=== PATIENT | male | born 1945 | race Hispanic/Latino ===

== ENCOUNTER 2018-01-04 13:33 | Emergency (ER) | payer OTHER ==
--- OUTSIDE RECORDS SUMMARY | 2018-01-04 13:36 | XMS REPORT ---
:1945 Author Organization [facility] Address [address] [place] [address] Care Team Providers Name Role Phone HECTOR MORE Unavailable Unavailable Problems This patient has no known problems. Allergies, Adverse Reactions, Alerts This patient has no known allergies or adverse reactions. Medications This patient has no known medications. Results Test Description Test Time Test Comments Text Results Atomic Results Result Comments BUNNY PETERSON, 2017-09-[address] FINAL REPORT PATIENT A-V GRAFT 14:11:00 tunneled dialysis ID: [id number] catheterReason for History: End-stage exam:->Clotted renal disease, fistula thrombosed left approximately AV fistula. PROCEDURE: Following informed written consent, the patient's left upper cavity and fistula site were prepped and draped in the usual sterile manner. 2% lidocaine was given locally for anesthesia. No conscious sedation was administered. Access was gained to the right upper extremity fistula using ultrasound guidance and a single site. AV fistulogram and central venography were performed through the micropuncture sheath. A Berenstein catheter and Glidewire were then used to traverse the cephalic vein and select the superior vena cava. The Glidewire exchanged the catheter for an Amplatz wire. A 7 Egyptian sheath was placed at the access site. Mechanical thrombectomy of the fistula was achieved using a Trerotola device and an eight 8 mm x 3 cm balloon. Repeat venography was performed. Eight and 10 mm balloon dilatation of residual stenoses described below was performed at at least four distinct locations along the margins of the patient's indwelling stents. Repeat venography was performed following balloon dilatation. The catheters and sheath were then removed and hemostasis achieved using a 2-0 chromic pursestring suture. Overall, the patient tolerated the procedure well without immediate complications and was discharged from the department in stable condition. FINDINGS: Ultrasound images of the left upper extremity fistula prior to percutaneous access demonstrates mostly occluded fistula with only a small residual patent component near the arterial anastomosis. A significant amount filling defect is seen within the fistula consistent with clot. Initial central venogram demonstrates patent central left subclavian, and brachiocephalic veins without central venous stenosis. Superior vena cava is also patent. Following mechanical thrombectomy of the fistula, fistula is recanalized with brisk flow. Moderate to high-grade focal marginal stenoses are seen on each side of the patient's existing Central left cephalic vein stent. Additionally, there are marginal stenoses on each side of the indwelling stents in the patient's primary draining cephalic vein more distally near the arterial anastomosis. Following balloon dilatation of these lesions, there is significant angiographic improvement in appearance and flow across the lesions without significant residual stenosis identified. IMPRESSION: 1. Successful uncomplicated mechanical thrombolysis of the patient's left upper extremity AV fistula. Marginal stenoses were seen on each side of the patient's indwelling cephalic vein stents, one proximal the other distal as described above. These lesions were treated using eight and 10 mm balloons without significant residual or complications. Total fluoroscopy time: 13.9 minutes. Estimated total patient dose reported as (Ka,r): 45 mGy Signed: Mariah [place] Verified Date/Time: 09/18/2017 14:11:58 Reading Location: [place] [address] Angio Body Reading Room -GLUCOSE METER 2017-09-17 13:43:00 Test Item Value Reference Range Comments POC-GLUCOSE METER (BEAKER) (test 76 mg/dL 70-[address] [facility] [address] [facility] zgym=4134) [facility] [address] HEMOGLOBIN [id number] 08:02:00 Test Item Value Reference Range Comments HEMOGLOBIN A1C (BEAKER) (test fsyx=581) 7.0 % 4.3-6.1 BASIC METABOLIC [id number] 07:34:00 Test Item Value Reference Range Comments SODIUM (BEAKER) (test 140 meq/L 136-145 nptc=779) POTASSIUM (BEAKER) (test 5.0 meq/L 3.5-5.1 zzqe=625) CHLORIDE (BEAKER) (test 101 meq/L 98-107 fbxb=410) CO2 (BEAKER) (test 22 meq/L 22-29 hqlp=016) BLOOD UREA NITROGEN 87 mg/dL 7-21 (BEAKER) (test mslz=904) CREATININE (BEAKER) (test 10.99 mg/dL 0.57-1.25 ahbi=261) GLUCOSE RANDOM (BEAKER) 87 mg/dL 70-105 (test lzlq=404) CALCIUM (BEAKER) (test 7.8 mg/dL 8.4-10.2 dtxo=120) EGFR (BEAKER) (test 5 mL/min/1.73 sq m ESTIMATED GFR IS NOT ttet=7314) ACCURATE CREATININE CLEARANCE IN PREDICTING GLOMERULAR FILTRATION RATE. ESTIMATED GFR IS NOT APPLICABLE FOR DIALYSIS PATIENTS. [id number] 07:28:00 Test Item Value Reference Range Comments PHOSPHORUS (BEAKER) (test vrgu=873) 6.0 mg/dL 2.3-4.7 [id number] 07:28:00 Test Item Value Reference Range Comments MAGNESIUM (BEAKER) (test ilap=841) 2.3 mg/dL 1.6-2.6 CALCIUM, [id number] 07:18:00 Test Item Value Reference Range Comments CALCIUM IONIZED (BEAKER) (test ysqk=045) 1.00 mmol/L 1.12-1.27 PH, BLOOD (BEAKER) (test fduk=0805) 7.27 HEPATITIS B SURFACE [id number] 07:11:00 Test Item Value Reference Range Comments HEPATITIS B SURFACE ANTIGEN (2) (BEAKER) (test Nonreactive Nonreactive otxr=2367) Pls add to specimen drawn earlier.POCT-GLUCOSE [id number] 07:06:00 Test Item Value Reference Range Comments POC-GLUCOSE METER (BEAKER) 118 mg/dL 70-[address] [facility] [address] [facility] (test gdiu=7417) [facility] [address] PROTHROMBIN [id number] 06:14:00 Test Item Value Reference Range Comments PROTIME (BEAKER) (test hmuw=792) 14.2 seconds 11.7-14.7 INR (BEAKER) (test coaz=060) 1.1 <=5.9 RECOMMENDED COUMADIN/WARFARIN INR THERAPY RANGESSTANDARD DOSE: 2.0 - 3.0 Includes: PROPHYLAXIS forvenous thrombosis, systemic embolization; TREATMENT for venous thrombosis and/or pulmonary embolus.HIGH RISK: Target INR is 2.5-3.5 for patients with mechanical heart valves.CBC W/PLT COUNT & AUTO [id number] 06:04:00 Test Item Value Reference Range Comments WHITE BLOOD CELL COUNT (BEAKER) (test thig=872) 5.7 K/ L 3.5-10.5 RED BLOOD CELL COUNT (BEAKER) (test rses=507) 3.78 M/ L 4.63-6.08 HEMOGLOBIN (BEAKER) (test ewvw=534) 13.0 GM/DL 13.7-17.5 HEMATOCRIT (BEAKER) (test mcth=469) 39.4 % 40.1-51.0 MEAN CORPUSCULAR VOLUME (BEAKER) (test ppym=921) 104.2 fL 79.0-92.2 MEAN CORPUSCULAR HEMOGLOBIN (BEAKER) (test 34.4 pg 25.7-32.2 gvlw=055) MEAN CORPUSCULAR HEMOGLOBIN CONC (BEAKER) (test 33.0 GM/DL 32.3-36.5 ysld=026) RED CELL DISTRIBUTION WIDTH (BEAKER) (test 14.1 % 11.6-14.4 zaly=409) PLATELET COUNT (BEAKER) (test alkv=995) 82 K/CU MM 150-450 MEAN PLATELET VOLUME (BEAKER) (test styj=582) 13.3 fL 9.4-12.4 NUCLEATED RED BLOOD CELLS (BEAKER) (test 0 /100 WBC 0-0 ispx=358) NEUTROPHILS RELATIVE PERCENT (BEAKER) (test 62 % dkid=158) LYMPHOCYTES RELATIVE PERCENT (BEAKER) (test 23 % xxte=424) MONOCYTES RELATIVE PERCENT (BEAKER) (test 11 % nogc=084) EOSINOPHILS RELATIVE PERCENT (BEAKER) (test 4 % jair=293) BASOPHILS RELATIVE PERCENT (BEAKER) (test 1 % mcei=608) NEUTROPHILS ABSOLUTE COUNT (BEAKER) (test 3.53 K/ L 1.78-5.38 fldh=502) LYMPHOCYTES ABSOLUTE COUNT (BEAKER) (test 1.30 K/ L 1.32-3.57 tehw=894) MONOCYTES ABSOLUTE COUNT (BEAKER) (test myro=227) 0.62 K/ L 0.30-0.82 EOSINOPHILS ABSOLUTE COUNT (BEAKER) (test 0.22 K/ L 0.04-0.54 getx=334) BASOPHILS ABSOLUTE COUNT (BEAKER) (test ckkn=502) 0.03 K/ L 0.01-0.08 IMMATURE GRANULOCYTES-RELATIVE PERCENT (BEAKER) 1 % 0-1 (test rboi=5283) POCT-GLUCOSE [id number] 22:23:00 Test Item Value Reference Range Comments POC-GLUCOSE METER (BEAKER) 185 mg/dL 70-110 TESTED AT [address] (test rmaj=0171) [place] [address] POCT-GLUCOSE [id number] 21:27:00 Test Item Value Reference Range Comments POC-GLUCOSE METER (BEAKER) 198 mg/dL 70-110 TESTED AT [address] (test xwgq=0081) [place] [address] POCT-GLUCOSE [id number] 17:43:00 Test Item Value Reference Range Comments POC-GLUCOSE METER (BEAKER) 164 mg/dL 70-110 TESTED AT [address] (test gcur=5794) [place] [address] HEPATITIS B SURFACE [id number] 15:14:00 Test Item Value Reference Range Comments HEPATITIS B SURFACE ANTIGEN (2) (BEAKER) (test Nonreactive Nonreactive gpjk=0692) Pls add to specimen drawn earlier.BASIC METABOLIC [id number] 13:34:00 Test Item Value Reference Range Comments SODIUM (BEAKER) (test 140 meq/L 136-145 xqag=379) POTASSIUM (BEAKER) (test 5.4 meq/L 3.5-5.1 ylwz=498) CHLORIDE (BEAKER) (test 101 meq/L 98-107 xrnu=953) CO2 (BEAKER) (test 19 meq/L 22-29 ymau=956) BLOOD UREA NITROGEN 123 mg/dL 7-21 (BEAKER) (test yich=191) CREATININE (BEAKER) (test 12.96 mg/dL 0.57-1.25 gmsb=512) GLUCOSE RANDOM (BEAKER) 79 mg/dL 70-105 (test kptg=345) CALCIUM (BEAKER) (test 7.9 mg/dL 8.4-10.2 hubz=009) EGFR (BEAKER) (test 4 mL/min/1.73 sq m ESTIMATED GFR IS NOT jmzo=1612) ACCURATE CREATININE CLEARANCE IN PREDICTING GLOMERULAR FILTRATION RATE. ESTIMATED GFR IS NOT APPLICABLE FOR DIALYSIS PATIENTS. [id number] 13:24:00 Test Item Value Reference Range Comments MAGNESIUM (BEAKER) (test dmcz=496) 2.3 mg/dL 1.6-2.6 [id number] 13:24:00 Test Item Value Reference Range Comments PHOSPHORUS (BEAKER) (test bkxh=914) 6.2 mg/dL 2.3-4.7 POCT-GLUCOSE [id number] 12:20:00 Test Item Value Reference Range Comments POC-GLUCOSE METER (BEAKER) 84 mg/dL 70-[address] [facility] [address] [facility] (test bwja=6883) [facility] [address] ANG, NON-TUNNELED CATH >5 Y.O. [id number] 11:23:00Reason for exam:-> please declot the AV fistula, if unable to do that he needs catheter exchangeFINAL REPORT Nontunneled dialysis catheter insertion, 09/16/2017. History: Left upper extremity AV fistula thrombosed. Modality: Fluoroscopy and sonography. Sedation: None. Supervisor Electronics Testing: Edgar Chandler MD. Contract Loader: None. Approach: Right internal jugular vein Estimated blood loss: < 5 cc. Specimen: None. Fluoroscopy Time : 0.4 min.Reference Air Kerma (Ka, r): 4.9 mGy. Technique: Informed written consent was obtained. Discussion of risks, benefits, and alternatives were made with the patient. The patient expressed understanding and agreed to proceed. A universal timeout was performed prior to starting the procedure. All elements maximal sterile barrier technique was utilized for this procedure, including utilization of sterile scrub solution for skin prep, a large sterile sheet to cover the areas of the patient that were notprepped, and hand hygiene, mask, head covering, and sterile gown for performing radiologist and scrub technologist. The skin was anesthetized with 2% lidocaine. Ultrasound evaluation showed a patent and compressible internal jugular vein, which was punctured under direct real-time ultrasound guidance with a micropuncture needle. An ultrasound image was saved to PACS. A microwire and sheath were placed. A 0.035 inch wire was placed through the sheath into the right atrium. The tract was serially dilated. The 15 cm Schon temporary dialysis catheter was placed over the wire into the vein. The ports were flushed and aspirated easily following placement. The catheter was sutured to the skin to secure its placement. Vital signs were monitored throughout the procedure by a nurse, and remained stable. The patient tolerated the procedure well and left the department in the same condition. Results: Spot radiograph of the chest demonstrates the new dialysis catheter to lie in the expected position with its tip overlying the superior right atrium. Impression: Successful, uncomplicated placement of a right internal jugular nontunneled dialysis catheter using sonographic and fluoroscopic guidance. Signed: Edgar Chandler MDReport Verified Date/Time: 2017 11:23:57 Reading Location: [place] [address] AngioBody Reading Room POCT- GLUCOSE [id number] 07:38:00 Test Item Value Reference Range Comments POC-GLUCOSE METER (BEAKER) 89 mg/dL 70-110 TESTED AT [address] (test rzbd=5495) [place] [address] PROTHROMBIN [id number] 05:19:00 Test Item Value Reference Range Comments PROTIME (BEAKER) (test cjaq=557) 14.8 seconds 11.7-14.7 INR (BEAKER) (test vnuh=339) 1.2 <=5.9 RECOMMENDED COUMADIN/WARFARIN INR THERAPY RANGESSTANDARD DOSE: 2.0 - 3.0 Includes: PROPHYLAXIS forvenous thrombosis, systemic embolization; TREATMENT for venous thrombosis and/or pulmonary embolus.HIGH RISK: Target INR is 2.5-3.5 for patients with mechanical heart valves.POCT-GLUCOSE [id number] 23:26:00 Test Item Value Reference Range Comments POC-GLUCOSE METER (BEAKER) 261 mg/dL 70-[address] [facility] [place] [facility] (test xvrq=8562) [place] [address]
--- OUTSIDE RECORDS SUMMARY | 2018-01-04 13:36 | XMS REPORT | Clinical Summary ---
:[address] [facility] Address [address] [place] [address] Phone Care Team Providers Name Role Phone Unavailable Primary Care Provider Unavailable Allergies No Known Allergies Current Medications Prescription Sig. Disp. Refills Start Date End Date Status carbidopa-levodopa Take 1 tablet by Active (SINEMET) 25-100 mg per mouth 2 (two) times tabletIndications: daily. Parkinsonism clopidogrel (PLAVIX) 75 Take 75 mg by mouth Active mg tablet daily. aspirin 81 MG EC tablet Take 81 mg by mouth Active daily. citalopram (CELEXA) 10 MG Take 10 mg by mouth Active tablet daily. esomeprazole (NEXIUM) 40 Take 40 mg by mouth Active mg packet every morning before breakfast. gabapentin (NEURONTIN) Take 100 mg by Active 100 MG capsule mouth 2 (two) times daily. pravastatin (PRAVACHOL) Take 40 mg by mouth Active 40 MG tablet daily. pregabalin (LYRICA) 50 MG Take 50 mg by mouth Active capsule daily. calcium acetate (PHOSLO) Take 667 mg by Active 667 mg capsule mouth daily. Active Problems Problem Noted Date Dialysis AV fistula malfunction ([facility]) 09/15/2017 ESRD (end stage renal disease) ([facility]) Encounters Date Type Specialty Care Team Description 09/15/2017 - Hospital Encounter General Internal Bakari, Malfunction of 09/17/2017 Medicine ella Gutierrez MD dialysis fistula, [place], initial encounter Kimberly Samuel, ([facility]);Essential hypertension;ESRD Iliana Cowart, (end stage renal MD disease) on dialysis ([facility]);Cdy-ohbdsuw-dca endent diabetes mellitus with neurological complications ([facility]);Other hyperlipidemia;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 Family History Medical History Relation Name Comments Diabetes Daughter Diabetes Daughter Diabetes Mother Hypertension Son Diabetes Son Relation Name Status Comments Daughter Daughter Mother Son Son Social History Tobacco Use Types Packs/Day Years Used Date Current Every Day Smoker Cigarettes 50 Smokeless Tobacco: Never Used Alcohol Use Drinks/Week oz/Week Comments No 20 years since last drink Sex Assigned at Date Recorded Not on file Last Filed Vital Signs Vital Sign Reading Time Taken Blood Pressure 120/64 09/17/2017 8:39 PM ACID PATROLLER Pulse 92 09/17/2017 8:39 PM ACID PATROLLER Temperature 36.6 C (97.8 F) 09/17/2017 8:39 PM ACID PATROLLER Respiratory Rate 19 09/17/2017 8:39 PM ACID PATROLLER Oxygen Saturation 94% 09/17/2017 8:39 PM ACID PATROLLER Inhaled Oxygen Concentration - - Weight 80.9 kg (178 lb 4 oz) 09/17/2017 6:00 AM ACID PATROLLER Height 170.2 cm (5' 7") 09/17/2017 6:00 AM ACID PATROLLER Body Mass Index 27.92 09/17/2017 6:00 AM ACID PATROLLER Plan of Treatment Not on file Results EKG-SCANNED (09/19/2017 9:40 AM)RHYTHM STRIP - SCAN (09/19/2017 9:40 AM) Hemodialysis (09/17/2017 7:54 PM) Narrative Elan Valdez RN 09/17/20177:54 PM Lab Results Component Value Date WBC 5.7 09/17/2017 HGB 13.0 (L) 09/17/2017 HCT 39.4 (L) 09/17/2017 MCV 104.2 (H) 09/17/2017 PLT 82 (L) 09/17/2017 Lab Results Component Value Date GLUCOSE 87 09/17/2017 CALCIUM 7.8 (L) 09/17/2017 NA 140 09/17/2017 K 5.0 09/17/2017 CO2 22 09/17/2017 CL 101 09/17/2017 BUN 87 (H) 09/17/2017 CREATININE 10.99 (H) 09/17/2017 Lab Results Component Value Date HEPBSAG Nonreactive 09/17/2017 Vitals: 09/17/17 1905 BP: 105/67 Pulse: 86 Resp: 16 Temp: 97.8 F (36.6 C) SpO2: HD x 3.5hrs. UF net 2L. Treatment tolerated well. Acute Dialysis cath removed, pressure applied, dressing applied. Report given Charles Franco POC-Glucose meter (09/17/2017 1:41 PM)Only the most recent of8 resultswithin the time period is included. Component Value Ref Range POC-Glucose Meter 76Comment: TESTED AT [facility] [address] [place] [address] 70 - 110 mg/dL [address] Specimen Performing Laboratory Blood [facility] [address] [address] IR Thromobolysis/Declot AV Fistula/Graft (09/17/2017 12:07 PM) Specimen Performing Laboratory GE RIS Narrative FINAL REPORT History: End-stage renal disease, thrombosed left approximately AV fistula. PROCEDURE: Following [...] catheter for an Amplatz wire. A 7 [place] Sudanese sheath was placed at the access site. [...] reported as (Ka,r): 45 mGy Signed: Mariah Choi MD Report Verified Date/Time:09/18/2017 14:11:58 Reading Location: [place] [id number] Angio Body Reading Room Procedure Note Interface, External Ris In - 09/18/2017 2:14 PM ACID PATROLLER FINAL REPORT History: End-stage renal disease, thrombosed left approximately AV fistula. PROCEDURE: Following [...] catheter for an Amplatz wire. A 7 [place] Sudanese sheath was placed at the access site. [...] reported as (Ka,r): 45 mGy Signed: Mariah Choi MD Report Verified Date/Time: 09/18/2017 14:11:58 Reading Location: [place] [address] Angio Body Reading Room Calcium, Ionized (09/17/2017 5:40 AM) Component Value Ref Range Calcium, Ion 1.00 (L) 1.12 - 1.27 mmol/L pH, Blood 7.27 Specimen Performing Laboratory Blood - Arm, Right [address] [address] CBC with platelet count + automated diff (09/17/2017 5:40 AM) Component Value Ref Range WBC 5.7 3.5 - 10.5 K/L RBC 3.78 (L) 4.63 - 6.08 M/L Hemoglobin 13.0 (L) 13.7 - 17.5 GM/DL Hematocrit 39.4 (L) 40.1 - 51.0 % MCV 104.2 (H) 79.0 - 92.2 fL MCH 34.4 (H) 25.7 - 32.2 pg MCHC 33.0 32.3 - 36.5 GM/DL RDW 14.1 11.6 - 14.4 % Platelets 82 (L) 150 - 450 K/CU MM MPV 13.3 (H) 9.4 - 12.4 fL nRBC 0 0 - 0 /100 WBC % Neutros 62 % % Lymphs 23 % % Monos 11 % % Eos 4 % % Baso 1 % # Neutros 3.53 1.78 - 5.38 K/L # Lymphs 1.30 (L) 1.32 - 3.57 K/L # Monos 0.62 0.30 - 0.82 K/L # Eos 0.22 0.04 - 0.54 K/L # Baso 0.03 0.01 - 0.08 K/L Immature Granulocytes-Relative 1 0 - 1 % Specimen Performing Laboratory Blood - Arm, [address] [address] Hepatitis B surface antigen (09/17/2017 5:40 AM)Only the most recent of2 resultswithin the time period is included. Component Value Ref Range hepatitis B Surface Ag Nonreactive Nonreactive Specimen Performing Laboratory Blood - Arm, [place] [address] Narrative Pls add to specimen drawn earlier. Prothrombin time/INR (09/17/2017 5:40 AM)Only the most recent of2 resultswithin the time period is included. Component Value Ref Range Protime 14.2 11.7 - 14.7 seconds INR 1.1 <=5.9 Specimen Performing Laboratory Blood - Arm, [address] [address] Narrative RECOMMENDED COUMADIN/WARFARIN INR THERAPY RANGES STANDARD DOSE: 2.0 - 3.0 Includes: PROPHYLAXIS for venous thrombosis, systemic embolization; TREATMENT for venous thrombosis and/or pulmonary embolus. HIGH RISK: Target INR is 2.5-3.5 for patients with mechanical heart valves. CBC with platelet count + automated diff (09/17/2017 5:40 AM) Specimen Performing Laboratory Blood Narrative The following orders were created for panel order CBC with platelet count + automated diff. Procedure Abnormality Status --------- ------ CBC with platelet count ...[[id number]]AbnormalFinal result Please view results for these tests on the individual orders. Phosphorus (09/17/2017 5:40 AM)Only the most recent of2 resultswithin the time period is included. Component Value Ref Range Phosphorus 6.0 (H) 2.3 - 4.7 mg/dL Specimen Performing Laboratory Blood - Arm, [address] [address] Magnesium (09/17/2017 5:40 AM)Only the most recent of2 resultswithin the time period is included. Component Value Ref Range Magnesium 2.3 1.6 - 2.6 mg/dL Specimen Performing Laboratory Blood - Arm, [address] [address] Hemoglobin A1c (09/17/2017 5:40 AM) Component Value Ref Range Hemoglobin A1C 7.0 (H) 4.3 - 6.1 % Specimen Performing Laboratory Blood - Arm, [address] [address] Basic metabolic panel (09/17/2017 5:40 AM)Only the most recent of2 resultswithin the time period is included. Component Value Ref Range Sodium 140 136 - 145 meq/L Potassium 5.0 3.5 - 5.1 meq/L Chloride 101 98 - 107 meq/L CO2 22 22 - 29 meq/L BUN 87 (H) 7 - 21 mg/dL Creatinine 10.99 (H) 0.57 - 1.25 mg/dL Glucose 87 70 - 105 mg/dL Calcium 7.8 (L) 8.4 - 10.2 mg/dL EGFR 5Comment: ESTIMATED GFR IS NOT ACCURATE CREATININE mL/min/1.73 sq m CLEARANCE IN PREDICTING GLOMERULAR FILTRATION RATE. ESTIMATED GFR IS NOT APPLICABLE FOR DIALYSIS PATIENTS. Specimen Performing Laboratory Blood - Arm, [address] [address] IR Non-tunneled Catheter - Central Line/Kieran Temporary (09/16/2017 11:19 AM) Specimen Performing Laboratory GE RIS Narrative FINAL REPORT Nontunneled dialysis catheter insertion, 09/16/2017. History: Left upper extremity AV fistula thrombosed. Modality: Fluoroscopy and sonography. Sedation: None. Licensed Optical Dispenser:Edgar Chandler MD. Molded Candles Wicker:None. Approach: Right internal jugular vein Estimated blood loss:< 5 cc. Specimen: None. Fluoroscopy Time: 0.4 min. Reference Air Kerma (Ka, r): 4.9 mGy. Technique: Informed written consent was obtained. Discussion of risks, benefits, and alternatives were made with the patient. The patient expressed understanding and agreed to proceed.A universal timeout was performed prior to starting the procedure.All elements maximal sterile barrier technique was utilized for this procedure, including utilization of sterile scrub solution for skin prep, a large sterile sheet to cover the areas of the patient that were not prepped, and hand hygiene, mask, head covering, and sterile gown for performing radiologist and scrub technologist. The skin was anesthetized with 2% lidocaine. Ultrasound evaluation showed a patent and compressible internal jugular vein, which was punctured under direct real-time ultrasound guidance with a micropuncture needle.An ultrasound image was saved to PACS. A microwire and sheath were placed. A 0.035 inch wire was placed through the sheath into the right atrium. The tract was serially dilated. The 15 cm Schon temporary dialysis catheter was placed over the wire into the vein.The ports were flushed and aspirated easily following placement.The catheter was sutured to the skin to secure its placement.Vital signs were monitored throughout the procedure by a nurse, and remained stable.The patient tolerated the procedure well and left the department in the same condition. Results:Spot radiograph of the chest demonstrates the new dialysis catheter to lie in the expected position with its tip overlying the superior right atrium. Impression: Successful, uncomplicated placement of a right internal jugular nontunneled dialysis catheter using sonographic and fluoroscopic guidance. Signed: Edgar Chandler MD Report Verified Date/Time:09/16/2017 11:23:57 Reading Location: [place] [address] Angio Body Reading Room Procedure Note Interface, External Ris In - 09/16/2017 11:26 AM ACID PATROLLER FINAL REPORT Nontunneled dialysis catheter insertion, 09/16/2017. History: Left upper extremity AV fistula thrombosed. Modality: Fluoroscopy and sonography. Sedation: None. Licensed Optical Dispenser: Edgar Chandler MD. Molded Candles Wicker: None. Approach: Right internal jugular vein Estimated blood loss: < 5 cc. Specimen: None. Fluoroscopy Time: 0.4 min. Reference Air Kerma (Ka, r): 4.9 mGy. Technique: [...] the areas of the patient that were not prepped, and hand hygiene, mask, head covering, and [...] sonographic and fluoroscopic guidance. Signed: Edgar Chandler MD Report Verified Date/Time: 09/16/2017 11:23:57 Reading Location: [place] [address] Angio Body Reading Room after 01/03/2017
--- NOTE | 2018-01-04 15:28 | RAD REPORT ---
EXAM DESCRIPTION: RAD - Chest Single View - 01/04/2018 2:48 pm CLINICAL HISTORY: Chest pain, bleeding from right-sided port site COMPARISON: September 14 TECHNIQUE: AP portable chest image was obtained 1430 hours . FINDINGS: Lung volumes are low accentuating heart, vasculature and lung markings. This could mask th e earliest stages of an interstitial edema or infiltrate process. No peripheral consolidation or mass . No diffuse pulmonary edema at this time. Trachea is midline. Heart size is normal. Vasculature is a ccentuated by portable technique and shallow inspiration. No measurable pleural effusion and no pneum othorax. No gross bony abnormality seen. No acute aortic findings suspected. IMPRESSION: Limited shallow inspiration not significantly different from prior imaging.
--- NOTE | 2018-01-04 15:53 | EDPHYS ---
Physician Documentation [facility] Name: Nadir Mendez Age: 72 yrs Sex: Male : 1945 Arrival Date: 01/04/2018 Time: 13:37 Bed 16 Private MD: Ganesh Bauman ED Physician Mansoor Villavicencio HPI: 01/04 14:25 This 72 yrs old Male presents to ER via Ambulatory with complaints of Dialysis cp site problem. 14:25 Patient presents to ED for recheck of: right upper chest. cp 14:25 Patient reports having port removed from right upper chest 2 days ago. Requesting check cp of wound. Historical: - Allergies: 13:43 No Known Drug Allergies; hj - Home Meds: 13:43 aspirin 81 mg Oral TbEC [Active]; calcium acetate 667 mg Oral cap [Active]; Calcium hj Carbonate Oral 2 tabs three times a day [Active]; carbidopa-levodopa 25-100 mg Oral tab [Active]; carvedilol 25 mg Oral tab 1 tab 2 times per day [Active]; Celexa 10 mg Oral tab 1 tab once daily [Active]; gabapentin 100 mg Oral cap 3 times per day [Active]; Hemocyte 324 mg (106 mg iron) Oral tab daily [Active]; Hemocyte-Plus 106 mg iron- 1 mg Oral cap 1 cap once daily [Active]; Nexium 20 mg Oral cpDR 1 cap once daily [Active]; Plavix 75 mg Oral tab 1 tab once daily [Active]; pravastatin 40 mg Oral tab 1 tab once daily [Active]; Tums 200 mg calcium (500 mg) Oral chew [Active]; - PMHx: 13:43 Diabetes - NIDDM; Dialysis; Hyperlipidemia; Hypertension; Renal Disease; Tues, Thurs, hj Sat; Ulcers; - PSHx: 13:43 port placement; fistula; hj - Immunization history:: Adult Immunizations unknown. - Social history:: Smoking status: Patient/guardian denies using tobacco. ROS: 14:30 Constitutional: Negative for body aches, chills, fever, poor PO intake. cp 14:30 Neck: Negative for pain with movement, pain at rest, stiffness. cp 14:30 Cardiovascular: Negative for chest pain, palpitations. 14:30 Respiratory: Negative for cough, shortness of breath, wheezing. 14:30 Abdomen/GI: Negative for abdominal pain, nausea, vomiting, and diarrhea. 14:30 Skin: Negative for erythema. 14:30 All other systems are negative. Exam: 14:35 Constitutional: The patient appears in no acute distress, alert, awake, non-toxic, well cp developed, well nourished. 14:35 Head/Face: Normocephalic, atraumatic. cp 14:35 Eyes: Periorbital structures: appear normal, Conjunctiva: normal, no exudate, no injection, Lids and lashes: appear normal, bilaterally. 14:35 ENT: External ear(s): are unremarkable, Nose: is normal, Mouth: is normal. 14:35 Chest/axilla: Inspection: noted suture in place right upper chest wall, minimal bleeding noted, minimal swelling, non-tender. 14:35 Cardiovascular: Rate: normal. 14:35 Respiratory: the patient does not display signs of respiratory distress, Respirations: normal, no use of accessory muscles, no retractions, no splinting, no tachypnea, labored breathing, is not present, Breath sounds: are clear throughout, no decreased breath sounds, no stridor, no wheezing. 14:35 Abdomen/GI: Exam negative for discomfort, distension, guarding, Inspection: abdomen appears normal. 14:35 Skin: cellulitis, is not appreciated, no rash present. Vital Signs: 13:43 Pulse 78; Resp 18; Temp 98.6; Pulse Ox 100% on R/A; Weight 72.57 kg; Height 5 ft. 6 in. (167.64 cm); 14:48 BP 109 / 70; Pulse 77; Resp 17 S; Pulse Ox 99% on R/A; sg 13:43 Body Mass Index 25.82 (72.57 kg, 167.64 cm) MDM: 14:14 Patient medically screened. cp 15:52 Data reviewed: vital signs, nurses notes, radiologic studies, plain films. cp 15:52 Differential diagnosis: cellulitis, retained foreign body, abscess. Test cp interpretation: by ED physician or midlevel provider: plain radiologic studies. Counseling: I had a detailed discussion with the patient and/or guardian regarding: the historical points, exam findings, and any diagnostic results supporting the discharge/admit diagnosis, radiology results, the need for outpatient follow up, a family practitioner, to return to the emergency department if symptoms worsen or persist or if there are any questions or concerns that arise at home. ED course: VSS. Dressing changed. Will discharge to home for continued monitoring. 01/04 14:21 Order name: XRAY Chest (1 view); Complete Time: 15:52 cp Administered Medications: No medications were administered Disposition: 17:00 Chart complete. cp Disposition: 01/04/18 15:53 Discharged to Home. Impression: Encounter for attention to dressings, sutures and drains. - Condition is Stable. - Discharge Instructions: Wound Check. - Medication Reconciliation Form, Thank You Letter, Antibiotic Education, Prescription Opioid Use form. - Follow up: Private Physician; When: 2 - 3 days; Reason: Recheck today's complaints. - Problem is new. - Symptoms have improved. Addendum: 01/12/2018 19:57 Co-signature as Attending Physician, Mansoor Villavicencio MD I agree with the assessment and k dr plan of care. Signatures: Dispatcher [employer] EDMS Priyank Owens RN RN sg Rittger, Kevin, MD MD [facility] Alphonse Carney RN RN Mahendra Henry PA PA cp Corrections: (The following items were deleted from the chart) 01/04 16:00 15:53 01/04/2018 15:53 Discharged to Home. Impression: Encounter for attention to sg dressings, sutures and drains. Condition is Stable. Forms are Medication Reconciliation Form, Thank You Letter, Antibiotic Education, Prescription Opioid Use. Follow up: Private Physician; When: 2 - 3 days; Reason: Recheck today's complaints. Problem is new. Symptoms have improved. cp
--- NOTE | 2018-01-04 15:53 | ER ---
Nurse's Notes [facility] Name: Nadir Mendez Age: 72 yrs Sex: Male : 1945 Arrival Date: 01/04/2018 Time: 13:37 Bed 16 Private MD: Ganesh Bauman Diagnosis: Encounter for attention to dressings, sutures and drains Presentation: 01/04 13:38 Presenting complaint: Patient states: Sunday, they went to [facility], for the hj removal of port and yesterday it was bleeding (R upper chest port; i want to have it checked;. Transition of care: patient was not received from another setting of care. Onset of symptoms was January 04, 2018. Initial Sepsis Screen: Does the patient meet any 2 criteria? No. Patient's initial sepsis screen is negative. Does the patient have a suspected source of infection? No. Patient's initial sepsis screen is negative. Care prior to arrival: None. 13:38 Method Of Arrival: Ambulatory 13:38 Acuity: ASTER 4 hj Triage Assessment: 13:43 General: Appears in no apparent distress. uncomfortable, Behavior is calm, cooperative, hj appropriate for age. Pain:. Historical: - Allergies: 13:43 No Known Drug Allergies; hj - Home Meds: 13:43 aspirin 81 mg Oral TbEC [Active]; calcium acetate 667 mg Oral cap [Active]; Calcium hj Carbonate Oral 2 tabs three times a day [Active]; carbidopa-levodopa 25-100 mg Oral tab [Active]; carvedilol 25 mg Oral tab 1 tab 2 times per day [Active]; Celexa 10 mg Oral tab 1 tab once daily [Active]; gabapentin 100 mg Oral cap 3 times per day [Active]; Hemocyte 324 mg (106 mg iron) Oral tab daily [Active]; Hemocyte-Plus 106 mg iron- 1 mg Oral cap 1 cap once daily [Active]; Nexium 20 mg Oral cpDR 1 cap once daily [Active]; Plavix 75 mg Oral tab 1 tab once daily [Active]; pravastatin 40 mg Oral tab 1 tab once daily [Active]; Tums 200 mg calcium (500 mg) Oral chew [Active]; - PMHx: 13:43 Diabetes - NIDDM; Dialysis; Hyperlipidemia; Hypertension; Renal Disease; Tues, [place], hj Sat; Ulcers; - PSHx: 13:43 port placement; fistula; hj - Immunization history:: Adult Immunizations unknown. - Social history:: Smoking status: Patient/guardian denies using tobacco. Screenin:55 Abuse screen: Denies threats or abuse. Denies injuries from another. Nutritional sg screening: No deficits noted. Tuberculosis screening: No symptoms or risk factors identified. Never had TB. Fall Risk None identified. No fall in past 12 months (0 pts). Assessment: 14:45 General: Appears in no apparent distress. comfortable, unkempt, well developed, well sg nourished, Behavior is calm, cooperative, appropriate for age. Pain: Denies pain. Neuro: No deficits noted. Cardiovascular: Heart tones S1 S2 present Capillary refill is brisk in bilateral fingers Patient's skin is warm and dry. Respiratory: Airway is patent Respiratory effort is even, unlabored, Respiratory pattern is regular, symmetrical. GI: No signs and/or symptoms were reported involving the gastrointestinal system. : No signs and/or symptoms were reported regarding the genitourinary system. EENT: No signs and/or symptoms were reported regarding the EENT system. Derm: Skin is intact, Skin is dry, Skin is normal, Skin temperature is warm. Musculoskeletal: No signs and/or symptoms reported regarding the musculoskeletal system. Vital Signs: 13:43 Pulse 78; Resp 18; Temp 98.6; Pulse Ox 100% on R/A; Weight 72.57 kg; Height 5 ft. 6 in. (167.64 cm); 14:48 BP 109 / 70; Pulse 77; Resp 17 S; Pulse Ox 99% on R/A; sg 13:43 Body Mass Index 25.82 (72.57 kg, 167.64 cm) ED Course: 13:37 Patient arrived in ED. mr 13:38 Ganesh Bauman MD is Private Physician. mr 13:41 Triage completed. hj 13:43 Arm band placed on right wrist. hj 14:14 Mahendra Henry PA is PHCP. cp 14:14 Mansoor Villavicencio MD is Attending Physician. cp 14:46 X-ray completed. Portable x-ray completed in exam room. Patient tolerated procedure jb2 well. 14:47 Priyank Owens, RN is Primary Nurse. sg 14:48 XRAY Chest (1 view) In Process Unspecified. EDMS 15:15 Patient has correct armband on for positive identification. Bed in low position. Call sg light in reach. Pulse ox on. NIBP on. Warm blanket given. Head of bed elevated. 15:50 No provider procedures requiring assistance completed. Patient did not have IV access sg during this emergency room visit. 15:51 Wound care: to laceration repair, stitches located on right clavicle. sg Administered Medications: No medications were administered Outcome: 15:53 Discharge ordered by MD. cp 15:55 Discharged to home via wheelchair, with family. sg 15:55 Condition: good 15:55 Discharge instructions given to patient, caretaker grounds, Instructed on discharge instructions, follow up and referral plans. safety practices, wound care, Demonstrated understanding of instructions, follow-up care, wound care. 16:00 Patient left the ED. sg Signatures: Dispatcher [employer] EDMS Priyank Owens RN RN sg RiveraDonya mr GuzmanHans jb2 Alphonse Carney RN RN hj Page, Corey, PA PA cp Corrections: (The following items were deleted from the chart) 14:11 13:38 Acuity: ASTER 3 yuli roldan
[2018-01-04 16:03] VITALS: TEMP 98.6
[2018-01-04 16:04] VITALS: BP 109/70; O2SAT 99
== END 2018-01-04 16:00 | disposition home or self-care (01) ==
LOC: ER 13:33
DX: Z48.00 Encounter for change or removal of nonsurgical wound dressing (principal); E11.9 Type 2 diabetes mellitus without complications; E78.5 Hyperlipidemia, unspecified; I10 Essential (primary) hypertension; N28.9 Disorder of kidney and ureter, unspecified; Z99.2 Dependence on renal dialysis
CPT/HCPCS: 71045; 99284

== ENCOUNTER 2018-03-30 11:43 | Inpatient (IN) | payer OTHER ==
--- OUTSIDE RECORDS SUMMARY | 2018-03-30 11:46 | XMS REPORT | Clinical Summary ---
:1945 Author Organization [facility] Address [address] [place] [address] Phone Care Team Providers Name Role Phone [...] Problem Noted Date Dialysis AV fistula malfunction ([facility]) 09/15/2017 ESRD (end stage renal disease) ([facility]) Encounters Date Type Specialty Care Team Description 09/15/2017 - Hospital Encounter General Internal Bakari, Malfunction of 09/17/2017 Medicine ella Gutierrez MD dialysis fistula, [place], initial encounter Kimberly Samuel, ([facility]);Essential hypertension;ESRD Iliana Cowart, (end stage renal MD disease) on dialysis ([facility]);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 ([facility]);Other hyperlipidemia;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 Family History Medical History Relation Name Comments [...] Taken Blood Pressure 120/64 09/17/2017 8:39 PM [employer] Pulse 92 09/17/2017 8:39 PM [employer] Temperature 36.6 C (97.8 F) 09/17/2017 8:39 PM [employer]IC Respiratory Rate 19 09/17/2017 8:39 PM [employer]MENT [employer]IC Oxygen Saturation 94% 09/17/2017 8:39 PM [employer]IC Inhaled Oxygen Concentration - - Weight 80.9 kg (178 lb 4 oz) 09/17/2017 6:00 AM [employer]IC Height 170.2 cm (5' 7") 09/17/2017 6:00 AM [employer] E[employer]MENT MECH[employer]IC Body Mass Index 27.92 09/17/2017 6:00 AM [employer]ING EQU[employer]MENT MECH[employer]IC Plan of Treatment Not on file Results [...] Ref Range POC-Glucose Meter 76Comment: TESTED AT [facility] [address] [place] [address] 70 - 110 mg/dL [id number] Specimen Performing Laboratory Blood [facility] [address] [address] IR Thromobolysis/Declot AV Fistula/Graft (09/17/2017 12:07 PM) [...] catheter for an Amplatz wire. A 7 [place] sheath was placed at the access site. [...] MD Report Verified Date/Time:09/18/2017 14:11:58 Reading Location: [place] [id number] Angio Body Reading Room Procedure Note Interface, External Ris In - 09/18/2017 2:14 PM [employer]IC FINAL REPORT History: End-stage renal disease, thrombosed [...] catheter for an Amplatz wire. A 7 [place] sheath was placed at the access site. [...] Report Verified Date/Time: 09/18/2017 14:11:58 Reading Location: [place] [address] Angio Body Reading Room Calcium, Ionized (09/17/2017 5:40 AM) Component Value Ref Range Calcium, Ion 1.00 (L) 1.12 - 1.27 mmol/L pH, Blood 7.27 Specimen Performing Laboratory Blood - Arm, Right [address] [address] CBC with platelet count + automated diff [...] % Specimen Performing Laboratory Blood - Arm, [address] [address] Hepatitis B surface antigen (09/17/2017 5:40 AM)Only the most recent of2 resultswithin the time period is included. Component Value Ref Range hepatitis B Surface Ag Nonreactive Nonreactive Specimen Performing Laboratory Blood - Arm, [place] [address] Narrative Pls add to specimen drawn earlier. Prothrombin time/INR (09/17/2017 5:40 AM)Only the most recent of2 resultswithin the time period is included. Component Value Ref Range Protime 14.2 11.7 - 14.7 seconds INR 1.1 <=5.9 Specimen Performing Laboratory Blood - Arm, [place] [address] Narrative RECOMMENDED COUMADIN/WARFARIN INR THERAPY RANGES STANDARD [...] Status --------- ------ CBC with platelet count ...[[id number]]AbnormalFinal result Please view results for these tests on the individual orders. Phosphorus (09/17/2017 5:40 AM)Only the most recent of2 resultswithin the time period is included. Component Value Ref Range Phosphorus 6.0 (H) 2.3 - 4.7 mg/dL Specimen Performing Laboratory Blood - Arm, [address] [address] Magnesium (09/17/2017 5:40 AM)Only the most recent of2 resultswithin the time period is included. Component Value Ref Range Magnesium 2.3 1.6 - 2.6 mg/dL Specimen Performing Laboratory Blood - Arm, [address] [address] Hemoglobin A1c (09/17/2017 5:40 AM) Component Value Ref Range Hemoglobin A1C 7.0 (H) 4.3 - 6.1 % Specimen Performing Laboratory Blood - Arm, [address] [address] Basic metabolic panel (09/17/2017 5:40 AM)Only the [...] PATIENTS. Specimen Performing Laboratory Blood - Arm, [address] [address] IR Non-tunneled Catheter - Central Line/Kieran Temporary (09/16/2017 11:19 AM) Specimen Performing Laboratory GE RIS Narrative FINAL REPORT Nontunneled dialysis catheter insertion, 09/16/2017. History: Left upper extremity AV fistula thrombosed. Modality: Fluoroscopy and sonography. Sedation: None. Mini Shifter:Edgar Chandler MD. Greige Mender:None. Approach: Right internal jugular vein Estimated blood [...] MD Report Verified Date/Time:09/16/2017 11:23:57 Reading Location: [place] [address] Angio Body Reading Room Procedure Note Interface, External Ris In - 09/16/2017 11:26 AM [employer]ING [employer]CH[employer]IC FINAL REPORT Nontunneled dialysis catheter insertion, 09/16/2017. History: Left upper extremity AV fistula thrombosed. Modality: Fluoroscopy and sonography. Sedation: None. Mini Shifter: Edgar Chandler MD. Greige Mender: None. Approach: Right internal jugular vein Estimated [...] Report Verified Date/Time: 09/16/2017 11:23:57 Reading Location: [place] [address] Angio Body Reading Room after 03/29/2017
--- OUTSIDE RECORDS SUMMARY | 2018-03-30 11:46 | XMS REPORT ---
:1945 [facility] [address] [place] [address] Care Team Providers Name Role Phone ANN MORE Unavailable Unavailable Problems This patient has no known problems. Allergies, Adverse Reactions, Alerts This patient has no known allergies or adverse reactions. Medications This patient has no known medications. Results Test Description Test Time Test Comments Text Results Atomic Results Result Comments BUNNY PETERSON, 2017-09-[address] FINAL REPORT PATIENT A-V GRAFT 14:11:00 tunneled dialysis ID: [id number] catheterReason for History: End-stage exam:->Clotted fistula renal disease, thrombosed left approximately AV fistula. [...] catheter for an Amplatz wire. A 7 Serbian sheath was placed at the access site. [...] as (Ka,r): 45 mGy Signed: Mariah Choi Verified Date/Time: 09/18/2017 14:11:58 Reading Location: [place] [address] Angio Body Reading Room -GLUCOSE METER 2017-09-17 13:43:00 Test Item Value Reference Range Comments POC-GLUCOSE METER (BEAKER) (test 76 mg/dL 70-110 TESTED AT [facility] [address] [facility] kaus=[id number]) [facility] [address] HEMOGLOBIN [id number] 08:02:00 Test Item Value Reference Range Comments HEMOGLOBIN A1C (BEAKER) (test yqoo=659) 7.0 % 4.3-6.1 BASIC METABOLIC [id number] 07:34:00 Test Item Value Reference Range Comments SODIUM (BEAKER) (test 140 meq/L 136-145 xwbo=158) POTASSIUM (BEAKER) (test 5.0 meq/L 3.5-5.1 fvkq=485) CHLORIDE (BEAKER) (test 101 meq/L 98-107 gazg=242) CO2 (BEAKER) (test 22 meq/L 22-29 hmcv=042) BLOOD UREA NITROGEN 87 mg/dL 7-21 (BEAKER) (test dtng=039) CREATININE (BEAKER) (test 10.99 mg/dL 0.57-1.25 rsso=727) GLUCOSE RANDOM (BEAKER) 87 mg/dL 70-105 (test ucom=817) CALCIUM (BEAKER) (test 7.8 mg/dL 8.4-10.2 cdnp=212) EGFR (BEAKER) (test 5 mL/min/1.73 sq m ESTIMATED GFR IS NOT hcmf=2854) ACCURATE CREATININE CLEARANCE IN PREDICTING GLOMERULAR FILTRATION RATE. ESTIMATED GFR IS NOT APPLICABLE FOR DIALYSIS PATIENTS. [id number] 07:28:00 Test Item Value Reference Range Comments PHOSPHORUS (BEAKER) (test bryt=235) 6.0 mg/dL 2.3-4.7 [id number] 07:28:00 Test Item Value Reference Range Comments MAGNESIUM (BEAKER) (test xxhn=871) 2.3 mg/dL 1.6-2.6 CALCIUM, [id number] 07:18:00 Test Item Value Reference Range Comments CALCIUM IONIZED (BEAKER) (test ngyy=738) 1.00 mmol/L 1.12-1.27 PH, BLOOD (BEAKER) (test hwbo=9399) 7.27 HEPATITIS B SURFACE [id number] 07:11:00 Test Item Value Reference Range Comments HEPATITIS B SURFACE ANTIGEN (2) (BEAKER) (test Nonreactive Nonreactive zmda=6855) Pls add to specimen drawn earlier.POCT-GLUCOSE [id number] 07:06:00 Test Item Value Reference Range Comments POC-GLUCOSE METER (BEAKER) 118 mg/dL 70-110 TESTED AT [facility] [address] [facility] (test puhv=6860) [facility] [address] PROTHROMBIN [id number] 06:14:00 Test Item Value Reference Range Comments PROTIME (BEAKER) (test uaqk=822) 14.2 seconds 11.7-14.7 INR (BEAKER) (test bein=765) 1.1 <=5.9 RECOMMENDED COUMADIN/WARFARIN INR THERAPY RANGESSTANDARD DOSE: 2.0 - 3.0 Includes: PROPHYLAXIS forvenous thrombosis, systemic embolization; TREATMENT for venous thrombosis and/or pulmonary embolus.HIGH RISK: Target INR is 2.5-3.5 for patients with mechanical heart valves.CBC W/PLT COUNT & AUTO [id number] 06:04:00 Test Item Value Reference Range Comments WHITE BLOOD CELL COUNT (BEAKER) (test clmm=174) 5.7 K/ L 3.5-10.5 RED BLOOD CELL COUNT (BEAKER) (test isgf=551) 3.78 M/ L 4.63-6.08 HEMOGLOBIN (BEAKER) (test zhhq=832) 13.0 GM/DL 13.7-17.5 HEMATOCRIT (BEAKER) (test wyuk=734) 39.4 % 40.1-51.0 MEAN CORPUSCULAR VOLUME (BEAKER) (test knun=497) 104.2 fL 79.0-92.2 MEAN CORPUSCULAR HEMOGLOBIN (BEAKER) (test 34.4 pg 25.7-32.2 qbqz=618) MEAN CORPUSCULAR HEMOGLOBIN CONC (BEAKER) (test 33.0 GM/DL 32.3-36.5 nkto=250) RED CELL DISTRIBUTION WIDTH (BEAKER) (test 14.1 % 11.6-14.4 rmau=735) PLATELET COUNT (BEAKER) (test eypx=656) 82 K/CU MM 150-450 MEAN PLATELET VOLUME (BEAKER) (test puzz=725) 13.3 fL 9.4-12.4 NUCLEATED RED BLOOD CELLS (BEAKER) (test 0 /100 WBC 0-0 fazr=760) NEUTROPHILS RELATIVE PERCENT (BEAKER) (test 62 % wzfz=949) LYMPHOCYTES RELATIVE PERCENT (BEAKER) (test 23 % jjcc=796) MONOCYTES RELATIVE PERCENT (BEAKER) (test 11 % ukvh=392) EOSINOPHILS RELATIVE PERCENT (BEAKER) (test 4 % udsj=652) BASOPHILS RELATIVE PERCENT (BEAKER) (test 1 % deey=799) NEUTROPHILS ABSOLUTE COUNT (BEAKER) (test 3.53 K/ L 1.78-5.38 hqou=822) LYMPHOCYTES ABSOLUTE COUNT (BEAKER) (test 1.30 K/ L 1.32-3.57 bpuo=297) MONOCYTES ABSOLUTE COUNT (BEAKER) (test ecmi=299) 0.62 K/ L 0.30-0.82 EOSINOPHILS ABSOLUTE COUNT (BEAKER) (test 0.22 K/ L 0.04-0.54 smpz=096) BASOPHILS ABSOLUTE COUNT (BEAKER) (test mtkc=567) 0.03 K/ L 0.01-0.08 IMMATURE GRANULOCYTES-RELATIVE PERCENT (BEAKER) 1 % 0-1 (test jizk=6700) POCT-GLUCOSE [id number] 22:23:00 Test Item Value Reference Range Comments POC-GLUCOSE METER (BEAKER) 185 mg/dL 70-110 TESTED AT [place] [id number] [facility] (test efbo=4514) [place] [id number] POCT-GLUCOSE [id number] 21:27:00 Test Item Value Reference Range Comments POC-GLUCOSE METER (BEAKER) 198 mg/dL 70-110 TESTED AT [address] (test zrpk=3464) [place] [id number] POCT-GLUCOSE [id number] 17:43:00 Test Item Value Reference Range Comments POC-GLUCOSE METER (BEAKER) 164 mg/dL 70-110 TESTED AT [address] (test yonw=5188) [place] [id number] HEPATITIS B SURFACE [id number] 15:14:00 Test Item Value Reference Range Comments HEPATITIS B SURFACE ANTIGEN (2) (BEAKER) (test Nonreactive Nonreactive hjgx=1510) Pls add to specimen drawn earlier.BASIC METABOLIC [id number] 13:34:00 Test Item Value Reference Range Comments SODIUM (BEAKER) (test 140 meq/L 136-145 ibev=513) POTASSIUM (BEAKER) (test 5.4 meq/L 3.5-5.1 svot=984) CHLORIDE (BEAKER) (test 101 meq/L 98-107 tncd=582) CO2 (BEAKER) (test 19 meq/L 22-29 bmdt=219) BLOOD UREA NITROGEN 123 mg/dL 7-21 (BEAKER) (test mewv=237) CREATININE (BEAKER) (test 12.96 mg/dL 0.57-1.25 tgbh=002) GLUCOSE RANDOM (BEAKER) 79 mg/dL 70-105 (test rtbt=753) CALCIUM (BEAKER) (test 7.9 mg/dL 8.4-10.2 yqcp=236) EGFR (BEAKER) (test 4 mL/min/1.73 sq m ESTIMATED GFR IS NOT fpyl=8297) ACCURATE CREATININE CLEARANCE IN PREDICTING GLOMERULAR FILTRATION RATE. ESTIMATED GFR IS NOT APPLICABLE FOR DIALYSIS PATIENTS. [id number] 13:24:00 Test Item Value Reference Range Comments MAGNESIUM (BEAKER) (test vron=103) 2.3 mg/dL 1.6-2.6 [id number] 13:24:00 Test Item Value Reference Range Comments PHOSPHORUS (BEAKER) (test oihp=817) 6.2 mg/dL 2.3-4.7 POCT-GLUCOSE [id number] 12:20:00 Test Item Value Reference Range Comments POC-GLUCOSE METER (BEAKER) 84 mg/dL 70-110 TESTED AT [facility] [address] [facility] (test sdhp=0907) [facility] [address] ANG, NON-TUNNELED CATH >5 Y.O. [id number] 11:23:00Reason for exam:-> please declot the AV fistula, if unable to do that he needs catheter exchangeFINAL REPORT Nontunneled dialysis catheter insertion, 09/16/2017. History: Left upper extremity AV fistula thrombosed. Modality: Fluoroscopy and sonography. Sedation: None. Regional Sales Coordinator: Edgar Chandler MD. Pigment Grinder: None. Approach: Right internal jugular vein Estimated [...] MDReport Verified Date/Time: 2017 11:23:57 Reading Location: [place] [address] AngioBody Reading Room POCT- GLUCOSE [id number] 07:38:00 Test Item Value Reference Range Comments POC-GLUCOSE METER (BEAKER) 89 mg/dL 70-110 TESTED AT [address] (test gory=8484) [place] [id number] PROTHROMBIN [id number] 05:19:00 Test Item Value Reference Range Comments PROTIME (BEAKER) (test uotz=409) 14.8 seconds 11.7-14.7 INR (BEAKER) (test vddo=475) 1.2 <=5.9 RECOMMENDED COUMADIN/WARFARIN INR THERAPY RANGESSTANDARD DOSE: 2.0 - 3.0 Includes: PROPHYLAXIS forvenous thrombosis, systemic embolization; TREATMENT for venous thrombosis and/or pulmonary embolus.HIGH RISK: Target INR is 2.5-3.5 for patients with mechanical heart valves.POCT-GLUCOSE [id number] 23:26:00 Test Item Value Reference Range Comments POC-GLUCOSE METER (BEAKER) 261 mg/dL 70-110 TESTED AT [facility] (test mrks=7865) [place] [id number]
[2018-03-30 12:26] LABS: Arterial Blood Carboxyhemoglob 0.5 % (0-1.5); Blood Gas Oxyhemoglobin 95.7 % (94-97); Blood O2 Saturation 98.1 % (92-98.5)
--- NOTE | 2018-03-30 12:39 | RAD REPORT ---
EXAM DESCRIPTION: CT - Head Brain Wo Cont - 03/30/2018 12:09 pm CLINICAL HISTORY: Unresponsive/confusion COMPARISON: September 2017 TECHNIQUE: Computed axial tomography of the head was obtained. IV contrast was not requested. All CT scans are performed using dose optimization technique as appropriate and may include automated exposure control or mA/KV adjustment according to patient size. FINDINGS: An intracranial bleed is not seen . The ventricles are normal in caliber. No extra-axial fluid collection is noted. A 10 millimeter low-density area within the left basal gang johnny is unchanged compatible with an old lacunar infarction The right maxillary sinus is mostly opacified. Mild mucoperiosteal thickening of the left maxillary s inus is seen. Partial opacification of mastoids is seen. 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 If patient's symptoms persist MRI of the brain would be r ecommended.
[2018-03-30] MEDS ORDERED: NA CHLORIDE 0.9% 250 ML ONE (12:46)
--- NOTE | 2018-03-30 12:49 | RAD REPORT ---
EXAM DESCRIPTION: Anay Single View03/30/2018 12:19 pm CLINICAL HISTORY: sob COMPARISON: December 2017 FINDINGS: The lungs appear clear of acute infiltrate. The heart is normal size IMPRESSION: No acute abnormalities displayed
[2018-03-30 12:53] LABS: Protime INR 1.05
[2018-03-30 12:58] LABS: Absolute Lymphocytes (CBC) 0.5 K/uL (0.7-4.9); Absolute Monocytes 1.1 K/uL (0.1-1.3); Absolute Neutrophil 12.4 K/uL (1.8-8.0); Basophils % 0.3 % (0-1.3); Eosinophils % 0.4 % (0-4.4); Hematocrit 43.7 % (39.6-49.0); Lymphocytes % 3.7 % (15.3-44.8); MCV 102.4 fL (80-100); MPV 11.3 fL (7.6-11.3); Monocytes % 7.8 % (3.3-12.3); RBC Red Blood Cell Count 4.27 M/uL (4.33-5.43)
[2018-03-30 13:07] LABS: Albumin 3.2 g/dL (3.4-5.0); Bilirubin Direct 0.2 mg/dL (0-0.2); Bilirubin Total 0.6 mg/dL (0.2-1.0); Magnesium 2.1 mg/dL (1.8-2.4); Potassium 4.4 mmol/L (3.5-5.1); Protein, Total 7.9 g/dL (6.4-8.2)
[2018-03-30 13:33] LABS: Urine White Blood Cell Casts OK
[2018-03-30 13:34] LABS: Blood Morphology Comment NOT SEEN (NOT SEEN); Platelet Estimate DECR
[2018-03-30] MEDS ORDERED: VANCOMYCIN 1 GM/250 ML BAG ONE (13:44)
[2018-03-30] MEDS ORDERED: CEFAZOLIN/SWI 1gm 1 GM/10 ML SYR ONE (13:44)
--- NOTE | 2018-03-30 13:44 | EDPHYS ---
Physician Documentation [facility] Name: Nadir Mendez Age: 72 yrs Sex: Male : 1945 Arrival Date: 03/30/2018 Time: 11:[address] Private MD: ED Physician Deep Herzog HPI: 03/30 12:58 This 72 yrs old Male presents to ER via EMS with complaints of Unresponsive, jr8 Decreased LOC. 12:58 Onset: The symptoms/episode began/occurred acutely, today. Severity of symptoms: At jr8 their worst the symptoms were moderate in the emergency department the symptoms are unchanged. Patient's baseline: Neuro: alert and fully oriented, Motor: no deficits. The patient has not experienced similar symptoms in the past. The patient has not recently seen a physician. EMS stated that patient was at dialysis. Was normal before dialysis. Stated that post dialysis after being weighed became unresponsive. EMS stated that patient was hypotensive upon there arrival . Historical: - Allergies: 12:03 No Known Drug Allergies; tw2 - Home Meds: 12:03 aspirin 81 mg Oral TbEC [Active]; calcium acetate 667 mg Oral cap [Active]; Calcium tw2 Carbonate Oral 2 tabs three times a day [Active]; carbidopa-levodopa 25-100 mg Oral tab [Active]; carvedilol 25 mg Oral tab 1 tab 2 times per day [Active]; Celexa 10 mg Oral tab 1 tab once daily [Active]; gabapentin 100 mg Oral cap 3 times per day [Active]; Hemocyte 324 mg (106 mg iron) Oral tab daily [Active]; Hemocyte-Plus 106 mg iron- 1 mg Oral cap 1 cap once daily [Active]; Nexium 20 mg Oral cpDR 1 cap once daily [Active]; Plavix 75 mg Oral tab 1 tab once daily [Active]; pravastatin 40 mg Oral tab 1 tab once daily [Active]; Tums 200 mg calcium (500 mg) Oral chew [Active]; - PMHx: 12:03 Diabetes - NIDDM; Dialysis; Hyperlipidemia; Hypertension; Renal Disease; Tues, Th, tw2 Sat; Ulcers; - PSHx: 12:03 port placement; fistula, left upper arm; fistula; tw2 - Immunization history:: Adult Immunizations unknown. - Social history:: Smoking status: unknown. - Ebola Screening: : No symptoms or risks identified at this time. ROS: 12:58 Eyes: Negative for injury, pain, redness, and discharge, ENT: Negative for injury, jr8 pain, and discharge, Neck: Negative for injury, pain, and swelling, Cardiovascular: Negative for chest pain, palpitations, and edema, Respiratory: Negative for shortness of breath, cough, wheezing, and pleuritic chest pain, Abdomen/GI: Negative for abdominal pain, nausea, vomiting, diarrhea, and constipation, Back: Negative for injury and pain, MS/Extremity: Negative for injury and deformity, Skin: Negative for injury, rash, and discoloration. 12:58 Neuro: Positive for altered mental status, headache. Exam: 12:58 Radiologist reports: old infarct. No new or acute findings jr8 12:58 Eyes: Pupils equal round and reactive to light, extra-ocular motions intact. Lids and lashes normal. Conjunctiva and sclera are non-icteric and not injected. Cornea within normal limits. Periorbital areas with no swelling, redness, or edema. ENT: Nares patent. No nasal discharge, no septal abnormalities noted. Tympanic membranes are normal and external auditory canals are clear. Oropharynx with no redness, swelling, or masses, exudates, or evidence of obstruction, uvula midline. Mucous membranes moist. Neck: Trachea midline, no thyromegaly or masses palpated, and no cervical lymphadenopathy. Supple, full range of motion without nuchal rigidity, or vertebral point tenderness. No Meningismus. Cardiovascular: Regular rate and rhythm with a normal S1 and S2. No gallops, murmurs, or rubs. Normal PMI, no JVD. No pulse deficits. Abdomen/GI: Soft, non-tender, with normal bowel sounds. No distension or tympany. No guarding or rebound. No evidence of tenderness throughout. Back: No spinal tenderness. No costovertebral tenderness. Full range of motion. Skin: Warm, dry with normal turgor. Normal color with no rashes, no lesions, and no evidence of cellulitis. MS/ Extremity: Pulses equal, no cyanosis. Neurovascular intact. Full, normal range of motion. 12:58 Neuro: Orientation: to person, Mentation: slow to respond, somnolent, responsive to pain, Motor: moves all fours, Sensation: no obvious gross deficits, seizure activity, is not displayed by the patient, Abnormal movements: there are no abnormal movements. Vital Signs: 11:50 BP 89 / 62; Pulse 118; Resp 10; Pulse Ox 87% on R/A; tw2 11:50 Pulse Ox 86% on 4 lpm NC; tw2 12:00 BP 105 / 60; Pulse 114; Resp 12; Pulse Ox 97% on Non-rebreather mask; tw2 12:41 BP 87 / 52; Pulse 111; Resp 18; Pulse Ox 98% on Non-rebreather mask; tw2 12:44 Weight 81.65 kg (R); ae1 12:44 Temp 98.7(R); ae1 12:58 BP 113 / 61; Pulse 92; Resp 14; Pulse Ox 100% on Non-rebreather mask; ae1 13:09 BP 90 / 60; Pulse 102; Resp 15; Pulse Ox 100% on Non-rebreather mask; tw2 13:15 BP 106 / 58; Pulse 91; Resp 15; Pulse Ox 100% on Non-rebreather mask; tw2 14:00 BP 116 / 93; Pulse 94; Resp 15; Pulse Ox 96% on 3 lpm NC; tw2 14:43 BP 100 / 63; Pulse 101; Resp 16; Pulse Ox 96% on 3 lpm NC; tw2 15:30 BP 112 / 68; Pulse 89; Resp 14; Pulse Ox 97% on 3 lpm NC; tw2 16:29 BP 120 / 70; Pulse 88; Resp 15; Pulse Ox 100% on 3 lpm NC; tw2 11:50 providers J Carlos and Dr. Herzog at bedside at this time, pt placed on o2 via nc at 4L, tw2 will continue to monitor 11:50 provider notified, pt placed on NRB mask at this time, 97%, will continue to monitor tw2 12:41 provider notified. tw2 13:09 provider notified tw2 Jelani Coma Score: 12:58 Eye Response: to pain(2). Verbal Response: oriented(5). Motor Response: localizes jr8 pain(5). Total: 12. MDM: 11:49 Patient medically screened. jr8 13:42 Data reviewed: vital signs, nurses notes, lab test result(s), EKG, radiologic studies, jr8 CT scan, plain films, and as a result, I will admit patient. Data interpreted: Pulse oximetry: on room air is 100 %. Interpretation: normal. Counseling: I had a detailed discussion with the patient and/or guardian regarding: the historical points, exam findings, and any diagnostic results supporting the discharge/admit diagnosis, lab results, radiology results, the need for further work-up and treatment in the hospital. 03/30 11:50 Order name: ABG; Complete Time: 12:39 [facility] 03/30 11:50 Order name: Basic Metabolic Panel; Complete Time: 13:34 03/30 11:50 Order name: Blood Culture Adult (2) 03/30 11:50 Order name: CBC with Diff; Complete Time: 13:35 [facility] 03/30 11:50 Order name: CPK; Complete Time: 13:34 03/30 11:50 Order name: Lactate; Complete Time: 13:34 03/30 11:50 Order name: LFT's; Complete Time: 13:34 [facility] 03/30 11:50 Order name: Lipase; Complete Time: 13:34 03/30 11:50 Order name: Procalcitonin; Complete Time: 13:34 03/30 11:50 Order name: Protime (+inr); Complete Time: 13:06 03/30 11:50 Order name: Troponin (emerg Dept Use Only); Complete Time: 13:06 03/30 11:50 Order name: Magnesium; Complete Time: 13:34 03/30 12:59 Order name: CBC Smear Scan; Complete Time: 13:35 [facility] 03/30 13:35 Order name: Urine Microscopic Only [facility] 03/30 11:50 Order name: Chest Single View XRAY; Complete Time: 12:55 03/30 11:50 Order name: Accucheck; Complete Time: 12:45 03/30 11:50 Order name: Cardiac monitoring; Complete Time: 12:39 03/30 11:50 Order name: EKG - Nurse/Tech; Complete Time: 12:39 03/30 11:50 Order name: IV Saline Lock - Large Bore; Complete Time: 12:39 03/30 11:50 Order name: Labs collected and sent; Complete Time: 12:39 03/30 11:50 Order name: O2 Per Protocol; Complete Time: 12:39 [facility] 03/30 11:50 Order name: O2 Sat Monitoring; Complete Time: 12:39 03/30 11:51 Order name: CT Head Brain wo Cont; Complete Time: 12:55 03/30 13:35 Order name: Straight Cath - Urine; Complete Time: 13:59 03/30 16:17 Order name: Lactate Sepsis 2 HR Follow-up; Complete Time: 16:17 EDMS Administered Medications: 12:42 Drug: NS 0.9% 250 ml Route: IV; Rate: bolus; Site: right antecubital; tw2 13:02 Follow up: IV Status: Completed infusion ae1 13:08 Follow up: Response: No adverse reaction; IV Status: Completed infusion; IV Intake: tw2 250ml 13:35 Drug: Cefepime 1 grams {Note: ivp available only from pharmacy, provider notified..} tw2 Route: IVPB; Rate: 1 bolus; Infused Over: 5 mins; Site: right antecubital; 13:45 Follow up: Response: No adverse reaction; IV Status: Completed infusion tw2 13:59 Drug: vancoMYCIN 1 grams Route: IVPB; Infused Over: 2 hrs; Site: right antecubital; tw2 16:37 Follow up: Response: No adverse reaction; IV Status: Completed infusion tw2 Point of Care Testing: Blood Glucose: 14:36 Blood Glucose: 180 mg/dL; tw2 Ranges: Critical Glucose Levels:Adult <50 mg/dl or >400 mg/dl <40 mg/dl or >180 mg/dl Disposition: 17:52 Co-signature as Attending Physician, Deep Herzog MD. rn Disposition: 03/30/18 13:43 Hospitalization ordered by Olga Gillespei for Inpatient Admission. Preliminary diagnosis are Bacteremia, Sepsis, Altered mental status, unspecified, Hypotension. - Bed requested for Telemetry/MedSurg (Inpatient). - Status is Inpatient Admission. tw2 - Condition is Fair. - Problem is new. - Symptoms have improved. UTI on Admission? No Signatures: Dispatcher [employer] EDMS Ivelisse Jamison Roman, MD MD rn Roszak, Josh, PA PA jr8 Latrice Patino RN RN tw2 Mark Dixon RN RN ae1 Corrections: (The following items were deleted from the chart) 14:15 13:43 Hospitalization Ordered by Saurav Aguila MD for Inpatient Admission. jr8 Preliminary diagnosis is Bacteremia; Sepsis; Altered mental status, unspecified; Hypotension. Bed requested for Telemetry/MedSurg (Inpatient). Status is Inpatient Admission. Condition is Fair. Problem is new. Symptoms have improved. UTI on Admission? No. jr8 16:16 14:15 03/30/2018 13:43 Hospitalization Ordered by Olga Gillespie MD for Inpatient bd Admission. Preliminary diagnosis is Bacteremia; Sepsis; Altered mental status, unspecified; Hypotension. Bed requested for Telemetry/MedSurg (Inpatient). Status is Inpatient Admission. Condition is Fair. Problem is new. Symptoms have improved. UTI on Admission? No. jr8 16:54 16:16 03/30/2018 13:43 Hospitalization Ordered by Olga Gillespie MD for Inpatient tw2 Admission. Preliminary diagnosis is Bacteremia; Sepsis; Altered mental status, unspecified; Hypotension. Bed requested for Telemetry/MedSurg (Inpatient). Status is Inpatient Admission. Condition is Fair. Problem is new. Symptoms have improved. UTI on Admission? No. bd
--- NOTE | 2018-03-30 13:44 | ER ---
Nurse's Notes [facility] Name: Nadir Mendez Age: 72 yrs Sex: Male : 1945 Arrival Date: 03/30/2018 Time: 11:[address] Private MD: Diagnosis: Bacteremia;Sepsis;Altered mental status, unspecified;Hypotension Presentation: 03/30 11:46 Presenting complaint: EMS states: pt was at dialysis he was normal, laughing and joking tw2 in w/c for ambulation, they pulled 2.8L OFF and after that he became unresponsive, we got 153 BLG, 98.7 axillary, systolic was in the 80's got a bolus of fluid in him and he came up to 111 systolic. Transition of care: [facility] dialysis center. Onset of symptoms was March 30, 2018. Risk Assessment: Do you want to hurt yourself or someone else? Patient reports no desire to harm self or others. Initial Sepsis Screen: Does the patient meet any 2 criteria? Systolic BP < 90 mmHg. Altered Mental Status. HR > 90 bpm. Yes Does the patient have a suspected source of infection? Yes: No. Patient's initial sepsis screen is negative. Care prior to arrival: Medication(s) given: Normal saline infusion, 200 bolus. 11:46 Method Of Arrival: EMS: [facility] tw2 11:46 Acuity: [facility]ER 2 tw2 Historical: - Allergies: 12:03 No Known Drug Allergies; tw2 - Home Meds: 12:03 aspirin 81 mg Oral TbEC [Active]; calcium acetate 667 mg Oral cap [Active]; Calcium tw2 Carbonate Oral 2 tabs three times a day [Active]; carbidopa-levodopa 25-100 mg Oral tab [Active]; carvedilol 25 mg Oral tab 1 tab 2 times per day [Active]; Celexa 10 mg Oral tab 1 tab once daily [Active]; gabapentin 100 mg Oral cap 3 times per day [Active]; Hemocyte 324 mg (106 mg iron) Oral tab daily [Active]; Hemocyte-Plus 106 mg iron- 1 mg Oral cap 1 cap once daily [Active]; Nexium 20 mg Oral cpDR 1 cap once daily [Active]; Plavix 75 mg Oral tab 1 tab once daily [Active]; pravastatin 40 mg Oral tab 1 tab once daily [Active]; Tums 200 mg calcium (500 mg) Oral chew [Active]; - PMHx: 12:03 Diabetes - NIDDM; Dialysis; Hyperlipidemia; Hypertension; Renal Disease; Tues, Thurs, tw2 Sat; Ulcers; - PSHx: 12:03 port placement; fistula, left upper arm; fistula; tw2 - Immunization history:: Adult Immunizations unknown. - Social history:: Smoking status: unknown. - Ebola Screening: : No symptoms or risks identified at this time. Screenin:56 Abuse screen: Denies threats or abuse. Nutritional screening: No deficits noted. tw2 Tuberculosis screening: No symptoms or risk factors identified. Fall Risk None identified. Assessment: 11:55 General: Appears in no apparent distress. Behavior is listless, will respond to pain tw2 and verbal stimuli. Pain: Complains of pain in head. Neuro: Level of Consciousness is obtunded, Oriented to person. Cardiovascular: Heart tones S1 S2 Patient's skin is warm and dry. Cardiovascular: Dialysis shunt: in the left arm, with palpable thrill, with auscultated bruit. Respiratory: Airway is patent Respiratory effort is shallow, Respiratory pattern is hypoventilation Breath sounds are clear. GI: Abdomen is round non-distended, Bowel sounds present X 4 quads. : No signs and/or symptoms were reported regarding the genitourinary system. EENT: No signs and/or symptoms were reported regarding the EENT system. Derm: Skin is clammy, Skin temperature is warm. Musculoskeletal: Range of motion:. 13:22 Reassessment: Patient appears in no apparent distress at this time. No changes from tw2 previously documented assessment. Patient and/or family updated on plan of care and expected duration. Pain level reassessed. 14:00 Reassessment: Patient appears in no apparent distress at this time. No changes from tw2 previously documented assessment. Patient and/or family updated on plan of care and expected duration. Pain level reassessed. 14:30 Cardiovascular: Rhythm is sinus tachycardia with multifocal PVCs provider notified. tw2 14:42 Reassessment: Patient appears in no apparent distress at this time. No changes from tw2 previously documented assessment. Patient and/or family updated on plan of care and expected duration. Pain level reassessed. pt has family at bedside at this time, updated poc, provider notified. 14:47 Reassessment: hospitalist Dr. Gillespie at bedside at this time. tw2 15:30 Reassessment: Patient appears in no apparent distress at this time. No changes from tw2 previously documented assessment. Patient and/or family updated on plan of care and expected duration. Pain level reassessed. 16:30 Reassessment: Patient appears in no apparent distress at this time. No changes from tw2 previously documented assessment. Patient and/or family updated on plan of care and expected duration. Pain level reassessed. Vital Signs: 11:50 BP 89 / 62; Pulse 118; Resp 10; Pulse Ox 87% on R/A; tw2 11:50 Pulse Ox 86% on 4 lpm NC; tw2 12:00 BP 105 / 60; Pulse 114; Resp 12; Pulse Ox 97% on Non-rebreather mask; tw2 12:41 BP 87 / 52; Pulse 111; Resp 18; Pulse Ox 98% on Non-rebreather mask; tw2 12:44 Weight 81.65 kg (R); ae1 12:44 Temp 98.7(R); ae1 12:58 BP 113 / 61; Pulse 92; Resp 14; Pulse Ox 100% on Non-rebreather mask; ae1 13:09 BP 90 / 60; Pulse 102; Resp 15; Pulse Ox 100% on Non-rebreather mask; tw2 13:15 BP 106 / 58; Pulse 91; Resp 15; Pulse Ox 100% on Non-rebreather mask; tw2 14:00 BP 116 / 93; Pulse 94; Resp 15; Pulse Ox 96% on 3 lpm NC; tw2 14:43 BP 100 / 63; Pulse 101; Resp 16; Pulse Ox 96% on 3 lpm NC; tw2 15:30 BP 112 / 68; Pulse 89; Resp 14; Pulse Ox 97% on 3 lpm NC; tw2 16:29 BP 120 / 70; Pulse 88; Resp 15; Pulse Ox 100% on 3 lpm NC; tw2 11:50 providers J Carlos and Dr. Herzog at bedside at this time, pt placed on o2 via nc at 4L, tw2 will continue to monitor 11:50 provider notified, pt placed on NRB mask at this time, 97%, will continue to monitor tw2 12:41 provider notified. tw2 13:09 provider notified tw2 [place] Coma Score: 12:58 Eye Response: to pain(2). Verbal Response: oriented(5). Motor Response: localizes jr8 pain(5). Total: 12. ED Course: 11:46 Patient arrived in ED. tw2 11:46 Bed in low position. Call light in reach. Side rails up X2. appellate law clerk on. Pulse tw2 ox on. NIBP on. 11:49 J Carlos Brown PA is PHCP. jr8 11:49 Deep Herzog MD is Attending Physician. jr8 11:49 Triage completed. tw2 11:49 Arm band placed on. tw2 11:56 Latrice Patino, TAMERA is Primary Nurse. tw2 12:09 CT Head Brain wo Cont In Process Unspecified. EDMS 12:09 CT completed. Patient tolerated procedure well. Patient moved to radiology MargaritaTAMERA newberry traveled with pt to CT, pt on NRB mask at this time. 12:15 First set of blood cultures drawn by me. jb1 12:18 X-ray completed. Portable x-ray completed in exam room. Patient tolerated procedure tm4 well. 12:19 Chest Single View XRAY In Process Unspecified. EDMS 12:30 Second set of blood cultures drawn by me. jb1 12:39 Initial lab(s) drawn, by me, sent to lab. EKG done, by ED staff, reviewed by J Carlos MARTEL. 13:43 Kelvin Aguila MD is Hospitalizing Provider. jr8 13:43 Hospitalizing Provider role handed off by Kelvin Aguila MD jr8 13:43 Saurav Aguila MD is Hospitalizing Provider. jr8 13:45 Straight cath inserted, using sterile technique, 18 Fr. no urine obtained, provider tw2 notified, pt states "i no longer make urine". 14:15 Olga Gillespie MD is Hospitalizing Provider. jr8 16:08 CT completed. Patient moved to CT via stretcher. Patient moved back from CT. vr 16:31 Awaiting: attempted to give report, nurse unavailable, will call me back. tw2 16:39 No provider procedures requiring assistance completed. Patient admitted, IV remains in tw2 place. Administered Medications: 12:42 Drug: NS 0.9% 250 ml Route: IV; Rate: bolus; Site: right antecubital; tw2 13:02 Follow up: IV Status: Completed infusion ae1 13:08 Follow up: Response: No adverse reaction; IV Status: Completed infusion; IV Intake: tw2 250ml 13:35 Drug: Cefepime 1 grams {Note: ivp available only from pharmacy, provider notified..} tw2 Route: IVPB; Rate: 1 bolus; Infused Over: 5 mins; Site: right antecubital; 13:45 Follow up: Response: No adverse reaction; IV Status: Completed infusion tw2 13:59 Drug: vancoMYCIN 1 grams Route: IVPB; Infused Over: 2 hrs; Site: right antecubital; tw2 16:37 Follow up: Response: No adverse reaction; IV Status: Completed infusion tw2 Point of Care Testing: Blood Glucose: 14:36 Blood Glucose: 180 mg/dL; tw2 Ranges: Intake: 13:08 IV: 250ml; Total: 250ml. tw2 Outcome: 13:43 Decision to Hospitalize by Provider. jr8 16:41 Admitted to Med/surg accompanied by tech, via stretcher, room 410, with chart. tw2 16:41 Condition: stable 16:41 Instructed on 16:54 Patient left the ED. tw2 Signatures: Dispatcher [employer] EDMaximo Reza jb1 Alpa Briggs tm4 Maria Fernanda Swenson Victoria vr Roszak, Josh, PA PA jr8 Latrice Patino, TAMERA RN tw2 Mark Dixon, TAMERA RN ae1 Corrections: (The following items were deleted from the chart) 12:13 12:09 Patient moved to radiology tw2
--- NOTE | 2018-03-30 16:56 | P.HP ---
Certification for Inpatient Patient admitted to: Inpatient With expected LOS: >2 Midnights Patient will require the following post-hospital care: None Practitioner: I am a practitioner with admitting privileges, knowledge of patient current condition, hospital course, and medical plan of care. Services: Services provided to patient in accordance with Admission requirements found in Title 42 Section 412.3 of the Code of Federal Regulations Patient History Date of Service: 03/30/18 Primary Care Provider: OOT Reason for admission: Sepsis History of Present Illness: This is a 72-year-old male with significant past medical history of high blood pressure, diabetes, hyperlipidemia, end-stage renal disease on hemodialysis Sunday who presented to the ED via EMS. EMS states that patient was at dialysis and was doing well overall prior to dialysis however after dialysis patient became unresponsive with decreased level of consciousness. The dialysis center patient had 2.8 L of fluid removed after which the dialysis her nurse started noticing that patient was getting more lethargic and decreased level of conscious initially and the EMS patient's blood pressure was hypotensive his blood sugar was 153 and his temperature was 98.7. EMS brought the patient over to the ER for further assessment. In the ER patient was found to be altered, hypertensive, lethargic, respiratory distress, and thus was referred over to admission for further care. Patient of note has a recent surgery in his legs where the family stated that his veins were occluded which they operated on 3 days ago at [facility]. Patient after the surgery was doing well no complications was noted family denied having any fever chills nausea vomiting or any other associated symptoms. Patient was in fairly healthy state before dialysis and was ambulating and tolerating his diet just fine at home. Allergies No Known Drug Allergies Allergy (Verified 08/10/15 08:32) Unknown Home Medications: Aspirin Enteric Coated [ASPIRIN 81 MG EC*] 81 mg PO DAILY 12/31/12 Calcium Acetate [Phoslo*] 2 cap PO TID 12/31/12 Clopidogrel Bisulfate [Plavix*] 75 mg PO DAILY 12/31/12 Gabapentin [Neurontin*] 100 mg PO TID 12/31/12 Pravastatin [Pravachol*] 40 mg PO DAILY 12/31/12 Citalopram [Celexa*] 10 mg PO DAILY 04/15/16 Pregabalin [Lyrica*] 75 mg PO DAILY 04/15/16 Multivitamin with Iron [Daily Multivitamin with Iron] 1 each PO DAILY #30 tablet 04/16/16 Carbidopa/Levodopa [Carbidopa-Levo 25-100 mg Odt] 1 tab PO BID 09/12/16 Carvedilol [Coreg] 25 mg PO BID 01/21/18 - Past Medical/Surgical History Diabetic: Yes -: Hypertension -: Neuropathy -: Hyperlipidemia -: ESRD -: DM -: DDD/DJD of the spine -: Anemia of chronic disease -: Hepatitis C -: History of pancreatitis -: Dialysis stent -: LLE Stent -: Right foot sx r/t fx Psychosocial/ Personal History: has recently. - Social History Alcohol use: No CD- Drugs: No Caffeine use: Yes Review of Systems General: As per HPI Physical Examination - Physical Exam General: Alert, Oriented x3, Mild distress HEENT: Atraumatic, PERRLA Neck: Supple, 2+ carotid pulse no bruit, JVD distended Respiratory: Normal air movement, Crackles/rales, Expiratory wheezes, Inspiratory wheezes Cardiovascular: Regular rate/rhythm, Normal S1 S2 Gastrointestinal: Normal bowel sounds, Soft and benign, Non-distended, No tenderness Musculoskeletal: No tenderness Integumentary: No rashes Neurological: Normal speech, Normal tone, Abnormal strength Lymphatics: No axilla or inguinal lymphadenopathy Urinary: Dialysis catheter, Other - Studies Laboratory Data (last 24 hrs) 03/30/18 12:30: PT 12.4, INR 1.05 03/30/18 12:30: WBC 14.1 H, Hgb 14.5, Hct 43.7, Plt Count 99 L 03/30/18 12:30: Sodium 136, Potassium 4.4, BUN 18, Creatinine 4.50 H, Glucose 158 H, Magnesium 2.1, Total Bilirubin 0.6, AST 47 H, ALT 25, Alkaline Phosphatase 122 H, Lipase 143 Assessment and Plan - Problems (Diagnosis) (1) Sepsis Onset Date: 09/13/16 Current Visit: No Status: Acute Plan: Patient with elevated lactic acid pro-calcitonin and hypotension. With unknown source of infection at this time. -Most likely symptoms associated with sepsis postprocedure vs dehydration secondary to hypovolemia secondary to dialysis. -patient recently with post surgical procedure for PVD 3 days ago. -will place patient on IV antibiotics at this time. -Will get blood culture, urine culture chest x-ray at this time -will repeat lab work in the morning. -currently patient not requiring any pressor support with pressors. If needed will give bolus of 500 mL fluid. -patient complaining of chronic back pain which has worsened today. CT abdomen and pelvis negative at this time for any acute abnormality. Qualifiers: Sepsis type: sepsis due to unspecified organism Qualified Code(s): A41.9 - Sepsis, unspecified organism (2) End stage renal failure on dialysis Onset Date: 09/13/16 Current Visit: No Status: Chronic Plan: Patient has hemodialysis Sunday. -hypovolemic post dialysis. 2.8 L removed today. -nephrology consulted. Awaiting recommendations at this time. -will monitor patient closely for further hypovolemia. Will discuss further care with nephrology. (3) Coronary arteriosclerosis Current Visit: No Status: Chronic Plan: Currently stable. Troponin x1 negative in the ER. EKG with no acute changes. -will restart medications from home. Will continue to monitor closely. (4) Diabetes mellitus Onset Date: 09/13/16 Current Visit: No Status: Chronic Plan: Will place patient on insulin sliding scale at this time. (5) Hypertensive disorder, systemic arterial Current Visit: No Status: Chronic Plan: Currently hypotensive most likely secondary to hypovolemia secondary to dialysis versus sepsis - will blood pressure medication at this time. (6) Hyperlipidemia Current Visit: No Status: Chronic Plan: Will restart home medication at this time Qualifiers: Hyperlipidemia type: mixed hyperlipidemia Qualified Code(s): E78.2 - Mixed hyperlipidemia (7) Hepatitis C carrier Current Visit: No Status: Chronic Plan: Stable at this time Discharge Plan: Home Plan to discharge in: 72 Hours - Advance Directives Does patient have a Living Will: No Does patient have a Durable POA for Healthcare: No - Code Status/Comfort Care Code Status Assessed: Yes Critical Care: Yes
--- NOTE | 2018-03-30 17:01 | RAD REPORT ---
EXAM DESCRIPTION: CT - Abdomen Pelvis Wo Contrast - 03/30/2018 4:09 pm CLINICAL HISTORY: Abdominal pain COMPARISON: September 2017 TECHNIQUE: Computed axial tomography of the abdomen and pelvis was obtained. IV and oral contrast we re not requested. All CT scans are performed using dose optimization technique as appropriate and may include automated exposure control or mA/KV adjustment according to patient size. FINDINGS: The evaluation of solid organs, vessels and bowel is limited secondary to the lack of con trast administration. The liver, spleen, pancreas, and adrenals appear grossly normal. Renal arterial mask a shins are pres ent. Small bilateral nonobstructing renal calculi are noted. There is no evidence of diverticulitis. A moderate amount of stool is present throughout the colon IMPRESSION: Small, bilateral nonobstructing renal calculi Moderate amount of stool throughout the colon
[2018-03-30] MEDS ORDERED: ONDANSETRON 4 MG/2 ML VIAL IV PRN (17:07)
[2018-03-30] MEDS ORDERED: ACETAMINOPHEN 500 MG TAB PO PRN (17:07)
[2018-03-30] MEDS ORDERED: VANCOMYCIN 1.25 GM in NA CHLORIDE 0.9% 250 ML IVPB SCH (18:00)
[2018-03-30] MEDS ORDERED: PIPER/TAZO/NS 3.375gm 3.375 GM/100 ML BAG IVPB SCH (18:00)
[2018-03-30 18:19] VITALS: BMI 29.0
[2018-03-30] MEDS ORDERED: PNEUMOCOCCAL VACCINE 0.5 ML IMVAC ONE (19:00)
[2018-03-30] MEDS: INSULIN -REGULAR HUMAN 50 UNIT/0.5 ML ML SQ SCH (21:34)
[2018-03-31] MEDS: PIPER/TAZO/NS 2.25gm 2.25 GM/50 ML BAG IV SCH ×2 (01:00→08:32)
--- NOTE | 2018-03-31 02:43 | CON ---
Date of Consultation: 03/30/2018 NEPHROLOGY CONSULTATION Reason For Consultation: Elevated BUN and creatinine, hypertension, end-stage renal disease. History Of Present Illness: This is a pleasant 72-year-old gentleman well known to me from the dialy [facility] with significant past history of end-stage renal disease, on hemodialysis, TTS at [facility] modialysis Unit through left arm AV fistula; diabetes complicated with neuropathy and nephropathy; hy pertension; peripheral vascular disease; GERD; hep C; osteoarthritis. The patient was in his regular state of health. Today, had dialysis. After dialysis, found to be confused. For that reason, sent to the hospital. Primary workup in the ER found to have local cytosis without any fever but still c onfused. The patient is complaining some low back pain radiating to the leg. For that reason, we ad mitted the patient and started the patient on antibiotic. We started working him up for diskitis or osteo in the vertebrae. Past Medical History: Includes: 1.Hypertension. 2.Hyperlipidemia. 3.Diabetes, complicated with neuropathy and nephropathy. 4.Osteoarthritis. 5.Hepatitis C. 6.End-stage renal disease, on hemodialysis, TTS. Past Surgical History: Include: 1.Lower extremity bypass. 2.PermCath. 3.AV fistula creation. Allergies: NO KNOWN DRUG ALLERGIES. Social History: Denies smoking, denies drinking, denies drug abuse. Family History: Positive for diabetes and hypertension. Review of Systems: Head and Neck: No red eye. No ear pain. GI: No nausea. No vomiting. : No polyuria. No dysuria. No hematuria. OFFICE SUPPORT ASSOCIATE: Not applicable. Respiratory: No shortness of breath. Cardiovascular: No chest pain. Musculoskeletal: Has low back pain. Endocrine: No polydipsia. Skin: No rash. Neuro: Has confusion. Medications: Home medications include: 1.Pravastatin. 2.Esomeprazole. 3.Plavix. 4.Iron. 5.Ferrous sulfate. 6.Citalopram. 7.Gabapentin. 8.Carvedilol 25 b.i.d. 9.Calcium carbonate. 10.PhosLo. 11.Aspirin. Current medications in the hospital include insulin, Zosyn, and vancomycin. Physical Examination: Vital Signs: Blood pressure of 130/61, pulse of 74, afebrile. Chest: Clear to auscultation. Heart: S1, S2. Systolic murmur. Abdomen: Soft, nontender. Extremity: No edema. Neuro: Confused. Musculoskeletal: No focal tenderness in the lower extremity or lower spine. Laboratory Data: WBC 14.1, H and H 14.5/43.7, platelets of 99. Sodium 136, potassium 4.4, bicarb 28 , BUN 18, creatinine 4.5. Glucose 261. Procalcitonin 3.5. CT abdomen and pelvis: Renal calculi, modest stool amount. Assessment And Plan: 1.End-stage renal disease. Normal volume. We will continue the patient on his dialysis TTS. The p atient dialyzed today. 2.Hypertension, controlled optimal. Given the possibility of sepsis, we will hold on the blood pres sure medication. 3.Possible diskitis. Continue current antibiotic. We will follow up culture. 4.Diabetes, as by primary. MEREDITH/ANDRE Voice ID: [id number] Report ID: [id number]
[2018-03-31] MEDS: INSULIN -REGULAR HUMAN 50 UNIT/0.5 ML ML SQ SCH ×2 (07:30→11:30)
[2018-03-31] MEDS ORDERED: VANCOMYCIN/NS 1 gm 1 GM/250 ML BAG IVPB SCH (08:15)
[2018-03-31 08:24] VITALS: TEMP 97.8
[2018-03-31] MEDS ORDERED: FERROUS FUMARATE PO SCH (09:00)
[2018-03-31] MEDS ORDERED: ESOMEPRAZOLE MAGNESIUM PO SCH (09:00)
[2018-03-31] MEDS ORDERED: ASPIRIN EC 81 MG TAB PO SCH (09:00)
[2018-03-31] MEDS ORDERED: CLOPIDOGREL 75 MG TABLET PO SCH (09:00)
[2018-03-31] MEDS ORDERED: CITALOPRAM 10 MG TABLET PO SCH (09:00)
[2018-03-31] MEDS ORDERED: CARVEDILOL 25 MG TAB PO SCH (09:00)
[2018-03-31] MEDS ORDERED: FE SULF/FA/VIT B COMP & C TAB PO SCH (09:00)
[2018-03-31] MEDS ORDERED: HOME MED 1 EA UNK (Pravastatin [Pravachol*] 40 MG) PO SCH (09:00)
[2018-03-31 09:27] LABS: Absolute Lymphocytes (CBC) 1.5 K/uL (0.7-4.9); Absolute Monocytes 0.9 K/uL (0.1-1.3); Absolute Neutrophil 9.2 K/uL (1.8-8.0); Basophils % 0.4 % (0-1.3); Eosinophils % 2.6 % (0-4.4); Lymphocytes % 12.4 % (15.3-44.8); MCH 34.8 pg (27.0-35.0); MCV 102.2 fL (80-100); MPV 11.3 fL (7.6-11.3); Monocytes % 7.6 % (3.3-12.3); RBC Red Blood Cell Count 3.81 M/uL (4.33-5.43)
[2018-03-31] MEDS: GABAPENTIN 100 MG CAP PO SCH ×2 (09:29→14:28)
[2018-03-31] MEDS: CALCIUM CARBONATE CHEW 500MG TAB PO SCH ×2 (09:29→14:28)
[2018-03-31 09:30] VITALS: BP 156/76
[2018-03-31 09:47] LABS: Albumin 2.8 g/dL (3.4-5.0); Bilirubin Total 0.5 mg/dL (0.2-1.0); Potassium 4.2 mmol/L (3.5-5.1); Protein, Total 7.2 g/dL (6.4-8.2)
[2018-03-31] MEDS ORDERED: CARBIDOPA/LEVODOPA 25/100 TAB PO SCH (10:00)
[2018-03-31] MEDS ORDERED: CA ACETATE 667 MG CAP PO SCH (12:00)
--- NOTE | 2018-03-31 12:30 | P.SSS ---
Patient History Date of Service: 03/31/18 Primary Care Provider: YELITZA Reason for admission: Sepsis History of Present Illness: This is a 72-year-old male with significant past medical history of high blood pressure, diabetes, hyperlipidemia, end-stage renal disease on hemodialysis Sunday who presented to the ED via EMS. EMS states that patient was at dialysis and was doing well overall prior to dialysis however after dialysis patient became unresponsive with decreased level of consciousness. The dialysis center patient had 2.8 L of fluid removed after which the dialysis her nurse started noticing that patient was getting more lethargic and decreased level of conscious initially and the EMS patient's blood pressure was hypotensive his blood sugar was 153 and his temperature was 98.7. EMS brought the patient over to the ER for further assessment. In the ER patient was found to be altered, hypertensive, lethargic, respiratory distress, and thus was referred over to admission for further care. Patient of note has a recent surgery in his legs where the family stated that his veins were occluded which they operated on 3 days ago at [facility]. Patient after the surgery was doing well no complications was noted family denied having any fever chills nausea vomiting or any other associated symptoms. Patient was in fairly healthy state before dialysis and was ambulating and tolerating his diet just fine at home. Allergies No Known Drug Allergies Allergy (Verified 08/10/15 08:32) Unknown Home Medications: Aspirin Enteric Coated [ASPIRIN 81 MG EC*] 81 mg PO DAILY 12/31/12 Calcium Acetate [Phoslo*] 2 cap PO TID 12/31/12 Clopidogrel Bisulfate [Plavix*] 75 mg PO DAILY 12/31/12 Gabapentin [Neurontin*] 100 mg PO TID 12/31/12 Pravastatin [Pravachol*] 40 mg PO DAILY 12/31/12 Citalopram [Celexa*] 10 mg PO DAILY 04/15/16 Carbidopa/Levodopa [Carbidopa-Levo 25-100 mg Odt] 1 tab PO BID 09/12/16 Carvedilol [Coreg*] 25 mg PO BID 01/21/18 Calcium Carbonate [Antacid] 2 tab PO TID 03/30/18 Esomeprazole Magnesium [Nexium] 1 cap PO DAILY 03/30/18 Ferrous Fumarate [Hemocyte] 1 tab PO DAILY 07/21/18 Iron/FA/Vit B-Com W/C [Hemocyte Plus*] 1 cap PO DAILY 03/30/18 - Past Medical/Surgical History Has patient received pneumonia vaccine in the past: No Diabetic: Yes -: Hypertension -: Neuropathy -: Hyperlipidemia -: ESRD -: DM -: DDD/DJD of the spine -: Anemia of chronic disease -: Hepatitis C -: History of pancreatitis -: Dialysis stent -: LLE Stent -: Right foot sx r/t fx -: vein procedure on r femoral Psychosocial/ Personal History: has recently. - Social History Smoking Status: Former smoker Alcohol use: No CD- Drugs: No Caffeine use: Yes Review of Systems General: As per HPI Physical Examination - Vital Signs Temperature: 97.8 F Blood Pressure: 156/76 Pulse: 72 Respirations: 18 Pulse Ox (%): 100 - Physical Exam General: Alert, In no apparent distress HEENT: Atraumatic, PERRLA, Mucous membr. moist/pink, EOMI, Sclerae nonicteric Neck: Supple, 2+ carotid pulse no bruit, No LAD, Without JVD or thyroid abnormality Respiratory: Clear to auscultation bilaterally, Normal air movement Cardiovascular: Regular rate/rhythm, Normal S1 S2 Gastrointestinal: Normal bowel sounds, No tenderness Musculoskeletal: No tenderness Integumentary: No rashes Neurological: Normal gait, Normal speech, Normal strength at 5/5 x4 extr, Normal tone, Normal affect Lymphatics: No axilla or inguinal lymphadenopathy - Studies Laboratory Data (last 24 hrs) 03/30/18 12:30: PT 12.4, INR 1.05 03/30/18 12:30: WBC 14.1 H, Hgb 14.5, Hct 43.7, Plt Count 99 L 03/30/18 12:30: Sodium 136, Potassium 4.4, BUN 18, Creatinine 4.50 H, Glucose 158 H, Magnesium 2.1, Total Bilirubin 0.6, AST 47 H, ALT 25, Alkaline Phosphatase 122 H, Lipase 143 Microbiology Data (last 24 hrs): 03/30/18 12:30 Blood - Blood Anaerobic Blood Culture - Final 03/30/18 12:15 Blood - Blood Anaerobic Blood Culture - Final - Diagnosis (Problem(s)) (1) Sepsis Onset Date: 09/13/16 Current Visit: No Status: Ruled-out Qualifiers: Sepsis type: sepsis due to unspecified organism Qualified Code(s): A41.9 - Sepsis, unspecified organism (2) End stage renal failure on dialysis Onset Date: 09/13/16 Current Visit: No Status: Chronic (3) Coronary arteriosclerosis Current Visit: No Status: Chronic (4) Diabetes mellitus Onset Date: 09/13/16 Current Visit: No Status: Chronic (5) Hypertensive disorder, systemic arterial Current Visit: No Status: Chronic (6) Hyperlipidemia Current Visit: No Status: Chronic Qualifiers: Hyperlipidemia type: mixed hyperlipidemia Qualified Code(s): E78.2 - Mixed hyperlipidemia (7) Hepatitis C carrier Current Visit: No Status: Chronic Treatment Summary: Overall during the hospital stay patient is stable Patient was initially brought over to the hospital with concerns of sepsis. Urine culture and blood cultures were negative thus far. Patient had marked resolution in his lab work as well. Most likely patient's elevated white count along with lactic acid and pro calcitonin were most likely secondary to end- stage renal disease and getting dialysis recently. Patient initially when presented to the hospital was very lethargic. The patient had 2.8 L of fluid removed in the dialysis and probably got dehydrated since he had been over diuresed. Once patient was stabilized here in the hospital with IV fluids and antibiotics patient improved markedly here in the hospital. Nephrology was consulted who agreed with the diagnosis of dehydration and hypovolemia secondary to dialysis causing patient's acute symptoms and thus patient was discharged home under stable condition. Patient was asked to follow up with the primary care provider in about 1-2 days along with nephrology in about 1-2 days as well. Patient has been complaining of having some crying back pain that was CT abdomen and pelvis was done here in the hospital which was negative for any acute abnormality including diskitis. Patient was also complaining of having some lower leg pain from for about couple of days. Patient was asked to follow up with his general surgery who did angioplasty on the right leg for PVD. Patient demonstrated understanding and thus was discharged home under stable condition. - Disposition Disposition: ROUTINE DISCHARGE Condition: GOOD Patient Discharge Instructions: Please f.u with PCP and Dr Rai in 1 week post discharge. Diet: Regular Activity: Ad reji
[2018-03-31 12:42] VITALS: O2SAT 100
[2018-03-31] MEDS ORDERED: PNEUMOCOCCAL VACCINE 0.5 ML IMVAC ONE (16:00)
--- NOTE | 2018-03-31 16:26 | PN ---
Date of Progress Note: 03/31/2018 Subjective: The patient doing better. More awake. No altered mental status. No fever. Physical Examination: General: When I saw the patient, the patient lying in bed, comfortable. Vital Signs: Blood pressure of 156/76, pulse of 72, afebrile. Chest: Clear to auscultation. Heart: S1, S2. Regular. Abdomen: Soft, nontender. Extremities: No edema. Laboratory Data: WBC 11.9, H and H 13.3/39, platelet 94. Current Medications: The patient is on include; 1.Aspirin. 2.Zosyn. 3.Vancomycin. 4.Plavix. 5.Calcium carbonate. 6.Atorvastatin. 7.Carvedilol 25 b.i.d. 8.Carbidopa. 9.Celexa. 10.Gabapentin 100 b.i.d. 11.PhosLo 2 tablets with each meal. 12.Pantoprazole. Assessment And Plan: 1.End-stage renal disease. Normal volume. Stable. No hyperkalemia. We will continue dialysis TTS . 2.Hypertension, controlled, optimal. Continue current medication. 3.Altered mental status. Encephalopathy. Diskitis was ruled out. Workup all negative. Leukocytos is resolved. The patient cleared from the renal standpoint for discharge planning, to follow up in the dialysis. HARISH Voice ID: [id number] Report ID: [id number]
[2018-03-31] MEDS ORDERED: ATORVASTATIN 10 MG TAB PO SCH (21:00)
[2018-04-01] MEDS ORDERED: PANTOPRAZOLE 40MG TABLET PO SCH (06:30)
--- NOTE | 2018-04-01 07:47 | EKG ---
Test Date: 2018-03-30 Test Time: 11:47:43 Continuity Clerk: MATTIE MEASUREMENT RESULTS: Intervals: Rate: 115 FL: 122 QRSD: 86 QT: 342 QTc: 473 [place]: P: FL: 122 QRS: 139 T: 28 INTERPRETIVE STATEMENTS: Sinus tachycardia Possible Inferior infarct, age undetermined Right superior axis Abnormal ECG Compared to ECG 09/14/2017 17:47:21 Left posterior fascicular block now present Myocardial infarct finding now present Sinus rhythm no longer present Ventricular premature complex(es) no longer present Electronically Signed On 04-01-18 07:46:45 CDT by Surya Palomino
[2018-04-01] MEDS ORDERED: VANCOMYCIN/NS 1 gm 1 GM/250 ML BAG IVPB SCH (12:00)
== END 2018-03-31 15:43 | disposition home or self-care (01) | DRG 640 ==
LOC: ER 11:43 → ERHOLD 13:43 → 4TH 16:31
PROVIDERS: ADMIT Family Medicine; ATTEND Family Medicine
DX: E86.0 Dehydration (principal); N18.6 End stage renal disease; G93.40 Encephalopathy, unspecified; I12.0 Hypertensive chronic kidney disease with stage 5 chronic kidney disease or end stage renal disease; E11.40 Type 2 diabetes mellitus with diabetic neuropathy, unspecified; B18.2 Chronic viral hepatitis C; I25.10 Atherosclerotic heart disease of native coronary artery without angina pectoris; M54.9 Dorsalgia, unspecified; G89.29 Other chronic pain; E78.2 Mixed hyperlipidemia; E11.21 Type 2 diabetes mellitus with diabetic nephropathy; E11.51 Type 2 diabetes mellitus with diabetic peripheral angiopathy without gangrene; M19.90 Unspecified osteoarthritis, unspecified site; D63.8 Anemia in other chronic diseases classified elsewhere; E11.22 Type 2 diabetes mellitus with diabetic chronic kidney disease; Z99.2 Dependence on renal dialysis; Z79.02 Long term (current) use of antithrombotics/antiplatelets; Z79.82 Long term (current) use of aspirin; Z87.891 Personal history of nicotine dependence; Z95.820 Peripheral vascular angioplasty status with implants and grafts
CPT/HCPCS: 36415; 51702; 70450; 71045; 74176; 80048; 80053; 80076; 82550; 82805; 82962; 83605; 83690; 83735; 84145; 84484; 85025; 85610; 87040; 90670; 93005; 94760; 96365; 96366; 96367; 96375; 97163; 99285; G0009; J0690; J3370

== ENCOUNTER 2018-05-25 06:43 | Inpatient (IN) | payer OTHER ==
--- OUTSIDE RECORDS SUMMARY | 2018-05-25 06:46 | XMS REPORT ---
:1945 [facility] Address [address] [place] [address] Dr. Aviles [address] [place] [id number] Care Team Providers Name Role Phone ANN [...] PATIENT A-V GRAFT 14:11:00 tunneled dialysis ID: [id number] catheterReason for History: End-stage exam:->Clotted fistula renal [...] catheter for an Amplatz wire. A 7 Wolof sheath was placed at the access site. [...] as (Ka,r): 45 mGy Signed: Mariah Choi MDReport Verified Date/Time: 09/18/2017 14:11:58 Reading Location: [place] [address] Angio Body Reading Room -GLUCOSE METER 2017-09-17 13:43:00 Test Item Value Reference Range Comments POC-GLUCOSE METER (BEAKER) (test 76 mg/dL 70-110 TESTED AT [facility] [address] [facility] nqge=8278) [facility] [address] HEMOGLOBIN [id number] 08:02:00 Test Item Value Reference Range Comments HEMOGLOBIN A1C (BEAKER) (test utxb=302) 7.0 % 4.3-6.1 BASIC METABOLIC [id number] 07:34:00 Test Item Value Reference Range Comments SODIUM (BEAKER) (test 140 meq/L 136-145 tzlj=501) POTASSIUM (BEAKER) (test 5.0 meq/L 3.5-5.1 ohqh=212) CHLORIDE (BEAKER) (test 101 meq/L 98-107 oyfk=648) CO2 (BEAKER) (test 22 meq/L 22-29 spkq=993) BLOOD UREA NITROGEN 87 mg/dL 7-21 (BEAKER) (test iqin=962) CREATININE (BEAKER) (test 10.99 mg/dL 0.57-1.25 orxe=360) GLUCOSE RANDOM (BEAKER) 87 mg/dL 70-105 (test evlq=450) CALCIUM (BEAKER) (test 7.8 mg/dL 8.4-10.2 rbdx=445) EGFR (BEAKER) (test 5 mL/min/1.73 sq m ESTIMATED GFR IS NOT keqa=7138) ACCURATE CREATININE CLEARANCE IN PREDICTING GLOMERULAR FILTRATION RATE. ESTIMATED GFR IS NOT APPLICABLE FOR DIALYSIS PATIENTS. [id number] 07:28:00 Test Item Value Reference Range Comments PHOSPHORUS (BEAKER) (test mkzp=836) 6.0 mg/dL 2.3-4.7 [id number] 07:28:00 Test Item Value Reference Range Comments MAGNESIUM (BEAKER) (test gtxs=507) 2.3 mg/dL 1.6-2.6 CALCIUM, [id number] 07:18:00 Test Item Value Reference Range Comments CALCIUM IONIZED (BEAKER) (test bbft=829) 1.00 mmol/L 1.12-1.27 PH, BLOOD (BEAKER) (test nhzv=7458) 7.27 HEPATITIS B SURFACE [id number] 07:11:00 Test Item Value Reference Range Comments HEPATITIS B SURFACE ANTIGEN (2) (BEAKER) (test Nonreactive Nonreactive azvb=0415) Pls add to specimen drawn earlier.POCT-GLUCOSE [id number] 07:06:00 Test Item Value Reference Range Comments POC-GLUCOSE METER (BEAKER) 118 mg/dL 70-110 TESTED AT [facility] [address] [facility] (test xprl=9193) [facility] [address] PROTHROMBIN [id number] 06:14:00 Test Item Value Reference Range Comments PROTIME (BEAKER) (test vdox=431) 14.2 seconds 11.7-14.7 INR (BEAKER) (test jdhk=240) 1.1 <=5.9 RECOMMENDED COUMADIN/WARFARIN INR THERAPY RANGESSTANDARD DOSE: 2.0 - 3.0 Includes: PROPHYLAXIS forvenous thrombosis, systemic embolization; TREATMENT for venous thrombosis and/or pulmonary embolus.HIGH RISK: Target INR is 2.5-3.5 for patients with mechanical heart valves.CBC W/PLT COUNT & AUTO [id number] 06:04:00 Test Item Value Reference Range Comments WHITE BLOOD CELL COUNT (BEAKER) (test cnug=752) 5.7 K/ L 3.5-10.5 RED BLOOD CELL COUNT (BEAKER) (test zckx=172) 3.78 M/ L 4.63-6.08 HEMOGLOBIN (BEAKER) (test zlvk=187) 13.0 GM/DL 13.7-17.5 HEMATOCRIT (BEAKER) (test xjsc=204) 39.4 % 40.1-51.0 MEAN CORPUSCULAR VOLUME (BEAKER) (test zsck=898) 104.2 fL 79.0-92.2 MEAN CORPUSCULAR HEMOGLOBIN (BEAKER) (test 34.4 pg 25.7-32.2 psag=720) MEAN CORPUSCULAR HEMOGLOBIN CONC (BEAKER) (test 33.0 GM/DL 32.3-36.5 ozfb=952) RED CELL DISTRIBUTION WIDTH (BEAKER) (test 14.1 % 11.6-14.4 otqx=119) PLATELET COUNT (BEAKER) (test sjqn=759) 82 K/CU MM 150-450 MEAN PLATELET VOLUME (BEAKER) (test rwsp=937) 13.3 fL 9.4-12.4 NUCLEATED RED BLOOD CELLS (BEAKER) (test 0 /100 WBC 0-0 hkoy=388) NEUTROPHILS RELATIVE PERCENT (BEAKER) (test 62 % opaa=053) LYMPHOCYTES RELATIVE PERCENT (BEAKER) (test 23 % lsal=962) MONOCYTES RELATIVE PERCENT (BEAKER) (test 11 % vzrq=554) EOSINOPHILS RELATIVE PERCENT (BEAKER) (test 4 % vqlt=925) BASOPHILS RELATIVE PERCENT (BEAKER) (test 1 % gfkh=419) NEUTROPHILS ABSOLUTE COUNT (BEAKER) (test 3.53 K/ L 1.78-5.38 qsua=851) LYMPHOCYTES ABSOLUTE COUNT (BEAKER) (test 1.30 K/ L 1.32-3.57 wirp=995) MONOCYTES ABSOLUTE COUNT (BEAKER) (test xmrv=982) 0.62 K/ L 0.30-0.82 EOSINOPHILS ABSOLUTE COUNT (BEAKER) (test 0.22 K/ L 0.04-0.54 ineb=323) BASOPHILS ABSOLUTE COUNT (BEAKER) (test mfvy=113) 0.03 K/ L 0.01-0.08 IMMATURE GRANULOCYTES-RELATIVE PERCENT (BEAKER) 1 % 0-1 (test djwx=5328) POCT-GLUCOSE [id number] 22:23:00 Test Item Value Reference Range Comments POC-GLUCOSE METER (BEAKER) 185 mg/dL 70-110 TESTED AT [facility] [address] [facility] (test afqm=0946) [place] [id number] POCT-GLUCOSE [id number] 21:27:00 Test Item Value Reference Range Comments POC-GLUCOSE METER (BEAKER) 198 mg/dL 70-110 TESTED AT [address] (test agam=1919) [place] [id number] POCT-GLUCOSE [id number] 17:43:00 Test Item Value Reference Range Comments POC-GLUCOSE METER (BEAKER) 164 mg/dL 70-110 TESTED AT [address] (test jjwi=7801) [place] [address] HEPATITIS B SURFACE [id number] 15:14:00 Test Item Value Reference Range Comments HEPATITIS B SURFACE ANTIGEN (2) (BEAKER) (test Nonreactive Nonreactive ffop=4067) Pls add to specimen drawn earlier.BASIC METABOLIC [id number] 13:34:00 Test Item Value Reference Range Comments SODIUM (BEAKER) (test 140 meq/L 136-145 phdo=191) POTASSIUM (BEAKER) (test 5.4 meq/L 3.5-5.1 euss=189) CHLORIDE (BEAKER) (test 101 meq/L 98-107 uglj=895) CO2 (BEAKER) (test 19 meq/L 22-29 nhdw=319) BLOOD UREA NITROGEN 123 mg/dL 7-21 (BEAKER) (test bozp=650) CREATININE (BEAKER) (test 12.96 mg/dL 0.57-1.25 lvcz=162) GLUCOSE RANDOM (BEAKER) 79 mg/dL 70-105 (test mydz=424) CALCIUM (BEAKER) (test 7.9 mg/dL 8.4-10.2 zvgh=201) EGFR (BEAKER) (test 4 mL/min/1.73 sq m ESTIMATED GFR IS NOT fidk=1041) ACCURATE CREATININE CLEARANCE IN PREDICTING GLOMERULAR FILTRATION RATE. ESTIMATED GFR IS NOT APPLICABLE FOR DIALYSIS PATIENTS. [id number] 13:24:00 Test Item Value Reference Range Comments MAGNESIUM (BEAKER) (test odac=077) 2.3 mg/dL 1.6-2.6 [id number] 13:24:00 Test Item Value Reference Range Comments PHOSPHORUS (BEAKER) (test geck=462) 6.2 mg/dL 2.3-4.7 POCT-GLUCOSE [id number] 12:20:00 Test Item Value Reference Range Comments POC-GLUCOSE METER (BEAKER) 84 mg/dL 70-110 TESTED AT [facility] [address] [facility] (test qmhf=4044) [facility] [address] ANG, NON-TUNNELED CATH >5 Y.O. [id number] 11:23:00Reason for exam:-> please declot the AV fistula, if unable to do that he needs catheter exchangeFINAL REPORT Nontunneled dialysis catheter insertion, 09/16/2017. History: Left upper extremity AV fistula thrombosed. Modality: Fluoroscopy and sonography. Sedation: None. Digital Program Manager: Edgar Chandler MD. Gse Mechanic: None. Approach: Right internal jugular vein Estimated [...] using sonographic and fluoroscopic guidance. Signed: Edgar Chandlereport Verified Date/Time: 2017 11:23:57 Reading Location: [place] [id number] AngioBody Reading Room POCT- GLUCOSE [id number] 07:38:00 Test Item Value Reference Range Comments POC-GLUCOSE METER (BEAKER) 89 mg/dL 70-110 TESTED AT [address] (test fpib=5574) [place] [address] PROTHROMBIN [id number] 05:19:00 Test Item Value Reference Range Comments PROTIME (BEAKER) (test izzv=960) 14.8 seconds 11.7-14.7 INR (BEAKER) (test snsp=101) 1.2 <=5.9 RECOMMENDED COUMADIN/WARFARIN INR THERAPY RANGESSTANDARD DOSE: 2.0 - 3.0 Includes: PROPHYLAXIS forvenous thrombosis, systemic embolization; TREATMENT for venous thrombosis and/or pulmonary embolus.HIGH RISK: Target INR is 2.5-3.5 for patients with mechanical heart valves.POCT-GLUCOSE [id number] 23:26:00 Test Item Value Reference Range Comments POC-GLUCOSE METER (BEAKER) 261 mg/dL 70-110 TESTED AT [address] (test wtgh=4716) [place] [id number]
--- OUTSIDE RECORDS SUMMARY | 2018-05-25 06:46 | XMS REPORT | Clinical Summary ---
:1945 Author Organization [facility] Address [address] [place] [address] Phone Care Team Providers Name Role Phone [...] renal MD disease) on dialysis ([facility]);Xbc-pvgtxpr-iih endent diabetes mellitus with neurological complications ([facility]);Other hyperlipidemia;[place] son's disease ([facility]) after 05/24/2017 Family History Medical History Relation Name Comments [...] Taken Blood Pressure 120/64 09/17/2017 8:39 PM WIRELESS INTERNET INSTALLER Pulse 92 09/17/2017 8:39 PM WIRELESS INTERNET INSTALLER Temperature 36.6 C (97.8 F) 09/17/2017 8:39 PM WIRELESS INTERNET INSTALLER Respiratory Rate 19 09/17/2017 8:39 PM WIRELESS INTERNET INSTALLER Oxygen Saturation 94% 09/17/2017 8:39 PM WIRELESS INTERNET INSTALLER Inhaled Oxygen Concentration - - Weight 80.9 kg (178 lb 4 oz) 09/17/2017 6:00 AM WIRELESS INTERNET INSTALLER Height 170.2 cm (5' 7") 09/17/2017 6:00 AM WIRELESS INTERNET INSTALLER Body Mass Index 27.92 09/17/2017 6:00 AM WIRELESS INTERNET INSTALLER Plan of Treatment Not on file Results [...] POC-Glucose Meter 76Comment: TESTED AT [facility] [address] [place] [address] 70 - 110 mg/dL [address] Specimen Performing Laboratory Blood [facility] [address] [address] IR Thromobolysis/Declot AV Fistula/Graft (09/17/2017 12:07 PM) [...] catheter for an Amplatz wire. A 7 Icelandic sheath was placed at the access site. [...] MD Report Verified Date/Time:09/18/2017 14:11:58 Reading Location: [place] [id number] Angio Body Reading Room Procedure Note Interface, External Ris In - 09/18/2017 2:14 PM WIRELESS INTERNET INSTALLER FINAL REPORT History: End-stage renal disease, thrombosed [...] catheter for an Amplatz wire. A 7 Icelandic sheath was placed at the access site. [...] Report Verified Date/Time: 09/18/2017 14:11:58 Reading Location: [place] [address] Angio Body Reading Room Calcium, Ionized (09/17/2017 5:40 AM) Component Value Ref Range Calcium, Ion 1.00 (L) 1.12 - 1.27 mmol/L pH, Blood 7.27 Specimen Performing Laboratory Blood - Arm, Right [address] [address] CBC with platelet count + automated diff [...] % Specimen Performing Laboratory Blood - Arm, [address] [address] Hepatitis B surface antigen (09/17/2017 5:40 AM)Only the most recent of2 resultswithin the time period is included. Component Value Ref Range hepatitis B Surface Ag Nonreactive Nonreactive Specimen Performing Laboratory Blood - Arm, [place] [address] Narrative Pls add to specimen drawn earlier. Prothrombin time/INR (09/17/2017 5:40 AM)Only the most recent of2 resultswithin the time period is included. Component Value Ref Range Protime 14.2 11.7 - 14.7 seconds INR 1.1 <=5.9 Specimen Performing Laboratory Blood - Arm, [place] [address] Narrative RECOMMENDED COUMADIN/WARFARIN INR THERAPY RANGES STANDARD [...] Status --------- ------ CBC with platelet count ...[[id number]]AbnormalFinal result Please view results for these tests on the individual orders. Phosphorus (09/17/2017 5:40 AM)Only the most recent of2 resultswithin the time period is included. Component Value Ref Range Phosphorus 6.0 (H) 2.3 - 4.7 mg/dL Specimen Performing Laboratory Blood - Arm, [address] [address] Magnesium (09/17/2017 5:40 AM)Only the most recent of2 resultswithin the time period is included. Component Value Ref Range Magnesium 2.3 1.6 - 2.6 mg/dL Specimen Performing Laboratory Blood - Arm, [address] [address] Hemoglobin A1c (09/17/2017 5:40 AM) Component Value Ref Range Hemoglobin A1C 7.0 (H) 4.3 - 6.1 % Specimen Performing Laboratory Blood - Arm, [address] [address] Basic metabolic panel (09/17/2017 5:40 AM)Only the [...] PATIENTS. Specimen Performing Laboratory Blood - Arm, [address] [address] IR Non-tunneled Catheter - Central Line/Kieran Temporary (09/16/2017 11:19 AM) Specimen Performing Laboratory GE RIS Narrative FINAL REPORT Nontunneled dialysis catheter insertion, 09/16/2017. History: Left upper extremity AV fistula thrombosed. Modality: Fluoroscopy and sonography. Sedation: None. Malware Analyst:Edgar Chandler MD. Retort Firer:None. Approach: Right internal jugular vein Estimated blood [...] MD Report Verified Date/Time:09/16/2017 11:23:57 Reading Location: [place] [address] Angio Body Reading Room Procedure Note Interface, External Ris In - 09/16/2017 11:26 AM WIRELESS INTERNET INSTALLER FINAL REPORT Nontunneled dialysis catheter insertion, 09/16/2017. History: Left upper extremity AV fistula thrombosed. Modality: Fluoroscopy and sonography. Sedation: None. Malware Analyst: Edgar Chandler MD. Retort Firer: None. Approach: Right internal jugular vein Estimated [...] Report Verified Date/Time: 09/16/2017 11:23:57 Reading Location: [place] [address] Angio Body Reading Room after 05/24/2017
--- OUTSIDE RECORDS SUMMARY | 2018-05-25 06:46 | XMS REPORT ---
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
[2018-05-25 07:29] LABS: Absolute Lymphocytes (CBC) 1.9 K/uL (0.7-4.9); Absolute Monocytes 0.9 K/uL (0.1-1.3); Absolute Neutrophil 4.3 K/uL (1.8-8.0); Basophils % 0.5 % (0-1.3); Eosinophils % 4.6 % (0-4.4); Hematocrit 42.9 % (39.6-49.0); Lymphocytes % 24.9 % (15.3-44.8); MCH 35.2 pg (27.0-35.0); MPV 10.7 fL (7.6-11.3); Monocytes % 12.6 % (3.3-12.3); RBC Red Blood Cell Count 4.13 M/uL (4.33-5.43)
[2018-05-25 07:31] LABS: Protime INR 1.06
--- NOTE | 2018-05-25 07:43 | RAD REPORT ---
EXAM DESCRIPTION: CT - Head Brain Wo Cont - 05/25/2018 7:31 am CLINICAL HISTORY: Alteration of awareness/confusion COMPARISON: March 2018 TECHNIQUE: Computed axial tomography of the head was obtained. IV contrast was not requested. All CT scans are performed using dose optimization technique as appropriate and may include automated exposure control or mA/KV adjustment according to patient size. FINDINGS: An intracranial bleed is not seen . The ventricles are normal in caliber. No extra-axial fluid collection is noted. Low-density area within the left basal ganglia is unchanged having the appearance of an old lacunar infarction. Mild low-density areas within periventricular an d deep white matter have the appearance ischemic changes secondary to small vessel disease Fluid within the sinuses/ mastoids is not seen. IMPRESSION: No acute intracranial abnormality is seen. If patient's symptoms persist MRI of the bra in would be recommended.
[2018-05-25 07:52] LABS: Albumin 2.9 g/dL (3.4-5.0); Bilirubin Direct 0.2 mg/dL (0-0.2); Bilirubin Total 0.6 mg/dL (0.2-1.0); Potassium 3.8 mmol/L (3.5-5.1); Protein, Total 7.9 g/dL (6.4-8.2); Troponin (Emerg Dept Use Only) 0.03 ng/mL (0.0-0.045)
[2018-05-25] MEDS ORDERED: NA CHLORIDE 0.9% 250 ML ONE (08:13)
--- NOTE | 2018-05-25 09:02 | ER ---
Nurse's Notes [facility] Name: Nadir Mendez Age: 73 yrs Sex: Male : 1945 Arrival Date: 05/25/2018 Time: 06:45 Bed 4 Private MD: Ganesh Bauman Diagnosis: Weakness;hypotension;Bigeminy;pulmonary edema Presentation: 05/25 07:05 Presenting complaint: Child states: I woke him up this morning and he was extremely la1 weak. I checked the BP and it was in the 70s. Transition of care: patient was not received from another setting of care. Onset of symptoms was May 25, 2018. Risk Assessment: Do you want to hurt yourself or someone else? Patient reports no desire to harm self or others. Initial Sepsis Screen: Does the patient meet any 2 criteria? Systolic BP < 90 mmHg. Does the patient have a suspected source of infection? No. Patient's initial sepsis screen is negative. Care prior to arrival: None. 07:05 Method Of Arrival: Wheelchair la1 07:05 Acuity: ASTER 1 la1 Historical: - Allergies: 07:05 No Known Allergies; la1 - Home Meds: 07:15 aspirin 81 mg Oral TbEC [Active]; calcium acetate 667 mg Oral cap [Active]; Calcium la1 Carbonate Oral 2 tabs three times a day [Active]; carbidopa-levodopa 25-100 mg Oral tab [Active]; carvedilol 25 mg Oral tab 1 tab 2 times per day [Active]; Celexa 10 mg Oral tab 1 tab once daily [Active]; gabapentin 100 mg Oral cap 3 times per day [Active]; Hemocyte 324 mg (106 mg iron) Oral tab daily [Active]; Hemocyte-Plus 106 mg iron- 1 mg Oral cap 1 cap once daily [Active]; Nexium 20 mg Oral cpDR 1 cap once daily [Active]; Plavix 75 mg Oral tab 1 tab once daily [Active]; pravastatin 40 mg Oral tab 1 tab once daily [Active]; Tums 200 mg calcium (500 mg) Oral chew [Active]; - PMHx: 07:05 Diabetes - NIDDM; Dialysis; Hyperlipidemia; Hypertension; Renal Disease; Tues, Thurs, la1 Sat; Ulcers; - Immunization history:: Adult Immunizations up to date. - Social history:: Smoking status: unknown. - Ebola Screening: : No symptoms or risks identified at this time. - Family history:: not pertinent. - Hospitalizations: : No recent hospitalization is reported. Screenin:06 Abuse screen: Denies threats or abuse. Nutritional screening: No deficits noted. la1 Tuberculosis screening: No symptoms or risk factors identified. Fall Risk No fall in past 12 months (0 pts). No secondary diagnosis (0 pts). IV access (20 points). Ambulatory Aid- None/Bed Rest/Nurse Assist (0 pts). Gait- Weak (10 pts.). Mental Status- Oriented to own ability (0 pts). Total Granados Fall Scale indicates High Risk Score (45 or more points). As available patient and family educated on Fall Prevention Program and Strategies. Assessment: 07:11 General: Appears ill, Behavior is cooperative. Pain: Denies pain. Neuro: Level of la1 Consciousness is awake, alert, obeys commands, Oriented to person, place, time, situation, Facial symmetry appears normal, Pupils are PERRLA. Cardiovascular: Denies chest pain, shortness of breath, Heart tones S1 S2 present Capillary refill < 3 seconds Patient's skin is warm and dry. Chest pain is denied Dialysis shunt: in the left bicep, with palpable thrill, with no auscultated thrill, with no erythema, with no edema, no bleeding noted. Respiratory: Airway is patent Trachea midline Respiratory effort is even, unlabored, Respiratory pattern is regular, symmetrical, Breath sounds are clear bilaterally. GI: Abdomen is round non-distended, Bowel sounds present X 4 quads. Abd is soft and non tender X 4 quads. : No signs and/or symptoms were reported regarding the genitourinary system. Musculoskeletal: pt has bandage to right femoral area, states he had stent placed in that leg on sunday. 07:45 Reassessment: Pt in ventricular bigeminy ERP notified. la1 07:54 Reassessment: lab alert, pt creatine is 8.6. Dr. Vines notified. aa5 08:24 Reassessment: Patient appears in no apparent distress at this time. No changes from la1 previously documented assessment. Patient and/or family updated on plan of care and expected duration. Pain level reassessed. 09:55 Reassessment: Patient appears in no apparent distress at this time. No changes from la1 previously documented assessment. Patient and/or family updated on plan of care and expected duration. Pain level reassessed. Vital Signs: 07:03 BP 86 / 41; Pulse 36; Resp 18; Temp 98.0(O); Pulse Ox 95% on R/A; Weight 85.73 kg; la1 07:11 Pulse 70; la1 07:45 BP 87 / 46; Pulse 71; Resp 16; Pulse Ox 98% on R/A; la1 08:04 BP 96 / 44; Pulse 60; Resp 16; la1 08:24 BP 96 / 54; Pulse 61; Resp 16; Pulse Ox 96% on R/A; la1 08:48 BP 108 / 61; Pulse 56; Resp 16; Pulse Ox 95% on R/A; la1 09:26 BP 110 / 59; Pulse 58; Resp 16; Pulse Ox 96% on R/A; la1 09:55 BP 131 / 62; Pulse 61; Resp 16; Pulse Ox 98% on R/A; la1 ED Course: 06:45 Patient arrived in ED. am2 06:46 Ganesh Bauman MD is Private Physician. am2 07:03 Chandler Chavez, RN is Primary Nurse. la1 07:03 Steven Vines MD is Attending Physician. wa 07:03 Arm band placed on right wrist. EKG completed in triage. Results shown to MD. la1 07:05 Initial lab(s) drawn, by wi, sent to lab. 07:06 Triage completed. la1 07:06 Call light in reach. Side rails up X 1. secured entrance monitor on. Pulse ox on. NIBP on. la1 07:13 Inserted saline lock: 18 gauge in right antecubital area, using aseptic technique. la1 Blood collected. 07:13 Inserted saline lock: 22 gauge in right hand, using aseptic technique. Blood collected. la1 07:26 X-ray completed. Portable x-ray completed in exam room. Patient tolerated procedure bb2 well. 07:27 Chest Single View XRAY In Process Unspecified. EDMS 07:29 CT completed. Patient moved to CT via stretcher. Patient moved back from CT. cw1 07:30 CT Head Brain wo Cont In Process Unspecified. EDMS 09:00 Ganesh Bauman MD is Hospitalizing Provider. wa 10:24 No provider procedures requiring assistance completed. Patient admitted, IV remains in la1 place. Administered Medications: 08:09 Drug: NS 0.9% 250 ml Route: IV; Rate: bolus; Site: right antecubital; dc1 09:27 Follow up: IV Status: Completed infusion la1 Point of Care Testing: Blood Glucose: 07:01 Blood Glucose: 164 mg/dL; oe Ranges: Outcome: 09:01 Decision to Hospitalize by Provider. wa 10:24 Admitted to ICU accompanied by nurse, via stretcher, room 6, with chart. la1 10:24 Condition: stable 10:24 Instructed on the need for admit. 10:25 Patient left the ED. dc1 Signatures: Dispatcher [employer] Carmita Mackey, RN RN Shaista Hoyt RN RN Tamera Orellana 1 Chandler Chavez RN RN la1 Puneet Sneed Amanda am2 Steven Vines MD MD wa Bock, Brittany bb2
--- NOTE | 2018-05-25 09:02 | EDPHYS ---
Physician Documentation [facility] Name: Nadir Mendez Age: 73 yrs Sex: Male : 1945 Arrival Date: 05/25/2018 Time: 06:45 Bed 4 Private MD: Ganesh Bauman ED Physician Steven Vines HPI: 05/25 07:14 This 73 yrs old Male presents to ER via Wheelchair with complaints of Weakness.wa 07:14 The patient presents to the emergency department with weakness of the entire body, wa generalized weakness. Onset: The symptoms/episode began/occurred this morning. Context: occurred at home, occurred while the patient was at rest, ESRD on dialysis. per son, pt c/o generalized weakness. pt denies chest pain or SOB. states feels generally weak. Associated signs and symptoms: Pertinent positives: altered mental status, dizziness, weakness, Pertinent negatives: fever, headache, nausea. Severity of symptoms: At their worst the symptoms were moderate in the emergency department the symptoms are unchanged. Patient's baseline: Neuro: alert and fully oriented, Motor: no deficits, Ambulation: walks without assistance, Speech: normal, The patient has a previous history of. Current symptoms: appears weak. The patient has experienced similar episodes in the past, a few times. The patient has not recently seen a physician. Historical: - Allergies: 07:05 No Known Allergies; la1 - Home Meds: 07:15 aspirin 81 mg Oral TbEC [Active]; calcium acetate 667 mg Oral cap [Active]; Calcium la1 Carbonate Oral 2 tabs three times a day [Active]; carbidopa-levodopa 25-100 mg Oral tab [Active]; carvedilol 25 mg Oral tab 1 tab 2 times per day [Active]; Celexa 10 mg Oral tab 1 tab once daily [Active]; gabapentin 100 mg Oral cap 3 times per day [Active]; Hemocyte 324 mg (106 mg iron) Oral tab daily [Active]; Hemocyte-Plus 106 mg iron- 1 mg Oral cap 1 cap once daily [Active]; Nexium 20 mg Oral cpDR 1 cap once daily [Active]; Plavix 75 mg Oral tab 1 tab once daily [Active]; pravastatin 40 mg Oral tab 1 tab once daily [Active]; Tums 200 mg calcium (500 mg) Oral chew [Active]; - PMHx: 07:05 Diabetes - NIDDM; Dialysis; Hyperlipidemia; Hypertension; Renal Disease; Tues, Thurs, la1 Sat; Ulcers; - Immunization history:: Adult Immunizations up to date. - Social history:: Smoking status: unknown. - Ebola Screening: : No symptoms or risks identified at this time. - Family history:: not pertinent. - Hospitalizations: : No recent hospitalization is reported. ROS: 07:18 Constitutional: Negative for fever, chills, and weight loss, Eyes: Negative for injury, wa pain, redness, and discharge, ENT: Negative for injury, pain, and discharge, Neck: Negative for injury, pain, and swelling, Cardiovascular: Negative for chest pain, palpitations, and edema, Respiratory: Negative for shortness of breath, cough, wheezing, and pleuritic chest pain, Abdomen/GI: Negative for abdominal pain, nausea, vomiting, diarrhea, and constipation, Back: Negative for injury and pain, : Negative for injury, bleeding, discharge, and swelling, MS/Extremity: Negative for injury and deformity, Skin: Negative for injury, rash, and discoloration, Psych: Negative for depression, anxiety, suicide ideation, homicidal ideation, and hallucinations. 07:18 Neuro: Positive for altered mental status, dizziness, weakness. 07:18 All other systems are negative. Exam: 07:19 Head/Face: Normocephalic, atraumatic. wa 07:19 Eyes: Pupils equal round and reactive to light, extra-ocular motions intact. Lids and lashes normal. Conjunctiva and sclera are non-icteric and not injected. Cornea within normal limits. Periorbital areas with no swelling, redness, or edema. ENT: Nares patent. No nasal discharge, no septal abnormalities noted. Tympanic membranes are normal and external auditory canals are clear. Oropharynx with no redness, swelling, or masses, exudates, or evidence of obstruction, uvula midline. Mucous membranes moist. Neck: Trachea midline, no thyromegaly or masses palpated, and no cervical lymphadenopathy. Supple, full range of motion without nuchal rigidity, or vertebral point tenderness. No Meningismus. Chest/axilla: Normal chest wall appearance and motion. Nontender with no deformity. No lesions are appreciated. Abdomen/GI: Soft, non-tender, with normal bowel sounds. No distension or tympany. No guarding or rebound. No evidence of tenderness throughout. Back: No spinal tenderness. No costovertebral tenderness. Full range of motion. Skin: Warm, dry with normal turgor. Normal color with no rashes, no lesions, and no evidence of cellulitis. MS/ Extremity: Pulses equal, no cyanosis. Neurovascular intact. Full, normal range of motion. Psych: Awake, alert, with orientation to person, place and time. Behavior, mood, and affect are within normal limits. 07:19 Constitutional: The patient appears lethargic, listless, appears weak 07:19 Cardiovascular: Rate: normal, Rhythm: irregular, Pulses: no pulse deficits are appreciated, Heart sounds: normal, Edema: 1+ edema to level of left ankle and right ankle, JVD: is not appreciated, Dialysis shunt: in the left arm, with palpable thrill, with auscultated bruit, with no erythema, with no edema, no bleeding noted 07:19 Respiratory: the patient does not display signs of respiratory distress, Respirations: normal, Breath sounds: course bilaterally, Respiratory rate: normal 09:04 Neuro: Orientation: is normal, mild somnolence noted, Cranial nerves: grossly normal, wa Motor: moves all extremities and face symmetrically. noted generally weak however, Gait: not tested. Vital Signs: 07:03 BP 86 / 41; Pulse 36; Resp 18; Temp 98.0(O); Pulse Ox 95% on R/A; Weight 85.73 kg; la1 07:11 Pulse 70; la1 07:45 BP 87 / 46; Pulse 71; Resp 16; Pulse Ox 98% on R/A; la1 08:04 BP 96 / 44; Pulse 60; Resp 16; la1 08:24 BP 96 / 54; Pulse 61; Resp 16; Pulse Ox 96% on R/A; la1 08:48 BP 108 / 61; Pulse 56; Resp 16; Pulse Ox 95% on R/A; la1 09:26 BP 110 / 59; Pulse 58; Resp 16; Pulse Ox 96% on R/A; la1 09:55 BP 131 / 62; Pulse 61; Resp 16; Pulse Ox 98% on R/A; la1 MDM: 07:03 Patient medically screened. wa 07:22 Special discussion: ESRD. weak. AMS. r/o CVA, sepsis, hyperkalemia, ACS, hypoglycemia. ks STAT accucheck noted 164. will monitor, eval and treat as necessary. 08:48 Data reviewed: vital signs, nurses notes, lab test result(s), EKG, radiologic studies. ks Test interpretation: by ED physician or midlevel provider: EKG: HR 60. noted bigeminy. LAD. worse from old EKG's. Labs noted for pro-chi 1.19. hyperglycemia at 165. Low GFR consistent with dx of ESRD. CT brain: no acute process. CXR: Pulm edema. Cardiomegaly.. 08:54 Physician consultation: consulted Dr. Norman for admission. Spoke with Dr. Herb phelan (renal) for emergent dialysis. suspect hypotension secondary to pt's dysrhythmia. Spoke with Dr. Godinez (cardiology). needs eval for potential pacemaker. no source of electrolyte or infection found to explain generalized weakness and hypotension otherwise. Admission orders: after a detailed discussion of the patient's condition and case, the admit orders are written by wi. 05/25 07:08 Order name: Urine Microscopic Only 05/25 07:08 Order name: Basic Metabolic Panel; Complete Time: 07:58 05/25 07:08 Order name: Blood Culture Adult (2) 05/25 07:08 Order name: CBC with Diff; Complete Time: 07:37 05/25 07:08 Order name: CPK; Complete Time: 07:59 05/25 07:08 Order name: Lactate; Complete Time: 07:59 05/25 07:08 Order name: LFT's; Complete Time: 07:59 05/25 07:08 Order name: Lipase; Complete Time: 07:59 05/25 07:08 Order name: Procalcitonin; Complete Time: 08:44 05/25 07:08 Order name: Protime (+inr); Complete Time: 07:37 05/25 07:08 Order name: Troponin (emerg Dept Use Only); Complete Time: 07:59 05/25 08:05 Order name: PROBNP 05/25 08:53 Order name: TSH; Complete Time: 09:59 05/25 08:53 Order name: Magnesium; Complete Time: 09:59 05/25 07:08 Order name: Chest Single View XRAY; Complete Time: 09:59 ks 05/25 07:08 Order name: Accucheck; Complete Time: 07:15 ks 05/25 07:08 Order name: Cardiac monitoring; Complete Time: 07:15 ks 05/25 07:08 Order name: EKG - Nurse/Tech; Complete Time: 07:16 ks 05/25 07:08 Order name: IV Saline Lock - Large Bore; Complete Time: 07:16 ks 05/25 07:08 Order name: Labs collected and sent; Complete Time: 07:16 ks 05/25 07:08 Order name: O2 Per Protocol; Complete Time: 07:16 ks 05/25 07:08 Order name: CT Head Brain wo Cont; Complete Time: 07:58 ks 05/25 07:39 Order name: EKG Electrocardiogram EDMS 05/25 09:16 Order name: CONS Physician Consult EDMS 05/25 09:16 Order name: Consistent Carb (ADA) 1800 Chi EDMS 05/25 09:16 Order name: Basic Metabolic Panel EDMS 05/25 09:16 Order name: Basic Metabolic Panel EDMS 05/25 09:16 Order name: CBC with Automated Diff EDMS 05/25 09:16 Order name: CBC with Automated Diff EDMS 05/25 07:08 Order name: O2 Sat Monitoring; Complete Time: 07:16 ks Administered Medications: 08:09 Drug: NS 0.9% 250 ml Route: IV; Rate: bolus; Site: right antecubital; la1 09:27 Follow up: IV Status: Completed infusion la1 Point of Care Testing: Blood Glucose: 07:01 Blood Glucose: 164 mg/dL; oe Ranges: Critical Glucose Levels:Adult <50 mg/dl or >400 mg/dl <40 mg/dl or >180 mg/dl Disposition: 05/25/18 09:01 Hospitalization ordered by Ganesh Bauman for Inpatient Admission. Preliminary diagnosis are Weakness, hypotension, Bigeminy, pulmonary edema. - Bed requested for Intensive Care Unit. - Status is Inpatient Admission. la1 - Condition is Critical. - Problem is new. - Symptoms have improved. UTI on Admission? No Critical care time excluding procedures: 08:59 Critical care time: Bedside Care: 25 minutes, Consultation: 10 minutes, Family wa Intervention: 10 minutes. Total time: 45 minutes Signatures: Dispatcher RudySarahi Oneil RN RN Chandler Chavez RN RN la1 Steven Vines MD MD wa Corrections: (The following items were deleted from the chart) 07:16 07:08 Urine Dipstick-Ancillary ordered. ks la 09:56 09:01 Hospitalization Ordered by Ganesh Bauman MD for Inpatient Admission. Preliminary dw diagnosis is Weakness; hypotension; Bigeminy; pulmonary edema. Bed requested for Intensive Care Unit. Status is Inpatient Admission. Condition is Critical. Problem is new. Symptoms have improved. UTI on Admission? No. ks 10:25 09:56 05/25/2018 09:01 Hospitalization Ordered by Ganesh Bauman MD for Inpatient la1 Admission. Preliminary diagnosis is Weakness; hypotension; Bigeminy; pulmonary edema. Bed requested for Intensive Care Unit. Status is Inpatient Admission. Condition is Critical. Problem is new. Symptoms have improved. UTI on Admission? No.
[2018-05-25] MEDS ORDERED: ACETAMINOPHEN 500 MG TAB PO PRN (09:13)
[2018-05-25 09:19] LABS: Magnesium 2.5 mg/dL (1.8-2.4); Thyroid Stimulating Hormone 1.08 uIU/mL (0.360-3.740)
--- NOTE | 2018-05-25 09:56 | RAD REPORT ---
EXAM DESCRIPTION: Anay Single View05/25/2018 7:27 am CLINICAL HISTORY: Shortness of breath COMPARISON: March 2018 FINDINGS: The patient is in a poor degree of inspiration. The lungs appear clear of acute infiltrat e. The heart is normal size IMPRESSION: No acute abnormalities displayed
--- NOTE | 2018-05-25 11:21 | P.HP ---
Certification for Inpatient Patient admitted to: Inpatient With expected LOS: >2 Midnights Patient will require the following post-hospital care: Home Health Services Practitioner: I am a practitioner with admitting privileges, knowledge of patient current condition, hospital course, and medical plan of care. Services: Services provided to patient in accordance with Admission requirements found in Title 42 Section 412.3 of the Code of Federal Regulations Patient History Date of Service: 05/25/18 Primary Care Provider: eMrna Reason for admission: ESRD with weakness History of Present Illness: Patient is an office patient of [facility]. He has a history of ESRD and PVD. He went to Dr. Tavares and seems to have had a ballon angioplasty on Sun. He had his normal dialysis on . Some report of poor flow in his graft. Is going back to Dr. Clemens next week to address this. His son was taking him today for his regular dialysis day. However the patient was feeling weak. He did not complain of any pain, fever. No chest pain, dizziness or palpations. No sob. Just weakness. So the son brought him to the ER. he did have some bigeminy. HIs postassium was in the normal range. Allergies No Known Drug Allergies Allergy (Verified 08/10/15 08:32) Unknown Home Medications: Aspirin Enteric Coated [ASPIRIN 81 MG EC*] 81 mg PO DAILY 12/31/12 Calcium Acetate [Phoslo*] 2 cap PO TID 12/31/12 Clopidogrel Bisulfate [Plavix*] 75 mg PO DAILY 12/31/12 Gabapentin [Neurontin*] 100 mg PO TID 12/31/12 Pravastatin [Pravachol*] 40 mg PO DAILY 12/31/12 Citalopram [Celexa*] 10 mg PO DAILY 04/15/16 Carbidopa/Levodopa [Carbidopa-Levo 25-100 mg Odt] 1 tab PO BID 09/12/16 Carvedilol [Coreg*] 25 mg PO BID 01/21/18 Calcium Carbonate [Antacid] 2 tab PO TID 03/30/18 Esomeprazole Magnesium [Nexium] 1 cap PO DAILY 03/30/18 Ferrous Fumarate [Hemocyte] 1 tab PO DAILY 03/30/18 Iron/FA/Vit B-Com W/C [Hemocyte Plus*] 1 cap PO DAILY 03/30/18 - Past Medical/Surgical History Diabetic: Yes -: Hypertension -: Neuropathy -: Hyperlipidemia -: ESRD -: DM -: DDD/DJD of the spine -: Anemia of chronic disease -: Hepatitis C -: History of pancreatitis -: Dialysis stent -: LLE Stent -: Right foot sx r/t fx -: vein procedure on r femoral Psychosocial/ Personal History: has recently. - Social History Alcohol use: No CD- Drugs: No Caffeine use: Yes Review of Systems 10-point ROS is otherwise unremarkable General: Weakness, Malaise Physical Examination - Vital Signs Temperature: 98.0 F Blood Pressure: 131/62 Pulse: 61 Respirations: 16 - Physical Exam General: Alert, In no apparent distress HEENT: Atraumatic, PERRLA, Mucous membr. moist/pink, EOMI, Sclerae nonicteric Neck: Supple, 2+ carotid pulse no bruit, No LAD, Without JVD or thyroid abnormality Respiratory: Clear to auscultation bilaterally, Normal air movement Cardiovascular: Regular rate/rhythm, Normal S1 S2 Gastrointestinal: Normal bowel sounds, No tenderness Musculoskeletal: No tenderness Integumentary: No rashes, Venous stasis ulcer (right 1st MTP joint) Neurological: Normal gait, Normal speech, Normal strength at 5/5 x4 extr, Normal tone, Normal affect Lymphatics: No axilla or inguinal lymphadenopathy - Studies Laboratory Data (last 24 hrs) 05/25/18 07:15: Magnesium 2.5 H 05/25/18 07:15: PT 12.5, INR 1.06 05/25/18 07:15: WBC 7.4, Hgb 14.5, Hct 42.9, Plt Count 116 L 05/25/18 07:15: Sodium 135 L, Potassium 3.8, BUN 55 H, Creatinine 8.20 H*, Glucose 165 H, Total Bilirubin 0.6, AST 35, ALT 12, Alkaline Phosphatase 112, Lipase 189 Assessment and Plan - Problems (Diagnosis) (1) Peripheral vascular disease due to secondary diabetes Current Visit: Yes Status: Acute Plan: follows with us in the wound care center. He has just had a revascularization this week. Possible exposure to dye. Possible fatigue from the trip to [facility] (2) Venous ulcer of right lower extremity without varicose veins Current Visit: Yes Status: Acute Plan: will culture the wound. Dry dressings for now (3) Diabetes mellitus Onset Date: 09/13/16 Current Visit: No Status: Chronic Plan: Continue home medication. Will put him on low dose sliding scale (4) End stage renal failure on dialysis Onset Date: 09/13/16 Current Visit: No Status: Chronic Plan: Dr. Hawkins is his dialysis doctor. Has been consulted. Will get him dialysis today. Possible discharge tomorrow. Hopefully dialysis will improve his bigeminy Discharge Plan: Home Plan to discharge in: 24 Hours - Advance Directives Does patient have a Living Will: No Does patient have a Durable POA for Healthcare: No - Code Status/Comfort Care Code Status Assessed: Yes Code Status: Full Code Physician Review: Patient Assessed, Agree with Above Assessment and Plan Critical Care: Yes Time Spent Managing Pts Care (In Minutes): 40
[2018-05-25 11:28] VITALS: BMI 25.9
[2018-05-25] MEDS ORDERED: D50W 25 GM/50 ML SYRINGE IV PRN (11:28)
[2018-05-25] MEDS ORDERED: GLUCAGON 1 MG/VIAL IM PRN (11:28)
[2018-05-25] MEDS: INSULIN -REGULAR HUMAN 50 UNIT/0.5 ML ML SQ SCH ×3 (11:30→20:27)
--- NOTE | 2018-05-25 12:09 | EKG ---
Test Date: 2018-05-25 Test Time: 07:03:45 Paper Spooler: BP MEASUREMENT RESULTS: Intervals: Rate: 70 IA: 202 QRSD: 100 QT: 434 QTc: 468 [place]: P: 69 IA: 202 QRS: -7 T: 66 INTERPRETIVE STATEMENTS: Sinus rhythm with frequent premature ventricular complexes in a pattern of bigeminy Inferior infarct, age undetermined Abnormal ECG Compared to ECG 03/30/2018 11:47:43 Ventricular premature complex(es) now present Sinus tachycardia no longer present Right superior axis no longer present Myocardial infarct finding still present Electronically Signed On 05-25-18 12:07:13 CDT by Sid Yarbrough
[2018-05-25] MEDS: CA ACETATE 667 MG CAP PO SCH ×2 (14:00→20:27)
[2018-05-25] MEDS: GABAPENTIN 100 MG CAP PO SCH ×2 (14:00→20:28)
[2018-05-25] MEDS: CALCIUM CARBONATE CHEW 500MG TAB PO SCH ×2 (14:15→20:28)
[2018-05-25] MEDS: ENOXAPARIN 30 MG/0.3 ML SQ SCH (16:24)
[2018-05-25] MEDS ORDERED: NA CHLORIDE 0.9% 1,000 ML IV PRN (17:26)
[2018-05-25] MEDS ORDERED: MANNITOL 25% 12.5 GM/50 ML VIAL IV PRN (17:26)
[2018-05-25] MEDS ORDERED: ALBUMIN HUMAN 25% 50 ML IV SCH (18:00)
[2018-05-25] MEDS ORDERED: IBUPROFEN 400 MG TAB PO ONE (20:17)
[2018-05-25] MEDS: ATORVASTATIN 10 MG TAB PO SCH (20:28)
[2018-05-25] MEDS: CARVEDILOL 12.5 MG TAB PO SCH (20:28)
[2018-05-25] MEDS ORDERED: CARVEDILOL 25 MG TAB PO SCH (21:00)
[2018-05-26] MEDS ORDERED: NOREPINEPHRINE 4 MG in D5W 250 ML IV PRN (03:21)
[2018-05-26] MEDS ORDERED: NA CHLORIDE 0.9% 250 ML IV ONE (03:21)
[2018-05-26] MEDS ORDERED: D5W 250 ML IV ONE (03:55)
[2018-05-26] MEDS ORDERED: NOREPINEPHRINE 4 MG/4 ML VIAL ONE (03:55)
[2018-05-26 05:52] LABS: Absolute Lymphocytes (CBC) 1.6 K/uL (0.7-4.9); Absolute Monocytes 0.9 K/uL (0.1-1.3); Absolute Neutrophil 2.8 K/uL (1.8-8.0); Basophils % 0.9 % (0-1.3); Eosinophils % 5.6 % (0-4.4); Hematocrit 45.7 % (39.6-49.0); Lymphocytes % 28.2 % (15.3-44.8); MCH 35.2 pg (27.0-35.0); MCV 103.2 fL (80-100); MPV 11.3 fL (7.6-11.3); Monocytes % 16.3 % (3.3-12.3); RBC Red Blood Cell Count 4.42 M/uL (4.33-5.43)
[2018-05-26] MEDS: PANTOPRAZOLE 40MG TABLET PO SCH (06:05)
[2018-05-26 06:09] LABS: Blood Morphology Comment NOT SEEN (NOT SEEN); Platelet Estimate ADEQ; Urine White Blood Cell Casts OK
[2018-05-26 07:09] LABS: Potassium 4.3 mmol/L (3.5-5.1)
[2018-05-26] MEDS: INSULIN -REGULAR HUMAN 50 UNIT/0.5 ML ML SQ SCH ×4 (07:30→22:16)
[2018-05-26] MEDS ORDERED: TRAMADOL HCL 50 MG TAB PO ONE (07:40)
[2018-05-26] MEDS: CLOPIDOGREL 75 MG TABLET PO SCH (08:18)
[2018-05-26] MEDS: FE SULF/FA/VIT B COMP & C TAB PO SCH (08:19)
[2018-05-26] MEDS: CITALOPRAM 10 MG TABLET PO SCH (08:19)
[2018-05-26] MEDS: GABAPENTIN 100 MG CAP PO SCH ×3 (08:19→22:15)
[2018-05-26] MEDS: CA ACETATE 667 MG CAP PO SCH ×3 (08:19→22:14)
[2018-05-26] MEDS: CALCIUM CARBONATE CHEW 500MG TAB PO SCH ×3 (08:19→22:16)
[2018-05-26] MEDS: ASPIRIN EC 81 MG TAB PO SCH (08:19)
[2018-05-26] MEDS: CARVEDILOL 12.5 MG TAB PO SCH ×2 (09:00→22:15)
--- NOTE | 2018-05-26 11:20 | P.PN ---
Subjective Date of Service: 05/26/18 Primary Care Provider: Merna Chief Complaint: ESRD with weakness Subjective: New changes (Patient had hypotension after dialysis. Was on levophed for 2 hours. 2-3mcgs was all that was required) Review of Systems 10-point ROS is otherwise unremarkable Physical Examination - Vital Signs Temperature: 97.5 F Blood Pressure: 116/72 Pulse: 63 Respirations: 16 Pulse Ox (%): 93 - Physical Exam General: Alert, In no apparent distress HEENT: Atraumatic, PERRLA, EOMI Neck: Supple, JVD not distended Respiratory: Clear to auscultation bilaterally, Normal air movement Cardiovascular: Regular rate/rhythm, Normal S1 S2 Gastrointestinal: Normal bowel sounds, No tenderness Musculoskeletal: No tenderness Integumentary: No rashes Neurological: Normal speech, Normal tone, Normal affect Lymphatics: No axilla or inguinal lymphadenopathy Assessment & Plan - Problems (Diagnosis) (1) Peripheral vascular disease due to secondary diabetes Current Visit: Yes Status: Acute Plan: follows with us in the wound care center. He has just had a revascularization this week. Possible exposure to dye. Possible fatigue from the trip to [facility] (2) Venous ulcer of right lower extremity without varicose veins Current Visit: Yes Status: Acute Plan: will culture the wound. Dry dressings for now (3) Diabetes mellitus Onset Date: 09/13/16 Current Visit: No Status: Chronic Plan: Continue home medication. Will put him on low dose sliding scale (4) End stage renal failure on dialysis Onset Date: 09/13/16 Current Visit: No Status: Chronic Plan: Dr. Hawkins is his dialysis doctor. Has been consulted. Will get him dialysis today. Possible discharge tomorrow. Hopefully dialysis will improve his bigeminy Discharge Plan: Home Plan to discharge in: 24 Hours - Code Status/Comfort Care Code Status Assessed: No Code Status: Full Code Physician Review: Patient Assessed, Agree with Above Assessment and Plan Critical Care: Yes Time Spent Managing Pts Care (In Minutes): 20
--- NOTE | 2018-05-26 16:46 | CON ---
Date of Consultation: 05/25/2018 Reason For Consultation: Elevated BUN and creatinine, fluid management, end- stage renal disease. History Of Present Illness: This is a 73-year-old gentleman, well known to me from the dialysis with significant past medical history of end-stage renal disease, on hemodialysis, TTS at [facility]; diabetes complicated with neuropathy and nephropathy; peripheral vascular disease; hep C ; osteoarthritis; GERD. The patient came to the hospital, as found by his son lethargic, weak, and checked his blood pressure. His blood pressure was low, for that reason brought to the ER. In the ER, his blood pressure 70-80 systolic. The patient was having 250 of normal saline. His blood pressure went up to the 150. The patient denied any cough, any diarrhea. No nausea or vomiting. No chest pain. Primary workup, no sign of cardiac insult. Past Medical History: 1. Hypertension. 2. Hyperlipidemia. 3. Diabetes complicated with neuropathy and nephropathy. 4. Osteoarthritis. 5. Hip C. 6. End-stage renal disease, on hemodialysis, TTS. Past Surgical History: 1. Lower extremity bypass. 2. PermCath. 3. AV fistula. Allergies: NO KNOWN DRUG ALLERGIES. Social History: Denies smoking. Denies drinking. Denies drug abuse. Lives with family. Family History: Positive for diabetes and hypertension. Review of Systems: Head and Neck: No red eye. No ear pain. GI: No nausea, no vomiting. : No polyuria. No dysuria. No hematuria. ETHYLENE OXIDE PANELBOARD OPERATOR: Not applicable. Respiratory: No shortness of breath. Cardiovascular: No chest pain. Endocrine: has low blood pressure. no polydepsia Endocrine: No polydipsia. Skin: No rash. Physical Examination: Vital Signs: When I saw the patient, blood pressure 148/88, pulse of 88. Chest: Clear to auscultation. Heart: S1, S2. Systolic murmur. Abdomen: Soft, nontender. No organomegaly. Extremities: No edema. Laboratory Data: WBC 7.4, H and H 14.5/42.9, platelets 160. Sodium 135, potassium 3.8, bicarb 26, BUN 55, creatinine 8.2, calcium of 9. Medications: Home medications include: 1. Omeprazole. 2. Citalopram. 3. Carbidopa. 4. Lyrica. 5. Plavix. 6. Carvedilol. 7. PhosLo. 8. Aspirin. Current medications in the hospital include atorvastatin, PhosLo, citalopram, Plavix, gabapentin, insulin, multivitamin. Assessment And Plan: 1. End-stage renal disease looks to me in normal volume, mild alkalosis. I can do dialysis. We are not going to remove much of fluid. We will dialyze the patient on low potassium bath and we will follow up. 2. Hypertension, currently low blood pressure. We will hold all blood pressure medication. 3. we will do serial cardiac enzyme and EKG. Will follow up with the primary. 4. Diabetes, as by primary. 5. Hypokalemia. The patient is going to be dialyzed . 6. Alkalosis, secondary to dehydration. We are not going to challenge the patient. HARISH Voice ID: [id number] Report ID: [id number] BRANDON
[2018-05-26] MEDS: ENOXAPARIN 30 MG/0.3 ML SQ SCH (17:41)
--- NOTE | 2018-05-26 18:36 | PN ---
Date of Progress Note: 05/26/2018 The patient was admitted with shock low blood pressure. The patient status post dialysis yesterday. Physical Examination: Vital Signs: Blood pressure 118/72, pulse of 63. Chest: Clear to auscultation. Heart: S1, S2. Regular. Systolic murmur. Abdomen: Soft, nontender. Extremities: No edema. Laboratory Data: WBC 5.7, H and H of 15.6/45.7, platelets 106. Sodium 136, potassium 4.3, bicarb 24 , BUN 35, creatinine 6.2, calcium 8.9. Culture still pending. Medications: Current medications the patient on include, 1.Aspirin. 2.Atorvastatin. 3.Carvedilol. 4.Gabapentin. 5.Citalopram. 6.Insulin. 7.Multivitamin. 8.Pantoprazole. Assessment And Plan: 1.End-stage renal disease. Normal volume currently status post dialysis. We will continue dialysis Sunday, Sunday, Sunday. 2.Hypertension with hypotension on admission. We will hold all blood pressure medication. 3.Possible of sepsis, septic shock. Continue antibiotic. The patient weaned from the pressor. We will follow up the patient. 4.Cardiac arrhythmia, PVC. Serial cardiac enzyme was negative. We will follow up with Cardiology and hospitalist. 5.Diabetes, as by primary. MEREDITH/ANDRE Voice ID: [id number] Report ID: [id number]
[2018-05-26] MEDS: ATORVASTATIN 10 MG TAB PO SCH (22:13)
[2018-05-27] MEDS: PANTOPRAZOLE 40MG TABLET PO SCH (05:56)
--- NOTE | 2018-05-27 06:57 | EKG ---
Test Date: 2018-05-25 Test Time: 08:02:30 Back Joiner: MATTIE MEASUREMENT RESULTS: Intervals: Rate: 60 DE: 212 QRSD: 110 QT: 452 QTc: 452 Newell: P: 39 DE: 212 QRS: -60 T: 69 INTERPRETIVE STATEMENTS: Sinus rhythm with 1st degree AV block with frequent premature ventricular complexes and premature atrial complexes Left axis deviation Inferior infarct, age undetermined Abnormal ECG Compared to ECG 05/25/2018 07:03:45 Atrial premature complex(es) now present First degree AV block now present Left-axis deviation now present Myocardial infarct finding still present Electronically Signed On 05-27-18 06:51:56 CDT by Sid Yarbrough
[2018-05-27 07:07] LABS: Albumin 2.7 g/dL (3.4-5.0); Bilirubin Total 0.4 mg/dL (0.2-1.0); Potassium 4.3 mmol/L (3.5-5.1); Protein, Total 6.9 g/dL (6.4-8.2)
[2018-05-27 07:17] LABS: Absolute Lymphocytes (CBC) 1.7 K/uL (0.7-4.9); Absolute Monocytes 0.8 K/uL (0.1-1.3); Absolute Neutrophil 2.9 K/uL (1.8-8.0); Basophils % 0.8 % (0-1.3); Eosinophils % 6.1 % (0-4.4); Hematocrit 43.5 % (39.6-49.0); Lymphocytes % 29.5 % (15.3-44.8); MCH 35.6 pg (27.0-35.0); MPV 10.7 fL (7.6-11.3); Monocytes % 13.7 % (3.3-12.3); RBC Red Blood Cell Count 4.18 M/uL (4.33-5.43)
[2018-05-27] MEDS: INSULIN -REGULAR HUMAN 50 UNIT/0.5 ML ML SQ SCH ×3 (07:30→16:30)
--- NOTE | 2018-05-27 08:25 | CON ---
History And Physical: The patient is a 73-year-old Latin-Omani male. He gets his care by Dr. Mahoney rs from a cardiovascular standpoint. Apparently, he has had bilateral SFA stent, one of t hem . He also has had a stent in his AV fistula on the left side. He gets his dialysis on Sunday, , and Sunday, and apparently after dialysis today, he became hypotensive. He was brought to the emergency room, was found to have sinus bradycardia and . The patient no c hest pain, nausea, vomiting, diaphoresis, PND, orthopnea, pedal edema, palpitations, or syncope. ___ altered mental status. Allergies: NONE. Review of Systems: Negative. Social History: Negative. Family History: Negative. Past Medical History: Include parkinsonism; hypertension; end-stage renal disease, on hemodialysis; diabetes; dyslipidemia; peripheral vascular disease. Medications: Include Neurontin, Pravachol, Nexium, Plavix, Celexa, Coreg, Sinemet, and aspirin, as w ell as . Physical Examination: General: He was alert and oriented x3. No complaints. Vital Signs: Stable. He is in a sinus rhythm at 80s with occasional PVCs. HEENT: Negative. Neck: Supple with no bruit. Chest: Clear to auscultation and percussion. Cardiac: Revealed a regular rhythm and rate without any gallops or rubs. He had a 2/6 systolic ejec tion murmur at the right third intercostal space that did not radiate. Abdomen: Benign. EXTREMITIES: Revealed no clubbing, cyanosis, or edema. Diagnostic Data: Chest x-ray was negative. CT of the head was negative. EKG showed sinus rhythm wi th occasional PVCs. Impression And Plan: 1.Symptoms of hypotension, probably secondary to dialysis. I doubt that the bradycardia and the PVC s are causing his hypotension, and I do not think he is a candidate for a pacemaker at this point. I f Mr. Mendez stays here till Sunday for any reason, I think an echocardiogram would be reasonable. I would like him to get follow up with Dr. Tavares in for that purpose. Consider ing his slight bradycardia and hypotension, I would decrease his Coreg to 12.5 b.i.d. when he goes ho me. 2.His other problems including dyslipidemia, neuropathy, parkinsonism, and end-stage renal disease, as well as peripheral vascular disease seem to be stable at this point. From my standpoint, he can g o home whenever it is okay with Dr. Bauman. CONSTANTIN/ANDRE Voice ID: [id number] Report ID: [id number]
[2018-05-27] MEDS: CA ACETATE 667 MG CAP PO SCH ×2 (08:59→13:26)
[2018-05-27] MEDS: CALCIUM CARBONATE CHEW 500MG TAB PO SCH ×2 (09:00→13:26)
[2018-05-27] MEDS: CARVEDILOL 12.5 MG TAB PO SCH (09:00)
[2018-05-27] MEDS: FE SULF/FA/VIT B COMP & C TAB PO SCH (09:00)
[2018-05-27] MEDS: GABAPENTIN 100 MG CAP PO SCH ×2 (09:00→13:26)
[2018-05-27] MEDS: CLOPIDOGREL 75 MG TABLET PO SCH (09:00)
[2018-05-27] MEDS: ASPIRIN EC 81 MG TAB PO SCH (09:00)
[2018-05-27] MEDS: CITALOPRAM 10 MG TABLET PO SCH (09:00)
--- NOTE | 2018-05-27 10:34 | P.DS ---
Admission Date: 05/25/18 Discharge Date: 05/27/18 Primary Care Provider: Merna Disposition: ROUTINE DISCHARGE Discharge Condition: GOOD Reason for Admission: ESRD with weakness - Problems (1) End stage renal failure on dialysis Onset Date: 09/13/16 Current Visit: No Status: Chronic (2) Peripheral vascular disease due to secondary diabetes Current Visit: Yes Status: Acute (3) Venous ulcer of right lower extremity without varicose veins Current Visit: Yes Status: Acute (4) Diabetes mellitus Onset Date: 09/13/16 Current Visit: No Status: Chronic Brief History of Present Illness: Patient is an office patient of [employer]. He has a history of ESRD and PVD. He went to Dr. Tavares and seems to have had a ballon angioplasty on Sun. He had his normal dialysis on . Some report of poor flow in his graft. Is going back to Dr. Clemens next week to address this. His son was taking him today for his regular dialysis day. However the patient was feeling weak. He did not complain of any pain, fever. No chest pain, dizziness or palpations. No sob. Just weakness. So the son brought him to the ER. he did have some bigeminy. HIs postassium was in the normal range. Hospital Course: Patient was admitted to the unit for dialysis. He has negative blood cultures. He was tired after dialysis. Had a low bp and was on levophed for 1 hour. He has been off the levophed for over 24 hours. Will disharge him home. follow up in the wound care center with me. As well as Dr Hawkins with for dialysis Vital Signs/Physical Exam: Temp Pulse Resp BP Pulse Ox 97.9 F 66 21 H 141/53 H 97 05/27/18 04:00 05/27/18 10:00 05/27/18 10:00 05/27/18 10:00 05/27/18 10:00 General: Alert, In no apparent distress HEENT: Atraumatic, PERRLA, EOMI Neck: Supple, JVD not distended Respiratory: Clear to auscultation bilaterally, Normal air movement Cardiovascular: Regular rate/rhythm, Normal S1 S2 Gastrointestinal: Normal bowel sounds, No tenderness Musculoskeletal: No tenderness Integumentary: No rashes Neurological: Normal speech, Normal tone, Normal affect Lymphatics: No axilla or inguinal lymphadenopathy Laboratory Data at Discharge: WBC 5.8 K/uL (4.3-10.9) 05/27/18 05:45 Hgb 14.9 g/dL (13.6-17.9) 05/27/18 05:45 Hct 43.5 % (39.6-49.0) 05/27/18 05:45 Plt Count 114 K/uL (152-406) L 05/27/18 05:45 PT 12.5 SECONDS (9.5-12.5) 05/25/18 07:15 INR 1.06 05/25/18 07:15 Sodium 133 mmol/L (136-145) L 05/27/18 05:45 Potassium 4.3 mmol/L (3.5-5.1) 05/27/18 05:45 BUN 53 mg/dL (7-18) H 05/27/18 05:45 Creatinine 7.60 mg/dL (0.55-1.3) H* D 05/27/18 05:45 Glucose 145 mg/dL (74-106) H 05/27/18 05:45 Magnesium 2.5 mg/dL (1.8-2.4) H 05/25/18 07:15 Total Bilirubin 0.4 mg/dL (0.2-1.0) 05/27/18 05:45 AST 27 U/L (15-37) 05/27/18 05:45 ALT 13 U/L (12-78) 05/27/18 05:45 Alkaline Phosphatase 126 U/L (45-117) H 05/27/18 05:45 Troponin I Cancelled 05/25/18 21:00 Lipase 189 U/L (73-393) 05/25/18 07:15 Home Medications: Aspirin Enteric Coated [ASPIRIN 81 MG EC*] 81 mg PO DAILY 12/31/12 Calcium Acetate [Phoslo*] 2 cap PO TID 12/31/12 Clopidogrel Bisulfate [Plavix*] 75 mg PO DAILY 12/31/12 Gabapentin [Neurontin*] 100 mg PO TID 12/31/12 Pravastatin [Pravachol*] 40 mg PO DAILY 12/31/12 Citalopram [Celexa*] 10 mg PO DAILY 04/15/16 Carbidopa/Levodopa [Carbidopa-Levo 25-100 mg Odt] 1 tab PO BID 09/12/16 Carvedilol [Coreg*] 25 mg PO BID 01/21/18 Calcium Carbonate [Antacid] 2 tab PO TID 03/30/18 Esomeprazole Magnesium [Nexium] 40 mg PO DAILY 03/30/18 Ferrous Fumarate [Hemocyte] 1 tab PO DAILY 03/30/18 Iron/FA/Vit B-Com W/C [Hemocyte Plus*] 1 cap PO DAILY 03/30/18 Pregabalin [Lyrica] 75 mg PO DAILY 05/25/18 Diet: ADA Activity: Ad reji Physician Review: Patient Assessed, Agree with Above Assessment and Plan Time spent managing pt's care (in minutes): 30
[2018-05-27] MEDS: ENOXAPARIN 30 MG/0.3 ML SQ SCH (17:00)
[2018-05-27 18:53] VITALS: TEMP 96.2
[2018-05-27 19:22] VITALS: BP 143/76
[2018-05-27 20:35] VITALS: O2SAT 97
--- NOTE | 2018-05-28 02:44 | PN ---
Date of Progress Note: 05/27/2018 Chief Complaint: End-stage renal disease, on dialysis. History Of Present Illness: The patient remains in ICU. He presented to the hospital with generaliz ed weakness, hypotension, and shock. Blood pressure has improved. Dialysis is scheduled for today f or metabolic clearance. Review of Systems: Respiratory: The patient denies PND or orthopnea. Cardiovascular: Denies chest pain or palpitations. Physical Examination: Vital Signs: Blood pressure 105/70, heart rate 63. Chest: Clear to auscultation bilaterally. Heart: S1, S2. Systolic murmur 2/6 over the left lower sternal border. Abdomen: Soft and benign. Extremities: No edema. Impression And Plan: 1.End-stage renal disease. The patient will continue dialysis. Ultrafiltration will be minimal, an d plan is to monitor blood pressure and continue normal saline as needed to prevent intradialytic hyp otension. 2.Possible sepsis, septic shock. The patient will continue antibiotics. The patient was found to h ave bacteremia wound infection. Continue antibiotics accordingly. 3.Diabetes mellitus. Continue insulin per sliding scale. EB/MODL Voice ID: [id number] Report ID: [id number]
[2018-05-28 19:41] LABS: HBsAG Nonreactive (Nonreactive)
== END 2018-05-27 19:45 | disposition home or self-care (01) | DRG 682 ==
LOC: ER 06:43 → ERHOLD 09:12 → 3RD-ICU 10:04
PROVIDERS: ADMIT Internal Medicine; ATTEND Internal Medicine
PROC: 5A1D70Z Performance of Urinary Filtration, Intermittent, Less than 6 Hours Per Day (ICD-10-PCS; principal; 2018-05-25)
PROC: 5A1D70Z Performance of Urinary Filtration, Intermittent, Less than 6 Hours Per Day (ICD-10-PCS; 2018-05-27)
DX: I12.0 Hypertensive chronic kidney disease with stage 5 chronic kidney disease or end stage renal disease (principal); N18.6 End stage renal disease; E87.3 Alkalosis; E11.22 Type 2 diabetes mellitus with diabetic chronic kidney disease; Z99.2 Dependence on renal dialysis; I87.8 Other specified disorders of veins; B19.20 Unspecified viral hepatitis C without hepatic coma; E78.5 Hyperlipidemia, unspecified; E11.40 Type 2 diabetes mellitus with diabetic neuropathy, unspecified; E87.6 Hypokalemia; E86.0 Dehydration; I95.3 Hypotension of hemodialysis; E11.51 Type 2 diabetes mellitus with diabetic peripheral angiopathy without gangrene
CPT/HCPCS: 36415; 70450; 71045; 80048; 80053; 80076; 82550; 82962; 83036; 83605; 83690; 83735; 83880; 84145; 84443; 84484; 85025; 85610; 86317; 86704; 86706; 87040; 87070; 87077; 87186; 87205; 87340; 90935; 93005; 96360; 99291; 99292; J1650; J7060

== ENCOUNTER 2018-06-19 11:35 | Inpatient (IN) | payer OTHER ==
--- OUTSIDE RECORDS SUMMARY | 2018-06-19 11:53 | XMS REPORT | Clinical Summary ---
:1945 Author Organization [facility] Address [address] [place] [address] Phone Care Team Providers Name Role Phone [...] Problem Noted Date Dialysis AV fistula malfunction ([facility]) 09/15/2017 ESRD (end stage renal disease) ([facility]) Encounters Date Type Specialty Care Team Description 09/15/2017 - Hospital Encounter General Internal Bakari, Malfunction of 09/17/2017 Medicine ella Gutierrez MD dialysis fistula, Gurmeet, initial encounter Kimberly Samuel, ([facility]);Essential hypertension;ESRD Iliana Cowart, (end stage renal MD disease) on dialysis ([facility]);[id number]-fze endent diabetes mellitus with neurological complications ([facility]);Other hyperlipidemia;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[facility]) after 06/18/2017 Family History Medical History Relation Name Comments [...] Taken Blood Pressure 120/64 09/17/2017 8:39 PM [employer] DEPUTY DIRECTOR Pulse 92 09/17/2017 8:39 PM [employer] DEPUTY DIRECTOR Temperature 36.6 C (97.8 F) 09/17/2017 8:39 PM [employer] DEPUTY DIRECTOR Respiratory Rate 19 09/17/2017 8:39 PM [employer] DEPUTY DIRECTOR Oxygen Saturation 94% 09/17/2017 8:39 PM [employer] DEPUTY DIRECTOR Inhaled Oxygen Concentration - - Weight 80.9 kg (178 lb 4 oz) 09/17/2017 6:00 AM STATE [employer]ATIONS DEPUTY DIRECTOR Height 170.2 cm (5' 7") 09/17/2017 6:00 AM [employer]ATIONS DEPUTY DIRECTOR Body Mass Index 27.92 09/17/2017 6:00 AM STATE [employer]ATIONS DEPUTY DIRECTOR Plan of Treatment Not on file Results [...] Ref Range POC-Glucose Meter 76Comment: TESTED AT [facility] [address] [place] [address] 70 - 110 mg/dL 26077 Specimen Performing Laboratory Blood [facility] [address] [address] IR Thromobolysis/Declot AV Fistula/Graft (09/17/2017 12:07 PM) [...] catheter for an Amplatz wire. A 7 Wallisian sheath was placed at the access site. [...] MD Report Verified Date/Time:09/18/2017 14:11:58 Reading Location: [place] [id number] Angio Body Reading Room Procedure Note Interface, External Ris In - 09/18/2017 2:14 PM [employer]ATIONS DEPUTY DIRECTOR FINAL REPORT History: End-stage renal disease, thrombosed [...] catheter for an Amplatz wire. A 7 Wallisian sheath was placed at the access site. [...] Report Verified Date/Time: 09/18/2017 14:11:58 Reading Location: [place] [address] Angio Body Reading Room Calcium, Ionized (09/17/2017 5:40 AM) Component Value Ref Range Calcium, Ion 1.00 (L) 1.12 - 1.27 mmol/L pH, Blood 7.27 Specimen Performing Laboratory Blood - Arm, Right [address] [address] CBC with platelet count + automated diff [...] % Specimen Performing Laboratory Blood - Arm, [address] [address] Hepatitis B surface antigen (09/17/2017 5:40 AM)Only the most recent of2 resultswithin the time period is included. Component Value Ref Range hepatitis B Surface Ag Nonreactive Nonreactive Specimen Performing Laboratory Blood - Arm, [place] [address] Narrative Pls add to specimen drawn earlier. Prothrombin time/INR (09/17/2017 5:40 AM)Only the most recent of2 resultswithin the time period is included. Component Value Ref Range Protime 14.2 11.7 - 14.7 seconds INR 1.1 <=5.9 Specimen Performing Laboratory Blood - Arm, [place] [address] Narrative RECOMMENDED COUMADIN/WARFARIN INR THERAPY RANGES STANDARD [...] Status --------- ------ CBC with platelet count ...[[id number]]AbnormalFinal result Please view results for these tests on the individual orders. Phosphorus (09/17/2017 5:40 AM)Only the most recent of2 resultswithin the time period is included. Component Value Ref Range Phosphorus 6.0 (H) 2.3 - 4.7 mg/dL Specimen Performing Laboratory Blood - Arm, [address] [address] Magnesium (09/17/2017 5:40 AM)Only the most recent of2 resultswithin the time period is included. Component Value Ref Range Magnesium 2.3 1.6 - 2.6 mg/dL Specimen Performing Laboratory Blood - Arm, [address] [address] Hemoglobin A1c (09/17/2017 5:40 AM) Component Value Ref Range Hemoglobin A1C 7.0 (H) 4.3 - 6.1 % Specimen Performing Laboratory Blood - Arm, [address] [address] Basic metabolic panel (09/17/2017 5:40 AM)Only the [...] PATIENTS. Specimen Performing Laboratory Blood - Arm, [address] [address] IR Non-tunneled Catheter - Central Line/Kieran Temporary (09/16/2017 11:19 AM) Specimen Performing Laboratory GE RIS Narrative FINAL REPORT Nontunneled dialysis catheter insertion, 09/16/2017. History: Left upper extremity AV fistula thrombosed. Modality: Fluoroscopy and sonography. Sedation: None. Education Professional:Edgar Chandler MD. Enginehouse Brakeman:None. Approach: Right internal jugular vein Estimated blood [...] MD Report Verified Date/Time:09/16/2017 11:23:57 Reading Location: [place] [address] Angio Body Reading Room Procedure Note Interface, External Ris In - 09/16/2017 11:26 AM [employer] DEPUTY DIRECTOR FINAL REPORT Nontunneled dialysis catheter insertion, 09/16/2017. History: Left upper extremity AV fistula thrombosed. Modality: Fluoroscopy and sonography. Sedation: None. Education Professional: Edgar Chandler MD. Enginehouse Brakeman: None. Approach: Right internal jugular vein Estimated [...] Report Verified Date/Time: 09/16/2017 11:23:57 Reading Location: [place] [address] Angio Body Reading Room after 06/18/2017
--- OUTSIDE RECORDS SUMMARY | 2018-06-19 11:54 | XMS REPORT ---
:1945 [facility] Address [address] [place] [address] Dr. Aviles [address] [place] [id number] Care Team Providers Name Role Phone ANN [...] PATIENT A-V GRAFT 14:11:00 tunneled dialysis ID: [id number] catheterReason for History: End-stage exam:->Clotted fistula renal [...] catheter for an Amplatz wire. A 7 Telugu sheath was placed at the access site. [...] MDReport Verified Date/Time: 09/18/2017 14:11:58 Reading Location: [place] [address] Angio Body Reading Room -GLUCOSE METER 2017-09-17 13:43:00 Test Item Value Reference Range Comments POC-GLUCOSE METER (BEAKER) (test 76 mg/dL 70-110 TESTED AT [facility] [address] [facility] wvid=[id number]) [facility] [address] HEMOGLOBIN [id number] 08:02:00 Test Item Value Reference Range Comments HEMOGLOBIN A1C (BEAKER) (test zvle=509) 7.0 % 4.3-6.1 BASIC METABOLIC [id number] 07:34:00 Test Item Value Reference Range Comments SODIUM (BEAKER) (test 140 meq/L 136-145 toek=049) POTASSIUM (BEAKER) (test 5.0 meq/L 3.5-5.1 zkow=674) CHLORIDE (BEAKER) (test 101 meq/L 98-107 nvzl=333) CO2 (BEAKER) (test 22 meq/L 22-29 fejn=242) BLOOD UREA NITROGEN 87 mg/dL 7-21 (BEAKER) (test mhwc=845) CREATININE (BEAKER) (test 10.99 mg/dL 0.57-1.25 wneg=859) GLUCOSE RANDOM (BEAKER) 87 mg/dL 70-105 (test ziof=904) CALCIUM (BEAKER) (test 7.8 mg/dL 8.4-10.2 pzgj=441) EGFR (BEAKER) (test 5 mL/min/1.73 sq m ESTIMATED GFR IS NOT mksv=5047) ACCURATE CREATININE CLEARANCE IN PREDICTING GLOMERULAR FILTRATION RATE. ESTIMATED GFR IS NOT APPLICABLE FOR DIALYSIS PATIENTS. [id number] 07:28:00 Test Item Value Reference Range Comments PHOSPHORUS (BEAKER) (test lwln=543) 6.0 mg/dL 2.3-4.7 [id number] 07:28:00 Test Item Value Reference Range Comments MAGNESIUM (BEAKER) (test ucfu=274) 2.3 mg/dL 1.6-2.6 CALCIUM, [id number] 07:18:00 Test Item Value Reference Range Comments CALCIUM IONIZED (BEAKER) (test hdmf=256) 1.00 mmol/L 1.12-1.27 PH, BLOOD (BEAKER) (test khtf=1444) 7.27 HEPATITIS B SURFACE [id number] 07:11:00 Test Item Value Reference Range Comments HEPATITIS B SURFACE ANTIGEN (2) (BEAKER) (test Nonreactive Nonreactive iefz=4738) Pls add to specimen drawn earlier.POCT-GLUCOSE [id number] 07:06:00 Test Item Value Reference Range Comments POC-GLUCOSE METER (BEAKER) 118 mg/dL 70-110 TESTED AT [facility] [address] [facility] (test vkpc=1126) [facility] [address] PROTHROMBIN [id number] 06:14:00 Test Item Value Reference Range Comments PROTIME (BEAKER) (test llte=138) 14.2 seconds 11.7-14.7 INR (BEAKER) (test cqqa=177) 1.1 <=5.9 RECOMMENDED COUMADIN/WARFARIN INR THERAPY RANGESSTANDARD DOSE: 2.0 - 3.0 Includes: PROPHYLAXIS forvenous thrombosis, systemic embolization; TREATMENT for venous thrombosis and/or pulmonary embolus.HIGH RISK: Target INR is 2.5-3.5 for patients with mechanical heart valves.CBC W/PLT COUNT & AUTO [id number] 06:04:00 Test Item Value Reference Range Comments WHITE BLOOD CELL COUNT (BEAKER) (test rbfy=749) 5.7 K/ L 3.5-10.5 RED BLOOD CELL COUNT (BEAKER) (test wmgc=736) 3.78 M/ L 4.63-6.08 HEMOGLOBIN (BEAKER) (test odnf=217) 13.0 GM/DL 13.7-17.5 HEMATOCRIT (BEAKER) (test pkwy=124) 39.4 % 40.1-51.0 MEAN CORPUSCULAR VOLUME (BEAKER) (test gslj=671) 104.2 fL 79.0-92.2 MEAN CORPUSCULAR HEMOGLOBIN (BEAKER) (test 34.4 pg 25.7-32.2 szsa=948) MEAN CORPUSCULAR HEMOGLOBIN CONC (BEAKER) (test 33.0 GM/DL 32.3-36.5 unyq=722) RED CELL DISTRIBUTION WIDTH (BEAKER) (test 14.1 % 11.6-14.4 czql=575) PLATELET COUNT (BEAKER) (test ydhn=443) 82 K/CU MM 150-450 MEAN PLATELET VOLUME (BEAKER) (test vbnw=481) 13.3 fL 9.4-12.4 NUCLEATED RED BLOOD CELLS (BEAKER) (test 0 /100 WBC 0-0 oxfy=211) NEUTROPHILS RELATIVE PERCENT (BEAKER) (test 62 % sfuy=859) LYMPHOCYTES RELATIVE PERCENT (BEAKER) (test 23 % qmyz=902) MONOCYTES RELATIVE PERCENT (BEAKER) (test 11 % eapn=383) EOSINOPHILS RELATIVE PERCENT (BEAKER) (test 4 % aayg=741) BASOPHILS RELATIVE PERCENT (BEAKER) (test 1 % soxo=049) NEUTROPHILS ABSOLUTE COUNT (BEAKER) (test 3.53 K/ L 1.78-5.38 pfua=918) LYMPHOCYTES ABSOLUTE COUNT (BEAKER) (test 1.30 K/ L 1.32-3.57 isbc=107) MONOCYTES ABSOLUTE COUNT (BEAKER) (test xpgz=614) 0.62 K/ L 0.30-0.82 EOSINOPHILS ABSOLUTE COUNT (BEAKER) (test 0.22 K/ L 0.04-0.54 ihtr=849) BASOPHILS ABSOLUTE COUNT (BEAKER) (test suxr=640) 0.03 K/ L 0.01-0.08 IMMATURE GRANULOCYTES-RELATIVE PERCENT (BEAKER) 1 % 0-1 (test nzfl=2057) POCT-GLUCOSE [id number] 22:23:00 Test Item Value Reference Range Comments POC-GLUCOSE METER (BEAKER) 185 mg/dL 70-110 TESTED AT [facility] [address] [facility] (test lmcz=6060) [place] [id number] POCT-GLUCOSE [id number] 21:27:00 Test Item Value Reference Range Comments POC-GLUCOSE METER (BEAKER) 198 mg/dL 70-110 TESTED AT [address] (test vgbc=6995) [place] [id number] POCT-GLUCOSE [id number] 17:43:00 Test Item Value Reference Range Comments POC-GLUCOSE METER (BEAKER) 164 mg/dL 70-110 TESTED AT [address] (test xbuo=6217) [place] [address] HEPATITIS B SURFACE [id number] 15:14:00 Test Item Value Reference Range Comments HEPATITIS B SURFACE ANTIGEN (2) (BEAKER) (test Nonreactive Nonreactive vhxz=7618) Pls add to specimen drawn earlier.BASIC METABOLIC [id number] 13:34:00 Test Item Value Reference Range Comments SODIUM (BEAKER) (test 140 meq/L 136-145 rdax=954) POTASSIUM (BEAKER) (test 5.4 meq/L 3.5-5.1 orie=752) CHLORIDE (BEAKER) (test 101 meq/L 98-107 uiig=145) CO2 (BEAKER) (test 19 meq/L 22-29 qfvt=596) BLOOD UREA NITROGEN 123 mg/dL 7-21 (BEAKER) (test pqsv=062) CREATININE (BEAKER) (test 12.96 mg/dL 0.57-1.25 fblm=009) GLUCOSE RANDOM (BEAKER) 79 mg/dL 70-105 (test qjsm=472) CALCIUM (BEAKER) (test 7.9 mg/dL 8.4-10.2 fcee=325) EGFR (BEAKER) (test 4 mL/min/1.73 sq m ESTIMATED GFR IS NOT ylit=6970) ACCURATE CREATININE CLEARANCE IN PREDICTING GLOMERULAR FILTRATION RATE. ESTIMATED GFR IS NOT APPLICABLE FOR DIALYSIS PATIENTS. [id number] 13:24:00 Test Item Value Reference Range Comments MAGNESIUM (BEAKER) (test uaut=690) 2.3 mg/dL 1.6-2.6 [id number] 13:24:00 Test Item Value Reference Range Comments PHOSPHORUS (BEAKER) (test qtev=894) 6.2 mg/dL 2.3-4.7 POCT-GLUCOSE [id number] 12:20:00 Test Item Value Reference Range Comments POC-GLUCOSE METER (BEAKER) 84 mg/dL 70-110 TESTED AT [facility] [address] [facility] (test ales=9536) [facility] [address] ANG, NON-TUNNELED CATH >5 Y.O. [id number] 11:23:00Reason for exam:-> please declot the AV fistula, if unable to do that he needs catheter exchangeFINAL REPORT Nontunneled dialysis catheter insertion, 09/16/2017. History: Left upper extremity AV fistula thrombosed. Modality: Fluoroscopy and sonography. Sedation: None. Section Leader: Edgar Chandler MD. Sound Mixer: None. Approach: Right internal jugular vein Estimated [...] Chandlereport Verified Date/Time: 2017 11:23:57 Reading Location: [place] [id number] AngioBody Reading Room POCT- GLUCOSE [id number] 07:38:00 Test Item Value Reference Range Comments POC-GLUCOSE METER (BEAKER) 89 mg/dL 70-110 TESTED AT [address] (test itlj=5480) [place] [address] PROTHROMBIN [id number] 05:19:00 Test Item Value Reference Range Comments PROTIME (BEAKER) (test mywu=260) 14.8 seconds 11.7-14.7 INR (BEAKER) (test fdyq=816) 1.2 <=5.9 RECOMMENDED COUMADIN/WARFARIN INR THERAPY RANGESSTANDARD DOSE: 2.0 - 3.0 Includes: PROPHYLAXIS forvenous thrombosis, systemic embolization; TREATMENT for venous thrombosis and/or pulmonary embolus.HIGH RISK: Target INR is 2.5-3.5 for patients with mechanical heart valves.POCT-GLUCOSE [id number] 23:26:00 Test Item Value Reference Range Comments POC-GLUCOSE METER (BEAKER) 261 mg/dL 70-110 TESTED AT [address] (test dcly=2968) [place] [id number]
[2018-06-19 14:12] LABS: Absolute Lymphocytes (CBC) 1.5 K/uL (0.7-4.9); Absolute Monocytes 0.7 K/uL (0.1-1.3); Absolute Neutrophil 5.2 K/uL (1.8-8.0); Basophils % 0.5 % (0-1.3); Eosinophils % 3.7 % (0-4.4); Hematocrit 46.9 % (39.6-49.0); Lymphocytes % 19.7 % (15.3-44.8); MCV 103.6 fL (80-100); MPV 11.5 fL (7.6-11.3); Monocytes % 9.4 % (3.3-12.3); RBC Red Blood Cell Count 4.53 M/uL (4.33-5.43)
[2018-06-19 14:13] LABS: Protime INR 1.04
[2018-06-19] MEDS ORDERED: VANCOMYCIN/NS 1 gm 1 GM/250 ML BAG IV ONE (14:15)
[2018-06-19] MEDS ORDERED: Meropenem 500 MG in NA CHLORIDE 0.9% 100 ML IV ONE (14:15)
[2018-06-19 14:24] LABS: Potassium 4.2 mmol/L (3.5-5.1)
[2018-06-19 14:35] LABS: Blood Morphology Comment NOT SEEN (NOT SEEN); Platelet Estimate DECR; Urine White Blood Cell Casts OK
[2018-06-19] MEDS ORDERED: VANCOMYCIN 500 MG in NA CHLORIDE 0.9% 100 ML IVPB SCH (15:15)
--- NOTE | 2018-06-19 16:23 | P.HP ---
Certification for Inpatient Patient admitted to: Inpatient With expected LOS: >2 Midnights Practitioner: I am a practitioner with admitting privileges, knowledge of patient current condition, hospital course, and medical plan of care. Services: Services provided to patient in accordance with Admission requirements found in Title 42 Section 412.3 of the Code of Federal Regulations Patient History Date of Service: 06/19/18 Primary Care Provider: Merna Reason for admission: Diabetic foot ulcer History of Present Illness: Patient came to the wound care clinic today for diabetic ulcers on both feet. His right greater toe wound has worsened with increased sluffing of the skin and increased darkening. He states that this is painful. Considering he was doing this despite outpatient treatment decided to admit for iv antibiotics and podiatry consult. He has no complaints of fevers or chills at this time. Allergies No Known Drug Allergies Allergy (Verified 08/10/15 08:32) Unknown Home Medications: Aspirin Enteric Coated [ASPIRIN 81 MG EC*] 81 mg PO DAILY 12/31/12 Calcium Acetate [Phoslo*] 2 cap PO TID 12/31/12 Clopidogrel Bisulfate [Plavix*] 75 mg PO DAILY 12/31/12 Gabapentin [Neurontin*] 100 mg PO TID 12/31/12 Pravastatin [Pravachol*] 40 mg PO DAILY 12/31/12 Citalopram [Celexa*] 10 mg PO DAILY 04/15/16 Carbidopa/Levodopa [Carbidopa-Levo 25-100 mg Odt] 1 tab PO BID 09/12/16 Carvedilol [Coreg*] 25 mg PO BID 01/21/18 Calcium Carbonate [Antacid] 2 tab PO TID 03/30/18 Esomeprazole Magnesium [Nexium] 40 mg PO DAILY 03/30/18 Ferrous Fumarate [Hemocyte] 1 tab PO DAILY 03/30/18 Iron/FA/Vit B-Com W/C [Hemocyte Plus*] 1 cap PO DAILY 03/30/18 Pregabalin [Lyrica] 75 mg PO DAILY 05/25/18 Ciprofloxacin HCl [Cipro 500 MG Tablet] 500 mg PO BID 7 Days #14 tab 05/27/18 - Past Medical/Surgical History Has patient received pneumonia vaccine in the past: Yes Diabetic: Yes -: Hypertension -: Neuropathy -: Hyperlipidemia -: ESRD -: DM -: DDD/DJD of the spine -: Anemia of chronic disease -: Hepatitis C -: History of pancreatitis -: Dialysis stent -: LLE Stent -: Right foot sx r/t fx -: vein procedure on r femoral Psychosocial/ Personal History: has recently. - Social History Smoking Status: Never smoker Alcohol use: No CD- Drugs: No Caffeine use: Yes Place of Residence: Home Review of Systems 10-point ROS is otherwise unremarkable Integumentary: Other (diabetic ulcer on his right great toe and left 2nd toe, both dorsal.) Physical Examination - Vital Signs Temperature: 97.5 F Blood Pressure: 156/70 Pulse: 73 Respirations: 18 Pulse Ox (%): 96 - Physical Exam General: Alert, In no apparent distress HEENT: Atraumatic, PERRLA, Mucous membr. moist/pink, EOMI, Sclerae nonicteric Neck: Supple, 2+ carotid pulse no bruit, No LAD, Without JVD or thyroid abnormality Respiratory: Clear to auscultation bilaterally, Normal air movement Cardiovascular: Regular rate/rhythm, Normal S1 S2 Gastrointestinal: Normal bowel sounds, No tenderness Musculoskeletal: No tenderness Integumentary: No rashes, Diabetic ulcer (on right great toe and 2nd left toe) Neurological: Normal gait, Normal speech, Normal strength at 5/5 x4 extr, Normal tone, Normal affect Lymphatics: No axilla or inguinal lymphadenopathy - Studies Laboratory Data (last 24 hrs) 06/19/18 13:45: Sodium 133 L, Potassium 4.2, BUN 42 H, Creatinine 6.80 H*, Glucose 173 H 06/19/18 13:45: PT 12.3, INR 1.04 06/19/18 13:45: WBC 7.8, Hgb 15.9, Hct 46.9, Plt Count 118 L Assessment and Plan - Problems (Diagnosis) (1) Diabetic ulcer of toe Current Visit: No Status: Acute Plan: will admit to the floor. consult to Dr. Driver. Will start the patient on iv antibiotics. Blood cultures pending. Will considering imaging and vascularization. Qualifiers: Diabetes mellitus type: type 2 Laterality: right Non-pressure ulcer stage : limited to breakdown of skin Qualified Code(s): E11.621 - Type 2 diabetes mellitus with foot ulcer; L97.511 - Non-pressure chronic ulcer of other part of right foot limited to breakdown of skin (2) Peripheral vascular disease due to secondary diabetes Onset Date: 05/27/18 Current Visit: No Status: Acute Plan: He has not been a candidate in the past. Has had a work up with Dr. Yarbrough I believe we may consult him (3) End stage renal failure on dialysis Onset Date: 09/13/16 Current Visit: No Status: Chronic Plan: consult to Dr. Hawkins to continue dialysis (4) Hyperlipidemia Current Visit: No Status: Chronic Plan: stable on pravachol. Qualifiers: Hyperlipidemia type: pure hypercholesterolemia Qualified Code(s): E78.00 - Pure hypercholesterolemia, unspecified; E78.0 - Pure hypercholesterolemia (5) Hypertensive disorder, systemic arterial Current Visit: No Status: Chronic Plan: will restart home medications and adjust as necessary. Discharge Plan: Home Plan to discharge in: Greater than 2 days - Advance Directives Does patient have a Living Will: No Does patient have a Durable POA for Healthcare: No - Code Status/Comfort Care Code Status Assessed: No Code Status: Full Code Physician Review: Patient Assessed, Agree with Above Assessment and Plan Critical Care: No Time Spent Managing Pts Care (In Minutes): 60
[2018-06-19] MEDS ORDERED: GLUCAGON 1 MG/VIAL IM PRN (20:07)
[2018-06-19] MEDS ORDERED: D50W 25 GM/50 ML SYRINGE IV PRN (20:07)
--- NOTE | 2018-06-19 20:07 | RAD REPORT ---
EXAM DESCRIPTION: RAD - Foot Right 3 View - 06/19/2018 7:46 pm CLINICAL HISTORY: Osteomyelitis COMPARISON: Foot Right 3 View dated 05/29/2018; Chest Single View dated 05/25/2018 FINDINGS: Soft tissue swelling is seen along the great toe. No underlying evidence of osteomyelitis seen. Vascular calcification is noted. Medial malleolar screws are present. If osteomyelitis remains a clinical concern, MR imaging would be suggested.
[2018-06-19] MEDS ORDERED: LEVODOPA PO SCH (21:00)
[2018-06-19] MEDS ORDERED: CARBIDOPA PO SCH (21:00)
[2018-06-19] MEDS ORDERED: CALCIUM CARBONATE CHEW 500MG TAB PO SCH (21:00)
[2018-06-19] MEDS: GABAPENTIN 100 MG CAP PO SCH (23:10)
[2018-06-19] MEDS: ATORVASTATIN 10 MG TAB PO SCH (23:10)
[2018-06-19] MEDS: CA ACETATE 667 MG CAP PO SCH (23:10)
[2018-06-19] MEDS: CARVEDILOL 25 MG TAB PO SCH (23:10)
[2018-06-19] MEDS: CALCIUM CARBONATE CHEW 500MG TAB PO SCH (23:10)
[2018-06-19] MEDS: INSULIN -REGULAR HUMAN 50 UNIT/0.5 ML ML SQ SCH (23:11)
--- NOTE | 2018-06-20 03:52 | CON ---
Date of Consultation: 06/19/2018 Additional Consulting Physician: Ganesh Bauman MD Reason For Consultation: Elevated BUN and creatinine, fluid management. History Of Present Illness: This is a 73-year-old gentleman with significant past medical historyof hypertension, hyperlipidemia, diabetes complicated with neuropathy and nephropathy, osteoarthritis, h ep C, end-stage renal disease on hemodialysis TTS. The patient went to the Wound Care for his toe in [facility], found to have gangrenous toe. For that reason, patient was admitted to the hospital. The p atient denied any nausea, any vomiting, any shortness of breath. The patient is scheduled for dialys is. Past Medical History: Include: 1.Hypertension. 2.Hyperlipidemia. 3.Diabetes. 4.Hep C. 5.End-stage renal disease. Past Surgical History: Include: 1.Lower extremity bypass. 2.PermCath. 3.AV fistula. Allergies: NO KNOWN DRUG ALLERGIES. Social History: Denies smoking, denies drinking, denies drugs abuse. Family History: Positive for diabetes and hypertension. Review of Systems: Head and Neck: No red eye. No ear pain. GI: No nausea, no vomiting. : No polyuria, no dysuria, no hematuria. STIFF STRAW HAT WASHER: Not applicable. RESPIRATORY: No shortness of breath. CARDIOVASCULAR: No chest pain. ENDOCRINE: No polydipsia. SKIN: No rash. NEURO: Has neuropathy. MUSCULOSKELETAL: Has toe pain. Medications: Home medications include: 1.Omeprazole. 2.Citalopram. 3.Plavix. 4.Lyrica. 5.PhosLo. 6.Aspirin. Current medications in the hospital include: 1.Aspirin. 2.Atorvastatin. 3.PhosLo. 4.Plavix. 5.Meropenem. 6.Vancomycin. 7.Lyrica. 8.Multivitamin. Physical Examination: Vital Signs: When I saw the patient, blood pressure of 149/65, pulse of 80. Chest: Clear to auscultation. Heart: S1, S2. Systolic murmur. Abdomen: Soft, nontender. Extremity: Plus edema. Gangrenous toe. Dressing on the right foot. Neurologic: Alert, no focal, has neuropathy. Laboratory Data: WBC 7.8, H and H 15.9/46.9, platelet 118. Sodium 133, potassium 4.2, bicarb 25, BU N 43, creatinine 6.8, calcium 8.9. Assessment And Plan: 1.End-stage renal disease. Normal volume. I am going to go ahead and arrange for dialysis tomorrow and we will follow up the patient. 2.Hypertension, controlled. We will utilize the blood pressure for more ultrafiltration. 3.Anemia of chronic kidney disease, the patient no need for BEAU. 4.Hypertension, controlled, optimal. Continue current medication. 5.Gangrenous toe. Continue current antibiotic. We will follow up with the primary. 6.Diabetes, as by primary. MEREDITH/ANDRE Voice ID: [id number] Report ID: [id number]
[2018-06-20 06:29] VITALS: BMI 27.6
[2018-06-20] MEDS: INSULIN -REGULAR HUMAN 50 UNIT/0.5 ML ML SQ SCH ×4 (07:30→21:00)
--- NOTE | 2018-06-20 07:53 | P.CNS ---
Date of Consult: 06/20/18 Reason for Consult: Right great to infection Primary Care Provider: Merna Chief Complaint: Diabetic foot ulcer Allergies No Known Drug Allergies Allergy (Verified 08/10/15 08:32) Unknown Home Medications: Clopidogrel Bisulfate [Plavix*] 75 mg PO DAILY 12/31/12 Gabapentin [Neurontin*] 100 mg PO TID 12/31/12 Pravastatin [Pravachol*] 40 mg PO DAILY 12/31/12 Citalopram [Celexa*] 10 mg PO DAILY 04/15/16 Carbidopa/Levodopa [Carbidopa-Levo 25-100 mg Odt] 1 tab PO BID 09/12/16 Ferrous Fumarate [Hemocyte] 1 tab PO DAILY 03/30/18 Iron/FA/Vit B-Com W/C [Hemocyte Plus*] 1 cap PO DAILY 03/30/18 Pregabalin [Lyrica] 75 mg PO DAILY 05/25/18 Ciprofloxacin HCl [Cipro 500 MG Tablet] 500 mg PO BID 7 Days #14 tab 05/27/18 Carvedilol [Coreg] 25 mg PO BID 06/19/18 Cilostazol 100 mg PO BID 06/19/18 Midodrine HCl [Proamatine] 5 mg PO PRN PRN 06/19/18 - Past Medical/Surgical History Diabetic: Yes -: Hypertension -: Neuropathy -: Hyperlipidemia -: ESRD -: DM -: DDD/DJD of the spine -: Anemia of chronic disease -: Hepatitis C -: History of pancreatitis -: Dialysis stent -: LLE Stent -: Right foot sx r/t fx -: vein procedure on r femoral Psychosocial/ Personal History: has recently. - Social History Smoking Status: Unknown if ever smoked Alcohol use: No CD- Drugs: No Caffeine use: Yes Place of Residence: Home Review of Systems 10-point ROS is otherwise unremarkable Physical Examination Temp Pulse Resp BP Pulse Ox 97.2 F 71 16 118/58 L 94 06/20/18 04:00 06/20/18 04:00 06/20/18 04:00 06/20/18 04:00 06/20/18 04:00 General: Alert, In no apparent distress, Oriented x3 Cardiovascular: No edema, Abnormal pulses (nonpalpable pedal pulses bilateral) Capillary refill: >2 Seconds Musculoskeletal: No clubbing, No swelling, No contractures, No erythema, No tenderness, No warmth Integumentary: Diabetic ulcer (ulceration to dorsum right hallux presents with dry gangrene/black eschar. No erythema, no edema, no purulence, no probing to bone) Neurological: Sensation intact Laboratory Data (last 24 hrs) 06/19/18 13:45: Sodium 133 L, Potassium 4.2, BUN 42 H, Creatinine 6.80 H*, Glucose 173 H 06/19/18 13:45: PT 12.3, INR 1.04 06/19/18 13:45: WBC 7.8, Hgb 15.9, Hct 46.9, Plt Count 118 L Imagings Data: xray right foot reveals no signs of osteomyelitis. Will order MRI to verify - Problems (1) Type 2 diabetes mellitus with diabetic peripheral angiopathy with gangrene Current Visit: Yes Status: Acute (2) Diabetic ulcer of toe Current Visit: No Status: Acute Qualifiers: Diabetes mellitus type: type 2 Laterality: right Non-pressure ulcer stage : limited to breakdown of skin Qualified Code(s): E11.621 - Type 2 diabetes mellitus with foot ulcer; L97.511 - Non-pressure chronic ulcer of other part of right foot limited to breakdown of skin Conclusions/Impression: Right hallux demonstrates signs of poor vascularity. Will order bilateral lower extremity arterial doppler to evaluate and mri to rule out osteomyelitis. Continue current iv antibiotics Physician Review: Patient Assessed, Agree with Above Assessment and Plan Time Spent Managing Pts care (In Minutes): 30
[2018-06-20] MEDS ORDERED: HOME MED 1 EA UNK (Pravastatin [Pravachol*] 40 MG) PO SCH (09:00)
[2018-06-20] MEDS ORDERED: FERROUS FUMARATE PO SCH (09:00)
[2018-06-20] MEDS: CA ACETATE 667 MG CAP PO SCH ×3 (10:50→22:27)
[2018-06-20] MEDS: PREGABALIN 75 MG CAP PO SCH (10:51)
[2018-06-20] MEDS: ASPIRIN EC 81 MG TAB PO SCH (10:51)
[2018-06-20] MEDS: FE SULF/FA/VIT B COMP & C TAB PO SCH (10:51)
[2018-06-20] MEDS: CALCIUM CARBONATE CHEW 500MG TAB PO SCH ×3 (10:52→22:28)
[2018-06-20] MEDS: CARVEDILOL 25 MG TAB PO SCH ×2 (10:52→22:28)
[2018-06-20] MEDS: CLOPIDOGREL 75 MG TABLET PO SCH (10:52)
[2018-06-20] MEDS: GABAPENTIN 100 MG CAP PO SCH ×3 (10:52→22:28)
[2018-06-20] MEDS: CITALOPRAM 10 MG TABLET PO SCH (10:53)
--- NOTE | 2018-06-20 11:48 | P.PN ---
Subjective Date of Service: 06/20/18 Primary Care Provider: Merna Chief Complaint: Diabetic foot ulcer Subjective: No new changes Review of Systems 10-point ROS is otherwise unremarkable Physical Examination - Vital Signs Temperature: 97.8 F Blood Pressure: 131/61 Pulse: 63 Respirations: 18 Pulse Ox (%): 95 - Physical Exam General: Alert, In no apparent distress HEENT: Atraumatic, PERRLA, EOMI Neck: Supple, JVD not distended Respiratory: Clear to auscultation bilaterally, Normal air movement Cardiovascular: Regular rate/rhythm, Normal S1 S2 Gastrointestinal: Normal bowel sounds, No tenderness Musculoskeletal: No tenderness Integumentary: No rashes Neurological: Normal speech, Normal tone, Normal affect Lymphatics: No axilla or inguinal lymphadenopathy - Studies Laboratory Data (last 24 hrs) 06/19/18 13:45: Sodium 133 L, Potassium 4.2, BUN 42 H, Creatinine 6.80 H*, Glucose 173 H 06/19/18 13:45: PT 12.3, INR 1.04 06/19/18 13:45: WBC 7.8, Hgb 15.9, Hct 46.9, Plt Count 118 L Assessment & Plan - Problems (Diagnosis) (1) Diabetic ulcer of toe Onset Date: 06/20/18 Current Visit: No Status: Acute Plan: Seen by Dr. Driver, plans to continue iv antibiotics and get an MRI Qualifiers: Diabetes mellitus type: type 2 Laterality: right Non-pressure ulcer stage : limited to breakdown of skin Qualified Code(s): E11.621 - Type 2 diabetes mellitus with foot ulcer; L97.511 - Non-pressure chronic ulcer of other part of right foot limited to breakdown of skin (2) Peripheral vascular disease due to secondary diabetes Onset Date: 05/27/18 Current Visit: No Status: Acute Plan: He has not been a candidate in the past. Has had a work up with Dr. Yarbrough I believe we may consult him (3) End stage renal failure on dialysis Onset Date: 09/13/16 Current Visit: No Status: Chronic Plan: consult to Dr. Hawkins to continue dialysis (4) Hyperlipidemia Onset Date: 06/20/18 Current Visit: No Status: Chronic Plan: stable on pravachol. Qualifiers: Hyperlipidemia type: pure hypercholesterolemia Qualified Code(s): E78.00 - Pure hypercholesterolemia, unspecified; E78.0 - Pure hypercholesterolemia (5) Hypertensive disorder, systemic arterial Onset Date: 06/20/18 Current Visit: No Status: Chronic Plan: will restart home medications and adjust as necessary. Discharge Plan: Home Plan to discharge in: Greater than 2 days - Code Status/Comfort Care Code Status Assessed: No Code Status: Full Code Physician Review: Patient Assessed, Agree with Above Assessment and Plan Critical Care: No Time Spent Managing Pts Care (In Minutes): 25
[2018-06-20] MEDS: Meropenem 500 MG in NA CHLORIDE 0.9% 100 ML IV SCH (12:43)
[2018-06-20] MEDS ORDERED: ALBUMIN HUMAN 25% 50 ML IV SCH (19:00)
[2018-06-20] MEDS ORDERED: CARVEDILOL 25 MG TAB PO SCH (21:00)
--- NOTE | 2018-06-20 21:32 | RAD REPORT ---
EXAM DESCRIPTION: MRI - Foot Right Wo Cont - 06/20/2018 9:22 pm CLINICAL HISTORY: Soft tissue wound first toe, suspected osteomyelitis COMPARISON: Right foot June 19 TECHNIQUE: Multiplanar imaging of the foot performed using T1 weighted, T2 fat saturation, T1 fat sa turation and T2 stir sequencing. FINDINGS: The exam suffers from significant motion degradation with multiple sequences repeated. Hyperintense T1 signal is present in the proximal and distal phalanges of the first toe. Similar hype rintense T1 signal present in the first metatarsal. First MTP joint degenerative changes are present. Minimal T2 signal abnormality is present in the distal aspect proximal first phalanx much of which i s motion artifact. No T2 signal abnormality in the distal phalanx or first metatarsal. No cortical di sruption seen. Currently there is no convincing evidence for osteomyelitis of the first toe or first metatarsal. The second- fifth toes and metatarsals without osteomyelitis or acute finding. No significant finding in the midfoot. Mild soft tissue edema changes are present. No abscess or drainable fluid collection identifiable. IMPRESSION: No osteomyelitis is confirmed at this time. No abscess or drainable fluid collection.
--- NOTE | 2018-06-20 21:54 | P.PN ---
Subjective Date of Service: 06/20/18 Primary Care Provider: Merna Chief Complaint: Diabetic foot ulcer Pt was admitted for Diabetic foot ulcer treatment No nausea, vomiting, diarrhea, constipation or chest pain Physical Examination - Vital Signs Temperature: 97.1 F Blood Pressure: 134/65 Pulse: 70 Respirations: 16 Pulse Ox (%): 96 - Physical Exam General: Oriented x3 Neck: JVD not distended Respiratory: Clear to auscultation bilaterally Gastrointestinal: Normal bowel sounds Musculoskeletal: Other (Rt 1st toe bandaged, 2nd lt toe ulcer ) - Studies Microbiology Data (last 24 hrs): 06/19/18 16:20 Other - Right Toe Gram Stain - Final Assessment And Plan - Current Problems (Diagnosis) (1) ESRD (end stage renal disease) Current Visit: Yes Status: Chronic (2) Diabetic ulcer of toe Onset Date: 06/20/18 Current Visit: No Status: Chronic Qualifiers: Diabetes mellitus type: type 2 Laterality: right Non-pressure ulcer stage : limited to breakdown of skin Qualified Code(s): E11.621 - Type 2 diabetes mellitus with foot ulcer; L97.511 - Non-pressure chronic ulcer of other part of right foot limited to breakdown of skin (3) Type 2 diabetes mellitus with diabetic peripheral angiopathy with gangrene Onset Date: 06/20/18 Current Visit: No Status: Chronic (4) Hypertensive disorder, systemic arterial Onset Date: 06/20/18 Current Visit: No Status: Chronic (5) Chronic anemia Current Visit: No Status: Chronic - Plan A 73-year-old gentleman with PMHx of hypertension, hyperlipidemia, diabetes complicated with neuropathy and nephropathy, osteoarthritis, hep C, end-stage renal disease on hemodialysis TTS. Pt was seeking wound care for toes ulceration, found to have gangernous changes and sent to ER no nausea, vomiting, diarrhea, constipation, cheat pain or palpitation Assessment And Plan: 1.End-stage renal disease. HD TTSat Renal Diet Monitor VANCO LEVEL Give Vanco on HD days only after HD 2.Hypertension, controlled. 3.Anemia of chronic kidney disease, the patient no need for BEAU. 4.Gangrenous toe. Continue current antibiotic. We will follow up with the primary. Monitor Vanco level 5.Diabetes, as by primary. MBD Start Phoslo with meals Physician Review: Patient Assessed, Agree with Above Assessment and Plan
[2018-06-20] MEDS: ATORVASTATIN 10 MG TAB PO SCH (22:27)
[2018-06-20] MEDS: CILOSTAZOL 100 MG TAB PO SCH (22:28)
[2018-06-21] MEDS ORDERED: VANCOMYCIN 500 MG/VIAL ONE (05:32)
[2018-06-21 06:09] LABS: Absolute Monocytes 0.6 K/uL (0.1-1.3); Absolute Neutrophil 2.7 K/uL (1.8-8.0); Basophils % 0.5 % (0-1.3); Eosinophils % 5.2 % (0-4.4); MCH 35.2 pg (27.0-35.0); MCV 102.8 fL (80-100); Monocytes % 13.6 % (3.3-12.3); RBC Red Blood Cell Count 3.98 M/uL (4.33-5.43)
[2018-06-21 06:31] LABS: Albumin 2.6 g/dL (3.4-5.0); Bilirubin Total 0.5 mg/dL (0.2-1.0); Potassium 3.7 mmol/L (3.5-5.1); Protein, Total 6.6 g/dL (6.4-8.2)
[2018-06-21] MEDS ORDERED: NA CHLORIDE 0.9% 100 ML ONE (06:42)
--- NOTE | 2018-06-21 07:11 | RAD REPORT ---
EXAM DESCRIPTION: US - Lower Extremity Arterial Bilat - 06/20/2018 9:50 pm CLINICAL HISTORY: Leg pain, peripheral vascular disease COMPARISON: None. TECHNIQUE: Waveforms were obtained along the length of each lower extremity. Grayscale and Doppler i nterrogation of the arterial tree performed. Visual inspection of the lower extremity arterial tree p erformed. FINDINGS: Significant calcified plaquing seen along the length of each lower extremity. No vessel oc clusion and no focal flow restricting lesion identifiable. A primarily biphasic waveform pattern seen in the right lower extremity. A minimally triphasic wavefo rm was seen in the right common femoral artery. Left leg shows a biphasic waveform pattern with monop hasic waveforms near the ankle. Common femoral artery velocity values were 105 cm/second on the right and 182 cm/second on the left. Right superficial femoral artery velocity values were 133-139 cm/second with the left measuring 55 cm /second. Popliteal artery velocity values were 96 cm/second on the right and 55 cm/second on the left . Dorsalis pedis velocities were 72 cm/second on the right and 59 cm/second on the left. Posterior ti bial velocity values could not be obtained for either leg. IMPRESSION: Significant bilateral, left greater than right significant lower extremity peripheral ar terial disease. Extensive calcified plaquing seen. Bilateral posterior tibial artery waveforms could not be obtained. No proximal arterial occlusion or focal flow restricting lesion identifiable.
[2018-06-21] MEDS: INSULIN -REGULAR HUMAN 50 UNIT/0.5 ML ML SQ SCH ×2 (07:30→11:30)
[2018-06-21] MEDS: CALCIUM CARBONATE CHEW 500MG TAB PO SCH ×2 (10:01→14:00)
[2018-06-21] MEDS: FE SULF/FA/VIT B COMP & C TAB PO SCH (10:01)
[2018-06-21] MEDS: CILOSTAZOL 100 MG TAB PO SCH (10:01)
[2018-06-21] MEDS: GABAPENTIN 100 MG CAP PO SCH (10:01)
[2018-06-21] MEDS: CA ACETATE 667 MG CAP PO SCH ×2 (10:01→14:00)
[2018-06-21] MEDS: CARVEDILOL 25 MG TAB PO SCH (10:02)
[2018-06-21] MEDS: PREGABALIN 75 MG CAP PO SCH (10:02)
[2018-06-21] MEDS: CITALOPRAM 10 MG TABLET PO SCH (10:02)
[2018-06-21] MEDS: CLOPIDOGREL 75 MG TABLET PO SCH (10:02)
[2018-06-21] MEDS: ASPIRIN EC 81 MG TAB PO SCH (10:02)
[2018-06-21 11:43] VITALS: O2SAT 98
--- NOTE | 2018-06-21 12:25 | P.PN ---
Subjective Date of Service: 06/21/18 Primary Care Provider: Merna Chief Complaint: Diabetic foot ulcer Pt was admitted for Diabetic foot ulcer treatment No nausea, vomiting, diarrhea, constipation or chest pain Physical Examination - Vital Signs Temperature: 97.0 F Blood Pressure: 128/65 Pulse: 68 Respirations: 16 Pulse Ox (%): 98 - Physical Exam General: Alert HEENT: Atraumatic Neck: Supple Cardiovascular: No edema, Regular rate/rhythm, Normal S1 S2 Gastrointestinal: Normal bowel sounds - Studies Laboratory Data (last 24 hrs) 06/21/18 05:37: Sodium 135 L, Potassium 3.7, BUN 33 H, Creatinine 5.90 H*, Glucose 190 H, Total Bilirubin 0.5, AST 30, ALT 20, Alkaline Phosphatase 94 06/21/18 05:37: WBC 4.6 D, Hgb 14.0, Hct 41.0, Plt Count 119 L Microbiology Data (last 24 hrs): 06/19/18 16:20 Other - Right Toe Gram Stain - Final Assessment And Plan - Current Problems (Diagnosis) (1) ESRD (end stage renal disease) Current Visit: Yes Status: Chronic (2) Diabetic ulcer of toe Onset Date: 06/20/18 Current Visit: No Status: Chronic Qualifiers: Diabetes mellitus type: type 2 Laterality: right Non-pressure ulcer stage : limited to breakdown of skin Qualified Code(s): E11.621 - Type 2 diabetes mellitus with foot ulcer; L97.511 - Non-pressure chronic ulcer of other part of right foot limited to breakdown of skin (3) Type 2 diabetes mellitus with diabetic peripheral angiopathy with gangrene Onset Date: 06/20/18 Current Visit: No Status: Chronic (4) Hypertensive disorder, systemic arterial Onset Date: 06/20/18 Current Visit: No Status: Chronic (5) Chronic anemia Current Visit: No Status: Chronic - Plan A 73-year-old gentleman with PMHx of hypertension, hyperlipidemia, diabetes complicated with neuropathy and nephropathy, osteoarthritis, hep C, end-stage renal disease on hemodialysis TTS. Pt was seeking wound care for toes ulceration, found to have gangernous changes and sent to ER no nausea, vomiting, diarrhea, constipation, cheat pain or palpitation Today No new complaints electrolytes ok HD as per schedule Assessment And Plan: 1.End-stage renal disease. HD TTSat Renal Diet Monitor VANCO LEVEL Give Vanco on HD days only after HD 2.Hypertension, controlled. 3.Anemia of chronic kidney disease, the patient no need for BEAU. 4.Gangrenous toe. Continue current antibiotic. We will follow up with the primary. Monitor Vanco level 5.Diabetes, as by primary. MBD on Phoslo with meals Physician Review: Patient Assessed, Agree with Above Assessment and Plan
--- NOTE | 2018-06-21 12:55 | P.DS ---
Admission Date: 06/19/18 Discharge Date: 06/21/18 Primary Care Provider: Merna Disposition: ROUTINE DISCHARGE Discharge Condition: GOOD Reason for Admission: Diabetic foot ulcer - Problems (1) Diabetic ulcer of toe Onset Date: 06/20/18 Current Visit: No Status: Chronic Qualifiers: Diabetes mellitus type: type 2 Laterality: right Non-pressure ulcer stage : limited to breakdown of skin Qualified Code(s): E11.621 - Type 2 diabetes mellitus with foot ulcer; L97.511 - Non-pressure chronic ulcer of other part of right foot limited to breakdown of skin (2) Peripheral vascular disease due to secondary diabetes Onset Date: 05/27/18 Current Visit: No Status: Acute (3) End stage renal failure on dialysis Onset Date: 09/13/16 Current Visit: No Status: Chronic (4) Hyperlipidemia Onset Date: 06/20/18 Current Visit: No Status: Chronic Qualifiers: Hyperlipidemia type: pure hypercholesterolemia Qualified Code(s): E78.00 - Pure hypercholesterolemia, unspecified; E78.0 - Pure hypercholesterolemia (5) Hypertensive disorder, systemic arterial Onset Date: 06/20/18 Current Visit: No Status: Chronic Brief History of Present Illness: Patient came to the wound care clinic today for diabetic ulcers on both feet. His right greater toe wound has worsened with increased sluffing of the skin and increased darkening. He states that this is painful. Considering he was doing this despite outpatient treatment decided to admit for iv antibiotics and podiatry consult. He has no complaints of fevers or chills at this time. Hospital Course: Patient was admitted. Seen by Dr. Driver. He had a negative MRI and ultrasound showed extensive arterial disease. Will discharge him home. Arrange for a referal to a vascular surgeon on follow up in the wound care center. Vital Signs/Physical Exam: Temp Pulse Resp BP Pulse Ox 97.0 F 68 16 128/65 98 06/21/18 12:25 06/21/18 12:25 06/21/18 12:25 06/21/18 12:25 06/21/18 12:25 General: Alert, In no apparent distress HEENT: Atraumatic, PERRLA, EOMI Neck: Supple, JVD not distended Respiratory: Clear to auscultation bilaterally, Normal air movement Cardiovascular: Regular rate/rhythm, Normal S1 S2 Gastrointestinal: Normal bowel sounds, No tenderness Musculoskeletal: No tenderness Integumentary: No rashes Neurological: Normal speech, Normal tone, Normal affect Lymphatics: No axilla or inguinal lymphadenopathy Laboratory Data at Discharge: WBC 4.6 K/uL (4.3-10.9) D 06/21/18 05:37 Hgb 14.0 g/dL (13.6-17.9) 06/21/18 05:37 Hct 41.0 % (39.6-49.0) 06/21/18 05:37 Plt Count 119 K/uL (152-406) L 06/21/18 05:37 PT 12.3 SECONDS (9.5-12.5) 06/19/18 13:45 INR 1.04 06/19/18 13:45 Sodium 135 mmol/L (136-145) L 06/21/18 05:37 Potassium 3.7 mmol/L (3.5-5.1) 06/21/18 05:37 BUN 33 mg/dL (7-18) H 06/21/18 05:37 Creatinine 5.90 mg/dL (0.55-1.3) H* 06/21/18 05:37 Glucose 190 mg/dL (74-106) H 06/21/18 05:37 Total Bilirubin 0.5 mg/dL (0.2-1.0) 06/21/18 05:37 AST 30 U/L (15-37) 06/21/18 05:37 ALT 20 U/L (12-78) 06/21/18 05:37 Alkaline Phosphatase 94 U/L (45-117) 06/21/18 05:37 Home Medications: Clopidogrel Bisulfate [Plavix*] 75 mg PO DAILY 12/31/12 Gabapentin [Neurontin*] 100 mg PO TID 12/31/12 Pravastatin [Pravachol*] 40 mg PO DAILY 12/31/12 Citalopram [Celexa*] 10 mg PO DAILY 04/15/16 Carbidopa/Levodopa [Carbidopa-Levo 25-100 mg Odt] 1 tab PO BID 09/12/16 Ferrous Fumarate [Hemocyte] 1 tab PO DAILY 03/30/18 Iron/FA/Vit B-Com W/C [Hemocyte Plus*] 1 cap PO DAILY 03/30/18 Pregabalin [Lyrica] 75 mg PO DAILY 05/25/18 Ciprofloxacin HCl [Cipro 500 MG Tablet] 500 mg PO BID 7 Days #14 tab 05/27/18 Carvedilol [Coreg] 25 mg PO BID 06/19/18 Cilostazol 100 mg PO BID 06/19/18 Midodrine HCl [Proamatine] 5 mg PO PRN PRN 06/19/18 Diet: ADA Activity: Ad reji Followup: Ganesh Bauman MD [ACTIVE - CAN ADMIT] - Time spent managing pt's care (in minutes): 30
[2018-06-21] MEDS: Meropenem 500 MG in NA CHLORIDE 0.9% 100 ML IV SCH (14:00)
[2018-06-21 16:51] VITALS: BP 127/59; TEMP 97.5
== END 2018-06-21 16:27 | disposition home or self-care (01) | DRG 638 ==
LOC: 2ND 11:51
PROVIDERS: ADMIT Internal Medicine; ATTEND Internal Medicine
PROC: 5A1D70Z Performance of Urinary Filtration, Intermittent, Less than 6 Hours Per Day (ICD-10-PCS; principal; 2018-06-20)
DX: E11.621 Type 2 diabetes mellitus with foot ulcer (principal); I12.0 Hypertensive chronic kidney disease with stage 5 chronic kidney disease or end stage renal disease; L97.518 Non-pressure chronic ulcer of other part of right foot with other specified severity; E11.52 Type 2 diabetes mellitus with diabetic peripheral angiopathy with gangrene; I96 Gangrene, not elsewhere classified; L97.511 Non-pressure chronic ulcer of other part of right foot limited to breakdown of skin; E11.22 Type 2 diabetes mellitus with diabetic chronic kidney disease; N18.6 End stage renal disease; E78.00 Pure hypercholesterolemia, unspecified; E11.42 Type 2 diabetes mellitus with diabetic polyneuropathy; D63.1 Anemia in chronic kidney disease; B19.20 Unspecified viral hepatitis C without hepatic coma; Z99.2 Dependence on renal dialysis
CPT/HCPCS: 11042; 36415; 80048; 80053; 80202; 82962; 85025; 85610; 87040; 87070; 87075; 87077; 87186; 87205; 90935; 93925; 99213; J3370; P9047

== ENCOUNTER 2018-07-26 06:14 | Day surgery (SDC) | payer OTHER, SELFPAY ==
--- NOTE | 2018-07-24 11:36 | RAD REPORT ---
EXAM DESCRIPTION: RAD - Chest Pa And Lat (2 Views) - 07/24/2018 11:11 am CLINICAL HISTORY: preop Chest pain. COMPARISON: Chest Single View dated 05/25/2018; Chest Single View dated 03/30/2018; Chest Single View dated 01/04/2018; Chest Single View dated 09/14/2017 FINDINGS: The lungs are clear. The heart is normal in size. No displaced fractures. Vascular stentin g is in place on the left. IMPRESSION: No acute process identified.
[2018-07-24 13:56] LABS: Absolute Lymphocytes (CBC) 1.4 K/uL (0.7-4.9); Absolute Monocytes 0.9 K/uL (0.1-1.3); Absolute Neutrophil 6.4 K/uL (1.8-8.0); Basophils % 0.4 % (0-1.3); Eosinophils % 3.6 % (0-4.4); Hematocrit 41.5 % (39.6-49.0); Lymphocytes % 15.4 % (15.3-44.8); MCH 35.1 pg (27.0-35.0); MCV 102.5 fL (80-100); MPV 9.6 fL (7.6-11.3); Monocytes % 9.5 % (3.3-12.3); RBC Red Blood Cell Count 4.05 M/uL (4.33-5.43)
[2018-07-24 14:07] LABS: Potassium 3.5 mmol/L (3.5-5.1)
--- OUTSIDE RECORDS SUMMARY | 2018-07-26 06:17 | XMS REPORT ---
:1945 Author Organization [facility] Address [address] [place] [address] Dr. Aviles [address] [place] [id number] Care Team Providers Name Role Phone ANN [...] PATIENT A-V GRAFT 14:11:00 tunneled dialysis ID: [id number] catheterReason for History: End-stage exam:->Clotted fistula renal [...] catheter for an Amplatz wire. A 7 Iranian sheath was placed at the access site. [...] MDReport Verified Date/Time: 09/18/2017 14:11:58 Reading Location: [place] [address] Angio Body Reading Room -GLUCOSE METER 2017-09-17 13:43:00 Test Item Value Reference Range Comments POC-GLUCOSE METER (BEAKER) (test 76 mg/dL 70-[address] [facility] [address] [facility] kape=[id number]) [facility] [address] HEMOGLOBIN [id number] 08:02:00 Test Item Value Reference Range Comments HEMOGLOBIN A1C (BEAKER) (test ursi=679) 7.0 % 4.3-6.1 BASIC METABOLIC [id number] 07:34:00 Test Item Value Reference Range Comments SODIUM (BEAKER) (test 140 meq/L 136-145 zydm=385) POTASSIUM (BEAKER) (test 5.0 meq/L 3.5-5.1 ymmx=035) CHLORIDE (BEAKER) (test 101 meq/L 98-107 wmuf=730) CO2 (BEAKER) (test 22 meq/L 22-29 xnmd=169) BLOOD UREA NITROGEN 87 mg/dL 7-21 (BEAKER) (test juux=281) CREATININE (BEAKER) (test 10.99 mg/dL 0.57-1.25 gtdk=295) GLUCOSE RANDOM (BEAKER) 87 mg/dL 70-105 (test orvh=687) CALCIUM (BEAKER) (test 7.8 mg/dL 8.4-10.2 ldew=964) EGFR (BEAKER) (test 5 mL/min/1.73 sq m ESTIMATED GFR IS NOT ylat=6554) ACCURATE CREATININE CLEARANCE IN PREDICTING GLOMERULAR FILTRATION RATE. ESTIMATED GFR IS NOT APPLICABLE FOR DIALYSIS PATIENTS. [id number] 07:28:00 Test Item Value Reference Range Comments PHOSPHORUS (BEAKER) (test rdia=932) 6.0 mg/dL 2.3-4.7 [id number] 07:28:00 Test Item Value Reference Range Comments MAGNESIUM (BEAKER) (test nakj=446) 2.3 mg/dL 1.6-2.6 CALCIUM, [id number] 07:18:00 Test Item Value Reference Range Comments CALCIUM IONIZED (BEAKER) (test yvqt=373) 1.00 mmol/L 1.12-1.27 PH, BLOOD (BEAKER) (test pkxr=9930) 7.27 HEPATITIS B SURFACE [id number] 07:11:00 Test Item Value Reference Range Comments HEPATITIS B SURFACE ANTIGEN (2) (BEAKER) (test Nonreactive Nonreactive iqcn=2059) Pls add to specimen drawn earlier.POCT-GLUCOSE [id number] 07:06:00 Test Item Value Reference Range Comments POC-GLUCOSE METER (BEAKER) 118 mg/dL 70-[address] [facility] [address] [facility] (test qedr=1463) [facility] [address] PROTHROMBIN [id number] 06:14:00 Test Item Value Reference Range Comments PROTIME (BEAKER) (test fygc=095) 14.2 seconds 11.7-14.7 INR (BEAKER) (test cusa=180) 1.1 <=5.9 RECOMMENDED COUMADIN/WARFARIN INR THERAPY RANGESSTANDARD DOSE: 2.0 - 3.0 Includes: PROPHYLAXIS forvenous thrombosis, systemic embolization; TREATMENT for venous thrombosis and/or pulmonary embolus.HIGH RISK: Target INR is 2.5-3.5 for patients with mechanical heart valves.CBC W/PLT COUNT & AUTO [id number] 06:04:00 Test Item Value Reference Range Comments WHITE BLOOD CELL COUNT (BEAKER) (test mbee=613) 5.7 K/ L 3.5-10.5 RED BLOOD CELL COUNT (BEAKER) (test thuq=431) 3.78 M/ L 4.63-6.08 HEMOGLOBIN (BEAKER) (test bqyn=247) 13.0 GM/DL 13.7-17.5 HEMATOCRIT (BEAKER) (test tfub=323) 39.4 % 40.1-51.0 MEAN CORPUSCULAR VOLUME (BEAKER) (test djbz=233) 104.2 fL 79.0-92.2 MEAN CORPUSCULAR HEMOGLOBIN (BEAKER) (test 34.4 pg 25.7-32.2 etyp=778) MEAN CORPUSCULAR HEMOGLOBIN CONC (BEAKER) (test 33.0 GM/DL 32.3-36.5 uhmy=468) RED CELL DISTRIBUTION WIDTH (BEAKER) (test 14.1 % 11.6-14.4 rdhd=480) PLATELET COUNT (BEAKER) (test ypvq=903) 82 K/CU MM 150-450 MEAN PLATELET VOLUME (BEAKER) (test ayib=939) 13.3 fL 9.4-12.4 NUCLEATED RED BLOOD CELLS (BEAKER) (test 0 /100 WBC 0-0 zcgr=120) NEUTROPHILS RELATIVE PERCENT (BEAKER) (test 62 % lxqs=795) LYMPHOCYTES RELATIVE PERCENT (BEAKER) (test 23 % kkwb=698) MONOCYTES RELATIVE PERCENT (BEAKER) (test 11 % ohpo=090) EOSINOPHILS RELATIVE PERCENT (BEAKER) (test 4 % odus=501) BASOPHILS RELATIVE PERCENT (BEAKER) (test 1 % sjuu=671) NEUTROPHILS ABSOLUTE COUNT (BEAKER) (test 3.53 K/ L 1.78-5.38 sjln=699) LYMPHOCYTES ABSOLUTE COUNT (BEAKER) (test 1.30 K/ L 1.32-3.57 nqoq=907) MONOCYTES ABSOLUTE COUNT (BEAKER) (test pxft=713) 0.62 K/ L 0.30-0.82 EOSINOPHILS ABSOLUTE COUNT (BEAKER) (test 0.22 K/ L 0.04-0.54 iujm=247) BASOPHILS ABSOLUTE COUNT (BEAKER) (test qofx=264) 0.03 K/ L 0.01-0.08 IMMATURE GRANULOCYTES-RELATIVE PERCENT (BEAKER) 1 % 0-1 (test pkvn=1237) POCT-GLUCOSE [id number] 22:23:00 Test Item Value Reference Range Comments POC-GLUCOSE METER (BEAKER) 185 mg/dL 70-[address] [facility] [address] [facility] (test ljce=5620) [place] [id number] POCT-GLUCOSE [id number] 21:27:00 Test Item Value Reference Range Comments POC-GLUCOSE METER (BEAKER) 198 mg/dL 70-110 TESTED AT [address] (test xilx=3559) [place] [id number] POCT-GLUCOSE [id number] 17:43:00 Test Item Value Reference Range Comments POC-GLUCOSE METER (BEAKER) 164 mg/dL 70-110 TESTED AT [address] (test ozif=1613) [place] [address] HEPATITIS B SURFACE [id number] 15:14:00 Test Item Value Reference Range Comments HEPATITIS B SURFACE ANTIGEN (2) (BEAKER) (test Nonreactive Nonreactive vsdc=1742) Pls add to specimen drawn earlier.BASIC METABOLIC [id number] 13:34:00 Test Item Value Reference Range Comments SODIUM (BEAKER) (test 140 meq/L 136-145 tkcg=454) POTASSIUM (BEAKER) (test 5.4 meq/L 3.5-5.1 cpko=971) CHLORIDE (BEAKER) (test 101 meq/L 98-107 vttv=755) CO2 (BEAKER) (test 19 meq/L 22-29 arka=384) BLOOD UREA NITROGEN 123 mg/dL 7-21 (BEAKER) (test hygc=966) CREATININE (BEAKER) (test 12.96 mg/dL 0.57-1.25 ufna=437) GLUCOSE RANDOM (BEAKER) 79 mg/dL 70-105 (test vrrt=735) CALCIUM (BEAKER) (test 7.9 mg/dL 8.4-10.2 ugix=233) EGFR (BEAKER) (test 4 mL/min/1.73 sq m ESTIMATED GFR IS NOT gawv=4760) ACCURATE CREATININE CLEARANCE IN PREDICTING GLOMERULAR FILTRATION RATE. ESTIMATED GFR IS NOT APPLICABLE FOR DIALYSIS PATIENTS. [id number] 13:24:00 Test Item Value Reference Range Comments MAGNESIUM (BEAKER) (test nnhc=512) 2.3 mg/dL 1.6-2.6 [id number] 13:24:00 Test Item Value Reference Range Comments PHOSPHORUS (BEAKER) (test qast=574) 6.2 mg/dL 2.3-4.7 POCT-GLUCOSE [id number] 12:20:00 Test Item Value Reference Range Comments POC-GLUCOSE METER (BEAKER) 84 mg/dL 70-[address] [facility] [address] [facility] (test doyi=4954) [facility] [address] ANG, NON-TUNNELED CATH >5 Y.O. [id number] 11:23:00Reason for exam:-> please declot the AV fistula, if unable to do that he needs catheter exchangeFINAL REPORT Nontunneled dialysis catheter insertion, 09/16/2017. History: Left upper extremity AV fistula thrombosed. Modality: Fluoroscopy and sonography. Sedation: None. Air Moving Technician: Edgar Chandler MD. Drapery Rod Assembler: None. Approach: Right internal jugular vein Estimated [...] Chandlereport Verified Date/Time: 2017 11:23:57 Reading Location: [place] [id number] AngioBody Reading Room POCT- GLUCOSE [id number] 07:38:00 Test Item Value Reference Range Comments POC-GLUCOSE METER (BEAKER) 89 mg/dL 70-110 TESTED AT [address] (test qcwx=2664) [place] [address] PROTHROMBIN [id number] 05:19:00 Test Item Value Reference Range Comments PROTIME (BEAKER) (test njmh=485) 14.8 seconds 11.7-14.7 INR (BEAKER) (test ycbi=456) 1.2 <=5.9 RECOMMENDED COUMADIN/WARFARIN INR THERAPY RANGESSTANDARD DOSE: 2.0 - 3.0 Includes: PROPHYLAXIS forvenous thrombosis, systemic embolization; TREATMENT for venous thrombosis and/or pulmonary embolus.HIGH RISK: Target INR is 2.5-3.5 for patients with mechanical heart valves.POCT-GLUCOSE [id number] 23:26:00 Test Item Value Reference Range Comments POC-GLUCOSE METER (BEAKER) 261 mg/dL 70-110 TESTED AT [address] (test qarp=6423) [place] [id number]
--- OUTSIDE RECORDS SUMMARY | 2018-07-26 06:17 | XMS REPORT | Clinical Summary ---
:1945 Author Organization [facility] Address [address] [place] [address] Care Team Providers Name Role Phone Sharpisamar Primary Care Provider Allergies No Known Allergies Medications Medication Sig Dispensed Refills Start Date End Date Status carbidopa-levodopa Take 1 tablet by 0 Active (SINEMET) 25-100 mg per mouth 2 (two) tabletIndications: times daily. Parkinsonism clopidogrel (PLAVIX) 75 Take 75 mg by 0 Active mg tablet mouth daily. aspirin 81 MG EC tablet Take 81 mg by 0 Active mouth daily. citalopram (CELEXA) 10 Take 10 mg by 0 Active MG tablet mouth daily. esomeprazole (NEXIUM) Take 40 mg by 0 Active 40 mg packet mouth every morning before breakfast. gabapentin (NEURONTIN) Take 100 mg by 0 Active 100 MG capsule mouth 2 (two) times daily. pravastatin (PRAVACHOL) Take 40 mg by 0 Active 40 MG tablet mouth daily. pregabalin (LYRICA) 50 Take 50 mg by 0 Active MG capsule mouth daily. calcium acetate Take 667 mg by 0 Active (PHOSLO) 667 mg capsule mouth daily. Active Problems Problem Noted Date Dialysis AV fistula malfunction 09/15/2017 ESRD (end stage renal disease) Encounters Date Type Specialty Care Team Description 09/15/2017 - Hospital Encounter General Internal Bakari, Malfunction of arteriovenous dialysis fistula, initial encounter ([facility]); 09/17/2017 Medicine Euloigo Harris, Essential hypertension; ESRD (end stage renal disease) on dialysis ([facility]); Gurmeet, [id number] diabetes mellitus with neurological complications ([facility]); Kimberly Samuel, Other hyperlipidemia; Parkinson's disease ([facility]) Iliana Cowart MD after 07/25/2017 Family History Medical History Relation Name Comments [...] Assigned at Date Recorded Not on file Job Start Date Occupation Industry Not on file Not on file Not on file Travel History Travel Start Travel End No recent travel history available. Last Filed Vital Signs Vital Sign Reading Time Taken Blood Pressure 120/64 09/17/2017 8:39 PM [employer]NET SALESP[employer] Pulse 92 09/17/2017 8:39 PM [employer] SAL[employer] Temperature 36.6 C (97.8 F) 09/17/2017 8:39 PM [employer] SAL[employer]ERSON Respiratory Rate 19 09/17/2017 8:39 PM [employer]NET SALESPERSON Oxygen Saturation 94% 09/17/2017 8:39 PM INTERNET SALESPERSON Inhaled Oxygen Concentration - - Weight 80.9 kg (178 lb 4 oz) 09/17/2017 6:00 AM INTERNET SALESPERSON Height 170.2 cm (5' 7") 09/17/2017 6:00 AM INTERNET SALESPERSON Body Mass Index 27.92 09/17/2017 6:00 AM INTERNET SALESPERSON Plan of Treatment Not on file Procedures Procedure Name Priority Date/Time Associated Comments Diagnosis REPORT OF PROCEDURE - 09/19/2017 9:40 ENDOSCOPY SCAN AM INTERNET SALESPERSON RHYTHM STRIP - SCAN 09/19/2017 9:40 AM INTERNET SALESPERSON HEMODIALYSIS Routine 09/17/2017 7:54 Results for this INPATIENT PM [employer] SAL[employer]ERSON procedure are in the results section. POCT-GLUCOSE METER Routine 09/17/2017 1:41 Results for this PM [employer] SALESPERSON procedure are in the results section. IR Routine 09/17/2017 12:07 Results for this THROMOBOLYSIS/DECLOT PM [employer] SALESPERSON procedure are in AV FISTULA/GRAFT the results section. POCT-GLUCOSE METER Routine 09/17/2017 6:46 Results for this AM [employer] SALESPERSON procedure are in the results section. CBC W/PLT COUNT & Routine 09/17/2017 5:40 Results for this AUTO DIFFERENTIAL AM [employer] SALESPERSON procedure are in the results section. HEMOGLOBIN A1C Routine 09/17/2017 5:40 Results for this AM [employer]NET SALESPERSON procedure are in the results section. CBC W/PLT COUNT & Routine 09/17/2017 5:40 Results for this AUTO DIFFERENTIAL AM [employer] SALESPERSON procedure are in the results section. CALCIUM, IONIZED Routine 09/17/2017 5:40 Results for this AM INTERNET SALESPERSON procedure are in the results section. MAGNESIUM Routine 09/17/2017 5:40 Results for this AM INTERNET SALESPERSON procedure are in the results section. PHOSPHORUS Routine 09/17/2017 5:40 Results for this AM INTERNET SALESPERSON procedure are in the results section. BASIC METABOLIC PANEL Routine 09/17/2017 5:40 Results for this (7) AM [employer]NET SALESPERSON procedure are in the results section. PROTHROMBIN TIME/INR Routine 09/17/2017 5:40 Results for this AM INTERNET SALESPERSON procedure are in the results section. HEPATITIS B SURFACE Routine 09/17/2017 5:40 Results for this ANTIGEN AM INTERNET SALESPERSON procedure are in the results section. POCT-GLUCOSE METER Routine 09/16/2017 10:15 Results for this PM [employer]NET SALESPERSON procedure are in the results section. POCT-GLUCOSE METER Routine 09/16/2017 9:13 Results for this PM INTERNET SALESPERSON procedure are in the results section. POCT-GLUCOSE METER Routine 09/16/2017 5:26 Results for this PM INTERNET SALESPERSON procedure are in the results section. HEPATITIS B SURFACE Routine 09/16/2017 2:27 Results for this ANTIGEN PM INTERNET SALESPERSON procedure are in the results section. POCT-GLUCOSE METER Routine 09/16/2017 12:13 Results for this PM INTERNET SALESPERSON procedure are in the results section. IR NON-TUNNELED Routine 09/16/2017 11:19 Results for this DIALYSIS CATHETER AM INTERNET SALESPERSON procedure are in (CENTRAL the results LINE/VI) section. MAGNESIUM Routine 09/16/2017 8:26 Results for this AM INTERNET SALESPERSON procedure are in the results section. PHOSPHORUS Routine 09/16/2017 8:26 Results for this AM INTERNET SALESPERSON procedure are in the results section. BASIC METABOLIC PANEL Routine 09/16/2017 8:26 Results for this (7) AM INTERNET SALESPERSON procedure are in the results section. POCT-GLUCOSE METER Routine 09/16/2017 7:06 Results for this AM INTERNET SALESPERSON procedure are in the results section. PROTHROMBIN TIME/INR Routine 09/16/2017 4:51 Results for this AM INTERNET SALESPERSON procedure are in the results section. POCT-GLUCOSE METER Routine 09/15/2017 10:26 Results for this PM [employer]NET SALESPERSON procedure are in the results section. after 07/25/2017 Results EKG-SCANNED (09/19/2017 9:40 AM INTERNET SALESPERSON) Narrative Performed At RHYTHM STRIP - SCAN (09/19/2017 9:40 AM INTERNET SALESPERSON) Narrative Performed At HEMODIALYSIS INPATIENT (09/17/2017 7:54 PM INTERNET SALESPERSON) Narrative Performed At Elan Valdez RN 09/17/20177:54 PM Lab Results [...] given Charles Franco POC-Glucose meter (09/17/2017 1:41 PM INTERNET SALESPERSON)Only the most recent of8 resultswithin the time period is included. POC-Glucose Meter 76Comment: TESTED AT 70 - 110 mg/dL [place] [id number] [facility] [id number] Specimen Blood Performing Organization Address City/State/Zipcode Phone Number [address] [address] CENTER IR Thromobolysis/Declot AV Fistula/Graft (09/17/2017 12:07 PM INTERNET SALESPERSON) Narrative Performed At FINAL REPORT [facility] History: End-stage renal disease, thrombosed left approximately [...] catheter for an Amplatz wire. A 7 Nepali sheath was placed at the access site. [...] MD Report Verified Date/Time:09/18/2017 14:11:58 Reading Location: [place] [address] Angio Body Reading Room Procedure Note Interface, External Ris In - 09/18/2017 2:14 PM INTERNET SALESPERSON FINAL REPORT History: End-stage renal disease, thrombosed [...] catheter for an Amplatz wire. A 7 Nepali sheath was placed at the access site. [...] Report Verified Date/Time: 09/18/2017 14:11:58 Reading Location: [place] [address] Angio Body Reading Room Performing Organization Address City/[facility] Phone Number GE RIS Calcium, Ionized (09/17/2017 5:40 AM INTERNET SALESPERSON) Calcium, Ion 1.00 (L) 1.12 - 1.27 mmol/L [facility] pH, Blood 7.27 [facility] Specimen Blood - Arm, Right Performing Organization Address [place]/[facility]/Zipcode Phone Number [address] [address] CENTER CBC with platelet count + automated diff (09/17/2017 5:40 AM INTERNET SALESPERSON) WBC 5.7 3.5 - 10.5 K/L [facility] RBC 3.78 (L) 4.63 - 6.08 M/L [facility] Hemoglobin 13.0 (L) 13.7 - 17.5 GM/DL [facility] Hematocrit 39.4 (L) 40.1 - 51.0 % [facility] MCV 104.2 (H) 79.0 - 92.2 fL [facility] MCH 34.4 (H) 25.7 - 32.2 pg [facility] MCHC 33.0 32.3 - 36.5 GM/DL [facility] RDW 14.1 11.6 - 14.4 % [facility] Platelets 82 (L) 150 - 450 K/CU MM [facility] MPV 13.3 (H) 9.4 - 12.4 fL [facility] nRBC 0 0 - 0 /100 WBC [facility] % Neutros 62 % [facility] % Lymphs 23 % [facility] % Monos 11 % [facility] % Eos 4 % [facility] % Baso 1 % [facility] # Neutros 3.53 1.78 - 5.38 K/L [facility] # Lymphs 1.30 (L) 1.32 - 3.57 K/L [facility] # Monos 0.62 0.30 - 0.82 K/L [facility] # Eos 0.22 0.04 - 0.54 K/L [facility] # Baso 0.03 0.01 - 0.08 K/L [facility] Immature 1 0 - 1 % [facility] Specimen Blood - Arm, Right Performing Organization Address City/[facility]/Zipcode Phone Number [address] [address] CENTER Hepatitis B surface antigen (09/17/2017 5:40 AM INTERNET SALESPERSON)Only the most recent of2 resultswithin the time period is included. hepatitis B Surface Ag NON-REACTIVE Nonreactive [facility] Specimen Blood - Arm, Right Narrative Performed At [facility] add to specimen drawn earlier. [facility] Performing Organization Address City/State/Zipcode Phone Number [address] [address] [place] Prothrombin time/INR (09/17/2017 5:40 AM INTERNET SALESPERSON)Only the most recent of2 resultswithin the time period is included. Protime 14.2 11.7 - 14.7 seconds [facility] INR 1.1 <=5.9 [facility] Specimen Blood - Arm, Right Narrative Performed At [facility] RECOMMENDED COUMADIN/WARFARIN INR THERAPY RANGES STANDARD DOSE: 2.0 - 3.0 Includes: PROPHYLAXIS for venous thrombosis, systemic embolization; TREATMENT for venous thrombosis and/or pulmonary embolus. HIGH RISK: Target INR is 2.5-3.5 for patients with mechanical heart valves. Performing Organization Address City/[facility] Cent[facility]ode Phone Number [address] [address] CENTER Phosphorus (09/17/2017 5:40 AM INTERNET SALESPERSON)Only the most recent of2 resultswithin the time period is included. Phosphorus 6.0 (H) 2.3 - 4.7 mg/dL [facility] Specimen Blood - Arm, Right Performing Organization Address [place]/[facility] Phone Number [address] [address] [phone] CENTER Magnesium (09/17/2017 5:40 AM INTERNET SALESPERSON)Only the most recent of2 resultswithin the time period is included. Magnesium 2.3 1.6 - 2.6 mg/dL [facility] Specimen Blood - Arm, Right Performing Organization Address [place]/[facility] Phone Number [address] [address] CENTER Hemoglobin A1c (09/17/2017 5:40 AM INTERNET SALESPERSON) Hemoglobin A1C 7.0 (H) 4.3 - 6.1 % [facility] Specimen Blood - Arm, Right Performing Organization Address [place]/[facility] Cent[facility] Phone Number [address] [address] CENTER Basic metabolic panel (09/17/2017 5:40 AM INTERNET SALESPERSON)Only the most recent of2 resultswithin the time period is included. Sodium 140 136 - 145 meq/L [facility] Potassium 5.0 3.5 - 5.1 meq/L [facility] Chloride 101 98 - 107 meq/L [facility] CO2 22 22 - 29 meq/L [facility] BUN 87 (H) 7 - 21 mg/dL [facility] Creatinine 10.99 (H) 0.57 - 1.25 mg/dL [facility] Glucose 87 70 - 105 mg/dL [facility] Calcium 7.8 (L) 8.4 - 10.2 mg/dL [facility] EGFR 5Comment: ESTIMATED GFR IS mL/min/1.73 sq m [facility] NOT ACCURATE CREATININE [facility] CENTER CLEARANCE IN PREDICTING GLOMERULAR FILTRATION RATE. ESTIMATED GFR IS NOT APPLICABLE FOR DIALYSIS PATIENTS. Specimen Blood - Arm, Right Performing Organization Address City/State/Zipcode Phone Number [facility] [address] [place] [address] CENTER IR Non-tunneled Catheter - Central Line/Vi Temporary (09/16/2017 11:19 AM INTERNET SALESPERSON) Narrative Performed At FINAL REPORT [facility] Nontunneled dialysis catheter insertion, 09/16/2017. History: Left upper extremity AV fistula thrombosed. Modality: Fluoroscopy and sonography. Sedation: None. Cheese Pancake Roller:Edgar Chandler MD. Wildlife Ecologist:None. Approach: Right internal jugular vein Estimated blood [...] MD Report Verified Date/Time:09/16/2017 11:23:57 Reading Location: [place] [address] Angio Body Reading Room Procedure Note Interface, External Ris In - 09/16/2017 11:26 AM INTERNET SALESPERSON FINAL REPORT Nontunneled dialysis catheter insertion, 09/16/2017. History: Left upper extremity AV fistula thrombosed. Modality: Fluoroscopy and sonography. Sedation: None. Cheese Pancake Roller: Edgar Chandler MD. Wildlife Ecologist: None. Approach: Right internal jugular vein Estimated [...] using sonographic and fluoroscopic guidance. Signed: Edgar Chadnler MD Report Verified Date/Time: 09/16/2017 11:23:57 Reading Location: [place] [address] Angio Body Reading Room Performing Organization Address City/State/Zipconj Phone Number GE RIS after 07/25/2017 Insurance Payer Benefit Plan / Group Subscriber ID Type Phone Address CARE IMPROVEMENT MEDICARE CARE IMPROVEMENT PLUS xxxxxxxxx [facility] CARE MEDICAID [place]ICA[place] xxxxxxxxx Medicaid ([place]) [place] [address] Advance Directives For more information, please contact:[address] [phone] Code Status Date Activated Date Inactivated Comments Full Code 09/15/2017 11:54 PM 09/18/2017 7:40 AM This code status was determined by: Patient
[2018-07-26] MEDS ORDERED: CEFAZOLIN/SWI 1gm 1 GM/10 ML SYR ONE (06:26)
[2018-07-26] MEDS ORDERED: NA CHLORIDE 0.9% 500 ML ONE (06:26)
[2018-07-26] MEDS ORDERED: LIDOCAINE 1% MPF 5 ML VIAL ONE (06:47)
[2018-07-26] MEDS ORDERED: MIDAZOLAM HCL 2 MG/2 ML INJ ONE (07:27)
[2018-07-26] MEDS ORDERED: PROPOFOL 200 MG/20 ML VIAL IV ONE (07:27)
[2018-07-26] MEDS ORDERED: FENTANYL CITR 100 MCG/2 ML ONE (07:27)
[2018-07-26] MEDS ORDERED: LIDOCAINE 2% MPF 5 ML VIAL ONE (07:28)
[2018-07-26] MEDS ORDERED: ONDANSETRON 4 MG/2 ML VIAL ONE (07:28)
[2018-07-26] MEDS ORDERED: Ringers Lactate 1,000 ML IV ONE (07:46)
[2018-07-26] MEDS ORDERED: EPHEDRINE SULF 50 MG/10 ML SYR ONE (08:01)
[2018-07-26 15:23] VITALS: O2SAT 97
[2018-07-26 15:25] VITALS: BP 138/74; TEMP 97.2
--- NOTE | 2018-07-26 20:20 | OP ---
Date of Procedure: 07/26/2018 Surgeon: Ricci Katz MD Preoperative Diagnoses: Gangrene, peripheral vascular disease, right lower extremity, first toe. Postoperative Diagnoses: Gangrene, peripheral vascular disease, right lower extremity, first toe. Procedure: Right first toe transmetatarsal amputation. Estimated Blood Loss: Minimal. Specimen: Right first toe. Findings: As above. Anesthesia: General. Complications: None. Disposition: The patient tolerated the procedure in stable condition and taken to Recovery in good g eneral condition. Procedure In Detail: The patient was brought to the OR and placed in the supine position. General a nesthesia was begun. The patient was prepped and draped in the usual sterile fashion. Marcaine 0.5% was infiltrated locally. Then, sharp dissection proceeded in a wedge from all the way down to the m id metatarsal bone on the first toe and in between the first and second web space and then subcutaneo us tissue divided. All ligaments were then divided about jail down the metatarsal bone. The bone was divided and the entire toe was removed and sent to Pathology. Wound irrigated. Bleeding contro lled with cautery. The rough edges were smoothed with rongeurs and rasps and then a [place] drain 0. 25 inch was placed, secured with 3-0 nylon and 2-0 chromic was used to close the wound in the subcuta neous space and 2-0 chromic was used to do that and 2-0 nylon was used to close the skin. Sterile dr essing applied. The patient awakened and taken to Recovery in good general condition. Discharge Note: The patient will go to day surgery and home when stable. Disposition: Home. Condition: Stable. Discharge Instructions: Resume home medications and diet. Activity as tolerated. No heavy lifting. Remove outer dressing in 2 days. Shower. Keep wound clean and dry. Follow up Wound Healing Zandra larkin and my clinic in 2 weeks. Tylenol No. 3 one tablet p.o. q.4 p.r.n. pain, Keflex 500 mg p.o. q.12. /MODL Voice ID: [id number] Report ID: [id number]
== END 2018-07-26 12:10 | disposition home or self-care (01) ==
LOC: OR 06:14
PROVIDERS: ATTEND Surgery
PROC: 0Y6M0Z9 Detachment at Right Foot, Partial 1st Ray, Open Approach (ICD-10-PCS; principal; 2018-07-26 07:30)
DX: I96 Gangrene, not elsewhere classified (principal); E11.621 Type 2 diabetes mellitus with foot ulcer; L97.519 Non-pressure chronic ulcer of other part of right foot with unspecified severity; I10 Essential (primary) hypertension; I25.10 Atherosclerotic heart disease of native coronary artery without angina pectoris; E78.5 Hyperlipidemia, unspecified; K21.9 Gastro-esophageal reflux disease without esophagitis; D64.9 Anemia, unspecified; B18.2 Chronic viral hepatitis C; Z99.2 Dependence on renal dialysis
CPT/HCPCS: 28805; 36415; 71046; 80048; 82962 ×2; 85025; 88305; 97163; J0690; J2405; J2704; J3010; 88304; J2250

== ENCOUNTER 2018-08-03 07:05 | Observation (INO) | payer OTHER, SELFPAY ==
--- OUTSIDE RECORDS SUMMARY | 2018-08-03 07:07 | XMS REPORT ---
:1945 [facility] Address [address] [place] [address] Care Team Providers Name Role Phone ANN [...] PATIENT A-V GRAFT 14:11:00 tunneled dialysis ID: [id number] catheterReason for History: End-stage exam:->Clotted fistula renal [...] catheter for an Amplatz wire. A 7 Trinidadian sheath was placed at the access site. [...] Choi Verified Date/Time: 09/18/2017 14:11:58 Reading Location: [place] [address] Angio Body Reading Room -GLUCOSE METER 2017-09-17 13:43:00 Test Item Value Reference Range Comments POC-GLUCOSE METER (BEAKER) (test 76 mg/dL 70-110 TESTED AT [facility] [address] [facility] [address] bsdw=5674) [facility] [address] HEMOGLOBIN [id number] 08:02:00 Test Item Value Reference Range Comments HEMOGLOBIN A1C (BEAKER) (test jnlf=531) 7.0 % 4.3-6.1 BASIC METABOLIC [id number] 07:34:00 Test Item Value Reference Range Comments SODIUM (BEAKER) (test 140 meq/L 136-145 iynn=670) POTASSIUM (BEAKER) (test 5.0 meq/L 3.5-5.1 qgit=671) CHLORIDE (BEAKER) (test 101 meq/L 98-107 quot=154) CO2 (BEAKER) (test 22 meq/L 22-29 rdpc=607) BLOOD UREA NITROGEN 87 mg/dL 7-21 (BEAKER) (test pyij=313) CREATININE (BEAKER) (test 10.99 mg/dL 0.57-1.25 ocoq=876) GLUCOSE RANDOM (BEAKER) 87 mg/dL 70-105 (test fvxx=719) CALCIUM (BEAKER) (test 7.8 mg/dL 8.4-10.2 dcxc=503) EGFR (BEAKER) (test 5 mL/min/1.73 sq m ESTIMATED GFR IS NOT fghq=1910) ACCURATE CREATININE CLEARANCE IN PREDICTING GLOMERULAR FILTRATION RATE. ESTIMATED GFR IS NOT APPLICABLE FOR DIALYSIS PATIENTS. [id number] 07:28:00 Test Item Value Reference Range Comments PHOSPHORUS (BEAKER) (test xovc=999) 6.0 mg/dL 2.3-4.7 [id number] 07:28:00 Test Item Value Reference Range Comments MAGNESIUM (BEAKER) (test ohwc=375) 2.3 mg/dL 1.6-2.6 CALCIUM, [id number] 07:18:00 Test Item Value Reference Range Comments CALCIUM IONIZED (BEAKER) (test trty=145) 1.00 mmol/L 1.12-1.27 PH, BLOOD (BEAKER) (test gjxs=7448) 7.27 HEPATITIS B SURFACE [id number] 07:11:00 Test Item Value Reference Range Comments HEPATITIS B SURFACE ANTIGEN (2) (BEAKER) (test Nonreactive Nonreactive syak=7515) Pls add to specimen drawn earlier.POCT-GLUCOSE [id number] 07:06:00 Test Item Value Reference Range Comments POC-GLUCOSE METER (BEAKER) 118 mg/dL 70-110 TESTED AT [facility] [address] [facility] (test rgkx=3503) [facility] [address] PROTHROMBIN [id number] 06:14:00 Test Item Value Reference Range Comments PROTIME (BEAKER) (test rztx=309) 14.2 seconds 11.7-14.7 INR (BEAKER) (test pvmb=520) 1.1 <=5.9 RECOMMENDED COUMADIN/WARFARIN INR THERAPY RANGESSTANDARD DOSE: 2.0 - 3.0 Includes: PROPHYLAXIS forvenous thrombosis, systemic embolization; TREATMENT for venous thrombosis and/or pulmonary embolus.HIGH RISK: Target INR is 2.5-3.5 for patients with mechanical heart valves.CBC W/PLT COUNT & AUTO [id number] 06:04:00 Test Item Value Reference Range Comments WHITE BLOOD CELL COUNT (BEAKER) (test towq=199) 5.7 K/ L 3.5-10.5 RED BLOOD CELL COUNT (BEAKER) (test pfmk=735) 3.78 M/ L 4.63-6.08 HEMOGLOBIN (BEAKER) (test ydjf=037) 13.0 GM/DL 13.7-17.5 HEMATOCRIT (BEAKER) (test gfen=542) 39.4 % 40.1-51.0 MEAN CORPUSCULAR VOLUME (BEAKER) (test mccz=538) 104.2 fL 79.0-92.2 MEAN CORPUSCULAR HEMOGLOBIN (BEAKER) (test 34.4 pg 25.7-32.2 ycch=493) MEAN CORPUSCULAR HEMOGLOBIN CONC (BEAKER) (test 33.0 GM/DL 32.3-36.5 jiad=479) RED CELL DISTRIBUTION WIDTH (BEAKER) (test 14.1 % 11.6-14.4 hbfg=088) PLATELET COUNT (BEAKER) (test uewf=841) 82 K/CU MM 150-450 MEAN PLATELET VOLUME (BEAKER) (test jatg=900) 13.3 fL 9.4-12.4 NUCLEATED RED BLOOD CELLS (BEAKER) (test 0 /100 WBC 0-0 tduq=891) NEUTROPHILS RELATIVE PERCENT (BEAKER) (test 62 % pxev=524) LYMPHOCYTES RELATIVE PERCENT (BEAKER) (test 23 % ganx=080) MONOCYTES RELATIVE PERCENT (BEAKER) (test 11 % puzx=230) EOSINOPHILS RELATIVE PERCENT (BEAKER) (test 4 % uuyk=009) BASOPHILS RELATIVE PERCENT (BEAKER) (test 1 % lgbk=819) NEUTROPHILS ABSOLUTE COUNT (BEAKER) (test 3.53 K/ L 1.78-5.38 cnan=242) LYMPHOCYTES ABSOLUTE COUNT (BEAKER) (test 1.30 K/ L 1.32-3.57 tuil=647) MONOCYTES ABSOLUTE COUNT (BEAKER) (test uuqg=680) 0.62 K/ L 0.30-0.82 EOSINOPHILS ABSOLUTE COUNT (BEAKER) (test 0.22 K/ L 0.04-0.54 wkry=867) BASOPHILS ABSOLUTE COUNT (BEAKER) (test goxg=705) 0.03 K/ L 0.01-0.08 IMMATURE GRANULOCYTES-RELATIVE PERCENT (BEAKER) 1 % 0-1 (test wknc=7575) POCT-GLUCOSE [id number] 22:23:00 Test Item Value Reference Range Comments POC-GLUCOSE METER (BEAKER) 185 mg/dL 70-110 TESTED AT [place] [id number] [facility] (test roik=4519) [place] [id number] POCT-GLUCOSE [id number] 21:27:00 Test Item Value Reference Range Comments POC-GLUCOSE METER (BEAKER) 198 mg/dL 70-110 TESTED AT [address] (test qnhs=0814) [place] [id number] POCT-GLUCOSE [id number] 17:43:00 Test Item Value Reference Range Comments POC-GLUCOSE METER (BEAKER) 164 mg/dL 70-110 TESTED AT [address] (test axbh=9084) [place] [id number] HEPATITIS B SURFACE [id number] 15:14:00 Test Item Value Reference Range Comments HEPATITIS B SURFACE ANTIGEN (2) (BEAKER) (test Nonreactive Nonreactive pfhg=6405) Pls add to specimen drawn earlier.BASIC METABOLIC [id number] 13:34:00 Test Item Value Reference Range Comments SODIUM (BEAKER) (test 140 meq/L 136-145 fdrn=750) POTASSIUM (BEAKER) (test 5.4 meq/L 3.5-5.1 blab=803) CHLORIDE (BEAKER) (test 101 meq/L 98-107 isnb=248) CO2 (BEAKER) (test 19 meq/L 22-29 zjls=483) BLOOD UREA NITROGEN 123 mg/dL 7-21 (BEAKER) (test tkbg=273) CREATININE (BEAKER) (test 12.96 mg/dL 0.57-1.25 wefi=889) GLUCOSE RANDOM (BEAKER) 79 mg/dL 70-105 (test ouit=809) CALCIUM (BEAKER) (test 7.9 mg/dL 8.4-10.2 fjxx=402) EGFR (BEAKER) (test 4 mL/min/1.73 sq m ESTIMATED GFR IS NOT svku=7569) ACCURATE CREATININE CLEARANCE IN PREDICTING GLOMERULAR FILTRATION RATE. ESTIMATED GFR IS NOT APPLICABLE FOR DIALYSIS PATIENTS. [id number] 13:24:00 Test Item Value Reference Range Comments MAGNESIUM (BEAKER) (test altd=696) 2.3 mg/dL 1.6-2.6 [id number] 13:24:00 Test Item Value Reference Range Comments PHOSPHORUS (BEAKER) (test upml=148) 6.2 mg/dL 2.3-4.7 POCT-GLUCOSE [id number] 12:20:00 Test Item Value Reference Range Comments POC-GLUCOSE METER (BEAKER) 84 mg/dL 70-110 TESTED AT [facility] [address] (test egdd=2389) [facility] [address] ANG, NON-TUNNELED CATH >5 Y.O. [id number] 11:23:00Reason for exam:-> please declot the AV fistula, if unable to do that he needs catheter exchangeFINAL REPORT Nontunneled dialysis catheter insertion, 09/16/2017. History: Left upper extremity AV fistula thrombosed. Modality: Fluoroscopy and sonography. Sedation: None. Pipeline Construction Inspector: Edgar Chandler MD. Crawler Tractor Operator: None. Approach: Right internal jugular vein Estimated [...] MDReport Verified Date/Time: 2017 11:23:57 Reading Location: [place] [address] AngioBody Reading Room POCT- GLUCOSE [id number] 07:38:00 Test Item Value Reference Range Comments POC-GLUCOSE METER (BEAKER) 89 mg/dL 70-110 TESTED AT [address] (test lzxc=4294) [place] [id number] PROTHROMBIN [id number] 05:19:00 Test Item Value Reference Range Comments PROTIME (BEAKER) (test txot=329) 14.8 seconds 11.7-14.7 INR (BEAKER) (test gvxk=973) 1.2 <=5.9 RECOMMENDED COUMADIN/WARFARIN INR THERAPY RANGESSTANDARD DOSE: 2.0 - 3.0 Includes: PROPHYLAXIS forvenous thrombosis, systemic embolization; TREATMENT for venous thrombosis and/or pulmonary embolus.HIGH RISK: Target INR is 2.5-3.5 for patients with mechanical heart valves.POCT-GLUCOSE [id number] 23:26:00 Test Item Value Reference Range Comments POC-GLUCOSE METER (BEAKER) 261 mg/dL 70-110 TESTED AT [facility] [address] [facility] (test jdrw=4354) [place] [id number]
--- OUTSIDE RECORDS SUMMARY | 2018-08-03 07:07 | XMS REPORT | Clinical Summary ---
:1945 Author Organization [facility] Address [address] [place] [address] Care Team Providers Name Role Phone Sharpisamar [...] Malfunction of arteriovenous dialysis fistula, initial encounter ([facility]); 09/17/2017 Medicine Eulogio Harris, Essential hypertension; ESRD (end stage renal disease) on dialysis ([facility]); Gurmeet, Ckw-pvwkfua-mxtaotfvo diabetes mellitus with neurological complications ([facility]); Kimberly Samuel, Other hyperlipidemia; Parkinson's disease ([facility]) Iliana Cowart MD after 08/02/2017 Family History Medical History Relation Name Comments [...] Taken Blood Pressure 120/64 09/17/2017 8:39 PM SMOKEHOUSE OPERATOR Pulse 92 09/17/2017 8:39 PM SMOKEHOUSE OPERATOR Temperature 36.6 C (97.8 F) 09/17/2017 8:39 PM SMOKEHOUSE OPERATOR Respiratory Rate 19 09/17/2017 8:39 PM SMOKEHOUSE OPERATOR Oxygen Saturation 94% 09/17/2017 8:39 PM SMOKEHOUSE OPERATOR Inhaled Oxygen Concentration - - Weight 80.9 kg (178 lb 4 oz) 09/17/2017 6:00 AM SMOKEHOUSE OPERATOR Height 170.2 cm (5' 7") 09/17/2017 6:00 AM SMOKEHOUSE OPERATOR Body Mass Index 27.92 09/17/2017 6:00 AM SMOKEHOUSE OPERATOR Plan of Treatment Not on file Procedures Procedure Name Priority Date/Time Associated Comments Diagnosis REPORT OF PROCEDURE - 09/19/2017 9:40 ENDOSCOPY SCAN AM SMOKEHOUSE OPERATOR RHYTHM STRIP - SCAN 09/19/2017 9:40 AM SMOKEHOUSE OPERATOR HEMODIALYSIS Routine 09/17/2017 7:54 Results for this INPATIENT PM SMOKEHOUSE OPERATOR procedure are in the results section. POCT-GLUCOSE METER Routine 09/17/2017 1:41 Results for this PM SMOKEHOUSE OPERATOR procedure are in the results section. IR Routine 09/17/2017 12:07 Results for this THROMOBOLYSIS/DECLOT PM SMOKEHOUSE OPERATOR procedure are in AV FISTULA/GRAFT the results section. POCT-GLUCOSE METER Routine 09/17/2017 6:46 Results for this AM SMOKEHOUSE OPERATOR procedure are in the results section. CBC W/PLT COUNT & Routine 09/17/2017 5:40 Results for this AUTO DIFFERENTIAL AM SMOKEHOUSE OPERATOR procedure are in the results section. HEMOGLOBIN A1C Routine 09/17/2017 5:40 Results for this AM SMOKEHOUSE OPERATOR procedure are in the results section. CBC W/PLT COUNT & Routine 09/17/2017 5:40 Results for this AUTO DIFFERENTIAL AM SMOKEHOUSE OPERATOR procedure are in the results section. CALCIUM, IONIZED Routine 09/17/2017 5:40 Results for this AM SMOKEHOUSE OPERATOR procedure are in the results section. MAGNESIUM Routine 09/17/2017 5:40 Results for this AM SMOKEHOUSE OPERATOR procedure are in the results section. PHOSPHORUS Routine 09/17/2017 5:40 Results for this AM SMOKEHOUSE OPERATOR procedure are in the results section. BASIC METABOLIC PANEL Routine 09/17/2017 5:40 Results for this (7) AM SMOKEHOUSE OPERATOR procedure are in the results section. PROTHROMBIN TIME/INR Routine 09/17/2017 5:40 Results for this AM SMOKEHOUSE OPERATOR procedure are in the results section. HEPATITIS B SURFACE Routine 09/17/2017 5:40 Results for this ANTIGEN AM SMOKEHOUSE OPERATOR procedure are in the results section. POCT-GLUCOSE METER Routine 09/16/2017 10:15 Results for this PM SMOKEHOUSE OPERATOR procedure are in the results section. POCT-GLUCOSE METER Routine 09/16/2017 9:13 Results for this PM SMOKEHOUSE OPERATOR procedure are in the results section. POCT-GLUCOSE METER Routine 09/16/2017 5:26 Results for this PM SMOKEHOUSE OPERATOR procedure are in the results section. HEPATITIS B SURFACE Routine 09/16/2017 2:27 Results for this ANTIGEN PM SMOKEHOUSE OPERATOR procedure are in the results section. POCT-GLUCOSE METER Routine 09/16/2017 12:13 Results for this PM SMOKEHOUSE OPERATOR procedure are in the results section. IR NON-TUNNELED Routine 09/16/2017 11:19 Results for this DIALYSIS CATHETER AM SMOKEHOUSE OPERATOR procedure are in (CENTRAL the results LINE/VI) section. MAGNESIUM Routine 09/16/2017 8:26 Results for this AM SMOKEHOUSE OPERATOR procedure are in the results section. PHOSPHORUS Routine 09/16/2017 8:26 Results for this AM SMOKEHOUSE OPERATOR procedure are in the results section. BASIC METABOLIC PANEL Routine 09/16/2017 8:26 Results for this (7) AM SMOKEHOUSE OPERATOR procedure are in the results section. POCT-GLUCOSE METER Routine 09/16/2017 7:06 Results for this AM SMOKEHOUSE OPERATOR procedure are in the results section. PROTHROMBIN TIME/INR Routine 09/16/2017 4:51 Results for this AM SMOKEHOUSE OPERATOR procedure are in the results section. POCT-GLUCOSE METER Routine 09/15/2017 10:26 Results for this PM SMOKEHOUSE OPERATOR procedure are in the results section. after 08/02/2017 Results EKG-SCANNED (09/19/2017 9:40 AM SMOKEHOUSE OPERATOR) Narrative Performed At RHYTHM STRIP - SCAN (09/19/2017 9:40 AM SMOKEHOUSE OPERATOR) Narrative Performed At HEMODIALYSIS INPATIENT (09/17/2017 7:54 PM SMOKEHOUSE OPERATOR) Narrative Performed At Elan Valdez RN 09/17/20177:54 [...] Charles Franco POC-Glucose meter (09/17/2017 1:41 PM SMOKEHOUSE OPERATOR)Only the most recent of8 resultswithin the time period is included. POC-Glucose Meter 76Comment: TESTED AT 70 - 110 mg/dL [place] [id number] [facility] [id number] Specimen Blood Performing Organization Address City/State/Zipcode Phone Number [address] [address] CENTER IR Thromobolysis/Declot AV Fistula/Graft (09/17/2017 12:07 PM SMOKEHOUSE OPERATOR) Narrative Performed At FINAL REPORT [facility] History: End-stage renal disease, thrombosed left approximately [...] catheter for an Amplatz wire. A 7 Tajik sheath was placed at the access site. [...] MD Report Verified Date/Time:09/18/2017 14:11:58 Reading Location: [place] [address] Angio Body Reading Room Procedure Note Interface, External Ris In - 09/18/2017 2:14 PM SMOKEHOUSE OPERATOR FINAL REPORT History: End-stage renal disease, thrombosed [...] catheter for an Amplatz wire. A 7 Tajik sheath was placed at the access site. [...] Report Verified Date/Time: 09/18/2017 14:11:58 Reading Location: [place] [address] Angio Body Reading Room Performing Organization Address City/[facility] Phone Number GE RIS Calcium, Ionized (09/17/2017 5:40 AM SMOKEHOUSE OPERATOR) Calcium, Ion 1.00 (L) 1.12 - 1.27 mmol/L [facility] [place] pH, Blood 7.[address] [facility] [place] Specimen Blood - Arm, Right Performing Organization Address [facility]/Zipcode Phone Number [address] [address] CENTER CBC with platelet count + automated diff (09/17/2017 5:40 AM SMOKEHOUSE OPERATOR) WBC 5.7 3.5 - 10.5 K/L [facility] [place] RBC 3.78 (L) 4.63 - 6.08 M/L [facility] [place] Hemoglobin 13.0 (L) 13.7 - 17.5 GM/DL [facility] [place] Hematocrit 39.4 (L) 40.1 - 51.0 % [facility] [place] MCV 104.2 (H) 79.0 - 92.[address] [facility] [place] MCH 34.4 (H) 25.7 - 32.[address] [facility] [place] MCHC 33.0 32.3 - 36.5 GM/DL [facility] [place] RDW 14.1 11.6 - 14.4 % [facility] [place] Platelets 82 (L) 150 - 450 K/CU MM [facility] [place] MPV 13.3 (H) 9.4 - 12.[address] [facility] [place] nRBC 0 0 - 0 /[address] [facility] [place] % Neutros 62 % [facility] [place] % Lymphs 23 % [facility] [place] % Monos 11 % [facility] [place] % Eos 4 % [facility] [place] % Baso 1 % [facility] [place] # Neutros 3.53 1.78 - 5.38 K/L [facility] [place] # Lymphs 1.30 (L) 1.32 - 3.57 K/L [facility] [place] # Monos 0.62 0.30 - 0.82 K/L [facility] [place] # Eos 0.22 0.04 - 0.54 K/L [facility] [place] # Baso 0.03 0.01 - 0.08 K/L [facility] [place] Immature 1 0 - 1 % [facility] Specimen Blood - Arm, Right Performing Organization Address City/[facility]/Zipcode Phone Number [address] [address] CENTER Hepatitis B surface antigen (09/17/2017 5:40 AM SMOKEHOUSE OPERATOR)Only the most recent of2 resultswithin the time period is included. hepatitis B Surface Ag NON-REACTIVE Nonreactive [facility] [place] [place] Specimen Blood - Arm, Right Narrative Performed At [facility] add to specimen drawn earlier. [facility] [place] Performing Organization Address City/State/Zipcode Phone Number [address] [address] [place] Prothrombin time/INR (09/17/2017 5:40 AM SMOKEHOUSE OPERATOR)Only the most recent of2 resultswithin the time period is included. Protime 14.2 11.7 - 14.[address] [facility] [place] INR 1.1 <=5.[address] [facility] Specimen Blood - Arm, Right Narrative Performed At [facility] [place] RECOMMENDED COUMADIN/WARFARIN INR THERAPY RANGES STANDARD DOSE: 2.0 - 3.0 Includes: PROPHYLAXIS for venous thrombosis, systemic embolization; TREATMENT for venous thrombosis and/or pulmonary embolus. HIGH RISK: Target INR is 2.5-3.5 for patients with mechanical heart valves. Performing Organization Address City/[facility] Centercode Phone Number [address] [address] [phone] CENTER Phosphorus (09/17/2017 5:40 AM SMOKEHOUSE OPERATOR)Only the most recent of2 resultswithin the time period is included. Phosphorus 6.0 (H) 2.3 - 4.7 mg/dL [facility] [place] [place] Specimen Blood - Arm, Right Performing Organization Address [facility] Phone Number [address] [address] [phone] CENTER Magnesium (09/17/2017 5:40 AM SMOKEHOUSE OPERATOR)Only the most recent of2 resultswithin the time period is included. Magnesium 2.3 1.6 - 2.6 mg/dL [facility] [place] [place] Specimen Blood - Arm, Right Performing Organization Address [facility] Phone Number [address] [address] [phone] CENTER Hemoglobin A1c (09/17/2017 5:40 AM SMOKEHOUSE OPERATOR) Hemoglobin A1C 7.0 (H) 4.3 - 6.1 % [facility] [place] [place] Specimen Blood - Arm, Right Performing Organization Address [facility] Centercode Phone Number [address] [address] CENTER Basic metabolic panel (09/17/2017 5:40 AM SMOKEHOUSE OPERATOR)Only the most recent of2 resultswithin the time period is included. Sodium 140 136 - 145 meq/L [facility] [place] [place] Potassium 5.0 3.5 - 5.1 meq/L [facility] [place] [place] Chloride 101 98 - 107 meq/L [facility] [place] [place] CO2 22 22 - 29 meq/L [facility] [place] [place] BUN 87 (H) 7 - 21 mg/dL [facility] [place] Creatinine 10.99 (H) 0.57 - 1.25 mg/dL [facility] [place] Glucose 87 70 - 105 mg/dL [facility] [place] [place] Calcium 7.8 (L) 8.4 - 10.2 mg/dL [facility] [place] [place] EGFR 5Comment: ESTIMATED GFR IS mL/min/1.73 sq m [facility] NOT ACCURATE CREATININE [facility] C[facility] CLEARANCE IN PREDICTING GLOMERULAR FILTRATION RATE. ESTIMATED GFR IS NOT APPLICABLE FOR DIALYSIS PATIENTS. Specimen Blood - Arm, Right Performing Organization Address City/State/Zipcode Phone Number [facility] [address] [place] [address] [phone] CENTER IR Non-tunneled Catheter - Central Line/Vi Temporary (09/16/2017 11:19 AM SMOKEHOUSE OPERATOR) Narrative Performed At FINAL REPORT [employer] Nontunneled dialysis catheter insertion, 09/16/2017. History: Left upper extremity AV fistula thrombosed. Modality: Fluoroscopy and sonography. Sedation: None. Interface Designer:Edgar Chandler MD. Fitness Assistant:None. Approach: Right internal jugular vein Estimated blood [...] MD Report Verified Date/Time:09/16/2017 11:23:57 Reading Location: [place] [address] Angio Body Reading Room Procedure Note Interface, External Ris In - 09/16/2017 11:26 AM SMOKEHOUSE OPERATOR FINAL REPORT Nontunneled dialysis catheter insertion, 09/16/2017. History: Left upper extremity AV fistula thrombosed. Modality: Fluoroscopy and sonography. Sedation: None. Interface Designer: Edgar Chandler MD. Fitness Assistant: None. Approach: Right internal jugular vein Estimated [...] Report Verified Date/Time: 09/16/2017 11:23:57 Reading Location: [place] [address] Angio Body Reading Room Performing Organization Address City/State/[place] Phone Number GE RIS after 08/02/2017 Insurance Payer Benefit Plan / Group Subscriber ID Type Phone Address CARE IMPROVEMENT MEDICARE CARE IMPROVEMENT PLUS xxxxxxxxx [facility] CARE MEDICAID [place]ICA[place] xxxxxxxxx Medicaid ([place]) [place] [address] Advance Directives For more information, please contact:[address] [phone] Code Status Date Activated Date Inactivated Comments Full Code 09/15/2017 11:54 PM 09/18/2017 7:40 AM This code status was determined by: Patient
[2018-08-03 08:01] LABS: Absolute Lymphocytes (CBC) 1.2 K/uL (0.7-4.9); Absolute Monocytes 1.1 K/uL (0.1-1.3); Absolute Neutrophil 8.4 K/uL (1.8-8.0); Basophils % 0.3 % (0-1.3); Hematocrit 36.6 % (39.6-49.0); Lymphocytes % 10.7 % (15.3-44.8); MCH 33.9 pg (27.0-35.0); MCV 99.9 fL (80-100); MPV 8.7 fL (7.6-11.3); Monocytes % 10.1 % (3.3-12.3); RBC Red Blood Cell Count 3.66 M/uL (4.33-5.43)
[2018-08-03 08:14] LABS: Protime INR 1.24
[2018-08-03 08:51] LABS: Albumin 2.4 g/dL (3.4-5.0); Bilirubin Direct 0.4 mg/dL (0-0.2); Bilirubin Total 0.8 mg/dL (0.2-1.0); Magnesium 2.5 mg/dL (1.8-2.4); Potassium 3.6 mmol/L (3.5-5.1); Protein, Total 7.6 g/dL (6.4-8.2); Troponin (Emerg Dept Use Only) 0.1 ng/mL (0.0-0.045)
--- NOTE | 2018-08-03 08:54 | RAD REPORT ---
EXAM DESCRIPTION: RAD - Chest Single View - 08/03/2018 8:10 am CLINICAL HISTORY: Weakness, shortness of breath COMPARISON: June 23 TECHNIQUE: AP portable chest image was obtained 0754 hours . FINDINGS: Lung volumes are low which accentuates lung markings. A minimal interstitial edema or infi ltrate could be masked. Vasculature is mildly prominent. Heart size is normal and stable. No measurab le pleural effusion and no pneumothorax. No acute bony abnormality seen. No acute aortic findings gloria pected. IMPRESSION: Mild interstitial prominence and mild vascular engorgement without cardiomegaly. Minimal failure or volume overload suspected. No focal lung parenchymal process.
--- NOTE | 2018-08-03 08:57 | RAD REPORT ---
EXAM DESCRIPTION: RAD - Foot Right 3 View - 08/03/2018 8:10 am CLINICAL HISTORY: Recent amputation, weakness, pain COMPARISON: Pre-surgical July 03 imaging FINDINGS: The patient's right first toe has been resected and there is resection of the first metata rsal to the proximal shaft. At the resection site there is no unexpected bone resorption or bone dest ruction. Dense arterial tree calcifications are present. Drain is in place. No abnormal air collectio n in the soft tissues. The second- fifth toes and metatarsals show no suspicious findings. Soft tissues are edematous, not u nexpected given the recent surgery. IMPRESSION: Soft tissue swelling is present not outside of normal range. No air or suspicious soft t issue finding. Resection of the first toe and distal first metatarsal without suspicious bone finding at the resecti on site.
--- NOTE | 2018-08-03 10:32 | ER ---
Nurse's Notes [facility] Name: Nadir Mendez Age: 73 yrs Sex: Male : 1945 Arrival Date: 08/03/2018 Time: 07:08 Bed 5 Private MD: Diagnosis: Weakness;Congestive heart failure. S/p right great toe amputation, HTN, ESRD, DM Presentation: 08/03 07:13 Presenting complaint: Child states: He had his right great toe amputated 2 weeks ago la1 and since then he has just been very weak and tired. Pt/family denies fevers. States "he is just going downhill". Transition of care: patient was not received from another setting of care. Onset of symptoms was August 03, 2018. Risk Assessment: Do you want to hurt yourself or someone else? Patient reports no desire to harm self or others. Initial Sepsis Screen: Does the patient meet any 2 criteria? No. Patient's initial sepsis screen is negative. Does the patient have a suspected source of infection? No. Patient's initial sepsis screen is negative. Care prior to arrival: None. 07:13 Method Of Arrival: Wheelchair la1 07:13 Acuity: ASTER 3 la1 Historical: - Allergies: 07:14 No Known Allergies; la1 - Home Meds: 07:36 aspirin 81 mg Oral TbEC [Active]; calcium acetate 667 mg Oral cap [Active]; tw2 carbidopa-levodopa 25-100 mg Oral tab [Active]; gabapentin 100 mg Oral cap 3 times per day [Active]; 15:07 cephalexin 500 mg Oral cap 1 cap every 12 hours [Active]; acetaminophen-codeine 300-30 tw2 mg Oral tab 1 tab every 4-6 hours for Pain [Active]; Virt-Caps 1 mg oral cap 1 cap once daily [Active]; Vitamin D Oral 50,000 unit [Active]; midodrine 5 mg oral tab 2 tabs 3 times per day [Active]; citalopram 10 mg tab 1 tab once daily [Active]; - PMHx: 07:14 Diabetes - NIDDM; Dialysis; Hyperlipidemia; Hypertension; Renal Disease; Tues, Thurs, la1 Sat; Ulcers; - Immunization history:: Adult Immunizations up to date. - Social history:: Smoking status: Patient/guardian denies using tobacco. - Ebola Screening: : No symptoms or risks identified at this time. Screenin:34 Abuse screen: Denies threats or abuse. Nutritional screening: No deficits noted. tw2 Tuberculosis screening: No symptoms or risk factors identified. Fall Risk Secondary diagnosis (15 points) impaired mobility, Gait- Weak (10 pts.). Assessment: 07:30 General: Appears in no apparent distress. Behavior is quiet. Pain: Denies pain. Neuro: tw2 Level of Consciousness is awake, alert, obeys commands, Oriented to person, place, time, situation. Cardiovascular: Heart tones S1 S2 Capillary refill < 3 seconds Patient's skin is warm and dry. Dialysis shunt: in the left arm, with palpable thrill, with auscultated bruit, with no erythema, with no edema, no bleeding noted. Respiratory: Airway is patent Respiratory effort is even, unlabored, Respiratory pattern is regular, symmetrical, Breath sounds are clear bilaterally. GI: No signs and/or symptoms were reported involving the gastrointestinal system. Abdomen is round non-distended, Bowel sounds present X 4 quads. : No signs and/or symptoms were reported regarding the genitourinary system. EENT: No signs and/or symptoms were reported regarding the EENT system. Derm: No signs and/or symptoms reported regarding the dermatologic system. Skin is intact, is healthy with good turgor. Musculoskeletal: Amputation of right first toe and Right first toenail. 08:21 Reassessment: Patient appears in no apparent distress at this time. No changes from tw2 previously documented assessment. Patient and/or family updated on plan of care and expected duration. Pain level reassessed. Patient is alert, oriented x 3, equal unlabored respirations, skin warm/dry/pink. 09:00 Reassessment: CREATININE 8.2 per SixtoRN, provider notified. tw2 09:15 Reassessment: Patient appears in no apparent distress at this time. No changes from tw2 previously documented assessment. Patient and/or family updated on plan of care and expected duration. Pain level reassessed. Patient is alert, oriented x 3, equal unlabored respirations, skin warm/dry/pink. 09:55 Reassessment: Patient appears in no apparent distress at this time. No changes from tw2 previously documented assessment. Patient and/or family updated on plan of care and expected duration. Pain level reassessed. Patient is alert, oriented x 3, equal unlabored respirations, skin warm/dry/pink. 11:22 Reassessment: Patient appears in no apparent distress at this time. No changes from tw2 previously documented assessment. Patient and/or family updated on plan of care and expected duration. Pain level reassessed. Patient is alert, oriented x 3, equal unlabored respirations, skin warm/dry/pink. 12:40 Reassessment: Patient appears in no apparent distress at this time. No changes from tw2 previously documented assessment. Patient and/or family updated on plan of care and expected duration. Pain level reassessed. Patient is alert, oriented x 3, equal unlabored respirations, skin warm/dry/pink. 14:03 Reassessment: Patient appears in no apparent distress at this time. No changes from tw2 previously documented assessment. Patient and/or family updated on plan of care and expected duration. Pain level reassessed. Patient is alert, oriented x 3, equal unlabored respirations, skin warm/dry/pink. SEE [facility] CHART AT THIS TIME, PT IS ER = HOLD. Vital Signs: 07:14 BP 149 / 63; Pulse 88; Resp 16; Temp 97.8; Pulse Ox 94% on R/A; la1 07:58 Pain 0/10; tw2 08:21 BP 168 / 61; Pulse 86; Resp 16; Pulse Ox 96% on R/A; tw2 09:15 BP 125 / 63; Pulse 75; Resp 17; Pulse Ox 95% on R/A; tw2 09:54 BP 135 / 60; Pulse 78; Resp 15; Pulse Ox 95% on R/A; tw2 11:22 BP 135 / 81; Pulse 88; Resp 14; Pulse Ox 95% on R/A; mh5 12:44 BP 112 / 74; Pulse 87; Resp 16; Pulse Ox 95% ; sv 13:51 BP 144 / 64; Pulse 87; Resp 18; Pulse Ox 96% on R/A; mh5 14:04 BP 144 / 64; Pulse 85; Resp 17; Pulse Ox 96% on R/A; tw2 ED Course: 07:08 Patient arrived in ED. ag3 07:10 Mansoor Villavicencio MD is Attending Physician. kdr 07:14 Triage completed. la1 07:14 Arm band placed on left wrist. la1 07:16 Patino, Latrice, RN is Primary Nurse. tw2 07:34 Side rails up X2. Adult w/ patient. teletypesetter monitor on. Pulse ox on. NIBP on. Warm tw2 blanket given. Pillow given. 07:46 Initial lab(s) drawn, by me, sent to lab. First set of blood cultures drawn. mh5 07:51 Inserted saline lock: 22 gauge in right antecubital area, using aseptic technique. mh5 Blood collected. 07:52 Blood Culture Adult (2) Sent. mh5 07:52 Basic Metabolic Panel Sent. mh5 07:52 CBC with Diff Sent. mh5 07:53 LFT's Sent. mh5 07:53 Magnesium Sent. mh5 07:53 NT PRO-BNP Sent. mh5 07:53 PT-INR Sent. mh5 07:53 Troponin (emerg Dept Use Only) Sent. mh5 08:05 X-ray completed. Portable x-ray completed in exam room. sg4 08:06 XRAY Chest (1 view) In Process Unspecified. EDMS 08:06 Foot Right 3 View XRAY In Process Unspecified. EDMS 10:30 Elizabeth Guo MD is Hospitalizing Provider. kdr 14:04 No provider procedures requiring assistance completed. Patient admitted, IV remains in tw2 place. 15:19 Report given to TAMERA Daniel. tw2 Administered Medications: No medications were administered Point of Care Testing: Blood Glucose: 07:58 Blood Glucose: 165 mg/dL; tw2 Ranges: Outcome: 10:31 Decision to Hospitalize by Provider. kdr 14:04 Admitted to ER Hold. Please see [facility] for further documentation. tw2 14:04 Condition: stable 14:04 Instructed on the need for admit. 15:27 Patient left the ED. tw2 Signatures: Dispatcher [employer] EDJennifer Molina RN RN sv Rittger, Kevin, MD MD kdr Attema, Lee, RN RN la1 Latrice Patino RN RN 2 Donya Queen 5 Natalie Ny3 Bernice Kate sg4 Corrections: (The following items were deleted from the chart) 15:07 07:36 Home Meds: Calcium Carbonate Oral 2 tabs three times a day; tw2 tw2 15:07 07:36 Home Meds: carvedilol 25 mg Oral tab 1 tab 2 times per day; 07:36 Home Meds: Celexa 10 mg Oral tab 1 tab once daily; 07:36 Home Meds: Hemocyte 324 mg (106 mg iron) Oral tab daily; 07:36 Home Meds: Hemocyte-Plus 106 mg iron- 1 mg Oral cap 1 cap once daily; 07:36 Home Meds: Nexium 20 mg Oral cpDR 1 cap once daily; 07:36 Home Meds: Plavix 75 mg Oral tab 1 tab once daily; 07:36 Home Meds: pravastatin 40 mg Oral tab 1 tab once daily; 07:36 Home Meds: Tums 200 mg calcium (500 mg) Oral chew;
--- NOTE | 2018-08-03 10:32 | EDPHYS ---
Physician Documentation [facility] Name: Nadir Mendez Age: 73 yrs Sex: Male : 1945 Arrival Date: 08/03/2018 Time: 07:08 Bed 5 Private MD: ED Physician Mansoor Villavicencio HPI: 08/03 07:29 This 73 yrs old Male presents to ER via Wheelchair with complaints of Weakness.kdr 07:29 Family notes that the patient has been increasingly weak for the last two weeks since kdr he had his right great toe amputated. He has not had any further follow-up since the amputation and his last dialysis was Sunday. He was scheduled to go today but was too weak. Other than decreased appetite, there are no other focal or global concerns. Onset: The symptoms/episode began/occurred gradually, 2 week(s) ago. Severity of symptoms: At their worst the symptoms were mild in the emergency department the symptoms are unchanged. The patient has not experienced similar symptoms in the past. The patient has not recently seen a physician. Historical: - Allergies: 07:14 No Known Allergies; la1 - Home Meds: 07:36 aspirin 81 mg Oral TbEC [Active]; calcium acetate 667 mg Oral cap [Active]; tw2 carbidopa-levodopa 25-100 mg Oral tab [Active]; gabapentin 100 mg Oral cap 3 times per day [Active]; 15:07 cephalexin 500 mg Oral cap 1 cap every 12 hours [Active]; acetaminophen-codeine 300-30 tw2 mg Oral tab 1 tab every 4-6 hours for Pain [Active]; Virt-Caps 1 mg oral cap 1 cap once daily [Active]; Vitamin D Oral 50,000 unit [Active]; midodrine 5 mg oral tab 2 tabs 3 times per day [Active]; citalopram 10 mg tab 1 tab once daily [Active]; - PMHx: 07:14 Diabetes - NIDDM; Dialysis; Hyperlipidemia; Hypertension; Renal Disease; Tues, Thurs, la1 Sat; Ulcers; - Immunization history:: Adult Immunizations up to date. - Social history:: Smoking status: Patient/guardian denies using tobacco. - Ebola Screening: : No symptoms or risks identified at this time. ROS: 07:29 Constitutional: Negative for fever, chills, and weight loss, Eyes: Negative for injury, kdr pain, redness, and discharge, ENT: Negative for injury, pain, and discharge, Neck: Negative for injury, pain, and swelling, Cardiovascular: Negative for chest pain, palpitations, and edema, Respiratory: Negative for shortness of breath, cough, wheezing, and pleuritic chest pain, Abdomen/GI: Negative for abdominal pain, nausea, vomiting, diarrhea, and constipation, Back: Negative for injury and pain, : Negative for injury, bleeding, discharge, and swelling, MS/Extremity: Negative for injury and deformity, Skin: Negative for injury, rash, and discoloration, Neuro: Negative for headache, weakness, numbness, tingling, and seizure activity. Psych: Negative for depression, anxiety, suicide ideation, homicidal ideation, and hallucinations, Allergy/Immunology: Negative for hives, rash, and allergies, Endocrine: Negative for neck swelling, polydipsia, polyuria, polyphagia, and marked weight changes, Hematologic/Lymphatic: Negative for swollen nodes, abnormal bleeding, and unusual bruising. Exam: 07:29 Constitutional: This is a well developed, well nourished patient who is awake, alert, kdr and in no acute distress. Head/Face: Normocephalic, atraumatic. Eyes: Pupils equal round and reactive to light, extra-ocular motions intact. Lids and lashes normal. Conjunctiva and sclera are non-icteric and not injected. Cornea within normal limits. Periorbital areas with no swelling, redness, or edema. Neck: Trachea midline, no thyromegaly or masses palpated, and no cervical lymphadenopathy. Supple, full range of motion without nuchal rigidity, or vertebral point tenderness. No Meningismus. Chest/axilla: Normal chest wall appearance and motion. Nontender with no deformity. No lesions are appreciated. Cardiovascular: Regular rate and rhythm with a normal S1 and S2. No gallops, murmurs, or rubs. Normal PMI, no JVD. No pulse deficits. Respiratory: Lungs have equal breath sounds bilaterally, clear to auscultation and percussion. No rales, rhonchi or wheezes noted. No increased work of breathing, no retractions or nasal flaring. Abdomen/GI: Soft, non-tender, with normal bowel sounds. No distension or tympany. No guarding or rebound. No evidence of tenderness throughout. Back: No spinal tenderness. No costovertebral tenderness. Full range of motion. Skin: Warm, dry with normal turgor. Normal color with no rashes, no lesions, and no evidence of cellulitis. MS/ Extremity: Pulses equal, no cyanosis. Neurovascular intact. Full, normal range of motion. Neuro: Awake and alert, GCS 15, oriented to person, place, time, and situation. Cranial nerves II-XII grossly intact. Motor strength 5/5 in all extremities. Sensory grossly intact. Cerebellar exam normal. Normal gait. Psych: Awake, alert, with orientation to person, place and time. Behavior, mood, and affect are within normal limits. 07:29 Musculoskeletal/extremity: Extremities: Shunt in left upper arm/AC appears patent.. 07:29 Musculoskeletal/extremity: Right foot amputation site with small amount of bloody kdr drainage. Son changes daily and states that the last change was yesterday and he felt that there was more drainage today. Vital Signs: 07:14 BP 149 / 63; Pulse 88; Resp 16; Temp 97.8; Pulse Ox 94% on R/A; la1 07:58 Pain 0/10; tw2 08:21 BP 168 / 61; Pulse 86; Resp 16; Pulse Ox 96% on R/A; tw2 09:15 BP 125 / 63; Pulse 75; Resp 17; Pulse Ox 95% on R/A; tw2 09:54 BP 135 / 60; Pulse 78; Resp 15; Pulse Ox 95% on R/A; tw2 11:22 BP 135 / 81; Pulse 88; Resp 14; Pulse Ox 95% on R/A; mh5 12:44 BP 112 / 74; Pulse 87; Resp 16; Pulse Ox 95% ; sv 13:51 BP 144 / 64; Pulse 87; Resp 18; Pulse Ox 96% on R/A; mh5 14:04 BP 144 / 64; Pulse 85; Resp 17; Pulse Ox 96% on R/A; tw2 MDM: 10:31 Patient medically screened. kdr 10:35 Data reviewed: vital signs, nurses notes, lab test result(s), radiologic studies. kdr Counseling: I had a detailed discussion with the patient and/or guardian regarding: the historical points, exam findings, and any diagnostic results supporting the discharge/admit diagnosis, lab results, radiology results, the need for further work-up and treatment in the hospital. ED course: The patient was stable in the ED, admitted in fair condition. 08/03 07:29 Order name: Basic Metabolic Panel; Complete Time: 10: kdr 08/03 07:29 Order name: CBC with Diff; Complete Time: 08:15 kdr 08/03 07:29 Order name: LFT's; Complete Time: 10: kdr 08/03 07:29 Order name: Magnesium; Complete Time: 10: kdr 08/03 07:29 Order name: NT PRO-BNP; Complete Time: 10: kdr 08/03 07:29 Order name: PT-INR; Complete Time: 08:31 kdr 08/03 07:29 Order name: Troponin (emerg Dept Use Only); Complete Time: 10: kdr 08/03 07:29 Order name: XRAY Chest (1 view); Complete Time: 10: kdr 08/03 07:29 Order name: EKG; Complete Time: 07:30 kdr 08/03 07:29 Order name: Cardiac monitoring; Complete Time: 07:30 kdr 08/03 07:29 Order name: EKG - Nurse/Tech; Complete Time: 07:36 kdr 08/03 07:29 Order name: Blood Culture Adult (2) kdr 08/03 07:29 Order name: Foot Right 3 View XRAY; Complete Time: 10: kdr 08/03 08:53 Order name: Glucose, Ancillary Testing; Complete Time: 10:21 EDMS 08/03 07:29 Order name: IV Saline Lock; Complete Time: 07:53 kdr 08/03 07:29 Order name: Labs collected and sent; Complete Time: 07:53 kdr 08/03 07:29 Order name: O2 Per Protocol; Complete Time: 07:30 kdr 08/03 07:29 Order name: O2 Sat Monitoring; Complete Time: 07:30 kdr Administered Medications: No medications were administered Point of Care Testing: Blood Glucose: 07:58 Blood Glucose: 165 mg/dL; tw2 Ranges: Critical Glucose Levels:Adult <50 mg/dl or >400 mg/dl <40 mg/dl or >180 mg/dl Disposition: 08/03/18 10:31 Hospitalization ordered by Elizabeth Guo for Observation. Preliminary diagnosis are Weakness, Congestive heart failure. S/p right great toe amputation, HTN, ESRD, DM. - Bed requested for Telemetry/MedSurg (observation). - Status is Observation. tw - Condition is Fair. - Problem is new. - Symptoms have improved. UTI on Admission? No Signatures: Dispatcher [employer] EDSarahi Jackson RN RN Mansoor Serrano MD MD kdr Attema, Lee RN RN la1 Latrice Patino RN RN tw2 Chiquita Flores Corrections: (The following items were deleted from the chart) 13:28 10:31 Hospitalization Ordered by Elizabeth Guo MD for Observation. Preliminary diagnosis eb is Weakness; Congestive heart failure. S/p right great toe amputation, HTN, ESRD, DM. Bed requested for Telemetry/MedSurg (observation). Status is Observation. Condition is Fair. Problem is new. Symptoms have improved. UTI on Admission? No. kdr 14:55 13:28 08/03/2018 10:31 Hospitalization Ordered by Elizabeth Guo MD for Observation. dw Preliminary diagnosis is Weakness; Congestive heart failure. S/p right great toe amputation, HTN, ESRD, DM. Bed requested for [facility] ER HOLD. Status is Observation. Condition is Fair. Problem is new. Symptoms have improved. UTI on Admission? No. eb 14:56 14:55 08/03/2018 10:31 Hospitalization Ordered by Elizabeth Guo MD for Observation. dw Preliminary diagnosis is Weakness; Congestive heart failure. S/p right great toe amputation, HTN, ESRD, DM. Bed requested for Telemetry/MedSurg (observation). Status is Observation. Condition is Fair. Problem is new. Symptoms have improved. UTI on Admission? No. dw 15: 07:36 Home Meds: Calcium Carbonate Oral 2 tabs three times a day; 15: 07:36 Home Meds: carvedilol 25 mg Oral tab 1 tab 2 times per day; : 07:36 Home Meds: Celexa 10 mg Oral tab 1 tab once daily; 15: 07:36 Home Meds: Hemocyte 324 mg (106 mg iron) Oral tab daily; 15: 07:36 Home Meds: Hemocyte-Plus 106 mg iron- 1 mg Oral cap 1 cap once daily; 07:36 Home Meds: Nexium 20 mg Oral cpDR 1 cap once daily; tw2 : 07:36 Home Meds: Plavix 75 mg Oral tab 1 tab once daily; tw2 07:36 Home Meds: pravastatin 40 mg Oral tab 1 tab once daily; tw2 : 07:36 Home Meds: Tums 200 mg calcium (500 mg) Oral chew; 15: 14:56 08/03/2018 10:31 Hospitalization Ordered by Elizabeth Guo MD for Observation. tw2 Preliminary diagnosis is Weakness; Congestive heart failure. S/p right great toe amputation, HTN, ESRD, DM. Bed requested for Telemetry/MedSurg (observation). Status is Observation. Condition is Fair. Problem is new. Symptoms have improved. UTI on Admission? No. dw
[2018-08-03] MEDS ORDERED: ACETAMINOPHEN 500 MG TAB PO PRN (13:20)
[2018-08-03] MEDS ORDERED: GLUCAGON 1 MG/VIAL IM PRN (13:27)
[2018-08-03] MEDS ORDERED: D50W 25 GM/50 ML SYRINGE IV PRN (13:27)
[2018-08-03] MEDS: INSULIN -REGULAR HUMAN 50 UNIT/0.5 ML ML SQ SCH ×2 (16:30→21:00)
--- NOTE | 2018-08-03 21:34 | P.CNS ---
Date of Consult: 08/03/18 Reason for Consult: ESRD to resume HD and volume management Chief Complaint: [place] History of Present Illness: A 73-year-old gentleman with significant past medical history of hypertension, hyperlipidemia, diabetes with neuropathy and nephropathy, osteoarthritis, hep C , end-stage renal disease on hemodialysis Via AVF . Pt presented for generalized progressive weakness Pt was admitted in June for toe gangrene and had toe resection this month as per family pt was feeling weak before the surgery and his ysmptoms became worse after the surgery due to limited ambulation no chest pain, palpitation, nausea, vomiting or diarrhea Allergies No Known Drug Allergies Allergy (Verified 07/24/18 10:49) Unknown Home Medications: Gabapentin [Neurontin*] 100 mg PO TID 12/31/12 Pravastatin [Pravachol*] 40 mg PO DAILY 12/31/12 Citalopram [Celexa*] 10 mg PO DAILY 04/15/16 Carbidopa/Levodopa [Carbidopa-Levo 25-100 mg Odt] 1 tab PO BID 09/12/16 Iron/FA/Vit B-Com W/C [Hemocyte Plus*] 1 cap PO DAILY 03/30/18 Pregabalin [Lyrica] 75 mg PO DAILY 05/25/18 Aspirin [Low Dose Aspirin EC] 81 mg PO 08/03/18 B Complex W-C No.20/Folic Acid [Virt-Caps Softgel] 1 cap PO DAILY 08/03/18 Cephalexin [Keflex] 500 mg PO Q12HR 08/03/18 Codeine/APAP [Tylenol W/Codeine #3 tab] 1 tab PO Q4HP PRN 08/03/18 Ergocalciferol (Vitamin D2) [Vitamin D2] 50,000 unit PO SEECOM 08/03/18 Midodrine HCl [Proamatine] 5 mg PO SEECOM 08/03/18 - Past Medical/Surgical History Diabetic: Yes -: Hypertension -: Neuropathy -: Hyperlipidemia -: ESRD -: DM -: DDD/DJD of the spine -: Anemia of chronic disease -: Hepatitis C -: History of pancreatitis -: Dialysis stent -: LLE Stent -: Right foot sx r/t fx -: vein procedure on r femoral Psychosocial/ Personal History: has recently. - Social History Smoking Status: Unknown if ever smoked Alcohol use: No CD- Drugs: No Caffeine use: No Physical Examination Temp Pulse Resp BP Pulse Ox 98.0 F 78 16 143/71 H 95 08/03/18 16:00 08/03/18 16:00 08/03/18 16:00 08/03/18 16:00 08/03/18 16:00 General: Oriented x3 HEENT: Atraumatic Neck: Supple, Without JVD or thyroid abnormality Respiratory: Clear to auscultation bilaterally Cardiovascular: Regular rate/rhythm, Normal S1 S2, No rubs, No murmurs, Edema Laboratory Data (last 24 hrs) 08/03/18 07:46: PT 14.7 H, INR 1.24 08/03/18 07:46: WBC 11.0 H D, Hgb 12.4 L, Hct 36.6 L, Plt Count 205 D 08/03/18 07:46: Sodium 135 L, Potassium 3.6, BUN 49 H, Creatinine 8.20 H* D, Glucose 155 H, Magnesium 2.5 H, Total Bilirubin 0.8, AST 28, ALT 8 L, Alkaline Phosphatase 95 - Problems (1) Electrolyte imbalance Current Visit: No Status: Acute (2) Neuropathy Current Visit: No Status: Chronic (3) Peripheral vascular disease due to secondary diabetes Onset Date: 05/27/18 Current Visit: No Status: Chronic (4) Coronary arteriosclerosis Current Visit: No Status: Chronic (5) Diabetes mellitus Onset Date: 09/13/16 Current Visit: No Status: Chronic (6) ESRD (end stage renal disease) Current Visit: No Status: Chronic Conclusions/Impression: A 73-year-old gentleman with significant past medical history of hypertension, hyperlipidemia, diabetes with neuropathy and nephropathy, osteoarthritis, hep C , end-stage renal disease on hemodialysis Via AVF . Pt presented for generalized progressive weakness Pt was admitted in June for toe gangrene and had toe resection this month as per family pt was feeling weak before the surgery and his ysmptoms became worse after the surgery due to limited ambulation no chest pain, palpitation, nausea, vomiting or diarrhea ESRD on HD via AVF will dialyse tomorrow renal diet renal dose meds weakness K and calcium ok Pt/OT Anemia Hb >10 no need for BEAU at this time MBD will check PTH and PHos PVD
--- NOTE | 2018-08-03 22:39 | P.HP ---
Certification for Inpatient Patient admitted to: Observation With expected LOS: <2 Midnights Practitioner: I am a practitioner with admitting privileges, knowledge of patient current condition, hospital course, and medical plan of care. Services: Services provided to patient in accordance with Admission requirements found in Title 42 Section 412.3 of the Code of Federal Regulations Patient History Date of Service: 08/04/18 Reason for admission: [place] History of Present Illness: This is a 73-year-old male with history of ESRD on dialysis, Parkinson's disease , depression, diabetes, recent amputation admitted for weakness. Per patient and family, he has been feeling more more weak, decreased appetite, not really wanting to eat for the past week or so. He also had to skip dialysis previous Sunday due to his weakness and he was told by his dialysis center to come to the ER. At the time of my exam, patient was hemodynamically stable, alert oriented x3 eating his meal without any distress. Allergies No Known Drug Allergies Allergy (Verified 07/24/18 10:49) Unknown Home Medications: RX: Gabapentin [Neurontin*] 100 mg PO TID 12/31/12 RX: Pravastatin [Pravachol*] 40 mg PO DAILY 12/31/12 RX: Citalopram [Celexa*] 10 mg PO DAILY 04/15/16 RX: Carbidopa/Levodopa [Carbidopa-Levo 25-100 mg Odt] 1 tab PO BID 09/12/16 RX: Iron/FA/Vit B-Com W/C [Hemocyte Plus*] 1 cap PO DAILY 03/30/18 Pregabalin [Lyrica] 75 mg PO DAILY 05/25/18 Aspirin [Low Dose Aspirin EC] 81 mg PO DAILY 08/03/18 B Complex W-C No.20/Folic Acid [Virt-Caps Softgel] 1 cap PO DAILY 08/03/18 Cephalexin [Keflex] 500 mg PO Q12HR 08/03/18 Codeine/APAP [Tylenol W/Codeine #3 tab] 1 tab PO Q4HP PRN 08/03/18 Ergocalciferol (Vitamin D2) [Vitamin D2] 50,000 unit PO SEECOM 08/03/18 Midodrine HCl [Proamatine] 5 mg PO SEECOM 08/03/18 - Past Medical/Surgical History Has patient received pneumonia vaccine in the past: Yes Diabetic: Yes -: Hypertension -: Neuropathy -: Hyperlipidemia -: ESRD -: DM -: DDD/DJD of the spine -: Anemia of chronic disease -: Hepatitis C -: History of pancreatitis -: Dialysis stent -: LLE Stent -: Right foot sx r/t fx -: vein procedure on r femoral Psychosocial/ Personal History: has recently. - Social History Smoking Status: Unknown if ever smoked Alcohol use: No CD- Drugs: No Caffeine use: No Review of Systems General: Weakness, As per HPI Eyes: Unremarkable ENT: Unremarkable Respiratory: Unremarkable Cardiovascular: Unremarkable Gastrointestinal: Unremarkable Musculoskeletal: Unremarkable Integumentary: Unremarkable Neurological: Unremarkable Lymphatics: Unremarkable Physical Examination - Vital Signs Temperature: 98.3 F Blood Pressure: 189/86 Pulse: 85 Respirations: 16 Pulse Ox (%): 93 - Physical Exam General: Alert, In no apparent distress, Oriented x3 HEENT: Atraumatic, PERRLA, Mucous membr. moist/pink, EOMI, Sclerae nonicteric Neck: Supple, 2+ carotid pulse no bruit, No LAD, Without JVD or thyroid abnormality Respiratory: Clear to auscultation bilaterally, Normal air movement Cardiovascular: Regular rate/rhythm, Normal S1 S2 Gastrointestinal: Normal bowel sounds, No tenderness Musculoskeletal: No tenderness Integumentary: No rashes Neurological: Normal gait, Normal speech, Normal strength at 5/5 x4 extr, Normal tone, Abnormal affect Lymphatics: No axilla or inguinal lymphadenopathy - Studies Laboratory Data (last 24 hrs) 08/03/18 07:46: PT 14.7 H, INR 1.24 08/03/18 07:46: WBC 11.0 H D, Hgb 12.4 L, Hct 36.6 L, Plt Count 205 D 08/03/18 07:46: Sodium 135 L, Potassium 3.6, BUN 49 H, Creatinine 8.20 H* D, Glucose 155 H, Magnesium 2.5 H, Total Bilirubin 0.8, AST 28, ALT 8 L, Alkaline Phosphatase 95 Assessment and Plan - Plan This is a 73 yr old M with: Generalized weakness Per patient and family, he walks at home with a walker. Patient already had home health with physical therapy set up that was supposed to start tomorrow. Protein shakes as tolerated PT/OT consult ESRD, dialysis M,W,F though due to the holiday this last week to schedule was T, Th,S Missed last dialysis due to feeling weak, denies any cp, sob at this time Nephrology consulted. Planning to dialyze tomorrow PVD Status post right 1st toe transmetatarsal amputation 2 weeks ago Stable, no evidence of infection at amputation site. Chest x-ray negative for any acute abnormalities at this time. Continue bandage changes DM, T2 Strict blood sugar control. Accu-Cheks a.c. HS, sliding scale insulin. Will adjust as needed Essential HTN Stable, restart home medications. Depression Abnormal affect Per son, patient seems to have been more depressed since his amputation 2 weeks ago. This could also be contributing to generalized weakness. Will restart home medication and continue to monitor. No suicidal homicidal ideations at this time History of Parkinson's disease Seems to be stable, restart home medications Neuropathy Restart home medications Anemia of chronic disease. H&H stable. Will continue to monitor Hyperlipidemia Continue statin DVT prophylaxis: Lovenox GI prophylaxis: not needed Diet: Renal Dispo: Pending dialysis, symptomatic improvement. - Advance Directives Does patient have a Living Will: No Does patient have a Durable POA for Healthcare: No Physician Review: Patient Assessed, Agree with Above Assessment and Plan Time Spent Managing Pts Care (In Minutes): 55
[2018-08-04] MEDS ORDERED: NA CHLORIDE 0.9% 1,000 ML IV PRN (01:45)
[2018-08-04] MEDS ORDERED: ALBUMIN HUMAN 25% 50 ML IV SCH (02:00)
[2018-08-04 05:30] LABS: Absolute Lymphocytes (CBC) 1.1 K/uL (0.7-4.9); Absolute Neutrophil 6.3 K/uL (1.8-8.0); Basophils % 0.4 % (0-1.3); Eosinophils % 4.2 % (0-4.4); Lymphocytes % 12.5 % (15.3-44.8); MCH 34.4 pg (27.0-35.0); MCV 100.9 fL (80-100); MPV 9.5 fL (7.6-11.3); Monocytes % 11.1 % (3.3-12.3); RBC Red Blood Cell Count 3.56 M/uL (4.33-5.43)
[2018-08-04 05:44] LABS: AST/SGOT 25 U/L (15-37); Albumin 2.1 g/dL (3.4-5.0); Alkaline Phosphatase 84 U/L (45-117); BUN Blood Urea Nitrogen 60 mg/dL (7-18); Bicarbonate 23 mmol/L (21-32); Bilirubin Total 0.7 mg/dL (0.2-1.0); Glucose Level 113 mg/dL (74-106); Potassium 3.9 mmol/L (3.5-5.1); Sodium Level 137 mmol/L (136-145)
[2018-08-04 05:49] LABS: ALT/SGPT < 6 U/L (12-78)
[2018-08-04] MEDS: INSULIN -REGULAR HUMAN 50 UNIT/0.5 ML ML SQ SCH ×4 (07:30→21:00)
--- NOTE | 2018-08-04 09:46 | EKG ---
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
--- NOTE | 2018-08-04 11:41 | P.PN ---
Subjective Date of Service: 08/04/18 Chief Complaint: [place] Subjective: No new changes HD today then TTsat original OP schedule MWF still felling weak PT/OT Wound care Physical Examination - Vital Signs Temperature: 97.7 F Blood Pressure: 143/69 Pulse: 80 Respirations: 16 Pulse Ox (%): 92 - Physical Exam General: Alert HEENT: Atraumatic Neck: Supple, Without JVD or thyroid abnormality Respiratory: Clear to auscultation bilaterally Cardiovascular: Regular rate/rhythm, Normal S1 S2, No rubs, No murmurs, Edema Gastrointestinal: Normal bowel sounds Assessment And Plan - Current Problems (Diagnosis) (1) Electrolyte imbalance Current Visit: No Status: Acute (2) Neuropathy Current Visit: No Status: Chronic (3) Peripheral vascular disease due to secondary diabetes Onset Date: 05/27/18 Current Visit: No Status: Chronic (4) Coronary arteriosclerosis Current Visit: No Status: Chronic (5) Diabetes mellitus Onset Date: 09/13/16 Current Visit: No Status: Chronic (6) ESRD (end stage renal disease) Current Visit: No Status: Chronic - Plan A 73-year-old gentleman with significant past medical history of hypertension, hyperlipidemia, diabetes with neuropathy and nephropathy, osteoarthritis, hep C , end-stage renal disease on hemodialysis Via AVF . Pt presented for generalized progressive weakness Pt was admitted in June for toe gangrene and had toe resection this month as per family pt was feeling weak before the surgery and his ysmptoms became worse after the surgery due to limited ambulation no chest pain, palpitation, nausea, vomiting or diarrhea ESRD on HD via AVF HD today then TTsat original schedule MWF renal diet renal dose meds weakness K and calcium ok Pt/OT Anemia Hb >10 no need for BEAU at this time MBD will check PTH and PHos PVD need wound care
[2018-08-04] MEDS ORDERED: MIDODRINE HCL 5 MG TABLET PO SCH (16:00)
--- NOTE | 2018-08-04 17:01 | P.PN ---
Subjective Date of Service: 08/04/18 Chief Complaint: [place] Subjective: No new changes, No C/O voiced Patient seen and examined at bedside. No family at bedside. Case discussed with nursing staff. Review of Systems As noted Physical Examination - Vital Signs Temperature: 98.3 F Blood Pressure: 189/86 Pulse: 85 Respirations: 16 Pulse Ox (%): 93 - Physical Exam General: Alert, In no apparent distress, Oriented x3 HEENT: Atraumatic, PERRLA, EOMI Neck: Supple, JVD not distended Respiratory: Clear to auscultation bilaterally, Normal air movement Cardiovascular: Regular rate/rhythm, Normal S1 S2 Gastrointestinal: Normal bowel sounds, No tenderness Musculoskeletal: No tenderness Integumentary: No rashes Neurological: Normal speech, Normal tone, Normal affect Assessment And Plan - Plan This is a 73 yr old M with: Generalized weakness Per patient and family, he walks at home with a walker. Patient already had home health with physical therapy set up that was supposed to start tomorrow. Protein shakes as tolerated PT/OT consult ESRD, dialysis M,W,F though due to the holiday this last week to schedule was T, Th,S Missed last dialysis due to feeling weak, denies any cp, sob at this time Nephrology consulted. Planning to dialyze tomorrow PVD Status post right 1st toe transmetatarsal amputation 2 weeks ago Stable, no evidence of infection at amputation site. Chest x-ray negative for any acute abnormalities at this time. Continue bandage changes DM, T2 Strict blood sugar control. Accu-Cheks a.c. HS, sliding scale insulin. Will adjust as needed Essential HTN Stable, restart home medications. Depression Abnormal affect Per son, patient seems to have been more depressed since his amputation 2 weeks ago. This could also be contributing to generalized weakness. Will restart home medication and continue to monitor. No suicidal homicidal ideations at this time History of Parkinson's disease Seems to be stable, restart home medications Neuropathy Restart home medications Anemia of chronic disease. H&H stable. Will continue to monitor Hyperlipidemia Continue statin DVT prophylaxis: Lovenox GI prophylaxis: not needed Diet: Renal Dispo: Pending dialysis, symptomatic improvement. Physician Review: Patient Assessed, Agree with Above Assessment and Plan Time Spent Managing PTS Care (In Minutes): 45
[2018-08-04] MEDS: GABAPENTIN 100 MG CAP PO SCH (21:42)
[2018-08-04] MEDS: ATORVASTATIN 10 MG TAB PO SCH (21:43)
[2018-08-04] MEDS: CARBIDOPA/LEVODOPA 25/100 TAB PO SCH (21:43)
[2018-08-05 05:54] LABS: Absolute Lymphocytes (CBC) 0.8 K/uL (0.7-4.9); Absolute Monocytes 0.7 K/uL (0.1-1.3); Absolute Neutrophil 9.4 K/uL (1.8-8.0); Basophils % 0.2 % (0-1.3); Eosinophils % 0.1 % (0-4.4); Hematocrit 36.6 % (39.6-49.0); Lymphocytes % 7.1 % (15.3-44.8); MCH 34.4 pg (27.0-35.0); MCV 99.7 fL (80-100); MPV 9.5 fL (7.6-11.3); Monocytes % 6.4 % (3.3-12.3); RBC Red Blood Cell Count 3.67 M/uL (4.33-5.43)
[2018-08-05 06:24] LABS: ALT/SGPT < 6 U/L (12-78); AST/SGOT 28 U/L (15-37); Albumin 2.2 g/dL (3.4-5.0); Alkaline Phosphatase 88 U/L (45-117); BUN Blood Urea Nitrogen 37 mg/dL (7-18); Bicarbonate 24 mmol/L (21-32); Bilirubin Total 0.8 mg/dL (0.2-1.0); Glucose Level 162 mg/dL (74-106); Phosphorus 6.4 mg/dL (2.5-4.9); Potassium 3.9 mmol/L (3.5-5.1); Protein, Total 7.3 g/dL (6.4-8.2); Sodium Level 135 mmol/L (136-145)
[2018-08-05 06:53] VITALS: BMI 29.3
[2018-08-05] MEDS: INSULIN -REGULAR HUMAN 50 UNIT/0.5 ML ML SQ SCH ×4 (07:30→21:00)
[2018-08-05 08:26] LABS: Urine White Blood Cell Casts OK
[2018-08-05 08:27] LABS: Blood Morphology Comment NOT SEEN (NOT SEEN); Platelet Estimate ADEQ
[2018-08-05] MEDS: PREGABALIN 75 MG CAP PO SCH (10:09)
[2018-08-05] MEDS: CARBIDOPA/LEVODOPA 25/100 TAB PO SCH ×2 (10:09→21:01)
[2018-08-05] MEDS: CITALOPRAM 10 MG TABLET PO SCH (10:09)
[2018-08-05] MEDS: GABAPENTIN 100 MG CAP PO SCH ×3 (10:09→21:01)
[2018-08-05] MEDS: ASPIRIN EC 81 MG TAB PO SCH (10:09)
--- NOTE | 2018-08-05 17:59 | P.PN ---
Subjective Date of Service: 08/05/18 Chief Complaint: [place] Subjective: No new changes, No C/O voiced Patient seen and examined at bedside. No family at bedside. Case discussed with nursing staff. Review of Systems As noted Physical Examination - Vital Signs Temperature: 97.7 F Blood Pressure: 143/68 Pulse: 78 Respirations: 20 Pulse Ox (%): 93 - Physical Exam General: Alert, In no apparent distress, Oriented x3 HEENT: Atraumatic, PERRLA, EOMI Neck: Supple, JVD not distended Respiratory: Clear to auscultation bilaterally, Normal air movement Cardiovascular: Regular rate/rhythm, Normal S1 S2 Gastrointestinal: Normal bowel sounds, No tenderness Musculoskeletal: No tenderness Integumentary: No rashes Neurological: Normal speech, Normal tone, Normal affect Lymphatics: No axilla or inguinal lymphadenopathy Assessment And Plan - Plan This is a 73 yr old M with: Generalized weakness Per patient and family, he walks at home with a walker. Patient had home health with physical therapy set up that was supposed to start tomorrow. Protein shakes as tolerated PT/OT consult - possible placement at a long term facility for rehab? ESRD, dialysis M,W,F though due to the holiday this last week to schedule was T, Th,S Missed last dialysis due to feeling weak, denies any cp, sob at this time Nephrology consulted. Recommendations appreciated PVD Status post right 1st toe transmetatarsal amputation 2 weeks ago Stable, no evidence of infection at amputation site. Chest x-ray negative for any acute abnormalities at this time. DM, T2 Strict blood sugar control. Accu-Cheks a.c. HS, sliding scale insulin. Will adjust as needed Essential HTN Stable, continue home medications. Depression Abnormal affect Per son, patient seems to have been more depressed since his amputation 2 weeks ago. This could also be contributing to generalized weakness. Will restart home medication and continue to monitor. No suicidal homicidal ideations at this time History of Parkinson's disease Seems to be stable, restart home medications Neuropathy Restart home medications Anemia of chronic disease. H&H stable. Will continue to monitor Hyperlipidemia Continue statin DVT prophylaxis: Lovenox GI prophylaxis: not needed Diet: Renal Dispo: Pending dialysis, symptomatic improvement. May need placement for rehab in a long term facility versus home health with physical therapy. Physician Review: Patient Assessed, Agree with Above Assessment and Plan
[2018-08-05] MEDS ORDERED: HYDRALAZINE HCL 20 MG/ML VIAL IV PRN (21:00)
[2018-08-05] MEDS: ATORVASTATIN 10 MG TAB PO SCH (21:01)
[2018-08-06 06:07] LABS: AST/SGOT 46 U/L (15-37); Albumin 2.1 g/dL (3.4-5.0); Alkaline Phosphatase 79 U/L (45-117); BUN Blood Urea Nitrogen 57 mg/dL (7-18); Bicarbonate 24 mmol/L (21-32); Bilirubin Total 0.7 mg/dL (0.2-1.0); Glucose Level 113 mg/dL (74-106); Magnesium 2.6 mg/dL (1.8-2.4); Phosphorus 6.6 mg/dL (2.5-4.9); Potassium 3.9 mmol/L (3.5-5.1); Protein, Total 7.1 g/dL (6.4-8.2); Sodium Level 133 mmol/L (136-145)
[2018-08-06 06:09] LABS: ALT/SGPT < 6 U/L (12-78)
[2018-08-06 06:10] LABS: Arterial Blood Carboxyhemoglob 1.7 % (0-1.5); Blood O2 Saturation 89.2 % (92-98.5)
[2018-08-06 06:12] LABS: Absolute Lymphocytes (CBC) 1.1 K/uL (0.7-4.9); Absolute Monocytes 1.2 K/uL (0.1-1.3); Absolute Neutrophil 7.2 K/uL (1.8-8.0); Basophils % 0.2 % (0-1.3); Eosinophils % 4.5 % (0-4.4); Lymphocytes % 10.7 % (15.3-44.8); MCH 34.6 pg (27.0-35.0); MCV 100.1 fL (80-100); Monocytes % 12.3 % (3.3-12.3)
[2018-08-06] MEDS: INSULIN -REGULAR HUMAN 50 UNIT/0.5 ML ML SQ SCH ×4 (07:30→21:00)
[2018-08-06] MEDS: CITALOPRAM 10 MG TABLET PO SCH (10:04)
[2018-08-06] MEDS: CARBIDOPA/LEVODOPA 25/100 TAB PO SCH ×2 (10:04→21:24)
[2018-08-06] MEDS: ASPIRIN EC 81 MG TAB PO SCH (10:04)
[2018-08-06] MEDS: GABAPENTIN 100 MG CAP PO SCH ×2 (10:04→14:00)
[2018-08-06] MEDS: PREGABALIN 75 MG CAP PO SCH (10:04)
--- NOTE | 2018-08-06 13:15 | P.PN ---
Subjective Date of Service: 08/06/18 Primary Care Provider: Merna Chief Complaint: Weakness Subjective: No new changes (Patient states he has pain in his foot.) Review of Systems 10-point ROS is otherwise unremarkable General: Weakness Musculoskeletal: Foot Pain Physical Examination - Vital Signs Temperature: 97.2 F Blood Pressure: 142/67 Pulse: 76 Respirations: 17 Pulse Ox (%): 96 - Physical Exam General: Alert, In no apparent distress HEENT: Atraumatic, PERRLA, EOMI Neck: Supple, JVD not distended Respiratory: Clear to auscultation bilaterally, Normal air movement Cardiovascular: Regular rate/rhythm, Normal S1 S2 Gastrointestinal: Normal bowel sounds, No tenderness Musculoskeletal: No tenderness Integumentary: No rashes Neurological: Normal speech, Normal tone, Normal affect Lymphatics: No axilla or inguinal lymphadenopathy Assessment & Plan - Problems (Diagnosis) (1) End stage renal failure on dialysis Onset Date: 09/13/16 Current Visit: No Status: Chronic Plan: Patient is getting dialysis with Dr Tonny vu. (2) Peripheral vascular disease due to secondary diabetes Onset Date: 05/27/18 Current Visit: No Status: Chronic Plan: s/p amputation of the metatarsal joint. He has been declining in function since then (3) Type 2 diabetes mellitus with diabetic peripheral angiopathy with gangrene Onset Date: 06/20/18 Current Visit: No Status: Chronic Plan: Will continue to monitor the patients sugars. Adjust his medications as necessary Qualifiers: Diabetes mellitus longterm insulin use: with terminal clerk use Qualified Code( s): E11.52 - Type 2 diabetes mellitus with diabetic peripheral angiopathy with gangrene; Z79.4 - custodial (current) use of insulin (4) Generalized weakness Onset Date: 08/05/18 Current Visit: No Status: Chronic Plan: Have spoken to the patient's son. He has been getting more lethargic, depressed. Spending more time sleeping. He and the daughter are planning on talking to him. Going to SNF and PT a antidepressant may be warrented in this patient Discharge Plan: Home Plan to discharge in: 24 Hours - Code Status/Comfort Care Code Status Assessed: No Code Status: Full Code Physician Review: Patient Assessed, Agree with Above Assessment and Plan Critical Care: No Time Spent Managing Pts Care (In Minutes): 35
[2018-08-06] MEDS: ATORVASTATIN 10 MG TAB PO SCH (21:23)
--- NOTE | 2018-08-07 01:20 | PN ---
Date of Progress Note: 08/06/2018 Subjective: The patient was admitted with foot infection. The patient denied any nausea, any vomiti ng. Physical Examination: Vital Signs: Blood pressure 140/67. Chest: Clear to auscultation. Heart: S1, S2. Regular. Abdomen: Soft, nontender. Extremities: No edema, dressing on the right foot. Laboratory Data: H and H of 12.8/37. Sodium 133, potassium 3.9, bicarb 24, BUN 57, creatinine 7.6, calcium 8.4, phosphorous 6.6, magnesium 2.6. Current Medications: The patient on its include: 1.Aspirin. 2.Midodrine. 3.Hydralazine p.r.n. 4.Carbidopa. 5.Citalopram. 6.Gabapentin. 7.Lyrica. 8.Sertraline. Assessment And Plan: 1.End-stage renal disease. The patient will be scheduled for dialysis today. 2.Hypertension, currently hypotension, continue midodrine. 3.Anemia of chronic kidney disease. No need for BEAU. 4.Foot infection. We will follow up with the primary. Continue current antibiotic. Follow up with Surgery. HARISH Voice ID: [id number] Report ID: [id number]
[2018-08-07 03:34] LABS: HBsAG Nonreactive (Nonreactive)
[2018-08-07 05:22] VITALS: O2SAT 95
[2018-08-07 06:08] LABS: Absolute Lymphocytes (CBC) 0.9 K/uL (0.7-4.9); Absolute Monocytes 1.2 K/uL (0.1-1.3); Absolute Neutrophil 6.5 K/uL (1.8-8.0); Basophils % 0.3 % (0-1.3); Eosinophils % 4.8 % (0-4.4); Hematocrit 36.9 % (39.6-49.0); Lymphocytes % 10.2 % (15.3-44.8); MCH 34.6 pg (27.0-35.0); MCV 100.8 fL (80-100); MPV 9.5 fL (7.6-11.3); Monocytes % 12.9 % (3.3-12.3); RBC Red Blood Cell Count 3.66 M/uL (4.33-5.43)
[2018-08-07 06:23] LABS: Albumin 2.1 g/dL (3.4-5.0); Bilirubin Total 0.6 mg/dL (0.2-1.0); Potassium 3.6 mmol/L (3.5-5.1); Protein, Total 7.1 g/dL (6.4-8.2)
[2018-08-07] MEDS: INSULIN -REGULAR HUMAN 50 UNIT/0.5 ML ML SQ SCH ×2 (07:30→11:51)
[2018-08-07] MEDS ORDERED: SERTRALINE HCL 50 MG TAB PO SCH (09:00)
[2018-08-07] MEDS: PREGABALIN 75 MG CAP PO SCH (09:45)
[2018-08-07] MEDS: CARBIDOPA/LEVODOPA 25/100 TAB PO SCH (09:46)
[2018-08-07] MEDS: ASPIRIN EC 81 MG TAB PO SCH (09:46)
[2018-08-07] MEDS: CITALOPRAM 10 MG TABLET PO SCH (09:46)
--- NOTE | 2018-08-07 10:12 | P.DS ---
Admission Date: 08/03/18 Discharge Date: 08/07/18 Primary Care Provider: Merna Disposition: ROUTINE DISCHARGE Discharge Condition: FAIR Reason for Admission: Weakness - Problems (1) End stage renal failure on dialysis Onset Date: 09/13/16 Current Visit: No Status: Chronic (2) Peripheral vascular disease due to secondary diabetes Onset Date: 05/27/18 Current Visit: No Status: Chronic (3) Type 2 diabetes mellitus with diabetic peripheral angiopathy with gangrene Onset Date: 06/20/18 Current Visit: No Status: Chronic Qualifiers: Diabetes mellitus fpc insulin use: with fpc use Qualified Code( s): E11.52 - Type 2 diabetes mellitus with diabetic peripheral angiopathy with gangrene; Z79.4 - USP (current) use of insulin (4) Generalized weakness Onset Date: 08/05/18 Current Visit: No Status: Chronic Brief History of Present Illness: Patient has been feeling low since his amputation. Did not go to his dialysis and was admitted over the holidays for dialysis Hospital Course: Patient recieved dialysis with Dr. Hawkins. Disposition became an issue. His daughter and son have been taking care of him. However state that the patient has been more depressed. Only wants to sleep and not go to dialysis. Has been talking about moving on. This has been since the amputation. Which can cause depression. We did try to get him to a snf. The patient seems to require more care than the family can provide. We were not able due to insurance. The family agreed to take him home. Will start him on an antidepressant. Will have him follow up in the wound care center Vital Signs/Physical Exam: Temp Pulse Resp BP Pulse Ox 97.0 F 75 17 150/68 H 95 08/07/18 04:00 08/07/18 04:00 08/07/18 04:00 08/07/18 04:00 08/07/18 04:00 General: Alert, In no apparent distress HEENT: Atraumatic, PERRLA, EOMI Neck: Supple, JVD not distended Respiratory: Clear to auscultation bilaterally, Normal air movement Cardiovascular: Regular rate/rhythm, Normal S1 S2 Gastrointestinal: Normal bowel sounds, No tenderness Musculoskeletal: No tenderness Integumentary: No rashes Neurological: Normal speech, Normal tone, Normal affect Lymphatics: No axilla or inguinal lymphadenopathy Laboratory Data at Discharge: WBC 9.1 K/uL (4.3-10.9) 08/07/18 05:29 Hgb 12.7 g/dL (13.6-17.9) L 08/07/18 05:29 Hct 36.9 % (39.6-49.0) L 08/07/18 05:29 Plt Count 177 K/uL (152-406) 08/07/18 05:29 PT 14.7 SECONDS (9.5-12.5) H 08/03/18 07:46 INR 1.24 08/03/18 07:46 Sodium 131 mmol/L (136-145) L 08/07/18 05:29 Potassium 3.6 mmol/L (3.5-5.1) 08/07/18 05:29 BUN 77 mg/dL (7-18) H D 08/07/18 05:29 Creatinine 9.10 mg/dL (0.55-1.3) H* D 08/07/18 05:29 Glucose 180 mg/dL (74-106) H 08/07/18 05:29 Phosphorus 6.6 mg/dL (2.5-4.9) H 08/06/18 05:00 Magnesium 2.6 mg/dL (1.8-2.4) H 08/06/18 05:00 Total Bilirubin 0.6 mg/dL (0.2-1.0) 08/07/18 05:29 AST 40 U/L (15-37) H 08/07/18 05:29 ALT 8 U/L (12-78) L 08/07/18 05:29 Alkaline Phosphatase 112 U/L (45-117) 08/07/18 05:29 Home Medications: Gabapentin [Neurontin*] 100 mg PO TID 12/31/12 Pravastatin [Pravachol*] 40 mg PO DAILY 12/31/12 Citalopram [Celexa*] 10 mg PO DAILY 04/15/16 Carbidopa/Levodopa [Carbidopa-Levo 25-100 mg Odt] 1 tab PO BID 09/12/16 Iron/FA/Vit B-Com W/C [Hemocyte Plus*] 1 cap PO DAILY 03/30/18 Pregabalin [Lyrica] 75 mg PO DAILY 05/25/18 Aspirin [Low Dose Aspirin EC] 81 mg PO DAILY 08/03/18 B Complex W-C No.20/Folic Acid [Virt-Caps Softgel] 1 cap PO DAILY 08/03/18 Cephalexin [Keflex] 500 mg PO Q12HR 08/03/18 Codeine/APAP [Tylenol W/Codeine #3 tab] 1 tab PO Q4HP PRN 08/03/18 Ergocalciferol (Vitamin D2) [Vitamin D2] 50,000 unit PO SEECOM 08/03/18 Midodrine HCl [Proamatine] 5 mg PO SEECOM 08/03/18 Sertraline HCl 50 mg PO DAILY 90 Days #90 tablet 08/07/18 New Medications: Sertraline HCl 50 mg PO DAILY 90 Days #90 tablet Diet: Renal Activity: Ad reji Physician Review: Patient Assessed, Agree with Above Assessment and Plan Time spent managing pt's care (in minutes): 40
[2018-08-07 15:12] VITALS: BP 131/63; TEMP 97.2
--- NOTE | 2018-08-07 19:11 | PN ---
Date of Progress Note: 08/07/2018 Subjective: The patient is doing well. Recommended wound care for outpatient treatment. Physical Examination: Vital Signs: Blood pressure of 146/65, pulse of 75. Chest: Clear to auscultation. Heart: S1, S2 regular. Abdomen: Soft, nontender. Extremities: Dressing on the right foot. Laboratory Data: H and H 12.7/36.9. Sodium 131, potassium 3.6, bicarb 26, BUN 77, creatinine 9.1, c alcium 8.4. Medications: Current medications the patient is on include: 1.Heparin. 2.Midodrine. 3.Aspirin. 4.Atorvastatin. 5.Plavix. 6.Sinemet. 7.Sertraline. 8.Lyrica. Assessment And Plan: 1.End-stage renal disease. We will continue the patient on dialysis. I already spoke with Dialysis . The patient will be able to be dialyzed as outpatient, so okay from our standpoint to be discharge d. Has chair time at 3 o'clock. 2.Hypertension, controlled, optimal. Continue current medication. 3.Secondary hyperparathyroidism. Continue current treatment. 4.Anemia. Continue BEAU. 5.Foot infection. Will follow up with Wound Care. HARISH Voice ID: [id number] Report ID: [id number]
== END 2018-08-07 12:56 | disposition home health service (06) ==
LOC: ER 07:05 → ERHOLD 10:34 → 2ND 15:17
PROVIDERS: ADMIT Family Medicine; ATTEND Family Medicine
DX: R53.1 Weakness (principal); I12.0 Hypertensive chronic kidney disease with stage 5 chronic kidney disease or end stage renal disease; E11.22 Type 2 diabetes mellitus with diabetic chronic kidney disease; N18.6 End stage renal disease; Z89.411 Acquired absence of right great toe; F32.9 Major depressive disorder, single episode, unspecified; G20 Parkinson's disease; E78.5 Hyperlipidemia, unspecified; E11.51 Type 2 diabetes mellitus with diabetic peripheral angiopathy without gangrene; D63.1 Anemia in chronic kidney disease
CPT/HCPCS: 36415 ×4; 71045; 73630; 80048; 80053 ×4; 80076; 82805; 82962 ×18; 83735 ×2; 83880; 83970; 84100 ×2; 84484; 85025 ×5; 85610; 86317; 86704; 86706; 87040 ×2; 87340; 90935 ×2; 93005; 94760 ×8; 97003; 97110; 97116; 97163; 97530 ×2; 99285; G0378 ×2; J1644

== ENCOUNTER 2018-08-17 11:34 | Emergency (ER) | payer OTHER ==
--- OUTSIDE RECORDS SUMMARY | 2018-08-17 11:37 | XMS REPORT | Clinical Summary ---
:1945 Author Organization [facility] Address [address] [place] [address] Care Team Providers Name Role Phone Sharpisamar [...] Malfunction of arteriovenous dialysis fistula, initial encounter ([facility]); 09/17/2017 Medicine Eulogio Harris, Essential hypertension; ESRD (end stage renal disease) on dialysis ([facility]); Gurmeet, Aps-brsnbrr-ikjyheiqt diabetes mellitus with neurological complications ([facility]); Kimberly Samuel, Other hyperlipidemia; Parkinson's disease ([facility]) Iliana Cowart MD after 08/16/2017 Family History Medical History Relation Name Comments [...] Taken Blood Pressure 120/64 09/17/2017 8:39 PM [facility] Pulse 92 09/17/2017 8:39 PM [employer] [facility] Temperature 36.6 C (97.8 F) 09/17/2017 8:39 PM [facility] [facility] Respiratory Rate 19 09/17/2017 8:39 PM [facility] [facility] Oxygen Saturation 94% 09/17/2017 8:39 PM [facility] [facility] Inhaled Oxygen Concentration - - Weight 80.9 kg (178 lb 4 oz) 09/17/2017 6:00 AM [facility] Height 170.2 cm (5' 7") 09/17/2017 6:00 AM [facility] [facility] Body Mass Index 27.92 09/17/2017 6:00 AM [facility] Plan of Treatment Not on file Procedures Procedure Name Priority Date/Time Associated Comments Diagnosis REPORT OF PROCEDURE - 09/19/2017 9:40 ENDOSCOPY SCAN AM [facility] RHYTHM STRIP - SCAN 09/19/2017 9:40 AM [facility] HEMODIALYSIS Routine 09/17/2017 7:54 Results for this INPATIENT PM [employer] procedure are in the results section. POCT-GLUCOSE METER Routine 09/17/2017 1:41 Results for this PM [employer] procedure are in the results section. IR Routine 09/17/2017 12:07 Results for this THROMOBOLYSIS/DECLOT PM [employer] [facility] procedure are in AV FISTULA/GRAFT the results section. POCT-GLUCOSE METER Routine 09/17/2017 6:46 Results for this AM [employer] procedure are in the results section. CBC W/PLT COUNT & Routine 09/17/2017 5:40 Results for this AUTO DIFFERENTIAL AM [facility] procedure are in the results section. HEMOGLOBIN A1C Routine 09/17/2017 5:40 Results for this AM [place] procedure are in the results section. CBC W/PLT COUNT & Routine 09/17/2017 5:40 Results for this AUTO DIFFERENTIAL AM [facility] [facility] procedure are in the results section. CALCIUM, IONIZED Routine 09/17/2017 5:40 Results for this AM [place] procedure are in the results section. MAGNESIUM Routine 09/17/2017 5:40 Results for this AM [place] procedure are in the results section. PHOSPHORUS Routine 09/17/2017 5:40 Results for this AM [employer] procedure are in the results section. BASIC METABOLIC PANEL Routine 09/17/2017 5:40 Results for this (7) AM [facility] [facility] procedure are in the results section. PROTHROMBIN TIME/INR Routine 09/17/2017 5:40 Results for this AM [facility] procedure are in the results section. HEPATITIS B SURFACE Routine 09/17/2017 5:40 Results for this ANTIGEN AM [facility] [facility] procedure are in the results section. POCT-GLUCOSE METER Routine 09/16/2017 10:15 Results for this PM [employer] procedure are in the results section. POCT-GLUCOSE METER Routine 09/16/2017 9:13 Results for this PM [employer] procedure are in the results section. POCT-GLUCOSE METER Routine 09/16/2017 5:26 Results for this PM [employer] procedure are in the results section. HEPATITIS B SURFACE Routine 09/16/2017 2:27 Results for this ANTIGEN PM [employer] procedure are in the results section. POCT-GLUCOSE METER Routine 09/16/2017 12:13 Results for this PM [employer] procedure are in the results section. IR NON-TUNNELED Routine 09/16/2017 11:19 Results for this DIALYSIS CATHETER AM [employer] procedure are in (CENTRAL the results LINE/VI) section. MAGNESIUM Routine 09/16/2017 8:26 Results for this AM [place] procedure are in the results section. PHOSPHORUS Routine 09/16/2017 8:26 Results for this AM [place] procedure are in the results section. BASIC METABOLIC PANEL Routine 09/16/2017 8:26 Results for this (7) [facility] [facility] procedure are in the results section. POCT-GLUCOSE METER Routine 09/16/2017 7:06 Results for this AM [place] procedure are in the results section. PROTHROMBIN TIME/INR Routine 09/16/2017 4:51 Results for this AM [place] procedure are in the results section. POCT-GLUCOSE METER Routine 09/15/2017 10:26 Results for this PM [employer] procedure are in the results section. after 08/16/2017 Results EKG-SCANNED (09/19/2017 9:40 AM [facility] [facility]) Narrative Performed At RHYTHM STRIP - SCAN (09/19/2017 9:40 AM [facility] [facility]) Narrative Performed At HEMODIALYSIS INPATIENT (09/17/2017 7:54 PM [employer] [facility]) Narrative Performed At Elan Valdez RN 09/17/20177:54 [...] Charles Franco POC-Glucose meter (09/17/2017 1:41 PM [employer])Only the most recent of8 resultswithin the time period is included. POC-Glucose Meter 76Comment: TESTED AT 70 - 110 mg/dL [place] [id number] [facility] [id number] Specimen Blood Performing Organization Address City/State/Zipcode Phone Number [address] [address] CENTER IR Thromobolysis/Declot AV Fistula/Graft (09/17/2017 12:07 PM [place]) Narrative Performed At FINAL REPORT [facility] History: End-stage renal disease, thrombosed left approximately [...] catheter for an Amplatz wire. A 7 Estonian sheath was placed at the access site. [...] MD Report Verified Date/Time:09/18/2017 14:11:58 Reading Location: [place] [address] Angio Body Reading Room Procedure Note Interface, External Ris In - 09/18/2017 2:14 PM [place] [place] FINAL REPORT History: End-stage renal disease, thrombosed [...] catheter for an Amplatz wire. A 7 Estonian sheath was placed at the access site. [...] Report Verified Date/Time: 09/18/2017 14:11:58 Reading Location: [place] [address] Angio Body Reading Room Performing Organization Address City/[facility] Phone Number GE RIS Calcium, Ionized (09/17/2017 5:40 AM [place]) Calcium, Ion 1.00 (L) 1.12 - 1.27 mmol/L [facility] pH, Blood 7.27 [facility] Specimen Blood - Arm, Right Performing Organization Address [facility]/Zipcode Phone Number [address] [address] [phone] CENTER CBC with platelet count + automated diff (09/17/2017 5:40 AM [place]) WBC 5.7 3.5 - 10.5 K/L [facility] RBC 3.78 (L) 4.63 - 6.08 M/L [facility] Hemoglobin 13.0 (L) 13.7 - 17.5 GM/DL [facility] Hematocrit 39.4 (L) 40.1 - 51.0 % [facility] MCV 104.2 (H) 79.0 - 92.2 fL [facility] MCH 34.4 (H) 25.7 - 32.2 pg [facility] MCHC 33.0 32.3 - 36.5 GM/DL [facility] RDW 14.1 11.6 - 14.4 % [facility] Platelets 82 (L) 150 - 450 K/CU MM [facility] MPV 13.3 (H) 9.4 - 12.4 fL [facility] nRBC 0 0 - 0 /100 WBC [facility] % Neutros 62 % [facility] % Lymphs 23 % [facility] % Monos 11 % [facility] % Eos 4 % [facility] % Baso 1 % [facility] # Neutros 3.53 1.78 - 5.38 K/L [facility] # Lymphs 1.30 (L) 1.32 - 3.57 K/L [facility] # Monos 0.62 0.30 - 0.82 K/L [facility] # Eos 0.22 0.04 - 0.54 K/L [facility] # Baso 0.03 0.01 - 0.08 K/L [facility] Immature 1 0 - 1 % [facility] Specimen Blood - Arm, Right Performing Organization Address City/[facility]/Zipcode Phone Number [address] [address] [phone] CENTER Hepatitis B surface antigen (09/17/2017 5:40 AM [place] [facility])Only the most recent of2 resultswithin the time period is included. hepatitis B Surface Ag NON-REACTIVE Nonreactive [facility] Specimen Blood - Arm, Right Narrative Performed At [facility] add to specimen drawn earlier. [facility] Performing Organization Address City/State/Zipcode Phone Number [address] [address] [phone] [place] Prothrombin time/INR (09/17/2017 5:40 AM [place] [facility])Only the most recent of2 resultswithin the time period is included. Protime 14.2 11.7 - 14.7 seconds [facility] INR 1.1 <=5.9 [facility] Specimen Blood - Arm, Right Narrative Performed At [facility] RECOMMENDED COUMADIN/WARFARIN INR THERAPY RANGES STANDARD DOSE: 2.0 - 3.0 Includes: PROPHYLAXIS for venous thrombosis, systemic embolization; TREATMENT for venous thrombosis and/or pulmonary embolus. HIGH RISK: Target INR is 2.5-3.5 for patients with mechanical heart valves. Performing Organization Address City/[facility] Centercode Phone Number [address] [address] CENTER Phosphorus (09/17/2017 5:40 AM [place] [facility])Only the most recent of2 resultswithin the time period is included. Phosphorus 6.0 (H) 2.3 - 4.7 mg/dL [facility] Specimen Blood - Arm, Right Performing Organization Address [facility] Phone Number [address] [address] CENTER Magnesium (09/17/2017 5:40 AM [place])Only the most recent of2 resultswithin the time period is included. Magnesium 2.3 1.6 - 2.6 mg/dL [facility] Specimen Blood - Arm, Right Performing Organization Address [facility] Phone Number [address] [address] CENTER Hemoglobin A1c (09/17/2017 5:40 AM [place]) Hemoglobin A1C 7.0 (H) 4.3 - 6.1 % [facility] Specimen Blood - Arm, Right Performing Organization Address [facility] Cent[facility]ode Phone Number [address] [address] CENTER Basic metabolic panel (09/17/2017 5:40 AM [place])Only the most recent of2 resultswithin the time period is included. Sodium 140 136 - 145 meq/L [facility] Potassium 5.0 3.5 - 5.1 meq/L [facility] Chloride 101 98 - 107 meq/L [facility] CO2 22 22 - 29 meq/L [facility] BUN 87 (H) 7 - 21 mg/dL [facility] Creatinine 10.99 (H) 0.57 - 1.25 mg/dL [facility] Glucose 87 70 - 105 mg/dL [facility] Calcium 7.8 (L) 8.4 - 10.2 mg/dL [facility] EGFR 5Comment: ESTIMATED GFR IS mL/min/1.73 sq m [facility] NOT ACCURATE CREATININE [facility] CENTER CLEARANCE IN PREDICTING GLOMERULAR FILTRATION RATE. ESTIMATED GFR IS NOT APPLICABLE FOR DIALYSIS PATIENTS. Specimen Blood - Arm, Right Performing Organization Address City/State/Zipcode Phone Number [facility] [address] [place] [address] CENTER IR Non-tunneled Catheter - Central Line/Vi Temporary (09/16/2017 11:19 AM [place]) Narrative Performed At FINAL REPORT [email or web address] Nontunneled dialysis catheter insertion, 09/16/2017. History: Left upper extremity AV fistula thrombosed. Modality: Fluoroscopy and sonography. Sedation: None. Freight Rate Analyst:Edgar Chandler MD. Public Information Officer:None. Approach: Right internal jugular vein Estimated blood [...] MD Report Verified Date/Time:09/16/2017 11:23:57 Reading Location: [place] [address] Angio Body Reading Room Procedure Note Interface, External Ris In - 09/16/2017 11:26 AM [place] FINAL REPORT Nontunneled dialysis catheter insertion, 09/16/2017. History: Left upper extremity AV fistula thrombosed. Modality: Fluoroscopy and sonography. Sedation: None. Freight Rate Analyst: Edgar Chandler MD. Public Information Officer: None. Approach: Right internal jugular vein Estimated [...] Report Verified Date/Time: 09/16/2017 11:23:57 Reading Location: [place] [address] Angio Body Reading Room Performing Organization Address City/State/Zipcoal Phone Number GE RIS after 08/16/2017 Insurance Payer Benefit Plan / Group Subscriber ID Type Phone Address CARE IMPROVEMENT MEDICARE CARE IMPROVEMENT PLUS xxxxxxxxx [facility] CARE MEDICAID [place] xxxxxxxxx Medicaid ([place]) [place] [address] Advance Directives For more information, please contact:[address] [phone] Code Status Date Activated Date Inactivated Comments Full Code 09/15/2017 11:54 PM 09/18/2017 7:40 AM This code status was determined by: Patient
--- OUTSIDE RECORDS SUMMARY | 2018-08-17 11:37 | XMS REPORT ---
:1945 [facility] Address [address] [place] [address] Care Team Providers Name Role Phone ANN [...] PATIENT A-V GRAFT 14:11:00 tunneled dialysis ID: [id number] catheterReason for History: End-stage exam:->Clotted fistula renal [...] catheter for an Amplatz wire. A 7 Portuguese sheath was placed at the access site. [...] Choi Verified Date/Time: 09/18/2017 14:11:58 Reading Location: [place] [address] Angio Body Reading Room -GLUCOSE METER 2017-09-17 13:43:00 Test Item Value Reference Range Comments POC-GLUCOSE METER (BEAKER) (test 76 mg/dL 70-110 TESTED AT [facility] [address] [facility] cpnf=5228) [facility] [address] HEMOGLOBIN [id number] 08:02:00 Test Item Value Reference Range Comments HEMOGLOBIN A1C (BEAKER) (test dvgw=166) 7.0 % 4.3-6.1 BASIC METABOLIC [id number] 07:34:00 Test Item Value Reference Range Comments SODIUM (BEAKER) (test 140 meq/L 136-145 ndio=503) POTASSIUM (BEAKER) (test 5.0 meq/L 3.5-5.1 soml=935) CHLORIDE (BEAKER) (test 101 meq/L 98-107 jxfu=676) CO2 (BEAKER) (test 22 meq/L 22-29 zqoq=450) BLOOD UREA NITROGEN 87 mg/dL 7-21 (BEAKER) (test bhrr=210) CREATININE (BEAKER) (test 10.99 mg/dL 0.57-1.25 zuwv=743) GLUCOSE RANDOM (BEAKER) 87 mg/dL 70-105 (test aqbq=086) CALCIUM (BEAKER) (test 7.8 mg/dL 8.4-10.2 llrh=460) EGFR (BEAKER) (test 5 mL/min/1.73 sq m ESTIMATED GFR IS NOT llsm=7632) ACCURATE CREATININE CLEARANCE IN PREDICTING GLOMERULAR FILTRATION RATE. ESTIMATED GFR IS NOT APPLICABLE FOR DIALYSIS PATIENTS. [id number] 07:28:00 Test Item Value Reference Range Comments PHOSPHORUS (BEAKER) (test lkqj=729) 6.0 mg/dL 2.3-4.7 [id number] 07:28:00 Test Item Value Reference Range Comments MAGNESIUM (BEAKER) (test vqoe=281) 2.3 mg/dL 1.6-2.6 CALCIUM, [id number] 07:18:00 Test Item Value Reference Range Comments CALCIUM IONIZED (BEAKER) (test zkxi=130) 1.00 mmol/L 1.12-1.27 PH, BLOOD (BEAKER) (test hrrx=9976) 7.27 HEPATITIS B SURFACE [id number] 07:11:00 Test Item Value Reference Range Comments HEPATITIS B SURFACE ANTIGEN (2) (BEAKER) (test Nonreactive Nonreactive xkzu=4139) Pls add to specimen drawn earlier.POCT-GLUCOSE [id number] 07:06:00 Test Item Value Reference Range Comments POC-GLUCOSE METER (BEAKER) 118 mg/dL 70-110 TESTED AT [facility] [address] [facility] (test cgsm=2963) [facility] [address] PROTHROMBIN [id number] 06:14:00 Test Item Value Reference Range Comments PROTIME (BEAKER) (test jrki=971) 14.2 seconds 11.7-14.7 INR (BEAKER) (test rbov=884) 1.1 <=5.9 RECOMMENDED COUMADIN/WARFARIN INR THERAPY RANGESSTANDARD DOSE: 2.0 - 3.0 Includes: PROPHYLAXIS forvenous thrombosis, systemic embolization; TREATMENT for venous thrombosis and/or pulmonary embolus.HIGH RISK: Target INR is 2.5-3.5 for patients with mechanical heart valves.CBC W/PLT COUNT & AUTO [id number] 06:04:00 Test Item Value Reference Range Comments WHITE BLOOD CELL COUNT (BEAKER) (test dquz=983) 5.7 K/ L 3.5-10.5 RED BLOOD CELL COUNT (BEAKER) (test qvbn=595) 3.78 M/ L 4.63-6.08 HEMOGLOBIN (BEAKER) (test ypvf=560) 13.0 GM/DL 13.7-17.5 HEMATOCRIT (BEAKER) (test dzmu=550) 39.4 % 40.1-51.0 MEAN CORPUSCULAR VOLUME (BEAKER) (test hkjv=839) 104.2 fL 79.0-92.2 MEAN CORPUSCULAR HEMOGLOBIN (BEAKER) (test 34.4 pg 25.7-32.2 kfyn=198) MEAN CORPUSCULAR HEMOGLOBIN CONC (BEAKER) (test 33.0 GM/DL 32.3-36.5 hdyh=148) RED CELL DISTRIBUTION WIDTH (BEAKER) (test 14.1 % 11.6-14.4 ufsh=616) PLATELET COUNT (BEAKER) (test hwvt=094) 82 K/CU MM 150-450 MEAN PLATELET VOLUME (BEAKER) (test swps=941) 13.3 fL 9.4-12.4 NUCLEATED RED BLOOD CELLS (BEAKER) (test 0 /100 WBC 0-0 ndea=931) NEUTROPHILS RELATIVE PERCENT (BEAKER) (test 62 % jyxd=698) LYMPHOCYTES RELATIVE PERCENT (BEAKER) (test 23 % yqni=442) MONOCYTES RELATIVE PERCENT (BEAKER) (test 11 % dqyf=476) EOSINOPHILS RELATIVE PERCENT (BEAKER) (test 4 % tnyh=867) BASOPHILS RELATIVE PERCENT (BEAKER) (test 1 % myth=765) NEUTROPHILS ABSOLUTE COUNT (BEAKER) (test 3.53 K/ L 1.78-5.38 mtxu=346) LYMPHOCYTES ABSOLUTE COUNT (BEAKER) (test 1.30 K/ L 1.32-3.57 ycwb=636) MONOCYTES ABSOLUTE COUNT (BEAKER) (test jukt=412) 0.62 K/ L 0.30-0.82 EOSINOPHILS ABSOLUTE COUNT (BEAKER) (test 0.22 K/ L 0.04-0.54 azte=487) BASOPHILS ABSOLUTE COUNT (BEAKER) (test frqj=457) 0.03 K/ L 0.01-0.08 IMMATURE GRANULOCYTES-RELATIVE PERCENT (BEAKER) 1 % 0-1 (test fiuv=3174) POCT-GLUCOSE [id number] 22:23:00 Test Item Value Reference Range Comments POC-GLUCOSE METER (BEAKER) 185 mg/dL 70-110 TESTED AT [place] [id number] [facility] (test aifh=5103) [place] [id number] POCT-GLUCOSE [id number] 21:27:00 Test Item Value Reference Range Comments POC-GLUCOSE METER (BEAKER) 198 mg/dL 70-110 TESTED AT [address] (test wrbg=5818) [place] [id number] POCT-GLUCOSE [id number] 17:43:00 Test Item Value Reference Range Comments POC-GLUCOSE METER (BEAKER) 164 mg/dL 70-110 TESTED AT [address] (test tltg=2186) [place] [id number] HEPATITIS B SURFACE [id number] 15:14:00 Test Item Value Reference Range Comments HEPATITIS B SURFACE ANTIGEN (2) (BEAKER) (test Nonreactive Nonreactive obqz=8318) Pls add to specimen drawn earlier.BASIC METABOLIC [id number] 13:34:00 Test Item Value Reference Range Comments SODIUM (BEAKER) (test 140 meq/L 136-145 ipsh=930) POTASSIUM (BEAKER) (test 5.4 meq/L 3.5-5.1 tsml=585) CHLORIDE (BEAKER) (test 101 meq/L 98-107 rcnt=909) CO2 (BEAKER) (test 19 meq/L 22-29 apwh=815) BLOOD UREA NITROGEN 123 mg/dL 7-21 (BEAKER) (test gyal=793) CREATININE (BEAKER) (test 12.96 mg/dL 0.57-1.25 loij=892) GLUCOSE RANDOM (BEAKER) 79 mg/dL 70-105 (test ieft=195) CALCIUM (BEAKER) (test 7.9 mg/dL 8.4-10.2 rgul=375) EGFR (BEAKER) (test 4 mL/min/1.73 sq m ESTIMATED GFR IS NOT kvmc=7090) ACCURATE CREATININE CLEARANCE IN PREDICTING GLOMERULAR FILTRATION RATE. ESTIMATED GFR IS NOT APPLICABLE FOR DIALYSIS PATIENTS. [id number] 13:24:00 Test Item Value Reference Range Comments MAGNESIUM (BEAKER) (test pmyr=602) 2.3 mg/dL 1.6-2.6 [id number] 13:24:00 Test Item Value Reference Range Comments PHOSPHORUS (BEAKER) (test npsd=654) 6.2 mg/dL 2.3-4.7 POCT-GLUCOSE [id number] 12:20:00 Test Item Value Reference Range Comments POC-GLUCOSE METER (BEAKER) 84 mg/dL 70-110 TESTED AT [facility] [address] [facility] (test ecko=2597) [facility] [address] ANG, NON-TUNNELED CATH >5 Y.O. [id number] 11:23:00Reason for exam:-> please declot the AV fistula, if unable to do that he needs catheter exchangeFINAL REPORT Nontunneled dialysis catheter insertion, 09/16/2017. History: Left upper extremity AV fistula thrombosed. Modality: Fluoroscopy and sonography. Sedation: None. Cable Spooler: Edgar Chandler MD. Egg Tester: None. Approach: Right internal jugular vein Estimated [...] MDReport Verified Date/Time: 2017 11:23:57 Reading Location: [place] [address] AngioBody Reading Room POCT- GLUCOSE [id number] 07:38:00 Test Item Value Reference Range Comments POC-GLUCOSE METER (BEAKER) 89 mg/dL 70-110 TESTED AT [address] (test xgdk=6230) [place] [id number] PROTHROMBIN [id number] 05:19:00 Test Item Value Reference Range Comments PROTIME (BEAKER) (test iiku=588) 14.8 seconds 11.7-14.7 INR (BEAKER) (test rvvk=188) 1.2 <=5.9 RECOMMENDED COUMADIN/WARFARIN INR THERAPY RANGESSTANDARD DOSE: 2.0 - 3.0 Includes: PROPHYLAXIS forvenous thrombosis, systemic embolization; TREATMENT for venous thrombosis and/or pulmonary embolus.HIGH RISK: Target INR is 2.5-3.5 for patients with mechanical heart valves.POCT-GLUCOSE [id number] 23:26:00 Test Item Value Reference Range Comments POC-GLUCOSE METER (BEAKER) 261 mg/dL 70-110 TESTED AT [facility] [employer] [facility] (test xsdp=6161) [place] [id number]
--- NOTE | 2018-08-17 12:42 | RAD REPORT ---
EXAM DESCRIPTION: RAD - Abdomen 1 View (KUB) - 08/17/2018 12:15 pm CLINICAL HISTORY: Abdomen pain. FINDINGS: The bowel gas pattern is unremarkable. A large amount of stool is present throughout the colon. Vascular calcifications are seen
--- NOTE | 2018-08-17 14:23 | ER ---
Nurse's Notes [facility] Name: Nadir Mendez Age: 73 yrs Sex: Male : 1945 Arrival Date: 08/17/2018 Time: 11:37 Bed 16 Private MD: Ganesh Bauman Diagnosis: Constipation Presentation: 08/17 11:49 Presenting complaint: Child states: constipation for weeks and had HD today, they sv stated that his fecal matter was hard and he had streaked blood in the bowel. c/o abd pain. Transition of care: patient was not received from another setting of care. Onset of symptoms was July 2018. Care prior to arrival: None. 11:49 Method Of Arrival: Wheelchair sv 11:49 Acuity: ASTER 3 sv 12:00 Risk Assessment: Do you want to hurt yourself or someone else? Patient reports no bp desire to harm self or others. Initial Sepsis Screen: Does the patient meet any 2 criteria? No. Patient's initial sepsis screen is negative. Does the patient have a suspected source of infection? No. Patient's initial sepsis screen is negative. Triage Assessment: 11:49 General: Appears uncomfortable, Behavior is calm, cooperative. Pain: Complains of pain sv in abdomen. Neuro: Level of Consciousness is awake, alert, obeys commands, Oriented to person, place, time, situation, Moves all extremities. Respiratory: Respiratory effort is even, unlabored, Respiratory pattern is regular, symmetrical. GI: Reports constipation. Historical: - Allergies: 11:51 No Known Allergies; sv - PMHx: 11:51 Diabetes - NIDDM; Dialysis; Hyperlipidemia; Hypertension; Renal Disease; Tues, Thurs, sv Sat; Ulcers; - Immunization history:: Adult Immunizations up to date. - Social history:: Smoking status: Patient/guardian denies using tobacco. - Ebola Screening: : No symptoms or risks identified at this time. Screenin:01 Abuse screen: Denies threats or abuse. Denies injuries from another. Nutritional bp screening: No deficits noted. Tuberculosis screening: No symptoms or risk factors identified. Fall Risk No fall in past 12 months (0 pts). No secondary diagnosis (0 pts). No IV (0 pts). Ambulatory Aid- None/Bed Rest/Nurse Assist (0 pts). Gait- Normal/Bed Rest/Wheelchair (0 pts) Mental Status- Oriented to own ability (0 pts). Total Granados Fall Scale indicates No Risk (0-24 pts). Assessment: 12:00 General: Appears in no apparent distress. comfortable, Behavior is calm, cooperative, bp appropriate for age. Pain: Complains of pain in buttocks. Neuro: Level of Consciousness is awake, alert, obeys commands, Oriented to person, place, time, situation, Appropriate for age. Respiratory: Airway is patent Respiratory effort is even, unlabored, Respiratory pattern is regular, symmetrical. GI: Bowel sounds diminished in abdomen diffusely Abd is soft X 4 quads. : No signs and/or symptoms were reported regarding the genitourinary system. EENT: No deficits noted. Musculoskeletal: Circulation, motion, and sensation intact. Range of motion: intact in all extremities. 13:30 Reassessment: ALL CURRENT ORDERS COMPLETE, DIGITAL RECTAL EXAM BY PROVIDER PENDING. bp 14:54 Reassessment: PT D/C HOME VIA W/C WITH FAMILY, DX WITH CONSTIPATION. bp Vital Signs: 11:50 BP 127 / 69; Pulse 89; Resp 16; Temp 98.5; Pulse Ox 98% ; Height 5 ft. 6 in. (167.64 sv cm); 13:30 BP 131 / 71; Pulse 79; Resp 16; Pulse Ox 98% ; bp 14:52 BP 129 / 65; Pulse 85; Resp 14; Pulse Ox 97% ; bp ED Course: 11:37 Patient arrived in ED. dl4 11:37 Ganesh Bauman MD is Private Physician. dl4 11:50 Triage completed. sv 11:51 Arm band placed on. sv 11:52 Aba Romeo, TAMERA is Primary Nurse. bp 11:58 Tony Lawrence NP is PHCP. pm1 11:58 Mahendra Hoover MD is Attending Physician. pm1 12:01 Warm blanket given. Pillow given. sv 12:03 Patient has correct armband on for positive identification. Bed in low position. Call bp light in reach. Side rails up X2. Adult w/ patient. 12:14 X-ray completed. Portable x-ray completed in exam room. Patient tolerated procedure la2 well. 12:16 Abdomen 1 View (KUB) XRAY In Process Unspecified. EDMS 14:21 Ganesh Bauman MD is Referral Physician. pm1 14:53 No provider procedures requiring assistance completed. Patient did not have IV access bp during this emergency room visit. Administered Medications: No medications were administered Outcome: 14:22 Discharge ordered by . pm1 14:54 Discharged to home via wheelchair, with family. bp 14:54 Condition: stable 14:54 Discharge instructions given to patient, family, Instructed on discharge instructions, follow up and referral plans. Demonstrated understanding of instructions, follow-up care. 14:55 Patient left the ED. bp Signatures: Dispatcher [employer] EDJennifer Molina, RN RN Tony Rivera, SHELBY REPRODUCTION ARTIST pm1 Drea Phipps la2 Aba Romeo, TAMERA RN Fernando Rivera dl4
--- NOTE | 2018-08-17 14:23 | EDPHYS ---
Physician Documentation [facility] Name: Nadir Mendez Age: 73 yrs Sex: Male : 1945 Arrival Date: 08/17/2018 Time: 11:37 Bed 16 Private MD: Ganesh Bauman ED Physician Mahendra Hoover HPI: 08/17 13:00 This 73 yrs old Male presents to ER via Wheelchair with complaints of pm1 Constipation. 13:00 The patient presents with Constipation. Onset: The symptoms/episode began/occurred pm1 ongoing for multiple months. 13:00 Associated signs and symptoms: Pertinent positives: constipation, Pertinent negatives: pm1 nausea, vomiting, and diarrhea, chest pain, fever, shortness of breath. Modifying factors: The symptoms are alleviated by Fleet's enema. The patient has experienced similar episodes in the past, chronically. Patient with dialysis treatment today, completed treatment. Patient with chronic constipation and has taken Miralax once this week and had a fleet's enema by home health nurse a few days ago. Patient is able to have bowel movements daily but they are hard small jocelyn. . 13:00 Family brought patient to the ER due to blood present in his underwear. Patient denies pm1 any abdominal pain. Reports pain in the anal area. 13:00 Patient no longer urinates. pm1 Historical: - Allergies: 11:51 No Known Allergies; sv - PMHx: 11:51 Diabetes - NIDDM; Dialysis; Hyperlipidemia; Hypertension; Renal Disease; Tues, Thurs, sv Sat; Ulcers; - Immunization history:: Adult Immunizations up to date. - Social history:: Smoking status: Patient/guardian denies using tobacco. - Ebola Screening: : No symptoms or risks identified at this time. ROS: 13:00 Constitutional: Negative for fever, chills, and weight loss, Eyes: Negative for injury, pm1 pain, redness, and discharge, ENT: Negative for injury, pain, and discharge, Neck: Negative for injury, pain, and swelling, Cardiovascular: Negative for chest pain, palpitations, and edema, Respiratory: Negative for shortness of breath, cough, wheezing, and pleuritic chest pain. 13:00 Back: Negative for injury and pain, : Negative for injury, bleeding, discharge, and swelling, MS/Extremity: Negative for injury and deformity, Skin: Negative for injury, rash, and discoloration, Neuro: Negative for headache, weakness, numbness, tingling, and seizure. 13:00 Abdomen/GI: Positive for constipation, Negative for abdominal pain, nausea, vomiting, and diarrhea. Exam: 13:00 Constitutional: This is a well developed, well nourished patient who is awake, alert, pm1 and in no acute distress. Head/Face: Normocephalic, atraumatic. Eyes: Pupils equal round and reactive to light, extra-ocular motions intact. Lids and lashes normal. Conjunctiva and sclera are non-icteric and not injected. Cornea within normal limits. Periorbital areas with no swelling, redness, or edema. ENT: Nares patent. No nasal discharge, no septal abnormalities noted. Tympanic membranes are normal and external auditory canals are clear. Oropharynx with no redness, swelling, or masses, exudates, or evidence of obstruction, uvula midline. Mucous membranes moist. Neck: Trachea midline, no thyromegaly or masses palpated, and no cervical lymphadenopathy. Supple, full range of motion without nuchal rigidity, or vertebral point tenderness. No Meningismus. Chest/axilla: Normal chest wall appearance and motion. Nontender with no deformity. No lesions are appreciated. Cardiovascular: Regular rate and rhythm with a normal S1 and S2. No gallops, murmurs, or rubs. Normal PMI, no JVD. No pulse deficits. Respiratory: Lungs have equal breath sounds bilaterally, clear to auscultation and percussion. No rales, rhonchi or wheezes noted. No increased work of breathing, no retractions or nasal flaring. Abdomen/GI: Soft, non-tender, with normal bowel sounds. No distension or tympany. No guarding or rebound. No evidence of tenderness throughout. Back: No spinal tenderness. No costovertebral tenderness. Full range of motion. Skin: Warm, dry with normal turgor. Normal color with no rashes, no lesions, and no evidence of cellulitis. MS/ Extremity: Pulses equal, no cyanosis. Neurovascular intact. Full, normal range of motion. 13:00 Neuro: Orientation: is normal, Motor: is normal, moves all fours. 14:00 Abdomen/GI: Rectal exam: rectal tone normal, Stool: guaiac negative, mass, is not pm1 appreciated, tenderness, stool present at anus. No blood present on stool. Negative stool guaiac. Trace amount of blood present on underwear from 1 cm diameter stage 2 decubitus on left buttocks. Vital Signs: 11:50 BP 127 / 69; Pulse 89; Resp 16; Temp 98.5; Pulse Ox 98% ; Height 5 ft. 6 in. (167.64 sv cm); 13:30 BP 131 / 71; Pulse 79; Resp 16; Pulse Ox 98% ; bp 14:52 BP 129 / 65; Pulse 85; Resp 14; Pulse Ox 97% ; bp MDM: 11:58 Patient medically screened. pm1 13:00 Data reviewed: vital signs. Data interpreted: Pulse oximetry: on room air is 98 %. pm1 Interpretation: normal. 14:00 ED course: Patient has used Miralax this week with positive bowel movement. Home health pm1 has used fleets enema at home for the patient this week. 14:00 ED course: Recommended continuation of Miralax and fleets enema as needed. pm1 14:20 Counseling: I had a detailed discussion with the patient and/or guardian regarding: the pm1 historical points, exam findings, and any diagnostic results supporting the discharge/admit diagnosis, radiology results, the need for outpatient follow up, to return to the emergency department if symptoms worsen or persist or if there are any questions or concerns that arise at home. 08/17 12:04 Order name: Abdomen 1 View (KUB) XRAY; Complete Time: 12:49 pm1 Administered Medications: No medications were administered Disposition: 08/17/18 14:22 Discharged to Home. Impression: Constipation. - Condition is Stable. - Discharge Instructions: Constipation, Adult, Preventing Pressure Injuries, Pressure Injury. - Medication Reconciliation Form, Thank You Letter form. - Follow up: Emergency Department; When: As needed; Reason: Worsening of condition. Follow up: Ganesh Bauman MD; When: 2 - 3 days; Reason: Recheck today's complaints, Continuance of care, Re-evaluation by your physician. - Problem is new. - Symptoms have improved. Addendum: 08/19/2018 06:22 Co-signature as Attending Physician, Mahendra Hoover MD I agree with the assessment and c guardado plan of care. Signatures: Dispatcher [employer] EDJennifer Molina RN RN sv Mahendra Hoover MD MD cha Marinas, Patrick, TAXATION INSPECTOR TAXATION INSPECTOR pm1 Aba Romeo RN RN bp Corrections: (The following items were deleted from the chart) 08/17 14:23 14:22 08/17/2018 14:22 Discharged to Home. Impression: Constipation; Pressure ulcer of pm1 left buttock, stage 2. Condition is Stable. Forms are Medication Reconciliation Form, Thank You Letter, Antibiotic Education, Prescription Opioid Use. Follow up: Emergency Department; When: As needed; Reason: Worsening of condition. Follow up: Ganesh Bauman; When: 2 - 3 days; Reason: Recheck today's complaints, Continuance of care, Re-evaluation by your physician. Problem is new. Symptoms have improved. pm1 14:25 14:23 08/17/2018 14:22 Discharged to Home. Impression: Constipation. Condition is pm1 Stable. Forms are Medication Reconciliation Form, Thank You Letter, Antibiotic Education, Prescription Opioid Use. Follow up: Emergency Department; When: As needed; Reason: Worsening of condition. Follow up: Ganesh Bauman; When: 2 - 3 days; Reason: Recheck today's complaints, Continuance of care, Re-evaluation by your physician. Problem is new. Symptoms have improved. pm1 14:55 14:25 08/17/2018 14:22 Discharged to Home. Impression: Constipation. Condition is bp Stable. Discharge Instructions: Constipation, Adult, Preventing Pressure Injuries, Pressure Injury. Forms are Medication Reconciliation Form, Thank You Letter. Follow up: Emergency Department; When: As needed; Reason: Worsening of condition. Follow up: Ganesh Bauman; When: 2 - 3 days; Reason: Recheck today's complaints, Continuance of care, Re-evaluation by your physician. Problem is new. Symptoms have improved. pm1
[2018-08-17 15:03] VITALS: TEMP 98.5
[2018-08-17 15:06] VITALS: BP 129/65; O2SAT 97
== END 2018-08-17 14:55 | disposition home or self-care (01) ==
LOC: ER 11:34
DX: K59.00 Constipation, unspecified (principal); E11.22 Type 2 diabetes mellitus with diabetic chronic kidney disease; I12.9 Hypertensive chronic kidney disease with stage 1 through stage 4 chronic kidney disease, or unspecified chronic kidney disease; N18.9 Chronic kidney disease, unspecified; Z99.2 Dependence on renal dialysis
CPT/HCPCS: 74018; 99283

== ENCOUNTER 2018-08-20 06:54 | Inpatient (IN) | payer OTHER ==
--- OUTSIDE RECORDS SUMMARY | 2018-08-20 06:56 | XMS REPORT | Clinical Summary ---
:1945 Author Organization [facility] Address [address] [place] [address] Care Team Providers Name Role Phone Sharpisamar [...] Malfunction of arteriovenous dialysis fistula, initial encounter ([facility]); 09/17/2017 Medicine Eulogio Harris, Essential hypertension; ESRD (end stage renal disease) on dialysis ([facility]); Gurmeet, Rac-rhfondp-ufgugquwz diabetes mellitus with neurological complications ([facility]); Kimberly Samuel, Other hyperlipidemia; Parkinson's disease ([facility]) Iliana Cowart MD after 08/19/2017 Family History Medical History Relation Name Comments [...] Taken Blood Pressure 120/64 09/17/2017 8:39 PM VISUAL PRESENTATION MANAGER Pulse 92 09/17/2017 8:39 PM VISUAL PRESENTATION MANAGER Temperature 36.6 C (97.8 F) 09/17/2017 8:39 PM VISUAL PRESENTATION MANAGER Respiratory Rate 19 09/17/2017 8:39 PM VISUAL PRESENTATION MANAGER Oxygen Saturation 94% 09/17/2017 8:39 PM VISUAL PRESENTATION MANAGER Inhaled Oxygen Concentration - - Weight 80.9 kg (178 lb 4 oz) 09/17/2017 6:00 AM VISUAL PRESENTATION MANAGER Height 170.2 cm (5' 7") 09/17/2017 6:00 AM VISUAL PRESENTATION MANAGER Body Mass Index 27.92 09/17/2017 6:00 AM VISUAL PRESENTATION MANAGER Plan of Treatment Not on file Procedures Procedure Name Priority Date/Time Associated Comments Diagnosis REPORT OF PROCEDURE - 09/19/2017 9:40 ENDOSCOPY SCAN AM VISUAL PRESENTATION MANAGER RHYTHM STRIP - SCAN 09/19/2017 9:40 AM VISUAL PRESENTATION MANAGER HEMODIALYSIS Routine 09/17/2017 7:54 Results for this INPATIENT PM VISUAL PRESENTATION MANAGER procedure are in the results section. POCT-GLUCOSE METER Routine 09/17/2017 1:41 Results for this PM VISUAL PRESENTATION MANAGER procedure are in the results section. IR Routine 09/17/2017 12:07 Results for this THROMOBOLYSIS/DECLOT PM VISUAL PRESENTATION MANAGER procedure are in AV FISTULA/GRAFT the results section. POCT-GLUCOSE METER Routine 09/17/2017 6:46 Results for this AM VISUAL PRESENTATION MANAGER procedure are in the results section. CBC W/PLT COUNT & Routine 09/17/2017 5:40 Results for this AUTO DIFFERENTIAL AM VISUAL PRESENTATION MANAGER procedure are in the results section. HEMOGLOBIN A1C Routine 09/17/2017 5:40 Results for this AM VISUAL PRESENTATION MANAGER procedure are in the results section. CBC W/PLT COUNT & Routine 09/17/2017 5:40 Results for this AUTO DIFFERENTIAL AM VISUAL PRESENTATION MANAGER procedure are in the results section. CALCIUM, IONIZED Routine 09/17/2017 5:40 Results for this AM VISUAL PRESENTATION MANAGER procedure are in the results section. MAGNESIUM Routine 09/17/2017 5:40 Results for this AM VISUAL PRESENTATION MANAGER procedure are in the results section. PHOSPHORUS Routine 09/17/2017 5:40 Results for this AM VISUAL PRESENTATION MANAGER procedure are in the results section. BASIC METABOLIC PANEL Routine 09/17/2017 5:40 Results for this (7) AM VISUAL PRESENTATION MANAGER procedure are in the results section. PROTHROMBIN TIME/INR Routine 09/17/2017 5:40 Results for this AM VISUAL PRESENTATION MANAGER procedure are in the results section. HEPATITIS B SURFACE Routine 09/17/2017 5:40 Results for this ANTIGEN AM VISUAL PRESENTATION MANAGER procedure are in the results section. POCT-GLUCOSE METER Routine 09/16/2017 10:15 Results for this PM VISUAL PRESENTATION MANAGER procedure are in the results section. POCT-GLUCOSE METER Routine 09/16/2017 9:13 Results for this PM VISUAL PRESENTATION MANAGER procedure are in the results section. POCT-GLUCOSE METER Routine 09/16/2017 5:26 Results for this PM VISUAL PRESENTATION MANAGER procedure are in the results section. HEPATITIS B SURFACE Routine 09/16/2017 2:27 Results for this ANTIGEN PM VISUAL PRESENTATION MANAGER procedure are in the results section. POCT-GLUCOSE METER Routine 09/16/2017 12:13 Results for this PM VISUAL PRESENTATION MANAGER procedure are in the results section. IR NON-TUNNELED Routine 09/16/2017 11:19 Results for this DIALYSIS CATHETER AM VISUAL PRESENTATION MANAGER procedure are in (CENTRAL the results LINE/VI) section. MAGNESIUM Routine 09/16/2017 8:26 Results for this AM VISUAL PRESENTATION MANAGER procedure are in the results section. PHOSPHORUS Routine 09/16/2017 8:26 Results for this AM VISUAL PRESENTATION MANAGER procedure are in the results section. BASIC METABOLIC PANEL Routine 09/16/2017 8:26 Results for this (7) AM VISUAL PRESENTATION MANAGER procedure are in the results section. POCT-GLUCOSE METER Routine 09/16/2017 7:06 Results for this AM VISUAL PRESENTATION MANAGER procedure are in the results section. PROTHROMBIN TIME/INR Routine 09/16/2017 4:51 Results for this AM VISUAL PRESENTATION MANAGER procedure are in the results section. POCT-GLUCOSE METER Routine 09/15/2017 10:26 Results for this PM VISUAL PRESENTATION MANAGER procedure are in the results section. after 08/19/2017 Results EKG-SCANNED (09/19/2017 9:40 AM VISUAL PRESENTATION MANAGER) Narrative Performed At RHYTHM STRIP - SCAN (09/19/2017 9:40 AM VISUAL PRESENTATION MANAGER) Narrative Performed At HEMODIALYSIS INPATIENT (09/17/2017 7:54 PM VISUAL PRESENTATION MANAGER) Narrative Performed At Elan Valdez RN 09/17/20177:54 [...] Charles Franco POC-Glucose meter (09/17/2017 1:41 PM VISUAL PRESENTATION MANAGER)Only the most recent of8 resultswithin the time period is included. POC-Glucose Meter 76Comment: TESTED AT 70 - 110 mg/dL [place] [id number] [facility] [address] Specimen Blood Performing Organization Address City/State/Zipcode Phone Number [address] [address] CENTER IR Thromobolysis/Declot AV Fistula/Graft (09/17/2017 12:07 PM VISUAL PRESENTATION MANAGER) Narrative Performed At FINAL REPORT [facility] History: End-stage renal disease, thrombosed left approximately [...] catheter for an Amplatz wire. A 7 Luxembourgish sheath was placed at the access site. [...] MD Report Verified Date/Time:09/18/2017 14:11:58 Reading Location: [place] [address] Angio Body Reading Room Procedure Note Interface, External Ris In - 09/18/2017 2:14 PM VISUAL PRESENTATION MANAGER FINAL REPORT History: End-stage renal disease, thrombosed [...] catheter for an Amplatz wire. A 7 Luxembourgish sheath was placed at the access site. [...] Report Verified Date/Time: 09/18/2017 14:11:58 Reading Location: [place] [address] Angio Body Reading Room Performing Organization Address City/[facility] Phone Number GE RIS Calcium, Ionized (09/17/2017 5:40 AM VISUAL PRESENTATION MANAGER) Calcium, Ion 1.00 (L) 1.12 - 1.27 mmol/L [facility] pH, Blood 7.27 [facility] Specimen Blood - Arm, Right Performing Organization Address [facility]/Zipcode Phone Number [address] [address] CENTER CBC with platelet count + automated diff (09/17/2017 5:40 AM VISUAL PRESENTATION MANAGER) WBC 5.7 3.5 - 10.5 K/L [facility] RBC 3.78 (L) 4.63 - 6.08 M/L [facility] Hemoglobin 13.0 (L) 13.7 - 17.5 GM/DL [facility] Hematocrit 39.4 (L) 40.1 - 51.0 % [facility] MCV 104.2 (H) 79.0 - 92.2 fL [facility] MCH 34.4 (H) 25.7 - 32.2 pg [facility] MCHC 33.0 32.3 - 36.5 GM/DL [facility] RDW 14.1 11.6 - 14.4 % [facility] Platelets 82 (L) 150 - 450 K/CU MM [facility] MPV 13.3 (H) 9.4 - 12.4 fL [facility] nRBC 0 0 - 0 /100 WBC [facility] % Neutros 62 % [facility] % Lymphs 23 % [facility] % Monos 11 % [facility] % Eos 4 % [facility] % Baso 1 % [facility] # Neutros 3.53 1.78 - 5.38 K/L [facility] # Lymphs 1.30 (L) 1.32 - 3.57 K/L [facility] # Monos 0.62 0.30 - 0.82 K/L [facility] # Eos 0.22 0.04 - 0.54 K/L [facility] # Baso 0.03 0.01 - 0.08 K/L [facility] Immature 1 0 - 1 % [facility] Specimen Blood - Arm, Right Performing Organization Address City/[facility]/Zipcode Phone Number [address] [address] [phone] CENTER Hepatitis B surface antigen (09/17/2017 5:40 AM VISUAL PRESENTATION MANAGER)Only the most recent of2 resultswithin the time period is included. hepatitis B Surface Ag NON-REACTIVE Nonreactive [facility] Specimen Blood - Arm, Right Narrative Performed At [facility] add to specimen drawn earlier. [facility] Performing Organization Address City/State/Zipcode Phone Number [address] [address] [phone] [place] Prothrombin time/INR (09/17/2017 5:40 AM VISUAL PRESENTATION MANAGER)Only the most recent of2 resultswithin the time period is included. Protime 14.2 11.7 - 14.7 seconds [facility] INR 1.1 <=5.9 [facility] Specimen Blood - Arm, Right Narrative Performed At [facility] RECOMMENDED COUMADIN/WARFARIN INR THERAPY RANGES STANDARD DOSE: 2.0 - 3.0 Includes: PROPHYLAXIS for venous thrombosis, systemic embolization; TREATMENT for venous thrombosis and/or pulmonary embolus. HIGH RISK: Target INR is 2.5-3.5 for patients with mechanical heart valves. Performing Organization Address City/[facility] Centercode Phone Number [address] [address] [phone] CENTER Phosphorus (09/17/2017 5:40 AM VISUAL PRESENTATION MANAGER)Only the most recent of2 resultswithin the time period is included. Phosphorus 6.0 (H) 2.3 - 4.7 mg/dL [facility] Specimen Blood - Arm, Right Performing Organization Address [facility] Phone Number [address] [address] CENTER Magnesium (09/17/2017 5:40 AM VISUAL PRESENTATION MANAGER)Only the most recent of2 resultswithin the time period is included. Magnesium 2.3 1.6 - 2.6 mg/dL [facility] Specimen Blood - Arm, Right Performing Organization Address [facility] Phone Number [address] [address] CENTER Hemoglobin A1c (09/17/2017 5:40 AM VISUAL PRESENTATION MANAGER) Hemoglobin A1C 7.0 (H) 4.3 - 6.1 % [facility] Specimen Blood - Arm, Right Performing Organization Address [facility] Centercode Phone Number [address] [address] [phone] CENTER Basic metabolic panel (09/17/2017 5:40 AM VISUAL PRESENTATION MANAGER)Only the most recent of2 resultswithin the time period is included. Sodium 140 136 - 145 meq/L [facility] Potassium 5.0 3.5 - 5.1 meq/L [facility] Chloride 101 98 - 107 meq/L [facility] CO2 22 22 - 29 meq/L [facility] BUN 87 (H) 7 - 21 mg/dL [facility] Creatinine 10.99 (H) 0.57 - 1.25 mg/dL [facility] Glucose 87 70 - 105 mg/dL [facility] Calcium 7.8 (L) 8.4 - 10.2 mg/dL [facility] EGFR 5Comment: ESTIMATED GFR IS mL/min/1.73 sq m [facility] NOT ACCURATE CREATININE [facility] CENTER CLEARANCE IN PREDICTING GLOMERULAR FILTRATION RATE. ESTIMATED GFR IS NOT APPLICABLE FOR DIALYSIS PATIENTS. Specimen Blood - Arm, Right Performing Organization Address City/State/Zipcode Phone Number [facility] [address] [place] [address] CENTER IR Non-tunneled Catheter - Central Line/Vi Temporary (09/16/2017 11:19 AM VISUAL PRESENTATION MANAGER) Narrative Performed At FINAL REPORT [employer] Nontunneled dialysis catheter insertion, 09/16/2017. History: Left upper extremity AV fistula thrombosed. Modality: Fluoroscopy and sonography. Sedation: None. Nutritional Yeast Supervisor:Edgar Chandler MD. Shake Loader:None. Approach: Right internal jugular vein Estimated blood [...] MD Report Verified Date/Time:09/16/2017 11:23:57 Reading Location: [place] [address] Angio Body Reading Room Procedure Note Interface, External Ris In - 09/16/2017 11:26 AM VISUAL PRESENTATION MANAGER FINAL REPORT Nontunneled dialysis catheter insertion, 09/16/2017. History: Left upper extremity AV fistula thrombosed. Modality: Fluoroscopy and sonography. Sedation: None. Nutritional Yeast Supervisor: Edgar Chandler MD. Shake Loader: None. Approach: Right internal jugular vein [...] Report Verified Date/Time: 09/16/2017 11:23:57 Reading Location: [place] [address] Angio Body Reading Room Performing Organization Address City/State/Zipcoga Phone Number GE RIS after 08/19/2017 Insurance Payer Benefit Plan / Group Subscriber ID Type Phone Address CARE IMPROVEMENT MEDICARE CARE IMPROVEMENT PLUS xxxxxxxxx [facility] CARE MEDICAID [place]ICA[place] xxxxxxxxx Medicaid ([place]) [place] [address] Advance Directives For more information, please contact:[address] [phone] Code Status Date Activated Date Inactivated Comments Full Code 09/15/2017 11:54 PM 09/18/2017 7:40 AM This code status was determined by: Patient
--- OUTSIDE RECORDS SUMMARY | 2018-08-20 06:57 | XMS REPORT ---
:1945 Author Organization [facility] Address [address] [place] [address] Care Team Providers Name Role Phone ANN [...] PATIENT A-V GRAFT 14:11:00 tunneled dialysis ID: [id number] catheterReason for History: End-stage exam:->Clotted fistula renal [...] catheter for an Amplatz wire. A 7 Namibian sheath was placed at the access site. [...] Choi Verified Date/Time: 09/18/2017 14:11:58 Reading Location: [place] [address] Angio Body Reading Room -GLUCOSE METER 2017-09-17 13:43:00 Test Item Value Reference Range Comments POC-GLUCOSE METER (BEAKER) (test 76 mg/dL 70-[address] [facility] [address] [facility] ytqo=3273) [facility] [address] HEMOGLOBIN [id number] 08:02:00 Test Item Value Reference Range Comments HEMOGLOBIN A1C (BEAKER) (test mekf=685) 7.0 % 4.3-6.1 BASIC METABOLIC [id number] 07:34:00 Test Item Value Reference Range Comments SODIUM (BEAKER) (test 140 meq/L 136-145 ywep=747) POTASSIUM (BEAKER) (test 5.0 meq/L 3.5-5.1 ziqn=980) CHLORIDE (BEAKER) (test 101 meq/L 98-107 dlhq=770) CO2 (BEAKER) (test 22 meq/L 22-29 vabd=746) BLOOD UREA NITROGEN 87 mg/dL 7-21 (BEAKER) (test isph=554) CREATININE (BEAKER) (test 10.99 mg/dL 0.57-1.25 bshg=673) GLUCOSE RANDOM (BEAKER) 87 mg/dL 70-105 (test dosq=404) CALCIUM (BEAKER) (test 7.8 mg/dL 8.4-10.2 zpya=655) EGFR (BEAKER) (test 5 mL/min/1.73 sq m ESTIMATED GFR IS NOT qeon=5104) ACCURATE CREATININE CLEARANCE IN PREDICTING GLOMERULAR FILTRATION RATE. ESTIMATED GFR IS NOT APPLICABLE FOR DIALYSIS PATIENTS. [id number] 07:28:00 Test Item Value Reference Range Comments PHOSPHORUS (BEAKER) (test lmvo=816) 6.0 mg/dL 2.3-4.7 [id number] 07:28:00 Test Item Value Reference Range Comments MAGNESIUM (BEAKER) (test ttnn=135) 2.3 mg/dL 1.6-2.6 CALCIUM, [id number] 07:18:00 Test Item Value Reference Range Comments CALCIUM IONIZED (BEAKER) (test txxh=981) 1.00 mmol/L 1.12-1.27 PH, BLOOD (BEAKER) (test nmcr=9054) 7.27 HEPATITIS B SURFACE [id number] 07:11:00 Test Item Value Reference Range Comments HEPATITIS B SURFACE ANTIGEN (2) (BEAKER) (test Nonreactive Nonreactive aeix=2120) Pls add to specimen drawn earlier.POCT-GLUCOSE [id number] 07:06:00 Test Item Value Reference Range Comments POC-GLUCOSE METER (BEAKER) 118 mg/dL 70-[address] [facility] [address] [facility] (test oazr=5715) [facility] [address] PROTHROMBIN [id number] 06:14:00 Test Item Value Reference Range Comments PROTIME (BEAKER) (test jkot=208) 14.2 seconds 11.7-14.7 INR (BEAKER) (test lwcy=996) 1.1 <=5.9 RECOMMENDED COUMADIN/WARFARIN INR THERAPY RANGESSTANDARD DOSE: 2.0 - 3.0 Includes: PROPHYLAXIS forvenous thrombosis, systemic embolization; TREATMENT for venous thrombosis and/or pulmonary embolus.HIGH RISK: Target INR is 2.5-3.5 for patients with mechanical heart valves.CBC W/PLT COUNT & AUTO [id number] 06:04:00 Test Item Value Reference Range Comments WHITE BLOOD CELL COUNT (BEAKER) (test oecw=983) 5.7 K/ L 3.5-10.5 RED BLOOD CELL COUNT (BEAKER) (test vgxt=202) 3.78 M/ L 4.63-6.08 HEMOGLOBIN (BEAKER) (test tvxg=874) 13.0 GM/DL 13.7-17.5 HEMATOCRIT (BEAKER) (test evrv=354) 39.4 % 40.1-51.0 MEAN CORPUSCULAR VOLUME (BEAKER) (test nmeb=382) 104.2 fL 79.0-92.2 MEAN CORPUSCULAR HEMOGLOBIN (BEAKER) (test 34.4 pg 25.7-32.2 ckqr=100) MEAN CORPUSCULAR HEMOGLOBIN CONC (BEAKER) (test 33.0 GM/DL 32.3-36.5 yfab=940) RED CELL DISTRIBUTION WIDTH (BEAKER) (test 14.1 % 11.6-14.4 klhp=342) PLATELET COUNT (BEAKER) (test auzr=510) 82 K/CU MM 150-450 MEAN PLATELET VOLUME (BEAKER) (test kwih=645) 13.3 fL 9.4-12.4 NUCLEATED RED BLOOD CELLS (BEAKER) (test 0 /100 WBC 0-0 sqws=003) NEUTROPHILS RELATIVE PERCENT (BEAKER) (test 62 % vecf=496) LYMPHOCYTES RELATIVE PERCENT (BEAKER) (test 23 % kejp=364) MONOCYTES RELATIVE PERCENT (BEAKER) (test 11 % vnqw=075) EOSINOPHILS RELATIVE PERCENT (BEAKER) (test 4 % cwct=520) BASOPHILS RELATIVE PERCENT (BEAKER) (test 1 % phju=884) NEUTROPHILS ABSOLUTE COUNT (BEAKER) (test 3.53 K/ L 1.78-5.38 xeri=394) LYMPHOCYTES ABSOLUTE COUNT (BEAKER) (test 1.30 K/ L 1.32-3.57 uhpz=197) MONOCYTES ABSOLUTE COUNT (BEAKER) (test mjpy=432) 0.62 K/ L 0.30-0.82 EOSINOPHILS ABSOLUTE COUNT (BEAKER) (test 0.22 K/ L 0.04-0.54 uxlp=059) BASOPHILS ABSOLUTE COUNT (BEAKER) (test iejj=949) 0.03 K/ L 0.01-0.08 IMMATURE GRANULOCYTES-RELATIVE PERCENT (BEAKER) 1 % 0-1 (test idlx=8150) POCT-GLUCOSE [id number] 22:23:00 Test Item Value Reference Range Comments POC-GLUCOSE METER (BEAKER) 185 mg/dL 70-110 TESTED AT [place] [id number] [facility] (test ztvc=5472) [place] [id number] POCT-GLUCOSE [id number] 21:27:00 Test Item Value Reference Range Comments POC-GLUCOSE METER (BEAKER) 198 mg/dL 70-110 TESTED AT [address] (test djao=8135) [place] [id number] POCT-GLUCOSE [id number] 17:43:00 Test Item Value Reference Range Comments POC-GLUCOSE METER (BEAKER) 164 mg/dL 70-110 TESTED AT [address] (test anht=7444) [place] [id number] HEPATITIS B SURFACE [id number] 15:14:00 Test Item Value Reference Range Comments HEPATITIS B SURFACE ANTIGEN (2) (BEAKER) (test Nonreactive Nonreactive hcxk=5267) Pls add to specimen drawn earlier.BASIC METABOLIC [id number] 13:34:00 Test Item Value Reference Range Comments SODIUM (BEAKER) (test 140 meq/L 136-145 rnuv=808) POTASSIUM (BEAKER) (test 5.4 meq/L 3.5-5.1 nmlc=230) CHLORIDE (BEAKER) (test 101 meq/L 98-107 ekfo=046) CO2 (BEAKER) (test 19 meq/L 22-29 ovtx=518) BLOOD UREA NITROGEN 123 mg/dL 7-21 (BEAKER) (test mlih=587) CREATININE (BEAKER) (test 12.96 mg/dL 0.57-1.25 uwht=892) GLUCOSE RANDOM (BEAKER) 79 mg/dL 70-105 (test vrof=166) CALCIUM (BEAKER) (test 7.9 mg/dL 8.4-10.2 skrq=261) EGFR (BEAKER) (test 4 mL/min/1.73 sq m ESTIMATED GFR IS NOT scac=3979) ACCURATE CREATININE CLEARANCE IN PREDICTING GLOMERULAR FILTRATION RATE. ESTIMATED GFR IS NOT APPLICABLE FOR DIALYSIS PATIENTS. [id number] 13:24:00 Test Item Value Reference Range Comments MAGNESIUM (BEAKER) (test phoy=622) 2.3 mg/dL 1.6-2.6 [id number] 13:24:00 Test Item Value Reference Range Comments PHOSPHORUS (BEAKER) (test jhur=748) 6.2 mg/dL 2.3-4.7 POCT-GLUCOSE [id number] 12:20:00 Test Item Value Reference Range Comments POC-GLUCOSE METER (BEAKER) 84 mg/dL 70-[address] [facility] [address] [facility] (test lsnh=4581) [facility] [address] ANG, NON-TUNNELED CATH >5 Y.O. [id number] 11:23:00Reason for exam:-> please declot the AV fistula, if unable to do that he needs catheter exchangeFINAL REPORT Nontunneled dialysis catheter insertion, 09/16/2017. History: Left upper extremity AV fistula thrombosed. Modality: Fluoroscopy and sonography. Sedation: None. Suction Dredge Dumping Supervisor: Edgar Chandler MD. Patient Registration Rep: None. Approach: Right internal jugular vein Estimated [...] MDReport Verified Date/Time: 2017 11:23:57 Reading Location: [place] [address] AngioBody Reading Room POCT- GLUCOSE [id number] 07:38:00 Test Item Value Reference Range Comments POC-GLUCOSE METER (BEAKER) 89 mg/dL 70-110 TESTED AT [address] (test ller=0048) [place] [id number] PROTHROMBIN [id number] 05:19:00 Test Item Value Reference Range Comments PROTIME (BEAKER) (test nhpq=754) 14.8 seconds 11.7-14.7 INR (BEAKER) (test kpse=151) 1.2 <=5.9 RECOMMENDED COUMADIN/WARFARIN INR THERAPY RANGESSTANDARD DOSE: 2.0 - 3.0 Includes: PROPHYLAXIS forvenous thrombosis, systemic embolization; TREATMENT for venous thrombosis and/or pulmonary embolus.HIGH RISK: Target INR is 2.5-3.5 for patients with mechanical heart valves.POCT-GLUCOSE [id number] 23:26:00 Test Item Value Reference Range Comments POC-GLUCOSE METER (BEAKER) 261 mg/dL 70-[address] [facility] (test howd=9091) [place] [id number]
[2018-08-20 07:58] LABS: Absolute Lymphocytes (CBC) 0.6 K/uL (0.7-4.9); Absolute Monocytes 0.8 K/uL (0.1-1.3); Absolute Neutrophil 9.5 K/uL (1.8-8.0); Basophils % 2.3 % (0-1.3); Eosinophils % 3.1 % (0-4.4); Hematocrit 33.3 % (39.6-49.0); Lymphocytes % 5.3 % (15.3-44.8); MCV 101.2 fL (80-100); MPV 9.9 fL (7.6-11.3); Monocytes % 6.7 % (3.3-12.3)
[2018-08-20 08:25] LABS: Blood Morphology Comment NOT SEEN (NOT SEEN); Platelet Estimate ADEQ
[2018-08-20 08:50] LABS: Urine Amorphous Sediment 3+ /HPF (NONE SEEN); Urine Bacteria <20 /HPF (NONE SEEN); Urine Culture Reflex Order REFLEXED; Urine RBC 20-50 /HPF (NONE SEEN)
[2018-08-20 08:51] LABS: Urine Sperm PRESENT (NONE SEEN)
[2018-08-20 08:55] LABS: Potassium 4.3 mmol/L (3.5-5.1)
--- NOTE | 2018-08-20 09:41 | RAD REPORT ---
EXAM DESCRIPTION: Anay Single View08/20/2018 8:32 am CLINICAL HISTORY: Cough COMPARISON: July 2018 FINDINGS: The lungs appear clear of acute infiltrate. The heart is borderline IMPRESSION: No acute abnormalities displayed
[2018-08-20 09:49] LABS: Urine Blood 2+ (NEG); Urine Glucose NEGATIVE (NEG); Urine Protein 3+ (NEG); Urine pH 6.5 (5.0-7.0)
--- NOTE | 2018-08-20 10:10 | EDPHYS ---
Physician Documentation [facility] Name: Nadir Mendez Age: 73 yrs Sex: Male : 1945 Arrival Date: 08/20/2018 Time: 06:55 Bed 17 Private MD: ED Physician Deep Herzog HPI: 08/20 07:28 This 73 yrs old Male presents to ER via Wheelchair with complaints of Weakness.rn 07:28 The patient presents to the emergency department with weakness of the entire body, rn generalized weakness. Onset: The symptoms/episode began/occurred at an unknown time. Associated signs and symptoms: Pertinent positives: altered mental status, Pertinent negatives: chills, fever, seizure, syncope. Severity of symptoms: At their worst the symptoms were moderate in the emergency department the symptoms are unchanged. The patient has experienced similar episodes in the past. Family reports has been having progressively worse generalized weakness, unsure when it got bad, but this AM couldn't support his weight, was acting sleepy and tired, no fever/vomiting/diarrhea. Was supposed to go to dialysis today. No chest pain. + cough. No abd pain.. Historical: - Allergies: 07:19 No Known Drug Allergies; ph - Home Meds: 07:19 acetaminophen-codeine 300-30 mg Oral tab 1 tab every 4-6 hours for Pain [Active]; ph aspirin 81 mg Oral TbEC [Active]; calcium acetate 667 mg Oral cap [Active]; carbidopa-levodopa 25-100 mg Oral tab [Active]; cephalexin 500 mg Oral cap 1 cap every 12 hours [Active]; citalopram 10 mg tab 1 tab once daily [Active]; gabapentin 100 mg Oral cap 3 times per day [Active]; midodrine 5 mg Oral tab 2 tabs 3 times per day [Active]; Virt-Caps 1 mg Oral cap 1 cap once daily [Active]; Vitamin D Oral 58288 unit [Active]; - PMHx: 07:19 Diabetes - NIDDM; Dialysis; Hyperlipidemia; Hypertension; Renal Disease; Tues, Thurs, ph Sat; Ulcers; - PSHx: 07:19 Amputation R great toe; ph - Immunization history:: Adult Immunizations unknown. - Social history:: Smoking status: Patient/guardian denies using tobacco. - Ebola Screening: : No symptoms or risks identified at this time. - Family history:: not pertinent. - Hospitalizations: : No recent hospitalization is reported. ROS: 07:28 Constitutional: Negative for fever, chills, and weight loss, Eyes: Negative for injury, rn pain, redness, and discharge, Neck: Negative for injury, pain, and swelling, Cardiovascular: Negative for chest pain, palpitations, and edema, Respiratory: Negative for shortness of breath, wheezing, and pleuritic chest pain, Abdomen/GI: Negative for abdominal pain, nausea, vomiting, diarrhea, and constipation, MS/Extremity: Negative for injury and deformity, + nonhealing wound to right medial foot Skin: Negative for injury Neuro: Negative for headache, numbness, tingling, and seizure. Exam: 07:28 Constitutional: Patient is awake but somnolent, answers questions Head/Face: rn Normocephalic, atraumatic. ENT: dry MM, no stridor Cardiovascular: Regular rate, No gallops, murmurs, or rubs. Respiratory: + mild crackles at bases bilaterally, no wheezing, no retractions Abdomen/GI: soft, non-tender Skin: Warm, dry, + medial right foot wound with black border and foul smell, no crepitus MS/ Extremity: Diminished but palpable distal pulses Neuro: Awake, oriented to person/place/time, strength 4/5 bilateral upper ext, 3/5 bilateral lower ext, unable to get out of wheelchair, took 3 people to get him into bed. Vital Signs: 07:15 BP 142 / 64; Pulse 81; Resp 18; Temp 99.5; Pulse Ox 94% on R/A; ph 08:20 BP 150 / 63; Pulse 77; Resp 15; Pulse Ox 96% on R/A; hb 09:13 BP 124 / 53; Pulse 75; Resp 19; Pulse Ox 94% on R/A; ca1 10:15 BP 128 / 52; Pulse 72; Resp 17; Pulse Ox 95% on R/A; ca1 11:30 BP 127 / 55; Pulse 64; Resp 15; Pulse Ox 97% on R/A; hb MDM: 07:14 Patient medically screened. rn 10:06 Data reviewed: vital signs, nurses notes, lab test result(s), radiologic studies, plain rn films, and as a result, I will admit patient. Counseling: I had a detailed discussion with the patient and/or guardian regarding: the historical points, exam findings, and any diagnostic results supporting the discharge/admit diagnosis, lab results, radiology results, the need for further work-up and treatment in the hospital. Response to treatment: the patient's symptoms have mildly improved after treatment, and as a result, I will admit patient. Admission orders: after a detailed discussion of the patient's condition and case, the admit orders are written by me. ED course: Pt with worsening weakness, poor healing of right medial foot wound, admitted to Dr. Bauman, requests wound care consult. . 08/20 07:16 Order name: CBC with Diff; Complete Time: 08:32 rn 08/20 07:16 Order name: Basic Metabolic Panel; Complete Time: 09:05 rn 08/20 07:16 Order name: Urine Culture rn 08/20 07:16 Order name: Urine Microscopic Only; Complete Time: 08:55 rn 08/20 07:16 Order name: N-Terminal Pro-brain Natriuretic Peptide; Complete Time: 09:05 rn 08/20 07:16 Order name: Wound Culture rn 08/20 07:16 Order name: IV Start; Complete Time: 07:49 rn 08/20 07:16 Order name: Urine Dipstick-Ancillary (obtain specimen); Complete Time: 08:00 rn 08/20 07:16 Order name: XRAY Chest (1 view); Complete Time: 09:54 rn 08/20 07:16 Order name: EKG; Complete Time: 07:17 rn 08/20 07:16 Order name: Blood Culture Adult (2) rn 08/20 07:16 Order name: XRAY Foot RIGHT 3 View; Complete Time: 10:24 rn 08/20 08:03 Order name: Manual Differential; Complete Time: 08:32 EDMS 08/20 08:12 Order name: Urine Dipstick--Ancillary (enter results); Complete Time: 09:54 lt1 08/20 07:16 Order name: EKG - Nurse/Tech; Complete Time: 08:01 rn 08/20 08:02 Order name: Labs - recollect needed; Complete Time: 08:13 lt1 Administered Medications: No medications were administered Disposition: 08/20/18 10:10 Hospitalization ordered by Ganesh Bauman for Inpatient Admission. Preliminary diagnosis are Weakness, End stage renal disease, Peripheral vascular disease, unspecified, Diabetic foot ulcer, non-healing wound. - Bed requested for Telemetry/MedSurg (Inpatient). - Status is Inpatient Admission. hb - Condition is Stable. - Problem is an ongoing problem. - Symptoms are unchanged. UTI on Admission? No Signatures: Dispatcher [employer] EDSarahi Jackson RN RN dw Deep Herzog MD MD rn Hall, Patricia, RN RN Kimberly Monteiro RN RN Ramos, Radha lt1 Corrections: (The following items were deleted from the chart) 10:10 Hospitalization Ordered by Ganesh Bauman MD for Inpatient Admission. Preliminary dw diagnosis is Weakness; End stage renal disease; Peripheral vascular disease, unspecified; Diabetic foot ulcer, non-healing wound. Bed requested for Telemetry/MedSurg (Inpatient). Status is Inpatient Admission. Condition is Stable. Problem is an ongoing problem. Symptoms are unchanged. UTI on Admission? No. rn 12:14 11:08/20/2018 10:10 Hospitalization Ordered by Ganesh Bauman MD for Inpatient hb Admission. Preliminary diagnosis is Weakness; End stage renal disease; Peripheral vascular disease, unspecified; Diabetic foot ulcer, non-healing wound. Bed requested for Telemetry/MedSurg (Inpatient). Status is Inpatient Admission. Condition is Stable. Problem is an ongoing problem. Symptoms are unchanged. UTI on Admission? No. dw
--- NOTE | 2018-08-20 10:10 | ER ---
Nurse's Notes [facility] Name: Nadir Mendez Age: 73 yrs Sex: Male : 1945 Arrival Date: 08/20/2018 Time: 06:55 Bed 17 Private MD: Diagnosis: Weakness;End stage renal disease;Peripheral vascular disease, unspecified;Diabetic foot ulcer, non-healing wound Presentation: 08/20 07:11 Presenting complaint: Child states: " He has been really weak and I think he's been ph depressed since they amputated his toe." Reports that pt had R great toe amputated approx 1 month ago, also reports that pt has decreased appetite cough, and trouble standing and walking. Was due for dialysis and wound healing today. Transition of care: patient was not received from another setting of care. 07:11 Method Of Arrival: Wheelchair ph 07:15 Onset of symptoms was August 20, 2018. Risk Assessment: Do you want to hurt yourself ph or someone else? Patient reports no desire to harm self or others. Initial Sepsis Screen: Does the patient meet any 2 criteria? No. Patient's initial sepsis screen is negative. Care prior to arrival: None. 07:15 Acuity: ASTER 3 ph 08:00 Initial Sepsis Screen: Does the patient meet any 2 criteria? No. Patient's initial hb sepsis screen is negative. Does the patient have a suspected source of infection? Yes: Skin breakdown/wound. Historical: - Allergies: 07:19 No Known Drug Allergies; ph - Home Meds: 07:19 acetaminophen-codeine 300-30 mg Oral tab 1 tab every 4-6 hours for Pain [Active]; ph aspirin 81 mg Oral TbEC [Active]; calcium acetate 667 mg Oral cap [Active]; carbidopa-levodopa 25-100 mg Oral tab [Active]; cephalexin 500 mg Oral cap 1 cap every 12 hours [Active]; citalopram 10 mg tab 1 tab once daily [Active]; gabapentin 100 mg Oral cap 3 times per day [Active]; midodrine 5 mg Oral tab 2 tabs 3 times per day [Active]; Virt-Caps 1 mg Oral cap 1 cap once daily [Active]; Vitamin D Oral 32262 unit [Active]; - PMHx: 07:19 Diabetes - NIDDM; Dialysis; Hyperlipidemia; Hypertension; Renal Disease; Tues, Thurs, ph Sat; Ulcers; - PSHx: 07:19 Amputation R great toe; ph - Immunization history:: Adult Immunizations unknown. - Social history:: Smoking status: Patient/guardian denies using tobacco. - Ebola Screening: : No symptoms or risks identified at this time. - Family history:: not pertinent. - Hospitalizations: : No recent hospitalization is reported. Screenin:30 Abuse screen: Denies threats or abuse. Denies injuries from another. Nutritional hb screening: No deficits noted. Tuberculosis screening: No symptoms or risk factors identified. Fall Risk Total Granados Fall Scale indicates High Risk Score (45 or more points). Fall prevention measures have been instituted. Side Rails Up X 2 Frequent Obs/Assessments Occuring Family Present and informed to notify staff if the need to leave the bedside As available patient and family educated on Fall Prevention Program and Strategies. Assessment: 07:30 Reassessment:. General: Appears in no apparent distress. Behavior is calm, cooperative. hb Pain: Denies pain. Neuro: Level of Consciousness is obeys commands, lethargic. Cardiovascular: Heart tones S1 S2 present Capillary refill < 3 seconds Patient's skin is warm and dry. Respiratory: Airway is patent Respiratory effort is even, unlabored, Respiratory pattern is regular, symmetrical, Breath sounds are clear bilaterally. GI: No signs and/or symptoms were reported involving the gastrointestinal system. : No signs and/or symptoms were reported regarding the genitourinary system. EENT: No signs and/or symptoms were reported regarding the EENT system. Derm: Skin is pale, Wound noted right medial foot. Musculoskeletal: Parent/caregiver report the patient having weakness in generalized. 08:18 Reassessment: Patient appears in no apparent distress at this time. No changes from hb previously documented assessment. Patient and/or family updated on plan of care and expected duration. Pain level reassessed. Family remains at bedside. 09:22 Reassessment: Patient appears in no apparent distress at this time. No changes from ca1 previously documented assessment. Patient and/or family updated on plan of care and expected duration. Pain level reassessed. Patient is sleeping. Family at bedside. 10:15 Reassessment: Patient appears in no apparent distress at this time. No changes from ca1 previously documented assessment. Patient and/or family updated on plan of care and expected duration. Pain level reassessed. 11:30 Reassessment: Patient appears in no apparent distress at this time. No changes from hb previously documented assessment. Patient and/or family updated on plan of care and expected duration. Pain level reassessed. Vital Signs: 07:15 BP 142 / 64; Pulse 81; Resp 18; Temp 99.5; Pulse Ox 94% on R/A; ph 08:20 BP 150 / 63; Pulse 77; Resp 15; Pulse Ox 96% on R/A; hb 09:13 BP 124 / 53; Pulse 75; Resp 19; Pulse Ox 94% on R/A; ca1 10:15 BP 128 / 52; Pulse 72; Resp 17; Pulse Ox 95% on R/A; ca1 11:30 BP 127 / 55; Pulse 64; Resp 15; Pulse Ox 97% on R/A; hb ED Course: 06:55 Patient arrived in ED. ag3 07:14 Deep Herzog MD is Attending Physician. rn 07:15 Triage completed. ph 07:19 Arm band placed on. ph 07:30 Patient has correct armband on for positive identification. Placed in gown. Bed in low hb position. Call light in reach. Side rails up X 1. 07:40 Missed attempt(s): 20 gauge in right antecubital area. ca1 07:42 Wound culture swab sent to lab. ca1 07:44 Initial lab(s) drawn, by me, sent to lab. First set of blood cultures drawn by me. dh3 Inserted saline lock: 20 gauge in right antecubital area, using aseptic technique. Blood collected. 07:45 Straight cath inserted, using sterile technique, 16 Fr. Specimen obtained. Returned ca1 urine. Patient tolerated well. 07:48 Kimberly Monteiro, RN is Primary Nurse. hb 08:00 Second set of blood cultures drawn by me. dh3 08:13 X-ray completed. Portable x-ray completed in exam room. Patient tolerated procedure ag1 well. 08:13 Lab(s) recollected, by me, sent to lab. dh3 08:33 XRAY Chest (1 view) In Process Unspecified. EDMS 08:33 XRAY Foot RIGHT 3 View In Process Unspecified. EDMS 09:03 Notified ED physician of a critical lab result(s). creat 6.9. hb 10:09 Ganesh Bauman MD is Hospitalizing Provider. rn 10:31 Awaiting bed assignment. ca1 12:13 No provider procedures requiring assistance completed. Patient admitted, IV remains in hb place. Administered Medications: No medications were administered Outcome: 10:10 Decision to Hospitalize by Provider. rn 12:00 Admitted to Tele accompanied by tech, family with patient, via stretcher, room 418, Report called to Cony PHILIP 12:00 Condition: stable 12:00 Instructed on the need for admit, Demonstrated understanding of instructions. 12:14 Patient left the ED. hb Signatures: Dispatcher [employer] EDMS Deep Herzog MD MD rn Hall, Patricia, RN RN Jessie Sarmiento ag1 Kimberly Monteiro RN RN Yola Killian 3 Natalie Ny 3 Vannessa Gonzalez RN RN ca1 Corrections: (The following items were deleted from the chart) 18:11 10:00 Initial Sepsis Screen: Does the patient have a suspected source of infection? No. Patient's initial sepsis screen is negative.
--- NOTE | 2018-08-20 10:23 | RAD REPORT ---
EXAM DESCRIPTION: RAD - Foot Right 3 View - 08/20/2018 8:32 am CLINICAL HISTORY: Right foot wound, recent amputation COMPARISON: August 03 FINDINGS: Right first toe and first metatarsal have been resected back to the proximal shaft. There is some osteopenic change along the osteotomy site. This is not uncommon after amputation. Osteomyeli tis bone destruction is not excluded if there is evidence for a nonhealing wound. There is early lucency developing along the medial margin of the second proximal phalanx base. The third-fifth toes and the second- fifth metatarsals are otherwise unremarkable. Midfoot degenerati ve change present without destruction. Dense arterial tree calcifications are present. No air or foreign body in the soft tissues. IMPRESSION: Osteopenic or early bone loss changes are present at the first metatarsal osteotomy site . Changes are not clearly destructive. Both distal disuse osteopenia and osteomyelitis are possible. Early bone loss changes are suspected at the medial margin of the second proximal phalanx base. Again , early osteomyelitis cannot be excluded. No air or foreign body in the soft tissues.
[2018-08-20] MEDS ORDERED: ONDANSETRON 4 MG/2 ML VIAL IV PRN (12:34)
[2018-08-20] MEDS ORDERED: ACETAMINOPHEN 500 MG TAB PO PRN (12:34)
[2018-08-20] MEDS ORDERED: HYDROCODONE/APAP 5/325 MG TAB PO PRN (12:34)
[2018-08-20] MEDS ORDERED: GLUCAGON 1 MG/VIAL IM PRN (14:17)
[2018-08-20] MEDS ORDERED: D50W 25 GM/50 ML SYRINGE IV PRN (14:17)
[2018-08-20] MEDS: INSULIN -REGULAR HUMAN 50 UNIT/0.5 ML ML SQ SCH ×2 (16:56→20:57)
[2018-08-20] MEDS ORDERED: CODEINE 30MG/APAP 300MG TAB PO PRN (17:30)
[2018-08-20 17:31] VITALS: BMI 26.3
--- NOTE | 2018-08-20 17:39 | P.HP ---
Certification for Inpatient Patient admitted to: Observation With expected LOS: <2 Midnights Patient will require the following post-hospital care: None Practitioner: I am a practitioner with admitting privileges, knowledge of patient current condition, hospital course, and medical plan of care. 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 He had an unsuccessful revascularization procedure with Dr. Clemens in [place] Sunday. He has not been getting out of bed. States his foot pain is 7/10. Reports no fever or chills, no nausea. Good appetite. Is currently having his dinner. The patient has no other compliants. He is on dialysis with Dr. Hawkins's group. Allergies No Known Drug Allergies Allergy (Verified 07/24/18 10:49) Unknown Home Medications: Gabapentin [Neurontin*] 100 mg PO BID 12/31/12 Pravastatin [Pravachol*] 40 mg PO BEDTIME 12/31/12 Citalopram [Celexa*] 10 mg PO BEDTIME 04/15/16 Carbidopa/Levodopa [Carbidopa-Levo 25-100 mg Odt] 1 tab PO BID 09/12/16 Iron/FA/Vit B-Com W/C [Hemocyte Plus*] 1 cap PO DAILY 03/30/18 Pregabalin [Lyrica] 75 mg PO DAILY 05/25/18 B Complex W-C No.20/Folic Acid [Virt-Caps Softgel] 1 cap PO DAILY 08/03/18 Cephalexin [Keflex] 500 mg PO Q12HR 08/03/18 Codeine/APAP [Tylenol W/Codeine #3 tab] 1 tab PO Q4HP PRN 08/03/18 Ergocalciferol (Vitamin D2) [Vitamin D2] 50,000 unit PO SEECOM 08/03/18 Midodrine HCl [Proamatine] 5 mg PO SEECOM 08/03/18 Sertraline HCl 50 mg PO DAILY 90 Days #90 tablet 08/07/18 Cilostazol 100 mg PO DAILY 08/20/18 Clopidogrel Bisulfate [Plavix] 75 mg PO BEDTIME 08/20/18 Insulin Glargine,Hum.rec.anlog [Lantus] 65 units SQ BEDTIME 08/20/18 - Past Medical/Surgical History Has patient received pneumonia vaccine in the past: Yes Diabetic: Yes -: Hypertension -: Neuropathy -: Hyperlipidemia -: ESRD -: DM -: DDD/DJD of the spine -: Anemia of chronic disease -: Hepatitis C -: History of pancreatitis -: Dialysis stent -: LLE Stent -: Right foot sx r/t fx -: vein procedure on r femoral Psychosocial/ Personal History: has recently. - Social History Smoking Status: Former smoker Alcohol use: No CD- Drugs: No Caffeine use: Yes Place of Residence: Home Review of Systems 10-point ROS is otherwise unremarkable Musculoskeletal: Foot Pain (right side) Physical Examination - Vital Signs Temperature: 97.0 F Blood Pressure: 149/67 Pulse: 66 Respirations: 20 Pulse Ox (%): 94 - Physical Exam General: Alert, In no apparent distress HEENT: Atraumatic, PERRLA, Mucous membr. moist/pink, EOMI, Sclerae nonicteric Neck: Supple, 2+ carotid pulse no bruit, No LAD, Without JVD or thyroid abnormality Respiratory: Clear to auscultation bilaterally, Normal air movement Cardiovascular: Regular rate/rhythm, Normal S1 S2 Gastrointestinal: Normal bowel sounds, No tenderness Musculoskeletal: No tenderness Integumentary: No rashes, Diabetic ulcer (right foot. S/p amputation of the first toe.) Neurological: Normal gait, Normal speech, Normal strength at 5/5 x4 extr, Normal tone, Normal affect Lymphatics: No axilla or inguinal lymphadenopathy - Studies Laboratory Data (last 24 hrs) 08/20/18 08:09: Sodium 137, Potassium 4.3, BUN 56 H D, Creatinine 6.90 H* D, Glucose 164 H 08/20/18 07:44: WBC 11.5 H D, Hgb 11.2 L, Hct 33.3 L, Plt Count 243 D Assessment and Plan - Problems (Diagnosis) (1) At risk for fall associated with hospitalization Current Visit: Yes Status: Acute Plan: Most likely from surgery and pain. Will start him on slight fluids. PT Start antinflammatory on the patient (2) ESRD (end stage renal disease) Onset Date: 08/05/18 Current Visit: No Status: Chronic Plan: Dr. Hawkins to manage his dialysis. tomorrow is his regular day (3) Peripheral vascular disease due to secondary diabetes Onset Date: 05/27/18 Current Visit: No Status: Chronic Plan: Will try to get the records from Dr. [facility] (4) Type 2 diabetes mellitus with diabetic peripheral angiopathy with gangrene Onset Date: 06/20/18 Current Visit: No Status: Chronic Plan: Will continue his home medications and check routine cbg Qualifiers: Diabetes mellitus fci insulin use: with vermin exterminator use (5) Coronary arteriosclerosis Current Visit: No Status: Chronic Plan: stable no chest pain. Discharge Plan: Home Plan to discharge in: 24 Hours - Advance Directives Does patient have a Living Will: No Does patient have a Durable POA for Healthcare: Yes - Code Status/Comfort Care Code Status Assessed: No Code Status: Full Code Physician Review: Patient Assessed, Agree with Above Assessment and Plan Critical Care: No Time Spent Managing Pts Care (In Minutes): 45
--- NOTE | 2018-08-20 17:48 | EKG ---
Test Date: 2018-08-20 Test Time: 07:29:46 Software Team Leader: IAM MEASUREMENT RESULTS: Intervals: Rate: 77 [place]: 186 QRSD: 94 QT: 404 QTc: 457 [place]: P: 39 [place]: 186 QRS: 46 T: 65 INTERPRETIVE STATEMENTS: Sinus rhythm with frequent premature ventricular complexes Otherwise normal ECG Compared to ECG 08/03/2018 07:34:37 Indeterminate axis no longer present Electronically Signed On 08-20-18 17:47:25 RN REHABILITATION by Surya Palomino
[2018-08-20] MEDS ORDERED: NA CHLORIDE 0.9% 250 ML IV SCH (18:00)
[2018-08-20] MEDS ORDERED: DRISDOL (VITAMIN D=ERGOCALCIFEROL) 50000 UNIT CAP PO SCH (18:00)
[2018-08-20] MEDS ORDERED: NA CHLORIDE 0.9% 1,000 ML IV SCH (18:00)
[2018-08-20] MEDS ORDERED: MIDODRINE HCL 5 MG TABLET PO SCH (18:00)
[2018-08-20] MEDS: ENOXAPARIN 30 MG/0.3 ML SQ SCH (18:20)
[2018-08-20] MEDS: COLLAGENASE 30 GM OINTMENT TOP SCH (18:21)
[2018-08-20] MEDS ORDERED: NA CHLORIDE 0.9% 250 ML IV ONE (19:00)
[2018-08-20] MEDS: ATORVASTATIN 10 MG TAB PO SCH (20:15)
[2018-08-20] MEDS: GABAPENTIN 100 MG CAP PO SCH (20:15)
[2018-08-20] MEDS: CLOPIDOGREL 75 MG TABLET PO SCH (20:15)
[2018-08-20] MEDS: CITALOPRAM 10 MG TABLET PO SCH (20:15)
[2018-08-20] MEDS: INSULIN GLARGINE 100 UNITS/ML SQ SCH (20:15)
[2018-08-20] MEDS: ACETAMINOPHEN 325 MG TABLET PO SCH (20:18)
[2018-08-20] MEDS ORDERED: LEVODOPA PO SCH (21:00)
[2018-08-20] MEDS ORDERED: HOME MED 1 EA UNK (Pravastatin [Pravachol*] 40 MG) PO SCH (21:00)
[2018-08-20] MEDS ORDERED: CARBIDOPA PO SCH (21:00)
--- NOTE | 2018-08-21 03:37 | CON ---
Date of Consultation: 08/20/2018 NEPHROLOGY CONSULTATION Additional Consulting Physician: Ganesh Bauman M.D. Reason For Consultation: Elevated BUN and creatinine, hypertension. History Of Present Illness: This is a 73-year-old gentleman, well known to me from the dialysis with significant past medical history of diabetes complicated with neuropathy, peripheral vascular diseas e, status post toe amputation, hyperlipidemia, hypertension, hep C, end-stage renal disease, on hemod ialysis, TTS, at [facility] through left arm AV fistula. The patient came to the hospital complaining of wound infection after amputation. The patient missed his dialysis today. F or that reason, we have been consulted. Past Medical History: Includes, 1.Hypertension. 2.Hyperlipidemia. 3.Diabetes. 4.Hep C. 5.End-stage renal disease. Past Surgical History: Includes lower extremity bypass, toe amputation, AV fistula, and PermCath. Allergies: NO KNOWN DRUG ALLERGIES. Social History: Denies smoking, denies drinking, and denies drug abuse. Family History: Positive for diabetes and hypertension. Review of Systems: Head and Neck: No red eye. No ear pain. GI: No nausea, no vomiting. : No polyuria. No dysuria. No hematuria. Anuric. STRIKE PLANNING APPLICATIONS: Not applicable. Respiratory: No shortness of breath. Cardiovascular: No chest pain. Neuro: Has neuropathy. Musculoskeletal: Has toe pain, foot pain. Endocrine: No polydipsia. Skin: No rash. Physical Examination: Vital Signs: Blood pressure 149/67, pulse of 88. Chest: Clear to auscultation. Heart: S1, S2. Systolic murmur. Abdomen: Soft, nontender. Extremities: Toe amputation. Decreased pulse. Neuro: Alert and oriented x3. Assessment And Plan: 1.End-stage renal disease. We will maintain the patient on dialysis. The patient is going to be sc heduled for dialysis tomorrow. I do not see any hyperkalemia or over volume. For the time being, we will manage the patient on his dialysis tomorrow. Then, we will switch him back to his schedule. 2.Secondary hyperparathyroidism, stable. We will resume the patient on his binder. 3.Anemia of chronic kidney disease. Continue Epogen. 4.Hypertension, currently blood pressure controlled off blood pressure medication. We will use p.r. n. midodrine. 5.Foot infection. Continue antibiotic. We will follow up with Podiatry. 6.Diabetes as by primary. Home Medications: Include insulin, Plavix, , cephalexin, B complex, carbidopa, ergocalcife rol, gabapentin, pravastatin, midodrine, and Lyrica. Current Medication In The Hospital: Include Tylenol, Plavix, Lovenox, gabapentin, hydrocodone, insul in, multivitamin, and Lyrica. Laboratory Data: WBC 11.5, H and H 11.2/33.3, and platelets 243. Sodium 137, potassium 4.3, bicarb 25, BUN 56, creatinine 6.9, and calcium 8.5. BNP 28,000. MEREDITH/ANDRE Voice ID: [id number] Report ID: [id number]
[2018-08-21 06:17] LABS: Absolute Lymphocytes (CBC) 0.8 K/uL (0.7-4.9); Absolute Monocytes 1.1 K/uL (0.1-1.3); Basophils % 0.3 % (0-1.3); Eosinophils % 2.3 % (0-4.4); Hematocrit 30.2 % (39.6-49.0); Lymphocytes % 8.3 % (15.3-44.8); MCH 34.5 pg (27.0-35.0); MCV 103.1 fL (80-100); MPV 9.2 fL (7.6-11.3); Monocytes % 10.5 % (3.3-12.3); RBC Red Blood Cell Count 2.93 M/uL (4.33-5.43)
[2018-08-21 06:34] LABS: AST/SGOT 20 U/L (15-37); Albumin 1.9 g/dL (3.4-5.0); Alkaline Phosphatase 79 U/L (45-117); BUN Blood Urea Nitrogen 64 mg/dL (7-18); Bicarbonate 21 mmol/L (21-32); Bilirubin Total 0.4 mg/dL (0.2-1.0); Potassium 4.1 mmol/L (3.5-5.1); Protein, Total 6.2 g/dL (6.4-8.2); Sodium Level 136 mmol/L (136-145)
[2018-08-21 06:35] LABS: ALT/SGPT < 6 U/L (12-78)
[2018-08-21 06:37] LABS: Glucose Level 45 mg/dL (74-106)
[2018-08-21] MEDS: INSULIN -REGULAR HUMAN 50 UNIT/0.5 ML ML SQ SCH ×4 (07:30→21:00)
[2018-08-21] MEDS ORDERED: PANTOPRAZOLE 40MG TABLET PO SCH (07:30)
[2018-08-21] MEDS ORDERED: MULTIVITAMINS,THERAPEUT 1 TAB PO SCH (09:00)
[2018-08-21] MEDS: ACETAMINOPHEN 325 MG TABLET PO SCH ×3 (09:00→21:08)
[2018-08-21] MEDS: COLLAGENASE 30 GM OINTMENT TOP SCH (09:00)
[2018-08-21] MEDS ORDERED: PREGABALIN 75 MG CAP PO SCH (09:00)
[2018-08-21] MEDS ORDERED: CILOSTAZOL 100 MG TAB PO SCH (09:00)
[2018-08-21] MEDS ORDERED: FE SULF/FA/VIT B COMP & C TAB PO SCH (09:00)
[2018-08-21] MEDS ORDERED: SERTRALINE HCL 50 MG TAB PO SCH (09:00)
[2018-08-21] MEDS: GABAPENTIN 100 MG CAP PO SCH ×2 (10:09→21:09)
[2018-08-21] MEDS: CARBIDOPA/LEVODOPA 25/100 TAB PO SCH ×2 (10:09→21:08)
--- NOTE | 2018-08-21 10:29 | P.DS ---
Admission Date: 08/20/18 Discharge Date: 08/21/18 Primary Care Provider: Merna Disposition: ROUTINE DISCHARGE Discharge Condition: FAIR Reason for Admission: risk of falls, post operative - Problems (1) At risk for fall associated with hospitalization Onset Date: 08/21/18 Current Visit: Yes Status: Acute (2) ESRD (end stage renal disease) Onset Date: 08/05/18 Current Visit: No Status: Chronic (3) Peripheral vascular disease due to secondary diabetes Onset Date: 05/27/18 Current Visit: No Status: Chronic (4) Type 2 diabetes mellitus with diabetic peripheral angiopathy with gangrene Onset Date: 06/20/18 Current Visit: No Status: Chronic Qualifiers: Diabetes mellitus collar padder blindstitch insulin use: with collar padder blindstitch use (5) Coronary arteriosclerosis Onset Date: 08/21/18 Current Visit: No Status: Chronic Brief History of Present Illness: Patient is an office patient of [employer]. He had an unsuccessful revascularization procedure with Dr. Clemens in [place] Sunday. He has not been getting out of bed. States his foot pain is 7/10. Reports no fever or chills, no nausea. Good appetite. Is currently having his dinner. The patient has no other compliants. He is on dialysis with Dr. Hawkins's group. Hospital Course: Patient was admitted. Had dialysis with Dr. Hawkins. Was eating well. Will have him work with PT. Order home PT. If he ambulates well we can discharge him home Vital Signs/Physical Exam: Temp Pulse Resp BP Pulse Ox 96.8 F 70 20 129/65 97 08/21/18 08:00 08/21/18 08:00 08/21/18 08:00 08/21/18 08:00 08/21/18 08:00 General: Alert, In no apparent distress HEENT: Atraumatic, PERRLA, EOMI Neck: Supple, JVD not distended Respiratory: Clear to auscultation bilaterally, Normal air movement Cardiovascular: Regular rate/rhythm, Normal S1 S2 Gastrointestinal: Normal bowel sounds, No tenderness Musculoskeletal: No tenderness, Other (right 1st toe amputation) Integumentary: No rashes Neurological: Normal speech, Normal tone, Normal affect Lymphatics: No axilla or inguinal lymphadenopathy Laboratory Data at Discharge: WBC 10.2 K/uL (4.3-10.9) 08/21/18 05:49 Hgb 10.1 g/dL (13.6-17.9) L 08/21/18 05:49 Hct 30.2 % (39.6-49.0) L 08/21/18 05:49 Plt Count 169 K/uL (152-406) D 08/21/18 05:49 Sodium 136 mmol/L (136-145) 08/21/18 05:49 Potassium 4.1 mmol/L (3.5-5.1) 08/21/18 05:49 BUN 64 mg/dL (7-18) H 08/21/18 05:49 Creatinine 7.90 mg/dL (0.55-1.3) H* D 08/21/18 05:49 Glucose 45 mg/dL (74-106) L* 08/21/18 05:49 Total Bilirubin 0.4 mg/dL (0.2-1.0) 08/21/18 05:49 AST 20 U/L (15-37) 08/21/18 05:49 ALT < 6 U/L (12-78) L 08/21/18 05:49 Alkaline Phosphatase 79 U/L (45-117) 08/21/18 05:49 Home Medications: Gabapentin [Neurontin*] 100 mg PO BID 12/31/12 Pravastatin [Pravachol*] 40 mg PO BEDTIME 12/31/12 Citalopram [Celexa*] 10 mg PO BEDTIME 04/15/16 Carbidopa/Levodopa [Carbidopa-Levo 25-100 mg Odt] 1 tab PO BID 09/12/16 Iron/FA/Vit B-Com W/C [Hemocyte Plus*] 1 cap PO DAILY 03/30/18 Pregabalin [Lyrica] 75 mg PO DAILY 05/25/18 B Complex W-C No.20/Folic Acid [Virt-Caps Softgel] 1 cap PO DAILY 08/03/18 Cephalexin [Keflex] 500 mg PO Q12HR 08/03/18 Codeine/APAP [Tylenol W/Codeine #3 tab] 1 tab PO Q4HP PRN 08/03/18 Ergocalciferol (Vitamin D2) [Vitamin D2] 50,000 unit PO SEECOM 08/03/18 Midodrine HCl [Proamatine] 5 mg PO SEECOM 08/03/18 Sertraline HCl 50 mg PO DAILY 90 Days #90 tablet 08/07/18 Cilostazol 100 mg PO DAILY 08/20/18 Clopidogrel Bisulfate [Plavix] 75 mg PO BEDTIME 08/20/18 Insulin Glargine,Hum.rec.anlog [Lantus] 65 units SQ BEDTIME 08/20/18
[2018-08-21] MEDS ORDERED: VANCOMYCIN 500 MG in NA CHLORIDE 0.9% 100 ML IVPB SCH (11:15)
--- NOTE | 2018-08-21 12:10 | CON ---
Date of Consultation: 08/20/2018 Reason: Wound, right foot. History Of Present Illness: The patient is a 73-year-old gentleman with multiple medical problems, w ho had gangrene of his right great toe and had severe peripheral vascular disease. He had an amputat ion done of the gangrenous toe, and he had an intervention by a vascular surgeon in [place] hoping th at the limb salvage could be done; however, the revascularization with the vascular surgeon was not s uccessful, and his wound after the amputation had gotten worse. He feels lethargic and weak. Compla ins a little bit of pain. No fever. No chills. No purulent discharge. He was admitted with [facility], and he is being medically managed, at this point, with the medical service as well as the renal s ervice. He is awake and alert, in no acute distress. No sore throat, runny nose, cough, headaches, or dizziness. No chest pain. Review of Systems: Otherwise unremarkable. Past Medical History: Hypertension, neuropathy, hyperlipidemia, end-stage renal disease, diabetes, s evere peripheral vascular disease. Past Surgical History: Revascularization attempt in the right lower extremity, left lower extremity stent, right foot first toe transmetatarsal amputation, and dialysis access procedures. Allergies: NONE. Social History: The patient used to smoke, does not smoke any more. Physical Examination: Vital Signs: Stable. Afebrile. General: He is awake, alert, a little confused. Head and Neck: No masses. Chest: Clear. Heart: S1, S2. Abdomen: Soft. Extremities: Markedly diminished dorsalis pedis and posterior tibial pulses. On the right foot on t he side of the previous transmetatarsal amputation, there is foul-smelling black eschar, somewhat wet , consistent with wet gangrene. No purulent discharge. No significant warmth around the wound, but appears obviously to be secondarily infected. Laboratory Data: Reviewed. His white count is 10.2, today was slightly elevated yesterday. He has a left shift. Chemistry reviewed. His BUN and creatinine are obviously elevated. Because of his di alysis, his albumin is 1.9. X-ray reviewed, reveals that he does not have obvious gas in the foot or osteo. He has some post-reactive surgical changes. Assessment: A 73-year-old gentleman with multiple medical problems, end-stage renal disease, severe peripheral vascular disease, and gangrene of right foot. Recommendation: As limb salvage interventions have not worked in this patient, I believe the best op tion is right below-knee amputation. He should be on antibiotics. We should hold his Plavix, and on ce we get family to agree we will proceed with the procedure and that is in the process at this time. The case was discussed in detail with Dr. Bauman. GÉNESIS/ANDRE Voice ID: [id number] Report ID: [id number]
--- NOTE | 2018-08-21 13:50 | P.PN ---
Date of Service: 08/21/[address] Katz. wound shows gangrene and the patient may need a bka. have called Dr. Dmitri Landon. Who tried opeaning the D. Pedis on Sunday. There is a venous arterialization done by a Dr. Crabtree in [facility]. This may be the difference between a BKA and a transmetatarsal amputation. Either way there is likely to be an amputation in the near future. Awaiting a call back from Dr. Landon who is trying to contact Dr. Crabtree. Will make him inpatient. See if we are going to keep him and do a bka. Or transfer him and try the arterialization
--- NOTE | 2018-08-21 15:49 | PN ---
Date of Progress Note: 08/21/2018 Subjective: The patient doing better. No nausea. No vomiting. Physical Examination: Vital Signs: Blood pressure 129/65, pulse of 70. Chest: Clear to auscultation. Heart: S1 and S2. Regular. Abdomen: Soft, nontender. Extremities: Dressing on the right foot. Laboratory Data: WBC 10.2, H and H 10.1/30.2, platelets of 169. Sodium 136, potassium 4.1, bicarb 2 1, BUN 64, creatinine is 1.9, calcium 8.2. Current Medications: The patient on its include: Pletal, Plavix, Lovenox, atorvastatin, carbidopa, citalopram, gabapentin, Lyrica, Zoloft, insulin, codeine, multivitamin. Assessment And Plan: 1.End-stage renal disease, normal volume. We will arrange for dialysis today and we will monitor th e patient. 2.Secondary hyperparathyroidism, stable. 3.Anemia of chronic kidney disease, currently H and H stable. Continue BEAU. 4.Hypertension, controlled, optimal. Continue current medication. 5.Foot infection, peripheral vascular disease. We will follow up with Surgery. The patient cleared from the renal standpoint for discharge planning. HARISH Voice ID: [id number] Report ID: [id number]
[2018-08-21] MEDS: ENOXAPARIN 30 MG/0.3 ML SQ SCH (17:47)
[2018-08-21] MEDS: INSULIN GLARGINE 100 UNITS/ML SQ SCH (21:00)
[2018-08-21] MEDS ORDERED: VANCOMYCIN 1GM/D5W 200 ML IV SCH (21:00)
[2018-08-21] MEDS: ATORVASTATIN 10 MG TAB PO SCH (21:08)
[2018-08-21] MEDS: CITALOPRAM 10 MG TABLET PO SCH (21:08)
[2018-08-21 21:25] VITALS: BP 133/44; TEMP 97.3
[2018-08-21] MEDS: CLOPIDOGREL 75 MG TABLET PO SCH (21:57)
[2018-08-21 22:12] VITALS: O2SAT 95
== END 2018-08-21 23:45 | disposition short-term general hospital (02) | DRG 299 ==
LOC: ER 06:54 → INTOOBSV 10:17 → ERHOLD 10:17 → OBSVTOIN 10:17 → 4TH 11:56 → OBSVTOIN 08-21 14:37
PROVIDERS: ADMIT Internal Medicine; ATTEND Internal Medicine
PROC: 5A1D70Z Performance of Urinary Filtration, Intermittent, Less than 6 Hours Per Day (ICD-10-PCS; principal; 2018-08-21)
DX: E11.52 Type 2 diabetes mellitus with diabetic peripheral angiopathy with gangrene (principal); N18.6 End stage renal disease; I12.0 Hypertensive chronic kidney disease with stage 5 chronic kidney disease or end stage renal disease; I96 Gangrene, not elsewhere classified; N25.81 Secondary hyperparathyroidism of renal origin; E11.22 Type 2 diabetes mellitus with diabetic chronic kidney disease; Z99.2 Dependence on renal dialysis; Z79.4 Long term (current) use of insulin; E78.5 Hyperlipidemia, unspecified; Z87.891 Personal history of nicotine dependence; E11.42 Type 2 diabetes mellitus with diabetic polyneuropathy; I25.10 Atherosclerotic heart disease of native coronary artery without angina pectoris; B19.20 Unspecified viral hepatitis C without hepatic coma; D63.1 Anemia in chronic kidney disease; Z89.411 Acquired absence of right great toe
CPT/HCPCS: 36415; 51702; 71045; 74018; 80048; 80053; 81003; 81015; 82962; 83880; 85025; 87040; 87070; 87077; 87086; 87088; 87186; 87205; 90935; 93005; 99283; 99285; G0378; J1644; J1650; J3590

== ENCOUNTER 2018-10-14 09:32 | Inpatient (IN) | payer OTHER ==
--- OUTSIDE RECORDS SUMMARY | 2018-10-14 09:52 | XMS REPORT | Clinical Summary ---
:1945 Author Organization [facility] Address [address] [place] [address] Care Team Providers Name Role Phone Robert Primary Care Provider Quinton Mccullough Unavailable Allergies No Known Allergies Medications Medication Sig Dispensed Refills Start End Date Status Date carbidopa-levodop Take 1 tablet by 0 Active a (SINEMET) mouth 2 (two) times 25-100 mg per daily. tabletIndications : parkinsonism clopidogrel Take 75 mg by mouth 0 Active (PLAVIX) 75 mg daily. tablet aspirin 81 MG EC Take 81 mg by mouth 0 Active tablet daily. citalopram Take 10 mg by mouth 0 Active (CELEXA) 10 MG daily. tablet esomeprazole Take 40 mg by mouth 0 Active (NEXIUM) 40 mg every morning packet before breakfast. gabapentin Take 100 mg by 0 Active (NEURONTIN) 100 mouth 2 (two) times MG capsule daily. pravastatin Take 40 mg by mouth 0 Active (PRAVACHOL) 40 MG daily. tablet pregabalin Take 75 mg by mouth 0 Active (LYRICA) 50 MG daily . capsule calcium acetate Take 667 mg by 0 Active (PHOSLO) 667 mg mouth daily. capsule midodrine Take 5 mg by mouth 0 Active (PROAMATINE) 5 MG 3 (three) times tablet daily. cilostazol Take 100 mg by 0 Active (PLETAL) 100 MG mouth 2 (two) times tablet daily. acetaminophen-cod Take 1 tablet by 0 Active eine (TYLENOL #3) mouth every 4 8 300-30 mg per (four) hours as tablet needed for pain. VIRT-CAPS 1 mg Take 1 capsule by 1 Active Cap mouth daily. 8 VITAMIN D2 50,000 TAKE 1 CAPSULE ONCE 5 Active unit capsule A WEEK FOR 12 8 WEEKS, THEN 1 CAPSULE ONCE A MONTH DIRECTED HEMOCYTE-PLUS 106 TOME REYNA C?PSULA 1 Active mg iron- 1 mg Cap TODOS LOS D? 8 sertraline Take 50 mg by mouth 1 Active (ZOLOFT) 50 MG daily. 8 tablet ascorbic acid, Take 1 tablet (500 0 09/18/19 Active vitamin C, mg total) by mouth 9 20 (VITAMIN C) 500 2 (two) times MG tablet daily. epoetin jhon Inject 1 mL (10,000 1 mL 0 Active (EPOGEN,PROCRIT) Units total) 9 10,000 unit/mL subcutaneously 3 injection (three) times a week at bedtime. folic Take 1 tablet by 0 Active acid-multivitamin mouth daily. 9 s (NEPHRO-EDWIN) 0.8 mg Tab tablet heparin injection Inject 1 mL (5,000 1 mL 0 Active 5,000 units/mL Units total) 9 for DVT subcutaneously prophylaxis/dialy every 8 (eight) sis lock/IV bolus hours. insulin glargine Inject 10 Units 10 mL 0 Active (LANTUS) 100 subcutaneously 9 unit/mL injection nightly Use as directed . amLODIPine Take 1 tablet (10 0 09/19/19 Active (NORVASC) 10 MG mg total) by mouth 9 20 tablet daily. insulin lispro Inject 0-12 Units 10 mL 0 09/18/19 Active (HUMALOG) 100 subcutaneously as 9 20 unit/mL injection needed (High blood sugar). insulin lispro Inject 0-4 Units 10 mL 0 09/18/19 Active (HUMALOG) 100 subcutaneously 9 20 unit/mL injection every night as needed (High blood sugar). metoprolol Take 1 tablet (25 0 09/18/19 Active (LOPRESSOR) 25 MG mg total) by mouth 9 20 tablet 2 (two) times daily. zinc sulfate Take 1 capsule (220 0 09/19/19 Active (ZINCATE) 220 mg total) by mouth 9 20 (50) mg capsule daily. insulin glargine Inject 65 Units 0 09/18/19 Discontinued (LANTUS) 100 subcutaneously 19 unit/mL injection nightly Use as directed . traMADol (ULTRAM) Take 50 mg by mouth 0 09/18/19 Discontinued 50 mg tablet EVERY 4-6 HOURS 8 19 NEEDED FOR PAIN. benzonatate Take 1 capsule (100 20 capsule 0 09/25/19 (TESSALON) 100 MG mg total) by mouth 9 19 capsule 3 (three) times daily as needed for Cough for up to 7 days. docusate sodium Take 1 capsule (100 10 capsule 0 09/23/19 (COLACE) 100 MG mg total) by mouth 9 19 capsule 2 (two) times daily for 10 doses. meropenem Inject 0.5 g (500 1 each 0 09/23/19 (MERREM) mg total) 9 19 injection 500 mg intravenously daily for 5 days. polyethylene Take 17 g by mouth 14 each 0 09/21/19 glycol (GLYCOLAX) daily as needed 9 19 17 gram packet (Constipation) for up to 3 days. Active Problems Problem Noted Date Benign essential HTN 08/30/2018 Elevated troponin 08/30/2018 Peripheral vascular disease 08/22/2018 Gangrene of right foot 08/22/2018 Type 2 diabetes mellitus with diabetic peripheral angiopathy and gangrene, with long-term current use of insulin Dialysis AV fistula malfunction 09/15/2017 ESRD (end stage renal disease) Encounters Date Type Specialty Care Team Description 09/13/2018 Surgery Aba Millan DEBRIDEMENT/I&D,WOUND DELTA King EXTREMITY LOWER 09/13/2018 Anesthesia Event Aarti Cook MD 09/07/2018 Surgery Aba Millan AMPUTATION,FOOT DELTA King 09/07/2018 Anesthesia Event Hamzah Burgos MD 09/04/2018 Surgery Geovanni Crabtree PERIPHERAL ANGIOS / MD Davi AORTOGRAM 08/30/2018 Surgery Geovanni Crabtree REVASCULARIZATION,DIS MD Davi CHNAG AND INTERVAL LIGATION (DRIL) 08/30/2018 Anesthesia Event Alex Schultz AA 08/22/2018 - Hospital Encounter General Internal [place], Gangrene of right foot (HCC) (Primary Dx); 09/18/2018 Duong Caldera MD Peripheral vascular disease ([facility]); Katie Guerra Type 2 diabetes mellitus with diabetic peripheral angiopathy and gangrene, with long-term current use of insulin (HCC); Ivanna Clay, ESRD (end stage renal disease) ([facility]); Malfunction of arteriovenous dialysis fistula, initial encounter ([facility]); Iliana Cowart MD Benign essential HTN; Ale Kessler Elevated troponin MD Denise Bynum, MD Bill Lynch, MD David 08/22/2018 Travel after 10/13/2017 Family History Medical History Relation Name Comments [...] Vital Sign Reading Time Taken Blood Pressure 128/58 09/18/2018 1:34 PM SEC[employer] TIME WORKER Pulse 69 09/18/2018 1:34 PM SEC[employer] WORKER Temperature 36.6 C (97.9 F) 09/18/2018 1:34 PM SEC[employer] TIME WORKER Respiratory Rate 18 09/18/2018 1:34 PM SEC[employer] TIME WORKER Oxygen Saturation 97% 09/18/2018 1:34 PM SEC[employer] TIME WORKER Inhaled Oxygen Concentration 21% 09/15/2018 2:35 PM SEC[employer] TIME WORKER Weight 79.6 kg (175 lb 7.8 oz) 09/18/2018 3:00 AM SEC[employer] TIME WORKER Height 170.2 cm (5' 7") 08/22/2018 2:00 AM SEC[employer] TIME WORKER Body Mass Index 27.49 09/18/2018 3:00 AM SEC[employer] TIME WORKER Plan of Treatment Not on file Implants Implanted Type Area Solution Specialist Device Shelf Model / Identifier Expiration Serial / Date Lot Flseal Vhsd Full Strlprep 10ml [id number] - [id number] Cement/Andrea Right: HANDLEY: BIOSCI 11/20/2019 [id number] / Implanted: Qty: 1 on 08/30/2018 by Geovanni Crabtree MD ler/Adhesi Leg / ve [id number] Mesh Mtrx Wnd Bilyr 10x12.5sq [id number] - [id number] Tissue Right: [employer] 03/09/2020 [id number] / Implanted: Qty: 1 on 09/13/2018 by Aba Millan DPM Graft/Subs Foot / titute [id number] Procedures Procedure Name Priority Date/Time Associated Comments Diagnosis CARDIAC CATH REPORT - 10/08/2018 12:41 SCAN PM [employer] TIME WORKER RHYTHM STRIP - SCAN 10/08/2018 12:41 PM SEC[employer] TIME WORKER POCT-GLUCOSE METER Routine 09/18/2018 1:32 Results for this PM [employer] WORK[employer] procedure are in the results section. HEMODIALYSIS Routine 09/18/2018 1:06 Results for this INPATIENT PM [employer] WORK[employer] procedure are in the results section. POCT-GLUCOSE METER Routine 09/18/2018 7:36 Results for this AM [employer] WORKER procedure are in the results section. CBC W/PLT COUNT & Routine 09/18/2018 3:33 Results for this AUTO DIFFERENTIAL AM [employer] WORKER procedure are in the results section. CBC W/PLT COUNT & Routine 09/18/2018 3:33 Results for this AUTO DIFFERENTIAL AM [employer] TIME WORKER procedure are in the results section. BASIC METABOLIC PANEL Routine 09/18/2018 3:33 Results for this (7) AM [employer] WORK[employer] procedure are in the results section. PHOSPHORUS Routine 09/18/2018 3:33 Results for this AM [employer] WORK[employer] procedure are in the results section. MAGNESIUM Routine 09/18/2018 3:33 Results for this AM [employer] WORKER procedure are in the results section. POCT-GLUCOSE METER Routine 09/17/2018 9:32 Results for this PM [employer] WORK[employer] procedure are in the results section. POCT-GLUCOSE METER Routine 09/17/2018 5:42 Results for this PM [employer] WORK[employer] procedure are in the results section. POCT-GLUCOSE METER Routine 09/17/2018 12:37 Results for this PM [employer] WORK[employer] procedure are in the results section. POCT-GLUCOSE METER Routine 09/17/2018 8:45 Results for this AM [employer] WORKER procedure are in the results section. CBC W/PLT COUNT & Routine 09/17/2018 4:00 Results for this AUTO DIFFERENTIAL AM [employer] WORKER procedure are in the results section. PHOSPHORUS Routine 09/17/2018 4:00 Results for this AM [employer] WORK[employer] procedure are in the results section. MAGNESIUM Routine 09/17/2018 4:00 Results for this AM [employer] WORKER procedure are in the results section. CBC W/PLT COUNT & Routine 09/17/2018 4:00 Results for this AUTO DIFFERENTIAL AM [employer] WORKER procedure are in the results section. POCT-GLUCOSE METER Routine 09/16/2018 9:24 Results for this PM [employer] WORKER procedure are in the results section. POCT-GLUCOSE METER Routine 09/16/2018 5:38 Results for this PM [employer] WORKER procedure are in the results section. HEMODIALYSIS Routine 09/16/2018 1:49 Results for this INPATIENT PM [employer] WORK[employer] procedure are in the results section. POCT-GLUCOSE METER Routine 09/16/2018 1:27 Results for this PM [employer] WORKER procedure are in the results section. BASIC METABOLIC PANEL Add-On 09/16/2018 9:59 Results for this (7) AM [employer] WORK[employer] procedure are in the results section. POCT-GLUCOSE METER Routine 09/16/2018 7:42 Results for this AM [employer] WORKER procedure are in the results section. CBC W/PLT COUNT & Routine 09/16/2018 5:26 Results for this AUTO DIFFERENTIAL AM [employer] WORKER procedure are in the results section. PHOSPHORUS Routine 09/16/2018 5:26 Results for this AM SEC[employer] WORKER procedure are in the results section. MAGNESIUM Routine 09/16/2018 5:26 Results for this AM SEC[employer] TIME WORKER procedure are in the results section. CBC W/PLT COUNT & Routine 09/16/2018 5:26 Results for this AUTO DIFFERENTIAL AM [employer] WORKER procedure are in the results section. POCT-GLUCOSE METER Routine 09/15/2018 9:15 Results for this PM [employer] WORKER procedure are in the results section. POCT-GLUCOSE METER Routine 09/15/2018 5:23 Results for this PM [employer] WORKER procedure are in the results section. POCT-GLUCOSE METER Routine 09/15/2018 11:14 Results for this AM [employer] WORKER procedure are in the results section. XR FOOT RIGHT 3 VIEW Routine 09/15/2018 8:01 Results for this AM [employer] WORKER procedure are in the results section. POCT-GLUCOSE METER Routine 09/15/2018 7:43 Results for this AM [employer] WORKER procedure are in the results section. CBC W/PLT COUNT & Routine 09/15/2018 4:35 Results for this AUTO DIFFERENTIAL AM [employer] WORKER procedure are in the results section. PHOSPHORUS Routine 09/15/2018 4:35 Results for this AM [employer] WORKER procedure are in the results section. MAGNESIUM Routine 09/15/2018 4:35 Results for this AM [employer] WORKER procedure are in the results section. CBC W/PLT COUNT & Routine 09/15/2018 4:35 Results for this AUTO DIFFERENTIAL AM [employer] WORKER procedure are in the results section. POCT-GLUCOSE METER Routine 09/14/2018 9:25 Results for this PM [employer] WORKER procedure are in the results section. TRANSFUSION SERVICE 09/14/2018 5:50 REPORT - SCAN PM SEC[employer] WORKER POCT-GLUCOSE METER Routine 09/14/2018 5:14 Results for this PM [employer] WORKER procedure are in the results section. POCT-GLUCOSE METER Routine 09/14/2018 1:12 Results for this PM [employer] WORKER procedure are in the results section. POCT-GLUCOSE METER Routine 09/14/2018 7:34 Results for this AM [employer] WORKER procedure are in the results section. CBC W/PLT COUNT & Routine 09/14/2018 3:21 Results for this AUTO DIFFERENTIAL AM [employer] WORKER procedure are in the results section. BASIC METABOLIC PANEL Routine 09/14/2018 3:21 Results for this (7) AM [employer] WORKER procedure are in the results section. PHOSPHORUS Routine 09/14/2018 3:21 Results for this AM [employer] WORKER procedure are in the results section. MAGNESIUM Routine 09/14/2018 3:21 Results for this AM [employer] WORKER procedure are in the results section. CBC W/PLT COUNT & Routine 09/14/2018 3:21 Results for this AUTO DIFFERENTIAL AM [employer] WORKER procedure are in the results section. POCT-GLUCOSE METER Routine 09/13/2018 10:27 Results for this PM [employer] WORK[employer] procedure are in the results section. POCT-GLUCOSE METER Routine 09/13/2018 7:18 Results for this PM [employer] WORK[employer] procedure are in the results section. POCT-GLUCOSE METER Routine 09/13/2018 5:30 Results for this PM [employer] WORKER procedure are in the results section. HEMODIALYSIS Routine 09/13/2018 2:17 INPATIENT PM [employer] WORKER POCT-GLUCOSE METER Routine 09/13/2018 9:43 Results for this AM [employer] WORKER procedure are in the results section. POCT-GLUCOSE METER Routine 09/13/2018 9:01 Results for this AM [employer] WORK[employer] procedure are in the results section. TYPE AND SCREEN, STAT 09/13/2018 8:36 Results for this AUTOMATED AM [employer] WORK[employer] procedure are in the results section. TISSUE EXAM AP Routine 09/13/2018 8:20 Results for this AM [employer] WORK[employer] procedure are in the results section. IMPLANT,GRAFTJACKET 09/13/2018 7:35 Non-healing AM [employer] WORKER surgical wound, initial encounter Special Needs (GRAFT JACKET, PULSE LAVAGE, WOUND VAC) AMPUTATION,FOOT 09/13/2018 7:35 AM SEC[employer] WORKER Non-healing surgical wound, initial encounter Special Needs (GRAFT JACKET, PULSE LAVAGE, WOUND VAC) DEBRIDEMENT/I&D,WOUND EXTREMITY 09/13/2018 7:35 AM SEC[employer] TIME WORKER Non-healing surgical LOWER wound, initial encounter Special Needs (GRAFT JACKET, PULSE LAVAGE, WOUND VAC) CBC W/PLT COUNT & Routine 09/13/2018 4:45 AM Results for this AUTO DIFFERENTIAL [employer] WORK[employer] procedure are in the results section. PHOSPHORUS Routine 09/13/2018 4:45 AM Results for this SEC[employer] WORKER procedure are in the results section. MAGNESIUM Routine 09/13/2018 4:45 AM Results for this [employer] WORKER procedure are in the results section. CBC W/PLT COUNT & Routine 09/13/2018 4:45 AM Results for this AUTO DIFFERENTIAL [employer] WORK[employer] procedure are in the results section. BASIC METABOLIC PANEL Routine 09/13/2018 4:45 AM Results for this (7) [employer] WORK[employer] procedure are in the results section. POCT-GLUCOSE METER Routine 09/12/2018 8:47 PM Results for this SEC[employer] WORKER procedure are in the results section. POCT-GLUCOSE METER Routine 09/12/2018 6:14 PM Results for this SEC[employer] WORKER procedure are in the results section. POCT-GLUCOSE METER Routine 09/12/2018 1:13 PM Results for this SEC[employer] WORKER procedure are in the results section. POCT-GLUCOSE METER Routine 09/12/2018 9:39 AM Results for this SEC[employer] WORKER procedure are in the results section. CBC W/PLT COUNT & Routine 09/12/2018 4:34 AM Results for this AUTO DIFFERENTIAL SEC[employer] WORK[employer] procedure are in the results section. PHOSPHORUS Routine 09/12/2018 4:34 AM Results for this SEC[employer] WORKER procedure are in the results section. MAGNESIUM Routine 09/12/2018 4:34 AM Results for this SEC[employer] WORKER procedure are in the results section. CBC W/PLT COUNT & Routine 09/12/2018 4:34 AM Results for this AUTO DIFFERENTIAL SEC[employer] WORK[employer] procedure are in the results section. POCT-GLUCOSE METER Routine 09/11/2018 9:15 PM Results for this SEC[employer] WORKER procedure are in the results section. POCT-GLUCOSE METER Routine 09/11/2018 5:49 PM Results for this SEC[employer] WORKER procedure are in the results section. POCT-GLUCOSE METER Routine 09/11/2018 1:03 PM Results for this SEC[employer] WORKER procedure are in the results section. POCT-GLUCOSE METER Routine 09/11/2018 10:27 AM Results for this SEC[employer] WORKER procedure are in the results section. VITAMIN B12 AND Routine 09/11/2018 10:19 AM Results for this FOLATE SEC[employer] WORKER procedure are in the results section. HEMODIALYSIS Routine 09/11/2018 9:53 AM Results for this INPATIENT SEC[employer] WORK[employer] procedure are in the results section. POCT-GLUCOSE METER Routine 09/11/2018 7:39 AM Results for this SEC[employer] WORKER procedure are in the results section. CBC W/PLT COUNT & Routine 09/11/2018 4:51 AM Results for this AUTO DIFFERENTIAL [employer] WORK[employer] procedure are in the results section. PHOSPHORUS Routine 09/11/2018 4:51 AM Results for this SEC[employer] WORKER procedure are in the results section. MAGNESIUM Routine 09/11/2018 4:51 AM Results for this SEC[employer] WORKER procedure are in the results section. CBC W/PLT COUNT & Routine 09/11/2018 4:51 AM Results for this AUTO DIFFERENTIAL [employer] WORK[employer] procedure are in the results section. POCT-GLUCOSE METER Routine 09/10/2018 11:08 PM Results for this SEC[employer] WORK[employer] procedure are in the results section. POCT-GLUCOSE METER Routine 09/10/2018 5:31 PM Results for this [employer] WORK[employer] procedure are in the results section. POCT-GLUCOSE METER Routine 09/10/2018 1:40 PM Results for this SEC[employer] WORK[employer] procedure are in the results section. POCT-GLUCOSE METER Routine 09/10/2018 9:47 AM Results for this [employer] WORK[employer] procedure are in the results section. CBC W/PLT COUNT & Routine 09/10/2018 4:50 AM Results for this AUTO DIFFERENTIAL [employer] WORK[employer] procedure are in the results section. PHOSPHORUS Routine 09/10/2018 4:50 AM Results for this SEC[employer] WORKER procedure are in the results section. MAGNESIUM Routine 09/10/2018 4:50 AM Results for this [employer] WORK[employer] procedure are in the results section. CBC W/PLT COUNT & Routine 09/10/2018 4:50 AM Results for this AUTO DIFFERENTIAL [employer] WORK[employer] procedure are in the results section. POCT-GLUCOSE METER Routine 09/09/2018 9:06 PM Results for this [employer] WORK[employer] procedure are in the results section. POCT-GLUCOSE METER Routine 09/09/2018 4:46 PM Results for this [employer] WORK[employer] procedure are in the results section. HEMODIALYSIS Routine 09/09/2018 4:12 PM Results for this INPATIENT [employer] WORK[employer] procedure are in the results section. POCT-GLUCOSE METER Routine 09/09/2018 1:04 PM Results for this [employer] WORKER procedure are in the results section. POCT-GLUCOSE METER Routine 09/09/2018 9:24 AM Results for this [employer] WORKER procedure are in the results section. CBC W/PLT COUNT & Routine 09/09/2018 3:56 AM Results for this AUTO DIFFERENTIAL [employer] WORK[employer] procedure are in the results section. PHOSPHORUS Routine 09/09/2018 3:56 AM Results for this [employer] WORK[employer] procedure are in the results section. MAGNESIUM Routine 09/09/2018 3:56 AM Results for this [employer] WORK[employer] procedure are in the results section. CBC W/PLT COUNT & Routine 09/09/2018 3:56 AM Results for this AUTO DIFFERENTIAL [employer] WORK[employer] procedure are in the results section. BASIC METABOLIC PANEL Routine 09/09/2018 3:56 AM Results for this (7) [employer] WORK[employer] procedure are in the results section. POCT-GLUCOSE METER Routine 09/08/2018 9:44 PM Results for this [employer] WORK[employer] procedure are in the results section. TRANSFUSION SERVICE 09/08/2018 6:00 PM REPORT - SCAN [employer] WORK[employer] POCT-GLUCOSE METER Routine 09/08/2018 5:06 PM Results for this [employer] WORK[employer] procedure are in the results section. POCT-GLUCOSE METER Routine 09/08/2018 1:52 PM Results for this [employer] WORKER procedure are in the results section. POCT-GLUCOSE METER Routine 09/08/2018 10:20 AM Results for this SEC[employer] WORKER procedure are in the results section. POCT-GLUCOSE METER Routine 09/08/2018 7:58 AM Results for this [employer] WORKER procedure are in the results section. CBC W/PLT COUNT & Routine 09/08/2018 3:32 AM Results for this AUTO DIFFERENTIAL [employer] WORK[employer] procedure are in the results section. PHOSPHORUS Routine 09/08/2018 3:32 AM Results for this [employer] WORKER procedure are in the results section. MAGNESIUM Routine 09/08/2018 3:32 AM Results for this [employer] WORK[employer] procedure are in the results section. CBC W/PLT COUNT & Routine 09/08/2018 3:32 AM Results for this AUTO DIFFERENTIAL [employer] WORK[employer] procedure are in the results section. PREPARE LEUKO-REDUCED Routine 09/07/2018 11:54 PM Results for this RBC [employer] WORK[employer] procedure are in the results section. PREPARE LEUKO-REDUCED Routine 09/07/2018 11:54 PM Results for this RBC [employer] WORK[employer] procedure are in the results section. POCT-GLUCOSE METER Routine 09/07/2018 9:32 PM Results for this [employer] WORKER procedure are in the results section. TRANSFUSION SERVICE 09/07/2018 6:01 PM REPORT - SCAN [employer] WORKER POCT-GLUCOSE METER Routine 09/07/2018 4:46 PM Results for this [employer] WORKER procedure are in the results section. POCT-GLUCOSE METER Routine 09/07/2018 12:43 PM Results for this [employer] WORKER procedure are in the results section. POCT-GLUCOSE METER Routine 09/07/2018 11:42 AM Results for this [employer] WORKER procedure are in the results section. POCT-GLUCOSE METER Routine 09/07/2018 9:55 AM Results for this [employer] WORK[employer] procedure are in the results section. FUNGUS CULTURE + Routine 09/07/2018 9:04 AM Results for this SMEAR [employer] WORK[employer] procedure are in the results section. AFB CULTURE + SMEAR Routine 09/07/2018 9:03 AM SEC[employer] TIME WORKER ANAEROBIC CULTURE Routine 09/07/2018 9:03 AM Results for this [employer] WORK[employer] procedure are in the results section. SURGICALLY OBTAINED Routine 09/07/2018 9:03 AM Results for this CULTURE + GRAM STAIN [employer] WORK[employer] procedure are in the results section. FUNGUS CULTURE + Routine 09/07/2018 8:40 AM Results for this SMEAR [employer] WORK[employer] procedure are in the results section. AFB CULTURE + SMEAR Routine 09/07/2018 8:39 AM SEC[employer] TIME WORKER ANAEROBIC CULTURE Routine 09/07/2018 8:39 AM Results for this [employer] WORKER procedure are in the results section. SURGICALLY OBTAINED Routine 09/07/2018 8:39 AM Results for this CULTURE + GRAM STAIN [employer] WORK[employer] procedure are in the results section. FUNGUS CULTURE + Routine 09/07/2018 8:39 AM Results for this SMEAR [employer] WORKER procedure are in the results section. AFB CULTURE + SMEAR Routine 09/07/2018 8:37 AM SEC[employer] TIME WORKER ANAEROBIC CULTURE Routine 09/07/2018 8:37 AM Results for this [employer] WORKER procedure are in the results section. SURGICALLY OBTAINED Routine 09/07/2018 8:37 AM Results for this CULTURE + GRAM STAIN [employer] WORK[employer] procedure are in the results section. TISSUE EXAM AP Routine 09/07/2018 8:37 AM Results for this [employer] WORK[employer] procedure are in the results section. AMPUTATION,FOOT 09/07/2018 8:00 AM Open wound of [employer] WORK[employer] right lower extremity, initial encounter Case Notes 2 HOURS Special Needs (GUILLITIN) POCT-GLUCOSE METER Routine 09/07/2018 4:55 AM Results for this [employer] WORK[employer] procedure are in the results section. CBC W/PLT COUNT & AUTO Routine 09/07/2018 4:37 AM Results for this DIFFERENTIAL [employer] WORK[employer] procedure are in the results section. POTASSIUM Routine 09/07/2018 4:37 AM Results for this [employer] WORKER procedure are in the results section. PHOSPHORUS Routine 09/07/2018 4:37 AM Results for this [employer] WORKER procedure are in the results section. MAGNESIUM Routine 09/07/2018 4:37 AM Results for this [employer] WORKER procedure are in the results section. CBC W/PLT COUNT & AUTO Routine 09/07/2018 4:37 AM Results for this DIFFERENTIAL [employer] WORK[employer] procedure are in the results section. POCT-GLUCOSE METER Routine 09/06/2018 8:29 PM Results for this [employer] WORKER procedure are in the results section. TRANSFUSION SERVICE 09/06/2018 6:01 PM REPORT - SCAN SEC[employer] TIME WORKER TRANSFUSE Routine 09/06/2018 5:16 PM LEUKO-REDUCED RED SEC[employer] TIME WORKER BLOOD CELLS POCT-GLUCOSE METER Routine 09/06/2018 3:36 PM Results for this [employer] WORKER procedure are in the results section. HEMODIALYSIS INPATIENT Routine 09/06/2018 2:29 PM SEC[employer] WORKER TRANSFUSE Routine 09/06/2018 12:13 PM LEUKO-REDUCED RED SEC[employer] TIME WORKER BLOOD CELLS POTASSIUM Routine 09/06/2018 9:28 AM Results for this SEC[employer] WORKER procedure are in the results section. CBC W/PLT COUNT & AUTO Routine 09/06/2018 4:45 AM Results for this DIFFERENTIAL [employer] WORKER procedure are in the results section. PHOSPHORUS Routine 09/06/2018 4:45 AM Results for this SECOND TIME WORKER procedure are in the results section. MAGNESIUM Routine 09/06/2018 4:45 AM Results for this SECOND TIME WORKER procedure are in the results section. CBC W/PLT COUNT & AUTO Routine 09/06/2018 4:45 AM Results for this DIFFERENTIAL SECOND TIME WORKER procedure are in the results section. POCT-GLUCOSE METER Routine 09/05/2018 5:41 PM Results for this SECOND TIME WORKER procedure are in the results section. POCT-GLUCOSE METER Routine 09/05/2018 12:53 PM Results for this SECOND TIME WORKER procedure are in the results section. TYPE AND SCREEN, Routine 09/05/2018 10:17 AM Results for this AUTOMATED SECOND TIME WORKER procedure are in the results section. BLOOD CULTURE Routine 09/05/2018 10:13 AM Results for this SECOND TIME WORKER procedure are in the results section. POCT-GLUCOSE METER Routine 09/05/2018 8:17 AM Results for this SECOND TIME WORKER procedure are in the results section. BLOOD CULTURE Routine 09/05/2018 6:47 AM Results for this SECOND TIME WORKER procedure are in the results section. CBC W/PLT COUNT & AUTO Routine 09/05/2018 4:49 AM Results for this DIFFERENTIAL SECOND TIME WORKER procedure are in the results section. PHOSPHORUS Routine 09/05/2018 4:49 AM Results for this SECOND TIME WORKER procedure are in the results section. MAGNESIUM Routine 09/05/2018 4:49 AM Results for this SECOND TIME WORKER procedure are in the results section. CBC W/PLT COUNT & AUTO Routine 09/05/2018 4:49 AM Results for this DIFFERENTIAL SECOND TIME WORKER procedure are in the results section. POCT-GLUCOSE METER Routine 09/04/2018 11:28 PM Results for this SECOND TIME WORKER procedure are in the results section. HEMODIALYSIS INPATIENT Routine 09/04/2018 10:10 PM Results for this SECOND TIME WORKER procedure are in the results section. PERIPHERAL ANGIOS / 09/04/2018 3:33 PM PAD (peripheral AORTOGRAM SECOND TIME WORKER artery disease) ([facility]) XR FOOT RIGHT 3 VIEW STAT 09/04/2018 1:28 PM Results for this SECOND TIME WORKER procedure are in the results section. POCT-GLUCOSE METER Routine 09/04/2018 12:03 PM Results for this SECOND TIME WORKER procedure are in the results section. POCT-GLUCOSE METER Routine 09/04/2018 7:59 AM Results for this SECOND TIME WORKER procedure are in the results section. CBC W/PLT COUNT & AUTO Routine 09/04/2018 3:50 AM Results for this DIFFERENTIAL SECOND TIME WORKER procedure are in the results section. BASIC METABOLIC PANEL Routine 09/04/2018 3:50 AM Results for this (7) SECOND TIME WORKER procedure are in the results section. PHOSPHORUS Routine 09/04/2018 3:50 AM Results for this SECOND TIME WORKER procedure are in the results section. MAGNESIUM Routine 09/04/2018 3:50 AM Results for this SECOND TIME WORKER procedure are in the results section. CBC W/PLT COUNT & AUTO Routine 09/04/2018 3:50 AM Results for this DIFFERENTIAL SECOND TIME WORKER procedure are in the results section. ARTERIAL DOPPLER ARM, Routine 09/03/2018 9:40 PM Results for this LEFT SECOND TIME WORKER procedure are in the results section. VENOUS DOPPLER ARM, Routine 09/03/2018 9:26 PM Results for this LEFT SECOND TIME WORKER procedure are in the results section. POCT-GLUCOSE METER Routine 09/03/2018 8:30 PM Results for this SECOND TIME WORKER procedure are in the results section. POCT-GLUCOSE METER Routine 09/03/2018 6:03 PM Results for this SECOND TIME WORKER procedure are in the results section. POCT-GLUCOSE METER Routine 09/03/2018 12:48 PM Results for this SECOND TIME WORKER procedure are in the results section. RESPIRATORY PANEL [facility] Routine 09/03/2018 12:32 PM Results for this SECOND TIME WORKER procedure are in the results section. POCT-GLUCOSE METER Routine 09/03/2018 7:52 AM Results for this SECOND TIME WORKER procedure are in the results section. CBC W/PLT COUNT & AUTO Routine 09/03/2018 3:57 AM Results for this DIFFERENTIAL SECOND TIME WORKER procedure are in the results section. BASIC METABOLIC PANEL Routine 09/03/2018 3:57 AM Results for this (7) SECOND TIME WORKER procedure are in the results section. PHOSPHORUS Routine 09/03/2018 3:57 AM Results for this SECOND TIME WORKER procedure are in the results section. MAGNESIUM Routine 09/03/2018 3:57 AM Results for this SECOND TIME WORKER procedure are in the results section. CBC W/PLT COUNT & AUTO Routine 09/03/2018 3:57 AM Results for this DIFFERENTIAL SECOND TIME WORKER procedure are in the results section. POCT-GLUCOSE METER Routine 09/02/2018 8:46 PM Results for this SECOND TIME WORKER procedure are in the results section. POCT-GLUCOSE METER Routine 09/02/2018 5:25 PM Results for this SECOND TIME WORKER procedure are in the results section. HEMODIALYSIS INPATIENT Routine 09/02/2018 3:33 PM Results for this SECOND TIME WORKER procedure are in the results section. POCT-GLUCOSE METER Routine 09/02/2018 1:25 PM Results for this SECOND TIME WORKER procedure are in the results section. POCT-GLUCOSE METER Routine 09/02/2018 7:59 AM Results for this SECOND TIME WORKER procedure are in the results section. CBC W/PLT COUNT & AUTO Routine 09/02/2018 3:21 AM Results for this DIFFERENTIAL SECOND TIME WORKER procedure are in the results section. PHOSPHORUS Routine 09/02/2018 3:21 AM Results for this SECOND TIME WORKER procedure are in the results section. MAGNESIUM Routine 09/02/2018 3:21 AM Results for this SECOND TIME WORKER procedure are in the results section. CBC W/PLT COUNT & AUTO Routine 09/02/2018 3:21 AM Results for this DIFFERENTIAL SECOND TIME WORKER procedure are in the results section. BASIC METABOLIC PANEL Routine 09/02/2018 3:21 AM Results for this (7) SECOND TIME WORKER procedure are in the results section. FERRITIN Routine 09/02/2018 3:21 AM Results for this SECOND TIME WORKER procedure are in the results section. IRON, TIBC, % SAT. Routine 09/02/2018 3:21 AM Results for this (WITHOUT FERRITIN) SECOND TIME WORKER procedure are in the results section. POCT-GLUCOSE METER Routine 09/01/2018 9:02 PM Results for this SECOND TIME WORKER procedure are in the results section. POCT-GLUCOSE METER Routine 09/01/2018 5:31 PM Results for this SECOND TIME WORKER procedure are in the results section. POCT-GLUCOSE METER Routine 09/01/2018 1:04 PM Results for this SECOND TIME WORKER procedure are in the results section. POCT-GLUCOSE METER Routine 09/01/2018 9:46 AM Results for this SECOND TIME WORKER procedure are in the results section. POCT-GLUCOSE METER Routine 09/01/2018 6:30 AM Results for this SECOND TIME WORKER procedure are in the results section. CBC W/PLT COUNT & AUTO Routine 09/01/2018 5:02 AM Results for this DIFFERENTIAL SECOND TIME WORKER procedure are in the results section. PHOSPHORUS Routine 09/01/2018 5:02 AM Results for this SECOND TIME WORKER procedure are in the results section. MAGNESIUM Routine 09/01/2018 5:02 AM Results for this SECOND TIME WORKER procedure are in the results section. CBC W/PLT COUNT & AUTO Routine 09/01/2018 5:02 AM Results for this DIFFERENTIAL SECOND TIME WORKER procedure are in the results section. BASIC METABOLIC PANEL Routine 09/01/2018 5:02 AM Results for this (7) SECOND TIME WORKER procedure are in the results section. TRANSFUSION SERVICE 08/31/2018 6:01 PM REPORT - SCAN SECOND TIME WORKER POCT-GLUCOSE METER Routine 08/31/2018 5:03 PM Results for this SECOND TIME WORKER procedure are in the results section. POCT-GLUCOSE METER Routine 08/31/2018 12:38 PM Results for this SECOND TIME WORKER procedure are in the results section. POCT-GLUCOSE METER Routine 08/31/2018 7:49 AM Results for this SECOND TIME WORKER procedure are in the results section. CBC W/PLT COUNT & AUTO Routine 08/31/2018 4:05 AM Results for this DIFFERENTIAL SECOND TIME WORKER procedure are in the results section. PHOSPHORUS Routine 08/31/2018 4:05 AM Results for this SECOND TIME WORKER procedure are in the results section. MAGNESIUM Routine 08/31/2018 4:05 AM Results for this SECOND TIME WORKER procedure are in the results section. CBC W/PLT COUNT & AUTO Routine 08/31/2018 4:05 AM Results for this DIFFERENTIAL SECOND TIME WORKER procedure are in the results section. BASIC METABOLIC PANEL Routine 08/31/2018 4:05 AM Results for this (7) SECOND TIME WORKER procedure are in the results section. TROPONIN I Routine 08/31/2018 4:05 AM Results for this SECOND TIME WORKER procedure are in the results section. TROPONIN I Routine 08/30/2018 11:11 PM Results for this SECOND TIME WORKER procedure are in the results section. POCT-GLUCOSE METER Routine 08/30/2018 9:09 PM Results for this SECOND TIME WORKER procedure are in the results section. HEMODIALYSIS INPATIENT Routine 08/30/2018 9:06 PM SECOND TIME WORKER TROPONIN I Routine 08/30/2018 6:27 PM Results for this SECOND TIME WORKER procedure are in the results section. POCT-GLUCOSE METER Routine 08/30/2018 6:26 PM Results for this SECOND TIME WORKER procedure are in the results section. ECG 12-LEAD Routine 08/30/2018 5:10 PM Results for this SECOND TIME WORKER procedure are in the results section. PHOSPHORUS STAT 08/30/2018 4:33 PM Results for this SECOND TIME WORKER procedure are in the results section. TROPONIN I STAT 08/30/2018 4:33 PM Results for this SECOND TIME WORKER procedure are in the results section. MAGNESIUM STAT 08/30/2018 4:33 PM Results for this SECOND TIME WORKER procedure are in the results section. BASIC METABOLIC PANEL STAT 08/30/2018 4:33 PM Results for this (7) SECOND TIME WORKER procedure are in the results section. CBC W/PLT COUNT & AUTO Routine 08/30/2018 12:27 PM Results for this DIFFERENTIAL SECOND TIME WORKER procedure are in the results section. BASIC METABOLIC PANEL Routine 08/30/2018 12:27 PM Results for this (7) SECOND TIME WORKER procedure are in the results section. CBC W/PLT COUNT & AUTO Routine 08/30/2018 12:27 PM Results for this DIFFERENTIAL SECOND TIME WORKER procedure are in the results section. POCT-ACT Routine 08/30/2018 11:27 AM Results for this SECOND TIME WORKER procedure are in the results section. HGB/HCT (H&H) - STAT Routine 08/30/2018 11:26 AM Results for this LAB SECOND TIME WORKER procedure are in the results section. GLUCOSE-STAT LAB Routine 08/30/2018 11:26 AM Results for this SECOND TIME WORKER procedure are in the results section. POTASSIUM-STAT LAB Routine 08/30/2018 11:26 AM Results for this SECOND TIME WORKER procedure are in the results section. SODIUM NA-STAT LAB Routine 08/30/2018 11:26 AM Results for this SECOND TIME WORKER procedure are in the results section. BLOOD GAS, ARTERIAL Routine 08/30/2018 11:26 AM Results for this SECOND TIME WORKER procedure are in the results section. RRL CRITICAL LABS Routine 08/30/2018 11:26 AM Results for this (ABG,NA,K,H&H,GLUCOSE) SECOND TIME WORKER procedure are in the results section. POCT-ACT Routine 08/30/2018 10:41 AM Results for this SECOND TIME WORKER procedure are in the results section. POCT-ACT Routine 08/30/2018 10:16 AM Results for this SECOND TIME WORKER procedure are in the results section. REVASCULARIZATION,DIST 08/30/2018 7:30 AM PAD (peripheral AL AND INTERVAL SECOND TIME WORKER artery disease) LIGATION (DRIL) (HCC) Case Notes RIGHT LEG DISTAL VEIN ARTERIALIZATION4 HRS PER CRESENCIO POCT-GLUCOSE METER Routine 08/30/2018 5:59 AM SECOND TIME WORKER CBC W/PLT COUNT & AUTO Routine 08/30/2018 2:50 AM SECOND TIME WORKER Results for this DIFFERENTIAL procedure are in the results section. CBC W/PLT COUNT & AUTO STAT 08/30/2018 2:50 AM SECOND TIME WORKER Results for this DIFFERENTIAL procedure are in the results section. TYPE AND SCREEN, AUTOMATED Routine 08/30/2018 2:50 AM SECOND TIME WORKER PHOSPHORUS Routine 08/30/2018 2:50 AM SECOND TIME WORKER MAGNESIUM Routine 08/30/2018 2:50 AM SECOND TIME WORKER CBC W/PLT COUNT & AUTO Routine 08/30/2018 2:50 AM SECOND TIME WORKER Results for this DIFFERENTIAL procedure are in the results section. CALCIUM, IONIZED Routine 08/30/2018 2:50 AM SECOND TIME WORKER BASIC METABOLIC PANEL (7) Routine 08/30/2018 2:50 AM SECOND TIME WORKER PROTHROMBIN TIME/INR Routine 08/30/2018 2:50 AM SECOND TIME WORKER BASIC METABOLIC PANEL (7) STAT 08/30/2018 2:50 AM SECOND TIME WORKER CBC W/PLT COUNT & AUTO STAT 08/30/2018 2:50 AM SECOND TIME WORKER Results for this DIFFERENTIAL procedure are in the results section. POCT-GLUCOSE METER Routine 08/30/2018 12:02 AM SECOND TIME WORKER POCT-GLUCOSE METER Routine 08/29/2018 5:21 PM SECOND TIME WORKER POCT-GLUCOSE METER Routine 08/29/2018 1:18 PM SECOND TIME WORKER POCT-GLUCOSE METER Routine 08/29/2018 9:30 AM SECOND TIME WORKER BASIC METABOLIC PANEL (7) Routine 08/29/2018 4:23 AM SECOND TIME WORKER POCT-GLUCOSE METER Routine 08/28/2018 9:27 PM SECOND TIME WORKER POCT-GLUCOSE METER Routine 08/28/2018 5:55 PM SECOND TIME WORKER POCT-GLUCOSE METER Routine 08/28/2018 12:49 PM SECOND TIME WORKER HEMODIALYSIS INPATIENT Routine 08/28/2018 12:40 PM SECOND TIME WORKER POCT-GLUCOSE METER Routine 08/28/2018 9:47 AM SECOND TIME WORKER MAGNESIUM Routine 08/28/2018 3:57 AM SECOND TIME WORKER BASIC METABOLIC PANEL (7) Routine 08/28/2018 3:57 AM SECOND TIME WORKER POCT-GLUCOSE METER Routine 08/27/2018 9:13 PM SECOND TIME WORKER POCT-GLUCOSE METER Routine 08/27/2018 5:53 PM SECOND TIME WORKER POCT-GLUCOSE METER Routine 08/27/2018 11:52 AM SECOND TIME WORKER POCT-GLUCOSE METER Routine 08/27/2018 7:36 AM SECOND TIME WORKER CBC W/PLT COUNT & AUTO Routine 08/27/2018 4:30 AM SECOND TIME WORKER Results for this DIFFERENTIAL procedure are in the results section. PHOSPHORUS Routine 08/27/2018 4:30 AM SECOND TIME WORKER MAGNESIUM Routine 08/27/2018 4:30 AM SECOND TIME WORKER CBC W/PLT COUNT & AUTO Routine 08/27/2018 4:30 AM SECOND TIME WORKER Results for this DIFFERENTIAL procedure are in the results section. BASIC METABOLIC PANEL (7) Routine 08/27/2018 4:30 AM SECOND TIME WORKER POCT-GLUCOSE METER Routine 08/26/2018 9:12 PM SECOND TIME WORKER POCT-GLUCOSE METER Routine 08/26/2018 5:09 PM SECOND TIME WORKER POCT-GLUCOSE METER Routine 08/26/2018 12:37 PM SECOND TIME WORKER HEMODIALYSIS INPATIENT Routine 08/26/2018 12:31 PM SECOND TIME WORKER CBC W/PLT COUNT & AUTO Routine 08/26/2018 6:07 AM SECOND TIME WORKER Results for this DIFFERENTIAL procedure are in the results section. COMPREHENSIVE METABOLIC Routine 08/26/2018 6:07 AM SECOND TIME WORKER Results for this PANEL procedure are in the results section. CALCIUM, IONIZED Routine 08/26/2018 6:07 AM SECOND TIME WORKER PHOSPHORUS Routine 08/26/2018 6:07 AM SECOND TIME WORKER MAGNESIUM Routine 08/26/2018 6:07 AM SECOND TIME WORKER CBC W/PLT COUNT & AUTO Routine 08/26/2018 6:07 AM SECOND TIME WORKER Results for this DIFFERENTIAL procedure are in the results section. POCT-GLUCOSE METER Routine 08/25/2018 8:52 PM SECOND TIME WORKER POCT-GLUCOSE METER Routine 08/25/2018 5:08 PM SECOND TIME WORKER POCT-GLUCOSE METER Routine 08/25/2018 12:55 PM SECOND TIME WORKER POCT-GLUCOSE METER Routine 08/25/2018 9:33 AM SECOND TIME WORKER CBC W/PLT COUNT & AUTO Routine 08/25/2018 4:37 AM SECOND TIME WORKER Results for this DIFFERENTIAL procedure are in the results section. PHOSPHORUS Routine 08/25/2018 4:37 AM SECOND TIME WORKER MAGNESIUM Routine 08/25/2018 4:37 AM SECOND TIME WORKER CBC W/PLT COUNT & AUTO Routine 08/25/2018 4:37 AM SECOND TIME WORKER Results for this DIFFERENTIAL procedure are in the results section. BASIC METABOLIC PANEL (7) Routine 08/25/2018 4:37 AM SECOND TIME WORKER POCT-GLUCOSE METER Routine 08/25/2018 4:30 AM SECOND TIME WORKER POCT-GLUCOSE METER Routine 08/24/2018 9:19 PM SECOND TIME WORKER POCT-GLUCOSE METER Routine 08/24/2018 5:23 PM SECOND TIME WORKER VEIN MAPPING LEG RIGHT Routine 08/24/2018 4:08 PM SECOND TIME WORKER ARTERIAL DOPPLER LEG, RIGHT Routine 08/24/2018 4:08 PM SECOND TIME WORKER POCT-GLUCOSE METER Routine 08/24/2018 2:04 PM SECOND TIME WORKER POCT-GLUCOSE METER Routine 08/24/2018 11:54 AM SECOND TIME WORKER POCT-GLUCOSE METER Routine 08/24/2018 9:07 AM SECOND TIME WORKER POCT-GLUCOSE METER Routine 08/24/2018 8:18 AM SECOND TIME WORKER POCT-GLUCOSE METER Routine 08/24/2018 7:32 AM SECOND TIME WORKER CBC W/PLT COUNT & AUTO Routine 08/24/2018 3:55 AM SECOND TIME WORKER Results for this DIFFERENTIAL procedure are in the results section. RETICULOCYTE COUNT Routine 08/24/2018 3:55 AM SECOND TIME WORKER FERRITIN Routine 08/24/2018 3:55 AM SECOND TIME WORKER IRON, TIBC, % SAT. (WITHOUT Routine 08/24/2018 3:55 AM SECOND TIME WORKER Results for this FERRITIN) procedure are in the results section. PHOSPHORUS Routine 08/24/2018 3:55 AM SECOND TIME WORKER CBC W/PLT COUNT & AUTO Routine 08/24/2018 3:55 AM SECOND TIME WORKER Results for this DIFFERENTIAL procedure are in the results section. MAGNESIUM Routine 08/24/2018 3:55 AM SECOND TIME WORKER BASIC METABOLIC PANEL (7) Routine 08/24/2018 3:55 AM SECOND TIME WORKER POCT-GLUCOSE METER Routine 08/23/2018 9:01 PM SECOND TIME WORKER POCT-GLUCOSE METER Routine 08/23/2018 5:31 PM SECOND TIME WORKER POCT-GLUCOSE METER Routine 08/23/2018 12:07 PM SECOND TIME WORKER HEMODIALYSIS INPATIENT Routine 08/23/2018 11:33 AM SECOND TIME WORKER POCT-GLUCOSE METER Routine 08/23/2018 11:29 AM SECOND TIME WORKER POCT-GLUCOSE METER Routine 08/23/2018 7:39 AM SECOND TIME WORKER CBC W/PLT COUNT & AUTO Routine 08/23/2018 4:48 AM SECOND TIME WORKER Results for this DIFFERENTIAL procedure are in the results section. COMPREHENSIVE METABOLIC Routine 08/23/2018 4:48 AM SECOND TIME WORKER Results for this PANEL procedure are in the results section. PHOSPHORUS Routine 08/23/2018 4:48 AM SECOND TIME WORKER CBC W/PLT COUNT & AUTO Routine 08/23/2018 4:48 AM SECOND TIME WORKER Results for this DIFFERENTIAL procedure are in the results section. MAGNESIUM Routine 08/23/2018 4:48 AM SECOND TIME WORKER POCT-GLUCOSE METER Routine 08/22/2018 8:56 PM SECOND TIME WORKER XR CHEST 1 VIEW Routine 08/22/2018 6:40 PM SECOND TIME WORKER Results for this PORTABLE/BEDSIDE procedure are in the results section. PHOSPHORUS Routine 08/22/2018 6:20 PM SECOND TIME WORKER POCT-GLUCOSE METER Routine 08/22/2018 5:50 PM SECOND TIME WORKER HEPATITIS B SURFACE ANTIGEN Routine 08/22/2018 12:50 PM SECOND TIME WORKER POCT-GLUCOSE METER Routine 08/22/2018 10:32 AM SECOND TIME WORKER POCT-GLUCOSE METER Routine 08/22/2018 7:04 AM SECOND TIME WORKER POCT-GLUCOSE METER Routine 08/22/2018 6:35 AM SECOND TIME WORKER CBC W/PLT COUNT & AUTO Routine 08/22/2018 3:38 AM SECOND TIME WORKER Results for this DIFFERENTIAL procedure are in the results section. PT/APTT Routine 08/22/2018 3:38 AM SECOND TIME WORKER CBC W/PLT COUNT & AUTO Routine 08/22/2018 3:38 AM SECOND TIME WORKER Results for this DIFFERENTIAL procedure are in the results section. MAGNESIUM Routine 08/22/2018 3:38 AM SECOND TIME WORKER BASIC METABOLIC PANEL (7) Routine 08/22/2018 3:38 AM SECOND TIME WORKER after 10/13/2017 Results CARDIAC CATH REPORT - SCAN (10/08/2018 12:41 PM SECOND TIME WORKER) Narrative Performed At [facility]HYTHM [facility]IP - SCAN (10/08/2018 12:41 PM SECOND TIME WORKER) Narrative Performed At POC-Glucose meter (09/18/2018 1:32 PM SECOND TIME WORKER)Only the most recent of115 resultswithin the time period is included. POC-Glucose Meter 148 (H)Comment: TESTED AT 70 - 110 mg/dL [facility] [address] [facility] [address] Specimen Blood Performing Organization Address City/State/Zipcode Phone Number [address] [address] CENTER HEMODIALYSIS INPATIENT (09/18/2018 1:06 PM SECOND TIME WORKER) Narrative Performed At Elan Valdez RN 09/18/20181:07 PM Lab Results Component Value Date WBC 7.8 09/18/2018 HGB 8.9 (L) 09/18/2018 HCT 27.9 (L) 09/18/2018 MCV 102.6 (H) 09/18/2018 PLT 244 09/18/2018 Lab Results Component Value Date GLUCOSE 94 09/18/2018 CALCIUM 8.7 09/18/2018 NA 136 09/18/2018 K 4.3 09/18/2018 CO2 27 09/18/2018 CL 97 (L) 09/18/2018 BUN 43 (H) 09/18/2018 CREATININE 5.04 (H) 09/18/2018 Lab Results Component Value Date HEPBSAG Nonreactive 08/22/2018 Vitals: 09/18/18 1244 BP: 134/63 Pulse: 66 Resp: 16 Temp: 98.4 F (36.9 C) SpO2: HD x 3hrs. UF net 2.5L. Treatment tolerated well. Pt awake and alert, not in distress. CBC with platelet count + automated diff (09/18/2018 3:33 AM SECOND TIME WORKER)Only the most recent of28 resultswithin the time period is included. WBC 7.8 3.5 - 10.5 K/L [facility] RBC 2.72 (L) 4.63 - 6.08 M/L [facility] Hemoglobin 8.9 (L) 13.7 - 17.5 GM/DL [facility] Hematocrit 27.9 (L) 40.1 - 51.0 % [facility] MCV 102.6 (H) 79.0 - 92.2 fL [facility] MCH 32.7 (H) 25.7 - 32.2 pg [facility] MCHC 31.9 (L) 32.3 - 36.5 GM/DL [facility] RDW 17.2 (H) 11.6 - 14.4 % [facility] Platelets 244 150 - 450 K/CU MM [facility] MPV 11.2 9.4 - 12.4 fL [facility] nRBC 0 0 - 0 /100 WBC [facility] % Neutros 62 % [facility] % Lymphs 19 % [facility] % Monos 10 % [facility] % Eos 7 % [facility] % Baso 1 % [facility] # Neutros 4.83 1.78 - 5.38 K/L [facility] # Lymphs 1.49 1.32 - 3.57 K/L [facility] # Monos 0.80 0.30 - 0.82 K/L [facility] # Eos 0.51 0.04 - 0.54 K/L [facility] # Baso 0.05 0.01 - 0.08 K/L [facility] Immature 1 0 - 1 % [facility] Granulocytes-[facility] Specimen Blood - Arm, Right Performing Organization Address City/State/Zipcode Phone Number [place] [phone] [place], [place] [phone] CENTER Phosphorus (09/18/2018 3:33 AM SECOND TIME WORKER)Only the most recent of27 resultswithin the time period is included. Phosphorus 3.2 2.3 - 4.7 mg/dL [facility] Specimen Blood - Arm, Right Performing Organization Address City/[facility] Phone Number [address] [phone] CENTER Magnesium (09/18/2018 3:33 AM SECOND TIME WORKER)Only the most recent of28 resultswithin the time period is included. Magnesium 2.1 1.6 - 2.6 mg/dL [facility] Specimen Blood - Arm, Right Performing Organization Address [facility] Phone Number [address] [phone] CENTER Basic Metabolic Panel (09/18/2018 3:33 AM SECOND TIME WORKER)Only the most recent of20 resultswithin the time period is included. Sodium 136 136 - 145 meq/L [facility] Potassium 4.3 3.5 - 5.1 meq/L [facility] Chloride 97 (L) 98 - 107 meq/L [facility] CO2 27 22 - 29 meq/L [facility] BUN 43 (H) 7 - 21 mg/dL [facility] Creatinine 5.04 (H) 0.57 - 1.25 mg/dL [facility] Glucose 94 70 - 105 mg/dL [facility] Calcium 8.7 8.4 - 10.2 mg/dL [facility] EGFR 11Comment: ESTIMATED GFR IS mL/min/1.73 sq m [facility] NOT ACCURATE CREATININE [facility] CLEARANCE IN PREDICTING GLOMERULAR FILTRATION RATE. ESTIMATED GFR IS NOT APPLICABLE FOR DIALYSIS PATIENTS. Specimen Blood - Arm, Right Performing Organization Address City/State/Zipcode Phone Number [facility] [phone] [place] [address] [phone] CENTER HEMODIALYSIS INPATIENT (09/16/2018 1:49 PM SECOND TIME WORKER) Narrative Performed At Skinny Montero RN 09/16/20181:50 PM Hemodialysis completed over 3.5 hours with UF-2.5L. Pt tolerated treatment well. AAOX4, vital signs stable, no distress. Report given. BP 157/71 (BP Location: Right arm, Patient Position: Lying)| Pulse 83| Temp 98.8 F (37.1 C) (Oral)| Resp 16| Ht 1.702 m (5' 7")| Wt 78.1 kg (172 lb 1.6 oz)| SpO2 97%| BMI 26.95 kg/m No Known Allergies No results found for: HEPBSAB Lab Results Component Value Date GLUCOSE 93 09/16/2018 K 4.8 09/16/2018 CALCIUM 8.5 09/16/2018 NA 138 09/16/2018 CO2 28 09/16/2018 CL 99 09/16/2018 BUN 46 (H) 09/16/2018 CREATININE 5.96 (H) 09/16/2018 Lab Results Component Value Date WBC 9.1 09/16/2018 HCT 28.2 (L) 09/16/2018 MCV 104.4 (H) 09/16/2018 PLT 238 09/16/2018 SKINNY MONTERO RN XR foot 3 views right (09/15/2018 8:01 AM SECOND TIME WORKER)Only the most recent of2 resultswithin the time period is included. Narrative Performed At FINAL REPORT [facility] RIGHT FOOT 3 VIEWS HISTORY: Status post amputation COMPARISON: Right foot radiograph of 09/04/2018 FINDINGS: AP, oblique, and lateral views of the rightfoot were obtained. Interval transmetatarsal amputation of the forefoot at the level of the proximal metatarsals. No radiographic evidence of osteomyelitis in the metatarsal remnants. No radiographic evidence of osteomyelitis in the remainder of the foot. There are internal fixation screws in the medial malleolus. Arterial calcifications are present. Signed: Ciara Huffman MD Report Verified Date/Time:09/15/2018 08:28:29 Reading Location: [facility] Transitional Reading Room Procedure Note Interface, External Ris In - 09/15/2018 8:30 AM SECOND TIME WORKER FINAL REPORT RIGHT FOOT 3 VIEWS HISTORY: Status post amputation COMPARISON: Right foot radiograph of 09/04/2018 FINDINGS: AP, oblique, and lateral views of the right foot were obtained. Interval transmetatarsal amputation of the forefoot at the level of the proximal metatarsals. No radiographic evidence of osteomyelitis in the metatarsal remnants. No radiographic evidence of osteomyelitis in the remainder of the foot. There are internal fixation screws in the medial malleolus. Arterial calcifications are present. Signed: Ciara Huffman MD Report Verified Date/Time: 09/15/2018 08:28:29 Reading Location: [facility] Transitional Reading Room Performing Organization Address City/[facility] Cent[facility]ode Phone Number RIS TRANSFUSION SERVICE REPORT - SCAN (09/14/2018 5:50 PM SECOND TIME WORKER)Only the most recent of5 resultswithin the time period is included. Narrative Performed At Type and screen, automated (09/13/2018 8:36 AM SECOND TIME WORKER)Only the most recent of3 resultswithin the time period is included. ABO/RH AUTOMATED (BEAKER) O POSITIVE [facility] Ab Scrn NEGATIVE [facility] Specimen Blood Performing Organization Address City/[facility] Centercomi Phone Number [facility] [address] [place] [address] [phone] Tissue Exam (09/13/2018 8:20 AM SECOND TIME WORKER)Only the most recent of2 resultswithin the time period is included. Case Report Surgical Pathology Report Case: [id number] [facility] Authorizing Provider:Aba Millan DPMCollected: 09/13/2018 0820 [facility] Ordering Location: [facility] PERIOPERATIVE Received: 09/13/2018 0926 SERVICES Pathologist: Carrol Trammell MD Specimen:Metatarsal, Right DIAGNOSIS BONE, RIGHT FOOT , METATARSAL, DEBRIDEMENT: [facility] - GANGRENOUS NECROSIS [facility] - OSTEOMYELITIS - NEGATIVE FOR MALIGNANCY Signing Pathologist Direct Phone Line: [phone] CPT Code(s) [address] [facility] [address] [facility] CLINICAL HISTORY Nonhealing surgical wound [facility] SPECIMEN SOURCE Right metatarsal. [facility] GROSS DESCRIPTION Specimen is received in [facility] formalin-filled container [facility] labeled with the patient's information and labeled "right metatarsal" and consists of multiple fragments of ch hemorrhagic bone and soft tissue measuring 2.5 x 2 x 1 cm in aggregate. Specimen is sectioned and submitted entirely A1-A4 for decalcification. CG/bc MICROSCOPIC DESCRIPTION Performed. [facility] Specimen Tissue - Metatarsal, Right Performing Organization Address City/[facility] Centercode Phone Number [facility] [address] [place] [address] [phone] [place] Vitamin B12 and Folate (09/11/2018 10:19 AM SECOND TIME WORKER) Vitamin B12 1,098 (H) 213 - 816 pg/mL [facility] Folate 12.9 >=7.0 ng/mL [facility] Specimen Blood Performing Organization Address City/[facility]/Zipcode Phone Number [facility] [address] [place] [address] [phone] [facility] HEMODIALYSIS INPATIENT (09/11/2018 9:53 AM SECOND TIME WORKER) Narrative Performed At Lana Bales RN 09/11/2018 12:08 PM Lab Results Component Value Date WBC 10.3 09/11/2018 HGB 9.1 (L) 09/11/2018 HCT 28.7 (L) 09/11/2018 MCV 103.2 (H) 09/11/2018 PLT 206 09/11/2018 Lab Results Component Value Date GLUCOSE 78 09/09/2018 CALCIUM 8.2 (L) 09/09/2018 NA 136 09/09/2018 K 4.5 09/09/2018 CO2 26 09/09/2018 CL 97 (L) 09/09/2018 BUN 44 (H) 09/09/2018 CREATININE 5.76 (H) 09/09/2018 Results for NADIR MENDEZ ( ) as of 09/11/2018 09:54 Ref. Range 08/22/2018 12:50 Hepatitis B Surface Ag Latest Ref Range: NonreactiveNonreactive HD completed x 3.5 hours.Net UF -2.5L.VSS.Lana Bales RN HEMODIALYSIS INPATIENT (09/09/2018 4:12 PM SECOND TIME WORKER) Narrative Performed At Lana Bales RN 09/09/20186:56 PM Lab Results Component Value Date WBC 8.8 09/09/2018 HGB 8.9 (L) 09/09/2018 HCT 27.9 (L) 09/09/2018 MCV 103.0 (H) 09/09/2018 PLT 177 09/09/2018 Lab Results Component Value Date GLUCOSE 78 09/09/2018 CALCIUM 8.2 (L) 09/09/2018 NA 136 09/09/2018 K 4.5 09/09/2018 CO2 26 09/09/2018 CL 97 (L) 09/09/2018 BUN 44 (H) 09/09/2018 CREATININE 5.76 (H) 09/09/2018 Results for NADIR MENDEZ ( ) as of 09/09/2018 15:59 Ref. Range 08/22/2018 12:50 Hepatitis B Surface Ag Latest Ref Range: NonreactiveNonreactive HD X 3 hours completed.Net UF -3L.VSS.Lana Bales RN Prepare Leuko-Red RBC (09/07/2018 11:54 PM SECOND TIME WORKER)Only the most recent of2 resultswithin the time period is included. CROSSMATCH COMPATIBLE SAFETRACE TX Unit ABO O Pos [place] [place] UNIT NUMBER [id number] [place] Status READY [place] Blood Bank Product RED BLOOD CELLS [place] PRODUCT CODE [id number] [place] CROSSMATCH COMPATIBLE SAFETRACE TX Unit ABO O Pos SAFETRACE TX UNIT NUMBER [id number] [place] Status TRANSFUSED [place] Blood Bank Product RED BLOOD CELLS [place] PRODUCT CODE [id number] [place] Specimen Other Performing Organization Address City[place] Phone Number [place] Fungus culture + smear (09/07/2018 9:04 AM SECOND TIME WORKER)Only the most recent of3 resultswithin the time period is included. Result No fungus isolated in 28 days [facility] Fungus Smear No fungi seen [facility] Specimen Tissue - Foot, Right Performing Organization Address [facility] Phone Number [address] [address] [phone] CENTER Anaerobic culture (09/07/2018 9:03 AM SECOND TIME WORKER)Only the most recent of3 resultswithin the time period is included. Result <1+ Same organism has been isolated from culture(s) of the same body site and collection date. Repeat identification performed only after consultation with the clinical microbiology laboratory. (A) [facility] Comment: MEDICAL CENTER Refer to previous culture of Bacteroides species, not fragilis Specimen Tissue - Foot, Right Performing Organization Address [facility] Phone Number [address] [address] CENTER Surgically obtained culture + gram stain (09/07/2018 9:03 AM SECOND TIME WORKER)Only the most recent of3 resultswithin the time period is included. Result No growth [facility] Gram Stain Result <1+ WBCs [facility] Gram Stain Result No organisms seen [facility] Specimen Tissue - Foot, Right Performing Organization Address [facility] Phone Number [address] [address] CENTER Potassium (09/07/2018 4:37 AM SECOND TIME WORKER)Only the most recent of2 resultswithin the time period is included. Potassium 4.1 3.5 - 5.1 meq/L [facility] Specimen Blood - Arm, Right Performing Organization Address [facility] Phone Number [address] [address] [place] Transfuse Leuko-Red RBC (09/06/2018 5:16 PM SECOND TIME WORKER)Only the most recent of3 resultswithin the time period is included.Blood culture (09/05/2018 10:13 AM SECOND TIME WORKER )Only the most recent of2 resultswithin the time period is included. Result No growth in 5 days [facility] Specimen Blood - Arm, Right Performing Organization Address City/State/Zipcode Phone Number [facility] [address] [place] [address] CENTER HEMODIALYSIS INPATIENT (09/04/2018 10:10 PM SECOND TIME WORKER) Narrative Performed At Josselin Sapp RN 09/04/2018 11:02 PM Patient is awake, alert and oriented X 3. Here to be dialyzed for 3 hours with UF goal of 2 L. The following most updated labs are as follows: Lab Results Component Value Date HEPBSAG Nonreactive 08/22/2018 Lab Results Component Value Date GLUCOSE 115 (H) 09/04/2018 CALCIUM 8.6 09/04/2018 NA 139 09/04/2018 K 4.3 09/04/2018 CO2 30 (H) 09/04/2018 CL 100 09/04/2018 BUN 29 (H) 09/04/2018 CREATININE 4.41 (H) 09/04/2018 Lab Results Component Value Date WBC 8.1 09/04/2018 HGB 7.9 (L) 09/04/2018 HCT 25.5 (L) 09/04/2018 MCV 106.3 (H) 09/04/2018 PLT 226 09/04/2018 Sandbag removed from the right groin. No hematoma noted. Patient dialyzed for 3 hours with Net UF=2 L using the Left arm fistula access.Report given to Primary RN. Arterial doppler arm, left (09/03/2018 9:40 PM SECOND TIME WORKER) [facility] ECHO HEARTLAB [facility] Impressions Performed At [facility] ECHO HEARTLAB [facility] Left Impression 1. The subclavian, axillary and brachial arteries are patent with Doppler waveforms consistent with an AV fistula. 2. The AV fistula is patent with velocities of: Brachial artery pre anastomosis- 232/123 cm/sec, brachial artery post anastomosis- 51.4 cm/sec, anastomosis- 267/94.9 cm/sec and outflow vein- 141/72 cm/sec. 3. The AV fistula volume flow is 1249 cc/min. 4. The radial and ulnar arteries are patent with biphasic Doppler waveforms and diffuse calcification throughout. Conclusions Summary Duplex imaging was performed on the left upper extremity. The arteries were adequately visualized. The subclavian, axillary and brachial arteries were patent with Doppler waveforms consistent with an AV fistula. The AV fistula was patent with no obstruction visualized. The radial and ulnar arteries were patent with biphasic Doppler waveforms and diffuse calcification throughout. Signature Velocities are measured in cm/s ; Diameters are measured in cm Left Upper Extremities Duplex Measurements + +----+-----+----+--------+ !Location !PSV !Ratio!Diam!Waveform! + +----+-----+----+--------+ !Mid Subclavian !148 ! !!! + +----+-----+----+--------+ !Dist Axillary !127 !0.86 !!! + +----+-----+----+--------+ !Prox Brachial !246 !1.94 !!! + +----+-----+----+--------+ !Dist Brachial !51.4!0.21 !!! + +----+-----+----+--------+ !Dist Radial !37.6!0.73 !!! + +----+-----+----+--------+ !Dist Ulnar !62.3!1.21 !!! + +----+-----+----+--------+ Narrative Performed At LAB - Upper Extremities Arterial Duplex [facility]CHO HEARTLAB [facility] Demographics Patient Name NADIR MENDEZ Date of Study09/03/2018 ANAYA [id number] Age[age] Visit Number [id number] Male Accession Number [id number] of Birth1945 ReferringShefali Freeman [id number] Physician SonographerSilvia Ricketts RVT PhysicianMD Procedure Type of Study: Extremities Arteries: Upper Extremities Arterial Duplex, ARTERIAL DOPPLER ARM, LEFT. Indications for Study:Swelling and decreased radial pulse . Patient Status:Routine. Study Location:Portable. Technical Quality:Adequate visualization. Risk Factors History of Disease + +----+ + !Diagnosis !Date!Comments ! + +----+ + !History/Risk Factors: !!Parkinson's, PVD, DM, ESRD, HLD, HTN! + +----+ + Procedure Note Interface, External Ris In - 09/04/2018 8:06 AM SECOND TIME WORKER PV LAB - Upper Extremities Arterial Duplex Demographics Patient Name NADIR MENDEZ Date of Study 09/03/2018 ANAYA Age 73 Visit Number [id number] Gender Male Accession Number [id number] Date of 1945 Referring David Khan MD Room Number 1831 Physician Bath Attendant Kimberly Martinez Interpreting Silvia Salamanca T Physician MD Procedure Type of Study: Extremities Arteries: Upper Extremities Arterial Duplex, ARTERIAL DOPPLER ARM, LEFT. Indications for Study:Swelling and decreased radial pulse . Patient Status:Routine. Study Location:Portable. Technical Quality:Adequate visualization. Risk Factors History of Disease + +----+ + !Diagnosis !Date!Comments ! + +----+ + !History/Risk Factors: ! !Parkinson's, PVD, DM, ESRD, HLD, HTN ! + +----+ + Impressions Left Impression 1. The subclavian, axillary and brachial arteries are patent with Doppler waveforms consistent with an AV fistula. 2. The AV fistula is patent with velocities of: Brachial artery pre anastomosis- 232/123 cm/sec, brachial artery post anastomosis- 51.4 cm/sec, anastomosis- 267/94.9 cm/sec and outflow vein- 141/72 cm/sec. 3. The AV fistula volume flow is 1249 cc/min. 4. The radial and ulnar arteries are patent with biphasic Doppler waveforms and diffuse calcification throughout. Conclusions Summary Duplex imaging was performed on the left upper extremity. The arteries were adequately visualized. The subclavian, axillary and brachial arteries were patent with Doppler waveforms consistent with an AV fistula. The AV fistula was patent with no obstruction visualized. The radial and ulnar arteries were patent with biphasic Doppler waveforms and diffuse calcification throughout. Signature Velocities are measured in cm/s ; Diameters are measured in cm Left Upper Extremities Duplex Measurements + +----+-----+----+--------+ !Location !PSV !Ratio!Diam!Waveform! + +----+-----+----+--------+ !Mid Subclavian !148 ! ! ! ! + +----+-----+----+--------+ !Dist Axillary !127 !0.86 ! ! ! + +----+-----+----+--------+ !Prox Brachial !246 !1.94 ! ! ! + +----+-----+----+--------+ !Dist Brachial !51.4!0.21 ! ! ! + +----+-----+----+--------+ !Dist Radial !37.6!0.73 ! ! ! + +----+-----+----+--------+ !Dist Ulnar !62.3!1.21 ! ! ! + +----+-----+----+--------+ Performing Organization Address City/State/[facility] Cent[facility]ode Phone Number [facility] Space [facility] [facility] Venous doppler arm, left (09/03/2018 9:26 PM SECOND TIME WORKER) Ejection Fraction [facility] Space [employer] Image Stream [facility] Impressions Performed At [facility] [employer] [facility] Left Impression 1. There is no deep venous obstruction in the jugular, subclavian, axillary, brachial, radial or ulnar veins. 2. There is no superficial venous obstruction in the cephalic or basilic veins. Conclusions Summary Venous duplex imaging and compression of the left upper extremity was performed. The veins were adequately visualized. The left venous system was patent and compressible with no evidence of thrombus. Signature Velocities are measured in cm/s ; Diameters are measured in cm Narrative Performed At LAB - Upper Extremities Veins [facility]ART[facility] Demographics Patient Name NADIR MENDEZ Date of Study09/03/2018 ANAYA [id number] Age[age] Visit Number [id number] Male Accession Number [id number] of Birth1945 [facility] [id number] Physician SonographerKimberly MartinezInterpreting Silvia Salamanca [facility] PhysicianMD Procedure Type of Study: Veins: Upper Extremities Veins, VENOUS DOPPLER ARM, LEFT. Indications for Study:Left arm edema and Concern for DVT . Patient Status:Routine. Study Location:Portable. Technical Quality:Adequate visualization. Risk Factors History of Disease + +----+ + !Diagnosis !Date!Comments ! + +----+ + !History/Risk Factors: !!Parkinson's, PVD, DM, ESRD, HLD, HTN! + +----+ + Procedure Note Interface, External Ris In - 09/04/2018 8:06 AM SECOND TIME WORKER PV LAB - Upper Extremities Veins Demographics Patient Name NADIR MENDEZ Date of Study 09/03/2018 ANAYA Age 73 Visit Number [id number] Gender Male Accession Number [id number] Date of 1945 Referring David Khan MD Room Number 1831 Physician Bath Attendant Kimberly Martinez Interpreting Silvia Salamanca T Physician Procedure Type of Study: Veins: Upper Extremities Veins, VENOUS DOPPLER ARM, LEFT. Indications for Study:Left arm edema and Concern for DVT . Patient Status:Routine. Study Location:Portable. Technical Quality:Adequate visualization. Risk Factors History of Disease + +----+ + !Diagnosis !Date!Comments ! + +----+ + !History/Risk Factors: ! !Parkinson's, PVD, DM, ESRD, HLD, HTN ! + +----+ + Impressions Left Impression 1. There is no deep venous obstruction in the jugular, subclavian, axillary, brachial, radial or ulnar veins. 2. There is no superficial venous obstruction in the cephalic or basilic veins. Conclusions Summary Venous duplex imaging and compression of the left upper extremity was performed. The veins were adequately visualized. The left venous system was patent and compressible with no evidence of thrombus. Signature Velocities are measured in cm/s ; Diameters are measured in cm Performing Organization Address City/State/Zipcode Phone Number [facility] RESPIRATORY PANEL [facility] (09/03/2018 12:32 PM SECOND TIME WORKER) Human Metapneumovirus Not detected Not detected, [facility] Rhinovirus Not detected Not detected, [facility] Influenza A Not detected Not detected, [facility] INFLUENZA A (NO SUBTYPE) Not detected, [facility] Influenza A subtype H1 Not detected, [facility] Influenza A Subtype H3 Not detected, [facility] Influenza A Subtype H1-2009 Not detected, [facility] Influenza B Not detected Not detected, [facility] Respiratory Syncytial Virus Not detected Not detected, [facility] Parainfluenza Virus 1 Not detected Not detected, [facility] Parainfluenza Virus 2 Not detected Not detected, [facility] Parainfluenza virus 3 Not detected Not detected, [facility] Parainfluenza Virus 4 Not detected Not detected, [facility] Adenovirus Not detected Not detected, [facility] Coronavirus 229E Not detected Not detected, [facility] Coronavirus HKU1 Not detected Not detected, [facility] Coronavirus NL63 Not detected Not detected, [facility] Coronavirus OC43 Not detected Not detected, [facility] Bordetella Pertussis Not detected Not detected, [facility] Chlamydophila Pneumoniae Not detected Not detected, [facility] Mycoplasma Pneumoniae Not detected Not detected, [facility] Specimen Nasopharyngeal - Nasopharyngeal Swab Narrative Performed At Other viruses and bacteria not targeted by [facility] this PCR panel cannot be excluded; therefore clinical correlation and follow up of serology, culture results, and other molecular studies is required. The results are not intended to be used as the sole means for clinical diagnosis or patient management decisions. This sample was tested at the [facility] using the [employer] Film[employer] Respiratory Panel. It is FDA cleared and has been verified and approved by the [facility] for clinical use on nasal swab specimens. It is not FDA-cleared for use on bronchial wash/lavage samples. However, for this sample type, validation was performed and test characteristics were determined and approved, by [facility] for clinical use under the Clinical Laboratory Improvement Amendments (CLIA) of 1988 requirements. Therefore, FDA clearance is not required.This laboratory is CLIA-certified and [employer] (CAP)-accredited to perform high complexity testing. Performing Organization Address City/State/Zipcode Phone Number [facility] [address] [phone] CENTER HEMODIALYSIS INPATIENT (09/02/2018 3:33 PM SECOND TIME WORKER) Narrative Performed At Holley Ram RN 09/02/20183:34 PM Dialyzed for 4 hrs. UF net 2L. Vss. Alert, oriented X3. Report given to Tod PHILIP. Iron, TIBC, % sat. (without ferritin) (09/02/2018 3:21 AM SECOND TIME WORKER)Only the most recent of2 resultswithin the time period is included. Iron 55.0 40.0 - 160.0 ug/dL [facility] TIBC 148 (L) 250 - 450 ug/dL [facility] Iron % Saturation 37 20 - 55 % [facility] Specimen Blood - Arm, Right Performing Organization Address City/[facility]/Zipcode Phone Number [address] [phone] [place] Ferritin (09/02/2018 3:21 AM SECOND TIME WORKER)Only the most recent of2 resultswithin the time period is included. Ferritin 414 (H) 5 - 275 ng/mL [facility] Specimen Blood - Arm, Right Performing Organization Address City/[facility]/Zipcode Phone Number [address] [phone] [place] Troponin I (08/31/2018 4:05 AM SECOND TIME WORKER)Only the most recent of4 resultswithin the time period is included. Troponin I 0.07 (H) 0.00 - 0.03 ng/mL [facility] Specimen Blood - Line, Arterial Narrative Performed At Troponin I (TnI) levels must be interpreted [facility] in the context of the presenting symptoms and the clinical findings. Elevated TnI levels indicate myocardial damage, but are not specific for ischemic heart disease. Elevated TnI levels are seen in patients with other cardiac conditions (including myocarditis and congestive heart failure), and slight TnI elevations occur in patients with other conditions, including sepsis, renal failure, acidosis, acute neurological disease, and persistent tachyarrhythmia. Performing Organization Address [facility] Phone Number [address] [address] [place] ECG 12 lead (08/30/2018 5:10 PM SECOND TIME WORKER) Narrative Performed At Ventricular Rate 90 BPM GE MUSE Atrial Rate 90 BPM P-R Interval 152 ms QRS Duration 96 ms Q-T Interval 398 ms QTC Calculation(Bazett) 486 ms P Strat[place] 16 degrees R Strat[place] 104 degrees T [place] 26 degrees Sinus rhythm with occasional and consecutive Premature ventricular complexes Rightward axis Abnormal ECG No previous ECGs available Confirmed by MD FLAHERTY JORGE ([id number]) on 09/04/2018 12:55:42 PM Procedure Note Interface, External Ris In - 09/04/2018 12:55 PM SECOND TIME WORKER Ventricular Rate 90 BPM Atrial Rate 90 BPM P-R Interval 152 ms QRS Duration 96 ms Q-T Interval 398 ms QTC Calculation(Bazett) 486 ms P [place] 16 degrees R [place] 104 degrees T [place] 26 degrees Sinus rhythm with occasional and consecutive Premature ventricular complexes Rightward axis Abnormal ECG No previous ECGs available Confirmed by MD FLAHERTY JORGE ([id number]) on 09/04/2018 12:55:42 PM Performing Organization Address [facility] Phone Number GE MUSE POC ACTIVATED CLOTTING TIME (08/30/2018 11:27 AM SECOND TIME WORKER)Only the most recent of3 resultswithin the time period is included. Activated Clotting Time 142Comment: TESTED AT sec [address] [address] Specimen Blood Performing Organization Address [facility] Number [address] [address] [phone] CENTER Potassium-Stat Lab (08/30/2018 11:26 AM SECOND TIME WORKER) Potassium 4.0 3.6 - 5.5 meq/L [facility] HOSPITAL Specimen Blood, Arterial Performing Organization [facility] [place] Phone [place] [address] [address] [place] Sodium Na-Stat Lab (08/30/2018 11:26 AM SECOND TIME WORKER) Sodium 130 (L) 135 - 148 meq/L [facility] Specimen Blood, Arterial Performing Organization Address [facility] Phone Number [address] [address] [place] Glucose-Stat Lab (08/30/2018 11:26 AM SECOND TIME WORKER) Glucose 112 (H) 70 - 110 mg/dL [facility] Specimen Blood, Arterial Performing Organization Address [facility] [place] Phone Number [address] [address] [place] HGB/HCT (H&H)-Stat Lab (08/30/2018 11:26 AM SECOND TIME WORKER) Hemoglobin 9.9 (L) 13.0 - 16.8 g/dL [facility] Hematocrit 29.0 (L) 40.0 - 50.0 % [facility] Specimen Blood, Arterial Performing Organization Address [facility] [place] Phone Number [address] [address] [phone] [place] Blood gas, arterial (08/30/2018 11:26 AM SECOND TIME WORKER) pH, Arterial 7.43 7.35 - 7.45 [facility] pCO2, Arterial 41 35 - 45 mmHg [facility] pO2, Arterial 297 (H) 80 - 90 mmHg [facility] O2 Sat, Arterial 99.7 (H) 96.0 - 97.0 % [facility] HCO3, Arterial 27 21 - 29 mmol/L [facility] Base Excess, Arterial 2.0 -2.0 - 3.0 mmol/L [facility] Patient Temperature 35.1 C [facility] FIO2 100.0 % [facility] Specimen Blood, Arterial Performing Organization Address City/[facility] Phone Number [facility] [address] [place] [address] CENTER Calcium, Ionized (08/30/2018 2:50 AM SECOND TIME WORKER)Only the most recent of2 resultswithin the time period is included. Calcium, Ion 1.07 (L) 1.12 - 1.27 mmol/L [facility] pH, Blood 7.43 [facility] Specimen Blood - Arm, Right Performing Organization Address City/State/Zipcode Phone Number [facility] [address] [place] [address] CENTER Prothrombin time/INR (08/30/2018 2:50 AM SECOND TIME WORKER) Protime 14.9 (H) 11.7 - 14.7 seconds [facility] INR 1.2 <=5.9 [facility] Specimen Blood - Arm, Right Narrative Performed At RECOMMENDED COUMADIN/WARFARIN INR THERAPY [facility] RANGES STANDARD DOSE: 2.0 - 3.0 Includes: PROPHYLAXIS for venous thrombosis, systemic embolization; TREATMENT for venous thrombosis and/or pulmonary embolus. HIGH RISK: Target INR is 2.5-3.5 for patients with mechanical heart valves. Performing Organization Address City/[facility]/Zipcode Phone Number [place] [phone] [place], [place] [phone] [place] HEMODIALYSIS INPATIENT (08/28/2018 12:40 PM SECOND TIME WORKER) Narrative Performed At Minda Fairbanks RN 08/28/2018 12:41 PM 4 hours of HD completed, Net UF of 2 L, Pt tolerated tx well. Fistula needles removed, held manual pressure until bleeding controlled. Reports given to primary RN. Lab Results Component Value Date GLUCOSE 113 (H) 08/28/2018 CALCIUM 8.8 08/28/2018 NA 136 08/28/2018 K 4.3 08/28/2018 CO2 28 08/28/2018 CL 100 08/28/2018 BUN 37 (H) 08/28/2018 CREATININE 5.04 (H) 08/28/2018 Lab Results Component Value Date WBC 7.0 08/27/2018 HGB 9.0 (L) 08/27/2018 HCT 27.9 (L) 08/27/2018 MCV 101.8 (H) 08/27/2018 PLT 165 08/27/2018 Lab Results Component Value Date HEPBSAG Nonreactive 08/22/2018 No results found for: HEPBSAB No Known Allergies No chief complaint on file. Active Ambulatory Problems Diagnosis Date Noted Dialysis AV fistula malfunction (HCC) 09/15/2017 ESRD (end stage renal disease) (HCC) Resolved Ambulatory Problems Diagnosis Date Noted No Resolved Ambulatory Problems Past Medical History: Diagnosis Date Diabetes mellitus (HCC) ESRD (end stage renal disease) (HCC) HLD (hyperlipidemia) Hypertension Parkinson's disease (HCC) PVD (peripheral vascular disease) (HCC) Past Surgical History: Procedure Laterality Date VASCULAR SURGERY son states a stent was placed in leg to "unblock" it Minda Fairbanks RN HEMODIALYSIS INPATIENT (08/26/2018 12:31 PM SECOND TIME WORKER) Narrative Performed At Skinny Montero RN 08/26/2018 12:32 PM Hd completed for 4 hours with UF- 1l. Pt did not tolerate UF- decrease to !l per Dr. Fry.No distress.AAOx4, report given. BP 156/71| Pulse 106| Temp 98 F (36.7 C) (Oral)| Resp 12 | Ht 1.702 m (5' 7")| Wt 80 kg (176 lb 4.8 oz)| SpO2 97%| BMI 27.61 kg/m No Known Allergies No results found for: HEPBSAB Lab Results Component Value Date GLUCOSE 104 08/26/2018 K 4.9 08/26/2018 CALCIUM 8.9 08/26/2018 NA 129 (L) 08/26/2018 CO2 26 08/26/2018 CL 93 (L) 08/26/2018 BUN 50 (H) 08/26/2018 CREATININE 6.18 (H) 08/26/2018 Lab Results Component Value Date WBC 7.9 08/26/2018 HCT 31.0 (L) 08/26/2018 MCV 99.0 (H) 08/26/2018 PLT 181 08/26/2018 SKINNY MONTERO RN Comprehensive metabolic panel (08/26/2018 6:07 AM SECOND TIME WORKER)Only the most recent of2 resultswithin the time period is included. Protein, Total 6.5 6.0 - 8.3 gm/dL [facility] Albumin 2.4 (L) 3.5 - 5.0 g/dL [facility] Alkaline Phosphatase 78 40 - 150 U/L [facility] Total Bilirubin 0.4 0.2 - 1.2 mg/dL [facility] Sodium 129 (L) 136 - 145 meq/L [facility] Potassium 4.9 3.5 - 5.1 meq/L [facility] Chloride 93 (L) 98 - 107 meq/L [facility] CO2 26 22 - 29 meq/L [facility] BUN 50 (H) 7 - 21 mg/dL [facility] Creatinine 6.18 (H) 0.57 - 1.25 mg/dL [facility] Glucose 104 70 - 105 mg/dL [facility] Calcium 8.9 8.4 - 10.2 mg/dL [facility] AST 22 5 - 34 U/L [facility] ALT <6 (L) 6 - 55 U/L [facility] EGFR 9Comment: ESTIMATED GFR mL/min/1.[address] [facility] IS NOT ACCURATE [facility] CREATININE CLEARANCE IN PREDICTING GLOMERULAR FILTRATION RATE. ESTIMATED GFR IS NOT APPLICABLE FOR DIALYSIS PATIENTS. Specimen Blood - Arm, Right Performing Organization Address City/State/Zipcode Phone Number [facility] [address] [place] [address] CENTER Vein Mapping Leg RIght (08/24/2018 4:08 PM SECOND TIME WORKER) Ejection Fraction [facility] ECHO HEARTLAB [facility]ON CPACS Impressions Performed At Right Impression [facility] ECHO HEARTLAB [facility] CPACS 1. There is no deep venous venous obstruction in the common femoral, profunda femoral, femoral, popliteal, posterior tibial or peroneal veins. 2. There is no superficial venous obstruction in the great saphenous vein. Left Impression NOT ORDERED Conclusions Summary Venous duplex imaging and compression of the right lower extremity was performed. The veins were adequately visualized. The venous systems were patent and compressible with no evidence of thrombus. Superficial venous measurements are documented below. Signature Velocities are measured in cm/s ; Diameters are measured in cm LE Vein Mapping Superficial - Great Saphenous Vein Right Left + + + + + + + + !Location ! !Diameter !Depth ! !Diameter !Depth ! + + + + + + + + !Sapheno Femoral Junction ! !0.5 ! ! + + + + + !GSV High Thigh ! !0.58 ! ! + + + + + !GSV Mid Thigh ! !0.37 ! ! + + + + + !GSV Low Thigh ! !0.38 ! ! + + + + + !GSV Knee ! !0.37 ! ! + + + + + !GSV High Calf ! !0.26 ! ! + + + + + !GSV Mid Calf ! !0.32 ! ! + + + + + !GSV Low Calf ! !0.36 ! ! + + + + + !GSV Ankle ! !0.35 ! ! + + + + + Superficial - Lesser Saphenous Vein Right Left + + + + + + + + !Location ! !Diameter !Depth ! !Diameter !Depth ! + + + + + + + + !SSV High Calf ! !0.27 ! ! + + + + + !SSV Mid Calf ! !0.28 ! ! + + + + + !SSV Low Calf ! !0.19 ! ! + + + + + Narrative Performed At PV LAB - Lower Extremities Vein Mapping [facility] ECHO HEARTLAB [facility] Demographics Patient NameSNADIR QUIÑONES Date of Study 08/24/2018 ANAYA 73 Visit [id number] Male of 1945 Referring [facility] Room Number 1819 Physician Bath Attendant Jannet Soares RVT Physician Procedure Type of Study: Veins: Lower Extremity Vein Mapping, VEIN MAPPING, LOWER EXTREMITY, RIGHT. Indications for Study:Pre-op for vein harvesting. Patient Status:Routine. Study Location:Vascular Lab. Technical Quality:Adequate visualization. Risk Factors History of Disease + +----+ + !Diagnosis !Date!Comments ! + +----+ + !History/Risk Factors: !!Parkinson's, PAD, DM, ESRD, HLD, HTN! + +----+ + Procedure Note Interface, External Ris In - 08/25/2018 5:10 PM SECOND TIME WORKER [facility] - Lower Extremities Vein Mapping Demographics Patient Name NADIR MENDEZ Date of Study 08/24/2018 ANAYA Age 73 Visit Number [id number] Gender Male Accession Number [id number] Date of 1945 Referring [facility] Room Number 1819 Physician Bath Attendant Jannet Chang Interpreting Sherry Soares Neo Physician Procedure Type of Study: Veins: Lower Extremity Vein Mapping, VEIN MAPPING, LOWER EXTREMITY, RIGHT. Indications for Study:Pre-op for vein harvesting. Patient Status:Routine. Study Location:Vascular Lab. Technical Quality:Adequate visualization. Risk Factors History of Disease + +----+ + !Diagnosis !Date!Comments ! + +----+ + !History/Risk Factors: ! !Parkinson's, PAD, DM, ESRD, HLD, HTN ! + +----+ + Impressions Right Impression 1. There is no deep venous venous obstruction in the common femoral, profunda femoral, femoral, popliteal, posterior tibial or peroneal veins. 2. There is no superficial venous obstruction in the great saphenous vein. Left Impression NOT ORDERED Conclusions Summary Venous duplex imaging and compression of the right lower extremity was performed. The veins were adequately visualized. The venous systems were patent and compressible with no evidence of thrombus. Superficial venous measurements are documented below. Signature Velocities are measured in cm/s ; Diameters are measured in cm LE Vein Mapping Superficial - Great Saphenous Vein Right Left + + + + + + -----+ + !Location ! !Diameter !Depth ! !Diameter !Depth ! + + + + + + -----+ + !Sapheno Femoral Junction ! !0.5 ! ! + + + + + !GSV High Thigh ! !0.58 ! ! + + + + + !GSV Mid Thigh ! !0.37 ! ! + + + + + !GSV Low Thigh ! !0.38 ! ! + + + + + !GSV Knee ! !0.37 ! ! + + + + + !GSV High Calf ! !0.26 ! ! + + + + + !GSV Mid Calf ! !0.32 ! ! + + + + + !GSV Low Calf ! !0.36 ! ! + + + + + !GSV Ankle ! !0.35 ! ! + + + + + Superficial - Lesser Saphenous Vein Right Left + + + + + + -----+ + !Location ! !Diameter !Depth ! !Diameter !Depth ! + + + + + + -----+ + !SSV High Calf ! !0.27 ! ! + + + + + !SSV Mid Calf ! !0.28 ! ! + + + + + !SSV Low Calf ! !0.19 ! ! + + + + + Performing Organization Address City/State[facility] Phone Number [facility] HCI Arterial doppler leg, right (08/24/2018 4:08 PM SECOND TIME WORKER) Ejection Fraction [facility] [employer] [facility] Impressions Performed At Right Impression [facility] [employer] [facility] 1. The common femoral and profunda femoral arteries are patent with calcification, diffuse plaque and biphasic Doppler waveforms. 2. The femoral artery is patent throughout with an increased velocity at proximal of 213 cm/sec, a patent stent at the mid to distal segments, an increased velocity post stent distally of 151 cm/sec and biphasic Doppler waveforms throughout. 3. The popliteal artery is patent with calcification, diffuse plaque and biphasic Doppler waveforms. 4. The posterior tibial artery is patent at proximal and occluded at the mid and distal, with collaterals visualized. 5. The peroneal artery is paten throughout. 6. The anterior tibial artery is patent throughout with a >50% stenosis at mid with a velocity of 267 cm/sec. 2. The PT pressure is >255 mmHg with an VINNIE of non compressible and the DP pressure is 175 mmHg with an VINNIE of 1.07, within normal range but possibly falsely elevate due to calcification and abnormal waveform. 3. TBI could not obtained due to amputation of first digit. 4. The second and third digits had decreased flow by PPG waveforms. 5. The fourth and fifth digits could not be visualized due to dressing. Left Impression FOR COMPARISON ONLY: 1. The PT pressure is >255 mmHg with an VINNIE of non compressible and the DP pressure is >255 mmHg with an VINNEI of non compressible. 2. The great toe pressure is 80 mmHg with an abnormal TBI of 0.49. 3. The digits have adequate flow by PPG waveforms. Conclusions Summary Arterial pressures and Doppler analysis were performed on the right lower extremity. The right common femoral, profunda femoral, femoral, popliteal and peroneal arteries were patent with diffuse plaque and calcification throughout. The right mid to distal femoral artery stent was patent. The right mid to distal posterior tibial artery was occluded, with collaterals visualized. There was >50% stenosis of the mid anterior tibial artery. The right VINNIE's were in the non compressible(PT) and normal(DP) ranges, however the DP was most likely falsely normal due to calcification and abnormal waveforms. The left VINNIE's were non compressible. The right TBI was not obtained due to absence of digit. The left TBI was abnormal. The right second and third digits had decreased flow by PPG waveforms. The left digits had adequate flow by PPG waveforms. Signature Velocities are measured in cm/s ; Diameters are measured in cm LE Duplex Measurements Right Left + + + + + + + + + + !Location ! !PSV!EDV !Waveform ! !PSV !EDV !Waveform! + + + + + + + + + + !Mid Common Femoral ! !130! ! ! + + + + + + !Prox PFA ! !181! ! ! + + + + + + !Prox SFA ! !213! ! ! + + + + + + !Mid SFA ! !85.6 !! ! + + + + + + !Dist SFA ! !151! ! ! + + + + + + !Prox Popliteal ! !114! ! ! + + + + + + !Dist Popliteal ! !95.3 !! ! + + + + + + !Prox SEATING UPHOLSTERER ! !53.4 !! ! + + + + + + !Mid SEATING UPHOLSTERER ! !0! ! ! + + + + + + !Dist SEATING UPHOLSTERER ! !0! ! ! + + + + + + !Prox ALICIA ! !161! ! ! + + + + + + !Mid ALICIA ! !267! ! ! + + + + + + !Dist ALICIA ! !89.6 !! ! + + + + + + !Prox Peroneal ! !70.9 !! ! + + + + + + !Mid Peroneal ! !119! ! ! + + + + + + !Dist Peroneal ! !91.9 !! ! + + + + + + Narrative Performed At PV LAB - Lower Extremity Arterial Duplex [facility] ECHO HEARTLAB [facility] Demographics Patient NameSNADIR QUIÑONES Date of Study 08/24/2018 ANAYA 73 Visit [id number] Male of 1945 Referring [facility] Room Number 1819 Physician Bath Attendant Jannet MercedespreKhushi Soares [facility] Physician Procedure Type of Study: Extremities Arteries: Lower Extremities Arterial Duplex, ARTERIAL DOPPLER LEG, RIGHT. Indications for Study:Dry gangrene. Patient Status:Routine. Study Location:Vascular Lab. Technical Quality:Adequate visualization. Risk Factors History of Disease + +----+ + !Diagnosis !Date!Comments ! + +----+ + !History/Risk Factors: !!Parkinson's, PAD, DM, ESRD, HLD, HTN! + +----+ + Procedure Note Interface, External Ris In - 08/25/2018 5:12 PM SECOND TIME WORKER PV LAB - Lower Extremity Arterial Duplex Demographics Patient Name NADIR MENDEZ Date of Study 08/24/2018 ANAYA Age 73 Visit Number [id number] Gender Male Accession Number [id number] Date of 1945 Referring [facility] Room Number 1819 Physician Bath Attendant Jannet Chang Interpreting Sherry Soares [facility] Physician Procedure Type of Study: Extremities Arteries: Lower Extremities Arterial Duplex, ARTERIAL DOPPLER LEG, RIGHT. Indications for Study:Dry gangrene. Patient Status:Routine. Study Location:Vascular Lab. Technical Quality:Adequate visualization. Risk Factors History of Disease + +----+ + !Diagnosis !Date!Comments ! + +----+ + !History/Risk Factors: ! !Parkinson's, PAD, DM, ESRD, HLD, HTN ! + +----+ + Impressions Right Impression 1. The common femoral and profunda femoral arteries are patent with calcification, diffuse plaque and biphasic Doppler waveforms. 2. The femoral artery is patent throughout with an increased velocity at proximal of 213 cm/sec, a patent stent at the mid to distal segments, an increased velocity post stent distally of 151 cm/sec and biphasic Doppler waveforms throughout. 3. The popliteal artery is patent with calcification, diffuse plaque and biphasic Doppler waveforms. 4. The posterior tibial artery is patent at proximal and occluded at the mid and distal, with collaterals visualized. 5. The peroneal artery is paten throughout. 6. The anterior tibial artery is patent throughout with a >50% stenosis at mid with a velocity of 267 cm/sec. 2. The PT pressure is >255 mmHg with an VINNIE of non compressible and the DP pressure is 175 mmHg with an VINNIE of 1.07, within normal range but possibly falsely elevate due to calcification and abnormal waveform. 3. TBI could not obtained due to amputation of first digit. 4. The second and third digits had decreased flow by PPG waveforms. 5. The fourth and fifth digits could not be visualized due to dressing. Left Impression FOR COMPARISON ONLY: 1. The PT pressure is >255 mmHg with an VINNIE of non compressible and the DP pressure is >255 mmHg with an VINNIE of non compressible. 2. The great toe pressure is 80 mmHg with an abnormal TBI of 0.49. 3. The digits have adequate flow by PPG waveforms. Conclusions Summary Arterial pressures and Doppler analysis were performed on the right lower extremity. The right common femoral, profunda femoral, femoral, popliteal and peroneal arteries were patent with diffuse plaque and calcification throughout. The right mid to distal femoral artery stent was patent. The right mid to distal posterior tibial artery was occluded, with collaterals visualized. There was >50% stenosis of the mid anterior tibial artery. The right VINNIE's were in the non compressible(PT) and normal(DP) ranges, however the DP was most likely falsely normal due to calcification and abnormal waveforms. The left VINNIE's were non compressible. The right TBI was not obtained due to absence of digit. The left TBI was abnormal. The right second and third digits had decreased flow by PPG waveforms. The left digits had adequate flow by PPG waveforms. Signature Velocities are measured in cm/s ; Diameters are measured in cm LE Duplex Measurements Right Left + + + -------+ + + + +-------- + + !Location ! !PSV !EDV !Waveform ! !PSV !EDV !Waveform ! + + + -------+ + + + +-------- + + !Mid Common Femoral ! !130 ! ! ! + + + -------+ + + !Prox PFA ! !181 ! ! ! + + + -------+ + + !Prox SFA ! !213 ! ! ! + + + -------+ + + !Mid SFA ! !85.6 ! ! ! + + + -------+ + + !Dist SFA ! !151 ! ! ! + + + -------+ + + !Prox Popliteal ! !114 ! ! ! + + + -------+ + + !Dist Popliteal ! !95.3 ! ! ! + + + -------+ + + !Prox SEATING UPHOLSTERER ! !53.4 ! ! ! + + + -------+ + + !Mid SEATING UPHOLSTERER ! !0 ! ! ! + + + -------+ + + !Dist SEATING UPHOLSTERER ! !0 ! ! ! + + + -------+ + + !Prox ALICIA ! !161 ! ! ! + + + -------+ + + !Mid ALICIA ! !267 ! ! ! + + + -------+ + + !Dist ALICIA ! !89.6 ! ! ! + + + -------+ + + !Prox Peroneal ! !70.9 ! ! ! + + + -------+ + + !Mid Peroneal ! !119 ! ! ! + + + -------+ + + !Dist Peroneal ! !91.9 ! ! ! + + + -------+ + + Performing Organization Address City/[facility]/Zipcode Phone Number [facility] E[facility] HEART[facility]ACS Reticulocyte count (08/24/2018 3:55 AM SECOND TIME WORKER) % Retic 2.0 (H) 0.5 - 1.8 % [facility] Specimen Blood - Arm, Right Performing Organization Address [facility]/Zipcode Phone Number [facility] [address] [place] [address] CENTER HEMODIALYSIS INPATIENT (08/23/2018 11:33 AM SECOND TIME WORKER) Narrative Performed At Holley Ram RN 08/23/2018 11:37 AM Dialyzed for 4hrs. UF net 2L. Vss. Alert, oriented x3. Report given to Maya PHILIP XR chest 1 view portable / bedside (08/22/2018 6:40 PM SECOND TIME WORKER) Narrative Performed At FINAL REPORT [facility] INDICATION: Cough COMPARISON: None. TECHNIQUE: Chest radiograph, single view, portable technique. FINDINGS / IMPRESSION: There is no discrete consolidation that would indicate pneumonia. Heart shadow is prominent which may be related to portable technique. No pulmonary edema or pleural effusion demonstrated. No pneumothorax. Left subclavian and axillary stent is noted. Osseous structures unremarkable. Signed: Rian Shelley MD Report Verified Date/Time:08/22/2018 19:51:52 Reading Location: [facility] [id number] Consult Reading Room Procedure Note Interface, External Ris In - 08/22/2018 7:54 PM SECOND TIME WORKER FINAL REPORT INDICATION: Cough COMPARISON: None. TECHNIQUE: Chest radiograph, single view, portable technique. FINDINGS / IMPRESSION: There is no discrete consolidation that would indicate pneumonia. Heart shadow is prominent which may be related to portable technique. No pulmonary edema or pleural effusion demonstrated. No pneumothorax. Left subclavian and axillary stent is noted. Osseous structures unremarkable. Signed: Rian Shelley MD Report Verified Date/Time: 08/22/2018 19:51:52 Reading Location: [facility] C013 Consult Reading Room Performing Organization Address City/State/Zipcode Phone Number RIS Hepatitis B surface antigen (08/22/2018 12:50 PM SECOND TIME WORKER) hepatitis B Surface Ag NON-REACTIVE Nonreactive [facility] Specimen Blood - Arm, Right Performing Organization Address City/State/Zipcode Phone Number [address] [address] CENTER PT/aPTT (08/22/2018 3:38 AM SECOND TIME WORKER) Protime 16.0 (H) 11.7 - 14.7 seconds [facility] INR 1.3 <=5.9 [facility] PTT 51.1 (H) 22.5 - 36.0 seconds [facility] Specimen Blood Narrative Performed At RECOMMENDED COUMADIN/WARFARIN INR THERAPY [facility] RANGES STANDARD DOSE: 2.0 - 3.0 Includes: PROPHYLAXIS for venous thrombosis, systemic embolization; TREATMENT for venous thrombosis and/or pulmonary embolus. HIGH RISK: Target INR is 2.5-3.5 for patients with mechanical heart valves. Performing Organization Address City/State/Zipcode Phone Number GIS[facility] [address] [place] [address] CENTER after 10/13/2017 Insurance Payer Benefit Plan / Group Subscriber ID Type Phone Address CARE IMPROVEMENT MEDICARE CARE IMPROVEMENT PLUS xxxxxxxxx [facility] CARE MEDICAID MEDICAID [place] xxxxxxxxx Medicaid ([place]) [place] [address] Advance Directives Patient has advance care planning documents, and code status on file. For more information, please contact:GISSELLE Carlson [address] [phone] Code Status Date Activated Date Inactivated Comments Full Code 08/30/2018 5:03 PM This code status was determined by: Patient Full Code 08/22/2018 1:56 AM 08/30/2018 5:03 PM This code status was determined by: Patient Full Code 09/15/2017 11:54 PM 09/18/2017 7:40 AM This code status was determined by: Patient
--- OUTSIDE RECORDS SUMMARY | 2018-10-14 09:55 | XMS REPORT ---
:1945 [facility] Address [address] [place] [address] Dr. Aviles [address] [place] [id number] Care Team Providers Name Role Phone RICHELLE LOPEZ Unavailable Unavailable DERIK ANN YOUNG Unavailable Unavailable Problems This patient has no known problems. Allergies, Adverse Reactions, Alerts This patient has no known allergies or adverse reactions. Medications This patient has no known medications. Results Test Description Test Time Test Comments Text Results Atomic Results Result Comments FUNGUS CULTURE + SMEAR 2018-10-08 16:39:00 Test Item Value Reference Range Comments CULTURE (BEAKER) (test nyol=6274) No fungus isolated in 28 days FUNGUS SMEAR (BEAKER) (test tmlp=5987) No fungi seen FUNGUS CULTURE + [id number] 16:39:00 Test Item Value Reference Range Comments CULTURE (BEAKER) (test No fungus isolated in 28 days pznv=9537) FUNGUS SMEAR (BEAKER) (test No fungi seen bfeh=6272) FUNGUS CULTURE + [id number] 16:39:00 Test Item Value Reference Range Comments CULTURE (BEAKER) (test No fungus isolated in 28 days dqov=9318) FUNGUS SMEAR (BEAKER) (test No fungi seen pztc=9049) TISSUE [id number] 20:00:00Surgical Pathology Report Case: [id number] Authorizing Provider: Aba Millan DPM Collected: 09/13/2018819 Ordering Location: [facility] PERI[facility] Received: 09/13/2018 09 SERVICES Pathologist: Carrol Trammell MD Specimen: Metatarsal, Right BONE, RIGHT FOOT , METATARSAL, DEBRIDEMENT:- GANGRENOUS NECROSIS- OSTEOMYELITIS- NEGATIVE FOR MALIGNANCY Signing Pathologist Direct Phone Line: [phone] signed by Carrol Trammell MD on 2018 at 8:00 [id number] surgical woundRight metatarsal. Specimen is received in formalin-filled container labeled with the patient's information and labeled "right metatarsal" and consists of multiple fragments of ch hemorrhagic bone and soft tissue measuring 2.5 x 2 x 1 cm in aggregate. Specimen is sectioned and submitted entirely A1-A4 for decalcification. CG/bc Performed.POCT-GLUCOSE [id number] 13:34:00 Test Item Value Reference Range Comments POC-GLUCOSE METER (BEAKER) 148 mg/dL 70-110 TESTED AT [address] (test mllj=5587) [place] [address] POCT-GLUCOSE [id number] 08:11:00 Test Item Value Reference Range Comments POC-GLUCOSE METER (BEAKER) 139 mg/dL 70-110 TESTED AT [address] (test yvcl=9544) [place] [address] BASIC METABOLIC [id number] 04:47:00 Test Item Value Reference Range Comments SODIUM (BEAKER) (test 136 meq/L 136-145 uxio=252) POTASSIUM (BEAKER) (test 4.3 meq/L 3.5-5.1 cnkh=906) CHLORIDE (BEAKER) (test 97 meq/L 98-107 hwzt=109) CO2 (BEAKER) (test 27 meq/L 22-29 kiyg=361) BLOOD UREA NITROGEN 43 mg/dL 7-21 (BEAKER) (test wzkv=807) CREATININE (BEAKER) (test 5.04 mg/dL 0.57-1.25 dhiv=129) GLUCOSE RANDOM (BEAKER) 94 mg/dL 70-105 (test zipw=641) CALCIUM (BEAKER) (test 8.7 mg/dL 8.4-10.2 jchl=700) EGFR (BEAKER) (test 11 mL/min/1.73 sq m ESTIMATED GFR IS NOT xkxb=9631) ACCURATE CREATININE CLEARANCE IN PREDICTING GLOMERULAR FILTRATION RATE. ESTIMATED GFR IS NOT APPLICABLE FOR DIALYSIS PATIENTS. [id number] 04:46:00 Test Item Value Reference Range Comments PHOSPHORUS (BEAKER) (test mujf=164) 3.2 mg/dL 2.3-4.7 [id number] 04:46:00 Test Item Value Reference Range Comments MAGNESIUM (BEAKER) (test zzep=422) 2.1 mg/dL 1.6-2.6 CBC W/PLT COUNT & AUTO [id number] 04:39:00 Test Item Value Reference Range Comments WHITE BLOOD CELL COUNT (BEAKER) (test wdin=657) 7.8 K/ L 3.5-10.5 RED BLOOD CELL COUNT (BEAKER) (test abee=855) 2.72 M/ L 4.63-6.08 HEMOGLOBIN (BEAKER) (test fjbc=502) 8.9 GM/DL 13.7-17.5 HEMATOCRIT (BEAKER) (test jkwu=425) 27.9 % 40.1-51.0 MEAN CORPUSCULAR VOLUME (BEAKER) (test jwfk=843) 102.6 fL 79.0-92.2 MEAN CORPUSCULAR HEMOGLOBIN (BEAKER) (test 32.7 pg 25.7-32.2 uzde=321) MEAN CORPUSCULAR HEMOGLOBIN CONC (BEAKER) (test 31.9 GM/DL 32.3-36.5 xnjj=881) RED CELL DISTRIBUTION WIDTH (BEAKER) (test 17.2 % 11.6-14.4 usoo=880) PLATELET COUNT (BEAKER) (test udqh=666) 244 K/CU MM 150-450 MEAN PLATELET VOLUME (BEAKER) (test rokk=900) 11.2 fL 9.4-12.4 NUCLEATED RED BLOOD CELLS (BEAKER) (test 0 /100 WBC 0-0 ynqe=087) NEUTROPHILS RELATIVE PERCENT (BEAKER) (test 62 % gqqs=749) LYMPHOCYTES RELATIVE PERCENT (BEAKER) (test 19 % iazn=035) MONOCYTES RELATIVE PERCENT (BEAKER) (test 10 % snuw=610) EOSINOPHILS RELATIVE PERCENT (BEAKER) (test 7 % ejdg=285) BASOPHILS RELATIVE PERCENT (BEAKER) (test 1 % ddya=132) NEUTROPHILS ABSOLUTE COUNT (BEAKER) (test 4.83 K/ L 1.78-5.38 ekhq=418) LYMPHOCYTES ABSOLUTE COUNT (BEAKER) (test 1.49 K/ L 1.32-3.57 eqat=345) MONOCYTES ABSOLUTE COUNT (BEAKER) (test 0.80 K/ L 0.30-0.82 khtm=799) EOSINOPHILS ABSOLUTE COUNT (BEAKER) (test 0.51 K/ L 0.04-0.54 mzwh=662) BASOPHILS ABSOLUTE COUNT (BEAKER) (test 0.05 K/ L 0.01-0.08 wvdo=852) IMMATURE GRANULOCYTES-RELATIVE PERCENT (BEAKER) 1 % 0-1 (test azlf=9195) POCT-GLUCOSE [id number] 21:35:00 Test Item Value Reference Range Comments POC-GLUCOSE METER (BEAKER) 181 mg/dL 70-110 TESTED AT [address] (test osaf=2294) [facility] [address] POCT-GLUCOSE [id number] 17:58:00 Test Item Value Reference Range Comments POC-GLUCOSE METER (BEAKER) 166 mg/dL 70-110 TESTED AT [address] (test bctc=7777) [facility] [address] POCT-GLUCOSE [id number] 12:45:00 Test Item Value Reference Range Comments POC-GLUCOSE METER (BEAKER) 146 mg/dL 70-110 TESTED AT [address] (test qfwt=4578) [facility] [address] POCT-GLUCOSE [id number] 08:59:00 Test Item Value Reference Range Comments POC-GLUCOSE METER (BEAKER) 158 mg/dL 70-110 TESTED AT [address] (test qajg=6814) [facility] [address] [id number] 05:22:00 Test Item Value Reference Range Comments PHOSPHORUS (BEAKER) (test vokv=534) 2.5 mg/dL 2.3-4.7 [id number] 05:22:00 Test Item Value Reference Range Comments MAGNESIUM (BEAKER) (test gady=286) 2.0 mg/dL 1.6-2.6 CBC W/PLT COUNT & AUTO [id number] 05:03:00 Test Item Value Reference Range Comments WHITE BLOOD CELL COUNT (BEAKER) (test qfli=333) 8.2 K/ L 3.5-10.5 RED BLOOD CELL COUNT (BEAKER) (test phpy=083) 2.70 M/ L 4.63-6.08 HEMOGLOBIN (BEAKER) (test teym=542) 8.8 GM/DL 13.7-17.5 HEMATOCRIT (BEAKER) (test htxz=625) 28.2 % 40.1-51.0 MEAN CORPUSCULAR VOLUME (BEAKER) (test thwf=155) 104.4 fL 79.0-92.2 MEAN CORPUSCULAR HEMOGLOBIN (BEAKER) (test 32.6 pg 25.7-32.2 larf=578) MEAN CORPUSCULAR HEMOGLOBIN CONC (BEAKER) (test 31.2 GM/DL 32.3-36.5 cwrg=103) RED CELL DISTRIBUTION WIDTH (BEAKER) (test 17.4 % 11.6-14.4 xsxe=842) PLATELET COUNT (BEAKER) (test ljrg=612) 255 K/CU MM 150-450 MEAN PLATELET VOLUME (BEAKER) (test lcvh=390) 11.1 fL 9.4-12.4 NUCLEATED RED BLOOD CELLS (BEAKER) (test 0 /100 WBC 0-0 pehh=857) NEUTROPHILS RELATIVE PERCENT (BEAKER) (test 68 % iydu=387) LYMPHOCYTES RELATIVE PERCENT (BEAKER) (test 15 % byra=141) MONOCYTES RELATIVE PERCENT (BEAKER) (test 10 % pfao=785) EOSINOPHILS RELATIVE PERCENT (BEAKER) (test 6 % dpyz=022) BASOPHILS RELATIVE PERCENT (BEAKER) (test 1 % varh=789) NEUTROPHILS ABSOLUTE COUNT (BEAKER) (test 5.50 K/ L 1.78-5.38 lpen=398) LYMPHOCYTES ABSOLUTE COUNT (BEAKER) (test 1.25 K/ L 1.32-3.57 beki=285) MONOCYTES ABSOLUTE COUNT (BEAKER) (test 0.85 K/ L 0.30-0.82 zham=175) EOSINOPHILS ABSOLUTE COUNT (BEAKER) (test 0.46 K/ L 0.04-0.54 wsve=309) BASOPHILS ABSOLUTE COUNT (BEAKER) (test 0.04 K/ L 0.01-0.08 ndsc=235) IMMATURE GRANULOCYTES-RELATIVE PERCENT (BEAKER) 1 % 0-1 (test opes=4923) POCT-GLUCOSE [id number] 21:29:00 Test Item Value Reference Range Comments POC-GLUCOSE METER (BEAKER) 175 mg/dL 70-110 TESTED AT [address] (test awpb=7455) [place] [id number] POCT-GLUCOSE [id number] 17:57:00 Test Item Value Reference Range Comments POC-GLUCOSE METER (BEAKER) 171 mg/dL 70-110 TESTED AT [address] (test tjsc=0763) [facility] [address] POCT-GLUCOSE [id number] 13:43:00 Test Item Value Reference Range Comments POC-GLUCOSE METER (JACLYN) 189 mg/dL 70-110 TESTED AT [facility] [address] (test ffzy=5082) [facility] [address] TISSUE [id number] 13:19:00Surgical Pathology Report Case: [id number] Authorizing Provider: Aba Millan DPM Collected: 09/07/201837 Ordering Location: [address] Received: 09/09/2018 0839 Service Pathologist: Rober Hicks MD Specimen: Foot, Right, right foot amputation FOOT, RIGHT, DISTAL AMPUTATION: GANGRENOUS NECROSIS OF SKIN AND SOFT TISSUE.UNDERLYING ACUTE AND CHRONIC OSTEOMYELITISCALCIFIC ATHEROSCLEROSIS.RESECTION MARGINS VIABLE.SPECIAL STAINS FOR FUNGAL ORGANISMS (GMS, PAS) ARE NEGATIVE. Signing Pathologist Direct Phone Line: [phone] signed by Rober Hicks MD on at 1:19 [id number] x2Open wound of right lower extremity Right foot amputationReceived in formalin labeled with the patient's name, medical record number and "right foot" is an 8.5 cm in length x 8.0 cm in diameter x up to 3.0 cm in height ch-white distal foot amputation with attached four toes which display yellow thickened toenail. The great toe is not present.The resection margin displays up to 3.3 cm exposed soft tissue and bone. The skin and soft tissue at the resection margin are predominantly viable. The bone at the resection margin appears to be viable. The medial aspect of the specimen displays a 6.0 x 4.0 x 0.1 cm dark brown to black ulcer which extends to involve the skin and soft tissue resection margin. Sectioning of the ulcer reveals black necrotic cut surface with soft underlying bone. Additionally received in the same container, is a 6.0x 2.0 x 1.0 cm detached piece of skin and soft tissue. The skin is ch-white and unremarkable. Also received in the same container, is a 4.5 x 1.0 x 1.0 cm dark brown to black piece of soft tissue. Sectioning reveals dark brown necrotic cut surface. Contract Administration Manager sections are submitted as follows: A1- skin and soft tissue at resection margin ; A2- bone at resection margin following decalcification; A3- skin at resection margin to include ulcer; A4- ulcer with underlying bone following decalcification; A5- section to include underlying vessels; A7- medical device sales representative of the detached pieces of tissue. SA/bc Performed.The interpretation of this case included the use of immunohistochemistry or special stains. BLOCK A3- GMS, PASImmunohistochemistry technical testing was performed at [facility] where it was developed and its performance characteristics weredetermined. It has not been cleared or approved by the U.S. Food and Drug Administration. The FDA has determined that such clearance or approval is not necessary. The test is used for clinical purposes. It should not be regarded as investigational or for research. This laboratory is certified under the Clinical Laboratory Improvement Amendments of 1988 (CLIA- 88) as qualified to perform high complexity clinical laboratory testing.BASIC METABOLIC [id number] 10:39:00 Test Item Value Reference Range Comments SODIUM (BEAKER) (test 138 meq/L 136-145 cshf=256) POTASSIUM (BEAKER) (test 4.8 meq/L 3.5-5.1 hvus=407) CHLORIDE (BEAKER) (test 99 meq/L 98-107 uttl=040) CO2 (BEAKER) (test 28 meq/L 22-29 jwtk=606) BLOOD UREA NITROGEN 46 mg/dL 7-21 (BEAKER) (test zacm=446) CREATININE (BEAKER) (test 5.96 mg/dL 0.57-1.25 yqgi=890) GLUCOSE RANDOM (BEAKER) 93 mg/dL 70-105 (test rwtb=703) CALCIUM (BEAKER) (test 8.5 mg/dL 8.4-10.2 ywyv=688) EGFR (BEAKER) (test 9 mL/min/1.73 sq m ESTIMATED GFR IS NOT iatb=2184) ACCURATE CREATININE CLEARANCE IN PREDICTING GLOMERULAR FILTRATION RATE. ESTIMATED GFR IS NOT APPLICABLE FOR DIALYSIS PATIENTS. POCT-GLUCOSE [id number] 07:45:00 Test Item Value Reference Range Comments POC-GLUCOSE METER (BEAKER) 127 mg/dL 70-110 TESTED AT [facility] [address] [facility] (test ouee=9562) [facility] [address] [id number] 06:16:00 Test Item Value Reference Range Comments PHOSPHORUS (BEAKER) (test jjhv=769) 4.1 mg/dL 2.3-4.7 [id number] 06:16:00 Test Item Value Reference Range Comments MAGNESIUM (BEAKER) (test ppje=655) 2.0 mg/dL 1.6-2.6 CBC W/PLT COUNT & AUTO [id number] 05:30:00 Test Item Value Reference Range Comments WHITE BLOOD CELL COUNT (BEAKER) (test nvqf=536) 9.1 K/ L 3.5-10.5 RED BLOOD CELL COUNT (BEAKER) (test wriv=168) 2.70 M/ L 4.63-6.08 HEMOGLOBIN (BEAKER) (test wjzm=284) 8.8 GM/DL 13.7-17.5 HEMATOCRIT (BEAKER) (test rfdw=350) 28.2 % 40.1-51.0 MEAN CORPUSCULAR VOLUME (BEAKER) (test zcpx=878) 104.4 fL 79.0-92.2 MEAN CORPUSCULAR HEMOGLOBIN (BEAKER) (test 32.6 pg 25.7-32.2 vdqb=680) MEAN CORPUSCULAR HEMOGLOBIN CONC (BEAKER) (test 31.2 GM/DL 32.3-36.5 qvjy=786) RED CELL DISTRIBUTION WIDTH (BEAKER) (test 17.2 % 11.6-14.4 krqj=981) PLATELET COUNT (BEAKER) (test chdo=436) 238 K/CU MM 150-450 MEAN PLATELET VOLUME (BEAKER) (test ldsr=558) 10.6 fL 9.4-12.4 NUCLEATED RED BLOOD CELLS (BEAKER) (test 0 /100 WBC 0-0 qsdm=462) NEUTROPHILS RELATIVE PERCENT (BEAKER) (test 69 % cnmv=927) LYMPHOCYTES RELATIVE PERCENT (BEAKER) (test 15 % mvjw=936) MONOCYTES RELATIVE PERCENT (BEAKER) (test 9 % ytwp=934) EOSINOPHILS RELATIVE PERCENT (BEAKER) (test 7 % dhrl=373) BASOPHILS RELATIVE PERCENT (BEAKER) (test 0 % zuvf=762) NEUTROPHILS ABSOLUTE COUNT (BEAKER) (test 6.25 K/ L 1.78-5.38 tkbt=196) LYMPHOCYTES ABSOLUTE COUNT (BEAKER) (test 1.36 K/ L 1.32-3.57 fhtu=303) MONOCYTES ABSOLUTE COUNT (BEAKER) (test 0.78 K/ L 0.30-0.82 hksk=244) EOSINOPHILS ABSOLUTE COUNT (BEAKER) (test 0.61 K/ L 0.04-0.54 cxtu=159) BASOPHILS ABSOLUTE COUNT (BEAKER) (test 0.04 K/ L 0.01-0.08 bebw=840) IMMATURE GRANULOCYTES-RELATIVE PERCENT (BEAKER) 1 % 0-1 (test uzqs=5694) POCT-GLUCOSE [id number] 21:26:00 Test Item Value Reference Range Comments POC-GLUCOSE METER (BEAKER) 117 mg/dL 70-110 TESTED AT [address] (test scyb=8440) [place] [id number] POCT-GLUCOSE [id number] 17:29:00 Test Item Value Reference Range Comments POC-GLUCOSE METER (BEAKER) 212 mg/dL 70-110 TESTED AT [address] (test lulz=8222) [place] [id number] POCT-GLUCOSE [id number] 11:33:00 Test Item Value Reference Range Comments POC-GLUCOSE METER (BEAKER) 185 mg/dL 70-110 TESTED AT [address] (test mxcb=9834) [facility] [address] RAD, FOOT, MIN 3 VIEWS, [id number] 08:28:00Reason for exam:->s/p amputationFINAL REPORT RIGHT FOOT 3 VIEWS HISTORY: Status post amputation COMPARISON: Right foot radiograph of 09/04/2018 FINDINGS : AP, oblique, and lateral views of the right foot were obtained. Interval transmetatarsal amputation of the forefoot at the level of the proximal metatarsals. No radiographic evidence of osteomyelitis in the metatarsal remnants. No radiographic evidence of osteomyelitis in the remainder of the foot. There are internal fixation screws in the medial malleolus. Arterial calcifications are present. Signed: Ciara Huffman Verified Date/Time: 09/15/201808:28:29 Reading Location: [facility] C013T Transitional Reading Room POCT- GLUCOSE [id number] 08:02:00 Test Item Value Reference Range Comments POC-GLUCOSE METER (BEAKER) 171 mg/dL 70-110 TESTED AT [facility] [address] (test oyby=6649) [place] [address] [id number] 06:39:00 Test Item Value Reference Range Comments PHOSPHORUS (BEAKER) (test ncal=739) 3.4 mg/dL 2.3-4.7 [id number] 06:39:00 Test Item Value Reference Range Comments MAGNESIUM (BEAKER) (test jnss=285) 2.1 mg/dL 1.6-2.6 CBC W/PLT COUNT & AUTO [id number] 05:38:00 Test Item Value Reference Range Comments WHITE BLOOD CELL COUNT (BEAKER) (test lzof=634) 8.4 K/ L 3.5-10.5 RED BLOOD CELL COUNT (BEAKER) (test mtbo=896) 2.64 M/ L 4.63-6.08 HEMOGLOBIN (BEAKER) (test ffde=094) 8.7 GM/DL 13.7-17.5 HEMATOCRIT (BEAKER) (test rwek=659) 27.7 % 40.1-51.0 MEAN CORPUSCULAR VOLUME (BEAKER) (test amxr=285) 104.9 fL 79.0-92.2 MEAN CORPUSCULAR HEMOGLOBIN (BEAKER) (test 33.0 pg 25.7-32.2 nwia=520) MEAN CORPUSCULAR HEMOGLOBIN CONC (BEAKER) (test 31.4 GM/DL 32.3-36.5 qnym=401) RED CELL DISTRIBUTION WIDTH (BEAKER) (test 17.3 % 11.6-14.4 xucy=715) PLATELET COUNT (BEAKER) (test xpol=488) 238 K/CU MM 150-450 MEAN PLATELET VOLUME (BEAKER) (test cifh=934) 11.4 fL 9.4-12.4 NUCLEATED RED BLOOD CELLS (BEAKER) (test 0 /100 WBC 0-0 xcma=881) NEUTROPHILS RELATIVE PERCENT (BEAKER) (test 65 % lclz=153) LYMPHOCYTES RELATIVE PERCENT (BEAKER) (test 16 % kmgn=038) MONOCYTES RELATIVE PERCENT (BEAKER) (test 12 % pziz=045) EOSINOPHILS RELATIVE PERCENT (BEAKER) (test 6 % lxph=529) BASOPHILS RELATIVE PERCENT (BEAKER) (test 1 % jsmw=628) NEUTROPHILS ABSOLUTE COUNT (BEAKER) (test 5.50 K/ L 1.78-5.38 ydhi=220) LYMPHOCYTES ABSOLUTE COUNT (BEAKER) (test 1.33 K/ L 1.32-3.57 qqox=553) MONOCYTES ABSOLUTE COUNT (BEAKER) (test 1.01 K/ L 0.30-0.82 pfmt=667) EOSINOPHILS ABSOLUTE COUNT (BEAKER) (test 0.47 K/ L 0.04-0.54 wuto=743) BASOPHILS ABSOLUTE COUNT (BEAKER) (test 0.05 K/ L 0.01-0.08 xzjn=622) IMMATURE GRANULOCYTES-RELATIVE PERCENT (BEAKER) 1 % 0-1 (test uhhn=3411) POCT-GLUCOSE [id number] 21:37:00 Test Item Value Reference Range Comments POC-GLUCOSE METER (BEAKER) 203 mg/dL 70-110 TESTED AT [address] (test tfuh=0574) [facility] [address] POCT-GLUCOSE [id number] 17:17:00 Test Item Value Reference Range Comments POC-GLUCOSE METER (BEAKER) 135 mg/dL 70-110 TESTED AT [address] (test cche=2039) [facility] [address] POCT-GLUCOSE [id number] 13:16:00 Test Item Value Reference Range Comments POC-GLUCOSE METER (BEAKER) 177 mg/dL 70-110 TESTED AT [address] (test ezzq=4400) [facility] [address] POCT-GLUCOSE [id number] 07:55:00 Test Item Value Reference Range Comments POC-GLUCOSE METER (BEAKER) 136 mg/dL 70-110 TESTED AT [address] (test qqqy=8443) [facility] [address] BASIC METABOLIC [id number] 05:47:00 Test Item Value Reference Range Comments SODIUM (BEAKER) (test 139 meq/L 136-145 wcks=334) POTASSIUM (BEAKER) (test 4.3 meq/L 3.5-5.1 uyen=557) CHLORIDE (BEAKER) (test 102 meq/L 98-107 chrn=196) CO2 (BEAKER) (test 30 meq/L 22-29 aein=168) BLOOD UREA NITROGEN 21 mg/dL 7-21 (BEAKER) (test gojp=624) CREATININE (BEAKER) (test 3.49 mg/dL 0.57-1.25 kpkj=235) GLUCOSE RANDOM (BEAKER) 119 mg/dL 70-105 (test brme=103) CALCIUM (BEAKER) (test 8.7 mg/dL 8.4-10.2 cigr=397) EGFR (BEAKER) (test 17 mL/min/1.73 sq m ESTIMATED GFR IS NOT buas=5604) ACCURATE CREATININE CLEARANCE IN PREDICTING GLOMERULAR FILTRATION RATE. ESTIMATED GFR IS NOT APPLICABLE FOR DIALYSIS PATIENTS. [id number] 04:09:00 Test Item Value Reference Range Comments PHOSPHORUS (BEAKER) (test fmue=488) 2.8 mg/dL 2.3-4.7 [id number] 04:09:00 Test Item Value Reference Range Comments MAGNESIUM (BEAKER) (test uoom=236) 1.9 mg/dL 1.6-2.6 CBC W/PLT COUNT & AUTO [id number] 03:46:00 Test Item Value Reference Range Comments WHITE BLOOD CELL COUNT (BEAKER) (test yvyg=732) 7.6 K/ L 3.5-10.5 RED BLOOD CELL COUNT (BEAKER) (test mjvu=616) 2.78 M/ L 4.63-6.08 HEMOGLOBIN (BEAKER) (test pfas=287) 9.0 GM/DL 13.7-17.5 HEMATOCRIT (BEAKER) (test maby=778) 29.2 % 40.1-51.0 MEAN CORPUSCULAR VOLUME (BEAKER) (test kpah=832) 105.0 fL 79.0-92.2 MEAN CORPUSCULAR HEMOGLOBIN (BEAKER) (test 32.4 pg 25.7-32.2 psxa=107) MEAN CORPUSCULAR HEMOGLOBIN CONC (BEAKER) (test 30.8 GM/DL 32.3-36.5 csqq=705) RED CELL DISTRIBUTION WIDTH (BEAKER) (test 17.1 % 11.6-14.4 zkkr=173) PLATELET COUNT (BEAKER) (test ttfo=330) 209 K/CU MM 150-450 MEAN PLATELET VOLUME (BEAKER) (test mlsy=509) 11.1 fL 9.4-12.4 NUCLEATED RED BLOOD CELLS (BEAKER) (test 0 /100 WBC 0-0 tqwn=811) NEUTROPHILS RELATIVE PERCENT (BEAKER) (test 66 % wkam=826) LYMPHOCYTES RELATIVE PERCENT (BEAKER) (test 15 % pwsb=321) MONOCYTES RELATIVE PERCENT (BEAKER) (test 13 % myxu=812) EOSINOPHILS RELATIVE PERCENT (BEAKER) (test 5 % dlnq=970) BASOPHILS RELATIVE PERCENT (BEAKER) (test 1 % lzly=540) NEUTROPHILS ABSOLUTE COUNT (BEAKER) (test 4.95 K/ L 1.78-5.38 wyok=960) LYMPHOCYTES ABSOLUTE COUNT (BEAKER) (test 1.13 K/ L 1.32-3.57 dvxg=514) MONOCYTES ABSOLUTE COUNT (BEAKER) (test 0.99 K/ L 0.30-0.82 whec=991) EOSINOPHILS ABSOLUTE COUNT (BEAKER) (test 0.38 K/ L 0.04-0.54 zmna=170) BASOPHILS ABSOLUTE COUNT (BEAKER) (test 0.07 K/ L 0.01-0.08 cbwa=714) IMMATURE GRANULOCYTES-RELATIVE PERCENT (BEAKER) 1 % 0-1 (test vmrg=2245) POCT-GLUCOSE [id number] 22:47:00 Test Item Value Reference Range Comments POC-GLUCOSE METER (BEAKER) 165 mg/dL 70-110 TESTED AT [address] (test bekw=5791) [place] [address] POCT-GLUCOSE [id number] 19:32:00 Test Item Value Reference Range Comments POC-GLUCOSE METER (BEAKER) 159 mg/dL 70-110 TESTED AT [address] (test ogxt=3379) [place] [address] POCT-GLUCOSE [id number] 17:32:00 Test Item Value Reference Range Comments POC-GLUCOSE METER (BEAKER) 119 mg/dL 70-110 TESTED AT [address] (test otnw=9225) [place] [address] ANAEROBIC [id number] 16:45:00 Test Item Value Reference Range Comments CULTURE (BEAKER) (test <1+ Same organism has been isolated zewf=3079) from culture(s) of the same body site and collection date. Repeat identification performed only after consultation with the clinical microbiology laboratory.Refer to previous culture ofBacteroides species, not fragilis ANAEROBIC [id number] 16:42:00 Test Item Value Reference Range Comments CULTURE (BEAKER) (test 4+ Bacteroides species, not pfcp=5852) fragilis ANAEROBIC [id number] 16:37:00 Test Item Value Reference Range Comments CULTURE (BEAKER) (test 1+ Same organism has been isolated wmei=8807) from culture(s) of the same body site and collection date. Repeat identification performed only after consultation with the clinical microbiology laboratory.Refer to previous culture ofBacteroides species, not fragilis POCT-GLUCOSE [id number] 09:46:00 Test Item Value Reference Range Comments POC-GLUCOSE METER (BEAKER) 114 mg/dL 70-110 TESTED AT [facility] [address] [facility] (test madp=5189) [place] [id number] POCT-GLUCOSE [id number] 09:03:00 Test Item Value Reference Range Comments POC-GLUCOSE METER (BEAKER) 117 mg/dL 70-110 TESTED AT [address] (test vlpb=5558) [place] [id number] BASIC METABOLIC [id number] 06:08:00 Test Item Value Reference Range Comments SODIUM (BEAKER) (test 137 meq/L 136-145 vqqj=799) POTASSIUM (BEAKER) (test 4.3 meq/L 3.5-5.1 oydd=902) CHLORIDE (BEAKER) (test 99 meq/L 98-107 rgky=853) CO2 (BEAKER) (test 28 meq/L 22-29 fvav=160) BLOOD UREA NITROGEN 36 mg/dL 7-21 (BEAKER) (test pmrb=737) CREATININE (BEAKER) (test 5.01 mg/dL 0.57-1.25 tmlu=137) GLUCOSE RANDOM (BEAKER) 78 mg/dL 70-105 (test qqjd=946) CALCIUM (BEAKER) (test 8.9 mg/dL 8.4-10.2 oady=396) EGFR (BEAKER) (test 11 mL/min/1.73 sq m ESTIMATED GFR IS NOT madj=0337) ACCURATE CREATININE CLEARANCE IN PREDICTING GLOMERULAR FILTRATION RATE. ESTIMATED GFR IS NOT APPLICABLE FOR DIALYSIS PATIENTS. [id number] 06:04:00 Test Item Value Reference Range Comments PHOSPHORUS (BEAKER) (test hkbi=127) 3.9 mg/dL 2.3-4.7 [id number] 06:04:00 Test Item Value Reference Range Comments MAGNESIUM (BEAKER) (test lzod=839) 2.0 mg/dL 1.6-2.6 CBC W/PLT COUNT & AUTO [id number] 05:20:00 Test Item Value Reference Range Comments WHITE BLOOD CELL COUNT (BEAKER) (test tcpq=793) 8.3 K/ L 3.5-10.5 RED BLOOD CELL COUNT (BEAKER) (test cbvq=874) 3.03 M/ L 4.63-6.08 HEMOGLOBIN (BEAKER) (test fmsg=363) 9.7 GM/DL 13.7-17.5 HEMATOCRIT (BEAKER) (test xtfg=018) 30.9 % 40.1-51.0 MEAN CORPUSCULAR VOLUME (BEAKER) (test betg=081) 102.0 fL 79.0-92.2 MEAN CORPUSCULAR HEMOGLOBIN (BEAKER) (test 32.0 pg 25.7-32.2 aldx=620) MEAN CORPUSCULAR HEMOGLOBIN CONC (BEAKER) (test 31.4 GM/DL 32.3-36.5 jjhi=510) RED CELL DISTRIBUTION WIDTH (BEAKER) (test 16.7 % 11.6-14.4 efxv=768) PLATELET COUNT (BEAKER) (test pbrt=490) 238 K/CU MM 150-450 MEAN PLATELET VOLUME (BEAKER) (test vavn=942) 11.3 fL 9.4-12.4 NUCLEATED RED BLOOD CELLS (BEAKER) (test 0 /100 WBC 0-0 xiga=978) NEUTROPHILS RELATIVE PERCENT (BEAKER) (test 66 % wtva=260) LYMPHOCYTES RELATIVE PERCENT (BEAKER) (test 15 % jzhq=554) MONOCYTES RELATIVE PERCENT (BEAKER) (test 11 % cjiq=665) EOSINOPHILS RELATIVE PERCENT (BEAKER) (test 7 % gvwt=600) BASOPHILS RELATIVE PERCENT (BEAKER) (test 1 % fniw=665) NEUTROPHILS ABSOLUTE COUNT (BEAKER) (test 5.46 K/ L 1.78-5.38 umvc=294) LYMPHOCYTES ABSOLUTE COUNT (BEAKER) (test 1.21 K/ L 1.32-3.57 htms=348) MONOCYTES ABSOLUTE COUNT (BEAKER) (test 0.90 K/ L 0.30-0.82 nmre=382) EOSINOPHILS ABSOLUTE COUNT (BEAKER) (test 0.59 K/ L 0.04-0.54 oerh=079) BASOPHILS ABSOLUTE COUNT (BEAKER) (test 0.08 K/ L 0.01-0.08 iaaj=390) IMMATURE GRANULOCYTES-RELATIVE PERCENT (BEAKER) 0 % 0-1 (test zgxw=8638) POCT-GLUCOSE [id number] 21:31:00 Test Item Value Reference Range Comments POC-GLUCOSE METER (BEAKER) 102 mg/dL 70-110 TESTED AT [address] (test vgqt=1039) [facility] [address] POCT-GLUCOSE [id number] 18:22:00 Test Item Value Reference Range Comments POC-GLUCOSE METER (BEAKER) 119 mg/dL 70-110 TESTED AT [address] (test yhxm=1085) [place] [id number] POCT-GLUCOSE [id number] 13:19:00 Test Item Value Reference Range Comments POC-GLUCOSE METER (BEAKER) 169 mg/dL 70-110 TESTED AT [address] (test tprm=4702) [place] [id number] POCT-GLUCOSE [id number] 13:19:00 Test Item Value Reference Range Comments POC-GLUCOSE METER (BEAKER) 149 mg/dL 70-110 TESTED AT [address] (test bbtf=8553) [place] [id number] 05:26:00 Test Item Value Reference Range Comments PHOSPHORUS (BEAKER) (test nxia=317) 2.8 mg/dL 2.3-4.7 [id number] 05:26:00 Test Item Value Reference Range Comments MAGNESIUM (BEAKER) (test tttf=442) 2.0 mg/dL 1.6-2.6 CBC W/PLT COUNT & AUTO [id number] 05:06:00 Test Item Value Reference Range Comments WHITE BLOOD CELL COUNT (BEAKER) (test gvbe=181) 8.8 K/ L 3.5-10.5 RED BLOOD CELL COUNT (BEAKER) (test rwjp=393) 2.80 M/ L 4.63-6.08 HEMOGLOBIN (BEAKER) (test iabf=694) 9.2 GM/DL 13.7-17.5 HEMATOCRIT (BEAKER) (test gejs=649) 28.9 % 40.1-51.0 MEAN CORPUSCULAR VOLUME (BEAKER) (test sllc=503) 103.2 fL 79.0-92.2 MEAN CORPUSCULAR HEMOGLOBIN (BEAKER) (test 32.9 pg 25.7-32.2 yvqv=716) MEAN CORPUSCULAR HEMOGLOBIN CONC (BEAKER) (test 31.8 GM/DL 32.3-36.5 goaq=633) RED CELL DISTRIBUTION WIDTH (BEAKER) (test 16.9 % 11.6-14.4 oexn=913) PLATELET COUNT (BEAKER) (test wptb=880) 202 K/CU MM 150-450 MEAN PLATELET VOLUME (BEAKER) (test gynp=828) 11.4 fL 9.4-12.4 NUCLEATED RED BLOOD CELLS (BEAKER) (test 0 /100 WBC 0-0 thre=618) NEUTROPHILS RELATIVE PERCENT (BEAKER) (test 67 % bpkl=840) LYMPHOCYTES RELATIVE PERCENT (BEAKER) (test 14 % qtco=378) MONOCYTES RELATIVE PERCENT (BEAKER) (test 13 % dvcd=536) EOSINOPHILS RELATIVE PERCENT (BEAKER) (test 4 % mlzb=968) BASOPHILS RELATIVE PERCENT (BEAKER) (test 1 % zvmm=930) NEUTROPHILS ABSOLUTE COUNT (BEAKER) (test 5.89 K/ L 1.78-5.38 xcoh=768) LYMPHOCYTES ABSOLUTE COUNT (BEAKER) (test 1.25 K/ L 1.32-3.57 hkae=295) MONOCYTES ABSOLUTE COUNT (BEAKER) (test 1.13 K/ L 0.30-0.82 ifgk=886) EOSINOPHILS ABSOLUTE COUNT (BEAKER) (test 0.39 K/ L 0.04-0.54 afvk=840) BASOPHILS ABSOLUTE COUNT (BEAKER) (test 0.09 K/ L 0.01-0.08 jgsf=557) IMMATURE GRANULOCYTES-RELATIVE PERCENT (BEAKER) 1 % 0-1 (test pthc=0210) POCT-GLUCOSE [id number] 21:42:00 Test Item Value Reference Range Comments POC-GLUCOSE METER (BEAKER) 189 mg/dL 70-110 TESTED AT [facility] [address] (test slac=6785) [facility] [address] POCT-GLUCOSE [id number] 17:52:00 Test Item Value Reference Range Comments POC-GLUCOSE METER (BEAKER) 140 mg/dL 70-110 TESTED AT [address] (test ydwe=6732) [facility] [address] POCT-GLUCOSE [id number] 14:50:00 Test Item Value Reference Range Comments POC-GLUCOSE METER (BEAKER) 108 mg/dL 70-110 TESTED AT [address] (test pblc=1078) [place] [id number] POCT-GLUCOSE [id number] 13:07:00 Test Item Value Reference Range Comments POC-GLUCOSE METER (BEAKER) 139 mg/dL 70-110 TESTED AT [address] (test hmcf=7375) [place] [id number] VITAMIN B12 AND [id number] 12:59:00 Test Item Value Reference Range Comments VITAMIN B12 (BEAKER) (test jisp=513) 1098 pg/mL 213-816 FOLATE (BEAKER) (test lryq=264) 12.9 ng/mL >=7.0 SURGICALLY OBTAINED CULTURE + GRAM [id number] 09:25:00 Test Item Value Reference Range Comments CULTURE (BEAKER) (test KLEBSIELLA OXYTOCA 4+ Klebsiella opdq=3794) oxytocaESBL Positive Amikacin (test code=1) Ampicillin + Sulbactam (test code=6) Aztreonam (test code=32) Cefepime (test code=51) Cefoxitin (test code=68) Ceftazidime (test code=27) Ceftriaxone (test code=52) Ertapenem (test code=38) Gentamicin (test code=18) Levofloxacin (test code=22) Meropenem (test code=34) Nitrofurantoin (test code=23) Piperacillin + Tazobactam (test code=29) Tetracycline (test code=2) Tobramycin (test code=25) Trimethoprim + Sulfamethoxazole (test code=47) CULTURE (BEAKER) (test <1+ Same organism has kyhc=9773) been isolated from cultures(s) of the same body site and collection date. Repeat identification and susceptibility testing performed only after consultation with the clinical microbiology laboratory.Refer to previous culture ofAchromobacter species GRAM STAIN RESULT (BEAKER) <1+ WBCs (test tcwa=1058) GRAM STAIN RESULT (BEAKER) No organisms seen (test vbnv=159775) SURGICALLY OBTAINED CULTURE + GRAM [id number] 09:24:00 Test Item Value Reference Range Comments CULTURE (BEAKER) (test <1+ Achromobacter species swlc=4932) GRAM STAIN RESULT <1+ WBCs (BEAKER) (test ehfh=6559) GRAM STAIN RESULT No organisms seen (BEAKER) (test vots=652253) POCT-GLUCOSE [id number] 08:02:00 Test Item Value Reference Range Comments POC-GLUCOSE METER (BEAKER) 97 mg/dL 70-110 TESTED AT [facility] [address] [facility] (test djao=0553) [facility] [address] [id number] 07:07:00 Test Item Value Reference Range Comments PHOSPHORUS (BEAKER) (test geor=358) 3.1 mg/dL 2.3-4.7 [id number] 07:07:00 Test Item Value Reference Range Comments MAGNESIUM (BEAKER) (test drdm=862) 1.8 mg/dL 1.6-2.6 CBC W/PLT COUNT & AUTO [id number] 05:56:00 Test Item Value Reference Range Comments WHITE BLOOD CELL COUNT (BEAKER) (test rfln=597) 10.3 K/ L 3.5-10.5 RED BLOOD CELL COUNT (BEAKER) (test ontn=991) 2.78 M/ L 4.63-6.08 HEMOGLOBIN (BEAKER) (test fejj=912) 9.1 GM/DL 13.7-17.5 HEMATOCRIT (BEAKER) (test cnqo=603) 28.7 % 40.1-51.0 MEAN CORPUSCULAR VOLUME (BEAKER) (test uizw=691) 103.2 fL 79.0-92.2 MEAN CORPUSCULAR HEMOGLOBIN (BEAKER) (test 32.7 pg 25.7-32.2 meek=308) MEAN CORPUSCULAR HEMOGLOBIN CONC (BEAKER) (test 31.7 GM/DL 32.3-36.5 kprq=575) RED CELL DISTRIBUTION WIDTH (BEAKER) (test 17.1 % 11.6-14.4 mvau=437) PLATELET COUNT (BEAKER) (test owtu=288) 206 K/CU MM 150-450 MEAN PLATELET VOLUME (BEAKER) (test acye=947) 11.9 fL 9.4-12.4 NUCLEATED RED BLOOD CELLS (BEAKER) (test 0 /100 WBC 0-0 wkgh=279) NEUTROPHILS RELATIVE PERCENT (BEAKER) (test 68 % wyys=933) LYMPHOCYTES RELATIVE PERCENT (BEAKER) (test 14 % nwwb=308) MONOCYTES RELATIVE PERCENT (BEAKER) (test 12 % eckp=515) EOSINOPHILS RELATIVE PERCENT (BEAKER) (test 5 % daie=606) BASOPHILS RELATIVE PERCENT (BEAKER) (test 1 % hzut=193) NEUTROPHILS ABSOLUTE COUNT (BEAKER) (test 7.00 K/ L 1.78-5.38 wmhq=293) LYMPHOCYTES ABSOLUTE COUNT (BEAKER) (test 1.40 K/ L 1.32-3.57 tuuj=237) MONOCYTES ABSOLUTE COUNT (BEAKER) (test 1.19 K/ L 0.30-0.82 ugjk=356) EOSINOPHILS ABSOLUTE COUNT (BEAKER) (test 0.54 K/ L 0.04-0.54 lrjh=473) BASOPHILS ABSOLUTE COUNT (BEAKER) (test 0.08 K/ L 0.01-0.08 uvhk=317) IMMATURE GRANULOCYTES-RELATIVE PERCENT (BEAKER) 0 % 0-1 (test ipum=8850) POCT-GLUCOSE [id number] 23:12:00 Test Item Value Reference Range Comments POC-GLUCOSE METER (BEAKER) 133 mg/dL 70-110 TESTED AT [address] (test nsqz=1573) [place] [address] BLOOD [id number] 19:00:00 Test Item Value Reference Range Comments CULTURE (BEAKER) (test zpmk=1128) No growth in 5 days POCT-GLUCOSE [id number] 17:33:00 Test Item Value Reference Range Comments POC-GLUCOSE METER (BEAKER) 186 mg/dL 70-110 TESTED AT [address] (test clkw=1140) [place] [address] POCT-GLUCOSE [id number] 13:57:00 Test Item Value Reference Range Comments POC-GLUCOSE METER (BEAKER) 195 mg/dL 70-110 TESTED AT [address] (test cjiv=1694) [place] [address] BLOOD [id number] 11:00:00 Test Item Value Reference Range Comments CULTURE (BEAKER) (test jgbh=9864) No growth in 5 days SURGICALLY OBTAINED CULTURE + GRAM [id number] 10:37:00 Test Item Value Reference Range Comments CULTURE (BEAKER) (test qabh=6981) No growth GRAM STAIN RESULT (BEAKER) (test <1+ WBCs pfdp=5828) GRAM STAIN RESULT (BEAKER) (test No organisms seen dhnc=22074) POCT-GLUCOSE [id number] 09:49:00 Test Item Value Reference Range Comments POC-GLUCOSE METER (BEAKER) 107 mg/dL 70-110 TESTED AT [facility] [address] [facility] (test smlw=6953) [facility] [address] [id number] 06:19:00 Test Item Value Reference Range Comments PHOSPHORUS (BEAKER) (test dzqr=067) 2.7 mg/dL 2.3-4.7 [id number] 06:19:00 Test Item Value Reference Range Comments MAGNESIUM (BEAKER) (test bbbe=429) 1.7 mg/dL 1.6-2.6 CBC W/PLT COUNT & AUTO [id number] 05:24:00 Test Item Value Reference Range Comments WHITE BLOOD CELL COUNT (BEAKER) (test ekez=675) 9.3 K/ L 3.5-10.5 RED BLOOD CELL COUNT (BEAKER) (test fapr=554) 2.73 M/ L 4.63-6.08 HEMOGLOBIN (BEAKER) (test kpbi=333) 8.9 GM/DL 13.7-17.5 HEMATOCRIT (BEAKER) (test oyov=887) 28.0 % 40.1-51.0 MEAN CORPUSCULAR VOLUME (BEAKER) (test fkls=473) 102.6 fL 79.0-92.2 MEAN CORPUSCULAR HEMOGLOBIN (BEAKER) (test 32.6 pg 25.7-32.2 xuzo=642) MEAN CORPUSCULAR HEMOGLOBIN CONC (BEAKER) (test 31.8 GM/DL 32.3-36.5 xquz=490) RED CELL DISTRIBUTION WIDTH (BEAKER) (test 17.4 % 11.6-14.4 vhql=869) PLATELET COUNT (BEAKER) (test hreo=867) 198 K/CU MM 150-450 MEAN PLATELET VOLUME (BEAKER) (test gdbh=849) 11.7 fL 9.4-12.4 NUCLEATED RED BLOOD CELLS (BEAKER) (test 0 /100 WBC 0-0 mqwu=134) NEUTROPHILS RELATIVE PERCENT (BEAKER) (test 72 % iews=237) LYMPHOCYTES RELATIVE PERCENT (BEAKER) (test 11 % jgnf=873) MONOCYTES RELATIVE PERCENT (BEAKER) (test 12 % ohii=884) EOSINOPHILS RELATIVE PERCENT (BEAKER) (test 3 % yqyx=935) BASOPHILS RELATIVE PERCENT (BEAKER) (test 1 % znjc=694) NEUTROPHILS ABSOLUTE COUNT (BEAKER) (test 6.71 K/ L 1.78-5.38 zmac=968) LYMPHOCYTES ABSOLUTE COUNT (BEAKER) (test 1.00 K/ L 1.32-3.57 gbnm=539) MONOCYTES ABSOLUTE COUNT (BEAKER) (test 1.15 K/ L 0.30-0.82 zfir=152) EOSINOPHILS ABSOLUTE COUNT (BEAKER) (test 0.32 K/ L 0.04-0.54 azbd=482) BASOPHILS ABSOLUTE COUNT (BEAKER) (test 0.06 K/ L 0.01-0.08 fdwu=975) IMMATURE GRANULOCYTES-RELATIVE PERCENT (BEAKER) 0 % 0-1 (test uwat=7382) POCT-GLUCOSE [id number] 22:37:00 Test Item Value Reference Range Comments POC-GLUCOSE METER (BEAKER) 110 mg/dL 70-110 TESTED AT [address] (test sgkb=9805) [place] [address] POCT-GLUCOSE [id number] 21:15:00 Test Item Value Reference Range Comments POC-GLUCOSE METER (BEAKER) 142 mg/dL 70-110 TESTED AT [address] (test bqsj=5870) [place] [address] POCT-GLUCOSE [id number] 13:13:00 Test Item Value Reference Range Comments POC-GLUCOSE METER (BEAKER) 136 mg/dL 70-110 TESTED AT [address] (test hmja=1571) [place] [address] POCT-GLUCOSE [id number] 09:36:00 Test Item Value Reference Range Comments POC-GLUCOSE METER (BEAKER) 111 mg/dL 70-110 TESTED AT [address] (test cvto=0301) [place] [address] BASIC METABOLIC [id number] 06:08:00 Test Item Value Reference Range Comments SODIUM (BEAKER) (test 136 meq/L 136-145 njud=467) POTASSIUM (BEAKER) (test 4.5 meq/L 3.5-5.1 fmor=697) CHLORIDE (BEAKER) (test 97 meq/L 98-107 ztha=939) CO2 (BEAKER) (test 26 meq/L 22-29 ziqw=588) BLOOD UREA NITROGEN 44 mg/dL 7-21 (BEAKER) (test anjn=946) CREATININE (BEAKER) (test 5.76 mg/dL 0.57-1.25 ksxi=882) GLUCOSE RANDOM (BEAKER) 78 mg/dL 70-105 (test zptp=270) CALCIUM (BEAKER) (test 8.2 mg/dL 8.4-10.2 gkdo=745) EGFR (BEAKER) (test 10 mL/min/1.73 sq m ESTIMATED GFR IS NOT lnty=4142) ACCURATE CREATININE CLEARANCE IN PREDICTING GLOMERULAR FILTRATION RATE. ESTIMATED GFR IS NOT APPLICABLE FOR DIALYSIS PATIENTS. [id number] 06:02:00 Test Item Value Reference Range Comments PHOSPHORUS (BEAKER) (test lcmq=120) 3.3 mg/dL 2.3-4.7 [id number] 06:02:00 Test Item Value Reference Range Comments MAGNESIUM (BEAKER) (test wtoe=363) 1.9 mg/dL 1.6-2.6 CBC W/PLT COUNT & AUTO [id number] 05:39:00 Test Item Value Reference Range Comments WHITE BLOOD CELL COUNT (BEAKER) (test dtvh=697) 8.8 K/ L 3.5-10.5 RED BLOOD CELL COUNT (BEAKER) (test fnul=424) 2.71 M/ L 4.63-6.08 HEMOGLOBIN (BEAKER) (test isme=562) 8.9 GM/DL 13.7-17.5 HEMATOCRIT (BEAKER) (test wdgl=570) 27.9 % 40.1-51.0 MEAN CORPUSCULAR VOLUME (BEAKER) (test cucp=999) 103.0 fL 79.0-92.2 MEAN CORPUSCULAR HEMOGLOBIN (BEAKER) (test 32.8 pg 25.7-32.2 zcua=872) MEAN CORPUSCULAR HEMOGLOBIN CONC (BEAKER) (test 31.9 GM/DL 32.3-36.5 rmqg=018) RED CELL DISTRIBUTION WIDTH (BEAKER) (test 17.3 % 11.6-14.4 kbol=962) PLATELET COUNT (BEAKER) (test ngdo=516) 177 K/CU MM 150-450 MEAN PLATELET VOLUME (BEAKER) (test sakj=359) 11.6 fL 9.4-12.4 NUCLEATED RED BLOOD CELLS (BEAKER) (test 0 /100 WBC 0-0 onrk=715) NEUTROPHILS RELATIVE PERCENT (BEAKER) (test 68 % lnqb=863) LYMPHOCYTES RELATIVE PERCENT (BEAKER) (test 15 % nxbr=599) MONOCYTES RELATIVE PERCENT (BEAKER) (test 11 % ugqm=779) EOSINOPHILS RELATIVE PERCENT (BEAKER) (test 5 % pmcy=337) BASOPHILS RELATIVE PERCENT (BEAKER) (test 0 % ankc=815) NEUTROPHILS ABSOLUTE COUNT (BEAKER) (test 5.98 K/ L 1.78-5.38 uoxj=792) LYMPHOCYTES ABSOLUTE COUNT (BEAKER) (test 1.35 K/ L 1.32-3.57 vobt=312) MONOCYTES ABSOLUTE COUNT (BEAKER) (test 0.97 K/ L 0.30-0.82 izew=026) EOSINOPHILS ABSOLUTE COUNT (BEAKER) (test 0.45 K/ L 0.04-0.54 vsvx=858) BASOPHILS ABSOLUTE COUNT (BEAKER) (test 0.03 K/ L 0.01-0.08 hlxr=596) IMMATURE GRANULOCYTES-RELATIVE PERCENT (BEAKER) 0 % 0-1 (test ypwj=1266) POCT-GLUCOSE [id number] 00:11:00 Test Item Value Reference Range Comments POC-GLUCOSE METER (BEAKER) 146 mg/dL 70-110 TESTED AT [address] (test ofid=6001) [place] [id number] POCT-GLUCOSE [id number] 17:14:00 Test Item Value Reference Range Comments POC-GLUCOSE METER (BEAKER) 160 mg/dL 70-110 TESTED AT [address] (test upbf=1567) [place] [id number] POCT-GLUCOSE [id number] 13:54:00 Test Item Value Reference Range Comments POC-GLUCOSE METER (BEAKER) 242 mg/dL 70-110 TESTED AT [address] (test qgev=1490) [place] [id number] POCT-GLUCOSE [id number] 13:10:00 Test Item Value Reference Range Comments POC-GLUCOSE METER (BEAKER) 163 mg/dL 70-110 TESTED AT [address] (test qtdz=9325) [facility] [address] POCT-GLUCOSE [id number] 08:35:00 Test Item Value Reference Range Comments POC-GLUCOSE METER (BEAKER) 176 mg/dL 70-110 TESTED AT [address] (test enhj=4885) [facility] [address] [id number] 04:40:00 Test Item Value Reference Range Comments PHOSPHORUS (BEAKER) (test bynd=910) 2.7 mg/dL 2.3-4.7 [id number] 04:40:00 Test Item Value Reference Range Comments MAGNESIUM (BEAKER) (test nrsv=298) 1.8 mg/dL 1.6-2.6 CBC W/PLT COUNT & AUTO [id number] 04:00:00 Test Item Value Reference Range Comments WHITE BLOOD CELL COUNT (BEAKER) (test tfgr=490) 8.5 K/ L 3.5-10.5 RED BLOOD CELL COUNT (BEAKER) (test rjvy=427) 2.77 M/ L 4.63-6.08 HEMOGLOBIN (BEAKER) (test tikm=632) 9.0 GM/DL 13.7-17.5 HEMATOCRIT (BEAKER) (test jyfi=542) 28.5 % 40.1-51.0 MEAN CORPUSCULAR VOLUME (BEAKER) (test xsnr=965) 102.9 fL 79.0-92.2 MEAN CORPUSCULAR HEMOGLOBIN (BEAKER) (test 32.5 pg 25.7-32.2 skrg=743) MEAN CORPUSCULAR HEMOGLOBIN CONC (BEAKER) (test 31.6 GM/DL 32.3-36.5 nafb=733) RED CELL DISTRIBUTION WIDTH (BEAKER) (test 17.7 % 11.6-14.4 tevi=032) PLATELET COUNT (BEAKER) (test wtlb=570) 189 K/CU MM 150-450 MEAN PLATELET VOLUME (BEAKER) (test wtno=518) 11.5 fL 9.4-12.4 NUCLEATED RED BLOOD CELLS (BEAKER) (test 0 /100 WBC 0-0 gdxc=480) NEUTROPHILS RELATIVE PERCENT (BEAKER) (test 72 % lhcp=130) LYMPHOCYTES RELATIVE PERCENT (BEAKER) (test 10 % tynf=131) MONOCYTES RELATIVE PERCENT (BEAKER) (test 12 % aljx=279) EOSINOPHILS RELATIVE PERCENT (BEAKER) (test 5 % crmk=848) BASOPHILS RELATIVE PERCENT (BEAKER) (test 1 % swss=370) NEUTROPHILS ABSOLUTE COUNT (BEAKER) (test 6.13 K/ L 1.78-5.38 jopk=587) LYMPHOCYTES ABSOLUTE COUNT (BEAKER) (test 0.88 K/ L 1.32-3.57 hedm=807) MONOCYTES ABSOLUTE COUNT (BEAKER) (test 0.98 K/ L 0.30-0.82 izud=545) EOSINOPHILS ABSOLUTE COUNT (BEAKER) (test 0.39 K/ L 0.04-0.54 utru=323) BASOPHILS ABSOLUTE COUNT (BEAKER) (test 0.04 K/ L 0.01-0.08 orve=604) IMMATURE GRANULOCYTES-RELATIVE PERCENT (BEAKER) 1 % 0-1 (test yifx=5498) POCT-GLUCOSE [id number] 00:16:00 Test Item Value Reference Range Comments POC-GLUCOSE METER (BEAKER) 223 mg/dL 70-110 TESTED AT [address] (test ivqx=8308) [facility] [address] POCT-GLUCOSE [id number] 16:51:00 Test Item Value Reference Range Comments POC-GLUCOSE METER (BEAKER) 133 mg/dL 70-110 TESTED AT [address] (test jtww=1315) [facility] [address] POCT-GLUCOSE [id number] 12:50:00 Test Item Value Reference Range Comments POC-GLUCOSE METER (BEAKER) 178 mg/dL 70-110 TESTED AT [address] (test gsok=1655) [facility] [address] POCT-GLUCOSE [id number] 11:53:00 Test Item Value Reference Range Comments POC-GLUCOSE METER (BEAKER) 177 mg/dL 70-110 TESTED AT [address] (test gfrx=0314) [facility] [address] POCT-GLUCOSE [id number] 09:58:00 Test Item Value Reference Range Comments POC-GLUCOSE METER (BEAKER) 173 mg/dL 70-110 TESTED AT [address] (test jnbt=7904) [facility] [address] CBC W/PLT COUNT & AUTO [id number] 06:10:00 Test Item Value Reference Range Comments WHITE BLOOD CELL COUNT (BEAKER) (test eikc=183) 7.8 K/ L 3.5-10.5 RED BLOOD CELL COUNT (BEAKER) (test jzlv=765) 3.08 M/ L 4.63-6.08 HEMOGLOBIN (BEAKER) (test ehas=713) 10.0 GM/DL 13.7-17.5 HEMATOCRIT (BEAKER) (test quns=153) 31.2 % 40.1-51.0 MEAN CORPUSCULAR VOLUME (BEAKER) (test qmsm=184) 101.3 fL 79.0-92.2 MEAN CORPUSCULAR HEMOGLOBIN (BEAKER) (test 32.5 pg 25.7-32.2 eazl=899) MEAN CORPUSCULAR HEMOGLOBIN CONC (BEAKER) (test 32.1 GM/DL 32.3-36.5 uxch=091) RED CELL DISTRIBUTION WIDTH (BEAKER) (test 18.7 % 11.6-14.4 rmsq=505) PLATELET COUNT (BEAKER) (test gvgp=749) 177 K/CU MM 150-450 MEAN PLATELET VOLUME (BEAKER) (test jzbe=073) 11.4 fL 9.4-12.4 NUCLEATED RED BLOOD CELLS (BEAKER) (test 0 /100 WBC 0-0 ryip=769) NEUTROPHILS RELATIVE PERCENT (BEAKER) (test 63 % qzay=800) LYMPHOCYTES RELATIVE PERCENT (BEAKER) (test 15 % vkdc=136) MONOCYTES RELATIVE PERCENT (BEAKER) (test 12 % rilb=578) EOSINOPHILS RELATIVE PERCENT (BEAKER) (test 8 % ious=093) BASOPHILS RELATIVE PERCENT (BEAKER) (test 1 % oiqn=932) NEUTROPHILS ABSOLUTE COUNT (BEAKER) (test 4.90 K/ L 1.78-5.38 zvhb=704) LYMPHOCYTES ABSOLUTE COUNT (BEAKER) (test 1.16 K/ L 1.32-3.57 rqcx=606) MONOCYTES ABSOLUTE COUNT (BEAKER) (test 0.92 K/ L 0.30-0.82 rfik=454) EOSINOPHILS ABSOLUTE COUNT (BEAKER) (test 0.65 K/ L 0.04-0.54 vxvq=589) BASOPHILS ABSOLUTE COUNT (BEAKER) (test 0.09 K/ L 0.01-0.08 rqpo=236) IMMATURE GRANULOCYTES-RELATIVE PERCENT (BEAKER) 1 % 0-1 (test cipj=2900) [id number] 06:08:00 Test Item Value Reference Range Comments POTASSIUM (BEAKER) (test hhhm=077) 4.1 meq/L 3.5-5.1 [id number] 06:08:00 Test Item Value Reference Range Comments MAGNESIUM (BEAKER) (test bysw=460) 1.7 mg/dL 1.6-2.6 [id number] 06:08:00 Test Item Value Reference Range Comments PHOSPHORUS (BEAKER) (test xtvz=400) 2.4 mg/dL 2.3-4.7 POCT-GLUCOSE [id number] 05:20:00 Test Item Value Reference Range Comments POC-GLUCOSE METER (BEAKER) 170 mg/dL 70-110 TESTED AT [address] (test nyfm=3804) [facility] [id number] POCT-GLUCOSE [id number] 20:31:00 Test Item Value Reference Range Comments POC-GLUCOSE METER (BEAKER) 157 mg/dL 70-110 TESTED AT [address] (test peth=1218) [place] [id number] POCT-GLUCOSE [id number] 15:40:00 Test Item Value Reference Range Comments POC-GLUCOSE METER (BEAKER) 148 mg/dL 70-110 TESTED AT [address] (test bdak=1681) [place] [id number] 10:23:00 Test Item Value Reference Range Comments POTASSIUM (BEAKER) (test xmua=981) 4.0 meq/L 3.5-5.1 CBC W/PLT COUNT & AUTO [id number] 05:56:00 Test Item Value Reference Range Comments WHITE BLOOD CELL COUNT (BEAKER) (test fyfs=923) 6.9 K/ L 3.5-10.5 RED BLOOD CELL COUNT (BEAKER) (test dyiy=029) 2.06 M/ L 4.63-6.08 HEMOGLOBIN (BEAKER) (test bago=677) 6.9 GM/DL 13.7-17.5 HEMATOCRIT (BEAKER) (test mxpc=200) 22.2 % 40.1-51.0 MEAN CORPUSCULAR VOLUME (BEAKER) (test gwjh=303) 107.8 fL 79.0-92.2 MEAN CORPUSCULAR HEMOGLOBIN (BEAKER) (test 33.5 pg 25.7-32.2 nmks=060) MEAN CORPUSCULAR HEMOGLOBIN CONC (BEAKER) (test 31.1 GM/DL 32.3-36.5 umvi=485) RED CELL DISTRIBUTION WIDTH (BEAKER) (test 16.2 % 11.6-14.4 gnxi=998) PLATELET COUNT (BEAKER) (test wezz=815) 200 K/CU MM 150-450 MEAN PLATELET VOLUME (BEAKER) (test hoqt=065) 11.0 fL 9.4-12.4 NUCLEATED RED BLOOD CELLS (BEAKER) (test 0 /100 WBC 0-0 nshz=878) NEUTROPHILS RELATIVE PERCENT (BEAKER) (test 59 % khst=303) LYMPHOCYTES RELATIVE PERCENT (BEAKER) (test 21 % hiuh=203) MONOCYTES RELATIVE PERCENT (BEAKER) (test 13 % pbvj=496) EOSINOPHILS RELATIVE PERCENT (BEAKER) (test 6 % cpgn=714) BASOPHILS RELATIVE PERCENT (BEAKER) (test 1 % lzfl=727) NEUTROPHILS ABSOLUTE COUNT (BEAKER) (test 4.08 K/ L 1.78-5.38 kixw=030) LYMPHOCYTES ABSOLUTE COUNT (BEAKER) (test 1.45 K/ L 1.32-3.57 fdle=176) MONOCYTES ABSOLUTE COUNT (BEAKER) (test 0.90 K/ L 0.30-0.82 zvwd=835) EOSINOPHILS ABSOLUTE COUNT (BEAKER) (test 0.38 K/ L 0.04-0.54 xvgj=025) BASOPHILS ABSOLUTE COUNT (BEAKER) (test 0.05 K/ L 0.01-0.08 zzna=949) IMMATURE GRANULOCYTES-RELATIVE PERCENT (BEAKER) 1 % 0-1 (test yewp=0930) [id number] 05:37:00 Test Item Value Reference Range Comments PHOSPHORUS (BEAKER) (test qjkd=509) 3.1 mg/dL 2.3-4.7 [id number] 05:37:00 Test Item Value Reference Range Comments MAGNESIUM (BEAKER) (test uwju=330) 2.1 mg/dL 1.6-2.6 POCT-GLUCOSE [id number] 17:48:00 Test Item Value Reference Range Comments POC-GLUCOSE METER (BEAKER) 154 mg/dL 70-110 TESTED AT [address] (test omvu=1942) [facility] [id number] POCT-GLUCOSE [id number] 12:56:00 Test Item Value Reference Range Comments POC-GLUCOSE METER (BEAKER) 196 mg/dL 70-110 TESTED AT [address] (test espd=5265) [place] [id number] POCT-GLUCOSE [id number] 08:41:00 Test Item Value Reference Range Comments POC-GLUCOSE METER (BEAKER) 158 mg/dL 70-110 TESTED AT [address] (test ffpb=6335) [place] [id number] CBC W/PLT COUNT & AUTO [id number] 06:30:00 Test Item Value Reference Range Comments WHITE BLOOD CELL COUNT (BEAKER) (test pzzv=267) 9.0 K/ L 3.5-10.5 RED BLOOD CELL COUNT (BEAKER) (test opsj=956) 2.49 M/ L 4.63-6.08 HEMOGLOBIN (BEAKER) (test qgbk=862) 8.2 GM/DL 13.7-17.5 HEMATOCRIT (BEAKER) (test hglo=316) 27.2 % 40.1-51.0 MEAN CORPUSCULAR VOLUME (BEAKER) (test cgoo=376) 109.2 fL 79.0-92.2 MEAN CORPUSCULAR HEMOGLOBIN (BEAKER) (test 32.9 pg 25.7-32.2 ebyb=286) MEAN CORPUSCULAR HEMOGLOBIN CONC (BEAKER) (test 30.1 GM/DL 32.3-36.5 xifu=605) RED CELL DISTRIBUTION WIDTH (BEAKER) (test 15.9 % 11.6-14.4 pakh=285) PLATELET COUNT (BEAKER) (test yrhz=403) 214 K/CU MM 150-450 MEAN PLATELET VOLUME (BEAKER) (test hqop=613) 11.3 fL 9.4-12.4 NUCLEATED RED BLOOD CELLS (BEAKER) (test 0 /100 WBC 0-0 kmge=998) NEUTROPHILS RELATIVE PERCENT (BEAKER) (test 84 % ttmx=337) LYMPHOCYTES RELATIVE PERCENT (BEAKER) (test 7 % ahof=164) MONOCYTES RELATIVE PERCENT (BEAKER) (test 7 % qjjh=190) EOSINOPHILS RELATIVE PERCENT (BEAKER) (test 0 % lgzq=110) BASOPHILS RELATIVE PERCENT (BEAKER) (test 1 % amoi=584) NEUTROPHILS ABSOLUTE COUNT (BEAKER) (test 7.60 K/ L 1.78-5.38 rzpc=912) LYMPHOCYTES ABSOLUTE COUNT (BEAKER) (test 0.61 K/ L 1.32-3.57 gjql=937) MONOCYTES ABSOLUTE COUNT (BEAKER) (test 0.65 K/ L 0.30-0.82 vfmb=569) EOSINOPHILS ABSOLUTE COUNT (BEAKER) (test 0.03 K/ L 0.04-0.54 lfnd=237) BASOPHILS ABSOLUTE COUNT (BEAKER) (test 0.09 K/ L 0.01-0.08 kmiz=936) IMMATURE GRANULOCYTES-RELATIVE PERCENT (BEAKER) 1 % 0-1 (test wlku=5956) [id number] 06:22:00 Test Item Value Reference Range Comments PHOSPHORUS (BEAKER) (test shrj=264) 3.0 mg/dL 2.3-4.7 [id number] 06:22:00 Test Item Value Reference Range Comments MAGNESIUM (BEAKER) (test wjtx=785) 1.9 mg/dL 1.6-2.6 POCT-GLUCOSE [id number] 00:08:00 Test Item Value Reference Range Comments POC-GLUCOSE METER (BEAKER) 131 mg/dL 70-110 TESTED AT [address] (test kbbr=3611) [facility] [address] POCT-GLUCOSE [id number] 18:50:00 Test Item Value Reference Range Comments POC-GLUCOSE METER (BEAKER) 136 mg/dL 70-110 TESTED AT [place] [id number] [facility] (test ltsd=7705) [facility] [address] RAD, FOOT, MIN 3 VIEWS, [id number] 13:56:00Reason for exam:->non healing woundFINAL REPORT RAD, FOOT, MIN 3 VIEWS, RIGHT CLINICAL INDICATION: non healing wound COMPARISON: None FINDINGS: Frontal, oblique and lateral views of the right foot. IMPRESSION:Prior resection of the first ray distal to the metatarsal base. Erosive changes are difficult to ascertain, however some subcutaneous edema and gas are present raising concern for osteomyelitis. Dense vascular calcifications. Degenerative changes are noted in the remaining joint spaces. Removed cancellous screw fixation noted in the distal tibia. Signed: JR Le Robert MDReport Verified Date/Time: 09/04/2018 13:56:28 Reading Location: [address] Consult Reading Room POCT- GLUCOSE [id number] 12:12:00 Test Item Value Reference Range Comments POC-GLUCOSE METER (BEAKER) 125 mg/dL 70-110 TESTED AT [address] (test qgdj=0450) [facility] [address] POCT-GLUCOSE [id number] 08:06:00 Test Item Value Reference Range Comments POC-GLUCOSE METER (BEAKER) 122 mg/dL 70-110 TESTED AT [address] (test fbwo=5272) [facility] [address] CBC W/PLT COUNT & AUTO [id number] 04:43:00 Test Item Value Reference Range Comments WHITE BLOOD CELL COUNT (BEAKER) (test rccz=117) 8.1 K/ L 3.5-10.5 RED BLOOD CELL COUNT (BEAKER) (test kubz=328) 2.40 M/ L 4.63-6.08 HEMOGLOBIN (BEAKER) (test evmj=587) 7.9 GM/DL 13.7-17.5 HEMATOCRIT (BEAKER) (test mzdi=121) 25.5 % 40.1-51.0 MEAN CORPUSCULAR VOLUME (BEAKER) (test seci=031) 106.3 fL 79.0-92.2 MEAN CORPUSCULAR HEMOGLOBIN (BEAKER) (test 32.9 pg 25.7-32.2 dwlh=814) MEAN CORPUSCULAR HEMOGLOBIN CONC (BEAKER) (test 31.0 GM/DL 32.3-36.5 aauw=252) RED CELL DISTRIBUTION WIDTH (BEAKER) (test 15.1 % 11.6-14.4 czms=870) PLATELET COUNT (BEAKER) (test mpnn=744) 226 K/CU MM 150-450 MEAN PLATELET VOLUME (BEAKER) (test gqjo=408) 11.1 fL 9.4-12.4 NUCLEATED RED BLOOD CELLS (BEAKER) (test 0 /100 WBC 0-0 ohxc=467) NEUTROPHILS RELATIVE PERCENT (BEAKER) (test 63 % iall=194) LYMPHOCYTES RELATIVE PERCENT (BEAKER) (test 16 % kabs=987) MONOCYTES RELATIVE PERCENT (BEAKER) (test 11 % lbec=861) EOSINOPHILS RELATIVE PERCENT (BEAKER) (test 9 % gwhj=772) BASOPHILS RELATIVE PERCENT (BEAKER) (test 1 % umyx=910) NEUTROPHILS ABSOLUTE COUNT (BEAKER) (test 5.07 K/ L 1.78-5.38 zemy=839) LYMPHOCYTES ABSOLUTE COUNT (BEAKER) (test 1.31 K/ L 1.32-3.57 urgl=587) MONOCYTES ABSOLUTE COUNT (BEAKER) (test 0.92 K/ L 0.30-0.82 hjhx=479) EOSINOPHILS ABSOLUTE COUNT (BEAKER) (test 0.70 K/ L 0.04-0.54 bmcr=916) BASOPHILS ABSOLUTE COUNT (BEAKER) (test 0.07 K/ L 0.01-0.08 urhh=306) IMMATURE GRANULOCYTES-RELATIVE PERCENT (BEAKER) 0 % 0-1 (test euyv=3321) [id number] 04:39:00 Test Item Value Reference Range Comments PHOSPHORUS (BEAKER) (test lrud=521) 2.9 mg/dL 2.3-4.7 [id number] 04:39:00 Test Item Value Reference Range Comments MAGNESIUM (BEAKER) (test ilgw=651) 1.9 mg/dL 1.6-2.6 BASIC METABOLIC [id number] 04:39:00 Test Item Value Reference Range Comments SODIUM (BEAKER) (test 139 meq/L 136-145 ujpi=722) POTASSIUM (BEAKER) (test 4.3 meq/L 3.5-5.1 svgz=908) CHLORIDE (BEAKER) (test 100 meq/L 98-107 dvjf=557) CO2 (BEAKER) (test 30 meq/L 22-29 lray=643) BLOOD UREA NITROGEN 29 mg/dL 7-21 (BEAKER) (test ulhg=826) CREATININE (BEAKER) (test 4.41 mg/dL 0.57-1.25 uqok=355) GLUCOSE RANDOM (BEAKER) 115 mg/dL 70-105 (test tzkn=719) CALCIUM (BEAKER) (test 8.6 mg/dL 8.4-10.2 aguu=604) EGFR (BEAKER) (test 13 mL/min/1.73 sq m ESTIMATED GFR IS NOT cvtt=8647) ACCURATE CREATININE CLEARANCE IN PREDICTING GLOMERULAR FILTRATION RATE. ESTIMATED GFR IS NOT APPLICABLE FOR DIALYSIS PATIENTS. POCT-GLUCOSE [id number] 20:32:00 Test Item Value Reference Range Comments POC-GLUCOSE METER (BEAKER) 177 mg/dL 70-110 TESTED AT [address] (test vcxb=3127) [place] [id number] POCT-GLUCOSE [id number] 18:07:00 Test Item Value Reference Range Comments POC-GLUCOSE METER (BEAKER) 141 mg/dL 70-110 TESTED AT [address] (test ywqe=6886) [place] [id number] RESPIRATORY PANEL [id number] 15:28:00 Test Item Value Reference Range Comments HUMAN METAPNEUMOVIRUS (BEAKER) (test Not detected Not detected, Equivocal hpbg=5904) RHINOVIRUS (BEAKER) (test byea=8916) Not detected Not detected, Equivocal INFLUENZA A (BEAKER) (test agfg=3200) Not detected Not detected, Equivocal INFLUENZA A (NO SUBTYPE) (test Not detected, Equivocal zcfp=9373) INFLUENZA A SUBTYPE H1 (BEAKER) (test Not detected, Equivocal vfql=9041) INFLUENZA A SUBTYPE H3 (BEAKER) (test Not detected, Equivocal klgq=8798) INFLUENZA A SUBTYPE H1-2009 (BEAKER) Not detected, Equivocal (test ieaq=6199) INFLUENZA B (BEAKER) (test fxye=5329) Not detected Not detected, Equivocal RESPIRATORY SYNCYTIAL VIRUS (BEAKER) Not detected Not detected, Equivocal (test kflg=6233) PARAINFLUENZA VIRUS 1 (BEAKER) (test Not detected Not detected, Equivocal zdas=8611) PARAINFLUENZA VIRUS 2 (BEAKER) (test Not detected Not detected, Equivocal xkro=7647) PARAINFLUENZA VIRUS 3 (BEAKER) (test Not detected Not detected, Equivocal prdm=0265) PARAINFLUENZA VIRUS 4 (BEAKER) (test Not detected Not detected, Equivocal izrp=6372) ADENOVIRUS (BEAKER) (test ezwq=1542) Not detected Not detected, Equivocal CORONAVIRUS 229E (BEAKER) (test Not detected Not detected, Equivocal cdlk=7036) CORONAVIRUS HKU1 (BEAKER) (test Not detected Not detected, Equivocal cjaw=7692) CORONAVIRUS NL63 (BEAKER) (test Not detected Not detected, Equivocal tgbk=8901) CORONAVIRUS OC43 (BEAKER) (test Not detected Not detected, Equivocal clxg=1186) BORDETELLA PERTUSSIS (BEAKER) (test Not detected Not detected, Equivocal igwj=1149) CHLAMYDOPHILA PNEUMONIAE (BEAKER) (test Not detected Not detected, Equivocal bakl=3390) MYCOPLASMA PNEUMONIAE (BEAKER) (test Not detected Not detected, Equivocal oudr=7336) Other viruses and bacteria not targeted by this PCR panel cannot be excluded; therefore clinical correlation and follow up of serology, culture results, and other molecular studies is required. The results are not intended to be used as the sole means for clinical diagnosis or patient management decisions. This sample was tested at the [facility] using the Private Practice Respiratory Panel. It is FDA cleared and has been verified and approved by the [facility] for clinical use on nasal swab specimens. It is not FDA-cleared for use on bronchial wash/lavage samples. However, for this sample type, validation was performed and test characteristics were determined and approved, by [facility] for clinical use under the Clinical Laboratory Improvement Amendments (CLIA) of 1988 requirements. Therefore, FDA clearance isnot required. This laboratory is CLIA-certified and [employer] ([employer])-accredited to perform high complexity testing.POCT-GLUCOSE [id number] 12:53:00 Test Item Value Reference Range Comments POC-GLUCOSE METER (BEAKER) 147 mg/dL 70-110 TESTED AT [address] (test nucu=0683) [place] [address] POCT-GLUCOSE [id number] 07:57:00 Test Item Value Reference Range Comments POC-GLUCOSE METER (BEAKER) 81 mg/dL 70-110 TESTED AT [address] (test hmpc=9472) [place] [address] BASIC METABOLIC [id number] 04:37:00 Test Item Value Reference Range Comments SODIUM (BEAKER) (test 140 meq/L 136-145 aizb=562) POTASSIUM (BEAKER) (test 3.6 meq/L 3.5-5.1 gkke=744) CHLORIDE (BEAKER) (test 102 meq/L 98-107 yhnp=924) CO2 (BEAKER) (test 32 meq/L 22-29 xmly=082) BLOOD UREA NITROGEN 19 mg/dL 7-21 (BEAKER) (test mwwx=934) CREATININE (BEAKER) (test 3.20 mg/dL 0.57-1.25 bqgq=401) GLUCOSE RANDOM (BEAKER) 77 mg/dL 70-105 (test lisz=130) CALCIUM (BEAKER) (test 8.3 mg/dL 8.4-10.2 gfsw=046) EGFR (BEAKER) (test 19 mL/min/1.73 sq m ESTIMATED GFR IS NOT xzub=9445) ACCURATE CREATININE CLEARANCE IN PREDICTING GLOMERULAR FILTRATION RATE. ESTIMATED GFR IS NOT APPLICABLE FOR DIALYSIS PATIENTS. [id number] 04:34:00 Test Item Value Reference Range Comments PHOSPHORUS (BEAKER) (test ntku=095) 1.6 mg/dL 2.3-4.7 [id number] 04:34:00 Test Item Value Reference Range Comments MAGNESIUM (BEAKER) (test hxdd=555) 1.8 mg/dL 1.6-2.6 CBC W/PLT COUNT & AUTO [id number] 04:31:00 Test Item Value Reference Range Comments WHITE BLOOD CELL COUNT (BEAKER) (test cwts=800) 8.4 K/ L 3.5-10.5 RED BLOOD CELL COUNT (BEAKER) (test bted=874) 2.20 M/ L 4.63-6.08 HEMOGLOBIN (BEAKER) (test uygd=711) 7.3 GM/DL 13.7-17.5 HEMATOCRIT (BEAKER) (test aclo=890) 23.1 % 40.1-51.0 MEAN CORPUSCULAR VOLUME (BEAKER) (test mohr=710) 105.0 fL 79.0-92.2 MEAN CORPUSCULAR HEMOGLOBIN (BEAKER) (test 33.2 pg 25.7-32.2 ssdm=744) MEAN CORPUSCULAR HEMOGLOBIN CONC (BEAKER) (test 31.6 GM/DL 32.3-36.5 vgfp=393) RED CELL DISTRIBUTION WIDTH (BEAKER) (test 14.8 % 11.6-14.4 gtua=772) PLATELET COUNT (BEAKER) (test gurk=673) 184 K/CU MM 150-450 MEAN PLATELET VOLUME (BEAKER) (test ligb=037) 10.5 fL 9.4-12.4 NUCLEATED RED BLOOD CELLS (BEAKER) (test 0 /100 WBC 0-0 bxga=096) NEUTROPHILS RELATIVE PERCENT (BEAKER) (test 62 % mkjx=180) LYMPHOCYTES RELATIVE PERCENT (BEAKER) (test 20 % hppm=737) MONOCYTES RELATIVE PERCENT (BEAKER) (test 12 % uvhm=742) EOSINOPHILS RELATIVE PERCENT (BEAKER) (test 6 % obxz=892) BASOPHILS RELATIVE PERCENT (BEAKER) (test 1 % ydwc=080) NEUTROPHILS ABSOLUTE COUNT (BEAKER) (test 5.18 K/ L 1.78-5.38 qiot=810) LYMPHOCYTES ABSOLUTE COUNT (BEAKER) (test 1.66 K/ L 1.32-3.57 qlts=076) MONOCYTES ABSOLUTE COUNT (BEAKER) (test 0.96 K/ L 0.30-0.82 irvm=310) EOSINOPHILS ABSOLUTE COUNT (BEAKER) (test 0.51 K/ L 0.04-0.54 kunw=537) BASOPHILS ABSOLUTE COUNT (BEAKER) (test 0.04 K/ L 0.01-0.08 wrfh=426) IMMATURE GRANULOCYTES-RELATIVE PERCENT (BEAKER) 0 % 0-1 (test gnbb=1856) POCT-GLUCOSE [id number] 22:13:00 Test Item Value Reference Range Comments POC-GLUCOSE METER (BEAKER) 197 mg/dL 70-110 TESTED AT [address] (test zlge=7615) [place] [id number] POCT-GLUCOSE [id number] 17:38:00 Test Item Value Reference Range Comments POC-GLUCOSE METER (BEAKER) 229 mg/dL 70-110 TESTED AT [address] (test kkqu=5865) [place] [id number] POCT-GLUCOSE [id number] 08:11:00 Test Item Value Reference Range Comments POC-GLUCOSE METER (BEAKER) 148 mg/dL 70-110 TESTED AT [address] (test yjsb=6612) [place] [id number] 07:28:00 Test Item Value Reference Range Comments FERRITIN (BEAKER) (test jvfo=559) 414 ng/mL 5-275 IRON, TIBC, % SAT. (WITHOUT FERRITIN)[id number] 07:03:00 Test Item Value Reference Range Comments IRON (BEAKER) (test vxyy=103) 55.0 ug/dL 40.0-160.0 TOTAL IRON BINDING CAPACITY (BEAKER) (test 148 ug/dL 250-450 kvbc=389) IRON % SATURATION (2) (BEAKER) (test sawi=8159) 37 % 20-55 BASIC METABOLIC [id number] 04:17:00 Test Item Value Reference Range Comments SODIUM (BEAKER) (test 135 meq/L 136-145 vaxf=551) POTASSIUM (BEAKER) (test 4.4 meq/L 3.5-5.1 vblj=982) CHLORIDE (BEAKER) (test 101 meq/L 98-107 vjhk=273) CO2 (BEAKER) (test 26 meq/L 22-29 eijm=819) BLOOD UREA NITROGEN 29 mg/dL 7-21 (BEAKER) (test serl=102) CREATININE (BEAKER) (test 5.20 mg/dL 0.57-1.25 lqro=256) GLUCOSE RANDOM (BEAKER) 119 mg/dL 70-105 (test zngg=092) CALCIUM (BEAKER) (test 8.4 mg/dL 8.4-10.2 ledp=981) EGFR (BEAKER) (test 11 mL/min/1.73 sq m ESTIMATED GFR IS NOT uxdt=2070) ACCURATE CREATININE CLEARANCE IN PREDICTING GLOMERULAR FILTRATION RATE. ESTIMATED GFR IS NOT APPLICABLE FOR DIALYSIS PATIENTS. CBC W/PLT COUNT & AUTO [id number] 04:13:00 Test Item Value Reference Range Comments WHITE BLOOD CELL COUNT (BEAKER) (test ngeb=361) 8.1 K/ L 3.5-10.5 RED BLOOD CELL COUNT (BEAKER) (test tyml=383) 2.19 M/ L 4.63-6.08 HEMOGLOBIN (BEAKER) (test rixr=835) 7.3 GM/DL 13.7-17.5 HEMATOCRIT (BEAKER) (test amak=561) 23.1 % 40.1-51.0 MEAN CORPUSCULAR VOLUME (BEAKER) (test oqye=929) 105.5 fL 79.0-92.2 MEAN CORPUSCULAR HEMOGLOBIN (BEAKER) (test 33.3 pg 25.7-32.2 ekhr=883) MEAN CORPUSCULAR HEMOGLOBIN CONC (BEAKER) (test 31.6 GM/DL 32.3-36.5 elbh=199) RED CELL DISTRIBUTION WIDTH (BEAKER) (test 14.7 % 11.6-14.4 usyc=368) PLATELET COUNT (BEAKER) (test awot=036) 168 K/CU MM 150-450 MEAN PLATELET VOLUME (BEAKER) (test ljzs=728) 11.4 fL 9.4-12.4 NUCLEATED RED BLOOD CELLS (BEAKER) (test 0 /100 WBC 0-0 zona=505) NEUTROPHILS RELATIVE PERCENT (BEAKER) (test 63 % skpi=611) LYMPHOCYTES RELATIVE PERCENT (BEAKER) (test 17 % xtbf=134) MONOCYTES RELATIVE PERCENT (BEAKER) (test 9 % oddj=992) EOSINOPHILS RELATIVE PERCENT (BEAKER) (test 10 % lchu=023) BASOPHILS RELATIVE PERCENT (BEAKER) (test 0 % uutb=313) NEUTROPHILS ABSOLUTE COUNT (BEAKER) (test 5.13 K/ L 1.78-5.38 whqw=378) LYMPHOCYTES ABSOLUTE COUNT (BEAKER) (test 1.40 K/ L 1.32-3.57 hqja=812) MONOCYTES ABSOLUTE COUNT (BEAKER) (test 0.72 K/ L 0.30-0.82 zqzb=926) EOSINOPHILS ABSOLUTE COUNT (BEAKER) (test 0.81 K/ L 0.04-0.54 oqkf=222) BASOPHILS ABSOLUTE COUNT (BEAKER) (test 0.03 K/ L 0.01-0.08 mpqk=290) IMMATURE GRANULOCYTES-RELATIVE PERCENT (BEAKER) 0 % 0-1 (test bndl=6924) [id number] 04:11:00 Test Item Value Reference Range Comments PHOSPHORUS (BEAKER) (test fgiv=404) 3.5 mg/dL 2.3-4.7 [id number] 04:11:00 Test Item Value Reference Range Comments MAGNESIUM (BEAKER) (test axqs=347) 2.2 mg/dL 1.6-2.6 POCT-GLUCOSE [id number] 21:35:00 Test Item Value Reference Range Comments POC-GLUCOSE METER (BEAKER) 165 mg/dL 70-110 TESTED AT [address] (test hohf=1599) [facility] [address] POCT-GLUCOSE [id number] 17:33:00 Test Item Value Reference Range Comments POC-GLUCOSE METER (BEAKER) 200 mg/dL 70-110 TESTED AT [address] (test tcfs=6180) [place] [id number] POCT-GLUCOSE [id number] 13:15:00 Test Item Value Reference Range Comments POC-GLUCOSE METER (BEAKER) 188 mg/dL 70-110 TESTED AT [address] (test pjiv=6393) [place] [id number] POCT-GLUCOSE [id number] 09:59:00 Test Item Value Reference Range Comments POC-GLUCOSE METER (BEAKER) 214 mg/dL 70-110 TESTED AT [address] (test wipx=5608) [place] [id number] CBC W/PLT COUNT & AUTO [id number] 07:15:00 Test Item Value Reference Range Comments WHITE BLOOD CELL COUNT (BEAKER) (test rbyt=537) 7.6 K/ L 3.5-10.5 RED BLOOD CELL COUNT (BEAKER) (test wkyl=392) 2.26 M/ L 4.63-6.08 HEMOGLOBIN (BEAKER) (test shlc=468) 7.6 GM/DL 13.7-17.5 HEMATOCRIT (BEAKER) (test ytam=806) 24.1 % 40.1-51.0 MEAN CORPUSCULAR VOLUME (BEAKER) (test qdqm=023) 106.6 fL 79.0-92.2 MEAN CORPUSCULAR HEMOGLOBIN (BEAKER) (test 33.6 pg 25.7-32.2 pcby=635) MEAN CORPUSCULAR HEMOGLOBIN CONC (BEAKER) (test 31.5 GM/DL 32.3-36.5 qkin=122) RED CELL DISTRIBUTION WIDTH (BEAKER) (test 14.6 % 11.6-14.4 zwai=169) PLATELET COUNT (BEAKER) (test keaq=036) 155 K/CU MM 150-450 MEAN PLATELET VOLUME (BEAKER) (test xeyy=303) 11.7 fL 9.4-12.4 NUCLEATED RED BLOOD CELLS (BEAKER) (test 0 /100 WBC 0-0 mpaa=925) NEUTROPHILS RELATIVE PERCENT (BEAKER) (test 64 % dhtv=580) LYMPHOCYTES RELATIVE PERCENT (BEAKER) (test 14 % mnsz=562) MONOCYTES RELATIVE PERCENT (BEAKER) (test 11 % skyp=937) EOSINOPHILS RELATIVE PERCENT (BEAKER) (test 10 % iblx=433) BASOPHILS RELATIVE PERCENT (BEAKER) (test 1 % ldbq=970) NEUTROPHILS ABSOLUTE COUNT (BEAKER) (test 4.88 K/ L 1.78-5.38 ygoi=520) LYMPHOCYTES ABSOLUTE COUNT (BEAKER) (test 1.04 K/ L 1.32-3.57 nshx=480) MONOCYTES ABSOLUTE COUNT (BEAKER) (test 0.82 K/ L 0.30-0.82 xshs=570) EOSINOPHILS ABSOLUTE COUNT (BEAKER) (test 0.77 K/ L 0.04-0.54 xjtm=746) BASOPHILS ABSOLUTE COUNT (BEAKER) (test 0.04 K/ L 0.01-0.08 bgcm=090) IMMATURE GRANULOCYTES-RELATIVE PERCENT (BEAKER) 0 % 0-1 (test dpzg=1180) BASIC METABOLIC [id number] 06:48:00 Test Item Value Reference Range Comments SODIUM (BEAKER) (test 133 meq/L 136-145 srvo=202) POTASSIUM (BEAKER) (test 3.4 meq/L 3.5-5.1 kvxm=363) CHLORIDE (BEAKER) (test 99 meq/L 98-107 gdzp=500) CO2 (BEAKER) (test 27 meq/L 22-29 kmzz=788) BLOOD UREA NITROGEN 20 mg/dL 7-21 (BEAKER) (test mkcq=085) CREATININE (BEAKER) (test 4.24 mg/dL 0.57-1.25 uywv=808) GLUCOSE RANDOM (BEAKER) 165 mg/dL 70-105 (test tjqr=220) CALCIUM (BEAKER) (test 8.4 mg/dL 8.4-10.2 yyvm=968) EGFR (BEAKER) (test 14 mL/min/1.73 sq m ESTIMATED GFR IS NOT leve=2203) ACCURATE CREATININE CLEARANCE IN PREDICTING GLOMERULAR FILTRATION RATE. ESTIMATED GFR IS NOT APPLICABLE FOR DIALYSIS PATIENTS. [id number] 06:43:00 Test Item Value Reference Range Comments PHOSPHORUS (BEAKER) (test xnyu=712) 1.7 mg/dL 2.3-4.7 [id number] 06:43:00 Test Item Value Reference Range Comments MAGNESIUM (BEAKER) (test zxfp=710) 1.9 mg/dL 1.6-2.6 POCT-GLUCOSE [id number] 06:32:00 Test Item Value Reference Range Comments POC-GLUCOSE METER (BEAKER) 201 mg/dL 70-110 TESTED AT [address] (test xpec=1067) [facility] [address] POCT-GLUCOSE [id number] 17:39:00 Test Item Value Reference Range Comments POC-GLUCOSE METER (BEAKER) 206 mg/dL 70-110 TESTED AT [address] (test zfpt=7546) [facility] [address] POCT-GLUCOSE [id number] 12:46:00 Test Item Value Reference Range Comments POC-GLUCOSE METER (BEAKER) 191 mg/dL 70-110 TESTED AT [address] (test hsbc=9571) [facility] [address] POCT-GLUCOSE [id number] 09:46:00 Test Item Value Reference Range Comments POC-GLUCOSE METER (BEAKER) 105 mg/dL 70-110 TESTED AT [address] (test fdxm=5027) [facility] [address] POCT-GLUCOSE [id number] 08:34:00 Test Item Value Reference Range Comments POC-GLUCOSE METER (BEAKER) 145 mg/dL 70-110 TESTED AT [address] (test ofek=6906) [facility] [address] TROPONIN [id number] 04:58:00 Test Item Value Reference Range Comments TROPONIN I (BEAKER) (test xdkl=274) 0.07 ng/mL 0.00-0.03 Troponin I (TnI) levels must be interpreted in the context of the presenting symptoms and the clinical findings. Elevated TnI levels indicate myocardial damage, but are not specific for ischemic heart disease. Elevated TnI levels are seen in patients with other cardiac conditions (including myocarditis and congestive heart failure), and slight TnI elevations occur in patients with other conditions, including sepsis, renal failure, acidosis, acute neurological disease, and persistent tachyarrhythmia.BASIC METABOLIC [id number] 04:54:00 Test Item Value Reference Range Comments SODIUM (BEAKER) (test 135 meq/L 136-145 cadb=912) POTASSIUM (BEAKER) (test 3.9 meq/L 3.5-5.1 thtm=708) CHLORIDE (BEAKER) (test 100 meq/L 98-107 rzms=103) CO2 (BEAKER) (test 27 meq/L 22-29 qjre=473) BLOOD UREA NITROGEN 12 mg/dL 7-21 (BEAKER) (test cgug=177) CREATININE (BEAKER) (test 2.68 mg/dL 0.57-1.25 uhnf=924) GLUCOSE RANDOM (BEAKER) 132 mg/dL 70-105 (test tady=273) CALCIUM (BEAKER) (test 8.6 mg/dL 8.4-10.2 nuxx=966) EGFR (BEAKER) (test 23 mL/min/1.73 sq m ESTIMATED GFR IS NOT nsct=4465) ACCURATE CREATININE CLEARANCE IN PREDICTING GLOMERULAR FILTRATION RATE. ESTIMATED GFR IS NOT APPLICABLE FOR DIALYSIS PATIENTS. [id number] 04:50:00 Test Item Value Reference Range Comments PHOSPHORUS (BEAKER) (test tzzd=992) 2.0 mg/dL 2.3-4.7 [id number] 04:50:00 Test Item Value Reference Range Comments MAGNESIUM (BEAKER) (test xirt=206) 1.8 mg/dL 1.6-2.6 CBC W/PLT COUNT & AUTO [id number] 04:27:00 Test Item Value Reference Range Comments WHITE BLOOD CELL COUNT (BEAKER) (test infq=592) 7.8 K/ L 3.5-10.5 RED BLOOD CELL COUNT (BEAKER) (test avmp=245) 2.63 M/ L 4.63-6.08 HEMOGLOBIN (BEAKER) (test iswm=025) 8.6 GM/DL 13.7-17.5 HEMATOCRIT (BEAKER) (test kyga=090) 27.3 % 40.1-51.0 MEAN CORPUSCULAR VOLUME (BEAKER) (test pqrq=935) 103.8 fL 79.0-92.2 MEAN CORPUSCULAR HEMOGLOBIN (BEAKER) (test 32.7 pg 25.7-32.2 jdmu=316) MEAN CORPUSCULAR HEMOGLOBIN CONC (BEAKER) (test 31.5 GM/DL 32.3-36.5 dqkc=703) RED CELL DISTRIBUTION WIDTH (BEAKER) (test 14.3 % 11.6-14.4 kasg=085) PLATELET COUNT (BEAKER) (test emqp=537) 156 K/CU MM 150-450 MEAN PLATELET VOLUME (BEAKER) (test pbqd=463) 11.0 fL 9.4-12.4 NUCLEATED RED BLOOD CELLS (BEAKER) (test 0 /100 WBC 0-0 lheh=858) NEUTROPHILS RELATIVE PERCENT (BEAKER) (test 77 % ktym=078) LYMPHOCYTES RELATIVE PERCENT (BEAKER) (test 8 % bmim=132) MONOCYTES RELATIVE PERCENT (BEAKER) (test 9 % xdsq=995) EOSINOPHILS RELATIVE PERCENT (BEAKER) (test 5 % gvsi=612) BASOPHILS RELATIVE PERCENT (BEAKER) (test 1 % dsez=655) NEUTROPHILS ABSOLUTE COUNT (BEAKER) (test 5.98 K/ L 1.78-5.38 qkaw=321) LYMPHOCYTES ABSOLUTE COUNT (BEAKER) (test 0.62 K/ L 1.32-3.57 gxui=448) MONOCYTES ABSOLUTE COUNT (BEAKER) (test 0.72 K/ L 0.30-0.82 yhhp=825) EOSINOPHILS ABSOLUTE COUNT (BEAKER) (test 0.35 K/ L 0.04-0.54 cdxb=873) BASOPHILS ABSOLUTE COUNT (BEAKER) (test 0.05 K/ L 0.01-0.08 qdsc=752) IMMATURE GRANULOCYTES-RELATIVE PERCENT (BEAKER) 1 % 0-1 (test feqb=5092) TROPONIN [id number] 23:54:00 Test Item Value Reference Range Comments TROPONIN I (BEAKER) (test ysjb=275) 0.06 ng/mL 0.00-0.03 Troponin I (TnI) levels must be interpreted in the context of the presenting symptoms and the clinical findings. Elevated TnI levels indicate myocardial damage, but are not specific for ischemic heart disease. Elevated TnI levels are seen in patients with other cardiac conditions (including myocarditis and congestive heart failure), and slight TnI elevations occur in patients with other conditions, including sepsis, renal failure, acidosis, acute neurological disease, and persistent tachyarrhythmia.POCT-GLUCOSE [id number] 21:10:00 Test Item Value Reference Range Comments POC-GLUCOSE METER (BEAKER) 118 mg/dL 70-110 TESTED AT [address] (test jimt=1012) [facility] [id number] TROPONIN [id number] 19:00:00 Test Item Value Reference Range Comments TROPONIN I (BEAKER) (test ebzc=536) 0.05 ng/mL 0.00-0.03 Troponin I (TnI) levels must be interpreted in the context of the presenting symptoms and the clinical findings. Elevated TnI levels indicate myocardial damage, but are not specific for ischemic heart disease. Elevated TnI levels are seen in patients with other cardiac conditions (including myocarditis and congestive heart failure), and slight TnI elevations occur in patients with other conditions, including sepsis, renal failure, acidosis, acute neurological disease, and persistent tachyarrhythmia.POCT-GLUCOSE [id number] 18:30:00 Test Item Value Reference Range Comments POC-GLUCOSE METER (BEAKER) 134 mg/dL 70-110 TESTED AT [facility] [address] [facility] (test iraa=6732) [facility] [id number] TROPONIN [id number] 17:24:00 Test Item Value Reference Range Comments TROPONIN I (BEAKER) (test pkga=564) 0.06 ng/mL 0.00-0.03 Troponin I (TnI) levels must be interpreted in the context of the presenting symptoms and the clinical findings. Elevated TnI levels indicate myocardial damage, but are not specific for ischemic heart disease. Elevated TnI levels are seen in patients with other cardiac conditions (including myocarditis and congestive heart failure), and slight TnI elevations occur in patients with other conditions, including sepsis, renal failure, acidosis, acute neurological disease, and persistent tachyarrhythmia.BASIC METABOLIC [id number] 17:17:00 Test Item Value Reference Range Comments SODIUM (BEAKER) (test 132 meq/L 136-145 cmwz=455) POTASSIUM (BEAKER) (test 4.3 meq/L 3.5-5.1 aqkw=449) CHLORIDE (BEAKER) (test 98 meq/L 98-107 rnfk=903) CO2 (BEAKER) (test 24 meq/L 22-29 alyq=929) BLOOD UREA NITROGEN 31 mg/dL 7-21 (BEAKER) (test uiol=567) CREATININE (BEAKER) (test 5.30 mg/dL 0.57-1.25 yjhf=342) GLUCOSE RANDOM (BEAKER) 142 mg/dL 70-105 (test wnau=175) CALCIUM (BEAKER) (test 9.1 mg/dL 8.4-10.2 dsum=071) EGFR (BEAKER) (test 11 mL/min/1.73 sq m ESTIMATED GFR IS NOT wejw=2027) ACCURATE CREATININE CLEARANCE IN PREDICTING GLOMERULAR FILTRATION RATE. ESTIMATED GFR IS NOT APPLICABLE FOR DIALYSIS PATIENTS. [id number] 17:16:00 Test Item Value Reference Range Comments PHOSPHORUS (BEAKER) (test ipyr=470) 2.5 mg/dL 2.3-4.7 [id number] 17:16:00 Test Item Value Reference Range Comments MAGNESIUM (BEAKER) (test gilg=364) 1.8 mg/dL 1.6-2.6 BASIC METABOLIC [id number] 13:14:00 Test Item Value Reference Range Comments SODIUM (BEAKER) (test 132 meq/L 136-145 xagb=965) POTASSIUM (BEAKER) (test 4.2 meq/L 3.5-5.1 gtnn=483) CHLORIDE (BEAKER) (test 99 meq/L 98-107 rmxs=014) CO2 (BEAKER) (test 26 meq/L 22-29 dqoq=693) BLOOD UREA NITROGEN 29 mg/dL 7-21 (BEAKER) (test pluo=251) CREATININE (BEAKER) (test 4.83 mg/dL 0.57-1.25 rasu=169) GLUCOSE RANDOM (BEAKER) 124 mg/dL 70-105 (test wdae=679) CALCIUM (BEAKER) (test 8.7 mg/dL 8.4-10.2 rvvg=302) EGFR (BEAKER) (test 12 mL/min/1.73 sq m ESTIMATED GFR IS NOT wghu=7346) ACCURATE CREATININE CLEARANCE IN PREDICTING GLOMERULAR FILTRATION RATE. ESTIMATED GFR IS NOT APPLICABLE FOR DIALYSIS PATIENTS. CBC W/PLT COUNT & AUTO [id number] 12:49:00 Test Item Value Reference Range Comments WHITE BLOOD CELL COUNT (BEAKER) (test cczn=195) 10.7 K/ L 3.5-10.5 RED BLOOD CELL COUNT (BEAKER) (test ycqu=968) 2.74 M/ L 4.63-6.08 HEMOGLOBIN (BEAKER) (test lllh=776) 9.3 GM/DL 13.7-17.5 HEMATOCRIT (BEAKER) (test hdak=949) 28.4 % 40.1-51.0 MEAN CORPUSCULAR VOLUME (BEAKER) (test bwqt=035) 103.6 fL 79.0-92.2 MEAN CORPUSCULAR HEMOGLOBIN (BEAKER) (test 33.9 pg 25.7-32.2 fjpv=329) MEAN CORPUSCULAR HEMOGLOBIN CONC (BEAKER) (test 32.7 GM/DL 32.3-36.5 ckuu=573) RED CELL DISTRIBUTION WIDTH (BEAKER) (test 14.0 % 11.6-14.4 mjsv=891) PLATELET COUNT (BEAKER) (test rntn=890) 163 K/CU MM 150-450 MEAN PLATELET VOLUME (BEAKER) (test vefq=417) 10.9 fL 9.4-12.4 NUCLEATED RED BLOOD CELLS (BEAKER) (test 0 /100 WBC 0-0 dvyw=807) NEUTROPHILS RELATIVE PERCENT (BEAKER) (test 81 % efph=167) LYMPHOCYTES RELATIVE PERCENT (BEAKER) (test 9 % hsdv=365) MONOCYTES RELATIVE PERCENT (BEAKER) (test 1 % tdrn=759) EOSINOPHILS RELATIVE PERCENT (BEAKER) (test 5 % hhrt=603) BASOPHILS RELATIVE PERCENT (BEAKER) (test 0 % qysg=062) NEUTROPHILS ABSOLUTE COUNT (BEAKER) (test 8.71 K/ L 1.78-5.38 oukb=521) LYMPHOCYTES ABSOLUTE COUNT (BEAKER) (test 0.94 K/ L 1.32-3.57 muqh=958) MONOCYTES ABSOLUTE COUNT (BEAKER) (test 0.13 K/ L 0.30-0.82 mzhk=675) EOSINOPHILS ABSOLUTE COUNT (BEAKER) (test 0.53 K/ L 0.04-0.54 laqp=628) BASOPHILS ABSOLUTE COUNT (BEAKER) (test 0.04 K/ L 0.01-0.08 nsfp=979) IMMATURE GRANULOCYTES-RELATIVE PERCENT (BEAKER) 4 % 0-1 (test acuh=9221) BLOOD GAS, [id number] 11:37:00 Test Item Value Reference Range Comments PH ARTERIAL (BEAKER) (test mnhv=012) 7.43 7.35-7.45 PCO2 ARTERIAL (BEAKER) (test vlvq=147) 41 mmHg 35-45 PO2 ARTERIAL (BEAKER) (test qslr=273) 297 mmHg 80-90 O2 SATURATION ARTERIAL (BEAKER) (test wyfo=323) 99.7 % 96.0-97.0 HCO3 ARTERIAL (BEAKER) (test uhta=488) 27 mmol/L 21-29 BASE EXCESS ARTERIAL (BEAKER) (test roah=802) 2.0 mmol/L -2.0-3.0 PATIENT TEMPERATURE (BEAKER) (test oooi=5490) 35.1 C FIO2 (BEAKER) (test dutx=1122) 100.0 % GLUCOSE-STAT [id number] 11:37:00 Test Item Value Reference Range Comments GLUCOSE RANDOM (BEAKER) (test isre=145) 112 mg/dL 70-110 SODIUM NA-STAT [id number] 11:37:00 Test Item Value Reference Range Comments SODIUM (BEAKER) (test agls=725) 130 meq/L 135-148 HGB/HCT (H&H) - STAT [id number] 11:37:00 Test Item Value Reference Range Comments HEMOGLOBIN (BEAKER) (test jgtu=807) 9.9 g/dL 13.0-16.8 HEMATOCRIT (BEAKER) (test ikhg=942) 29.0 % 40.0-50.0 [id number] 11:35:00 Test Item Value Reference Range Comments ACTIVATED CLOTTING TIME 142 sec TESTED AT [address] (BEAKER) (test othv=101) [place] [address] POTASSIUM-STAT [id number] 11:35:00 Test Item Value Reference Range Comments POTASSIUM (BEAKER) (test zytu=059) 4.0 meq/L 3.6-5.5 [id number] 11:35:00 Test Item Value Reference Range Comments ACTIVATED CLOTTING TIME 224 sec TESTED AT [place] [address] [facility] (BEAKER) (test ytea=341) [place] [address] [id number] 11:35:00 Test Item Value Reference Range Comments ACTIVATED CLOTTING TIME 241 sec TESTED AT [place] [address] [facility] (BEAK[facility]) (test wsxi=365) [place] [id number] POCT-GLUCOSE [id number] 06:01:00 Test Item Value Reference Range Comments POC-GLUCOSE METER ([facility] 119 mg/dL 70-110 TESTED AT [address] (test uvlf=0092) [facility] [address] BASIC METABOLIC [id number] 03:31:00 Test Item Value Reference Range Comments SODIUM (BEAKER) (test 133 meq/L 136-145 ddjj=109) POTASSIUM (BEAKER) (test 4.2 meq/L 3.5-5.1 uvpo=960) CHLORIDE (BEAKER) (test 96 meq/L 98-107 ncco=680) CO2 (BEAKER) (test 29 meq/L 22-29 near=167) BLOOD UREA NITROGEN 28 mg/dL 7-21 (BEAKER) (test tedc=575) CREATININE (BEAKER) (test 4.83 mg/dL 0.57-1.25 bong=204) GLUCOSE RANDOM (BEAKER) 128 mg/dL 70-105 (test dbsc=808) CALCIUM (BEAKER) (test 8.8 mg/dL 8.4-10.2 fkxe=696) EGFR (BEAKER) (test 12 mL/min/1.73 sq m ESTIMATED GFR IS NOT uobt=2307) ACCURATE CREATININE CLEARANCE IN PREDICTING GLOMERULAR FILTRATION RATE. ESTIMATED GFR IS NOT APPLICABLE FOR DIALYSIS PATIENTS. BASIC METABOLIC [id number] 03:31:00 Test Item Value Reference Range Comments SODIUM (BEAKER) (test 133 meq/L 136-145 toqj=681) POTASSIUM (BEAKER) (test 4.2 meq/L 3.5-5.1 ekqc=567) CHLORIDE (BEAKER) (test 96 meq/L 98-107 rhxa=584) CO2 (BEAKER) (test 29 meq/L 22-29 jcup=500) BLOOD UREA NITROGEN 28 mg/dL 7-21 (BEAKER) (test nrxo=606) CREATININE (BEAKER) (test 4.84 mg/dL 0.57-1.25 nlzc=434) GLUCOSE RANDOM (BEAKER) 128 mg/dL 70-105 (test pwgv=600) CALCIUM (BEAKER) (test 8.9 mg/dL 8.4-10.2 snlq=673) EGFR (BEAKER) (test 12 mL/min/1.73 sq m ESTIMATED GFR IS NOT xmsk=8321) ACCURATE CREATININE CLEARANCE IN PREDICTING GLOMERULAR FILTRATION RATE. ESTIMATED GFR IS NOT APPLICABLE FOR DIALYSIS PATIENTS. [id number] 03:25:00 Test Item Value Reference Range Comments PHOSPHORUS (BEAKER) (test hgry=981) 2.4 mg/dL 2.3-4.7 [id number] 03:25:00 Test Item Value Reference Range Comments MAGNESIUM (BEAKER) (test finw=393) 1.9 mg/dL 1.6-2.6 CALCIUM, [id number] 03:22:00 Test Item Value Reference Range Comments CALCIUM IONIZED (BEAKER) (test jjod=961) 1.07 mmol/L 1.12-1.27 PH, BLOOD (BEAKER) (test melh=6654) 7.43 PROTHROMBIN [id number] 03:22:00 Test Item Value Reference Range Comments PROTIME (BEAKER) (test rbro=577) 14.9 seconds 11.7-14.7 INR (BEAKER) (test gsrt=275) 1.2 <=5.9 RECOMMENDED COUMADIN/WARFARIN INR THERAPY RANGESSTANDARD DOSE: 2.0 - 3.0 Includes: PROPHYLAXIS forvenous thrombosis, systemic embolization; TREATMENT for venous thrombosis and/or pulmonary embolus.HIGH RISK: Target INR is 2.5-3.5 for patients with mechanical heart valves.CBC W/PLT COUNT & AUTO [id number] 03:07:00 Test Item Value Reference Range Comments WHITE BLOOD CELL COUNT (BEAKER) (test idsi=701) 8.2 K/ L 3.5-10.5 RED BLOOD CELL COUNT (BEAKER) (test ehoh=937) 2.65 M/ L 4.63-6.08 HEMOGLOBIN (BEAKER) (test kgtk=666) 8.8 GM/DL 13.7-17.5 HEMATOCRIT (BEAKER) (test ivfg=755) 27.2 % 40.1-51.0 MEAN CORPUSCULAR VOLUME (BEAKER) (test iljm=085) 102.6 fL 79.0-92.2 MEAN CORPUSCULAR HEMOGLOBIN (BEAKER) (test 33.2 pg 25.7-32.2 ftwl=150) MEAN CORPUSCULAR HEMOGLOBIN CONC (BEAKER) (test 32.4 GM/DL 32.3-36.5 jxnv=738) RED CELL DISTRIBUTION WIDTH (BEAKER) (test 13.6 % 11.6-14.4 pccx=803) PLATELET COUNT (BEAKER) (test sssz=551) 173 K/CU MM 150-450 MEAN PLATELET VOLUME (BEAKER) (test znmy=389) 11.1 fL 9.4-12.4 NUCLEATED RED BLOOD CELLS (BEAKER) (test 0 /100 WBC 0-0 gwls=478) NEUTROPHILS RELATIVE PERCENT (BEAKER) (test 68 % yhar=589) LYMPHOCYTES RELATIVE PERCENT (BEAKER) (test 15 % krkt=606) MONOCYTES RELATIVE PERCENT (BEAKER) (test 9 % kmyj=760) EOSINOPHILS RELATIVE PERCENT (BEAKER) (test 7 % myvq=706) BASOPHILS RELATIVE PERCENT (BEAKER) (test 1 % bikx=273) NEUTROPHILS ABSOLUTE COUNT (BEAKER) (test 5.57 K/ L 1.78-5.38 ezdh=400) LYMPHOCYTES ABSOLUTE COUNT (BEAKER) (test 1.24 K/ L 1.32-3.57 brjq=536) MONOCYTES ABSOLUTE COUNT (BEAKER) (test 0.70 K/ L 0.30-0.82 wbqy=078) EOSINOPHILS ABSOLUTE COUNT (BEAKER) (test 0.61 K/ L 0.04-0.54 qijg=741) BASOPHILS ABSOLUTE COUNT (BEAKER) (test 0.05 K/ L 0.01-0.08 orwg=269) IMMATURE GRANULOCYTES-RELATIVE PERCENT (BEAKER) 1 % 0-1 (test spuz=9148) CBC W/PLT COUNT & AUTO [id number] 03:05:00 Test Item Value Reference Range Comments WHITE BLOOD CELL COUNT (BEAKER) (test ktyq=798) 8.3 K/ L 3.5-10.5 RED BLOOD CELL COUNT (BEAKER) (test byvu=691) 2.71 M/ L 4.63-6.08 HEMOGLOBIN (BEAKER) (test ogro=495) 8.9 GM/DL 13.7-17.5 HEMATOCRIT (BEAKER) (test laqh=014) 27.9 % 40.1-51.0 MEAN CORPUSCULAR VOLUME (BEAKER) (test pgcy=103) 103.0 fL 79.0-92.2 MEAN CORPUSCULAR HEMOGLOBIN (BEAKER) (test 32.8 pg 25.7-32.2 nezp=133) MEAN CORPUSCULAR HEMOGLOBIN CONC (BEAKER) (test 31.9 GM/DL 32.3-36.5 uyhj=043) RED CELL DISTRIBUTION WIDTH (BEAKER) (test 13.9 % 11.6-14.4 spia=904) PLATELET COUNT (BEAKER) (test kieh=084) 170 K/CU MM 150-450 MEAN PLATELET VOLUME (BEAKER) (test rudo=253) 11.1 fL 9.4-12.4 NUCLEATED RED BLOOD CELLS (BEAKER) (test 0 /100 WBC 0-0 watd=320) NEUTROPHILS RELATIVE PERCENT (BEAKER) (test 67 % tdmq=769) LYMPHOCYTES RELATIVE PERCENT (BEAKER) (test 15 % mzig=308) MONOCYTES RELATIVE PERCENT (BEAKER) (test 9 % jxuz=116) EOSINOPHILS RELATIVE PERCENT (BEAKER) (test 8 % iwmy=326) BASOPHILS RELATIVE PERCENT (BEAKER) (test 1 % cfca=701) NEUTROPHILS ABSOLUTE COUNT (BEAKER) (test 5.61 K/ L 1.78-5.38 cfjd=172) LYMPHOCYTES ABSOLUTE COUNT (BEAKER) (test 1.22 K/ L 1.32-3.57 niyt=808) MONOCYTES ABSOLUTE COUNT (BEAKER) (test 0.75 K/ L 0.30-0.82 oamg=803) EOSINOPHILS ABSOLUTE COUNT (BEAKER) (test 0.64 K/ L 0.04-0.54 vcym=649) BASOPHILS ABSOLUTE COUNT (BEAKER) (test 0.06 K/ L 0.01-0.08 auld=016) IMMATURE GRANULOCYTES-RELATIVE PERCENT (BEAKER) 1 % 0-1 (test vrvf=0088) POCT-GLUCOSE [id number] 02:55:00 Test Item Value Reference Range Comments POC-GLUCOSE METER (BEAKER) 187 mg/dL 70-110 TESTED AT [address] (test yrbd=5575) [place] [id number] POCT-GLUCOSE [id number] 17:24:00 Test Item Value Reference Range Comments POC-GLUCOSE METER (BEAKER) 153 mg/dL 70-110 TESTED AT [address] (test kepl=0223) [place] [id number] POCT-GLUCOSE [id number] 13:20:00 Test Item Value Reference Range Comments POC-GLUCOSE METER (BEAKER) 213 mg/dL 70-110 TESTED AT [address] (test hvbi=1380) [place] [id number] POCT-GLUCOSE [id number] 11:32:00 Test Item Value Reference Range Comments POC-GLUCOSE METER (BEAKER) 141 mg/dL 70-110 TESTED AT [address] (test lufw=2793) [place] [address] BASIC METABOLIC [id number] 08:25:00 Test Item Value Reference Range Comments SODIUM (BEAKER) (test 137 meq/L 136-145 qqxr=225) POTASSIUM (BEAKER) (test 3.9 meq/L 3.5-5.1 gdld=524) CHLORIDE (BEAKER) (test 99 meq/L 98-107 zeik=251) CO2 (BEAKER) (test 30 meq/L 22-29 ifvz=061) BLOOD UREA NITROGEN 19 mg/dL 7-21 (BEAKER) (test kmxy=693) CREATININE (BEAKER) (test 3.56 mg/dL 0.57-1.25 fzfr=982) GLUCOSE RANDOM (BEAKER) 119 mg/dL 70-105 (test pycv=321) CALCIUM (BEAKER) (test 8.7 mg/dL 8.4-10.2 gdzm=281) EGFR (BEAKER) (test 17 mL/min/1.73 sq m ESTIMATED GFR IS NOT zuzh=3625) ACCURATE CREATININE CLEARANCE IN PREDICTING GLOMERULAR FILTRATION RATE. ESTIMATED GFR IS NOT APPLICABLE FOR DIALYSIS PATIENTS. POCT-GLUCOSE [id number] 21:40:00 Test Item Value Reference Range Comments POC-GLUCOSE METER (BEAKER) 190 mg/dL 70-110 TESTED AT [address] (test pyyq=1085) [place] [address] POCT-GLUCOSE [id number] 18:26:00 Test Item Value Reference Range Comments POC-GLUCOSE METER (BEAKER) 178 mg/dL 70-110 TESTED AT [address] (test jlxu=0100) [place] [address] POCT-GLUCOSE [id number] 12:54:00 Test Item Value Reference Range Comments POC-GLUCOSE METER (BEAKER) 159 mg/dL 70-110 TESTED AT [address] (test lqhc=7627) [place] [address] BASIC METABOLIC [id number] 05:56:00 Test Item Value Reference Range Comments SODIUM (BEAKER) (test 136 meq/L 136-145 fbbd=038) POTASSIUM (BEAKER) (test 4.3 meq/L 3.5-5.1 mmdy=813) CHLORIDE (BEAKER) (test 100 meq/L 98-107 opko=285) CO2 (BEAKER) (test 28 meq/L 22-29 syuf=246) BLOOD UREA NITROGEN 37 mg/dL 7-21 (BEAKER) (test dczr=408) CREATININE (BEAKER) (test 5.04 mg/dL 0.57-1.25 blij=289) GLUCOSE RANDOM (BEAKER) 113 mg/dL 70-105 (test cvcp=652) CALCIUM (BEAKER) (test 8.8 mg/dL 8.4-10.2 zaur=502) EGFR (BEAKER) (test 11 mL/min/1.73 sq m ESTIMATED GFR IS NOT dsez=0258) ACCURATE CREATININE CLEARANCE IN PREDICTING GLOMERULAR FILTRATION RATE. ESTIMATED GFR IS NOT APPLICABLE FOR DIALYSIS PATIENTS. [id number] 05:37:00 Test Item Value Reference Range Comments MAGNESIUM (BEAKER) (test lbbz=174) 2.1 mg/dL 1.6-2.6 POCT-GLUCOSE [id number] 21:49:00 Test Item Value Reference Range Comments POC-GLUCOSE METER (BEAKER) 194 mg/dL 70-110 TESTED AT [address] (test vvyw=8320) [facility] [address] POCT-GLUCOSE [id number] 18:02:00 Test Item Value Reference Range Comments POC-GLUCOSE METER (BEAKER) 195 mg/dL 70-110 TESTED AT [address] (test jisa=3475) [facility] [address] POCT-GLUCOSE [id number] 12:09:00 Test Item Value Reference Range Comments POC-GLUCOSE METER (BEAKER) 217 mg/dL 70-110 TESTED AT [address] (test ehfl=2464) [facility] [address] POCT-GLUCOSE [id number] 10:36:00 Test Item Value Reference Range Comments POC-GLUCOSE METER (BEAKER) 121 mg/dL 70-110 TESTED AT [address] (test hfju=0615) [facility] [address] POCT-GLUCOSE [id number] 10:36:00 Test Item Value Reference Range Comments POC-GLUCOSE METER (BEAKER) 100 mg/dL 70-110 TESTED AT [address] (test qrvh=9146) [facility] [address] POCT-GLUCOSE [id number] 08:27:00 Test Item Value Reference Range Comments POC-GLUCOSE METER (BEAKER) 112 mg/dL 70-110 TESTED AT [facility] [address] [facility] (test dpkk=4239) [facility] [address] BASIC METABOLIC [id number] 06:18:00 Test Item Value Reference Range Comments SODIUM (BEAKER) (test 139 meq/L 136-145 vdvv=510) POTASSIUM (BEAKER) (test 4.1 meq/L 3.5-5.1 ocut=980) CHLORIDE (BEAKER) (test 104 meq/L 98-107 mooi=107) CO2 (BEAKER) (test 29 meq/L 22-29 ftov=823) BLOOD UREA NITROGEN 26 mg/dL 7-21 (BEAKER) (test tjxn=714) CREATININE (BEAKER) (test 3.93 mg/dL 0.57-1.25 qtrt=570) GLUCOSE RANDOM (BEAKER) 104 mg/dL 70-105 (test uthi=728) CALCIUM (BEAKER) (test 8.5 mg/dL 8.4-10.2 fpqp=030) EGFR (BEAKER) (test 15 mL/min/1.73 sq m ESTIMATED GFR IS NOT kkoe=6441) ACCURATE CREATININE CLEARANCE IN PREDICTING GLOMERULAR FILTRATION RATE. ESTIMATED GFR IS NOT APPLICABLE FOR DIALYSIS PATIENTS. [id number] 06:17:00 Test Item Value Reference Range Comments PHOSPHORUS (BEAKER) (test hwfx=361) 2.5 mg/dL 2.3-4.7 [id number] 06:17:00 Test Item Value Reference Range Comments MAGNESIUM (BEAKER) (test zqbb=339) 2.0 mg/dL 1.6-2.6 CBC W/PLT COUNT & AUTO [id number] 05:48:00 Test Item Value Reference Range Comments WHITE BLOOD CELL COUNT (BEAKER) (test nyka=619) 7.0 K/ L 3.5-10.5 RED BLOOD CELL COUNT (BEAKER) (test rdpy=100) 2.74 M/ L 4.63-6.08 HEMOGLOBIN (BEAKER) (test ewuv=531) 9.0 GM/DL 13.7-17.5 HEMATOCRIT (BEAKER) (test ooby=519) 27.9 % 40.1-51.0 MEAN CORPUSCULAR VOLUME (BEAKER) (test cedd=334) 101.8 fL 79.0-92.2 MEAN CORPUSCULAR HEMOGLOBIN (BEAKER) (test 32.8 pg 25.7-32.2 cmnd=508) MEAN CORPUSCULAR HEMOGLOBIN CONC (BEAKER) (test 32.3 GM/DL 32.3-36.5 mtds=972) RED CELL DISTRIBUTION WIDTH (BEAKER) (test 13.4 % 11.6-14.4 alls=947) PLATELET COUNT (BEAKER) (test efst=968) 165 K/CU MM 150-450 MEAN PLATELET VOLUME (BEAKER) (test bwei=881) 11.5 fL 9.4-12.4 NUCLEATED RED BLOOD CELLS (BEAKER) (test 0 /100 WBC 0-0 giea=982) NEUTROPHILS RELATIVE PERCENT (BEAKER) (test 62 % pgwm=040) LYMPHOCYTES RELATIVE PERCENT (BEAKER) (test 21 % zwkz=121) MONOCYTES RELATIVE PERCENT (BEAKER) (test 11 % audp=459) EOSINOPHILS RELATIVE PERCENT (BEAKER) (test 5 % tppi=085) BASOPHILS RELATIVE PERCENT (BEAKER) (test 1 % emdh=412) NEUTROPHILS ABSOLUTE COUNT (BEAKER) (test 4.35 K/ L 1.78-5.38 segi=620) LYMPHOCYTES ABSOLUTE COUNT (BEAKER) (test 1.44 K/ L 1.32-3.57 gdcm=445) MONOCYTES ABSOLUTE COUNT (BEAKER) (test 0.78 K/ L 0.30-0.82 uvjv=478) EOSINOPHILS ABSOLUTE COUNT (BEAKER) (test 0.35 K/ L 0.04-0.54 apsn=628) BASOPHILS ABSOLUTE COUNT (BEAKER) (test 0.07 K/ L 0.01-0.08 eywb=098) IMMATURE GRANULOCYTES-RELATIVE PERCENT (BEAKER) 1 % 0-1 (test dwnk=9650) POCT-GLUCOSE [id number] 21:14:00 Test Item Value Reference Range Comments POC-GLUCOSE METER (BEAKER) 188 mg/dL 70-110 TESTED AT [facility] [address] [facility] (test rvpn=2702) [facility] [address] POCT-GLUCOSE [id number] 17:16:00 Test Item Value Reference Range Comments POC-GLUCOSE METER (BEAKER) 199 mg/dL 70-110 TESTED AT [facility] [address] [facility] (test ktgg=3011) [facility] [address] POCT-GLUCOSE [id number] 12:41:00 Test Item Value Reference Range Comments POC-GLUCOSE METER (BEAKER) 136 mg/dL 70-110 TESTED AT [facility] [address] [facility] (test rubf=9211) [facility] [address] CALCIUM, [id number] 08:02:00 Test Item Value Reference Range Comments CALCIUM IONIZED (BEAKER) (test kwad=628) 1.08 mmol/L 1.12-1.27 PH, BLOOD (BEAKER) (test unhg=6636) 7.42 COMPREHENSIVE METABOLIC [id number] 07:00:00 Test Item Value Reference Range Comments TOTAL PROTEIN (BEAKER) 6.5 gm/dL 6.0-8.3 (test bpyd=854) ALBUMIN (BEAKER) (test 2.4 g/dL 3.5-5.0 zqzn=7285) ALKALINE PHOSPHATASE 78 U/L 40-150 (BEAKER) (test hbgo=822) BILIRUBIN TOTAL (BEAKER) 0.4 mg/dL 0.2-1.2 (test uswc=656) SODIUM (BEAKER) (test 129 meq/L 136-145 sufo=994) POTASSIUM (BEAKER) (test 4.9 meq/L 3.5-5.1 izyp=710) CHLORIDE (BEAKER) (test 93 meq/L 98-107 lzdh=716) CO2 (BEAKER) (test 26 meq/L 22-29 acmm=729) BLOOD UREA NITROGEN 50 mg/dL 7-21 (BEAKER) (test ussg=542) CREATININE (BEAKER) (test 6.18 mg/dL 0.57-1.25 ydwz=444) GLUCOSE RANDOM (BEAKER) 104 mg/dL 70-105 (test fvbx=042) CALCIUM (BEAKER) (test 8.9 mg/dL 8.4-10.2 pgct=581) AST (SGOT) (BEAKER) (test 22 U/L 5-34 nsti=805) ALT (SGPT) (BEAKER) (test < U/L 6-55 voxx=158) EGFR (BEAKER) (test 9 mL/min/1.73 sq m ESTIMATED GFR IS NOT tvla=9980) ACCURATE CREATININE CLEARANCE IN PREDICTING GLOMERULAR FILTRATION RATE. ESTIMATED GFR IS NOT APPLICABLE FOR DIALYSIS PATIENTS. [id number] 06:55:00 Test Item Value Reference Range Comments PHOSPHORUS (BEAKER) (test spyc=425) 4.1 mg/dL 2.3-4.7 [id number] 06:55:00 Test Item Value Reference Range Comments MAGNESIUM (BEAKER) (test qizg=021) 2.2 mg/dL 1.6-2.6 CBC W/PLT COUNT & AUTO [id number] 06:21:00 Test Item Value Reference Range Comments WHITE BLOOD CELL COUNT (BEAKER) (test txhg=265) 7.9 K/ L 3.5-10.5 RED BLOOD CELL COUNT (BEAKER) (test oehg=548) 3.13 M/ L 4.63-6.08 HEMOGLOBIN (BEAKER) (test gqir=994) 10.3 GM/DL 13.7-17.5 HEMATOCRIT (BEAKER) (test xuit=651) 31.0 % 40.1-51.0 MEAN CORPUSCULAR VOLUME (BEAKER) (test dfgw=692) 99.0 fL 79.0-92.2 MEAN CORPUSCULAR HEMOGLOBIN (BEAKER) (test 32.9 pg 25.7-32.2 wuqg=702) MEAN CORPUSCULAR HEMOGLOBIN CONC (BEAKER) (test 33.2 GM/DL 32.3-36.5 eabq=417) RED CELL DISTRIBUTION WIDTH (BEAKER) (test 13.2 % 11.6-14.4 qgut=898) PLATELET COUNT (BEAKER) (test rjmp=854) 181 K/CU MM 150-450 MEAN PLATELET VOLUME (BEAKER) (test zeij=200) 11.1 fL 9.4-12.4 NUCLEATED RED BLOOD CELLS (BEAKER) (test 0 /100 WBC 0-0 iuzc=674) NEUTROPHILS RELATIVE PERCENT (BEAKER) (test 69 % njck=028) LYMPHOCYTES RELATIVE PERCENT (BEAKER) (test 15 % kzsf=671) MONOCYTES RELATIVE PERCENT (BEAKER) (test 10 % mvhi=331) EOSINOPHILS RELATIVE PERCENT (BEAKER) (test 5 % ymga=556) BASOPHILS RELATIVE PERCENT (BEAKER) (test 1 % ndkn=043) NEUTROPHILS ABSOLUTE COUNT (BEAKER) (test 5.39 K/ L 1.78-5.38 horn=163) LYMPHOCYTES ABSOLUTE COUNT (BEAKER) (test 1.20 K/ L 1.32-3.57 yxoq=672) MONOCYTES ABSOLUTE COUNT (BEAKER) (test 0.75 K/ L 0.30-0.82 yawa=772) EOSINOPHILS ABSOLUTE COUNT (BEAKER) (test 0.42 K/ L 0.04-0.54 nmpl=345) BASOPHILS ABSOLUTE COUNT (BEAKER) (test 0.06 K/ L 0.01-0.08 exgj=372) IMMATURE GRANULOCYTES-RELATIVE PERCENT (BEAKER) 1 % 0-1 (test oktx=5272) POCT-GLUCOSE [id number] 21:04:00 Test Item Value Reference Range Comments POC-GLUCOSE METER (BEAKER) 163 mg/dL 70-110 TESTED AT [address] (test jhbn=9758) [place] [id number] POCT-GLUCOSE [id number] 17:12:00 Test Item Value Reference Range Comments POC-GLUCOSE METER (BEAKER) 121 mg/dL 70-110 TESTED AT [address] (test hycy=5857) [facility] [id number] POCT-GLUCOSE [id number] 12:56:00 Test Item Value Reference Range Comments POC-GLUCOSE METER (BEAKER) 144 mg/dL 70-110 TESTED AT [address] (test ssit=1470) [place] [id number] POCT-GLUCOSE [id number] 09:36:00 Test Item Value Reference Range Comments POC-GLUCOSE METER (BEAKER) 159 mg/dL 70-110 TESTED AT [address] (test urjq=7472) [facility] [id number] BASIC METABOLIC [id number] 08:48:00 Test Item Value Reference Range Comments SODIUM (BEAKER) (test 130 meq/L 136-145 tuzx=065) POTASSIUM (BEAKER) (test 4.5 meq/L 3.5-5.1 voie=451) CHLORIDE (BEAKER) (test 93 meq/L 98-107 cmug=360) CO2 (BEAKER) (test 25 meq/L 22-29 qksl=222) BLOOD UREA NITROGEN 40 mg/dL 7-21 (BEAKER) (test epqr=539) CREATININE (BEAKER) (test 5.37 mg/dL 0.57-1.25 lfns=014) GLUCOSE RANDOM (BEAKER) 114 mg/dL 70-105 (test qpqa=172) CALCIUM (BEAKER) (test 8.8 mg/dL 8.4-10.2 nhgw=825) EGFR (BEAKER) (test 10 mL/min/1.73 sq m ESTIMATED GFR IS NOT xcfz=2973) ACCURATE CREATININE CLEARANCE IN PREDICTING GLOMERULAR FILTRATION RATE. ESTIMATED GFR IS NOT APPLICABLE FOR DIALYSIS PATIENTS. [id number] 08:45:00 Test Item Value Reference Range Comments PHOSPHORUS (BEAKER) (test yhku=278) 3.8 mg/dL 2.3-4.7 [id number] 08:45:00 Test Item Value Reference Range Comments MAGNESIUM (BEAKER) (test hczx=515) 1.9 mg/dL 1.6-2.6 CBC W/PLT COUNT & AUTO [id number] 05:35:00 Test Item Value Reference Range Comments WHITE BLOOD CELL COUNT (BEAKER) (test isyh=269) 7.5 K/ L 3.5-10.5 RED BLOOD CELL COUNT (BEAKER) (test pwlp=840) 3.03 M/ L 4.63-6.08 HEMOGLOBIN (BEAKER) (test gdly=708) 10.1 GM/DL 13.7-17.5 HEMATOCRIT (BEAKER) (test ibqf=678) 30.2 % 40.1-51.0 MEAN CORPUSCULAR VOLUME (BEAKER) (test zjma=204) 99.7 fL 79.0-92.2 MEAN CORPUSCULAR HEMOGLOBIN (BEAKER) (test 33.3 pg 25.7-32.2 gumu=854) MEAN CORPUSCULAR HEMOGLOBIN CONC (BEAKER) (test 33.4 GM/DL 32.3-36.5 qlju=908) RED CELL DISTRIBUTION WIDTH (BEAKER) (test 13.1 % 11.6-14.4 ifmb=496) PLATELET COUNT (BEAKER) (test tlhj=537) 180 K/CU MM 150-450 MEAN PLATELET VOLUME (BEAKER) (test xaku=758) 11.4 fL 9.4-12.4 NUCLEATED RED BLOOD CELLS (BEAKER) (test 0 /100 WBC 0-0 vfqv=956) NEUTROPHILS RELATIVE PERCENT (BEAKER) (test 68 % lzxt=834) LYMPHOCYTES RELATIVE PERCENT (BEAKER) (test 16 % decx=062) MONOCYTES RELATIVE PERCENT (BEAKER) (test 11 % yime=067) EOSINOPHILS RELATIVE PERCENT (BEAKER) (test 5 % chiu=508) BASOPHILS RELATIVE PERCENT (BEAKER) (test 1 % hmvn=043) NEUTROPHILS ABSOLUTE COUNT (BEAKER) (test 5.06 K/ L 1.78-5.38 wwbi=467) LYMPHOCYTES ABSOLUTE COUNT (BEAKER) (test 1.16 K/ L 1.32-3.57 vdzx=386) MONOCYTES ABSOLUTE COUNT (BEAKER) (test 0.82 K/ L 0.30-0.82 dthr=109) EOSINOPHILS ABSOLUTE COUNT (BEAKER) (test 0.37 K/ L 0.04-0.54 miib=224) BASOPHILS ABSOLUTE COUNT (BEAKER) (test 0.05 K/ L 0.01-0.08 akhx=099) IMMATURE GRANULOCYTES-RELATIVE PERCENT (BEAKER) 1 % 0-1 (test kbpa=2669) POCT-GLUCOSE [id number] 05:35:00 Test Item Value Reference Range Comments POC-GLUCOSE METER (BEAKER) 140 mg/dL 70-110 TESTED AT [address] (test fqpb=0028) [place] [id number] POCT-GLUCOSE [id number] 21:25:00 Test Item Value Reference Range Comments POC-GLUCOSE METER (BEAKER) 154 mg/dL 70-110 TESTED AT [address] (test ndsk=8967) [facility] [address] POCT-GLUCOSE [id number] 17:24:00 Test Item Value Reference Range Comments POC-GLUCOSE METER (BEAKER) 167 mg/dL 70-110 TESTED AT [address] (test bzmz=2212) [place] [id number] POCT-GLUCOSE [id number] 14:06:00 Test Item Value Reference Range Comments POC-GLUCOSE METER (BEAKER) 179 mg/dL 70-110 TESTED AT [address] (test puwi=9565) [place] [id number] POCT-GLUCOSE [id number] 11:57:00 Test Item Value Reference Range Comments POC-GLUCOSE METER (BEAKER) 186 mg/dL 70-110 TESTED AT [facility] [address] (test ovic=0194) [facility] [address] [id number] 09:09:00 Test Item Value Reference Range Comments FERRITIN (BEAKER) (test xcrg=305) 683 ng/mL 5-275 POCT-GLUCOSE [id number] 09:08:00 Test Item Value Reference Range Comments POC-GLUCOSE METER (BEAKER) 129 mg/dL 70-110 TESTED AT [address] (test ieol=8717) [facility] [address] POCT-GLUCOSE [id number] 08:19:00 Test Item Value Reference Range Comments POC-GLUCOSE METER (BEAKER) 70 mg/dL 70-110 TESTED AT [address] (test kfay=2435) [facility] [address] POCT-GLUCOSE [id number] 07:50:00 Test Item Value Reference Range Comments POC-GLUCOSE METER (BEAKER) 61 mg/dL 70-110 Notified TAMERA CISNEROS/TESTED AT [facility] (test etin=9059) [address] [place], [place] [id number] IRON, TIBC, % SAT. (WITHOUT FERRITIN)[id number] 07:14:00 Test Item Value Reference Range Comments IRON (BEAKER) (test cify=496) 51.0 ug/dL 40.0-160.0 TOTAL IRON BINDING CAPACITY (BEAKER) (test 149 ug/dL 250-450 jzrv=016) IRON % SATURATION (2) (BEAKER) (test mcwl=7103) 34 % 20-55 BASIC METABOLIC [id number] 06:20:00 Test Item Value Reference Range Comments SODIUM (BEAKER) (test 134 meq/L 136-145 goza=586) POTASSIUM (BEAKER) (test 4.1 meq/L 3.5-5.1 jcjs=057) CHLORIDE (BEAKER) (test 97 meq/L 98-107 dqgg=820) CO2 (BEAKER) (test 27 meq/L 22-29 lmkn=702) BLOOD UREA NITROGEN 26 mg/dL 7-21 (BEAKER) (test azko=913) CREATININE (BEAKER) (test 3.93 mg/dL 0.57-1.25 tprc=821) GLUCOSE RANDOM (BEAKER) 66 mg/dL 70-105 (test gxwe=568) CALCIUM (BEAKER) (test 8.7 mg/dL 8.4-10.2 vqqb=608) EGFR (BEAKER) (test 15 mL/min/1.73 sq m ESTIMATED GFR IS NOT hnzw=7361) ACCURATE CREATININE CLEARANCE IN PREDICTING GLOMERULAR FILTRATION RATE. ESTIMATED GFR IS NOT APPLICABLE FOR DIALYSIS PATIENTS. [id number] 06:15:00 Test Item Value Reference Range Comments PHOSPHORUS (BEAKER) (test rmra=242) 3.3 mg/dL 2.3-4.7 [id number] 06:15:00 Test Item Value Reference Range Comments MAGNESIUM (BEAKER) (test oxtl=558) 1.9 mg/dL 1.6-2.6 RETICULOCYTE [id number] 05:23:00 Test Item Value Reference Range Comments RETICULOCYTE COUNT PCT (BEAKER) (test linj=842) 2.0 % 0.5-1.8 CBC W/PLT COUNT & AUTO [id number] 05:23:00 Test Item Value Reference Range Comments WHITE BLOOD CELL COUNT (BEAKER) (test raxu=121) 7.9 K/ L 3.5-10.5 RED BLOOD CELL COUNT (BEAKER) (test kkps=336) 3.01 M/ L 4.63-6.08 HEMOGLOBIN (BEAKER) (test ijcz=338) 10.2 GM/DL 13.7-17.5 HEMATOCRIT (BEAKER) (test ouzk=985) 30.3 % 40.1-51.0 MEAN CORPUSCULAR VOLUME (BEAKER) (test pduf=650) 100.7 fL 79.0-92.2 MEAN CORPUSCULAR HEMOGLOBIN (BEAKER) (test 33.9 pg 25.7-32.2 xptk=635) MEAN CORPUSCULAR HEMOGLOBIN CONC (BEAKER) (test 33.7 GM/DL 32.3-36.5 kmib=274) RED CELL DISTRIBUTION WIDTH (BEAKER) (test 13.4 % 11.6-14.4 lhhj=730) PLATELET COUNT (BEAKER) (test rped=243) 184 K/CU MM 150-450 MEAN PLATELET VOLUME (BEAKER) (test pkwu=418) 11.2 fL 9.4-12.4 NUCLEATED RED BLOOD CELLS (BEAKER) (test 0 /100 WBC 0-0 gdnd=454) NEUTROPHILS RELATIVE PERCENT (BEAKER) (test 67 % xlmd=154) LYMPHOCYTES RELATIVE PERCENT (BEAKER) (test 16 % bnbw=300) MONOCYTES RELATIVE PERCENT (BEAKER) (test 12 % owjl=177) EOSINOPHILS RELATIVE PERCENT (BEAKER) (test 4 % rfax=710) BASOPHILS RELATIVE PERCENT (BEAKER) (test 1 % lukk=884) NEUTROPHILS ABSOLUTE COUNT (BEAKER) (test 5.28 K/ L 1.78-5.38 uukp=569) LYMPHOCYTES ABSOLUTE COUNT (BEAKER) (test 1.27 K/ L 1.32-3.57 wnoi=835) MONOCYTES ABSOLUTE COUNT (BEAKER) (test 0.98 K/ L 0.30-0.82 etft=960) EOSINOPHILS ABSOLUTE COUNT (BEAKER) (test 0.29 K/ L 0.04-0.54 rxxk=923) BASOPHILS ABSOLUTE COUNT (BEAKER) (test 0.05 K/ L 0.01-0.08 nrwy=838) IMMATURE GRANULOCYTES-RELATIVE PERCENT (BEAKER) 0 % 0-1 (test tjvv=5617) POCT-GLUCOSE [id number] 21:10:00 Test Item Value Reference Range Comments POC-GLUCOSE METER (BEAKER) 142 mg/dL 70-110 TESTED AT [address] (test yjsf=1984) [place] [address] POCT-GLUCOSE [id number] 17:40:00 Test Item Value Reference Range Comments POC-GLUCOSE METER (BEAKER) 162 mg/dL 70-110 TESTED AT [address] (test jmem=9073) [place] [id number] POCT-GLUCOSE [id number] 12:21:00 Test Item Value Reference Range Comments POC-GLUCOSE METER (BEAKER) 137 mg/dL 70-110 TESTED AT [address] (test cyfx=9421) [place] [id number] COMPREHENSIVE METABOLIC [id number] 06:38:00 Test Item Value Reference Range Comments TOTAL PROTEIN (BEAKER) 6.2 gm/dL 6.0-8.3 (test jcev=956) ALBUMIN (BEAKER) (test 2.3 g/dL 3.5-5.0 vqtv=2847) ALKALINE PHOSPHATASE 70 U/L 40-150 (BEAKER) (test mivt=832) BILIRUBIN TOTAL (BEAKER) 0.4 mg/dL 0.2-1.2 (test sdrn=679) SODIUM (BEAKER) (test 133 meq/L 136-145 jgip=967) POTASSIUM (BEAKER) (test 4.6 meq/L 3.5-5.1 bfqn=374) CHLORIDE (BEAKER) (test 98 meq/L 98-107 fcnv=563) CO2 (BEAKER) (test 25 meq/L 22-29 vehk=239) BLOOD UREA NITROGEN 46 mg/dL 7-21 (BEAKER) (test nonz=916) CREATININE (BEAKER) (test 6.64 mg/dL 0.57-1.25 ualg=937) GLUCOSE RANDOM (BEAKER) 51 mg/dL 70-105 (test pjfg=993) CALCIUM (BEAKER) (test 8.6 mg/dL 8.4-10.2 osfk=448) AST (SGOT) (BEAKER) (test 21 U/L 5-34 zqxx=840) ALT (SGPT) (BEAKER) (test < U/L 6-55 jfhp=811) EGFR (BEAKER) (test 8 mL/min/1.73 sq m ESTIMATED GFR IS NOT ibxk=5955) ACCURATE CREATININE CLEARANCE IN PREDICTING GLOMERULAR FILTRATION RATE. ESTIMATED GFR IS NOT APPLICABLE FOR DIALYSIS PATIENTS. [id number] 06:34:00 Test Item Value Reference Range Comments PHOSPHORUS (BEAKER) (test fpgq=172) 4.8 mg/dL 2.3-4.7 [id number] 06:34:00 Test Item Value Reference Range Comments MAGNESIUM (BEAKER) (test xtha=735) 2.1 mg/dL 1.6-2.6 CBC W/PLT COUNT & AUTO [id number] 05:21:00 Test Item Value Reference Range Comments WHITE BLOOD CELL COUNT (BEAKER) (test rucl=257) 8.2 K/ L 3.5-10.5 RED BLOOD CELL COUNT (BEAKER) (test rdho=018) 3.03 M/ L 4.63-6.08 HEMOGLOBIN (BEAKER) (test bcbm=893) 9.9 GM/DL 13.7-17.5 HEMATOCRIT (BEAKER) (test exsx=324) 30.1 % 40.1-51.0 MEAN CORPUSCULAR VOLUME (BEAKER) (test ywgw=111) 99.3 fL 79.0-92.2 MEAN CORPUSCULAR HEMOGLOBIN (BEAKER) (test 32.7 pg 25.7-32.2 hybc=818) MEAN CORPUSCULAR HEMOGLOBIN CONC (BEAKER) (test 32.9 GM/DL 32.3-36.5 lufi=873) RED CELL DISTRIBUTION WIDTH (BEAKER) (test 13.5 % 11.6-14.4 teuj=036) PLATELET COUNT (BEAKER) (test rrtd=568) 192 K/CU MM 150-450 MEAN PLATELET VOLUME (BEAKER) (test umhb=681) 11.1 fL 9.4-12.4 NUCLEATED RED BLOOD CELLS (BEAKER) (test 0 /100 WBC 0-0 zjfd=518) NEUTROPHILS RELATIVE PERCENT (BEAKER) (test 69 % zsda=515) LYMPHOCYTES RELATIVE PERCENT (BEAKER) (test 15 % qife=447) MONOCYTES RELATIVE PERCENT (BEAKER) (test 9 % tozd=878) EOSINOPHILS RELATIVE PERCENT (BEAKER) (test 5 % rezi=420) BASOPHILS RELATIVE PERCENT (BEAKER) (test 1 % bido=271) NEUTROPHILS ABSOLUTE COUNT (BEAKER) (test 5.65 K/ L 1.78-5.38 njxa=238) LYMPHOCYTES ABSOLUTE COUNT (BEAKER) (test 1.24 K/ L 1.32-3.57 sdhp=295) MONOCYTES ABSOLUTE COUNT (BEAKER) (test 0.74 K/ L 0.30-0.82 ejmm=367) EOSINOPHILS ABSOLUTE COUNT (BEAKER) (test 0.44 K/ L 0.04-0.54 xlum=789) BASOPHILS ABSOLUTE COUNT (BEAKER) (test 0.05 K/ L 0.01-0.08 wkah=317) IMMATURE GRANULOCYTES-RELATIVE PERCENT (BEAKER) 0 % 0-1 (test ljzb=6220) POCT-GLUCOSE [id number] 21:00:00 Test Item Value Reference Range Comments POC-GLUCOSE METER (BEAKER) 103 mg/dL 70-110 TESTED AT [facility] [address] [facility] (test hlcv=7277) [facility] [address] RAD, CHEST, 1 VIEW, NON [id number] 19:51:00Reason for exam:->CoughShould this be performed at the bedside?->YesFINAL REPORT INDICATION: Cough COMPARISON:None. TECHNIQUE: Chest radiograph, single view, portable technique. FINDINGS / IMPRESSION: There is no discrete consolidation that wouldindicate pneumonia. Heart shadow is prominent which may be related to portable technique. No pulmonary edema or pleural effusion demonstrated. No pneumothorax. Left subclavian and axillary stent is noted. Osseous structures unremarkable. Signed: Rian Shelley MDReport Verified Date/Time: 08/22/2018 19:51:52 Reading Location: [address] Consult Reading Room [id number] 19:16:00 Test Item Value Reference Range Comments PHOSPHORUS (BEAKER) (test bzrq=246) 4.4 mg/dL 2.3-4.7 Send if you can add on from earlier AM labsPOCT-GLUCOSE [id number] 17:53:00 Test Item Value Reference Range Comments POC-GLUCOSE METER (BEAKER) 134 mg/dL 70-110 TESTED AT [address] (test gnzy=3218) [place] [address] HEPATITIS B SURFACE [id number] 13:45:00 Test Item Value Reference Range Comments HEPATITIS B SURFACE ANTIGEN (2) (BEAKER) (test Nonreactive Nonreactive ypvj=1440) POCT-GLUCOSE [id number] 10:34:00 Test Item Value Reference Range Comments POC-GLUCOSE METER (BEAKER) 74 mg/dL 70-110 TESTED AT [address] (test ixvn=5252) [place] [id number] POCT-GLUCOSE [id number] 07:42:00 Test Item Value Reference Range Comments POC-GLUCOSE METER (BEAKER) 118 mg/dL 70-110 TESTED AT [address] (test eaqj=3531) [place] [id number] POCT-GLUCOSE [id number] 06:39:00 Test Item Value Reference Range Comments POC-GLUCOSE METER (BEAKER) 57 mg/dL 70-110 Notified TAMERA CISNEROS/TESTED AT [facility] (test iedq=5342) [address] [place] [address] BASIC METABOLIC [id number] 04:55:00 Test Item Value Reference Range Comments SODIUM (BEAKER) (test 136 meq/L 136-145 uuff=666) POTASSIUM (BEAKER) (test 4.1 meq/L 3.5-5.1 fuhc=759) CHLORIDE (BEAKER) (test 98 meq/L 98-107 hmkh=144) CO2 (BEAKER) (test 29 meq/L 22-29 xlph=790) BLOOD UREA NITROGEN 33 mg/dL 7-21 (BEAKER) (test foou=178) CREATININE (BEAKER) (test 5.15 mg/dL 0.57-1.25 lyeo=924) GLUCOSE RANDOM (BEAKER) 48 mg/dL 70-105 (test foha=570) CALCIUM (BEAKER) (test 8.8 mg/dL 8.4-10.2 gfwf=453) EGFR (BEAKER) (test 11 mL/min/1.73 sq m ESTIMATED GFR IS NOT ylyr=0034) ACCURATE CREATININE CLEARANCE IN PREDICTING GLOMERULAR FILTRATION RATE. ESTIMATED GFR IS NOT APPLICABLE FOR DIALYSIS PATIENTS. [id number] 04:52:00 Test Item Value Reference Range Comments MAGNESIUM (BEAKER) (test jllp=662) 2.1 mg/dL 1.6-2.6 [id number] 04:47:00 Test Item Value Reference Range Comments PROTIME (BEAKER) (test yyln=355) 16.0 seconds 11.7-14.7 INR (BEAKER) (test otyc=757) 1.3 <=5.9 PARTIAL THROMBOPLASTIN TIME (BEAKER) (test 51.1 seconds 22.5-36.0 eqdc=875) RECOMMENDED COUMADIN/WARFARIN INR THERAPY RANGESSTANDARD DOSE: 2.0 - 3.0 Includes: PROPHYLAXIS forvenous thrombosis, systemic embolization; TREATMENT for venous thrombosis and/or pulmonary embolus.HIGH RISK: Target INR is 2.5-3.5 for patients with mechanical heart valves.CBC W/PLT COUNT & AUTO [id number] 04:36:00 Test Item Value Reference Range Comments WHITE BLOOD CELL COUNT (BEAKER) (test ppfl=449) 9.1 K/ L 3.5-10.5 RED BLOOD CELL COUNT (BEAKER) (test eaft=871) 3.12 M/ L 4.63-6.08 HEMOGLOBIN (BEAKER) (test vorl=655) 10.2 GM/DL 13.7-17.5 HEMATOCRIT (BEAKER) (test nkew=472) 31.9 % 40.1-51.0 MEAN CORPUSCULAR VOLUME (BEAKER) (test jxvw=683) 102.2 fL 79.0-92.2 MEAN CORPUSCULAR HEMOGLOBIN (BEAKER) (test 32.7 pg 25.7-32.2 mrlg=045) MEAN CORPUSCULAR HEMOGLOBIN CONC (BEAKER) (test 32.0 GM/DL 32.3-36.5 mebf=863) RED CELL DISTRIBUTION WIDTH (BEAKER) (test 14.0 % 11.6-14.4 biku=587) PLATELET COUNT (BEAKER) (test bckr=138) 194 K/CU MM 150-450 MEAN PLATELET VOLUME (BEAKER) (test xpca=867) 11.2 fL 9.4-12.4 NUCLEATED RED BLOOD CELLS (BEAKER) (test 0 /100 WBC 0-0 adpl=976) NEUTROPHILS RELATIVE PERCENT (BEAKER) (test 73 % woxl=654) LYMPHOCYTES RELATIVE PERCENT (BEAKER) (test 11 % vhsm=687) MONOCYTES RELATIVE PERCENT (BEAKER) (test 10 % dlyc=751) EOSINOPHILS RELATIVE PERCENT (BEAKER) (test 5 % wwjx=786) BASOPHILS RELATIVE PERCENT (BEAKER) (test 0 % mjbi=373) NEUTROPHILS ABSOLUTE COUNT (BEAKER) (test 6.63 K/ L 1.78-5.38 lmnq=961) LYMPHOCYTES ABSOLUTE COUNT (BEAKER) (test 1.04 K/ L 1.32-3.57 dqzi=445) MONOCYTES ABSOLUTE COUNT (BEAKER) (test 0.92 K/ L 0.30-0.82 mcym=963) EOSINOPHILS ABSOLUTE COUNT (BEAKER) (test 0.44 K/ L 0.04-0.54 lmno=122) BASOPHILS ABSOLUTE COUNT (BEAKER) (test 0.04 K/ L 0.01-0.08 aqyk=204) IMMATURE GRANULOCYTES-RELATIVE PERCENT (BEAKER) 0 % 0-1 (test eakn=4287) ANG, THROMBECTOMY, A-V [id number] 14:11:00If unable then place tunneled dialysis catheterReason for exam:->Clotted fistulaFINAL REPORT History: End-stage renal disease, thrombosed left [...] catheter for an Amplatz wire. A 7 Bulgarian sheath was placed at the access site. [...] achieved using a 2-0 chromic pursestring suture. Overall , the patient tolerated the procedure well without immediate complications and was discharged from the department in stable condition. FINDINGS: Ultrasound images of the left upper extremity fistula prior to percutaneous access demonstrates mostly occluded fistula with only a small residual patent component near the arterial anastomosis. A significant amount filling defect is seen within the fistula consistent with clot. Initial central venogram demonstratespatent central left subclavian, and brachiocephalic veins without [...] draining cephalic vein more distally near the arterialanastomosis. Following balloon dilatation of these lesions, there is significant angiographic improvement in appearance and flow across the lesions without significant residual stenosis identified. IMPRESSION: 1. Successful uncomplicated mechanical thrombolysis of the patient's left upper extremity AVfistula. Marginal stenoses were seen on each side of the patient's indwelling cephalic vein stents, one proximal the other distal as described above. These lesions were treated using eight and 10 mm balloons without significant residual or complications. Total fluoroscopy time: 13.9 minutes. Estimated total patient dose reported as (Ka,r): 45 mGy Signed: Mariah Calzada MDReport Verified Date/Time: 09/18/2017 14:11:58 Reading Location: [place] [id number] [facility] Body Reading Room Electronically signed by: MARIAH CALZADA M.D. on 2017 02:11 PMPOCT-GLUCOSE [id number] 13:43:00 Test Item Value Reference Range Comments POC-GLUCOSE METER (BEAKER) 76 mg/dL 70-110 TESTED AT [facility] [address] [facility] (test iqxc=3279) [facility] [address] HEMOGLOBIN [id number] 08:02:00 Test Item Value Reference Range Comments HEMOGLOBIN A1C (BEAKER) (test ymnl=511) 7.0 % 4.3-6.1 BASIC METABOLIC [id number] 07:34:00 Test Item Value Reference Range Comments SODIUM (BEAKER) (test 140 meq/L 136-145 vtkw=447) POTASSIUM (BEAKER) (test 5.0 meq/L 3.5-5.1 qinn=135) CHLORIDE (BEAKER) (test 101 meq/L 98-107 ibkj=265) CO2 (BEAKER) (test 22 meq/L 22-29 semu=027) BLOOD UREA NITROGEN 87 mg/dL 7-21 (BEAKER) (test wlys=730) CREATININE (BEAKER) (test 10.99 mg/dL 0.57-1.25 xcea=712) GLUCOSE RANDOM (BEAKER) 87 mg/dL 70-105 (test rtfr=646) CALCIUM (BEAKER) (test 7.8 mg/dL 8.4-10.2 xoam=307) EGFR (BEAKER) (test 5 mL/min/1.73 sq m ESTIMATED GFR IS NOT mbsn=8873) ACCURATE CREATININE CLEARANCE IN PREDICTING GLOMERULAR FILTRATION RATE. ESTIMATED GFR IS NOT APPLICABLE FOR DIALYSIS PATIENTS. [id number] 07:28:00 Test Item Value Reference Range Comments PHOSPHORUS (BEAKER) (test diej=926) 6.0 mg/dL 2.3-4.7 [id number] 07:28:00 Test Item Value Reference Range Comments MAGNESIUM (BEAKER) (test opsl=508) 2.3 mg/dL 1.6-2.6 CALCIUM, [id number] 07:18:00 Test Item Value Reference Range Comments CALCIUM IONIZED (BEAKER) (test wxcy=289) 1.00 mmol/L 1.12-1.27 PH, BLOOD (BEAKER) (test sgei=6058) 7.27 HEPATITIS B SURFACE [id number] 07:11:00 Test Item Value Reference Range Comments HEPATITIS B SURFACE ANTIGEN (2) (BEAKER) (test Nonreactive Nonreactive cdry=0497) Pls add to specimen drawn earlier.POCT-GLUCOSE [id number] 07:06:00 Test Item Value Reference Range Comments POC-GLUCOSE METER (BEAKER) 118 mg/dL 70-110 TESTED AT [facility] [address] [facility] (test lvoa=3121) [facility] [address] PROTHROMBIN [id number] 06:14:00 Test Item Value Reference Range Comments PROTIME (BEAKER) (test iogt=644) 14.2 seconds 11.7-14.7 INR (BEAKER) (test wamh=317) 1.1 <=5.9 RECOMMENDED COUMADIN/WARFARIN INR THERAPY RANGESSTANDARD DOSE: 2.0 - 3.0 Includes: PROPHYLAXIS forvenous thrombosis, systemic embolization; TREATMENT for venous thrombosis and/or pulmonary embolus.HIGH RISK: Target INR is 2.5-3.5 for patients with mechanical heart valves.CBC W/PLT COUNT & AUTO [id number] 06:04:00 Test Item Value Reference Range Comments WHITE BLOOD CELL COUNT (BEAKER) (test himx=005) 5.7 K/ L 3.5-10.5 RED BLOOD CELL COUNT (BEAKER) (test wkmd=484) 3.78 M/ L 4.63-6.08 HEMOGLOBIN (BEAKER) (test rqiv=464) 13.0 GM/DL 13.7-17.5 HEMATOCRIT (BEAKER) (test onzq=192) 39.4 % 40.1-51.0 MEAN CORPUSCULAR VOLUME (BEAKER) (test epry=357) 104.2 fL 79.0-92.2 MEAN CORPUSCULAR HEMOGLOBIN (BEAKER) (test 34.4 pg 25.7-32.2 tkde=286) MEAN CORPUSCULAR HEMOGLOBIN CONC (BEAKER) (test 33.0 GM/DL 32.3-36.5 cmoi=220) RED CELL DISTRIBUTION WIDTH (BEAKER) (test 14.1 % 11.6-14.4 pwdw=708) PLATELET COUNT (BEAKER) (test gmqo=033) 82 K/CU MM 150-450 MEAN PLATELET VOLUME (BEAKER) (test mznr=309) 13.3 fL 9.4-12.4 NUCLEATED RED BLOOD CELLS (BEAKER) (test 0 /100 WBC 0-0 cigd=231) NEUTROPHILS RELATIVE PERCENT (BEAKER) (test 62 % jycr=821) LYMPHOCYTES RELATIVE PERCENT (BEAKER) (test 23 % nwmk=780) MONOCYTES RELATIVE PERCENT (BEAKER) (test 11 % qziq=364) EOSINOPHILS RELATIVE PERCENT (BEAKER) (test 4 % mwgr=752) BASOPHILS RELATIVE PERCENT (BEAKER) (test 1 % vedz=790) NEUTROPHILS ABSOLUTE COUNT (BEAKER) (test 3.53 K/ L 1.78-5.38 jqod=383) LYMPHOCYTES ABSOLUTE COUNT (BEAKER) (test 1.30 K/ L 1.32-3.57 iaaw=233) MONOCYTES ABSOLUTE COUNT (BEAKER) (test zrbr=265) 0.62 K/ L 0.30-0.82 EOSINOPHILS ABSOLUTE COUNT (BEAKER) (test 0.22 K/ L 0.04-0.54 gbxx=561) BASOPHILS ABSOLUTE COUNT (BEAKER) (test txnx=308) 0.03 K/ L 0.01-0.08 IMMATURE GRANULOCYTES-RELATIVE PERCENT (BEAKER) 1 % 0-1 (test yhjj=2479) POCT-GLUCOSE [id number] 22:23:00 Test Item Value Reference Range Comments POC-GLUCOSE METER (BEAKER) 185 mg/dL 70-110 TESTED AT [address] (test hova=7959) [place] [id number] POCT-GLUCOSE [id number] 21:27:00 Test Item Value Reference Range Comments POC-GLUCOSE METER (BEAKER) 198 mg/dL 70-110 TESTED AT [address] (test kpdf=6067) [facility] [address] POCT-GLUCOSE [id number] 17:43:00 Test Item Value Reference Range Comments POC-GLUCOSE METER (BEAKER) 164 mg/dL 70-110 TESTED AT [address] (test mthp=9565) [place] [id number] HEPATITIS B SURFACE [id number] 15:14:00 Test Item Value Reference Range Comments HEPATITIS B SURFACE ANTIGEN (2) (BEAKER) (test Nonreactive Nonreactive ewnp=2363) Pls add to specimen drawn earlier.BASIC METABOLIC [id number] 13:34:00 Test Item Value Reference Range Comments SODIUM (BEAKER) (test 140 meq/L 136-145 bqzq=335) POTASSIUM (BEAKER) (test 5.4 meq/L 3.5-5.1 bedg=593) CHLORIDE (BEAKER) (test 101 meq/L 98-107 wwmg=642) CO2 (BEAKER) (test 19 meq/L 22-29 klbr=372) BLOOD UREA NITROGEN 123 mg/dL 7-21 (BEAKER) (test rknb=102) CREATININE (BEAKER) (test 12.96 mg/dL 0.57-1.25 mnkr=086) GLUCOSE RANDOM (BEAKER) 79 mg/dL 70-105 (test xzeu=165) CALCIUM (BEAKER) (test 7.9 mg/dL 8.4-10.2 lttx=342) EGFR (BEAKER) (test 4 mL/min/1.73 sq m ESTIMATED GFR IS NOT pery=8418) ACCURATE CREATININE CLEARANCE IN PREDICTING GLOMERULAR FILTRATION RATE. ESTIMATED GFR IS NOT APPLICABLE FOR DIALYSIS PATIENTS. [id number] 13:24:00 Test Item Value Reference Range Comments MAGNESIUM (BEAKER) (test fcfb=312) 2.3 mg/dL 1.6-2.6 [id number] 13:24:00 Test Item Value Reference Range Comments PHOSPHORUS (BEAKER) (test knhc=311) 6.2 mg/dL 2.3-4.7 POCT-GLUCOSE [id number] 12:20:00 Test Item Value Reference Range Comments POC-GLUCOSE METER (BEAKER) 84 mg/dL 70-110 TESTED AT [facility] [address] [facility] (test cyma=2042) [facility] [address] ANG, NON-TUNNELED CATH >5 Y.O. [id number] 11:23:00Reason for exam:-> please declot the AV fistula, if unable to do that he needs catheter exchangeFINAL REPORT Nontunneled dialysis catheter insertion, 09/16/2017. History: Left upper extremity AV fistula thrombosed. Modality: Fluoroscopy and sonography. Sedation: None. Supervisor Marble: Edgar Chandler MD. Tuna Purse Seiner: None. Approach: Right internal jugular vein Estimated [...] MDReport Verified Date/Time: 2017 11:23:57 Reading Location: [place] [address] [employer] Reading Room POCT- GLUCOSE [id number] 07:38:00 Test Item Value Reference Range Comments POC-GLUCOSE METER (BEAKER) 89 mg/dL 70-110 TESTED AT [facility] [address] [facility] (test skaz=2962) [facility] [address] PROTHROMBIN [id number] 05:19:00 Test Item Value Reference Range Comments PROTIME (BEAKER) (test jcvg=271) 14.8 seconds 11.7-14.7 INR (BEAKER) (test cutv=788) 1.2 <=5.9 RECOMMENDED COUMADIN/WARFARIN INR THERAPY RANGESSTANDARD DOSE: 2.0 - 3.0 Includes: PROPHYLAXIS forvenous thrombosis, systemic embolization; TREATMENT for venous thrombosis and/or pulmonary embolus.HIGH RISK: Target INR is 2.5-3.5 for patients with mechanical heart valves.POCT-GLUCOSE [id number] 23:26:00 Test Item Value Reference Range Comments POC-GLUCOSE METER (BEAKER) 261 mg/dL 70-110 TESTED AT [facility] [address] (test nbop=0336) [facility] [address]
--- OUTSIDE RECORDS SUMMARY | 2018-10-14 09:56 | XMS REPORT ---
[...] Z71.6 Active Problem Parkinsons G20 Active Medications Medication Code System Code Instructions Start Date End Date Status Dosage Pravachol [facility] [id number] 40 MG Orally Once Active 1 tablet a day Results No Known Results Summary Purpose eClinicalWorks Submission
[2018-10-14 09:58] LABS: Absolute Lymphocytes (CBC) 1.9 K/uL (0.7-4.9); Absolute Monocytes 0.9 K/uL (0.1-1.3); Absolute Neutrophil 6.7 K/uL (1.8-8.0); Basophils % 0.6 % (0-1.3); Eosinophils % 4.5 % (0-4.4); Hematocrit 33.3 % (39.6-49.0); Lymphocytes % 19.2 % (15.3-44.8); MPV 9.9 fL (7.6-11.3); Monocytes % 9.2 % (3.3-12.3); RBC Red Blood Cell Count 3.31 M/uL (4.33-5.43)
[2018-10-14 10:01] LABS: Protime INR 1.09
--- NOTE | 2018-10-14 10:29 | EDPHYS ---
Physician Documentation [facility] Name: Nadir Mendez Age: 73 yrs Sex: Male : 1945 Arrival Date: 10/14/2018 Time: 09:36 Bed 4 Private MD: ED Physician Deep Herzog HPI: 10/14 11:43 This 73 yrs old Male presents to ER via EMS with complaints of Altered Mental rn Status. 11:43 The patient presents with confusion, decreased responsiveness. Onset: The rn symptoms/episode began/occurred this morning. Possible causes: unknown. Current symptoms: In the emergency department the patient's symptoms have improved. It is unknown whether or not the patient has had similar symptoms in the past. REports recently admitted to [facility], had mid-foot amputation, reports discharged on Sunday, was doing fine, family found him cyanotic and trouble breathing this morning, called 911, O2 was 60%, improved with positioning and oxygen. . Historical: - Allergies: 10:09 No Known Allergies; iw - Home Meds: 10:15 amlodipine 2.5 mg tab 1 tab once daily [Active]; ascorbic acid (vitamin C) 500 mg tab iw twice a day [Active]; aspirin 81 mg Oral TbEC 1 tab once daily [Active]; carbidopa-levodopa 25-100 mg Oral tab twice a day [Active]; cilostazol 100 mg oral tab 1 tab 2 times per day [Active]; citalopram 10 mg tab 1 tab once daily [Active]; clopidogrel 75 mg oral tab 1 tab once daily [Active]; gabapentin 100 mg oral cap twice a day [Active]; insulin detemir subcutaneous 10 units subcutaneous nightly [Active]; metoprolol tartrate 25 mg Oral tab 1 tab 2 times per day [Active]; Nepro Carb Steady 0.08-1.80 gram-kcal/mL oral liqd twice a day [Active]; pantoprazole 40 mg oral TbEC 1 tab once daily [Active]; pravastatin 40 mg oral tab 1 tab once daily [Active]; pregabalin Oral daily [Active]; sertraline 50 mg oral tab 1 tab once daily [Active]; sevelamer carbonate 800 mg oral tab 1 tab 3 times per day [Active]; zinc sulfate 220 mg Oral tab daily [Active]; - PMHx: 10:08 Diabetes - NIDDM; Ulcers; Renal Disease; Tues, Thurs, Sat; Hyperlipidemia; iw Hypertension; Dialysis; - PSHx: 10:08 partial amputation right foot; iw - Immunization history:: Adult Immunizations unknown. - Social history:: Smoking status: unknown. - Ebola Screening: : Patient negative for fever greater than or equal to 101.5 degrees Fahrenheit, and additional compatible Ebola Virus Disease symptoms Patient denies exposure to infectious person Patient denies travel to an Ebola-affected area in the 21 days before illness onset No symptoms or risks identified at this time. - Family history:: not pertinent. - Hospitalizations: : Patient was recently seen at. 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 Eyes: Pupils equal round and reactive to light, extra-ocular motions intact. Lids and lashes normal. Conjunctiva and sclera are non-icteric and not injected. Cornea within normal limits. Periorbital areas with no swelling, redness, or edema. ENT: dry MM, no stridor, no oral lesions Neck: Trachea midline, no thyromegaly or masses palpated, and no cervical lymphadenopathy. Supple, full range of motion without nuchal rigidity, or vertebral point tenderness. No Meningismus. Cardiovascular: tachycardic, regular, no murmur Respiratory: + tachypnea with bilateral crackles, + moderate respiratory distress, speaking 2-3 word sentences Abdomen/GI: soft, non-tender MS/ Extremity: No cyanosis. + fresh right mid foot amputation with wound vac Neuro: Somnolent, responds to verbal stimuli, moves all 4 extremities. Vital Signs: 09:45 BP 171 / 91; Pulse 144; Resp 30; Temp 97.6(A); Pulse Ox 77% on R/A; iw 10:03 BP 152 / 71; Pulse 115; Resp 26; Pulse Ox 100% on BiPAP; iw 10:15 BP 160 / 82; Pulse 102; Resp 26 S; Pulse Ox 100% on BiPAP; iw 11:11 BP 133 / 70; Pulse 95; Resp 26 S; Pulse Ox 100% on BiPAP; iw 14:41 BP 167 / 90; Pulse 103; Resp 22 S; Pulse Ox 100% on BiPAP; iw MDM: 09:38 Patient medically screened. rn 11:47 Differential Diagnosis: hypoglycemia, pneumonia, sepsis, volume depletion. Data rn reviewed: vital signs, nurses notes, lab test result(s), EKG, radiologic studies, plain films, and as a result, I will admit patient. Counseling: I had a detailed discussion with the patient and/or guardian regarding: the historical points, exam findings, and any diagnostic results supporting the discharge/admit diagnosis, lab results, radiology results, the need for further work-up and treatment in the hospital. Response to treatment: the patient's symptoms have markedly improved after treatment, and as a result, I will admit patient. Admission orders: after a detailed discussion of the patient's condition and case, the admit orders are written by me. 10/14 09:40 Order name: Basic Metabolic Panel rn 10/14 09:40 Order name: Blood Culture Adult (2) rn 10/14 09:40 Order name: CBC with Diff; Complete Time: 10:23 rn 10/14 09:40 Order name: Lactate; Complete Time: 10:23 rn 10/14 09:40 Order name: Procalcitonin; Complete Time: 10:45 rn 10/14 09:40 Order name: Protime (+inr); Complete Time: 10:23 rn 10/14 09:40 Order name: Ptt, Activated; Complete Time: 10:23 rn 10/14 09:40 Order name: Troponin (emerg Dept Use Only) rn 10/14 09:40 Order name: Flu; Complete Time: 10:23 rn 10/14 09:40 Order name: PROBNP rn 10/14 10:23 Order name: Strep; Complete Time: 11:12 rn 10/14 11:16 Order name: Throat Culture EDLA 10/14 13:02 Order name: Lactate Sepsis 2 HR Follow-up EDLA 10/14 14:51 Order name: Glucose, Ancillary Testing EDLA 10/14 09:40 Order name: Chest Single View XRAY; Complete Time: 11:09 rn 10/14 09:40 Order name: Accucheck; Complete Time: 10:10 rn 10/14 09:40 Order name: Cardiac monitoring; Complete Time: 10:10 rn 10/14 09:40 Order name: EKG - Nurse/Tech; Complete Time: 10:10 rn 10/14 09:40 Order name: IV Saline Lock - Large Bore; Complete Time: 10:10 rn 10/14 09:40 Order name: Labs collected and sent; Complete Time: 10:10 rn 10/14 09:40 Order name: O2 Per Protocol; Complete Time: 10:10 rn 10/14 09:40 Order name: O2 Sat Monitoring; Complete Time: 10:10 rn 10/14 09:44 Order name: BIPAP rn 10/14 12:10 Order name: CONS Physician Consult EDMS Administered Medications: 10:50 Drug: Xopenex 1.25 mg Route: Inhalation; iw 11:20 Drug: Rocephin - (cefTRIAXone) 1 grams Route: IVPB; Infused Over: 30 mins; Site: right iw antecubital; 11:57 Drug: AZITHromycin 500 mg Route: IVPB; Infused Over: 1 hrs; Site: right antecubital; iw Point of Care Testing: Blood Glucose: 09:50 Blood Glucose: 176 mg/dL; iw Ranges: Critical Glucose Levels:Adult <50 mg/dl or >400 mg/dl <40 mg/dl or >180 mg/dl Disposition: 10/14/18 10:28 Hospitalization ordered by Ganesh Bauman for Inpatient Admission. Preliminary diagnosis are Dyspnea, unspecified, Hypoxemia. - Bed requested for Intensive Care Unit. - Status is Inpatient Admission. iw - Condition is Fair. - Problem is new. - Symptoms have improved. UTI on Admission? No Signatures: Dispatcher [employer] EDMS Ivelisse Jamison Irene, RN RN iw Deep Herzog MD MD rn training: (The following items were deleted from the chart) 11:10 10:28 Hospitalization Ordered by Aníbal Hsu DO for Inpatient Admission. Preliminary rn diagnosis is Dyspnea, unspecified; Hypoxemia. Bed requested for Intensive Care Unit. Status is Inpatient Admission. Condition is Fair. Problem is new. Symptoms have improved. UTI on Admission? No. rn 15:10 11:10 10/14/2018 10:28 Hospitalization Ordered by Ganesh Bauman MD for Inpatient bd Admission. Preliminary diagnosis is Dyspnea, unspecified; Hypoxemia. Bed requested for Intensive Care Unit. Status is Inpatient Admission. Condition is Fair. Problem is new. Symptoms have improved. UTI on Admission? No. rn 16:50 15:10 10/14/2018 10:28 Hospitalization Ordered by Ganesh Bauman MD for Inpatient iw Admission. Preliminary diagnosis is Dyspnea, unspecified; Hypoxemia. Bed requested for Intensive Care Unit. Status is Inpatient Admission. Condition is Fair. Problem is new. Symptoms have improved. UTI on Admission? No. bd
--- NOTE | 2018-10-14 10:29 | ER ---
Nurse's Notes [facility] Name: Nadir Mendez Age: 73 yrs Sex: Male : 1945 Arrival Date: 10/14/2018 Time: 09:36 Bed 4 Private MD: Diagnosis: Dyspnea, unspecified;Hypoxemia Presentation: 10/14 09:45 Presenting complaint: EMS states: family reports pt became suddenly SOB this morning, iw recent right foot amputation, pt was discharged from [facility] on 10-12-18, EMS reports pt was cyanotic, labored respirations on scene, was 61% on RA, came up to 100% on NRB, pt arrives to ER, drowsy, awakens to verbal stimuli, tachypneic at 30 breaths per minute, extreme SOB. Transition of care: patient was not received from another setting of care. Onset of symptoms was October 14, 2018. Risk Assessment: Do you want to hurt yourself or someone else? Patient reports no desire to harm self or others. Initial Sepsis Screen: Does the patient meet any 2 criteria? RR > 20 per min. HR > 90 bpm. Yes Does the patient have a suspected source of infection? No. Patient's initial sepsis screen is negative. Care prior to arrival: Oxygen administered. via a non-rebreather mask. 09:45 Method Of Arrival: EMS: [facility] iw 09:45 Acuity: ASTER 2 iw Triage Assessment: 10:00 General: Appears uncomfortable, Behavior is drowsy. iw Historical: - Allergies: 10:09 No Known Allergies; iw - Home Meds: 10:15 amlodipine 2.5 mg tab 1 tab once daily [Active]; ascorbic acid (vitamin C) 500 mg tab iw twice a day [Active]; aspirin 81 mg Oral TbEC 1 tab once daily [Active]; carbidopa-levodopa 25-100 mg Oral tab twice a day [Active]; cilostazol 100 mg oral tab 1 tab 2 times per day [Active]; citalopram 10 mg tab 1 tab once daily [Active]; clopidogrel 75 mg oral tab 1 tab once daily [Active]; gabapentin 100 mg oral cap twice a day [Active]; insulin detemir subcutaneous 10 units subcutaneous nightly [Active]; metoprolol tartrate 25 mg Oral tab 1 tab 2 times per day [Active]; Nepro Carb Steady 0.08-1.80 gram-kcal/mL oral liqd twice a day [Active]; pantoprazole 40 mg oral TbEC 1 tab once daily [Active]; pravastatin 40 mg oral tab 1 tab once daily [Active]; pregabalin Oral daily [Active]; sertraline 50 mg oral tab 1 tab once daily [Active]; sevelamer carbonate 800 mg oral tab 1 tab 3 times per day [Active]; zinc sulfate 220 mg Oral tab daily [Active]; - PMHx: 10:08 Diabetes - NIDDM; Ulcers; Renal Disease; Tues, Thurs, Sat; Hyperlipidemia; iw Hypertension; Dialysis; - PSHx: 10:08 partial amputation right foot; iw - Immunization history:: Adult Immunizations unknown. - Social history:: Smoking status: unknown. - Ebola Screening: : Patient negative for fever greater than or equal to 101.5 degrees Fahrenheit, and additional compatible Ebola Virus Disease symptoms Patient denies exposure to infectious person Patient denies travel to an Ebola-affected area in the 21 days before illness onset No symptoms or risks identified at this time. - Family history:: not pertinent. - Hospitalizations: : Patient was recently seen at. Screenin:09 Abuse screen: Denies threats or abuse. Denies injuries from another. Nutritional iw screening: No deficits noted. Tuberculosis screening: No symptoms or risk factors identified. Fall Risk IV access (20 points). Assessment: 09:46 General: Appears uncomfortable, ill, Behavior is drowsy. Pain: Unable to use pain iw scale. Patient appears confused. Neuro: Level of Consciousness is listless, Oriented to person. Respiratory: Respiratory effort is labored, gasping, Respiratory pattern is tachypnea. Derm: Skin temperature is cool. 09:54 Reassessment: Amara, Rt at bedside to set up BIPAP, pt 88% on NRB, tachypneic, iw diaphoretic. 10:04 Reassessment: SPO2 up to 100% on BiPAP, pt still remains drowsy but responds to verbal iw stimuli appropriately, family at bedside. 10:59 Reassessment: pt sleeping, remains on BIPAP, awakens to verbal stimuli, pt states he iw feels better, breathing appears more relaxed, pt following commands, family at bedside, 100% SpO2. 11:12 Reassessment: pt repositioned in bed, pt requesting something to drink ,states he feels iw something in his throat, pt removed from BiPAP, pt able to drink 2 oz of water, tolerated well, placed back on BIPAP, states his breathing has improved, family at bedside. 12:40 Reassessment: pt remains on BiPAP, AfM0=220%, pt still drowsy, opens eyes to verbal iw stimuli, pt taken off BiPAP mask to spit, coughed up bloody secretion, thick, clear sputum, O2 dropped to 90%, placed back on BiPAP, up to 100%. Vital Signs: 09:45 BP 171 / 91; Pulse 144; Resp 30; Temp 97.6(A); Pulse Ox 77% on R/A; iw 10:03 BP 152 / 71; Pulse 115; Resp 26; Pulse Ox 100% on BiPAP; iw 10:15 BP 160 / 82; Pulse 102; Resp 26 S; Pulse Ox 100% on BiPAP; iw 11:11 BP 133 / 70; Pulse 95; Resp 26 S; Pulse Ox 100% on BiPAP; iw 14:41 BP 167 / 90; Pulse 103; Resp 22 S; Pulse Ox 100% on BiPAP; iw ED Course: 09:36 Patient arrived in ED. hb 09:38 Deep Herzog MD is Attending Physician. rn 09:39 Loli Khan RN is Primary Nurse. iw 09:50 Inserted saline lock: 20 gauge in right antecubital area, using aseptic technique. iw Blood collected. 09:55 Initial lab(s) drawn, by me, sent to lab. First set of blood cultures drawn by ED staff.iw 10:00 Arm band placed on right wrist. iw 10:03 Triage completed. iw 10:28 X-ray completed. Portable x-ray completed in exam room. Patient tolerated procedure sw well. 10:28 Aníbal Hsu DO is Hospitalizing Provider. rn 10:29 Chest Single View XRAY In Process Unspecified. EDMS 11:10 Ganesh aBuman MD is Hospitalizing Provider. rn 16:40 Patient has correct armband on for positive identification. iw 16:45 No provider procedures requiring assistance completed. Patient admitted, IV remains in iw place. Administered Medications: 10:50 Drug: Xopenex 1.25 mg Route: Inhalation; iw 11:20 Drug: Rocephin - (cefTRIAXone) 1 grams Route: IVPB; Infused Over: 30 mins; Site: right iw antecubital; 11:57 Drug: AZITHromycin 500 mg Route: IVPB; Infused Over: 1 hrs; Site: right antecubital; Point of Care Testing: Blood Glucose: 09:50 Blood Glucose: 176 mg/dL; Ranges: Outcome: 10:28 Decision to Hospitalize by Provider. rn 16:45 Admitted to ICU accompanied by nurse, accompanied by tech, Report called to cory Carrillo RN 16:45 Condition: improved 16:45 Instructed on the need for admit. 16:50 Patient left the ED. Signatures: Dispatcher [employer] Loli Gutierrez RN RN iw Deep Herzog MD MD rn Warren, Shannon sw Baxter, Heather, RN RN hb
--- NOTE | 2018-10-14 10:36 | RAD REPORT ---
EXAM DESCRIPTION: Anay Single View10/14/2018 10:28 am CLINICAL HISTORY: Shortness of breath COMPARISON: August 2018 FINDINGS: Extensive bilateral pulmonary alveolar opacities are present. The heart is normal size IMPRESSION: Extensive bilateral pulmonary opacities may represent pulmonary edema or pneumonia
[2018-10-14] MEDS ORDERED: LEVALBUTEROL 1.25 MG/3 ML NEB ONE (10:51)
[2018-10-14 11:26] LABS: Potassium 4.4 mmol/L (3.5-5.1); Troponin (Emerg Dept Use Only) 0.04 ng/mL (0.0-0.045)
[2018-10-14] MEDS ORDERED: AZITHROMYCIN 500 MG/250 ML BAG ONE (11:44)
[2018-10-14] MEDS ORDERED: CEFTRIAXONE/SWI 1gm 1 GM/10 ML SYR ONE (11:44)
--- NOTE | 2018-10-14 12:58 | EKG ---
Test Date: 2018-10-14 Test Time: 09:50:20 Casting Sorter: MERLE MEASUREMENT RESULTS: Intervals: Rate: 138 DE: 128 QRSD: 98 QT: 322 QTc: 487 [place]: P: -14 DE: 128 QRS: 110 T: 35 INTERPRETIVE STATEMENTS: Sinus tachycardia with occasional premature ventricular complexes Right axis deviation Low voltage QRS Abnormal ECG Compared to ECG 08/20/2018 07:29:46 Right-axis deviation now present Low QRS voltage now present Sinus rhythm no longer present Electronically Signed On 10-14-18 12:57:48 [employer]PERVISOR [employer] by Surya Palomino
[2018-10-14] MEDS ORDERED: ONDANSETRON 4 MG/2 ML VIAL IV PRN (16:40)
[2018-10-14] MEDS ORDERED: ALBUTEROL 2.5 MG/3 ML NEB SOL NEB PRN (16:40)
[2018-10-14] MEDS ORDERED: ACETAMINOPHEN 500 MG TAB PO PRN (16:40)
[2018-10-14] MEDS ORDERED: IPRATROPIUM BROM 0.5MG/2.5ML NEB PRN (16:40)
[2018-10-14 17:18] VITALS: BMI 31.3
--- NOTE | 2018-10-14 17:31 | P.HP ---
Certification for Inpatient Patient admitted to: Inpatient With expected LOS: >2 Midnights Patient will require the following post-hospital care: None Practitioner: I am a practitioner with admitting privileges, knowledge of patient current condition, hospital course, and medical plan of care. 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 Had a history of PVD and ESRD. The patient was sent to [place] last month. Had been planning for revascularization. Unfortunately that plan failed ant the patient ended up having a right midfoot amputation. He was in a rehab center for the rest of the month. Was disharged less than a week ago. The patient was complainting of fever and chills yesterday. Per the daughter he was very lethargic. Brought to er where he was found to be hypoxic. He was started on a bipap. Unfortuanately he is not able to give a history. Most of this was from the patients daughters. Allergies No Known Drug Allergies Allergy (Verified 07/24/18 10:49) Unknown Home Medications: Gabapentin [Neurontin*] 100 mg PO BID 12/31/12 Pravastatin [Pravachol*] 40 mg PO BEDTIME 12/31/12 Citalopram [Celexa*] 10 mg PO BEDTIME 04/15/16 Carbidopa/Levodopa [Carbidopa-Levo 25-100 mg Odt] 1 tab PO BID 09/12/16 Iron/FA/Vit B-Com W/C [Hemocyte Plus*] 1 cap PO DAILY 03/30/18 Pregabalin [Lyrica] 75 mg PO DAILY 05/25/18 B Complex W-C No.20/Folic Acid [Virt-Caps Softgel] 1 cap PO DAILY 08/03/18 Cephalexin [Keflex] 500 mg PO Q12HR 08/03/18 Codeine/APAP [Tylenol W/Codeine #3 tab] 1 tab PO Q4HP PRN 08/03/18 Ergocalciferol (Vitamin D2) [Vitamin D2] 50,000 unit PO SEECOM 08/03/18 Midodrine HCl [Proamatine] 5 mg PO SEECOM 08/03/18 Sertraline HCl 50 mg PO DAILY 90 Days #90 tablet 08/07/18 Cilostazol 100 mg PO DAILY 08/20/18 Clopidogrel Bisulfate [Plavix] 75 mg PO BEDTIME 08/20/18 Insulin Glargine,Hum.rec.anlog [Lantus] 65 units SQ BEDTIME 08/20/18 - Past Medical/Surgical History Diabetic: Yes -: Hypertension -: Neuropathy -: Hyperlipidemia -: ESRD -: DM -: DDD/DJD of the spine -: Anemia of chronic disease -: Hepatitis C -: History of pancreatitis -: Dialysis stent -: LLE Stent -: Right foot sx r/t fx -: vein procedure on r femoral Psychosocial/ Personal History: has recently. - Social History Alcohol use: No CD- Drugs: No Caffeine use: Yes Review of Systems is unable to be obtained Physical Examination - Physical Exam General: Unresponsive HEENT: Atraumatic, PERRLA, Mucous membr. moist/pink, EOMI, Sclerae nonicteric Neck: Supple, 2+ carotid pulse no bruit, No LAD, Without JVD or thyroid abnormality Respiratory: Clear to auscultation bilaterally, Normal air movement Cardiovascular: Regular rate/rhythm, Normal S1 S2 Gastrointestinal: Normal bowel sounds, No tenderness Musculoskeletal: No tenderness Integumentary: No rashes Neurological: Normal gait, Normal speech, Normal strength at 5/5 x4 extr, Normal tone, Normal affect Lymphatics: No axilla or inguinal lymphadenopathy - Studies Laboratory Data (last 24 hrs) 10/14/18 09:44: PT 12.9 H, INR 1.09, APTT 32.5 10/14/18 09:44: WBC 10.1, Hgb 11.1 L, Hct 33.3 L, Plt Count 237 10/14/18 09:40: Sodium 138, Potassium 4.4, BUN 50 H, Creatinine 4.94 H, Glucose 154 H Microbiology Data (last 24 hrs): 10/14/18 10:45 Throat Group A Streptococcus Rapid Screen - Final 10/14/18 09:44 Nasopharnyx Influenza Type A Antigen Screen - Final 10/14/18 09:44 Nasopharnyx Influenza Type B Antigen Screen - Final Assessment and Plan - Problems (Diagnosis) (1) Hospital-acquired pneumonia Current Visit: Yes Status: Acute Plan: will start the patient on cefepime. Continue bipap. Will see if we can wean him off. Will check lower extremity duplex in the am. To see if possible pe (2) ESRD (end stage renal disease) Onset Date: 08/05/18 Current Visit: No Status: Chronic Plan: consult to Dr. Hawkins for dialysis care (3) Peripheral vascular disease due to secondary diabetes Onset Date: 05/27/18 Current Visit: No Status: Chronic Plan: SP right forefoot amputation. Continue wound vac. Will consult wound care in the morning (4) Diabetes mellitus Onset Date: 09/13/16 Current Visit: No Status: Chronic Plan: Hold meds till the morning will keep a low dose ISS Discharge Plan: Home Plan to discharge in: Greater than 2 days - Advance Directives Does patient have a Living Will: No Does patient have a Durable POA for Healthcare: Yes - Code Status/Comfort Care Code Status Assessed: No Physician Review: Patient Assessed, Agree with Above Assessment and Plan Critical Care: Yes Time Spent Managing Pts Care (In Minutes): 45
[2018-10-14] MEDS ORDERED: CEFEPIME/SWI 1gm 1 GM/10 ML SYR IVP SCH (18:00)
[2018-10-14] MEDS: ENOXAPARIN 30 MG/0.3 ML SQ SCH (18:05)
[2018-10-15] MEDS: CEFEPIME/SWI 1gm 1 GM/10 ML SYR IVP SCH ×3 (01:00→22:25)
--- NOTE | 2018-10-15 03:38 | CON ---
Date of Consultation: 10/14/2018 Chief Complaint: End-stage renal disease, on dialysis. History Of Present Illness: The patient presented to the hospital because of generalized weakness and shortness of breath. He was found to have altered mental status, decreased responsiveness, confusion, and symptoms began this morning. He was brought to emergency room and his condition somewhat improved, although he required BiPAP for hypoxemia. He was found to have severe hypoxemia of O2 saturation was 60% and improved with BiPAP and oxygen treatment. He has multiple medical problems including end-stage renal disease, on dialysis. He has been dialyzed 3 times per week on Sunday, , and Sunday. He had last dialysis done on Sunday. He has peripheral vascular disease, coronary artery disease. Recently, he was admitted to hospital in [place] and had midfoot amputation done. He was discharged to home on Sunday. Today, family found him confused with decreased responsiveness, lethargic, cyanotic, with labored breathing and difficulty breathing, 911 was called, and he was found to have hypoxemia. Oxygenation was provided, and SpO2 improved, although the patient required BiPAP in the emergency room. The patient has history of hypertension, hyperlipidemia, end-stage renal disease , coronary artery disease, peripheral vascular disease, and diabetes. Review of Systems: Unobtainable. The patient has a BiPAP mask, cannot provide review of systems. General: He is somewhat arousable, and he denies pain, fever, chills. Abdomen: Denies abdominal pain, nausea, vomiting. : Denies dysuria or hematuria. Musculoskeletal: Denies muscle aches. no joint tenderness. all other systems reviewed and all are negative Past Medical History: Hypertension, peripheral neuropathy, hyperlipidemia, end- stage renal disease, diabetes mellitus, degenerative disk disease, anemia of chronic kidney disease, hepatitis C, history of pancreatitis, peripheral vascular disease, osteomyelitis, right foot surgery, status post dialysis access procedure. Social History: Denies tobacco, alcohol, or illicit drugs. Family History: Hypertension. Physical Examination: General: The patient is awake, alert, follows commands. Eyes: Anicteric sclerae and no hemorrhagic changes. Ears, Nose, Mouth, and Throat: Oral mucosa moist, no pallor. Neck: Supple. No bruits. Lungs: Crackles bilaterally, no wheezing, no rhonchi. Heart: S1, S2. No pericardial friction rub. Abdomen: Soft, benign, no rebound, no guarding. Extremities: Edema present in both legs. Neurological: Moving extremities. Cranial nerves intact. Psychiatric: Alert and oriented x3. Normal affect. Laboratory Data: INR 1.09, APTT 32.5, PT 12.9. WBC 10.1, hemoglobin 11.1, hematocrit 33.3, platelet count is 237,000. Sodium 138, potassium 4.4, BUN 50, creatinine 4.94, glucose 154. Troponin 0.68 and 0.89. Procalcitonin 0.36. Chest x-ray showed extensive bilateral pulmonary opacities representing pulmonary edema or pneumonia. Impression And Plan: 1. Respiratory failure, has severe hypoxemia, continue BiPAP. The patient was found to have pulmonary edema. The patient is to have workup to rule out acute coronary syndrome. The patient will have dialysis, and emergent procedure will be done to control volemia. Obtain negative fluid balance to control congestive heart failure with decompensated heart failure. The patient has diastolic dysfunction. Cardiology consultation is obtained for further workup and possible procedures with cardiac catheterization. 2. Hypertension, continue blood pressure medication. 3. Peripheral vascular disease, per primary team. 4. Anemia in chronic kidney disease. Continue BEAU monitor. Hemoglobin 11. 5. Renal osteodystrophy, continue renal diet. The patient will need a speech therapy evaluation to rule out dysphagia. 6. Possible pneumonia, continue antibiotics. The patient will require broad-spectrum antibiotic. Adjust antibiotic dose according to renal function. JOSE Voice ID: [id number] Report ID: [id number]
[2018-10-15 05:52] LABS: Absolute Lymphocytes (CBC) 0.5 K/uL (0.7-4.9); Absolute Monocytes 0.4 K/uL (0.1-1.3); Absolute Neutrophil 6.2 K/uL (1.8-8.0); Basophils % 0.3 % (0-1.3); Eosinophils % 1.1 % (0-4.4); Hematocrit 47.8 % (39.6-49.0); Lymphocytes % 7.4 % (15.3-44.8); MPV 10.1 fL (7.6-11.3); Monocytes % 4.9 % (3.3-12.3); RBC Red Blood Cell Count 4.77 M/uL (4.33-5.43)
[2018-10-15 05:54] LABS: Potassium 3.9 mmol/L (3.5-5.1)
[2018-10-15] MEDS ORDERED: CEFEPIME 1 GM/VIAL IV SCH (09:00)
[2018-10-15] MEDS: ASPIRIN EC 81 MG TAB PO SCH (09:12)
[2018-10-15] MEDS: SERTRALINE HCL 50 MG TAB PO SCH (09:12)
[2018-10-15] MEDS: ASCORBIC ACID 500 MG TABLET PO SCH ×2 (09:12→21:00)
[2018-10-15] MEDS: GABAPENTIN 100 MG CAP PO SCH ×2 (09:12→22:25)
[2018-10-15] MEDS: PREGABALIN 75 MG CAP PO SCH (09:12)
[2018-10-15] MEDS: CILOSTAZOL 100 MG TAB PO SCH ×2 (09:29→22:26)
[2018-10-15] MEDS: AMLODIPINE 2.5 MG TAB PO SCH (09:29)
[2018-10-15] MEDS: ZINC SULFATE 220 MG CAP PO SCH (09:29)
[2018-10-15] MEDS: MULTIVITAMINS,THERAPEUT 1 TAB PO SCH (09:30)
--- NOTE | 2018-10-15 09:33 | P.PN ---
Subjective Date of Service: 10/15/18 Primary Care Provider: Merna Chief Complaint: hospital aquired pneumonia Subjective: Improving (Had dialysis last night. Reported 2 lts of fluids removed. Much more alert this morning) Review of Systems 10-point ROS is otherwise unremarkable (having breakfast) Physical Examination - Vital Signs Temperature: 98.4 F Blood Pressure: 161/92 Pulse: 92 Respirations: 14 Pulse Ox (%): 99 - Physical Exam General: Alert, In no apparent distress HEENT: Atraumatic, PERRLA, EOMI Neck: Supple, JVD not distended Respiratory: Clear to auscultation bilaterally, Normal air movement Cardiovascular: Regular rate/rhythm, Normal S1 S2 Gastrointestinal: Normal bowel sounds, No tenderness Musculoskeletal: No tenderness Integumentary: No rashes Neurological: Normal speech, Normal tone, Normal affect Lymphatics: No axilla or inguinal lymphadenopathy - Studies Laboratory Data (last 24 hrs) 10/14/18 09:44: PT 12.9 H, INR 1.09, APTT 32.5 10/14/18 09:44: WBC 10.1, Hgb 11.1 L, Hct 33.3 L, Plt Count 237 10/14/18 09:40: Sodium 138, Potassium 4.4, BUN 50 H, Creatinine 4.94 H, Glucose 154 H Microbiology Data (last 24 hrs): 10/14/18 10:45 Throat Group A Streptococcus Rapid Screen - Final 10/14/18 09:44 Nasopharnyx Influenza Type A Antigen Screen - Final 10/14/18 09:44 Nasopharnyx Influenza Type B Antigen Screen - Final Assessment & Plan - Problems (Diagnosis) (1) Hospital-acquired pneumonia Current Visit: Yes Status: Acute Plan: will start the patient on cefepime. Continue bipap. Will see if we can wean him off. Will check lower extremity duplex in the am. To see if possible pe (2) ESRD (end stage renal disease) Onset Date: 08/05/18 Current Visit: No Status: Chronic Plan: consult to Dr. Hawkins for dialysis care. He is much more alert after dialysis. Off the bipap (3) Peripheral vascular disease due to secondary diabetes Onset Date: 05/27/18 Current Visit: No Status: Chronic Plan: SP right forefoot amputation. Continue wound vac. Will consult wound care in the morning (4) Diabetes mellitus Onset Date: 09/13/16 Current Visit: No Status: Chronic Plan: Hold meds till the morning will keep a low dose ISS Discharge Plan: Home Plan to discharge in: 24 Hours - Code Status/Comfort Care Code Status Assessed: No Code Status: Full Code Physician Review: Patient Assessed, Agree with Above Assessment and Plan Critical Care: No Time Spent Managing Pts Care (In Minutes): 25
--- NOTE | 2018-10-15 10:57 | RAD REPORT ---
EXAM DESCRIPTION: RAD - Chest Single View - 10/15/2018 10:42 am CLINICAL HISTORY: COPD Chest pain. COMPARISON: Chest Single View dated 10/14/2018; Chest Single View dated 08/20/2018; Abdomen 1 View ([facility]) dated 08/17/2018; Chest Single View dated 08/03/2018 FINDINGS: Portable technique limits examination quality. Since 10/14/2018, there has been mild improvement in bilateral pulmonary opacities seen. Pleural effu tana on the right also appears mildly improved. The heart is upper limit normal size. Extensive left- sided vascular stenting. IMPRESSION: Mild improvement in lung aeration since comparative study.
[2018-10-15] MEDS: SEVELAMER CARBONATE 800 MG TABLET PO SCH ×2 (12:51→16:03)
--- NOTE | 2018-10-15 13:44 | PN ---
Date of Progress Note: 10/15/2018 NEPHROLOGY FOLLOWUP Subjective: The patient was admitted with overload. The patient had dialysis yesterday, we managed to remove 2.5 L. The patient still has some shortness of breath. Physical Examination: Vital Signs: When I saw the patient, blood pressure 146/70, pulse of 88. Chest: Crackles bilateral. Heart: S1 and S2, regular. Abdomen: Soft, nontender. Extremities: No edema. Neurological: Alert and oriented x3. No focal. Current Medications: The patient on include cefepime, aspirin, Plavix, Lovenox, amlodipine, gabapent in, Zoloft, Renvela, zinc sulfate, breathing treatment, pantoprazole, and vitamin C. Laboratory Data: H and H of 15.7 and 47.8. Sodium 139, potassium 3.9, bicarb 27, BUN 36, creatinine 3.9, and calcium 8.4. Assessment And Plan: 1.End-stage renal disease, over-volume with respiratory symptoms, status post dialysis yesterday. I am going to do another session of dialysis sequential today to establish better volume control and w e will follow up the patient. 2.Hypertension, controlled, optimal. We will utilize the blood pressure for more ultrafiltration. 3.Anemia of chronic kidney disease, no need for BEAU. 4.Congestive heart failure. We will dialyze the patient again today. HARISH Voice ID: [id number] Report ID: [id number]
--- NOTE | 2018-10-15 15:01 | RAD REPORT ---
EXAM DESCRIPTION: USExtrem Venous W Compress Bil10/15/2018 2:39 pm CLINICAL HISTORY: Bilateral leg swelling COMPARISON: January 2018 FINDINGS: The common femoral, superficial femoral, popliteal and posterior tibial veins bilaterally are compressible and demonstrate augmentation. Doppler demonstrates good flow. IMPRESSION: No evidence of deep venous thrombosis involving either lower extremity.
[2018-10-15] MEDS: ENOXAPARIN 30 MG/0.3 ML SQ SCH (16:03)
[2018-10-15] MEDS: CLOPIDOGREL 75 MG TABLET PO SCH (22:25)
[2018-10-15] MEDS: CITALOPRAM 10 MG TABLET PO SCH (22:25)
[2018-10-15] MEDS: INSULIN GLARGINE 100 UNITS/ML SQ SCH (22:25)
--- NOTE | 2018-10-16 09:10 | P.DS ---
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 Had a history of PVD and ESRD. The patient was sent to [place] last month. Had been planning for revascularization. Unfortunately that plan failed ant the patient ended up having a right midfoot amputation. He was in a rehab center for the rest of the month. Was disharged less than a week ago. The patient was complainting of fever and chills yesterday. Per the daughter he was very lethargic. Brought to er where he was found to be hypoxic. He was started on a bipap. Unfortuanately he is not able to give a history. Most of this was from the patients daughters. Hospital Course: Patient was admitted to the ICU. He improved after dialysis and 2 lts were removed. He is currently doing much better. Blood cultures are negative. Will discharge the patient on oral antibiotics. Will have wound care see him and evaluate. he can follow up with his dialysis and in the wound care center with me. Thank you for allowing me to be a part of his care. Vital Signs/Physical Exam: Temp Pulse Resp BP Pulse Ox 98.4 F 80 19 119/54 L 93 10/15/18 20:00 10/15/18 20:00 10/15/18 20:00 10/15/18 20:00 10/15/18 15:00 General: Alert, In no apparent distress HEENT: Atraumatic, PERRLA, EOMI Neck: Supple, JVD not distended Respiratory: Clear to auscultation bilaterally, Normal air movement Cardiovascular: Regular rate/rhythm, Normal S1 S2 Gastrointestinal: Normal bowel sounds, No tenderness Musculoskeletal: No tenderness Integumentary: No rashes Neurological: Normal speech, Normal tone, Normal affect Lymphatics: No axilla or inguinal lymphadenopathy Laboratory Data at Discharge: WBC 7.1 K/uL (4.3-10.9) D 10/15/18 05:23 Hgb 15.7 g/dL (13.6-17.9) D 10/15/18 05:23 Hct 47.8 % (39.6-49.0) D 10/15/18 05:23 Plt Count 105 K/uL (152-406) L D 10/15/18 05:23 PT 12.9 SECONDS (9.5-12.5) H 10/14/18 09:44 INR 1.09 10/14/18 09:44 APTT 32.5 SECONDS (24.3-36.9) 10/14/18 09:44 Sodium 139 mmol/L (136-145) 10/15/18 05:23 Potassium 3.9 mmol/L (3.5-5.1) 10/15/18 05:23 BUN 36 mg/dL (7-18) H 10/15/18 05:23 Creatinine 3.98 mg/dL (0.55-1.3) H 10/15/18 05:23 Glucose 130 mg/dL (74-106) H 10/15/18 05:23 Troponin I 0.89 ng/mL (0.0-0.045) H* 10/14/18 20:40 Home Medications: Gabapentin [Neurontin*] 100 mg PO BID 12/31/12 Pravastatin [Pravachol*] 40 mg PO BEDTIME 12/31/12 Citalopram [Celexa*] 10 mg PO BEDTIME 04/15/16 Carbidopa/Levodopa [Carbidopa-Levo 25-100 mg Odt] 1 tab PO BID 09/12/16 Pregabalin [Lyrica] 75 mg PO DAILY 05/25/18 Sertraline HCl 50 mg PO DAILY 90 Days #90 tablet 08/07/18 Cilostazol 100 mg PO BID 08/20/18 Clopidogrel Bisulfate [Plavix] 75 mg PO BEDTIME 08/20/18 Amlodipine [Norvasc] 2.5 mg PO DAILY 10/14/18 Ascorbic Acid [Vitamin C] 500 mg PO BID 10/14/18 Aspirin [Adult Low Dose Aspirin EC] 81 mg PO DAILY 10/14/18 Folic Acid/Vit Bcomp,C [Renal Vitamin Tablet] 0.8 mg PO DAILY 10/14/18 Heparin [Heparin 5,000 units/mL] 5,000 unit SQ Q8H 10/14/18 Insulin Detemir [Levemir] 10 units SQ BEDTIME 10/14/18 Metoprolol Tartrate [Lopressor] 25 mg PO BID 10/14/18 Nepro Shake [Nepro*] 237 ml PO BID 10/14/18 Pantoprazole [Protonix Tab] 40 mg PO BREAKFAST 10/14/18 Sevelamer Carbonate 800 mg PO TID 10/14/18 Zinc Sulfate [Zinc Sulfate*] 220 mg PO DAILY 10/14/18 levoFLOXacin [Levaquin] 500 mg PO DAILY 7 Days #7 tab 10/16/18 New Medications: levoFLOXacin [Levaquin] 500 mg PO DAILY 7 Days #7 tab Diet: Renal Activity: Ad reji Followup: Annelise Estevez MD [ACTIVE - CAN ADMIT] - 1-2 Days Ganesh Bauman MD [Primary Care Provider] - 1-2 Weeks (can follow up in the wound care center) Physician Review: Patient Assessed, Agree with Above Assessment and Plan Time spent managing pt's care (in minutes): 30
[2018-10-16] MEDS: SEVELAMER CARBONATE 800 MG TABLET PO SCH ×3 (09:59→17:13)
[2018-10-16] MEDS: AMLODIPINE 2.5 MG TAB PO SCH (09:59)
[2018-10-16] MEDS: ASPIRIN EC 81 MG TAB PO SCH (09:59)
[2018-10-16] MEDS: PREGABALIN 75 MG CAP PO SCH (09:59)
[2018-10-16] MEDS: CILOSTAZOL 100 MG TAB PO SCH ×2 (10:00→23:26)
[2018-10-16] MEDS: ASCORBIC ACID 500 MG TABLET PO SCH ×2 (10:00→23:26)
[2018-10-16] MEDS: PANTOPRAZOLE 40MG TABLET PO SCH (10:00)
[2018-10-16] MEDS: ZINC SULFATE 220 MG CAP PO SCH (10:00)
[2018-10-16] MEDS: MULTIVITAMINS,THERAPEUT 1 TAB PO SCH (10:00)
[2018-10-16] MEDS: GABAPENTIN 100 MG CAP PO SCH ×2 (10:00→23:26)
[2018-10-16] MEDS: SERTRALINE HCL 50 MG TAB PO SCH (10:00)
[2018-10-16] MEDS: ENOXAPARIN 30 MG/0.3 ML SQ SCH (17:12)
--- NOTE | 2018-10-16 17:41 | PN ---
Date of Progress Note: 10/16/2018 NEPHROLOGY FOLLOWUP Subjective: The patient was admitted with over volume, status post dialysis yesterday and day before . The patient feeling better. Physical Examination: Vital Signs: Blood pressure 168/79, pulse of 84. Chest: Faint crackles bilateral base. Heart: S1, S2 systolic murmur. Abdomen: Soft, nontender. Extremities: No edema. Laboratory Data: H and H 15.7/47.8. Sodium 139, potassium 3.9, bicarb 27, BUN 36, creatinine 3.9, c alcium 8.5. Medications: Current medications the patient on include Plavix, cilostazol, Lovenox, cefepime, aspir in, Norvasc 2.5, Tylenol, gabapentin, Zoloft, Lyrica, Renvela, ipratropium, pantoprazole. Assessment And Plan: 1.End-stage renal disease, over volume. We will arrange for another dialysis today and we will cont inue to monitor the patient. The patient will be cleared from the renal standpoint for discharge nicole nning after dialysis. 2.Congestive heart failure with exacerbation. We will follow up with the primary. The patient curr ently feeling better. 3.Hypertension, controlled optimal. Continue current medication. 4.Anemia of chronic kidney disease. No need for BEAU. 5.Secondary hyperparathyroidism. Continue binder. HARISH Voice ID: [id number] Report ID: [id number]
[2018-10-16] MEDS: INSULIN GLARGINE 100 UNITS/ML SQ SCH (23:25)
[2018-10-16] MEDS: CLOPIDOGREL 75 MG TABLET PO SCH (23:26)
[2018-10-16] MEDS: CITALOPRAM 10 MG TABLET PO SCH (23:27)
[2018-10-16] MEDS: CEFEPIME/SWI 1gm 1 GM/10 ML SYR IVP SCH (23:30)
[2018-10-17] MEDS: PANTOPRAZOLE 40MG TABLET PO SCH (08:07)
[2018-10-17] MEDS: ZINC SULFATE 220 MG CAP PO SCH (08:07)
[2018-10-17] MEDS: AMLODIPINE 2.5 MG TAB PO SCH (08:08)
[2018-10-17] MEDS: MULTIVITAMINS,THERAPEUT 1 TAB PO SCH (08:08)
[2018-10-17] MEDS: PREGABALIN 75 MG CAP PO SCH (08:08)
[2018-10-17] MEDS: CILOSTAZOL 100 MG TAB PO SCH ×2 (08:08→21:05)
[2018-10-17] MEDS: ASCORBIC ACID 500 MG TABLET PO SCH ×2 (08:08→21:05)
[2018-10-17] MEDS: ASPIRIN EC 81 MG TAB PO SCH (08:08)
[2018-10-17] MEDS: SERTRALINE HCL 50 MG TAB PO SCH (08:08)
[2018-10-17] MEDS: SEVELAMER CARBONATE 800 MG TABLET PO SCH ×3 (08:08→18:10)
[2018-10-17] MEDS: GABAPENTIN 100 MG CAP PO SCH ×2 (08:08→21:04)
--- NOTE | 2018-10-17 09:03 | P.PN ---
Subjective Date of Service: 10/17/18 Primary Care Provider: Merna Chief Complaint: hospital aquired pneumonia Subjective: No new changes Review of Systems 10-point ROS is otherwise unremarkable Physical Examination - Vital Signs Temperature: 98.3 F Blood Pressure: 138/65 Pulse: 88 Respirations: 16 Pulse Ox (%): 92 - Physical Exam General: Alert, In no apparent distress HEENT: Atraumatic, PERRLA, EOMI Neck: Supple, JVD not distended Respiratory: Clear to auscultation bilaterally, Normal air movement Cardiovascular: Regular rate/rhythm, Normal S1 S2 Gastrointestinal: Normal bowel sounds, No tenderness Musculoskeletal: No tenderness Integumentary: No rashes Neurological: Normal speech, Normal tone, Normal affect Lymphatics: No axilla or inguinal lymphadenopathy - Studies Microbiology Data (last 24 hrs): 10/14/18 10:45 Throat Culture & Sensitivity - Final Assessment & Plan - Problems (Diagnosis) (1) Hospital-acquired pneumonia Onset Date: 10/15/18 Current Visit: Yes Status: Acute Plan: will start the patient on cefepime. Continue bipap. Will see if we can wean him off. Will check lower extremity duplex in the am. To see if possible pe (2) ESRD (end stage renal disease) Onset Date: 08/05/18 Current Visit: No Status: Chronic Plan: consult to Dr. Hawkins for dialysis care. He is much more alert after dialysis. Off the bipap (3) Peripheral vascular disease due to secondary diabetes Onset Date: 05/27/18 Current Visit: No Status: Chronic Plan: SP right forefoot amputation. Continue wound vac. Will consult wound care in the morning (4) Diabetes mellitus Onset Date: 09/13/16 Current Visit: No Status: Chronic Plan: Hold meds till the morning will keep a low dose ISS (5) Discharge planning issues Current Visit: Yes Status: Acute Plan: Patient was kept for dalysis. His family requested halfway placement. No mention of this before hand. Patient this morning states whatever his son wants. Will consult tradeshow worker and PT. Discharge Plan: Jail Plan to discharge in: 48 Hours - Code Status/Comfort Care Code Status Assessed: No Code Status: Full Code Physician Review: Patient Assessed, Agree with Above Assessment and Plan Critical Care: No Time Spent Managing Pts Care (In Minutes): 25
--- NOTE | 2018-10-17 11:26 | P.PN ---
Subjective Date of Service: 10/17/18 Primary Care Provider: Merna Chief Complaint: hospital aquired pneumonia Subjective: No new changes Pt admitted for SOB and fluid overload improved on HD discharge plain as per primary team Dialysis today , to resume pt regular schedule Physical Examination - Vital Signs Temperature: 98.3 F Blood Pressure: 138/65 Pulse: 88 Respirations: 16 Pulse Ox (%): 92 - Physical Exam General: Alert, In no apparent distress Neck: Supple, Without JVD or thyroid abnormality Respiratory: Clear to auscultation bilaterally Cardiovascular: No edema, Regular rate/rhythm, Normal S1 S2 Gastrointestinal: Normal bowel sounds, Soft and benign Integumentary: No rashes - Studies Microbiology Data (last 24 hrs): 10/14/18 10:45 Throat Culture & Sensitivity - Final Assessment And Plan - Current Problems (Diagnosis) (1) Coronary arteriosclerosis Onset Date: 08/21/18 Current Visit: No Status: Chronic (2) Diabetes mellitus Onset Date: 09/13/16 Current Visit: No Status: Chronic (3) End stage renal failure on dialysis Onset Date: 09/13/16 Current Visit: No Status: Chronic - Plan Assessment And Plan: End-stage renal disease,on HD TTsat from via Lt AVF HD today renal diet renal dose meds Hypertension, controlled optimal. Continue current medication. Anemia of chronic kidney disease. Hb >11.0 , BEAU on Hold Metabolic bone disease Cont renvela Dm as per primary Physician Review: Patient Assessed, Agree with Above Assessment and Plan
[2018-10-17] MEDS: ENOXAPARIN 30 MG/0.3 ML SQ SCH (18:09)
[2018-10-17] MEDS: INSULIN GLARGINE 100 UNITS/ML SQ SCH (21:03)
[2018-10-17] MEDS: CITALOPRAM 10 MG TABLET PO SCH (21:04)
[2018-10-17] MEDS: CEFEPIME/SWI 1gm 1 GM/10 ML SYR IVP SCH (21:04)
[2018-10-17] MEDS: CLOPIDOGREL 75 MG TABLET PO SCH (21:05)
[2018-10-18] MEDS: ZINC SULFATE 220 MG CAP PO SCH (08:45)
[2018-10-18] MEDS: PREGABALIN 75 MG CAP PO SCH (08:46)
[2018-10-18] MEDS: MULTIVITAMINS,THERAPEUT 1 TAB PO SCH (08:46)
[2018-10-18] MEDS: ASCORBIC ACID 500 MG TABLET PO SCH ×2 (08:46→21:08)
[2018-10-18] MEDS: AMLODIPINE 2.5 MG TAB PO SCH (08:46)
[2018-10-18] MEDS: GABAPENTIN 100 MG CAP PO SCH ×2 (08:46→21:08)
[2018-10-18] MEDS: SEVELAMER CARBONATE 800 MG TABLET PO SCH ×3 (08:46→17:19)
[2018-10-18] MEDS: CILOSTAZOL 100 MG TAB PO SCH ×2 (08:47→21:07)
[2018-10-18] MEDS: SERTRALINE HCL 50 MG TAB PO SCH (08:47)
[2018-10-18] MEDS: ASPIRIN EC 81 MG TAB PO SCH (08:47)
[2018-10-18] MEDS: PANTOPRAZOLE 40MG TABLET PO SCH (08:47)
--- NOTE | 2018-10-18 09:30 | P.PN ---
Subjective Date of Service: 10/18/18 Primary Care Provider: Merna Chief Complaint: hospital aquired pneumonia Review of Systems 10-point ROS is otherwise unremarkable Physical Examination - Vital Signs Temperature: 99.4 F Blood Pressure: 161/80 Pulse: 84 Respirations: 16 Pulse Ox (%): 93 - Physical Exam General: Alert, In no apparent distress HEENT: Atraumatic, PERRLA, EOMI Neck: Supple, JVD not distended Respiratory: Clear to auscultation bilaterally, Normal air movement Cardiovascular: Regular rate/rhythm, Normal S1 S2 Gastrointestinal: Normal bowel sounds, No tenderness Musculoskeletal: No tenderness Integumentary: No rashes Neurological: Normal speech, Normal tone, Normal affect Lymphatics: No axilla or inguinal lymphadenopathy Assessment & Plan - Problems (Diagnosis) (1) Discharge planning issues Current Visit: Yes Status: Acute Plan: Patient was kept for dalysis. His family requested usp placement. There was a call to the office that the family was taking the patient home. This was yesterday afternoon. Then adult protective services showed up at the hospital social workers office. They could not disclose who, but a report had been filed that the patient was living in an unsafe environment. Will have to keep him in house till an inspection is made. (2) Hospital-acquired pneumonia Onset Date: 10/15/18 Current Visit: Yes Status: Acute Plan: will start the patient on cefepime. Continue bipap. Will see if we can wean him off. Will check lower extremity duplex in the am. To see if possible pe (3) ESRD (end stage renal disease) Onset Date: 08/05/18 Current Visit: No Status: Chronic Plan: consult to Dr. Hawkins for dialysis care. He is much more alert after dialysis. Off the bipap, he initially presented with hypoxia and respiratory failure secondary to volume overload (4) Peripheral vascular disease due to secondary diabetes Onset Date: 05/27/18 Current Visit: No Status: Chronic Plan: SP right forefoot amputation. Continue wound vac. Will consult wound care in the morning (5) Diabetes mellitus Onset Date: 09/13/16 Current Visit: No Status: Chronic Plan: Hold meds till the morning will keep a low dose ISS Discharge Plan: Other (will need to decide pending the investigation) - Code Status/Comfort Care Code Status Assessed: No Physician Review: Patient Assessed, Agree with Above Assessment and Plan Critical Care: No Time Spent Managing Pts Care (In Minutes): 20
[2018-10-18] MEDS: ENOXAPARIN 30 MG/0.3 ML SQ SCH (17:19)
[2018-10-18] MEDS: CEFEPIME/SWI 1gm 1 GM/10 ML SYR IVP SCH (21:07)
[2018-10-18] MEDS: INSULIN GLARGINE 100 UNITS/ML SQ SCH (21:07)
[2018-10-18] MEDS: CLOPIDOGREL 75 MG TABLET PO SCH (21:08)
[2018-10-18] MEDS: CITALOPRAM 10 MG TABLET PO SCH (21:08)
--- NOTE | 2018-10-18 23:50 | P.PN ---
Subjective Date of Service: 10/18/18 Primary Care Provider: Merna Chief Complaint: hospital aquired pneumonia Subjective: No new changes Pt admitted for SOB and fluid overload improved on HD pending discharge for now , adult protective service involved will cont HD TTSAt will increase amlodipine Physical Examination - Vital Signs Temperature: 98.7 F Blood Pressure: 169/80 Pulse: 99 Respirations: 20 Pulse Ox (%): 96 - Physical Exam General: Alert, In no apparent distress HEENT: Atraumatic Neck: Supple, Without JVD or thyroid abnormality Respiratory: Clear to auscultation bilaterally, Normal air movement Cardiovascular: No edema, Regular rate/rhythm Gastrointestinal: Normal bowel sounds Assessment And Plan - Current Problems (Diagnosis) (1) Coronary arteriosclerosis Onset Date: 08/21/18 Current Visit: No Status: Chronic (2) Diabetes mellitus Onset Date: 09/13/16 Current Visit: No Status: Chronic (3) End stage renal failure on dialysis Onset Date: 09/13/16 Current Visit: No Status: Chronic - Plan Assessment And Plan: End-stage renal disease,on HD TTsat from [place] via Lt AVF HD TTsat renal diet renal dose meds Hypertension, will increase amlodipine Anemia of chronic kidney disease. Hb >11.0 , BEAU on Hold Metabolic bone disease Cont renvela Dm as per primary Physician Review: Patient Assessed, Agree with Above Assessment and Plan
[2018-10-19] MEDS: CILOSTAZOL 100 MG TAB PO SCH ×2 (09:55→20:22)
[2018-10-19] MEDS: PANTOPRAZOLE 40MG TABLET PO SCH (09:56)
[2018-10-19] MEDS: GABAPENTIN 100 MG CAP PO SCH ×2 (09:56→20:23)
[2018-10-19] MEDS: AMLODIPINE 5 MG TAB PO SCH (09:56)
[2018-10-19] MEDS: MULTIVITAMINS,THERAPEUT 1 TAB PO SCH (09:56)
[2018-10-19] MEDS: ASCORBIC ACID 500 MG TABLET PO SCH ×2 (09:56→20:22)
[2018-10-19] MEDS: ASPIRIN EC 81 MG TAB PO SCH (09:56)
[2018-10-19] MEDS: SERTRALINE HCL 50 MG TAB PO SCH (09:56)
[2018-10-19] MEDS: PREGABALIN 75 MG CAP PO SCH (09:56)
[2018-10-19] MEDS: ZINC SULFATE 220 MG CAP PO SCH (09:56)
[2018-10-19] MEDS: SEVELAMER CARBONATE 800 MG TABLET PO SCH ×3 (09:56→17:00)
--- NOTE | 2018-10-19 10:15 | P.PN ---
Subjective Date of Service: 10/19/18 Primary Care Provider: Merna Chief Complaint: hospital aquired pneumonia Subjective: No new changes Review of Systems 10-point ROS is otherwise unremarkable Musculoskeletal: Neck Pain Physical Examination - Vital Signs Temperature: 98.2 F Blood Pressure: 154/70 Pulse: 68 Respirations: 18 Pulse Ox (%): 94 - Physical Exam General: Alert, In no apparent distress HEENT: Atraumatic, PERRLA, EOMI Neck: Supple, JVD not distended Respiratory: Clear to auscultation bilaterally, Normal air movement Cardiovascular: Regular rate/rhythm, Normal S1 S2 Gastrointestinal: Normal bowel sounds, No tenderness Musculoskeletal: No tenderness Integumentary: No rashes Neurological: Normal speech, Normal tone, Normal affect Lymphatics: No axilla or inguinal lymphadenopathy - Studies Microbiology Data (last 24 hrs): 10/14/18 09:44 Blood - Blood Aerobic Blood Culture - Final No growth in 5 days. 10/14/18 09:44 Blood - Blood Anaerobic Blood Culture - Final No growth in 5 days. Assessment & Plan - Problems (Diagnosis) (1) Discharge planning issues Current Visit: Yes Status: Acute Plan: Patient was kept for dalysis. His family requested skilled nursing placement. There was a call to the office that the family was taking the patient home. This was yesterday afternoon. Then adult protective services showed up at the hospital social workers office. They could not disclose who, but a report had been filed that the patient was living in an unsafe environment. Will have to keep him in house till an inspection is made. (2) Hospital-acquired pneumonia Onset Date: 10/15/18 Current Visit: Yes Status: Acute Plan: will start the patient on cefepime. Continue bipap. Will see if we can wean him off. Will check lower extremity duplex in the am. To see if possible pe (3) ESRD (end stage renal disease) Onset Date: 08/05/18 Current Visit: No Status: Chronic Plan: consult to Dr. Hawkins for dialysis care. He is much more alert after dialysis. Off the bipap, he initially presented with hypoxia and respiratory failure secondary to volume overload (4) Peripheral vascular disease due to secondary diabetes Onset Date: 05/27/18 Current Visit: No Status: Chronic Plan: SP right forefoot amputation. Continue wound vac. Will consult wound care in the morning (5) Diabetes mellitus Onset Date: 09/13/16 Current Visit: No Status: Chronic Plan: Hold meds till the morning will keep a low dose ISS Discharge Plan: Other (pending aps investigation will decide) Plan to discharge in: Greater than 2 days - Code Status/Comfort Care Code Status Assessed: No Physician Review: Patient Assessed, Agree with Above Assessment and Plan Critical Care: No Time Spent Managing Pts Care (In Minutes): 15
[2018-10-19] MEDS: ACETAMINOPHEN 325 MG TABLET PO SCH ×2 (12:03→20:22)
[2018-10-19] MEDS ORDERED: ACETAMINOPHEN 500 MG TAB PO SCH (14:00)
[2018-10-19] MEDS ORDERED: ALBUMIN HUMAN 25% 50 ML IV SCH (16:00)
[2018-10-19] MEDS ORDERED: MIDODRINE HCL 5 MG TABLET PO PRN (16:09)
--- NOTE | 2018-10-19 16:51 | PN ---
Date of Progress Note: 10/19/2018 Chief Complaint: End-stage renal disease. History Of Present Illness: The patient is improving with dialysis and ultrafiltration. The patient is to have dialysis today. Hypertension, blood pressure is 11. The patient is to take amlodipine and dose was increased recently. Review of Systems: Denies fever, chills. Physical Examination: Lungs: Few crackles at the bases. Heart: S1, S2. Abdomen: Soft, benign. Extremities: Slight edema. Impression: 1. End-stage renal disease, over-volume with respiratory symptoms, status post dialysis with ultrafiltration to control volemia. 2. Coronary artery disease. The patient is currently asymptomatic. Continue beta-joellen. 3. Diabetes mellitus. Continue insulin. 4. Anemia of chronic kidney disease. Monitor hemoglobin level and start BEAU, currently BEAU is on hold. Plan is to resume BEAU when hemoglobin is below 10. 5. Renal osteodystrophy. Continue Renvela. Monitor phosphorus level. LEESA/ANDRE Voice ID: [id number] Report ID: [id number] MTDD
[2018-10-19] MEDS: ENOXAPARIN 30 MG/0.3 ML SQ SCH (17:00)
[2018-10-19] MEDS: INSULIN GLARGINE 100 UNITS/ML SQ SCH (20:23)
[2018-10-19] MEDS: CEFEPIME/SWI 1gm 1 GM/10 ML SYR IVP SCH (20:23)
[2018-10-19] MEDS: CITALOPRAM 10 MG TABLET PO SCH (20:23)
[2018-10-19] MEDS: CLOPIDOGREL 75 MG TABLET PO SCH (20:24)
[2018-10-19 20:45] LABS: HBsAG Nonreactive (Nonreactive)
[2018-10-20] MEDS: AMLODIPINE 5 MG TAB PO SCH (09:34)
[2018-10-20] MEDS: GABAPENTIN 100 MG CAP PO SCH ×2 (09:34→20:59)
[2018-10-20] MEDS: ZINC SULFATE 220 MG CAP PO SCH (09:34)
[2018-10-20] MEDS: MULTIVITAMINS,THERAPEUT 1 TAB PO SCH (09:34)
[2018-10-20] MEDS: PREGABALIN 75 MG CAP PO SCH (09:35)
[2018-10-20] MEDS: ACETAMINOPHEN 325 MG TABLET PO SCH ×3 (09:35→20:59)
[2018-10-20] MEDS: ASPIRIN EC 81 MG TAB PO SCH (09:36)
[2018-10-20] MEDS: SERTRALINE HCL 50 MG TAB PO SCH (09:36)
[2018-10-20] MEDS: ASCORBIC ACID 500 MG TABLET PO SCH ×2 (09:37→20:59)
[2018-10-20] MEDS: CILOSTAZOL 100 MG TAB PO SCH ×2 (09:37→21:02)
[2018-10-20] MEDS: PANTOPRAZOLE 40MG TABLET PO SCH (09:38)
[2018-10-20] MEDS: SEVELAMER CARBONATE 800 MG TABLET PO SCH ×3 (09:39→16:43)
--- NOTE | 2018-10-20 14:48 | P.PN ---
Subjective Date of Service: 10/20/18 Primary Care Provider: Merna Chief Complaint: hospital aquired pneumonia Subjective: No new changes Review of Systems 10-point ROS is otherwise unremarkable General: Weakness (Patient has difficutly getting out of bed) Physical Examination - Vital Signs Temperature: 98.2 F Blood Pressure: 157/74 Pulse: 81 Respirations: 16 Pulse Ox (%): 95 - Physical Exam General: Alert, In no apparent distress HEENT: Atraumatic, PERRLA, EOMI Neck: Supple, JVD not distended Respiratory: Clear to auscultation bilaterally, Normal air movement Cardiovascular: Regular rate/rhythm, Normal S1 S2 Gastrointestinal: Normal bowel sounds, No tenderness Musculoskeletal: No tenderness Integumentary: No rashes Neurological: Normal speech, Normal tone, Normal affect Lymphatics: No axilla or inguinal lymphadenopathy - Studies Microbiology Data (last 24 hrs): 10/14/18 10:00 Blood - Blood Aerobic Blood Culture - Final No growth in 5 days. 10/14/18 10:00 Blood - Blood Anaerobic Blood Culture - Final No growth in 5 days. 10/14/18 09:44 Blood - Blood Aerobic Blood Culture - Final No growth in 5 days. 10/14/18 09:44 Blood - Blood Anaerobic Blood Culture - Final No growth in 5 days. Assessment & Plan - Problems (Diagnosis) (1) Discharge planning issues Current Visit: Yes Status: Acute Plan: Have seen the family today. They do not know who called aps. The main concern is transportation. The patient is very weak. Has difficulty getting him to dialysis. They were hoping for a transportation service. Will discuss with social director on Sunday. Will need to await the results of aps investigation. (2) Hospital-acquired pneumonia Onset Date: 10/15/18 Current Visit: Yes Status: Acute Plan: will start the patient on cefepime. Continue bipap. Will see if we can wean him off. Will check lower extremity duplex in the am. To see if possible pe (3) ESRD (end stage renal disease) Onset Date: 08/05/18 Current Visit: No Status: Chronic Plan: consult to Dr. Hawkins for dialysis care. He is much more alert after dialysis. Off the bipap, he initially presented with hypoxia and respiratory failure secondary to volume overload (4) Peripheral vascular disease due to secondary diabetes Onset Date: 05/27/18 Current Visit: No Status: Chronic Plan: SP right forefoot amputation. Continue wound vac. Will consult wound care in the morning (5) Diabetes mellitus Onset Date: 09/13/16 Current Visit: No Status: Chronic Plan: Hold meds till the morning will keep a low dose ISS Discharge Plan: Other Plan to discharge in: 48 Hours - Code Status/Comfort Care Code Status Assessed: No Physician Review: Patient Assessed, Agree with Above Assessment and Plan Critical Care: No Time Spent Managing Pts Care (In Minutes): 25
[2018-10-20] MEDS: ENOXAPARIN 30 MG/0.3 ML SQ SCH (16:44)
[2018-10-20] MEDS: CITALOPRAM 10 MG TABLET PO SCH (20:58)
[2018-10-20] MEDS: CLOPIDOGREL 75 MG TABLET PO SCH (20:58)
[2018-10-20] MEDS: INSULIN GLARGINE 100 UNITS/ML SQ SCH (21:02)
--- NOTE | 2018-10-21 01:41 | PN ---
Date of Progress Note: 10/20/2018 Chief Complaint: End-stage renal disease. History Of Present Illness: The patient received dialysis yesterday. Ultrafiltration was minimal be cause of intradialytic hypotension. The patient will receive IV albumin and midodrine for blood pres sure support. Review of Systems: The patient denies fever or chills. Denies nausea or vomiting. Physical Examination: Lungs: Few crackles at bases. Heart: S1, S2. No pericardial friction or rub. Abdomen: Soft, benign. Extremities: Slight edema. Impression And Plan: 1.End-stage renal disease, mild fluid overload, congestive heart failure. The patient will have lyssa lysis with ultrafiltration tomorrow to control volemia. Provide metabolic clearance. 2.Coronary artery disease. The patient is asymptomatic. Continue beta-joellen. 3.Diabetes mellitus, on insulin. Monitor blood glucose and adjust insulin according to sliding scal e. 4.Anemia of chronic kidney disease. The patient will continue BEAU. Currently, BEAU on hold. Plan i s to resume BEAU when hemoglobin is below 10. 5.Renal osteodystrophy. Continue Renvela. Monitor phosphorus level. EB/MODBishop Voice ID: [id number] Report ID: [id number]
[2018-10-21 04:27] LABS: Absolute Lymphocytes (CBC) 1.3 K/uL (0.7-4.9); Absolute Monocytes 0.5 K/uL (0.1-1.3); Absolute Neutrophil 2.6 K/uL (1.8-8.0); Basophils % 0.9 % (0-1.3); Hematocrit 32.9 % (39.6-49.0); Lymphocytes % 26.2 % (15.3-44.8); MPV 10.1 fL (7.6-11.3); Monocytes % 10.8 % (3.3-12.3); RBC Red Blood Cell Count 3.37 M/uL (4.33-5.43)
[2018-10-21 05:22] LABS: Potassium 3.9 mmol/L (3.5-5.1)
[2018-10-21] MEDS: SEVELAMER CARBONATE 800 MG TABLET PO SCH ×4 (08:00→17:15)
[2018-10-21] MEDS: PANTOPRAZOLE 40MG TABLET PO SCH ×2 (08:00→11:35)
[2018-10-21] MEDS: SERTRALINE HCL 50 MG TAB PO SCH ×2 (09:00→11:41)
[2018-10-21] MEDS: ASCORBIC ACID 500 MG TABLET PO SCH ×3 (09:00→20:56)
[2018-10-21] MEDS: levoFLOXacin 500 MG TAB PO SCH ×2 (09:00→11:37)
[2018-10-21] MEDS: ZINC SULFATE 220 MG CAP PO SCH ×2 (09:00→11:36)
[2018-10-21] MEDS: MULTIVITAMINS,THERAPEUT 1 TAB PO SCH ×2 (09:00→11:37)
[2018-10-21] MEDS: ASPIRIN EC 81 MG TAB PO SCH ×2 (09:00→11:34)
[2018-10-21] MEDS: PREGABALIN 75 MG CAP PO SCH ×2 (09:00→11:36)
[2018-10-21] MEDS: AMLODIPINE 5 MG TAB PO SCH ×2 (09:00→11:33)
[2018-10-21] MEDS: ACETAMINOPHEN 325 MG TABLET PO SCH ×5 (09:00→20:55)
[2018-10-21] MEDS: GABAPENTIN 100 MG CAP PO SCH ×3 (09:00→20:54)
[2018-10-21] MEDS: CILOSTAZOL 100 MG TAB PO SCH ×3 (09:00→21:00)
--- NOTE | 2018-10-21 13:59 | P.PN ---
Subjective Date of Service: 10/21/18 Primary Care Provider: Merna Chief Complaint: hospital aquired pneumonia Subjective: No new changes pt in dialysis Review of Systems 10-point ROS is otherwise unremarkable Physical Examination - Vital Signs Temperature: 98.4 F Blood Pressure: 159/79 Pulse: 90 Respirations: 20 Pulse Ox (%): 98 - Physical Exam General: Alert, In no apparent distress HEENT: Atraumatic, PERRLA, EOMI Neck: Supple, JVD not distended Respiratory: Clear to auscultation bilaterally, Normal air movement Cardiovascular: Regular rate/rhythm, Normal S1 S2 Gastrointestinal: Normal bowel sounds, No tenderness Musculoskeletal: No tenderness Integumentary: No rashes Neurological: Normal speech, Normal tone, Normal affect Lymphatics: No axilla or inguinal lymphadenopathy Assessment & Plan - Problems (Diagnosis) (1) Discharge planning issues Current Visit: Yes Status: Acute Plan: Discussed with social services assistant. See if the family can be reached. Will he go to [place] or home with transportation to the dialysis unit. (2) Hospital-acquired pneumonia Onset Date: 10/15/18 Current Visit: Yes Status: Acute Plan: will start the patient on cefepime. Continue bipap. Will see if we can wean him off. Will check lower extremity duplex in the am. To see if possible pe (3) ESRD (end stage renal disease) Onset Date: 08/05/18 Current Visit: No Status: Chronic Plan: consult to Dr. Hawkins for dialysis care. He is much more alert after dialysis. Off the bipap, he initially presented with hypoxia and respiratory failure secondary to volume overload (4) Peripheral vascular disease due to secondary diabetes Onset Date: 05/27/18 Current Visit: No Status: Chronic Plan: SP right forefoot amputation. Continue wound vac. Will consult wound care in the morning (5) Diabetes mellitus Onset Date: 09/13/16 Current Visit: No Status: Chronic Plan: Hold meds till the morning will keep a low dose ISS Discharge Plan: Other Plan to discharge in: 24 Hours - Code Status/Comfort Care Code Status Assessed: No Physician Review: Patient Assessed, Agree with Above Assessment and Plan Critical Care: No Time Spent Managing Pts Care (In Minutes): 25
[2018-10-21] MEDS: ENOXAPARIN 30 MG/0.3 ML SQ SCH (17:15)
[2018-10-21] MEDS: INSULIN GLARGINE 100 UNITS/ML SQ SCH (20:54)
[2018-10-21] MEDS: CLOPIDOGREL 75 MG TABLET PO SCH (20:55)
[2018-10-21] MEDS: CITALOPRAM 10 MG TABLET PO SCH (20:55)
--- NOTE | 2018-10-22 03:53 | PN ---
Date of Progress Note: 10/21/2018 Chief Complaint: End-stage renal disease, fluid overload. The patient is undergoing dialysis today with ultrafiltration. The patient has history of intradialytic hypotension and received IV albumin f or blood pressure support. Midodrine was used to prevent intradialytic hypotension. Review of Systems: The patient denies fever, chills. Physical Examination: Lungs: Few crackles at bases. Heart: S1, S2. No pericardial friction rub. Abdomen: Soft, benign, nontender. Extremities: Slight edema. Impression And Plan: 1.End-stage renal disease, mild fluid overload, congestive heart failure. The patient will have lyssa lysis with ultrafiltration. Continue to monitor blood pressure during dialysis. 2.Coronary artery disease. The patient is asymptomatic. Continue beta-joellen. 3.Diabetes mellitus on insulin. Adjust insulin according to sliding scale. 4.Anemia secondary to chronic kidney disease. Continue BEAU. 5.Renal osteodystrophy. Continue Renvela. Monitor phosphorus level. LEESA/ANDRE Voice ID: [id number] Report ID: [id number]
[2018-10-22] MEDS: PANTOPRAZOLE 40MG TABLET PO SCH (08:59)
[2018-10-22] MEDS: ZINC SULFATE 220 MG CAP PO SCH (08:59)
[2018-10-22] MEDS: ACETAMINOPHEN 325 MG TABLET PO SCH ×3 (08:59→21:41)
[2018-10-22] MEDS: GABAPENTIN 100 MG CAP PO SCH ×2 (08:59→21:43)
[2018-10-22] MEDS: SERTRALINE HCL 50 MG TAB PO SCH (08:59)
[2018-10-22] MEDS: SEVELAMER CARBONATE 800 MG TABLET PO SCH ×3 (08:59→16:15)
[2018-10-22] MEDS: ASCORBIC ACID 500 MG TABLET PO SCH ×2 (08:59→21:42)
[2018-10-22] MEDS: AMLODIPINE 5 MG TAB PO SCH (09:00)
[2018-10-22] MEDS: MULTIVITAMINS,THERAPEUT 1 TAB PO SCH (09:00)
[2018-10-22] MEDS: PREGABALIN 75 MG CAP PO SCH (09:00)
[2018-10-22] MEDS: CILOSTAZOL 100 MG TAB PO SCH ×2 (09:00→21:41)
[2018-10-22] MEDS: ASPIRIN EC 81 MG TAB PO SCH (09:01)
--- NOTE | 2018-10-22 09:14 | P.DS ---
Admission Date: 10/14/18 Discharge Date: 10/22/18 Primary Care Provider: Merna Disposition: TRANSFER TO ASSISTED Discharge Condition: GOOD Reason for Admission: hospital aquired pneumonia - Problems (1) Discharge planning issues Current Visit: Yes Status: Acute (2) Hospital-acquired pneumonia Onset Date: 10/15/18 Current Visit: Yes Status: Acute (3) ESRD (end stage renal disease) Onset Date: 08/05/18 Current Visit: No Status: Chronic (4) Peripheral vascular disease due to secondary diabetes Onset Date: 05/27/18 Current Visit: No Status: Chronic (5) Diabetes mellitus Onset Date: 09/13/16 Current Visit: No Status: Chronic Brief History of Present Illness: [facility] patient of mine. Had a history of PVD and ESRD. The patient was sent to [facility] last month. Had been planning for revascularization. Unfortunately that plan failed ant the patient ended up having a right midfoot amputation. He was in a rehab center for the rest of the month. Was disharged less than a week ago. The patient was complainting of fever and chills yesterday. Per the daughter he was very lethargic. Brought to er where he was found to be hypoxic. He was started on a bipap. Unfortuanately he is not able to give a history. Most of this was from the patients daughters. Hospital Course: Patient was admitted to the ICU. He improved after dialysis and 2 lts were removed. He is currently doing much better. Blood cultures are negative. The patient discharge was held due to aps investigation. The family was having difficulty taking care of the patient and getting him to the dialysis center. The patient does have several medical problems. The patient needs dialysis, a wound vac. He is total assist during transfering. He also needs transportation for treatment of his pvd. Will have wound care see him and evaluate. he can follow up with his dialysis and in the wound care center with me. Thank you for allowing me to be a part of his care. Vital Signs/Physical Exam: Temp Pulse Resp BP Pulse Ox 98.3 F 89 15 158/78 H 97 10/22/18 04:00 10/22/18 09:00 10/22/18 04:00 10/22/18 09:00 10/22/18 04:00 General: Alert, In no apparent distress HEENT: Atraumatic, PERRLA, EOMI Neck: Supple, JVD not distended Respiratory: Clear to auscultation bilaterally, Normal air movement Cardiovascular: Regular rate/rhythm, Normal S1 S2 Gastrointestinal: Normal bowel sounds, No tenderness Musculoskeletal: No tenderness Integumentary: No rashes Neurological: Normal speech, Normal tone, Normal affect Lymphatics: No axilla or inguinal lymphadenopathy Laboratory Data at Discharge: WBC 5.1 K/uL (4.3-10.9) D 10/21/18 03:53 Hgb 10.9 g/dL (13.6-17.9) L D 10/21/18 03:53 Hct 32.9 % (39.6-49.0) L D 10/21/18 03:53 Plt Count 209 K/uL (152-406) D 10/21/18 03:53 PT 12.9 SECONDS (9.5-12.5) H 10/14/18 09:44 INR 1.09 10/14/18 09:44 APTT 32.5 SECONDS (24.3-36.9) 10/14/18 09:44 Sodium 135 mmol/L (136-145) L 10/21/18 03:53 Potassium 3.9 mmol/L (3.5-5.1) 10/21/18 03:53 BUN 40 mg/dL (7-18) H 10/21/18 03:53 Creatinine 4.24 mg/dL (0.55-1.3) H 10/21/18 03:53 Glucose 126 mg/dL (74-106) H 10/21/18 03:53 Troponin I 0.89 ng/mL (0.0-0.045) H* 10/14/18 20:40 Home Medications: Gabapentin [Neurontin*] 100 mg PO BID 12/31/12 Pravastatin [Pravachol*] 40 mg PO BEDTIME 12/31/12 Citalopram [Celexa*] 10 mg PO BEDTIME 04/15/16 Carbidopa/Levodopa [Carbidopa-Levo 25-100 mg Odt] 1 tab PO BID 09/12/16 Pregabalin [Lyrica] 75 mg PO DAILY 05/25/18 Sertraline HCl 50 mg PO DAILY 90 Days #90 tablet 08/07/18 Cilostazol 100 mg PO BID 08/20/18 Clopidogrel Bisulfate [Plavix] 75 mg PO BEDTIME 08/20/18 Amlodipine [Norvasc] 2.5 mg PO DAILY 10/14/18 Ascorbic Acid [Vitamin C] 500 mg PO BID 10/14/18 Aspirin [Adult Low Dose Aspirin EC] 81 mg PO DAILY 10/14/18 Folic Acid/Vit Bcomp,C [Renal Vitamin Tablet] 0.8 mg PO DAILY 10/14/18 Heparin [Heparin 5,000 units/mL] 5,000 unit SQ Q8H 10/14/18 Insulin Detemir [Levemir] 10 units SQ BEDTIME 10/14/18 Metoprolol Tartrate [Lopressor] 25 mg PO BID 10/14/18 Nepro Shake [Nepro*] 237 ml PO BID 10/14/18 Pantoprazole [Protonix Tab] 40 mg PO BREAKFAST 10/14/18 Sevelamer Carbonate 800 mg PO TID 10/14/18 Zinc Sulfate [Zinc Sulfate*] 220 mg PO DAILY 10/14/18 Diet: Renal Activity: Ad reji Followup: Annelise Estevez MD [ACTIVE - CAN ADMIT] - 1-2 Days Ganesh Bauman MD [Primary Care Provider] - 1-2 Weeks (can follow up in the wound care center) Time spent managing pt's care (in minutes): 30
[2018-10-22] MEDS: ENOXAPARIN 30 MG/0.3 ML SQ SCH (16:15)
--- NOTE | 2018-10-22 20:54 | PN ---
Date of Progress Note: 10/22/2018 Subjective: The patient was admitted with over volume, recovered, resolved. The patient developed s uspect of pneumonia. The patient is deconditioning, waiting for placement. Physical Examination: Vital Signs: Blood pressure 129/72, pulse of 95. The patient had dialysis yesterday, tolerated the dialysis very well. Chest: Faint crackles on the left base. Heart: S1, S2 regular. Abdomen: Soft, nontender. Extremity: No edema. Laboratory Data: H and H 10.9/32.9. Sodium 135, potassium 3.9, bicarb 29, BUN 40, creatinine 4.2, c alcium 8.8. Current Medications: 1.Levaquin 500 every 48 hours. 2.Aspirin. 3.Plavix. 4.Pletal. 5.Lovenox. 6.Amlodipine. 7.Gabapentin. 8.Celexa. 9.Lyrica 75 daily. 10.Zoloft. 11.Renvela 800 with each meal. 12.Zinc sulfate. 13.Breathing treatment. Assessment And Plan: 1.End-stage renal disease, currently normal volume. I am going to continue the patient on dialysis Sunday, Sunday, Sunday. We will arrange for dialysis tomorrow. 2.Hypertension, controlled, optimal. Continue current medication. 3.Hyperkalemia, resolved. 4.Congestive heart failure exacerbation, recovered, resolved. 5.Deconditioning. Continue PT/OT. 6.Atypical pneumonia. Continue Levaquin. 7.Anemia of chronic kidney disease, stable. 8.Secondary hyperparathyroidism. Calcium and phosphorus on the goal. I am going to continue Renvel a for the time being. HARISH Voice ID: [id number] Report ID: [id number]
[2018-10-22] MEDS: INSULIN GLARGINE 100 UNITS/ML SQ SCH (21:00)
[2018-10-22] MEDS: CITALOPRAM 10 MG TABLET PO SCH (21:42)
[2018-10-22] MEDS: CLOPIDOGREL 75 MG TABLET PO SCH (21:43)
[2018-10-23] MEDS: ASCORBIC ACID 500 MG TABLET PO SCH (08:43)
[2018-10-23] MEDS: ASPIRIN EC 81 MG TAB PO SCH (08:43)
[2018-10-23] MEDS: AMLODIPINE 5 MG TAB PO SCH (08:43)
[2018-10-23] MEDS: ZINC SULFATE 220 MG CAP PO SCH (08:43)
[2018-10-23] MEDS: SEVELAMER CARBONATE 800 MG TABLET PO SCH ×3 (08:43→16:32)
[2018-10-23] MEDS: MULTIVITAMINS,THERAPEUT 1 TAB PO SCH (08:43)
[2018-10-23] MEDS: PREGABALIN 75 MG CAP PO SCH (08:43)
[2018-10-23] MEDS: ACETAMINOPHEN 325 MG TABLET PO SCH ×2 (08:44→13:57)
[2018-10-23] MEDS: PANTOPRAZOLE 40MG TABLET PO SCH (08:44)
[2018-10-23] MEDS: GABAPENTIN 100 MG CAP PO SCH (08:44)
[2018-10-23] MEDS: SERTRALINE HCL 50 MG TAB PO SCH (08:44)
[2018-10-23] MEDS: levoFLOXacin 500 MG TAB PO SCH (08:44)
[2018-10-23] MEDS: CILOSTAZOL 100 MG TAB PO SCH ×2 (08:48→11:13)
--- NOTE | 2018-10-23 09:32 | P.PN ---
Subjective Date of Service: 10/23/18 Primary Care Provider: Merna Chief Complaint: hospital aquired pneumonia Subjective: No new changes Review of Systems 10-point ROS is otherwise unremarkable Physical Examination - Vital Signs Temperature: 97.8 F Blood Pressure: 159/74 Pulse: 82 Respirations: 18 Pulse Ox (%): 98 - Physical Exam General: Alert, In no apparent distress HEENT: Atraumatic, PERRLA, EOMI Neck: Supple, JVD not distended Respiratory: Clear to auscultation bilaterally, Normal air movement Cardiovascular: Regular rate/rhythm, Normal S1 S2 Gastrointestinal: Normal bowel sounds, No tenderness Musculoskeletal: No tenderness Integumentary: No rashes Neurological: Normal speech, Normal tone, Normal affect Lymphatics: No axilla or inguinal lymphadenopathy Assessment & Plan - Problems (Diagnosis) (1) Discharge planning issues Current Visit: Yes Status: Acute Plan: Discussed with manager social responsibility. family is working on medicare paper work. [place] is submitting the records. Awaiting the proper documentation. (2) Hospital-acquired pneumonia Onset Date: 10/15/18 Current Visit: Yes Status: Acute Plan: will start the patient on cefepime. Continue bipap. Will see if we can wean him off. Will check lower extremity duplex in the am. To see if possible pe (3) ESRD (end stage renal disease) Onset Date: 08/05/18 Current Visit: No Status: Chronic Plan: consult to Dr. Hawkins for dialysis care. He is much more alert after dialysis. Off the bipap, he initially presented with hypoxia and respiratory failure secondary to volume overload (4) Peripheral vascular disease due to secondary diabetes Onset Date: 05/27/18 Current Visit: No Status: Chronic Plan: SP right forefoot amputation. Continue wound vac. Will consult wound care in the morning (5) Diabetes mellitus Onset Date: 09/13/16 Current Visit: No Status: Chronic Plan: Hold meds till the morning will keep a low dose ISS Physician Review: Patient Assessed, Agree with Above Assessment and Plan
[2018-10-23] MEDS: ENOXAPARIN 30 MG/0.3 ML SQ SCH (16:32)
--- NOTE | 2018-10-23 16:34 | PN ---
Date of Progress Note: 10/23/2018 NEPHROLOGY FOLLOWUP Subjective: The patient is doing well. No complaint. No nausea, no vomiting. Physical Examination: Vital Signs: When I saw the patient blood pressure 159/74, pulse of 82, afebrile. Chest: Clear to auscultation. Heart: S1 and S2, systolic murmur. Abdomen: Soft, nontender. Extremities: No edema. Dressing on the right foot with status post TMA. Laboratory Data: WBC 5.1, H and H of 10.9 and 32.9, platelets 209. Sodium 135, potassium 3.9, bicar b 29, BUN 40, creatinine 4.2, and calcium 8.8. Current Medications: The patient on it includes, 1.Aspirin. 2.Levaquin 500 q.48. 3.Pletal. 4.Plavix. 5.Lovenox. 6.Amlodipine 5 mg daily. 7.Citalopram. 8.Gabapentin. 9.Renvela 1 tablet with each meal. 10.Insulin. 11.Pantoprazole. Assessment And Plan: 1.End-stage renal disease. Normal volume. We will continue the patient on dialysis Sunday, , and Sunday. 2.Secondary hyperparathyroidism. Continue Renvela. 3.Anemia of chronic kidney disease. Continue Epogen. 4.Foot infection. Continue current antibiotic. We will follow up with ID. 5.Diabetes, stable. Follow up with the primary. 6.Peripheral vascular disease, stable. MEREDITH/ANDRE Voice ID: [id number] Report ID: [id number]
[2018-10-23 20:07] LABS: Hep C Virus RNA (PCR)log 5.18 log IU/mL
[2018-10-23] MEDS: INSULIN GLARGINE 100 UNITS/ML SQ SCH (21:00)
[2018-10-23] MEDS ORDERED: NA CHLORIDE 0.9% 1,000 ML IV PRN (21:41)
[2018-10-23] MEDS ORDERED: ALBUMIN HUMAN 25% 50 ML IV SCH (22:00)
[2018-10-24] MEDS: CITALOPRAM 10 MG TABLET PO SCH ×2 (01:25→21:16)
[2018-10-24] MEDS: ASCORBIC ACID 500 MG TABLET PO SCH ×3 (01:25→21:15)
[2018-10-24] MEDS: CLOPIDOGREL 75 MG TABLET PO SCH ×2 (01:25→21:15)
[2018-10-24] MEDS: CILOSTAZOL 100 MG TAB PO SCH ×3 (01:25→21:15)
[2018-10-24] MEDS: GABAPENTIN 100 MG CAP PO SCH ×3 (01:26→21:15)
[2018-10-24] MEDS: ACETAMINOPHEN 325 MG TABLET PO SCH ×4 (01:26→21:15)
[2018-10-24] MEDS: PREGABALIN 75 MG CAP PO SCH (11:36)
[2018-10-24] MEDS: SERTRALINE HCL 50 MG TAB PO SCH (11:36)
[2018-10-24] MEDS: ZINC SULFATE 220 MG CAP PO SCH (11:36)
[2018-10-24] MEDS: AMLODIPINE 5 MG TAB PO SCH (11:36)
[2018-10-24] MEDS: ASPIRIN EC 81 MG TAB PO SCH (11:37)
[2018-10-24] MEDS: PANTOPRAZOLE 40MG TABLET PO SCH (11:37)
[2018-10-24] MEDS: MULTIVITAMINS,THERAPEUT 1 TAB PO SCH (11:37)
[2018-10-24] MEDS: SEVELAMER CARBONATE 800 MG TABLET PO SCH ×3 (11:37→17:25)
--- NOTE | 2018-10-24 12:12 | P.PN ---
Subjective Date of Service: 10/24/18 Primary Care Provider: Merna Chief Complaint: hospital aquired pneumonia Subjective: No new changes Review of Systems 10-point ROS is otherwise unremarkable Physical Examination - Vital Signs Temperature: 98.8 F Blood Pressure: 147/71 Pulse: 84 Respirations: 20 Pulse Ox (%): 96 - Physical Exam General: Alert, In no apparent distress HEENT: Atraumatic, PERRLA, EOMI Neck: Supple, JVD not distended Respiratory: Clear to auscultation bilaterally, Normal air movement Cardiovascular: Regular rate/rhythm, Normal S1 S2 Gastrointestinal: Normal bowel sounds, No tenderness Musculoskeletal: No tenderness Integumentary: No rashes Neurological: Normal speech, Normal tone, Normal affect Lymphatics: No axilla or inguinal lymphadenopathy Assessment & Plan - Problems (Diagnosis) (1) Discharge planning issues Current Visit: Yes Status: Acute Plan: Discussed with transition social worker. family is working on medicare paper work. [facility] is submitting the records. Awaiting them to approve (2) Hospital-acquired pneumonia Onset Date: 10/15/18 Current Visit: Yes Status: Acute Plan: will start the patient on cefepime. Continue bipap. Will see if we can wean him off. Will check lower extremity duplex in the am. To see if possible pe (3) ESRD (end stage renal disease) Onset Date: 08/05/18 Current Visit: No Status: Chronic Plan: consult to Dr. Hawkins for dialysis care. He is much more alert after dialysis. Off the bipap, he initially presented with hypoxia and respiratory failure secondary to volume overload (4) Peripheral vascular disease due to secondary diabetes Onset Date: 05/27/18 Current Visit: No Status: Chronic Plan: SP right forefoot amputation. Continue wound vac. Will consult wound care in the morning (5) Diabetes mellitus Onset Date: 09/13/16 Current Visit: No Status: Chronic Plan: Hold meds till the morning will keep a low dose ISS Discharge Plan: Senior Living Plan to discharge in: 24 Hours - Code Status/Comfort Care Code Status Assessed: No Physician Review: Patient Assessed, Agree with Above Assessment and Plan Critical Care: No Time Spent Managing Pts Care (In Minutes): 20
--- NOTE | 2018-10-24 17:05 | PN ---
Date of Progress Note: 10/24/2018 NEPHROLOGY FOLLOWUP Subjective: The patient is doing well. No shortness of breath. The patient is still waiting for pl acement. Physical Examination: Vital Signs: When I saw the patient, blood pressure of 147/71, pulse of 84. Chest: Clear to auscultation. Heart: S1 and S2. Systolic murmur. Abdomen: Soft, nontender. Extremities: Dressing on the right foot TMA. Laboratory Data: H and H of 10.9 and 32.9. Sodium 135, potassium 3.9, bicarb 28, BUN 40, creatinine 4.2, and calcium 8.8. Current Medications: The patient on it includes Levaquin 500 every 48 hours, Pletal, Plavix, Lovenox , amlodipine, citalopram, gabapentin, Zoloft, Lyrica, Renvela, zinc sulfate, breathing treatment and pantoprazole. Assessment And Plan: 1.End-stage renal disease. Normal volume. We will continue dialysis Sunday, Sunday, and Sunday. 2.Secondary hyperparathyroidism, stable. Continue Renvela. 3.Anemia of chronic kidney disease. No need for BEAU. 4.Foot infection, status post debridement. We will follow up with primary. HARISH Voice ID: [id number] Report ID: [id number]
[2018-10-24] MEDS: ENOXAPARIN 30 MG/0.3 ML SQ SCH (17:25)
[2018-10-24] MEDS: INSULIN GLARGINE 100 UNITS/ML SQ SCH (21:16)
[2018-10-25] MEDS ORDERED: IPRATROPIUM BROM 0.5MG/2.5ML NEB PRN (07:37)
[2018-10-25] MEDS ORDERED: ALBUTEROL 2.5 MG/3 ML NEB SOL NEB PRN (07:38)
[2018-10-25] MEDS: ACETAMINOPHEN 325 MG TABLET PO SCH ×3 (09:00→20:41)
[2018-10-25] MEDS: ASPIRIN EC 81 MG TAB PO SCH (09:00)
--- NOTE | 2018-10-25 10:04 | P.PN ---
Subjective Date of Service: 10/25/18 Primary Care Provider: Merna Chief Complaint: hospital aquired pneumonia Subjective: No new changes Pt admitted for SOB and fluid overload improved on HD will cont HD TTSAt BP controlled pending placement Physical Examination - Vital Signs Temperature: 97.1 F Blood Pressure: 163/83 Pulse: 81 Respirations: 20 Pulse Ox (%): 98 - Physical Exam General: Alert, In no apparent distress HEENT: Atraumatic Neck: Supple, Without JVD or thyroid abnormality Respiratory: Clear to auscultation bilaterally Cardiovascular: No edema, Regular rate/rhythm, Normal S1 S2, No rubs, No murmurs Gastrointestinal: Normal bowel sounds, Soft and benign Assessment And Plan - Current Problems (Diagnosis) (1) Coronary arteriosclerosis Onset Date: 08/21/18 Current Visit: No Status: Chronic (2) Diabetes mellitus Onset Date: 09/13/16 Current Visit: No Status: Chronic (3) End stage renal failure on dialysis Onset Date: 09/13/16 Current Visit: No Status: Chronic - Plan Assessment And Plan: End-stage renal disease,on HD TTsat from via Lt AVF HD TTsat renal diet renal dose meds Hypertension, controlled Anemia of chronic kidney disease. Hb >11.0 , BEAU on Hold Metabolic bone disease Cont renvela Dm as per primary Physician Review: Patient Assessed, Agree with Above Assessment and Plan
[2018-10-25] MEDS: SEVELAMER CARBONATE 800 MG TABLET PO SCH ×3 (10:19→18:07)
--- NOTE | 2018-10-25 10:39 | P.PN ---
Subjective Date of Service: 10/25/18 Primary Care Provider: Merna Chief Complaint: hospital aquired pneumonia pt in dialysis Review of Systems 10-point ROS is otherwise unremarkable Physical Examination - Vital Signs Temperature: 97.1 F Blood Pressure: 163/83 Pulse: 81 Respirations: 20 Pulse Ox (%): 98 - Physical Exam General: Alert, In no apparent distress HEENT: Atraumatic, PERRLA, EOMI Neck: Supple, JVD not distended Respiratory: Clear to auscultation bilaterally, Normal air movement Cardiovascular: Regular rate/rhythm, Normal S1 S2 Gastrointestinal: Normal bowel sounds, No tenderness Musculoskeletal: No tenderness Integumentary: No rashes Neurological: Normal speech, Normal tone, Normal affect Lymphatics: No axilla or inguinal lymphadenopathy Assessment & Plan - Problems (Diagnosis) (1) Discharge planning issues Current Visit: Yes Status: Acute Plan: Discussed with social sciences lecturer. family is working on medicare paper work. Ольга is submitting the records. Awaiting them to approve (2) Hospital-acquired pneumonia Onset Date: 10/15/18 Current Visit: Yes Status: Acute Plan: will start the patient on cefepime. Continue bipap. Will see if we can wean him off. Will check lower extremity duplex in the am. To see if possible pe (3) ESRD (end stage renal disease) Onset Date: 08/05/18 Current Visit: No Status: Chronic Plan: consult to Dr. Hawkins for dialysis care. He is much more alert after dialysis. Off the bipap, he initially presented with hypoxia and respiratory failure secondary to volume overload (4) Peripheral vascular disease due to secondary diabetes Onset Date: 05/27/18 Current Visit: No Status: Chronic Plan: SP right forefoot amputation. Continue wound vac. Will consult wound care in the morning (5) Diabetes mellitus Onset Date: 09/13/16 Current Visit: No Status: Chronic Plan: Hold meds till the morning will keep a low dose ISS Discharge Plan: [facility] Plan to discharge in: 24 Hours - Code Status/Comfort Care Code Status Assessed: No Physician Review: Patient Assessed, Agree with Above Assessment and Plan Critical Care: No Time Spent Managing Pts Care (In Minutes): 15
[2018-10-25] MEDS: PANTOPRAZOLE 40MG TABLET PO SCH (13:13)
[2018-10-25] MEDS: GABAPENTIN 100 MG CAP PO SCH ×2 (13:14→20:42)
[2018-10-25] MEDS: PREGABALIN 75 MG CAP PO SCH (13:14)
[2018-10-25] MEDS: AMLODIPINE 5 MG TAB PO SCH (13:15)
[2018-10-25] MEDS: ASCORBIC ACID 500 MG TABLET PO SCH ×2 (13:15→20:43)
[2018-10-25] MEDS: MULTIVITAMINS,THERAPEUT 1 TAB PO SCH (13:15)
[2018-10-25] MEDS: CILOSTAZOL 100 MG TAB PO SCH ×2 (13:16→20:42)
[2018-10-25] MEDS: levoFLOXacin 500 MG TAB PO SCH (13:16)
[2018-10-25] MEDS: SERTRALINE HCL 50 MG TAB PO SCH (13:17)
[2018-10-25] MEDS: ZINC SULFATE 220 MG CAP PO SCH (13:17)
[2018-10-25] MEDS: ENOXAPARIN 30 MG/0.3 ML SQ SCH (18:09)
[2018-10-25] MEDS: INSULIN GLARGINE 100 UNITS/ML SQ SCH (20:41)
[2018-10-25] MEDS: CITALOPRAM 10 MG TABLET PO SCH (20:42)
[2018-10-25] MEDS: CLOPIDOGREL 75 MG TABLET PO SCH (20:42)
[2018-10-26] MEDS: AMLODIPINE 5 MG TAB PO SCH (08:58)
[2018-10-26] MEDS: PREGABALIN 75 MG CAP PO SCH (08:58)
[2018-10-26] MEDS: SEVELAMER CARBONATE 800 MG TABLET PO SCH ×3 (08:59→16:16)
[2018-10-26] MEDS: PANTOPRAZOLE 40MG TABLET PO SCH (08:59)
[2018-10-26] MEDS: ASCORBIC ACID 500 MG TABLET PO SCH ×2 (08:59→20:52)
[2018-10-26] MEDS: CILOSTAZOL 100 MG TAB PO SCH ×2 (09:02→20:51)
[2018-10-26] MEDS: ZINC SULFATE 220 MG CAP PO SCH (09:02)
[2018-10-26] MEDS: ASPIRIN EC 81 MG TAB PO SCH (09:02)
[2018-10-26] MEDS: GABAPENTIN 100 MG CAP PO SCH ×2 (09:02→20:51)
[2018-10-26] MEDS: MULTIVITAMINS,THERAPEUT 1 TAB PO SCH (09:02)
[2018-10-26] MEDS: SERTRALINE HCL 50 MG TAB PO SCH (09:03)
[2018-10-26] MEDS: ACETAMINOPHEN 325 MG TABLET PO SCH ×3 (09:04→20:51)
--- NOTE | 2018-10-26 11:28 | P.PN ---
Subjective Date of Service: 10/26/18 Primary Care Provider: Merna Chief Complaint: hospital aquired pneumonia Review of Systems 10-point ROS is otherwise unremarkable Physical Examination - Vital Signs Temperature: 97.8 F Blood Pressure: 184/76 Pulse: 96 Respirations: 18 Pulse Ox (%): 96 - Physical Exam General: Alert, In no apparent distress HEENT: Atraumatic, PERRLA, EOMI Neck: Supple, JVD not distended Respiratory: Clear to auscultation bilaterally, Normal air movement Cardiovascular: Regular rate/rhythm, Normal S1 S2 Gastrointestinal: Normal bowel sounds, No tenderness Musculoskeletal: No tenderness Integumentary: No rashes Neurological: Normal speech, Normal tone, Normal affect Lymphatics: No axilla or inguinal lymphadenopathy Assessment & Plan - Problems (Diagnosis) (1) Discharge planning issues Current Visit: Yes Status: Acute Plan: Discussed with workers compensation claims adjuster. family is working on medicare paper work. Ольга is submitting the records. Awaiting them to approve (2) Hospital-acquired pneumonia Onset Date: 10/15/18 Current Visit: Yes Status: Acute Plan: will start the patient on cefepime. Continue bipap. Will see if we can wean him off. Will check lower extremity duplex in the am. To see if possible pe (3) ESRD (end stage renal disease) Onset Date: 08/05/18 Current Visit: No Status: Chronic Plan: consult to Dr. Hawkins for dialysis care. He is much more alert after dialysis. Off the bipap, he initially presented with hypoxia and respiratory failure secondary to volume overload (4) Peripheral vascular disease due to secondary diabetes Onset Date: 05/27/18 Current Visit: No Status: Chronic Plan: SP right forefoot amputation. Continue wound vac. Will consult wound care in the morning (5) Diabetes mellitus Onset Date: 09/13/16 Current Visit: No Status: Chronic Plan: Hold meds till the morning will keep a low dose ISS - Code Status/Comfort Care Code Status Assessed: No Physician Review: Patient Assessed, Agree with Above Assessment and Plan Critical Care: No Time Spent Managing Pts Care (In Minutes): 15
--- NOTE | 2018-10-26 15:46 | P.PN ---
Subjective Date of Service: 10/26/18 Primary Care Provider: Merna Chief Complaint: hospital aquired pneumonia Subjective: No new changes Pt admitted for SOB and fluid overload improved on HD will cont HD MWF, tolerated HD yesterday BP is elevated today , will monitor for now and adjust meds as needed pending placement Physical Examination - Vital Signs Temperature: 97.6 F Blood Pressure: 169/83 Pulse: 78 Respirations: 18 Pulse Ox (%): 99 - Physical Exam General: Alert, In no apparent distress HEENT: Atraumatic Neck: Supple, Without JVD or thyroid abnormality Respiratory: Clear to auscultation bilaterally, Normal air movement Cardiovascular: No edema, Regular rate/rhythm, Normal S1 S2 Gastrointestinal: Normal bowel sounds, Soft and benign Assessment And Plan - Current Problems (Diagnosis) (1) Coronary arteriosclerosis Onset Date: 08/21/18 Current Visit: No Status: Chronic (2) Diabetes mellitus Onset Date: 09/13/16 Current Visit: No Status: Chronic (3) End stage renal failure on dialysis Onset Date: 09/13/16 Current Visit: No Status: Chronic - Plan Assessment And Plan: End-stage renal disease,on HD TTsat from via Lt AVF will do MEF while hospitalized renal diet renal dose meds Hypertension, controlled Anemia of chronic kidney disease. No need for BEAU at this time Metabolic bone disease Cont renvela Dm as per primary Physician Review: Patient Assessed, Agree with Above Assessment and Plan
[2018-10-26] MEDS: ENOXAPARIN 30 MG/0.3 ML SQ SCH (16:16)
[2018-10-26] MEDS: CITALOPRAM 10 MG TABLET PO SCH (20:50)
[2018-10-26] MEDS: INSULIN GLARGINE 100 UNITS/ML SQ SCH (20:50)
[2018-10-26] MEDS: CLOPIDOGREL 75 MG TABLET PO SCH (20:51)
[2018-10-27] MEDS: SEVELAMER CARBONATE 800 MG TABLET PO SCH ×3 (08:22→16:10)
[2018-10-27] MEDS: ASPIRIN EC 81 MG TAB PO SCH (08:22)
[2018-10-27] MEDS: MULTIVITAMINS,THERAPEUT 1 TAB PO SCH (08:22)
[2018-10-27] MEDS: ASCORBIC ACID 500 MG TABLET PO SCH ×2 (08:22→20:56)
[2018-10-27] MEDS: CILOSTAZOL 100 MG TAB PO SCH ×2 (08:22→20:56)
[2018-10-27] MEDS: ZINC SULFATE 220 MG CAP PO SCH (08:23)
[2018-10-27] MEDS: AMLODIPINE 5 MG TAB PO SCH (08:23)
[2018-10-27] MEDS: SERTRALINE HCL 50 MG TAB PO SCH (08:23)
[2018-10-27] MEDS: PREGABALIN 75 MG CAP PO SCH (08:23)
[2018-10-27] MEDS: ACETAMINOPHEN 325 MG TABLET PO SCH ×3 (08:23→20:56)
[2018-10-27] MEDS: GABAPENTIN 100 MG CAP PO SCH ×2 (08:23→20:57)
[2018-10-27] MEDS: PANTOPRAZOLE 40MG TABLET PO SCH (08:24)
--- NOTE | 2018-10-27 12:37 | P.PN ---
Subjective Date of Service: 10/27/18 Primary Care Provider: Merna Chief Complaint: hospital aquired pneumonia having lunch Review of Systems 10-point ROS is otherwise unremarkable Physical Examination - Vital Signs Temperature: 97.6 F Blood Pressure: 180/86 Pulse: 85 Respirations: 18 Pulse Ox (%): 97 - Physical Exam General: Alert, In no apparent distress HEENT: Atraumatic, PERRLA, EOMI Neck: Supple, JVD not distended Respiratory: Clear to auscultation bilaterally, Normal air movement Cardiovascular: Regular rate/rhythm, Normal S1 S2 Gastrointestinal: Normal bowel sounds, No tenderness Musculoskeletal: No tenderness Integumentary: No rashes Neurological: Normal speech, Normal tone, Normal affect Lymphatics: No axilla or inguinal lymphadenopathy Assessment & Plan - Problems (Diagnosis) (1) Discharge planning issues Current Visit: Yes Status: Acute Plan: Discussed with adoption social worker. family is working on medicare paper work. Ольга is submitting the records. Awaiting them to approve (2) Hospital-acquired pneumonia Onset Date: 10/15/18 Current Visit: Yes Status: Acute Plan: will start the patient on cefepime. Continue bipap. Will see if we can wean him off. Will check lower extremity duplex in the am. To see if possible pe (3) ESRD (end stage renal disease) Onset Date: 08/05/18 Current Visit: No Status: Chronic Plan: consult to Dr. Hawkins for dialysis care. He is much more alert after dialysis. Off the bipap, he initially presented with hypoxia and respiratory failure secondary to volume overload (4) Peripheral vascular disease due to secondary diabetes Onset Date: 05/27/18 Current Visit: No Status: Chronic Plan: SP right forefoot amputation. Continue wound vac. Will consult wound care in the morning (5) Diabetes mellitus Onset Date: 09/13/16 Current Visit: No Status: Chronic Plan: Hold meds till the morning will keep a low dose ISS Discharge Plan: Home Plan to discharge in: 24 Hours - Code Status/Comfort Care Code Status Assessed: No Physician Review: Patient Assessed, Agree with Above Assessment and Plan Critical Care: No Time Spent Managing Pts Care (In Minutes): 20
[2018-10-27] MEDS: AMLODIPINE 10 MG TAB PO SCH (14:34)
--- NOTE | 2018-10-27 14:55 | P.PN ---
Subjective Date of Service: 10/27/18 Primary Care Provider: Merna Chief Complaint: hospital aquired pneumonia Subjective: No new changes Pt admitted for SOB and fluid overload improved on HD will cont HD MWF, tolerated HD yesterday BP is elevated today , will increase Norvasc will try HD tomorrow with more fluid removal pending placement Physical Examination - Vital Signs Temperature: 97.6 F Blood Pressure: 180/86 Pulse: 85 Respirations: 18 Pulse Ox (%): 97 - Physical Exam General: Alert, In no apparent distress HEENT: Atraumatic Neck: Supple, Without JVD or thyroid abnormality Respiratory: Clear to auscultation bilaterally, Normal air movement Cardiovascular: No edema, Regular rate/rhythm, Normal S1 S2, No gallops, No rubs , No murmurs Gastrointestinal: Normal bowel sounds Assessment And Plan - Current Problems (Diagnosis) (1) Coronary arteriosclerosis Onset Date: 08/21/18 Current Visit: No Status: Chronic (2) Diabetes mellitus Onset Date: 09/13/16 Current Visit: No Status: Chronic (3) End stage renal failure on dialysis Onset Date: 09/13/16 Current Visit: No Status: Chronic - Plan Assessment And Plan: End-stage renal disease,on HD TTsat from via Lt AVF will do MEF while hospitalized renal diet renal dose meds Hypertension, controlled Anemia of chronic kidney disease. No need for BEAU at this time Metabolic bone disease Cont renvela Dm as per primary Physician Review: Patient Assessed, Agree with Above Assessment and Plan
[2018-10-27] MEDS: ENOXAPARIN 30 MG/0.3 ML SQ SCH (16:10)
[2018-10-27] MEDS: INSULIN GLARGINE 100 UNITS/ML SQ SCH (20:55)
[2018-10-27] MEDS: CITALOPRAM 10 MG TABLET PO SCH (20:56)
[2018-10-27] MEDS: CLOPIDOGREL 75 MG TABLET PO SCH (20:57)
[2018-10-28] MEDS: AMLODIPINE 10 MG TAB PO SCH (08:59)
[2018-10-28] MEDS: MULTIVITAMINS,THERAPEUT 1 TAB PO SCH (08:59)
[2018-10-28] MEDS: SEVELAMER CARBONATE 800 MG TABLET PO SCH ×4 (08:59→18:52)
[2018-10-28] MEDS: PANTOPRAZOLE 40MG TABLET PO SCH (08:59)
[2018-10-28] MEDS: ASCORBIC ACID 500 MG TABLET PO SCH ×2 (09:00→20:51)
[2018-10-28] MEDS: ZINC SULFATE 220 MG CAP PO SCH (09:00)
[2018-10-28] MEDS: GABAPENTIN 100 MG CAP PO SCH ×2 (09:00→20:50)
[2018-10-28] MEDS: ACETAMINOPHEN 325 MG TABLET PO SCH ×3 (09:00→20:49)
[2018-10-28] MEDS: PREGABALIN 75 MG CAP PO SCH (09:00)
[2018-10-28] MEDS: ASPIRIN EC 81 MG TAB PO SCH (09:01)
[2018-10-28] MEDS: SERTRALINE HCL 50 MG TAB PO SCH (09:01)
[2018-10-28] MEDS: CILOSTAZOL 100 MG TAB PO SCH ×2 (09:01→20:51)
--- NOTE | 2018-10-28 12:28 | P.PN ---
Subjective Date of Service: 10/28/18 Primary Care Provider: Merna Chief Complaint: hospital aquired pneumonia Subjective: No new changes Review of Systems 10-point ROS is otherwise unremarkable Physical Examination - Vital Signs Temperature: 97.3 F Blood Pressure: 169/81 Pulse: 83 Respirations: 18 Pulse Ox (%): 97 - Physical Exam General: Alert HEENT: Atraumatic, PERRLA, EOMI Neck: Supple, JVD not distended Respiratory: Clear to auscultation bilaterally, Normal air movement Cardiovascular: Regular rate/rhythm, Normal S1 S2 Gastrointestinal: Normal bowel sounds, No tenderness Musculoskeletal: No tenderness Integumentary: No rashes Neurological: Normal speech, Normal tone, Normal affect Lymphatics: No axilla or inguinal lymphadenopathy Assessment & Plan - Problems (Diagnosis) (1) Discharge planning issues Current Visit: Yes Status: Acute Plan: Discussed with social welfare clerk. family is working on medicare paper work. Ольга is submitting the records. Awaiting them to approve (2) Hospital-acquired pneumonia Onset Date: 10/15/18 Current Visit: Yes Status: Acute Plan: will start the patient on cefepime. Continue bipap. Will see if we can wean him off. Will check lower extremity duplex in the am. To see if possible pe (3) ESRD (end stage renal disease) Onset Date: 08/05/18 Current Visit: No Status: Chronic Plan: consult to Dr. Hawkins for dialysis care. He is much more alert after dialysis. Off the bipap, he initially presented with hypoxia and respiratory failure secondary to volume overload (4) Peripheral vascular disease due to secondary diabetes Onset Date: 05/27/18 Current Visit: No Status: Chronic Plan: SP right forefoot amputation. Continue wound vac. Will consult wound care in the morning (5) Diabetes mellitus Onset Date: 09/13/16 Current Visit: No Status: Chronic Plan: Hold meds till the morning will keep a low dose ISS Discharge Plan: [facility] Plan to discharge in: 24 Hours - Code Status/Comfort Care Code Status Assessed: No Physician Review: Patient Assessed, Agree with Above Assessment and Plan Critical Care: No Time Spent Managing Pts Care (In Minutes): 15
[2018-10-28] MEDS: ENOXAPARIN 30 MG/0.3 ML SQ SCH ×2 (17:00→18:50)
[2018-10-28] MEDS: CITALOPRAM 10 MG TABLET PO SCH (20:50)
[2018-10-28] MEDS: CLOPIDOGREL 75 MG TABLET PO SCH (20:50)
[2018-10-28] MEDS: INSULIN GLARGINE 100 UNITS/ML SQ SCH (20:51)
--- NOTE | 2018-10-29 04:07 | PN ---
Date of Progress Note: 10/28/2018 Chief Complaint: End-stage renal disease, fluid overload, deconditioning, shortness of breath. History Of Present Illness: The patient is scheduled to have dialysis with ultrafiltration. Hyperte nsion, blood pressure uncontrolled, elevated. The patient is taking blood pressure medication. Norv asc was increased. Review of Systems: Denies PND or orthopnea. Physical Examination: Lungs: Diminished breath sounds at bases. Crackles present. Heart: S1-S2. Abdomen: Soft, benign. Extremities: Edema in both legs. Impression And Plan: 1.Coronary artery disease. Cardiology consultation was previously obtained. 2.Diabetes mellitus. Continue insulin. 3.End-stage renal disease. Dialysis will be done today with ultrafiltration. Continue renal diet a nd p.o. fluid restriction. 4.Hypertension. Medication adjusted. 5.Metabolic bone disease and renal osteodystrophy. Continue Renvela and low-phosphorus diet. 6.Anemia and chronic kidney disease. Monitor hemoglobin level, adjust BEAU. EB/MODL Voice ID: [id number] Report ID: [id number]
[2018-10-29] MEDS: ACETAMINOPHEN 325 MG TABLET PO SCH ×2 (08:09→13:56)
[2018-10-29] MEDS: SERTRALINE HCL 50 MG TAB PO SCH (08:10)
[2018-10-29] MEDS: PREGABALIN 75 MG CAP PO SCH (08:10)
[2018-10-29] MEDS: ZINC SULFATE 220 MG CAP PO SCH (08:10)
[2018-10-29] MEDS: MULTIVITAMINS,THERAPEUT 1 TAB PO SCH (08:10)
[2018-10-29] MEDS: SEVELAMER CARBONATE 800 MG TABLET PO SCH ×2 (08:10→11:50)
[2018-10-29] MEDS: AMLODIPINE 10 MG TAB PO SCH (08:11)
[2018-10-29] MEDS: PANTOPRAZOLE 40MG TABLET PO SCH (08:11)
[2018-10-29] MEDS: ASPIRIN EC 81 MG TAB PO SCH (08:11)
[2018-10-29] MEDS: GABAPENTIN 100 MG CAP PO SCH (08:11)
[2018-10-29] MEDS: ASCORBIC ACID 500 MG TABLET PO SCH (08:12)
[2018-10-29] MEDS ORDERED: ACETAMINOPHEN 500 MG TAB PO PRN (09:20)
--- NOTE | 2018-10-29 09:22 | P.PN ---
Subjective Date of Service: 10/29/18 Primary Care Provider: Merna Chief Complaint: hospital aquired pneumonia having breakfast Review of Systems 10-point ROS is otherwise unremarkable General: Other (headache) Physical Examination - Vital Signs Temperature: 97.1 F Blood Pressure: 147/71 Pulse: 82 Respirations: 16 Pulse Ox (%): 94 - Physical Exam General: Alert, In no apparent distress HEENT: Atraumatic, PERRLA, EOMI Neck: Supple, JVD not distended Respiratory: Clear to auscultation bilaterally, Normal air movement Cardiovascular: Regular rate/rhythm, Normal S1 S2 Gastrointestinal: Normal bowel sounds, No tenderness Musculoskeletal: No tenderness Integumentary: No rashes Neurological: Normal speech, Normal tone, Normal affect Lymphatics: No axilla or inguinal lymphadenopathy Assessment & Plan - Problems (Diagnosis) (1) Discharge planning issues Current Visit: Yes Status: Acute Plan: Discussed with social services. family is working on medicare paper work. Ольга is submitting the records. Awaiting them to approve (2) Hospital-acquired pneumonia Onset Date: 10/15/18 Current Visit: Yes Status: Acute Plan: will start the patient on cefepime. Continue bipap. Will see if we can wean him off. Will check lower extremity duplex in the am. To see if possible pe (3) ESRD (end stage renal disease) Onset Date: 08/05/18 Current Visit: No Status: Chronic Plan: consult to Dr. Hawkins for dialysis care. He is much more alert after dialysis. Off the bipap, he initially presented with hypoxia and respiratory failure secondary to volume overload (4) Peripheral vascular disease due to secondary diabetes Onset Date: 05/27/18 Current Visit: No Status: Chronic Plan: SP right forefoot amputation. Continue wound vac. Will consult wound care in the morning (5) Diabetes mellitus Onset Date: 09/13/16 Current Visit: No Status: Chronic Plan: Hold meds till the morning will keep a low dose ISS Discharge Plan: Home Plan to discharge in: 24 Hours - Code Status/Comfort Care Code Status Assessed: No Physician Review: Patient Assessed, Agree with Above Assessment and Plan Critical Care: No Time Spent Managing Pts Care (In Minutes): 15
[2018-10-29] MEDS: CILOSTAZOL 100 MG TAB PO SCH (09:26)
--- NOTE | 2018-10-29 11:02 | P.DS ---
Admission Date: 10/14/18 Discharge Date: 10/29/18 Primary Care Provider: Merna Disposition: TRANSFER TO [facility] Discharge Condition: GOOD Reason for Admission: hospital aquired pneumonia - Problems (1) Discharge planning issues Current Visit: Yes Status: Acute (2) Hospital-acquired pneumonia Onset Date: 10/15/18 Current Visit: Yes Status: Acute (3) ESRD (end stage renal disease) Onset Date: 08/05/18 Current Visit: No Status: Chronic (4) Peripheral vascular disease due to secondary diabetes Onset Date: 05/27/18 Current Visit: No Status: Chronic (5) Diabetes mellitus Onset Date: 09/13/16 Current Visit: No Status: Chronic Brief History of Present Illness: 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 Had a history of PVD and ESRD. The patient was sent to [facility] last month. Had been planning for revascularization. Unfortunately that plan failed ant the patient ended up having a right midfoot amputation. He was in a rehab center for the rest of the month. Was disharged less than a week ago. The patient was complainting of fever and chills yesterday. Per the daughter he was very lethargic. Brought to er where he was found to be hypoxic. He was started on a bipap. Unfortuanately he is not able to give a history. Most of this was from the patients daughters. Hospital Course: Patient was admitted to the ICU. He improved after dialysis and 2 lts were removed. He is currently doing much better. Blood cultures are negative. The patient discharge was held due to aps investigation. The family was having difficulty taking care of the patient and getting him to the dialysis center. The patient does have several medical problems. The patient needs dialysis, a wound vac. He is total assist during transfering. He also needs transportation for treatment of his pvd. Will have wound care see him and evaluate. he can follow up with his dialysis and in the wound care center with me. Thank you for allowing me to be a part of his care. Took several days for the paperwork to get him into [facility]. We have this arranged will discharge him today. Vital Signs/Physical Exam: Temp Pulse Resp BP Pulse Ox 97.1 F 82 16 147/71 H 94 10/29/18 09:22 10/29/18 09:22 10/29/18 09:22 10/29/18 09:22 10/29/18 09:22 General: Alert, In no apparent distress HEENT: Atraumatic, PERRLA, EOMI Neck: Supple, JVD not distended Respiratory: Clear to auscultation bilaterally, Normal air movement Cardiovascular: Regular rate/rhythm, Normal S1 S2 Gastrointestinal: Normal bowel sounds, No tenderness Musculoskeletal: No tenderness Integumentary: No rashes Neurological: Normal speech, Normal tone, Normal affect Lymphatics: No axilla or inguinal lymphadenopathy Laboratory Data at Discharge: WBC 5.1 K/uL (4.3-10.9) D 10/21/18 03:53 Hgb 10.9 g/dL (13.6-17.9) L D 10/21/18 03:53 Hct 32.9 % (39.6-49.0) L D 10/21/18 03:53 Plt Count 209 K/uL (152-406) D 10/21/18 03:53 PT 12.9 SECONDS (9.5-12.5) H 10/14/18 09:44 INR 1.09 10/14/18 09:44 APTT 32.5 SECONDS (24.3-36.9) 10/14/18 09:44 Sodium 135 mmol/L (136-145) L 10/21/18 03:53 Potassium 3.9 mmol/L (3.5-5.1) 10/21/18 03:53 BUN 40 mg/dL (7-18) H 10/21/18 03:53 Creatinine 4.24 mg/dL (0.55-1.3) H 10/21/18 03:53 Glucose 126 mg/dL (74-106) H 10/21/18 03:53 Troponin I 0.89 ng/mL (0.0-0.045) H* 10/14/18 20:40 Home Medications: Gabapentin [Neurontin*] 100 mg PO BID 12/31/12 Pravastatin [Pravachol*] 40 mg PO BEDTIME 12/31/12 Citalopram [Celexa*] 10 mg PO BEDTIME 04/15/16 Carbidopa/Levodopa [Carbidopa-Levo 25-100 mg Odt] 1 tab PO BID 09/12/16 Pregabalin [Lyrica] 75 mg PO DAILY 05/25/18 Sertraline HCl 50 mg PO DAILY 90 Days #90 tablet 08/07/18 Cilostazol 100 mg PO BID 08/20/18 Clopidogrel Bisulfate [Plavix] 75 mg PO BEDTIME 08/20/18 Amlodipine [Norvasc] 2.5 mg PO DAILY 10/14/18 Ascorbic Acid [Vitamin C] 500 mg PO BID 10/14/18 Aspirin [Adult Low Dose Aspirin EC] 81 mg PO DAILY 10/14/18 Folic Acid/Vit Bcomp,C [Renal Vitamin Tablet] 0.8 mg PO DAILY 10/14/18 Heparin [Heparin 5,000 units/mL] 5,000 unit SQ Q8H 10/14/18 Insulin Detemir [Levemir] 10 units SQ BEDTIME 10/14/18 Metoprolol Tartrate [Lopressor] 25 mg PO BID 10/14/18 Nepro Shake [Nepro*] 237 ml PO BID 10/14/18 Pantoprazole [Protonix Tab] 40 mg PO BREAKFAST 10/14/18 Sevelamer Carbonate 800 mg PO TID 10/14/18 Zinc Sulfate [Zinc Sulfate*] 220 mg PO DAILY 10/14/18 Diet: Renal Activity: Ad reji Followup: Annelise Estevez MD [ACTIVE - CAN ADMIT] - 1-2 Days Ganesh Bauman MD [Primary Care Provider] - 1-2 Weeks (can follow up in the wound care center) Time spent managing pt's care (in minutes): 30
[2018-10-29 12:12] VITALS: BP 137/65; TEMP 97.3; O2SAT 96
--- NOTE | 2018-10-29 23:04 | PN ---
Date of Progress Note: 10/29/2018 Chief Complaint: End-stage renal disease, fluid overload, deconditioning. The patient underwent dialysis with ultrafiltration, volemia is improving. Review of Systems: Denies fever, chills. Physical Examination: Lungs: Clear to auscultation bilaterally. Heart: S1, S2. Abdomen: Soft, benign, nontender. Extremities: Minimal edema in both legs. Impression And Plan: 1.Coronary artery disease. The patient is asymptomatic. Cardiology consultation was obtained. 2.Diabetes mellitus. Continue insulin. 3.End-stage renal disease. Dialysis with ultrafiltration was done. Continue p.o. fluid restriction . Monitor electrolytes. 4.Hypertension. Blood pressure is improving. Medications were adjusted. 5.Metabolic bone disease and renal osteodystrophy. Continue Renvela and low phosphorus diet. 6.Anemia of chronic kidney disease. The patient will continue BEAU. LEESA/MODL Voice ID: [id number] Report ID: [id number]
== END 2018-10-29 14:15 | DRG 193 ==
LOC: SUPCPDRO 09:32 → ER 09:32 → ERHOLD 12:03 → 3RD-ICU 16:41 → 4TH 10-15 16:10
PROVIDERS: ADMIT Internal Medicine; ATTEND Internal Medicine
PROC: 5A1D70Z Performance of Urinary Filtration, Intermittent, Less than 6 Hours Per Day (ICD-10-PCS; principal; 2018-10-14)
PROC: 5A1D70Z Performance of Urinary Filtration, Intermittent, Less than 6 Hours Per Day (ICD-10-PCS; 2018-10-15)
PROC: 2W1SX6Z Compression of Right Foot using Pressure Dressing (ICD-10-PCS; 2018-10-15)
PROC: 5A1D70Z Performance of Urinary Filtration, Intermittent, Less than 6 Hours Per Day (ICD-10-PCS; 2018-10-16)
PROC: 5A1D70Z Performance of Urinary Filtration, Intermittent, Less than 6 Hours Per Day (ICD-10-PCS; 2018-10-17)
PROC: 5A1D70Z Performance of Urinary Filtration, Intermittent, Less than 6 Hours Per Day (ICD-10-PCS; 2018-10-19)
PROC: 5A1D70Z Performance of Urinary Filtration, Intermittent, Less than 6 Hours Per Day (ICD-10-PCS; 2018-10-21)
PROC: 5A1D70Z Performance of Urinary Filtration, Intermittent, Less than 6 Hours Per Day (ICD-10-PCS; 2018-10-23)
PROC: 5A1D70Z Performance of Urinary Filtration, Intermittent, Less than 6 Hours Per Day (ICD-10-PCS; 2018-10-25)
PROC: 5A1D70Z Performance of Urinary Filtration, Intermittent, Less than 6 Hours Per Day (ICD-10-PCS; 2018-10-28)
DX: J18.9 Pneumonia, unspecified organism (principal); N18.6 End stage renal disease; J96.01 Acute respiratory failure with hypoxia; I12.0 Hypertensive chronic kidney disease with stage 5 chronic kidney disease or end stage renal disease; N25.81 Secondary hyperparathyroidism of renal origin; Z89.431 Acquired absence of right foot; E11.22 Type 2 diabetes mellitus with diabetic chronic kidney disease; Z99.2 Dependence on renal dialysis; Z79.4 Long term (current) use of insulin; E78.5 Hyperlipidemia, unspecified; E11.42 Type 2 diabetes mellitus with diabetic polyneuropathy; B18.2 Chronic viral hepatitis C; Z95.820 Peripheral vascular angioplasty status with implants and grafts; Y95 Nosocomial condition; E11.51 Type 2 diabetes mellitus with diabetic peripheral angiopathy without gangrene; N25.0 Renal osteodystrophy; D63.1 Anemia in chronic kidney disease; I25.10 Atherosclerotic heart disease of native coronary artery without angina pectoris; E87.70 Fluid overload, unspecified; E87.5 Hyperkalemia
CPT/HCPCS: 36415; 71045; 80048; 82962; 83605; 83880; 84145; 84484; 85025; 85610; 85730; 86704; 86706; 86803; 87040; 87070; 87081; 87340; 87522; 87804; 90935; 93005; 93970; 94660; 94760; 96374; 96375; 97163; 97164; 99285; J0456; J0692; J0696; J1644; J1650; P9047

== ENCOUNTER 2019-01-07 19:03 | Emergency (ER) | payer OTHER ==
--- OUTSIDE RECORDS SUMMARY | 2019-01-07 19:08 | XMS REPORT | Clinical Summary ---
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, with long-term current use of insulin (HCC); Ivanna Clay, ESRD (end stage renal disease) ([facility]); Malfunction of arteriovenous dialysis fistula, initial encounter ([facility]); Iliana Cowart MD Benign essential HTN; Ale Kessler Elevated troponin MD Denise Bynum, MD Bill Lynch, MD David 08/22/2018 Travel after 01/06/2018 Family History Medical History Relation Name Comments [...] Taken Blood Pressure 128/58 09/18/2018 1:34 PM [employer] Pulse 69 09/18/2018 1:34 PM [employer] Temperature 36.6 C (97.9 F) 09/18/2018 1:34 PM [employer] Respiratory Rate 18 09/18/2018 1:34 PM [employer] Oxygen Saturation 97% 09/18/2018 1:34 PM [employer] Inhaled Oxygen Concentration 21% 09/15/2018 2:35 PM [employer] Weight 79.6 kg (175 lb 7.8 oz) 09/18/2018 3:00 AM [employer] Height 170.2 cm (5' 7") 08/22/2018 2:00 AM [employer] Body Mass Index 27.49 09/18/2018 3:00 AM [employer] Plan of Treatment Not on file Implants Implanted Type Area Trial Court Judge Device Shelf Model / Identifier Expiration Serial / Date Lot Flseal Vhsd Full Strlprep 10ml [id number] - [id number] Cement/Andrea Right: HANDLEY: BIOSCI 11/20/2019 [id number] / Implanted: Qty: 1 on 08/30/2018 by Geovanni Crabtree MD ler/Adhesi Leg / ve [id number] Mesh Mtrx Wnd Bilyr 10x12.5sq [id number] - [id number] Tissue Right: [employer] 03/09/2020 [id number] / Implanted: Qty: 1 on 09/13/2018 by Aba Millan DPM Graft/Subs Foot / titute [id number] Procedures Procedure Name Priority Date/Time Associated Comments Diagnosis RHYTHM STRIP - SCAN 12/12/2018 1:22 PM CDT CARDIAC CATH REPORT - 10/08/2018 12:41 SCAN PM [employer] RHYTHM STRIP - SCAN 10/08/2018 12:41 PM [employer] POCT-GLUCOSE METER Routine 09/18/2018 1:32 Results for this PM [employer] procedure are in the results section. HEMODIALYSIS Routine 09/18/2018 1:06 Results for this INPATIENT PM [employer] procedure are in the results section. POCT-GLUCOSE METER Routine 09/18/2018 7:36 Results for this AM [employer] procedure are in the results section. CBC W/PLT COUNT & Routine 09/18/2018 3:33 Results for this AUTO DIFFERENTIAL AM [employer] procedure are in the results section. CBC W/PLT COUNT & Routine 09/18/2018 3:33 Results for this AUTO DIFFERENTIAL AM [employer] procedure are in the results section. BASIC METABOLIC PANEL Routine 09/18/2018 3:33 Results for this (7) AM [employer] procedure are in the results section. PHOSPHORUS Routine 09/18/2018 3:33 Results for this AM [employer] procedure are in the results section. MAGNESIUM Routine 09/18/2018 3:33 Results for this AM [employer] procedure are in the results section. POCT-GLUCOSE METER Routine 09/17/2018 9:32 Results for this PM [employer] procedure are in the results section. POCT-GLUCOSE METER Routine 09/17/2018 5:42 Results for this PM [employer] procedure are in the results section. POCT-GLUCOSE METER Routine 09/17/2018 12:37 Results for this PM [employer] procedure are in the results section. POCT-GLUCOSE METER Routine 09/17/2018 8:45 Results for this AM [employer] procedure are in the results section. CBC W/PLT COUNT & Routine 09/17/2018 4:00 Results for this AUTO DIFFERENTIAL AM [employer] procedure are in the results section. PHOSPHORUS Routine 09/17/2018 4:00 Results for this AM [employer] procedure are in the results section. MAGNESIUM Routine 09/17/2018 4:00 Results for this AM [employer] procedure are in the results section. CBC W/PLT COUNT & Routine 09/17/2018 4:00 Results for this AUTO DIFFERENTIAL AM [employer] procedure are in the results section. POCT-GLUCOSE METER Routine 09/16/2018 9:24 Results for this PM [employer] procedure are in the results section. POCT-GLUCOSE METER Routine 09/16/2018 5:38 Results for this PM [employer] procedure are in the results section. HEMODIALYSIS Routine 09/16/2018 1:49 Results for this INPATIENT PM [employer] procedure are in the results section. POCT-GLUCOSE METER Routine 09/16/2018 1:27 Results for this PM [employer] procedure are in the results section. BASIC METABOLIC PANEL Add-On 09/16/2018 9:59 Results for this (7) AM [employer] procedure are in the results section. POCT-GLUCOSE METER Routine 09/16/2018 7:42 Results for this AM [employer] procedure are in the results section. CBC W/PLT COUNT & Routine 09/16/2018 5:26 Results for this AUTO DIFFERENTIAL AM [employer] procedure are in the results section. PHOSPHORUS Routine 09/16/2018 5:26 Results for this AM [employer] procedure are in the results section. MAGNESIUM Routine 09/16/2018 5:26 Results for this AM [employer] procedure are in the results section. CBC W/PLT COUNT & Routine 09/16/2018 5:26 Results for this AUTO DIFFERENTIAL AM [employer] procedure are in the results section. POCT-GLUCOSE METER Routine 09/15/2018 9:15 Results for this PM [employer] procedure are in the results section. POCT-GLUCOSE METER Routine 09/15/2018 5:23 Results for this PM [employer] procedure are in the results section. POCT-GLUCOSE METER Routine 09/15/2018 11:14 Results for this AM [employer] procedure are in the results section. XR FOOT RIGHT 3 VIEW Routine 09/15/2018 8:01 Results for this AM [employer] procedure are in the results section. POCT-GLUCOSE METER Routine 09/15/2018 7:43 Results for this AM [employer] procedure are in the results section. CBC W/PLT COUNT & Routine 09/15/2018 4:35 Results for this AUTO DIFFERENTIAL AM [employer] procedure are in the results section. PHOSPHORUS Routine 09/15/2018 4:35 Results for this AM [employer] procedure are in the results section. MAGNESIUM Routine 09/15/2018 4:35 Results for this AM [employer] procedure are in the results section. CBC W/PLT COUNT & Routine 09/15/2018 4:35 Results for this AUTO DIFFERENTIAL AM [employer] procedure are in the results section. POCT-GLUCOSE METER Routine 09/14/2018 9:25 Results for this PM [employer] procedure are in the results section. TRANSFUSION SERVICE 09/14/2018 5:50 REPORT - SCAN PM [employer] POCT-GLUCOSE METER Routine 09/14/2018 5:14 Results for this PM [employer] procedure are in the results section. POCT-GLUCOSE METER Routine 09/14/2018 1:12 Results for this PM [employer] procedure are in the results section. POCT-GLUCOSE METER Routine 09/14/2018 7:34 Results for this AM [employer] procedure are in the results section. CBC W/PLT COUNT & Routine 09/14/2018 3:21 Results for this AUTO DIFFERENTIAL AM [employer] procedure are in the results section. BASIC METABOLIC PANEL Routine 09/14/2018 3:21 Results for this (7) AM [employer] procedure are in the results section. PHOSPHORUS Routine 09/14/2018 3:21 Results for this AM [employer] procedure are in the results section. MAGNESIUM Routine 09/14/2018 3:21 Results for this AM [employer] procedure are in the results section. CBC W/PLT COUNT & Routine 09/14/2018 3:21 Results for this AUTO DIFFERENTIAL AM [employer] procedure are in the results section. POCT-GLUCOSE METER Routine 09/13/2018 10:27 Results for this PM [employer] procedure are in the results section. POCT-GLUCOSE METER Routine 09/13/2018 7:18 Results for this PM [employer] procedure are in the results section. POCT-GLUCOSE METER Routine 09/13/2018 5:30 Results for this PM [employer] procedure are in the results section. HEMODIALYSIS Routine 09/13/2018 2:17 INPATIENT PM [employer] POCT-GLUCOSE METER Routine 09/13/2018 9:43 Results for this AM [employer] procedure are in the results section. POCT-GLUCOSE METER Routine 09/13/2018 9:01 Results for this AM [employer] procedure are in the results section. TYPE AND SCREEN, STAT 09/13/2018 8:36 Results for this AUTOMATED AM [employer] procedure are in the results section. TISSUE EXAM AP Routine 09/13/2018 8:20 Results for this AM [employer] procedure are in the results section. IMPLANT,GRAFTJACKET 09/13/2018 7:35 Non-healing AM [employer] surgical wound, initial encounter Special Needs (GRAFT JACKET, PULSE LAVAGE, WOUND VAC) AMPUTATION,FOOT 09/13/2018 7:35 AM [employer] Non-healing surgical wound, initial encounter Special Needs (GRAFT JACKET, PULSE LAVAGE, WOUND VAC) DEBRIDEMENT/I&D,WOUND EXTREMITY 09/13/2018 7:35 AM [employer] Non-healing surgical LOWER wound, initial encounter Special Needs (GRAFT JACKET, PULSE LAVAGE, WOUND VAC) CBC W/PLT COUNT & Routine 09/13/2018 4:45 AM Results for this AUTO DIFFERENTIAL [employer] procedure are in the results section. PHOSPHORUS Routine 09/13/2018 4:45 AM Results for this [employer] procedure are in the results section. MAGNESIUM Routine 09/13/2018 4:45 AM Results for this [employer] procedure are in the results section. CBC W/PLT COUNT & Routine 09/13/2018 4:45 AM Results for this AUTO DIFFERENTIAL [employer] procedure are in the results section. BASIC METABOLIC PANEL Routine 09/13/2018 4:45 AM Results for this (7) [employer] procedure are in the results section. POCT-GLUCOSE METER Routine 09/12/2018 8:47 PM Results for this [employer] procedure are in the results section. POCT-GLUCOSE METER Routine 09/12/2018 6:14 PM Results for this [employer] procedure are in the results section. POCT-GLUCOSE METER Routine 09/12/2018 1:13 PM Results for this [employer] procedure are in the results section. POCT-GLUCOSE METER Routine 09/12/2018 9:39 AM Results for this [employer] procedure are in the results section. CBC W/PLT COUNT & Routine 09/12/2018 4:34 AM Results for this AUTO DIFFERENTIAL [employer] procedure are in the results section. PHOSPHORUS Routine 09/12/2018 4:34 AM Results for this [employer] procedure are in the results section. MAGNESIUM Routine 09/12/2018 4:34 AM Results for this [employer] procedure are in the results section. CBC W/PLT COUNT & Routine 09/12/2018 4:34 AM Results for this AUTO DIFFERENTIAL [employer] procedure are in the results section. POCT-GLUCOSE METER Routine 09/11/2018 9:15 PM Results for this [employer] procedure are in the results section. POCT-GLUCOSE METER Routine 09/11/2018 5:49 PM Results for this [employer] procedure are in the results section. POCT-GLUCOSE METER Routine 09/11/2018 1:03 PM Results for this [employer] procedure are in the results section. POCT-GLUCOSE METER Routine 09/11/2018 10:27 AM Results for this [employer] procedure are in the results section. VITAMIN B12 AND Routine 09/11/2018 10:19 AM Results for this FOLATE [employer] procedure are in the results section. HEMODIALYSIS Routine 09/11/2018 9:53 AM Results for this INPATIENT [employer] procedure are in the results section. POCT-GLUCOSE METER Routine 09/11/2018 7:39 AM Results for this [employer] procedure are in the results section. CBC W/PLT COUNT & Routine 09/11/2018 4:51 AM Results for this AUTO DIFFERENTIAL [employer] procedure are in the results section. PHOSPHORUS Routine 09/11/2018 4:51 AM Results for this [employer] procedure are in the results section. MAGNESIUM Routine 09/11/2018 4:51 AM Results for this [employer] procedure are in the results section. CBC W/PLT COUNT & Routine 09/11/2018 4:51 AM Results for this AUTO DIFFERENTIAL [employer] procedure are in the results section. POCT-GLUCOSE METER Routine 09/10/2018 11:08 PM Results for this [employer] procedure are in the results section. POCT-GLUCOSE METER Routine 09/10/2018 5:31 PM Results for this [employer] procedure are in the results section. POCT-GLUCOSE METER Routine 09/10/2018 1:40 PM Results for this [employer] procedure are in the results section. POCT-GLUCOSE METER Routine 09/10/2018 9:47 AM Results for this [employer] procedure are in the results section. CBC W/PLT COUNT & Routine 09/10/2018 4:50 AM Results for this AUTO DIFFERENTIAL [employer] procedure are in the results section. PHOSPHORUS Routine 09/10/2018 4:50 AM Results for this [employer] procedure are in the results section. MAGNESIUM Routine 09/10/2018 4:50 AM Results for this [employer] procedure are in the results section. CBC W/PLT COUNT & Routine 09/10/2018 4:50 AM Results for this AUTO DIFFERENTIAL [employer] procedure are in the results section. POCT-GLUCOSE METER Routine 09/09/2018 9:06 PM Results for this [employer] procedure are in the results section. POCT-GLUCOSE METER Routine 09/09/2018 4:46 PM Results for this [employer] procedure are in the results section. HEMODIALYSIS Routine 09/09/2018 4:12 PM Results for this INPATIENT [employer] procedure are in the results section. POCT-GLUCOSE METER Routine 09/09/2018 1:04 PM Results for this [employer] procedure are in the results section. POCT-GLUCOSE METER Routine 09/09/2018 9:24 AM Results for this [employer] procedure are in the results section. CBC W/PLT COUNT & Routine 09/09/2018 3:56 AM Results for this AUTO DIFFERENTIAL [employer] procedure are in the results section. PHOSPHORUS Routine 09/09/2018 3:56 AM Results for this [employer] procedure are in the results section. MAGNESIUM Routine 09/09/2018 3:56 AM Results for this [employer] procedure are in the results section. CBC W/PLT COUNT & Routine 09/09/2018 3:56 AM Results for this AUTO DIFFERENTIAL [employer] procedure are in the results section. BASIC METABOLIC PANEL Routine 09/09/2018 3:56 AM Results for this (7) [employer] procedure are in the results section. POCT-GLUCOSE METER Routine 09/08/2018 9:44 PM Results for this [employer] procedure are in the results section. TRANSFUSION SERVICE 09/08/2018 6:00 PM REPORT - SCAN [employer] POCT-GLUCOSE METER Routine 09/08/2018 5:06 PM Results for this [employer] procedure are in the results section. POCT-GLUCOSE METER Routine 09/08/2018 1:52 PM Results for this [employer] procedure are in the results section. POCT-GLUCOSE METER Routine 09/08/2018 10:20 AM Results for this [employer] procedure are in the results section. POCT-GLUCOSE METER Routine 09/08/2018 7:58 AM Results for this [employer] procedure are in the results section. CBC W/PLT COUNT & Routine 09/08/2018 3:32 AM Results for this AUTO DIFFERENTIAL [employer] procedure are in the results section. PHOSPHORUS Routine 09/08/2018 3:32 AM Results for this [employer] procedure are in the results section. MAGNESIUM Routine 09/08/2018 3:32 AM Results for this [employer] procedure are in the results section. CBC W/PLT COUNT & Routine 09/08/2018 3:32 AM Results for this AUTO DIFFERENTIAL [employer] procedure are in the results section. PREPARE LEUKO-REDUCED Routine 09/07/2018 11:54 PM Results for this RBC [employer] procedure are in the results section. PREPARE LEUKO-REDUCED Routine 09/07/2018 11:54 PM Results for this RBC [employer] procedure are in the results section. POCT-GLUCOSE METER Routine 09/07/2018 9:32 PM Results for this [employer] procedure are in the results section. TRANSFUSION SERVICE 09/07/2018 6:01 PM REPORT - SCAN [employer] POCT-GLUCOSE METER Routine 09/07/2018 4:46 PM Results for this [employer] procedure are in the results section. POCT-GLUCOSE METER Routine 09/07/2018 12:43 PM Results for this [employer] procedure are in the results section. POCT-GLUCOSE METER Routine 09/07/2018 11:42 AM Results for this [employer] procedure are in the results section. XR FOOT RIGHT 3 VIEW Routine 09/07/2018 10:19 AM Results for this [employer] procedure are in the results section. POCT-GLUCOSE METER Routine 09/07/2018 9:55 AM Results for this [employer] procedure are in the results section. FUNGUS CULTURE + Routine 09/07/2018 9:04 AM Results for this SMEAR [employer] procedure are in the results section. AFB CULTURE + SMEAR Routine 09/07/2018 9:03 AM Results for this [employer] procedure are in the results section. ANAEROBIC CULTURE Routine 09/07/2018 9:03 AM Results for this [employer] procedure are in the results section. SURGICALLY OBTAINED Routine 09/07/2018 9:03 AM Results for this CULTURE + GRAM STAIN [employer] procedure are in the results section. FUNGUS CULTURE + Routine 09/07/2018 8:40 AM Results for this SMEAR [employer] procedure are in the results section. AFB CULTURE + SMEAR Routine 09/07/2018 8:39 AM Results for this [employer] procedure are in the results section. ANAEROBIC CULTURE Routine 09/07/2018 8:39 AM Results for this [employer] procedure are in the results section. SURGICALLY OBTAINED Routine 09/07/2018 8:39 AM Results for this CULTURE + GRAM STAIN [employer] procedure are in the results section. FUNGUS CULTURE + Routine 09/07/2018 8:39 AM Results for this SMEAR [employer] procedure are in the results section. AFB CULTURE + SMEAR Routine 09/07/2018 8:37 AM Results for this [employer] procedure are in the results section. ANAEROBIC CULTURE Routine 09/07/2018 8:37 AM Results for this [employer] procedure are in the results section. SURGICALLY OBTAINED Routine 09/07/2018 8:37 AM Results for this CULTURE + GRAM STAIN [employer] procedure are in the results section. TISSUE EXAM AP Routine 09/07/2018 8:37 AM Results for this [employer] procedure are in the results section. AMPUTATION,FOOT 09/07/2018 8:00 AM Open wound of [employer] right lower extremity, initial encounter Case Notes 2 HOURS Special Needs (GUILLITIN) POCT-GLUCOSE METER Routine 09/07/2018 4:55 AM Results for this [employer] procedure are in the results section. CBC W/PLT COUNT & AUTO Routine 09/07/2018 4:37 AM Results for this DIFFERENTIAL [employer] procedure are in the results section. POTASSIUM Routine 09/07/2018 4:37 AM Results for this [employer] procedure are in the results section. PHOSPHORUS Routine 09/07/2018 4:37 AM Results for this [employer] procedure are in the results section. MAGNESIUM Routine 09/07/2018 4:37 AM Results for this [employer] procedure are in the results section. CBC W/PLT COUNT & AUTO Routine 09/07/2018 4:37 AM Results for this DIFFERENTIAL [employer] procedure are in the results section. POCT-GLUCOSE METER Routine 09/06/2018 8:29 PM Results for this [employer] procedure are in the results section. TRANSFUSION SERVICE 09/06/2018 6:01 PM REPORT - SCAN [employer] TRANSFUSE Routine 09/06/2018 5:16 PM LEUKO-REDUCED RED [employer] BLOOD CELLS POCT-GLUCOSE METER Routine 09/06/2018 3:36 PM Results for this [employer] procedure are in the results section. HEMODIALYSIS INPATIENT Routine 09/06/2018 2:29 PM [employer] TRANSFUSE Routine 09/06/2018 12:13 PM LEUKO-REDUCED RED [employer] BLOOD CELLS POTASSIUM Routine 09/06/2018 9:28 AM Results for this [employer] procedure are in the results section. CBC W/PLT COUNT & AUTO Routine 09/06/2018 4:45 AM Results for this DIFFERENTIAL [employer] procedure are in the results section. PHOSPHORUS Routine 09/06/2018 4:45 AM Results for this [employer] procedure are in the results section. MAGNESIUM Routine 09/06/2018 4:45 AM Results for this [employer] procedure are in the results section. CBC W/PLT COUNT & AUTO Routine 09/06/2018 4:45 AM Results for this DIFFERENTIAL [employer] procedure are in the results section. POCT-GLUCOSE METER Routine 09/05/2018 5:41 PM Results for this [employer] procedure are in the results section. POCT-GLUCOSE METER Routine 09/05/2018 12:53 PM Results for this [employer] procedure are in the results section. TYPE AND SCREEN, Routine 09/05/2018 10:17 AM Results for this AUTOMATED [employer] procedure are in the results section. BLOOD CULTURE Routine 09/05/2018 10:13 AM Results for this [employer] procedure are in the results section. POCT-GLUCOSE METER Routine 09/05/2018 8:17 AM Results for this [employer] procedure are in the results section. BLOOD CULTURE Routine 09/05/2018 6:47 AM Results for this [employer] procedure are in the results section. CBC W/PLT COUNT & AUTO Routine 09/05/2018 4:49 AM Results for this DIFFERENTIAL [employer] procedure are in the results section. PHOSPHORUS Routine 09/05/2018 4:49 AM Results for this [employer] procedure are in the results section. MAGNESIUM Routine 09/05/2018 4:49 AM Results for this [employer] procedure are in the results section. CBC W/PLT COUNT & AUTO Routine 09/05/2018 4:49 AM Results for this DIFFERENTIAL [employer] procedure are in the results section. POCT-GLUCOSE METER Routine 09/04/2018 11:28 PM Results for this [employer] procedure are in the results section. HEMODIALYSIS INPATIENT Routine 09/04/2018 10:10 PM Results for this [employer] procedure are in the results section. PERIPHERAL ANGIOS / 09/04/2018 3:33 PM PAD (peripheral AORTOGRAM [employer] artery disease) (HCC) XR FOOT RIGHT 3 VIEW STAT 09/04/2018 1:28 PM Results for this [employer] procedure are in the results section. POCT-GLUCOSE METER Routine 09/04/2018 12:03 PM Results for this [employer] procedure are in the results section. POCT-GLUCOSE METER Routine 09/04/2018 7:59 AM Results for this [employer] procedure are in the results section. CBC W/PLT COUNT & AUTO Routine 09/04/2018 3:50 AM Results for this DIFFERENTIAL [employer] procedure are in the results section. BASIC METABOLIC PANEL Routine 09/04/2018 3:50 AM Results for this (7) [employer] procedure are in the results section. PHOSPHORUS Routine 09/04/2018 3:50 AM Results for this [employer] procedure are in the results section. MAGNESIUM Routine 09/04/2018 3:50 AM Results for this [employer] procedure are in the results section. CBC W/PLT COUNT & AUTO Routine 09/04/2018 3:50 AM Results for this DIFFERENTIAL [employer] procedure are in the results section. ARTERIAL DOPPLER ARM, Routine 09/03/2018 9:40 PM Results for this LEFT [employer] procedure are in the results section. VENOUS DOPPLER ARM, Routine 09/03/2018 9:26 PM Results for this LEFT [employer] procedure are in the results section. POCT-GLUCOSE METER Routine 09/03/2018 8:30 PM Results for this [employer] procedure are in the results section. POCT-GLUCOSE METER Routine 09/03/2018 6:03 PM Results for this [employer] procedure are in the results section. POCT-GLUCOSE METER Routine 09/03/2018 12:48 PM Results for this [employer] procedure are in the results section. RESPIRATORY PANEL [facility] Routine 09/03/2018 12:32 PM Results for this [employer] procedure are in the results section. POCT-GLUCOSE METER Routine 09/03/2018 7:52 AM Results for this [employer] procedure are in the results section. CBC W/PLT COUNT & AUTO Routine 09/03/2018 3:57 AM Results for this DIFFERENTIAL [employer] procedure are in the results section. BASIC METABOLIC PANEL Routine 09/03/2018 3:57 AM Results for this (7) [employer] procedure are in the results section. PHOSPHORUS Routine 09/03/2018 3:57 AM Results for this [employer] procedure are in the results section. MAGNESIUM Routine 09/03/2018 3:57 AM Results for this [employer] procedure are in the results section. CBC W/PLT COUNT & AUTO Routine 09/03/2018 3:57 AM Results for this DIFFERENTIAL [employer] procedure are in the results section. POCT-GLUCOSE METER Routine 09/02/2018 8:46 PM Results for this [employer] procedure are in the results section. POCT-GLUCOSE METER Routine 09/02/2018 5:25 PM Results for this [employer] procedure are in the results section. HEMODIALYSIS INPATIENT Routine 09/02/2018 3:33 PM Results for this [employer] procedure are in the results section. POCT-GLUCOSE METER Routine 09/02/2018 1:25 PM Results for this [employer] procedure are in the results section. POCT-GLUCOSE METER Routine 09/02/2018 7:59 AM Results for this [employer] procedure are in the results section. CBC W/PLT COUNT & AUTO Routine 09/02/2018 3:21 AM Results for this DIFFERENTIAL [employer] procedure are in the results section. PHOSPHORUS Routine 09/02/2018 3:21 AM Results for this [employer] procedure are in the results section. MAGNESIUM Routine 09/02/2018 3:21 AM Results for this [employer] procedure are in the results section. CBC W/PLT COUNT & AUTO Routine 09/02/2018 3:21 AM Results for this DIFFERENTIAL [employer] procedure are in the results section. BASIC METABOLIC PANEL Routine 09/02/2018 3:21 AM Results for this (7) [employer] procedure are in the results section. FERRITIN Routine 09/02/2018 3:21 AM Results for this [employer] procedure are in the results section. IRON, TIBC, % SAT. Routine 09/02/2018 3:21 AM Results for this (WITHOUT FERRITIN) [employer] procedure are in the results section. POCT-GLUCOSE METER Routine 09/01/2018 9:02 PM Results for this [employer] procedure are in the results section. POCT-GLUCOSE METER Routine 09/01/2018 5:31 PM Results for this [employer] procedure are in the results section. POCT-GLUCOSE METER Routine 09/01/2018 1:04 PM Results for this [employer] procedure are in the results section. POCT-GLUCOSE METER Routine 09/01/2018 9:46 AM Results for this [employer] procedure are in the results section. POCT-GLUCOSE METER Routine 09/01/2018 6:30 AM Results for this [employer] procedure are in the results section. CBC W/PLT COUNT & AUTO Routine 09/01/2018 5:02 AM Results for this DIFFERENTIAL [employer] procedure are in the results section. PHOSPHORUS Routine 09/01/2018 5:02 AM Results for this [employer] procedure are in the results section. MAGNESIUM Routine 09/01/2018 5:02 AM Results for this [employer] procedure are in the results section. CBC W/PLT COUNT & AUTO Routine 09/01/2018 5:02 AM Results for this DIFFERENTIAL [employer] procedure are in the results section. BASIC METABOLIC PANEL Routine 09/01/2018 5:02 AM Results for this (7) [employer] procedure are in the results section. TRANSFUSION SERVICE 08/31/2018 6:01 PM REPORT - SCAN [employer] POCT-GLUCOSE METER Routine 08/31/2018 5:03 PM Results for this [employer] procedure are in the results section. POCT-GLUCOSE METER Routine 08/31/2018 12:38 PM Results for this [employer] procedure are in the results section. POCT-GLUCOSE METER Routine 08/31/2018 7:49 AM Results for this [employer] procedure are in the results section. CBC W/PLT COUNT & AUTO Routine 08/31/2018 4:05 AM Results for this DIFFERENTIAL [employer] procedure are in the results section. PHOSPHORUS Routine 08/31/2018 4:05 AM Results for this [employer] procedure are in the results section. MAGNESIUM Routine 08/31/2018 4:05 AM Results for this [employer] procedure are in the results section. CBC W/PLT COUNT & AUTO Routine 08/31/2018 4:05 AM Results for this DIFFERENTIAL [employer] procedure are in the results section. BASIC METABOLIC PANEL Routine 08/31/2018 4:05 AM Results for this (7) [employer] procedure are in the results section. TROPONIN I Routine 08/31/2018 4:05 AM Results for this [employer] procedure are in the results section. TROPONIN I Routine 08/30/2018 11:11 PM Results for this [employer] procedure are in the results section. POCT-GLUCOSE METER Routine 08/30/2018 9:09 PM Results for this [employer] procedure are in the results section. HEMODIALYSIS INPATIENT Routine 08/30/2018 9:06 PM [employer] TROPONIN I Routine 08/30/2018 6:27 PM Results for this [employer] procedure are in the results section. POCT-GLUCOSE METER Routine 08/30/2018 6:26 PM Results for this [employer] procedure are in the results section. ECG 12-LEAD Routine 08/30/2018 5:10 PM Results for this [employer] procedure are in the results section. PHOSPHORUS STAT 08/30/2018 4:33 PM Results for this [employer] procedure are in the results section. TROPONIN I STAT 08/30/2018 4:33 PM Results for this [employer] procedure are in the results section. MAGNESIUM STAT 08/30/2018 4:33 PM Results for this [employer] procedure are in the results section. BASIC METABOLIC PANEL STAT 08/30/2018 4:33 PM Results for this (7) [employer] procedure are in the results section. CBC W/PLT COUNT & AUTO Routine 08/30/2018 12:27 PM Results for this DIFFERENTIAL [employer] procedure are in the results section. BASIC METABOLIC PANEL Routine 08/30/2018 12:27 PM Results for this (7) [employer] procedure are in the results section. CBC W/PLT COUNT & AUTO Routine 08/30/2018 12:27 PM Results for this DIFFERENTIAL [employer] procedure are in the results section. POCT-ACT Routine 08/30/2018 11:27 AM Results for this [employer] procedure are in the results section. HGB/HCT (H&H) - STAT Routine 08/30/2018 11:26 AM Results for this LAB [employer] procedure are in the results section. GLUCOSE-STAT LAB Routine 08/30/2018 11:26 AM Results for this [employer] procedure are in the results section. POTASSIUM-STAT LAB Routine 08/30/2018 11:26 AM Results for this [employer] procedure are in the results section. SODIUM NA-STAT LAB Routine 08/30/2018 11:26 AM Results for this [employer] procedure are in the results section. BLOOD GAS, ARTERIAL Routine 08/30/2018 11:26 AM Results for this [employer] procedure are in the results section. RRL CRITICAL LABS Routine 08/30/2018 11:26 AM Results for this (ABG,NA,K,H&H,GLUCOSE) [employer] procedure are in the results section. POCT-ACT Routine 08/30/2018 10:41 AM Results for this [employer] procedure are in the results section. POCT-ACT Routine 08/30/2018 10:16 AM Results for this [employer] procedure are in the results section. REVASCULARIZATION,DIST 08/30/2018 7:30 AM PAD (peripheral AL AND INTERVAL [employer] artery disease) LIGATION (DRIL) (HCC) Case Notes RIGHT LEG DISTAL VEIN ARTERIALIZATION4 HRS PER CRESENCIO POCT-GLUCOSE METER Routine 08/30/2018 5:59 AM [employer] CBC W/PLT COUNT & AUTO Routine 08/30/2018 2:50 AM [employer] Results for this DIFFERENTIAL procedure are in the results section. CBC W/PLT COUNT & AUTO STAT 08/30/2018 2:50 AM [employer] Results for this DIFFERENTIAL procedure are in the results section. TYPE AND SCREEN, AUTOMATED Routine 08/30/2018 2:50 AM [employer] PHOSPHORUS Routine 08/30/2018 2:50 AM [employer] MAGNESIUM Routine 08/30/2018 2:50 AM [employer] CBC W/PLT COUNT & AUTO Routine 08/30/2018 2:50 AM [employer] Results for this DIFFERENTIAL procedure are in the results section. CALCIUM, IONIZED Routine 08/30/2018 2:50 AM [employer] BASIC METABOLIC PANEL (7) Routine 08/30/2018 2:50 AM [employer] PROTHROMBIN TIME/INR Routine 08/30/2018 2:50 AM [employer] BASIC METABOLIC PANEL (7) STAT 08/30/2018 2:50 AM [employer] CBC W/PLT COUNT & AUTO STAT 08/30/2018 2:50 AM [employer] Results for this DIFFERENTIAL procedure are in the results section. POCT-GLUCOSE METER Routine 08/30/2018 12:02 AM [employer] POCT-GLUCOSE METER Routine 08/29/2018 5:21 PM [employer] POCT-GLUCOSE METER Routine 08/29/2018 1:18 PM [employer] POCT-GLUCOSE METER Routine 08/29/2018 9:30 AM [employer] BASIC METABOLIC PANEL (7) Routine 08/29/2018 4:23 AM [employer] POCT-GLUCOSE METER Routine 08/28/2018 9:27 PM [employer] POCT-GLUCOSE METER Routine 08/28/2018 5:55 PM [employer] POCT-GLUCOSE METER Routine 08/28/2018 12:49 PM [employer] HEMODIALYSIS INPATIENT Routine 08/28/2018 12:40 PM [employer] POCT-GLUCOSE METER Routine 08/28/2018 9:47 AM [employer] MAGNESIUM Routine 08/28/2018 3:57 AM [employer] BASIC METABOLIC PANEL (7) Routine 08/28/2018 3:57 AM [employer] POCT-GLUCOSE METER Routine 08/27/2018 9:13 PM [employer] POCT-GLUCOSE METER Routine 08/27/2018 5:53 PM [employer] POCT-GLUCOSE METER Routine 08/27/2018 11:52 AM [employer] POCT-GLUCOSE METER Routine 08/27/2018 7:36 AM [employer] CBC W/PLT COUNT & AUTO Routine 08/27/2018 4:30 AM [employer] Results for this DIFFERENTIAL procedure are in the results section. PHOSPHORUS Routine 08/27/2018 4:30 AM [employer] MAGNESIUM Routine 08/27/2018 4:30 AM [employer] CBC W/PLT COUNT & AUTO Routine 08/27/2018 4:30 AM [employer] Results for this DIFFERENTIAL procedure are in the results section. BASIC METABOLIC PANEL (7) Routine 08/27/2018 4:30 AM [employer] POCT-GLUCOSE METER Routine 08/26/2018 9:12 PM [employer] POCT-GLUCOSE METER Routine 08/26/2018 5:09 PM [employer] POCT-GLUCOSE METER Routine 08/26/2018 12:37 PM [employer] HEMODIALYSIS INPATIENT Routine 08/26/2018 12:31 PM [employer] CBC W/PLT COUNT & AUTO Routine 08/26/2018 6:07 AM [employer] Results for this DIFFERENTIAL procedure are in the results section. COMPREHENSIVE METABOLIC Routine 08/26/2018 6:07 AM [employer] Results for this PANEL procedure are in the results section. CALCIUM, IONIZED Routine 08/26/2018 6:07 AM [employer] PHOSPHORUS Routine 08/26/2018 6:07 AM [employer] MAGNESIUM Routine 08/26/2018 6:07 AM [employer] CBC W/PLT COUNT & AUTO Routine 08/26/2018 6:07 AM [employer] Results for this DIFFERENTIAL procedure are in the results section. POCT-GLUCOSE METER Routine 08/25/2018 8:52 PM [employer] POCT-GLUCOSE METER Routine 08/25/2018 5:08 PM [employer] POCT-GLUCOSE METER Routine 08/25/2018 12:55 PM [employer] POCT-GLUCOSE METER Routine 08/25/2018 9:33 AM [employer] CBC W/PLT COUNT & AUTO Routine 08/25/2018 4:37 AM [employer] Results for this DIFFERENTIAL procedure are in the results section. PHOSPHORUS Routine 08/25/2018 4:37 AM [employer] MAGNESIUM Routine 08/25/2018 4:37 AM [employer] CBC W/PLT COUNT & AUTO Routine 08/25/2018 4:37 AM [employer] Results for this DIFFERENTIAL procedure are in the results section. BASIC METABOLIC PANEL (7) Routine 08/25/2018 4:37 AM [employer] POCT-GLUCOSE METER Routine 08/25/2018 4:30 AM [employer] POCT-GLUCOSE METER Routine 08/24/2018 9:19 PM [employer] POCT-GLUCOSE METER Routine 08/24/2018 5:23 PM [employer] VEIN MAPPING LEG RIGHT Routine 08/24/2018 4:08 PM [employer] ARTERIAL DOPPLER LEG, RIGHT Routine 08/24/2018 4:08 PM [employer] POCT-GLUCOSE METER Routine 08/24/2018 2:04 PM [employer] POCT-GLUCOSE METER Routine 08/24/2018 11:54 AM [employer] POCT-GLUCOSE METER Routine 08/24/2018 9:07 AM [employer] POCT-GLUCOSE METER Routine 08/24/2018 8:18 AM [employer] POCT-GLUCOSE METER Routine 08/24/2018 7:32 AM [employer] CBC W/PLT COUNT & AUTO Routine 08/24/2018 3:55 AM [employer] Results for this DIFFERENTIAL procedure are in the results section. RETICULOCYTE COUNT Routine 08/24/2018 3:55 AM [employer] FERRITIN Routine 08/24/2018 3:55 AM [employer] IRON, TIBC, % SAT. (WITHOUT Routine 08/24/2018 3:55 AM [employer] Results for this FERRITIN) procedure are in the results section. PHOSPHORUS Routine 08/24/2018 3:55 AM [employer] CBC W/PLT COUNT & AUTO Routine 08/24/2018 3:55 AM [employer] Results for this DIFFERENTIAL procedure are in the results section. MAGNESIUM Routine 08/24/2018 3:55 AM [employer] BASIC METABOLIC PANEL (7) Routine 08/24/2018 3:55 AM [employer] POCT-GLUCOSE METER Routine 08/23/2018 9:01 PM [employer] POCT-GLUCOSE METER Routine 08/23/2018 5:31 PM [employer] POCT-GLUCOSE METER Routine 08/23/2018 12:07 PM [employer] HEMODIALYSIS INPATIENT Routine 08/23/2018 11:33 AM [employer] POCT-GLUCOSE METER Routine 08/23/2018 11:29 AM [employer] POCT-GLUCOSE METER Routine 08/23/2018 7:39 AM [employer] CBC W/PLT COUNT & AUTO Routine 08/23/2018 4:48 AM [employer] Results for this DIFFERENTIAL procedure are in the results section. COMPREHENSIVE METABOLIC Routine 08/23/2018 4:48 AM [employer] Results for this PANEL procedure are in the results section. PHOSPHORUS Routine 08/23/2018 4:48 AM [employer] CBC W/PLT COUNT & AUTO Routine 08/23/2018 4:48 AM [employer] Results for this DIFFERENTIAL procedure are in the results section. MAGNESIUM Routine 08/23/2018 4:48 AM [employer] POCT-GLUCOSE METER Routine 08/22/2018 8:56 PM [employer] XR CHEST 1 VIEW Routine 08/22/2018 6:40 PM [employer] Results for this PORTABLE/BEDSIDE procedure are in the results section. PHOSPHORUS Routine 08/22/2018 6:20 PM [employer] POCT-GLUCOSE METER Routine 08/22/2018 5:50 PM [employer] HEPATITIS B SURFACE ANTIGEN Routine 08/22/2018 12:50 PM [employer] POCT-GLUCOSE METER Routine 08/22/2018 10:32 AM [employer] POCT-GLUCOSE METER Routine 08/22/2018 7:04 AM [employer] POCT-GLUCOSE METER Routine 08/22/2018 6:35 AM [employer] CBC W/PLT COUNT & AUTO Routine 08/22/2018 3:38 AM [employer] Results for this DIFFERENTIAL procedure are in the results section. PT/APTT Routine 08/22/2018 3:38 AM [employer] CBC W/PLT COUNT & AUTO Routine 08/22/2018 3:38 AM [employer] Results for this DIFFERENTIAL procedure are in the results section. MAGNESIUM Routine 08/22/2018 3:38 AM [employer] BASIC METABOLIC PANEL (7) Routine 08/22/2018 3:38 AM [employer] after 01/06/2018 Results RHYTHM STRIP - SCAN (12/12/2018 1:22 PM CDT)Only the most recent of2 resultswithin the time period is included. Narrative Performed At CARDIAC CATH REPORT - SCAN (10/08/2018 12:41 PM [employer]) Narrative Performed At POC-Glucose meter (09/18/2018 1:32 PM [employer])Only the most recent of115 resultswithin the time period is included. POC-Glucose Meter 148 (H)Comment: TESTED AT 70 - 110 mg/dL [place] [id number] [facility] [id number] Specimen Blood Performing Organization Address City/State/Zipcode Phone Number [address] [phone] CENTER HEMODIALYSIS INPATIENT (09/18/2018 1:06 PM [employer]) Narrative Performed At Elan Valdez RN 09/18/20181:07 [...] count + automated diff (09/18/2018 3:33 AM [employer])Only the most recent of28 resultswithin the time period is included. WBC 7.8 3.5 - 10.5 K/L [facility] RBC 2.72 (L) 4.63 - 6.08 M/L [facility] Hemoglobin 8.9 (L) 13.7 - 17.5 GM/DL [facility] Hematocrit 27.9 (L) 40.1 - 51.0 % [facility] MCV 102.6 (H) 79.0 - 92.2 fL [facility] MCH 32.7 (H) 25.7 - 32.2 pg [facility] MCHC 31.9 (L) 32.3 - 36.5 GM/DL [facility] RDW 17.2 (H) 11.6 - 14.4 % [facility] Platelets 244 150 - 450 K/CU MM [facility] MPV 11.2 9.4 - 12.4 fL [facility] nRBC 0 0 - 0 /100 WBC [facility] % Neutros 62 % [facility] % Lymphs 19 % [facility] % Monos 10 % [facility] % Eos 7 % [facility] % Baso 1 % [facility] # Neutros 4.83 1.78 - 5.38 K/L [facility] # Lymphs 1.49 1.32 - 3.57 K/L [facility] # Monos 0.80 0.30 - 0.82 K/L [facility] # Eos 0.51 0.04 - 0.54 K/L [facility] # Baso 0.05 0.01 - 0.08 K/L [facility] Immature 1 0 - 1 % [facility] Specimen Blood Performing Organization Address City/State/Zipcode Phone Number [address] [address] [phone] CENTER Phosphorus (09/18/2018 3:33 AM [employer])Only the most recent of27 resultswithin the time period is included. Phosphorus 3.2 2.3 - 4.7 mg/dL [facility] Specimen Blood Performing Organization Address City/[facility]/Zipcode Phone Number [address] [address] CENTER Magnesium (09/18/2018 3:33 AM [employer])Only the most recent of28 resultswithin the time period is included. Magnesium 2.1 1.6 - 2.6 mg/dL [facility] Specimen Blood Performing Organization Address City/[facility]/Zipcode Phone Number [address] [address] [place] Basic Metabolic Panel (09/18/2018 3:33 AM [employer])Only the most recent of20 resultswithin the time period is included. Sodium 136 136 - 145 meq/L [facility] Potassium 4.3 3.5 - 5.1 meq/L [facility] Chloride 97 (L) 98 - 107 meq/L [facility] CO2 27 22 - 29 meq/L [facility] BUN 43 (H) 7 - 21 mg/dL [facility] Creatinine 5.04 (H) 0.57 - 1.25 mg/dL [facility] Glucose 94 70 - 105 mg/dL [facility] Calcium 8.7 8.4 - 10.2 mg/dL [facility] EGFR 11Comment: ESTIMATED GFR IS mL/min/1.73 sq m [facility] NOT ACCURATE CREATININE [facility] CLEARANCE IN PREDICTING GLOMERULAR FILTRATION RATE. ESTIMATED GFR IS NOT APPLICABLE FOR DIALYSIS PATIENTS. Specimen Blood Performing Organization Address City/State/Zipcode Phone Number [facility] [address] [place] [address] CENTER HEMODIALYSIS INPATIENT (09/16/2018 1:49 PM [employer]) Narrative Performed At Skinny Montero RN 09/16/20181:50 [...] foot 3 views right (09/15/2018 8:01 AM [employer])Only the most recent of3 resultswithin the time period is included. Specimen Narrative Performed At FINAL REPORT [facility] RIGHT FOOT 3 VIEWS HISTORY: Status post [...] MD Report Verified Date/Time:09/15/2018 08:28:29 Reading Location: [address] Transitional Reading Room Procedure Note Interface, External Ris In - 09/15/2018 8:30 AM [employer] FINAL REPORT RIGHT FOOT 3 VIEWS HISTORY: [...] Report Verified Date/Time: 09/15/2018 08:28:29 Reading Location: [address] Transitional Reading Room Performing Organization Address City/State/Zipcode Phone Number [facility] TRANSFUSION SERVICE REPORT - SCAN (09/14/2018 5:50 PM [employer])Only the most recent of5 resultswithin the time period is included. Narrative Performed At Type and screen, automated (09/13/2018 8:36 AM [employer])Only the most recent of3 resultswithin the time period is included. ABO/RH AUTOMATED (BEAKER) O POSITIVE [facility] Ab Scrn NEGATIVE [facility] Specimen Blood Performing Organization Address City/State/Zipcode Phone Number [facility] [address] [place] [address] Tissue Exam (09/13/2018 8:20 AM [employer])Only the most recent of2 resultswithin the time period is included. Case Report Surgical Pathology Report Case: [id number] [facility] Authorizing Provider:Aba Millan DPMCollected: 09/13/2018 0820 [facility] Ordering Location: [facility] PERIOPERATIVE Received: 09/13/2018 0926 SERVICES Pathologist: Carrol Trammell MD Specimen:Metatarsal, Right DIAGNOSIS BONE, RIGHT FOOT , METATARSAL, DEBRIDEMENT: [facility] - GANGRENOUS NECROSIS [facility] - OSTEOMYELITIS - NEGATIVE FOR MALIGNANCY Signing Pathologist Direct Phone Line: [phone] CPT Code(s) 01870 [facility] [id number] [facility] CLINICAL HISTORY Nonhealing surgical wound [facility] SPECIMEN SOURCE Right metatarsal. [facility] GROSS DESCRIPTION Specimen is received in [facility] formalin-filled container [facility] labeled with the patient's information and labeled "right metatarsal" and consists of multiple fragments of ch hemorrhagic bone and soft tissue measuring 2.5 x 2 x 1 cm in aggregate. Specimen is sectioned and submitted entirely A1-A4 for decalcification. CG/bc MICROSCOPIC DESCRIPTION Performed. [facility] Specimen Tissue - Metatarsal, Right Performing Organization Address City/[facility]/Zipcode Phone Number [facility] [address] [place] [address] [place] Vitamin B12 and Folate (09/11/2018 10:19 AM [employer]) Vitamin B12 1,098 (H) 213 - 816 pg/mL [facility] Folate 12.9 >=7.0 ng/mL [facility] Specimen Blood Performing Organization Address City/State/Zipcode Phone Number [facility] [address] [place] [address] [place] HEMODIALYSIS INPATIENT (09/11/2018 9:53 AM VENEER JOINTER RETURNER) Narrative Performed At Lana Bales RN 09/11/2018 [...] Bales RN HEMODIALYSIS INPATIENT (09/09/2018 4:12 PM VENEER JOINTER RETURNER) Narrative Performed At Lana Bales RN 09/09/20186:56 [...] RN Prepare Leuko-Red RBC (09/07/2018 11:54 PM VENEER JOINTER RETURNER)Only the most recent of2 resultswithin the time period is included. CROSSMATCH COMPATIBLE SAFETRACE TX Unit ABO O Pos SAFETRACE TX UNIT NUMBER [id number] SAFETRACE TX Status READY SAFETRACE TX Blood Bank Product RED BLOOD CELLS SAFETRACE TX PRODUCT CODE [id number] SAFETRACE TX CROSSMATCH COMPATIBLE SAFETRACE TX Unit ABO O Pos SAFETRACE TX UNIT NUMBER [id number] SAFETRACE TX Status TRANSFUSED SAFETRACE TX Blood Bank Product RED BLOOD CELLS SAFETRACE TX PRODUCT CODE [id number] SAFETRACE TX Specimen Other Performing Organization Address City/[facility] Phone Number SAFETRACE [place] Fungus culture + smear (09/07/2018 9:04 AM VENEER JOINTER RETURNER)Only the most recent of3 resultswithin the time period is included. Result No fungus isolated in 28 days [facility] Fungus Smear No fungi seen [facility] Specimen Tissue Performing Organization Address [facility] Phone Number [address] [address] CENTER AFB culture + smear (09/07/2018 9:03 AM VENEER JOINTER RETURNER)Only the most recent of3 resultswithin the time period is included. Result No acid-fast bacilli isolated in [facility] 42 days CENTER [employer] Smear No acid fast bacilli seen [facility] Specimen Tissue Performing Organization Address [facility] Phone Number [address] [address] [phone] [place] Anaerobic culture (09/07/2018 9:03 AM VENEER JOINTER RETURNER)Only the most recent of3 resultswithin the time period is included. Result <1+ Same organism has been isolated from culture(s) of the same body site and collection date. Repeat identification performed only after consultation with the clinical microbiology laboratory. (A) [facility] Comment: MEDICAL CENTER Refer to previous culture of Bacteroides species, not fragilis Specimen Tissue Performing Organization Address [facility] Phone Number [address] [address] CENTER Surgically obtained culture + gram stain (09/07/2018 9:03 AM VENEER JOINTER RETURNER)Only the most recent of3 resultswithin the time period is included. Result No growth [facility] Gram Stain Result <1+ WBCs [facility] Gram Stain Result No organisms seen [facility] Specimen Tissue Performing Organization Address City/[facility]/Zipcode Phone Number [address] [address] [phone] [place] Potassium (09/07/2018 4:37 AM VENEER JOINTER RETURNER)Only the most recent of2 resultswithin the time period is included. Potassium 4.1 3.5 - 5.1 meq/L [facility] Specimen Blood Performing Organization Address City/[facility]/Zipcode Phone Number [address] [address] [phone] [place] Transfuse Leuko-Red RBC (09/06/2018 5:16 PM VENEER JOINTER RETURNER)Only the most recent of3 resultswithin the time period is included.Blood culture (09/05/2018 10:13 AM VENEER JOINTER RETURNER )Only the most recent of2 resultswithin the time period is included. Result No growth in 5 days [facility] Specimen Blood Performing Organization Address City/[facility]/Zipcode Phone Number [address] [address] [phone] [place] HEMODIALYSIS INPATIENT (09/04/2018 10:10 PM VENEER JOINTER RETURNER) Narrative Performed At Josselin Sapp RN 09/04/2018 [...] Arterial doppler arm, left (09/03/2018 9:40 PM VENEER JOINTER RETURNER) Ejection [facility] Specimen Impressions Performed At [facility] Left Impression 1. The subclavian, axillary and [...] At LAB - Upper Extremities Arterial Duplex [facility] Demographics Patient Name NADIR MENDEZ Date of Study09/03/2018 ANAYA [id number] [id number] Visit Number [id number] Male Accession Number [id number] of Birth1945 [facility] Arnold Khan [id number] Physician SonographerHeamarivel MartinezInterpreting Silvia Salamanca RVT PhysicianMD Procedure Type of Study: Extremities [...] External Ris In - 09/04/2018 8:06 AM VENEER JOINTER RETURNER PV LAB - Upper Extremities Arterial Duplex Demographics Patient Name NADIR MENDEZ Date of Study 09/03/2018 ANAYA Age 73 Visit Number [id number] Gender Male Accession Number [id number] Date of 1945 Referring David Khan MD Room Number 1831 Physician Oyster Buyer Kimberly Martinez Interpreting Silvia Salamanca T Physician Procedure Type of Study: Extremities Arteries: Upper [...] ! ! + +----+-----+----+--------+ Performing Organization Address City/State/[facility] Phone Number [facility] Venous doppler arm, left (09/03/2018 9:26 PM VENEER JOINTER RETURNER) Ejection Fraction [facility] Specimen Impressions Performed At [facility] Left Impression 1. There is no deep [...] are measured in cm Narrative Performed At PV LAB - Upper Extremities Veins [facility] Dem[facility] Patient Name NADIR MENDEZ Date of Study09/03/2018 ANAYA [id number] [id number] Visit Number [id number] Male Accession Number [id number] of Birth1945 Arnold Chapa [id number] Physician VuographerKimberly MartinezInterpreting Silvia Salamanca RVT PhysicianMD Procedure Type of Study: Veins: Upper [...] External Ris In - 09/04/2018 8:06 AM VENEER JOINTER RETURNER PV LAB - Upper Extremities Veins Demographics Patient Name NADIR MENDEZ Date of Study 09/03/2018 ANAYA Age 73 Visit Number [id number] Gender Male Accession Number [id number] Date of 1945 Referring David Khan MD Room Number 1831 Physician Oyster Buyer Kimberly Martinez Interpreting Silvia Salamanca T Physician [...] City/State/Zipcode Phone Number [facility] RESPIRATORY PANEL [facility] (09/03/2018 12:32 PM VENEER JOINTER RETURNER) Human Metapneumovirus Not detected Not detected, [facility] Rhinovirus Not detected Not detected, [facility] Influenza A Not detected Not detected, [facility] INFLUENZA A (NO SUBTYPE) Not detected, [facility] Influenza A subtype H1 Not detected, [facility] Influenza A Subtype H3 Not detected, [facility] Influenza A Subtype H1-2009 Not detected, [facility] Influenza B Not detected Not detected, [facility] Respiratory Syncytial Virus Not detected Not detected, [facility] Parainfluenza Virus 1 Not detected Not detected, [facility] Parainfluenza Virus 2 Not detected Not detected, [facility] Parainfluenza virus 3 Not detected Not detected, [facility] Parainfluenza Virus 4 Not detected Not detected, [facility] Adenovirus Not detected Not detected, [facility] Coronavirus 229E Not detected Not detected, [facility] Coronavirus HKU1 Not detected Not detected, [facility] Coronavirus NL63 Not detected Not detected, [facility] Coronavirus OC43 Not detected Not detected, [facility] Bordetella Pertussis Not detected Not detected, [facility] Chlamydophila Pneumoniae Not detected Not detected, [facility] Mycoplasma Pneumoniae Not detected Not detected, [facility] Specimen Nasopharyngeal Narrative Performed At Other viruses and bacteria not targeted by [facility] this PCR panel cannot be excluded; therefore clinical correlation and follow up of serology, culture results, and other molecular studies is required. The results are not intended to be used as the sole means for clinical diagnosis or patient management decisions. This sample was tested at the [facility] Molecular Diagnostics Laboratory using the [employer] Respiratory Panel. It is FDA cleared and has been verified and approved by the [facility] Molecular [facility]ostics Laboratory for clinical use on nasal swab specimens. It is not FDA-cleared for use on bronchial wash/lavage samples. However, for this sample type, validation was performed and test characteristics were determined and approved, by [facility] Molecular Diagnostics laboratory for clinical use under the Clinical Laboratory Improvement Amendments (CLIA) of 1988 requirements. Therefore, FDA clearance is not required.This laboratory is CLIA-certified and [employer] (CAP)-accredited to perform high complexity testing. Performing Organization Address [facility] Phone Number [address] [address] CENTER HEMODIALYSIS INPATIENT (09/02/2018 3:33 PM VENEER JOINTER RETURNER) Narrative Performed At Holley Ram RN 09/02/20183:34 PM Dialyzed for 4 hrs. UF net 2L. Vss. Alert, oriented X3. Report given to Tod PHILIP. Iron, TIBC, % sat. (without ferritin) (09/02/2018 3:21 AM VENEER JOINTER RETURNER)Only the most recent of2 resultswithin the time period is included. Iron 55.0 40.0 - 160.0 ug/dL [facility] TIBC 148 (L) 250 - 450 ug/dL [facility] Iron % Saturation 37 20 - 55 % [facility] Specimen Blood Performing Organization Address [facility] Phone Number [address] [address] CENTER Ferritin (09/02/2018 3:21 AM VENEER JOINTER RETURNER)Only the most recent of2 resultswithin the time period is included. Ferritin 414 (H) 5 - 275 ng/mL [facility] Specimen Blood Performing Organization Address [facility] Phone Number [address] [address] [phone] CENTER Troponin I (08/31/2018 4:05 AM VENEER JOINTER RETURNER)Only the most recent of4 resultswithin the time period is included. Troponin I 0.07 (H) 0.00 - 0.03 ng/mL [facility] Specimen Blood Narrative Performed At Troponin I (TnI) levels must be interpreted [facility] in the context of the presenting symptoms [...] disease, and persistent tachyarrhythmia. Performing Organization Address City/[facility] Phone Number [address] [address] [place] ECG 12 lead (08/30/2018 5:10 PM VENEER JOINTER RETURNER) Specimen Narrative Performed At Ventricular Rate 90 BPM GE MUSE Atrial Rate 90 BPM P-R Interval 152 ms QRS Duration 96 ms Q-T Interval 398 ms QTC Calculation(Bazett) 486 ms P [place] 16 degrees R [place] 104 degrees T [place] 26 degrees Sinus rhythm with occasional and consecutive Premature ventricular complexes Rightward axis Abnormal ECG No previous ECGs available Confirmed by MD FLAHERTY JORGE ([id number]) on 09/04/2018 12:55:42 PM Procedure Note Interface, External Ris In - 09/04/2018 12:55 PM VENEER JOINTER RETURNER Ventricular Rate 90 BPM Atrial Rate 90 BPM P-R Interval 152 ms QRS Duration 96 ms Q-T Interval 398 ms QTC Calculation(Bazett) 486 ms P [place] 16 degrees R [place] 104 degrees T [place] 26 degrees Sinus rhythm with occasional and consecutive Premature ventricular complexes Rightward axis Abnormal ECG No previous ECGs available Confirmed by MD FLAHERTY JORGE ([id number]) on 09/04/2018 12:55:42 PM Performing Organization Address City/[facility] Phone Number [employer] MUSE POC ACTIVATED CLOTTING TIME (08/30/2018 11:27 AM VENEER JOINTER RETURNER)Only the most recent of3 resultswithin the time period is included. Activated Clotting Time 142Comment: TESTED AT sec [facility]SC [address] [place] [id number] Specimen Blood Performing Organization Address [facility] Phone Number [address] [address] [phone] [place] Potassium-Stat Lab (08/30/2018 11:26 AM VENEER JOINTER RETURNER) Potassium 4.0 3.6 - 5.5 meq/L [facility] Specimen Blood, Arterial Performing Organization Address City/[facility] Phone Number [address] [address] [phone] [place] Sodium Na-Stat Lab (08/30/2018 11:26 AM VENEER JOINTER RETURNER) Sodium 130 (L) 135 - 148 meq/L [facility] Specimen Blood, Arterial Performing Organization Address [facility] Phone Number [address] [address] [place] Glucose-Stat Lab (08/30/2018 11:26 AM VENEER JOINTER RETURNER) Glucose 112 (H) 70 - 110 mg/dL [facility] Specimen Blood, Arterial Performing Organization Address [facility] Phone Number [address] [address] [place] HGB/HCT (H&H)-Stat Lab (08/30/2018 11:26 AM VENEER JOINTER RETURNER) Hemoglobin 9.9 (L) 13.0 - 16.8 g/dL [facility] Hematocrit 29.0 (L) 40.0 - 50.0 % [facility] Specimen Blood, Arterial Performing Organization Address [facility] Phone Number [address] [address] [phone] [place] Blood gas, arterial (08/30/2018 11:26 AM VENEER JOINTER RETURNER) pH, Arterial 7.43 7.35 - 7.45 [facility] pCO2, Arterial 41 35 - 45 mmHg [facility] pO2, Arterial 297 (H) 80 - 90 mmHg [facility] O2 Sat, Arterial 99.7 (H) 96.0 - 97.0 % [facility] HCO3, Arterial 27 21 - 29 mmol/L [facility] Base Excess, Arterial 2.0 -2.0 - 3.0 mmol/L [facility] Patient Temperature 35.1 C [facility] FIO2 100.0 % [facility] Specimen Blood, Arterial Performing Organization Address City/[facility] Phone Number [address] [address] [place] Calcium, Ionized (08/30/2018 2:50 AM VENEER JOINTER RETURNER)Only the most recent of2 resultswithin the time period is included. Calcium, Ion 1.07 (L) 1.12 - 1.27 mmol/L [facility] pH, Blood 7.43 [facility] Specimen Blood Performing Organization Address [facility] Phone Number [address] [address] [place] Prothrombin time/INR (08/30/2018 2:50 AM VENEER JOINTER RETURNER) Protime 14.9 (H) 11.7 - 14.7 seconds [facility] INR 1.2 <=5.9 [facility] Specimen Blood Narrative Performed At RECOMMENDED COUMADIN/WARFARIN INR THERAPY [facility] RANGES STANDARD DOSE: 2.0 - 3.0 Includes: PROPHYLAXIS for venous thrombosis, systemic embolization; TREATMENT for venous thrombosis and/or pulmonary embolus. HIGH RISK: Target INR is 2.5-3.5 for patients with mechanical heart valves. Performing Organization Address City/[facility] Phone Number [address] [address] [place] HEMODIALYSIS INPATIENT (08/28/2018 12:40 PM VENEER JOINTER RETURNER) Narrative Performed At Minda Fairbanks RN 08/28/2018 [...] Fairbanks RN HEMODIALYSIS INPATIENT (08/26/2018 12:31 PM VENEER JOINTER RETURNER) Narrative Performed At Skinny Montero RN 08/26/2018 [...] RN Comprehensive metabolic panel (08/26/2018 6:07 AM VENEER JOINTER RETURNER)Only the most recent of2 resultswithin the time period is included. Protein, Total 6.5 6.0 - 8.3 gm/dL [facility] Albumin 2.4 (L) 3.5 - 5.0 g/dL [facility] Alkaline Phosphatase 78 40 - 150 U/L [facility] Total Bilirubin 0.4 0.2 - 1.2 mg/dL [facility] Sodium 129 (L) 136 - 145 meq/L [facility] Potassium 4.9 3.5 - 5.1 meq/L [facility] Chloride 93 (L) 98 - 107 meq/L [facility] CO2 26 22 - 29 meq/L [facility] BUN 50 (H) 7 - 21 mg/dL [facility] Creatinine 6.18 (H) 0.57 - 1.25 mg/dL [facility] Glucose 104 70 - 105 mg/dL [facility] Calcium 8.9 8.4 - 10.2 mg/dL [facility] AST 22 5 - 34 U/L [facility] ALT <6 (L) 6 - 55 U/L [facility] EGFR 9Comment: ESTIMATED GFR mL/min/1.73 sq m [facility] IS NOT ACCURATE [facility] CREATININE CLEARANCE IN PREDICTING GLOMERULAR FILTRATION RATE. ESTIMATED GFR IS NOT APPLICABLE FOR DIALYSIS PATIENTS. Specimen Blood Performing Organization Address City/State/Zipcode Phone Number [facility] [address] [place] [address] CENTER Vein Mapping Leg RIght (08/24/2018 4:08 PM VENEER JOINTER RETURNER) Ejection Fraction [facility] Specimen Impressions Performed At Right Impression [facility] 1. There is no deep venous venous [...] PV LAB - Lower Extremities Vein Mapping [facility] Demographics Patient NameSNADIR QUIÑONES Date of Study 08/24/2018 ANAYA 73 Visit [id number] Male of 1945 Referring [facility] Room Number 1819 Physician Oyster Buyer Jannet Soares RVT Physician Procedure Type of [...] External Ris In - 08/25/2018 5:10 PM VENEER JOINTER RETURNER PV LAB - Lower Extremities Vein Mapping Demographics Patient Name NADIR MENDEZ Date of Study 08/24/2018 ANAYA Age 73 Visit Number [id number] Gender Male Accession Number [id number] Date of 1945 Referring [facility] Room Number 1889 Physician Oyster Buyer Jannet Chang Interpreting Sherry Soares RVT Physician Procedure Type of Study: [...] + + + + Performing Organization Address City/State/Zipcode Phone Number [facility] Arterial doppler leg, right (08/24/2018 4:08 PM VENEER JOINTER RETURNER) Ejection [facility] Specimen Impressions Performed At Right Impression [facility] 1. The common femoral and profunda [...] + + + + + + !Prox BLUEPRINT PROCESSOR ! !53.4 !! ! + + + + + + !Mid BLUEPRINT PROCESSOR ! !0! ! ! + + + + + + !Dist BLUEPRINT PROCESSOR ! !0! ! ! + + + [...] PV LAB - Lower Extremity Arterial Duplex [facility] Demographics Patient NameSNADIR QUIÑONES Date of Study 08/24/2018 ANAYA 73 Visit [id number] Male of 1945 Referring [facility] Room Number 1819 Physician Oyster Buyer Jannet Soares RVT Physician Procedure Type of Study: Extremities Arteries: Lower Extremities Arterial Duplex, ARTERIAL DOPPLER LEG, RIGHT. Indications for Study:Dry gangrene. Patient Status:Routine. Study Location:Vascular Lab. Technical Quality:Adequate visualization. Risk Factors History of Disease + +----+ + !Diagnosis !Date!Comments ! + +----+ + !History/Risk Factors: !!Parkinson's, PAD, DM, ESRD, HLD, HTN! + +----+ + Procedure Note Interface, External Ris In - 08/25/2018 5:12 PM VENEER JOINTER RETURNER PV LAB - Lower Extremity Arterial Duplex Demographics Patient Name NADIR MENDEZ Date of Study 08/24/2018 ANAYA Age 73 Visit Number [id number] Gender Male Accession Number [id number] Date of 1945 Referring [facility] Room Number 1819 Physician Oyster Buyer Jannet Chang Interpreting Sherry Soares Neo Physician Procedure Type of Study: Extremities Arteries: [...] + + + -------+ + + !Prox BLUEPRINT PROCESSOR ! !53.4 ! ! ! + + + -------+ + + !Mid BLUEPRINT PROCESSOR ! !0 ! ! ! + + + -------+ + + !Dist BLUEPRINT PROCESSOR ! !0 ! ! ! + + [...] + -------+ + + Performing Organization Address City/[facility]/Zipcode Phone Number [facility] Reticulocyte count (08/24/2018 3:55 AM VENEER JOINTER RETURNER) % Retic 2.0 (H) 0.5 - 1.8 % [facility] Specimen Blood Performing Organization Address [facility]/Zipcode Phone Number [address] [phone] CENTER HEMODIALYSIS INPATIENT (08/23/2018 11:33 AM VENEER JOINTER RETURNER) Narrative Performed At Holley Ram RN 08/23/2018 11:37 AM Dialyzed for 4hrs. UF net 2L. Vss. Alert, oriented x3. Report given to Maya PHILIP XR chest 1 view portable / bedside (08/22/2018 6:40 PM VENEER JOINTER RETURNER) Specimen Narrative Performed At FINAL REPORT RIS INDICATION: Cough COMPARISON: None. TECHNIQUE: Chest radiograph, single view, portable technique. FINDINGS / IMPRESSION: There is no discrete consolidation that would indicate pneumonia. Heart shadow is prominent which may be related to portable technique. No pulmonary edema or pleural effusion demonstrated. No pneumothorax. Left subclavian and axillary stent is noted. Osseous structures unremarkable. Signed: Rian Shelley MD Report Verified Date/Time:08/22/2018 19:51:52 Reading Location: [address] Consult Reading Room Procedure Note Interface, External Ris In - 08/22/2018 7:54 PM VENEER JOINTER RETURNER FINAL REPORT INDICATION: Cough COMPARISON: None. TECHNIQUE: [...] Report Verified Date/Time: 08/22/2018 19:51:52 Reading Location: [facility] C013 Consult Reading Room Performing Organization Address City/State/Zipcode Phone Number RIS Hepatitis B surface antigen (08/22/2018 12:50 PM VENEER JOINTER RETURNER) hepatitis B Surface Ag NON-REACTIVE Nonreactive [facility] Specimen Blood Performing Organization Address City/State/Zipcode Phone Number [address] [address] [phone] CENTER PT/aPTT (08/22/2018 3:38 AM VENEER JOINTER RETURNER) Protime 16.0 (H) 11.7 - 14.7 seconds [facility] INR 1.3 <=5.9 [facility] PTT 51.1 (H) 22.5 - 36.0 seconds [facility] Specimen Blood Narrative Performed At RECOMMENDED COUMADIN/WARFARIN INR THERAPY [facility] RANGES STANDARD DOSE: 2.0 - 3.0 Includes: PROPHYLAXIS for venous thrombosis, systemic embolization; TREATMENT for venous thrombosis and/or pulmonary embolus. HIGH RISK: Target INR is 2.5-3.5 for patients with mechanical heart valves. Performing Organization Address City/State/Zipcode Phone Number [facility] [address] [place] [id number] [place] after 01/06/2018 Insurance Payer Benefit Plan / Group Subscriber ID Type Phone Address CARE IMPROVEMENT MEDICARE CARE IMPROVEMENT PLUS xxxxxxxxx [facility] MEDICAID MEDICAID [place] xxxxxxxxx Medicaid ([place]) [place] [address] Advance Directives Patient has advance care planning documents, and code status on file. For more information, please contact:[address] [phone] Code Status Date Activated Date Inactivated Comments Full Code 08/30/2018 5:03 PM This code status was determined by: Patient Full Code 08/22/2018 1:56 AM 08/30/2018 5:03 PM This code status was determined by: Patient Full Code 09/15/2017 11:54 PM 09/18/2017 7:40 AM This code status was determined by: Patient
--- OUTSIDE RECORDS SUMMARY | 2019-01-07 19:13 | XMS REPORT ---
:1945 [facility] Address [address] [place] [address] Dr. Aviles [address] [place] [id number] Care Team Providers Name Role Phone RICHELLE LOPEZ Unavailable Unavailable ANN MORE Unavailable Unavailable Problems This patient has no known problems. Allergies, Adverse Reactions, Alerts This patient has no known allergies or adverse reactions. Medications This patient has no known medications. Results Test Description Test Time Test Comments Text Results Atomic Results Result Comments RAD, FOOT, MIN 2018-11-04 Reason for FINAL REPORT PATIENT ID: 3 VIEWS, RIGHT 12:54:00 exam:->s/p TMA [id number] Right foot, three images HISTORY: Intubation COMPARISON: 09/06/2018 IMPRESSION:Transmetatarsal amputation of all digits. No appreciable fracture. No dislocation. Bandage material present. Vascular consultation. Signed: Josey Law MDReport Verified Date/Time: 11/04/2018 12:54:24 Reading Location: [address] Transitional Reading Room CULTURE + SMEAR 2018-10-23 10:29:00 Test Item Value Reference Range Comments CULTURE (BEAKER) (test mrbl=4878) No acid-fast bacilli isolated in 42 days AFB SMEAR (BEAKER) (test psxb=826) No acid fast bacilli seen AFB CULTURE + [id number] 10:29:00 Test Item Value Reference Range Comments CULTURE (BEAKER) (test No acid-fast bacilli isolated fxqw=8675) in 42 days AFB SMEAR (BEAKER) (test No acid fast bacilli seen tari=653) AFB CULTURE + [id number] 10:29:00 Test Item Value Reference Range Comments CULTURE (BEAKER) (test No acid-fast bacilli isolated vwac=4349) in 42 days AFB SMEAR (BEAKER) (test No acid fast bacilli seen owuf=532) FUNGUS CULTURE + [id number] 16:39:00 Test Item Value Reference Range Comments CULTURE (BEAKER) (test No fungus isolated in 28 days wwzf=2356) FUNGUS SMEAR (BEAKER) (test No fungi seen whzy=1044) FUNGUS CULTURE + [id number] 16:39:00 Test Item Value Reference Range Comments CULTURE (BEAKER) (test No fungus isolated in 28 days tebb=6505) FUNGUS SMEAR (BEAKER) (test No fungi seen zxsd=9208) FUNGUS CULTURE + [id number] 16:39:00 Test Item Value Reference Range Comments CULTURE (BEAKER) (test No fungus isolated in 28 days vwsn=6071) FUNGUS SMEAR (BEAKER) (test No fungi seen ibjv=6811) TISSUE [id number] 20:00:00Surgical Pathology Report Case: [id number] Authorizing Provider: Aba Millan DPM Collected: 09/13/2018 0820 Ordering Location: [facility] Received: 09/13/2018 0926 SERVICES Pathologist: Carrol Trammell MD Specimen: Metatarsal, Right BONE, RIGHT FOOT , METATARSAL, DEBRIDEMENT:- GANGRENOUS NECROSIS- OSTEOMYELITIS- NEGATIVE FOR MALIGNANCY Signing Pathologist Direct Phone Line: [phone] signed by Carrol Trammell MD on 2018 at 8:00 [id number] surgical woundRight metatarsal. Specimen is received in formalin-filled container labeled with the patient's information and labeled "right metatarsal" and consists of multiple fragments of ch hemorrhagic bone and soft tissue measuring 2.5 x 2 x 1 cm in aggregate. Specimen is sectioned and submitted entirely A1-A4 for decalcification. CG/bc Performed.POCT-GLUCOSE [id number] 13:34:00 Test Item Value Reference Range Comments POC-GLUCOSE METER (BEAKER) 148 mg/dL 70-110 TESTED AT [address] (test zsie=1021) [facility] [address] POCT-GLUCOSE [id number] 08:11:00 Test Item Value Reference Range Comments POC-GLUCOSE METER (BEAKER) 139 mg/dL 70-110 TESTED AT [address] (test yctn=1047) [facility] [address] BASIC METABOLIC [id number] 04:47:00 Test Item Value Reference Range Comments SODIUM (BEAKER) (test 136 meq/L 136-145 sdtl=051) POTASSIUM (BEAKER) (test 4.3 meq/L 3.5-5.1 lfbs=418) CHLORIDE (BEAKER) (test 97 meq/L 98-107 tduw=347) CO2 (BEAKER) (test 27 meq/L 22-29 cbbb=438) BLOOD UREA NITROGEN 43 mg/dL 7-21 (BEAKER) (test ltrg=671) CREATININE (BEAKER) (test 5.04 mg/dL 0.57-1.25 tdtr=026) GLUCOSE RANDOM (BEAKER) 94 mg/dL 70-105 (test luja=256) CALCIUM (BEAKER) (test 8.7 mg/dL 8.4-10.2 yqfo=266) EGFR (BEAKER) (test 11 mL/min/1.73 sq m ESTIMATED GFR IS NOT fbuo=7692) ACCURATE CREATININE CLEARANCE IN PREDICTING GLOMERULAR FILTRATION RATE. ESTIMATED GFR IS NOT APPLICABLE FOR DIALYSIS PATIENTS. [id number] 04:46:00 Test Item Value Reference Range Comments PHOSPHORUS (BEAKER) (test jyyj=848) 3.2 mg/dL 2.3-4.7 [id number] 04:46:00 Test Item Value Reference Range Comments MAGNESIUM (BEAKER) (test rprp=730) 2.1 mg/dL 1.6-2.6 CBC W/PLT COUNT & AUTO [id number] 04:39:00 Test Item Value Reference Range Comments WHITE BLOOD CELL COUNT (BEAKER) (test buec=007) 7.8 K/ L 3.5-10.5 RED BLOOD CELL COUNT (BEAKER) (test xjkl=294) 2.72 M/ L 4.63-6.08 HEMOGLOBIN (BEAKER) (test jlnf=663) 8.9 GM/DL 13.7-17.5 HEMATOCRIT (BEAKER) (test wvmw=387) 27.9 % 40.1-51.0 MEAN CORPUSCULAR VOLUME (BEAKER) (test qpuj=711) 102.6 fL 79.0-92.2 MEAN CORPUSCULAR HEMOGLOBIN (BEAKER) (test 32.7 pg 25.7-32.2 lcwx=079) MEAN CORPUSCULAR HEMOGLOBIN CONC (BEAKER) (test 31.9 GM/DL 32.3-36.5 tape=471) RED CELL DISTRIBUTION WIDTH (BEAKER) (test 17.2 % 11.6-14.4 jwmu=559) PLATELET COUNT (BEAKER) (test jvvk=782) 244 K/CU MM 150-450 MEAN PLATELET VOLUME (BEAKER) (test czuv=805) 11.2 fL 9.4-12.4 NUCLEATED RED BLOOD CELLS (BEAKER) (test 0 /100 WBC 0-0 edbc=266) NEUTROPHILS RELATIVE PERCENT (BEAKER) (test 62 % kqzu=599) LYMPHOCYTES RELATIVE PERCENT (BEAKER) (test 19 % sicl=120) MONOCYTES RELATIVE PERCENT (BEAKER) (test 10 % ejdj=778) EOSINOPHILS RELATIVE PERCENT (BEAKER) (test 7 % ogfh=656) BASOPHILS RELATIVE PERCENT (BEAKER) (test 1 % flau=476) NEUTROPHILS ABSOLUTE COUNT (BEAKER) (test 4.83 K/ L 1.78-5.38 hgay=935) LYMPHOCYTES ABSOLUTE COUNT (BEAKER) (test 1.49 K/ L 1.32-3.57 hwhr=490) MONOCYTES ABSOLUTE COUNT (BEAKER) (test 0.80 K/ L 0.30-0.82 uyfd=993) EOSINOPHILS ABSOLUTE COUNT (BEAKER) (test 0.51 K/ L 0.04-0.54 ecmw=600) BASOPHILS ABSOLUTE COUNT (BEAKER) (test 0.05 K/ L 0.01-0.08 tdss=071) IMMATURE GRANULOCYTES-RELATIVE PERCENT (BEAKER) 1 % 0-1 (test uwnf=5392) POCT-GLUCOSE [id number] 21:35:00 Test Item Value Reference Range Comments POC-GLUCOSE METER (BEAKER) 181 mg/dL 70-110 TESTED AT [address] (test zhbr=2333) [facility] [address] POCT-GLUCOSE [id number] 17:58:00 Test Item Value Reference Range Comments POC-GLUCOSE METER (BEAKER) 166 mg/dL 70-110 TESTED AT [address] (test ilew=1692) [facility] [address] POCT-GLUCOSE [id number] 12:45:00 Test Item Value Reference Range Comments POC-GLUCOSE METER (BEAKER) 146 mg/dL 70-[address] [facility] [address] [facility] (test lnil=9004) [facility] [address] POCT-GLUCOSE [id number] 08:59:00 Test Item Value Reference Range Comments POC-GLUCOSE METER (BEAKER) 158 mg/dL 70-[address] [facility] [address] [facility] (test whiw=8735) [facility] [address] [id number] 05:22:00 Test Item Value Reference Range Comments PHOSPHORUS (BEAKER) (test snkw=383) 2.5 mg/dL 2.3-4.7 [id number] 05:22:00 Test Item Value Reference Range Comments MAGNESIUM (BEAKER) (test yapz=078) 2.0 mg/dL 1.6-2.6 CBC W/PLT COUNT & AUTO [id number] 05:03:00 Test Item Value Reference Range Comments WHITE BLOOD CELL COUNT (BEAKER) (test vhzg=625) 8.2 K/ L 3.5-10.5 RED BLOOD CELL COUNT (BEAKER) (test hhqq=362) 2.70 M/ L 4.63-6.08 HEMOGLOBIN (BEAKER) (test qxiv=387) 8.8 GM/DL 13.7-17.5 HEMATOCRIT (BEAKER) (test bonr=400) 28.2 % 40.1-51.0 MEAN CORPUSCULAR VOLUME (BEAKER) (test hlcf=352) 104.4 fL 79.0-92.2 MEAN CORPUSCULAR HEMOGLOBIN (BEAKER) (test 32.6 pg 25.7-32.2 gitz=576) MEAN CORPUSCULAR HEMOGLOBIN CONC (BEAKER) (test 31.2 GM/DL 32.3-36.5 hnlq=682) RED CELL DISTRIBUTION WIDTH (BEAKER) (test 17.4 % 11.6-14.4 ijov=691) PLATELET COUNT (BEAKER) (test fjhs=025) 255 K/CU MM 150-450 MEAN PLATELET VOLUME (BEAKER) (test ipqg=752) 11.1 fL 9.4-12.4 NUCLEATED RED BLOOD CELLS (BEAKER) (test 0 /100 WBC 0-0 loui=025) NEUTROPHILS RELATIVE PERCENT (BEAKER) (test 68 % lxsf=449) LYMPHOCYTES RELATIVE PERCENT (BEAKER) (test 15 % gtcb=996) MONOCYTES RELATIVE PERCENT (BEAKER) (test 10 % ktnm=087) EOSINOPHILS RELATIVE PERCENT (BEAKER) (test 6 % xgnn=848) BASOPHILS RELATIVE PERCENT (BEAKER) (test 1 % eqbk=380) NEUTROPHILS ABSOLUTE COUNT (BEAKER) (test 5.50 K/ L 1.78-5.38 vzlm=646) LYMPHOCYTES ABSOLUTE COUNT (BEAKER) (test 1.25 K/ L 1.32-3.57 cyxd=254) MONOCYTES ABSOLUTE COUNT (BEAKER) (test 0.85 K/ L 0.30-0.82 wpan=317) EOSINOPHILS ABSOLUTE COUNT (BEAKER) (test 0.46 K/ L 0.04-0.54 emvm=790) BASOPHILS ABSOLUTE COUNT (BEAKER) (test 0.04 K/ L 0.01-0.08 cljb=735) IMMATURE GRANULOCYTES-RELATIVE PERCENT (BEAKER) 1 % 0-1 (test sdew=9245) POCT-GLUCOSE [id number] 21:29:00 Test Item Value Reference Range Comments POC-GLUCOSE METER (BEAKER) 175 mg/dL 70-110 TESTED AT [address] (test jdpf=1427) [place] [address] POCT-GLUCOSE [id number] 17:57:00 Test Item Value Reference Range Comments POC-GLUCOSE METER (BEAKER) 171 mg/dL 70-110 TESTED AT [address] (test rqsd=3847) [place] [address] POCT-GLUCOSE [id number] 13:43:00 Test Item Value Reference Range Comments POC-GLUCOSE METER (BEAKER) 189 mg/dL 70-110 TESTED AT [address] (test zyrz=5419) [place] [address] TISSUE [id number] 13:19:00Surgical Pathology Report Case: [id number] Authorizing Provider: Aba Millan DPM Collected: 09/07/201837 Ordering Location: [address] Received: 09/09/2018 0839 Service Pathologist: Rober Hicks MD Specimen: Foot, Right, right foot amputation FOOT, RIGHT, DISTAL AMPUTATION: GANGRENOUS NECROSIS OF SKIN AND SOFT TISSUE.UNDERLYING ACUTE AND CHRONIC OSTEOMYELITISCALCIFIC ATHEROSCLEROSIS.RESECTION MARGINS VIABLE.SPECIAL STAINS FOR FUNGAL ORGANISMS (GMS, PAS) ARE NEGATIVE. Signing Pathologist Direct Phone Line: [phone] signed by Rober Hicks MD on at 1:19 [id number] x2Open wound of right lower extremity Right [...] Sectioning reveals dark brown necrotic cut surface. 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 SA/bc Performed.The interpretation of this case included the use of immunohistochemistry or special stains. BLOCK A3- GMS, PASImmunohistochemistry technical testing [place] [facility] [place] where it was developed and [...] perform high complexity clinical laboratory testing.BASIC METABOLIC [id number] 10:39:00 Test Item Value Reference Range Comments SODIUM (BEAKER) (test 138 meq/L 136-145 xevl=513) POTASSIUM (BEAKER) (test 4.8 meq/L 3.5-5.1 uaph=360) CHLORIDE (BEAKER) (test 99 meq/L 98-107 mcfc=417) CO2 (BEAKER) (test 28 meq/L 22-29 isux=377) BLOOD UREA NITROGEN 46 mg/dL 7-21 (BEAKER) (test yvrq=521) CREATININE (BEAKER) (test 5.96 mg/dL 0.57-1.25 giyg=134) GLUCOSE RANDOM (BEAKER) 93 mg/dL 70-105 (test znil=755) CALCIUM (BEAKER) (test 8.5 mg/dL 8.4-10.2 pwle=596) EGFR (BEAKER) (test 9 mL/min/1.73 sq m ESTIMATED GFR IS NOT zgrs=2687) ACCURATE CREATININE CLEARANCE IN PREDICTING GLOMERULAR FILTRATION RATE. ESTIMATED GFR IS NOT APPLICABLE FOR DIALYSIS PATIENTS. POCT-GLUCOSE [id number] 07:45:00 Test Item Value Reference Range Comments POC-GLUCOSE METER (BEAKER) 127 mg/dL 70-[address] [facility] [address] [facility] (test hdbj=1526) [facility] [address] [id number] 06:16:00 Test Item Value Reference Range Comments PHOSPHORUS (BEAKER) (test vndg=135) 4.1 mg/dL 2.3-4.7 [id number] 06:16:00 Test Item Value Reference Range Comments MAGNESIUM (BEAKER) (test lmhx=734) 2.0 mg/dL 1.6-2.6 CBC W/PLT COUNT & AUTO [id number] 05:30:00 Test Item Value Reference Range Comments WHITE BLOOD CELL COUNT (BEAKER) (test lcrl=345) 9.1 K/ L 3.5-10.5 RED BLOOD CELL COUNT (BEAKER) (test fbxk=344) 2.70 M/ L 4.63-6.08 HEMOGLOBIN (BEAKER) (test eldq=438) 8.8 GM/DL 13.7-17.5 HEMATOCRIT (BEAKER) (test uyiv=869) 28.2 % 40.1-51.0 MEAN CORPUSCULAR VOLUME (BEAKER) (test jqxw=979) 104.4 fL 79.0-92.2 MEAN CORPUSCULAR HEMOGLOBIN (BEAKER) (test 32.6 pg 25.7-32.2 blwi=521) MEAN CORPUSCULAR HEMOGLOBIN CONC (BEAKER) (test 31.2 GM/DL 32.3-36.5 nuef=768) RED CELL DISTRIBUTION WIDTH (BEAKER) (test 17.2 % 11.6-14.4 jcid=833) PLATELET COUNT (BEAKER) (test sfvh=324) 238 K/CU MM 150-450 MEAN PLATELET VOLUME (BEAKER) (test bkim=680) 10.6 fL 9.4-12.4 NUCLEATED RED BLOOD CELLS (BEAKER) (test 0 /100 WBC 0-0 urnx=072) NEUTROPHILS RELATIVE PERCENT (BEAKER) (test 69 % sbuo=610) LYMPHOCYTES RELATIVE PERCENT (BEAKER) (test 15 % rlbj=245) MONOCYTES RELATIVE PERCENT (BEAKER) (test 9 % fird=128) EOSINOPHILS RELATIVE PERCENT (BEAKER) (test 7 % lwcu=511) BASOPHILS RELATIVE PERCENT (BEAKER) (test 0 % srxk=374) NEUTROPHILS ABSOLUTE COUNT (BEAKER) (test 6.25 K/ L 1.78-5.38 onyz=891) LYMPHOCYTES ABSOLUTE COUNT (BEAKER) (test 1.36 K/ L 1.32-3.57 tuqy=833) MONOCYTES ABSOLUTE COUNT (BEAKER) (test 0.78 K/ L 0.30-0.82 mept=217) EOSINOPHILS ABSOLUTE COUNT (BEAKER) (test 0.61 K/ L 0.04-0.54 igfr=971) BASOPHILS ABSOLUTE COUNT (BEAKER) (test 0.04 K/ L 0.01-0.08 hcqi=398) IMMATURE GRANULOCYTES-RELATIVE PERCENT (BEAKER) 1 % 0-1 (test ratu=6054) POCT-GLUCOSE [id number] 21:26:00 Test Item Value Reference Range Comments POC-GLUCOSE METER (BEAKER) 117 mg/dL 70-[address] [facility] [address] [facility] (test tcjx=1856) [facility] [address] POCT-GLUCOSE [id number] 17:29:00 Test Item Value Reference Range Comments POC-GLUCOSE METER (BEAKER) 212 mg/dL 70-110 TESTED AT [address] (test caen=2915) [facility] [address] POCT-GLUCOSE [id number] 11:33:00 Test Item Value Reference Range Comments POC-GLUCOSE METER (BEAKER) 185 mg/dL 70-110 TESTED AT [address] (test dfut=4511) [facility] [address] RAD, FOOT, MIN 3 VIEWS, [id number] 08:28:00Reason for exam:->s/p amputationFINAL REPORT RIGHT FOOT [...] Arterial calcifications are present. Signed: Ciara Huffman MDReport Verified Date/Time: 09/15/201808:28:29 Reading Location: [address] Reading Room POCT- GLUCOSE [id number] 08:02:00 Test Item Value Reference Range Comments POC-GLUCOSE METER (BEAKER) 171 mg/dL 70-110 TESTED AT [place] [address] [facility] (test ongi=7004) [place] [address] [id number] 06:39:00 Test Item Value Reference Range Comments PHOSPHORUS (BEAKER) (test uhyx=160) 3.4 mg/dL 2.3-4.7 [id number] 06:39:00 Test Item Value Reference Range Comments MAGNESIUM (BEAKER) (test dima=158) 2.1 mg/dL 1.6-2.6 CBC W/PLT COUNT & AUTO [id number] 05:38:00 Test Item Value Reference Range Comments WHITE BLOOD CELL COUNT (BEAKER) (test ggut=872) 8.4 K/ L 3.5-10.5 RED BLOOD CELL COUNT (BEAKER) (test hzmn=681) 2.64 M/ L 4.63-6.08 HEMOGLOBIN (BEAKER) (test yztm=054) 8.7 GM/DL 13.7-17.5 HEMATOCRIT (BEAKER) (test riao=816) 27.7 % 40.1-51.0 MEAN CORPUSCULAR VOLUME (BEAKER) (test uvyx=050) 104.9 fL 79.0-92.2 MEAN CORPUSCULAR HEMOGLOBIN (BEAKER) (test 33.0 pg 25.7-32.2 jcie=507) MEAN CORPUSCULAR HEMOGLOBIN CONC (BEAKER) (test 31.4 GM/DL 32.3-36.5 zpov=360) RED CELL DISTRIBUTION WIDTH (BEAKER) (test 17.3 % 11.6-14.4 mygd=391) PLATELET COUNT (BEAKER) (test tdlb=212) 238 K/CU MM 150-450 MEAN PLATELET VOLUME (BEAKER) (test rmuj=913) 11.4 fL 9.4-12.4 NUCLEATED RED BLOOD CELLS (BEAKER) (test 0 /100 WBC 0-0 ojkm=775) NEUTROPHILS RELATIVE PERCENT (BEAKER) (test 65 % dvlp=405) LYMPHOCYTES RELATIVE PERCENT (BEAKER) (test 16 % knuc=275) MONOCYTES RELATIVE PERCENT (BEAKER) (test 12 % tasg=401) EOSINOPHILS RELATIVE PERCENT (BEAKER) (test 6 % txve=209) BASOPHILS RELATIVE PERCENT (BEAKER) (test 1 % gvhj=582) NEUTROPHILS ABSOLUTE COUNT (BEAKER) (test 5.50 K/ L 1.78-5.38 ivnd=027) LYMPHOCYTES ABSOLUTE COUNT (BEAKER) (test 1.33 K/ L 1.32-3.57 ehfy=294) MONOCYTES ABSOLUTE COUNT (BEAKER) (test 1.01 K/ L 0.30-0.82 snwt=867) EOSINOPHILS ABSOLUTE COUNT (BEAKER) (test 0.47 K/ L 0.04-0.54 ebpa=433) BASOPHILS ABSOLUTE COUNT (BEAKER) (test 0.05 K/ L 0.01-0.08 qhnw=898) IMMATURE GRANULOCYTES-RELATIVE PERCENT (BEAKER) 1 % 0-1 (test evfx=1661) POCT-GLUCOSE [id number] 21:37:00 Test Item Value Reference Range Comments POC-GLUCOSE METER (BEAKER) 203 mg/dL 70-110 TESTED AT [address] (test rnlr=7266) [facility] [address] POCT-GLUCOSE [id number] 17:17:00 Test Item Value Reference Range Comments POC-GLUCOSE METER (BEAKER) 135 mg/dL 70-110 TESTED AT [address] (test ufnn=6502) [facility] [address] POCT-GLUCOSE [id number] 13:16:00 Test Item Value Reference Range Comments POC-GLUCOSE METER (BEAKER) 177 mg/dL 70-110 TESTED AT [address] (test rzta=4380) [facility] [address] POCT-GLUCOSE [id number] 07:55:00 Test Item Value Reference Range Comments POC-GLUCOSE METER (BEAKER) 136 mg/dL 70-110 TESTED AT [address] (test luis=8457) [facility] [address] BASIC METABOLIC [id number] 05:47:00 Test Item Value Reference Range Comments SODIUM (BEAKER) (test 139 meq/L 136-145 ykxz=915) POTASSIUM (BEAKER) (test 4.3 meq/L 3.5-5.1 vmpo=677) CHLORIDE (BEAKER) (test 102 meq/L 98-107 vehd=227) CO2 (BEAKER) (test 30 meq/L 22-29 lqre=274) BLOOD UREA NITROGEN 21 mg/dL 7-21 (BEAKER) (test yjvl=066) CREATININE (BEAKER) (test 3.49 mg/dL 0.57-1.25 oxzf=495) GLUCOSE RANDOM (BEAKER) 119 mg/dL 70-105 (test tvjp=276) CALCIUM (BEAKER) (test 8.7 mg/dL 8.4-10.2 kldk=093) EGFR (BEAKER) (test 17 mL/min/1.73 sq m ESTIMATED GFR IS NOT qahx=4991) ACCURATE CREATININE CLEARANCE IN PREDICTING GLOMERULAR FILTRATION RATE. ESTIMATED GFR IS NOT APPLICABLE FOR DIALYSIS PATIENTS. [id number] 04:09:00 Test Item Value Reference Range Comments PHOSPHORUS (BEAKER) (test arzm=900) 2.8 mg/dL 2.3-4.7 [id number] 04:09:00 Test Item Value Reference Range Comments MAGNESIUM (BEAKER) (test kuen=496) 1.9 mg/dL 1.6-2.6 CBC W/PLT COUNT & AUTO [id number] 03:46:00 Test Item Value Reference Range Comments WHITE BLOOD CELL COUNT (BEAKER) (test gjql=694) 7.6 K/ L 3.5-10.5 RED BLOOD CELL COUNT (BEAKER) (test qjbs=613) 2.78 M/ L 4.63-6.08 HEMOGLOBIN (BEAKER) (test ovyc=754) 9.0 GM/DL 13.7-17.5 HEMATOCRIT (BEAKER) (test sdea=471) 29.2 % 40.1-51.0 MEAN CORPUSCULAR VOLUME (BEAKER) (test kwpy=078) 105.0 fL 79.0-92.2 MEAN CORPUSCULAR HEMOGLOBIN (BEAKER) (test 32.4 pg 25.7-32.2 ghkw=668) MEAN CORPUSCULAR HEMOGLOBIN CONC (BEAKER) (test 30.8 GM/DL 32.3-36.5 wtwu=763) RED CELL DISTRIBUTION WIDTH (BEAKER) (test 17.1 % 11.6-14.4 qcqi=379) PLATELET COUNT (BEAKER) (test utwq=488) 209 K/CU MM 150-450 MEAN PLATELET VOLUME (BEAKER) (test fkqx=193) 11.1 fL 9.4-12.4 NUCLEATED RED BLOOD CELLS (BEAKER) (test 0 /100 WBC 0-0 wocw=529) NEUTROPHILS RELATIVE PERCENT (BEAKER) (test 66 % mduj=684) LYMPHOCYTES RELATIVE PERCENT (BEAKER) (test 15 % xehg=097) MONOCYTES RELATIVE PERCENT (BEAKER) (test 13 % ramx=608) EOSINOPHILS RELATIVE PERCENT (BEAKER) (test 5 % yqpr=084) BASOPHILS RELATIVE PERCENT (BEAKER) (test 1 % uxow=612) NEUTROPHILS ABSOLUTE COUNT (BEAKER) (test 4.95 K/ L 1.78-5.38 eyrk=257) LYMPHOCYTES ABSOLUTE COUNT (BEAKER) (test 1.13 K/ L 1.32-3.57 wsba=517) MONOCYTES ABSOLUTE COUNT (BEAKER) (test 0.99 K/ L 0.30-0.82 knyj=747) EOSINOPHILS ABSOLUTE COUNT (BEAKER) (test 0.38 K/ L 0.04-0.54 gsap=648) BASOPHILS ABSOLUTE COUNT (BEAKER) (test 0.07 K/ L 0.01-0.08 tays=225) IMMATURE GRANULOCYTES-RELATIVE PERCENT (BEAKER) 1 % 0-1 (test ebnn=0446) POCT-GLUCOSE [id number] 22:47:00 Test Item Value Reference Range Comments POC-GLUCOSE METER (BEAKER) 165 mg/dL 70-110 TESTED AT [address] (test mvpe=0110) [place] [address] POCT-GLUCOSE [id number] 19:32:00 Test Item Value Reference Range Comments POC-GLUCOSE METER (BEAKER) 159 mg/dL 70-110 TESTED AT [address] (test lyqx=0761) [place] [address] POCT-GLUCOSE [id number] 17:32:00 Test Item Value Reference Range Comments POC-GLUCOSE METER (BEAKER) 119 mg/dL 70-110 TESTED AT [address] (test wapn=3517) [place] [address] ANAEROBIC [id number] 16:45:00 Test Item Value Reference Range Comments CULTURE (BEAKER) (test <1+ Same organism has been isolated tkrk=4875) from culture(s) of the same body site and collection date. Repeat identification performed only after consultation with the clinical microbiology laboratory.Refer to previous culture ofBacteroides species, not fragilis ANAEROBIC [id number] 16:42:00 Test Item Value Reference Range Comments CULTURE (BEAKER) (test 4+ Bacteroides species, not iuod=3227) fragilis ANAEROBIC [id number] 16:37:00 Test Item Value Reference Range Comments CULTURE (BEAKER) (test 1+ Same organism has been isolated qwfx=0585) from culture(s) of the same body site and collection date. Repeat identification performed only after consultation with the clinical microbiology laboratory.Refer to previous culture ofBacteroides species, not fragilis POCT-GLUCOSE [id number] 09:46:00 Test Item Value Reference Range Comments POC-GLUCOSE METER (BEAKER) 114 mg/dL 70-110 TESTED AT [place] [id number] [facility] (test gcix=7318) [place] [address] POCT-GLUCOSE [id number] 09:03:00 Test Item Value Reference Range Comments POC-GLUCOSE METER (BEAKER) 117 mg/dL 70-[address] [facility] [address] [facility] (test bjyc=9379) [facility] [address] BASIC METABOLIC [id number] 06:08:00 Test Item Value Reference Range Comments SODIUM (BEAKER) (test 137 meq/L 136-145 rxwo=853) POTASSIUM (BEAKER) (test 4.3 meq/L 3.5-5.1 tpmw=222) CHLORIDE (BEAKER) (test 99 meq/L 98-107 lqbf=806) CO2 (BEAKER) (test 28 meq/L 22-29 xiwc=258) BLOOD UREA NITROGEN 36 mg/dL 7-21 (BEAKER) (test vcnq=373) CREATININE (BEAKER) (test 5.01 mg/dL 0.57-1.25 tzbg=671) GLUCOSE RANDOM (BEAKER) 78 mg/dL 70-105 (test ujnx=243) CALCIUM (BEAKER) (test 8.9 mg/dL 8.4-10.2 qgxl=038) EGFR (BEAKER) (test 11 mL/min/1.73 sq m ESTIMATED GFR IS NOT bwoi=6711) ACCURATE CREATININE CLEARANCE IN PREDICTING GLOMERULAR FILTRATION RATE. ESTIMATED GFR IS NOT APPLICABLE FOR DIALYSIS PATIENTS. [id number] 06:04:00 Test Item Value Reference Range Comments PHOSPHORUS (BEAKER) (test ylqy=539) 3.9 mg/dL 2.3-4.7 [id number] 06:04:00 Test Item Value Reference Range Comments MAGNESIUM (BEAKER) (test nazc=188) 2.0 mg/dL 1.6-2.6 CBC W/PLT COUNT & AUTO [id number] 05:20:00 Test Item Value Reference Range Comments WHITE BLOOD CELL COUNT (BEAKER) (test vqax=695) 8.3 K/ L 3.5-10.5 RED BLOOD CELL COUNT (BEAKER) (test xmta=364) 3.03 M/ L 4.63-6.08 HEMOGLOBIN (BEAKER) (test qhjk=052) 9.7 GM/DL 13.7-17.5 HEMATOCRIT (BEAKER) (test hiam=334) 30.9 % 40.1-51.0 MEAN CORPUSCULAR VOLUME (BEAKER) (test cnru=141) 102.0 fL 79.0-92.2 MEAN CORPUSCULAR HEMOGLOBIN (BEAKER) (test 32.0 pg 25.7-32.2 rexi=165) MEAN CORPUSCULAR HEMOGLOBIN CONC (BEAKER) (test 31.4 GM/DL 32.3-36.5 soad=618) RED CELL DISTRIBUTION WIDTH (BEAKER) (test 16.7 % 11.6-14.4 qcdh=763) PLATELET COUNT (BEAKER) (test brze=977) 238 K/CU MM 150-450 MEAN PLATELET VOLUME (BEAKER) (test usjg=282) 11.3 fL 9.4-12.4 NUCLEATED RED BLOOD CELLS (BEAKER) (test 0 /100 WBC 0-0 mhes=691) NEUTROPHILS RELATIVE PERCENT (BEAKER) (test 66 % scao=323) LYMPHOCYTES RELATIVE PERCENT (BEAKER) (test 15 % mknn=060) MONOCYTES RELATIVE PERCENT (BEAKER) (test 11 % zcrz=821) EOSINOPHILS RELATIVE PERCENT (BEAKER) (test 7 % gwxw=814) BASOPHILS RELATIVE PERCENT (BEAKER) (test 1 % vmln=279) NEUTROPHILS ABSOLUTE COUNT (BEAKER) (test 5.46 K/ L 1.78-5.38 ugcf=283) LYMPHOCYTES ABSOLUTE COUNT (BEAKER) (test 1.21 K/ L 1.32-3.57 gqms=392) MONOCYTES ABSOLUTE COUNT (BEAKER) (test 0.90 K/ L 0.30-0.82 hblk=068) EOSINOPHILS ABSOLUTE COUNT (BEAKER) (test 0.59 K/ L 0.04-0.54 xiwx=063) BASOPHILS ABSOLUTE COUNT (BEAKER) (test 0.08 K/ L 0.01-0.08 vkwa=398) IMMATURE GRANULOCYTES-RELATIVE PERCENT (BEAKER) 0 % 0-1 (test fqhg=2753) POCT-GLUCOSE [id number] 21:31:00 Test Item Value Reference Range Comments POC-GLUCOSE METER (BEAKER) 102 mg/dL 70-110 TESTED AT [address] (test utkn=1494) [place] [id number] POCT-GLUCOSE [id number] 18:22:00 Test Item Value Reference Range Comments POC-GLUCOSE METER (BEAKER) 119 mg/dL 70-110 TESTED AT [address] (test jnfb=1755) [place] [id number] POCT-GLUCOSE [id number] 13:19:00 Test Item Value Reference Range Comments POC-GLUCOSE METER (BEAKER) 169 mg/dL 70-110 TESTED AT [place] [id number] [facility] (test xznn=3967) [facility] [address] POCT-GLUCOSE [id number] 13:19:00 Test Item Value Reference Range Comments POC-GLUCOSE METER (BEAKER) 149 mg/dL 70-110 TESTED AT [address] (test ilvg=5832) [facility] [address] [id number] 05:26:00 Test Item Value Reference Range Comments PHOSPHORUS (BEAKER) (test hezm=208) 2.8 mg/dL 2.3-4.7 [id number] 05:26:00 Test Item Value Reference Range Comments MAGNESIUM (BEAKER) (test njsd=039) 2.0 mg/dL 1.6-2.6 CBC W/PLT COUNT & AUTO [id number] 05:06:00 Test Item Value Reference Range Comments WHITE BLOOD CELL COUNT (BEAKER) (test pael=113) 8.8 K/ L 3.5-10.5 RED BLOOD CELL COUNT (BEAKER) (test nzhz=745) 2.80 M/ L 4.63-6.08 HEMOGLOBIN (BEAKER) (test fiem=650) 9.2 GM/DL 13.7-17.5 HEMATOCRIT (BEAKER) (test lfgv=370) 28.9 % 40.1-51.0 MEAN CORPUSCULAR VOLUME (BEAKER) (test ekdl=104) 103.2 fL 79.0-92.2 MEAN CORPUSCULAR HEMOGLOBIN (BEAKER) (test 32.9 pg 25.7-32.2 myly=786) MEAN CORPUSCULAR HEMOGLOBIN CONC (BEAKER) (test 31.8 GM/DL 32.3-36.5 zmgv=462) RED CELL DISTRIBUTION WIDTH (BEAKER) (test 16.9 % 11.6-14.4 mckz=965) PLATELET COUNT (BEAKER) (test wofj=389) 202 K/CU MM 150-450 MEAN PLATELET VOLUME (BEAKER) (test yebx=550) 11.4 fL 9.4-12.4 NUCLEATED RED BLOOD CELLS (BEAKER) (test 0 /100 WBC 0-0 soxl=164) NEUTROPHILS RELATIVE PERCENT (BEAKER) (test 67 % srah=581) LYMPHOCYTES RELATIVE PERCENT (BEAKER) (test 14 % uwyy=106) MONOCYTES RELATIVE PERCENT (BEAKER) (test 13 % jdjt=420) EOSINOPHILS RELATIVE PERCENT (BEAKER) (test 4 % kunh=411) BASOPHILS RELATIVE PERCENT (BEAKER) (test 1 % vmoc=643) NEUTROPHILS ABSOLUTE COUNT (BEAKER) (test 5.89 K/ L 1.78-5.38 bxqv=685) LYMPHOCYTES ABSOLUTE COUNT (BEAKER) (test 1.25 K/ L 1.32-3.57 uuax=261) MONOCYTES ABSOLUTE COUNT (BEAKER) (test 1.13 K/ L 0.30-0.82 wpxy=642) EOSINOPHILS ABSOLUTE COUNT (BEAKER) (test 0.39 K/ L 0.04-0.54 mgao=817) BASOPHILS ABSOLUTE COUNT (BEAKER) (test 0.09 K/ L 0.01-0.08 nuef=880) IMMATURE GRANULOCYTES-RELATIVE PERCENT (BEAKER) 1 % 0-1 (test jrdx=7585) POCT-GLUCOSE [id number] 21:42:00 Test Item Value Reference Range Comments POC-GLUCOSE METER (BEAKER) 189 mg/dL 70-110 TESTED AT [address] (test xoji=4844) [place] [address] POCT-GLUCOSE [id number] 17:52:00 Test Item Value Reference Range Comments POC-GLUCOSE METER (BEAKER) 140 mg/dL 70-110 TESTED AT [address] (test rbud=6140) [place] [address] POCT-GLUCOSE [id number] 14:50:00 Test Item Value Reference Range Comments POC-GLUCOSE METER (BEAKER) 108 mg/dL 70-110 TESTED AT [address] (test lxtf=3271) [place] [address] POCT-GLUCOSE [id number] 13:07:00 Test Item Value Reference Range Comments POC-GLUCOSE METER (BEAKER) 139 mg/dL 70-110 TESTED AT [address] (test lvga=6080) [place] [id number] VITAMIN B12 AND [id number] 12:59:00 Test Item Value Reference Range Comments VITAMIN B12 (BEAKER) (test qkea=166) 1098 pg/mL 213-816 FOLATE (BEAKER) (test yqdm=832) 12.9 ng/mL >=7.0 SURGICALLY OBTAINED CULTURE + GRAM [id number] 09:25:00 Test Item Value Reference Range Comments CULTURE (BEAKER) (test KLEBSIELLA OXYTOCA 4+ Klebsiella idns=4886) oxytocaESBL Positive Amikacin (test code=1) Ampicillin + Sulbactam (test code=6) Aztreonam (test code=32) Cefepime (test code=51) Cefoxitin (test code=68) Ceftazidime (test code=27) Ceftriaxone (test code=52) Ertapenem (test code=38) Gentamicin (test code=18) Levofloxacin (test code=22) Meropenem (test code=34) Nitrofurantoin (test code=23) Piperacillin + Tazobactam (test code=29) Tetracycline (test code=2) Tobramycin (test code=25) Trimethoprim + Sulfamethoxazole (test code=47) CULTURE (BEAKER) (test <1+ Same organism has kdjl=9332) been isolated from cultures(s) of the same body site and collection date. Repeat identification and susceptibility testing performed only after consultation with the clinical microbiology laboratory.Refer to previous culture ofAchromobacter species GRAM STAIN RESULT (BEAKER) <1+ WBCs (test guvc=8945) GRAM STAIN RESULT (BEAKER) No organisms seen (test iuex=058863) SURGICALLY OBTAINED CULTURE + GRAM [id number] 09:24:00 Test Item Value Reference Range Comments CULTURE (BEAKER) (test <1+ Achromobacter species jjuj=4819) GRAM STAIN RESULT <1+ WBCs (BEAKER) (test eqoj=2321) GRAM STAIN RESULT No organisms seen (BEAKER) (test qbpp=870427) POCT-GLUCOSE [id number] 08:02:00 Test Item Value Reference Range Comments POC-GLUCOSE METER (BEAKER) 97 mg/dL 70-[address] [facility] [address] (test rmhu=6283) [facility] [address] [id number] 07:07:00 Test Item Value Reference Range Comments PHOSPHORUS (BEAKER) (test bkyv=841) 3.1 mg/dL 2.3-4.7 [id number] 07:07:00 Test Item Value Reference Range Comments MAGNESIUM (BEAKER) (test wqxl=332) 1.8 mg/dL 1.6-2.6 CBC W/PLT COUNT & AUTO [id number] 05:56:00 Test Item Value Reference Range Comments WHITE BLOOD CELL COUNT (BEAKER) (test ekjh=326) 10.3 K/ L 3.5-10.5 RED BLOOD CELL COUNT (BEAKER) (test bkzi=714) 2.78 M/ L 4.63-6.08 HEMOGLOBIN (BEAKER) (test lidb=092) 9.1 GM/DL 13.7-17.5 HEMATOCRIT (BEAKER) (test ohvu=010) 28.7 % 40.1-51.0 MEAN CORPUSCULAR VOLUME (BEAKER) (test sljx=160) 103.2 fL 79.0-92.2 MEAN CORPUSCULAR HEMOGLOBIN (BEAKER) (test 32.7 pg 25.7-32.2 rmab=843) MEAN CORPUSCULAR HEMOGLOBIN CONC (BEAKER) (test 31.7 GM/DL 32.3-36.5 ezxz=310) RED CELL DISTRIBUTION WIDTH (BEAKER) (test 17.1 % 11.6-14.4 tjcd=279) PLATELET COUNT (BEAKER) (test vhmz=517) 206 K/CU MM 150-450 MEAN PLATELET VOLUME (BEAKER) (test zrrb=488) 11.9 fL 9.4-12.4 NUCLEATED RED BLOOD CELLS (BEAKER) (test 0 /100 WBC 0-0 lajm=962) NEUTROPHILS RELATIVE PERCENT (BEAKER) (test 68 % vduy=975) LYMPHOCYTES RELATIVE PERCENT (BEAKER) (test 14 % ozyy=603) MONOCYTES RELATIVE PERCENT (BEAKER) (test 12 % qnhq=163) EOSINOPHILS RELATIVE PERCENT (BEAKER) (test 5 % swrw=895) BASOPHILS RELATIVE PERCENT (BEAKER) (test 1 % usdr=428) NEUTROPHILS ABSOLUTE COUNT (BEAKER) (test 7.00 K/ L 1.78-5.38 dmhk=483) LYMPHOCYTES ABSOLUTE COUNT (BEAKER) (test 1.40 K/ L 1.32-3.57 vcgy=469) MONOCYTES ABSOLUTE COUNT (BEAKER) (test 1.19 K/ L 0.30-0.82 mggx=649) EOSINOPHILS ABSOLUTE COUNT (BEAKER) (test 0.54 K/ L 0.04-0.54 mcxd=971) BASOPHILS ABSOLUTE COUNT (BEAKER) (test 0.08 K/ L 0.01-0.08 shdo=907) IMMATURE GRANULOCYTES-RELATIVE PERCENT (BEAKER) 0 % 0-1 (test bhbg=7614) POCT-GLUCOSE [id number] 23:12:00 Test Item Value Reference Range Comments POC-GLUCOSE METER (BEAKER) 133 mg/dL 70-110 TESTED AT [address] (test favs=4375) [place] [address] BLOOD [id number] 19:00:00 Test Item Value Reference Range Comments CULTURE (BEAKER) (test swko=4487) No growth in 5 days POCT-GLUCOSE [id number] 17:33:00 Test Item Value Reference Range Comments POC-GLUCOSE METER (BEAKER) 186 mg/dL 70-110 TESTED AT [address] (test ggrn=1725) [place] [address] POCT-GLUCOSE [id number] 13:57:00 Test Item Value Reference Range Comments POC-GLUCOSE METER (BEAKER) 195 mg/dL 70-110 TESTED AT [address] (test qfjy=4644) [place] [address] BLOOD [id number] 11:00:00 Test Item Value Reference Range Comments CULTURE (BEAKER) (test odkf=7765) No growth in 5 days SURGICALLY OBTAINED CULTURE + GRAM [id number] 10:37:00 Test Item Value Reference Range Comments CULTURE (BEAKER) (test qbrn=6520) No growth GRAM STAIN RESULT (BEAKER) (test <1+ WBCs odkr=6749) GRAM STAIN RESULT (BEAKER) (test No organisms seen hbef=77065) POCT-GLUCOSE [id number] 09:49:00 Test Item Value Reference Range Comments POC-GLUCOSE METER (BEAKER) 107 mg/dL 70-110 TESTED AT [address] (test iuzu=1458) [place] [address] [id number] 06:19:00 Test Item Value Reference Range Comments PHOSPHORUS (BEAKER) (test jhzk=220) 2.7 mg/dL 2.3-4.7 [id number] 06:19:00 Test Item Value Reference Range Comments MAGNESIUM (BEAKER) (test tpfx=550) 1.7 mg/dL 1.6-2.6 CBC W/PLT COUNT & AUTO [id number] 05:24:00 Test Item Value Reference Range Comments WHITE BLOOD CELL COUNT (BEAKER) (test mgjk=296) 9.3 K/ L 3.5-10.5 RED BLOOD CELL COUNT (BEAKER) (test xtjy=186) 2.73 M/ L 4.63-6.08 HEMOGLOBIN (BEAKER) (test xpgl=271) 8.9 GM/DL 13.7-17.5 HEMATOCRIT (BEAKER) (test ayqv=737) 28.0 % 40.1-51.0 MEAN CORPUSCULAR VOLUME (BEAKER) (test hpda=088) 102.6 fL 79.0-92.2 MEAN CORPUSCULAR HEMOGLOBIN (BEAKER) (test 32.6 pg 25.7-32.2 dldt=865) MEAN CORPUSCULAR HEMOGLOBIN CONC (BEAKER) (test 31.8 GM/DL 32.3-36.5 djxz=654) RED CELL DISTRIBUTION WIDTH (BEAKER) (test 17.4 % 11.6-14.4 teuv=657) PLATELET COUNT (BEAKER) (test zxnf=157) 198 K/CU MM 150-450 MEAN PLATELET VOLUME (BEAKER) (test beub=915) 11.7 fL 9.4-12.4 NUCLEATED RED BLOOD CELLS (BEAKER) (test 0 /100 WBC 0-0 wplm=009) NEUTROPHILS RELATIVE PERCENT (BEAKER) (test 72 % wuxv=170) LYMPHOCYTES RELATIVE PERCENT (BEAKER) (test 11 % ucns=291) MONOCYTES RELATIVE PERCENT (BEAKER) (test 12 % ofyv=494) EOSINOPHILS RELATIVE PERCENT (BEAKER) (test 3 % kvza=176) BASOPHILS RELATIVE PERCENT (BEAKER) (test 1 % dobu=893) NEUTROPHILS ABSOLUTE COUNT (BEAKER) (test 6.71 K/ L 1.78-5.38 ecfx=058) LYMPHOCYTES ABSOLUTE COUNT (BEAKER) (test 1.00 K/ L 1.32-3.57 fdhd=394) MONOCYTES ABSOLUTE COUNT (BEAKER) (test 1.15 K/ L 0.30-0.82 urqj=952) EOSINOPHILS ABSOLUTE COUNT (BEAKER) (test 0.32 K/ L 0.04-0.54 kqow=628) BASOPHILS ABSOLUTE COUNT (BEAKER) (test 0.06 K/ L 0.01-0.08 vkxb=530) IMMATURE GRANULOCYTES-RELATIVE PERCENT (BEAKER) 0 % 0-1 (test rzbi=0616) POCT-GLUCOSE [id number] 22:37:00 Test Item Value Reference Range Comments POC-GLUCOSE METER (BEAKER) 110 mg/dL 70-110 TESTED AT [address] (test rmbu=1076) [place] [id number] POCT-GLUCOSE [id number] 21:15:00 Test Item Value Reference Range Comments POC-GLUCOSE METER (BEAKER) 142 mg/dL 70-110 TESTED AT [address] (test bzxj=9406) [place] [address] POCT-GLUCOSE [id number] 13:13:00 Test Item Value Reference Range Comments POC-GLUCOSE METER (BEAKER) 136 mg/dL 70-110 TESTED AT [address] (test vqbt=0541) [place] [address] POCT-GLUCOSE [id number] 09:36:00 Test Item Value Reference Range Comments POC-GLUCOSE METER (BEAKER) 111 mg/dL 70-110 TESTED AT [address] (test krcn=1165) [place] [id number] BASIC METABOLIC [id number] 06:08:00 Test Item Value Reference Range Comments SODIUM (BEAKER) (test 136 meq/L 136-145 krcu=624) POTASSIUM (BEAKER) (test 4.5 meq/L 3.5-5.1 yeyh=288) CHLORIDE (BEAKER) (test 97 meq/L 98-107 vsrr=233) CO2 (BEAKER) (test 26 meq/L 22-29 rfhb=953) BLOOD UREA NITROGEN 44 mg/dL 7-21 (BEAKER) (test zdbx=306) CREATININE (BEAKER) (test 5.76 mg/dL 0.57-1.25 rnik=283) GLUCOSE RANDOM (BEAKER) 78 mg/dL 70-105 (test wmsl=264) CALCIUM (BEAKER) (test 8.2 mg/dL 8.4-10.2 jgsa=580) EGFR (BEAKER) (test 10 mL/min/1.73 sq m ESTIMATED GFR IS NOT qgie=9442) ACCURATE CREATININE CLEARANCE IN PREDICTING GLOMERULAR FILTRATION RATE. ESTIMATED GFR IS NOT APPLICABLE FOR DIALYSIS PATIENTS. [id number] 06:02:00 Test Item Value Reference Range Comments PHOSPHORUS (BEAKER) (test gjse=258) 3.3 mg/dL 2.3-4.7 [id number] 06:02:00 Test Item Value Reference Range Comments MAGNESIUM (BEAKER) (test yfqt=533) 1.9 mg/dL 1.6-2.6 CBC W/PLT COUNT & AUTO [id number] 05:39:00 Test Item Value Reference Range Comments WHITE BLOOD CELL COUNT (BEAKER) (test apep=105) 8.8 K/ L 3.5-10.5 RED BLOOD CELL COUNT (BEAKER) (test clzp=338) 2.71 M/ L 4.63-6.08 HEMOGLOBIN (BEAKER) (test kmfp=341) 8.9 GM/DL 13.7-17.5 HEMATOCRIT (BEAKER) (test flcf=234) 27.9 % 40.1-51.0 MEAN CORPUSCULAR VOLUME (BEAKER) (test axmv=641) 103.0 fL 79.0-92.2 MEAN CORPUSCULAR HEMOGLOBIN (BEAKER) (test 32.8 pg 25.7-32.2 mvzx=004) MEAN CORPUSCULAR HEMOGLOBIN CONC (BEAKER) (test 31.9 GM/DL 32.3-36.5 htiz=678) RED CELL DISTRIBUTION WIDTH (BEAKER) (test 17.3 % 11.6-14.4 tvow=154) PLATELET COUNT (BEAKER) (test eacb=441) 177 K/CU MM 150-450 MEAN PLATELET VOLUME (BEAKER) (test pddr=071) 11.6 fL 9.4-12.4 NUCLEATED RED BLOOD CELLS (BEAKER) (test 0 /100 WBC 0-0 cxom=421) NEUTROPHILS RELATIVE PERCENT (BEAKER) (test 68 % madc=282) LYMPHOCYTES RELATIVE PERCENT (BEAKER) (test 15 % gqui=292) MONOCYTES RELATIVE PERCENT (BEAKER) (test 11 % esiy=202) EOSINOPHILS RELATIVE PERCENT (BEAKER) (test 5 % wybh=810) BASOPHILS RELATIVE PERCENT (BEAKER) (test 0 % miyn=630) NEUTROPHILS ABSOLUTE COUNT (BEAKER) (test 5.98 K/ L 1.78-5.38 rozi=994) LYMPHOCYTES ABSOLUTE COUNT (BEAKER) (test 1.35 K/ L 1.32-3.57 yyyb=631) MONOCYTES ABSOLUTE COUNT (BEAKER) (test 0.97 K/ L 0.30-0.82 kjqt=517) EOSINOPHILS ABSOLUTE COUNT (BEAKER) (test 0.45 K/ L 0.04-0.54 mhyg=418) BASOPHILS ABSOLUTE COUNT (BEAKER) (test 0.03 K/ L 0.01-0.08 drzl=771) IMMATURE GRANULOCYTES-RELATIVE PERCENT (BEAKER) 0 % 0-1 (test lwvy=9796) POCT-GLUCOSE [id number] 00:11:00 Test Item Value Reference Range Comments POC-GLUCOSE METER (BEAKER) 146 mg/dL 70-110 TESTED AT [address] (test llyi=3105) [place] [address] POCT-GLUCOSE [id number] 17:14:00 Test Item Value Reference Range Comments POC-GLUCOSE METER (BEAKER) 160 mg/dL 70-110 TESTED AT [address] (test ydfr=2628) [place] [address] POCT-GLUCOSE [id number] 13:54:00 Test Item Value Reference Range Comments POC-GLUCOSE METER (BEAKER) 242 mg/dL 70-110 TESTED AT [address] (test dvca=3412) [place] [address] POCT-GLUCOSE [id number] 13:10:00 Test Item Value Reference Range Comments POC-GLUCOSE METER (BEAKER) 163 mg/dL 70-110 TESTED AT [address] (test pogl=4393) [place] [address] POCT-GLUCOSE [id number] 08:35:00 Test Item Value Reference Range Comments POC-GLUCOSE METER (BEAKER) 176 mg/dL 70-110 TESTED AT [address] (test osgc=1005) [place] [address] [id number] 04:40:00 Test Item Value Reference Range Comments PHOSPHORUS (BEAKER) (test dljf=729) 2.7 mg/dL 2.3-4.7 [id number] 04:40:00 Test Item Value Reference Range Comments MAGNESIUM (BEAKER) (test xayt=477) 1.8 mg/dL 1.6-2.6 CBC W/PLT COUNT & AUTO [id number] 04:00:00 Test Item Value Reference Range Comments WHITE BLOOD CELL COUNT (BEAKER) (test qzli=495) 8.5 K/ L 3.5-10.5 RED BLOOD CELL COUNT (BEAKER) (test zpem=257) 2.77 M/ L 4.63-6.08 HEMOGLOBIN (BEAKER) (test rstl=679) 9.0 GM/DL 13.7-17.5 HEMATOCRIT (BEAKER) (test prnq=158) 28.5 % 40.1-51.0 MEAN CORPUSCULAR VOLUME (BEAKER) (test aupb=256) 102.9 fL 79.0-92.2 MEAN CORPUSCULAR HEMOGLOBIN (BEAKER) (test 32.5 pg 25.7-32.2 oziw=175) MEAN CORPUSCULAR HEMOGLOBIN CONC (BEAKER) (test 31.6 GM/DL 32.3-36.5 ffkl=412) RED CELL DISTRIBUTION WIDTH (BEAKER) (test 17.7 % 11.6-14.4 hlab=206) PLATELET COUNT (BEAKER) (test dxwn=910) 189 K/CU MM 150-450 MEAN PLATELET VOLUME (BEAKER) (test ivrg=558) 11.5 fL 9.4-12.4 NUCLEATED RED BLOOD CELLS (BEAKER) (test 0 /100 WBC 0-0 maht=479) NEUTROPHILS RELATIVE PERCENT (BEAKER) (test 72 % mpct=797) LYMPHOCYTES RELATIVE PERCENT (BEAKER) (test 10 % dnih=524) MONOCYTES RELATIVE PERCENT (BEAKER) (test 12 % joqg=734) EOSINOPHILS RELATIVE PERCENT (BEAKER) (test 5 % omoz=399) BASOPHILS RELATIVE PERCENT (BEAKER) (test 1 % ssbt=741) NEUTROPHILS ABSOLUTE COUNT (BEAKER) (test 6.13 K/ L 1.78-5.38 qwtv=235) LYMPHOCYTES ABSOLUTE COUNT (BEAKER) (test 0.88 K/ L 1.32-3.57 hets=883) MONOCYTES ABSOLUTE COUNT (BEAKER) (test 0.98 K/ L 0.30-0.82 bjum=806) EOSINOPHILS ABSOLUTE COUNT (BEAKER) (test 0.39 K/ L 0.04-0.54 kate=105) BASOPHILS ABSOLUTE COUNT (BEAKER) (test 0.04 K/ L 0.01-0.08 buqu=802) IMMATURE GRANULOCYTES-RELATIVE PERCENT (BEAKER) 1 % 0-1 (test dqoe=7605) POCT-GLUCOSE [id number] 00:16:00 Test Item Value Reference Range Comments POC-GLUCOSE METER (BEAKER) 223 mg/dL 70-110 TESTED AT [address] (test evth=1640) [place] [id number] POCT-GLUCOSE [id number] 16:51:00 Test Item Value Reference Range Comments POC-GLUCOSE METER (BEAKER) 133 mg/dL 70-110 TESTED AT [address] (test nlnd=8040) [place] [address] POCT-GLUCOSE [id number] 12:50:00 Test Item Value Reference Range Comments POC-GLUCOSE METER (BEAKER) 178 mg/dL 70-110 TESTED AT [address] (test tjli=7140) [place] [address] POCT-GLUCOSE [id number] 11:53:00 Test Item Value Reference Range Comments POC-GLUCOSE METER (BEAKER) 177 mg/dL 70-110 TESTED AT [address] (test nskq=6247) [place] [address] POCT-GLUCOSE [id number] 09:58:00 Test Item Value Reference Range Comments POC-GLUCOSE METER (BEAKER) 173 mg/dL 70-110 TESTED AT [address] (test flzk=0883) [place] [address] CBC W/PLT COUNT & AUTO [id number] 06:10:00 Test Item Value Reference Range Comments WHITE BLOOD CELL COUNT (BEAKER) (test petu=585) 7.8 K/ L 3.5-10.5 RED BLOOD CELL COUNT (BEAKER) (test wtkk=335) 3.08 M/ L 4.63-6.08 HEMOGLOBIN (BEAKER) (test foqe=631) 10.0 GM/DL 13.7-17.5 HEMATOCRIT (BEAKER) (test yvqc=823) 31.2 % 40.1-51.0 MEAN CORPUSCULAR VOLUME (BEAKER) (test ggrq=537) 101.3 fL 79.0-92.2 MEAN CORPUSCULAR HEMOGLOBIN (BEAKER) (test 32.5 pg 25.7-32.2 yupy=225) MEAN CORPUSCULAR HEMOGLOBIN CONC (BEAKER) (test 32.1 GM/DL 32.3-36.5 flir=097) RED CELL DISTRIBUTION WIDTH (BEAKER) (test 18.7 % 11.6-14.4 bbpu=895) PLATELET COUNT (BEAKER) (test zpeu=584) 177 K/CU MM 150-450 MEAN PLATELET VOLUME (BEAKER) (test ntur=079) 11.4 fL 9.4-12.4 NUCLEATED RED BLOOD CELLS (BEAKER) (test 0 /100 WBC 0-0 xzib=309) NEUTROPHILS RELATIVE PERCENT (BEAKER) (test 63 % wjgr=706) LYMPHOCYTES RELATIVE PERCENT (BEAKER) (test 15 % nccc=940) MONOCYTES RELATIVE PERCENT (BEAKER) (test 12 % odyb=480) EOSINOPHILS RELATIVE PERCENT (BEAKER) (test 8 % ilcv=354) BASOPHILS RELATIVE PERCENT (BEAKER) (test 1 % xoes=412) NEUTROPHILS ABSOLUTE COUNT (BEAKER) (test 4.90 K/ L 1.78-5.38 smun=270) LYMPHOCYTES ABSOLUTE COUNT (BEAKER) (test 1.16 K/ L 1.32-3.57 axvj=796) MONOCYTES ABSOLUTE COUNT (BEAKER) (test 0.92 K/ L 0.30-0.82 vfkh=296) EOSINOPHILS ABSOLUTE COUNT (BEAKER) (test 0.65 K/ L 0.04-0.54 kpuy=586) BASOPHILS ABSOLUTE COUNT (BEAKER) (test 0.09 K/ L 0.01-0.08 lnme=520) IMMATURE GRANULOCYTES-RELATIVE PERCENT (BEAKER) 1 % 0-1 (test gvig=2507) [id number] 06:08:00 Test Item Value Reference Range Comments POTASSIUM (BEAKER) (test puoq=089) 4.1 meq/L 3.5-5.1 [id number] 06:08:00 Test Item Value Reference Range Comments MAGNESIUM (BEAKER) (test dlxx=552) 1.7 mg/dL 1.6-2.6 [id number] 06:08:00 Test Item Value Reference Range Comments PHOSPHORUS (BEAKER) (test peuj=975) 2.4 mg/dL 2.3-4.7 POCT-GLUCOSE [id number] 05:20:00 Test Item Value Reference Range Comments POC-GLUCOSE METER (BEAKER) 170 mg/dL 70-110 TESTED AT [address] (test cwhh=1124) [facility] [address] POCT-GLUCOSE [id number] 20:31:00 Test Item Value Reference Range Comments POC-GLUCOSE METER (BEAKER) 157 mg/dL 70-110 TESTED AT [address] (test rksg=0091) [facility] [id number] POCT-GLUCOSE [id number] 15:40:00 Test Item Value Reference Range Comments POC-GLUCOSE METER (BEAKER) 148 mg/dL 70-110 TESTED AT [address] (test wioj=1257) [facility] [address] [id number] 10:23:00 Test Item Value Reference Range Comments POTASSIUM (BEAKER) (test pfsm=621) 4.0 meq/L 3.5-5.1 CBC W/PLT COUNT & AUTO [id number] 05:56:00 Test Item Value Reference Range Comments WHITE BLOOD CELL COUNT (BEAKER) (test ogvt=614) 6.9 K/ L 3.5-10.5 RED BLOOD CELL COUNT (BEAKER) (test yayi=025) 2.06 M/ L 4.63-6.08 HEMOGLOBIN (BEAKER) (test rbvy=529) 6.9 GM/DL 13.7-17.5 HEMATOCRIT (BEAKER) (test itbj=651) 22.2 % 40.1-51.0 MEAN CORPUSCULAR VOLUME (BEAKER) (test lsvj=491) 107.8 fL 79.0-92.2 MEAN CORPUSCULAR HEMOGLOBIN (BEAKER) (test 33.5 pg 25.7-32.2 cjed=430) MEAN CORPUSCULAR HEMOGLOBIN CONC (BEAKER) (test 31.1 GM/DL 32.3-36.5 tbjd=657) RED CELL DISTRIBUTION WIDTH (BEAKER) (test 16.2 % 11.6-14.4 sgwo=170) PLATELET COUNT (BEAKER) (test kkwf=352) 200 K/CU MM 150-450 MEAN PLATELET VOLUME (BEAKER) (test deuo=070) 11.0 fL 9.4-12.4 NUCLEATED RED BLOOD CELLS (BEAKER) (test 0 /100 WBC 0-0 mvly=295) NEUTROPHILS RELATIVE PERCENT (BEAKER) (test 59 % phmu=445) LYMPHOCYTES RELATIVE PERCENT (BEAKER) (test 21 % kjxh=676) MONOCYTES RELATIVE PERCENT (BEAKER) (test 13 % drkk=633) EOSINOPHILS RELATIVE PERCENT (BEAKER) (test 6 % wjyr=594) BASOPHILS RELATIVE PERCENT (BEAKER) (test 1 % oatf=451) NEUTROPHILS ABSOLUTE COUNT (BEAKER) (test 4.08 K/ L 1.78-5.38 gocw=791) LYMPHOCYTES ABSOLUTE COUNT (BEAKER) (test 1.45 K/ L 1.32-3.57 lubi=815) MONOCYTES ABSOLUTE COUNT (BEAKER) (test 0.90 K/ L 0.30-0.82 dpbb=376) EOSINOPHILS ABSOLUTE COUNT (BEAKER) (test 0.38 K/ L 0.04-0.54 lsjj=341) BASOPHILS ABSOLUTE COUNT (BEAKER) (test 0.05 K/ L 0.01-0.08 ntfg=636) IMMATURE GRANULOCYTES-RELATIVE PERCENT (BEAKER) 1 % 0-1 (test jmgx=5423) [id number] 05:37:00 Test Item Value Reference Range Comments PHOSPHORUS (BEAKER) (test pbld=655) 3.1 mg/dL 2.3-4.7 [id number] 05:37:00 Test Item Value Reference Range Comments MAGNESIUM (BEAKER) (test ayxr=583) 2.1 mg/dL 1.6-2.6 POCT-GLUCOSE [id number] 17:48:00 Test Item Value Reference Range Comments POC-GLUCOSE METER (BEAKER) 154 mg/dL 70-110 TESTED AT [address] (test btdp=9282) [place] [id number] POCT-GLUCOSE [id number] 12:56:00 Test Item Value Reference Range Comments POC-GLUCOSE METER (BEAKER) 196 mg/dL 70-110 TESTED AT [address] (test hhbs=9199) [place] [id number] POCT-GLUCOSE [id number] 08:41:00 Test Item Value Reference Range Comments POC-GLUCOSE METER (BEAKER) 158 mg/dL 70-110 TESTED AT [address] (test dbhq=0047) [place] [address] CBC W/PLT COUNT & AUTO [id number] 06:30:00 Test Item Value Reference Range Comments WHITE BLOOD CELL COUNT (BEAKER) (test khtj=668) 9.0 K/ L 3.5-10.5 RED BLOOD CELL COUNT (BEAKER) (test voug=064) 2.49 M/ L 4.63-6.08 HEMOGLOBIN (BEAKER) (test dixr=138) 8.2 GM/DL 13.7-17.5 HEMATOCRIT (BEAKER) (test nvca=760) 27.2 % 40.1-51.0 MEAN CORPUSCULAR VOLUME (BEAKER) (test latq=769) 109.2 fL 79.0-92.2 MEAN CORPUSCULAR HEMOGLOBIN (BEAKER) (test 32.9 pg 25.7-32.2 fvrt=214) MEAN CORPUSCULAR HEMOGLOBIN CONC (BEAKER) (test 30.1 GM/DL 32.3-36.5 zchr=574) RED CELL DISTRIBUTION WIDTH (BEAKER) (test 15.9 % 11.6-14.4 nyyi=746) PLATELET COUNT (BEAKER) (test ctwx=570) 214 K/CU MM 150-450 MEAN PLATELET VOLUME (BEAKER) (test twxs=568) 11.3 fL 9.4-12.4 NUCLEATED RED BLOOD CELLS (BEAKER) (test 0 /100 WBC 0-0 oonm=052) NEUTROPHILS RELATIVE PERCENT (BEAKER) (test 84 % sdmu=988) LYMPHOCYTES RELATIVE PERCENT (BEAKER) (test 7 % nnbd=349) MONOCYTES RELATIVE PERCENT (BEAKER) (test 7 % bxmc=215) EOSINOPHILS RELATIVE PERCENT (BEAKER) (test 0 % vpuz=068) BASOPHILS RELATIVE PERCENT (BEAKER) (test 1 % vstv=834) NEUTROPHILS ABSOLUTE COUNT (BEAKER) (test 7.60 K/ L 1.78-5.38 hhag=226) LYMPHOCYTES ABSOLUTE COUNT (BEAKER) (test 0.61 K/ L 1.32-3.57 ltcb=955) MONOCYTES ABSOLUTE COUNT (BEAKER) (test 0.65 K/ L 0.30-0.82 qbec=665) EOSINOPHILS ABSOLUTE COUNT (BEAKER) (test 0.03 K/ L 0.04-0.54 nmur=209) BASOPHILS ABSOLUTE COUNT (BEAKER) (test 0.09 K/ L 0.01-0.08 npib=681) IMMATURE GRANULOCYTES-RELATIVE PERCENT (BEAKER) 1 % 0-1 (test bnyl=1864) [id number] 06:22:00 Test Item Value Reference Range Comments PHOSPHORUS (BEAKER) (test foww=369) 3.0 mg/dL 2.3-4.7 [id number] 06:22:00 Test Item Value Reference Range Comments MAGNESIUM (BEAKER) (test jkvm=254) 1.9 mg/dL 1.6-2.6 POCT-GLUCOSE [id number] 00:08:00 Test Item Value Reference Range Comments POC-GLUCOSE METER (BEAKER) 131 mg/dL 70-110 TESTED AT [address] (test llvf=6572) [facility] [address] POCT-GLUCOSE [id number] 18:50:00 Test Item Value Reference Range Comments POC-GLUCOSE METER (BEAKER) 136 mg/dL 70-110 TESTED AT [address] (test vbiw=6826) [facility] [address] RAD, FOOT, MIN 3 VIEWS, [id number] 13:56:00Reason for exam:->non healing woundFINAL REPORT RAD, [...] MDReport Verified Date/Time: 09/04/2018 13:56:28 Reading Location: [facility] [id number] Consult Reading Room POCT- GLUCOSE [id number] 12:12:00 Test Item Value Reference Range Comments POC-GLUCOSE METER (BEAKER) 125 mg/dL 70-110 TESTED AT [address] (test odca=6972) [facility] [address] POCT-GLUCOSE [id number] 08:06:00 Test Item Value Reference Range Comments POC-GLUCOSE METER (BEAKER) 122 mg/dL 70-[address] [facility] [address] (test keyo=0629) [facility] [address] CBC W/PLT COUNT & AUTO [id number] 04:43:00 Test Item Value Reference Range Comments WHITE BLOOD CELL COUNT (BEAKER) (test xfrc=322) 8.1 K/ L 3.5-10.5 RED BLOOD CELL COUNT (BEAKER) (test rjlr=453) 2.40 M/ L 4.63-6.08 HEMOGLOBIN (BEAKER) (test qqis=825) 7.9 GM/DL 13.7-17.5 HEMATOCRIT (BEAKER) (test quzd=221) 25.5 % 40.1-51.0 MEAN CORPUSCULAR VOLUME (BEAKER) (test csrz=036) 106.3 fL 79.0-92.2 MEAN CORPUSCULAR HEMOGLOBIN (BEAKER) (test 32.9 pg 25.7-32.2 lpzv=219) MEAN CORPUSCULAR HEMOGLOBIN CONC (BEAKER) (test 31.0 GM/DL 32.3-36.5 cmzx=661) RED CELL DISTRIBUTION WIDTH (BEAKER) (test 15.1 % 11.6-14.4 idvv=393) PLATELET COUNT (BEAKER) (test jczz=632) 226 K/CU MM 150-450 MEAN PLATELET VOLUME (BEAKER) (test knwo=497) 11.1 fL 9.4-12.4 NUCLEATED RED BLOOD CELLS (BEAKER) (test 0 /100 WBC 0-0 ourl=292) NEUTROPHILS RELATIVE PERCENT (BEAKER) (test 63 % gzkv=582) LYMPHOCYTES RELATIVE PERCENT (BEAKER) (test 16 % xvcb=597) MONOCYTES RELATIVE PERCENT (BEAKER) (test 11 % vhwd=537) EOSINOPHILS RELATIVE PERCENT (BEAKER) (test 9 % ctmv=717) BASOPHILS RELATIVE PERCENT (BEAKER) (test 1 % qyft=536) NEUTROPHILS ABSOLUTE COUNT (BEAKER) (test 5.07 K/ L 1.78-5.38 ghxz=908) LYMPHOCYTES ABSOLUTE COUNT (BEAKER) (test 1.31 K/ L 1.32-3.57 bbcw=473) MONOCYTES ABSOLUTE COUNT (BEAKER) (test 0.92 K/ L 0.30-0.82 wgjb=415) EOSINOPHILS ABSOLUTE COUNT (BEAKER) (test 0.70 K/ L 0.04-0.54 whka=628) BASOPHILS ABSOLUTE COUNT (BEAKER) (test 0.07 K/ L 0.01-0.08 milp=169) IMMATURE GRANULOCYTES-RELATIVE PERCENT (BEAKER) 0 % 0-1 (test qiwe=2750) [id number] 04:39:00 Test Item Value Reference Range Comments PHOSPHORUS (BEAKER) (test oglg=114) 2.9 mg/dL 2.3-4.7 [id number] 04:39:00 Test Item Value Reference Range Comments MAGNESIUM (BEAKER) (test ntas=347) 1.9 mg/dL 1.6-2.6 BASIC METABOLIC [id number] 04:39:00 Test Item Value Reference Range Comments SODIUM (BEAKER) (test 139 meq/L 136-145 wsbe=262) POTASSIUM (BEAKER) (test 4.3 meq/L 3.5-5.1 icat=545) CHLORIDE (BEAKER) (test 100 meq/L 98-107 ralg=917) CO2 (BEAKER) (test 30 meq/L 22-29 mppx=063) BLOOD UREA NITROGEN 29 mg/dL 7-21 (BEAKER) (test mnrv=006) CREATININE (BEAKER) (test 4.41 mg/dL 0.57-1.25 ldeh=501) GLUCOSE RANDOM (BEAKER) 115 mg/dL 70-105 (test swak=860) CALCIUM (BEAKER) (test 8.6 mg/dL 8.4-10.2 lrff=949) EGFR (BEAKER) (test 13 mL/min/1.73 sq m ESTIMATED GFR IS NOT vmun=7100) ACCURATE CREATININE CLEARANCE IN PREDICTING GLOMERULAR FILTRATION RATE. ESTIMATED GFR IS NOT APPLICABLE FOR DIALYSIS PATIENTS. POCT-GLUCOSE [id number] 20:32:00 Test Item Value Reference Range Comments POC-GLUCOSE METER (BEAKER) 177 mg/dL 70-110 TESTED AT [address] (test odkh=0124) [facility] [address] POCT-GLUCOSE [id number] 18:07:00 Test Item Value Reference Range Comments POC-GLUCOSE METER (BEAKER) 141 mg/dL 70-110 [facility] yprs=1051) [facility] [address] RESPIRATORY PANEL [id number] 15:28:00 Test Item Value Reference Range Comments HUMAN METAPNEUMOVIRUS (BEAKER) (test Not detected Not detected, Equivocal kvim=0749) RHINOVIRUS (BEAKER) (test cnpd=6515) Not detected Not detected, Equivocal INFLUENZA A (BEAKER) (test wcee=9344) Not detected Not detected, Equivocal INFLUENZA A (NO SUBTYPE) (test Not detected, Equivocal ughf=6637) INFLUENZA A SUBTYPE H1 (BEAKER) (test Not detected, Equivocal cqjj=3380) INFLUENZA A SUBTYPE H3 (BEAKER) (test Not detected, Equivocal ziuj=7892) INFLUENZA A SUBTYPE H1-2009 (BEAKER) Not detected, Equivocal (test krtw=6066) INFLUENZA B (BEAKER) (test gjuh=7606) Not detected Not detected, Equivocal RESPIRATORY SYNCYTIAL VIRUS (BEAKER) Not detected Not detected, Equivocal (test vlyc=8303) PARAINFLUENZA VIRUS 1 (BEAKER) (test Not detected Not detected, Equivocal mpbo=6591) PARAINFLUENZA VIRUS 2 (BEAKER) (test Not detected Not detected, Equivocal lbzc=5859) PARAINFLUENZA VIRUS 3 (BEAKER) (test Not detected Not detected, Equivocal lumb=1368) PARAINFLUENZA VIRUS 4 (BEAKER) (test Not detected Not detected, Equivocal qhyj=2801) ADENOVIRUS (BEAKER) (test egkw=3022) Not detected Not detected, Equivocal CORONAVIRUS 229E (BEAKER) (test Not detected Not detected, Equivocal yfbh=0431) CORONAVIRUS HKU1 (BEAKER) (test Not detected Not detected, Equivocal nopt=8290) CORONAVIRUS NL63 (BEAKER) (test Not detected Not detected, Equivocal jfdt=5617) CORONAVIRUS OC43 (BEAKER) (test Not detected Not detected, Equivocal kxvz=4891) BORDETELLA PERTUSSIS (BEAKER) (test Not detected Not detected, Equivocal ewzn=5490) CHLAMYDOPHILA PNEUMONIAE (BEAKER) (test Not detected Not detected, Equivocal glhl=2899) MYCOPLASMA PNEUMONIAE (BEAKER) (test Not detected Not detected, Equivocal veow=7538) Other viruses and bacteria not targeted by this PCR panel cannot be excluded; therefore clinical correlation and follow up of serology, culture results, and other molecular studies is required. The results are not intended to be used as the sole means for clinical diagnosis or patient management decisions. This sample was tested at the [facility] Molecular Diagnostics Laboratory using the [email or web address] Respiratory Panel. It is FDA cleared and has been verified and approved by the [facility] Molecular Diagnostics Laboratory for clinical use on nasal swab specimens. It is not FDA-cleared for use on bronchial wash/lavage samples. However, for this sample type, validation was performed and test characteristics were determined and approved, by [facility] Molecular Diagnostics laboratory for clinical use under the Clinical Laboratory Improvement Amendments (CLIA) of 1988 requirements. Therefore, FDA clearance isnot required. This laboratory is CLIA-certified and [employer] ([employer])-accredited to perform high complexity testing.POCT-GLUCOSE [id number] 12:53:00 Test Item Value Reference Range Comments POC-GLUCOSE METER (BEAKER) 147 mg/dL 70-110 TESTED AT [address] (test rakk=3058) [place] [id number] POCT-GLUCOSE [id number] 07:57:00 Test Item Value Reference Range Comments POC-GLUCOSE METER (BEAKER) 81 mg/dL 70-110 TESTED AT [address] (test imwh=8337) [place] [id number] BASIC METABOLIC [id number] 04:37:00 Test Item Value Reference Range Comments SODIUM (BEAKER) (test 140 meq/L 136-145 ptyr=364) POTASSIUM (BEAKER) (test 3.6 meq/L 3.5-5.1 dhxo=547) CHLORIDE (BEAKER) (test 102 meq/L 98-107 hknw=512) CO2 (BEAKER) (test 32 meq/L 22-29 edcz=301) BLOOD UREA NITROGEN 19 mg/dL 7-21 (BEAKER) (test lskg=537) CREATININE (BEAKER) (test 3.20 mg/dL 0.57-1.25 wjwy=041) GLUCOSE RANDOM (BEAKER) 77 mg/dL 70-105 (test jwjl=689) CALCIUM (BEAKER) (test 8.3 mg/dL 8.4-10.2 bxjn=452) EGFR (BEAKER) (test 19 mL/min/1.73 sq m ESTIMATED GFR IS NOT tnih=7636) ACCURATE CREATININE CLEARANCE IN PREDICTING GLOMERULAR FILTRATION RATE. ESTIMATED GFR IS NOT APPLICABLE FOR DIALYSIS PATIENTS. [id number] 04:34:00 Test Item Value Reference Range Comments PHOSPHORUS (BEAKER) (test kqww=216) 1.6 mg/dL 2.3-4.7 [id number] 04:34:00 Test Item Value Reference Range Comments MAGNESIUM (BEAKER) (test rycg=816) 1.8 mg/dL 1.6-2.6 CBC W/PLT COUNT & AUTO [id number] 04:31:00 Test Item Value Reference Range Comments WHITE BLOOD CELL COUNT (BEAKER) (test iubm=282) 8.4 K/ L 3.5-10.5 RED BLOOD CELL COUNT (BEAKER) (test oleh=857) 2.20 M/ L 4.63-6.08 HEMOGLOBIN (BEAKER) (test acmi=516) 7.3 GM/DL 13.7-17.5 HEMATOCRIT (BEAKER) (test xmgi=762) 23.1 % 40.1-51.0 MEAN CORPUSCULAR VOLUME (BEAKER) (test wpwq=324) 105.0 fL 79.0-92.2 MEAN CORPUSCULAR HEMOGLOBIN (BEAKER) (test 33.2 pg 25.7-32.2 xpzk=279) MEAN CORPUSCULAR HEMOGLOBIN CONC (BEAKER) (test 31.6 GM/DL 32.3-36.5 yopn=473) RED CELL DISTRIBUTION WIDTH (BEAKER) (test 14.8 % 11.6-14.4 twah=321) PLATELET COUNT (BEAKER) (test nhoq=939) 184 K/CU MM 150-450 MEAN PLATELET VOLUME (BEAKER) (test qpsm=652) 10.5 fL 9.4-12.4 NUCLEATED RED BLOOD CELLS (BEAKER) (test 0 /100 WBC 0-0 xqto=086) NEUTROPHILS RELATIVE PERCENT (BEAKER) (test 62 % vbws=822) LYMPHOCYTES RELATIVE PERCENT (BEAKER) (test 20 % untj=582) MONOCYTES RELATIVE PERCENT (BEAKER) (test 12 % dyqd=625) EOSINOPHILS RELATIVE PERCENT (BEAKER) (test 6 % uyyd=486) BASOPHILS RELATIVE PERCENT (BEAKER) (test 1 % uuqq=748) NEUTROPHILS ABSOLUTE COUNT (BEAKER) (test 5.18 K/ L 1.78-5.38 ospr=278) LYMPHOCYTES ABSOLUTE COUNT (BEAKER) (test 1.66 K/ L 1.32-3.57 juho=117) MONOCYTES ABSOLUTE COUNT (BEAKER) (test 0.96 K/ L 0.30-0.82 drcg=948) EOSINOPHILS ABSOLUTE COUNT (BEAKER) (test 0.51 K/ L 0.04-0.54 zhjc=990) BASOPHILS ABSOLUTE COUNT (BEAKER) (test 0.04 K/ L 0.01-0.08 gfxp=015) IMMATURE GRANULOCYTES-RELATIVE PERCENT (BEAKER) 0 % 0-1 (test bpgx=9581) POCT-GLUCOSE [id number] 22:13:00 Test Item Value Reference Range Comments POC-GLUCOSE METER (BEAKER) 197 mg/dL 70-110 TESTED AT [address] (test ufuy=4901) [place] [address] POCT-GLUCOSE [id number] 17:38:00 Test Item Value Reference Range Comments POC-GLUCOSE METER (BEAKER) 229 mg/dL 70-110 TESTED AT [address] (test cbnb=9605) [place] [address] POCT-GLUCOSE [id number] 08:11:00 Test Item Value Reference Range Comments POC-GLUCOSE METER (BEAKER) 148 mg/dL 70-110 TESTED AT [address] (test tawc=6899) [place] [id number] [id number] 07:28:00 Test Item Value Reference Range Comments FERRITIN (BEAKER) (test yshc=331) 414 ng/mL 5-275 IRON, TIBC, % SAT. (WITHOUT FERRITIN)2018-09-02 07:03:00 Test Item Value Reference Range Comments IRON (BEAKER) (test znvj=537) 55.0 ug/dL 40.0-160.0 TOTAL IRON BINDING CAPACITY (BEAKER) (test 148 ug/dL 250-450 khlu=722) IRON % SATURATION (2) (BEAKER) (test dqrp=6755) 37 % 20-55 BASIC METABOLIC [id number] 04:17:00 Test Item Value Reference Range Comments SODIUM (BEAKER) (test 135 meq/L 136-145 cyvb=852) POTASSIUM (BEAKER) (test 4.4 meq/L 3.5-5.1 sior=050) CHLORIDE (BEAKER) (test 101 meq/L 98-107 amje=669) CO2 (BEAKER) (test 26 meq/L 22-29 gsoy=624) BLOOD UREA NITROGEN 29 mg/dL 7-21 (BEAKER) (test xdnn=559) CREATININE (BEAKER) (test 5.20 mg/dL 0.57-1.25 kejw=524) GLUCOSE RANDOM (BEAKER) 119 mg/dL 70-105 (test ufzw=973) CALCIUM (BEAKER) (test 8.4 mg/dL 8.4-10.2 zprm=915) EGFR (BEAKER) (test 11 mL/min/1.73 sq m ESTIMATED GFR IS NOT nbsk=3870) ACCURATE CREATININE CLEARANCE IN PREDICTING GLOMERULAR FILTRATION RATE. ESTIMATED GFR IS NOT APPLICABLE FOR DIALYSIS PATIENTS. CBC W/PLT COUNT & AUTO [id number] 04:13:00 Test Item Value Reference Range Comments WHITE BLOOD CELL COUNT (BEAKER) (test ohej=762) 8.1 K/ L 3.5-10.5 RED BLOOD CELL COUNT (BEAKER) (test ibsz=554) 2.19 M/ L 4.63-6.08 HEMOGLOBIN (BEAKER) (test qsza=775) 7.3 GM/DL 13.7-17.5 HEMATOCRIT (BEAKER) (test ujad=877) 23.1 % 40.1-51.0 MEAN CORPUSCULAR VOLUME (BEAKER) (test vfhe=976) 105.5 fL 79.0-92.2 MEAN CORPUSCULAR HEMOGLOBIN (BEAKER) (test 33.3 pg 25.7-32.2 lzvj=677) MEAN CORPUSCULAR HEMOGLOBIN CONC (BEAKER) (test 31.6 GM/DL 32.3-36.5 khtt=705) RED CELL DISTRIBUTION WIDTH (BEAKER) (test 14.7 % 11.6-14.4 darj=683) PLATELET COUNT (BEAKER) (test tvvw=148) 168 K/CU MM 150-450 MEAN PLATELET VOLUME (BEAKER) (test hkin=411) 11.4 fL 9.4-12.4 NUCLEATED RED BLOOD CELLS (BEAKER) (test 0 /100 WBC 0-0 exgj=861) NEUTROPHILS RELATIVE PERCENT (BEAKER) (test 63 % hglc=651) LYMPHOCYTES RELATIVE PERCENT (BEAKER) (test 17 % iqcu=340) MONOCYTES RELATIVE PERCENT (BEAKER) (test 9 % qsgj=594) EOSINOPHILS RELATIVE PERCENT (BEAKER) (test 10 % dnba=258) BASOPHILS RELATIVE PERCENT (BEAKER) (test 0 % cfvb=509) NEUTROPHILS ABSOLUTE COUNT (BEAKER) (test 5.13 K/ L 1.78-5.38 bssw=106) LYMPHOCYTES ABSOLUTE COUNT (BEAKER) (test 1.40 K/ L 1.32-3.57 qwzb=412) MONOCYTES ABSOLUTE COUNT (BEAKER) (test 0.72 K/ L 0.30-0.82 uoqk=227) EOSINOPHILS ABSOLUTE COUNT (BEAKER) (test 0.81 K/ L 0.04-0.54 rllp=980) BASOPHILS ABSOLUTE COUNT (BEAKER) (test 0.03 K/ L 0.01-0.08 igch=574) IMMATURE GRANULOCYTES-RELATIVE PERCENT (BEAKER) 0 % 0-1 (test cdws=9635) [id number] 04:11:00 Test Item Value Reference Range Comments PHOSPHORUS (BEAKER) (test lzew=867) 3.5 mg/dL 2.3-4.7 [id number] 04:11:00 Test Item Value Reference Range Comments MAGNESIUM (BEAKER) (test bskx=301) 2.2 mg/dL 1.6-2.6 POCT-GLUCOSE [id number] 21:35:00 Test Item Value Reference Range Comments POC-GLUCOSE METER (BEAKER) 165 mg/dL 70-110 TESTED AT [address] (test udps=1002) [facility] [address] POCT-GLUCOSE [id number] 17:33:00 Test Item Value Reference Range Comments POC-GLUCOSE METER (BEAKER) 200 mg/dL 70-110 TESTED AT [address] (test hylw=7183) [facility] [address] POCT-GLUCOSE [id number] 13:15:00 Test Item Value Reference Range Comments POC-GLUCOSE METER (BEAKER) 188 mg/dL 70-110 TESTED AT [address] (test bqiy=8325) [facility] [address] POCT-GLUCOSE [id number] 09:59:00 Test Item Value Reference Range Comments POC-GLUCOSE METER (BEAKER) 214 mg/dL 70-110 TESTED AT [address] (test nlct=5674) [place] [address] CBC W/PLT COUNT & AUTO [id number] 07:15:00 Test Item Value Reference Range Comments WHITE BLOOD CELL COUNT (BEAKER) (test skrr=855) 7.6 K/ L 3.5-10.5 RED BLOOD CELL COUNT (BEAKER) (test audy=804) 2.26 M/ L 4.63-6.08 HEMOGLOBIN (BEAKER) (test xexv=187) 7.6 GM/DL 13.7-17.5 HEMATOCRIT (BEAKER) (test hzlb=602) 24.1 % 40.1-51.0 MEAN CORPUSCULAR VOLUME (BEAKER) (test rubd=509) 106.6 fL 79.0-92.2 MEAN CORPUSCULAR HEMOGLOBIN (BEAKER) (test 33.6 pg 25.7-32.2 btla=398) MEAN CORPUSCULAR HEMOGLOBIN CONC (BEAKER) (test 31.5 GM/DL 32.3-36.5 kjws=161) RED CELL DISTRIBUTION WIDTH (BEAKER) (test 14.6 % 11.6-14.4 srdm=187) PLATELET COUNT (BEAKER) (test szcy=601) 155 K/CU MM 150-450 MEAN PLATELET VOLUME (BEAKER) (test vbfm=449) 11.7 fL 9.4-12.4 NUCLEATED RED BLOOD CELLS (BEAKER) (test 0 /100 WBC 0-0 gdjq=152) NEUTROPHILS RELATIVE PERCENT (BEAKER) (test 64 % yqnm=970) LYMPHOCYTES RELATIVE PERCENT (BEAKER) (test 14 % ryjg=082) MONOCYTES RELATIVE PERCENT (BEAKER) (test 11 % qfrh=158) EOSINOPHILS RELATIVE PERCENT (BEAKER) (test 10 % pwmz=628) BASOPHILS RELATIVE PERCENT (BEAKER) (test 1 % tnjr=941) NEUTROPHILS ABSOLUTE COUNT (BEAKER) (test 4.88 K/ L 1.78-5.38 ksue=396) LYMPHOCYTES ABSOLUTE COUNT (BEAKER) (test 1.04 K/ L 1.32-3.57 lmcx=170) MONOCYTES ABSOLUTE COUNT (BEAKER) (test 0.82 K/ L 0.30-0.82 msqe=382) EOSINOPHILS ABSOLUTE COUNT (BEAKER) (test 0.77 K/ L 0.04-0.54 eitl=109) BASOPHILS ABSOLUTE COUNT (BEAKER) (test 0.04 K/ L 0.01-0.08 uvoc=695) IMMATURE GRANULOCYTES-RELATIVE PERCENT (BEAKER) 0 % 0-1 (test bxsf=5370) BASIC METABOLIC [id number] 06:48:00 Test Item Value Reference Range Comments SODIUM (BEAKER) (test 133 meq/L 136-145 hhog=898) POTASSIUM (BEAKER) (test 3.4 meq/L 3.5-5.1 dvdv=067) CHLORIDE (BEAKER) (test 99 meq/L 98-107 tqqb=675) CO2 (BEAKER) (test 27 meq/L 22-29 qqes=250) BLOOD UREA NITROGEN 20 mg/dL 7-21 (BEAKER) (test ieos=181) CREATININE (BEAKER) (test 4.24 mg/dL 0.57-1.25 vltf=083) GLUCOSE RANDOM (BEAKER) 165 mg/dL 70-105 (test ruun=104) CALCIUM (BEAKER) (test 8.4 mg/dL 8.4-10.2 cnpf=422) EGFR (BEAKER) (test 14 mL/min/1.73 sq m ESTIMATED GFR IS NOT ygxh=9137) ACCURATE CREATININE CLEARANCE IN PREDICTING GLOMERULAR FILTRATION RATE. ESTIMATED GFR IS NOT APPLICABLE FOR DIALYSIS PATIENTS. [id number] 06:43:00 Test Item Value Reference Range Comments PHOSPHORUS (BEAKER) (test fprb=497) 1.7 mg/dL 2.3-4.7 [id number] 06:43:00 Test Item Value Reference Range Comments MAGNESIUM (BEAKER) (test gobo=874) 1.9 mg/dL 1.6-2.6 POCT-GLUCOSE [id number] 06:32:00 Test Item Value Reference Range Comments POC-GLUCOSE METER (BEAKER) 201 mg/dL 70-110 TESTED AT [address] (test rwjp=9976) [facility] [address] POCT-GLUCOSE [id number] 17:39:00 Test Item Value Reference Range Comments POC-GLUCOSE METER (BEAKER) 206 mg/dL 70-110 TESTED AT [address] (test hlaz=7241) [facility] [address] POCT-GLUCOSE [id number] 12:46:00 Test Item Value Reference Range Comments POC-GLUCOSE METER (BEAKER) 191 mg/dL 70-[address] [facility] [address] [facility] (test eurb=6037) [facility] [address] POCT-GLUCOSE [id number] 09:46:00 Test Item Value Reference Range Comments POC-GLUCOSE METER (BEAKER) 105 mg/dL 70-[address] [facility] [address] [facility] (test ukok=9111) [facility] [address] POCT-GLUCOSE [id number] 08:34:00 Test Item Value Reference Range Comments POC-GLUCOSE METER (BEAKER) 145 mg/dL 70-[address] [facility] [address] [facility] (test qays=2464) [facility] [address] TROPONIN [id number] 04:58:00 Test Item Value Reference Range Comments TROPONIN I (BEAKER) (test tuxe=181) 0.07 ng/mL 0.00-0.03 Troponin I (TnI) levels [...] acute neurological disease, and persistent tachyarrhythmia.BASIC METABOLIC [id number] 04:54:00 Test Item Value Reference Range Comments SODIUM (BEAKER) (test 135 meq/L 136-145 qjpn=787) POTASSIUM (BEAKER) (test 3.9 meq/L 3.5-5.1 gidg=102) CHLORIDE (BEAKER) (test 100 meq/L 98-107 grah=372) CO2 (BEAKER) (test 27 meq/L 22-29 gefa=284) BLOOD UREA NITROGEN 12 mg/dL 7-21 (BEAKER) (test mjpp=308) CREATININE (BEAKER) (test 2.68 mg/dL 0.57-1.25 ymtj=693) GLUCOSE RANDOM (BEAKER) 132 mg/dL 70-105 (test uswd=654) CALCIUM (BEAKER) (test 8.6 mg/dL 8.4-10.2 bqko=338) EGFR (BEAKER) (test 23 mL/min/1.73 sq m ESTIMATED GFR IS NOT graz=4055) ACCURATE CREATININE CLEARANCE IN PREDICTING GLOMERULAR FILTRATION RATE. ESTIMATED GFR IS NOT APPLICABLE FOR DIALYSIS PATIENTS. [id number] 04:50:00 Test Item Value Reference Range Comments PHOSPHORUS (BEAKER) (test sdxz=849) 2.0 mg/dL 2.3-4.7 [id number] 04:50:00 Test Item Value Reference Range Comments MAGNESIUM (BEAKER) (test higs=175) 1.8 mg/dL 1.6-2.6 CBC W/PLT COUNT & AUTO [id number] 04:27:00 Test Item Value Reference Range Comments WHITE BLOOD CELL COUNT (BEAKER) (test dwtp=501) 7.8 K/ L 3.5-10.5 RED BLOOD CELL COUNT (BEAKER) (test menf=440) 2.63 M/ L 4.63-6.08 HEMOGLOBIN (BEAKER) (test jyki=244) 8.6 GM/DL 13.7-17.5 HEMATOCRIT (BEAKER) (test fsnu=267) 27.3 % 40.1-51.0 MEAN CORPUSCULAR VOLUME (BEAKER) (test nvhn=372) 103.8 fL 79.0-92.2 MEAN CORPUSCULAR HEMOGLOBIN (BEAKER) (test 32.7 pg 25.7-32.2 tpyq=093) MEAN CORPUSCULAR HEMOGLOBIN CONC (BEAKER) (test 31.5 GM/DL 32.3-36.5 atdc=112) RED CELL DISTRIBUTION WIDTH (BEAKER) (test 14.3 % 11.6-14.4 aopi=078) PLATELET COUNT (BEAKER) (test zlhh=366) 156 K/CU MM 150-450 MEAN PLATELET VOLUME (BEAKER) (test psej=413) 11.0 fL 9.4-12.4 NUCLEATED RED BLOOD CELLS (BEAKER) (test 0 /100 WBC 0-0 tgnw=256) NEUTROPHILS RELATIVE PERCENT (BEAKER) (test 77 % ilvy=488) LYMPHOCYTES RELATIVE PERCENT (BEAKER) (test 8 % kytc=126) MONOCYTES RELATIVE PERCENT (BEAKER) (test 9 % gtky=800) EOSINOPHILS RELATIVE PERCENT (BEAKER) (test 5 % kdau=215) BASOPHILS RELATIVE PERCENT (BEAKER) (test 1 % yauo=245) NEUTROPHILS ABSOLUTE COUNT (BEAKER) (test 5.98 K/ L 1.78-5.38 dgqk=893) LYMPHOCYTES ABSOLUTE COUNT (BEAKER) (test 0.62 K/ L 1.32-3.57 czcw=230) MONOCYTES ABSOLUTE COUNT (BEAKER) (test 0.72 K/ L 0.30-0.82 zzam=180) EOSINOPHILS ABSOLUTE COUNT (BEAKER) (test 0.35 K/ L 0.04-0.54 uplu=633) BASOPHILS ABSOLUTE COUNT (BEAKER) (test 0.05 K/ L 0.01-0.08 iizq=911) IMMATURE GRANULOCYTES-RELATIVE PERCENT (BEAKER) 1 % 0-1 (test dwyn=8335) TROPONIN [id number] 23:54:00 Test Item Value Reference Range Comments TROPONIN I (BEAKER) (test rapd=839) 0.06 ng/mL 0.00-0.03 Troponin I (TnI) levels [...] acidosis, acute neurological disease, and persistent tachyarrhythmia.POCT-GLUCOSE [id number] 21:10:00 Test Item Value Reference Range Comments POC-GLUCOSE METER (BEAKER) 118 mg/dL 70-[address] [facility] [address] [facility] (test iuev=6192) [facility] [id number] TROPONIN [id number] 19:00:00 Test Item Value Reference Range Comments TROPONIN I (BEAKER) (test wrus=038) 0.05 ng/mL 0.00-0.03 Troponin I (TnI) levels [...] acidosis, acute neurological disease, and persistent tachyarrhythmia.POCT-GLUCOSE [id number] 18:30:00 Test Item Value Reference Range Comments POC-GLUCOSE METER (BEAKER) 134 mg/dL 70-[address] [facility] [address] (test bkmw=9882) [facility] [id number] TROPONIN [id number] 17:24:00 Test Item Value Reference Range Comments TROPONIN I (BEAKER) (test yuzk=119) 0.06 ng/mL 0.00-0.03 Troponin I (TnI) levels [...] acute neurological disease, and persistent tachyarrhythmia.BASIC METABOLIC [id number] 17:17:00 Test Item Value Reference Range Comments SODIUM (BEAKER) (test 132 meq/L 136-145 xujd=893) POTASSIUM (BEAKER) (test 4.3 meq/L 3.5-5.1 kpee=201) CHLORIDE (BEAKER) (test 98 meq/L 98-107 weup=033) CO2 (BEAKER) (test 24 meq/L 22-29 ugnc=663) BLOOD UREA NITROGEN 31 mg/dL 7-21 (BEAKER) (test swkc=721) CREATININE (BEAKER) (test 5.30 mg/dL 0.57-1.25 xogc=214) GLUCOSE RANDOM (BEAKER) 142 mg/dL 70-105 (test gzeh=472) CALCIUM (BEAKER) (test 9.1 mg/dL 8.4-10.2 gdky=870) EGFR (BEAKER) (test 11 mL/min/1.73 sq m ESTIMATED GFR IS NOT wuao=9300) ACCURATE CREATININE CLEARANCE IN PREDICTING GLOMERULAR FILTRATION RATE. ESTIMATED GFR IS NOT APPLICABLE FOR DIALYSIS PATIENTS. [id number] 17:16:00 Test Item Value Reference Range Comments PHOSPHORUS (BEAKER) (test mhic=314) 2.5 mg/dL 2.3-4.7 [id number] 17:16:00 Test Item Value Reference Range Comments MAGNESIUM (BEAKER) (test tzfe=084) 1.8 mg/dL 1.6-2.6 BASIC METABOLIC [id number] 13:14:00 Test Item Value Reference Range Comments SODIUM (BEAKER) (test 132 meq/L 136-145 japz=498) POTASSIUM (BEAKER) (test 4.2 meq/L 3.5-5.1 qhrm=865) CHLORIDE (BEAKER) (test 99 meq/L 98-107 ktlg=728) CO2 (BEAKER) (test 26 meq/L 22-29 xnfc=845) BLOOD UREA NITROGEN 29 mg/dL 7-21 (BEAKER) (test rrxx=080) CREATININE (BEAKER) (test 4.83 mg/dL 0.57-1.25 rccv=089) GLUCOSE RANDOM (BEAKER) 124 mg/dL 70-105 (test xcas=044) CALCIUM (BEAKER) (test 8.7 mg/dL 8.4-10.2 nkxt=846) EGFR (BEAKER) (test 12 mL/min/1.73 sq m ESTIMATED GFR IS NOT jbnh=3798) ACCURATE CREATININE CLEARANCE IN PREDICTING GLOMERULAR FILTRATION RATE. ESTIMATED GFR IS NOT APPLICABLE FOR DIALYSIS PATIENTS. CBC W/PLT COUNT & AUTO [id number] 12:49:00 Test Item Value Reference Range Comments WHITE BLOOD CELL COUNT (BEAKER) (test ptwf=401) 10.7 K/ L 3.5-10.5 RED BLOOD CELL COUNT (BEAKER) (test mwug=411) 2.74 M/ L 4.63-6.08 HEMOGLOBIN (BEAKER) (test zmwk=351) 9.3 GM/DL 13.7-17.5 HEMATOCRIT (BEAKER) (test qfvy=516) 28.4 % 40.1-51.0 MEAN CORPUSCULAR VOLUME (BEAKER) (test wjag=221) 103.6 fL 79.0-92.2 MEAN CORPUSCULAR HEMOGLOBIN (BEAKER) (test 33.9 pg 25.7-32.2 ckec=807) MEAN CORPUSCULAR HEMOGLOBIN CONC (BEAKER) (test 32.7 GM/DL 32.3-36.5 bxcb=778) RED CELL DISTRIBUTION WIDTH (BEAKER) (test 14.0 % 11.6-14.4 sakv=377) PLATELET COUNT (BEAKER) (test xtrm=821) 163 K/CU MM 150-450 MEAN PLATELET VOLUME (BEAKER) (test pbxc=044) 10.9 fL 9.4-12.4 NUCLEATED RED BLOOD CELLS (BEAKER) (test 0 /100 WBC 0-0 azfi=860) NEUTROPHILS RELATIVE PERCENT (BEAKER) (test 81 % zzwk=063) LYMPHOCYTES RELATIVE PERCENT (BEAKER) (test 9 % fjyb=005) MONOCYTES RELATIVE PERCENT (BEAKER) (test 1 % jryn=484) EOSINOPHILS RELATIVE PERCENT (BEAKER) (test 5 % vrkv=966) BASOPHILS RELATIVE PERCENT (BEAKER) (test 0 % nhux=450) NEUTROPHILS ABSOLUTE COUNT (BEAKER) (test 8.71 K/ L 1.78-5.38 qjbn=821) LYMPHOCYTES ABSOLUTE COUNT (BEAKER) (test 0.94 K/ L 1.32-3.57 glqh=240) MONOCYTES ABSOLUTE COUNT (BEAKER) (test 0.13 K/ L 0.30-0.82 plkm=185) EOSINOPHILS ABSOLUTE COUNT (BEAKER) (test 0.53 K/ L 0.04-0.54 fnbr=529) BASOPHILS ABSOLUTE COUNT (BEAKER) (test 0.04 K/ L 0.01-0.08 oqit=409) IMMATURE GRANULOCYTES-RELATIVE PERCENT (BEAKER) 4 % 0-1 (test smqr=6205) BLOOD GAS, [id number] 11:37:00 Test Item Value Reference Range Comments PH ARTERIAL (BEAKER) (test kahk=709) 7.43 7.35-7.45 PCO2 ARTERIAL (BEAKER) (test soxh=920) 41 mmHg 35-45 PO2 ARTERIAL (BEAKER) (test sept=296) 297 mmHg 80-90 O2 SATURATION ARTERIAL (BEAKER) (test xwll=173) 99.7 % 96.0-97.0 HCO3 ARTERIAL (BEAKER) (test lejg=915) 27 mmol/L 21-29 BASE EXCESS ARTERIAL (BEAKER) (test fjsr=390) 2.0 mmol/L -2.0-3.0 PATIENT TEMPERATURE (BEAKER) (test lofk=5101) 35.1 C FIO2 (BEAKER) (test psug=1412) 100.0 % GLUCOSE-STAT [id number] 11:37:00 Test Item Value Reference Range Comments GLUCOSE RANDOM (BEAKER) (test rmvx=254) 112 mg/dL 70-110 SODIUM NA-STAT [id number] 11:37:00 Test Item Value Reference Range Comments SODIUM (BEAKER) (test zlwg=219) 130 meq/L 135-148 HGB/HCT (H&H) - STAT [id number] 11:37:00 Test Item Value Reference Range Comments HEMOGLOBIN (BEAKER) (test cdcb=105) 9.9 g/dL 13.0-16.8 HEMATOCRIT (BEAKER) (test itsj=073) 29.0 % 40.0-50.0 [id number] 11:35:00 Test Item Value Reference Range Comments ACTIVATED CLOTTING TIME [address] [facility] [address] (BEAKER) (test gmvg=025) [place] [id number] POTASSIUM-STAT [id number] 11:35:00 Test Item Value Reference Range Comments POTASSIUM (BEAKER) (test apfi=399) 4.0 meq/L 3.6-5.5 [id number] 11:35:00 Test Item Value Reference Range Comments ACTIVATED CLOTTING TIME 224 sec TESTED AT [place] [address] [address] (BEAKER) (test uutx=804) [place] [id number] 11:35:00 Test Item Value Reference Range Comments ACTIVATED CLOTTING TIME 241 sec TESTED AT [place] [address] [address] (BEAKER) (test vypa=735) [place] [id number] POCT-GLUCOSE [id number] 06:01:00 Test Item Value Reference Range Comments POC-GLUCOSE METER (BEAKER) 119 mg/dL 70-110 TESTED AT [address] (test hxri=3835) [place] [id number] BASIC METABOLIC [id number] 03:31:00 Test Item Value Reference Range Comments SODIUM (BEAKER) (test 133 meq/L 136-145 nmmw=269) POTASSIUM (BEAKER) (test 4.2 meq/L 3.5-5.1 qaay=790) CHLORIDE (BEAKER) (test 96 meq/L 98-107 rguq=626) CO2 (BEAKER) (test 29 meq/L 22-29 upzo=604) BLOOD UREA NITROGEN 28 mg/dL 7-21 (BEAKER) (test hmup=679) CREATININE (BEAKER) (test 4.83 mg/dL 0.57-1.25 pker=168) GLUCOSE RANDOM (BEAKER) 128 mg/dL 70-105 (test zwav=340) CALCIUM (BEAKER) (test 8.8 mg/dL 8.4-10.2 htrm=702) EGFR (BEAKER) (test 12 mL/min/1.73 sq m ESTIMATED GFR IS NOT zqjw=8495) ACCURATE CREATININE CLEARANCE IN PREDICTING GLOMERULAR FILTRATION RATE. ESTIMATED GFR IS NOT APPLICABLE FOR DIALYSIS PATIENTS. BASIC METABOLIC [id number] 03:31:00 Test Item Value Reference Range Comments SODIUM (BEAKER) (test 133 meq/L 136-145 nvoy=200) POTASSIUM (BEAKER) (test 4.2 meq/L 3.5-5.1 zamq=806) CHLORIDE (BEAKER) (test 96 meq/L 98-107 iznf=070) CO2 (BEAKER) (test 29 meq/L 22-29 buot=681) BLOOD UREA NITROGEN 28 mg/dL 7-21 (BEAKER) (test pwkg=780) CREATININE (BEAKER) (test 4.84 mg/dL 0.57-1.25 okth=924) GLUCOSE RANDOM (BEAKER) 128 mg/dL 70-105 (test lwxd=114) CALCIUM (BEAKER) (test 8.9 mg/dL 8.4-10.2 sgtj=407) EGFR (BEAKER) (test 12 mL/min/1.73 sq m ESTIMATED GFR IS NOT uess=5873) ACCURATE CREATININE CLEARANCE IN PREDICTING GLOMERULAR FILTRATION RATE. ESTIMATED GFR IS NOT APPLICABLE FOR DIALYSIS PATIENTS. [id number] 03:25:00 Test Item Value Reference Range Comments PHOSPHORUS (BEAKER) (test zcfs=888) 2.4 mg/dL 2.3-4.7 [id number] 03:25:00 Test Item Value Reference Range Comments MAGNESIUM (BEAKER) (test pape=696) 1.9 mg/dL 1.6-2.6 CALCIUM, [id number] 03:22:00 Test Item Value Reference Range Comments CALCIUM IONIZED (BEAKER) (test pnug=057) 1.07 mmol/L 1.12-1.27 PH, BLOOD (BEAKER) (test xwnn=6192) 7.43 PROTHROMBIN [id number] 03:22:00 Test Item Value Reference Range Comments PROTIME (BEAKER) (test pjed=707) 14.9 seconds 11.7-14.7 INR (BEAKER) (test gypz=406) 1.2 <=5.9 RECOMMENDED COUMADIN/WARFARIN INR THERAPY RANGESSTANDARD DOSE: 2.0 - 3.0 Includes: PROPHYLAXIS forvenous thrombosis, systemic embolization; TREATMENT for venous thrombosis and/or pulmonary embolus.HIGH RISK: Target INR is 2.5-3.5 for patients with mechanical heart valves.CBC W/PLT COUNT & AUTO [id number] 03:07:00 Test Item Value Reference Range Comments WHITE BLOOD CELL COUNT (BEAKER) (test rdlx=767) 8.2 K/ L 3.5-10.5 RED BLOOD CELL COUNT (BEAKER) (test bbsd=722) 2.65 M/ L 4.63-6.08 HEMOGLOBIN (BEAKER) (test oiio=048) 8.8 GM/DL 13.7-17.5 HEMATOCRIT (BEAKER) (test ufxq=863) 27.2 % 40.1-51.0 MEAN CORPUSCULAR VOLUME (BEAKER) (test mexo=294) 102.6 fL 79.0-92.2 MEAN CORPUSCULAR HEMOGLOBIN (BEAKER) (test 33.2 pg 25.7-32.2 egyd=165) MEAN CORPUSCULAR HEMOGLOBIN CONC (BEAKER) (test 32.4 GM/DL 32.3-36.5 gfde=824) RED CELL DISTRIBUTION WIDTH (BEAKER) (test 13.6 % 11.6-14.4 lnob=128) PLATELET COUNT (BEAKER) (test ijjg=766) 173 K/CU MM 150-450 MEAN PLATELET VOLUME (BEAKER) (test zvtu=410) 11.1 fL 9.4-12.4 NUCLEATED RED BLOOD CELLS (BEAKER) (test 0 /100 WBC 0-0 nuct=939) NEUTROPHILS RELATIVE PERCENT (BEAKER) (test 68 % didr=796) LYMPHOCYTES RELATIVE PERCENT (BEAKER) (test 15 % gauw=877) MONOCYTES RELATIVE PERCENT (BEAKER) (test 9 % pcdj=190) EOSINOPHILS RELATIVE PERCENT (BEAKER) (test 7 % axfj=038) BASOPHILS RELATIVE PERCENT (BEAKER) (test 1 % ntni=261) NEUTROPHILS ABSOLUTE COUNT (BEAKER) (test 5.57 K/ L 1.78-5.38 hjas=750) LYMPHOCYTES ABSOLUTE COUNT (BEAKER) (test 1.24 K/ L 1.32-3.57 yvvb=865) MONOCYTES ABSOLUTE COUNT (BEAKER) (test 0.70 K/ L 0.30-0.82 emku=793) EOSINOPHILS ABSOLUTE COUNT (BEAKER) (test 0.61 K/ L 0.04-0.54 mscf=398) BASOPHILS ABSOLUTE COUNT (BEAKER) (test 0.05 K/ L 0.01-0.08 wezp=266) IMMATURE GRANULOCYTES-RELATIVE PERCENT (BEAKER) 1 % 0-1 (test nqqd=0674) CBC W/PLT COUNT & AUTO [id number] 03:05:00 Test Item Value Reference Range Comments WHITE BLOOD CELL COUNT (BEAKER) (test nbal=873) 8.3 K/ L 3.5-10.5 RED BLOOD CELL COUNT (BEAKER) (test zdjq=611) 2.71 M/ L 4.63-6.08 HEMOGLOBIN (BEAKER) (test lfsv=919) 8.9 GM/DL 13.7-17.5 HEMATOCRIT (BEAKER) (test khxz=114) 27.9 % 40.1-51.0 MEAN CORPUSCULAR VOLUME (BEAKER) (test pejt=001) 103.0 fL 79.0-92.2 MEAN CORPUSCULAR HEMOGLOBIN (BEAKER) (test 32.8 pg 25.7-32.2 ukfb=503) MEAN CORPUSCULAR HEMOGLOBIN CONC (BEAKER) (test 31.9 GM/DL 32.3-36.5 xvsc=235) RED CELL DISTRIBUTION WIDTH (BEAKER) (test 13.9 % 11.6-14.4 finp=450) PLATELET COUNT (BEAKER) (test qpba=737) 170 K/CU MM 150-450 MEAN PLATELET VOLUME (BEAKER) (test kthq=847) 11.1 fL 9.4-12.4 NUCLEATED RED BLOOD CELLS (BEAKER) (test 0 /100 WBC 0-0 lsnp=559) NEUTROPHILS RELATIVE PERCENT (BEAKER) (test 67 % mqqz=716) LYMPHOCYTES RELATIVE PERCENT (BEAKER) (test 15 % wzlv=209) MONOCYTES RELATIVE PERCENT (BEAKER) (test 9 % kpei=039) EOSINOPHILS RELATIVE PERCENT (BEAKER) (test 8 % qxmn=160) BASOPHILS RELATIVE PERCENT (BEAKER) (test 1 % kuzq=402) NEUTROPHILS ABSOLUTE COUNT (BEAKER) (test 5.61 K/ L 1.78-5.38 nulw=755) LYMPHOCYTES ABSOLUTE COUNT (BEAKER) (test 1.22 K/ L 1.32-3.57 wooc=787) MONOCYTES ABSOLUTE COUNT (BEAKER) (test 0.75 K/ L 0.30-0.82 pvin=918) EOSINOPHILS ABSOLUTE COUNT (BEAKER) (test 0.64 K/ L 0.04-0.54 sjhl=996) BASOPHILS ABSOLUTE COUNT (BEAKER) (test 0.06 K/ L 0.01-0.08 oroc=109) IMMATURE GRANULOCYTES-RELATIVE PERCENT (BEAKER) 1 % 0-1 (test rarx=0514) POCT-GLUCOSE [id number] 02:55:00 Test Item Value Reference Range Comments POC-GLUCOSE METER (BEAKER) 187 mg/dL 70-110 TESTED AT [address] (test gyid=6050) [place] [address] POCT-GLUCOSE [id number] 17:24:00 Test Item Value Reference Range Comments POC-GLUCOSE METER (BEAKER) 153 mg/dL 70-110 TESTED AT [address] (test edkl=3700) [place] [address] POCT-GLUCOSE [id number] 13:20:00 Test Item Value Reference Range Comments POC-GLUCOSE METER (BEAKER) 213 mg/dL 70-110 TESTED AT [address] (test sutz=6601) [place] [address] POCT-GLUCOSE [id number] 11:32:00 Test Item Value Reference Range Comments POC-GLUCOSE METER (BEAKER) 141 mg/dL 70-110 TESTED AT [address] (test evwb=6726) [place] [address] BASIC METABOLIC [id number] 08:25:00 Test Item Value Reference Range Comments SODIUM (BEAKER) (test 137 meq/L 136-145 oosw=553) POTASSIUM (BEAKER) (test 3.9 meq/L 3.5-5.1 zgaf=473) CHLORIDE (BEAKER) (test 99 meq/L 98-107 ywmt=021) CO2 (BEAKER) (test 30 meq/L 22-29 bnjd=896) BLOOD UREA NITROGEN 19 mg/dL 7-21 (BEAKER) (test ivdz=412) CREATININE (BEAKER) (test 3.56 mg/dL 0.57-1.25 krds=138) GLUCOSE RANDOM (BEAKER) 119 mg/dL 70-105 (test rrhi=066) CALCIUM (BEAKER) (test 8.7 mg/dL 8.4-10.2 ucbg=460) EGFR (BEAKER) (test 17 mL/min/1.73 sq m ESTIMATED GFR IS NOT shjc=5062) ACCURATE CREATININE CLEARANCE IN PREDICTING GLOMERULAR FILTRATION RATE. ESTIMATED GFR IS NOT APPLICABLE FOR DIALYSIS PATIENTS. POCT-GLUCOSE [id number] 21:40:00 Test Item Value Reference Range Comments POC-GLUCOSE METER (BEAKER) 190 mg/dL 70-110 TESTED AT [address] (test ybjj=7699) [place] [id number] POCT-GLUCOSE [id number] 18:26:00 Test Item Value Reference Range Comments POC-GLUCOSE METER (BEAKER) 178 mg/dL 70-110 TESTED AT [address] (test ksje=7191) [place] [address] POCT-GLUCOSE [id number] 12:54:00 Test Item Value Reference Range Comments POC-GLUCOSE METER (BEAKER) 159 mg/dL 70-110 TESTED AT [address] (test nlgu=8116) [place] [id number] BASIC METABOLIC [id number] 05:56:00 Test Item Value Reference Range Comments SODIUM (BEAKER) (test 136 meq/L 136-145 wvuq=374) POTASSIUM (BEAKER) (test 4.3 meq/L 3.5-5.1 biyy=041) CHLORIDE (BEAKER) (test 100 meq/L 98-107 tgmf=308) CO2 (BEAKER) (test 28 meq/L 22-29 lpzp=697) BLOOD UREA NITROGEN 37 mg/dL 7-21 (BEAKER) (test tpyo=439) CREATININE (BEAKER) (test 5.04 mg/dL 0.57-1.25 nenp=684) GLUCOSE RANDOM (BEAKER) 113 mg/dL 70-105 (test vfku=491) CALCIUM (BEAKER) (test 8.8 mg/dL 8.4-10.2 ruze=394) EGFR (BEAKER) (test 11 mL/min/1.73 sq m ESTIMATED GFR IS NOT krml=5654) ACCURATE CREATININE CLEARANCE IN PREDICTING GLOMERULAR FILTRATION RATE. ESTIMATED GFR IS NOT APPLICABLE FOR DIALYSIS PATIENTS. [id number] 05:37:00 Test Item Value Reference Range Comments MAGNESIUM (BEAKER) (test edwu=733) 2.1 mg/dL 1.6-2.6 POCT-GLUCOSE [id number] 21:49:00 Test Item Value Reference Range Comments POC-GLUCOSE METER (BEAKER) 194 mg/dL 70-110 TESTED AT [address] (test nvpk=8713) [place] [id number] POCT-GLUCOSE [id number] 18:02:00 Test Item Value Reference Range Comments POC-GLUCOSE METER (BEAKER) 195 mg/dL 70-110 TESTED AT [address] (test yjtj=1549) [place] [id number] POCT-GLUCOSE [id number] 12:09:00 Test Item Value Reference Range Comments POC-GLUCOSE METER (BEAKER) 217 mg/dL 70-110 TESTED AT [address] (test utmy=3472) [place] [address] POCT-GLUCOSE [id number] 10:36:00 Test Item Value Reference Range Comments POC-GLUCOSE METER (BEAKER) 121 mg/dL 70-110 TESTED AT [address] (test qqtv=1685) [place] [address] POCT-GLUCOSE [id number] 10:36:00 Test Item Value Reference Range Comments POC-GLUCOSE METER (BEAKER) 100 mg/dL 70-110 TESTED AT [address] (test pzjc=9586) [place] [address] POCT-GLUCOSE [id number] 08:27:00 Test Item Value Reference Range Comments POC-GLUCOSE METER (BEAKER) 112 mg/dL 70-110 TESTED AT [address] (test dzom=1358) [place] [id number] BASIC METABOLIC [id number] 06:18:00 Test Item Value Reference Range Comments SODIUM (BEAKER) (test 139 meq/L 136-145 rpbc=083) POTASSIUM (BEAKER) (test 4.1 meq/L 3.5-5.1 yynn=114) CHLORIDE (BEAKER) (test 104 meq/L 98-107 haml=123) CO2 (BEAKER) (test 29 meq/L 22-29 mcmf=672) BLOOD UREA NITROGEN 26 mg/dL 7-21 (BEAKER) (test dzrl=101) CREATININE (BEAKER) (test 3.93 mg/dL 0.57-1.25 kqhd=167) GLUCOSE RANDOM (BEAKER) 104 mg/dL 70-105 (test wwkx=242) CALCIUM (BEAKER) (test 8.5 mg/dL 8.4-10.2 elol=023) EGFR (BEAKER) (test 15 mL/min/1.73 sq m ESTIMATED GFR IS NOT ozel=7874) ACCURATE CREATININE CLEARANCE IN PREDICTING GLOMERULAR FILTRATION RATE. ESTIMATED GFR IS NOT APPLICABLE FOR DIALYSIS PATIENTS. [id number] 06:17:00 Test Item Value Reference Range Comments PHOSPHORUS (BEAKER) (test gpsj=026) 2.5 mg/dL 2.3-4.7 [id number] 06:17:00 Test Item Value Reference Range Comments MAGNESIUM (BEAKER) (test xblv=258) 2.0 mg/dL 1.6-2.6 CBC W/PLT COUNT & AUTO [id number] 05:48:00 Test Item Value Reference Range Comments WHITE BLOOD CELL COUNT (BEAKER) (test fids=899) 7.0 K/ L 3.5-10.5 RED BLOOD CELL COUNT (BEAKER) (test erpx=106) 2.74 M/ L 4.63-6.08 HEMOGLOBIN (BEAKER) (test eptq=128) 9.0 GM/DL 13.7-17.5 HEMATOCRIT (BEAKER) (test jvmb=789) 27.9 % 40.1-51.0 MEAN CORPUSCULAR VOLUME (BEAKER) (test ytof=912) 101.8 fL 79.0-92.2 MEAN CORPUSCULAR HEMOGLOBIN (BEAKER) (test 32.8 pg 25.7-32.2 acus=349) MEAN CORPUSCULAR HEMOGLOBIN CONC (BEAKER) (test 32.3 GM/DL 32.3-36.5 ukaq=654) RED CELL DISTRIBUTION WIDTH (BEAKER) (test 13.4 % 11.6-14.4 hdmy=540) PLATELET COUNT (BEAKER) (test xpuj=422) 165 K/CU MM 150-450 MEAN PLATELET VOLUME (BEAKER) (test wwkp=871) 11.5 fL 9.4-12.4 NUCLEATED RED BLOOD CELLS (BEAKER) (test 0 /100 WBC 0-0 ayhs=602) NEUTROPHILS RELATIVE PERCENT (BEAKER) (test 62 % qtgd=749) LYMPHOCYTES RELATIVE PERCENT (BEAKER) (test 21 % ezio=607) MONOCYTES RELATIVE PERCENT (BEAKER) (test 11 % vcbq=006) EOSINOPHILS RELATIVE PERCENT (BEAKER) (test 5 % ngli=332) BASOPHILS RELATIVE PERCENT (BEAKER) (test 1 % iaxv=356) NEUTROPHILS ABSOLUTE COUNT (BEAKER) (test 4.35 K/ L 1.78-5.38 ojwb=835) LYMPHOCYTES ABSOLUTE COUNT (BEAKER) (test 1.44 K/ L 1.32-3.57 tohb=180) MONOCYTES ABSOLUTE COUNT (BEAKER) (test 0.78 K/ L 0.30-0.82 qvjv=927) EOSINOPHILS ABSOLUTE COUNT (BEAKER) (test 0.35 K/ L 0.04-0.54 moft=702) BASOPHILS ABSOLUTE COUNT (BEAKER) (test 0.07 K/ L 0.01-0.08 igmy=289) IMMATURE GRANULOCYTES-RELATIVE PERCENT (BEAKER) 1 % 0-1 (test thbi=0704) POCT-GLUCOSE [id number] 21:14:00 Test Item Value Reference Range Comments POC-GLUCOSE METER (BEAKER) 188 mg/dL 70-110 TESTED AT [address] (test xdds=2214) [place] [id number] POCT-GLUCOSE [id number] 17:16:00 Test Item Value Reference Range Comments POC-GLUCOSE METER (BEAKER) 199 mg/dL 70-110 TESTED AT [address] (test ayvf=1648) [place] [address] POCT-GLUCOSE [id number] 12:41:00 Test Item Value Reference Range Comments POC-GLUCOSE METER (BEAKER) 136 mg/dL 70-110 TESTED AT [address] (test aoel=1687) [place] [id number] CALCIUM, [id number] 08:02:00 Test Item Value Reference Range Comments CALCIUM IONIZED (BEAKER) (test jgio=318) 1.08 mmol/L 1.12-1.27 PH, BLOOD (BEAKER) (test pxie=3119) 7.42 COMPREHENSIVE METABOLIC [id number] 07:00:00 Test Item Value Reference Range Comments TOTAL PROTEIN (BEAKER) 6.5 gm/dL 6.0-8.3 (test wdtr=847) ALBUMIN (BEAKER) (test 2.4 g/dL 3.5-5.0 qoiv=9531) ALKALINE PHOSPHATASE 78 U/L 40-150 (BEAKER) (test tzgz=701) BILIRUBIN TOTAL (BEAKER) 0.4 mg/dL 0.2-1.2 (test yaqs=213) SODIUM (BEAKER) (test 129 meq/L 136-145 vxrc=252) POTASSIUM (BEAKER) (test 4.9 meq/L 3.5-5.1 fndn=206) CHLORIDE (BEAKER) (test 93 meq/L 98-107 wgln=141) CO2 (BEAKER) (test 26 meq/L 22-29 pcyl=664) BLOOD UREA NITROGEN 50 mg/dL 7-21 (BEAKER) (test qlxs=340) CREATININE (BEAKER) (test 6.18 mg/dL 0.57-1.25 ssoe=711) GLUCOSE RANDOM (BEAKER) 104 mg/dL 70-105 (test hjms=384) CALCIUM (BEAKER) (test 8.9 mg/dL 8.4-10.2 tqxq=701) AST (SGOT) (BEAKER) (test 22 U/L 5-34 watf=978) ALT (SGPT) (BEAKER) (test < U/L 6-55 larh=377) EGFR (BEAKER) (test 9 mL/min/1.73 sq m ESTIMATED GFR IS NOT ulhk=9071) ACCURATE CREATININE CLEARANCE IN PREDICTING GLOMERULAR FILTRATION RATE. ESTIMATED GFR IS NOT APPLICABLE FOR DIALYSIS PATIENTS. [id number] 06:55:00 Test Item Value Reference Range Comments PHOSPHORUS (BEAKER) (test mqzp=357) 4.1 mg/dL 2.3-4.7 [id number] 06:55:00 Test Item Value Reference Range Comments MAGNESIUM (BEAKER) (test vtos=693) 2.2 mg/dL 1.6-2.6 CBC W/PLT COUNT & AUTO [id number] 06:21:00 Test Item Value Reference Range Comments WHITE BLOOD CELL COUNT (BEAKER) (test ckto=188) 7.9 K/ L 3.5-10.5 RED BLOOD CELL COUNT (BEAKER) (test mteo=856) 3.13 M/ L 4.63-6.08 HEMOGLOBIN (BEAKER) (test ksnp=807) 10.3 GM/DL 13.7-17.5 HEMATOCRIT (BEAKER) (test igxy=154) 31.0 % 40.1-51.0 MEAN CORPUSCULAR VOLUME (BEAKER) (test djlz=533) 99.0 fL 79.0-92.2 MEAN CORPUSCULAR HEMOGLOBIN (BEAKER) (test 32.9 pg 25.7-32.2 ttfq=042) MEAN CORPUSCULAR HEMOGLOBIN CONC (BEAKER) (test 33.2 GM/DL 32.3-36.5 wewe=086) RED CELL DISTRIBUTION WIDTH (BEAKER) (test 13.2 % 11.6-14.4 vbfa=410) PLATELET COUNT (BEAKER) (test xkhl=998) 181 K/CU MM 150-450 MEAN PLATELET VOLUME (BEAKER) (test saui=071) 11.1 fL 9.4-12.4 NUCLEATED RED BLOOD CELLS (BEAKER) (test 0 /100 WBC 0-0 xnxk=945) NEUTROPHILS RELATIVE PERCENT (BEAKER) (test 69 % jvrb=148) LYMPHOCYTES RELATIVE PERCENT (BEAKER) (test 15 % qsjb=507) MONOCYTES RELATIVE PERCENT (BEAKER) (test 10 % fxlr=429) EOSINOPHILS RELATIVE PERCENT (BEAKER) (test 5 % ercu=085) BASOPHILS RELATIVE PERCENT (BEAKER) (test 1 % cfck=070) NEUTROPHILS ABSOLUTE COUNT (BEAKER) (test 5.39 K/ L 1.78-5.38 oqhu=710) LYMPHOCYTES ABSOLUTE COUNT (BEAKER) (test 1.20 K/ L 1.32-3.57 pkbf=671) MONOCYTES ABSOLUTE COUNT (BEAKER) (test 0.75 K/ L 0.30-0.82 ciyy=939) EOSINOPHILS ABSOLUTE COUNT (BEAKER) (test 0.42 K/ L 0.04-0.54 ygzw=731) BASOPHILS ABSOLUTE COUNT (BEAKER) (test 0.06 K/ L 0.01-0.08 lokr=626) IMMATURE GRANULOCYTES-RELATIVE PERCENT (BEAKER) 1 % 0-1 (test xezx=9404) POCT-GLUCOSE [id number] 21:04:00 Test Item Value Reference Range Comments POC-GLUCOSE METER (BEAKER) 163 mg/dL 70-110 TESTED AT [address] (test ssdv=7356) [facility] [address] POCT-GLUCOSE [id number] 17:12:00 Test Item Value Reference Range Comments POC-GLUCOSE METER (BEAKER) 121 mg/dL 70-110 TESTED AT [address] (test lbue=0961) [facility] [address] POCT-GLUCOSE [id number] 12:56:00 Test Item Value Reference Range Comments POC-GLUCOSE METER (BEAKER) 144 mg/dL 70-110 TESTED AT [address] (test onmv=7605) [facility] [address] POCT-GLUCOSE [id number] 09:36:00 Test Item Value Reference Range Comments POC-GLUCOSE METER (BEAKER) 159 mg/dL 70-110 TESTED AT [address] (test gchh=7846) [facility] [address] BASIC METABOLIC [id number] 08:48:00 Test Item Value Reference Range Comments SODIUM (BEAKER) (test 130 meq/L 136-145 iswt=316) POTASSIUM (BEAKER) (test 4.5 meq/L 3.5-5.1 wmab=211) CHLORIDE (BEAKER) (test 93 meq/L 98-107 ywtr=718) CO2 (BEAKER) (test 25 meq/L 22-29 wqph=923) BLOOD UREA NITROGEN 40 mg/dL 7-21 (BEAKER) (test terh=699) CREATININE (BEAKER) (test 5.37 mg/dL 0.57-1.25 pmgf=786) GLUCOSE RANDOM (BEAKER) 114 mg/dL 70-105 (test lwhg=216) CALCIUM (BEAKER) (test 8.8 mg/dL 8.4-10.2 okki=244) EGFR (BEAKER) (test 10 mL/min/1.73 sq m ESTIMATED GFR IS NOT vytx=7190) ACCURATE CREATININE CLEARANCE IN PREDICTING GLOMERULAR FILTRATION RATE. ESTIMATED GFR IS NOT APPLICABLE FOR DIALYSIS PATIENTS. [id number] 08:45:00 Test Item Value Reference Range Comments PHOSPHORUS (BEAKER) (test pvxi=244) 3.8 mg/dL 2.3-4.7 [id number] 08:45:00 Test Item Value Reference Range Comments MAGNESIUM (BEAKER) (test saak=399) 1.9 mg/dL 1.6-2.6 CBC W/PLT COUNT & AUTO [id number] 05:35:00 Test Item Value Reference Range Comments WHITE BLOOD CELL COUNT (BEAKER) (test sdad=650) 7.5 K/ L 3.5-10.5 RED BLOOD CELL COUNT (BEAKER) (test khda=247) 3.03 M/ L 4.63-6.08 HEMOGLOBIN (BEAKER) (test wnwx=577) 10.1 GM/DL 13.7-17.5 HEMATOCRIT (BEAKER) (test hqcy=711) 30.2 % 40.1-51.0 MEAN CORPUSCULAR VOLUME (BEAKER) (test inqq=641) 99.7 fL 79.0-92.2 MEAN CORPUSCULAR HEMOGLOBIN (BEAKER) (test 33.3 pg 25.7-32.2 jrwe=146) MEAN CORPUSCULAR HEMOGLOBIN CONC (BEAKER) (test 33.4 GM/DL 32.3-36.5 yefs=611) RED CELL DISTRIBUTION WIDTH (BEAKER) (test 13.1 % 11.6-14.4 xbez=774) PLATELET COUNT (BEAKER) (test vbmu=617) 180 K/CU MM 150-450 MEAN PLATELET VOLUME (BEAKER) (test nwep=954) 11.4 fL 9.4-12.4 NUCLEATED RED BLOOD CELLS (BEAKER) (test 0 /100 WBC 0-0 cqkv=218) NEUTROPHILS RELATIVE PERCENT (BEAKER) (test 68 % ilrm=998) LYMPHOCYTES RELATIVE PERCENT (BEAKER) (test 16 % mxnd=425) MONOCYTES RELATIVE PERCENT (BEAKER) (test 11 % lcne=736) EOSINOPHILS RELATIVE PERCENT (BEAKER) (test 5 % rhwj=051) BASOPHILS RELATIVE PERCENT (BEAKER) (test 1 % oscv=652) NEUTROPHILS ABSOLUTE COUNT (BEAKER) (test 5.06 K/ L 1.78-5.38 hxdl=119) LYMPHOCYTES ABSOLUTE COUNT (BEAKER) (test 1.16 K/ L 1.32-3.57 wsdf=600) MONOCYTES ABSOLUTE COUNT (BEAKER) (test 0.82 K/ L 0.30-0.82 icoa=382) EOSINOPHILS ABSOLUTE COUNT (BEAKER) (test 0.37 K/ L 0.04-0.54 akdq=133) BASOPHILS ABSOLUTE COUNT (BEAKER) (test 0.05 K/ L 0.01-0.08 xwpi=118) IMMATURE GRANULOCYTES-RELATIVE PERCENT (BEAKER) 1 % 0-1 (test wvqy=6471) POCT-GLUCOSE [id number] 05:35:00 Test Item Value Reference Range Comments POC-GLUCOSE METER (BEAKER) 140 mg/dL 70-110 TESTED AT [address] (test hzpb=7986) [facility] [address] POCT-GLUCOSE [id number] 21:25:00 Test Item Value Reference Range Comments POC-GLUCOSE METER (BEAKER) 154 mg/dL 70-110 TESTED AT [address] (test atrx=6711) [facility] [address] POCT-GLUCOSE [id number] 17:24:00 Test Item Value Reference Range Comments POC-GLUCOSE METER (BEAKER) 167 mg/dL 70-110 TESTED AT [address] (test yvux=7801) [place] [id number] POCT-GLUCOSE [id number] 14:06:00 Test Item Value Reference Range Comments POC-GLUCOSE METER (BEAKER) 179 mg/dL 70-110 TESTED AT [address] (test dslj=3416) [place] [id number] POCT-GLUCOSE [id number] 11:57:00 Test Item Value Reference Range Comments POC-GLUCOSE METER (BEAKER) 186 mg/dL 70-110 TESTED AT [address] (test nnrp=5481) [place] [id number] 09:09:00 Test Item Value Reference Range Comments FERRITIN (BEAKER) (test xorl=476) 683 ng/mL 5-275 POCT-GLUCOSE [id number] 09:08:00 Test Item Value Reference Range Comments POC-GLUCOSE METER (BEAKER) 129 mg/dL 70-110 TESTED AT [address] (test ymjl=8431) [facility] [address] POCT-GLUCOSE [id number] 08:19:00 Test Item Value Reference Range Comments POC-GLUCOSE METER (BEAKER) 70 mg/dL 70-110 TESTED AT [address] (test asfi=1499) [facility] [address] POCT-GLUCOSE [id number] 07:50:00 Test Item Value Reference Range Comments POC-GLUCOSE METER (BEAKER) 61 mg/dL 70-110 Notified TAMERA CISNEROS/TESTED AT [facility] (test mlwq=0237) [address] [facility] [address] IRON, TIBC, % SAT. (WITHOUT FERRITIN)[id number] 07:14:00 Test Item Value Reference Range Comments IRON (BEAKER) (test nhyz=300) 51.0 ug/dL 40.0-160.0 TOTAL IRON BINDING CAPACITY (BEAKER) (test 149 ug/dL 250-450 krpz=317) IRON % SATURATION (2) (BEAKER) (test oyvg=5837) 34 % 20-55 BASIC METABOLIC [id number] 06:20:00 Test Item Value Reference Range Comments SODIUM (BEAKER) (test 134 meq/L 136-145 pssi=375) POTASSIUM (BEAKER) (test 4.1 meq/L 3.5-5.1 nmkn=026) CHLORIDE (BEAKER) (test 97 meq/L 98-107 jquf=433) CO2 (BEAKER) (test 27 meq/L 22-29 uwvj=335) BLOOD UREA NITROGEN 26 mg/dL 7-21 (BEAKER) (test ijdd=074) CREATININE (BEAKER) (test 3.93 mg/dL 0.57-1.25 xfdk=619) GLUCOSE RANDOM (BEAKER) 66 mg/dL 70-105 (test zxlz=618) CALCIUM (BEAKER) (test 8.7 mg/dL 8.4-10.2 uxaq=707) EGFR (BEAKER) (test 15 mL/min/1.73 sq m ESTIMATED GFR IS NOT hxjh=5816) ACCURATE CREATININE CLEARANCE IN PREDICTING GLOMERULAR FILTRATION RATE. ESTIMATED GFR IS NOT APPLICABLE FOR DIALYSIS PATIENTS. [id number] 06:15:00 Test Item Value Reference Range Comments PHOSPHORUS (BEAKER) (test zhoe=787) 3.3 mg/dL 2.3-4.7 [id number] 06:15:00 Test Item Value Reference Range Comments MAGNESIUM (BEAKER) (test qcxi=993) 1.9 mg/dL 1.6-2.6 RETICULOCYTE [id number] 05:23:00 Test Item Value Reference Range Comments RETICULOCYTE COUNT PCT (BEAKER) (test mhdy=235) 2.0 % 0.5-1.8 CBC W/PLT COUNT & AUTO [id number] 05:23:00 Test Item Value Reference Range Comments WHITE BLOOD CELL COUNT (BEAKER) (test qcud=319) 7.9 K/ L 3.5-10.5 RED BLOOD CELL COUNT (BEAKER) (test rhpp=786) 3.01 M/ L 4.63-6.08 HEMOGLOBIN (BEAKER) (test xgjk=105) 10.2 GM/DL 13.7-17.5 HEMATOCRIT (BEAKER) (test vplj=315) 30.3 % 40.1-51.0 MEAN CORPUSCULAR VOLUME (BEAKER) (test nczw=425) 100.7 fL 79.0-92.2 MEAN CORPUSCULAR HEMOGLOBIN (BEAKER) (test 33.9 pg 25.7-32.2 eyyd=739) MEAN CORPUSCULAR HEMOGLOBIN CONC (BEAKER) (test 33.7 GM/DL 32.3-36.5 woek=034) RED CELL DISTRIBUTION WIDTH (BEAKER) (test 13.4 % 11.6-14.4 ilzh=727) PLATELET COUNT (BEAKER) (test woqi=975) 184 K/CU MM 150-450 MEAN PLATELET VOLUME (BEAKER) (test ndrq=269) 11.2 fL 9.4-12.4 NUCLEATED RED BLOOD CELLS (BEAKER) (test 0 /100 WBC 0-0 uyjh=684) NEUTROPHILS RELATIVE PERCENT (BEAKER) (test 67 % ilma=740) LYMPHOCYTES RELATIVE PERCENT (BEAKER) (test 16 % cybq=427) MONOCYTES RELATIVE PERCENT (BEAKER) (test 12 % pggp=950) EOSINOPHILS RELATIVE PERCENT (BEAKER) (test 4 % yomh=397) BASOPHILS RELATIVE PERCENT (BEAKER) (test 1 % oxmo=042) NEUTROPHILS ABSOLUTE COUNT (BEAKER) (test 5.28 K/ L 1.78-5.38 pwtq=623) LYMPHOCYTES ABSOLUTE COUNT (BEAKER) (test 1.27 K/ L 1.32-3.57 ggxt=841) MONOCYTES ABSOLUTE COUNT (BEAKER) (test 0.98 K/ L 0.30-0.82 bihq=752) EOSINOPHILS ABSOLUTE COUNT (BEAKER) (test 0.29 K/ L 0.04-0.54 lobg=940) BASOPHILS ABSOLUTE COUNT (BEAKER) (test 0.05 K/ L 0.01-0.08 jdkg=267) IMMATURE GRANULOCYTES-RELATIVE PERCENT (BEAKER) 0 % 0-1 (test xwsl=1156) POCT-GLUCOSE [id number] 21:10:00 Test Item Value Reference Range Comments POC-GLUCOSE METER (BEAKER) 142 mg/dL 70-110 TESTED AT [address] (test emtg=0681) [facility] [address] POCT-GLUCOSE [id number] 17:40:00 Test Item Value Reference Range Comments POC-GLUCOSE METER (BEAKER) 162 mg/dL 70-110 TESTED AT [address] (test bpti=8166) [facility] [address] POCT-GLUCOSE [id number] 12:21:00 Test Item Value Reference Range Comments POC-GLUCOSE METER (BEAKER) 137 mg/dL 70-110 TESTED AT [address] (test zqbe=8350) [facility] [address] COMPREHENSIVE METABOLIC [id number] 06:38:00 Test Item Value Reference Range Comments TOTAL PROTEIN (BEAKER) 6.2 gm/dL 6.0-8.3 (test rfyp=545) ALBUMIN (BEAKER) (test 2.3 g/dL 3.5-5.0 rkgl=2780) ALKALINE PHOSPHATASE 70 U/L 40-150 (BEAKER) (test enpn=219) BILIRUBIN TOTAL (BEAKER) 0.4 mg/dL 0.2-1.2 (test tpkl=259) SODIUM (BEAKER) (test 133 meq/L 136-145 qlob=984) POTASSIUM (BEAKER) (test 4.6 meq/L 3.5-5.1 gqiv=545) CHLORIDE (BEAKER) (test 98 meq/L 98-107 xuco=356) CO2 (BEAKER) (test 25 meq/L 22-29 zjru=687) BLOOD UREA NITROGEN 46 mg/dL 7-21 (BEAKER) (test iigf=459) CREATININE (BEAKER) (test 6.64 mg/dL 0.57-1.25 rigi=381) GLUCOSE RANDOM (BEAKER) 51 mg/dL 70-105 (test vgii=850) CALCIUM (BEAKER) (test 8.6 mg/dL 8.4-10.2 xjrf=528) AST (SGOT) (BEAKER) (test 21 U/L 5-34 inir=112) ALT (SGPT) (BEAKER) (test < U/L 6-55 hzhj=351) EGFR (BEAKER) (test 8 mL/min/1.73 sq m ESTIMATED GFR IS NOT cebv=0846) ACCURATE CREATININE CLEARANCE IN PREDICTING GLOMERULAR FILTRATION RATE. ESTIMATED GFR IS NOT APPLICABLE FOR DIALYSIS PATIENTS. [id number] 06:34:00 Test Item Value Reference Range Comments PHOSPHORUS (BEAKER) (test soij=244) 4.8 mg/dL 2.3-4.7 [id number] 06:34:00 Test Item Value Reference Range Comments MAGNESIUM (BEAKER) (test depd=425) 2.1 mg/dL 1.6-2.6 CBC W/PLT COUNT & AUTO [id number] 05:21:00 Test Item Value Reference Range Comments WHITE BLOOD CELL COUNT (BEAKER) (test uzmq=483) 8.2 K/ L 3.5-10.5 RED BLOOD CELL COUNT (BEAKER) (test slph=513) 3.03 M/ L 4.63-6.08 HEMOGLOBIN (BEAKER) (test btba=667) 9.9 GM/DL 13.7-17.5 HEMATOCRIT (BEAKER) (test tjgs=504) 30.1 % 40.1-51.0 MEAN CORPUSCULAR VOLUME (BEAKER) (test sksn=666) 99.3 fL 79.0-92.2 MEAN CORPUSCULAR HEMOGLOBIN (BEAKER) (test 32.7 pg 25.7-32.2 glkb=907) MEAN CORPUSCULAR HEMOGLOBIN CONC (BEAKER) (test 32.9 GM/DL 32.3-36.5 bnhu=777) RED CELL DISTRIBUTION WIDTH (BEAKER) (test 13.5 % 11.6-14.4 ccea=653) PLATELET COUNT (BEAKER) (test payd=112) 192 K/CU MM 150-450 MEAN PLATELET VOLUME (BEAKER) (test ofky=759) 11.1 fL 9.4-12.4 NUCLEATED RED BLOOD CELLS (BEAKER) (test 0 /100 WBC 0-0 hfxu=238) NEUTROPHILS RELATIVE PERCENT (BEAKER) (test 69 % gujl=284) LYMPHOCYTES RELATIVE PERCENT (BEAKER) (test 15 % zzbw=970) MONOCYTES RELATIVE PERCENT (BEAKER) (test 9 % eeqp=899) EOSINOPHILS RELATIVE PERCENT (BEAKER) (test 5 % ujwx=330) BASOPHILS RELATIVE PERCENT (BEAKER) (test 1 % ymfm=178) NEUTROPHILS ABSOLUTE COUNT (BEAKER) (test 5.65 K/ L 1.78-5.38 slwc=514) LYMPHOCYTES ABSOLUTE COUNT (BEAKER) (test 1.24 K/ L 1.32-3.57 ziwo=200) MONOCYTES ABSOLUTE COUNT (BEAKER) (test 0.74 K/ L 0.30-0.82 cwef=348) EOSINOPHILS ABSOLUTE COUNT (BEAKER) (test 0.44 K/ L 0.04-0.54 ieag=568) BASOPHILS ABSOLUTE COUNT (BEAKER) (test 0.05 K/ L 0.01-0.08 cbqk=168) IMMATURE GRANULOCYTES-RELATIVE PERCENT (BEAKER) 0 % 0-1 (test hffx=8210) POCT-GLUCOSE [id number] 21:00:00 Test Item Value Reference Range Comments POC-GLUCOSE METER (BEAKER) 103 mg/dL 70-[address] [facility] [address] [facility] (test svvv=3854) [facility] [address] RAD, CHEST, 1 VIEW, NON [id number] 19:51:00Reason for exam:->CoughShould this be performed at [...] MDReport Verified Date/Time: 08/22/2018 19:51:52 Reading Location: [facility] [id number] Consult Reading Room [id number] 19:16:00 Test Item Value Reference Range Comments PHOSPHORUS (BEAKER) (test tqpv=181) 4.4 mg/dL 2.3-4.7 Send if you can add on from earlier AM labsPOCT-GLUCOSE [id number] 17:53:00 Test Item Value Reference Range Comments POC-GLUCOSE METER (BEAKER) 134 mg/dL 70-110 TESTED AT [address] (test bklu=8780) [place] [address] HEPATITIS B SURFACE [id number] 13:45:00 Test Item Value Reference Range Comments HEPATITIS B SURFACE ANTIGEN (2) (BEAKER) (test Nonreactive Nonreactive krhn=9675) POCT-GLUCOSE [id number] 10:34:00 Test Item Value Reference Range Comments POC-GLUCOSE METER (BEAKER) 74 mg/dL 70-110 TESTED AT [address] (test kjjn=5337) [place] [address] POCT-GLUCOSE [id number] 07:42:00 Test Item Value Reference Range Comments POC-GLUCOSE METER (BEAKER) 118 mg/dL 70-110 TESTED AT [address] (test oadc=1677) [place] [address] POCT-GLUCOSE [id number] 06:39:00 Test Item Value Reference Range Comments POC-GLUCOSE METER (BEAKER) 57 mg/dL 70-110 Notified TAMERA CISNEROS/TESTED AT [facility] (test xdeb=2487) [address] [place] [address] BASIC METABOLIC [id number] 04:55:00 Test Item Value Reference Range Comments SODIUM (BEAKER) (test 136 meq/L 136-145 hxfu=630) POTASSIUM (BEAKER) (test 4.1 meq/L 3.5-5.1 wibu=619) CHLORIDE (BEAKER) (test 98 meq/L 98-107 lmnr=066) CO2 (BEAKER) (test 29 meq/L 22-29 ieoj=743) BLOOD UREA NITROGEN 33 mg/dL 7-21 (BEAKER) (test hhpa=668) CREATININE (BEAKER) (test 5.15 mg/dL 0.57-1.25 tuud=094) GLUCOSE RANDOM (BEAKER) 48 mg/dL 70-105 (test ixoj=241) CALCIUM (BEAKER) (test 8.8 mg/dL 8.4-10.2 sfve=492) EGFR (BEAKER) (test 11 mL/min/1.73 sq m ESTIMATED GFR IS NOT afls=1629) ACCURATE CREATININE CLEARANCE IN PREDICTING GLOMERULAR FILTRATION RATE. ESTIMATED GFR IS NOT APPLICABLE FOR DIALYSIS PATIENTS. [id number] 04:52:00 Test Item Value Reference Range Comments MAGNESIUM (BEAKER) (test tjtf=316) 2.1 mg/dL 1.6-2.6 [id number] 04:47:00 Test Item Value Reference Range Comments PROTIME (BEAKER) (test ynyc=042) 16.0 seconds 11.7-14.7 INR (BEAKER) (test oaol=734) 1.3 <=5.9 PARTIAL THROMBOPLASTIN TIME (BEAKER) (test 51.1 seconds 22.5-36.0 dfyq=644) RECOMMENDED COUMADIN/WARFARIN INR THERAPY RANGESSTANDARD DOSE: 2.0 - 3.0 Includes: PROPHYLAXIS forvenous thrombosis, systemic embolization; TREATMENT for venous thrombosis and/or pulmonary embolus.HIGH RISK: Target INR is 2.5-3.5 for patients with mechanical heart valves.CBC W/PLT COUNT & AUTO [id number] 04:36:00 Test Item Value Reference Range Comments WHITE BLOOD CELL COUNT (BEAKER) (test nmiw=299) 9.1 K/ L 3.5-10.5 RED BLOOD CELL COUNT (BEAKER) (test utwe=293) 3.12 M/ L 4.63-6.08 HEMOGLOBIN (BEAKER) (test naul=425) 10.2 GM/DL 13.7-17.5 HEMATOCRIT (BEAKER) (test bpox=951) 31.9 % 40.1-51.0 MEAN CORPUSCULAR VOLUME (BEAKER) (test zuqn=039) 102.2 fL 79.0-92.2 MEAN CORPUSCULAR HEMOGLOBIN (BEAKER) (test 32.7 pg 25.7-32.2 izej=350) MEAN CORPUSCULAR HEMOGLOBIN CONC (BEAKER) (test 32.0 GM/DL 32.3-36.5 zfaz=574) RED CELL DISTRIBUTION WIDTH (BEAKER) (test 14.0 % 11.6-14.4 edqz=859) PLATELET COUNT (BEAKER) (test greu=836) 194 K/CU MM 150-450 MEAN PLATELET VOLUME (BEAKER) (test vhpj=087) 11.2 fL 9.4-12.4 NUCLEATED RED BLOOD CELLS (BEAKER) (test 0 /100 WBC 0-0 xlfy=855) NEUTROPHILS RELATIVE PERCENT (BEAKER) (test 73 % asjp=589) LYMPHOCYTES RELATIVE PERCENT (BEAKER) (test 11 % byuj=151) MONOCYTES RELATIVE PERCENT (BEAKER) (test 10 % bxje=145) EOSINOPHILS RELATIVE PERCENT (BEAKER) (test 5 % jfyv=678) BASOPHILS RELATIVE PERCENT (BEAKER) (test 0 % ebbp=909) NEUTROPHILS ABSOLUTE COUNT (BEAKER) (test 6.63 K/ L 1.78-5.38 sdic=572) LYMPHOCYTES ABSOLUTE COUNT (BEAKER) (test 1.04 K/ L 1.32-3.57 ewnu=021) MONOCYTES ABSOLUTE COUNT (BEAKER) (test 0.92 K/ L 0.30-0.82 vkyi=479) EOSINOPHILS ABSOLUTE COUNT (BEAKER) (test 0.44 K/ L 0.04-0.54 tldf=999) BASOPHILS ABSOLUTE COUNT (BEAKER) (test 0.04 K/ L 0.01-0.08 ssse=523) IMMATURE GRANULOCYTES-RELATIVE PERCENT (BEAKER) 0 % 0-1 (test iqxt=5992) ANG, THROMBECTOMY, A-V [id number] 14:11:00If unable then place tunneled dialysis catheterReason [...] catheter for an Amplatz wire. A 7 [place]uv[place] sheath was placed at the access site. [...] as (Ka,r): 45 mGy Signed: Mariah Calzada [facility] Verified Date/Time: 09/18/2017 14:11:58 Reading Location: [place] [address] Angio Body Reading Room Electronically signed by: MARIAH CALZADA M.D. on 2017 02:11 PMPOCT-GLUCOSE [id number] 13:43:00 Test Item Value Reference Range Comments POC-GLUCOSE METER (CosNet) 76 mg/dL 70-[address] [facility] [address] [facility] (test tsii=1722) [facility] [address] HEMOGLOBIN [id number] 08:02:00 Test Item Value Reference Range Comments HEMOGLOBIN A1C (A and A Travel ServiceAKER) (test uyuu=716) 7.0 % 4.3-6.1 BASIC METABOLIC [id number] 07:34:00 Test Item Value Reference Range Comments SODIUM (BEAKER) (test 140 meq/L 136-145 gceo=631) POTASSIUM (BEAKER) (test 5.0 meq/L 3.5-5.1 puwz=054) CHLORIDE (BEAKER) (test 101 meq/L 98-107 ptzv=987) CO2 (BEAKER) (test 22 meq/L 22-29 hkgo=853) BLOOD UREA NITROGEN 87 mg/dL 7-21 (BEAKER) (test oqnj=669) CREATININE (BEAKER) (test 10.99 mg/dL 0.57-1.25 fjia=329) GLUCOSE RANDOM (BEAKER) 87 mg/dL 70-105 (test nuwb=666) CALCIUM (BEAKER) (test 7.8 mg/dL 8.4-10.2 yilb=875) EGFR (BEAKER) (test 5 mL/min/1.73 sq m ESTIMATED GFR IS NOT haxt=9903) ACCURATE CREATININE CLEARANCE IN PREDICTING GLOMERULAR FILTRATION RATE. ESTIMATED GFR IS NOT APPLICABLE FOR DIALYSIS PATIENTS. [id number] 07:28:00 Test Item Value Reference Range Comments PHOSPHORUS (BEAKER) (test xyrn=464) 6.0 mg/dL 2.3-4.7 [id number] 07:28:00 Test Item Value Reference Range Comments MAGNESIUM (BEAKER) (test xlkv=439) 2.3 mg/dL 1.6-2.6 CALCIUM, [id number] 07:18:00 Test Item Value Reference Range Comments CALCIUM IONIZED (BEAKER) (test zziy=952) 1.00 mmol/L 1.12-1.27 PH, BLOOD (BEAKER) (test jtlx=2899) 7.27 HEPATITIS B SURFACE [id number] 07:11:00 Test Item Value Reference Range Comments HEPATITIS B SURFACE ANTIGEN (2) (BEAKER) (test Nonreactive Nonreactive vrkh=4972) Pls add to specimen drawn earlier.POCT-GLUCOSE [id number] 07:06:00 Test Item Value Reference Range Comments POC-GLUCOSE METER (BEAKER) 118 mg/dL 70-[address] [facility] [address] [facility] (test dwdf=4916) [facility] [address] PROTHROMBIN [id number] 06:14:00 Test Item Value Reference Range Comments PROTIME (BEAKER) (test jcpy=467) 14.2 seconds 11.7-14.7 INR (BEAKER) (test fvyj=117) 1.1 <=5.9 RECOMMENDED COUMADIN/WARFARIN INR THERAPY RANGESSTANDARD DOSE: 2.0 - 3.0 Includes: PROPHYLAXIS forvenous thrombosis, systemic embolization; TREATMENT for venous thrombosis and/or pulmonary embolus.HIGH RISK: Target INR is 2.5-3.5 for patients with mechanical heart valves.CBC W/PLT COUNT & AUTO [id number] 06:04:00 Test Item Value Reference Range Comments WHITE BLOOD CELL COUNT (BEAKER) (test vqdd=380) 5.7 K/ L 3.5-10.5 RED BLOOD CELL COUNT (BEAKER) (test pted=494) 3.78 M/ L 4.63-6.08 HEMOGLOBIN (BEAKER) (test qzkq=210) 13.0 GM/DL 13.7-17.5 HEMATOCRIT (BEAKER) (test likv=773) 39.4 % 40.1-51.0 MEAN CORPUSCULAR VOLUME (BEAKER) (test cxfq=965) 104.2 fL 79.0-92.2 MEAN CORPUSCULAR HEMOGLOBIN (BEAKER) (test 34.4 pg 25.7-32.2 eelj=204) MEAN CORPUSCULAR HEMOGLOBIN CONC (BEAKER) (test 33.0 GM/DL 32.3-36.5 eyfc=024) RED CELL DISTRIBUTION WIDTH (BEAKER) (test 14.1 % 11.6-14.4 zcgu=814) PLATELET COUNT (BEAKER) (test ftlq=187) 82 K/CU MM 150-450 MEAN PLATELET VOLUME (BEAKER) (test uzgo=428) 13.3 fL 9.4-12.4 NUCLEATED RED BLOOD CELLS (BEAKER) (test 0 /100 WBC 0-0 gjur=494) NEUTROPHILS RELATIVE PERCENT (BEAKER) (test 62 % ajxm=435) LYMPHOCYTES RELATIVE PERCENT (BEAKER) (test 23 % herc=340) MONOCYTES RELATIVE PERCENT (BEAKER) (test 11 % zjnu=297) EOSINOPHILS RELATIVE PERCENT (BEAKER) (test 4 % ejmy=128) BASOPHILS RELATIVE PERCENT (BEAKER) (test 1 % ebug=608) NEUTROPHILS ABSOLUTE COUNT (BEAKER) (test 3.53 K/ L 1.78-5.38 bcor=093) LYMPHOCYTES ABSOLUTE COUNT (BEAKER) (test 1.30 K/ L 1.32-3.57 ilbk=833) MONOCYTES ABSOLUTE COUNT (BEAKER) (test pnhe=905) 0.62 K/ L 0.30-0.82 EOSINOPHILS ABSOLUTE COUNT (BEAKER) (test 0.22 K/ L 0.04-0.54 pavc=052) BASOPHILS ABSOLUTE COUNT (BEAKER) (test hgan=933) 0.03 K/ L 0.01-0.08 IMMATURE GRANULOCYTES-RELATIVE PERCENT (BEAKER) 1 % 0-1 (test brik=4031) POCT-GLUCOSE [id number] 22:23:00 Test Item Value Reference Range Comments POC-GLUCOSE METER (BEAKER) 185 mg/dL 70-110 TESTED AT [address] (test absc=6566) [place] [address] POCT-GLUCOSE [id number] 21:27:00 Test Item Value Reference Range Comments POC-GLUCOSE METER (BEAKER) 198 mg/dL 70-110 TESTED AT [address] (test vwbg=1910) [place] [address] POCT-GLUCOSE [id number] 17:43:00 Test Item Value Reference Range Comments POC-GLUCOSE METER (BEAKER) 164 mg/dL 70-110 TESTED AT [address] (test ohdw=4694) [place] [address] HEPATITIS B SURFACE [id number] 15:14:00 Test Item Value Reference Range Comments HEPATITIS B SURFACE ANTIGEN (2) (BEAKER) (test Nonreactive Nonreactive axxx=0787) Pls add to specimen drawn earlier.BASIC METABOLIC [id number] 13:34:00 Test Item Value Reference Range Comments SODIUM (BEAKER) (test 140 meq/L 136-145 wubb=454) POTASSIUM (BEAKER) (test 5.4 meq/L 3.5-5.1 bwzy=461) CHLORIDE (BEAKER) (test 101 meq/L 98-107 hykp=772) CO2 (BEAKER) (test 19 meq/L 22-29 esnu=966) BLOOD UREA NITROGEN 123 mg/dL 7-21 (BEAKER) (test qqiy=824) CREATININE (BEAKER) (test 12.96 mg/dL 0.57-1.25 stwy=092) GLUCOSE RANDOM (BEAKER) 79 mg/dL 70-105 (test otzx=098) CALCIUM (BEAKER) (test 7.9 mg/dL 8.4-10.2 hyav=107) EGFR (BEAKER) (test 4 mL/min/1.73 sq m ESTIMATED GFR IS NOT ufgs=0619) ACCURATE CREATININE CLEARANCE IN PREDICTING GLOMERULAR FILTRATION RATE. ESTIMATED GFR IS NOT APPLICABLE FOR DIALYSIS PATIENTS. [id number] 13:24:00 Test Item Value Reference Range Comments MAGNESIUM (BEAKER) (test bzkw=631) 2.3 mg/dL 1.6-2.6 [id number] 13:24:00 Test Item Value Reference Range Comments PHOSPHORUS (BEAKER) (test twrx=563) 6.2 mg/dL 2.3-4.7 POCT-GLUCOSE [id number] 12:20:00 Test Item Value Reference Range Comments POC-GLUCOSE METER (BEAKER) 84 mg/dL 70-[address] [facility] [address] [place] [address] (test fofv=9474) [facility] [address] ANG, NON-TUNNELED CATH >5 Y.O. [id number] 11:23:00Reason for exam:-> please declot the AV fistula, if unable to do that he needs catheter exchangeFINAL REPORT Nontunneled dialysis catheter insertion, 09/16/2017. History: Left upper extremity AV fistula thrombosed. Modality: Fluoroscopy and sonography. Sedation: None. Adjustment Examiner: Edgar Chandler MD. Children'S Author: None. Approach: Right internal jugular vein Estimated [...] sonographic and fluoroscopic guidance. Signed: Edgar Chandler MDRcarlosort Verified Date/Time: 2017 11:23:57 Reading Location: [place] [address] AngioBody Reading Room POCT- GLUCOSE [id number] 07:38:00 Test Item Value Reference Range Comments POC-GLUCOSE METER (BEAKER) 89 mg/dL 70-110 TESTED AT [address] (test yure=9983) [place] [address] PROTHROMBIN [id number] 05:19:00 Test Item Value Reference Range Comments PROTIME (BEAKER) (test mbae=501) 14.8 seconds 11.7-14.7 INR (BEAKER) (test maoz=794) 1.2 <=5.9 RECOMMENDED COUMADIN/WARFARIN INR THERAPY RANGESSTANDARD DOSE: 2.0 - 3.0 Includes: PROPHYLAXIS forvenous thrombosis, systemic embolization; TREATMENT for venous thrombosis and/or pulmonary embolus.HIGH RISK: Target INR is 2.5-3.5 for patients with mechanical heart valves.POCT-GLUCOSE [id number] 23:26:00 Test Item Value Reference Range Comments POC-GLUCOSE METER (BEAKER) 261 mg/dL 70-110 TESTED AT [address] (test tnrc=5056) [place] [address]
--- OUTSIDE RECORDS SUMMARY | 2019-01-07 19:14 | XMS REPORT ---
[...] Start Date End Date Status Dosage Pravachol [facility] [id number] 40 MG Orally Once Active 1 tablet a day Results No Known Results Summary Purpose eClinicalWorks Submission
--- NOTE | 2019-01-07 19:49 | RAD REPORT ---
EXAM DESCRIPTION: CT - CTHCSPWOC - 01/07/2019 7:39 pm CLINICAL HISTORY: Fall, head and neck injury, patient found on ground COMPARISON: CT September 2016 TECHNIQUE: Axial 5 mm thick images of the head were obtained. Axial 2 mm thick images of the cervic al spine were obtained with sagittal and coronal reconstruction images generated and reviewed. All CT scans are performed using dose optimization technique as appropriate and may include automated exposure control or mA/KV adjustment according to patient size. FINDINGS: No intracranial hemorrhage, mass, edema or acute intracranial finding. No suspicion for acute infarct ion. Prominent atrophy and chronic ischemic changes are present similar to comparison. Ventricles are in proportion to volume loss. No acute mastoid air cell finding. There is near complete opacificatio n of the right maxillary sinus. This has been present on prior imaging. No globe or orbital content a bnormality. Cervical bodies are normal in height. No fracture or acute cervical vertebral finding. Slight subluxa tion of C3 on C4 and C5 on C6 similar to comparison. No alignment changes since prior imaging. Signif icant disc space narrowing at C6-7. Less significant C4-5 and C5-6 disc space narrowing. Facet joint degenerative changes are present. No critical foraminal stenosis. Central canal detail is inherently limited. No paraspinal mass or hematoma. IMPRESSION: Prominent atrophy and chronic ischemic change similar to comparison. No acute intracrani al finding. Cervical spine degenerative change similar to comparison. No fracture or acute finding. Chronic right maxillary sinusitis.
--- NOTE | 2019-01-07 20:26 | RAD REPORT ---
EXAM DESCRIPTION: RAD - Pelvis - 01/07/2019 7:59 pm CLINICAL HISTORY: Fall, pelvic pain COMPARISON: None. TECHNIQUE: AP imaging of the pelvis was obtained. FINDINGS: No fracture of the pelvis or proximal femurs. There is no dislocation. Bilateral hip joint degenerative changes are present. No AVN or focal femoral head abnormality. Dense arterial tree calc ifications are present. Right common femoral artery stent is in place. No suspicious soft tissue find ing. IMPRESSION: No fracture or acute finding.
--- NOTE | 2019-01-07 20:29 | RAD REPORT ---
EXAM DESCRIPTION: RAD - Elbow Left 3 View - 01/07/2019 7:59 pm CLINICAL HISTORY: Fall, left elbow pain COMPARISON: None. FINDINGS: No fracture is identified and no elevated posterior fat pad. There is no dislocation or pe riosteal reaction noted. Spurring is seen at the triceps tendon attachment site. Surgical clips are seen in the antecubital fossa. Patient has dense calcifications of the arterial tree as well as arter ial tree stenting in the upper arm. There is disruption or fraying of the stenting in the midportion of the humerus. No prior imaging available for comparison. IMPRESSION: No acute bone or joint finding. Extensive arterial disease with stenting and dense arterial tree calcifications.
[2019-01-07 21:46] LABS: Absolute Lymphocytes (CBC) 1.1 K/uL (0.7-4.9); Absolute Monocytes 0.7 K/uL (0.1-1.3); Absolute Neutrophil 5.3 K/uL (1.8-8.0); Basophils % 0.5 % (0-1.3); Eosinophils % 5.2 % (0-4.4); Hematocrit 38.5 % (39.6-49.0); Lymphocytes % 14.5 % (15.3-44.8); MPV 9.4 fL (7.6-11.3); Monocytes % 9.3 % (3.3-12.3); RBC Red Blood Cell Count 4.14 M/uL (4.33-5.43)
[2019-01-07 21:50] LABS: Potassium 4.3 mmol/L (3.5-5.1)
[2019-01-07 21:51] LABS: Albumin 2.7 g/dL (3.4-5.0); Bilirubin Total 0.4 mg/dL (0.2-1.0); Protein, Total 7.5 g/dL (6.4-8.2)
--- NOTE | 2019-01-07 22:06 | ER ---
Nurse's Notes [facility] Name: Nadir Mendez Age: 73 yrs Sex: Male : 1945 Arrival Date: 01/07/2019 Time: 19:19 Bed 19 Private MD: Diagnosis: Superficial injury of other parts of head;Fall from bed;Contusion of left forearm Presentation: 01/07 19:19 Presenting complaint: EMS states: [facility], patient found on floor, lp1 suspected to have rolled out of bed; Complaint of pain to left arm, where dialysis access is; small abrasion to bridge of nose and forehead. Care prior to arrival: IV initiated. 20 GA, in the right antecubital area. Mechanism of Injury: Fall out of bed. Trauma event details: Injury occurred in the [facility], Injury occurred: [facility] Injury occurred: January 07, 2019 Injury occurred at: 18:30. 19:19 Acuity: ASTER 2 lp1 19:19 Method Of Arrival: EMS: [facility] lp1 19:23 Transition of care: patient was received from another setting of care (long-term care [facility] facility), [facility]. Onset of symptoms was January 07, 2019 at 18:30. Risk Assessment: Do you want to hurt yourself or someone else? Patient reports no desire to harm self or others. Initial Sepsis Screen: Does the patient meet any 2 criteria? No. Patient's initial sepsis screen is negative. Does the patient have a suspected source of infection? No. Patient's initial sepsis screen is negative. Trauma Activation: Alert Physician: ED Physician; Name: Dr. Malik; Notified At: 19:12; Arrived At: 19:12 Physician: General Surgeon; Name: N/A; Notified At: 19:12; Arrived At: Physician: Radiology; Name: Katie Cook Dillon; Notified At: 19:12; Arrived At: 19:14 Physician: Respiratory; Name: N/A; Notified At: 19:12; Arrived At: Physician: Lab; Name: N/A; Notified At: 19:12; Arrived At: Historical: - Allergies: 19:35 No Known Allergies; lp1 - Home Meds: 19:35 amlodipine 2.5 mg tab 1 tab once daily [Active]; aspirin 81 mg Oral TbEC [Active]; lp1 aspirin 81 mg Oral TbEC 1 tab once daily [Active]; carbidopa-levodopa 25-100 mg Oral tab twice a day [Active]; cilostazol 100 mg Oral tab 1 tab 2 times per day [Active]; clopidogrel 75 mg Oral tab 1 tab nightly [Active]; gabapentin 100 mg Oral cap twice a day [Active]; ipratropium-albuterol 0.5 mg-3 mg(2.5 mg base)/3 mL Inhl nebu 3 mL 4 times per day [Active]; Lantus 100 unit/mL Sub-Q soln 20 unit daily [Active]; Lyrica 75 mg Oral 2 times per day [Active]; metoprolol tartrate 25 mg Oral tab 1 tab 2 times per day [Active]; pravastatin 40 mg Oral tab 1 tab nightly [Active]; pantoprazole 40 mg Oral TbEC 1 tab once daily [Active]; renal-jenna 0.8mg 1 tab with meals [Active]; sertraline 75 mg Oral tab 1 tab once daily [Active]; sevelamer carbonate 800 mg Oral tab 1 tab 3 times per day [Active]; zinc sulfate 220 mg Oral tab daily [Active]; - PMHx: 19:35 Dialysis; Hepatitis; Anemia; Diabetes - NIDDM; Hyperlipidemia; Depression; parkinson's; lp1 Hypertension; PVD; GERD; Pancreatitis; Renal Disease; Tues, Thurs, Sat; Ulcers; Alzheimers; neuropathy; - PSHx: 19:35 Unable to obtain; lp1 - Immunization history:: Adult Immunizations up to date. - Social history:: Smoking status: unknown. - Immunization history: Last tetanus immunization: unknown. - Ebola Screening: : No symptoms or risks identified at this time. Screenin:30 Abuse screen: Denies threats or abuse. Denies injuries from another. Tuberculosis lp1 screening: No symptoms or risk factors identified. 19:30 Nutritional screening: No deficits noted. Fall Risk Total Granados Fall Scale indicates lp1 High Risk Score (45 or more points). Fall prevention measures have been instituted. Side Rails Up X 2 Family Present and informed to notify staff if the need to leave the bedside As available patient and family educated on Fall Prevention Program and Strategies. Primary Survey: 19:30 NO uncontrolled hemorrhage observed. A: The patient is alert. Airway: patent, No lp1 supplemental oxygen in use on arrival. Breathing/Chest: Respiratory pattern: regular, Respiratory effort: spontaneous, unlabored, Breath sounds: clear, bilaterally. Chest inspection: symmetrical rise and fall of the chest. Circulation: Skin temperature: warm, dry. Disability Alert. Exposure/Environment: All clothing and personal items were removed. Forensic evidence collection is not deemed to be indicated at this time. Items placed in patient belonging bag. Obvious injury(ies) are noted at this time: Abrasion noted to forehead, bridge of nose. 20:30 Reassessment Airway Airway Patent Breathing/Chest Respiratory pattern Regular lp1 Respiratory effort Spontaneous Unlabored Circulation Color [place] Temperature Warm Dry Disability Alert. Secondary Survey: 19:30 HEENT: Head Other Abrasion to forehead, bridge of nose. Gastrointestinal: No deficits lp1 noted. : No deficits noted. Musculoskeletal: Range of motion: intact in all extremities. Assessment: 20:00 General: Appears in no apparent distress. Behavior is calm, cooperative. Pain: lp1 Complains of pain in left arm. Neuro: Level of Consciousness is awake, obeys commands, Oriented to person, place, Pupils are PERRLA. EENT: No deficits noted. Cardiovascular: Patient's skin is warm and dry. Dialysis shunt: in the left bicep. Respiratory: Respiratory effort is even, unlabored, Respiratory pattern is regular, Breath sounds are clear bilaterally. GI: Abdomen is non-distended. : No deficits noted. Derm: Wound noted Other: abrasion to forehead, bridge of nose Decubitus located on sacrum approximately 2.6 cm to 7.5 cm is unstageable. breakdown noted, pink in color. Musculoskeletal: Circulation, motion, and sensation intact. 20:00 Reassessment: Patient's brief changed; BM noted. lp1 22:00 Reassessment: Called [facility], Report given to Kayla about patient for lp1 discharge; States she will call and arrange for transport back to facility. 22:15 Reassessment: family at bedside with patient at this time; Dr. Malik discuss results lp1 with patient and family. 23:30 Reassessment: [facility] at bedside for transfer back to [place] [address] home. Vital Signs: 19:24 BP 163 / 81; Pulse 72; Resp 18; Temp 98.3(O); Pulse Ox 100% on R/A; Weight 83.91 kg; lp1 20:00 BP 174 / 81; Pulse 74; Resp 18; Pulse Ox 97% on R/A; lp1 21:00 BP 156 / 74; Pulse 75; Resp 18; Pulse Ox 97% on R/A; lp1 22:00 BP 168 / 72; Pulse 74; Resp 18; Pulse Ox 99% on R/A; lp1 23:00 BP 159 / 68; Pulse 75; Resp 18; Pulse Ox 97% on R/A; lp1 [place] Coma Score: 19:25 Eye Response: spontaneous(4). Verbal Response: confused(4). Motor Response: obeys lp1 commands(6). Total: 14. Trauma Score (Adult): 19:25 Eye Response: spontaneous(1); Verbal Response: confused(1); Motor Response: obeys lp1 commands(2); Systolic BP: > 89 mm Hg(4); Respiratory Rate: 10 to 29 per min(4); Jelani Score: 14; Trauma Score: 12 20:30 Eye Response: spontaneous(1); Verbal Response: confused(1); Motor Response: obeys lp1 commands(2); Systolic BP: > 89 mm Hg(4); Respiratory Rate: 10 to 29 per min(4); [place] Score: 14; Trauma Score: 12 ED Course: 19:19 Patient arrived in ED. lp1 19:22 Hay Wagoner MD is Attending Physician. gs 19:22 Attending Physician role handed off by Hay Wagoner MD tw4 19:22 Chris Malik MD is Attending Physician. tw4 19:23 Triage completed. lp1 19:24 Arm band placed on right wrist. lp1 19:30 Patient has correct armband on for positive identification. Placed in gown. Bed in low lp1 position. Call light in reach. Side rails up X2. Pulse ox on. NIBP on. 19:30 Patient maintains SpO2 saturation greater than 95% on room air. lp1 19:30 Thermoregulation: warm blanket given to patient. lp1 19:30 Maintain EMS IV. Dressing intact. Site clean \T\ dry. Gauge \T\ site: 20g to R AC. lp 1 19:35 CT completed. Patient tolerated procedure well. Patient moved to CT. Patient moved back va from CT. 19:39 CT Head C Spine In Process Unspecified. EDMS 19:56 X-ray completed. Patient tolerated procedure well. Patient moved back from radiology. mh1 19:57 Elbow Left 3 View XRAY In Process Unspecified. EDMS 19:58 Pelvis XRAY In Process Unspecified. EDMS 20:40 Noa Byrd, RN is Primary Nurse. lp1 22:35 No provider procedures requiring assistance completed. lp1 23:55 IV discontinued, No redness/swelling at site. Pressure dressing applied. lp1 23:56 IV discontinued. lp1 Administered Medications: No medications were administered Output: 20:00 Stool: 1 (Formed Stool) ; Total: 0ml. lp1 Outcome: 21:30 Patient's length of stay in the Emergency Department was greater than 2 hours. Waiting lp1 on results Patient's length of stay extended due to 22:05 Discharge ordered by . tw4 22:30 Discharge instructions given to family, Instructed on discharge instructions. lp1 22:35 Condition: stable lp1 23:55 [facility] to [facility] Report called to Kayla. lp1 23:55 Patient left the ED. lp1 Signatures: Dispatcher [employer] EDMS [facility] Noa Byrd, TAMERA RN lp1 Chris Kulkarni Gregory, MD MD Chris Malik MD MD tw4 Corrections: (The following items were deleted from the chart) 23:55 22:35 Patient did not have IV access during this emergency room visit. lp1 lp1
--- NOTE | 2019-01-07 22:07 | EDPHYS ---
Physician Documentation [facility] Name: Nadir Mendez Age: 73 yrs Sex: Male : 1945 Arrival Date: 01/07/2019 Time: 19:19 Bed 19 Private MD: ED Physician Chris Malik HPI: 01/08 06:03 This 73 yrs old Male presents to ER via EMS with complaints of Fall Injury. tw4 06:08 Details of fall: The patient fell from a supine position, out of bed. Onset: The tw4 symptoms/episode began/occurred today. Associated injuries: The patient sustained injury to the head. Severity of symptoms: At their worst the symptoms were moderate, in the emergency department the symptoms are unchanged. The patient has not experienced similar symptoms in the past. Historical: - Allergies: 01/07 19:35 No Known Allergies; lp1 - Home Meds: 19:35 amlodipine 2.5 mg tab 1 tab once daily [Active]; aspirin 81 mg Oral TbEC [Active]; lp1 aspirin 81 mg Oral TbEC 1 tab once daily [Active]; carbidopa-levodopa 25-100 mg Oral tab twice a day [Active]; cilostazol 100 mg Oral tab 1 tab 2 times per day [Active]; clopidogrel 75 mg Oral tab 1 tab nightly [Active]; gabapentin 100 mg Oral cap twice a day [Active]; ipratropium-albuterol 0.5 mg-3 mg(2.5 mg base)/3 mL Inhl nebu 3 mL 4 times per day [Active]; Lantus 100 unit/mL Sub-Q soln 20 unit daily [Active]; Lyrica 75 mg Oral 2 times per day [Active]; metoprolol tartrate 25 mg Oral tab 1 tab 2 times per day [Active]; pravastatin 40 mg Oral tab 1 tab nightly [Active]; pantoprazole 40 mg Oral TbEC 1 tab once daily [Active]; renal-jenna 0.8mg 1 tab with meals [Active]; sertraline 75 mg Oral tab 1 tab once daily [Active]; sevelamer carbonate 800 mg Oral tab 1 tab 3 times per day [Active]; zinc sulfate 220 mg Oral tab daily [Active]; - PMHx: 19:35 Dialysis; Hepatitis; Anemia; Diabetes - NIDDM; Hyperlipidemia; Depression; parkinson's; lp1 Hypertension; PVD; GERD; Pancreatitis; Renal Disease; Tues, Thurs, Sat; Ulcers; Alzheimers; neuropathy; - PSHx: 19:35 Unable to obtain; lp1 - Immunization history:: Adult Immunizations up to date. - Social history:: Smoking status: unknown. - Immunization history: Last tetanus immunization: unknown. - Ebola Screening: : No symptoms or risks identified at this time. ROS: 01/08 06:08 Constitutional: Negative for fever, chills, and weight loss, Eyes: Negative for injury, tw4 pain, redness, and discharge, Cardiovascular: Negative for chest pain, palpitations, and edema, Respiratory: Negative for shortness of breath, cough, wheezing, and pleuritic chest pain, Abdomen/GI: Negative for abdominal pain, nausea, vomiting, diarrhea, and constipation, MS/Extremity: Negative for injury and deformity, Skin: Negative for injury, rash, and discoloration. Exam: 06:08 Constitutional: This is a well developed, well nourished patient who is awake, alert, tw4 and in no acute distress. Cardiovascular: Regular rate and rhythm with a normal S1 and S2. No gallops, murmurs, or rubs. Normal PMI, no JVD. No pulse deficits. Respiratory: Lungs have equal breath sounds bilaterally, clear to auscultation and percussion. No rales, rhonchi or wheezes noted. No increased work of breathing, no retractions or nasal flaring. Abdomen/GI: Soft, non-tender, with normal bowel sounds. No distension or tympany. No guarding or rebound. No evidence of tenderness throughout. MS/ Extremity: Pulses equal, no cyanosis. Neurovascular intact. Full, normal range of motion. 06:08 Head/face: Noted is contusion, that is deep, of the forehead. 06:08 Musculoskeletal/extremity: Extremities: noted in the left arm: pain. Vital Signs: 01/07 19:24 BP 163 / 81; Pulse 72; Resp 18; Temp 98.3(O); Pulse Ox 100% on R/A; Weight 83.91 kg; lp1 20:00 BP 174 / 81; Pulse 74; Resp 18; Pulse Ox 97% on R/A; lp1 21:00 BP 156 / 74; Pulse 75; Resp 18; Pulse Ox 97% on R/A; lp1 22:00 BP 168 / 72; Pulse 74; Resp 18; Pulse Ox 99% on R/A; lp1 23:00 BP 159 / 68; Pulse 75; Resp 18; Pulse Ox 97% on R/A; lp1 [place] Coma Score: 19:25 Eye Response: spontaneous(4). Verbal Response: confused(4). Motor Response: obeys lp1 commands(6). Total: 14. Trauma Score (Adult): 19:25 Eye Response: spontaneous(1); Verbal Response: confused(1); Motor Response: obeys lp1 commands(2); Systolic BP: > 89 mm Hg(4); Respiratory Rate: 10 to 29 per min(4); [place] Score: 14; Trauma Score: 12 20:30 Eye Response: spontaneous(1); Verbal Response: confused(1); Motor Response: obeys lp1 commands(2); Systolic BP: > 89 mm Hg(4); Respiratory Rate: 10 to 29 per min(4); [place] Score: 14; Trauma Score: 12 MDM: 19:31 Patient medically screened. tw01/08 06:08 Differential diagnosis: abrasion, contusion, fracture. Data reviewed: vital signs, tw4 nurses notes. Data interpreted: Pulse oximetry: Interpretation:. Test interpretation: by ED physician or midlevel provider: plain radiologic studies. Counseling: I had a detailed discussion with the patient and/or guardian regarding: the historical points, exam findings, and any diagnostic results supporting the discharge/admit diagnosis. 01/07 21:05 Order name: CBC with Diff; Complete Time: 22:03 tw4 01/07 22:03 Interpretation: Normal except: RBC 4.14; HGB 12.7; HCT 38.5; MCV 93.0; EOSINOPHIL % tw4 5.2; LYM% 14.5; RDW 16.3. 01/07 21:05 Order name: CMP; Complete Time: 22:02 tw4 01/07 22:03 Interpretation: Normal except: GLUC 266; BUN 48; CRE 3.72; GFR 16. tw4 01/07 19:32 Order name: CT Head C Spine; Complete Time: 22:03 tw4 01/07 19:33 Order name: Elbow Left 3 View XRAY; Complete Time: 22:03 tw4 01/07 19:33 Order name: Pelvis XRAY; Complete Time: 22: tw4 Administered Medications: No medications were administered Disposition: 01/07/19 22:05 Discharged to Home. Impression: Superficial injury of other parts of head, Fall from bed, Contusion of left forearm. - Condition is Stable. - Medication Reconciliation Form, Thank You Letter, Antibiotic Education, Prescription Opioid Use form. - Follow up: Private Physician; When: Upon discharge from the Emergency Department; Reason: If symptoms return, Recheck today's complaints, Continuance of care. - Problem is new. - Symptoms have improved. Signatures: Dispatcher [employer] EDMS Noa Byrd RN RN lp1 Chris Malik MD MD tw4 Corrections: (The following items were deleted from the chart) 01/07 23:55 22:05 01/07/2019 22:05 Discharged to Home. Impression: Superficial injury of other lp1 parts of head; Fall from bed; Contusion of left forearm. Condition is Stable. Forms are Medication Reconciliation Form, Thank You Letter, Antibiotic Education, Prescription Opioid Use. Follow up: Private Physician; When: Upon discharge from the Emergency Department; Reason: If symptoms return, Recheck today's complaints, Continuance of care. Problem is new. Symptoms have improved. tw4
[2019-01-08 01:41] VITALS: TEMP 98.3
[2019-01-08 01:45] VITALS: BP 159/68; O2SAT 97
== END 2019-01-07 23:55 | disposition home or self-care (01) ==
LOC: ER 19:03
DX: S00.83XA Contusion of other part of head, initial encounter (principal); S50.12XA Contusion of left forearm, initial encounter; W06.XXXA Fall from bed, initial encounter; Y93.9 Activity, unspecified; Y92.9 Unspecified place or not applicable; Z79.4 Long term (current) use of insulin; Z79.82 Long term (current) use of aspirin; Z99.2 Dependence on renal dialysis; E11.22 Type 2 diabetes mellitus with diabetic chronic kidney disease; N18.6 End stage renal disease; I10 Essential (primary) hypertension; E78.5 Hyperlipidemia, unspecified; G30.9 Alzheimer's disease, unspecified; F02.80 Dementia in other diseases classified elsewhere, unspecified severity, without behavioral disturbance, psychotic disturbance, mood disturbance, and anxiety; G20 Parkinson's disease; F32.9 Major depressive disorder, single episode, unspecified
CPT/HCPCS: 36415; 70450; 72125; 72170; 80053; 85025; 99285

== ENCOUNTER 2019-02-15 12:15 | Emergency (ER) | payer OTHER ==
--- OUTSIDE RECORDS SUMMARY | 2019-02-15 12:21 | XMS REPORT | Clinical Summary ---
:1945 Author Organization [facility] Address [address] [place] [address] Care Team Providers Name Role Phone Robert [...] 09/18/2018 Duong Caldera MD Peripheral vascular disease ([facility]); Katie Guerra Type 2 diabetes mellitus with diabetic peripheral angiopathy and gangrene, with long-term current use of insulin (HCC); Ivanna Clay, ESRD (end stage renal disease) ([facility]); Malfunction of arteriovenous dialysis fistula, initial encounter ([facility]); Iliana Cowart MD Benign essential HTN; Ale Kessler Elevated troponin MD Denise Bynum, MD Bill Lynch, MD David 08/22/2018 Travel after 02/14/2018 Family History Medical History Relation Name Comments [...] Taken Blood Pressure 128/58 09/18/2018 1:34 PM [employer] Pulse 69 09/18/2018 1:34 PM [employer] Temperature 36.6 C (97.9 F) 09/18/2018 1:34 PM [employer]ON Respiratory Rate 18 09/18/2018 1:34 PM [employer]ON Oxygen Saturation 97% 09/18/2018 1:34 PM [employer] Inhaled Oxygen Concentration 21% 09/15/2018 2:35 PM [employer] Weight 79.6 kg (175 lb 7.8 oz) 09/18/2018 3:00 AM [employer] Height 170.2 cm (5' 7") 08/22/2018 2:00 AM [employer] Body Mass Index 27.49 09/18/2018 3:00 AM [employer]ON Plan of Treatment Not on file Implants Implanted Type Area Box Stapler Device Shelf Model / Identifier Expiration Serial / Date Lot Flseal Vhsd Full Strlprep 10ml [id number] - [id number] Cement/Andrea Right: HANDLEY: BIOSCI 11/20/2019 [id number] / Implanted: Qty: 1 on 08/30/2018 by Geovanni Crabtree MD ler/Adhesi Leg / ve [id number] Mesh Mtrx Wnd Bilyr 10x12.5sq [id number] - [id number] Tissue Right: [employer] 03/09/2020 [id number] / Implanted: Qty: 1 on 09/13/2018 by Aba Millan DPM Graft/Subs Foot / titute [id number] Procedures Procedure Name Priority Date/Time Associated Comments Diagnosis RHYTHM STRIP - SCAN 12/12/2018 1:22 PM CDT CARDIAC CATH REPORT - 10/08/2018 12:41 SCAN PM [facility]ON RHYTHM STRIP - SCAN 10/08/2018 12:41 PM [employer]ON POCT-GLUCOSE METER Routine 09/18/2018 1:32 Results for this PM [employer] procedure are in the results section. HEMODIALYSIS Routine 09/18/2018 1:06 Results for this INPATIENT PM [employer] procedure are in the results section. POCT-GLUCOSE METER Routine 09/18/2018 7:36 Results for this AM [employer] procedure are in the results section. CBC W/PLT COUNT & Routine 09/18/2018 3:33 Results for this AUTO DIFFERENTIAL AM [employer] procedure are in the results section. CBC W/PLT COUNT & Routine 09/18/2018 3:33 Results for this AUTO DIFFERENTIAL AM [employer] procedure are in the results section. BASIC METABOLIC PANEL Routine 09/18/2018 3:33 Results for this (7) AM [employer] procedure are in the results section. PHOSPHORUS Routine 09/18/2018 3:33 Results for this AM [employer] procedure are in the results section. MAGNESIUM Routine 09/18/2018 3:33 Results for this AM [employer] procedure are in the results section. POCT-GLUCOSE METER Routine 09/17/2018 9:32 Results for this PM [employer] procedure are in the results section. POCT-GLUCOSE METER Routine 09/17/2018 5:42 Results for this PM [employer] procedure are in the results section. POCT-GLUCOSE METER Routine 09/17/2018 12:37 Results for this PM [employer] procedure are in the results section. POCT-GLUCOSE METER Routine 09/17/2018 8:45 Results for this AM [employer] procedure are in the results section. CBC W/PLT COUNT & Routine 09/17/2018 4:00 Results for this AUTO DIFFERENTIAL AM [employer] procedure are in the results section. PHOSPHORUS Routine 09/17/2018 4:00 Results for this AM [employer] procedure are in the results section. MAGNESIUM Routine 09/17/2018 4:00 Results for this AM [employer] procedure are in the results section. CBC W/PLT COUNT & Routine 09/17/2018 4:00 Results for this AUTO DIFFERENTIAL AM [employer] procedure are in the results section. POCT-GLUCOSE METER Routine 09/16/2018 9:24 Results for this PM [employer] procedure are in the results section. POCT-GLUCOSE METER Routine 09/16/2018 5:38 Results for this PM [employer] procedure are in the results section. HEMODIALYSIS Routine 09/16/2018 1:49 Results for this INPATIENT PM [employer] procedure are in the results section. POCT-GLUCOSE METER Routine 09/16/2018 1:27 Results for this PM [employer] procedure are in the results section. BASIC METABOLIC PANEL Add-On 09/16/2018 9:59 Results for this (7) AM [employer] procedure are in the results section. POCT-GLUCOSE METER Routine 09/16/2018 7:42 Results for this AM [employer] procedure are in the results section. CBC W/PLT COUNT & Routine 09/16/2018 5:26 Results for this AUTO DIFFERENTIAL AM [employer] procedure are in the results section. PHOSPHORUS Routine 09/16/2018 5:26 Results for this AM [employer] procedure are in the results section. MAGNESIUM Routine 09/16/2018 5:26 Results for this AM [employer] procedure are in the results section. CBC W/PLT COUNT & Routine 09/16/2018 5:26 Results for this AUTO DIFFERENTIAL AM [employer] procedure are in the results section. POCT-GLUCOSE METER Routine 09/15/2018 9:15 Results for this PM [employer] procedure are in the results section. POCT-GLUCOSE METER Routine 09/15/2018 5:23 Results for this PM [employer] procedure are in the results section. POCT-GLUCOSE METER Routine 09/15/2018 11:14 Results for this AM [employer] procedure are in the results section. XR FOOT RIGHT 3 VIEW Routine 09/15/2018 8:01 Results for this AM [employer] procedure are in the results section. POCT-GLUCOSE METER Routine 09/15/2018 7:43 Results for this AM [employer] procedure are in the results section. CBC W/PLT COUNT & Routine 09/15/2018 4:35 Results for this AUTO DIFFERENTIAL AM [employer] procedure are in the results section. PHOSPHORUS Routine 09/15/2018 4:35 Results for this AM [employer] procedure are in the results section. MAGNESIUM Routine 09/15/2018 4:35 Results for this AM [employer] procedure are in the results section. CBC W/PLT COUNT & Routine 09/15/2018 4:35 Results for this AUTO DIFFERENTIAL AM [employer] procedure are in the results section. POCT-GLUCOSE METER Routine 09/14/2018 9:25 Results for this PM [employer] procedure are in the results section. TRANSFUSION SERVICE 09/14/2018 5:50 REPORT - SCAN PM [employer]ON POCT-GLUCOSE METER Routine 09/14/2018 5:14 Results for this PM [employer] procedure are in the results section. POCT-GLUCOSE METER Routine 09/14/2018 1:12 Results for this PM [employer] procedure are in the results section. POCT-GLUCOSE METER Routine 09/14/2018 7:34 Results for this AM [employer] procedure are in the results section. CBC W/PLT COUNT & Routine 09/14/2018 3:21 Results for this AUTO DIFFERENTIAL AM [employer] procedure are in the results section. BASIC METABOLIC PANEL Routine 09/14/2018 3:21 Results for this (7) AM [employer] procedure are in the results section. PHOSPHORUS Routine 09/14/2018 3:21 Results for this AM [employer] procedure are in the results section. MAGNESIUM Routine 09/14/2018 3:21 Results for this AM [employer] procedure are in the results section. CBC W/PLT COUNT & Routine 09/14/2018 3:21 Results for this AUTO DIFFERENTIAL AM [employer] procedure are in the results section. POCT-GLUCOSE METER Routine 09/13/2018 10:27 Results for this PM [employer] procedure are in the results section. POCT-GLUCOSE METER Routine 09/13/2018 7:18 Results for this PM [employer] procedure are in the results section. POCT-GLUCOSE METER Routine 09/13/2018 5:30 Results for this PM [employer] procedure are in the results section. HEMODIALYSIS Routine 09/13/2018 2:17 INPATIENT PM [employer] POCT-GLUCOSE METER Routine 09/13/2018 9:43 Results for this AM [employer] procedure are in the results section. POCT-GLUCOSE METER Routine 09/13/2018 9:01 Results for this AM [employer] procedure are in the results section. TYPE AND SCREEN, STAT 09/13/2018 8:36 Results for this AUTOMATED AM [employer] procedure are in the results section. TISSUE EXAM AP Routine 09/13/2018 8:20 Results for this AM [employer] procedure are in the results section. IMPLANT,GRAFTJACKET 09/13/2018 7:35 Non-healing AM [employer] surgical wound, initial encounter Special Needs (GRAFT JACKET, PULSE LAVAGE, WOUND VAC) AMPUTATION,FOOT 09/13/2018 7:35 AM [employer]GEON Non-healing surgical wound, initial encounter Special Needs (GRAFT JACKET, PULSE LAVAGE, WOUND VAC) DEBRIDEMENT/I&D,WOUND EXTREMITY 09/13/2018 7:35 AM [employer]ITY [employer]GEON Non-healing surgical LOWER wound, initial encounter Special Needs (GRAFT JACKET, PULSE LAVAGE, WOUND VAC) CBC W/PLT COUNT & Routine 09/13/2018 4:45 AM Results for this AUTO DIFFERENTIAL [employer]GEON procedure are in the results section. PHOSPHORUS Routine 09/13/2018 4:45 AM Results for this [employer]GEON procedure are in the results section. MAGNESIUM Routine 09/13/2018 4:45 AM Results for this [employer]ON procedure are in the results section. CBC W/PLT COUNT & Routine 09/13/2018 4:45 AM Results for this AUTO DIFFERENTIAL [employer]ON procedure are in the results section. BASIC METABOLIC PANEL Routine 09/13/2018 4:45 AM Results for this (7) [employer] procedure are in the results section. POCT-GLUCOSE METER Routine 09/12/2018 8:47 PM Results for this [employer]ON procedure are in the results section. POCT-GLUCOSE METER Routine 09/12/2018 6:14 PM Results for this [employer]GEON procedure are in the results section. POCT-GLUCOSE METER Routine 09/12/2018 1:13 PM Results for this [employer]GEON procedure are in the results section. POCT-GLUCOSE METER Routine 09/12/2018 9:39 AM Results for this [employer] procedure are in the results section. CBC W/PLT COUNT & Routine 09/12/2018 4:34 AM Results for this AUTO DIFFERENTIAL [employer]ON procedure are in the results section. PHOSPHORUS Routine 09/12/2018 4:34 AM Results for this [employer]GEON procedure are in the results section. MAGNESIUM Routine 09/12/2018 4:34 AM Results for this [employer]ON procedure are in the results section. CBC W/PLT COUNT & Routine 09/12/2018 4:34 AM Results for this AUTO DIFFERENTIAL [employer] procedure are in the results section. POCT-GLUCOSE METER Routine 09/11/2018 9:15 PM Results for this [employer] procedure are in the results section. POCT-GLUCOSE METER Routine 09/11/2018 5:49 PM Results for this [employer]ON procedure are in the results section. POCT-GLUCOSE METER Routine 09/11/2018 1:03 PM Results for this [employer]ON procedure are in the results section. POCT-GLUCOSE METER Routine 09/11/2018 10:27 AM Results for this [employer]ON procedure are in the results section. VITAMIN B12 AND Routine 09/11/2018 10:19 AM Results for this FOLATE [employer]ON procedure are in the results section. HEMODIALYSIS Routine 09/11/2018 9:53 AM Results for this INPATIENT [employer] procedure are in the results section. POCT-GLUCOSE METER Routine 09/11/2018 7:39 AM Results for this [employer] procedure are in the results section. CBC W/PLT COUNT & Routine 09/11/2018 4:51 AM Results for this AUTO DIFFERENTIAL [facility] procedure are in the results section. PHOSPHORUS Routine 09/11/2018 4:51 AM Results for this [employer]ON procedure are in the results section. MAGNESIUM Routine 09/11/2018 4:51 AM Results for this [employer] procedure are in the results section. CBC W/PLT COUNT & Routine 09/11/2018 4:51 AM Results for this AUTO DIFFERENTIAL [facility] procedure are in the results section. POCT-GLUCOSE METER Routine 09/10/2018 11:08 PM Results for this [employer]GEON procedure are in the results section. POCT-GLUCOSE METER Routine 09/10/2018 5:31 PM Results for this [employer]GE[employer] procedure are in the results section. POCT-GLUCOSE METER Routine 09/10/2018 1:40 PM Results for this [employer] procedure are in the results section. POCT-GLUCOSE METER Routine 09/10/2018 9:47 AM Results for this [employer] procedure are in the results section. CBC W/PLT COUNT & Routine 09/10/2018 4:50 AM Results for this AUTO DIFFERENTIAL [employer] procedure are in the results section. PHOSPHORUS Routine 09/10/2018 4:50 AM Results for this [employer]GEON procedure are in the results section. MAGNESIUM Routine 09/10/2018 4:50 AM Results for this [employer] procedure are in the results section. CBC W/PLT COUNT & Routine 09/10/2018 4:50 AM Results for this AUTO DIFFERENTIAL [employer] procedure are in the results section. POCT-GLUCOSE METER Routine 09/09/2018 9:06 PM Results for this [employer] procedure are in the results section. POCT-GLUCOSE METER Routine 09/09/2018 4:46 PM Results for this [employer] procedure are in the results section. HEMODIALYSIS Routine 09/09/2018 4:12 PM Results for this INPATIENT [employer] procedure are in the results section. POCT-GLUCOSE METER Routine 09/09/2018 1:04 PM Results for this [employer] procedure are in the results section. POCT-GLUCOSE METER Routine 09/09/2018 9:24 AM Results for this [employer] procedure are in the results section. CBC W/PLT COUNT & Routine 09/09/2018 3:56 AM Results for this AUTO DIFFERENTIAL [employer] procedure are in the results section. PHOSPHORUS Routine 09/09/2018 3:56 AM Results for this [employer]GEON procedure are in the results section. MAGNESIUM Routine 09/09/2018 3:56 AM Results for this [employer] procedure are in the results section. CBC W/PLT COUNT & Routine 09/09/2018 3:56 AM Results for this AUTO DIFFERENTIAL [facility] procedure are in the results section. BASIC METABOLIC PANEL Routine 09/09/2018 3:56 AM Results for this (7) [employer] procedure are in the results section. POCT-GLUCOSE METER Routine 09/08/2018 9:44 PM Results for this [employer] procedure are in the results section. TRANSFUSION SERVICE 09/08/2018 6:00 PM REPORT - SCAN [employer]ON POCT-GLUCOSE METER Routine 09/08/2018 5:06 PM Results for this [employer]ON procedure are in the results section. POCT-GLUCOSE METER Routine 09/08/2018 1:52 PM Results for this [employer] procedure are in the results section. POCT-GLUCOSE METER Routine 09/08/2018 10:20 AM Results for this [employer] procedure are in the results section. POCT-GLUCOSE METER Routine 09/08/2018 7:58 AM Results for this [employer] procedure are in the results section. CBC W/PLT COUNT & Routine 09/08/2018 3:32 AM Results for this AUTO DIFFERENTIAL [facility] procedure are in the results section. PHOSPHORUS Routine 09/08/2018 3:32 AM Results for this [employer]GEON procedure are in the results section. MAGNESIUM Routine 09/08/2018 3:32 AM Results for this [employer] procedure are in the results section. CBC W/PLT COUNT & Routine 09/08/2018 3:32 AM Results for this AUTO DIFFERENTIAL [facility]ON procedure are in the results section. PREPARE LEUKO-REDUCED Routine 09/07/2018 11:54 PM Results for this RBC [facility]GEON procedure are in the results section. PREPARE LEUKO-REDUCED Routine 09/07/2018 11:54 PM Results for this RBC [facility] procedure are in the results section. POCT-GLUCOSE METER Routine 09/07/2018 9:32 PM Results for this [employer] procedure are in the results section. TRANSFUSION SERVICE 09/07/2018 6:01 PM REPORT - SCAN [facility]GEON POCT-GLUCOSE METER Routine 09/07/2018 4:46 PM Results for this [employer]ON procedure are in the results section. POCT-GLUCOSE METER Routine 09/07/2018 12:43 PM Results for this [employer]ON procedure are in the results section. POCT-GLUCOSE METER Routine 09/07/2018 11:42 AM Results for this [employer]ON procedure are in the results section. XR FOOT RIGHT 3 VIEW Routine 09/07/2018 10:19 AM Results for this [employer]ON procedure are in the results section. POCT-GLUCOSE METER Routine 09/07/2018 9:55 AM Results for this [employer] procedure are in the results section. FUNGUS CULTURE + Routine 09/07/2018 9:04 AM Results for this SMEAR [facility] procedure are in the results section. AFB CULTURE + SMEAR Routine 09/07/2018 9:03 AM Results for this [employer] procedure are in the results section. ANAEROBIC CULTURE Routine 09/07/2018 9:03 AM Results for this [employer] procedure are in the results section. SURGICALLY OBTAINED Routine 09/07/2018 9:03 AM Results for this CULTURE + GRAM STAIN [employer]GEON procedure are in the results section. FUNGUS CULTURE + Routine 09/07/2018 8:40 AM Results for this SMEAR [employer]ON procedure are in the results section. AFB CULTURE + SMEAR Routine 09/07/2018 8:39 AM Results for this [employer]GEON procedure are in the results section. ANAEROBIC CULTURE Routine 09/07/2018 8:39 AM Results for this [employer]ON procedure are in the results section. SURGICALLY OBTAINED Routine 09/07/2018 8:39 AM Results for this CULTURE + GRAM STAIN [employer] procedure are in the results section. FUNGUS CULTURE + Routine 09/07/2018 8:39 AM Results for this SMEAR [facility]ON procedure are in the results section. AFB CULTURE + SMEAR Routine 09/07/2018 8:37 AM Results for this [employer]GEON procedure are in the results section. ANAEROBIC CULTURE Routine 09/07/2018 8:37 AM Results for this [employer]ON procedure are in the results section. SURGICALLY OBTAINED Routine 09/07/2018 8:37 AM Results for this CULTURE + GRAM STAIN [facility]GEON procedure are in the results section. TISSUE EXAM AP Routine 09/07/2018 8:37 AM Results for this [employer]ON procedure are in the results section. AMPUTATION,FOOT 09/07/2018 8:00 AM Open wound of [employer]GEON right lower extremity, initial encounter Case Notes 2 HOURS Special Needs (GUILLITIN) POCT-GLUCOSE METER Routine 09/07/2018 4:55 AM Results for this [employer]ON procedure are in the results section. CBC W/PLT COUNT & AUTO Routine 09/07/2018 4:37 AM Results for this DIFFERENTIAL [employer]ON procedure are in the results section. POTASSIUM Routine 09/07/2018 4:37 AM Results for this [employer]GEON procedure are in the results section. PHOSPHORUS Routine 09/07/2018 4:37 AM Results for this [employer]ITY [employer]GEON procedure are in the results section. MAGNESIUM Routine 09/07/2018 4:37 AM Results for this [employer]GEON procedure are in the results section. CBC W/PLT COUNT & AUTO Routine 09/07/2018 4:37 AM Results for this DIFFERENTIAL [employer]ON procedure are in the results section. POCT-GLUCOSE METER Routine 09/06/2018 8:29 PM Results for this [employer]ON procedure are in the results section. TRANSFUSION SERVICE 09/06/2018 6:01 PM REPORT - SCAN [employer]GEON TRANSFUSE Routine 09/06/2018 5:16 PM LEUKO-REDUCED RED U[employer]ITY [employer]GEON BLOOD CELLS POCT-GLUCOSE METER Routine 09/06/2018 3:36 PM Results for this [employer]GEON procedure are in the results section. HEMODIALYSIS INPATIENT Routine 09/06/2018 2:29 PM [employer]GEON TRANSFUSE Routine 09/06/2018 12:13 PM LEUKO-REDUCED RED [employer]ITY [employer]GEON BLOOD CELLS POTASSIUM Routine 09/06/2018 9:28 AM Results for this [employer]ON procedure are in the results section. CBC W/PLT COUNT & AUTO Routine 09/06/2018 4:45 AM Results for this DIFFERENTIAL [employer]ON procedure are in the results section. PHOSPHORUS Routine 09/06/2018 4:45 AM Results for this [employer]GEON procedure are in the results section. MAGNESIUM Routine 09/06/2018 4:45 AM Results for this [employer]GEON procedure are in the results section. CBC W/PLT COUNT & AUTO Routine 09/06/2018 4:45 AM Results for this DIFFERENTIAL [employer]ON procedure are in the results section. POCT-GLUCOSE METER Routine 09/05/2018 5:41 PM Results for this [employer]GEON procedure are in the results section. POCT-GLUCOSE METER Routine 09/05/2018 12:53 PM Results for this [employer]ON procedure are in the results section. TYPE AND SCREEN, Routine 09/05/2018 10:17 AM Results for this AUTOMATED [facility] procedure are in the results section. BLOOD CULTURE Routine 09/05/2018 10:13 AM Results for this [employer]GEON procedure are in the results section. POCT-GLUCOSE METER Routine 09/05/2018 8:17 AM Results for this [employer]GEON procedure are in the results section. BLOOD CULTURE Routine 09/05/2018 6:47 AM Results for this [employer]GEON procedure are in the results section. CBC W/PLT COUNT & AUTO Routine 09/05/2018 4:49 AM Results for this DIFFERENTIAL [employer]GEON procedure are in the results section. PHOSPHORUS Routine 09/05/2018 4:49 AM Results for this [employer]ITY [employer]GEON procedure are in the results section. MAGNESIUM Routine 09/05/2018 4:49 AM Results for this [employer]GEON procedure are in the results section. CBC W/PLT COUNT & AUTO Routine 09/05/2018 4:49 AM Results for this DIFFERENTIAL [employer]ON procedure are in the results section. POCT-GLUCOSE METER Routine 09/04/2018 11:28 PM Results for this [employer]ON procedure are in the results section. HEMODIALYSIS INPATIENT Routine 09/04/2018 10:10 PM Results for this [employer] procedure are in the results section. PERIPHERAL ANGIOS / 09/04/2018 3:33 PM PAD (peripheral AORTOGRAM U[employer]ITY SURGEON artery disease) (HCC) XR FOOT RIGHT 3 VIEW STAT 09/04/2018 1:28 PM Results for this [employer]GEON procedure are in the results section. POCT-GLUCOSE METER Routine 09/04/2018 12:03 PM Results for this [employer]GEON procedure are in the results section. POCT-GLUCOSE METER Routine 09/04/2018 7:59 AM Results for this [employer]GEON procedure are in the results section. CBC W/PLT COUNT & AUTO Routine 09/04/2018 3:50 AM Results for this DIFFERENTIAL [employer]ON procedure are in the results section. BASIC METABOLIC PANEL Routine 09/04/2018 3:50 AM Results for this (7) [employer]ON procedure are in the results section. PHOSPHORUS Routine 09/04/2018 3:50 AM Results for this [employer]ITY [employer]GEON procedure are in the results section. MAGNESIUM Routine 09/04/2018 3:50 AM Results for this [employer]GEON procedure are in the results section. CBC W/PLT COUNT & AUTO Routine 09/04/2018 3:50 AM Results for this DIFFERENTIAL [employer]ON procedure are in the results section. ARTERIAL DOPPLER ARM, Routine 09/03/2018 9:40 PM Results for this LEFT [employer]GEON procedure are in the results section. VENOUS DOPPLER ARM, Routine 09/03/2018 9:26 PM Results for this LEFT [employer]ON procedure are in the results section. POCT-GLUCOSE METER Routine 09/03/2018 8:30 PM Results for this [employer]ON procedure are in the results section. POCT-GLUCOSE METER Routine 09/03/2018 6:03 PM Results for this [employer]ITY [employer]GEON procedure are in the results section. POCT-GLUCOSE METER Routine 09/03/2018 12:48 PM Results for this [employer]ITY SURGEON procedure are in the results section. RESPIRATORY PANEL [facility] Routine 09/03/2018 12:32 PM Results for this [employer]ITY SURGEON procedure are in the results section. POCT-GLUCOSE METER Routine 09/03/2018 7:52 AM Results for this [employer] SURGEON procedure are in the results section. CBC W/PLT COUNT & AUTO Routine 09/03/2018 3:57 AM Results for this DIFFERENTIAL [employer]GEON procedure are in the results section. BASIC METABOLIC PANEL Routine 09/03/2018 3:57 AM Results for this (7) [employer]GEON procedure are in the results section. PHOSPHORUS Routine 09/03/2018 3:57 AM Results for this [employer] SURGEON procedure are in the results section. MAGNESIUM Routine 09/03/2018 3:57 AM Results for this [employer]ITY SURGEON procedure are in the results section. CBC W/PLT COUNT & AUTO Routine 09/03/2018 3:57 AM Results for this DIFFERENTIAL [employer] SURGEON procedure are in the results section. POCT-GLUCOSE METER Routine 09/02/2018 8:46 PM Results for this [employer]ITY SURGEON procedure are in the results section. POCT-GLUCOSE METER Routine 09/02/2018 5:25 PM Results for this [employer]ITY SURGEON procedure are in the results section. HEMODIALYSIS INPATIENT Routine 09/02/2018 3:33 PM Results for this [employer] SURGEON procedure are in the results section. POCT-GLUCOSE METER Routine 09/02/2018 1:25 PM Results for this [employer]ITY SURGEON procedure are in the results section. POCT-GLUCOSE METER Routine 09/02/2018 7:59 AM Results for this [employer]ITY SURGEON procedure are in the results section. CBC W/PLT COUNT & AUTO Routine 09/02/2018 3:21 AM Results for this DIFFERENTIAL [employer]GEON procedure are in the results section. PHOSPHORUS Routine 09/02/2018 3:21 AM Results for this [employer]ITY SURGEON procedure are in the results section. MAGNESIUM Routine 09/02/2018 3:21 AM Results for this [employer]ITY SURGEON procedure are in the results section. CBC W/PLT COUNT & AUTO Routine 09/02/2018 3:21 AM Results for this DIFFERENTIAL [employer] SURGEON procedure are in the results section. BASIC METABOLIC PANEL Routine 09/02/2018 3:21 AM Results for this (7) [employer]GEON procedure are in the results section. FERRITIN Routine 09/02/2018 3:21 AM Results for this [employer]ITY SURGEON procedure are in the results section. IRON, TIBC, % SAT. Routine 09/02/2018 3:21 AM Results for this (WITHOUT FERRITIN) [employer]GEON procedure are in the results section. POCT-GLUCOSE METER Routine 09/01/2018 9:02 PM Results for this [employer]ITY SURGEON procedure are in the results section. POCT-GLUCOSE METER Routine 09/01/2018 5:31 PM Results for this [employer]ITY SURGEON procedure are in the results section. POCT-GLUCOSE METER Routine 09/01/2018 1:04 PM Results for this UPP[employer]TREMITY SURGEON procedure are in the results section. POCT-GLUCOSE METER Routine 09/01/2018 9:46 AM Results for this [employer]ITY SURGEON procedure are in the results section. POCT-GLUCOSE METER Routine 09/01/2018 6:30 AM Results for this [employer]ITY SURGEON procedure are in the results section. CBC W/PLT COUNT & AUTO Routine 09/01/2018 5:02 AM Results for this DIFFERENTIAL [employer]GEON procedure are in the results section. PHOSPHORUS Routine 09/01/2018 5:02 AM Results for this [employer]ITY SURGEON procedure are in the results section. MAGNESIUM Routine 09/01/2018 5:02 AM Results for this [employer]ITY SURGEON procedure are in the results section. CBC W/PLT COUNT & AUTO Routine 09/01/2018 5:02 AM Results for this DIFFERENTIAL [employer]GEON procedure are in the results section. BASIC METABOLIC PANEL Routine 09/01/2018 5:02 AM Results for this (7) [employer]GEON procedure are in the results section. TRANSFUSION SERVICE 08/31/2018 6:01 PM REPORT - SCAN [employer]GEON POCT-GLUCOSE METER Routine 08/31/2018 5:03 PM Results for this [employer]ITY SURGEON procedure are in the results section. POCT-GLUCOSE METER Routine 08/31/2018 12:38 PM Results for this [employer]ITY SURGEON procedure are in the results section. POCT-GLUCOSE METER Routine 08/31/2018 7:49 AM Results for this [employer]GEON procedure are in the results section. CBC W/PLT COUNT & AUTO Routine 08/31/2018 4:05 AM Results for this DIFFERENTIAL [employer]GEON procedure are in the results section. PHOSPHORUS Routine 08/31/2018 4:05 AM Results for this [employer]ITY SURGEON procedure are in the results section. MAGNESIUM Routine 08/31/2018 4:05 AM Results for this [employer]ITY SURGEON procedure are in the results section. CBC W/PLT COUNT & AUTO Routine 08/31/2018 4:05 AM Results for this DIFFERENTIAL [employer]GEON procedure are in the results section. BASIC METABOLIC PANEL Routine 08/31/2018 4:05 AM Results for this (7) [employer]GEON procedure are in the results section. TROPONIN I Routine 08/31/2018 4:05 AM Results for this [employer]GEON procedure are in the results section. TROPONIN I Routine 08/30/2018 11:11 PM Results for this [employer]ITY SURGEON procedure are in the results section. POCT-GLUCOSE METER Routine 08/30/2018 9:09 PM Results for this [employer]ITY SURGEON procedure are in the results section. HEMODIALYSIS INPATIENT Routine 08/30/2018 9:06 PM [employer]ITY SURGEON TROPONIN I Routine 08/30/2018 6:27 PM Results for this UPPER [employer]REMITY SURGEON procedure are in the results section. POCT-GLUCOSE METER Routine 08/30/2018 6:26 PM Results for this U[employer]ITY SURGEON procedure are in the results section. ECG 12-LEAD Routine 08/30/2018 5:10 PM Results for this UPP[employer]REMITY SURGEON procedure are in the results section. PHOSPHORUS STAT 08/30/2018 4:33 PM Results for this [employer]ITY SURGEON procedure are in the results section. TROPONIN I STAT 08/30/2018 4:33 PM Results for this [employer]ITY SURGEON procedure are in the results section. MAGNESIUM STAT 08/30/2018 4:33 PM Results for this [employer]ITY SURGEON procedure are in the results section. BASIC METABOLIC PANEL STAT 08/30/2018 4:33 PM Results for this (7) [employer]GEON procedure are in the results section. CBC W/PLT COUNT & AUTO Routine 08/30/2018 12:27 PM Results for this DIFFERENTIAL [employer] SURGEON procedure are in the results section. BASIC METABOLIC PANEL Routine 08/30/2018 12:27 PM Results for this (7) [employer]GEON procedure are in the results section. CBC W/PLT COUNT & AUTO Routine 08/30/2018 12:27 PM Results for this DIFFERENTIAL [employer] SURGEON procedure are in the results section. POCT-ACT Routine 08/30/2018 11:27 AM Results for this [employer]GEON procedure are in the results section. HGB/HCT (H&H) - STAT Routine 08/30/2018 11:26 AM Results for this LAB [employer]GEON procedure are in the results section. GLUCOSE-STAT LAB Routine 08/30/2018 11:26 AM Results for this [employer] SURGEON procedure are in the results section. POTASSIUM-STAT LAB Routine 08/30/2018 11:26 AM Results for this [employer]ITY SURGEON procedure are in the results section. SODIUM NA-STAT LAB Routine 08/30/2018 11:26 AM Results for this [employer]ITY SURGEON procedure are in the results section. BLOOD GAS, ARTERIAL Routine 08/30/2018 11:26 AM Results for this [employer]ITY SURGEON procedure are in the results section. RRL CRITICAL LABS Routine 08/30/2018 11:26 AM Results for this (ABG,NA,K,H&H,GLUCOSE) [employer]GEON procedure are in the results section. POCT-ACT Routine 08/30/2018 10:41 AM Results for this [employer]ITY SURGEON procedure are in the results section. POCT-ACT Routine 08/30/2018 10:16 AM Results for this [employer] SURGEON procedure are in the results section. REVASCULARIZATION,DIST 08/30/2018 7:30 AM PAD (peripheral AL AND INTERVAL U[employer]ITY SURGEON artery disease) LIGATION (DRIL) (HCC) Case Notes RIGHT LEG DISTAL VEIN ARTERIALIZATION4 HRS PER CRESENCIO POCT-GLUCOSE METER Routine 08/30/2018 5:59 AM [employer]REMITY SURGEON CBC W/PLT COUNT & AUTO Routine 08/30/2018 2:50 AM [employer]REMITY SURGEON Results for this DIFFERENTIAL procedure are in the results section. CBC W/PLT COUNT & AUTO STAT 08/30/2018 2:50 AM [employer]ITY SURGEON Results for this DIFFERENTIAL procedure are in the results section. TYPE AND SCREEN, AUTOMATED Routine 08/30/2018 2:50 AM U[employer]REMITY SURGEON PHOSPHORUS Routine 08/30/2018 2:50 AM U[employer]TREMITY SURGEON MAGNESIUM Routine 08/30/2018 2:50 AM U[employer] EXTREMITY SURGEON CBC W/PLT COUNT & AUTO Routine 08/30/2018 2:50 AM [employer]ITY SURGEON Results for this DIFFERENTIAL procedure are in the results section. CALCIUM, IONIZED Routine 08/30/2018 2:50 AM [employer]REMITY SURGEON BASIC METABOLIC PANEL (7) Routine 08/30/2018 2:50 AM UPPER EXTREMITY SURGEON PROTHROMBIN TIME/INR Routine 08/30/2018 2:50 AM U[employer] EXTREMITY SURGEON BASIC METABOLIC PANEL (7) STAT 08/30/2018 2:50 AM UPPER EXTREMITY SURGEON CBC W/PLT COUNT & AUTO STAT 08/30/2018 2:50 AM [employer]ITY SURGEON Results for this DIFFERENTIAL procedure are in the results section. POCT-GLUCOSE METER Routine 08/30/2018 12:02 AM [employer]ITY SURGEON POCT-GLUCOSE METER Routine 08/29/2018 5:21 PM [employer]ITY SURGEON POCT-GLUCOSE METER Routine 08/29/2018 1:18 PM U[employer]TREMITY SURGEON POCT-GLUCOSE METER Routine 08/29/2018 9:30 AM U[employer] EXTREMITY SURGEON BASIC METABOLIC PANEL (7) Routine 08/29/2018 4:23 AM UPPER EXTREMITY SURGEON POCT-GLUCOSE METER Routine 08/28/2018 9:27 PM UPPER EXTREMITY SURGEON POCT-GLUCOSE METER Routine 08/28/2018 5:55 PM U[employer] EXTREMITY SURGEON POCT-GLUCOSE METER Routine 08/28/2018 12:49 PM [employer]ITY SURGEON HEMODIALYSIS INPATIENT Routine 08/28/2018 12:40 PM U[employer]TREMITY SURGEON POCT-GLUCOSE METER Routine 08/28/2018 9:47 AM UPPER EXTREMITY SURGEON MAGNESIUM Routine 08/28/2018 3:57 AM UPPER EXTREMITY SURGEON BASIC METABOLIC PANEL (7) Routine 08/28/2018 3:57 AM UPPER EXTREMITY SURGEON POCT-GLUCOSE METER Routine 08/27/2018 9:13 PM UPPER EXTREMITY SURGEON POCT-GLUCOSE METER Routine 08/27/2018 5:53 PM UPP[employer] EXTREMITY SURGEON POCT-GLUCOSE METER Routine 08/27/2018 11:52 AM UPPER EXTREMITY SURGEON POCT-GLUCOSE METER Routine 08/27/2018 7:36 AM UPPER EXTREMITY SURGEON CBC W/PLT COUNT & AUTO Routine 08/27/2018 4:30 AM U[employer]REMITY SURGEON Results for this DIFFERENTIAL procedure are in the results section. PHOSPHORUS Routine 08/27/2018 4:30 AM UPPER EXTREMITY SURGEON MAGNESIUM Routine 08/27/2018 4:30 AM UPPER EXTREMITY SURGEON CBC W/PLT COUNT & AUTO Routine 08/27/2018 4:30 AM U[employer]REMITY SURGEON Results for this DIFFERENTIAL procedure are in the results section. BASIC METABOLIC PANEL (7) Routine 08/27/2018 4:30 AM UPPER EXTREMITY SURGEON POCT-GLUCOSE METER Routine 08/26/2018 9:12 PM UPPER EXTREMITY SURGEON POCT-GLUCOSE METER Routine 08/26/2018 5:09 PM UPP[employer] EXTREMITY SURGEON POCT-GLUCOSE METER Routine 08/26/2018 12:37 PM U[employer]ITY SURGEON HEMODIALYSIS INPATIENT Routine 08/26/2018 12:31 PM UPPER [employer]TREMITY SURGEON CBC W/PLT COUNT & AUTO Routine 08/26/2018 6:07 AM [employer]REMITY SURGEON Results for this DIFFERENTIAL procedure are in the results section. COMPREHENSIVE METABOLIC Routine 08/26/2018 6:07 AM U[employer]REMITY SURGEON Results for this PANEL procedure are in the results section. CALCIUM, IONIZED Routine 08/26/2018 6:07 AM UPPER EXTREMITY SURGEON PHOSPHORUS Routine 08/26/2018 6:07 AM UPPER EXTREMITY SURGEON MAGNESIUM Routine 08/26/2018 6:07 AM UPPER EXTREMITY SURGEON CBC W/PLT COUNT & AUTO Routine 08/26/2018 6:07 AM U[employer]REMITY SURGEON Results for this DIFFERENTIAL procedure are in the results section. POCT-GLUCOSE METER Routine 08/25/2018 8:52 PM [employer]TREMITY SURGEON POCT-GLUCOSE METER Routine 08/25/2018 5:08 PM U[employer]TREMITY SURGEON POCT-GLUCOSE METER Routine 08/25/2018 12:55 PM UPPER EXTREMITY SURGEON POCT-GLUCOSE METER Routine 08/25/2018 9:33 AM UPPER EXTREMITY SURGEON CBC W/PLT COUNT & AUTO Routine 08/25/2018 4:37 AM U[employer]REMITY SURGEON Results for this DIFFERENTIAL procedure are in the results section. PHOSPHORUS Routine 08/25/2018 4:37 AM UPPER EXTREMITY SURGEON MAGNESIUM Routine 08/25/2018 4:37 AM UPPER EXTREMITY SURGEON CBC W/PLT COUNT & AUTO Routine 08/25/2018 4:37 AM UPP[employer] EXTREMITY SURGEON Results for this DIFFERENTIAL procedure are in the results section. BASIC METABOLIC PANEL (7) Routine 08/25/2018 4:37 AM UPPER EXTREMITY SURGEON POCT-GLUCOSE METER Routine 08/25/2018 4:30 AM UPPER EXTREMITY SURGEON POCT-GLUCOSE METER Routine 08/24/2018 9:19 PM UPPER [employer]ITY SURGEON POCT-GLUCOSE METER Routine 08/24/2018 5:23 PM UPPER EXTREMITY SURGEON VEIN MAPPING LEG RIGHT Routine 08/24/2018 4:08 PM UPPER EXTREMITY SURGEON ARTERIAL DOPPLER LEG, RIGHT Routine 08/24/2018 4:08 PM UPPER EXTREMITY SURGEON POCT-GLUCOSE METER Routine 08/24/2018 2:04 PM UPPER EXTREMITY SURGEON POCT-GLUCOSE METER Routine 08/24/2018 11:54 AM UPPER EXTREMITY SURGEON POCT-GLUCOSE METER Routine 08/24/2018 9:07 AM UPPER EXTREMITY SURGEON POCT-GLUCOSE METER Routine 08/24/2018 8:18 AM UPPER EXTREMITY SURGEON POCT-GLUCOSE METER Routine 08/24/2018 7:32 AM UPPER EXTREMITY SURGEON CBC W/PLT COUNT & AUTO Routine 08/24/2018 3:55 AM U[employer]REMITY SURGEON Results for this DIFFERENTIAL procedure are in the results section. RETICULOCYTE COUNT Routine 08/24/2018 3:55 AM UPPER [employer]TREMITY SURGEON FERRITIN Routine 08/24/2018 3:55 AM UPPER EXTREMITY SURGEON IRON, TIBC, % SAT. (WITHOUT Routine 08/24/2018 3:55 AM UPPER EXTREMITY SURGEON Results for this FERRITIN) procedure are in the results section. PHOSPHORUS Routine 08/24/2018 3:55 AM UPPER EXTREMITY SURGEON CBC W/PLT COUNT & AUTO Routine 08/24/2018 3:55 AM UPP[employer]REMITY SURGEON Results for this DIFFERENTIAL procedure are in the results section. MAGNESIUM Routine 08/24/2018 3:55 AM UPPER EXTREMITY SURGEON BASIC METABOLIC PANEL (7) Routine 08/24/2018 3:55 AM UPPER EXTREMITY SURGEON POCT-GLUCOSE METER Routine 08/23/2018 9:01 PM UPPER [employer]ITY SURGEON POCT-GLUCOSE METER Routine 08/23/2018 5:31 PM UPP[employer]TREMITY SURGEON POCT-GLUCOSE METER Routine 08/23/2018 12:07 PM [employer]ITY SURGEON HEMODIALYSIS INPATIENT Routine 08/23/2018 11:33 AM UPPER EXTREMITY SURGEON POCT-GLUCOSE METER Routine 08/23/2018 11:29 AM UPPER EXTREMITY SURGEON POCT-GLUCOSE METER Routine 08/23/2018 7:39 AM UPPER EXTREMITY SURGEON CBC W/PLT COUNT & AUTO Routine 08/23/2018 4:48 AM [employer]REMITY SURGEON Results for this DIFFERENTIAL procedure are in the results section. COMPREHENSIVE METABOLIC Routine 08/23/2018 4:48 AM [employer]ITY SURGEON Results for this PANEL procedure are in the results section. PHOSPHORUS Routine 08/23/2018 4:48 AM UPPER EXTREMITY SURGEON CBC W/PLT COUNT & AUTO Routine 08/23/2018 4:48 AM U[employer]TREMITY SURGEON Results for this DIFFERENTIAL procedure are in the results section. MAGNESIUM Routine 08/23/2018 4:48 AM UPPER EXTREMITY SURGEON POCT-GLUCOSE METER Routine 08/22/2018 8:56 PM UPPER [employer]TREMITY SURGEON XR CHEST 1 VIEW Routine 08/22/2018 6:40 PM [employer]ITY [employer]GEON Results for this PORTABLE/BEDSIDE procedure are in the results section. PHOSPHORUS Routine 08/22/2018 6:20 PM UPPER [employer]ITY SURGEON POCT-GLUCOSE METER Routine 08/22/2018 5:50 PM UPPER EXTREMITY SURGEON HEPATITIS B SURFACE ANTIGEN Routine 08/22/2018 12:50 PM UPP[employer]TREMITY SURGEON POCT-GLUCOSE METER Routine 08/22/2018 10:32 AM UPPER EXTREMITY SURGEON POCT-GLUCOSE METER Routine 08/22/2018 7:04 AM UPPER EXTREMITY SURGEON POCT-GLUCOSE METER Routine 08/22/2018 6:35 AM UPPER EXTREMITY SURGEON CBC W/PLT COUNT & AUTO Routine 08/22/2018 3:38 AM [employer]ITY SURGEON Results for this DIFFERENTIAL procedure are in the results section. PT/APTT Routine 08/22/2018 3:38 AM UPPER EXTREMITY SURGEON CBC W/PLT COUNT & AUTO Routine 08/22/2018 3:38 AM U[employer]REMITY SURGEON Results for this DIFFERENTIAL procedure are in the results section. MAGNESIUM Routine 08/22/2018 3:38 AM UPPER EXTREMITY SURGEON BASIC METABOLIC PANEL (7) Routine 08/22/2018 3:38 AM UPPER [employer]TREMITY SURGEON after 02/14/2018 Results RHYTHM STRIP - SCAN (12/12/2018 1:22 PM CDT)Only the most recent of2 resultswithin the time period is included. Narrative Performed At CARDIAC CATH REPORT - SCAN (10/08/2018 12:41 PM UPPER EXTREMITY SURGEON) Narrative Performed At POC-Glucose meter (09/18/2018 1:32 PM UPPER EXTREMITY SURGEON)Only the most recent of115 resultswithin the time period is included. POC-Glucose Meter 148 (H)Comment: TESTED AT 70 - 110 mg/dL [facility] [address] [facility] [address] Specimen Blood Performing Organization Address City/State/Zipcode Phone Number [address] [phone] CENTER HEMODIALYSIS INPATIENT (09/18/2018 1:06 PM UPPER EXTREMITY SURGEON) Narrative Performed At Elan Valdez RN 09/18/20181:07 [...] count + automated diff (09/18/2018 3:33 AM UPPER EXTREMITY SURGEON)Only the most recent of28 resultswithin the time period is included. WBC 7.8 3.5 - 10.5 K/L [facility] RBC 2.72 (L) 4.63 - 6.08 M/L [facility] Hemoglobin 8.9 (L) 13.7 - 17.5 GM/DL [facility] Hematocrit 27.9 (L) 40.1 - 51.0 % [facility] MCV 102.6 (H) 79.0 - 92.2 fL [facility] MCH 32.7 (H) 25.7 - 32.2 pg [facility] MCHC 31.9 (L) 32.3 - 36.5 GM/DL [facility] RDW 17.2 (H) 11.6 - 14.4 % [facility] Platelets 244 150 - 450 K/CU MM [facility] MPV 11.2 9.4 - 12.4 fL [facility] nRBC 0 0 - 0 /100 WBC [facility] % Neutros 62 % [facility] % Lymphs 19 % [facility] % Monos 10 % [facility] % Eos 7 % [facility] % Baso 1 % [facility] # Neutros 4.83 1.78 - 5.38 K/L [facility] # Lymphs 1.49 1.32 - 3.57 K/L [facility] # Monos 0.80 0.30 - 0.82 K/L [facility] # Eos 0.51 0.04 - 0.54 K/L [facility] # Baso 0.05 0.01 - 0.08 K/L [facility] Immature 1 0 - 1 % [facility] Specimen Blood Performing Organization Address City/State/Zipcode Phone Number [address] [address] CENTER Phosphorus (09/18/2018 3:33 AM UPPER EXTREMITY SURGEON)Only the most recent of27 resultswithin the time period is included. Phosphorus 3.2 2.3 - 4.7 mg/dL [facility] Specimen Blood Performing Organization Address City/[facility]/Zipcode Phone Number [address] [address] [phone] CENTER Magnesium (09/18/2018 3:33 AM UPPER EXTREMITY SURGEON)Only the most recent of28 resultswithin the time period is included. Magnesium 2.1 1.6 - 2.6 mg/dL [facility] Specimen Blood Performing Organization Address City/[facility]/Zipcode Phone Number [address] [address] [place] Basic Metabolic Panel (09/18/2018 3:33 AM UPPER EXTREMITY SURGEON)Only the most recent of20 resultswithin the time period is included. Sodium 136 136 - 145 meq/L [facility] Potassium 4.3 3.5 - 5.1 meq/L [facility] Chloride 97 (L) 98 - 107 meq/L [facility] CO2 27 22 - 29 meq/L [facility] BUN 43 (H) 7 - 21 mg/dL [facility] Creatinine 5.04 (H) 0.57 - 1.25 mg/dL [facility] Glucose 94 70 - 105 mg/dL [facility] Calcium 8.7 8.4 - 10.2 mg/dL [facility] EGFR 11Comment: ESTIMATED GFR IS mL/min/1.73 sq m [facility] NOT ACCURATE CREATININE [facility] CENTER CLEARANCE IN PREDICTING GLOMERULAR FILTRATION RATE. ESTIMATED GFR IS NOT APPLICABLE FOR DIALYSIS PATIENTS. Specimen Blood Performing Organization Address City/State/Zipcode Phone Number [facility] [address] [place] [address] [phone] CENTER HEMODIALYSIS INPATIENT (09/16/2018 1:49 PM UPPER EXTREMITY SURGEON) Narrative Performed At kSinny Montero RN 09/16/20181:50 PM Hemodialysis completed over [...] foot 3 views right (09/15/2018 8:01 AM UPPER EXTREMITY SURGEON)Only the most recent of3 resultswithin the time period is included. Specimen Narrative Performed At FINAL REPORT [facility] RIGHT FOOT 3 VIEWS HISTORY: Status post [...] MD Report Verified Date/Time:09/15/2018 08:28:29 Reading Location: [address] Transitional Reading Room Procedure Note Interface, External Ris In - 09/15/2018 8:30 AM UPPER EXTREMITY SURGEON FINAL REPORT RIGHT FOOT 3 VIEWS HISTORY: [...] Report Verified Date/Time: 09/15/2018 08:28:29 Reading Location: [address] Transitional Reading Room Performing Organization Address City/State/Zipcode Phone Number [facility] TRANSFUSION SERVICE REPORT - SCAN (09/14/2018 5:50 PM UPPER EXTREMITY SURGEON)Only the most recent of5 resultswithin the time period is included. Narrative Performed At Type and screen, automated (09/13/2018 8:36 AM UPPER EXTREMITY SURGEON)Only the most recent of3 resultswithin the time period is included. ABO/RH AUTOMATED (BEAKER) O POSITIVE [facility] Ab Scrn NEGATIVE [facility] Specimen Blood Performing Organization Address City/State/Zipcode Phone Number [facility] [address] [place] [address] Tissue Exam (09/13/2018 8:20 AM UPPER EXTREMITY SURGEON)Only the most recent of2 resultswithin the time period is included. Case Report Surgical Pathology Report Case: [id number] [facility] Authorizing Provider:Aba Millan DPMCollected: 09/13/2018 0820 [facility] Ordering Location: [facility] PERIOPERATIVE Received: 09/13/2018 0926 SERVICES Pathologist: Carrol Trammell MD Specimen:Metatarsal, Right DIAGNOSIS BONE, RIGHT FOOT , METATARSAL, DEBRIDEMENT: [facility] - GANGRENOUS NECROSIS [facility] - OSTEOMYELITIS - NEGATIVE FOR MALIGNANCY Signing Pathologist Direct Phone Line: [phone] CPT Code(s) 23863 [facility] [id number] [facility] CLINICAL HISTORY Nonhealing surgical wound [facility] SPECIMEN SOURCE Right metatarsal. [facility] GROSS DESCRIPTION Specimen is received in [facility] formalin-filled container [facility] labeled with the patient's information and labeled "right metatarsal" and consists of multiple fragments of ch hemorrhagic bone and soft tissue measuring 2.5 x 2 x 1 cm in aggregate. Specimen is sectioned and submitted entirely A1-A4 for decalcification. CG/bc MICROSCOPIC DESCRIPTION Performed. [facility] Specimen Tissue - Metatarsal, Right Performing Organization Address City/[facility]/Zipcode Phone Number [facility] [address] [place] [address] [place] Vitamin B12 and Folate (09/11/2018 10:19 AM UPPER EXTREMITY SURGEON) Vitamin B12 1,098 (H) 213 - 816 pg/mL [facility] Folate 12.9 >=7.0 ng/mL [facility] Specimen Blood Performing Organization Address City/State/Zipcode Phone Number [facility] [address] [place] [address] [place] HEMODIALYSIS INPATIENT (09/11/2018 9:53 AM UPPER EXTREMITY SURGEON) Narrative Performed At Lana Bales RN 09/11/2018 [...] Bales RN HEMODIALYSIS INPATIENT (09/09/2018 4:12 PM UPPER EXTREMITY SURGEON) Narrative Performed At Lana Bales RN 09/09/20186:56 [...] RN Prepare Leuko-Red RBC (09/07/2018 11:54 PM UPPER EXTREMITY SURGEON)Only the most recent of2 resultswithin the time period is included. CROSSMATCH COMPATIBLE SAFETRACE TX Unit ABO O Pos SAFETRACE TX UNIT NUMBER [id number] SAFETRACE TX Status READY SAFETRACE TX Blood Bank Product RED BLOOD CELLS SAFETRACE TX PRODUCT CODE [id number] SAFETRACE TX CROSSMATCH COMPATIBLE SAFETRACE TX Unit ABO O Pos SAFETRACE TX UNIT NUMBER [id number] SAFETRACE TX Status TRANSFUSED SAFETRACE TX Blood Bank Product RED BLOOD CELLS SAFETRACE TX PRODUCT CODE [id number] SAFETRACE TX Specimen Other Performing Organization Address City/[facility] Phone Number [place] Fungus culture + smear (09/07/2018 9:04 AM UPPER EXTREMITY SURGEON)Only the most recent of3 resultswithin the time period is included. Result No fungus isolated in 28 days [facility] Fungus Smear No fungi seen [facility] Specimen Tissue Performing Organization Address [facility] Phone Number [address] [address] CENTER AFB culture + smear (09/07/2018 9:03 AM UPPER EXTREMITY SURGEON)Only the most recent of3 resultswithin the time period is included. Result No acid-fast bacilli isolated in [facility] 42 days [facility] [employer] Smear No acid fast bacilli seen [facility] Specimen Tissue Performing Organization Address [facility] Phone Number [address] [address] [phone] [place] Anaerobic culture (09/07/2018 9:03 AM UPPER EXTREMITY SURGEON)Only the most recent of3 resultswithin the time period is included. Result <1+ Same organism has been isolated from culture(s) of the same body site and collection date. Repeat identification performed only after consultation with the clinical microbiology laboratory. (A) [facility] Comment: MEDICAL CENTER Refer to previous culture of Bacteroides species, not fragilis Specimen Tissue Performing Organization Address [facility] Phone Number [address] [address] [phone] CENTER Surgically obtained culture + gram stain (09/07/2018 9:03 AM UPPER EXTREMITY SURGEON)Only the most recent of3 resultswithin the time period is included. Result No growth [facility] Gram Stain Result <1+ WBCs [facility] Gram Stain Result No organisms seen [facility] Specimen Tissue Performing Organization Address City/[facility]/Zipcode Phone Number [address] [address] [place] Potassium (09/07/2018 4:37 AM UPPER EXTREMITY SURGEON)Only the most recent of2 resultswithin the time period is included. Potassium 4.1 3.5 - 5.1 meq/L [facility] Specimen Blood Performing Organization Address City/[facility]/Zipcode Phone Number [address] [address] [place] Transfuse Leuko-Red RBC (09/06/2018 5:16 PM UPPER EXTREMITY SURGEON)Only the most recent of3 resultswithin the time period is included.Blood culture (09/05/2018 10:13 AM UPPER EXTREMITY SURGEON )Only the most recent of2 resultswithin the time period is included. Result No growth in 5 days [facility] Specimen Blood Performing Organization Address City/[facility]/Zipcode Phone Number [address] [address] [phone] [place] HEMODIALYSIS INPATIENT (09/04/2018 10:10 PM UPPER EXTREMITY SURGEON) Narrative Performed At Josselin Sapp RN 09/04/2018 [...] Arterial doppler arm, left (09/03/2018 9:40 PM UPPER EXTREMITY SURGEON) Ejection [facility] Specimen Impressions Performed At [facility] ECHO HEARTLAB [facility] Left Impression 1. The subclavian, axillary [...] At LAB - Upper Extremities Arterial Duplex [facility] ECHO HEART[facility] Demographics Patient Name NADIR MENDEZ Date of Study09/03/2018 ANAYA [id number] [id number] Visit Number [id number] Male Accession Number [id number] of Birth1945 [facility] Arnold Khan Kntiyi1735 Physician SonographerHeamarivel MartinezInterpreting Silvia Salamanca RVT PhysicianMD [...] External Ris In - 09/04/2018 8:06 AM UPPER EXTREMITY SURGEON PV LAB - Upper Extremities Arterial Duplex Demographics Patient Name NADIR MENDEZ Date of Study 09/03/2018 ANAYA Age 73 Visit Number [id number] Gender Male Accession Number [id number] Date of 1945 Referring David Khan MD Room Number 1831 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 ! + +----+-----+----+--------+ Performing Organization Address City/State[facility] Phone Number [facility] ECHO [facility] Venous doppler arm, left (09/03/2018 9:26 PM UPPER EXTREMITY SURGEON) Ejection Fraction [facility] Specimen Impressions Performed At [facility] Left Impression 1. There is no deep [...] At PV LAB - Upper Extremities Veins [facility] Dem[facility] Patient Name NADIR MENDEZ Date of Study09/03/2018 ANAYA [id number] [id number] Visit Number [id number] Male Accession Number [id number] of Birth1945 Arnold Chapa [id number] Physician VuographerKimberly MartinezInterpreting Silvia Salamanca RVT PhysicianMD [...] External Ris In - 09/04/2018 8:06 AM UPPER EXTREMITY SURGEON PV LAB - Upper Extremities Veins Demographics Patient Name NADIR MENDEZ Date of Study 09/03/2018 ANAYA Age 73 Visit Number [id number] Gender Male Accession Number [id number] Date of 1945 Referring David Khan MD Room Number 1831 Physician Mortuary Operations Manager Kimberly Martinez Interpreting Silvia Salamanca T Physician [...] City/State/Zipcode Phone Number [facility]CHO [facility] RESPIRATORY PANEL [facility] (09/03/2018 12:32 PM UPPER EXTREMITY SURGEON) Human Metapneumovirus Not detected Not detected, [facility] Rhinovirus Not detected Not detected, [facility] Influenza A Not detected Not detected, [facility] INFLUENZA A (NO SUBTYPE) Not detected, [facility] Influenza A subtype H1 Not detected, [facility] Influenza A Subtype H3 Not detected, [facility] Influenza A Subtype H1-2009 Not detected, [facility] Influenza B Not detected Not detected, [facility] Respiratory Syncytial Virus Not detected Not detected, [facility] Parainfluenza Virus 1 Not detected Not detected, [facility] Parainfluenza Virus 2 Not detected Not detected, [facility] Parainfluenza virus 3 Not detected Not detected, [facility] Parainfluenza Virus 4 Not detected Not detected, [facility] Adenovirus Not detected Not detected, [facility] Coronavirus 229E Not detected Not detected, [facility] Coronavirus HKU1 Not detected Not detected, [facility] Coronavirus NL63 Not detected Not detected, [facility] Coronavirus OC43 Not detected Not detected, [facility] Bordetella Pertussis Not detected Not detected, [facility] Chlamydophila Pneumoniae Not detected Not detected, [facility] Mycoplasma Pneumoniae Not detected Not detected, [facility] Specimen Nasopharyngeal Narrative Performed At Other viruses and bacteria not targeted by [facility] this PCR panel cannot be excluded; therefore clinical correlation and follow up of serology, culture results, and other molecular studies is required. The results are not intended to be used as the sole means for clinical diagnosis or patient management decisions. This sample was tested at the [facility] Molecular Diagnostics Laboratory using the NavPrescienceArray Respiratory Panel. It is FDA cleared and has been verified and approved by the [facility] Molecular Diagnostics Laboratory for clinical use on nasal swab specimens. It is not FDA-cleared for use on bronchial wash/lavage samples. However, for this sample type, validation was performed and test characteristics were determined and approved, by [facility] Molecular Diagnostics laboratory for clinical use under the Clinical Laboratory Improvement Amendments (CLIA) of 1988 requirements. Therefore, FDA clearance is not required.This laboratory is CLIA-certified and [employer] (CAP)-accredited to perform high complexity testing. Performing Organization Address [facility] Phone Number [address] [address] [phone] CENTER HEMODIALYSIS INPATIENT (09/02/2018 3:33 PM UPPER EXTREMITY SURGEON) Narrative Performed At Holley Ram RN 09/02/20183:34 PM Dialyzed for 4 hrs. UF net 2L. Vss. Alert, oriented X3. Report given to Tod PHILIP. Iron, TIBC, % sat. (without ferritin) (09/02/2018 3:21 AM UPPER EXTREMITY SURGEON)Only the most recent of2 resultswithin the time period is included. Iron 55.0 40.0 - 160.0 ug/dL [facility] TIBC 148 (L) 250 - 450 ug/dL [facility] Iron % Saturation 37 20 - 55 % [facility] Specimen Blood Performing Organization Address [facility] Phone Number [address] [address] CENTER Ferritin (09/02/2018 3:21 AM UPPER EXTREMITY SURGEON)Only the most recent of2 resultswithin the time period is included. Ferritin 414 (H) 5 - 275 ng/mL [facility] Specimen Blood Performing Organization Address [facility] Phone Number [address] [address] CENTER Troponin I (08/31/2018 4:05 AM UPPER EXTREMITY SURGEON)Only the most recent of4 resultswithin the time period is included. Troponin I 0.07 (H) 0.00 - 0.03 ng/mL [facility] Specimen Blood Narrative Performed At Troponin I (TnI) levels must be interpreted [facility] in the context of the presenting symptoms [...] disease, and persistent tachyarrhythmia. Performing Organization Address City/[facility] Phone Number [address] [address] [place] ECG 12 lead (08/30/2018 5:10 PM UPPER EXTREMITY SURGEON) Specimen Narrative Performed At Ventricular Rate 90 BPM GE MUSE Atrial Rate 90 BPM P-R Interval 152 ms QRS Duration 96 ms Q-T Interval 398 ms QTC Calculation(Bazett) 486 ms P [place] 16 degrees R [place] 104 degrees T [place] 26 degrees Sinus rhythm with occasional and consecutive Premature ventricular complexes Rightward axis Abnormal ECG No previous ECGs available Confirmed by MD FLAHERTY JORGE ([id number]) on 09/04/2018 12:55:42 PM Procedure Note Interface, External Ris In - 09/04/2018 12:55 PM UPPER EXTREMITY SURGEON Ventricular Rate 90 BPM Atrial Rate 90 BPM P-R Interval 152 ms QRS Duration 96 ms Q-T Interval 398 ms QTC Calculation(Bazett) 486 ms P [place] 16 degrees R [place] 104 degrees T [place] 26 degrees Sinus rhythm with occasional and consecutive Premature ventricular complexes Rightward axis Abnormal ECG No previous ECGs available Confirmed by MD FLAHERTY JORGE ([id number]) on 09/04/2018 12:55:42 PM Performing Organization Address City/[facility] Phone Number [employer] MUSE POC ACTIVATED CLOTTING TIME (08/30/2018 11:27 AM UPPER EXTREMITY SURGEON)Only the most recent of3 resultswithin the time period is included. Activated Clotting Time 142Comment: TESTED AT sec [facility] [address] [place] [id number] Specimen Blood Performing Organization Address [facility] Phone Number [address] [address] [place] Potassium-Stat Lab (08/30/2018 11:26 AM UPPER EXTREMITY SURGEON) Potassium 4.0 3.6 - 5.5 meq/L [facility] Specimen Blood, Arterial Performing Organization Address [facility] Phone Number [address] [address] [place] Sodium Na-Stat Lab (08/30/2018 11:26 AM UPPER EXTREMITY SURGEON) Sodium 130 (L) 135 - 148 meq/L [facility] Specimen Blood, Arterial Performing Organization Address [facility] Phone Number [address] [address] [place] Glucose-Stat Lab (08/30/2018 11:26 AM UPPER EXTREMITY SURGEON) Glucose 112 (H) 70 - 110 mg/dL [facility] Specimen Blood, Arterial Performing Organization Address [facility] Phone Number [address] [address] [phone] [place] HGB/HCT (H&H)-Stat Lab (08/30/2018 11:26 AM UPPER EXTREMITY SURGEON) Hemoglobin 9.9 (L) 13.0 - 16.8 g/dL [facility] Hematocrit 29.0 (L) 40.0 - 50.0 % [facility] Specimen Blood, Arterial Performing Organization Address [facility] Phone Number [address] [address] [phone] [place] Blood gas, arterial (08/30/2018 11:26 AM UPPER EXTREMITY SURGEON) pH, Arterial 7.43 7.35 - 7.45 [facility] pCO2, Arterial 41 35 - 45 mmHg [facility] pO2, Arterial 297 (H) 80 - 90 mmHg [facility] O2 Sat, Arterial 99.7 (H) 96.0 - 97.0 % [facility] HCO3, Arterial 27 21 - 29 mmol/L [facility] Base Excess, Arterial 2.0 -2.0 - 3.0 mmol/L [facility] Patient Temperature 35.1 C [facility] FIO2 100.0 % [facility] Specimen Blood, Arterial Performing Organization Address City/[facility] Phone Number [address] [address] [place] Calcium, Ionized (08/30/2018 2:50 AM UPPER EXTREMITY SURGEON)Only the most recent of2 resultswithin the time period is included. Calcium, Ion 1.07 (L) 1.12 - 1.27 mmol/L [facility] pH, Blood 7.43 [facility] Specimen Blood Performing Organization Address [facility] Phone Number [address] [address] [place] Prothrombin time/INR (08/30/2018 2:50 AM UPPER EXTREMITY SURGEON) Protime 14.9 (H) 11.7 - 14.7 seconds [facility] INR 1.2 <=5.9 [facility] Specimen Blood Narrative Performed At RECOMMENDED COUMADIN/WARFARIN INR THERAPY [facility] RANGES STANDARD DOSE: 2.0 - 3.0 Includes: PROPHYLAXIS for venous thrombosis, systemic embolization; TREATMENT for venous thrombosis and/or pulmonary embolus. HIGH RISK: Target INR is 2.5-3.5 for patients with mechanical heart valves. Performing Organization Address City[facility] Phone Number [address] [address] [phone] [place] HEMODIALYSIS INPATIENT (08/28/2018 12:40 PM UPPER EXTREMITY SURGEON) Narrative Performed At Minda Fairbanks RN 08/28/2018 [...] Fairbanks RN HEMODIALYSIS INPATIENT (08/26/2018 12:31 PM UPPER EXTREMITY SURGEON) Narrative Performed At Skinny Montero RN 08/26/2018 [...] RN Comprehensive metabolic panel (08/26/2018 6:07 AM UPPER EXTREMITY SURGEON)Only the most recent of2 resultswithin the time period is included. Protein, Total 6.5 6.0 - 8.3 gm/dL [facility] Albumin 2.4 (L) 3.5 - 5.0 g/dL [facility] Alkaline Phosphatase 78 40 - 150 U/L [facility] Total Bilirubin 0.4 0.2 - 1.2 mg/dL [facility] Sodium 129 (L) 136 - 145 meq/L [facility] Potassium 4.9 3.5 - 5.1 meq/L [facility] Chloride 93 (L) 98 - 107 meq/L [facility] CO2 26 22 - 29 meq/L [facility] BUN 50 (H) 7 - 21 mg/dL [facility] Creatinine 6.18 (H) 0.57 - 1.25 mg/dL [facility] Glucose 104 70 - 105 mg/dL [facility] Calcium 8.9 8.4 - 10.2 mg/dL [facility] AST 22 5 - 34 U/L [facility] ALT <6 (L) 6 - 55 U/L [facility] EGFR 9Comment: ESTIMATED GFR mL/min/1.73 sq m [facility] IS NOT ACCURATE [facility] CREATININE CLEARANCE IN PREDICTING GLOMERULAR FILTRATION RATE. ESTIMATED GFR IS NOT APPLICABLE FOR DIALYSIS PATIENTS. Specimen Blood Performing Organization Address City/State/Zipcode Phone Number [facility] [address] [place] [address] CENTER Vein Mapping Leg RIght (08/24/2018 4:08 PM UPPER EXTREMITY SURGEON) Ejection Fraction [facility] ECHO [facility] Specimen Impressions Performed At Right Impression [facility]CHO [facility] 1. There is [...] PV LAB - Lower Extremities Vein Mapping [facility]CHO [facility] Demographics Patient NameSNADIR QUIÑONES Date of Study 08/24/2018 ANAYA 73 Visit [id number] Male of 1945 Referring [facility] Room Number 1819 Physician Mortuary Operations Manager Jannet Soares RVT Physician Procedure Type of [...] External Ris In - 08/25/2018 5:10 PM UPPER EXTREMITY SURGEON PV LAB - Lower Extremities Vein Mapping Demographics Patient Name NADIR MENDEZ Date of Study 08/24/2018 ANAYA Age 73 Visit Number [id number] Gender Male Accession Number [id number] Date of 1945 Referring [facility] Room Number 3989 Physician Mortuary Operations Manager Jannet Chang Interpreting Sherry Soares RVT Physician [...] Arterial doppler leg, right (08/24/2018 4:08 PM UPPER EXTREMITY SURGEON) Ejection [facility] ECHO HEARTLAB [facility] Specimen Impressions Performed At Right Impression [facility] HEARTLAB [facility] 1. The common femoral and profunda [...] + + + + + + !Prox PRIVACY ANALYST ! !53.4 !! ! + + + + + + !Mid PRIVACY ANALYST ! !0! ! ! + + + + + + !Dist PRIVACY ANALYST ! !0! ! ! + + + [...] PV LAB - Lower Extremity Arterial Duplex [facility]CHO [facility] Demographics Patient NameSNADIR QUIÑONES Date of Study 08/24/2018 ANAYA 73 Visit [id number] Male of 1945 Referring [facility] Room Number 1819 Physician Mortuary Operations Manager Jannet Soares RVT Physician Procedure Type of [...] External Ris In - 08/25/2018 5:12 PM UPPER EXTREMITY SURGEON PV LAB - Lower Extremity Arterial Duplex Demographics Patient Name NADIR MENDEZ Date of Study 08/24/2018 ANAYA Age 73 Visit Number [id number] Gender Male Accession Number [id number] Date of 1945 Referring [facility] Room Number 1819 Physician Mortuary Operations Manager Jannet Chang Interpreting Sherry Soares Neo Physician [...] + + + -------+ + + !Prox PRIVACY ANALYST ! !53.4 ! ! ! + + + -------+ + + !Mid PRIVACY ANALYST ! !0 ! ! ! + + + -------+ + + !Dist PRIVACY ANALYST ! !0 ! ! ! + + [...] + -------+ + + Performing Organization Address City/[facility]/Zipcode Phone Number [facility] Reticulocyte count (08/24/2018 3:55 AM UPPER EXTREMITY SURGEON) % Retic 2.0 (H) 0.5 - 1.8 % [facility] Specimen Blood Performing Organization Address [facility]/Zipcode Phone Number [address] [phone] CENTER HEMODIALYSIS INPATIENT (08/23/2018 11:33 AM UPPER EXTREMITY SURGEON) Narrative Performed At Holley Ram RN 08/23/2018 11:37 AM Dialyzed for 4hrs. UF net 2L. Vss. Alert, oriented x3. Report given to Maya PHILIP XR chest 1 view portable / bedside (08/22/2018 6:40 PM UPPER EXTREMITY SURGEON) Specimen Narrative Performed At FINAL REPORT RIS [...] MD Report Verified Date/Time:08/22/2018 19:51:52 Reading Location: [address] Consult Reading Room Procedure Note Interface, External Ris In - 08/22/2018 7:54 PM UPPER EXTREMITY SURGEON FINAL REPORT INDICATION: Cough COMPARISON: None. TECHNIQUE: [...] Report Verified Date/Time: 08/22/2018 19:51:52 Reading Location: [facility] C013 Consult Reading Room Performing Organization Address City/State/Zipcode Phone Number RIS Hepatitis B surface antigen (08/22/2018 12:50 PM UPPER EXTREMITY SURGEON) hepatitis B Surface Ag NON-REACTIVE Nonreactive [facility] Specimen Blood Performing Organization Address City/State/Zipcode Phone Number [address] [address] [phone] CENTER PT/aPTT (08/22/2018 3:38 AM UPPER EXTREMITY SURGEON) Protime 16.0 (H) 11.7 - 14.7 seconds [facility] INR 1.3 <=5.9 [facility] PTT 51.1 (H) 22.5 - 36.0 seconds [facility] Specimen Blood Narrative Performed At RECOMMENDED COUMADIN/WARFARIN INR THERAPY [facility] RANGES STANDARD DOSE: 2.0 - 3.0 Includes: PROPHYLAXIS for venous thrombosis, systemic embolization; TREATMENT for venous thrombosis and/or pulmonary embolus. HIGH RISK: Target INR is 2.5-3.5 for patients with mechanical heart valves. Performing Organization Address City/State/Zipcode Phone Number [facility] [address] [place] [address] [place] after 02/14/2018 Insurance Payer Benefit Plan / Group Subscriber ID Type Phone Address CARE IMPROVEMENT MEDICARE CARE IMPROVEMENT PLUS xxxxxxxxx [facility] MEDICAID [place]ICA[place] xxxxxxxxx Medicaid ([place]) [place] [address] Advance Directives Patient has advance care planning documents, and code status on file. For more information, please contact:[address] [phone] Code Status Date Activated Date Inactivated Comments Full Code 08/30/2018 5:03 PM This code status was determined by: Patient Full Code 08/22/2018 1:56 AM 08/30/2018 5:03 PM This code status was determined by: Patient Full Code 09/15/2017 11:54 PM 09/18/2017 7:40 AM This code status was determined by: Patient
--- OUTSIDE RECORDS SUMMARY | 2019-02-15 12:26 | XMS REPORT ---
:1945 Author Organization [facility] Address [address] [place] [address] [address] [place] [address] Care Team Providers Name Role Phone RICHELLE [...] ID: 3 VIEWS, RIGHT 12:54:00 exam:->s/p TMA [id number] Right foot, three images HISTORY: Intubation COMPARISON: 09/06/2018 IMPRESSION:Transmetatarsal amputation of all digits. No appreciable fracture. No dislocation. Bandage material present. Vascular consultation. Signed: Josey Law Verified Date/Time: 11/04/2018 12:54:24 Reading Location: [address] Transitional Reading Room CULTURE + SMEAR 2018-10-23 10:29:00 Test Item Value Reference Range Comments CULTURE (BEAKER) (test cwjj=1474) No acid-fast bacilli isolated in 42 days AFB SMEAR (BEAKER) (test atby=081) No acid fast bacilli seen AFB CULTURE + [id number] 10:29:00 Test Item Value Reference Range Comments CULTURE (BEAKER) (test No acid-fast bacilli isolated wwtd=6496) in 42 days AFB SMEAR (BEAKER) (test No acid fast bacilli seen ibun=183) AFB CULTURE + [id number] 10:29:00 Test Item Value Reference Range Comments CULTURE (BEAKER) (test No acid-fast bacilli isolated dhev=3309) in 42 days AFB SMEAR (BEAKER) (test No acid fast bacilli seen tpmr=890) FUNGUS CULTURE + [id number] 16:39:00 Test Item Value Reference Range Comments CULTURE (BEAKER) (test No fungus isolated in 28 days dqpp=0028) FUNGUS SMEAR (BEAKER) (test No fungi seen doea=5778) FUNGUS CULTURE + [id number] 16:39:00 Test Item Value Reference Range Comments CULTURE (BEAKER) (test No fungus isolated in 28 days jrgx=3247) FUNGUS SMEAR (BEAKER) (test No fungi seen mxhx=1869) FUNGUS CULTURE + [id number] 16:39:00 Test Item Value Reference Range Comments CULTURE (BEAKER) (test No fungus isolated in 28 days whuv=5249) FUNGUS SMEAR (BEAKER) (test No fungi seen qunx=4942) TISSUE [id number] 20:00:00Surgical Pathology Report Case: [id number] Authorizing Provider: Aba Millan DPM Collected: 09/13/2018 08 Ordering Location: [facility] PERI[facility] Received: 09/13/2018 0926 SERVICES Pathologist: Carrol Trammell MD Specimen: Metatarsal, Right BONE, RIGHT FOOT , METATARSAL, DEBRIDEMENT:- GANGRENOUS NECROSIS- OSTEOMYELITIS- NEGATIVE FOR MALIGNANCY Signing Pathologist Direct Phone Line: [phone] signed by Carrol Trammell MD on 2018 at 8:00 [id number] surgical woundRight metatarsal. Specimen is received in formalin-filled container labeled with the patient's information and labeled "right metatarsal" and consists of multiple fragments of ch hemorrhagic bone and soft tissue measuring 2.5 x 2 x 1 cm in aggregate. Specimen is sectioned and submitted entirely A1-A4 for decalcification. CG/bc Performed.POCT-GLUCOSE [id number] 13:34:00 Test Item Value Reference Range Comments POC-GLUCOSE METER (BEAKER) 148 mg/dL 70-110 TESTED AT [facility] [address] [facility] (test mido=9354) [facility] [address] POCT-GLUCOSE [id number] 08:11:00 Test Item Value Reference Range Comments POC-GLUCOSE METER (BEAKER) 139 mg/dL 70-110 TESTED AT [facility] [address] (test iprk=6211) [facility] [address] BASIC METABOLIC [id number] 04:47:00 Test Item Value Reference Range Comments SODIUM (BEAKER) (test 136 meq/L 136-145 gyzb=170) POTASSIUM (BEAKER) (test 4.3 meq/L 3.5-5.1 pvbc=650) CHLORIDE (BEAKER) (test 97 meq/L 98-107 ugxr=823) CO2 (BEAKER) (test 27 meq/L 22-29 tqgx=191) BLOOD UREA NITROGEN 43 mg/dL 7-21 (BEAKER) (test whfb=776) CREATININE (BEAKER) (test 5.04 mg/dL 0.57-1.25 dvda=490) GLUCOSE RANDOM (BEAKER) 94 mg/dL 70-105 (test xkmr=438) CALCIUM (BEAKER) (test 8.7 mg/dL 8.4-10.2 sxij=436) EGFR (BEAKER) (test 11 mL/min/1.73 sq m ESTIMATED GFR IS NOT emae=4337) ACCURATE CREATININE CLEARANCE IN PREDICTING GLOMERULAR FILTRATION RATE. ESTIMATED GFR IS NOT APPLICABLE FOR DIALYSIS PATIENTS. [id number] 04:46:00 Test Item Value Reference Range Comments PHOSPHORUS (BEAKER) (test fgyh=444) 3.2 mg/dL 2.3-4.7 [id number] 04:46:00 Test Item Value Reference Range Comments MAGNESIUM (BEAKER) (test izey=727) 2.1 mg/dL 1.6-2.6 CBC W/PLT COUNT & AUTO [id number] 04:39:00 Test Item Value Reference Range Comments WHITE BLOOD CELL COUNT (BEAKER) (test qrrn=133) 7.8 K/ L 3.5-10.5 RED BLOOD CELL COUNT (BEAKER) (test twho=300) 2.72 M/ L 4.63-6.08 HEMOGLOBIN (BEAKER) (test qgyp=254) 8.9 GM/DL 13.7-17.5 HEMATOCRIT (BEAKER) (test qfpd=758) 27.9 % 40.1-51.0 MEAN CORPUSCULAR VOLUME (BEAKER) (test bwma=091) 102.6 fL 79.0-92.2 MEAN CORPUSCULAR HEMOGLOBIN (BEAKER) (test 32.7 pg 25.7-32.2 pnsp=158) MEAN CORPUSCULAR HEMOGLOBIN CONC (BEAKER) (test 31.9 GM/DL 32.3-36.5 rpmr=108) RED CELL DISTRIBUTION WIDTH (BEAKER) (test 17.2 % 11.6-14.4 mqgs=280) PLATELET COUNT (BEAKER) (test jxaq=075) 244 K/CU MM 150-450 MEAN PLATELET VOLUME (BEAKER) (test unij=459) 11.2 fL 9.4-12.4 NUCLEATED RED BLOOD CELLS (BEAKER) (test 0 /100 WBC 0-0 vyxk=039) NEUTROPHILS RELATIVE PERCENT (BEAKER) (test 62 % ythd=794) LYMPHOCYTES RELATIVE PERCENT (BEAKER) (test 19 % fibt=694) MONOCYTES RELATIVE PERCENT (BEAKER) (test 10 % onwv=844) EOSINOPHILS RELATIVE PERCENT (BEAKER) (test 7 % hktd=212) BASOPHILS RELATIVE PERCENT (BEAKER) (test 1 % vfrn=705) NEUTROPHILS ABSOLUTE COUNT (BEAKER) (test 4.83 K/ L 1.78-5.38 fncl=876) LYMPHOCYTES ABSOLUTE COUNT (BEAKER) (test 1.49 K/ L 1.32-3.57 ntad=813) MONOCYTES ABSOLUTE COUNT (BEAKER) (test 0.80 K/ L 0.30-0.82 khvf=853) EOSINOPHILS ABSOLUTE COUNT (BEAKER) (test 0.51 K/ L 0.04-0.54 htgy=291) BASOPHILS ABSOLUTE COUNT (BEAKER) (test 0.05 K/ L 0.01-0.08 wfue=231) IMMATURE GRANULOCYTES-RELATIVE PERCENT (BEAKER) 1 % 0-1 (test bfgz=1051) POCT-GLUCOSE [id number] 21:35:00 Test Item Value Reference Range Comments POC-GLUCOSE METER (BEAKER) 181 mg/dL 70-110 TESTED AT [address] (test duxr=2722) [facility] [address] POCT-GLUCOSE [id number] 17:58:00 Test Item Value Reference Range Comments POC-GLUCOSE METER (BEAKER) 166 mg/dL 70-110 TESTED AT [address] (test dsqb=8096) [facility] [address] POCT-GLUCOSE [id number] 12:45:00 Test Item Value Reference Range Comments POC-GLUCOSE METER (BEAKER) 146 mg/dL 70-110 TESTED AT [facility] [address] [place] [address] (test lcsb=8196) [facility] [address] POCT-GLUCOSE [id number] 08:59:00 Test Item Value Reference Range Comments POC-GLUCOSE METER (BEAKER) 158 mg/dL 70-110 TESTED AT [address] (test laom=8237) [facility] [address] [id number] 05:22:00 Test Item Value Reference Range Comments PHOSPHORUS (BEAKER) (test wsjn=443) 2.5 mg/dL 2.3-4.7 [id number] 05:22:00 Test Item Value Reference Range Comments MAGNESIUM (BEAKER) (test strw=247) 2.0 mg/dL 1.6-2.6 CBC W/PLT COUNT & AUTO [id number] 05:03:00 Test Item Value Reference Range Comments WHITE BLOOD CELL COUNT (BEAKER) (test giag=002) 8.2 K/ L 3.5-10.5 RED BLOOD CELL COUNT (BEAKER) (test affw=694) 2.70 M/ L 4.63-6.08 HEMOGLOBIN (BEAKER) (test anie=165) 8.8 GM/DL 13.7-17.5 HEMATOCRIT (BEAKER) (test jxke=158) 28.2 % 40.1-51.0 MEAN CORPUSCULAR VOLUME (BEAKER) (test repk=137) 104.4 fL 79.0-92.2 MEAN CORPUSCULAR HEMOGLOBIN (BEAKER) (test 32.6 pg 25.7-32.2 itny=336) MEAN CORPUSCULAR HEMOGLOBIN CONC (BEAKER) (test 31.2 GM/DL 32.3-36.5 usma=961) RED CELL DISTRIBUTION WIDTH (BEAKER) (test 17.4 % 11.6-14.4 bner=328) PLATELET COUNT (BEAKER) (test krnv=975) 255 K/CU MM 150-450 MEAN PLATELET VOLUME (BEAKER) (test chxs=300) 11.1 fL 9.4-12.4 NUCLEATED RED BLOOD CELLS (BEAKER) (test 0 /100 WBC 0-0 zepn=121) NEUTROPHILS RELATIVE PERCENT (BEAKER) (test 68 % zczz=032) LYMPHOCYTES RELATIVE PERCENT (BEAKER) (test 15 % qxtr=291) MONOCYTES RELATIVE PERCENT (BEAKER) (test 10 % ehub=599) EOSINOPHILS RELATIVE PERCENT (BEAKER) (test 6 % gnxp=378) BASOPHILS RELATIVE PERCENT (BEAKER) (test 1 % kntm=326) NEUTROPHILS ABSOLUTE COUNT (BEAKER) (test 5.50 K/ L 1.78-5.38 jlca=445) LYMPHOCYTES ABSOLUTE COUNT (BEAKER) (test 1.25 K/ L 1.32-3.57 lqxn=703) MONOCYTES ABSOLUTE COUNT (BEAKER) (test 0.85 K/ L 0.30-0.82 ujca=610) EOSINOPHILS ABSOLUTE COUNT (BEAKER) (test 0.46 K/ L 0.04-0.54 qxwg=187) BASOPHILS ABSOLUTE COUNT (BEAKER) (test 0.04 K/ L 0.01-0.08 pmsl=450) IMMATURE GRANULOCYTES-RELATIVE PERCENT (BEAKER) 1 % 0-1 (test pxis=2537) POCT-GLUCOSE [id number] 21:29:00 Test Item Value Reference Range Comments POC-GLUCOSE METER (BEAKER) 175 mg/dL 70-110 TESTED AT [address] (test qgwo=9933) [place] [address] POCT-GLUCOSE [id number] 17:57:00 Test Item Value Reference Range Comments POC-GLUCOSE METER (BEAKER) 171 mg/dL 70-110 TESTED AT [address] (test ikjf=1473) [place] [address] POCT-GLUCOSE [id number] 13:43:00 Test Item Value Reference Range Comments POC-GLUCOSE METER (BEAKER) 189 mg/dL 70-110 TESTED AT [address] (test pttr=2016) [place] [address] TISSUE [id number] 13:19:00Surgical Pathology Report Case: [id number] Authorizing Provider: Aba Millan DPM Collected: 09/07/201837 Ordering Location: [address] Received: 09/09/2018 0839 Service Pathologist: Rober Hicks MD Specimen: Foot, Right, right foot amputation FOOT, RIGHT, DISTAL AMPUTATION: GANGRENOUS NECROSIS OF SKIN AND SOFT TISSUE.UNDERLYING ACUTE AND CHRONIC OSTEOMYELITISCALCIFIC ATHEROSCLEROSIS.RESECTION MARGINS VIABLE.SPECIAL STAINS FOR FUNGAL ORGANISMS (GMS, PAS) ARE NEGATIVE. Signing Pathologist Direct Phone Line: [phone] signed by Rober Hicks MD on at 1:19 [id number] x2Open wound of right lower extremity Right [...] Sectioning reveals dark brown necrotic cut surface. [employer] sections are submitted as follows: A1- skin and soft tissue at resection margin ; A2- bone at resection margin following decalcification; A3- skin at resection margin to include ulcer; A4- ulcer with underlying bone following decalcification; A5- section to include underlying vessels; A7- freight representative of the detached pieces of tissue. SA/bc Performed.The interpretation of this case included the use of immunohistochemistry or special stains. BLOCK A3- GMS, PASImmunohistochemistry technical testing was performed at [facility], Pathology Laboratory where it was developed and [...] perform high complexity clinical laboratory testing.BASIC METABOLIC [id number] 10:39:00 Test Item Value Reference Range Comments SODIUM (BEAKER) (test 138 meq/L 136-145 pjms=841) POTASSIUM (BEAKER) (test 4.8 meq/L 3.5-5.1 pmmm=082) CHLORIDE (BEAKER) (test 99 meq/L 98-107 khok=409) CO2 (BEAKER) (test 28 meq/L 22-29 wjkc=917) BLOOD UREA NITROGEN 46 mg/dL 7-21 (BEAKER) (test oezy=009) CREATININE (BEAKER) (test 5.96 mg/dL 0.57-1.25 ceuz=395) GLUCOSE RANDOM (BEAKER) 93 mg/dL 70-105 (test nuhq=643) CALCIUM (BEAKER) (test 8.5 mg/dL 8.4-10.2 npnv=187) EGFR (BEAKER) (test 9 mL/min/1.73 sq m ESTIMATED GFR IS NOT rsoz=9263) ACCURATE CREATININE CLEARANCE IN PREDICTING GLOMERULAR FILTRATION RATE. ESTIMATED GFR IS NOT APPLICABLE FOR DIALYSIS PATIENTS. POCT-GLUCOSE [id number] 07:45:00 Test Item Value Reference Range Comments POC-GLUCOSE METER (BEAKER) 127 mg/dL 70-110 TESTED AT [facility] [address] [facility] (test uiqb=0023) [facility] [address] [id number] 06:16:00 Test Item Value Reference Range Comments PHOSPHORUS (BEAKER) (test ercl=325) 4.1 mg/dL 2.3-4.7 [id number] 06:16:00 Test Item Value Reference Range Comments MAGNESIUM (BEAKER) (test ljya=472) 2.0 mg/dL 1.6-2.6 CBC W/PLT COUNT & AUTO [id number] 05:30:00 Test Item Value Reference Range Comments WHITE BLOOD CELL COUNT (BEAKER) (test jtwz=307) 9.1 K/ L 3.5-10.5 RED BLOOD CELL COUNT (BEAKER) (test fmwq=142) 2.70 M/ L 4.63-6.08 HEMOGLOBIN (BEAKER) (test nuho=820) 8.8 GM/DL 13.7-17.5 HEMATOCRIT (BEAKER) (test mrpy=136) 28.2 % 40.1-51.0 MEAN CORPUSCULAR VOLUME (BEAKER) (test drfh=472) 104.4 fL 79.0-92.2 MEAN CORPUSCULAR HEMOGLOBIN (BEAKER) (test 32.6 pg 25.7-32.2 ajlk=943) MEAN CORPUSCULAR HEMOGLOBIN CONC (BEAKER) (test 31.2 GM/DL 32.3-36.5 hrzs=112) RED CELL DISTRIBUTION WIDTH (BEAKER) (test 17.2 % 11.6-14.4 upzo=863) PLATELET COUNT (BEAKER) (test zmbp=491) 238 K/CU MM 150-450 MEAN PLATELET VOLUME (BEAKER) (test ukic=454) 10.6 fL 9.4-12.4 NUCLEATED RED BLOOD CELLS (BEAKER) (test 0 /100 WBC 0-0 sxdl=424) NEUTROPHILS RELATIVE PERCENT (BEAKER) (test 69 % stzm=519) LYMPHOCYTES RELATIVE PERCENT (BEAKER) (test 15 % hrto=679) MONOCYTES RELATIVE PERCENT (BEAKER) (test 9 % zhto=253) EOSINOPHILS RELATIVE PERCENT (BEAKER) (test 7 % fqks=194) BASOPHILS RELATIVE PERCENT (BEAKER) (test 0 % sgtb=734) NEUTROPHILS ABSOLUTE COUNT (BEAKER) (test 6.25 K/ L 1.78-5.38 aawk=255) LYMPHOCYTES ABSOLUTE COUNT (BEAKER) (test 1.36 K/ L 1.32-3.57 zvab=671) MONOCYTES ABSOLUTE COUNT (BEAKER) (test 0.78 K/ L 0.30-0.82 muxo=131) EOSINOPHILS ABSOLUTE COUNT (BEAKER) (test 0.61 K/ L 0.04-0.54 xlgx=318) BASOPHILS ABSOLUTE COUNT (BEAKER) (test 0.04 K/ L 0.01-0.08 rwmo=741) IMMATURE GRANULOCYTES-RELATIVE PERCENT (BEAKER) 1 % 0-1 (test mymj=0216) POCT-GLUCOSE [id number] 21:26:00 Test Item Value Reference Range Comments POC-GLUCOSE METER (BEAKER) 117 mg/dL 70-110 TESTED AT [facility] [address] [facility] (test pjbk=8569) [facility] [address] POCT-GLUCOSE [id number] 17:29:00 Test Item Value Reference Range Comments POC-GLUCOSE METER (BEAKER) 212 mg/dL 70-110 TESTED AT [address] (test wcuv=5443) [facility] [address] POCT-GLUCOSE [id number] 11:33:00 Test Item Value Reference Range Comments POC-GLUCOSE METER (BEAKER) 185 mg/dL 70-110 TESTED AT [address] (test edmj=2465) [facility] [address] RAD, FOOT, MIN 3 VIEWS, [id number] 08:28:00Reason for exam:->s/p amputationFINAL REPORT RIGHT FOOT [...] Huffman MDReport Verified Date/Time: 09/15/201808:28:29 Reading Location: [address] Transitional Reading Room POCT- GLUCOSE [id number] 08:02:00 Test Item Value Reference Range Comments POC-GLUCOSE METER (BEAKER) 171 mg/dL 70-110 TESTED AT [address] (test aayc=6739) [facility] [address] [id number] 06:39:00 Test Item Value Reference Range Comments PHOSPHORUS (BEAKER) (test wtug=185) 3.4 mg/dL 2.3-4.7 [id number] 06:39:00 Test Item Value Reference Range Comments MAGNESIUM (BEAKER) (test irrk=049) 2.1 mg/dL 1.6-2.6 CBC W/PLT COUNT & AUTO [id number] 05:38:00 Test Item Value Reference Range Comments WHITE BLOOD CELL COUNT (BEAKER) (test wpiz=008) 8.4 K/ L 3.5-10.5 RED BLOOD CELL COUNT (BEAKER) (test zsqw=842) 2.64 M/ L 4.63-6.08 HEMOGLOBIN (BEAKER) (test myhc=132) 8.7 GM/DL 13.7-17.5 HEMATOCRIT (BEAKER) (test ciie=435) 27.7 % 40.1-51.0 MEAN CORPUSCULAR VOLUME (BEAKER) (test rmqe=983) 104.9 fL 79.0-92.2 MEAN CORPUSCULAR HEMOGLOBIN (BEAKER) (test 33.0 pg 25.7-32.2 nlir=568) MEAN CORPUSCULAR HEMOGLOBIN CONC (BEAKER) (test 31.4 GM/DL 32.3-36.5 ufkf=913) RED CELL DISTRIBUTION WIDTH (BEAKER) (test 17.3 % 11.6-14.4 eloh=977) PLATELET COUNT (BEAKER) (test sgmq=870) 238 K/CU MM 150-450 MEAN PLATELET VOLUME (BEAKER) (test rpzn=936) 11.4 fL 9.4-12.4 NUCLEATED RED BLOOD CELLS (BEAKER) (test 0 /100 WBC 0-0 ywsy=806) NEUTROPHILS RELATIVE PERCENT (BEAKER) (test 65 % aumg=309) LYMPHOCYTES RELATIVE PERCENT (BEAKER) (test 16 % hvzd=467) MONOCYTES RELATIVE PERCENT (BEAKER) (test 12 % ewhc=824) EOSINOPHILS RELATIVE PERCENT (BEAKER) (test 6 % abrj=029) BASOPHILS RELATIVE PERCENT (BEAKER) (test 1 % wojd=197) NEUTROPHILS ABSOLUTE COUNT (BEAKER) (test 5.50 K/ L 1.78-5.38 byxd=376) LYMPHOCYTES ABSOLUTE COUNT (BEAKER) (test 1.33 K/ L 1.32-3.57 xhzo=417) MONOCYTES ABSOLUTE COUNT (BEAKER) (test 1.01 K/ L 0.30-0.82 qmtt=788) EOSINOPHILS ABSOLUTE COUNT (BEAKER) (test 0.47 K/ L 0.04-0.54 vgmv=835) BASOPHILS ABSOLUTE COUNT (BEAKER) (test 0.05 K/ L 0.01-0.08 mlmt=372) IMMATURE GRANULOCYTES-RELATIVE PERCENT (BEAKER) 1 % 0-1 (test auoy=7770) POCT-GLUCOSE [id number] 21:37:00 Test Item Value Reference Range Comments POC-GLUCOSE METER (BEAKER) 203 mg/dL 70-110 TESTED AT [address] (test tdnl=3763) [facility] [address] POCT-GLUCOSE [id number] 17:17:00 Test Item Value Reference Range Comments POC-GLUCOSE METER (BEAKER) 135 mg/dL 70-110 TESTED AT [address] (test ffvc=3283) [facility] [address] POCT-GLUCOSE [id number] 13:16:00 Test Item Value Reference Range Comments POC-GLUCOSE METER (BEAKER) 177 mg/dL 70-110 TESTED AT [address] (test aknv=1570) [facility] [address] POCT-GLUCOSE [id number] 07:55:00 Test Item Value Reference Range Comments POC-GLUCOSE METER (BEAKER) 136 mg/dL 70-110 TESTED AT [address] (test eymd=3537) [facility] [address] BASIC METABOLIC [id number] 05:47:00 Test Item Value Reference Range Comments SODIUM (BEAKER) (test 139 meq/L 136-145 fwbl=228) POTASSIUM (BEAKER) (test 4.3 meq/L 3.5-5.1 nelo=548) CHLORIDE (BEAKER) (test 102 meq/L 98-107 xlfo=414) CO2 (BEAKER) (test 30 meq/L 22-29 rosd=528) BLOOD UREA NITROGEN 21 mg/dL 7-21 (BEAKER) (test zjlg=506) CREATININE (BEAKER) (test 3.49 mg/dL 0.57-1.25 xgxb=915) GLUCOSE RANDOM (BEAKER) 119 mg/dL 70-105 (test ptqq=367) CALCIUM (BEAKER) (test 8.7 mg/dL 8.4-10.2 sudx=393) EGFR (BEAKER) (test 17 mL/min/1.73 sq m ESTIMATED GFR IS NOT eacp=1309) ACCURATE CREATININE CLEARANCE IN PREDICTING GLOMERULAR FILTRATION RATE. ESTIMATED GFR IS NOT APPLICABLE FOR DIALYSIS PATIENTS. [id number] 04:09:00 Test Item Value Reference Range Comments PHOSPHORUS (BEAKER) (test qcrw=243) 2.8 mg/dL 2.3-4.7 [id number] 04:09:00 Test Item Value Reference Range Comments MAGNESIUM (BEAKER) (test gplx=159) 1.9 mg/dL 1.6-2.6 CBC W/PLT COUNT & AUTO [id number] 03:46:00 Test Item Value Reference Range Comments WHITE BLOOD CELL COUNT (BEAKER) (test tcui=161) 7.6 K/ L 3.5-10.5 RED BLOOD CELL COUNT (BEAKER) (test arjj=523) 2.78 M/ L 4.63-6.08 HEMOGLOBIN (BEAKER) (test pdms=349) 9.0 GM/DL 13.7-17.5 HEMATOCRIT (BEAKER) (test duzg=018) 29.2 % 40.1-51.0 MEAN CORPUSCULAR VOLUME (BEAKER) (test cnjp=362) 105.0 fL 79.0-92.2 MEAN CORPUSCULAR HEMOGLOBIN (BEAKER) (test 32.4 pg 25.7-32.2 wtds=428) MEAN CORPUSCULAR HEMOGLOBIN CONC (BEAKER) (test 30.8 GM/DL 32.3-36.5 pnab=986) RED CELL DISTRIBUTION WIDTH (BEAKER) (test 17.1 % 11.6-14.4 gmcy=565) PLATELET COUNT (BEAKER) (test zksr=169) 209 K/CU MM 150-450 MEAN PLATELET VOLUME (BEAKER) (test vahz=811) 11.1 fL 9.4-12.4 NUCLEATED RED BLOOD CELLS (BEAKER) (test 0 /100 WBC 0-0 idad=519) NEUTROPHILS RELATIVE PERCENT (BEAKER) (test 66 % tzdk=091) LYMPHOCYTES RELATIVE PERCENT (BEAKER) (test 15 % xqny=343) MONOCYTES RELATIVE PERCENT (BEAKER) (test 13 % phkg=639) EOSINOPHILS RELATIVE PERCENT (BEAKER) (test 5 % zwck=891) BASOPHILS RELATIVE PERCENT (BEAKER) (test 1 % ekww=789) NEUTROPHILS ABSOLUTE COUNT (BEAKER) (test 4.95 K/ L 1.78-5.38 fdww=288) LYMPHOCYTES ABSOLUTE COUNT (BEAKER) (test 1.13 K/ L 1.32-3.57 ltzp=660) MONOCYTES ABSOLUTE COUNT (BEAKER) (test 0.99 K/ L 0.30-0.82 dejf=343) EOSINOPHILS ABSOLUTE COUNT (BEAKER) (test 0.38 K/ L 0.04-0.54 jmyv=248) BASOPHILS ABSOLUTE COUNT (BEAKER) (test 0.07 K/ L 0.01-0.08 uhja=445) IMMATURE GRANULOCYTES-RELATIVE PERCENT (BEAKER) 1 % 0-1 (test ogec=6429) POCT-GLUCOSE [id number] 22:47:00 Test Item Value Reference Range Comments POC-GLUCOSE METER (BEAKER) 165 mg/dL 70-110 TESTED AT [address] (test swhc=6849) [place] [address] POCT-GLUCOSE [id number] 19:32:00 Test Item Value Reference Range Comments POC-GLUCOSE METER (BEAKER) 159 mg/dL 70-110 TESTED AT [address] (test tsez=3792) [place] [address] POCT-GLUCOSE [id number] 17:32:00 Test Item Value Reference Range Comments POC-GLUCOSE METER (BEAKER) 119 mg/dL 70-110 TESTED AT [address] (test bpzb=4575) [place] [address] ANAEROBIC [id number] 16:45:00 Test Item Value Reference Range Comments CULTURE (BEAKER) (test <1+ Same organism has been isolated rjgg=1076) from culture(s) of the same body site and collection date. Repeat identification performed only after consultation with the clinical microbiology laboratory.Refer to previous culture ofBacteroides species, not fragilis ANAEROBIC [id number] 16:42:00 Test Item Value Reference Range Comments CULTURE (BEAKER) (test 4+ Bacteroides species, not nnuv=8084) fragilis ANAEROBIC [id number] 16:37:00 Test Item Value Reference Range Comments CULTURE (BEAKER) (test 1+ Same organism has been isolated racb=9386) from culture(s) of the same body site and collection date. Repeat identification performed only after consultation with the clinical microbiology laboratory.Refer to previous culture ofBacteroides species, not fragilis POCT-GLUCOSE [id number] 09:46:00 Test Item Value Reference Range Comments POC-GLUCOSE METER (BEAKER) 114 mg/dL 70-110 TESTED AT [address] (test bwfz=7271) [place] [address] POCT-GLUCOSE [id number] 09:03:00 Test Item Value Reference Range Comments POC-GLUCOSE METER (BEAKER) 117 mg/dL 70-110 TESTED AT [facility] [address] [facility] (test pfnh=7767) [facility] [address] BASIC METABOLIC [id number] 06:08:00 Test Item Value Reference Range Comments SODIUM (BEAKER) (test 137 meq/L 136-145 fqgk=351) POTASSIUM (BEAKER) (test 4.3 meq/L 3.5-5.1 uuik=743) CHLORIDE (BEAKER) (test 99 meq/L 98-107 wmnc=358) CO2 (BEAKER) (test 28 meq/L 22-29 flmr=867) BLOOD UREA NITROGEN 36 mg/dL 7-21 (BEAKER) (test ohym=107) CREATININE (BEAKER) (test 5.01 mg/dL 0.57-1.25 xbcc=818) GLUCOSE RANDOM (BEAKER) 78 mg/dL 70-105 (test ydfg=091) CALCIUM (BEAKER) (test 8.9 mg/dL 8.4-10.2 hfeq=528) EGFR (BEAKER) (test 11 mL/min/1.73 sq m ESTIMATED GFR IS NOT ssvi=0318) ACCURATE CREATININE CLEARANCE IN PREDICTING GLOMERULAR FILTRATION RATE. ESTIMATED GFR IS NOT APPLICABLE FOR DIALYSIS PATIENTS. [id number] 06:04:00 Test Item Value Reference Range Comments PHOSPHORUS (BEAKER) (test fdrn=194) 3.9 mg/dL 2.3-4.7 [id number] 06:04:00 Test Item Value Reference Range Comments MAGNESIUM (BEAKER) (test ogpi=503) 2.0 mg/dL 1.6-2.6 CBC W/PLT COUNT & AUTO [id number] 05:20:00 Test Item Value Reference Range Comments WHITE BLOOD CELL COUNT (BEAKER) (test uwmn=271) 8.3 K/ L 3.5-10.5 RED BLOOD CELL COUNT (BEAKER) (test ipma=290) 3.03 M/ L 4.63-6.08 HEMOGLOBIN (BEAKER) (test kcst=470) 9.7 GM/DL 13.7-17.5 HEMATOCRIT (BEAKER) (test wlif=127) 30.9 % 40.1-51.0 MEAN CORPUSCULAR VOLUME (BEAKER) (test ybup=765) 102.0 fL 79.0-92.2 MEAN CORPUSCULAR HEMOGLOBIN (BEAKER) (test 32.0 pg 25.7-32.2 vspb=685) MEAN CORPUSCULAR HEMOGLOBIN CONC (BEAKER) (test 31.4 GM/DL 32.3-36.5 jtgv=627) RED CELL DISTRIBUTION WIDTH (BEAKER) (test 16.7 % 11.6-14.4 fozo=993) PLATELET COUNT (BEAKER) (test ksvn=140) 238 K/CU MM 150-450 MEAN PLATELET VOLUME (BEAKER) (test gsxc=370) 11.3 fL 9.4-12.4 NUCLEATED RED BLOOD CELLS (BEAKER) (test 0 /100 WBC 0-0 xhdd=887) NEUTROPHILS RELATIVE PERCENT (BEAKER) (test 66 % geoo=398) LYMPHOCYTES RELATIVE PERCENT (BEAKER) (test 15 % ogef=554) MONOCYTES RELATIVE PERCENT (BEAKER) (test 11 % jlpi=714) EOSINOPHILS RELATIVE PERCENT (BEAKER) (test 7 % mtsp=002) BASOPHILS RELATIVE PERCENT (BEAKER) (test 1 % bkss=936) NEUTROPHILS ABSOLUTE COUNT (BEAKER) (test 5.46 K/ L 1.78-5.38 mxvq=941) LYMPHOCYTES ABSOLUTE COUNT (BEAKER) (test 1.21 K/ L 1.32-3.57 mzej=730) MONOCYTES ABSOLUTE COUNT (BEAKER) (test 0.90 K/ L 0.30-0.82 lufu=422) EOSINOPHILS ABSOLUTE COUNT (BEAKER) (test 0.59 K/ L 0.04-0.54 beuy=587) BASOPHILS ABSOLUTE COUNT (BEAKER) (test 0.08 K/ L 0.01-0.08 gxkn=374) IMMATURE GRANULOCYTES-RELATIVE PERCENT (BEAKER) 0 % 0-1 (test yany=0862) POCT-GLUCOSE [id number] 21:31:00 Test Item Value Reference Range Comments POC-GLUCOSE METER (BEAKER) 102 mg/dL 70-110 TESTED AT [address] (test evvi=8529) [facility] [address] POCT-GLUCOSE [id number] 18:22:00 Test Item Value Reference Range Comments POC-GLUCOSE METER (BEAKER) 119 mg/dL 70-110 TESTED AT [address] (test aybo=2584) [facility] [address] POCT-GLUCOSE [id number] 13:19:00 Test Item Value Reference Range Comments POC-GLUCOSE METER (BEAKER) 169 mg/dL 70-110 TESTED AT [address] (test bjvk=6812) [facility] [address] POCT-GLUCOSE [id number] 13:19:00 Test Item Value Reference Range Comments POC-GLUCOSE METER (BEAKER) 149 mg/dL 70-110 TESTED AT [address] (test ibgx=9030) [facility] [address] [id number] 05:26:00 Test Item Value Reference Range Comments PHOSPHORUS (BEAKER) (test ziix=624) 2.8 mg/dL 2.3-4.7 [id number] 05:26:00 Test Item Value Reference Range Comments MAGNESIUM (BEAKER) (test hrkk=149) 2.0 mg/dL 1.6-2.6 CBC W/PLT COUNT & AUTO [id number] 05:06:00 Test Item Value Reference Range Comments WHITE BLOOD CELL COUNT (BEAKER) (test fugc=516) 8.8 K/ L 3.5-10.5 RED BLOOD CELL COUNT (BEAKER) (test avfv=777) 2.80 M/ L 4.63-6.08 HEMOGLOBIN (BEAKER) (test hnmq=595) 9.2 GM/DL 13.7-17.5 HEMATOCRIT (BEAKER) (test nlng=296) 28.9 % 40.1-51.0 MEAN CORPUSCULAR VOLUME (BEAKER) (test mudi=988) 103.2 fL 79.0-92.2 MEAN CORPUSCULAR HEMOGLOBIN (BEAKER) (test 32.9 pg 25.7-32.2 rkna=040) MEAN CORPUSCULAR HEMOGLOBIN CONC (BEAKER) (test 31.8 GM/DL 32.3-36.5 ilab=813) RED CELL DISTRIBUTION WIDTH (BEAKER) (test 16.9 % 11.6-14.4 sggk=447) PLATELET COUNT (BEAKER) (test mwco=955) 202 K/CU MM 150-450 MEAN PLATELET VOLUME (BEAKER) (test nlxm=204) 11.4 fL 9.4-12.4 NUCLEATED RED BLOOD CELLS (BEAKER) (test 0 /100 WBC 0-0 mocd=969) NEUTROPHILS RELATIVE PERCENT (BEAKER) (test 67 % ggbl=198) LYMPHOCYTES RELATIVE PERCENT (BEAKER) (test 14 % yalu=465) MONOCYTES RELATIVE PERCENT (BEAKER) (test 13 % wxek=234) EOSINOPHILS RELATIVE PERCENT (BEAKER) (test 4 % mvvo=256) BASOPHILS RELATIVE PERCENT (BEAKER) (test 1 % lftm=111) NEUTROPHILS ABSOLUTE COUNT (BEAKER) (test 5.89 K/ L 1.78-5.38 wrni=601) LYMPHOCYTES ABSOLUTE COUNT (BEAKER) (test 1.25 K/ L 1.32-3.57 hemn=348) MONOCYTES ABSOLUTE COUNT (BEAKER) (test 1.13 K/ L 0.30-0.82 rzwk=783) EOSINOPHILS ABSOLUTE COUNT (BEAKER) (test 0.39 K/ L 0.04-0.54 xsec=888) BASOPHILS ABSOLUTE COUNT (BEAKER) (test 0.09 K/ L 0.01-0.08 sgra=407) IMMATURE GRANULOCYTES-RELATIVE PERCENT (BEAKER) 1 % 0-1 (test sejp=1174) POCT-GLUCOSE [id number] 21:42:00 Test Item Value Reference Range Comments POC-GLUCOSE METER (BEAKER) 189 mg/dL 70-110 TESTED AT [address] (test txiv=8734) [place] [address] POCT-GLUCOSE [id number] 17:52:00 Test Item Value Reference Range Comments POC-GLUCOSE METER (BEAKER) 140 mg/dL 70-110 TESTED AT [address] (test tprp=7240) [place] [address] POCT-GLUCOSE [id number] 14:50:00 Test Item Value Reference Range Comments POC-GLUCOSE METER (BEAKER) 108 mg/dL 70-110 TESTED AT [address] (test cndo=1805) [place] [address] POCT-GLUCOSE [id number] 13:07:00 Test Item Value Reference Range Comments POC-GLUCOSE METER (BEAKER) 139 mg/dL 70-110 TESTED AT [address] (test nygm=3026) [place] [address] VITAMIN B12 AND [id number] 12:59:00 Test Item Value Reference Range Comments VITAMIN B12 (BEAKER) (test grio=037) 1098 pg/mL 213-816 FOLATE (BEAKER) (test btbo=223) 12.9 ng/mL >=7.0 SURGICALLY OBTAINED CULTURE + GRAM [id number] 09:25:00 Test Item Value Reference Range Comments CULTURE (BEAKER) (test KLEBSIELLA OXYTOCA 4+ Klebsiella huxm=2802) oxytocaESBL Positive Amikacin (test code=1) Ampicillin + Sulbactam (test code=6) Aztreonam (test code=32) Cefepime (test code=51) Cefoxitin (test code=68) Ceftazidime (test code=27) Ceftriaxone (test code=52) Ertapenem (test code=38) Gentamicin (test code=18) Levofloxacin (test code=22) Meropenem (test code=34) Nitrofurantoin (test code=23) Piperacillin + Tazobactam (test code=29) Tetracycline (test code=2) Tobramycin (test code=25) Trimethoprim + Sulfamethoxazole (test code=47) CULTURE (BEAKER) (test <1+ Same organism has mxql=4756) been isolated from cultures(s) of the same body site and collection date. Repeat identification and susceptibility testing performed only after consultation with the clinical microbiology laboratory.Refer to previous culture ofAchromobacter species GRAM STAIN RESULT (BEAKER) <1+ WBCs (test mrwv=6927) GRAM STAIN RESULT (BEAKER) No organisms seen (test fvfl=138255) SURGICALLY OBTAINED CULTURE + GRAM [id number] 09:24:00 Test Item Value Reference Range Comments CULTURE (BEAKER) (test <1+ Achromobacter species crxh=0635) GRAM STAIN RESULT <1+ WBCs (BEAKER) (test egru=3095) GRAM STAIN RESULT No organisms seen (BEAKER) (test fyij=193758) POCT-GLUCOSE [id number] 08:02:00 Test Item Value Reference Range Comments POC-GLUCOSE METER (BEAKER) 97 mg/dL 70-110 TESTED AT [facility] [address] [facility] (test ezer=7873) [facility] [address] [id number] 07:07:00 Test Item Value Reference Range Comments PHOSPHORUS (BEAKER) (test kiga=230) 3.1 mg/dL 2.3-4.7 [id number] 07:07:00 Test Item Value Reference Range Comments MAGNESIUM (BEAKER) (test artg=041) 1.8 mg/dL 1.6-2.6 CBC W/PLT COUNT & AUTO [id number] 05:56:00 Test Item Value Reference Range Comments WHITE BLOOD CELL COUNT (BEAKER) (test pzom=848) 10.3 K/ L 3.5-10.5 RED BLOOD CELL COUNT (BEAKER) (test dopc=266) 2.78 M/ L 4.63-6.08 HEMOGLOBIN (BEAKER) (test csmw=267) 9.1 GM/DL 13.7-17.5 HEMATOCRIT (BEAKER) (test cbhi=006) 28.7 % 40.1-51.0 MEAN CORPUSCULAR VOLUME (BEAKER) (test ymlk=547) 103.2 fL 79.0-92.2 MEAN CORPUSCULAR HEMOGLOBIN (BEAKER) (test 32.7 pg 25.7-32.2 sqno=097) MEAN CORPUSCULAR HEMOGLOBIN CONC (BEAKER) (test 31.7 GM/DL 32.3-36.5 pqsy=849) RED CELL DISTRIBUTION WIDTH (BEAKER) (test 17.1 % 11.6-14.4 xtkb=268) PLATELET COUNT (BEAKER) (test vdlu=054) 206 K/CU MM 150-450 MEAN PLATELET VOLUME (BEAKER) (test lwrx=672) 11.9 fL 9.4-12.4 NUCLEATED RED BLOOD CELLS (BEAKER) (test 0 /100 WBC 0-0 aicb=116) NEUTROPHILS RELATIVE PERCENT (BEAKER) (test 68 % ysfh=363) LYMPHOCYTES RELATIVE PERCENT (BEAKER) (test 14 % zmkc=308) MONOCYTES RELATIVE PERCENT (BEAKER) (test 12 % dqfb=711) EOSINOPHILS RELATIVE PERCENT (BEAKER) (test 5 % abmj=684) BASOPHILS RELATIVE PERCENT (BEAKER) (test 1 % dlqj=119) NEUTROPHILS ABSOLUTE COUNT (BEAKER) (test 7.00 K/ L 1.78-5.38 qbah=798) LYMPHOCYTES ABSOLUTE COUNT (BEAKER) (test 1.40 K/ L 1.32-3.57 qerm=918) MONOCYTES ABSOLUTE COUNT (BEAKER) (test 1.19 K/ L 0.30-0.82 eteh=992) EOSINOPHILS ABSOLUTE COUNT (BEAKER) (test 0.54 K/ L 0.04-0.54 vwbd=437) BASOPHILS ABSOLUTE COUNT (BEAKER) (test 0.08 K/ L 0.01-0.08 ufwj=069) IMMATURE GRANULOCYTES-RELATIVE PERCENT (BEAKER) 0 % 0-1 (test ixnc=9509) POCT-GLUCOSE [id number] 23:12:00 Test Item Value Reference Range Comments POC-GLUCOSE METER (BEAKER) 133 mg/dL 70-110 TESTED AT [address] (test zzga=9170) [place] [address] BLOOD [id number] 19:00:00 Test Item Value Reference Range Comments CULTURE (BEAKER) (test tsog=4522) No growth in 5 days POCT-GLUCOSE [id number] 17:33:00 Test Item Value Reference Range Comments POC-GLUCOSE METER (BEAKER) 186 mg/dL 70-110 TESTED AT [address] (test dpdp=6942) [place] [address] POCT-GLUCOSE [id number] 13:57:00 Test Item Value Reference Range Comments POC-GLUCOSE METER (BEAKER) 195 mg/dL 70-110 TESTED AT [address] (test jfse=9829) [place] [address] BLOOD [id number] 11:00:00 Test Item Value Reference Range Comments CULTURE (BEAKER) (test tifs=8118) No growth in 5 days SURGICALLY OBTAINED CULTURE + GRAM [id number] 10:37:00 Test Item Value Reference Range Comments CULTURE (BEAKER) (test rwxo=1198) No growth GRAM STAIN RESULT (BEAKER) (test <1+ WBCs qhvq=8117) GRAM STAIN RESULT (BEAKER) (test No organisms seen wrue=93803) POCT-GLUCOSE [id number] 09:49:00 Test Item Value Reference Range Comments POC-GLUCOSE METER (BEAKER) 107 mg/dL 70-110 TESTED AT [address] (test vgwi=2198) [place] [address] [id number] 06:19:00 Test Item Value Reference Range Comments PHOSPHORUS (BEAKER) (test yxeq=788) 2.7 mg/dL 2.3-4.7 [id number] 06:19:00 Test Item Value Reference Range Comments MAGNESIUM (BEAKER) (test gcce=885) 1.7 mg/dL 1.6-2.6 CBC W/PLT COUNT & AUTO [id number] 05:24:00 Test Item Value Reference Range Comments WHITE BLOOD CELL COUNT (BEAKER) (test jkph=772) 9.3 K/ L 3.5-10.5 RED BLOOD CELL COUNT (BEAKER) (test lpmn=691) 2.73 M/ L 4.63-6.08 HEMOGLOBIN (BEAKER) (test ozyx=399) 8.9 GM/DL 13.7-17.5 HEMATOCRIT (BEAKER) (test xcno=855) 28.0 % 40.1-51.0 MEAN CORPUSCULAR VOLUME (BEAKER) (test oeer=714) 102.6 fL 79.0-92.2 MEAN CORPUSCULAR HEMOGLOBIN (BEAKER) (test 32.6 pg 25.7-32.2 hfol=790) MEAN CORPUSCULAR HEMOGLOBIN CONC (BEAKER) (test 31.8 GM/DL 32.3-36.5 xixv=216) RED CELL DISTRIBUTION WIDTH (BEAKER) (test 17.4 % 11.6-14.4 phvs=417) PLATELET COUNT (BEAKER) (test dqtl=368) 198 K/CU MM 150-450 MEAN PLATELET VOLUME (BEAKER) (test wwle=119) 11.7 fL 9.4-12.4 NUCLEATED RED BLOOD CELLS (BEAKER) (test 0 /100 WBC 0-0 xvgp=606) NEUTROPHILS RELATIVE PERCENT (BEAKER) (test 72 % srri=050) LYMPHOCYTES RELATIVE PERCENT (BEAKER) (test 11 % xrhc=507) MONOCYTES RELATIVE PERCENT (BEAKER) (test 12 % tclb=620) EOSINOPHILS RELATIVE PERCENT (BEAKER) (test 3 % glhx=539) BASOPHILS RELATIVE PERCENT (BEAKER) (test 1 % hxqv=875) NEUTROPHILS ABSOLUTE COUNT (BEAKER) (test 6.71 K/ L 1.78-5.38 ayxu=942) LYMPHOCYTES ABSOLUTE COUNT (BEAKER) (test 1.00 K/ L 1.32-3.57 wpgo=128) MONOCYTES ABSOLUTE COUNT (BEAKER) (test 1.15 K/ L 0.30-0.82 gehc=264) EOSINOPHILS ABSOLUTE COUNT (BEAKER) (test 0.32 K/ L 0.04-0.54 umrd=058) BASOPHILS ABSOLUTE COUNT (BEAKER) (test 0.06 K/ L 0.01-0.08 awzt=251) IMMATURE GRANULOCYTES-RELATIVE PERCENT (BEAKER) 0 % 0-1 (test sjge=2277) POCT-GLUCOSE [id number] 22:37:00 Test Item Value Reference Range Comments POC-GLUCOSE METER (BEAKER) 110 mg/dL 70-110 TESTED AT [address] (test kyag=8604) [place] [id number] POCT-GLUCOSE [id number] 21:15:00 Test Item Value Reference Range Comments POC-GLUCOSE METER (BEAKER) 142 mg/dL 70-110 TESTED AT [address] (test ladd=6693) [place] [id number] POCT-GLUCOSE [id number] 13:13:00 Test Item Value Reference Range Comments POC-GLUCOSE METER (BEAKER) 136 mg/dL 70-110 TESTED AT [address] (test nzol=4158) [facility] [address] POCT-GLUCOSE [id number] 09:36:00 Test Item Value Reference Range Comments POC-GLUCOSE METER (BEAKER) 111 mg/dL 70-110 TESTED AT [address] (test ufco=8288) [facility] [address] BASIC METABOLIC [id number] 06:08:00 Test Item Value Reference Range Comments SODIUM (BEAKER) (test 136 meq/L 136-145 waok=789) POTASSIUM (BEAKER) (test 4.5 meq/L 3.5-5.1 wcun=292) CHLORIDE (BEAKER) (test 97 meq/L 98-107 ympe=844) CO2 (BEAKER) (test 26 meq/L 22-29 lljo=992) BLOOD UREA NITROGEN 44 mg/dL 7-21 (BEAKER) (test rjjg=264) CREATININE (BEAKER) (test 5.76 mg/dL 0.57-1.25 gqee=835) GLUCOSE RANDOM (BEAKER) 78 mg/dL 70-105 (test zybn=630) CALCIUM (BEAKER) (test 8.2 mg/dL 8.4-10.2 xbzy=274) EGFR (BEAKER) (test 10 mL/min/1.73 sq m ESTIMATED GFR IS NOT mteh=9677) ACCURATE CREATININE CLEARANCE IN PREDICTING GLOMERULAR FILTRATION RATE. ESTIMATED GFR IS NOT APPLICABLE FOR DIALYSIS PATIENTS. [id number] 06:02:00 Test Item Value Reference Range Comments PHOSPHORUS (BEAKER) (test djvg=424) 3.3 mg/dL 2.3-4.7 [id number] 06:02:00 Test Item Value Reference Range Comments MAGNESIUM (BEAKER) (test jjio=296) 1.9 mg/dL 1.6-2.6 CBC W/PLT COUNT & AUTO [id number] 05:39:00 Test Item Value Reference Range Comments WHITE BLOOD CELL COUNT (BEAKER) (test qffw=223) 8.8 K/ L 3.5-10.5 RED BLOOD CELL COUNT (BEAKER) (test wjnq=142) 2.71 M/ L 4.63-6.08 HEMOGLOBIN (BEAKER) (test pjfv=574) 8.9 GM/DL 13.7-17.5 HEMATOCRIT (BEAKER) (test yxzz=477) 27.9 % 40.1-51.0 MEAN CORPUSCULAR VOLUME (BEAKER) (test ckyl=354) 103.0 fL 79.0-92.2 MEAN CORPUSCULAR HEMOGLOBIN (BEAKER) (test 32.8 pg 25.7-32.2 yaoz=451) MEAN CORPUSCULAR HEMOGLOBIN CONC (BEAKER) (test 31.9 GM/DL 32.3-36.5 kxqd=309) RED CELL DISTRIBUTION WIDTH (BEAKER) (test 17.3 % 11.6-14.4 enkx=264) PLATELET COUNT (BEAKER) (test obir=752) 177 K/CU MM 150-450 MEAN PLATELET VOLUME (BEAKER) (test jzsb=675) 11.6 fL 9.4-12.4 NUCLEATED RED BLOOD CELLS (BEAKER) (test 0 /100 WBC 0-0 svvl=357) NEUTROPHILS RELATIVE PERCENT (BEAKER) (test 68 % soxx=082) LYMPHOCYTES RELATIVE PERCENT (BEAKER) (test 15 % behr=079) MONOCYTES RELATIVE PERCENT (BEAKER) (test 11 % oxqv=540) EOSINOPHILS RELATIVE PERCENT (BEAKER) (test 5 % cxby=290) BASOPHILS RELATIVE PERCENT (BEAKER) (test 0 % kuai=066) NEUTROPHILS ABSOLUTE COUNT (BEAKER) (test 5.98 K/ L 1.78-5.38 guug=879) LYMPHOCYTES ABSOLUTE COUNT (BEAKER) (test 1.35 K/ L 1.32-3.57 pwij=045) MONOCYTES ABSOLUTE COUNT (BEAKER) (test 0.97 K/ L 0.30-0.82 mmfu=530) EOSINOPHILS ABSOLUTE COUNT (BEAKER) (test 0.45 K/ L 0.04-0.54 sklu=952) BASOPHILS ABSOLUTE COUNT (BEAKER) (test 0.03 K/ L 0.01-0.08 hqvh=159) IMMATURE GRANULOCYTES-RELATIVE PERCENT (BEAKER) 0 % 0-1 (test guhe=2427) POCT-GLUCOSE [id number] 00:11:00 Test Item Value Reference Range Comments POC-GLUCOSE METER (BEAKER) 146 mg/dL 70-110 TESTED AT [address] (test bnpo=3988) [place] [address] POCT-GLUCOSE [id number] 17:14:00 Test Item Value Reference Range Comments POC-GLUCOSE METER (BEAKER) 160 mg/dL 70-110 TESTED AT [address] (test zkyn=7084) [place] [address] POCT-GLUCOSE [id number] 13:54:00 Test Item Value Reference Range Comments POC-GLUCOSE METER (BEAKER) 242 mg/dL 70-110 TESTED AT [address] (test mngk=9153) [place] [address] POCT-GLUCOSE [id number] 13:10:00 Test Item Value Reference Range Comments POC-GLUCOSE METER (BEAKER) 163 mg/dL 70-110 TESTED AT [address] (test ldwe=3767) [place] [id number] POCT-GLUCOSE [id number] 08:35:00 Test Item Value Reference Range Comments POC-GLUCOSE METER (BEAKER) 176 mg/dL 70-110 TESTED AT [address] (test ibse=7355) [place] [address] [id number] 04:40:00 Test Item Value Reference Range Comments PHOSPHORUS (BEAKER) (test gvjg=307) 2.7 mg/dL 2.3-4.7 [id number] 04:40:00 Test Item Value Reference Range Comments MAGNESIUM (BEAKER) (test cdxq=483) 1.8 mg/dL 1.6-2.6 CBC W/PLT COUNT & AUTO [id number] 04:00:00 Test Item Value Reference Range Comments WHITE BLOOD CELL COUNT (BEAKER) (test bytf=086) 8.5 K/ L 3.5-10.5 RED BLOOD CELL COUNT (BEAKER) (test xwmn=866) 2.77 M/ L 4.63-6.08 HEMOGLOBIN (BEAKER) (test bmjs=358) 9.0 GM/DL 13.7-17.5 HEMATOCRIT (BEAKER) (test vvua=573) 28.5 % 40.1-51.0 MEAN CORPUSCULAR VOLUME (BEAKER) (test ijfw=287) 102.9 fL 79.0-92.2 MEAN CORPUSCULAR HEMOGLOBIN (BEAKER) (test 32.5 pg 25.7-32.2 ffez=306) MEAN CORPUSCULAR HEMOGLOBIN CONC (BEAKER) (test 31.6 GM/DL 32.3-36.5 rxqw=475) RED CELL DISTRIBUTION WIDTH (BEAKER) (test 17.7 % 11.6-14.4 kkur=276) PLATELET COUNT (BEAKER) (test cnre=746) 189 K/CU MM 150-450 MEAN PLATELET VOLUME (BEAKER) (test rfkr=258) 11.5 fL 9.4-12.4 NUCLEATED RED BLOOD CELLS (BEAKER) (test 0 /100 WBC 0-0 hfyc=515) NEUTROPHILS RELATIVE PERCENT (BEAKER) (test 72 % qpfx=894) LYMPHOCYTES RELATIVE PERCENT (BEAKER) (test 10 % nink=803) MONOCYTES RELATIVE PERCENT (BEAKER) (test 12 % khzi=914) EOSINOPHILS RELATIVE PERCENT (BEAKER) (test 5 % yorx=011) BASOPHILS RELATIVE PERCENT (BEAKER) (test 1 % mbdd=775) NEUTROPHILS ABSOLUTE COUNT (BEAKER) (test 6.13 K/ L 1.78-5.38 roqh=819) LYMPHOCYTES ABSOLUTE COUNT (BEAKER) (test 0.88 K/ L 1.32-3.57 kybz=945) MONOCYTES ABSOLUTE COUNT (BEAKER) (test 0.98 K/ L 0.30-0.82 rnao=327) EOSINOPHILS ABSOLUTE COUNT (BEAKER) (test 0.39 K/ L 0.04-0.54 dpzm=319) BASOPHILS ABSOLUTE COUNT (BEAKER) (test 0.04 K/ L 0.01-0.08 dwef=594) IMMATURE GRANULOCYTES-RELATIVE PERCENT (BEAKER) 1 % 0-1 (test piuz=9782) POCT-GLUCOSE [id number] 00:16:00 Test Item Value Reference Range Comments POC-GLUCOSE METER (BEAKER) 223 mg/dL 70-110 TESTED AT [address] (test wffw=4517) [place] [address] POCT-GLUCOSE [id number] 16:51:00 Test Item Value Reference Range Comments POC-GLUCOSE METER (BEAKER) 133 mg/dL 70-110 TESTED AT [address] (test hrso=5935) [place] [address] POCT-GLUCOSE [id number] 12:50:00 Test Item Value Reference Range Comments POC-GLUCOSE METER (BEAKER) 178 mg/dL 70-110 TESTED AT [address] (test ehah=0551) [place] [id number] POCT-GLUCOSE [id number] 11:53:00 Test Item Value Reference Range Comments POC-GLUCOSE METER (BEAKER) 177 mg/dL 70-110 TESTED AT [address] (test lgti=4482) [place] [address] POCT-GLUCOSE [id number] 09:58:00 Test Item Value Reference Range Comments POC-GLUCOSE METER (BEAKER) 173 mg/dL 70-110 TESTED AT [address] (test dnus=3999) [place] [address] CBC W/PLT COUNT & AUTO [id number] 06:10:00 Test Item Value Reference Range Comments WHITE BLOOD CELL COUNT (BEAKER) (test btjp=144) 7.8 K/ L 3.5-10.5 RED BLOOD CELL COUNT (BEAKER) (test hhud=210) 3.08 M/ L 4.63-6.08 HEMOGLOBIN (BEAKER) (test exoi=930) 10.0 GM/DL 13.7-17.5 HEMATOCRIT (BEAKER) (test likl=773) 31.2 % 40.1-51.0 MEAN CORPUSCULAR VOLUME (BEAKER) (test frwc=177) 101.3 fL 79.0-92.2 MEAN CORPUSCULAR HEMOGLOBIN (BEAKER) (test 32.5 pg 25.7-32.2 ewmg=877) MEAN CORPUSCULAR HEMOGLOBIN CONC (BEAKER) (test 32.1 GM/DL 32.3-36.5 pqxz=378) RED CELL DISTRIBUTION WIDTH (BEAKER) (test 18.7 % 11.6-14.4 sfol=245) PLATELET COUNT (BEAKER) (test ufns=651) 177 K/CU MM 150-450 MEAN PLATELET VOLUME (BEAKER) (test ulzn=739) 11.4 fL 9.4-12.4 NUCLEATED RED BLOOD CELLS (BEAKER) (test 0 /100 WBC 0-0 eqbv=307) NEUTROPHILS RELATIVE PERCENT (BEAKER) (test 63 % iqdi=027) LYMPHOCYTES RELATIVE PERCENT (BEAKER) (test 15 % wdkh=470) MONOCYTES RELATIVE PERCENT (BEAKER) (test 12 % oezc=407) EOSINOPHILS RELATIVE PERCENT (BEAKER) (test 8 % xzue=402) BASOPHILS RELATIVE PERCENT (BEAKER) (test 1 % aziq=361) NEUTROPHILS ABSOLUTE COUNT (BEAKER) (test 4.90 K/ L 1.78-5.38 nbnn=514) LYMPHOCYTES ABSOLUTE COUNT (BEAKER) (test 1.16 K/ L 1.32-3.57 alnq=978) MONOCYTES ABSOLUTE COUNT (BEAKER) (test 0.92 K/ L 0.30-0.82 xuhk=160) EOSINOPHILS ABSOLUTE COUNT (BEAKER) (test 0.65 K/ L 0.04-0.54 csch=947) BASOPHILS ABSOLUTE COUNT (BEAKER) (test 0.09 K/ L 0.01-0.08 akvh=608) IMMATURE GRANULOCYTES-RELATIVE PERCENT (BEAKER) 1 % 0-1 (test mwrf=0262) [id number] 06:08:00 Test Item Value Reference Range Comments POTASSIUM (BEAKER) (test wqbg=754) 4.1 meq/L 3.5-5.1 [id number] 06:08:00 Test Item Value Reference Range Comments MAGNESIUM (BEAKER) (test exdo=532) 1.7 mg/dL 1.6-2.6 [id number] 06:08:00 Test Item Value Reference Range Comments PHOSPHORUS (BEAKER) (test gpal=599) 2.4 mg/dL 2.3-4.7 POCT-GLUCOSE [id number] 05:20:00 Test Item Value Reference Range Comments POC-GLUCOSE METER (BEAKER) 170 mg/dL 70-110 TESTED AT [address] (test jpyd=2355) [facility] [address] POCT-GLUCOSE [id number] 20:31:00 Test Item Value Reference Range Comments POC-GLUCOSE METER (BEAKER) 157 mg/dL 70-110 TESTED AT [address] (test pxjp=7483) [facility] [address] POCT-GLUCOSE [id number] 15:40:00 Test Item Value Reference Range Comments POC-GLUCOSE METER (BEAKER) 148 mg/dL 70-110 TESTED AT [address] (test rtsu=1485) [facility] [address] [id number] 10:23:00 Test Item Value Reference Range Comments POTASSIUM (BEAKER) (test qcsg=531) 4.0 meq/L 3.5-5.1 CBC W/PLT COUNT & AUTO [id number] 05:56:00 Test Item Value Reference Range Comments WHITE BLOOD CELL COUNT (BEAKER) (test otnn=244) 6.9 K/ L 3.5-10.5 RED BLOOD CELL COUNT (BEAKER) (test diwd=887) 2.06 M/ L 4.63-6.08 HEMOGLOBIN (BEAKER) (test htgv=203) 6.9 GM/DL 13.7-17.5 HEMATOCRIT (BEAKER) (test mgrp=051) 22.2 % 40.1-51.0 MEAN CORPUSCULAR VOLUME (BEAKER) (test xjqu=480) 107.8 fL 79.0-92.2 MEAN CORPUSCULAR HEMOGLOBIN (BEAKER) (test 33.5 pg 25.7-32.2 wiqa=720) MEAN CORPUSCULAR HEMOGLOBIN CONC (BEAKER) (test 31.1 GM/DL 32.3-36.5 vmku=147) RED CELL DISTRIBUTION WIDTH (BEAKER) (test 16.2 % 11.6-14.4 fdoh=271) PLATELET COUNT (BEAKER) (test aizg=373) 200 K/CU MM 150-450 MEAN PLATELET VOLUME (BEAKER) (test ceqb=865) 11.0 fL 9.4-12.4 NUCLEATED RED BLOOD CELLS (BEAKER) (test 0 /100 WBC 0-0 kgdu=293) NEUTROPHILS RELATIVE PERCENT (BEAKER) (test 59 % nynq=845) LYMPHOCYTES RELATIVE PERCENT (BEAKER) (test 21 % fvbw=370) MONOCYTES RELATIVE PERCENT (BEAKER) (test 13 % atci=273) EOSINOPHILS RELATIVE PERCENT (BEAKER) (test 6 % ture=909) BASOPHILS RELATIVE PERCENT (BEAKER) (test 1 % oglr=273) NEUTROPHILS ABSOLUTE COUNT (BEAKER) (test 4.08 K/ L 1.78-5.38 bfhw=054) LYMPHOCYTES ABSOLUTE COUNT (BEAKER) (test 1.45 K/ L 1.32-3.57 bhzu=752) MONOCYTES ABSOLUTE COUNT (BEAKER) (test 0.90 K/ L 0.30-0.82 ydpj=877) EOSINOPHILS ABSOLUTE COUNT (BEAKER) (test 0.38 K/ L 0.04-0.54 mors=229) BASOPHILS ABSOLUTE COUNT (BEAKER) (test 0.05 K/ L 0.01-0.08 jxjs=854) IMMATURE GRANULOCYTES-RELATIVE PERCENT (BEAKER) 1 % 0-1 (test fbuf=1506) [id number] 05:37:00 Test Item Value Reference Range Comments PHOSPHORUS (BEAKER) (test wnml=410) 3.1 mg/dL 2.3-4.7 [id number] 05:37:00 Test Item Value Reference Range Comments MAGNESIUM (BEAKER) (test ojcd=727) 2.1 mg/dL 1.6-2.6 POCT-GLUCOSE [id number] 17:48:00 Test Item Value Reference Range Comments POC-GLUCOSE METER (BEAKER) 154 mg/dL 70-110 TESTED AT [address] (test wygh=6870) [facility] [address] POCT-GLUCOSE [id number] 12:56:00 Test Item Value Reference Range Comments POC-GLUCOSE METER (BEAKER) 196 mg/dL 70-110 TESTED AT [address] (test fjrt=3369) [facility] [address] POCT-GLUCOSE [id number] 08:41:00 Test Item Value Reference Range Comments POC-GLUCOSE METER (BEAKER) 158 mg/dL 70-110 TESTED AT [place] [id number] (test kiyx=1346) [place] [address] CBC W/PLT COUNT & AUTO [id number] 06:30:00 Test Item Value Reference Range Comments WHITE BLOOD CELL COUNT (BEAKER) (test uleo=654) 9.0 K/ L 3.5-10.5 RED BLOOD CELL COUNT (BEAKER) (test bvzr=627) 2.49 M/ L 4.63-6.08 HEMOGLOBIN (BEAKER) (test kycd=900) 8.2 GM/DL 13.7-17.5 HEMATOCRIT (BEAKER) (test ykdo=271) 27.2 % 40.1-51.0 MEAN CORPUSCULAR VOLUME (BEAKER) (test zaza=781) 109.2 fL 79.0-92.2 MEAN CORPUSCULAR HEMOGLOBIN (BEAKER) (test 32.9 pg 25.7-32.2 gckz=011) MEAN CORPUSCULAR HEMOGLOBIN CONC (BEAKER) (test 30.1 GM/DL 32.3-36.5 foob=117) RED CELL DISTRIBUTION WIDTH (BEAKER) (test 15.9 % 11.6-14.4 aoaz=119) PLATELET COUNT (BEAKER) (test ktsi=990) 214 K/CU MM 150-450 MEAN PLATELET VOLUME (BEAKER) (test fpur=960) 11.3 fL 9.4-12.4 NUCLEATED RED BLOOD CELLS (BEAKER) (test 0 /100 WBC 0-0 kfgl=011) NEUTROPHILS RELATIVE PERCENT (BEAKER) (test 84 % wzpi=481) LYMPHOCYTES RELATIVE PERCENT (BEAKER) (test 7 % feyu=406) MONOCYTES RELATIVE PERCENT (BEAKER) (test 7 % tcok=517) EOSINOPHILS RELATIVE PERCENT (BEAKER) (test 0 % eaxk=820) BASOPHILS RELATIVE PERCENT (BEAKER) (test 1 % okhn=487) NEUTROPHILS ABSOLUTE COUNT (BEAKER) (test 7.60 K/ L 1.78-5.38 hmau=610) LYMPHOCYTES ABSOLUTE COUNT (BEAKER) (test 0.61 K/ L 1.32-3.57 uudo=782) MONOCYTES ABSOLUTE COUNT (BEAKER) (test 0.65 K/ L 0.30-0.82 jekm=824) EOSINOPHILS ABSOLUTE COUNT (BEAKER) (test 0.03 K/ L 0.04-0.54 qlux=036) BASOPHILS ABSOLUTE COUNT (BEAKER) (test 0.09 K/ L 0.01-0.08 wdeo=643) IMMATURE GRANULOCYTES-RELATIVE PERCENT (BEAKER) 1 % 0-1 (test szto=6124) [id number] 06:22:00 Test Item Value Reference Range Comments PHOSPHORUS (BEAKER) (test lgxv=488) 3.0 mg/dL 2.3-4.7 [id number] 06:22:00 Test Item Value Reference Range Comments MAGNESIUM (BEAKER) (test nqtq=570) 1.9 mg/dL 1.6-2.6 POCT-GLUCOSE [id number] 00:08:00 Test Item Value Reference Range Comments POC-GLUCOSE METER (BEAKER) 131 mg/dL 70-110 TESTED AT [address] (test yuof=5963) [facility] [address] POCT-GLUCOSE [id number] 18:50:00 Test Item Value Reference Range Comments POC-GLUCOSE METER (BEAKER) 136 mg/dL 70-110 TESTED AT [address] (test ehmb=1053) [facility] [address] RAD, FOOT, MIN 3 VIEWS, [id number] 13:56:00Reason for exam:->non healing woundFINAL REPORT RAD, [...] MDReport Verified Date/Time: 09/04/2018 13:56:28 Reading Location: [facility] [id number] Consult Reading Room POCT- GLUCOSE [id number] 12:12:00 Test Item Value Reference Range Comments POC-GLUCOSE METER (BEAKER) 125 mg/dL 70-110 TESTED AT [address] (test cpuv=7370) [facility] [address] POCT-GLUCOSE [id number] 08:06:00 Test Item Value Reference Range Comments POC-GLUCOSE METER (BEAKER) 122 mg/dL 70-110 TESTED AT [facility] [address] (test wibx=4715) [facility] [address] CBC W/PLT COUNT & AUTO [id number] 04:43:00 Test Item Value Reference Range Comments WHITE BLOOD CELL COUNT (BEAKER) (test aclw=019) 8.1 K/ L 3.5-10.5 RED BLOOD CELL COUNT (BEAKER) (test seyb=753) 2.40 M/ L 4.63-6.08 HEMOGLOBIN (BEAKER) (test jhkq=376) 7.9 GM/DL 13.7-17.5 HEMATOCRIT (BEAKER) (test basx=349) 25.5 % 40.1-51.0 MEAN CORPUSCULAR VOLUME (BEAKER) (test bvph=460) 106.3 fL 79.0-92.2 MEAN CORPUSCULAR HEMOGLOBIN (BEAKER) (test 32.9 pg 25.7-32.2 lbto=856) MEAN CORPUSCULAR HEMOGLOBIN CONC (BEAKER) (test 31.0 GM/DL 32.3-36.5 rtya=313) RED CELL DISTRIBUTION WIDTH (BEAKER) (test 15.1 % 11.6-14.4 swma=105) PLATELET COUNT (BEAKER) (test rmlr=273) 226 K/CU MM 150-450 MEAN PLATELET VOLUME (BEAKER) (test feuj=159) 11.1 fL 9.4-12.4 NUCLEATED RED BLOOD CELLS (BEAKER) (test 0 /100 WBC 0-0 sapz=548) NEUTROPHILS RELATIVE PERCENT (BEAKER) (test 63 % ikhq=751) LYMPHOCYTES RELATIVE PERCENT (BEAKER) (test 16 % yxnv=587) MONOCYTES RELATIVE PERCENT (BEAKER) (test 11 % plpa=482) EOSINOPHILS RELATIVE PERCENT (BEAKER) (test 9 % mdnf=955) BASOPHILS RELATIVE PERCENT (BEAKER) (test 1 % mctt=423) NEUTROPHILS ABSOLUTE COUNT (BEAKER) (test 5.07 K/ L 1.78-5.38 plaj=127) LYMPHOCYTES ABSOLUTE COUNT (BEAKER) (test 1.31 K/ L 1.32-3.57 qidv=521) MONOCYTES ABSOLUTE COUNT (BEAKER) (test 0.92 K/ L 0.30-0.82 wqvi=562) EOSINOPHILS ABSOLUTE COUNT (BEAKER) (test 0.70 K/ L 0.04-0.54 kbph=812) BASOPHILS ABSOLUTE COUNT (BEAKER) (test 0.07 K/ L 0.01-0.08 vbsx=062) IMMATURE GRANULOCYTES-RELATIVE PERCENT (BEAKER) 0 % 0-1 (test xspw=3008) [id number] 04:39:00 Test Item Value Reference Range Comments PHOSPHORUS (BEAKER) (test sspy=241) 2.9 mg/dL 2.3-4.7 [id number] 04:39:00 Test Item Value Reference Range Comments MAGNESIUM (BEAKER) (test aolo=028) 1.9 mg/dL 1.6-2.6 BASIC METABOLIC [id number] 04:39:00 Test Item Value Reference Range Comments SODIUM (BEAKER) (test 139 meq/L 136-145 czic=175) POTASSIUM (BEAKER) (test 4.3 meq/L 3.5-5.1 amqt=001) CHLORIDE (BEAKER) (test 100 meq/L 98-107 yepc=728) CO2 (BEAKER) (test 30 meq/L 22-29 gzeq=803) BLOOD UREA NITROGEN 29 mg/dL 7-21 (BEAKER) (test ltjr=920) CREATININE (BEAKER) (test 4.41 mg/dL 0.57-1.25 fuee=065) GLUCOSE RANDOM (BEAKER) 115 mg/dL 70-105 (test obmm=577) CALCIUM (BEAKER) (test 8.6 mg/dL 8.4-10.2 uwou=282) EGFR (BEAKER) (test 13 mL/min/1.73 sq m ESTIMATED GFR IS NOT clxn=6651) ACCURATE CREATININE CLEARANCE IN PREDICTING GLOMERULAR FILTRATION RATE. ESTIMATED GFR IS NOT APPLICABLE FOR DIALYSIS PATIENTS. POCT-GLUCOSE [id number] 20:32:00 Test Item Value Reference Range Comments POC-GLUCOSE METER (BEAKER) 177 mg/dL 70-110 TESTED AT [facility] [address] [facility] [address] (test hoxt=8141) [facility] [address] POCT-GLUCOSE [id number] 18:07:00 Test Item Value Reference Range Comments POC-GLUCOSE METER (BEAKER) 141 mg/dL 70-110 TESTED AT [facility] [address] (test ququ=7763) [facility] [address] RESPIRATORY PANEL [id number] 15:28:00 Test Item Value Reference Range Comments HUMAN METAPNEUMOVIRUS (BEAKER) (test Not detected Not detected, Equivocal xwzq=8267) RHINOVIRUS (BEAKER) (test tjnn=5714) Not detected Not detected, Equivocal INFLUENZA A (BEAKER) (test crui=7914) Not detected Not detected, Equivocal INFLUENZA A (NO SUBTYPE) (test Not detected, Equivocal ptio=0817) INFLUENZA A SUBTYPE H1 (BEAKER) (test Not detected, Equivocal gyjt=0326) INFLUENZA A SUBTYPE H3 (BEAKER) (test Not detected, Equivocal jpcn=8489) INFLUENZA A SUBTYPE H1-2009 (BEAKER) Not detected, Equivocal (test dspe=2393) INFLUENZA B (BEAKER) (test ohck=5556) Not detected Not detected, Equivocal RESPIRATORY SYNCYTIAL VIRUS (BEAKER) Not detected Not detected, Equivocal (test lavv=5140) PARAINFLUENZA VIRUS 1 (BEAKER) (test Not detected Not detected, Equivocal xnhu=8920) PARAINFLUENZA VIRUS 2 (BEAKER) (test Not detected Not detected, Equivocal lrtp=5714) PARAINFLUENZA VIRUS 3 (BEAKER) (test Not detected Not detected, Equivocal ilgg=4557) PARAINFLUENZA VIRUS 4 (BEAKER) (test Not detected Not detected, Equivocal eisj=7424) ADENOVIRUS (BEAKER) (test mpsw=4701) Not detected Not detected, Equivocal CORONAVIRUS 229E (BEAKER) (test Not detected Not detected, Equivocal ryiy=1734) CORONAVIRUS HKU1 (BEAKER) (test Not detected Not detected, Equivocal jtzs=4383) CORONAVIRUS NL63 (BEAKER) (test Not detected Not detected, Equivocal ejjh=2519) CORONAVIRUS OC43 (BEAKER) (test Not detected Not detected, Equivocal lhlp=1941) BORDETELLA PERTUSSIS (BEAKER) (test Not detected Not detected, Equivocal vxrp=4702) CHLAMYDOPHILA PNEUMONIAE (BEAKER) (test Not detected Not detected, Equivocal ljew=3918) MYCOPLASMA PNEUMONIAE (BEAKER) (test Not detected Not detected, Equivocal azqz=6706) Other viruses and bacteria not targeted by this PCR panel cannot be excluded; therefore clinical correlation and follow up of serology, culture results, and other molecular studies is required. The results are not intended to be used as the sole means for clinical diagnosis or patient management decisions. This sample was tested at the [facility] Molecular Diagnostics Laboratory using the [employer] Respiratory Panel. It is FDA cleared and has been verified and approved by the [facility] for clinical use on nasal swab specimens. It is not FDA-cleared for use on bronchial wash/lavage samples. However, for this sample type, validation was performed and test characteristics were determined and approved, by [facility]ostics [facility] for clinical use under the Clinical Laboratory Improvement Amendments (CLIA) of 1988 requirements. Therefore, FDA clearance isnot required. This laboratory is CLIA-certified and [employer] ([employer])-accredited to perform high complexity testing.POCT-GLUCOSE [id number] 12:53:00 Test Item Value Reference Range Comments POC-GLUCOSE METER (BEAKER) 147 mg/dL 70-110 TESTED AT [address] (test efxa=1245) [place] [address] POCT-GLUCOSE [id number] 07:57:00 Test Item Value Reference Range Comments POC-GLUCOSE METER (BEAKER) 81 mg/dL 70-110 TESTED AT [address] (test wiik=5082) [place] [address] BASIC METABOLIC [id number] 04:37:00 Test Item Value Reference Range Comments SODIUM (BEAKER) (test 140 meq/L 136-145 gfhg=406) POTASSIUM (BEAKER) (test 3.6 meq/L 3.5-5.1 gmyp=342) CHLORIDE (BEAKER) (test 102 meq/L 98-107 kjra=714) CO2 (BEAKER) (test 32 meq/L 22-29 kfkn=754) BLOOD UREA NITROGEN 19 mg/dL 7-21 (BEAKER) (test rtlo=673) CREATININE (BEAKER) (test 3.20 mg/dL 0.57-1.25 zses=479) GLUCOSE RANDOM (BEAKER) 77 mg/dL 70-105 (test tyuc=004) CALCIUM (BEAKER) (test 8.3 mg/dL 8.4-10.2 imiw=969) EGFR (BEAKER) (test 19 mL/min/1.73 sq m ESTIMATED GFR IS NOT rnkb=6382) ACCURATE CREATININE CLEARANCE IN PREDICTING GLOMERULAR FILTRATION RATE. ESTIMATED GFR IS NOT APPLICABLE FOR DIALYSIS PATIENTS. [id number] 04:34:00 Test Item Value Reference Range Comments PHOSPHORUS (BEAKER) (test curu=658) 1.6 mg/dL 2.3-4.7 [id number] 04:34:00 Test Item Value Reference Range Comments MAGNESIUM (BEAKER) (test dpkq=010) 1.8 mg/dL 1.6-2.6 CBC W/PLT COUNT & AUTO [id number] 04:31:00 Test Item Value Reference Range Comments WHITE BLOOD CELL COUNT (BEAKER) (test dewd=860) 8.4 K/ L 3.5-10.5 RED BLOOD CELL COUNT (BEAKER) (test arqc=654) 2.20 M/ L 4.63-6.08 HEMOGLOBIN (BEAKER) (test fxop=129) 7.3 GM/DL 13.7-17.5 HEMATOCRIT (BEAKER) (test yejg=290) 23.1 % 40.1-51.0 MEAN CORPUSCULAR VOLUME (BEAKER) (test xurq=684) 105.0 fL 79.0-92.2 MEAN CORPUSCULAR HEMOGLOBIN (BEAKER) (test 33.2 pg 25.7-32.2 iayl=237) MEAN CORPUSCULAR HEMOGLOBIN CONC (BEAKER) (test 31.6 GM/DL 32.3-36.5 fmou=070) RED CELL DISTRIBUTION WIDTH (BEAKER) (test 14.8 % 11.6-14.4 acff=119) PLATELET COUNT (BEAKER) (test kukg=957) 184 K/CU MM 150-450 MEAN PLATELET VOLUME (BEAKER) (test ltjr=426) 10.5 fL 9.4-12.4 NUCLEATED RED BLOOD CELLS (BEAKER) (test 0 /100 WBC 0-0 zlvg=238) NEUTROPHILS RELATIVE PERCENT (BEAKER) (test 62 % zljw=173) LYMPHOCYTES RELATIVE PERCENT (BEAKER) (test 20 % pcnd=848) MONOCYTES RELATIVE PERCENT (BEAKER) (test 12 % nsls=549) EOSINOPHILS RELATIVE PERCENT (BEAKER) (test 6 % gvpi=185) BASOPHILS RELATIVE PERCENT (BEAKER) (test 1 % itwa=507) NEUTROPHILS ABSOLUTE COUNT (BEAKER) (test 5.18 K/ L 1.78-5.38 eksn=466) LYMPHOCYTES ABSOLUTE COUNT (BEAKER) (test 1.66 K/ L 1.32-3.57 lpap=620) MONOCYTES ABSOLUTE COUNT (BEAKER) (test 0.96 K/ L 0.30-0.82 llwc=428) EOSINOPHILS ABSOLUTE COUNT (BEAKER) (test 0.51 K/ L 0.04-0.54 jzgp=153) BASOPHILS ABSOLUTE COUNT (BEAKER) (test 0.04 K/ L 0.01-0.08 vjnc=203) IMMATURE GRANULOCYTES-RELATIVE PERCENT (BEAKER) 0 % 0-1 (test jsdq=4306) POCT-GLUCOSE [id number] 22:13:00 Test Item Value Reference Range Comments POC-GLUCOSE METER (BEAKER) 197 mg/dL 70-110 TESTED AT [address] (test kxeu=3387) [place] [id number] POCT-GLUCOSE [id number] 17:38:00 Test Item Value Reference Range Comments POC-GLUCOSE METER (BEAKER) 229 mg/dL 70-110 TESTED AT [address] (test mlce=4705) [place] [id number] POCT-GLUCOSE [id number] 08:11:00 Test Item Value Reference Range Comments POC-GLUCOSE METER (BEAKER) 148 mg/dL 70-110 TESTED AT [address] (test jrkj=7674) [facility] [address] [id number] 07:28:00 Test Item Value Reference Range Comments FERRITIN (BEAKER) (test vnrb=212) 414 ng/mL 5-275 IRON, TIBC, % SAT. (WITHOUT FERRITIN)[id number] 07:03:00 Test Item Value Reference Range Comments IRON (BEAKER) (test nzev=809) 55.0 ug/dL 40.0-160.0 TOTAL IRON BINDING CAPACITY (BEAKER) (test 148 ug/dL 250-450 rvhz=005) IRON % SATURATION (2) (BEAKER) (test ekxv=1988) 37 % 20-55 BASIC METABOLIC [id number] 04:17:00 Test Item Value Reference Range Comments SODIUM (BEAKER) (test 135 meq/L 136-145 jaig=935) POTASSIUM (BEAKER) (test 4.4 meq/L 3.5-5.1 abvm=912) CHLORIDE (BEAKER) (test 101 meq/L 98-107 yldn=707) CO2 (BEAKER) (test 26 meq/L 22-29 oxdo=298) BLOOD UREA NITROGEN 29 mg/dL 7-21 (BEAKER) (test tcdr=238) CREATININE (BEAKER) (test 5.20 mg/dL 0.57-1.25 kqok=333) GLUCOSE RANDOM (BEAKER) 119 mg/dL 70-105 (test clel=478) CALCIUM (BEAKER) (test 8.4 mg/dL 8.4-10.2 ovrl=904) EGFR (BEAKER) (test 11 mL/min/1.73 sq m ESTIMATED GFR IS NOT klrl=7151) ACCURATE CREATININE CLEARANCE IN PREDICTING GLOMERULAR FILTRATION RATE. ESTIMATED GFR IS NOT APPLICABLE FOR DIALYSIS PATIENTS. CBC W/PLT COUNT & AUTO [id number] 04:13:00 Test Item Value Reference Range Comments WHITE BLOOD CELL COUNT (BEAKER) (test nseg=200) 8.1 K/ L 3.5-10.5 RED BLOOD CELL COUNT (BEAKER) (test atms=602) 2.19 M/ L 4.63-6.08 HEMOGLOBIN (BEAKER) (test eprh=669) 7.3 GM/DL 13.7-17.5 HEMATOCRIT (BEAKER) (test tntu=915) 23.1 % 40.1-51.0 MEAN CORPUSCULAR VOLUME (BEAKER) (test aslo=986) 105.5 fL 79.0-92.2 MEAN CORPUSCULAR HEMOGLOBIN (BEAKER) (test 33.3 pg 25.7-32.2 twgu=171) MEAN CORPUSCULAR HEMOGLOBIN CONC (BEAKER) (test 31.6 GM/DL 32.3-36.5 smee=889) RED CELL DISTRIBUTION WIDTH (BEAKER) (test 14.7 % 11.6-14.4 ktpo=808) PLATELET COUNT (BEAKER) (test nxrd=571) 168 K/CU MM 150-450 MEAN PLATELET VOLUME (BEAKER) (test hugh=866) 11.4 fL 9.4-12.4 NUCLEATED RED BLOOD CELLS (BEAKER) (test 0 /100 WBC 0-0 sxbu=670) NEUTROPHILS RELATIVE PERCENT (BEAKER) (test 63 % lwtc=437) LYMPHOCYTES RELATIVE PERCENT (BEAKER) (test 17 % yvsl=482) MONOCYTES RELATIVE PERCENT (BEAKER) (test 9 % ifrb=294) EOSINOPHILS RELATIVE PERCENT (BEAKER) (test 10 % bjkt=170) BASOPHILS RELATIVE PERCENT (BEAKER) (test 0 % agqw=727) NEUTROPHILS ABSOLUTE COUNT (BEAKER) (test 5.13 K/ L 1.78-5.38 kxxu=184) LYMPHOCYTES ABSOLUTE COUNT (BEAKER) (test 1.40 K/ L 1.32-3.57 jtnc=598) MONOCYTES ABSOLUTE COUNT (BEAKER) (test 0.72 K/ L 0.30-0.82 mekb=863) EOSINOPHILS ABSOLUTE COUNT (BEAKER) (test 0.81 K/ L 0.04-0.54 dckt=919) BASOPHILS ABSOLUTE COUNT (BEAKER) (test 0.03 K/ L 0.01-0.08 vuhy=394) IMMATURE GRANULOCYTES-RELATIVE PERCENT (BEAKER) 0 % 0-1 (test omdk=8237) [id number] 04:11:00 Test Item Value Reference Range Comments PHOSPHORUS (BEAKER) (test llyv=987) 3.5 mg/dL 2.3-4.7 [id number] 04:11:00 Test Item Value Reference Range Comments MAGNESIUM (BEAKER) (test xqxb=317) 2.2 mg/dL 1.6-2.6 POCT-GLUCOSE [id number] 21:35:00 Test Item Value Reference Range Comments POC-GLUCOSE METER (BEAKER) 165 mg/dL 70-110 TESTED AT [address] (test huhl=8195) [facility] [address] POCT-GLUCOSE [id number] 17:33:00 Test Item Value Reference Range Comments POC-GLUCOSE METER (BEAKER) 200 mg/dL 70-110 TESTED AT [address] (test iokg=9334) [facility] [address] POCT-GLUCOSE [id number] 13:15:00 Test Item Value Reference Range Comments POC-GLUCOSE METER (BEAKER) 188 mg/dL 70-110 TESTED AT [address] (test rihi=5202) [facility] [address] POCT-GLUCOSE [id number] 09:59:00 Test Item Value Reference Range Comments POC-GLUCOSE METER (BEAKER) 214 mg/dL 70-110 TESTED AT [facility] [address] (test aeda=5984) [place] [address] CBC W/PLT COUNT & AUTO [id number] 07:15:00 Test Item Value Reference Range Comments WHITE BLOOD CELL COUNT (BEAKER) (test szfu=463) 7.6 K/ L 3.5-10.5 RED BLOOD CELL COUNT (BEAKER) (test hkww=081) 2.26 M/ L 4.63-6.08 HEMOGLOBIN (BEAKER) (test gakf=866) 7.6 GM/DL 13.7-17.5 HEMATOCRIT (BEAKER) (test oeeh=520) 24.1 % 40.1-51.0 MEAN CORPUSCULAR VOLUME (BEAKER) (test zdfr=946) 106.6 fL 79.0-92.2 MEAN CORPUSCULAR HEMOGLOBIN (BEAKER) (test 33.6 pg 25.7-32.2 ygvk=241) MEAN CORPUSCULAR HEMOGLOBIN CONC (BEAKER) (test 31.5 GM/DL 32.3-36.5 qlbw=667) RED CELL DISTRIBUTION WIDTH (BEAKER) (test 14.6 % 11.6-14.4 yggy=544) PLATELET COUNT (BEAKER) (test lqvz=971) 155 K/CU MM 150-450 MEAN PLATELET VOLUME (BEAKER) (test yror=265) 11.7 fL 9.4-12.4 NUCLEATED RED BLOOD CELLS (BEAKER) (test 0 /100 WBC 0-0 gjmk=768) NEUTROPHILS RELATIVE PERCENT (BEAKER) (test 64 % jurj=734) LYMPHOCYTES RELATIVE PERCENT (BEAKER) (test 14 % hmzo=974) MONOCYTES RELATIVE PERCENT (BEAKER) (test 11 % icsf=473) EOSINOPHILS RELATIVE PERCENT (BEAKER) (test 10 % tvqa=753) BASOPHILS RELATIVE PERCENT (BEAKER) (test 1 % qzjk=904) NEUTROPHILS ABSOLUTE COUNT (BEAKER) (test 4.88 K/ L 1.78-5.38 xqlj=934) LYMPHOCYTES ABSOLUTE COUNT (BEAKER) (test 1.04 K/ L 1.32-3.57 zhti=709) MONOCYTES ABSOLUTE COUNT (BEAKER) (test 0.82 K/ L 0.30-0.82 yzzb=734) EOSINOPHILS ABSOLUTE COUNT (BEAKER) (test 0.77 K/ L 0.04-0.54 nvrp=781) BASOPHILS ABSOLUTE COUNT (BEAKER) (test 0.04 K/ L 0.01-0.08 qjaw=756) IMMATURE GRANULOCYTES-RELATIVE PERCENT (BEAKER) 0 % 0-1 (test lzmx=9425) BASIC METABOLIC [id number] 06:48:00 Test Item Value Reference Range Comments SODIUM (BEAKER) (test 133 meq/L 136-145 yzbg=236) POTASSIUM (BEAKER) (test 3.4 meq/L 3.5-5.1 qlns=146) CHLORIDE (BEAKER) (test 99 meq/L 98-107 xjdr=131) CO2 (BEAKER) (test 27 meq/L 22-29 fwhj=234) BLOOD UREA NITROGEN 20 mg/dL 7-21 (BEAKER) (test pjob=175) CREATININE (BEAKER) (test 4.24 mg/dL 0.57-1.25 beub=920) GLUCOSE RANDOM (BEAKER) 165 mg/dL 70-105 (test fzmy=402) CALCIUM (BEAKER) (test 8.4 mg/dL 8.4-10.2 gkrw=780) EGFR (BEAKER) (test 14 mL/min/1.73 sq m ESTIMATED GFR IS NOT mjte=6136) ACCURATE CREATININE CLEARANCE IN PREDICTING GLOMERULAR FILTRATION RATE. ESTIMATED GFR IS NOT APPLICABLE FOR DIALYSIS PATIENTS. [id number] 06:43:00 Test Item Value Reference Range Comments PHOSPHORUS (BEAKER) (test jpyg=782) 1.7 mg/dL 2.3-4.7 [id number] 06:43:00 Test Item Value Reference Range Comments MAGNESIUM (BEAKER) (test lswi=505) 1.9 mg/dL 1.6-2.6 POCT-GLUCOSE [id number] 06:32:00 Test Item Value Reference Range Comments POC-GLUCOSE METER (BEAKER) 201 mg/dL 70-110 TESTED AT [address] (test zpzz=4785) [facility] [address] POCT-GLUCOSE [id number] 17:39:00 Test Item Value Reference Range Comments POC-GLUCOSE METER (BEAKER) 206 mg/dL 70-110 TESTED AT [address] (test lert=9627) [facility] [address] POCT-GLUCOSE [id number] 12:46:00 Test Item Value Reference Range Comments POC-GLUCOSE METER (BEAKER) 191 mg/dL 70-110 TESTED AT [facility] [address] [facility] (test ezsz=1082) [facility] [address] POCT-GLUCOSE [id number] 09:46:00 Test Item Value Reference Range Comments POC-GLUCOSE METER (BEAKER) 105 mg/dL 70-110 TESTED AT [place] [id number] [facility] (test ychz=8262) [facility] [address] POCT-GLUCOSE [id number] 08:34:00 Test Item Value Reference Range Comments POC-GLUCOSE METER (BEAKER) 145 mg/dL 70-110 TESTED AT [address] (test qsob=6464) [facility] [address] TROPONIN [id number] 04:58:00 Test Item Value Reference Range Comments TROPONIN I (BEAKER) (test vzkj=874) 0.07 ng/mL 0.00-0.03 Troponin I (TnI) levels [...] acute neurological disease, and persistent tachyarrhythmia.BASIC METABOLIC [id number] 04:54:00 Test Item Value Reference Range Comments SODIUM (BEAKER) (test 135 meq/L 136-145 deij=809) POTASSIUM (BEAKER) (test 3.9 meq/L 3.5-5.1 spqv=546) CHLORIDE (BEAKER) (test 100 meq/L 98-107 pitq=106) CO2 (BEAKER) (test 27 meq/L 22-29 nbmc=192) BLOOD UREA NITROGEN 12 mg/dL 7-21 (BEAKER) (test otmf=806) CREATININE (BEAKER) (test 2.68 mg/dL 0.57-1.25 caaz=485) GLUCOSE RANDOM (BEAKER) 132 mg/dL 70-105 (test jdjw=902) CALCIUM (BEAKER) (test 8.6 mg/dL 8.4-10.2 wnfr=945) EGFR (BEAKER) (test 23 mL/min/1.73 sq m ESTIMATED GFR IS NOT oakb=8718) ACCURATE CREATININE CLEARANCE IN PREDICTING GLOMERULAR FILTRATION RATE. ESTIMATED GFR IS NOT APPLICABLE FOR DIALYSIS PATIENTS. [id number] 04:50:00 Test Item Value Reference Range Comments PHOSPHORUS (BEAKER) (test ogdt=023) 2.0 mg/dL 2.3-4.7 [id number] 04:50:00 Test Item Value Reference Range Comments MAGNESIUM (BEAKER) (test kvzi=052) 1.8 mg/dL 1.6-2.6 CBC W/PLT COUNT & AUTO [id number] 04:27:00 Test Item Value Reference Range Comments WHITE BLOOD CELL COUNT (BEAKER) (test axjy=119) 7.8 K/ L 3.5-10.5 RED BLOOD CELL COUNT (BEAKER) (test ysuj=116) 2.63 M/ L 4.63-6.08 HEMOGLOBIN (BEAKER) (test rtnd=368) 8.6 GM/DL 13.7-17.5 HEMATOCRIT (BEAKER) (test rkzg=810) 27.3 % 40.1-51.0 MEAN CORPUSCULAR VOLUME (BEAKER) (test uxeb=287) 103.8 fL 79.0-92.2 MEAN CORPUSCULAR HEMOGLOBIN (BEAKER) (test 32.7 pg 25.7-32.2 wtlg=347) MEAN CORPUSCULAR HEMOGLOBIN CONC (BEAKER) (test 31.5 GM/DL 32.3-36.5 nsqg=327) RED CELL DISTRIBUTION WIDTH (BEAKER) (test 14.3 % 11.6-14.4 wbgz=834) PLATELET COUNT (BEAKER) (test wsxv=557) 156 K/CU MM 150-450 MEAN PLATELET VOLUME (BEAKER) (test yfdc=095) 11.0 fL 9.4-12.4 NUCLEATED RED BLOOD CELLS (BEAKER) (test 0 /100 WBC 0-0 fbrl=493) NEUTROPHILS RELATIVE PERCENT (BEAKER) (test 77 % mtkm=135) LYMPHOCYTES RELATIVE PERCENT (BEAKER) (test 8 % yztt=374) MONOCYTES RELATIVE PERCENT (BEAKER) (test 9 % xcwh=382) EOSINOPHILS RELATIVE PERCENT (BEAKER) (test 5 % diyh=102) BASOPHILS RELATIVE PERCENT (BEAKER) (test 1 % niuf=342) NEUTROPHILS ABSOLUTE COUNT (BEAKER) (test 5.98 K/ L 1.78-5.38 gyps=325) LYMPHOCYTES ABSOLUTE COUNT (BEAKER) (test 0.62 K/ L 1.32-3.57 osdt=742) MONOCYTES ABSOLUTE COUNT (BEAKER) (test 0.72 K/ L 0.30-0.82 laru=719) EOSINOPHILS ABSOLUTE COUNT (BEAKER) (test 0.35 K/ L 0.04-0.54 muou=935) BASOPHILS ABSOLUTE COUNT (BEAKER) (test 0.05 K/ L 0.01-0.08 llyz=130) IMMATURE GRANULOCYTES-RELATIVE PERCENT (BEAKER) 1 % 0-1 (test zakl=1671) TROPONIN [id number] 23:54:00 Test Item Value Reference Range Comments TROPONIN I (BEAKER) (test sjrc=877) 0.06 ng/mL 0.00-0.03 Troponin I (TnI) levels [...] acidosis, acute neurological disease, and persistent tachyarrhythmia.POCT-GLUCOSE [id number] 21:10:00 Test Item Value Reference Range Comments POC-GLUCOSE METER (BEAKER) 118 mg/dL 70-110 TESTED AT [place] [id number] [facility] (test vgoa=6401) [facility] [id number] TROPONIN [id number] 19:00:00 Test Item Value Reference Range Comments TROPONIN I (BEAKER) (test jisb=711) 0.05 ng/mL 0.00-0.03 Troponin I (TnI) levels [...] acidosis, acute neurological disease, and persistent tachyarrhythmia.POCT-GLUCOSE [id number] 18:30:00 Test Item Value Reference Range Comments POC-GLUCOSE METER (BEAKER) 134 mg/dL 70-110 TESTED AT [facility] [address] (test kesm=2210) [facility] [id number] TROPONIN [id number] 17:24:00 Test Item Value Reference Range Comments TROPONIN I (BEAKER) (test wqip=576) 0.06 ng/mL 0.00-0.03 Troponin I (TnI) levels [...] acute neurological disease, and persistent tachyarrhythmia.BASIC METABOLIC [id number] 17:17:00 Test Item Value Reference Range Comments SODIUM (BEAKER) (test 132 meq/L 136-145 wtfc=771) POTASSIUM (BEAKER) (test 4.3 meq/L 3.5-5.1 vgea=450) CHLORIDE (BEAKER) (test 98 meq/L 98-107 ndjj=221) CO2 (BEAKER) (test 24 meq/L 22-29 cniz=714) BLOOD UREA NITROGEN 31 mg/dL 7-21 (BEAKER) (test spgb=037) CREATININE (BEAKER) (test 5.30 mg/dL 0.57-1.25 vzfh=496) GLUCOSE RANDOM (BEAKER) 142 mg/dL 70-105 (test wcfm=494) CALCIUM (BEAKER) (test 9.1 mg/dL 8.4-10.2 uknm=807) EGFR (BEAKER) (test 11 mL/min/1.73 sq m ESTIMATED GFR IS NOT uawr=8809) ACCURATE CREATININE CLEARANCE IN PREDICTING GLOMERULAR FILTRATION RATE. ESTIMATED GFR IS NOT APPLICABLE FOR DIALYSIS PATIENTS. [id number] 17:16:00 Test Item Value Reference Range Comments PHOSPHORUS (BEAKER) (test bhbq=386) 2.5 mg/dL 2.3-4.7 [id number] 17:16:00 Test Item Value Reference Range Comments MAGNESIUM (BEAKER) (test xfoc=547) 1.8 mg/dL 1.6-2.6 BASIC METABOLIC [id number] 13:14:00 Test Item Value Reference Range Comments SODIUM (BEAKER) (test 132 meq/L 136-145 ovao=827) POTASSIUM (BEAKER) (test 4.2 meq/L 3.5-5.1 nadr=486) CHLORIDE (BEAKER) (test 99 meq/L 98-107 osqz=466) CO2 (BEAKER) (test 26 meq/L 22-29 mize=042) BLOOD UREA NITROGEN 29 mg/dL 7-21 (BEAKER) (test gyxd=762) CREATININE (BEAKER) (test 4.83 mg/dL 0.57-1.25 npdt=106) GLUCOSE RANDOM (BEAKER) 124 mg/dL 70-105 (test hddq=326) CALCIUM (BEAKER) (test 8.7 mg/dL 8.4-10.2 qwoq=271) EGFR (BEAKER) (test 12 mL/min/1.73 sq m ESTIMATED GFR IS NOT kihm=0446) ACCURATE CREATININE CLEARANCE IN PREDICTING GLOMERULAR FILTRATION RATE. ESTIMATED GFR IS NOT APPLICABLE FOR DIALYSIS PATIENTS. CBC W/PLT COUNT & AUTO [id number] 12:49:00 Test Item Value Reference Range Comments WHITE BLOOD CELL COUNT (BEAKER) (test nmmt=325) 10.7 K/ L 3.5-10.5 RED BLOOD CELL COUNT (BEAKER) (test zfpp=707) 2.74 M/ L 4.63-6.08 HEMOGLOBIN (BEAKER) (test imcb=957) 9.3 GM/DL 13.7-17.5 HEMATOCRIT (BEAKER) (test ddlm=387) 28.4 % 40.1-51.0 MEAN CORPUSCULAR VOLUME (BEAKER) (test vnjt=012) 103.6 fL 79.0-92.2 MEAN CORPUSCULAR HEMOGLOBIN (BEAKER) (test 33.9 pg 25.7-32.2 zlpn=232) MEAN CORPUSCULAR HEMOGLOBIN CONC (BEAKER) (test 32.7 GM/DL 32.3-36.5 fqxh=091) RED CELL DISTRIBUTION WIDTH (BEAKER) (test 14.0 % 11.6-14.4 ytnk=995) PLATELET COUNT (BEAKER) (test gdjd=949) 163 K/CU MM 150-450 MEAN PLATELET VOLUME (BEAKER) (test qtdx=447) 10.9 fL 9.4-12.4 NUCLEATED RED BLOOD CELLS (BEAKER) (test 0 /100 WBC 0-0 emjx=264) NEUTROPHILS RELATIVE PERCENT (BEAKER) (test 81 % ylbk=674) LYMPHOCYTES RELATIVE PERCENT (BEAKER) (test 9 % suzz=899) MONOCYTES RELATIVE PERCENT (BEAKER) (test 1 % riiq=127) EOSINOPHILS RELATIVE PERCENT (BEAKER) (test 5 % xlmb=383) BASOPHILS RELATIVE PERCENT (BEAKER) (test 0 % smvp=689) NEUTROPHILS ABSOLUTE COUNT (BEAKER) (test 8.71 K/ L 1.78-5.38 vmle=588) LYMPHOCYTES ABSOLUTE COUNT (BEAKER) (test 0.94 K/ L 1.32-3.57 kzwq=774) MONOCYTES ABSOLUTE COUNT (BEAKER) (test 0.13 K/ L 0.30-0.82 nsiu=518) EOSINOPHILS ABSOLUTE COUNT (BEAKER) (test 0.53 K/ L 0.04-0.54 pgwc=719) BASOPHILS ABSOLUTE COUNT (BEAKER) (test 0.04 K/ L 0.01-0.08 bqbv=958) IMMATURE GRANULOCYTES-RELATIVE PERCENT (BEAKER) 4 % 0-1 (test aebm=2639) BLOOD GAS, [id number] 11:37:00 Test Item Value Reference Range Comments PH ARTERIAL (BEAKER) (test jwhv=682) 7.43 7.35-7.45 PCO2 ARTERIAL (BEAKER) (test ghiy=639) 41 mmHg 35-45 PO2 ARTERIAL (BEAKER) (test lsrq=323) 297 mmHg 80-90 O2 SATURATION ARTERIAL (BEAKER) (test onsx=906) 99.7 % 96.0-97.0 HCO3 ARTERIAL (BEAKER) (test wcny=636) 27 mmol/L 21-29 BASE EXCESS ARTERIAL (BEAKER) (test ciuj=343) 2.0 mmol/L -2.0-3.0 PATIENT TEMPERATURE (BEAKER) (test wvpf=3211) 35.1 C FIO2 (BEAKER) (test gzds=5137) 100.0 % GLUCOSE-STAT [id number] 11:37:00 Test Item Value Reference Range Comments GLUCOSE RANDOM (BEAKER) (test tevn=508) 112 mg/dL 70-110 SODIUM NA-STAT [id number] 11:37:00 Test Item Value Reference Range Comments SODIUM (BEAKER) (test idug=777) 130 meq/L 135-148 HGB/HCT (H&H) - STAT [id number] 11:37:00 Test Item Value Reference Range Comments HEMOGLOBIN (BEAKER) (test ahzh=197) 9.9 g/dL 13.0-16.8 HEMATOCRIT (BEAKER) (test apgj=298) 29.0 % 40.0-50.0 [id number] 11:35:00 Test Item Value Reference Range Comments ACTIVATED CLOTTING TIME 142 sec TESTED AT [place] [address] [place] (BEAKER) (test npbd=313) [place] [address] POTASSIUM-STAT [id number] 11:35:00 Test Item Value Reference Range Comments POTASSIUM (BEAKER) (test elcy=255) 4.0 meq/L 3.6-5.5 [id number] 11:35:00 Test Item Value Reference Range Comments ACTIVATED CLOTTING TIME 224 sec TESTED AT [place] [address] [place] (BEAKER) (test fscb=544) [place] [address] [id number] 11:35:00 Test Item Value Reference Range Comments ACTIVATED CLOTTING TIME 241 sec TESTED AT [place] [address] [place] (BEAKER) (test xczx=809) [place] [address] POCT-GLUCOSE [id number] 06:01:00 Test Item Value Reference Range Comments POC-GLUCOSE METER (BEAKER) 119 mg/dL 70-110 TESTED AT [address] (test owgg=4775) [place] [address] BASIC METABOLIC [id number] 03:31:00 Test Item Value Reference Range Comments SODIUM (BEAKER) (test 133 meq/L 136-145 mooe=246) POTASSIUM (BEAKER) (test 4.2 meq/L 3.5-5.1 bapr=611) CHLORIDE (BEAKER) (test 96 meq/L 98-107 uxse=045) CO2 (BEAKER) (test 29 meq/L 22-29 istm=414) BLOOD UREA NITROGEN 28 mg/dL 7-21 (BEAKER) (test mdhm=600) CREATININE (BEAKER) (test 4.83 mg/dL 0.57-1.25 mnmx=559) GLUCOSE RANDOM (BEAKER) 128 mg/dL 70-105 (test hutn=229) CALCIUM (BEAKER) (test 8.8 mg/dL 8.4-10.2 hupy=923) EGFR (BEAKER) (test 12 mL/min/1.73 sq m ESTIMATED GFR IS NOT pqkm=8006) ACCURATE CREATININE CLEARANCE IN PREDICTING GLOMERULAR FILTRATION RATE. ESTIMATED GFR IS NOT APPLICABLE FOR DIALYSIS PATIENTS. BASIC METABOLIC [id number] 03:31:00 Test Item Value Reference Range Comments SODIUM (BEAKER) (test 133 meq/L 136-145 jhly=697) POTASSIUM (BEAKER) (test 4.2 meq/L 3.5-5.1 iigp=158) CHLORIDE (BEAKER) (test 96 meq/L 98-107 hjwq=145) CO2 (BEAKER) (test 29 meq/L 22-29 xnqo=687) BLOOD UREA NITROGEN 28 mg/dL 7-21 (BEAKER) (test vhtx=797) CREATININE (BEAKER) (test 4.84 mg/dL 0.57-1.25 yosd=615) GLUCOSE RANDOM (BEAKER) 128 mg/dL 70-105 (test ldqe=907) CALCIUM (BEAKER) (test 8.9 mg/dL 8.4-10.2 nkfs=093) EGFR (BEAKER) (test 12 mL/min/1.73 sq m ESTIMATED GFR IS NOT ytye=7416) ACCURATE CREATININE CLEARANCE IN PREDICTING GLOMERULAR FILTRATION RATE. ESTIMATED GFR IS NOT APPLICABLE FOR DIALYSIS PATIENTS. [id number] 03:25:00 Test Item Value Reference Range Comments PHOSPHORUS (BEAKER) (test meux=520) 2.4 mg/dL 2.3-4.7 [id number] 03:25:00 Test Item Value Reference Range Comments MAGNESIUM (BEAKER) (test wusx=810) 1.9 mg/dL 1.6-2.6 CALCIUM, [id number] 03:22:00 Test Item Value Reference Range Comments CALCIUM IONIZED (BEAKER) (test jlfu=630) 1.07 mmol/L 1.12-1.27 PH, BLOOD (BEAKER) (test mghr=4288) 7.43 PROTHROMBIN [id number] 03:22:00 Test Item Value Reference Range Comments PROTIME (BEAKER) (test rvxi=505) 14.9 seconds 11.7-14.7 INR (BEAKER) (test sqmt=140) 1.2 <=5.9 RECOMMENDED COUMADIN/WARFARIN INR THERAPY RANGESSTANDARD DOSE: 2.0 - 3.0 Includes: PROPHYLAXIS forvenous thrombosis, systemic embolization; TREATMENT for venous thrombosis and/or pulmonary embolus.HIGH RISK: Target INR is 2.5-3.5 for patients with mechanical heart valves.CBC W/PLT COUNT & AUTO [id number] 03:07:00 Test Item Value Reference Range Comments WHITE BLOOD CELL COUNT (BEAKER) (test cpsc=860) 8.2 K/ L 3.5-10.5 RED BLOOD CELL COUNT (BEAKER) (test patx=695) 2.65 M/ L 4.63-6.08 HEMOGLOBIN (BEAKER) (test jhot=813) 8.8 GM/DL 13.7-17.5 HEMATOCRIT (BEAKER) (test kxgv=737) 27.2 % 40.1-51.0 MEAN CORPUSCULAR VOLUME (BEAKER) (test syrf=653) 102.6 fL 79.0-92.2 MEAN CORPUSCULAR HEMOGLOBIN (BEAKER) (test 33.2 pg 25.7-32.2 fyoy=882) MEAN CORPUSCULAR HEMOGLOBIN CONC (BEAKER) (test 32.4 GM/DL 32.3-36.5 vjju=536) RED CELL DISTRIBUTION WIDTH (BEAKER) (test 13.6 % 11.6-14.4 lolz=845) PLATELET COUNT (BEAKER) (test ccnp=505) 173 K/CU MM 150-450 MEAN PLATELET VOLUME (BEAKER) (test udlh=158) 11.1 fL 9.4-12.4 NUCLEATED RED BLOOD CELLS (BEAKER) (test 0 /100 WBC 0-0 skhe=063) NEUTROPHILS RELATIVE PERCENT (BEAKER) (test 68 % spwu=455) LYMPHOCYTES RELATIVE PERCENT (BEAKER) (test 15 % pzid=573) MONOCYTES RELATIVE PERCENT (BEAKER) (test 9 % lklp=174) EOSINOPHILS RELATIVE PERCENT (BEAKER) (test 7 % ggat=177) BASOPHILS RELATIVE PERCENT (BEAKER) (test 1 % bamw=852) NEUTROPHILS ABSOLUTE COUNT (BEAKER) (test 5.57 K/ L 1.78-5.38 zmrh=217) LYMPHOCYTES ABSOLUTE COUNT (BEAKER) (test 1.24 K/ L 1.32-3.57 phmz=088) MONOCYTES ABSOLUTE COUNT (BEAKER) (test 0.70 K/ L 0.30-0.82 umhs=707) EOSINOPHILS ABSOLUTE COUNT (BEAKER) (test 0.61 K/ L 0.04-0.54 giug=686) BASOPHILS ABSOLUTE COUNT (BEAKER) (test 0.05 K/ L 0.01-0.08 kxch=635) IMMATURE GRANULOCYTES-RELATIVE PERCENT (BEAKER) 1 % 0-1 (test narm=7544) CBC W/PLT COUNT & AUTO [id number] 03:05:00 Test Item Value Reference Range Comments WHITE BLOOD CELL COUNT (BEAKER) (test zgwa=749) 8.3 K/ L 3.5-10.5 RED BLOOD CELL COUNT (BEAKER) (test auyj=345) 2.71 M/ L 4.63-6.08 HEMOGLOBIN (BEAKER) (test mzqy=817) 8.9 GM/DL 13.7-17.5 HEMATOCRIT (BEAKER) (test oykz=580) 27.9 % 40.1-51.0 MEAN CORPUSCULAR VOLUME (BEAKER) (test euva=437) 103.0 fL 79.0-92.2 MEAN CORPUSCULAR HEMOGLOBIN (BEAKER) (test 32.8 pg 25.7-32.2 fyaz=453) MEAN CORPUSCULAR HEMOGLOBIN CONC (BEAKER) (test 31.9 GM/DL 32.3-36.5 wmia=269) RED CELL DISTRIBUTION WIDTH (BEAKER) (test 13.9 % 11.6-14.4 jtka=085) PLATELET COUNT (BEAKER) (test uayl=216) 170 K/CU MM 150-450 MEAN PLATELET VOLUME (BEAKER) (test smwm=199) 11.1 fL 9.4-12.4 NUCLEATED RED BLOOD CELLS (BEAKER) (test 0 /100 WBC 0-0 emve=532) NEUTROPHILS RELATIVE PERCENT (BEAKER) (test 67 % zvtb=245) LYMPHOCYTES RELATIVE PERCENT (BEAKER) (test 15 % aycy=213) MONOCYTES RELATIVE PERCENT (BEAKER) (test 9 % pgja=118) EOSINOPHILS RELATIVE PERCENT (BEAKER) (test 8 % dciy=197) BASOPHILS RELATIVE PERCENT (BEAKER) (test 1 % wbwb=904) NEUTROPHILS ABSOLUTE COUNT (BEAKER) (test 5.61 K/ L 1.78-5.38 cpju=133) LYMPHOCYTES ABSOLUTE COUNT (BEAKER) (test 1.22 K/ L 1.32-3.57 hvsf=733) MONOCYTES ABSOLUTE COUNT (BEAKER) (test 0.75 K/ L 0.30-0.82 dtbg=734) EOSINOPHILS ABSOLUTE COUNT (BEAKER) (test 0.64 K/ L 0.04-0.54 btop=119) BASOPHILS ABSOLUTE COUNT (BEAKER) (test 0.06 K/ L 0.01-0.08 dmln=431) IMMATURE GRANULOCYTES-RELATIVE PERCENT (BEAKER) 1 % 0-1 (test qfhs=6658) POCT-GLUCOSE [id number] 02:55:00 Test Item Value Reference Range Comments POC-GLUCOSE METER (BEAKER) 187 mg/dL 70-110 TESTED AT [address] (test vump=6299) [place] [address] POCT-GLUCOSE [id number] 17:24:00 Test Item Value Reference Range Comments POC-GLUCOSE METER (BEAKER) 153 mg/dL 70-110 TESTED AT [address] (test fwro=3854) [place] [id number] POCT-GLUCOSE [id number] 13:20:00 Test Item Value Reference Range Comments POC-GLUCOSE METER (BEAKER) 213 mg/dL 70-110 TESTED AT [address] (test heud=9876) [place] [address] POCT-GLUCOSE [id number] 11:32:00 Test Item Value Reference Range Comments POC-GLUCOSE METER (BEAKER) 141 mg/dL 70-110 TESTED AT [address] (test jwqf=4729) [place] [id number] BASIC METABOLIC [id number] 08:25:00 Test Item Value Reference Range Comments SODIUM (BEAKER) (test 137 meq/L 136-145 ybtz=267) POTASSIUM (BEAKER) (test 3.9 meq/L 3.5-5.1 enbn=141) CHLORIDE (BEAKER) (test 99 meq/L 98-107 vqwu=708) CO2 (BEAKER) (test 30 meq/L 22-29 uwgz=775) BLOOD UREA NITROGEN 19 mg/dL 7-21 (BEAKER) (test auxz=387) CREATININE (BEAKER) (test 3.56 mg/dL 0.57-1.25 kumm=033) GLUCOSE RANDOM (BEAKER) 119 mg/dL 70-105 (test jaom=093) CALCIUM (BEAKER) (test 8.7 mg/dL 8.4-10.2 pudm=702) EGFR (BEAKER) (test 17 mL/min/1.73 sq m ESTIMATED GFR IS NOT nwpx=3990) ACCURATE CREATININE CLEARANCE IN PREDICTING GLOMERULAR FILTRATION RATE. ESTIMATED GFR IS NOT APPLICABLE FOR DIALYSIS PATIENTS. POCT-GLUCOSE [id number] 21:40:00 Test Item Value Reference Range Comments POC-GLUCOSE METER (BEAKER) 190 mg/dL 70-110 TESTED AT [address] (test osoq=7202) [place] [address] POCT-GLUCOSE [id number] 18:26:00 Test Item Value Reference Range Comments POC-GLUCOSE METER (BEAKER) 178 mg/dL 70-110 TESTED AT [address] (test cmpv=6132) [place] [address] POCT-GLUCOSE [id number] 12:54:00 Test Item Value Reference Range Comments POC-GLUCOSE METER (BEAKER) 159 mg/dL 70-110 TESTED AT [address] (test relu=9460) [place] [id number] BASIC METABOLIC [id number] 05:56:00 Test Item Value Reference Range Comments SODIUM (BEAKER) (test 136 meq/L 136-145 vqkl=491) POTASSIUM (BEAKER) (test 4.3 meq/L 3.5-5.1 kwyt=779) CHLORIDE (BEAKER) (test 100 meq/L 98-107 lhhx=158) CO2 (BEAKER) (test 28 meq/L 22-29 xood=521) BLOOD UREA NITROGEN 37 mg/dL 7-21 (BEAKER) (test tcje=800) CREATININE (BEAKER) (test 5.04 mg/dL 0.57-1.25 idcw=521) GLUCOSE RANDOM (BEAKER) 113 mg/dL 70-105 (test znge=700) CALCIUM (BEAKER) (test 8.8 mg/dL 8.4-10.2 kfou=070) EGFR (BEAKER) (test 11 mL/min/1.73 sq m ESTIMATED GFR IS NOT ivtk=0729) ACCURATE CREATININE CLEARANCE IN PREDICTING GLOMERULAR FILTRATION RATE. ESTIMATED GFR IS NOT APPLICABLE FOR DIALYSIS PATIENTS. [id number] 05:37:00 Test Item Value Reference Range Comments MAGNESIUM (BEAKER) (test mvkw=917) 2.1 mg/dL 1.6-2.6 POCT-GLUCOSE [id number] 21:49:00 Test Item Value Reference Range Comments POC-GLUCOSE METER (BEAKER) 194 mg/dL 70-110 TESTED AT [address] (test mcgu=9121) [place] [id number] POCT-GLUCOSE [id number] 18:02:00 Test Item Value Reference Range Comments POC-GLUCOSE METER (BEAKER) 195 mg/dL 70-110 TESTED AT [address] (test mfiv=7440) [place] [address] POCT-GLUCOSE [id number] 12:09:00 Test Item Value Reference Range Comments POC-GLUCOSE METER (BEAKER) 217 mg/dL 70-110 TESTED AT [address] (test ukwy=0829) [place] [id number] POCT-GLUCOSE [id number] 10:36:00 Test Item Value Reference Range Comments POC-GLUCOSE METER (BEAKER) 121 mg/dL 70-110 TESTED AT [address] (test dmzr=0413) [place] [address] POCT-GLUCOSE [id number] 10:36:00 Test Item Value Reference Range Comments POC-GLUCOSE METER (BEAKER) 100 mg/dL 70-110 TESTED AT [address] (test qvvy=7575) [place] [address] POCT-GLUCOSE [id number] 08:27:00 Test Item Value Reference Range Comments POC-GLUCOSE METER (BEAKER) 112 mg/dL 70-110 TESTED AT [address] (test laok=7988) [place] [id number] BASIC METABOLIC [id number] 06:18:00 Test Item Value Reference Range Comments SODIUM (BEAKER) (test 139 meq/L 136-145 fcsb=853) POTASSIUM (BEAKER) (test 4.1 meq/L 3.5-5.1 cxxn=192) CHLORIDE (BEAKER) (test 104 meq/L 98-107 vudi=143) CO2 (BEAKER) (test 29 meq/L 22-29 yycj=517) BLOOD UREA NITROGEN 26 mg/dL 7-21 (BEAKER) (test rhys=092) CREATININE (BEAKER) (test 3.93 mg/dL 0.57-1.25 zyju=446) GLUCOSE RANDOM (BEAKER) 104 mg/dL 70-105 (test twym=408) CALCIUM (BEAKER) (test 8.5 mg/dL 8.4-10.2 qlhh=304) EGFR (BEAKER) (test 15 mL/min/1.73 sq m ESTIMATED GFR IS NOT rcvo=5121) ACCURATE CREATININE CLEARANCE IN PREDICTING GLOMERULAR FILTRATION RATE. ESTIMATED GFR IS NOT APPLICABLE FOR DIALYSIS PATIENTS. [id number] 06:17:00 Test Item Value Reference Range Comments PHOSPHORUS (BEAKER) (test czby=692) 2.5 mg/dL 2.3-4.7 [id number] 06:17:00 Test Item Value Reference Range Comments MAGNESIUM (BEAKER) (test bxqv=326) 2.0 mg/dL 1.6-2.6 CBC W/PLT COUNT & AUTO [id number] 05:48:00 Test Item Value Reference Range Comments WHITE BLOOD CELL COUNT (BEAKER) (test wlkl=836) 7.0 K/ L 3.5-10.5 RED BLOOD CELL COUNT (BEAKER) (test ssak=815) 2.74 M/ L 4.63-6.08 HEMOGLOBIN (BEAKER) (test wrgy=851) 9.0 GM/DL 13.7-17.5 HEMATOCRIT (BEAKER) (test gngj=466) 27.9 % 40.1-51.0 MEAN CORPUSCULAR VOLUME (BEAKER) (test aqjl=543) 101.8 fL 79.0-92.2 MEAN CORPUSCULAR HEMOGLOBIN (BEAKER) (test 32.8 pg 25.7-32.2 iwwz=309) MEAN CORPUSCULAR HEMOGLOBIN CONC (BEAKER) (test 32.3 GM/DL 32.3-36.5 hycq=045) RED CELL DISTRIBUTION WIDTH (BEAKER) (test 13.4 % 11.6-14.4 bmlo=511) PLATELET COUNT (BEAKER) (test jbla=098) 165 K/CU MM 150-450 MEAN PLATELET VOLUME (BEAKER) (test ezks=256) 11.5 fL 9.4-12.4 NUCLEATED RED BLOOD CELLS (BEAKER) (test 0 /100 WBC 0-0 nhqz=549) NEUTROPHILS RELATIVE PERCENT (BEAKER) (test 62 % lmce=635) LYMPHOCYTES RELATIVE PERCENT (BEAKER) (test 21 % vkhm=954) MONOCYTES RELATIVE PERCENT (BEAKER) (test 11 % msfn=910) EOSINOPHILS RELATIVE PERCENT (BEAKER) (test 5 % ukwb=940) BASOPHILS RELATIVE PERCENT (BEAKER) (test 1 % zjog=098) NEUTROPHILS ABSOLUTE COUNT (BEAKER) (test 4.35 K/ L 1.78-5.38 vrvc=637) LYMPHOCYTES ABSOLUTE COUNT (BEAKER) (test 1.44 K/ L 1.32-3.57 wnel=902) MONOCYTES ABSOLUTE COUNT (BEAKER) (test 0.78 K/ L 0.30-0.82 uhek=215) EOSINOPHILS ABSOLUTE COUNT (BEAKER) (test 0.35 K/ L 0.04-0.54 iyzx=012) BASOPHILS ABSOLUTE COUNT (BEAKER) (test 0.07 K/ L 0.01-0.08 wiuh=857) IMMATURE GRANULOCYTES-RELATIVE PERCENT (BEAKER) 1 % 0-1 (test chqw=6960) POCT-GLUCOSE [id number] 21:14:00 Test Item Value Reference Range Comments POC-GLUCOSE METER (BEAKER) 188 mg/dL 70-110 TESTED AT [address] (test hxba=5899) [place] [id number] POCT-GLUCOSE [id number] 17:16:00 Test Item Value Reference Range Comments POC-GLUCOSE METER (BEAKER) 199 mg/dL 70-110 TESTED AT [address] (test csoz=6891) [facility] [address] POCT-GLUCOSE [id number] 12:41:00 Test Item Value Reference Range Comments POC-GLUCOSE METER (BEAKER) 136 mg/dL 70-110 TESTED AT [address] (test lpjz=2024) [facility] [address] CALCIUM, [id number] 08:02:00 Test Item Value Reference Range Comments CALCIUM IONIZED (BEAKER) (test jdkz=437) 1.08 mmol/L 1.12-1.27 PH, BLOOD (BEAKER) (test lmpb=2503) 7.42 COMPREHENSIVE METABOLIC [id number] 07:00:00 Test Item Value Reference Range Comments TOTAL PROTEIN (BEAKER) 6.5 gm/dL 6.0-8.3 (test krcy=625) ALBUMIN (BEAKER) (test 2.4 g/dL 3.5-5.0 ckcc=5432) ALKALINE PHOSPHATASE 78 U/L 40-150 (BEAKER) (test szkd=380) BILIRUBIN TOTAL (BEAKER) 0.4 mg/dL 0.2-1.2 (test shrw=935) SODIUM (BEAKER) (test 129 meq/L 136-145 vuic=635) POTASSIUM (BEAKER) (test 4.9 meq/L 3.5-5.1 gluk=314) CHLORIDE (BEAKER) (test 93 meq/L 98-107 ykjd=201) CO2 (BEAKER) (test 26 meq/L 22-29 udxi=837) BLOOD UREA NITROGEN 50 mg/dL 7-21 (BEAKER) (test libv=592) CREATININE (BEAKER) (test 6.18 mg/dL 0.57-1.25 aqgc=318) GLUCOSE RANDOM (BEAKER) 104 mg/dL 70-105 (test nqdv=762) CALCIUM (BEAKER) (test 8.9 mg/dL 8.4-10.2 tvom=061) AST (SGOT) (BEAKER) (test 22 U/L 5-34 tmtt=738) ALT (SGPT) (BEAKER) (test < U/L 6-55 jafh=583) EGFR (BEAKER) (test 9 mL/min/1.73 sq m ESTIMATED GFR IS NOT johm=4838) ACCURATE CREATININE CLEARANCE IN PREDICTING GLOMERULAR FILTRATION RATE. ESTIMATED GFR IS NOT APPLICABLE FOR DIALYSIS PATIENTS. [id number] 06:55:00 Test Item Value Reference Range Comments PHOSPHORUS (BEAKER) (test qfui=489) 4.1 mg/dL 2.3-4.7 [id number] 06:55:00 Test Item Value Reference Range Comments MAGNESIUM (BEAKER) (test csgc=153) 2.2 mg/dL 1.6-2.6 CBC W/PLT COUNT & AUTO [id number] 06:21:00 Test Item Value Reference Range Comments WHITE BLOOD CELL COUNT (BEAKER) (test auhb=911) 7.9 K/ L 3.5-10.5 RED BLOOD CELL COUNT (BEAKER) (test junk=798) 3.13 M/ L 4.63-6.08 HEMOGLOBIN (BEAKER) (test lahs=332) 10.3 GM/DL 13.7-17.5 HEMATOCRIT (BEAKER) (test jjmm=733) 31.0 % 40.1-51.0 MEAN CORPUSCULAR VOLUME (BEAKER) (test ouqo=600) 99.0 fL 79.0-92.2 MEAN CORPUSCULAR HEMOGLOBIN (BEAKER) (test 32.9 pg 25.7-32.2 oiqw=014) MEAN CORPUSCULAR HEMOGLOBIN CONC (BEAKER) (test 33.2 GM/DL 32.3-36.5 vkxc=448) RED CELL DISTRIBUTION WIDTH (BEAKER) (test 13.2 % 11.6-14.4 urpt=405) PLATELET COUNT (BEAKER) (test lpdi=294) 181 K/CU MM 150-450 MEAN PLATELET VOLUME (BEAKER) (test liuw=064) 11.1 fL 9.4-12.4 NUCLEATED RED BLOOD CELLS (BEAKER) (test 0 /100 WBC 0-0 lhww=662) NEUTROPHILS RELATIVE PERCENT (BEAKER) (test 69 % qzpz=459) LYMPHOCYTES RELATIVE PERCENT (BEAKER) (test 15 % tuzb=060) MONOCYTES RELATIVE PERCENT (BEAKER) (test 10 % zbew=899) EOSINOPHILS RELATIVE PERCENT (BEAKER) (test 5 % udzv=593) BASOPHILS RELATIVE PERCENT (BEAKER) (test 1 % gcea=134) NEUTROPHILS ABSOLUTE COUNT (BEAKER) (test 5.39 K/ L 1.78-5.38 runc=673) LYMPHOCYTES ABSOLUTE COUNT (BEAKER) (test 1.20 K/ L 1.32-3.57 tdlw=846) MONOCYTES ABSOLUTE COUNT (BEAKER) (test 0.75 K/ L 0.30-0.82 qlku=149) EOSINOPHILS ABSOLUTE COUNT (BEAKER) (test 0.42 K/ L 0.04-0.54 afjr=394) BASOPHILS ABSOLUTE COUNT (BEAKER) (test 0.06 K/ L 0.01-0.08 zais=822) IMMATURE GRANULOCYTES-RELATIVE PERCENT (BEAKER) 1 % 0-1 (test zhqn=9874) POCT-GLUCOSE [id number] 21:04:00 Test Item Value Reference Range Comments POC-GLUCOSE METER (BEAKER) 163 mg/dL 70-110 TESTED AT [address] (test upqw=8063) [facility] [address] POCT-GLUCOSE [id number] 17:12:00 Test Item Value Reference Range Comments POC-GLUCOSE METER (BEAKER) 121 mg/dL 70-110 TESTED AT [address] (test stek=9870) [facility] [address] POCT-GLUCOSE [id number] 12:56:00 Test Item Value Reference Range Comments POC-GLUCOSE METER (BEAKER) 144 mg/dL 70-110 TESTED AT [address] (test caki=4093) [facility] [address] POCT-GLUCOSE [id number] 09:36:00 Test Item Value Reference Range Comments POC-GLUCOSE METER (BEAKER) 159 mg/dL 70-110 TESTED AT [address] (test qhfz=4436) [facility] [address] BASIC METABOLIC [id number] 08:48:00 Test Item Value Reference Range Comments SODIUM (BEAKER) (test 130 meq/L 136-145 imjy=298) POTASSIUM (BEAKER) (test 4.5 meq/L 3.5-5.1 lkoc=562) CHLORIDE (BEAKER) (test 93 meq/L 98-107 fdnr=271) CO2 (BEAKER) (test 25 meq/L 22-29 efqh=401) BLOOD UREA NITROGEN 40 mg/dL 7-21 (BEAKER) (test tqem=838) CREATININE (BEAKER) (test 5.37 mg/dL 0.57-1.25 kyxq=413) GLUCOSE RANDOM (BEAKER) 114 mg/dL 70-105 (test upaj=972) CALCIUM (BEAKER) (test 8.8 mg/dL 8.4-10.2 gztv=294) EGFR (BEAKER) (test 10 mL/min/1.73 sq m ESTIMATED GFR IS NOT ygqh=0204) ACCURATE CREATININE CLEARANCE IN PREDICTING GLOMERULAR FILTRATION RATE. ESTIMATED GFR IS NOT APPLICABLE FOR DIALYSIS PATIENTS. [id number] 08:45:00 Test Item Value Reference Range Comments PHOSPHORUS (BEAKER) (test eoml=882) 3.8 mg/dL 2.3-4.7 [id number] 08:45:00 Test Item Value Reference Range Comments MAGNESIUM (BEAKER) (test bpyf=955) 1.9 mg/dL 1.6-2.6 CBC W/PLT COUNT & AUTO [id number] 05:35:00 Test Item Value Reference Range Comments WHITE BLOOD CELL COUNT (BEAKER) (test mtlc=172) 7.5 K/ L 3.5-10.5 RED BLOOD CELL COUNT (BEAKER) (test faac=057) 3.03 M/ L 4.63-6.08 HEMOGLOBIN (BEAKER) (test ngkd=038) 10.1 GM/DL 13.7-17.5 HEMATOCRIT (BEAKER) (test nksg=200) 30.2 % 40.1-51.0 MEAN CORPUSCULAR VOLUME (BEAKER) (test enew=425) 99.7 fL 79.0-92.2 MEAN CORPUSCULAR HEMOGLOBIN (BEAKER) (test 33.3 pg 25.7-32.2 btso=632) MEAN CORPUSCULAR HEMOGLOBIN CONC (BEAKER) (test 33.4 GM/DL 32.3-36.5 pmvj=738) RED CELL DISTRIBUTION WIDTH (BEAKER) (test 13.1 % 11.6-14.4 lqdg=875) PLATELET COUNT (BEAKER) (test zxmu=053) 180 K/CU MM 150-450 MEAN PLATELET VOLUME (BEAKER) (test rzvl=238) 11.4 fL 9.4-12.4 NUCLEATED RED BLOOD CELLS (BEAKER) (test 0 /100 WBC 0-0 mtxs=814) NEUTROPHILS RELATIVE PERCENT (BEAKER) (test 68 % unth=782) LYMPHOCYTES RELATIVE PERCENT (BEAKER) (test 16 % hpgc=507) MONOCYTES RELATIVE PERCENT (BEAKER) (test 11 % vgzh=866) EOSINOPHILS RELATIVE PERCENT (BEAKER) (test 5 % lgjm=489) BASOPHILS RELATIVE PERCENT (BEAKER) (test 1 % skyy=990) NEUTROPHILS ABSOLUTE COUNT (BEAKER) (test 5.06 K/ L 1.78-5.38 nrrb=037) LYMPHOCYTES ABSOLUTE COUNT (BEAKER) (test 1.16 K/ L 1.32-3.57 fkym=822) MONOCYTES ABSOLUTE COUNT (BEAKER) (test 0.82 K/ L 0.30-0.82 qucl=794) EOSINOPHILS ABSOLUTE COUNT (BEAKER) (test 0.37 K/ L 0.04-0.54 azhj=440) BASOPHILS ABSOLUTE COUNT (BEAKER) (test 0.05 K/ L 0.01-0.08 gpuo=850) IMMATURE GRANULOCYTES-RELATIVE PERCENT (BEAKER) 1 % 0-1 (test rkef=9201) POCT-GLUCOSE [id number] 05:35:00 Test Item Value Reference Range Comments POC-GLUCOSE METER (BEAKER) 140 mg/dL 70-110 TESTED AT [address] (test xyrf=4506) [place] [address] POCT-GLUCOSE [id number] 21:25:00 Test Item Value Reference Range Comments POC-GLUCOSE METER (BEAKER) 154 mg/dL 70-110 TESTED AT [address] (test glrj=9860) [place] [address] POCT-GLUCOSE [id number] 17:24:00 Test Item Value Reference Range Comments POC-GLUCOSE METER (BEAKER) 167 mg/dL 70-110 TESTED AT [address] (test hsac=2703) [place] [address] POCT-GLUCOSE [id number] 14:06:00 Test Item Value Reference Range Comments POC-GLUCOSE METER (BEAKER) 179 mg/dL 70-110 TESTED AT [address] (test uqwf=3630) [place] [address] POCT-GLUCOSE [id number] 11:57:00 Test Item Value Reference Range Comments POC-GLUCOSE METER (BEAKER) 186 mg/dL 70-110 TESTED AT [address] (test frzf=9788) [place] [address] [id number] 09:09:00 Test Item Value Reference Range Comments FERRITIN (BEAKER) (test ogpc=605) 683 ng/mL 5-275 POCT-GLUCOSE [id number] 09:08:00 Test Item Value Reference Range Comments POC-GLUCOSE METER (BEAKER) 129 mg/dL 70-110 TESTED AT [address] (test amea=8603) [place] [address] POCT-GLUCOSE [id number] 08:19:00 Test Item Value Reference Range Comments POC-GLUCOSE METER (BEAKER) 70 mg/dL 70-110 TESTED AT [address] (test nkeg=0648) [place] [address] POCT-GLUCOSE [id number] 07:50:00 Test Item Value Reference Range Comments POC-GLUCOSE METER (BEAKER) 61 mg/dL 70-110 Notified TAMERA CISNEROS/TESTED AT [facility] (test otas=4233) [address] [facility] [address] IRON, TIBC, % SAT. (WITHOUT FERRITIN)[id number] 07:14:00 Test Item Value Reference Range Comments IRON (BEAKER) (test nsst=217) 51.0 ug/dL 40.0-160.0 TOTAL IRON BINDING CAPACITY (BEAKER) (test 149 ug/dL 250-450 egoj=931) IRON % SATURATION (2) (BEAKER) (test ljdg=7651) 34 % 20-55 BASIC METABOLIC [id number] 06:20:00 Test Item Value Reference Range Comments SODIUM (BEAKER) (test 134 meq/L 136-145 qihn=552) POTASSIUM (BEAKER) (test 4.1 meq/L 3.5-5.1 luni=821) CHLORIDE (BEAKER) (test 97 meq/L 98-107 fffb=680) CO2 (BEAKER) (test 27 meq/L 22-29 ojwj=400) BLOOD UREA NITROGEN 26 mg/dL 7-21 (BEAKER) (test lxbh=278) CREATININE (BEAKER) (test 3.93 mg/dL 0.57-1.25 fopx=203) GLUCOSE RANDOM (BEAKER) 66 mg/dL 70-105 (test ohri=351) CALCIUM (BEAKER) (test 8.7 mg/dL 8.4-10.2 ikhd=304) EGFR (BEAKER) (test 15 mL/min/1.73 sq m ESTIMATED GFR IS NOT nawy=2348) ACCURATE CREATININE CLEARANCE IN PREDICTING GLOMERULAR FILTRATION RATE. ESTIMATED GFR IS NOT APPLICABLE FOR DIALYSIS PATIENTS. [id number] 06:15:00 Test Item Value Reference Range Comments PHOSPHORUS (BEAKER) (test hwst=602) 3.3 mg/dL 2.3-4.7 [id number] 06:15:00 Test Item Value Reference Range Comments MAGNESIUM (BEAKER) (test cith=749) 1.9 mg/dL 1.6-2.6 RETICULOCYTE [id number] 05:23:00 Test Item Value Reference Range Comments RETICULOCYTE COUNT PCT (BEAKER) (test vztw=457) 2.0 % 0.5-1.8 CBC W/PLT COUNT & AUTO [id number] 05:23:00 Test Item Value Reference Range Comments WHITE BLOOD CELL COUNT (BEAKER) (test ihjp=009) 7.9 K/ L 3.5-10.5 RED BLOOD CELL COUNT (BEAKER) (test myxa=836) 3.01 M/ L 4.63-6.08 HEMOGLOBIN (BEAKER) (test zsqy=287) 10.2 GM/DL 13.7-17.5 HEMATOCRIT (BEAKER) (test whww=660) 30.3 % 40.1-51.0 MEAN CORPUSCULAR VOLUME (BEAKER) (test jfhc=563) 100.7 fL 79.0-92.2 MEAN CORPUSCULAR HEMOGLOBIN (BEAKER) (test 33.9 pg 25.7-32.2 drre=436) MEAN CORPUSCULAR HEMOGLOBIN CONC (BEAKER) (test 33.7 GM/DL 32.3-36.5 yngd=538) RED CELL DISTRIBUTION WIDTH (BEAKER) (test 13.4 % 11.6-14.4 vkex=035) PLATELET COUNT (BEAKER) (test sjdu=844) 184 K/CU MM 150-450 MEAN PLATELET VOLUME (BEAKER) (test zfue=447) 11.2 fL 9.4-12.4 NUCLEATED RED BLOOD CELLS (BEAKER) (test 0 /100 WBC 0-0 fleu=247) NEUTROPHILS RELATIVE PERCENT (BEAKER) (test 67 % fjqo=665) LYMPHOCYTES RELATIVE PERCENT (BEAKER) (test 16 % ygyc=098) MONOCYTES RELATIVE PERCENT (BEAKER) (test 12 % pfah=434) EOSINOPHILS RELATIVE PERCENT (BEAKER) (test 4 % niip=071) BASOPHILS RELATIVE PERCENT (BEAKER) (test 1 % etzp=470) NEUTROPHILS ABSOLUTE COUNT (BEAKER) (test 5.28 K/ L 1.78-5.38 dwrn=968) LYMPHOCYTES ABSOLUTE COUNT (BEAKER) (test 1.27 K/ L 1.32-3.57 rsiz=514) MONOCYTES ABSOLUTE COUNT (BEAKER) (test 0.98 K/ L 0.30-0.82 twwc=073) EOSINOPHILS ABSOLUTE COUNT (BEAKER) (test 0.29 K/ L 0.04-0.54 ojmf=640) BASOPHILS ABSOLUTE COUNT (BEAKER) (test 0.05 K/ L 0.01-0.08 iwnh=430) IMMATURE GRANULOCYTES-RELATIVE PERCENT (BEAKER) 0 % 0-1 (test aihh=1108) POCT-GLUCOSE [id number] 21:10:00 Test Item Value Reference Range Comments POC-GLUCOSE METER (BEAKER) 142 mg/dL 70-110 TESTED AT [address] (test baib=7326) [facility] [address] POCT-GLUCOSE [id number] 17:40:00 Test Item Value Reference Range Comments POC-GLUCOSE METER (BEAKER) 162 mg/dL 70-110 TESTED AT [address] (test etlm=1874) [place] [id number] POCT-GLUCOSE [id number] 12:21:00 Test Item Value Reference Range Comments POC-GLUCOSE METER (BEAKER) 137 mg/dL 70-110 TESTED AT [address] (test izio=8789) [facility] [address] COMPREHENSIVE METABOLIC [id number] 06:38:00 Test Item Value Reference Range Comments TOTAL PROTEIN (BEAKER) 6.2 gm/dL 6.0-8.3 (test flpt=983) ALBUMIN (BEAKER) (test 2.3 g/dL 3.5-5.0 avuw=8041) ALKALINE PHOSPHATASE 70 U/L 40-150 (BEAKER) (test xxwa=945) BILIRUBIN TOTAL (BEAKER) 0.4 mg/dL 0.2-1.2 (test qbbu=490) SODIUM (BEAKER) (test 133 meq/L 136-145 fpwb=224) POTASSIUM (BEAKER) (test 4.6 meq/L 3.5-5.1 gnul=387) CHLORIDE (BEAKER) (test 98 meq/L 98-107 tqxu=503) CO2 (BEAKER) (test 25 meq/L 22-29 wqvp=250) BLOOD UREA NITROGEN 46 mg/dL 7-21 (BEAKER) (test sxfu=895) CREATININE (BEAKER) (test 6.64 mg/dL 0.57-1.25 ukem=400) GLUCOSE RANDOM (BEAKER) 51 mg/dL 70-105 (test evnw=977) CALCIUM (BEAKER) (test 8.6 mg/dL 8.4-10.2 pbfd=419) AST (SGOT) (BEAKER) (test 21 U/L 5-34 kfku=791) ALT (SGPT) (BEAKER) (test < U/L 6-55 oqwh=308) EGFR (BEAKER) (test 8 mL/min/1.73 sq m ESTIMATED GFR IS NOT raxw=6220) ACCURATE CREATININE CLEARANCE IN PREDICTING GLOMERULAR FILTRATION RATE. ESTIMATED GFR IS NOT APPLICABLE FOR DIALYSIS PATIENTS. [id number] 06:34:00 Test Item Value Reference Range Comments PHOSPHORUS (BEAKER) (test darz=306) 4.8 mg/dL 2.3-4.7 [id number] 06:34:00 Test Item Value Reference Range Comments MAGNESIUM (BEAKER) (test syra=857) 2.1 mg/dL 1.6-2.6 CBC W/PLT COUNT & AUTO [id number] 05:21:00 Test Item Value Reference Range Comments WHITE BLOOD CELL COUNT (BEAKER) (test iepg=382) 8.2 K/ L 3.5-10.5 RED BLOOD CELL COUNT (BEAKER) (test nqwg=068) 3.03 M/ L 4.63-6.08 HEMOGLOBIN (BEAKER) (test capz=493) 9.9 GM/DL 13.7-17.5 HEMATOCRIT (BEAKER) (test lycg=484) 30.1 % 40.1-51.0 MEAN CORPUSCULAR VOLUME (BEAKER) (test nsex=742) 99.3 fL 79.0-92.2 MEAN CORPUSCULAR HEMOGLOBIN (BEAKER) (test 32.7 pg 25.7-32.2 vmnj=184) MEAN CORPUSCULAR HEMOGLOBIN CONC (BEAKER) (test 32.9 GM/DL 32.3-36.5 wrci=964) RED CELL DISTRIBUTION WIDTH (BEAKER) (test 13.5 % 11.6-14.4 oedk=375) PLATELET COUNT (BEAKER) (test vbea=995) 192 K/CU MM 150-450 MEAN PLATELET VOLUME (BEAKER) (test qgok=893) 11.1 fL 9.4-12.4 NUCLEATED RED BLOOD CELLS (BEAKER) (test 0 /100 WBC 0-0 sqze=616) NEUTROPHILS RELATIVE PERCENT (BEAKER) (test 69 % kkku=205) LYMPHOCYTES RELATIVE PERCENT (BEAKER) (test 15 % qhnd=547) MONOCYTES RELATIVE PERCENT (BEAKER) (test 9 % xubd=268) EOSINOPHILS RELATIVE PERCENT (BEAKER) (test 5 % ouuc=952) BASOPHILS RELATIVE PERCENT (BEAKER) (test 1 % yxbb=863) NEUTROPHILS ABSOLUTE COUNT (BEAKER) (test 5.65 K/ L 1.78-5.38 vhqf=014) LYMPHOCYTES ABSOLUTE COUNT (BEAKER) (test 1.24 K/ L 1.32-3.57 yhha=324) MONOCYTES ABSOLUTE COUNT (BEAKER) (test 0.74 K/ L 0.30-0.82 odxm=947) EOSINOPHILS ABSOLUTE COUNT (BEAKER) (test 0.44 K/ L 0.04-0.54 qonz=960) BASOPHILS ABSOLUTE COUNT (BEAKER) (test 0.05 K/ L 0.01-0.08 brva=820) IMMATURE GRANULOCYTES-RELATIVE PERCENT (BEAKER) 0 % 0-1 (test tqfn=3786) POCT-GLUCOSE [id number] 21:00:00 Test Item Value Reference Range Comments POC-GLUCOSE METER (BEAKER) 103 mg/dL 70-110 TESTED AT [address] (test migd=7381) [facility] [address] RAD, CHEST, 1 VIEW, NON [id number] 19:51:00Reason for exam:->CoughShould this be performed at the bedside?->YesFINAL REPORT INDICATION: Cough COMPARISON:None. TECHNIQUE: Chest radiograph, single view, portable technique. FINDINGS / IMPRESSION: There is no discrete consolidation that wouldindicate pneumonia. Heart shadow is prominent which may be related to portable technique. No pulmonary edema or pleural effusion demonstrated. No pneumothorax. Left subclavian and axillary stent is noted. Osseous structures unremarkable. Signed: Rian Shelleyort Verified Date/Time: 08/22/2018 19:51:52 Reading Location: [facility] [id number] Consult Reading Room [id number] 19:16:00 Test Item Value Reference Range Comments PHOSPHORUS (BEAKER) (test ymtt=650) 4.4 mg/dL 2.3-4.7 Send if you can add on from earlier AM labsPOCT-GLUCOSE [id number] 17:53:00 Test Item Value Reference Range Comments POC-GLUCOSE METER (BEAKER) 134 mg/dL 70-110 TESTED AT [address] (test ltmf=2387) [place] [address] HEPATITIS B SURFACE [id number] 13:45:00 Test Item Value Reference Range Comments HEPATITIS B SURFACE ANTIGEN (2) (BEAKER) (test Nonreactive Nonreactive innf=4754) POCT-GLUCOSE [id number] 10:34:00 Test Item Value Reference Range Comments POC-GLUCOSE METER (BEAKER) 74 mg/dL 70-110 TESTED AT [address] (test prmo=7689) [place] [address] POCT-GLUCOSE [id number] 07:42:00 Test Item Value Reference Range Comments POC-GLUCOSE METER (BEAKER) 118 mg/dL 70-110 TESTED AT [address] (test fpxb=9965) [place] [id number] POCT-GLUCOSE [id number] 06:39:00 Test Item Value Reference Range Comments POC-GLUCOSE METER (BEAKER) 57 mg/dL 70-110 Notified TAMERA CISNEROS/TESTED AT [facility] (test lkrs=8722) [address] [place], [place] [id number] BASIC METABOLIC [id number] 04:55:00 Test Item Value Reference Range Comments SODIUM (BEAKER) (test 136 meq/L 136-145 bnyf=069) POTASSIUM (BEAKER) (test 4.1 meq/L 3.5-5.1 kqof=758) CHLORIDE (BEAKER) (test 98 meq/L 98-107 qejf=868) CO2 (BEAKER) (test 29 meq/L 22-29 ycxx=889) BLOOD UREA NITROGEN 33 mg/dL 7-21 (BEAKER) (test nuip=648) CREATININE (BEAKER) (test 5.15 mg/dL 0.57-1.25 wveq=577) GLUCOSE RANDOM (BEAKER) 48 mg/dL 70-105 (test qpiv=407) CALCIUM (BEAKER) (test 8.8 mg/dL 8.4-10.2 jjvf=217) EGFR (BEAKER) (test 11 mL/min/1.73 sq m ESTIMATED GFR IS NOT qngu=3086) ACCURATE CREATININE CLEARANCE IN PREDICTING GLOMERULAR FILTRATION RATE. ESTIMATED GFR IS NOT APPLICABLE FOR DIALYSIS PATIENTS. [id number] 04:52:00 Test Item Value Reference Range Comments MAGNESIUM (BEAKER) (test ssij=817) 2.1 mg/dL 1.6-2.6 [id number] 04:47:00 Test Item Value Reference Range Comments PROTIME (BEAKER) (test lems=691) 16.0 seconds 11.7-14.7 INR (BEAKER) (test ipxg=663) 1.3 <=5.9 PARTIAL THROMBOPLASTIN TIME (BEAKER) (test 51.1 seconds 22.5-36.0 zmup=879) RECOMMENDED COUMADIN/WARFARIN INR THERAPY RANGESSTANDARD DOSE: 2.0 - 3.0 Includes: PROPHYLAXIS forvenous thrombosis, systemic embolization; TREATMENT for venous thrombosis and/or pulmonary embolus.HIGH RISK: Target INR is 2.5-3.5 for patients with mechanical heart valves.CBC W/PLT COUNT & AUTO [id number] 04:36:00 Test Item Value Reference Range Comments WHITE BLOOD CELL COUNT (BEAKER) (test yyii=511) 9.1 K/ L 3.5-10.5 RED BLOOD CELL COUNT (BEAKER) (test dfsh=088) 3.12 M/ L 4.63-6.08 HEMOGLOBIN (BEAKER) (test zabe=465) 10.2 GM/DL 13.7-17.5 HEMATOCRIT (BEAKER) (test xdqv=603) 31.9 % 40.1-51.0 MEAN CORPUSCULAR VOLUME (BEAKER) (test eirc=426) 102.2 fL 79.0-92.2 MEAN CORPUSCULAR HEMOGLOBIN (BEAKER) (test 32.7 pg 25.7-32.2 fboz=067) MEAN CORPUSCULAR HEMOGLOBIN CONC (BEAKER) (test 32.0 GM/DL 32.3-36.5 spxc=322) RED CELL DISTRIBUTION WIDTH (BEAKER) (test 14.0 % 11.6-14.4 agot=381) PLATELET COUNT (BEAKER) (test xxmg=688) 194 K/CU MM 150-450 MEAN PLATELET VOLUME (BEAKER) (test xxnk=734) 11.2 fL 9.4-12.4 NUCLEATED RED BLOOD CELLS (BEAKER) (test 0 /100 WBC 0-0 sgob=855) NEUTROPHILS RELATIVE PERCENT (BEAKER) (test 73 % wmek=628) LYMPHOCYTES RELATIVE PERCENT (BEAKER) (test 11 % xujn=996) MONOCYTES RELATIVE PERCENT (BEAKER) (test 10 % lenf=704) EOSINOPHILS RELATIVE PERCENT (BEAKER) (test 5 % kjwu=819) BASOPHILS RELATIVE PERCENT (BEAKER) (test 0 % rodm=373) NEUTROPHILS ABSOLUTE COUNT (BEAKER) (test 6.63 K/ L 1.78-5.38 ziys=004) LYMPHOCYTES ABSOLUTE COUNT (BEAKER) (test 1.04 K/ L 1.32-3.57 rokb=326) MONOCYTES ABSOLUTE COUNT (BEAKER) (test 0.92 K/ L 0.30-0.82 zyxh=790) EOSINOPHILS ABSOLUTE COUNT (BEAKER) (test 0.44 K/ L 0.04-0.54 eijw=666) BASOPHILS ABSOLUTE COUNT (BEAKER) (test 0.04 K/ L 0.01-0.08 ufsa=635) IMMATURE GRANULOCYTES-RELATIVE PERCENT (BEAKER) 0 % 0-1 (test pebb=1445) ANG, THROMBECTOMY, A-V [id number] 14:11:00If unable then place tunneled dialysis catheterReason [...] catheter for an Amplatz wire. A 7 Danish sheath was placed at the access site. [...] as (Ka,r): 45 mGy Signed: Mariah Calzada Verified Date/Time: 09/18/2017 14:11:58 Reading Location: [facility] P048 Angio Body Reading Room Electronically signed by: MARIAH CALZADA M.D. on 2017 02:11 PMPOCT-GLUCOSE [id number] 13:43:00 Test Item Value Reference Range Comments POC-GLUCOSE METER (DICOM Grid) 76 mg/dL 70-110 TESTED AT [facility] [address] [facility] (test bial=2287) [facility] [address] HEMOGLOBIN [id number] 08:02:00 Test Item Value Reference Range Comments HEMOGLOBIN A1C (JobSerfAKER) (test vjql=070) 7.0 % 4.3-6.1 BASIC METABOLIC [id number] 07:34:00 Test Item Value Reference Range Comments SODIUM (BEAKER) (test 140 meq/L 136-145 hqky=366) POTASSIUM (BEAKER) (test 5.0 meq/L 3.5-5.1 houg=001) CHLORIDE (BEAKER) (test 101 meq/L 98-107 lrnw=351) CO2 (BEAKER) (test 22 meq/L 22-29 ksmx=785) BLOOD UREA NITROGEN 87 mg/dL 7-21 (BEAKER) (test dyuq=871) CREATININE (BEAKER) (test 10.99 mg/dL 0.57-1.25 ygch=597) GLUCOSE RANDOM (BEAKER) 87 mg/dL 70-105 (test qolf=200) CALCIUM (BEAKER) (test 7.8 mg/dL 8.4-10.2 vaso=982) EGFR (BEAKER) (test 5 mL/min/1.73 sq m ESTIMATED GFR IS NOT itxw=2891) ACCURATE CREATININE CLEARANCE IN PREDICTING GLOMERULAR FILTRATION RATE. ESTIMATED GFR IS NOT APPLICABLE FOR DIALYSIS PATIENTS. [id number] 07:28:00 Test Item Value Reference Range Comments PHOSPHORUS (BEAKER) (test fejw=163) 6.0 mg/dL 2.3-4.7 [id number] 07:28:00 Test Item Value Reference Range Comments MAGNESIUM (BEAKER) (test tbmo=956) 2.3 mg/dL 1.6-2.6 CALCIUM, [id number] 07:18:00 Test Item Value Reference Range Comments CALCIUM IONIZED (BEAKER) (test odcb=276) 1.00 mmol/L 1.12-1.27 PH, BLOOD (BEAKER) (test uxww=2830) 7.27 HEPATITIS B SURFACE [id number] 07:11:00 Test Item Value Reference Range Comments HEPATITIS B SURFACE ANTIGEN (2) (BEAKER) (test Nonreactive Nonreactive eypx=7795) Pls add to specimen drawn earlier.POCT-GLUCOSE [id number] 07:06:00 Test Item Value Reference Range Comments POC-GLUCOSE METER (BEAKER) 118 mg/dL 70-110 TESTED AT [facility] [address] [facility] [address] (test yqsz=5001) [facility] [address] PROTHROMBIN [id number] 06:14:00 Test Item Value Reference Range Comments PROTIME (BEAKER) (test djkc=584) 14.2 seconds 11.7-14.7 INR (BEAKER) (test rwed=125) 1.1 <=5.9 RECOMMENDED COUMADIN/WARFARIN INR THERAPY RANGESSTANDARD DOSE: 2.0 - 3.0 Includes: PROPHYLAXIS forvenous thrombosis, systemic embolization; TREATMENT for venous thrombosis and/or pulmonary embolus.HIGH RISK: Target INR is 2.5-3.5 for patients with mechanical heart valves.CBC W/PLT COUNT & AUTO [id number] 06:04:00 Test Item Value Reference Range Comments WHITE BLOOD CELL COUNT (BEAKER) (test lqbb=388) 5.7 K/ L 3.5-10.5 RED BLOOD CELL COUNT (BEAKER) (test tkoq=100) 3.78 M/ L 4.63-6.08 HEMOGLOBIN (BEAKER) (test jkhc=029) 13.0 GM/DL 13.7-17.5 HEMATOCRIT (BEAKER) (test ssvu=118) 39.4 % 40.1-51.0 MEAN CORPUSCULAR VOLUME (BEAKER) (test jtye=759) 104.2 fL 79.0-92.2 MEAN CORPUSCULAR HEMOGLOBIN (BEAKER) (test 34.4 pg 25.7-32.2 rpsw=259) MEAN CORPUSCULAR HEMOGLOBIN CONC (BEAKER) (test 33.0 GM/DL 32.3-36.5 psjz=031) RED CELL DISTRIBUTION WIDTH (BEAKER) (test 14.1 % 11.6-14.4 tbca=716) PLATELET COUNT (BEAKER) (test wetg=433) 82 K/CU MM 150-450 MEAN PLATELET VOLUME (BEAKER) (test spsw=786) 13.3 fL 9.4-12.4 NUCLEATED RED BLOOD CELLS (BEAKER) (test 0 /100 WBC 0-0 zipc=532) NEUTROPHILS RELATIVE PERCENT (BEAKER) (test 62 % ltfm=362) LYMPHOCYTES RELATIVE PERCENT (BEAKER) (test 23 % dhsb=904) MONOCYTES RELATIVE PERCENT (BEAKER) (test 11 % mnwb=941) EOSINOPHILS RELATIVE PERCENT (BEAKER) (test 4 % drbd=303) BASOPHILS RELATIVE PERCENT (BEAKER) (test 1 % qdqu=483) NEUTROPHILS ABSOLUTE COUNT (BEAKER) (test 3.53 K/ L 1.78-5.38 nvmp=973) LYMPHOCYTES ABSOLUTE COUNT (BEAKER) (test 1.30 K/ L 1.32-3.57 igre=822) MONOCYTES ABSOLUTE COUNT (BEAKER) (test agix=453) 0.62 K/ L 0.30-0.82 EOSINOPHILS ABSOLUTE COUNT (BEAKER) (test 0.22 K/ L 0.04-0.54 bdun=682) BASOPHILS ABSOLUTE COUNT (BEAKER) (test nyao=072) 0.03 K/ L 0.01-0.08 IMMATURE GRANULOCYTES-RELATIVE PERCENT (BEAKER) 1 % 0-1 (test zgjb=2105) POCT-GLUCOSE [id number] 22:23:00 Test Item Value Reference Range Comments POC-GLUCOSE METER (BEAKER) 185 mg/dL 70-110 TESTED AT [address] (test tedf=7043) [place] [address] POCT-GLUCOSE [id number] 21:27:00 Test Item Value Reference Range Comments POC-GLUCOSE METER (BEAKER) 198 mg/dL 70-110 TESTED AT [address] (test ydmj=5468) [place] [address] POCT-GLUCOSE [id number] 17:43:00 Test Item Value Reference Range Comments POC-GLUCOSE METER (BEAKER) 164 mg/dL 70-110 TESTED AT [address] (test jdhi=8038) [place] [address] HEPATITIS B SURFACE [id number] 15:14:00 Test Item Value Reference Range Comments HEPATITIS B SURFACE ANTIGEN (2) (BEAKER) (test Nonreactive Nonreactive tszu=0914) Pls add to specimen drawn earlier.BASIC METABOLIC [id number] 13:34:00 Test Item Value Reference Range Comments SODIUM (BEAKER) (test 140 meq/L 136-145 tsmn=601) POTASSIUM (BEAKER) (test 5.4 meq/L 3.5-5.1 fgwq=843) CHLORIDE (BEAKER) (test 101 meq/L 98-107 epyb=795) CO2 (BEAKER) (test 19 meq/L 22-29 vslv=968) BLOOD UREA NITROGEN 123 mg/dL 7-21 (BEAKER) (test yuqh=056) CREATININE (BEAKER) (test 12.96 mg/dL 0.57-1.25 rcmo=117) GLUCOSE RANDOM (BEAKER) 79 mg/dL 70-105 (test dfry=405) CALCIUM (BEAKER) (test 7.9 mg/dL 8.4-10.2 ieoy=305) EGFR (BEAKER) (test 4 mL/min/1.73 sq m ESTIMATED GFR IS NOT hjrq=3210) ACCURATE CREATININE CLEARANCE IN PREDICTING GLOMERULAR FILTRATION RATE. ESTIMATED GFR IS NOT APPLICABLE FOR DIALYSIS PATIENTS. [id number] 13:24:00 Test Item Value Reference Range Comments MAGNESIUM (BEAKER) (test bnms=525) 2.3 mg/dL 1.6-2.6 [id number] 13:24:00 Test Item Value Reference Range Comments PHOSPHORUS (BEAKER) (test smtg=867) 6.2 mg/dL 2.3-4.7 POCT-GLUCOSE [id number] 12:20:00 Test Item Value Reference Range Comments POC-GLUCOSE METER (BEAKER) 84 mg/dL 70-110 TESTED AT [address] (test iwml=4021) [facility] [address] ANG, NON-TUNNELED CATH >5 Y.O. [id number] 11:23:00Reason for exam:-> please declot the AV fistula, if unable to do that he needs catheter exchangeFINAL REPORT Nontunneled dialysis catheter insertion, 09/16/2017. History: Left upper extremity AV fistula thrombosed. Modality: Fluoroscopy and sonography. Sedation: None. Quality Improvement Coordinator: Edgar Chandler MD. Tar Man: None. Approach: Right internal jugular vein Estimated [...] MDReport Verified Date/Time: 2017 11:23:57 Reading Location: [place] [address] AngioBody Reading Room POCT- GLUCOSE [id number] 07:38:00 Test Item Value Reference Range Comments POC-GLUCOSE METER (BEAKER) 89 mg/dL 70-110 TESTED AT [address] (test pvcj=8075) [place] [address] PROTHROMBIN [id number] 05:19:00 Test Item Value Reference Range Comments PROTIME (BEAKER) (test ymuu=001) 14.8 seconds 11.7-14.7 INR (BEAKER) (test wbkm=789) 1.2 <=5.9 RECOMMENDED COUMADIN/WARFARIN INR THERAPY RANGESSTANDARD DOSE: 2.0 - 3.0 Includes: PROPHYLAXIS forvenous thrombosis, systemic embolization; TREATMENT for venous thrombosis and/or pulmonary embolus.HIGH RISK: Target INR is 2.5-3.5 for patients with mechanical heart valves.POCT-GLUCOSE [id number] 23:26:00 Test Item Value Reference Range Comments POC-GLUCOSE METER (BEAKER) 261 mg/dL 70-110 TESTED AT [address] (test aher=7021) [place] [address]
--- OUTSIDE RECORDS SUMMARY | 2019-02-15 12:27 | XMS REPORT ---
[...] Start Date End Date Status Dosage Pravachol [facility] [id number] 40 MG Orally Once Active 1 tablet a day Results No Known Results Summary Purpose eClinicalWorks Submission
[2019-02-15 12:53] LABS: Absolute Lymphocytes (CBC) 0.9 K/uL (0.7-4.9); Absolute Monocytes 0.4 K/uL (0.1-1.3); Absolute Neutrophil 4.4 K/uL (1.8-8.0); Basophils % 0.4 % (0-1.3); Eosinophils % 9.8 % (0-4.4); Hematocrit 39.6 % (39.6-49.0); Lymphocytes % 14.4 % (15.3-44.8); MPV 9.7 fL (7.6-11.3); Monocytes % 6.4 % (3.3-12.3); RBC Red Blood Cell Count 4.27 M/uL (4.33-5.43)
[2019-02-15 12:54] LABS: Protime INR 1.13
[2019-02-15 13:11] LABS: Albumin 2.5 g/dL (3.4-5.0); Bilirubin Direct 0.2 mg/dL (0-0.2); Bilirubin Total 0.3 mg/dL (0.2-1.0); Magnesium 2.1 mg/dL (1.8-2.4); Potassium 3.4 mmol/L (3.5-5.1); Protein, Total 7.4 g/dL (6.4-8.2); Troponin (Emerg Dept Use Only) 0.02 ng/mL (0.0-0.045)
--- NOTE | 2019-02-15 13:15 | RAD REPORT ---
EXAM DESCRIPTION: CT - Head C Spine Mpr Wo Con - 02/15/2019 12:57 pm CLINICAL HISTORY: Right arm radiculopathy. Head and neck pain COMPARISON: December 2018 TECHNIQUE: Computed axial tomography of the head and cervical spine was obtained. Sagittal and coronal reconstruction was performed. All CT scans are performed using dose optimization technique as appropriate and may include automated exposure control or mA/KV adjustment according to patient size. 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 M ild to moderate low density within periventricular, and subcortical white matter likely ischemic guevara ges secondary to small vessel disease An intracranial bleed is not seen. The ventricles are normal in caliber. An extra-axial fluid collect ion is not noted.Fluid within the visualized sinuses and mastoids is not seen. Chronic maxillary sinu sitis A cervical fracture is not visualized. No dislocation is noted. Slight anterior subluxation C3 on C4 unchanged Spondylosis involves mid and distal cervical spine IMPRESSION: No acute intracranial abnormality is seen. A cervical fracture is not visualized. Spondylosis C5-6 resulting in moderate foraminal stenosis. If the patient continues to have symptoms to suggest intracranial /spinal cord/spinal canal pathology then MRI would be recommended
--- NOTE | 2019-02-15 13:15 | RAD REPORT ---
EXAM DESCRIPTION: Anay Single View02/15/2019 12:51 pm CLINICAL HISTORY: Chest pain COMPARISON: October 2018 FINDINGS: The lungs appear clear of acute infiltrate. The heart is mildly enlarged IMPRESSION: No acute abnormalities displayed
--- NOTE | 2019-02-15 16:22 | ER ---
Nurse's Notes [facility] Name: Nadir Mendez Age: 73 yrs Sex: Male : 1945 Arrival Date: 02/15/2019 Time: 12:18 Bed 6 Private MD: Diagnosis: Radiculopathy, cervical region Presentation: 02/15 12:19 Presenting complaint: EMS states: Right upper back and right sided neck pain that hb radiates to right arm x 3 days. 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 Transition of care: patient was not received from another setting of care. Onset of symptoms was February 12, 2019. Risk Assessment: Do you want to hurt yourself or someone else? Patient reports no desire to harm self or others. Initial Sepsis Screen: Does the patient meet any 2 criteria? No. Patient's initial sepsis screen is negative. Does the patient have a suspected source of infection? No. Patient's initial sepsis screen is negative. Care prior to arrival: None. 12:19 Method Of Arrival: EMS: [facility] 12:19 Acuity: ASTER 3 hb Historical: - Allergies: 12:24 No Known Drug Allergies; hb - Home Meds: 12:24 amlodipine 2.5 mg tab 1 tab once daily [Active]; aspirin 81 mg Oral TbEC [Active]; hb aspirin 81 mg Oral TbEC 1 tab once daily [Active]; carbidopa-levodopa 25-100 mg Oral tab twice a day [Active]; ipratropium-albuterol 0.5 mg-3 mg(2.5 mg base)/3 mL Inhl nebu 3 mL 4 times per day [Active]; Lyrica 75 mg Oral 2 times per day [Active]; cilostazol 100 mg Oral tab 1 tab 2 times per day [Active]; clopidogrel 75 mg Oral tab 1 tab nightly [Active]; gabapentin 100 mg Oral cap twice a day [Active]; Lantus 100 unit/mL Sub-Q soln 20 unit daily [Active]; metoprolol tartrate 25 mg Oral tab 1 tab 2 times per day [Active]; pantoprazole 40 mg Oral TbEC 1 tab once daily [Active]; pravastatin 40 mg Oral tab 1 tab nightly [Active]; renal-jenna 0.8mg 1 tab with meals [Active]; sevelamer carbonate 800 mg Oral tab 1 tab 3 times per day [Active]; sertraline 75 mg Oral tab 1 tab once daily [Active]; zinc sulfate 220 mg Oral tab daily [Active]; - PMHx: 12:24 Alzheimers; Anemia; Depression; Diabetes - NIDDM; Dialysis; GERD; Hepatitis; hb Hyperlipidemia; Hypertension; neuropathy; Pancreatitis; Parkinson's; PVD; Renal Disease; Tues, Thurs, Sat; Ulcers; - Immunization history:: Adult Immunizations up to date. - Social history:: Smoking status: Patient/guardian denies using tobacco. - Ebola Screening: : No symptoms or risks identified at this time. Screenin:26 Abuse screen: Denies threats or abuse. Denies injuries from another. Nutritional hb screening: No deficits noted. Tuberculosis screening: No symptoms or risk factors identified. Fall Risk Total Granados Fall Scale indicates High Risk Score (45 or more points). Fall prevention measures have been instituted. Side Rails Up X 2 Frequent Obs/Assessments Occuring As available patient and family educated on Fall Prevention Program and Strategies. Assessment: 12:12 General: Appears in no apparent distress. Behavior is calm, cooperative. Pain: Pain hb currently is 5 out of 10 on a pain scale. Neuro: Level of Consciousness is awake, alert, obeys commands, Oriented to person, place, situation. Cardiovascular: Heart tones S1 S2 present Capillary refill < 3 seconds Patient's skin is warm and dry. Rhythm is regular. Respiratory: Airway is patent Respiratory effort is even, unlabored, Respiratory pattern is regular, symmetrical, Breath sounds are clear bilaterally. GI: No signs and/or symptoms were reported involving the gastrointestinal system. : No signs and/or symptoms were reported regarding the genitourinary system. EENT: No signs and/or symptoms were reported regarding the EENT system. Derm: Skin is pink, warm \T\ dry. Musculoskeletal: mild to moderate swelling noted to left arm and hand, reports bilateral arm pain and tingling of right hand. 13:00 Reassessment: Patient appears in no apparent distress at this time. Patient and/or hb family updated on plan of care and expected duration. Pain level reassessed. Patient is alert, oriented x 3, equal unlabored respirations, skin warm/dry/pink. 14:00 Reassessment: Patient appears in no apparent distress at this time. No changes from hb previously documented assessment. Patient and/or family updated on plan of care and expected duration. Pain level reassessed. Patient is alert, oriented x 3, equal unlabored respirations, skin warm/dry/pink. 15:00 Reassessment: Patient appears in no apparent distress at this time. No changes from hb previously documented assessment. Patient and/or family updated on plan of care and expected duration. Pain level reassessed. Patient is alert, oriented x 3, equal unlabored respirations, skin warm/dry/pink. 15:51 Reassessment: Patient appears in no apparent distress at this time. Patient and/or hb family updated on plan of care and expected duration. Pain level reassessed. Patient is alert, oriented x 3, equal unlabored respirations, skin warm/dry/pink. 16:45 Reassessment: Patient appears in no apparent distress at this time. Patient and/or hb family updated on plan of care and expected duration. Pain level reassessed. Patient is alert, oriented x 3, equal unlabored respirations, skin warm/dry/pink. 17:30 Reassessment: Patient appears in no apparent distress at this time. Patient and/or hb family updated on plan of care and expected duration. Pain level reassessed. Patient is alert, oriented x 3, equal unlabored respirations, skin warm/dry/pink. Vital Signs: 12:15 Temp 97.9(O); jp3 12:24 BP 132 / 62; Pulse 82; Resp 16; Pulse Ox 98% on R/A; Pain 5/10; hb 13:27 BP 116 / 62; Pulse 80; Resp 14; Pulse Ox 98% on R/A; hb 15:00 BP 168 / 78; Pulse 81; Resp 15; Pulse Ox 100% on R/A; hb 15:55 BP 179 / 57; Pulse 78; Resp 17; Pulse Ox 99% on R/A; Pain 5/10; hb 17:30 BP 155 / 59; Pulse 75; Resp 15; Pulse Ox 100% on R/A; hb ED Course: 12:18 Patient arrived in ED. hb 12:19 Arm band placed on. hb 12:20 Triage completed. hb 12:21 Anjali Oh FNP-C is PHCP. kb 12:21 Deep Herzog MD is Attending Physician. kb 12:26 Patient has correct armband on for positive identification. Bed in low position. Call hb light in reach. Side rails up X2. 12:42 Inserted saline lock: 20 gauge antecubital area, using aseptic technique. Blood hb collected. 12:49 XRAY Chest (1 view) In Process Unspecified. EDMS 12:50 Basic Metabolic Panel Sent. hb 12:57 Head C Spine Mpr Wo Con In Process Unspecified. EDMS 13:26 Kimberly Monteiro, RN is Primary Nurse. hb 15:40 Repeat lab(s) drawn. by md, sent to lab. jp3 15:45 Troponin (emerg Dept Use Only) Sent. jp3 17:30 No provider procedures requiring assistance completed. IV discontinued, intact, hb bleeding controlled, No redness/swelling at site. Pressure dressing applied. Administered Medications: No medications were administered Outcome: 16:21 Discharge ordered by MD. kb 17:30 Discharged to home ambulatory. hb 17:30 Condition: stable 17:30 Discharge instructions given to patient, Instructed on discharge instructions, follow up and referral plans. Demonstrated understanding of instructions, follow-up care. 17:57 Patient left the ED. hb Signatures: Dispatcher [employer] EDMS Anjali Oh, PLASTIC SHEETING CUTTER-C PLASTIC SHEETING CUTTER-Kimberly Sethi RN RN Bob Kline jp3 Corrections: (The following items were deleted from the chart) 12:33 12:19 Acuity: ASTER 4 hb hb 12:35 12:19 Presenting complaint: EMS states: Right upper back and right sided neck pain that hb radiates to right arm x 3 days. hb
--- NOTE | 2019-02-15 16:22 | EDPHYS ---
Physician Documentation [facility] Name: Nadir Mendez Age: 73 yrs Sex: Male : 1945 Arrival Date: 02/15/2019 Time: 12:18 Bed 6 Private MD: ED Physician Deep Herzog HPI: 02/15 13:34 This 73 yrs old Male presents to ER via EMS with complaints of Arm Pain. kb 13:34 The patient or guardian complains of pain, that is acute. The symptoms are located kb diffusely. Onset: The symptoms/episode began/occurred yesterday. Context: The problem was sustained at home, The neck injury/problem resulted from from unknown cause. Associated signs and symptoms: Pertinent positives: numbness, in the right hand, tingling, in the right hand. The pain radiates to the left trapezius, right trapezius, right arm and left arm. Modifying factors: The symptoms are alleviated by nothing. the symptoms are aggravated by nothing. Severity of symptoms: At their worst the symptoms were moderate, in the emergency department the symptoms are unchanged. The patient has not experienced similar symptoms in the past. The patient has not recently seen a physician. 14:47 Pt reports he started having neck, back and bilateral shoulder pain yesterday. Pain is kb worse with movement. States the pain radiates down right arm and it is sometimes numb feeling and tingling. Denies injury or trauma. . Historical: - Allergies: 12:24 No Known Drug Allergies; hb - Home Meds: 12:24 amlodipine 2.5 mg tab 1 tab once daily [Active]; aspirin 81 mg Oral TbEC [Active]; hb aspirin 81 mg Oral TbEC 1 tab once daily [Active]; carbidopa-levodopa 25-100 mg Oral tab twice a day [Active]; ipratropium-albuterol 0.5 mg-3 mg(2.5 mg base)/3 mL Inhl nebu 3 mL 4 times per day [Active]; Lyrica 75 mg Oral 2 times per day [Active]; cilostazol 100 mg Oral tab 1 tab 2 times per day [Active]; clopidogrel 75 mg Oral tab 1 tab nightly [Active]; gabapentin 100 mg Oral cap twice a day [Active]; Lantus 100 unit/mL Sub-Q soln 20 unit daily [Active]; metoprolol tartrate 25 mg Oral tab 1 tab 2 times per day [Active]; pantoprazole 40 mg Oral TbEC 1 tab once daily [Active]; pravastatin 40 mg Oral tab 1 tab nightly [Active]; renal-jenna 0.8mg 1 tab with meals [Active]; sevelamer carbonate 800 mg Oral tab 1 tab 3 times per day [Active]; sertraline 75 mg Oral tab 1 tab once daily [Active]; zinc sulfate 220 mg Oral tab daily [Active]; - PMHx: 12:24 Alzheimers; Anemia; Depression; Diabetes - NIDDM; Dialysis; GERD; Hepatitis; hb Hyperlipidemia; Hypertension; neuropathy; Pancreatitis; Parkinson's; PVD; Renal Disease; Tues, Thurs, Sat; Ulcers; - Immunization history:: Adult Immunizations up to date. - Social history:: Smoking status: Patient/guardian denies using tobacco. - Ebola Screening: : No symptoms or risks identified at this time. ROS: 13:21 Constitutional: Negative for fever, chills, and weight loss, ENT: Negative for injury, kb pain, and discharge, Abdomen/GI: Negative for abdominal pain, nausea, vomiting, diarrhea, and constipation, : Negative for injury, bleeding, discharge, and swelling, MS/Extremity: Negative for injury and deformity, Skin: Negative for injury, rash, and discoloration. 13:21 Neck: Positive for pain with movement, pain at rest, tenderness. 13:21 Cardiovascular: Positive for chest pain, Negative for edema, orthopnea, palpitations, paroxysmal nocturnal dyspnea. 13:21 Neuro: Positive for numbness, tingling, of the right hand. Exam: 13:25 Constitutional: This is a well developed, well nourished patient who is awake, alert, kb and in no acute distress. Head/Face: Normocephalic, atraumatic. ENT: Nares patent. No nasal discharge, no septal abnormalities noted. Tympanic membranes are normal and external auditory canals are clear. Oropharynx with no redness, swelling, or masses, exudates, or evidence of obstruction, uvula midline. Mucous membranes moist. Chest/axilla: Normal chest wall appearance and motion. Nontender with no deformity. No lesions are appreciated. Cardiovascular: Regular rate and rhythm with a normal S1 and S2. No gallops, murmurs, or rubs. Normal PMI, no JVD. No pulse deficits. Abdomen/GI: Soft, non-tender, with normal bowel sounds. No distension or tympany. No guarding or rebound. No evidence of tenderness throughout. 13:25 Neck: External neck: tenderness, that is moderate, of the left mid cervical area, right mid cervical area, left trapezius, lower cervical area and right trapezius. 13:25 Respiratory: the patient does not display signs of respiratory distress, Respirations: normal, Breath sounds: rhonchi, that are mild, are heard in the right middle lobe, right lower lobe, right posterior middle lobe and right posterior lower lobe. 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 13:25 Neuro: intermittent numbness to bilateral lower extremities, numbness and tingling that radiates down right arm from neck. . Vital Signs: 12:15 Temp 97.9(O); jp3 12:24 BP 132 / 62; Pulse 82; Resp 16; Pulse Ox 98% on R/A; Pain 5/10; hb 13:27 BP 116 / 62; Pulse 80; Resp 14; Pulse Ox 98% on R/A; hb 15:00 BP 168 / 78; Pulse 81; Resp 15; Pulse Ox 100% on R/A; hb 15:55 BP 179 / 57; Pulse 78; Resp 17; Pulse Ox 99% on R/A; Pain 5/10; hb 17:30 BP 155 / 59; Pulse 75; Resp 15; Pulse Ox 100% on R/A; hb MDM: 12:21 Patient medically screened. kb 13:20 Data reviewed: vital signs, nurses notes. Data interpreted: Pulse oximetry: on room air kb is 98 %. Interpretation: normal. 16:10 Counseling: I had a detailed discussion with the patient and/or guardian regarding: the kb historical points, exam findings, and any diagnostic results supporting the discharge/admit diagnosis, lab results, radiology results, the need for outpatient follow up, a family practitioner, to return to the emergency department if symptoms worsen or persist or if there are any questions or concerns that arise at home. 02/15 12:36 Order name: Basic Metabolic Panel kb 02/15 12:36 Order name: CBC with Diff; Complete Time: 13:02 kb 06/08 12:36 Order name: LFT's; Complete Time: 13:19 kb 02/15 12:36 Order name: Magnesium; Complete Time: 13:19 kb 02/15 12:36 Order name: NT PRO-BNP; Complete Time: 13:19 kb 02/15 12:36 Order name: PT-INR; Complete Time: 13:02 kb 02/15 12:36 Order name: Troponin (emerg Dept Use Only); Complete Time: 13:19 kb 02/15 12:36 Order name: XRAY Chest (1 view); Complete Time: 13:19 kb 02/15 12:36 Order name: EKG; Complete Time: 12:38 kb 02/15 12:37 Order name: Basic Metabolic Panel; Complete Time: 13:19 EDMS 02/15 12:50 Order name: Head C Spine Mpr Wo Con; Complete Time: 13:19 EDMS 08 14:44 Order name: Troponin (emerg Dept Use Only); Complete Time: 16:20 kb 02/15 12:36 Order name: Cardiac monitoring; Complete Time: 12:50 kb 02/15 12:36 Order name: EKG - Nurse/Tech; Complete Time: 13:26 kb 02/15 12:36 Order name: IV Saline Lock; Complete Time: 12:51 kb 02/15 12:36 Order name: Labs collected and sent; Complete Time: 12:50 kb 02/15 12:36 Order name: O2 Per Protocol; Complete Time: 12:50 kb 02/15 12:36 Order name: O2 Sat Monitoring; Complete Time: 12:50 kb 02/15 14:44 Order name: EKG; Complete Time: 14:46 kb 02/15 14:44 Order name: EKG - Nurse/Tech; Complete Time: 14:45 kb Administered Medications: No medications were administered Disposition: 02/16 07:05 Co-signature as Attending Physician, Deep Herzog MD. rn Disposition: 02/15/19 16:21 Discharged to Home. Impression: Radiculopathy, cervical region. - Condition is Stable. - Discharge Instructions: Cervical Radiculopathy, [id number]. - Medication Reconciliation Form, Thank You Letter, Antibiotic Education, Prescription Opioid Use, SBAR form form. - Follow up: Emergency Department; When: As needed; Reason: Worsening of condition. Follow up: Private Physician; When: 2 - 3 days; Reason: Recheck today's complaints, Continuance of care, Re-evaluation by your physician. Signatures: Dispatcher [employer] EDCO Anjali Oh, CHIEF [employer]-C [employer]-Deep Strickland MD MD rn Kimberly Monteiro RN RN Corrections: (The following items were deleted from the chart) 02/15 12:50 12:38 Head Brain Wo Cont+CT.RAD.BRZ ordered. EDMS EDMS 12:56 12:51 C Spine Wo Con+CT.RAD.BRZ ordered. EDCO EDMS 17:57 16:21 02/15/2019 16:21 Discharged to Home. Impression: Radiculopathy, cervical region. hb Condition is Stable. Forms are Medication Reconciliation Form, Thank You Letter, Antibiotic Education, Prescription Opioid Use. Follow up: Emergency Department; When: As needed; Reason: Worsening of condition. Follow up: Private Physician; When: 2 - 3 days; Reason: Recheck today's complaints, Continuance of care, Re-evaluation by your physician. kb
[2019-02-15 18:16] VITALS: TEMP 97.9
[2019-02-15 18:22] VITALS: BP 179/57; O2SAT 99
--- NOTE | 2019-02-16 07:55 | EKG ---
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
--- NOTE | 2019-02-16 07:56 | EKG ---
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
== END 2019-02-15 17:57 | disposition home or self-care (01) ==
LOC: ER 12:15
DX: M54.12 Radiculopathy, cervical region (principal); E11.9 Type 2 diabetes mellitus without complications; Z99.2 Dependence on renal dialysis; N28.9 Disorder of kidney and ureter, unspecified; I10 Essential (primary) hypertension; E78.5 Hyperlipidemia, unspecified
CPT/HCPCS: 36415; 70450; 71045; 72125; 80048; 80076; 83735; 83880; 84484; 85025; 85610; 93005; 99284

== ENCOUNTER 2019-03-08 02:13 | Inpatient (IN) | payer OTHER ==
--- OUTSIDE RECORDS SUMMARY | 2019-03-08 02:18 | XMS REPORT | Clinical Summary ---
:[address] [facility] Address [address] [place] [address] Care Team Providers Name Role Phone Robert [...] 09/18/2018 Duong Caldera MD Peripheral vascular disease ([facility]); Katie Guerra Type 2 diabetes mellitus with diabetic peripheral angiopathy and gangrene, with long-term current use of insulin (HCC); Ivanna Clay, ESRD (end stage renal disease) ([facility]); Malfunction of arteriovenous dialysis fistula, initial encounter ([facility]); Iliana Cowart MD Benign essential HTN; Ale Kessler Elevated troponin MD Denise Bynum, MD Bill Lynch, MD David 08/22/2018 Travel after 03/07/2018 Family History Medical History Relation Name Comments [...] Taken Blood Pressure 128/58 09/18/2018 1:[address] Pulse 69 09/18/2018 1:[address] Temperature 36.6 C (97.9 F) 09/18/2018 1:[address] Respiratory Rate 18 09/18/2018 1:[address] Oxygen Saturation 97% 09/18/2018 1:[address] Inhaled Oxygen Concentration 21% 09/15/2018 2:[address] Weight 79.6 kg (175 lb 7.8 oz) 09/18/2018 3:[address] Height 170.2 cm (5' 7") 08/22/2018 2:[address] Body Mass Index 27.49 09/18/2018 3:[address] Plan of Treatment Not on file Implants Implanted Type Area Jewelry Bench Worker Device Shelf Model / Identifier Expiration Serial / Date Lot Flseal Vhsd Full Strlprep 10ml [id number] - [id number] Cement/Andrea Right: HANDLEY: BIOSCI 11/20/2019 [id number] / Implanted: Qty: 1 on 08/30/2018 by Geovanni Crabtree MD ler/Adhesi Leg / ve [id number] Mesh Mtrx Wnd Bilyr 10x12.5sq [id number] - [id number] Tissue Right: [employer] 03/09/2020 [id number] / Implanted: Qty: 1 on 09/13/2018 by Aba Millan DPM Graft/Subs Foot / titute [id number] Procedures Procedure Name Priority Date/Time Associated Comments Diagnosis RHYTHM STRIP - SCAN 12/12/2018 1:22 PM CDT CARDIAC CATH REPORT - 10/08/2018 12:[address] RHYTHM STRIP - SCAN 10/08/2018 12:[address] POCT-GLUCOSE METER Routine 09/18/2018 1:32 Results for this PM [facility] procedure are in the results section. HEMODIALYSIS Routine 09/18/2018 1:06 Results for this INPATIENT PM [facility] procedure are in the results section. POCT-GLUCOSE METER Routine 09/18/2018 7:36 Results for this AM [facility] procedure are in the results section. CBC W/PLT COUNT & Routine 09/18/2018 3:33 Results for this AUTO DIFFERENTIAL AM [facility] procedure are in the results section. CBC W/PLT COUNT & Routine 09/18/2018 3:33 Results for this AUTO DIFFERENTIAL AM [facility] procedure are in the results section. BASIC METABOLIC PANEL Routine 09/18/2018 3:33 Results for this (7) AM [facility] [facility] procedure are in the results section. PHOSPHORUS Routine 09/18/2018 3:33 Results for this AM [facility] procedure are in the results section. MAGNESIUM Routine 09/18/2018 3:33 Results for this AM [facility] procedure are in the results section. POCT-GLUCOSE METER Routine 09/17/2018 9:32 Results for this PM [facility] procedure are in the results section. POCT-GLUCOSE METER Routine 09/17/2018 5:42 Results for this PM [facility] procedure are in the results section. POCT-GLUCOSE METER Routine 09/17/2018 12:37 Results for this PM [facility] procedure are in the results section. POCT-GLUCOSE METER Routine 09/17/2018 8:45 Results for this AM [facility] procedure are in the results section. CBC W/PLT COUNT & Routine 09/17/2018 4:00 Results for this AUTO DIFFERENTIAL AM [facility] procedure are in the results section. PHOSPHORUS Routine 09/17/2018 4:00 Results for this AM [facility] procedure are in the results section. MAGNESIUM Routine 09/17/2018 4:00 Results for this AM [facility] procedure are in the results section. CBC W/PLT COUNT & Routine 09/17/2018 4:00 Results for this AUTO DIFFERENTIAL AM [facility] procedure are in the results section. POCT-GLUCOSE METER Routine 09/16/2018 9:24 Results for this PM [facility] procedure are in the results section. POCT-GLUCOSE METER Routine 09/16/2018 5:38 Results for this PM [facility] procedure are in the results section. HEMODIALYSIS Routine 09/16/2018 1:49 Results for this INPATIENT PM [facility] procedure are in the results section. POCT-GLUCOSE METER Routine 09/16/2018 1:27 Results for this PM [facility] procedure are in the results section. BASIC METABOLIC PANEL Add-On 09/16/2018 9:59 Results for this (7) AM [facility] procedure are in the results section. POCT-GLUCOSE METER Routine 09/16/2018 7:42 Results for this AM [facility] procedure are in the results section. CBC W/PLT COUNT & Routine 09/16/2018 5:26 Results for this AUTO DIFFERENTIAL AM [facility] procedure are in the results section. PHOSPHORUS Routine 09/16/2018 5:26 Results for this AM [facility] procedure are in the results section. MAGNESIUM Routine 09/16/2018 5:26 Results for this AM [facility] procedure are in the results section. CBC W/PLT COUNT & Routine 09/16/2018 5:26 Results for this AUTO DIFFERENTIAL AM [facility] procedure are in the results section. POCT-GLUCOSE METER Routine 09/15/2018 9:15 Results for this PM [facility] procedure are in the results section. POCT-GLUCOSE METER Routine 09/15/2018 5:23 Results for this PM [facility] procedure are in the results section. POCT-GLUCOSE METER Routine 09/15/2018 11:14 Results for this AM [facility] procedure are in the results section. XR FOOT RIGHT 3 VIEW Routine 09/15/2018 8:01 Results for this AM [facility] procedure are in the results section. POCT-GLUCOSE METER Routine 09/15/2018 7:43 Results for this AM [facility] procedure are in the results section. CBC W/PLT COUNT & Routine 09/15/2018 4:35 Results for this AUTO DIFFERENTIAL AM [facility] procedure are in the results section. PHOSPHORUS Routine 09/15/2018 4:35 Results for this AM [facility] procedure are in the results section. MAGNESIUM Routine 09/15/2018 4:35 Results for this AM [facility] procedure are in the results section. CBC W/PLT COUNT & Routine 09/15/2018 4:35 Results for this AUTO DIFFERENTIAL AM [facility] procedure are in the results section. POCT-GLUCOSE METER Routine 09/14/2018 9:25 Results for this PM [facility] procedure are in the results section. TRANSFUSION SERVICE 09/14/2018 5:50 REPORT - SCAN PM [facility] POCT-GLUCOSE METER Routine 09/14/2018 5:14 Results for this PM [facility] procedure are in the results section. POCT-GLUCOSE METER Routine 09/14/2018 1:12 Results for this PM [facility] procedure are in the results section. POCT-GLUCOSE METER Routine 09/14/2018 7:34 Results for this AM [facility] procedure are in the results section. CBC W/PLT COUNT & Routine 09/14/2018 3:21 Results for this AUTO DIFFERENTIAL AM [facility] procedure are in the results section. BASIC METABOLIC PANEL Routine 09/14/2018 3:21 Results for this (7) AM [facility] procedure are in the results section. PHOSPHORUS Routine 09/14/2018 3:21 Results for this AM [facility] procedure are in the results section. MAGNESIUM Routine 09/14/2018 3:21 Results for this AM [facility] procedure are in the results section. CBC W/PLT COUNT & Routine 09/14/2018 3:21 Results for this AUTO DIFFERENTIAL AM [facility] procedure are in the results section. POCT-GLUCOSE METER Routine 09/13/2018 10:27 Results for this PM [facility] procedure are in the results section. POCT-GLUCOSE METER Routine 09/13/2018 7:18 Results for this PM [facility] procedure are in the results section. POCT-GLUCOSE METER Routine 09/13/2018 5:30 Results for this PM [facility] procedure are in the results section. HEMODIALYSIS Routine 09/13/2018 2:[address] [facility] [address] POCT-GLUCOSE METER Routine 09/13/2018 9:43 Results for this AM [facility] procedure are in the results section. POCT-GLUCOSE METER Routine 09/13/2018 9:01 Results for this AM [facility] procedure are in the results section. TYPE AND SCREEN, STAT 09/13/2018 8:36 Results for this AUTOMATED AM [facility] procedure are in the results section. TISSUE EXAM AP Routine 09/13/2018 8:20 Results for this AM [facility] procedure are in the results section. IMPLANT,GRAFTJACKET 09/13/2018 7:35 Non-healing AM [facility] surgical wound, initial encounter Special Needs (GRAFT JACKET, PULSE LAVAGE, WOUND VAC) AMPUTATION,FOOT 09/13/2018 7:[address] Non-healing surgical wound, initial encounter Special Needs (GRAFT JACKET, PULSE LAVAGE, WOUND VAC) DEBRIDEMENT/I&D,WOUND EXTREMITY 09/13/2018 7:[address] Non-healing surgical LOWER wound, initial encounter Special Needs (GRAFT JACKET, PULSE LAVAGE, WOUND VAC) CBC W/PLT COUNT & Routine 09/13/2018 4:45 AM Results for this AUTO DIFFERENTIAL [facility] procedure are in the results section. PHOSPHORUS Routine 09/13/2018 4:45 AM Results for this [facility] procedure are in the results section. MAGNESIUM Routine 09/13/2018 4:45 AM Results for this [facility] procedure are in the results section. CBC W/PLT COUNT & Routine 09/13/2018 4:45 AM Results for this AUTO DIFFERENTIAL [facility] procedure are in the results section. BASIC METABOLIC PANEL Routine 09/13/2018 4:45 AM Results for this (7) [facility] [facility] procedure are in the results section. POCT-GLUCOSE METER Routine 09/12/2018 8:47 PM Results for this [facility] procedure are in the results section. POCT-GLUCOSE METER Routine 09/12/2018 6:14 PM Results for this [facility] procedure are in the results section. POCT-GLUCOSE METER Routine 09/12/2018 1:13 PM Results for this [facility] procedure are in the results section. POCT-GLUCOSE METER Routine 09/12/2018 9:39 AM Results for this [facility] procedure are in the results section. CBC W/PLT COUNT & Routine 09/12/2018 4:34 AM Results for this AUTO DIFFERENTIAL [facility] procedure are in the results section. PHOSPHORUS Routine 09/12/2018 4:34 AM Results for this [facility] procedure are in the results section. MAGNESIUM Routine 09/12/2018 4:34 AM Results for this [facility] procedure are in the results section. CBC W/PLT COUNT & Routine 09/12/2018 4:34 AM Results for this AUTO DIFFERENTIAL [facility] procedure are in the results section. POCT-GLUCOSE METER Routine 09/11/2018 9:15 PM Results for this [facility] procedure are in the results section. POCT-GLUCOSE METER Routine 09/11/2018 5:49 PM Results for this [facility] procedure are in the results section. POCT-GLUCOSE METER Routine 09/11/2018 1:03 PM Results for this [facility] procedure are in the results section. POCT-GLUCOSE METER Routine 09/11/2018 10:27 AM Results for this [facility] procedure are in the results section. VITAMIN B12 AND Routine 09/11/2018 10:19 AM Results for this FOLATE [facility] procedure are in the results section. HEMODIALYSIS Routine 09/11/2018 9:53 AM Results for this INPATIENT [facility] procedure are in the results section. POCT-GLUCOSE METER Routine 09/11/2018 7:39 AM Results for this [facility] procedure are in the results section. CBC W/PLT COUNT & Routine 09/11/2018 4:51 AM Results for this AUTO DIFFERENTIAL [facility] procedure are in the results section. PHOSPHORUS Routine 09/11/2018 4:51 AM Results for this [facility] procedure are in the results section. MAGNESIUM Routine 09/11/2018 4:51 AM Results for this [facility] procedure are in the results section. CBC W/PLT COUNT & Routine 09/11/2018 4:51 AM Results for this AUTO DIFFERENTIAL [facility] procedure are in the results section. POCT-GLUCOSE METER Routine 09/10/2018 11:08 PM Results for this [facility] procedure are in the results section. POCT-GLUCOSE METER Routine 09/10/2018 5:31 PM Results for this [facility] procedure are in the results section. POCT-GLUCOSE METER Routine 09/10/2018 1:40 PM Results for this [facility] procedure are in the results section. POCT-GLUCOSE METER Routine 09/10/2018 9:47 AM Results for this [facility] procedure are in the results section. CBC W/PLT COUNT & Routine 09/10/2018 4:50 AM Results for this AUTO DIFFERENTIAL [facility] procedure are in the results section. PHOSPHORUS Routine 09/10/2018 4:50 AM Results for this [facility] procedure are in the results section. MAGNESIUM Routine 09/10/2018 4:50 AM Results for this [facility] procedure are in the results section. CBC W/PLT COUNT & Routine 09/10/2018 4:50 AM Results for this AUTO DIFFERENTIAL [facility] procedure are in the results section. POCT-GLUCOSE METER Routine 09/09/2018 9:06 PM Results for this [facility] procedure are in the results section. POCT-GLUCOSE METER Routine 09/09/2018 4:46 PM Results for this [facility] procedure are in the results section. HEMODIALYSIS Routine 09/09/2018 4:12 PM Results for this INPATIENT [facility] procedure are in the results section. POCT-GLUCOSE METER Routine 09/09/2018 1:04 PM Results for this [facility] procedure are in the results section. POCT-GLUCOSE METER Routine 09/09/2018 9:24 AM Results for this [facility] procedure are in the results section. CBC W/PLT COUNT & Routine 09/09/2018 3:56 AM Results for this AUTO DIFFERENTIAL [facility] procedure are in the results section. PHOSPHORUS Routine 09/09/2018 3:56 AM Results for this [facility] procedure are in the results section. MAGNESIUM Routine 09/09/2018 3:56 AM Results for this [facility] procedure are in the results section. CBC W/PLT COUNT & Routine 09/09/2018 3:56 AM Results for this AUTO DIFFERENTIAL [facility] procedure are in the results section. BASIC METABOLIC PANEL Routine 09/09/2018 3:56 AM Results for this (7) [facility] [facility] procedure are in the results section. POCT-GLUCOSE METER Routine 09/08/2018 9:44 PM Results for this [facility] procedure are in the results section. TRANSFUSION SERVICE 09/08/2018 6:00 PM REPORT - SCAN [facility] POCT-GLUCOSE METER Routine 09/08/2018 5:06 PM Results for this [facility] procedure are in the results section. POCT-GLUCOSE METER Routine 09/08/2018 1:52 PM Results for this [facility] procedure are in the results section. POCT-GLUCOSE METER Routine 09/08/2018 10:20 AM Results for this [facility] procedure are in the results section. POCT-GLUCOSE METER Routine 09/08/2018 7:58 AM Results for this [facility] procedure are in the results section. CBC W/PLT COUNT & Routine 09/08/2018 3:32 AM Results for this AUTO DIFFERENTIAL [facility] procedure are in the results section. PHOSPHORUS Routine 09/08/2018 3:32 AM Results for this [facility] procedure are in the results section. MAGNESIUM Routine 09/08/2018 3:32 AM Results for this [facility] procedure are in the results section. CBC W/PLT COUNT & Routine 09/08/2018 3:32 AM Results for this AUTO DIFFERENTIAL [facility] procedure are in the results section. PREPARE LEUKO-REDUCED Routine 09/07/2018 11:54 PM Results for this RBC [facility] procedure are in the results section. PREPARE LEUKO-REDUCED Routine 09/07/2018 11:54 PM Results for this RBC [facility] procedure are in the results section. POCT-GLUCOSE METER Routine 09/07/2018 9:32 PM Results for this [facility] procedure are in the results section. TRANSFUSION SERVICE 09/07/2018 6:01 PM REPORT - SCAN [facility] POCT-GLUCOSE METER Routine 09/07/2018 4:46 PM Results for this [facility] procedure are in the results section. POCT-GLUCOSE METER Routine 09/07/2018 12:43 PM Results for this [facility] procedure are in the results section. POCT-GLUCOSE METER Routine 09/07/2018 11:42 AM Results for this [facility] procedure are in the results section. XR FOOT RIGHT 3 VIEW Routine 09/07/2018 10:19 AM Results for this [facility] procedure are in the results section. POCT-GLUCOSE METER Routine 09/07/2018 9:55 AM Results for this [facility] procedure are in the results section. FUNGUS CULTURE + Routine 09/07/2018 9:04 AM Results for this SMEAR [facility] procedure are in the results section. AFB CULTURE + SMEAR Routine 09/07/2018 9:03 AM Results for this [facility] procedure are in the results section. ANAEROBIC CULTURE Routine 09/07/2018 9:03 AM Results for this [facility] procedure are in the results section. SURGICALLY OBTAINED Routine 09/07/2018 9:03 AM Results for this CULTURE + GRAM STAIN [facility] procedure are in the results section. FUNGUS CULTURE + Routine 09/07/2018 8:40 AM Results for this SMEAR [facility] procedure are in the results section. AFB CULTURE + SMEAR Routine 09/07/2018 8:39 AM Results for this [facility] procedure are in the results section. ANAEROBIC CULTURE Routine 09/07/2018 8:39 AM Results for this [facility] procedure are in the results section. SURGICALLY OBTAINED Routine 09/07/2018 8:39 AM Results for this CULTURE + GRAM STAIN [facility] procedure are in the results section. FUNGUS CULTURE + Routine 09/07/2018 8:39 AM Results for this SMEAR [facility] procedure are in the results section. AFB CULTURE + SMEAR Routine 09/07/2018 8:37 AM Results for this [facility] procedure are in the results section. ANAEROBIC CULTURE Routine 09/07/2018 8:37 AM Results for this [facility] procedure are in the results section. SURGICALLY OBTAINED Routine 09/07/2018 8:37 AM Results for this CULTURE + GRAM STAIN [facility] procedure are in the results section. TISSUE EXAM AP Routine 09/07/2018 8:37 AM Results for this [facility] procedure are in the results section. AMPUTATION,FOOT 09/07/2018 8:00 AM Open wound of [facility] right lower extremity, initial encounter Case Notes 2 HOURS Special Needs (GUILLITIN) POCT-GLUCOSE METER Routine 09/07/2018 4:55 AM Results for this [facility] procedure are in the results section. CBC W/PLT COUNT & AUTO Routine 09/07/2018 4:37 AM Results for this DIFFERENTIAL [facility] procedure are in the results section. POTASSIUM Routine 09/07/2018 4:37 AM Results for this [facility] procedure are in the results section. PHOSPHORUS Routine 09/07/2018 4:37 AM Results for this [facility] procedure are in the results section. MAGNESIUM Routine 09/07/2018 4:37 AM Results for this [facility] procedure are in the results section. CBC W/PLT COUNT & AUTO Routine 09/07/2018 4:37 AM Results for this DIFFERENTIAL [facility] procedure are in the results section. POCT-GLUCOSE METER Routine 09/06/2018 8:29 PM Results for this [facility] procedure are in the results section. TRANSFUSION SERVICE 09/06/2018 6:01 PM REPORT - SCAN [facility] TRANSFUSE Routine 09/06/2018 5:16 PM LEUKO-REDUCED RED [facility] BLOOD CELLS POCT-GLUCOSE METER Routine 09/06/2018 3:36 PM Results for this [facility] procedure are in the results section. HEMODIALYSIS INPATIENT Routine 09/06/2018 2:[address] [address] TRANSFUSE Routine 09/06/2018 12:13 PM LEUKO-REDUCED RED [facility] BLOOD CELLS POTASSIUM Routine 09/06/2018 9:28 AM Results for this [facility] procedure are in the results section. CBC W/PLT COUNT & AUTO Routine 09/06/2018 4:45 AM Results for this DIFFERENTIAL [facility] procedure are in the results section. PHOSPHORUS Routine 09/06/2018 4:45 AM Results for this [facility] procedure are in the results section. MAGNESIUM Routine 09/06/2018 4:45 AM Results for this [facility] procedure are in the results section. CBC W/PLT COUNT & AUTO Routine 09/06/2018 4:45 AM Results for this DIFFERENTIAL [facility] procedure are in the results section. POCT-GLUCOSE METER Routine 09/05/2018 5:41 PM Results for this [facility] procedure are in the results section. POCT-GLUCOSE METER Routine 09/05/2018 12:53 PM Results for this [facility] procedure are in the results section. TYPE AND SCREEN, Routine 09/05/2018 10:17 AM Results for this AUTOMATED [facility] procedure are in the results section. BLOOD CULTURE Routine 09/05/2018 10:13 AM Results for this [facility] procedure are in the results section. POCT-GLUCOSE METER Routine 09/05/2018 8:17 AM Results for this [facility] procedure are in the results section. BLOOD CULTURE Routine 09/05/2018 6:47 AM Results for this [facility] procedure are in the results section. CBC W/PLT COUNT & AUTO Routine 09/05/2018 4:49 AM Results for this DIFFERENTIAL [facility] procedure are in the results section. PHOSPHORUS Routine 09/05/2018 4:49 AM Results for this [facility] procedure are in the results section. MAGNESIUM Routine 09/05/2018 4:49 AM Results for this [facility] procedure are in the results section. CBC W/PLT COUNT & AUTO Routine 09/05/2018 4:49 AM Results for this DIFFERENTIAL [facility] procedure are in the results section. POCT-GLUCOSE METER Routine 09/04/2018 11:28 PM Results for this [facility] procedure are in the results section. HEMODIALYSIS INPATIENT Routine 09/04/2018 10:10 PM Results for this [facility] procedure are in the results section. PERIPHERAL ANGIOS / 09/04/2018 3:33 PM PAD (peripheral AORTOGRAM [facility] artery disease) (HCC) XR FOOT RIGHT 3 VIEW STAT 09/04/2018 1:28 PM Results for this [facility] procedure are in the results section. POCT-GLUCOSE METER Routine 09/04/2018 12:03 PM Results for this [facility] procedure are in the results section. POCT-GLUCOSE METER Routine 09/04/2018 7:59 AM Results for this [facility] procedure are in the results section. CBC W/PLT COUNT & AUTO Routine 09/04/2018 3:50 AM Results for this DIFFERENTIAL [facility] procedure are in the results section. BASIC METABOLIC PANEL Routine 09/04/2018 3:50 AM Results for this (7) [facility] [facility] procedure are in the results section. PHOSPHORUS Routine 09/04/2018 3:50 AM Results for this [facility] procedure are in the results section. MAGNESIUM Routine 09/04/2018 3:50 AM Results for this [facility] procedure are in the results section. CBC W/PLT COUNT & AUTO Routine 09/04/2018 3:50 AM Results for this DIFFERENTIAL [facility] procedure are in the results section. ARTERIAL DOPPLER ARM, Routine 09/03/2018 9:40 PM Results for this LEFT [facility] procedure are in the results section. VENOUS DOPPLER ARM, Routine 09/03/2018 9:26 PM Results for this LEFT [facility] procedure are in the results section. POCT-GLUCOSE METER Routine 09/03/2018 8:30 PM Results for this [facility] procedure are in the results section. POCT-GLUCOSE METER Routine 09/03/2018 6:03 PM Results for this [facility] procedure are in the results section. POCT-GLUCOSE METER Routine 09/03/2018 12:48 PM Results for this [facility] procedure are in the results section. RESPIRATORY PANEL [facility] Routine 09/03/2018 12:32 PM Results for this [facility] procedure are in the results section. POCT-GLUCOSE METER Routine 09/03/2018 7:52 AM Results for this [facility] procedure are in the results section. CBC W/PLT COUNT & AUTO Routine 09/03/2018 3:57 AM Results for this DIFFERENTIAL [facility] procedure are in the results section. BASIC METABOLIC PANEL Routine 09/03/2018 3:57 AM Results for this (7) [facility] [facility] procedure are in the results section. PHOSPHORUS Routine 09/03/2018 3:57 AM Results for this [facility] procedure are in the results section. MAGNESIUM Routine 09/03/2018 3:57 AM Results for this [facility] procedure are in the results section. CBC W/PLT COUNT & AUTO Routine 09/03/2018 3:57 AM Results for this DIFFERENTIAL [facility] procedure are in the results section. POCT-GLUCOSE METER Routine 09/02/2018 8:46 PM Results for this [facility] procedure are in the results section. POCT-GLUCOSE METER Routine 09/02/2018 5:25 PM Results for this [facility] procedure are in the results section. HEMODIALYSIS INPATIENT Routine 09/02/2018 3:33 PM Results for this [facility] procedure are in the results section. POCT-GLUCOSE METER Routine 09/02/2018 1:25 PM Results for this [facility] procedure are in the results section. POCT-GLUCOSE METER Routine 09/02/2018 7:59 AM Results for this [facility] procedure are in the results section. CBC W/PLT COUNT & AUTO Routine 09/02/2018 3:21 AM Results for this DIFFERENTIAL [facility] procedure are in the results section. PHOSPHORUS Routine 09/02/2018 3:21 AM Results for this [facility] procedure are in the results section. MAGNESIUM Routine 09/02/2018 3:21 AM Results for this [facility] procedure are in the results section. CBC W/PLT COUNT & AUTO Routine 09/02/2018 3:21 AM Results for this DIFFERENTIAL [facility] procedure are in the results section. BASIC METABOLIC PANEL Routine 09/02/2018 3:21 AM Results for this (7) [facility] [facility] procedure are in the results section. FERRITIN Routine 09/02/2018 3:21 AM Results for this [facility] procedure are in the results section. IRON, TIBC, % SAT. Routine 09/02/2018 3:21 AM Results for this (WITHOUT FERRITIN) [facility] procedure are in the results section. POCT-GLUCOSE METER Routine 09/01/2018 9:02 PM Results for this [facility] procedure are in the results section. POCT-GLUCOSE METER Routine 09/01/2018 5:31 PM Results for this [facility] [facility] procedure are in the results section. POCT-GLUCOSE METER Routine 09/01/2018 1:04 PM Results for this [facility] procedure are in the results section. POCT-GLUCOSE METER Routine 09/01/2018 9:46 AM Results for this [facility] [facility] procedure are in the results section. POCT-GLUCOSE METER Routine 09/01/2018 6:30 AM Results for this [facility] procedure are in the results section. CBC W/PLT COUNT & AUTO Routine 09/01/2018 5:02 AM Results for this DIFFERENTIAL [facility] procedure are in the results section. PHOSPHORUS Routine 09/01/2018 5:02 AM Results for this [facility] [facility] procedure are in the results section. MAGNESIUM Routine 09/01/2018 5:02 AM Results for this [facility] procedure are in the results section. CBC W/PLT COUNT & AUTO Routine 09/01/2018 5:02 AM Results for this DIFFERENTIAL [facility] procedure are in the results section. BASIC METABOLIC PANEL Routine 09/01/2018 5:02 AM Results for this (7) [facility] [facility] procedure are in the results section. TRANSFUSION SERVICE 08/31/2018 6:01 PM REPORT - SCAN [facility] POCT-GLUCOSE METER Routine 08/31/2018 5:03 PM Results for this [facility] procedure are in the results section. POCT-GLUCOSE METER Routine 08/31/2018 12:38 PM Results for this [facility] procedure are in the results section. POCT-GLUCOSE METER Routine 08/31/2018 7:49 AM Results for this [facility] procedure are in the results section. CBC W/PLT COUNT & AUTO Routine 08/31/2018 4:05 AM Results for this DIFFERENTIAL [facility] procedure are in the results section. PHOSPHORUS Routine 08/31/2018 4:05 AM Results for this [facility] procedure are in the results section. MAGNESIUM Routine 08/31/2018 4:05 AM Results for this [facility] procedure are in the results section. CBC W/PLT COUNT & AUTO Routine 08/31/2018 4:05 AM Results for this DIFFERENTIAL [facility] procedure are in the results section. BASIC METABOLIC PANEL Routine 08/31/2018 4:05 AM Results for this (7) [facility] [facility] procedure are in the results section. TROPONIN I Routine 08/31/2018 4:05 AM Results for this [facility] procedure are in the results section. TROPONIN I Routine 08/30/2018 11:11 PM Results for this [facility] procedure are in the results section. POCT-GLUCOSE METER Routine 08/30/2018 9:09 PM Results for this [facility] procedure are in the results section. HEMODIALYSIS INPATIENT Routine 08/30/2018 9:[address] TROPONIN I Routine 08/30/2018 6:27 PM Results for this [facility] procedure are in the results section. POCT-GLUCOSE METER Routine 08/30/2018 6:26 PM Results for this [facility] procedure are in the results section. ECG 12-LEAD Routine 08/30/2018 5:10 PM Results for this [facility] procedure are in the results section. PHOSPHORUS STAT 08/30/2018 4:33 PM Results for this [facility] procedure are in the results section. TROPONIN I STAT 08/30/2018 4:33 PM Results for this [facility] procedure are in the results section. MAGNESIUM STAT 08/30/2018 4:33 PM Results for this [facility] procedure are in the results section. BASIC METABOLIC PANEL STAT 08/30/2018 4:33 PM Results for this (7) [facility] [facility] procedure are in the results section. CBC W/PLT COUNT & AUTO Routine 08/30/2018 12:27 PM Results for this DIFFERENTIAL [facility] procedure are in the results section. BASIC METABOLIC PANEL Routine 08/30/2018 12:27 PM Results for this (7) [facility] [facility] procedure are in the results section. CBC W/PLT COUNT & AUTO Routine 08/30/2018 12:27 PM Results for this DIFFERENTIAL [facility] procedure are in the results section. POCT-ACT Routine 08/30/2018 11:27 AM Results for this [facility] procedure are in the results section. HGB/HCT (H&H) - STAT Routine 08/30/2018 11:26 AM Results for this LAB [facility] procedure are in the results section. GLUCOSE-STAT LAB Routine 08/30/2018 11:26 AM Results for this [facility] procedure are in the results section. POTASSIUM-STAT LAB Routine 08/30/2018 11:26 AM Results for this [facility] procedure are in the results section. SODIUM NA-STAT LAB Routine 08/30/2018 11:26 AM Results for this [facility] procedure are in the results section. BLOOD GAS, ARTERIAL Routine 08/30/2018 11:26 AM Results for this [facility] procedure are in the results section. RRL CRITICAL LABS Routine 08/30/2018 11:26 AM Results for this (ABG,NA,K,H&H,GLUCOSE) [facility] procedure are in the results section. POCT-ACT Routine 08/30/2018 10:41 AM Results for this [facility] procedure are in the results section. POCT-ACT Routine 08/30/2018 10:16 AM Results for this [facility] procedure are in the results section. REVASCULARIZATION,DIST 08/30/2018 7:30 AM PAD (peripheral AL AND INTERVAL [facility] artery disease) LIGATION (DRIL) (HCC) Case Notes RIGHT LEG DISTAL VEIN ARTERIALIZATION4 HRS PER CRESENCIO POCT-GLUCOSE METER Routine 08/30/2018 5:[address] CBC W/PLT COUNT & AUTO Routine 08/30/2018 2:[address] Results for this DIFFERENTIAL procedure are in the results section. CBC W/PLT COUNT & AUTO STAT 08/30/2018 2:[address] Results for this DIFFERENTIAL procedure are in the results section. TYPE AND SCREEN, AUTOMATED Routine 08/30/2018 2:[address] PHOSPHORUS Routine 08/30/2018 2:[address] MAGNESIUM Routine 08/30/2018 2:[address] CBC W/PLT COUNT & AUTO Routine 08/30/2018 2:[address] Results for this DIFFERENTIAL procedure are in the results section. CALCIUM, IONIZED Routine 08/30/2018 2:[address] BASIC METABOLIC PANEL (7) Routine 08/30/2018 2:[address] PROTHROMBIN TIME/INR Routine 08/30/2018 2:[address] BASIC METABOLIC PANEL (7) STAT 08/30/2018 2:[address] CBC W/PLT COUNT & AUTO STAT 08/30/2018 2:[address] Results for this DIFFERENTIAL procedure are in the results section. POCT-GLUCOSE METER Routine 08/30/2018 12:[address] POCT-GLUCOSE METER Routine 08/29/2018 5:[address] POCT-GLUCOSE METER Routine 08/29/2018 1:[address] POCT-GLUCOSE METER Routine 08/29/2018 9:[address] BASIC METABOLIC PANEL (7) Routine 08/29/2018 4:[address] POCT-GLUCOSE METER Routine 08/28/2018 9:[address] POCT-GLUCOSE METER Routine 08/28/2018 5:[address] POCT-GLUCOSE METER Routine 08/28/2018 12:[address] HEMODIALYSIS INPATIENT Routine 08/28/2018 12:[address] POCT-GLUCOSE METER Routine 08/28/2018 9:[address] MAGNESIUM Routine 08/28/2018 3:[address] BASIC METABOLIC PANEL (7) Routine 08/28/2018 3:[address] POCT-GLUCOSE METER Routine 08/27/2018 9:[address] POCT-GLUCOSE METER Routine 08/27/2018 5:[address] POCT-GLUCOSE METER Routine 08/27/2018 11:[address] POCT-GLUCOSE METER Routine 08/27/2018 7:[address] CBC W/PLT COUNT & AUTO Routine 08/27/2018 4:[address] Results for this DIFFERENTIAL procedure are in the results section. PHOSPHORUS Routine 08/27/2018 4:[address] MAGNESIUM Routine 08/27/2018 4:[address] CBC W/PLT COUNT & AUTO Routine 08/27/2018 4:[address] Results for this DIFFERENTIAL procedure are in the results section. BASIC METABOLIC PANEL (7) Routine 08/27/2018 4:[address] POCT-GLUCOSE METER Routine 08/26/2018 9:[address] POCT-GLUCOSE METER Routine 08/26/2018 5:[address] POCT-GLUCOSE METER Routine 08/26/2018 12:[address] HEMODIALYSIS INPATIENT Routine 08/26/2018 12:[address] CBC W/PLT COUNT & AUTO Routine 08/26/2018 6:[address] Results for this DIFFERENTIAL procedure are in the results section. COMPREHENSIVE METABOLIC Routine 08/26/2018 6:[address] Results for this PANEL procedure are in the results section. CALCIUM, IONIZED Routine 08/26/2018 6:[address] PHOSPHORUS Routine 08/26/2018 6:[address] MAGNESIUM Routine 08/26/2018 6:[address] CBC W/PLT COUNT & AUTO Routine 08/26/2018 6:[address] Results for this DIFFERENTIAL procedure are in the results section. POCT-GLUCOSE METER Routine 08/25/2018 8:[address] POCT-GLUCOSE METER Routine 08/25/2018 5:[address] POCT-GLUCOSE METER Routine 08/25/2018 12:[address] POCT-GLUCOSE METER Routine 08/25/2018 9:[address] CBC W/PLT COUNT & AUTO Routine 08/25/2018 4:[address] Results for this DIFFERENTIAL procedure are in the results section. PHOSPHORUS Routine 08/25/2018 4:[address] MAGNESIUM Routine 08/25/2018 4:[address] CBC W/PLT COUNT & AUTO Routine 08/25/2018 4:[address] Results for this DIFFERENTIAL procedure are in the results section. BASIC METABOLIC PANEL (7) Routine 08/25/2018 4:[address] POCT-GLUCOSE METER Routine 08/25/2018 4:[address] POCT-GLUCOSE METER Routine 08/24/2018 9:[address] POCT-GLUCOSE METER Routine 08/24/2018 5:[address] VEIN MAPPING LEG RIGHT Routine 08/24/2018 4:[address] ARTERIAL DOPPLER LEG, RIGHT Routine 08/24/2018 4:[address] POCT-GLUCOSE METER Routine 08/24/2018 2:[address] POCT-GLUCOSE METER Routine 08/24/2018 11:[address] POCT-GLUCOSE METER Routine 08/24/2018 9:[address] POCT-GLUCOSE METER Routine 08/24/2018 8:[address] POCT-GLUCOSE METER Routine 08/24/2018 7:[address] CBC W/PLT COUNT & AUTO Routine 08/24/2018 3:[address] Results for this DIFFERENTIAL procedure are in the results section. RETICULOCYTE COUNT Routine 08/24/2018 3:[address] FERRITIN Routine 08/24/2018 3:[address] IRON, TIBC, % SAT. (WITHOUT Routine 08/24/2018 3:[address] Results for this FERRITIN) procedure are in the results section. PHOSPHORUS Routine 08/24/2018 3:[address] CBC W/PLT COUNT & AUTO Routine 08/24/2018 3:[address] Results for this DIFFERENTIAL procedure are in the results section. MAGNESIUM Routine 08/24/2018 3:[address] BASIC METABOLIC PANEL (7) Routine 08/24/2018 3:[address] POCT-GLUCOSE METER Routine 08/23/2018 9:[address] POCT-GLUCOSE METER Routine 08/23/2018 5:[address] POCT-GLUCOSE METER Routine 08/23/2018 12:[address] HEMODIALYSIS INPATIENT Routine 08/23/2018 11:[address] POCT-GLUCOSE METER Routine 08/23/2018 11:[address] POCT-GLUCOSE METER Routine 08/23/2018 7:[address] CBC W/PLT COUNT & AUTO Routine 08/23/2018 4:[address] Results for this DIFFERENTIAL procedure are in the results section. COMPREHENSIVE METABOLIC Routine 08/23/2018 4:[address] Results for this PANEL procedure are in the results section. PHOSPHORUS Routine 08/23/2018 4:[address] CBC W/PLT COUNT & AUTO Routine 08/23/2018 4:[address] Results for this DIFFERENTIAL procedure are in the results section. MAGNESIUM Routine 08/23/2018 4:[address] POCT-GLUCOSE METER Routine 08/22/2018 8:[address] XR CHEST 1 VIEW Routine 08/22/2018 6:[address] Results for this PORTABLE/BEDSIDE procedure are in the results section. PHOSPHORUS Routine 08/22/2018 6:[address] POCT-GLUCOSE METER Routine 08/22/2018 5:[address] HEPATITIS B SURFACE ANTIGEN Routine 08/22/2018 12:[address] POCT-GLUCOSE METER Routine 08/22/2018 10:[address] POCT-GLUCOSE METER Routine 08/22/2018 7:[address] POCT-GLUCOSE METER Routine 08/22/2018 6:[address] CBC W/PLT COUNT & AUTO Routine 08/22/2018 3:[address] Results for this DIFFERENTIAL procedure are in the results section. PT/APTT Routine 08/22/2018 3:[address] CBC W/PLT COUNT & AUTO Routine 08/22/2018 3:[address] Results for this DIFFERENTIAL procedure are in the results section. MAGNESIUM Routine 08/22/2018 3:[address] BASIC METABOLIC PANEL (7) Routine 08/22/2018 3:[address] after 03/07/2018 Results RHYTHM STRIP - SCAN (12/12/2018 1:22 PM CDT)Only the most recent of2 resultswithin the time period is included. Narrative Performed At CARDIAC CATH REPORT - SCAN (10/08/2018 12:[address]) Narrative Performed At POC-Glucose meter (09/18/2018 1:[address])Only the most recent of115 resultswithin the time period is included. POC-Glucose Meter 148 (H)Comment: TESTED AT 70 - 110 mg/dL [facility] [address] [place] [address] Specimen Blood Performing Organization Address City/State/Zipcode Phone Number [address] [phone] CENTER HEMODIALYSIS INPATIENT (09/18/2018 1:[address]) Narrative Performed At Elan Valdez RN 09/18/20181:07 [...] count + automated diff (09/18/2018 3:[address])Only the most recent of28 resultswithin the time period is included. WBC 7.8 3.5 - 10.5 K/L [facility] RBC 2.72 (L) 4.63 - 6.08 M/L [facility] Hemoglobin 8.9 (L) 13.7 - 17.5 GM/DL [facility] Hematocrit 27.9 (L) 40.1 - 51.0 % [facility] MCV 102.6 (H) 79.0 - 92.2 fL [facility] MCH 32.7 (H) 25.7 - 32.2 pg [facility] MCHC 31.9 (L) 32.3 - 36.5 GM/DL [facility] RDW 17.2 (H) 11.6 - 14.4 % [facility] Platelets 244 150 - 450 K/CU MM [facility] MPV 11.2 9.4 - 12.4 fL [facility] nRBC 0 0 - 0 /100 WBC [facility] % Neutros 62 % [facility] % Lymphs 19 % [facility] % Monos 10 % [facility] % Eos 7 % [facility] % Baso 1 % [facility] # Neutros 4.83 1.78 - 5.38 K/L [facility] # Lymphs 1.49 1.32 - 3.57 K/L [facility] # Monos 0.80 0.30 - 0.82 K/L [facility] # Eos 0.51 0.04 - 0.54 K/L [facility] # Baso 0.05 0.01 - 0.08 K/L [facility] Immature 1 0 - 1 % [facility] Specimen Blood Performing Organization Address City/State/Zipcode Phone Number [address] [address] CENTER Phosphorus (09/18/2018 3:[address])Only the most recent of27 resultswithin the time period is included. Phosphorus 3.2 2.3 - 4.7 mg/dL [facility] Specimen Blood Performing Organization Address City/[facility]/Zipcode Phone Number [address] [address] CENTER Magnesium (09/18/2018 3:[address])Only the most recent of28 resultswithin the time period is included. Magnesium 2.1 1.6 - 2.6 mg/dL [facility] Specimen Blood Performing Organization Address City/[facility]/Zipcode Phone Number [address] [address] [phone] [place] Basic Metabolic Panel (09/18/2018 3:[address])Only the most recent of20 resultswithin the time period is included. Sodium 136 136 - 145 meq/L [facility] Potassium 4.3 3.5 - 5.1 meq/L [facility] Chloride 97 (L) 98 - 107 meq/L [facility] CO2 27 22 - 29 meq/L [facility] BUN 43 (H) 7 - 21 mg/dL [facility] Creatinine 5.04 (H) 0.57 - 1.25 mg/dL [facility] Glucose 94 70 - 105 mg/dL [facility] Calcium 8.7 8.4 - 10.2 mg/dL [facility] EGFR 11Comment: ESTIMATED GFR IS mL/min/1.73 sq m [facility] NOT ACCURATE [facility] CLE[facility] IN PREDICTING GLOMERULAR FILTRATION RATE. ESTIMATED GFR IS NOT APPLICABLE FOR DIALYSIS PATIENTS. Specimen Blood Performing Organization Address City/State/Zipcode Phone Number [facility] [address] [place] [address] CENTER HEMODIALYSIS INPATIENT (09/16/2018 1:[address]) Narrative Performed At Skinny Montero RN 09/16/20181:50 [...] foot 3 views right (09/15/2018 8:[address])Only the most recent of3 resultswithin the time period is included. Specimen Narrative Performed At FINAL REPORT [facility] RIGHT FOOT 3 VIEWS HISTORY: [...] MD Report Verified Date/Time:09/15/2018 08:28:29 Reading Location: [address] Transitional Reading Room Procedure Note Interface, External Ris In - 09/15/2018 8:[address] FINAL REPORT RIGHT FOOT 3 VIEWS HISTORY: [...] Report Verified Date/Time: 09/15/2018 08:28:29 Reading Location: [address] Transitional Reading Room Performing Organization Address City/State/Zipcode Phone Number [facility] TRANSFUSION SERVICE REPORT - SCAN (09/14/2018 5:[address])Only the most recent of5 resultswithin the time period is included. Narrative Performed At Type and screen, automated (09/13/2018 8:[address])Only the most recent of3 resultswithin the time period is included. ABO/RH AUTOMATED (BEAKER) O POSITIVE [facility] Ab Scrn NEGATIVE [facility] Specimen Blood Performing Organization Address City/State/Zipcode Phone Number [facility] [address] [place] [address] Tissue Exam (09/13/2018 8:[address])Only the most recent of2 resultswithin the time period is included. Case Report Surgical Pathology Report Case: [id number] [facility] Authorizing Provider:Aba Millan DPMCollected: 09/13/2018 0820 [facility] Ordering Location: [facility] PERIOPERATIVE Received: 09/13/2018 0926 SERVICES Pathologist: Carrol Trammell MD Specimen:Metatarsal, Right DIAGNOSIS BONE, RIGHT FOOT , METATARSAL, DEBRIDEMENT: [facility] - GANGRENOUS NECROSIS [facility] - OSTEOMYELITIS - NEGATIVE FOR MALIGNANCY Signing Pathologist Direct Phone Line: [phone] CPT Code(s) [address] [facility] [address] [facility] CLINICAL HISTORY Nonhealing surgical wound [facility] SPECIMEN SOURCE Right metatarsal. [facility] GROSS DESCRIPTION Specimen is received in [facility] formalin-filled container [facility] labeled with the patient's information and labeled "right metatarsal" and consists of multiple fragments of ch hemorrhagic bone and soft tissue measuring 2.5 x 2 x 1 cm in aggregate. Specimen is sectioned and submitted entirely [id number] for decalcification. CG/bc MICROSCOPIC DESCRIPTION Performed. [facility] Specimen Tissue - Metatarsal, Right Performing Organization Address City/[facility]/Zipcode Phone Number [facility] [address] [place] [address] [phone] [place] Vitamin B12 and Folate (09/11/2018 10:[address]) Vitamin B12 1,098 (H) 213 - 816 pg/mL [facility] Folate 12.9 >=7.0 ng/mL [facility] Specimen Blood Performing Organization Address City/State/Zipcode Phone Number [facility] [address] [place] [address] [place] HEMODIALYSIS INPATIENT (09/11/2018 9:[address]) Narrative Performed At Lana Bales RN 09/11/2018 [...] Bales RN HEMODIALYSIS INPATIENT (09/09/2018 4:[address]) Narrative Performed At Lana Bales RN 09/09/20186:56 [...] RN Prepare Leuko-Red RBC (09/07/2018 11:[address])Only the most recent of2 resultswithin the time period is included. CROSSMATCH COMPATIBLE SAFETRACE TX Unit ABO O Pos SAFETRACE TX UNIT NUMBER [id number] SAFETRACE TX Status READY SAFETRACE TX Blood Bank Product RED BLOOD CELLS SAFETRACE TX PRODUCT CODE [id number] SAFETRACE TX CROSSMATCH COMPATIBLE SAFETRACE TX Unit ABO O Pos SAFETRACE TX UNIT NUMBER [id number] SAFETRACE TX Status TRANSFUSED SAFETRACE TX Blood Bank Product RED BLOOD CELLS SAFETRACE TX PRODUCT CODE [id number] SAFETR[employer] TX Specimen Other Performing Organization Address City/[facility] Phone Number SAFETRACE TX Fungus culture + smear (09/07/2018 9:[address])Only the most recent of3 resultswithin the time period is included. Result No fungus isolated in 28 days [facility] Fungus Smear No fungi seen [facility] Specimen Tissue Performing Organization Address [facility] Phone Number [address] [address] CENTER AFB culture + smear (09/07/2018 9:[address])Only the most recent of3 resultswithin the time period is included. Result No acid-fast bacilli isolated in [facility] 42 days [facility]ENTER [employer] Smear No acid fast bacilli seen [facility] Specimen Tissue Performing Organization Address [facility] [facility] [place] [address] [address] [place] Anaerobic culture (09/07/2018 9:[address])Only the most recent of3 resultswithin the time period is included. Result <1+ Same organism has been isolated from culture(s) of the same body site and collection date. Repeat identification performed only after consultation with the clinical microbiology laboratory. (A) [facility] Comment: MEDICAL CENTER Refer to previous culture of Bacteroides species, not fragilis Specimen Tissue Performing Organization Address [facility] [place] Phone Number [address] [address] C[place] Surgically obtained culture + gram stain (09/07/2018 9:[address])Only the most recent of3 resultswithin the time period is included. Result No growth [facility] Gram Stain Result <1+ WBCs [facility] Gram Stain Result No organisms seen [facility] Specimen Tissue Performing Organization Address City/[facility]/Zipcode Phone Number [address] [address] [phone] [place] Potassium (09/07/2018 4:[address]IVER)Only the most recent of2 resultswithin the time period is included. Potassium 4.1 3.5 - 5.1 meq/L [facility] Specimen Blood Performing Organization Address City/[facility]/Zipcode Phone Number [address] [address] [place] Transfuse Leuko-Red RBC (09/06/2018 5:[address]IVER)Only the most recent of3 resultswithin the time period is included.Blood culture (09/05/2018 10:[address] )Only the most recent of2 resultswithin the time period is included. Result No growth in 5 days [facility] Specimen Blood Performing Organization Address City/[facility]/Zipcode Phone Number [address] [address] [place] HEMODIALYSIS INPATIENT (09/04/2018 10:[address]) Narrative Performed At Josselin Sapp RN 09/04/2018 [...] Arterial doppler arm, left (09/03/2018 9:[address]IVER) Ejection [facility] ECHO [facility] Specimen Impressions Performed At [facility] ECHO HEARTLAB [facility] Left Impression 1. The subclavian, [...] At LAB - Upper Extremities Arterial Duplex [facility] Demographics Patient Name NADIR MENDEZ Date of Study09/03/2018 ANAYA [id number] [id number] Visit Number [id number] Male Accession Number [id number] of Birth1945 [facility] Arnold Khan [id number] Physician SonographerHeamarivel MartinezInterpreting Silvia Salamanca RVT PhysicianMD [...] External Ris In - 09/04/2018 8:[address] PV LAB - Upper Extremities Arterial Duplex Demographics Patient Name NADIR MENDEZ Date of Study 09/03/2018 ANAYA Age 73 Visit Number [id number] Gender Male Accession Number [id number] Date of 1945 Referring David Khan MD Room Number 1831 Physician Nurse Rn Bsn Kimberly Martinez Interpreting Silvia Salamanca T Physician [...] ! ! + +----+-----+----+--------+ Performing Organization Address City[facility] Phone Number [facility] ECHO [facility] Venous doppler arm, left (09/03/2018 9:[address]) Ejection Fraction [facility] Specimen Impressions Performed At [facility] Left Impression 1. There is no [...] At PV LAB - Upper Extremities Veins [facility] Demographics Patient Name NADIR MENDEZ Date of Study09/03/2018 ANAYA [id number] [id number] Visit Number [id number] Male Accession Number [id number] of Birth1945 Arnold Chapa Aheuni7751 Physician VuographerKimberly MartinezInterpreting Silvia Salamanca RVT PhysicianMD [...] External Ris In - 09/04/2018 8:[address] PV LAB - Upper Extremities Veins Demographics Patient Name NADIR MENDEZ Date of Study 09/03/2018 ANAYA Age 73 Visit Number [id number] Gender Male Accession Number [id number] Date of 1945 Referring David Khan MD Room Number 1831 Physician Nurse Rn Bsn Kimberly Martinez Interpreting Silvia Salamanca T Physician [...] City/State/Zipcode Phone Number [facility] Respiratory Panel [facility] (09/03/2018 12:[address]) Human Metapneumovirus Not detected Not detected, [facility] Rhinovirus Not detected Not detected, [facility] Influenza A Not detected Not detected, [facility] INFLUENZA A (NO SUBTYPE) Not detected, [facility] Influenza A subtype H1 Not detected, [facility] Influenza A Subtype H3 Not detected, [facility] Influenza A Subtype H1-2009 Not detected, [facility] Influenza B Not detected Not detected, [facility] Respiratory Syncytial Virus Not detected Not detected, [facility] Parainfluenza Virus 1 Not detected Not detected, [facility] Parainfluenza Virus 2 Not detected Not detected, [facility] Parainfluenza virus 3 Not detected Not detected, [facility] Parainfluenza Virus 4 Not detected Not detected, [facility] Adenovirus Not detected Not detected, [facility] Coronavirus 229E Not detected Not detected, [facility] Coronavirus HKU1 Not detected Not detected, [facility] Coronavirus NL63 Not detected Not detected, [facility] Coronavirus OC43 Not detected Not detected, [facility] Bordetella Pertussis Not detected Not detected, [facility] Chlamydophila Pneumoniae Not detected Not detected, [facility] Mycoplasma Pneumoniae Not detected Not detected, [facility] Specimen Nasopharyngeal Narrative Performed At Other viruses and bacteria not targeted by [facility] this PCR panel cannot be excluded; therefore clinical correlation and follow up of serology, culture results, and other molecular studies is required. The results are not intended to be used as the sole means for clinical diagnosis or patient management decisions. This sample was tested at the [facility] using the Ailvxing netArray Respiratory Panel. It is FDA cleared and has been verified and approved by the [facility] for clinical use on nasal swab specimens. It is not FDA-cleared for use on bronchial wash/lavage samples. However, for this sample type, validation was performed and test characteristics were determined and approved, by [facility] for clinical use under the Clinical Laboratory Improvement Amendments (CLIA) of 1988 requirements. Therefore, FDA clearance is not required.This laboratory is CLIA-certified and [employer] (CAP)-accredited to perform high complexity testing. Performing Organization Address [facility] Phone Number [address] [address] CENTER HEMODIALYSIS INPATIENT (09/02/2018 3:[address]) Narrative Performed At Holley Ram RN 09/02/20183:34 PM Dialyzed for 4 hrs. UF net 2L. Vss. Alert, oriented X3. Report given to Tod PHILIP. Iron, TIBC, % sat. (without ferritin) (09/02/2018 3:[address])Only the most recent of2 resultswithin the time period is included. Iron 55.0 40.0 - 160.0 ug/dL [facility] TIBC 148 (L) 250 - 450 ug/dL [facility] Iron % Saturation 37 20 - 55 % [facility] Specimen Blood Performing Organization Address [facility] Phone Number [address] [address] CENTER Ferritin (09/02/2018 3:[address])Only the most recent of2 resultswithin the time period is included. Ferritin 414 (H) 5 - 275 ng/mL [facility] Specimen Blood Performing Organization Address [facility] Phone Number [address] [address] [phone] CENTER Troponin I (08/31/2018 4:[address])Only the most recent of4 resultswithin the time period is included. Troponin I 0.07 (H) 0.00 - 0.03 ng/mL [facility] Specimen Blood Narrative Performed At Troponin I (TnI) levels must be interpreted [facility] in the context of the presenting symptoms [...] disease, and persistent tachyarrhythmia. Performing Organization Address City/[facility] Phone Number [address] [address] [place] ECG 12 lead (08/30/2018 5:[address]) Specimen Narrative Performed At Ventricular Rate 90 BPM GE MUSE Atrial Rate 90 BPM P-R Interval 152 ms QRS Duration 96 ms Q-T Interval 398 ms QTC Calculation(Bazett) 486 ms P Rockwell 16 degrees R Rockwell 104 degrees T Rockwell 26 degrees Sinus rhythm with occasional and consecutive Premature ventricular complexes Rightward axis Abnormal ECG No previous ECGs available Confirmed by MD FLAHERTY JORGE ([id number]) on 09/04/2018 12:55:42 PM Procedure Note Interface, External Ris In - 09/04/2018 12:[address] Ventricular Rate 90 BPM Atrial Rate 90 BPM P-R Interval 152 ms QRS Duration 96 ms Q-T Interval 398 ms QTC Calculation(Bazett) 486 ms P Rockwell 16 degrees R Rockwell 104 degrees T Rockwell 26 degrees Sinus rhythm with occasional and consecutive Premature ventricular complexes Rightward axis Abnormal ECG No previous ECGs available Confirmed by MD FLAHERTY JORGE ([id number]) on 09/04/2018 12:55:42 PM Performing Organization Address City/[facility] Phone Number [facility]entor MUSE POC ACTIVATED CLOTTING TIME (08/30/2018 11:[address])Only the most recent of3 resultswithin the time period is included. Activated Clotting Time 142Comment: TESTED AT sec [facility] [address] [place] [address] Specimen Blood Performing Organization Address [facility] Phone Number [address] [address] [place] Potassium-Stat Lab (08/30/2018 11:[address]) Potassium 4.0 3.6 - 5.5 meq/L [facility] Specimen Blood, Arterial Performing Organization Address City/[facility] Phone Number [address] [address] [phone] [place] Sodium Na-Stat Lab (08/30/2018 11:[address]) Sodium 130 (L) 135 - 148 meq/L [facility] Specimen Blood, Arterial Performing Organization Address [facility] [place] Phone Number [address] [address] [place] Glucose-Stat Lab (08/30/2018 11:[address]) Glucose 112 (H) 70 - 110 mg/dL [facility] Specimen Blood, Arterial Performing Organization Address [facility] Phone Number [address] [address] [place] HGB/HCT (H&H)-Stat Lab (08/30/2018 11:[address]) Hemoglobin 9.9 (L) 13.0 - 16.8 g/dL [facility] Hematocrit 29.0 (L) 40.0 - 50.0 % [facility] Specimen Blood, Arterial Performing Organization Address [facility] Phone Number [address] [address] [place] Blood gas, arterial (08/30/2018 11:[address]) pH, Arterial 7.43 7.35 - 7.45 [facility] pCO2, Arterial 41 35 - 45 mmHg [facility] pO2, Arterial 297 (H) 80 - 90 mmHg [facility] O2 Sat, Arterial 99.7 (H) 96.0 - 97.0 % [facility] HCO3, Arterial 27 21 - 29 mmol/L [facility] Base Excess, Arterial 2.0 -2.0 - 3.0 mmol/L [facility] Patient Temperature 35.1 C [facility] FIO2 100.0 % [facility] Specimen Blood, Arterial Performing Organization Address City/[facility] Phone Number [address] [address] [place] Calcium, Ionized (08/30/2018 2:[address])Only the most recent of2 resultswithin the time period is included. Calcium, Ion 1.07 (L) 1.12 - 1.27 mmol/L [facility] pH, Blood 7.43 [facility] Specimen Blood Performing Organization Address [facility] Phone Number [address] [address] [phone] [place] Prothrombin time/INR (08/30/2018 2:[address]) Protime 14.9 (H) 11.7 - 14.7 seconds [facility] INR 1.2 <=5.9 [facility] Specimen Blood Narrative Performed At RECOMMENDED COUMADIN/WARFARIN INR THERAPY [facility] RANGES STANDARD DOSE: 2.0 - 3.0 Includes: PROPHYLAXIS for venous thrombosis, systemic embolization; TREATMENT for venous thrombosis and/or pulmonary embolus. HIGH RISK: Target INR is 2.5-3.5 for patients with mechanical heart valves. Performing Organization Address City/[facility] Phone Number [address] [address] [place] HEMODIALYSIS INPATIENT (08/28/2018 12:[address]) Narrative Performed At Minda Fairbanks RN 08/28/2018 [...] Fairbanks RN HEMODIALYSIS INPATIENT (08/26/2018 12:[address]) Narrative Performed At Skinny Montero RN 08/26/2018 [...] RN Comprehensive metabolic panel (08/26/2018 6:[address])Only the most recent of2 resultswithin the time period is included. Protein, Total 6.5 6.0 - 8.3 gm/dL [facility] Albumin 2.4 (L) 3.5 - 5.0 g/dL [facility] Alkaline Phosphatase 78 40 - 150 U/L [facility] Total Bilirubin 0.4 0.2 - 1.2 mg/dL [facility] Sodium 129 (L) 136 - 145 meq/L [facility] Potassium 4.9 3.5 - 5.1 meq/L [facility] Chloride 93 (L) 98 - 107 meq/L [facility] CO2 26 22 - 29 meq/L [facility] BUN 50 (H) 7 - 21 mg/dL [facility] Creatinine 6.18 (H) 0.57 - 1.25 mg/dL [facility] Glucose 104 70 - 105 mg/dL [facility] Calcium 8.9 8.4 - 10.2 mg/dL [facility] AST 22 5 - 34 U/L [facility] ALT <6 (L) 6 - 55 U/L [facility] EGFR 9Comment: ESTIMATED GFR mL/min/1.[address] [facility] IS NOT ACCURATE [facility] CREATININE CLEARANCE IN PREDICTING GLOMERULAR FILTRATION RATE. ESTIMATED GFR IS NOT APPLICABLE FOR DIALYSIS PATIENTS. Specimen Blood Performing Organization Address City/State/Zipcode Phone Number [facility] [address] [place] [address] [phone] CENTER Vein Mapping Leg RIght (08/24/2018 4:[address]) Ejection Fraction [facility] Specimen Impressions Performed At Right Impression [facility]CHO [facility] 1. There is [...] PV LAB - Lower Extremities Vein Mapping [facility] Demographics Patient NameSNADIR QUIÑONES Date of Study 08/24/2018 ANAYA 73 Visit [id number] Male of 1945 Referring [facility] Room Number 1819 Physician Nurse Rn Bsn Jannet Soares RVT Physician Procedure Type of [...] External Ris In - 08/25/2018 5:[address] PV LAB - Lower Extremities Vein Mapping Demographics Patient Name NADIR MENDEZ Date of Study 08/24/2018 ANAYA Age 73 Visit Number [id number] Gender Male Accession Number [id number] Date of 1945 Referring [facility] Room Number 4339 Physician Nurse Rn Bsn Jannet Chang Interpreting Sherry Soares RVT Physician [...] Arterial doppler leg, right (08/24/2018 4:[address]) Ejection [facility] ECHO HEARTLAB [facility] Specimen Impressions Performed At Right Impression [facility] HEARTLAB [facility] 1. The common femoral and profunda femoral [...] + + + + + + !Prox SALES OFFICE MANAGER ! !53.4 !! ! + + + + + + !Mid SALES OFFICE MANAGER ! !0! ! ! + + + + + + !Dist SALES OFFICE MANAGER ! !0! ! ! + + + [...] PV LAB - Lower Extremity Arterial Duplex [facility] Demographics Patient NameSNADIR QUIÑONES Date of Study 08/24/2018 ANAYA 73 Visit [id number] Male of 1945 Referring [facility] Room Number 1819 Physician Nurse Rn Bsn Jannet Soares RVT Physician Procedure Type of [...] External Ris In - 08/25/2018 5:[address] PV LAB - Lower Extremity Arterial Duplex Demographics Patient Name NADIR MENDEZ Date of Study 08/24/2018 ANAYA Age 73 Visit Number [id number] Gender Male Accession Number [id number] Date of 1945 Referring [facility] Room Number 1819 Physician Nurse Rn Bsn Jannet Chang Interpreting Sherry Soares Neo Physician [...] + + + -------+ + + !Prox SALES OFFICE MANAGER ! !53.4 ! ! ! + + + -------+ + + !Mid SALES OFFICE MANAGER ! !0 ! ! ! + + + -------+ + + !Dist SALES OFFICE MANAGER ! !0 ! ! ! + + [...] + -------+ + + Performing Organization Address City/[facility]/Zipcode Phone Number [facility] Reticulocyte count (08/24/2018 3:[address]) % Retic 2.0 (H) 0.5 - 1.8 % [facility] Specimen Blood Performing Organization Address [facility]/Zipcode Phone Number [address] [phone] CENTER HEMODIALYSIS INPATIENT (08/23/2018 11:[address]) Narrative Performed At Holley Ram RN 08/23/2018 11:37 AM Dialyzed for 4hrs. UF net 2L. Vss. Alert, oriented x3. Report given to Maya PHILIP XR chest 1 view portable / bedside (08/22/2018 6:[address]) Specimen Narrative Performed At FINAL REPORT RIS [...] MD Report Verified Date/Time:08/22/2018 19:51:52 Reading Location: [address] Consult Reading Room Procedure Note Interface, External Ris In - 08/22/2018 7:[address] FINAL REPORT INDICATION: Cough COMPARISON: None. TECHNIQUE: [...] Report Verified Date/Time: 08/22/2018 19:51:52 Reading Location: [facility] C013 Consult Reading Room Performing Organization Address City/State/Zipcode Phone Number [facility] Hepatitis B surface antigen (08/22/2018 12:[address]) hepatitis B Surface Ag Nonreactive Nonreactive [facility] Specimen Blood Performing Organization Address City/State/Zipcode Phone Number [address] [address] CENTER PT/aPTT (08/22/2018 3:[address]) Protime 16.0 (H) 11.7 - 14.7 seconds [facility] INR 1.3 <=5.9 [facility] PTT 51.1 (H) 22.5 - 36.0 seconds [facility] Specimen Blood Narrative Performed At RECOMMENDED COUMADIN/WARFARIN INR THERAPY [facility] RANGES STANDARD DOSE: 2.0 - 3.0 Includes: PROPHYLAXIS for venous thrombosis, systemic embolization; TREATMENT for venous thrombosis and/or pulmonary embolus. HIGH RISK: Target INR is 2.5-3.5 for patients with mechanical heart valves. Performing Organization Address City/State/Zipcode Phone Number [facility] [address] [place] [phone] CENTER after 03/07/2018 Insurance Payer Benefit Plan / Group Subscriber ID Type Phone Address CARE IMPROVEMENT MEDICARE CARE IMPROVEMENT PLUS xxxxxxxxx [facility] MEDICAID MEDICAID OF [place] xxxxxxxxx Medicaid ([place]) [place] [address] Advance Directives Patient has advance care planning documents, and code status on file. For more information, please contact:[address] [phone] Code Status Date Activated Date Inactivated Comments Full Code 08/30/2018 5:03 PM This code status was determined by: Patient Full Code 08/22/2018 1:56 AM 08/30/2018 5:03 PM This code status was determined by: Patient Full Code 09/15/2017 11:54 PM 09/18/2017 7:40 AM This code status was determined by: Patient
--- OUTSIDE RECORDS SUMMARY | 2019-03-08 02:19 | XMS REPORT ---
[...] Start Date End Date Status Dosage Pravachol [facility] [id number] 40 MG Orally Once Active 1 tablet a day Results No Known Results Summary Purpose eClinicalWorks Submission
[2019-03-08] MEDS ORDERED: Levofloxacin500mg IV 500 MG/100 ML BAG IV ONE (02:42)
[2019-03-08] MEDS ORDERED: VANCOMYCIN 1 GM/VIAL ONE (02:42)
[2019-03-08] MEDS ORDERED: PIPER/TAZO/NS 3.375gm 3.375 GM/100 ML BAG ONE (02:42)
[2019-03-08] MEDS ORDERED: NA CHLORIDE 0.9% 2,000 ML ONE (02:42)
[2019-03-08] MEDS ORDERED: NA CHLORIDE 0.9% 250 ML ONE (02:42)
[2019-03-08 03:02] LABS: Absolute Lymphocytes (CBC) 0.9 K/uL (0.7-4.9); Basophils % 0.2 % (0-1.3); Eosinophils % 2.4 % (0-4.4); Hematocrit 40.6 % (39.6-49.0); Lymphocytes % 7.1 % (15.3-44.8); MPV 9.9 fL (7.6-11.3); Monocytes % 4.8 % (3.3-12.3); RBC Red Blood Cell Count 4.24 M/uL (4.33-5.43)
[2019-03-08 03:04] LABS: Protime INR 1.07
[2019-03-08 03:05] LABS: Arterial Blood Carboxyhemoglob 0.7 % (0-1.5); Blood Gas Oxyhemoglobin 89.6 % (94-97); Blood O2 Saturation 91.5 % (92-98.5)
[2019-03-08 03:14] LABS: AST/SGOT 27 U/L (15-37); Albumin 2.5 g/dL (3.4-5.0); Alkaline Phosphatase 110 U/L (45-117); BUN Blood Urea Nitrogen 56 mg/dL (7-18); Bicarbonate 25 mmol/L (21-32); Bilirubin Total 0.4 mg/dL (0.2-1.0); Glucose Level 77 mg/dL (74-106); Lipase 56 U/L (73-393); Potassium 4.7 mmol/L (3.5-5.1); Protein, Total 8.2 g/dL (6.4-8.2); Sodium Level 136 mmol/L (136-145); Troponin (Emerg Dept Use Only) 0.03 ng/mL (0.0-0.045)
[2019-03-08 03:15] LABS: ALT/SGPT < 6 U/L (12-78)
[2019-03-08 04:04] LABS: Urine Blood NEGATIVE (NEG); Urine Glucose NEGATIVE (NEG); Urine Protein 3+ (NEG)
[2019-03-08 04:10] LABS: Urine Bacteria >50 /HPF (NONE SEEN); Urine Culture Reflex Order REFLEXED
[2019-03-08 04:25] LABS: Blood Morphology Comment NOT SEEN (NOT SEEN); Platelet Estimate ADEQ
--- NOTE | 2019-03-08 04:31 | ER ---
Nurse's Notes [facility] Name: Nadir Mendez Age: 73 yrs Sex: Male : 1945 Arrival Date: 03/08/2019 Time: 02:19 Bed 3 Private MD: Diagnosis: Toxic metabolic encephalopathy;RLL pneumonia;Sepsis;UTI;Decubitus ulcer Presentation: 03/08 02:19 Presenting complaint: EMS states: Pt coming from [facility], [place] [facility] staff reports pt was altered and O2 sats were 77% on 3 L of O2. Pt was placed on non rebreather, O 2 sats on non rebreather increased to 94%. Facility staff reports pt went to dialysis two days ago. 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 Transition of care: patient was received from another setting of care (long-term care facility), [facility]. Onset of symptoms was March 08, 2019. Risk Assessment: Do you want to hurt yourself or someone else? Patient reports no desire to harm self or others. Initial Sepsis Screen: Does the patient meet any 2 criteria? Altered Mental Status. HR > 90 bpm. Yes Does the patient have a suspected source of infection? Yes: Skin breakdown/wound If YES to both, name of provider notified: Santhosh Fu MD Care prior to arrival: Non rebreather per EMS, 20 G to RAC. 02:19 Method Of Arrival: EMS: [facility] ea 02:19 Acuity: ASTER 2 ea Historical: - Allergies: 02:41 No Known Allergies; ea - Home Meds: 02:41 acetaminophen-codeine 300-30 mg Oral tab 1 tab twice a day for Pain [Active]; aspirin ea 81 mg Oral TbEC [Active]; aspirin 81 mg Oral TbEC 1 tab once daily [Active]; carbidopa-levodopa 25-100 mg Oral tab twice a day [Active]; clopidogrel 75 mg Oral tab 1 tab nightly [Active]; famotidine 20 mg Oral tab 1 tab once daily [Active]; gabapentin 100 mg Oral cap twice a day for Neuropathic Pain [Active]; lactulose 20 gram/30 mL Oral soln 30 mL once daily [Active]; Lantus 100 unit/mL Sub-Q soln 20 unit daily [Active]; Lyrica 75 mg Oral 2 times per day [Active]; pravastatin 40 mg Oral tab 1 tab nightly [Active]; Proteinex 15-60 gram-kcal/30 mL oral liqd [Active]; renal-jenna 0.8mg 1 tab with meals [Active]; Renvela 800 mg oral tab 1 tab 3 times per day [Active]; sertraline 75 mg Oral tab 1 tab once daily [Active]; acetaminophen 325 mg Oral tab [Active]; Vitamin C 500 mg Oral cpER [Active]; zinc sulfate 220 mg Oral tab daily [Active]; - PMHx: 02:41 Ulcers; Renal Disease; Tues, Thurs, Sat; PVD; Parkinson's; Pancreatitis; neuropathy; ea Hypertension; Hyperlipidemia; Hepatitis; GERD; Dialysis; Diabetes - NIDDM; Depression; Anemia; Alzheimers; - Immunization history:: Adult Immunizations up to date. - Social history:: Smoking status: unknown. - Ebola Screening: : Unable to complete screening because. Screenin:43 Nutritional screening: No deficits noted. Tuberculosis screening: No symptoms or risk ea factors identified. Fall Risk IV access (20 points). 02:52 Abuse screen: Denies threats or abuse. tl2 Assessment: 02:52 General: Appears distressed, uncomfortable, Behavior is listless. Pain: Unable to use tl2 pain scale. Patient is disoriented. Neuro: Level of Consciousness is lethargic, obtunded, Oriented to person, Reaction to noxious stimuli is withdrawal. Respiratory: Airway is patent Respiratory effort is labored, Respiratory pattern is tachypnea Breath sounds with crackles bilaterally. the patient has moderate shortness of breath. GI: No signs and/or symptoms were reported involving the gastrointestinal system. : Dialysis pt, only urinates twice a day. Derm: Skin is pale. 03:15 Reassessment: Unable to obtain Blood cultures. Awaiting inside lab. Will administer tl2 antibiotics after BC are collected. 04:00 Reassessment: notified of elevated temp, no new orders. tl2 05:00 Reassessment: Patient appears in no apparent distress at this time. PT appears more tl2 alert, family at bedside. 05:46 Reassessment: Dr. Ceballos notified of decreased BP, new order received for additional tl2 liter of NS. Will document in [employer]. 07:29 Reassessment: Pt cleaned of bowel incontinence. sv Vital Signs: 02:42 BP 126 / 85; Pulse 124; Resp 22; Temp 99.2; Pulse Ox 98% on Non-rebreather mask; Weight ea 72.57 kg; Height 5 ft. 5 in. (165.10 cm); 03:14 BP 144 / 81; Pulse 124; Resp 24; Temp 99.7(C); Pulse Ox 99% on 2 lpm NC; tl2 03:49 BP 138 / 91; Pulse 117; Resp 24; Temp 100.4(C); Pulse Ox 97% on 2 lpm NC; tl2 05:00 BP 93 / 56; Pulse 107; Resp 22; Pulse Ox 93% on 2 lpm NC; tl2 05:15 BP 83 / 54; Pulse 101; Resp 22; Temp 100.3(C); Pulse Ox 95% on 2 lpm NC; tl2 05:30 BP 72 / 49; Pulse 93; Resp 22; Pulse Ox 96% on 2 lpm NC; tl2 05:46 BP 91 / 57; Pulse 92; Resp 22; Temp 99.9(C); Pulse Ox 93% on 2 lpm NC; tl2 06:01 BP 110 / 56; Pulse 89; Resp 15; Pulse Ox 98% on 2 lpm NC; tl2 06:30 BP 119 / 62; Pulse 85; Resp 16; Temp 99.6(C); Pulse Ox 97% on 2 lpm NC; tl2 07:00 BP 91 / 37; Pulse 79; Resp 18; Temp 98.9; Pulse Ox 94% on 2 lpm NC; tl2 07:02 BP 79 / 36; Pulse 78; Resp 13; Pulse Ox 92% 4 lpm ; sv 07:29 BP 156 / 98; Pulse 98; Resp 13; Pulse Ox 96% 4 lpm ; sv 07:40 BP 173 / 81; Pulse 91; Resp 14; Pulse Ox 97% 4 lpm ; sv 07:45 BP 185 / 78; Pulse 94; Resp 12; Pulse Ox 97% 4 lpm ; sv 07:50 BP 184 / 80; Pulse 94; Resp 14; Pulse Ox 97% on 4 lpm NC; sv 07:52 BP 184 / 80; Pulse 93 MON; Resp 14; Temp 98.3(C); Pulse Ox 96% on 4 lpm NC; sv 08:00 BP 164 / 73; Pulse 94; Resp 14; Pulse Ox 97% on 4 lpm NC; sv 08:15 BP 164 / 77; Pulse 93; Resp 12; Temp 98.4(C); Pulse Ox 97% 4 lpm ; sv 08:25 BP 139 / 73; Pulse 89; Resp 11; Temp 98.5; Pulse Ox 98% on 4 lpm NC; sv 08:35 BP 135 / 72; Pulse 88; Resp 14; Temp 98.5(C); Pulse Ox 97% on 4 lpm NC; sv 02:42 Body Mass Index 26.63 (72.57 kg, 165.10 cm) ea 07:52 Sinus Rhythm sv [place] Coma Score: 02:45 Eye Response: to voice(3). Verbal Response: confused(4). Motor Response: localizes tl2 pain(5). Total: 12. ED Course: 02:19 Patient arrived in ED. ea 02:19 Santhosh Fu MD is Attending Physician. ps1 02:27 Triage completed. ea 02:27 Patient has correct armband on for positive identification. Bed in low position. Call ea light in reach. Side rails up X2. 02:27 Arm band placed on right wrist. Patient placed in an exam room, on a stretcher, on ea oxygen, on classroom monitor, on pulse oximetry. 02:35 Chest Single View XRAY In Process Unspecified. EDMS 02:43 Maintain EMS IV. Dressing intact. Good blood return noted. Site clean \T\ dry. Gauge \T\ ea site: 20 G to RAC. 02:52 Doreen Gallego RN is Primary Nurse. tl2 02:52 Initial lab(s) drawn, by me, sent to lab. EKG done, by ED staff, reviewed by Santhosh Fu MD. 03:13 Gilliam cath inserted, using sterile technique, 16 Fr., by me, balloon inflated, to tl2 gravity drainage, urine specimen collected. returned cloudy urine. Patient tolerated well. 04:30 Cassidy Hunter MD is Hospitalizing Provider. ps1 07:23 Radiology exam delayed due to nurse to call when pt is ready. pt getting central line ls3 at this time. 07:39 Assisted provider with central line placement. Set up central line tray. Triple lumen tl2 line placed in right femoral. Line placed by Cassidy Hunter MD Placement verified by blood return, Dressed with Tegaderm. 08:18 CT Head Brain wo Cont Sent. sv 08:37 Patient admitted, IV remains in place. intact. sv 08:59 Glucose, Ancillary Testing Sent. sv Administered Medications: 02:43 Drug: NS 0.9% (30 ml/kg) 30 ml/kg Route: IV; Rate: bolus; Site: right antecubital; tl2 04:32 Follow up: IV Status: Completed infusion; IV Intake: 2177ml tl2 03:31 Drug: Zosyn 3.375 grams Route: IVPB; Infused Over: 60 mins; Site: right hand; tl2 04:25 Follow up: IV Status: Completed infusion; IV Intake: 100ml tl2 04:27 Drug: LevaQUIN 500 mg Volume: 100 ml; Route: IVPB; Infused Over: 60 mins; Site: right tl2 antecubital; 05:30 Follow up: IV Status: Completed infusion; IV Intake: 100ml tl2 05:42 Drug: vancoMYCIN 500 mg Route: IVPB; Infused Over: 1 hrs; Site: right antecubital; tl2 07:20 Follow up: Response: No adverse reaction; IV Status: Completed infusion; IV Intake: sv 250ml Point of Care Testing: Blood Glucose: 02:44 Blood Glucose: 91 mg/dL; tl2 Ranges: Intake: 04:25 IV: 100ml; Total: 100ml. tl2 04:32 IV: 2177ml; Total: 2277ml. tl2 05:30 IV: 100ml; Total: 2377ml. tl2 07:20 IV: 250ml; Total: 2627ml. sv Output: 06:08 Urine: 200ml (Gilliam); Total: 200ml. tl2 Outcome: 04:31 Decision to Hospitalize by Provider. ps1 07:40 critical tl2 08:36 Admitted to ICU accompanied by nurse, accompanied by tech, family with patient, via sv stretcher, room 1, with oxygen, on monitor, with chart, Report called to Sena PHILIP 08:36 Instructed on the need for admit. 09:00 Patient left the ED. sv Signatures: Dispatcher [employer] Jennifer Kearns RN RN Doreen Gallego RN RN tl2 Josefina Burns RN RN Santhosh Barbosa MD MD ps1 Siler, Lynzie ls3 Corrections: (The following items were deleted from the chart) 02:29 02:19 Presenting complaint: EMS states: Pt coming from [facility], [place] [facility] staff reports pt was altered and O2 sats were low. Pt was placed on non rebreather, O 2 sats on non rebreather were 94%. Facility staff reports pt went to dialysis two days ago. 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 ea 04:32 04:31 IV Status: Completed infusion; IV Intake: 2000ml tl2 tl2 05:58 05:15 BP 83 / 54; Pulse 101bpm; Resp 22bpm; Pulse Ox 95% 2 lpm Nasal Cannula; tl2 tl2 05:58 05:30 BP 72 / 49; Pulse 93bpm; Resp 22bpm; Pulse Ox 96% 2 lpm Nasal Cannula; Temp tl2 100.3F; tl2 05:58 05:46 BP 91 / 57; Pulse 92bpm; Resp 22bpm; Pulse Ox 93% 2 lpm Nasal Cannula; tl2 tl2 09:00 08:35 BP 135 / 72; Pulse 88bpm; Resp 10bpm; Pulse Ox 97% 4 lpm Nasal Cannula; Temp sv 98.5F Catheter; sv
--- NOTE | 2019-03-08 04:32 | EDPHYS ---
Physician Documentation [facility] Name: Nadir Mendez Age: 73 yrs Sex: Male : 1945 Arrival Date: 03/08/2019 Time: 02:19 Bed 3 Private MD: ED Physician Santhosh Fu HPI: 03/08 02:47 This 73 yrs old Male presents to ER via EMS with complaints of Altered Mental ps1 Status. 02:47 patient BIBEMS 2/2 AMS, SOB, fever per EMS 102. Dialysis patient. Goes TTS. Diabetic, ps1 chronic decub and heel ulcer. right foot amputation. On intermittent O2 at senior living. Patient providing no history. Alert to voice and commands. . Historical: - Allergies: 02:41 No Known Allergies; ea - Home Meds: 02:41 acetaminophen-codeine 300-30 mg Oral tab 1 tab twice a day for Pain [Active]; aspirin ea 81 mg Oral TbEC [Active]; aspirin 81 mg Oral TbEC 1 tab once daily [Active]; carbidopa-levodopa 25-100 mg Oral tab twice a day [Active]; clopidogrel 75 mg Oral tab 1 tab nightly [Active]; famotidine 20 mg Oral tab 1 tab once daily [Active]; gabapentin 100 mg Oral cap twice a day for Neuropathic Pain [Active]; lactulose 20 gram/30 mL Oral soln 30 mL once daily [Active]; Lantus 100 unit/mL Sub-Q soln 20 unit daily [Active]; Lyrica 75 mg Oral 2 times per day [Active]; pravastatin 40 mg Oral tab 1 tab nightly [Active]; Proteinex 15-60 gram-kcal/30 mL oral liqd [Active]; renal-jenna 0.8mg 1 tab with meals [Active]; Renvela 800 mg oral tab 1 tab 3 times per day [Active]; sertraline 75 mg Oral tab 1 tab once daily [Active]; acetaminophen 325 mg Oral tab [Active]; Vitamin C 500 mg Oral cpER [Active]; zinc sulfate 220 mg Oral tab daily [Active]; - PMHx: 02:41 Ulcers; Renal Disease; Tues, Thurs, Sat; PVD; Parkinson's; Pancreatitis; neuropathy; ea Hypertension; Hyperlipidemia; Hepatitis; GERD; Dialysis; Diabetes - NIDDM; Depression; Anemia; Alzheimers; - Immunization history:: Adult Immunizations up to date. - Social history:: Smoking status: unknown. - Ebola Screening: : Unable to complete screening because. ROS: 02:47 Unable to obtain ROS due to altered mental status. ps1 Exam: 02:47 Head/Face: Normocephalic, atraumatic. Eyes: Pupils equal round and reactive to light, ps1 extra-ocular motions intact. Lids and lashes normal. Conjunctiva and sclera are non-icteric and not injected. Chest/axilla: Normal chest wall appearance and motion. Nontender with no deformity. No lesions are appreciated. 02:47 Abdomen/GI: Soft, non-tender, with normal bowel sounds. No distension or tympany. No guarding or rebound. No evidence of tenderness throughout. 02:47 Constitutional: The patient appears listless, obviously ill. 02:47 Cardiovascular: Rate: tachycardic, Rhythm: regular, Pulses: no pulse deficits are appreciated, has AV fistula in left arm. 02:47 Respiratory: mild respiratory distress is noted, Respirations: labored breathing, shallow respirations, Breath sounds: bronchial sounds, rhonchi, that are moderate, are located in both bases. 02:47 Musculoskeletal/extremity: Extremities: grossly normal except: noted in the right foot: amputation. 02:47 Skin: decubitus 3/4 on buttocks. left heel decubitus. Vital Signs: 02:42 BP 126 / 85; Pulse 124; Resp 22; Temp 99.2; Pulse Ox 98% on Non-rebreather mask; Weight ea 72.57 kg; Height 5 ft. 5 in. (165.10 cm); 03:14 BP 144 / 81; Pulse 124; Resp 24; Temp 99.7(C); Pulse Ox 99% on 2 lpm NC; tl2 03:49 BP 138 / 91; Pulse 117; Resp 24; Temp 100.4(C); Pulse Ox 97% on 2 lpm NC; tl2 05:00 BP 93 / 56; Pulse 107; Resp 22; Pulse Ox 93% on 2 lpm NC; tl2 05:15 BP 83 / 54; Pulse 101; Resp 22; Temp 100.3(C); Pulse Ox 95% on 2 lpm NC; tl2 05:30 BP 72 / 49; Pulse 93; Resp 22; Pulse Ox 96% on 2 lpm NC; tl2 05:46 BP 91 / 57; Pulse 92; Resp 22; Temp 99.9(C); Pulse Ox 93% on 2 lpm NC; tl2 06:01 BP 110 / 56; Pulse 89; Resp 15; Pulse Ox 98% on 2 lpm NC; tl2 06:30 BP 119 / 62; Pulse 85; Resp 16; Temp 99.6(C); Pulse Ox 97% on 2 lpm NC; tl2 07:00 BP 91 / 37; Pulse 79; Resp 18; Temp 98.9; Pulse Ox 94% on 2 lpm NC; tl2 07:02 BP 79 / 36; Pulse 78; Resp 13; Pulse Ox 92% 4 lpm ; sv 07:29 BP 156 / 98; Pulse 98; Resp 13; Pulse Ox 96% 4 lpm ; sv 07:40 BP 173 / 81; Pulse 91; Resp 14; Pulse Ox 97% 4 lpm ; sv 07:45 BP 185 / 78; Pulse 94; Resp 12; Pulse Ox 97% 4 lpm ; sv 07:50 BP 184 / 80; Pulse 94; Resp 14; Pulse Ox 97% on 4 lpm NC; sv 07:52 BP 184 / 80; Pulse 93 MON; Resp 14; Temp 98.3(C); Pulse Ox 96% on 4 lpm NC; sv 08:00 BP 164 / 73; Pulse 94; Resp 14; Pulse Ox 97% on 4 lpm NC; sv 08:15 BP 164 / 77; Pulse 93; Resp 12; Temp 98.4(C); Pulse Ox 97% 4 lpm ; sv 08:25 BP 139 / 73; Pulse 89; Resp 11; Temp 98.5; Pulse Ox 98% on 4 lpm NC; sv 08:35 BP 135 / 72; Pulse 88; Resp 14; Temp 98.5(C); Pulse Ox 97% on 4 lpm NC; sv 02:42 Body Mass Index 26.63 (72.57 kg, 165.10 cm) ea 07:52 Sinus Rhythm sv [place] Coma Score: 02:45 Eye Response: to voice(3). Verbal Response: confused(4). Motor Response: localizes tl2 pain(5). Total: 12. MDM: 03:10 Patient medically screened. ps1 04:31 Data reviewed: vital signs, nurses notes, lab test result(s), radiologic studies, and ps1 as a result, I will admit patient. ED course: patient is on dialysis and appears to have some pulmonary edema. Detrimental to patient to fluid bolus per protocol. . 03/08 02:22 Order name: Blood Culture Adult (2) ps1 03/08 02:22 Order name: CBC with Diff ps1 03/08 02:22 Order name: Lactate ps1 03/08 02:22 Order name: Lipase; Complete Time: 03:29 ps1 03/08 02:22 Order name: Procalcitonin; Complete Time: 04:33 ps1 03/08 02:22 Order name: Protime (+inr); Complete Time: 03:10 ps1 03/08 02:22 Order name: Ptt, Activated; Complete Time: 03:10 ps1 03/08 02:22 Order name: Troponin (emerg Dept Use Only); Complete Time: 03:29 ps1 03/08 02:22 Order name: Urine Microscopic Only; Complete Time: 04:13 ps1 03/08 02:22 Order name: CMP; Complete Time: 03:29 ps1 03/08 02:22 Order name: Blood Culture EDMS 03/08 02:23 Order name: CBC with Automated Diff; Complete Time: 04:29 EDMS 03/08 02:23 Order name: Lactate; Complete Time: 03:42 EDMS 03/08 02:44 Order name: Glucose, Ancillary Testing; Complete Time: 03:10 EDMS 03/08 02:22 Order name: Chest Single View XRAY ps1 03/08 02:22 Order name: Accucheck; Complete Time: 02:22 [facility] 03/08 02:22 Order name: Cardiac monitoring; Complete Time: 02:22 ps1 03/08 02:22 Order name: EKG - Nurse/Tech; Complete Time: 02:22 [facility] 03/08 02:45 Order name: Glucose, Ancillary Testing EDNE 03/08 03:04 Order name: ABG Arterial Blood Gas; Complete Time: 03:10 EDMS 03/08 03:08 Order name: Manual Differential; Complete Time: 04:29 EDMS 03/08 03:17 Order name: Urine Dipstick--Ancillary (enter results); Complete Time: 04:07 mw2 03/08 04:11 Order name: Urine Culture EDNE 03/08 05:06 Order name: Sputum Culture tl2 03/08 06:55 Order name: CT Head Brain wo Cont ps1 03/08 08:09 Order name: CT; Complete Time: 08:29 EDMS 03/08 02:22 Order name: IV Saline Lock - Large Bore; Complete Time: 02:23 ps1 03/08 02:22 Order name: Labs collected and sent; Complete Time: 02:23 ps1 03/08 02:22 Order name: O2 Per Protocol; Complete Time: 02:23 ps1 03/08 02:22 Order name: O2 Sat Monitoring; Complete Time: 02:23 ps1 03/08 02:22 Order name: Urine Dipstick-Ancillary (obtain specimen); Complete Time: 03:13 ps1 03/08 02:51 Order name: Gilliam; Complete Time: 03:13 tl2 Administered Medications: 02:43 Drug: NS 0.9% (30 ml/kg) 30 ml/kg Route: IV; Rate: bolus; Site: right antecubital; tl2 04:32 Follow up: IV Status: Completed infusion; IV Intake: 2177ml tl2 03:31 Drug: Zosyn 3.375 grams Route: IVPB; Infused Over: 60 mins; Site: right hand; tl2 04:25 Follow up: IV Status: Completed infusion; IV Intake: 100ml tl2 04:27 Drug: LevaQUIN 500 mg Volume: 100 ml; Route: IVPB; Infused Over: 60 mins; Site: right tl2 antecubital; 05:30 Follow up: IV Status: Completed infusion; IV Intake: 100ml tl2 05:42 Drug: vancoMYCIN 500 mg Route: IVPB; Infused Over: 1 hrs; Site: right antecubital; tl2 07:20 Follow up: Response: No adverse reaction; IV Status: Completed infusion; IV Intake: sv 250ml Point of Care Testing: Blood Glucose: 02:44 Blood Glucose: 91 mg/dL; tl2 Ranges: Critical Glucose Levels:Adult <50 mg/dl or >400 mg/dl <40 mg/dl or >180 mg/dl Disposition: 03/08/19 04:31 Hospitalization ordered by Cassidy Hunter for Inpatient Admission. Preliminary diagnosis are Toxic metabolic encephalopathy, RLL pneumonia, Sepsis, UTI, Decubitus ulcer. - Bed requested for Intensive Care Unit. - Status is Inpatient Admission. sv - Condition is Serious. - Problem is new. - Symptoms are unchanged. UTI on Admission? Yes Signatures: Dispatcher [employer] Jennifer Kearns RN RN Deep Herzog MD MD rn Garcia, Cindy, RN RN cg Doreen Gallego RN RN tl2 Josefina Burns, RN RN Santhosh Barbosa MD MD ps1 Corrections: (The following items were deleted from the chart) 04:33 04:31 Hospitalization Ordered by Cassidy Hunter MD for Inpatient Admission. Preliminary ps1 diagnosis is Toxic metabolic encephalopathy; RLL pneumonia; Sepsis; UTI; Decubitus ulcer. Bed requested for Telemetry/MedSurg (Inpatient). Status is Inpatient Admission. Condition is Serious. Problem is new. Symptoms are unchanged. UTI on Admission? Yes. ps1 06:40 04:33 03/08/2019 04:31 Hospitalization Ordered by Cassidy Hunter MD for Inpatient cg Admission. Preliminary diagnosis is Toxic metabolic encephalopathy; RLL pneumonia; Sepsis; UTI; Decubitus ulcer. Bed requested for Intensive Care Unit. Status is Inpatient Admission. Condition is Serious. Problem is new. Symptoms are unchanged. UTI on Admission? Yes. ps1 09:00 06:40 03/08/2019 04:31 Hospitalization Ordered by Cassidy Hunter MD for Inpatient sv Admission. Preliminary diagnosis is Toxic metabolic encephalopathy; RLL pneumonia; Sepsis; UTI; Decubitus ulcer. Bed requested for Intensive Care Unit. Status is Inpatient Admission. Condition is Serious. Problem is new. Symptoms are unchanged. UTI on Admission? Yes.
--- NOTE | 2019-03-08 05:23 | P.HP ---
Certification for Inpatient Patient admitted to: Inpatient With expected LOS: >2 Midnights Practitioner: I am a practitioner with admitting privileges, knowledge of patient current condition, hospital course, and medical plan of care. Services: Services provided to patient in accordance with Admission requirements found in Title 42 Section 412.3 of the Code of Federal Regulations Patient History Date of Service: 03/08/19 Reason for admission: sepsis, pneumonia History of Present Illness: Mr Mendez is a 73 years old male with history of DM II s/p right BKA, HTN, ESRD on HD, Parkinson's disease, resident of a residential, who started yesterday with SOB and altered mental status. He was on respiratory distress, O2 sat was 77% on 3L on O2 by NC. He was placed on NR mask increasing O2 sat to 94%. No reported history of fever. Lab work in ER remarkable for leukocytosis, elevated procalcitonin, normal lactate. CXR shows right base infiltrate, awaiting radiology report. The patient is obtunded, with audible respiratory secretion, not able to follow commands. Allergies No Known Drug Allergies Allergy (Verified 07/24/18 10:49) Unknown Home medications list reviewed: Yes Home Medications: Gabapentin [Neurontin*] 100 mg PO BID 12/31/12 Pravastatin [Pravachol*] 40 mg PO BEDTIME 12/31/12 Citalopram [Celexa*] 10 mg PO BEDTIME 04/15/16 Carbidopa/Levodopa [Carbidopa-Levo 25-100 mg Odt] 1 tab PO BID 09/12/16 Pregabalin [Lyrica] 75 mg PO DAILY 05/25/18 Sertraline HCl 50 mg PO DAILY 90 Days #90 tablet 08/07/18 Cilostazol 100 mg PO BID 08/20/18 Clopidogrel Bisulfate [Plavix] 75 mg PO BEDTIME 08/20/18 Amlodipine [Norvasc] 2.5 mg PO DAILY 10/14/18 Ascorbic Acid [Vitamin C] 500 mg PO BID 10/14/18 Aspirin [Adult Low Dose Aspirin EC] 81 mg PO DAILY 10/14/18 Folic Acid/Vit Bcomp,C [Renal Vitamin Tablet] 0.8 mg PO DAILY 10/14/18 Heparin [Heparin 5,000 units/mL] 5,000 unit SQ Q8H 10/14/18 Insulin Detemir [Levemir] 10 units SQ BEDTIME 10/14/18 Metoprolol Tartrate [Lopressor] 25 mg PO BID 10/14/18 Nepro Shake [Nepro*] 237 ml PO BID 10/14/18 Pantoprazole [Protonix Tab] 40 mg PO BREAKFAST 10/14/18 Sevelamer Carbonate 800 mg PO TID 10/14/18 Zinc Sulfate [Zinc Sulfate*] 220 mg PO DAILY 10/14/18 - Past Medical/Surgical History Diabetic: Yes -: Hypertension -: Neuropathy -: Hyperlipidemia -: ESRD -: DM -: DDD/DJD of the spine -: Anemia of chronic disease -: Hepatitis C -: History of pancreatitis -: Dialysis stent -: LLE Stent -: Right foot sx r/t fx -: vein procedure on r femoral Psychosocial/ Personal History: has recently. - Family History Mother -: Diabetes Father -: Diabetes - Social History Smoking Status: Unknown if ever smoked Alcohol use: No CD- Drugs: No Caffeine use: Yes Place of Residence: Retirement Review of Systems 10-point ROS is otherwise unremarkable Physical Examination - Physical Exam General: Mild distress (SOB), Other (obtunded) HEENT: Atraumatic, PERRLA, Mucous membr. moist/pink, EOMI, Sclerae nonicteric Neck: Supple, 2+ carotid pulse no bruit, No LAD, Without JVD or thyroid abnormality Respiratory: Diminished, Crackles/rales (bibasilar, more on the right side) Cardiovascular: Regular rate/rhythm, Normal S1 S2 Gastrointestinal: Normal bowel sounds, No tenderness Musculoskeletal: No tenderness Integumentary: No rashes Neurological: Normal strength at 5/5 x4 extr, Normal tone, Normal affect Lymphatics: No axilla or inguinal lymphadenopathy - Studies Laboratory Data (last 24 hrs) 03/08/19 02:30: PT 12.6 H, INR 1.07, APTT 31.9 03/08/19 02:30: Sodium 136, Potassium 4.7, BUN 56 H, Creatinine 4.57 H, Glucose 77, Total Bilirubin 0.4, AST 27, ALT < 6 L, Alkaline Phosphatase 110, Lipase 56 L 03/08/19 02:30: WBC 12.8 H, Hgb 13.2 L, Hct 40.6, Plt Count 202 Assessment and Plan - Problems (Diagnosis) (1) Acute respiratory failure Current Visit: Yes Status: Acute Qualifiers: Respiratory failure complication: hypoxia Qualified Code(s): J96.01 - Acute respiratory failure with hypoxia (2) Pneumonia Current Visit: Yes Status: Acute Qualifiers: Pneumonia type: aspiration pneumonia Aspiration pneumonia type: unspecified Laterality: right Lung location: lower lobe of lung Qualified Code(s): J69.0 - Pneumonitis due to inhalation of food and vomit (3) ESRD (end stage renal disease) on dialysis Current Visit: Yes Status: Acute (4) Diabetes mellitus Onset Date: 09/13/16 Current Visit: No Status: Chronic (5) Sepsis Onset Date: 09/13/16 Current Visit: No Status: Ruled-out Qualifiers: Sepsis type: sepsis due to unspecified organism Qualified Code(s): A41.9 - Sepsis, unspecified organism - Plan The patient will be admitted to the hospital due to sepsis, acute respiratory failure due to right lower lobe pneumonia, possible aspiration. Will order broad spectrum, blood and respiratory culture in process. Consult Nephrology for HD orders. Will place the patient in ICU for close monitoring. - Advance Directives Does patient have a Living Will: No Does patient have a Durable POA for Healthcare: No - Code Status/Comfort Care Code Status Assessed: Yes Code Status: Full Code Critical Care: Yes (30 minutes critical care management) Time Spent Managing Pts Care (In Minutes): 30
[2019-03-08] MEDS ORDERED: ALBUTEROL 2.5 MG/3 ML NEB SOL NEB PRN (05:37)
[2019-03-08] MEDS ORDERED: IPRATROPIUM BROM 0.5MG/2.5ML NEB PRN (05:37)
[2019-03-08] MEDS ORDERED: ONDANSETRON 4 MG/2 ML VIAL IV PRN (05:37)
[2019-03-08] MEDS ORDERED: NA CHLORIDE 0.9% 1,000 ML IV ONE (05:47)
[2019-03-08] MEDS ORDERED: NA CHLORIDE 0.9% 1,000 ML ONE (05:53)
[2019-03-08] MEDS ORDERED: NA CHLORIDE 0.9% 1,000 ML IV SCH (06:00)
[2019-03-08] MEDS ORDERED: VANCOMYCIN 1 GM in NA CHLORIDE 0.9% 500 ML IVPB SCH (06:00)
[2019-03-08] MEDS ORDERED: INSULIN -REGULAR HUMAN 50 UNIT/0.5 ML ML SQ SCH (06:00)
[2019-03-08] MEDS ORDERED: NS 0.9% VIAL 30 ML ONE (07:10)
[2019-03-08] MEDS ORDERED: D5W 250 ML IV ONE (07:20)
[2019-03-08] MEDS ORDERED: NOREPINEPHRINE 4 MG/4 ML VIAL ONE (07:20)
[2019-03-08] MEDS ORDERED: NOREPINEPHRINE 4 MG in D5W 250 ML IV PRN (07:28)
--- NOTE | 2019-03-08 08:08 | RAD REPORT ---
EXAM DESCRIPTION: CT - Head Brain Wo Cont - 03/08/2019 7:38 am CLINICAL HISTORY: Alteration of awareness/confusion/ fall COMPARISON: February 15, 2019 TECHNIQUE: Computed axial tomography of the head was obtained. IV contrast was not requested. All CT scans are performed using dose optimization technique as appropriate and may include automated exposure control or mA/KV adjustment according to patient size. FINDINGS: Small right scalp hematoma An intracranial bleed is not seen . The ventricles are normal in caliber. No extra-axial fluid collection is noted. Mild to moderate low-density areas within periventricular, deep and subcortical white matter likely r epresent ischemic changes secondary to small vessel disease. Old lacunar infarct left basal ganglia Chronic right maxillary sinusitis. IMPRESSION: No acute intracranial abnormality is seen. If patient's symptoms persist MRI of the bra in would be recommended.
--- NOTE | 2019-03-08 08:38 | RAD REPORT ---
EXAM DESCRIPTION: Anay Single View03/08/2019 2:37 am CLINICAL HISTORY: Cough COMPARISON: February 15, 2019 FINDINGS: The lungs appear clear of acute infiltrate. The heart is normal size. Poor inspiration
[2019-03-08] MEDS ORDERED: PIPER/TAZO/NS 2.25gm 2.25 GM/50 ML BAG IVPB SCH (09:00)
--- NOTE | 2019-03-08 09:54 | EKG ---
Test Date: 2019-03-08 Test Time: 02:26:41 Network Specialist: AINSLEY MEASUREMENT RESULTS: Intervals: Rate: 113 OR: QRSD: 96 QT: 312 QTc: 427 [place]: P: OR: QRS: 146 T: -7 INTERPRETIVE STATEMENTS: Sinus tachycardia Inferior infarct, age undetermined Pulmonary disease pattern Cannot rule out Anterior infarct, age undetermined Abnormal ECG Compared to ECG 02/15/2019 15:44:13 Possible Myocardial infarct finding now present Sinus rhythm no longer present Electronically Signed On 03-08-19 09:53:26 CDT by Surya Palomino
[2019-03-08] MEDS: HEPARIN 5000 UNIT/ML 1 ML VIAL SQ SCH ×2 (10:15→20:19)
[2019-03-08] MEDS ORDERED: NA CHLORIDE 0.9% 1,000 ML IV PRN (10:34)
[2019-03-08] MEDS ORDERED: ALBUMIN HUMAN 25% 50 ML IV SCH (11:00)
--- NOTE | 2019-03-08 11:04 | P.CNS ---
Date of Consult: 03/08/19 Chief Complaint: sepsis, pneumonia History of Present Illness: Patient is 73 years of age [place]-speaking only lives in a [place] [facility] admitted with altered mental status some fever admitted with low blood pressure was started on Levophed Demos weaned off admitted with a diagnosis of possible pneumonia he is alert responsive cooperative hemodynamically stable and in no distress patient has hemiparesis on the left side according to the [place] [facility] this is chronic is a vasculopath multiple ulcers peripheral vascular disease on dialysis Allergies No Known Drug Allergies Allergy (Verified 07/24/18 10:49) Unknown Home Medications: Gabapentin [Neurontin*] 100 mg PO BID 12/31/12 Pravastatin [Pravachol*] 40 mg PO BEDTIME 12/31/12 Carbidopa/Levodopa [Carbidopa-Levo 25-100 mg Odt] 1 tab PO BID 09/12/16 Pregabalin [Lyrica] 75 mg PO BID 05/25/18 Clopidogrel Bisulfate [Plavix] 75 mg PO BEDTIME 08/20/18 Ascorbic Acid [Vitamin C] 500 mg PO DAILY 10/14/18 Aspirin [Adult Low Dose Aspirin EC] 81 mg PO DAILY 10/14/18 Zinc Sulfate [Zinc Sulfate*] 220 mg PO DAILY 10/14/18 Acetaminophen [Tylenol] 2 tab PO Q6H PRN 03/08/19 Acetaminophen with Codeine [Acetaminophen-Cod #3 Tablet] 1 each PO Q12H PRN Famotidine [Pepcid] 20 mg PO BEDTIME 03/08/19 Folic Acid/Vit Bcomp,C [Renal-Pedro Tablet] 1 tab PO DAILY 03/08/19 Gentamicin Sulfate 15 gm TP DAILY 03/08/19 Insulin Glargine,Hum.rec.anlog [Lantus Solostar] 23 units SQ DAILY 03/08/19 Sertraline HCl 75 mg PO DAILY 03/08/19 Sevelamer Carbonate [Renvela*] 1 tab PO TIDWM 03/08/19 - Past Medical/Surgical History Diabetic: Yes -: Hypertension -: Neuropathy -: Hyperlipidemia -: ESRD -: DM -: DDD/DJD of the spine -: Anemia of chronic disease -: Hepatitis C -: History of pancreatitis -: Dialysis stent -: LLE Stent -: Right foot sx r/t fx -: vein procedure on r femoral Psychosocial/ Personal History: has recently. - Family History Mother Medical History: Diabetes Father Medical History: Diabetes - Social History Smoking Status: Unknown if ever smoked Alcohol use: No CD- Drugs: No Caffeine use: Yes Place of Residence: [facility] Review of Systems is unable to be obtained Physical Examination Temp Pulse Resp BP Pulse Ox 98.5 F 80 10 L 94/50 L 96 03/08/19 08:35 03/08/19 09:45 03/08/19 09:45 03/08/19 09:45 03/08/19 09:45 General: Alert, Cooperative Respiratory: Clear to auscultation bilaterally Cardiovascular: No edema, Normal S1 S2 Laboratory Data (last 24 hrs) 03/08/19 02:30: PT 12.6 H, INR 1.07, APTT 31.9 03/08/19 02:30: Sodium 136, Potassium 4.7, BUN 56 H, Creatinine 4.57 H, Glucose 77, Total Bilirubin 0.4, AST 27, ALT < 6 L, Alkaline Phosphatase 110, Lipase 56 L 03/08/19 02:30: WBC 12.8 H, Hgb 13.2 L, Hct 40.6, Plt Count 202 - Problems (1) Shock Current Visit: Yes Status: Acute Plan: Patient is 73 years of age admitted with altered mental status, fever possible right lower lobe pneumonia I will do a CT scan of the chest without contrast labs reviewed white count is mildly elevated. Patient has chronic renal failure on dialysis currently on broad-spectrum antibiotics he is off vasopressors shock resolved oxygenation satisfactory patient is on vanc and Zosyn pro calcitonin level is elevated
[2019-03-08] MEDS ORDERED: GLUCAGON 1 MG/VIAL IM PRN (11:19)
[2019-03-08] MEDS ORDERED: D50W 25 GM/50 ML SYRINGE IV PRN (11:19)
[2019-03-08] MEDS: INSULIN -REGULAR HUMAN 50 UNIT/0.5 ML ML SQ SCH ×3 (11:30→21:00)
--- NOTE | 2019-03-08 13:18 | P.CNS ---
Date of Consult: 03/08/19 Chief Complaint: sepsis, pneumonia History of Present Illness: pt is unable to provide Hx, Hx obtained from chart A 73-year-old [place] resident with significant past medical history of hypertension , hyperlipidemia, diabetes with neuropathy and nephropathy, osteoarthritis, hep C, end-stage renal disease on hemodialysis Via AVF , PVD S/P Rt TMA and foot ulcers Pt sent from [place] for Hypoxia and AMS Pt found to have hypoxia and Low BP ,required 2.5 liter Bolus and Levophed Abx started , pt cant give more detalis Allergies No Known Drug Allergies Allergy (Verified 07/24/18 10:49) Unknown Home Medications: Gabapentin [Neurontin*] 100 mg PO BID 12/31/12 Pravastatin [Pravachol*] 40 mg PO BEDTIME 12/31/12 Carbidopa/Levodopa [Carbidopa-Levo 25-100 mg Odt] 1 tab PO BID 09/12/16 Pregabalin [Lyrica] 75 mg PO BID 05/25/18 Clopidogrel Bisulfate [Plavix] 75 mg PO BEDTIME 08/20/18 Ascorbic Acid [Vitamin C] 500 mg PO DAILY 10/14/18 Aspirin [Adult Low Dose Aspirin EC] 81 mg PO DAILY 10/14/18 Zinc Sulfate [Zinc Sulfate*] 220 mg PO DAILY 10/14/18 Acetaminophen [Tylenol] 2 tab PO Q6H PRN 03/08/19 Acetaminophen with Codeine [Acetaminophen-Cod #3 Tablet] 1 each PO Q12H PRN Famotidine [Pepcid] 20 mg PO BEDTIME 03/08/19 Folic Acid/Vit Bcomp,C [Renal-Pedro Tablet] 1 tab PO DAILY 03/08/19 Gentamicin Sulfate 15 gm TP DAILY 03/08/19 Insulin Glargine,Hum.rec.anlog [Lantus Solostar] 23 units SQ DAILY 03/08/19 Sertraline HCl 75 mg PO DAILY 03/08/19 Sevelamer Carbonate [Renvela*] 1 tab PO TIDWM 03/08/19 - Past Medical/Surgical History Diabetic: Yes -: Hypertension -: Neuropathy -: Hyperlipidemia -: ESRD -: DM -: DDD/DJD of the spine -: Anemia of chronic disease -: Hepatitis C -: History of pancreatitis -: Dialysis stent -: LLE Stent -: Right foot sx r/t fx -: vein procedure on r femoral Psychosocial/ Personal History: has recently. - Family History Mother Medical History: Diabetes Father Medical History: Diabetes - Social History Smoking Status: Unknown if ever smoked Alcohol use: No CD- Drugs: No Caffeine use: Yes Place of Residence: Shelter Physical Examination Temp Pulse Resp BP Pulse Ox 98.5 F 73 11 L 115/68 98 03/08/19 08:35 03/08/19 12:00 03/08/19 12:00 03/08/19 12:00 03/08/19 12:00 General: Alert, Mild distress HEENT: Atraumatic Neck: Supple, Without JVD or thyroid abnormality Respiratory: Clear to auscultation bilaterally, Normal air movement Cardiovascular: No edema, Regular rate/rhythm, Normal S1 S2, No gallops, No rubs , No murmurs Gastrointestinal: Normal bowel sounds, Soft and benign Musculoskeletal: Other (rt TMA , b/l foot dressing ) Laboratory Data (last 24 hrs) 03/08/19 02:30: PT 12.6 H, INR 1.07, APTT 31.9 03/08/19 02:30: Sodium 136, Potassium 4.7, BUN 56 H, Creatinine 4.57 H, Glucose 77, Total Bilirubin 0.4, AST 27, ALT < 6 L, Alkaline Phosphatase 110, Lipase 56 L 03/08/19 02:30: WBC 12.8 H, Hgb 13.2 L, Hct 40.6, Plt Count 202 - Problems (1) ESRD (end stage renal disease) on dialysis Current Visit: Yes Status: Chronic (2) Shock Current Visit: Yes Status: Acute Conclusions/Impression: End-stage renal disease,on HD TTsat from via Lt AVF will cont HD as scheduled renal diet renal dose meds Shock likely Septic Cont empiric Abx coverage F/U cultures Anemia of chronic kidney disease. No need for BEAU at this time Metabolic bone disease Check Phos will restart Renvela when stable Dm as per primary Decubiti ulcer Wound care Abx F/U culture Surgery evaluation
--- NOTE | 2019-03-08 13:26 | P.PN ---
Subjective Date of Service: 03/08/19 Primary Care Provider: Dr. Bauman, [facility] Chief Complaint: sepsis, pneumonia Subjective: Other (Patient doing better) Physical Examination - Vital Signs Temperature: 98.5 F Blood Pressure: 115/68 Pulse: 73 Respirations: 11 Pulse Ox (%): 98 - Physical Exam General: Alert, Cooperative HEENT: Atraumatic, Other (Irritation to the right facial region. Mild edema) Neck: Supple Respiratory: Clear to auscultation bilaterally, Normal air movement Cardiovascular: Normal pulses, Regular rate/rhythm Gastrointestinal: Normal bowel sounds, Soft and benign, Non-distended, No masses , No rebound, No guarding Musculoskeletal: No tenderness, No warmth Integumentary: Other (Multiple ulcers to the lower extremity currently bandage. Patient also has sacral ulcer.) Neurological: Normal speech, Normal strength at 5/5 x4 extr, Normal tone - Studies Laboratory Data (last 24 hrs) 03/08/19 02:30: PT 12.6 H, INR 1.07, APTT 31.9 03/08/19 02:30: Sodium 136, Potassium 4.7, BUN 56 H, Creatinine 4.57 H, Glucose 77, Total Bilirubin 0.4, AST 27, ALT < 6 L, Alkaline Phosphatase 110, Lipase 56 L 03/08/19 02:30: WBC 12.8 H, Hgb 13.2 L, Hct 40.6, Plt Count 202 Microbiology Data (last 24 hrs): 03/08/19 03:31 Blood - Blood Anaerobic Blood Culture - Final Medications List Reviewed: Yes Assessment & Plan Discharge Plan: Usp Plan to discharge in: Greater than 2 days Physician Review Additional Text: Impression: Septic shock with acute toxic encephalopathy likely related to multiple wounds including sacral ulcer and lower extremity ulcers with possible right lower lobe pneumonia Hypoxia etiology unknown Diabetes mellitus type 2, insulin-dependent End stage renal disease on hemodialysis Right scalp hematoma with a recent falls History of CVA Depression Seizure disorder Peripheral vascular disease. Plan: Septic shock with acute toxic encephalopathy likely related to multiple wounds including sacral ulcer and lower extremity ulcers with possible right lower lobe pneumonia: Patient has received IV fluid bolus. Spoke with nephrology who recommends to hold fluids at this time due to his end-stage renal disease. Patient will be provided Levophed if needed. Blood and wound cultures obtained. Pulmonology you recommends CT scan to evaluate for pneumonia versus pulmonary embolism. Antibiotics adjusted. Patient now on vancomycin, cefepime and Flagyl. Will continue to monitor the patient closely. Monitor lab closely. Will continue to reassess. Will consult surgery to evaluate wounds. Wound care console also ordered. May need to get Infectious Disease to evaluate wounds as well. Hypoxia etiology unknown: Patient to have CT chest to further evaluate. Maintain sats above 90%. Diabetes mellitus type 2, insulin-dependent: Will provide insulin sliding scale. Monitor Accu-Cheks. End stage renal disease on hemodialysis: Patient will continue with dialysis. Case discussed with nephrology. Right scalp hematoma with a recent falls: Patient with recent falls. CT scan shows right scalp hematoma. Once the patient is more stable will need to have physical therapy and occupational therapy evaluate patient. Fall precautions. History of CVA: Patient with prior CVA. Continue to monitor closely. CT head shows no acute changes. Depression: Continue with his medication Seizure disorder: Continue with his medication. Peripheral vascular disease: Continue with Plavix. Family reports that he has been evaluated for lower extremity CV surgical intervention. Patient is to have intervention as an outpatient. Time Spent Managing Pts Care (In Minutes): 55
--- NOTE | 2019-03-08 13:46 | RAD REPORT ---
EXAM DESCRIPTION: CT - Thorax Wo Con - 03/08/2019 1:35 pm CLINICAL HISTORY: Cough COMPARISON: March 08, 2019 x-ray TECHNIQUE: Computed axial tomography of the chest was obtained. Contrast was not requested. All CT scans are performed using dose optimization technique as appropriate and may include automated exposure control or mA/KV adjustment according to patient size. FINDINGS: The evaluation of mediastinum, christie and vessels is limited secondary to lack of IV contras t administration. Elevation right hemidiaphragm Mild right lower lobe opacities consistent with pneumonia. Left lung is essentially clear. No mediastinal or hilar lymphadenopathy is seen. A pleural effusion is not present. IMPRESSION: Mild right lower lobe pneumonia
[2019-03-08 15:21] VITALS: BMI 28.5
[2019-03-08] MEDS: SEVELAMER CARBONATE 800 MG TABLET PO SCH (17:45)
--- NOTE | 2019-03-08 19:42 | P.OP ---
Date of Service: 03/08/19 Findings and Operative Technique Central Venous Catheter Placement Date: 03/08/19 Indication: Hemodynamic monitoring/Intravenous access Attending: Dr Ceballos A time-out was completed verifying correct patient, procedure, site, positioning , and special equipment if applicable. The patient was placed in a dependent position appropriate for central line placement based on the vein to be cannulated. The patients right groin was prepped and draped in sterile fashion. 1% Lidocaine was used to anesthetize the surrounding skin area. A triple lumen 9-Bengali Cordis catheter was introduced into the the common femoral vein using the Seldinger technique. The catheter was threaded smoothly over the guide wire and appropriate blood return was obtained. Each lumen of the catheter was evacuated of air and flushed with sterile saline. The catheter was then sutured in place to the skin and a sterile dressing applied. Perfusion to the extremity distal to the point of catheter insertion was checked and found to be adequate. Estimated Blood Loss: 5 cc The patient tolerated the procedure well and there were no complications
[2019-03-08] MEDS: CARBIDOPA/LEVODOPA 25/100 TAB PO SCH (20:19)
[2019-03-08] MEDS: FAMOTIDINE 20 MG TAB PO SCH (20:20)
[2019-03-08] MEDS: ATORVASTATIN 10 MG TAB PO SCH (20:20)
[2019-03-08] MEDS: CLOPIDOGREL 75 MG TABLET PO SCH (20:20)
[2019-03-09 01:08] VITALS: O2SAT 92
[2019-03-09 05:25] LABS: Absolute Lymphocytes (CBC) 1.5 K/uL (0.7-4.9); Basophils % 0.6 % (0-1.3); Eosinophils % 5.3 % (0-4.4); Hematocrit 32.4 % (39.6-49.0); Lymphocytes % 15.1 % (15.3-44.8); MPV 9.3 fL (7.6-11.3); Monocytes % 8.5 % (3.3-12.3); RBC Red Blood Cell Count 3.42 M/uL (4.33-5.43)
[2019-03-09] MEDS: INSULIN -REGULAR HUMAN 50 UNIT/0.5 ML ML SQ SCH ×4 (07:30→21:00)
[2019-03-09] MEDS: SEVELAMER CARBONATE 800 MG TABLET PO SCH ×3 (08:00→17:20)
--- NOTE | 2019-03-09 08:40 | P.PN ---
Subjective Date of Service: 03/09/19 Primary Care Provider: Dr. Bauman, correction( I am covering for him) Chief Complaint: sepsis, pneumonia Subjective: Doing well Physical Examination - Vital Signs Temperature: 98 F Blood Pressure: 134/58 Pulse: 78 Respirations: 12 Pulse Ox (%): 91 - Physical Exam General: Alert, In no apparent distress, Cooperative HEENT: Atraumatic Neck: Supple Respiratory: Clear to auscultation bilaterally, Normal air movement Cardiovascular: Normal pulses, Regular rate/rhythm Gastrointestinal: Normal bowel sounds, Soft and benign, Non-distended Musculoskeletal: No tenderness, No warmth Integumentary: Other (Patient has sacral ulcer. Wounds to the feet bandaged.) Neurological: Normal speech, Normal strength at 5/5 x4 extr, Normal tone - Studies Microbiology Data (last 24 hrs): 03/08/19 05:15 Sputum Gram Stain - Final 03/08/19 03:31 Blood - Blood Anaerobic Blood Culture - Final Medications List Reviewed: Yes Assessment & Plan Discharge Plan: Usp Plan to discharge in: 72 Hours Physician Review Additional Text: Impression: Septic shock with acute toxic encephalopathy likely related to multiple wounds including sacral ulcer and lower extremity ulcers with right lower lobe pneumonia Hypoxia secondary to right lower lobe pneumonia Diabetes mellitus type 2, insulin-dependent End stage renal disease on hemodialysis Right scalp hematoma with recent falls History of CVA Depression Seizure disorder Peripheral vascular disease. Plan: Septic shock with acute toxic encephalopathy likely related to multiple wounds including sacral ulcer and lower extremity ulcers with right lower lobe pneumonia: Patient remained stable. Patient off Levophed. Blood and wound culture results pending. CT chest did show right lower lobe pneumonia. Recheck chest x-ray. Wean off oxygen to maintain sats above 90%. Nephrology and Pulmonary on the case. May need to make adjust in IV antibiotics. Patient received dialysis yesterday. Surgery consulted to evaluate wounds. Infectious Disease also to evaluate wounds. Patient is seen by CV surgery as an outpatient. Family reports patient to have CV intervention as an outpatient. I will turn the service over to Dr. Bauman who sees the patient. Dr. Bauman is his PCP. I will go over the plan of care with him. Hypoxia secondary to RLL pneumonia: CT scan revealed right lower lobe pneumonia. Continue IV antibiotic therapy. Await further adjustment and recommendation by pulmonology. Wean off oxygen. Recheck chest x-ray. Diabetes mellitus type 2, insulin-dependent: Will provide insulin sliding scale. Monitor Accu-Cheks. End stage renal disease on hemodialysis: Patient received dialysis yesterday. Case discussed with nephrology. Continue with their recommendations. Right scalp hematoma with recent falls: Patient with recent falls. CT scan shows right scalp hematoma. Once the patient is more stable will need to have physical therapy and occupational therapy evaluate patient. Fall precautions. History of CVA: Patient with prior CVA. Continue to monitor closely. CT head shows no acute changes. Depression: Continue with his medication Seizure disorder: Continue with his medication. Peripheral vascular disease: Continue with Plavix. Family reports that he has been evaluated for lower extremity CV surgical intervention. Patient is to have intervention as an outpatient. Time Spent Managing Pts Care (In Minutes): 55
[2019-03-09] MEDS: MULTIVITAMINS,THERAPEUT 1 TAB PO SCH (08:50)
[2019-03-09] MEDS: HEPARIN 5000 UNIT/ML 1 ML VIAL SQ SCH ×2 (08:50→22:12)
[2019-03-09] MEDS: CEFEPIME/SWI 1gm 10 ML IV SCH (08:50)
[2019-03-09] MEDS: CARBIDOPA/LEVODOPA 25/100 TAB PO SCH ×2 (08:50→22:13)
[2019-03-09] MEDS: ASPIRIN EC 81 MG TAB PO SCH (08:50)
[2019-03-09] MEDS: SERTRALINE HCL 50 MG TAB PO SCH (08:51)
[2019-03-09] MEDS: ASCORBIC ACID 500 MG TABLET PO SCH (08:51)
[2019-03-09] MEDS: ZINC SULFATE 220 MG CAP PO SCH (08:51)
[2019-03-09] MEDS ORDERED: CEFEPIME 1 GM/VIAL IV SCH (09:00)
--- NOTE | 2019-03-09 13:56 | P.PN ---
Subjective Date of Service: 03/09/19 Primary Care Provider: Dr. Bauman, residential( I am covering for him) Chief Complaint: sepsis, pneumonia Subjective: Improving Pt with ESRD , admitted for hypoxia and septic shock , received 2.5 liter NS and was on pressers Hd on sunday Today no new complaints off pressers, BP stable Cultures so far -ve HD tomorrow Ok to transfer to the floor Physical Examination - Vital Signs Temperature: 98.5 F Blood Pressure: 149/80 Pulse: 80 Respirations: 12 Pulse Ox (%): 96 - Physical Exam General: Alert, In no apparent distress HEENT: Atraumatic Neck: Supple, JVD not distended, Without JVD or thyroid abnormality Respiratory: Clear to auscultation bilaterally, Normal air movement Cardiovascular: No edema, Normal pulses, Regular rate/rhythm, No gallops, No rubs Gastrointestinal: Normal bowel sounds Musculoskeletal: Other (B/l feet dressing ) - Studies Microbiology Data (last 24 hrs): 03/08/19 03:31 Blood - Blood Anaerobic Blood Culture - Final 03/08/19 05:15 Sputum Gram Stain - Final Medications List Reviewed: Yes Assessment And Plan - Current Problems (Diagnosis) (1) ESRD (end stage renal disease) on dialysis Current Visit: Yes Status: Chronic (2) Shock Current Visit: Yes Status: Acute - Plan End-stage renal disease,on HD TTsat from via Lt AVF will do dialysis tomorrow renal diet renal dose meds Shock likely Septic responding to Abx Cont empiric Abx coverage F/U cultures Anemia of chronic kidney disease. No need for BEAU at this time Metabolic bone disease will restart Renvela Dm as per primary Decubiti ulcer Wound care Abx F/U culture Surgery evaluation
--- NOTE | 2019-03-09 19:00 | CON ---
Date of Consultation: 03/09/2019 Diagnosis: Decubitus ulcers, history of sepsis. History Of Present Illness: This is the case of a 73-year-old patient with history of diabetes, hype rtension, end-stage renal disease. A intermediate resident, bedridden. We can data with after menta l status and rule out sepsis. During the proper workup patient found to have also have decubitus ulc ers and a surgical consult was obtained. The patient cannot give any information. Allergies: UNKNOWN. Medications: Reviewed including heparin. Medical History: Includes hepatitis, pancreatitis, hyperlipidemia, hypertension, end-stage renal dis ease, diabetes. Past Surgical History: Include dialysis catheters and also a graft on the left upper arm. The patie nt also have an amputation of the area distal foot on the right area long time ago. The left lower e xtremity stents. Family History: Include diabetes and unknown smoke and he does not drink alcohol. Review of Systems: Unable to obtain feed. Physical Examination: General: The patient is awake, although cannot give any information. HEENT: Pupils anicteric. Heart: S1, S2. Abdomen: Soft and depressible. No guarding or rebound. Skin: The patient has a sacral decubitus ulcer, large. We did see discoloration of the skin for ulc er. It is about 20 x 15 cm at least. Over the right ischium, the patient also has an ulcer with dolores e depth associated with it and this one have to be at least 5 x 3 cm. Over the right stump where the transmetatarsal amputation was done patient has a small probably 1 x 1 cm ulcer present with clear d ischarge. No cellulitis present. On the area of the left heel region, the patient has another open ulcer, must be about 7 x 4 cm. All this ulcers have fibrin on it. I did not see any fluctuance, any purulent discharge coming from them. I believe we do use of enzymatic debriders to improve. Laboratory Data: Blood work shows a WBC count of 9.7, hemoglobin 11.7, and creatinine is 3.35. Assessment: This is a 73-year-old patient with multiple decubitus ulcers. They are not new. Appare ntly he is a intermediate bound and he has been taking care of and that area so we are going to joelle nue that while he has been rule out for an another cause of sepsis via offloading him stand still in all the wounds frequent turning and nutrition improvement. He is also welcome whenever he gets disch arged to [facility]. So, we can have more acute evaluation of this wound . With all the information that obtained before to move forward and get this healed since I am not s ure if he never have an MRI to rule out any bone involvement. Apparently these wounds that looked li ke he has been taking care of because they looked clean at this time. We are trying to keep it like that. AMY/ANDRE Voice ID: [id number] Report ID: [id number]
[2019-03-09] MEDS: FAMOTIDINE 20 MG TAB PO SCH (22:12)
[2019-03-09] MEDS: ATORVASTATIN 10 MG TAB PO SCH (22:12)
[2019-03-09] MEDS: CLOPIDOGREL 75 MG TABLET PO SCH (22:12)
[2019-03-10 05:03] LABS: Absolute Lymphocytes (CBC) 1.2 K/uL (0.7-4.9); Basophils % 0.4 % (0-1.3); Eosinophils % 6.3 % (0-4.4); Hematocrit 31.3 % (39.6-49.0); Lymphocytes % 13.8 % (15.3-44.8); MPV 8.6 fL (7.6-11.3); Monocytes % 9.6 % (3.3-12.3); RBC Red Blood Cell Count 3.27 M/uL (4.33-5.43)
[2019-03-10 05:25] LABS: Magnesium 2.2 mg/dL (1.8-2.4); Potassium 4.3 mmol/L (3.5-5.1)
--- NOTE | 2019-03-10 06:48 | RAD REPORT ---
EXAM DESCRIPTION: RAD - Chest Single View - 03/10/2019 6:39 am CLINICAL HISTORY: Altered mental status, pneumonia, decreasing O2 saturation COMPARISON: Portable chest March 08, CT chest March 08 TECHNIQUE: AP portable chest image was obtained 0636 hours . FINDINGS: Lung volumes are quite low and there is accentuated volume reduction in the right hemithor ax. No new or progressive left lung field finding. Patchy right lung base infiltrate and/ or atelecta sis changes are present. Heart size within normal limits for shallow inspiration portable imaging. No significant failure or volume overload seen. Mild forms can still be present and obscured by the exa m limitations. No measurable pleural effusion and no pneumothorax. No acute bony abnormality seen. No acute aortic findings suspected. IMPRESSION: Limited shallow inspiration film showing patchy right lung base infiltrate and/ or atele ctasis similar to comparison.
[2019-03-10] MEDS: INSULIN -REGULAR HUMAN 50 UNIT/0.5 ML ML SQ SCH ×4 (07:30→22:01)
[2019-03-10] MEDS: COLLAGENASE 30 GM OINTMENT TOP SCH (09:00)
[2019-03-10] MEDS: CARBIDOPA/LEVODOPA 25/100 TAB PO SCH ×2 (09:00→22:00)
[2019-03-10] MEDS: SERTRALINE HCL 50 MG TAB PO SCH (09:01)
[2019-03-10] MEDS: CEFEPIME/SWI 1gm 10 ML IV SCH (09:01)
[2019-03-10] MEDS: HEPARIN 5000 UNIT/ML 1 ML VIAL SQ SCH ×2 (09:01→22:00)
[2019-03-10] MEDS: MULTIVITAMINS,THERAPEUT 1 TAB PO SCH (09:01)
[2019-03-10] MEDS: SEVELAMER CARBONATE 800 MG TABLET PO SCH ×3 (09:01→17:00)
[2019-03-10] MEDS: ASPIRIN EC 81 MG TAB PO SCH (09:02)
[2019-03-10] MEDS: ZINC SULFATE 220 MG CAP PO SCH (09:02)
[2019-03-10] MEDS: ASCORBIC ACID 500 MG TABLET PO SCH (09:02)
[2019-03-10] MEDS ORDERED: VANCOMYCIN 1 GM in NA CHLORIDE 0.9% 250 ML IVPB SCH (10:00)
[2019-03-10] MEDS ORDERED: ACETYLCYST 20% 4 ML VIAL IH ONE (14:00)
--- NOTE | 2019-03-10 17:36 | CON ---
History Of Present Illness: This is a 73-year-old male, custodial resident, coming in with multip le wounds to the body, especially involving sacral and right thigh wounds, which are unstageable. Crenshaw s necrotic tissue in it. The patient is not a good historian. Most of the history was obtained thro [facility] medical records and staff. The patient is afebrile. Also having cough and gurgling sounds. Rhona st x-ray done today shows the patient has limited shallow inspiration film showing patchy right lung base infiltrate. Past Medical History: Includes neuropathy, hypercholesterolemia, dementia, hypertension, hyperlipide ines, end-stage renal disease, diabetes mellitus, degenerative joint disease, anemia, hepatitis C, his tory of pancreatitis dialysis, left lower extremity stent, right foot surgical TMA. Social History: Tobacco history, not known. Alcohol history, not known. Lives at nursing facility. Review of Systems: Unable to obtain. Physical Examination: Vital Signs: Temperature 98.6, pulse 79, respirations 16, blood pressure 147/54. HEENT: Unremarkable. Neck: Supple. Lungs: Basal crackles. Heart: S1, S2. Regular. Abdomen: Soft. Bowel sounds present. Large sacral unstageable wound noted. Right thigh necrotic w ound noted. Left heel and right TMA and right heel wound noted. Laboratory Data: Shows WBC 8.8, hemoglobin 10.3, platelets are 194. Chemistry shows sodium 134, pot assium 4.3, chloride 101, bicarb 24, BUN 49, creatinine 4.5, glucose 126. Microdata shows Proteus mi rabilis in the sacral right thigh and left heel wound, sensitive to penicillin, cephalosporins, carba penems, and aminoglycosides. The patient is currently being treated with cefepime and vancomycin. Assessment/plan: Sacral unstageable wound, right thigh; unstageable wound, left heel; and right heel wounds also noted. Right transmetatarsal amputation wound noted. Recommend Xeroform to the right t ransmetatarsal amputation area. Offload both heels. Sacral and right thigh wounds need debridement. IV antibiotics for 3-4 weeks. Consider transferring the patient to long-term acute care for furthe r evaluation. NF/MODL Voice ID: [id number] Report ID: [id number]
--- NOTE | 2019-03-10 18:54 | PN ---
Date of Progress Note: 03/10/2019 Diagnosis: Multiple decubitus ulcers. Subjective: The patient is awake and alert. No distress. Review of system unable to be obtained. Right foot stump ulcer intact. Left side started with Charles l, also sacral started with Santyl on the ischium. No new changes. Plan: Continue with nutrition. Continue with the frequent turning, and also offloading. AMY/ANDRE Voice ID: [id number] Report ID: [id number]
[2019-03-10] MEDS: CLOPIDOGREL 75 MG TABLET PO SCH (22:00)
[2019-03-10] MEDS: FAMOTIDINE 20 MG TAB PO SCH (22:00)
[2019-03-10] MEDS: ATORVASTATIN 10 MG TAB PO SCH (22:00)
[2019-03-10] MEDS: JUVEN PACKET PO SCH (22:02)
--- NOTE | 2019-03-11 03:52 | PN ---
Date of Progress Note: 03/10/2019 Chief Complaint: End-stage renal disease, on dialysis. Subjective: The patient is scheduled to have dialysis today. The patient is undergoing treatment with dialysis 3 times per week. The patient was admitted for hypoxemic respiratory failure, septic shock. He received primarily normal saline for volume resuscitation. The patient was on pressor and has been weaned off pressors on Sunday. The patient currently is off blood pressure medication and off pressors. Blood culture is pending. The patient is consulted by Infectious Disease for further antibiotics. Review of Systems: Denies fever, chills. Physical Examination: Lungs: Few crackles at bases. Heart: S1, S2. Abdomen: Soft, benign. Extremities: Edema in both legs. Lab Work: Hemoglobin 10.3, WBC 8.8, platelet count is 194,000. Chemistries showed sodium 134, potassium 4.3, chloride 101, CO2 24, BUN 49, creatinine 4.59 , glucose 126, calcium 8.1, phosphorus 4.0, magnesium 2.2. Impression And Plan: 1. End-stage renal disease. Dialysis will be done today. 2. Wound infection, proteus mirabilis infection. The patient will continue antibiotics. 3. Renal osteodystrophy. Continue renal diet and binders. 4. Hypertension. Monitor blood pressure and advance blood pressure medication as needed. 5. Congestive heart failure, chronic, with diastolic dysfunction. Advance ultrafiltration to prevent volume overload. 6. Sacral unstageable wound, right thigh unstageable wound, left heel and right heel wounds. Treatment with antibiotics according to culture results. I spent total 36 min including 26 min to coordinate care plan. JOSE Voice ID: [id number] Report ID: [id number]
[2019-03-11 05:22] LABS: Absolute Lymphocytes (CBC) 1.2 K/uL (0.7-4.9); Basophils % 0.3 % (0-1.3); Eosinophils % 4.1 % (0-4.4); Lymphocytes % 13.6 % (15.3-44.8); MPV 8.8 fL (7.6-11.3); Monocytes % 9.8 % (3.3-12.3); RBC Red Blood Cell Count 3.46 M/uL (4.33-5.43)
[2019-03-11 05:42] LABS: Magnesium 2.2 mg/dL (1.8-2.4); Potassium 3.6 mmol/L (3.5-5.1)
[2019-03-11] MEDS: INSULIN -REGULAR HUMAN 50 UNIT/0.5 ML ML SQ SCH ×4 (07:30→21:00)
[2019-03-11] MEDS: MULTIVITAMINS,THERAPEUT 1 TAB PO SCH (09:00)
[2019-03-11] MEDS: COLLAGENASE 30 GM OINTMENT TOP SCH (09:00)
[2019-03-11] MEDS: JUVEN PACKET PO SCH ×2 (09:00→21:00)
[2019-03-11] MEDS: SERTRALINE HCL 50 MG TAB PO SCH (09:49)
[2019-03-11] MEDS: ASCORBIC ACID 500 MG TABLET PO SCH (09:50)
[2019-03-11] MEDS: HEPARIN 5000 UNIT/ML 1 ML VIAL SQ SCH ×2 (09:51→22:04)
[2019-03-11] MEDS: CARBIDOPA/LEVODOPA 25/100 TAB PO SCH ×2 (09:51→22:03)
[2019-03-11] MEDS: ASPIRIN EC 81 MG TAB PO SCH (09:51)
[2019-03-11] MEDS: SEVELAMER CARBONATE 800 MG TABLET PO SCH ×3 (10:01→17:45)
[2019-03-11] MEDS: ZINC SULFATE 220 MG CAP PO SCH (10:01)
--- NOTE | 2019-03-11 10:05 | P.PN ---
Subjective Date of Service: 03/10/19 Primary Care Provider: Dr. Bauman, [facility]( I am covering for him) Chief Complaint: sepsis, pneumonia first day seeing pt. Review of Systems is unable to be obtained (pt is very somnolent) Physical Examination - Vital Signs Temperature: 98.3 F Blood Pressure: 146/68 Pulse: 79 Respirations: 13 Pulse Ox (%): 93 - Physical Exam HEENT: Atraumatic, PERRLA, EOMI Neck: Supple, JVD not distended Respiratory: Rhonchi/gurgles Cardiovascular: Regular rate/rhythm, Normal S1 S2 Gastrointestinal: Normal bowel sounds, No tenderness Musculoskeletal: No tenderness Integumentary: No rashes Neurological: Normal speech, Normal tone, Normal affect Lymphatics: No axilla or inguinal lymphadenopathy - Studies Microbiology Data (last 24 hrs): 03/08/19 05:15 Sputum Gram Stain - Final 03/08/19 03:10 Clean Catch Urine Lee Count - Final <10,000 CFU/ML. 03/08/19 03:10 Clean Catch Urine - Final No growth. 03/08/19 03:31 Blood - Blood Aerobic Blood Culture - Final 03/08/19 03:31 Blood - Blood Gram Stain - Final 03/08/19 03:31 Blood - Blood Anaerobic Blood Culture - Final Medications List Reviewed: Yes Assessment & Plan - Problems (Diagnosis) (1) Decubitus ulcer Current Visit: Yes Status: Acute Plan: Will consult wound care. Will be able to treat in the wound center. If he needs antibiotics will see if we can cordinate with Dr. Tucker. Qualifiers: Pressure injury location: thigh Pressure injury stage: unspecified pressure injury stage Laterality: right Qualified Code(s): L89.219 - Pressure ulcer of right hip, unspecified stage (2) Pneumonia Current Visit: Yes Status: Acute Plan: Pt was admitted for pneumonia and hypotension. He is having labored breathing today. Will continue breathing treatment. Add one dose of nebulized mucomyst. Will see if he can start PT. Qualifiers: Pneumonia type: aspiration pneumonia Aspiration pneumonia type: unspecified Laterality: right Lung location: lower lobe of lung Qualified Code(s): J69.0 - Pneumonitis due to inhalation of food and vomit (3) ESRD (end stage renal disease) on dialysis Current Visit: Yes Status: Chronic Plan: being managed by Dr. Tucker (4) Diabetes mellitus Onset Date: 09/13/16 Current Visit: No Status: Chronic Plan: will keep him on a mild sliding scale. Especially as he is not very good at reporting hypoglycemic symptoms. Discharge Plan: Group Home Plan to discharge in: Greater than 2 days - Code Status/Comfort Care Code Status Assessed: No Code Status: Full Code Physician Review Additional Text: Impression: Septic shock with acute toxic encephalopathy likely related to multiple wounds including sacral ulcer and lower extremity ulcers with right lower lobe pneumonia Hypoxia secondary to right lower lobe pneumonia Diabetes mellitus type 2, insulin-dependent End stage renal disease on hemodialysis Right scalp hematoma with recent falls History of CVA Depression Seizure disorder Peripheral vascular disease. Plan: Septic shock with acute toxic encephalopathy likely related to multiple wounds including sacral ulcer and lower extremity ulcers with right lower lobe pneumonia: Patient remained stable. Patient off Levophed. Blood and wound culture results pending. CT chest did show right lower lobe pneumonia. Recheck chest x-ray. Wean off oxygen to maintain sats above 90%. Nephrology and Pulmonary on the case. May need to make adjust in IV antibiotics. Patient received dialysis yesterday. Surgery consulted to evaluate wounds. Infectious Disease also to evaluate wounds. Patient is seen by CV surgery as an outpatient. Family reports patient to have CV intervention as an outpatient. I will turn the service over to Dr. Bauman who sees the patient. Dr. Bauman is his PCP. I will go over the plan of care with him. Hypoxia secondary to RLL pneumonia: CT scan revealed right lower lobe pneumonia. Continue IV antibiotic therapy. Await further adjustment and recommendation by pulmonology. Wean off oxygen. Recheck chest x-ray. Diabetes mellitus type 2, insulin-dependent: Will provide insulin sliding scale. Monitor Accu-Cheks. End stage renal disease on hemodialysis: Patient received dialysis yesterday. Case discussed with nephrology. Continue with their recommendations. Right scalp hematoma with recent falls: Patient with recent falls. CT scan shows right scalp hematoma. Once the patient is more stable will need to have physical therapy and occupational therapy evaluate patient. Fall precautions. History of CVA: Patient with prior CVA. Continue to monitor closely. CT head shows no acute changes. Depression: Continue with his medication Seizure disorder: Continue with his medication. Peripheral vascular disease: Continue with Plavix. Family reports that he has been evaluated for lower extremity CV surgical intervention. Patient is to have intervention as an outpatient. Critical Care: No Time Spent Managing Pts Care (In Minutes): 25
--- NOTE | 2019-03-11 10:13 | P.PN ---
Subjective Date of Service: 03/11/19 Primary Care Provider: Dr. Bauman, [facility]( I am covering for him) Chief Complaint: sepsis, pneumonia much more alert and breathing is clearer. Review of Systems 10-point ROS is otherwise unremarkable Physical Examination - Vital Signs Temperature: 98.3 F Blood Pressure: 146/68 Pulse: 79 Respirations: 13 Pulse Ox (%): 93 - Physical Exam General: Alert, In no apparent distress HEENT: Atraumatic, PERRLA, EOMI Neck: Supple, JVD not distended Respiratory: Clear to auscultation bilaterally, Normal air movement Cardiovascular: Regular rate/rhythm, Normal S1 S2 Gastrointestinal: Normal bowel sounds, No tenderness Musculoskeletal: No tenderness Integumentary: No rashes Neurological: Normal speech, Normal tone, Normal affect Lymphatics: No axilla or inguinal lymphadenopathy - Studies Microbiology Data (last 24 hrs): 03/08/19 05:15 Sputum Gram Stain - Final 03/08/19 03:10 Clean Catch Urine Redford Count - Final <10,000 CFU/ML. 03/08/19 03:10 Clean Catch Urine - Final No growth. 03/08/19 03:31 Blood - Blood Aerobic Blood Culture - Final 03/08/19 03:31 Blood - Blood Gram Stain - Final 03/08/19 03:31 Blood - Blood Anaerobic Blood Culture - Final Medications List Reviewed: Yes Assessment & Plan - Problems (Diagnosis) (1) Decubitus ulcer Current Visit: Yes Status: Acute Plan: Will consult wound care. Will be able to treat in the wound center. If he needs antibiotics will see if we can cordinate with Dr. Tucker. Qualifiers: Pressure injury location: thigh Pressure injury stage: unspecified pressure injury stage Laterality: right Qualified Code(s): L89.219 - Pressure ulcer of right hip, unspecified stage (2) Pneumonia Current Visit: Yes Status: Acute Plan: Pt was admitted for pneumonia and hypotension. He is having labored breathing today. Will continue breathing treatment. Add one dose of nebulized mucomyst. Will see if he can start PT. Qualifiers: Pneumonia type: aspiration pneumonia Aspiration pneumonia type: unspecified Laterality: right Lung location: lower lobe of lung Qualified Code(s): J69.0 - Pneumonitis due to inhalation of food and vomit (3) ESRD (end stage renal disease) on dialysis Current Visit: Yes Status: Chronic Plan: being managed by Dr. Tucker (4) Diabetes mellitus Onset Date: 09/13/16 Current Visit: No Status: Chronic Plan: will keep him on a mild sliding scale. Especially as he is not very good at reporting hypoglycemic symptoms. Discharge Plan: Home - Code Status/Comfort Care Code Status Assessed: No Physician Review Additional Text: Impression: Septic shock with acute toxic encephalopathy likely related to multiple wounds including sacral ulcer and lower extremity ulcers with right lower lobe pneumonia Hypoxia secondary to right lower lobe pneumonia Diabetes mellitus type 2, insulin-dependent End stage renal disease on hemodialysis Right scalp hematoma with recent falls History of CVA Depression Seizure disorder Peripheral vascular disease. Plan: Septic shock with acute toxic encephalopathy likely related to multiple wounds including sacral ulcer and lower extremity ulcers with right lower lobe pneumonia: Patient remained stable. Patient off Levophed. Blood and wound culture results pending. CT chest did show right lower lobe pneumonia. Recheck chest x-ray. Wean off oxygen to maintain sats above 90%. Nephrology and Pulmonary on the case. May need to make adjust in IV antibiotics. Patient received dialysis yesterday. Surgery consulted to evaluate wounds. Infectious Disease also to evaluate wounds. Patient is seen by CV surgery as an outpatient. Family reports patient to have CV intervention as an outpatient. I will turn the service over to Dr. Bauman who sees the patient. Dr. Bauman is his PCP. I will go over the plan of care with him. Hypoxia secondary to RLL pneumonia: CT scan revealed right lower lobe pneumonia. Continue IV antibiotic therapy. Await further adjustment and recommendation by pulmonology. Wean off oxygen. Recheck chest x-ray. Diabetes mellitus type 2, insulin-dependent: Will provide insulin sliding scale. Monitor Accu-Cheks. End stage renal disease on hemodialysis: Patient received dialysis yesterday. Case discussed with nephrology. Continue with their recommendations. Right scalp hematoma with recent falls: Patient with recent falls. CT scan shows right scalp hematoma. Once the patient is more stable will need to have physical therapy and occupational therapy evaluate patient. Fall precautions. History of CVA: Patient with prior CVA. Continue to monitor closely. CT head shows no acute changes. Depression: Continue with his medication Seizure disorder: Continue with his medication. Peripheral vascular disease: Continue with Plavix. Family reports that he has been evaluated for lower extremity CV surgical intervention. Patient is to have intervention as an outpatient. Critical Care: No Time Spent Managing Pts Care (In Minutes): 20
[2019-03-11] MEDS: CEFEPIME/SWI 1gm 10 ML IV SCH (11:22)
[2019-03-11] MEDS: FAMOTIDINE 20 MG TAB PO SCH (22:03)
[2019-03-11] MEDS: ATORVASTATIN 10 MG TAB PO SCH (22:04)
[2019-03-11] MEDS: CLOPIDOGREL 75 MG TABLET PO SCH (22:04)
--- NOTE | 2019-03-12 02:29 | PN ---
Date of Progress Note: 03/11/2019 Chief Complaint: End-stage renal disease, on dialysis. The patient was admitted to the hospital because of hypotension and septic shock. He is currently off pressors. He is treated with dialysis 3 times per week. He underwent dialysis yesterday. Procedure was well tolerated. Blood pressure in acceptable control. Review of Systems: Denies complaints. Physical Examination: Lungs: Few crackles at bases. Heart: S1, S2. Abdomen: Soft, benign. Extremities: Minimal edema. Impression And Plan: 1. End-stage renal disease, dialysis tomorrow. 2. Wound infection, Proteus mirabilis infection. Continue antibiotics. 3. Renal osteodystrophy. Continue renal diet and binders. 4. Congestive heart failure, chronic with diastolic dysfunction. Advance ultrafiltration to prevent volume overload. Monitor blood pressure during dialysis. 5. Right thigh unstageable wound, left heel and right heel wounds. Treatment with antibiotics and wound care according to blood culture results. I spent total 36 min including 26 min to coordinate care plan. JOSE Voice ID: [id number] Report ID: [id number] BRANDON
[2019-03-12 05:55] LABS: Absolute Lymphocytes (CBC) 0.8 K/uL (0.7-4.9); Basophils % 0.3 % (0-1.3); Eosinophils % 7.8 % (0-4.4); Hematocrit 32.6 % (39.6-49.0); Lymphocytes % 11.2 % (15.3-44.8); MPV 8.9 fL (7.6-11.3); Monocytes % 10.8 % (3.3-12.3); RBC Red Blood Cell Count 3.44 M/uL (4.33-5.43)
[2019-03-12 06:03] LABS: Magnesium 2.3 mg/dL (1.8-2.4); Potassium 3.7 mmol/L (3.5-5.1)
[2019-03-12] MEDS: INSULIN -REGULAR HUMAN 50 UNIT/0.5 ML ML SQ SCH ×3 (07:30→16:30)
--- NOTE | 2019-03-12 09:33 | P.DS ---
Admission Date: 03/08/19 Discharge Date: 03/12/19 Primary Care Provider: Dr. Bauman, [facility]( I am covering for him) Disposition: TRANSFER TO [facility] Discharge Condition: GOOD Reason for Admission: sepsis, pneumonia - Problems (1) Decubitus ulcer Current Visit: Yes Status: Acute Qualifiers: Pressure injury location: thigh Pressure injury stage: unspecified pressure injury stage Laterality: right Qualified Code(s): L89.219 - Pressure ulcer of right hip, unspecified stage (2) Pneumonia Current Visit: Yes Status: Acute Qualifiers: Pneumonia type: aspiration pneumonia Aspiration pneumonia type: unspecified Laterality: right Lung location: lower lobe of lung Qualified Code(s): J69.0 - Pneumonitis due to inhalation of food and vomit (3) ESRD (end stage renal disease) on dialysis Current Visit: Yes Status: Chronic (4) Diabetes mellitus Onset Date: 09/13/16 Current Visit: No Status: Chronic Brief History of Present Illness: Patient admitted by the hospitals. The patient is doing had a pneumonia. Classified as severe sepsis. Hospital Course: Was admitted to the ICU. Recovered well, transfered to the floors. The patient was doing better with breathing treatment. Seen by Dr. Queen and Dr. Benitez. He will be seen by Dr. Queen in the wound care center. The patient grew proteus out of his wounds and sputum. Will be sent home on Keflex and doxycline. This choice was made on the cultures. Vital Signs/Physical Exam: Temp Pulse Resp BP Pulse Ox 98.5 F 78 15 138/67 92 03/12/19 08:00 03/12/19 08:00 03/12/19 08:00 03/12/19 08:00 03/12/19 08:00 General: Alert, In no apparent distress HEENT: Atraumatic, PERRLA, EOMI Neck: Supple, JVD not distended Respiratory: Clear to auscultation bilaterally, Normal air movement Cardiovascular: Regular rate/rhythm, Normal S1 S2 Gastrointestinal: Normal bowel sounds, No tenderness Musculoskeletal: No tenderness, Other (amputation ) Integumentary: No rashes, Venous stasis ulcer (on thigh) Neurological: Normal speech, Normal tone, Normal affect Lymphatics: No axilla or inguinal lymphadenopathy Laboratory Data at Discharge: WBC 7.1 K/uL (4.3-10.9) D 03/12/19 05:10 Hgb 11.0 g/dL (13.6-17.9) L 03/12/19 05:10 Hct 32.6 % (39.6-49.0) L 03/12/19 05:10 Plt Count 212 K/uL (152-406) 03/12/19 05:10 PT 12.6 SECONDS (9.5-12.5) H 03/08/19 02:30 INR 1.07 03/08/19 02:30 APTT 31.9 SECONDS (24.3-36.9) 03/08/19 02:30 Sodium 139 mmol/L (136-145) 03/12/19 05:10 Potassium 3.7 mmol/L (3.5-5.1) 03/12/19 05:10 BUN 54 mg/dL (7-18) H D 03/12/19 05:10 Creatinine 5.12 mg/dL (0.55-1.3) H* D 03/12/19 05:10 Glucose 115 mg/dL (74-106) H 03/12/19 05:10 Phosphorus Cancelled 03/10/19 07:00 Magnesium 2.3 mg/dL (1.8-2.4) 03/12/19 05:10 Total Bilirubin 0.4 mg/dL (0.2-1.0) 03/08/19 02:30 AST 27 U/L (15-37) 03/08/19 02:30 ALT < 6 U/L (12-78) L 03/08/19 02:30 Alkaline Phosphatase 110 U/L (45-117) 03/08/19 02:30 Lipase 56 U/L (73-393) L 03/08/19 02:30 Home Medications: Gabapentin [Neurontin*] 100 mg PO BID 12/31/12 Pravastatin [Pravachol*] 40 mg PO BEDTIME 12/31/12 Carbidopa/Levodopa [Carbidopa-Levo 25-100 mg Odt] 1 tab PO BID 09/12/16 Pregabalin [Lyrica] 75 mg PO BID 05/25/18 Clopidogrel Bisulfate [Plavix] 75 mg PO BEDTIME 08/20/18 Ascorbic Acid [Vitamin C] 500 mg PO DAILY 10/14/18 Aspirin [Adult Low Dose Aspirin EC] 81 mg PO DAILY 10/14/18 Zinc Sulfate [Zinc Sulfate*] 220 mg PO DAILY 10/14/18 Acetaminophen [Tylenol] 2 tab PO Q6H PRN 03/08/19 Acetaminophen with Codeine [Acetaminophen-Cod #3 Tablet] 1 each PO Q12H PRN Famotidine [Pepcid] 20 mg PO BEDTIME 03/08/19 Folic Acid/Vit Bcomp,C [Renal-Pedro Tablet] 1 tab PO DAILY 03/08/19 Gentamicin Sulfate 15 gm TP DAILY 03/08/19 Insulin Glargine,Hum.rec.anlog [Lantus Solostar] 23 units SQ DAILY 03/08/19 Sertraline HCl 75 mg PO DAILY 03/08/19 Sevelamer Carbonate [Renvela*] 1 tab PO TIDWM 03/08/19 Cephalexin [Keflex] 500 mg PO BID 10 Days #30 capsule 03/12/19 Doxycycline Hyclate [Acticlate] 150 mg PO BID 10 Days #20 tablet 03/12/19 New Medications: Cephalexin [Keflex] 500 mg PO BID 10 Days #30 capsule Doxycycline Hyclate [Acticlate] 150 mg PO BID 10 Days #20 tablet Diet: Renal Activity: Ad reji Physician Review: Patient Assessed, Agree with Above Assessment and Plan Time spent managing pt's care (in minutes): 45
[2019-03-12] MEDS: ASPIRIN EC 81 MG TAB PO SCH (11:49)
[2019-03-12] MEDS: MULTIVITAMINS,THERAPEUT 1 TAB PO SCH (11:49)
[2019-03-12] MEDS: SEVELAMER CARBONATE 800 MG TABLET PO SCH ×3 (11:49→16:50)
[2019-03-12] MEDS: CARBIDOPA/LEVODOPA 25/100 TAB PO SCH (11:50)
[2019-03-12] MEDS: HEPARIN 5000 UNIT/ML 1 ML VIAL SQ SCH (11:50)
[2019-03-12] MEDS: ZINC SULFATE 220 MG CAP PO SCH (11:50)
[2019-03-12] MEDS: ASCORBIC ACID 500 MG TABLET PO SCH (11:50)
[2019-03-12] MEDS: CEFEPIME/SWI 1gm 10 ML IV SCH (11:51)
[2019-03-12] MEDS: COLLAGENASE 30 GM OINTMENT TOP SCH (11:51)
[2019-03-12] MEDS: JUVEN PACKET PO SCH (11:51)
[2019-03-12] MEDS: SERTRALINE HCL 50 MG TAB PO SCH (11:55)
--- NOTE | 2019-03-12 15:55 | PN ---
Subjective: The patient is lying in bed. No new acute event. Chart reviewed. Objective: Vital Signs: Temperature 98.5, pulse 78, respirations 16, blood pressure 138/67. Lungs: Basal crackles. Heart: S1, S2. Regular. Abdomen: Soft. Bowel sounds present. Extremity: Right thigh and sacral wound noted. Laboratory Data: Shows WBC 7.1, hemoglobin 11, platelets are 212. Chemistry shows sodium 139, potas sium 3.7, chloride 101, bicarb 36, BUN 54, creatinine 5.1, glucose is 115. Micro data is growing Pro teus mirabilis and MRSA. Assessment And Plan: Sacral wound, improving. Apply Medihoney to the wound site. Right thigh wound to apply Dakin's solution of wash, packing for daily. Continue antibiotic and wound care. We will follow the patient as needed. Total course of 4-6 weeks. PEDRO/ANDRE Voice ID: [id number] Report ID: [id number]
[2019-03-12 16:34] VITALS: BP 121/58; TEMP 98.4
[2019-03-13] MEDS ORDERED: MEDIHONEY 44 ML TOPICAL TUBE TOP SCH (09:00)
[2019-03-13] MEDS ORDERED: SODIUM HYPOCHLORITE 0.5% 473 ML TOP SCH (09:00)
== END 2019-03-12 17:40 | DRG 871 ==
LOC: ER 02:13 → ERHOLD 05:21 → 3RD-ICU 08:29 → 4TH 03-09 14:22
PROVIDERS: ADMIT Internal Medicine; ATTEND Internal Medicine
PROC: 06HM33Z Insertion of Infusion Device into Right Femoral Vein, Percutaneous Approach (ICD-10-PCS; principal; 2019-03-08)
DX: A41.9 Sepsis, unspecified organism (principal); J96.01 Acute respiratory failure with hypoxia; J69.0 Pneumonitis due to inhalation of food and vomit; N18.6 End stage renal disease; R65.21 Severe sepsis with septic shock; G92 Toxic encephalopathy; I12.0 Hypertensive chronic kidney disease with stage 5 chronic kidney disease or end stage renal disease; B96.4 Proteus (mirabilis) (morganii) as the cause of diseases classified elsewhere; R65.20 Severe sepsis without septic shock; E11.22 Type 2 diabetes mellitus with diabetic chronic kidney disease; E11.40 Type 2 diabetes mellitus with diabetic neuropathy, unspecified; E11.51 Type 2 diabetes mellitus with diabetic peripheral angiopathy without gangrene; E11.21 Type 2 diabetes mellitus with diabetic nephropathy; L89.150 Pressure ulcer of sacral region, unstageable; L89.890 Pressure ulcer of other site, unstageable; L89.622 Pressure ulcer of left heel, stage 2; D63.1 Anemia in chronic kidney disease; E78.5 Hyperlipidemia, unspecified; E88.89 Other specified metabolic disorders; F32.9 Major depressive disorder, single episode, unspecified; G40.909 Epilepsy, unspecified, not intractable, without status epilepticus; S00.03XA Contusion of scalp, initial encounter; W19.XXXA Unspecified fall, initial encounter; Z89.511 Acquired absence of right leg below knee; Z74.01 Bed confinement status; Z79.82 Long term (current) use of aspirin; Z79.4 Long term (current) use of insulin; Z86.73 Personal history of transient ischemic attack (TIA), and cerebral infarction without residual deficits
CPT/HCPCS: 36415; 51702; 70450; 71045; 71250; 80048; 80053; 80202; 81003; 81015; 82805; 82962; 83605; 83690; 83735; 84100; 84145; 84484; 85025; 85610; 85730; 87040; 87070; 87077; 87086; 87088; 87186; 87205; 90935; 93005; 94640; 94760; 97163; 99285; J0692; J1644; J2543; J3590; J7030; J7060; P9047

== ENCOUNTER 2019-03-26 19:13 | Emergency (ER) | payer OTHER ==
--- OUTSIDE RECORDS SUMMARY | 2019-03-26 19:18 | XMS REPORT | Clinical Summary ---
:1945 Author Organization [facility] Address [address] [place] [address] Care Team Providers Name Role Phone Robert [...] Bill Lynch, MD David 08/22/2018 Travel after 03/25/2018 Family History Medical History Relation Name Comments [...] Taken Blood Pressure 128/58 09/18/2018 1:34 PM [facility] Pulse 69 09/18/2018 1:34 PM [facility] Temperature 36.6 C (97.9 F) 09/18/2018 1:34 PM [facility] Respiratory Rate 18 09/18/2018 1:34 PM [facility] Oxygen Saturation 97% 09/18/2018 1:34 PM [facility] Inhaled Oxygen Concentration 21% 09/15/2018 2:35 PM [facility] Weight 79.6 kg (175 lb 7.8 oz) 09/18/2018 3:00 AM [facility] N[facility] Height 170.2 cm (5' 7") 08/22/2018 2:00 AM [facility] N[facility] Body Mass Index 27.49 09/18/2018 3:00 AM [facility] N[facility] Plan of Treatment Not on file Implants Implanted Type Area Liability Claims Manager Device Shelf Model / Identifier Expiration Serial / Date Lot Flseal Vhsd Full Strlprep 10ml [id number] - [id number] Cement/Andrea Right: HANDLEY: BIOSCI 11/20/2019 [id number] / Implanted: Qty: 1 on 08/30/2018 by Geovanni Crabtree MD ler/Adhesi Leg / ve [id number] Mesh Mtrx Wnd Bilyr 10x12.5sq [id number] - [id number] Tissue Right: [employer] 03/09/2020 [id number] / Implanted: Qty: 1 on 09/13/2018 by Aba Millan DPM Graft/Subs Foot / titute [id number] Procedures Procedure Name Priority Date/Time Associated Comments Diagnosis RHYTHM STRIP - SCAN 12/12/2018 1:22 PM CDT CARDIAC CATH REPORT - 10/08/2018 12:41 SCAN PM [facility] N[facility]SE RHYTHM STRIP - SCAN 10/08/2018 12:41 PM [facility] POCT-GLUCOSE METER Routine 09/18/2018 1:32 Results for this PM [facility] procedure are in the results section. HEMODIALYSIS Routine 09/18/2018 1:06 Results for this INPATIENT PM [facility] procedure are in the results section. POCT-GLUCOSE METER Routine 09/18/2018 7:36 Results for this AM [facility] procedure are in the results section. CBC W/PLT COUNT & Routine 09/18/2018 3:33 Results for this AUTO DIFFERENTIAL AM [facility] procedure are in the results section. CBC W/PLT COUNT & Routine 09/18/2018 3:33 Results for this AUTO DIFFERENTIAL AM [facility] N[facility] procedure are in the results section. BASIC METABOLIC PANEL Routine 09/18/2018 3:33 Results for this (7) AM [facility] procedure are in the results section. PHOSPHORUS Routine 09/18/2018 3:33 Results for this AM [facility] procedure are in the results section. MAGNESIUM Routine 09/18/2018 3:33 Results for this AM [facility] procedure are in the results section. POCT-GLUCOSE METER Routine 09/17/2018 9:32 Results for this PM [facility] procedure are in the results section. POCT-GLUCOSE METER Routine 09/17/2018 5:42 Results for this PM [facility] procedure are in the results section. POCT-GLUCOSE METER Routine 09/17/2018 12:37 Results for this PM [facility] procedure are in the results section. POCT-GLUCOSE METER Routine 09/17/2018 8:45 Results for this AM [facility] procedure are in the results section. CBC W/PLT COUNT & Routine 09/17/2018 4:00 Results for this AUTO DIFFERENTIAL AM [facility] N[facility]SE procedure are in the results section. PHOSPHORUS Routine 09/17/2018 4:00 Results for this AM [facility] N[facility] procedure are in the results section. MAGNESIUM Routine 09/17/2018 4:00 Results for this AM [facility] procedure are in the results section. CBC W/PLT COUNT & Routine 09/17/2018 4:00 Results for this AUTO DIFFERENTIAL AM [facility] procedure are in the results section. POCT-GLUCOSE METER Routine 09/16/2018 9:24 Results for this PM [facility] procedure are in the results section. POCT-GLUCOSE METER Routine 09/16/2018 5:38 Results for this PM [facility] procedure are in the results section. HEMODIALYSIS Routine 09/16/2018 1:49 Results for this INPATIENT PM [facility] procedure are in the results section. POCT-GLUCOSE METER Routine 09/16/2018 1:27 Results for this PM [facility] procedure are in the results section. BASIC METABOLIC PANEL Add-On 09/16/2018 9:59 Results for this (7) AM [facility] procedure are in the results section. POCT-GLUCOSE METER Routine 09/16/2018 7:42 Results for this AM [facility] procedure are in the results section. CBC W/PLT COUNT & Routine 09/16/2018 5:26 Results for this AUTO DIFFERENTIAL AM [facility] N[facility] procedure are in the results section. PHOSPHORUS Routine 09/16/2018 5:26 Results for this AM [facility] NUR[facility] procedure are in the results section. MAGNESIUM Routine 09/16/2018 5:26 Results for this AM [facility] N[facility] procedure are in the results section. CBC W/PLT COUNT & Routine 09/16/2018 5:26 Results for this AUTO DIFFERENTIAL AM [facility] N[facility] procedure are in the results section. POCT-GLUCOSE METER Routine 09/15/2018 9:15 Results for this PM [facility] procedure are in the results section. POCT-GLUCOSE METER Routine 09/15/2018 5:23 Results for this PM [facility] procedure are in the results section. POCT-GLUCOSE METER Routine 09/15/2018 11:14 Results for this AM [facility] procedure are in the results section. XR FOOT RIGHT 3 VIEW Routine 09/15/2018 8:01 Results for this AM [facility] procedure are in the results section. POCT-GLUCOSE METER Routine 09/15/2018 7:43 Results for this AM [facility] procedure are in the results section. CBC W/PLT COUNT & Routine 09/15/2018 4:35 Results for this AUTO DIFFERENTIAL AM [facility] N[facility] procedure are in the results section. PHOSPHORUS Routine 09/15/2018 4:35 Results for this AM [facility] procedure are in the results section. MAGNESIUM Routine 09/15/2018 4:35 Results for this AM [facility] procedure are in the results section. CBC W/PLT COUNT & Routine 09/15/2018 4:35 Results for this AUTO DIFFERENTIAL AM [facility] N[facility] procedure are in the results section. POCT-GLUCOSE METER Routine 09/14/2018 9:25 Results for this PM [facility] procedure are in the results section. TRANSFUSION SERVICE 09/14/2018 5:50 REPORT - SCAN PM [facility] POCT-GLUCOSE METER Routine 09/14/2018 5:14 Results for this PM [facility] procedure are in the results section. POCT-GLUCOSE METER Routine 09/14/2018 1:12 Results for this PM [facility] procedure are in the results section. POCT-GLUCOSE METER Routine 09/14/2018 7:34 Results for this AM [facility] N[facility] procedure are in the results section. CBC W/PLT COUNT & Routine 09/14/2018 3:21 Results for this AUTO DIFFERENTIAL AM [facility] N[facility] procedure are in the results section. BASIC METABOLIC PANEL Routine 09/14/2018 3:21 Results for this (7) AM [facility] procedure are in the results section. PHOSPHORUS Routine 09/14/2018 3:21 Results for this AM [facility] N[facility] procedure are in the results section. MAGNESIUM Routine 09/14/2018 3:21 Results for this AM [facility] N[facility] procedure are in the results section. CBC W/PLT COUNT & Routine 09/14/2018 3:21 Results for this AUTO DIFFERENTIAL AM [facility] NUR[facility] procedure are in the results section. POCT-GLUCOSE METER Routine 09/13/2018 10:27 Results for this PM [facility] N[facility] procedure are in the results section. POCT-GLUCOSE METER Routine 09/13/2018 7:18 Results for this PM [facility] procedure are in the results section. POCT-GLUCOSE METER Routine 09/13/2018 5:30 Results for this PM [facility] procedure are in the results section. HEMODIALYSIS Routine 09/13/2018 2:17 INPATIENT PM [facility] POCT-GLUCOSE METER Routine 09/13/2018 9:43 Results for this AM [facility] procedure are in the results section. POCT-GLUCOSE METER Routine 09/13/2018 9:01 Results for this AM [facility] procedure are in the results section. TYPE AND SCREEN, STAT 09/13/2018 8:36 Results for this AUTOMATED AM [facility] procedure are in the results section. TISSUE EXAM AP Routine 09/13/2018 8:20 Results for this AM [facility] procedure are in the results section. IMPLANT,GRAFTJACKET 09/13/2018 7:35 Non-healing AM [facility] N[facility]SE surgical wound, initial encounter Special Needs (GRAFT JACKET, PULSE LAVAGE, WOUND VAC) AMPUTATION,FOOT 09/13/2018 7:35 AM [facility] NURSE Non-healing surgical wound, initial encounter Special Needs (GRAFT JACKET, PULSE LAVAGE, WOUND VAC) DEBRIDEMENT/I&D,WOUND EXTREMITY 09/13/2018 7:35 AM [facility] NURSE Non-healing surgical LOWER wound, initial encounter Special Needs (GRAFT JACKET, PULSE LAVAGE, WOUND VAC) CBC W/PLT COUNT & Routine 09/13/2018 4:45 AM Results for this AUTO DIFFERENTIAL [facility] procedure are in the results section. PHOSPHORUS Routine 09/13/2018 4:45 AM Results for this [facility] N[facility] procedure are in the results section. MAGNESIUM Routine 09/13/2018 4:45 AM Results for this [facility] procedure are in the results section. CBC W/PLT COUNT & Routine 09/13/2018 4:45 AM Results for this AUTO DIFFERENTIAL [facility] procedure are in the results section. BASIC METABOLIC PANEL Routine 09/13/2018 4:45 AM Results for this (7) [facility] procedure are in the results section. POCT-GLUCOSE METER Routine 09/12/2018 8:47 PM Results for this [facility] procedure are in the results section. POCT-GLUCOSE METER Routine 09/12/2018 6:14 PM Results for this [facility] procedure are in the results section. POCT-GLUCOSE METER Routine 09/12/2018 1:13 PM Results for this [facility] N[facility] procedure are in the results section. POCT-GLUCOSE METER Routine 09/12/2018 9:39 AM Results for this [facility] N[facility] procedure are in the results section. CBC W/PLT COUNT & Routine 09/12/2018 4:34 AM Results for this AUTO DIFFERENTIAL [facility] N[facility] procedure are in the results section. PHOSPHORUS Routine 09/12/2018 4:34 AM Results for this [facility] N[facility] procedure are in the results section. MAGNESIUM Routine 09/12/2018 4:34 AM Results for this [facility] N[facility] procedure are in the results section. CBC W/PLT COUNT & Routine 09/12/2018 4:34 AM Results for this AUTO DIFFERENTIAL [facility] NURSE procedure are in the results section. POCT-GLUCOSE METER Routine 09/11/2018 9:15 PM Results for this [facility] NUR[facility] procedure are in the results section. POCT-GLUCOSE METER Routine 09/11/2018 5:49 PM Results for this [facility] N[facility] procedure are in the results section. POCT-GLUCOSE METER Routine 09/11/2018 1:03 PM Results for this [facility] N[facility] procedure are in the results section. POCT-GLUCOSE METER Routine 09/11/2018 10:27 AM Results for this [facility] procedure are in the results section. VITAMIN B12 AND Routine 09/11/2018 10:19 AM Results for this FOLATE [facility] N[facility]SE procedure are in the results section. HEMODIALYSIS Routine 09/11/2018 9:53 AM Results for this INPATIENT [facility] procedure are in the results section. POCT-GLUCOSE METER Routine 09/11/2018 7:39 AM Results for this [facility] procedure are in the results section. CBC W/PLT COUNT & Routine 09/11/2018 4:51 AM Results for this AUTO DIFFERENTIAL [facility] procedure are in the results section. PHOSPHORUS Routine 09/11/2018 4:51 AM Results for this [facility] NUR[facility] procedure are in the results section. MAGNESIUM Routine 09/11/2018 4:51 AM Results for this [facility] procedure are in the results section. CBC W/PLT COUNT & Routine 09/11/2018 4:51 AM Results for this AUTO DIFFERENTIAL [facility] procedure are in the results section. POCT-GLUCOSE METER Routine 09/10/2018 11:08 PM Results for this [facility] procedure are in the results section. POCT-GLUCOSE METER Routine 09/10/2018 5:31 PM Results for this [facility] procedure are in the results section. POCT-GLUCOSE METER Routine 09/10/2018 1:40 PM Results for this [facility] procedure are in the results section. POCT-GLUCOSE METER Routine 09/10/2018 9:47 AM Results for this [facility] procedure are in the results section. CBC W/PLT COUNT & Routine 09/10/2018 4:50 AM Results for this AUTO DIFFERENTIAL [facility] procedure are in the results section. PHOSPHORUS Routine 09/10/2018 4:50 AM Results for this [facility] procedure are in the results section. MAGNESIUM Routine 09/10/2018 4:50 AM Results for this [facility] procedure are in the results section. CBC W/PLT COUNT & Routine 09/10/2018 4:50 AM Results for this AUTO DIFFERENTIAL [facility] procedure are in the results section. POCT-GLUCOSE METER Routine 09/09/2018 9:06 PM Results for this [facility] procedure are in the results section. POCT-GLUCOSE METER Routine 09/09/2018 4:46 PM Results for this [facility] procedure are in the results section. HEMODIALYSIS Routine 09/09/2018 4:12 PM Results for this INPATIENT [facility] procedure are in the results section. POCT-GLUCOSE METER Routine 09/09/2018 1:04 PM Results for this [facility] procedure are in the results section. POCT-GLUCOSE METER Routine 09/09/2018 9:24 AM Results for this [facility] procedure are in the results section. CBC W/PLT COUNT & Routine 09/09/2018 3:56 AM Results for this AUTO DIFFERENTIAL [facility] procedure are in the results section. PHOSPHORUS Routine 09/09/2018 3:56 AM Results for this [facility] procedure are in the results section. MAGNESIUM Routine 09/09/2018 3:56 AM Results for this [facility] procedure are in the results section. CBC W/PLT COUNT & Routine 09/09/2018 3:56 AM Results for this AUTO DIFFERENTIAL [facility] procedure are in the results section. BASIC METABOLIC PANEL Routine 09/09/2018 3:56 AM Results for this (7) [facility] procedure are in the results section. POCT-GLUCOSE METER Routine 09/08/2018 9:44 PM Results for this [facility] procedure are in the results section. TRANSFUSION SERVICE 09/08/2018 6:00 PM REPORT - SCAN [facility] POCT-GLUCOSE METER Routine 09/08/2018 5:06 PM Results for this [facility] procedure are in the results section. POCT-GLUCOSE METER Routine 09/08/2018 1:52 PM Results for this [facility] procedure are in the results section. POCT-GLUCOSE METER Routine 09/08/2018 10:20 AM Results for this [facility] procedure are in the results section. POCT-GLUCOSE METER Routine 09/08/2018 7:58 AM Results for this [facility] procedure are in the results section. CBC W/PLT COUNT & Routine 09/08/2018 3:32 AM Results for this AUTO DIFFERENTIAL [facility] procedure are in the results section. PHOSPHORUS Routine 09/08/2018 3:32 AM Results for this [facility] N[facility] procedure are in the results section. MAGNESIUM Routine 09/08/2018 3:32 AM Results for this [facility] procedure are in the results section. CBC W/PLT COUNT & Routine 09/08/2018 3:32 AM Results for this AUTO DIFFERENTIAL [facility] procedure are in the results section. PREPARE LEUKO-REDUCED Routine 09/07/2018 11:54 PM Results for this RBC [facility] procedure are in the results section. PREPARE LEUKO-REDUCED Routine 09/07/2018 11:54 PM Results for this RBC [facility] procedure are in the results section. POCT-GLUCOSE METER Routine 09/07/2018 9:32 PM Results for this [facility] procedure are in the results section. TRANSFUSION SERVICE 09/07/2018 6:01 PM REPORT - SCAN [facility] POCT-GLUCOSE METER Routine 09/07/2018 4:46 PM Results for this [facility] procedure are in the results section. POCT-GLUCOSE METER Routine 09/07/2018 12:43 PM Results for this [facility] procedure are in the results section. POCT-GLUCOSE METER Routine 09/07/2018 11:42 AM Results for this [facility] procedure are in the results section. XR FOOT RIGHT 3 VIEW Routine 09/07/2018 10:19 AM Results for this [facility] procedure are in the results section. POCT-GLUCOSE METER Routine 09/07/2018 9:55 AM Results for this [facility] procedure are in the results section. FUNGUS CULTURE + Routine 09/07/2018 9:04 AM Results for this SMEAR [facility] procedure are in the results section. AFB CULTURE + SMEAR Routine 09/07/2018 9:03 AM Results for this [facility] procedure are in the results section. ANAEROBIC CULTURE Routine 09/07/2018 9:03 AM Results for this [facility] procedure are in the results section. SURGICALLY OBTAINED Routine 09/07/2018 9:03 AM Results for this CULTURE + GRAM STAIN [facility] procedure are in the results section. FUNGUS CULTURE + Routine 09/07/2018 8:40 AM Results for this SMEAR [facility]UR[facility] procedure are in the results section. AFB CULTURE + SMEAR Routine 09/07/2018 8:39 AM Results for this [facility] NUR[facility] procedure are in the results section. ANAEROBIC CULTURE Routine 09/07/2018 8:39 AM Results for this [facility] procedure are in the results section. SURGICALLY OBTAINED Routine 09/07/2018 8:39 AM Results for this CULTURE + GRAM STAIN [facility] procedure are in the results section. FUNGUS CULTURE + Routine 09/07/2018 8:39 AM Results for this SMEAR [facility] NUR[facility] procedure are in the results section. AFB CULTURE + SMEAR Routine 09/07/2018 8:37 AM Results for this [facility]UR[facility] procedure are in the results section. ANAEROBIC CULTURE Routine 09/07/2018 8:37 AM Results for this [facility] NUR[facility] procedure are in the results section. SURGICALLY OBTAINED Routine 09/07/2018 8:37 AM Results for this CULTURE + GRAM STAIN [facility] procedure are in the results section. TISSUE EXAM AP Routine 09/07/2018 8:37 AM Results for this [facility] procedure are in the results section. AMPUTATION,FOOT 09/07/2018 8:00 AM Open wound of [facility] N[facility] right lower extremity, initial encounter Case Notes 2 HOURS Special Needs (GUILLITIN) POCT-GLUCOSE METER Routine 09/07/2018 4:55 AM Results for this [facility] procedure are in the results section. CBC W/PLT COUNT & AUTO Routine 09/07/2018 4:37 AM Results for this DIFFERENTIAL [facility] procedure are in the results section. POTASSIUM Routine 09/07/2018 4:37 AM Results for this [facility] N[facility] procedure are in the results section. PHOSPHORUS Routine 09/07/2018 4:37 AM Results for this [facility] N[facility] procedure are in the results section. MAGNESIUM Routine 09/07/2018 4:37 AM Results for this [facility] NUR[facility] procedure are in the results section. CBC W/PLT COUNT & AUTO Routine 09/07/2018 4:37 AM Results for this DIFFERENTIAL [facility] procedure are in the results section. POCT-GLUCOSE METER Routine 09/06/2018 8:29 PM Results for this [facility] procedure are in the results section. TRANSFUSION SERVICE 09/06/2018 6:01 PM REPORT - SCAN [facility] NUR[facility] TRANSFUSE Routine 09/06/2018 5:16 PM LEUKO-REDUCED RED [facility] NURSE BLOOD CELLS POCT-GLUCOSE METER Routine 09/06/2018 3:36 PM Results for this [facility] N[facility] procedure are in the results section. HEMODIALYSIS INPATIENT Routine 09/06/2018 2:29 PM [facility] NURSE TRANSFUSE Routine 09/06/2018 12:13 PM LEUKO-REDUCED RED [facility] NUR[facility] BLOOD CELLS POTASSIUM Routine 09/06/2018 9:28 AM Results for this [facility] NUR[facility] procedure are in the results section. CBC W/PLT COUNT & AUTO Routine 09/06/2018 4:45 AM Results for this DIFFERENTIAL [facility] N[facility] procedure are in the results section. PHOSPHORUS Routine 09/06/2018 4:45 AM Results for this [facility] NUR[facility] procedure are in the results section. MAGNESIUM Routine 09/06/2018 4:45 AM Results for this [facility] NUR[facility] procedure are in the results section. CBC W/PLT COUNT & AUTO Routine 09/06/2018 4:45 AM Results for this DIFFERENTIAL [facility] procedure are in the results section. POCT-GLUCOSE METER Routine 09/05/2018 5:41 PM Results for this [facility] N[facility] procedure are in the results section. POCT-GLUCOSE METER Routine 09/05/2018 12:53 PM Results for this [facility] procedure are in the results section. TYPE AND SCREEN, Routine 09/05/2018 10:17 AM Results for this AUTOMATED [facility] procedure are in the results section. BLOOD CULTURE Routine 09/05/2018 10:13 AM Results for this [facility] procedure are in the results section. POCT-GLUCOSE METER Routine 09/05/2018 8:17 AM Results for this [facility] N[facility] procedure are in the results section. BLOOD CULTURE Routine 09/05/2018 6:47 AM Results for this [facility] NUR[facility] procedure are in the results section. CBC W/PLT COUNT & AUTO Routine 09/05/2018 4:49 AM Results for this DIFFERENTIAL [facility] NURSE procedure are in the results section. PHOSPHORUS Routine 09/05/2018 4:49 AM Results for this [facility] NUR[facility] procedure are in the results section. MAGNESIUM Routine 09/05/2018 4:49 AM Results for this [facility] N[facility] procedure are in the results section. CBC W/PLT COUNT & AUTO Routine 09/05/2018 4:49 AM Results for this DIFFERENTIAL [facility] procedure are in the results section. POCT-GLUCOSE METER Routine 09/04/2018 11:28 PM Results for this [facility] procedure are in the results section. HEMODIALYSIS INPATIENT Routine 09/04/2018 10:10 PM Results for this [facility] procedure are in the results section. 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 POCT-GLUCOSE METER Routine 09/04/2018 12:03 PM Results for this [facility] N[facility] procedure are in the results section. POCT-GLUCOSE METER Routine 09/04/2018 7:59 AM Results for this [facility] N[facility] procedure are in the results section. CBC W/PLT COUNT & AUTO Routine 09/04/2018 3:50 AM Results for this DIFFERENTIAL [facility] procedure are in the results section. BASIC METABOLIC PANEL Routine 09/04/2018 3:50 AM Results for this (7) [facility] procedure are in the results section. PHOSPHORUS Routine 09/04/2018 3:50 AM Results for this [facility] NUR[facility] procedure are in the results section. MAGNESIUM Routine 09/04/2018 3:50 AM Results for this [facility] procedure are in the results section. CBC W/PLT COUNT & AUTO Routine 09/04/2018 3:50 AM Results for this DIFFERENTIAL [facility] procedure are in the results section. ARTERIAL DOPPLER ARM, Routine 09/03/2018 9:40 PM Results for this LEFT [facility] procedure are in the results section. VENOUS DOPPLER ARM, Routine 09/03/2018 9:26 PM Results for this LEFT [facility] procedure are in the results section. POCT-GLUCOSE METER Routine 09/03/2018 8:30 PM Results for this [facility] procedure are in the results section. POCT-GLUCOSE METER Routine 09/03/2018 6:03 PM Results for this [facility] N[facility] procedure are in the results section. POCT-GLUCOSE METER Routine 09/03/2018 12:48 PM Results for this [facility] procedure are in the results section. RESPIRATORY PANEL [facility] Routine 09/03/2018 12:32 PM Results for this [facility] N[facility] procedure are in the results section. POCT-GLUCOSE METER Routine 09/03/2018 7:52 AM Results for this [facility] NUR[facility] procedure are in the results section. CBC W/PLT COUNT & AUTO Routine 09/03/2018 3:57 AM Results for this DIFFERENTIAL CARDIAC CARE UNIT NURSE procedure are in the results section. BASIC METABOLIC PANEL Routine 09/03/2018 3:57 AM Results for this (7) CARDIAC CARE UNIT NURSE procedure are in the results section. PHOSPHORUS Routine 09/03/2018 3:57 AM Results for this CARDIAC CARE UNIT NURSE procedure are in the results section. MAGNESIUM Routine 09/03/2018 3:57 AM Results for this CARDIAC CARE UNIT NURSE procedure are in the results section. CBC W/PLT COUNT & AUTO Routine 09/03/2018 3:57 AM Results for this DIFFERENTIAL CARDIAC CARE UNIT NURSE procedure are in the results section. POCT-GLUCOSE METER Routine 09/02/2018 8:46 PM Results for this CARDIAC CARE UNIT NURSE procedure are in the results section. POCT-GLUCOSE METER Routine 09/02/2018 5:25 PM Results for this CARDIAC CARE UNIT NURSE procedure are in the results section. HEMODIALYSIS INPATIENT Routine 09/02/2018 3:33 PM Results for this CARDIAC CARE UNIT NURSE procedure are in the results section. POCT-GLUCOSE METER Routine 09/02/2018 1:25 PM Results for this CARDIAC CARE UNIT NURSE procedure are in the results section. POCT-GLUCOSE METER Routine 09/02/2018 7:59 AM Results for this CARDIAC CARE UNIT NURSE procedure are in the results section. CBC W/PLT COUNT & AUTO Routine 09/02/2018 3:21 AM Results for this DIFFERENTIAL CARDIAC CARE UNIT NURSE procedure are in the results section. PHOSPHORUS Routine 09/02/2018 3:21 AM Results for this CARDIAC CARE UNIT NURSE procedure are in the results section. MAGNESIUM Routine 09/02/2018 3:21 AM Results for this CARDIAC CARE UNIT NURSE procedure are in the results section. CBC W/PLT COUNT & AUTO Routine 09/02/2018 3:21 AM Results for this DIFFERENTIAL CARDIAC CARE UNIT NURSE procedure are in the results section. BASIC METABOLIC PANEL Routine 09/02/2018 3:21 AM Results for this (7) CARDIAC CARE UNIT NURSE procedure are in the results section. FERRITIN Routine 09/02/2018 3:21 AM Results for this CARDIAC CARE UNIT NURSE procedure are in the results section. IRON, TIBC, % SAT. Routine 09/02/2018 3:21 AM Results for this (WITHOUT FERRITIN) CARDIAC CARE UNIT NURSE procedure are in the results section. POCT-GLUCOSE METER Routine 09/01/2018 9:02 PM Results for this CARDIAC CARE UNIT NURSE procedure are in the results section. POCT-GLUCOSE METER Routine 09/01/2018 5:31 PM Results for this CARDIAC CARE UNIT NURSE procedure are in the results section. POCT-GLUCOSE METER Routine 09/01/2018 1:04 PM Results for this CARDIAC CARE UNIT NURSE procedure are in the results section. POCT-GLUCOSE METER Routine 09/01/2018 9:46 AM Results for this CARDIAC CARE UNIT NURSE procedure are in the results section. POCT-GLUCOSE METER Routine 09/01/2018 6:30 AM Results for this CARDIAC CARE UNIT NURSE procedure are in the results section. CBC W/PLT COUNT & AUTO Routine 09/01/2018 5:02 AM Results for this DIFFERENTIAL CARDIAC CARE UNIT NURSE procedure are in the results section. PHOSPHORUS Routine 09/01/2018 5:02 AM Results for this CARDIAC CARE UNIT NURSE procedure are in the results section. MAGNESIUM Routine 09/01/2018 5:02 AM Results for this CARDIAC CARE UNIT NURSE procedure are in the results section. CBC W/PLT COUNT & AUTO Routine 09/01/2018 5:02 AM Results for this DIFFERENTIAL CARDIAC CARE UNIT NURSE procedure are in the results section. BASIC METABOLIC PANEL Routine 09/01/2018 5:02 AM Results for this (7) CARDIAC CARE UNIT NURSE procedure are in the results section. TRANSFUSION SERVICE 08/31/2018 6:01 PM REPORT - SCAN CARDIAC CARE UNIT NURSE POCT-GLUCOSE METER Routine 08/31/2018 5:03 PM Results for this CARDIAC CARE UNIT NURSE procedure are in the results section. POCT-GLUCOSE METER Routine 08/31/2018 12:38 PM Results for this CARDIAC CARE UNIT NURSE procedure are in the results section. POCT-GLUCOSE METER Routine 08/31/2018 7:49 AM Results for this CARDIAC CARE UNIT NURSE procedure are in the results section. CBC W/PLT COUNT & AUTO Routine 08/31/2018 4:05 AM Results for this DIFFERENTIAL CARDIAC CARE UNIT NURSE procedure are in the results section. PHOSPHORUS Routine 08/31/2018 4:05 AM Results for this CARDIAC CARE UNIT NURSE procedure are in the results section. MAGNESIUM Routine 08/31/2018 4:05 AM Results for this CARDIAC CARE UNIT NURSE procedure are in the results section. CBC W/PLT COUNT & AUTO Routine 08/31/2018 4:05 AM Results for this DIFFERENTIAL CARDIAC CARE UNIT NURSE procedure are in the results section. BASIC METABOLIC PANEL Routine 08/31/2018 4:05 AM Results for this (7) CARDIAC CARE UNIT NURSE procedure are in the results section. TROPONIN I Routine 08/31/2018 4:05 AM Results for this CARDIAC CARE UNIT NURSE procedure are in the results section. TROPONIN I Routine 08/30/2018 11:11 PM Results for this CARDIAC CARE UNIT NURSE procedure are in the results section. POCT-GLUCOSE METER Routine 08/30/2018 9:09 PM Results for this CARDIAC CARE UNIT NURSE procedure are in the results section. HEMODIALYSIS INPATIENT Routine 08/30/2018 9:06 PM CARDIAC CARE UNIT NURSE TROPONIN I Routine 08/30/2018 6:27 PM Results for this CARDIAC CARE UNIT NURSE procedure are in the results section. POCT-GLUCOSE METER Routine 08/30/2018 6:26 PM Results for this CARDIAC CARE UNIT NURSE procedure are in the results section. ECG 12-LEAD Routine 08/30/2018 5:10 PM Results for this CARDIAC CARE UNIT NURSE procedure are in the results section. PHOSPHORUS STAT 08/30/2018 4:33 PM Results for this CARDIAC CARE UNIT NURSE procedure are in the results section. TROPONIN I STAT 08/30/2018 4:33 PM Results for this CARDIAC CARE UNIT NURSE procedure are in the results section. MAGNESIUM STAT 08/30/2018 4:33 PM Results for this CARDIAC CARE UNIT NURSE procedure are in the results section. BASIC METABOLIC PANEL STAT 08/30/2018 4:33 PM Results for this (7) CARDIAC CARE UNIT NURSE procedure are in the results section. CBC W/PLT COUNT & AUTO Routine 08/30/2018 12:27 PM Results for this DIFFERENTIAL CARDIAC CARE UNIT NURSE procedure are in the results section. BASIC METABOLIC PANEL Routine 08/30/2018 12:27 PM Results for this (7) CARDIAC CARE UNIT NURSE procedure are in the results section. CBC W/PLT COUNT & AUTO Routine 08/30/2018 12:27 PM Results for this DIFFERENTIAL CARDIAC CARE UNIT NURSE procedure are in the results section. POCT-ACT Routine 08/30/2018 11:27 AM Results for this CARDIAC CARE UNIT NURSE procedure are in the results section. HGB/HCT (H&H) - STAT Routine 08/30/2018 11:26 AM Results for this LAB CARDIAC CARE UNIT NURSE procedure are in the results section. GLUCOSE-STAT LAB Routine 08/30/2018 11:26 AM Results for this CARDIAC CARE UNIT NURSE procedure are in the results section. POTASSIUM-STAT LAB Routine 08/30/2018 11:26 AM Results for this CARDIAC CARE UNIT NURSE procedure are in the results section. SODIUM NA-STAT LAB Routine 08/30/2018 11:26 AM Results for this CARDIAC CARE UNIT NURSE procedure are in the results section. BLOOD GAS, ARTERIAL Routine 08/30/2018 11:26 AM Results for this CARDIAC CARE UNIT NURSE procedure are in the results section. RRL CRITICAL LABS Routine 08/30/2018 11:26 AM Results for this (ABG,NA,K,H&H,GLUCOSE) CARDIAC CARE UNIT NURSE procedure are in the results section. POCT-ACT Routine 08/30/2018 10:41 AM Results for this CARDIAC CARE UNIT NURSE procedure are in the results section. POCT-ACT Routine 08/30/2018 10:16 AM Results for this CARDIAC CARE UNIT NURSE procedure are in the results section. REVASCULARIZATION,DIST 08/30/2018 7:30 AM PAD (peripheral AL AND INTERVAL CARDIAC CARE UNIT NURSE artery disease) LIGATION (DRIL) (HCC) Case Notes RIGHT LEG DISTAL VEIN ARTERIALIZATION4 HRS PER CRESENCIO POCT-GLUCOSE METER Routine 08/30/2018 5:59 AM CARDIAC CARE UNIT NURSE CBC W/PLT COUNT & AUTO Routine 08/30/2018 2:50 AM CARDIAC CARE UNIT NURSE Results for this DIFFERENTIAL procedure are in the results section. CBC W/PLT COUNT & AUTO STAT 08/30/2018 2:50 AM CARDIAC CARE UNIT NURSE Results for this DIFFERENTIAL procedure are in the results section. TYPE AND SCREEN, AUTOMATED Routine 08/30/2018 2:50 AM CARDIAC CARE UNIT NURSE PHOSPHORUS Routine 08/30/2018 2:50 AM CARDIAC CARE UNIT NURSE MAGNESIUM Routine 08/30/2018 2:50 AM CARDIAC CARE UNIT NURSE CBC W/PLT COUNT & AUTO Routine 08/30/2018 2:50 AM CARDIAC CARE UNIT NURSE Results for this DIFFERENTIAL procedure are in the results section. CALCIUM, IONIZED Routine 08/30/2018 2:50 AM CARDIAC CARE UNIT NURSE BASIC METABOLIC PANEL (7) Routine 08/30/2018 2:50 AM CARDIAC CARE UNIT NURSE PROTHROMBIN TIME/INR Routine 08/30/2018 2:50 AM CARDIAC CARE UNIT NURSE BASIC METABOLIC PANEL (7) STAT 08/30/2018 2:50 AM CARDIAC CARE UNIT NURSE CBC W/PLT COUNT & AUTO STAT 08/30/2018 2:50 AM CARDIAC CARE UNIT NURSE Results for this DIFFERENTIAL procedure are in the results section. POCT-GLUCOSE METER Routine 08/30/2018 12:02 AM CARDIAC CARE UNIT NURSE POCT-GLUCOSE METER Routine 08/29/2018 5:21 PM CARDIAC CARE UNIT NURSE POCT-GLUCOSE METER Routine 08/29/2018 1:18 PM CARDIAC CARE UNIT NURSE POCT-GLUCOSE METER Routine 08/29/2018 9:30 AM CARDIAC CARE UNIT NURSE BASIC METABOLIC PANEL (7) Routine 08/29/2018 4:23 AM CARDIAC CARE UNIT NURSE POCT-GLUCOSE METER Routine 08/28/2018 9:27 PM CARDIAC CARE UNIT NURSE POCT-GLUCOSE METER Routine 08/28/2018 5:55 PM CARDIAC CARE UNIT NURSE POCT-GLUCOSE METER Routine 08/28/2018 12:49 PM CARDIAC CARE UNIT NURSE HEMODIALYSIS INPATIENT Routine 08/28/2018 12:40 PM CARDIAC CARE UNIT NURSE POCT-GLUCOSE METER Routine 08/28/2018 9:47 AM CARDIAC CARE UNIT NURSE MAGNESIUM Routine 08/28/2018 3:57 AM CARDIAC CARE UNIT NURSE BASIC METABOLIC PANEL (7) Routine 08/28/2018 3:57 AM CARDIAC CARE UNIT NURSE POCT-GLUCOSE METER Routine 08/27/2018 9:13 PM CARDIAC CARE UNIT NURSE POCT-GLUCOSE METER Routine 08/27/2018 5:53 PM CARDIAC CARE UNIT NURSE POCT-GLUCOSE METER Routine 08/27/2018 11:52 AM CARDIAC CARE UNIT NURSE POCT-GLUCOSE METER Routine 08/27/2018 7:36 AM CARDIAC CARE UNIT NURSE CBC W/PLT COUNT & AUTO Routine 08/27/2018 4:30 AM CARDIAC CARE UNIT NURSE Results for this DIFFERENTIAL procedure are in the results section. PHOSPHORUS Routine 08/27/2018 4:30 AM CARDIAC CARE UNIT NURSE MAGNESIUM Routine 08/27/2018 4:30 AM CARDIAC CARE UNIT NURSE CBC W/PLT COUNT & AUTO Routine 08/27/2018 4:30 AM CARDIAC CARE UNIT NURSE Results for this DIFFERENTIAL procedure are in the results section. BASIC METABOLIC PANEL (7) Routine 08/27/2018 4:30 AM CARDIAC CARE UNIT NURSE POCT-GLUCOSE METER Routine 08/26/2018 9:12 PM CARDIAC CARE UNIT NURSE POCT-GLUCOSE METER Routine 08/26/2018 5:09 PM CARDIAC CARE UNIT NURSE POCT-GLUCOSE METER Routine 08/26/2018 12:37 PM CARDIAC CARE UNIT NURSE HEMODIALYSIS INPATIENT Routine 08/26/2018 12:31 PM CARDIAC CARE UNIT NURSE CBC W/PLT COUNT & AUTO Routine 08/26/2018 6:07 AM CARDIAC CARE UNIT NURSE Results for this DIFFERENTIAL procedure are in the results section. COMPREHENSIVE METABOLIC Routine 08/26/2018 6:07 AM CARDIAC CARE UNIT NURSE Results for this PANEL procedure are in the results section. CALCIUM, IONIZED Routine 08/26/2018 6:07 AM CARDIAC CARE UNIT NURSE PHOSPHORUS Routine 08/26/2018 6:07 AM CARDIAC CARE UNIT NURSE MAGNESIUM Routine 08/26/2018 6:07 AM CARDIAC CARE UNIT NURSE CBC W/PLT COUNT & AUTO Routine 08/26/2018 6:07 AM CARDIAC CARE UNIT NURSE Results for this DIFFERENTIAL procedure are in the results section. POCT-GLUCOSE METER Routine 08/25/2018 8:52 PM CARDIAC CARE UNIT NURSE POCT-GLUCOSE METER Routine 08/25/2018 5:08 PM CARDIAC CARE UNIT NURSE POCT-GLUCOSE METER Routine 08/25/2018 12:55 PM CARDIAC CARE UNIT NURSE POCT-GLUCOSE METER Routine 08/25/2018 9:33 AM CARDIAC CARE UNIT NURSE CBC W/PLT COUNT & AUTO Routine 08/25/2018 4:37 AM CARDIAC CARE UNIT NURSE Results for this DIFFERENTIAL procedure are in the results section. PHOSPHORUS Routine 08/25/2018 4:37 AM CARDIAC CARE UNIT NURSE MAGNESIUM Routine 08/25/2018 4:37 AM CARDIAC CARE UNIT NURSE CBC W/PLT COUNT & AUTO Routine 08/25/2018 4:37 AM CARDIAC CARE UNIT NURSE Results for this DIFFERENTIAL procedure are in the results section. BASIC METABOLIC PANEL (7) Routine 08/25/2018 4:37 AM CARDIAC CARE UNIT NURSE POCT-GLUCOSE METER Routine 08/25/2018 4:30 AM CARDIAC CARE UNIT NURSE POCT-GLUCOSE METER Routine 08/24/2018 9:19 PM CARDIAC CARE UNIT NURSE POCT-GLUCOSE METER Routine 08/24/2018 5:23 PM CARDIAC CARE UNIT NURSE VEIN MAPPING LEG RIGHT Routine 08/24/2018 4:08 PM CARDIAC CARE UNIT NURSE ARTERIAL DOPPLER LEG, RIGHT Routine 08/24/2018 4:08 PM CARDIAC CARE UNIT NURSE POCT-GLUCOSE METER Routine 08/24/2018 2:04 PM CARDIAC CARE UNIT NURSE POCT-GLUCOSE METER Routine 08/24/2018 11:54 AM CARDIAC CARE UNIT NURSE POCT-GLUCOSE METER Routine 08/24/2018 9:07 AM CARDIAC CARE UNIT NURSE POCT-GLUCOSE METER Routine 08/24/2018 8:18 AM CARDIAC CARE UNIT NURSE POCT-GLUCOSE METER Routine 08/24/2018 7:32 AM CARDIAC CARE UNIT NURSE CBC W/PLT COUNT & AUTO Routine 08/24/2018 3:55 AM CARDIAC CARE UNIT NURSE Results for this DIFFERENTIAL procedure are in the results section. RETICULOCYTE COUNT Routine 08/24/2018 3:55 AM CARDIAC CARE UNIT NURSE FERRITIN Routine 08/24/2018 3:55 AM CARDIAC CARE UNIT NURSE IRON, TIBC, % SAT. (WITHOUT Routine 08/24/2018 3:55 AM CARDIAC CARE UNIT NURSE Results for this FERRITIN) procedure are in the results section. PHOSPHORUS Routine 08/24/2018 3:55 AM CARDIAC CARE UNIT NURSE CBC W/PLT COUNT & AUTO Routine 08/24/2018 3:55 AM CARDIAC CARE UNIT NURSE Results for this DIFFERENTIAL procedure are in the results section. MAGNESIUM Routine 08/24/2018 3:55 AM CARDIAC CARE UNIT NURSE BASIC METABOLIC PANEL (7) Routine 08/24/2018 3:55 AM CARDIAC CARE UNIT NURSE POCT-GLUCOSE METER Routine 08/23/2018 9:01 PM CARDIAC CARE UNIT NURSE POCT-GLUCOSE METER Routine 08/23/2018 5:31 PM CARDIAC CARE UNIT NURSE POCT-GLUCOSE METER Routine 08/23/2018 12:07 PM CARDIAC CARE UNIT NURSE HEMODIALYSIS INPATIENT Routine 08/23/2018 11:33 AM CARDIAC CARE UNIT NURSE POCT-GLUCOSE METER Routine 08/23/2018 11:29 AM CARDIAC CARE UNIT NURSE POCT-GLUCOSE METER Routine 08/23/2018 7:39 AM CARDIAC CARE UNIT NURSE CBC W/PLT COUNT & AUTO Routine 08/23/2018 4:48 AM CARDIAC CARE UNIT NURSE Results for this DIFFERENTIAL procedure are in the results section. COMPREHENSIVE METABOLIC Routine 08/23/2018 4:48 AM CARDIAC CARE UNIT NURSE Results for this PANEL procedure are in the results section. PHOSPHORUS Routine 08/23/2018 4:48 AM CARDIAC CARE UNIT NURSE CBC W/PLT COUNT & AUTO Routine 08/23/2018 4:48 AM CARDIAC CARE UNIT NURSE Results for this DIFFERENTIAL procedure are in the results section. MAGNESIUM Routine 08/23/2018 4:48 AM CARDIAC CARE UNIT NURSE POCT-GLUCOSE METER Routine 08/22/2018 8:56 PM CARDIAC CARE UNIT NURSE XR CHEST 1 VIEW Routine 08/22/2018 6:40 PM CARDIAC CARE UNIT NURSE Results for this PORTABLE/BEDSIDE procedure are in the results section. PHOSPHORUS Routine 08/22/2018 6:20 PM CARDIAC CARE UNIT NURSE POCT-GLUCOSE METER Routine 08/22/2018 5:50 PM CARDIAC CARE UNIT NURSE HEPATITIS B SURFACE ANTIGEN Routine 08/22/2018 12:50 PM CARDIAC CARE UNIT NURSE POCT-GLUCOSE METER Routine 08/22/2018 10:32 AM CARDIAC CARE UNIT NURSE POCT-GLUCOSE METER Routine 08/22/2018 7:04 AM CARDIAC CARE UNIT NURSE POCT-GLUCOSE METER Routine 08/22/2018 6:35 AM CARDIAC CARE UNIT NURSE CBC W/PLT COUNT & AUTO Routine 08/22/2018 3:38 AM CARDIAC CARE UNIT NURSE Results for this DIFFERENTIAL procedure are in the results section. PT/APTT Routine 08/22/2018 3:38 AM CARDIAC CARE UNIT NURSE CBC W/PLT COUNT & AUTO Routine 08/22/2018 3:38 AM CARDIAC CARE UNIT NURSE Results for this DIFFERENTIAL procedure are in the results section. MAGNESIUM Routine 08/22/2018 3:38 AM CARDIAC CARE UNIT NURSE BASIC METABOLIC PANEL (7) Routine 08/22/2018 3:38 AM CARDIAC CARE UNIT NURSE after 03/25/2018 Results RHYTHM STRIP - SCAN (12/12/2018 1:22 PM CDT)Only the most recent of2 resultswithin the time period is included. Narrative Performed At CARDIAC CATH REPORT - SCAN (10/08/2018 12:41 PM CARDIAC CARE UNIT NURSE) Narrative Performed At POC-Glucose meter (09/18/2018 1:32 PM CARDIAC CARE UNIT NURSE)Only the most recent of115 resultswithin the time period is included. POC-Glucose Meter 148 (H)Comment: TESTED AT 70 - 110 mg/dL [facility] [address] [place] [address] Specimen Blood Performing Organization Address City/State/Zipcode Phone Number [address] [phone] CENTER HEMODIALYSIS INPATIENT (09/18/2018 1:06 PM CARDIAC CARE UNIT NURSE) Narrative Performed At Elan Valdez RN 09/18/20181:07 [...] count + automated diff (09/18/2018 3:33 AM CARDIAC CARE UNIT NURSE)Only the most recent of28 resultswithin the time period is included. WBC 7.8 3.5 - 10.5 K/L [facility] RBC 2.72 (L) 4.63 - 6.08 M/L [facility] Hemoglobin 8.9 (L) 13.7 - 17.5 GM/DL [facility] Hematocrit 27.9 (L) 40.1 - 51.0 % [facility] MCV 102.6 (H) 79.0 - 92.2 fL [facility] MCH 32.7 (H) 25.7 - 32.2 pg [facility] MCHC 31.9 (L) 32.3 - 36.5 GM/DL [facility] RDW 17.2 (H) 11.6 - 14.4 % [facility] Platelets 244 150 - 450 K/CU MM [facility] MPV 11.2 9.4 - 12.4 fL [facility] nRBC 0 0 - 0 /100 WBC [facility] % Neutros 62 % [facility] % Lymphs 19 % [facility] % Monos 10 % [facility] % Eos 7 % [facility] % Baso 1 % [facility] # Neutros 4.83 1.78 - 5.38 K/L [facility] # Lymphs 1.49 1.32 - 3.57 K/L [facility] # Monos 0.80 0.30 - 0.82 K/L [facility] # Eos 0.51 0.04 - 0.54 K/L [facility] # Baso 0.05 0.01 - 0.08 K/L [facility] Immature 1 0 - 1 % [facility] Specimen Blood Performing Organization Address City/State/Zipcode Phone Number [address] [address] CENTER Phosphorus (09/18/2018 3:33 AM CARDIAC CARE UNIT NURSE)Only the most recent of27 resultswithin the time period is included. Phosphorus 3.2 2.3 - 4.7 mg/dL [facility] Specimen Blood Performing Organization Address City/[facility]/Zipcode Phone Number [address] [address] [phone] CENTER Magnesium (09/18/2018 3:33 AM CARDIAC CARE UNIT NURSE)Only the most recent of28 resultswithin the time period is included. Magnesium 2.1 1.6 - 2.6 mg/dL [facility] Specimen Blood Performing Organization Address City/[facility]/Zipcode Phone Number [address] [address] [phone] [facility] Basic Metabolic Panel (09/18/2018 3:33 AM CARDIAC CARE UNIT NURSE)Only the most recent of20 resultswithin the time period is included. Sodium 136 136 - 145 meq/L [facility] Potassium 4.3 3.5 - 5.1 meq/L [facility] Chloride 97 (L) 98 - 107 meq/L [facility] CO2 27 22 - 29 meq/L [facility] BUN 43 (H) 7 - 21 mg/dL [facility] Creatinine 5.04 (H) 0.57 - 1.25 mg/dL [facility] Glucose 94 70 - 105 mg/dL [facility] Calcium 8.7 8.4 - 10.2 mg/dL [facility] EGFR 11Comment: ESTIMATED GFR IS mL/min/1.[address] [facility] NOT ACCURATE CREATININE [facility] CLEARANCE IN PREDICTING GLOMERULAR FILTRATION RATE. ESTIMATED GFR IS NOT APPLICABLE FOR DIALYSIS PATIENTS. Specimen Blood Performing Organization Address City/State/Zipcode Phone Number [facility] [address] [place] [address] [phone] CENTER HEMODIALYSIS INPATIENT (09/16/2018 1:49 PM CARDIAC CARE UNIT NURSE) Narrative Performed At Skinny Montero RN 09/16/20181:50 [...] foot 3 views right (09/15/2018 8:01 AM CARDIAC CARE UNIT NURSE)Only the most recent of3 resultswithin the time period is included. Specimen Narrative Performed At FINAL REPORT [facility] [...] MD Report Verified Date/Time:09/15/2018 08:28:29 Reading Location: [address] Transitional Reading Room Procedure Note Interface, External Ris In - 09/15/2018 8:30 AM CARDIAC CARE UNIT NURSE FINAL REPORT RIGHT FOOT 3 VIEWS HISTORY: [...] Report Verified Date/Time: 09/15/2018 08:28:29 Reading Location: [address] Transitional Reading Room Performing Organization Address City/State/Zipcode Phone Number [facility] TRANSFUSION SERVICE REPORT - SCAN (09/14/2018 5:50 PM CARDIAC CARE UNIT NURSE)Only the most recent of5 resultswithin the time period is included. Narrative Performed At Type and screen, automated (09/13/2018 8:36 AM CARDIAC CARE UNIT NURSE)Only the most recent of3 resultswithin the time period is included. ABO/RH AUTOMATED (BEAKER) O POSITIVE [facility] Ab Scrn NEGATIVE [facility] Specimen Blood Performing Organization Address City/State/Zipcode Phone Number [facility] [address] [place] [address] Tissue Exam (09/13/2018 8:20 AM CARDIAC CARE UNIT NURSE)Only the most recent of2 resultswithin the time period is included. Case Report Surgical Pathology Report Case: [id number] [facility] Authorizing Provider:Aba Millan DPMCollected: 09/13/2018 0820 [facility] Ordering Location: [facility] PERIOPERATIVE Received: 09/13/2018 0926 SERVICES Pathologist: Carrol Trammell MD Specimen:Metatarsal, Right DIAGNOSIS BONE, RIGHT FOOT , METATARSAL, DEBRIDEMENT: [facility] - GANGRENOUS NECROSIS [facility] - OSTEOMYELITIS - NEGATIVE FOR MALIGNANCY Signing Pathologist Direct Phone Line: [phone] CPT Code(s) [address] [facility] [address] [facility] CLINICAL HISTORY Nonhealing surgical wound [facility] SPECIMEN SOURCE Right metatarsal. [facility] GROSS DESCRIPTION Specimen is received in [facility] formalin-filled container [facility] labeled with the patient's information and labeled "right metatarsal" and consists of multiple fragments of ch hemorrhagic bone and soft tissue measuring 2.5 x 2 x 1 cm in aggregate. Specimen is sectioned and submitted entirely A1-A4 for decalcification. CG/bc MICROSCOPIC DESCRIPTION Performed. [facility] Specimen Tissue - Metatarsal, Right Performing Organization Address City/[facility]/Zipcode Phone Number [facility] [address] [place] [address] [facility] Vitamin B12 and Folate (09/11/2018 10:19 AM CARDIAC CARE UNIT NURSE) Vitamin B12 1,098 (H) 213 - 816 pg/mL [facility] Folate 12.9 >=7.0 ng/mL [facility] Specimen Blood Performing Organization Address City/State/Zipcode Phone Number [facility] [address] [place] [address] [phone] [facility] HEMODIALYSIS INPATIENT (09/11/2018 9:53 AM CARDIAC CARE UNIT NURSE) Narrative Performed At Lana Bales RN 09/11/2018 [...] Bales RN HEMODIALYSIS INPATIENT (09/09/2018 4:12 PM CARDIAC CARE UNIT NURSE) Narrative Performed At Lana Bales RN 09/09/20186:56 [...] RN Prepare Leuko-Red RBC (09/07/2018 11:54 PM CARDIAC CARE UNIT NURSE)Only the most recent of2 resultswithin the time period is included. CROSSMATCH COMPATIBLE [facility]AFET[facility] Unit ABO O Pos [facility] UNIT NUMBER [id number] [facility] [place] Status READY [facility] Blood Bank Product RED BLOOD CELLS [facility] PRODUCT CODE [id number] [facility] CROSSMATCH COMPATIBLE [facility] TX Unit ABO O Pos S[facility] TX UNIT NUMBER [id number] [facility] Status TRANSFUSED [facility] Blood Bank Product RED BLOOD CELLS [facility] PRODUCT CODE [id number] [facility] Specimen Other Performing Organization Address [facility] Phone Number [facility] Fungus culture + smear (09/07/2018 9:04 AM CARDIAC CARE UNIT NURSE)Only the most recent of3 resultswithin the time period is included. Result No fungus isolated in 28 days [facility] Fungus Smear No fungi seen [facility] Specimen Tissue Performing Organization Address [facility] [facility] Phone Number [address] [address] CENTER AFB culture + smear (09/07/2018 9:03 AM CARDIAC CARE UNIT NURSE)Only the most recent of3 resultswithin the time period is included. Result No acid-fast bacilli isolated in [facility] 42 days CENTER [employer] Smear No acid fast bacilli seen [facility] Specimen Tissue Performing Organization Address [facility] Phone Number [address] [address] [phone] [place] Anaerobic culture (09/07/2018 9:03 AM CARDIAC CARE UNIT NURSE)Only the most recent of3 resultswithin the time period is included. Result <1+ Same organism has been isolated from culture(s) of the same body site and collection date. Repeat identification performed only after consultation with the clinical microbiology laboratory. (A) [facility] Comment: MEDICAL CENTER Refer to previous culture of Bacteroides species, not fragilis Specimen Tissue Performing Organization Address [facility] Phone Number [address] [address] [phone] CENTER Surgically obtained culture + gram stain (09/07/2018 9:03 AM CARDIAC CARE UNIT NURSE)Only the most recent of3 resultswithin the time period is included. Result No growth [facility] Gram Stain Result <1+ WBCs [facility] Gram Stain Result No organisms seen [facility] Specimen Tissue Performing Organization Address City/[facility]/Zipcode Phone Number [address] [address] [phone] [place] Potassium (09/07/2018 4:37 AM CARDIAC CARE UNIT NURSE)Only the most recent of2 resultswithin the time period is included. Potassium 4.1 3.5 - 5.1 meq/L [facility] Specimen Blood Performing Organization Address City/[facility]/Zipcode Phone Number [address] [address] [phone] [place] Transfuse Leuko-Red RBC (09/06/2018 5:16 PM CARDIAC CARE UNIT NURSE)Only the most recent of3 resultswithin the time period is included.Blood culture (09/05/2018 10:13 AM CARDIAC CARE UNIT NURSE )Only the most recent of2 resultswithin the time period is included. Result No growth in 5 days [facility] Specimen Blood Performing Organization Address City/[facility]/Zipcode Phone Number [address] [address] [place] HEMODIALYSIS INPATIENT (09/04/2018 10:10 PM CARDIAC CARE UNIT NURSE) Narrative Performed At Josselin Sapp RN 09/04/2018 [...] Arterial doppler arm, left (09/03/2018 9:40 PM CARDIAC CARE UNIT NURSE) Ejection [facility] Specimen Impressions Performed At [facility] ECHO HEART[facility] Left Impression 1. The subclavian, axillary [...] At LAB - Upper Extremities Arterial Duplex [facility] Demographics Patient Name NADIR MENDEZ Date of Study09/03/2018 ANAYA [id number] [id number] Visit Number [id number] Male Accession Number [id number] of Birth1945 [facility] Arnold Khan [id number] Physician SonographerHeamarivel MartinezInterpreting Silvia Salamanca RVT PhysicianMD [...] External Ris In - 09/04/2018 8:06 AM CARDIAC CARE UNIT NURSE PV LAB - Upper Extremities Arterial Duplex Demographics Patient Name NADIR MENEDZ Date of Study 09/03/2018 ANAYA Age 73 Visit Number [id number] Gender Male Accession Number [id number] Date of 1945 Referring David Khan MD Room Number 1831 Physician Pigment Weigher Kimberly Martinez Interpreting Silvia Salamanca T Physician [...] ! ! + +----+-----+----+--------+ Performing Organization Address City/[facility] Phone Number [facility]CHO [facility] Venous doppler arm, left (09/03/2018 9:26 PM CARDIAC CARE UNIT NURSE) Ejection Fraction [facility] Specimen Impressions Performed At [facility] Left Impression 1. There is no [...] At PV LAB - Upper Extremities Veins [facility] Demographics Patient Name NADIR MENDEZ Date of Study09/03/2018 ANAYA [id number] [id number] Visit Number [id number] Male Accession Number [id number] of Birth1945 Arnold Chapa [id number] Physician VuographerKimberly MartinezInterpreting Silvia Salamanca RVT PhysicianMD [...] External Ris In - 09/04/2018 8:06 AM CARDIAC CARE UNIT NURSE PV LAB - Upper Extremities Veins Demographics Patient Name NADIR MENDEZ Date of Study 09/03/2018 ANAYA Age 73 Visit Number [id number] Gender Male Accession Number [id number] Date of 1945 Referring David Khan MD Room Number 1831 Physician Pigment Weigher Kimberly Martinez Interpreting Silvia Salamanca T Physician [...] Number [facility] Respiratory Panel [facility] (09/03/2018 12:32 PM CARDIAC CARE UNIT NURSE) Human Metapneumovirus Not detected Not detected, [facility] Rhinovirus Not detected Not detected, [facility] Influenza A Not detected Not detected, [facility] INFLUENZA A (NO SUBTYPE) Not detected, [facility] Influenza A subtype H1 Not detected, [facility] Influenza A Subtype H3 Not detected, [facility] Influenza A Subtype H1-2009 Not detected, [facility] Influenza B Not detected Not detected, [facility] Respiratory Syncytial Virus Not detected Not detected, [facility] Parainfluenza Virus 1 Not detected Not detected, [facility] Parainfluenza Virus 2 Not detected Not detected, [facility] Parainfluenza virus 3 Not detected Not detected, [facility] Parainfluenza Virus 4 Not detected Not detected, [facility] Adenovirus Not detected Not detected, [facility] Coronavirus 229E Not detected Not detected, [facility] Coronavirus HKU1 Not detected Not detected, [facility] Coronavirus NL63 Not detected Not detected, [facility] Coronavirus OC43 Not detected Not detected, [facility] Bordetella Pertussis Not detected Not detected, [facility] Chlamydophila Pneumoniae Not detected Not detected, [facility] Mycoplasma Pneumoniae Not detected Not detected, [facility] Specimen Nasopharyngeal Narrative Performed At Other viruses and bacteria not targeted by [facility] this PCR panel cannot be excluded; therefore clinical correlation and follow up of serology, culture results, and other molecular studies is required. The results are not intended to be used as the sole means for clinical diagnosis or patient management decisions. This sample was tested at the [facility] Molecular Diagnostics Laboratory using the HuTerraArray Respiratory Panel. It is FDA cleared and [...] required.This laboratory is CLIA-certified and [employer] (CAP)-accredited to perform high complexity testing. Performing Organization Address [facility] Phone Number [address] [address] CENTER HEMODIALYSIS INPATIENT (09/02/2018 3:33 PM CARDIAC CARE UNIT NURSE) Narrative Performed At Holley Ram RN 09/02/20183:34 PM Dialyzed for 4 hrs. UF net 2L. Vss. Alert, oriented X3. Report given to Tod PHILIP. Iron, TIBC, % sat. (without ferritin) (09/02/2018 3:21 AM CARDIAC CARE UNIT NURSE)Only the most recent of2 resultswithin the time period is included. Iron 55.0 40.0 - 160.0 ug/dL [facility] TIBC 148 (L) 250 - 450 ug/dL [facility] Iron % Saturation 37 20 - 55 % [facility] Specimen Blood Performing Organization Address [facility] Phone Number [address] [address] CENTER Ferritin (09/02/2018 3:21 AM CARDIAC CARE UNIT NURSE)Only the most recent of2 resultswithin the time period is included. Ferritin 414 (H) 5 - 275 ng/mL [facility] Specimen Blood Performing Organization Address [facility] Phone Number [address] [address] [phone] CENTER Troponin I (08/31/2018 4:05 AM CARDIAC CARE UNIT NURSE)Only the most recent of4 resultswithin the time period is included. Troponin I 0.07 (H) 0.00 - 0.03 ng/mL [facility] Specimen Blood Narrative Performed At Troponin I (TnI) levels must be interpreted [facility] in the context of the [...] disease, and persistent tachyarrhythmia. Performing Organization Address City/[facility] Phone Number [address] [address] [phone] [place] ECG 12 lead (08/30/2018 5:10 PM CARDIAC CARE UNIT NURSE) Specimen Narrative Performed At Ventricular Rate 90 BPM GE MUSE Atrial Rate 90 BPM P-R Interval 152 ms QRS Duration 96 ms Q-T Interval 398 ms QTC Calculation(Bazett) 486 ms P [place] 16 degrees R [place] 104 degrees T [place] 26 degrees Sinus rhythm with occasional and consecutive Premature ventricular complexes Rightward axis Abnormal ECG No previous ECGs available Confirmed by MD FLAHERTY JORGE ([id number]) on 09/04/2018 12:55:42 PM Procedure Note Interface, External Ris In - 09/04/2018 12:55 PM CARDIAC CARE UNIT NURSE Ventricular Rate 90 BPM Atrial Rate 90 BPM P-R Interval 152 ms QRS Duration 96 ms Q-T Interval 398 ms QTC Calculation(Bazett) 486 ms P [place] 16 degrees R [place] 104 degrees T [place] 26 degrees Sinus rhythm with occasional and consecutive Premature ventricular complexes Rightward axis Abnormal ECG No previous ECGs available Confirmed by MD FLAHERTY JORGE ([id number]) on 09/04/2018 12:55:42 PM Performing Organization Address City/[facility] Phone Number [employer] MUSE POC ACTIVATED CLOTTING TIME (08/30/2018 11:27 AM CARDIAC CARE UNIT NURSE)Only the most recent of3 resultswithin the time period is included. Activated Clotting Time 142Comment: TESTED AT sec [facility] BSC [address] [place] [id number] Specimen Blood Performing Organization Address [facility] Phone Number [address] [address] [place] Potassium-Stat Lab (08/30/2018 11:26 AM CARDIAC CARE UNIT NURSE) Potassium 4.0 3.6 - 5.5 meq/L [facility] Specimen Blood, Arterial Performing Organization Address City/[facility] Phone Number [address] [address] [phone] [place] Sodium Na-Stat Lab (08/30/2018 11:26 AM CARDIAC CARE UNIT NURSE) Sodium 130 (L) 135 - 148 meq/L [facility] Specimen Blood, Arterial Performing Organization Address [facility] Phone Number [address] [address] [place] Glucose-Stat Lab (08/30/2018 11:26 AM CARDIAC CARE UNIT NURSE) Glucose 112 (H) 70 - 110 mg/dL [facility] Specimen Blood, Arterial Performing Organization Address [facility] Phone Number [address] [address] [place] HGB/HCT (H&H)-Stat Lab (08/30/2018 11:26 AM CARDIAC CARE UNIT NURSE) Hemoglobin 9.9 (L) 13.0 - 16.8 g/dL [facility] Hematocrit 29.0 (L) 40.0 - 50.0 % [facility] Specimen Blood, Arterial Performing Organization Address [facility] Phone Number [address] [address] [place] Blood gas, arterial (08/30/2018 11:26 AM CARDIAC CARE UNIT NURSE) pH, Arterial 7.43 7.35 - 7.45 [facility] pCO2, Arterial 41 35 - 45 mmHg [facility] pO2, Arterial 297 (H) 80 - 90 mmHg [facility] O2 Sat, Arterial 99.7 (H) 96.0 - 97.0 % [facility] HCO3, Arterial 27 21 - 29 mmol/L [facility] Base Excess, Arterial 2.0 -2.0 - 3.0 mmol/L [facility] Patient Temperature 35.1 C [facility] FIO2 100.0 % [facility] Specimen Blood, Arterial Performing Organization Address City/[facility] Phone Number [address] [address] [place] Calcium, Ionized (08/30/2018 2:50 AM CARDIAC CARE UNIT NURSE)Only the most recent of2 resultswithin the time period is included. Calcium, Ion 1.07 (L) 1.12 - 1.27 mmol/L [facility] pH, Blood 7.43 [facility] Specimen Blood Performing Organization Address [facility] Phone Number [address] [address] [place] Prothrombin time/INR (08/30/2018 2:50 AM CARDIAC CARE UNIT NURSE) Protime 14.9 (H) 11.7 - 14.7 seconds [facility] INR 1.2 <=5.9 [facility] Specimen Blood Narrative Performed At RECOMMENDED COUMADIN/WARFARIN INR THERAPY [facility] RANGES STANDARD DOSE: 2.0 - 3.0 Includes: PROPHYLAXIS for venous thrombosis, systemic embolization; TREATMENT for venous thrombosis and/or pulmonary embolus. HIGH RISK: Target INR is 2.5-3.5 for patients with mechanical heart valves. Performing Organization Address City/[facility] Phone Number [address] [address] [place] HEMODIALYSIS INPATIENT (08/28/2018 12:40 PM CARDIAC CARE UNIT NURSE) Narrative Performed At Minda Fairbanks RN 08/28/2018 [...] Fairbanks RN HEMODIALYSIS INPATIENT (08/26/2018 12:31 PM CARDIAC CARE UNIT NURSE) Narrative Performed At Skinny Montero RN 08/26/2018 [...] RN Comprehensive metabolic panel (08/26/2018 6:07 AM CARDIAC CARE UNIT NURSE)Only the most recent of2 resultswithin the time period is included. Protein, Total 6.5 6.0 - 8.3 gm/dL [facility] Albumin 2.4 (L) 3.5 - 5.0 g/dL [facility] Alkaline Phosphatase 78 40 - 150 U/L [facility] Total Bilirubin 0.4 0.2 - 1.2 mg/dL [facility] Sodium 129 (L) 136 - 145 meq/L [facility] Potassium 4.9 3.5 - 5.1 meq/L [facility] Chloride 93 (L) 98 - 107 meq/L [facility] CO2 26 22 - 29 meq/L [facility] BUN 50 (H) 7 - 21 mg/dL [facility] Creatinine 6.18 (H) 0.57 - 1.25 mg/dL [facility] Glucose 104 70 - 105 mg/dL [facility] Calcium 8.9 8.4 - 10.2 mg/dL [facility] AST 22 5 - 34 U/L [facility] ALT <6 (L) 6 - 55 U/L [facility] EGFR 9Comment: ESTIMATED GFR mL/min/1.[address] [facility] IS NOT ACCURATE [facility] CREATININE CLEARANCE IN PREDICTING GLOMERULAR FILTRATION RATE. ESTIMATED GFR IS NOT APPLICABLE FOR DIALYSIS PATIENTS. Specimen Blood Performing Organization Address City/State/Zipcode Phone Number [facility] [address] [place] [address] CENTER Vein Mapping Leg RIght (08/24/2018 4:08 PM CARDIAC CARE UNIT NURSE) Ejection Fraction [facility] ECHO [facility] Specimen Impressions Performed At Right Impression [facility]CHO [facility] 1. There is [...] PV LAB - Lower Extremities Vein Mapping [facility] Demographics Patient NameSNADIR QUIÑONES Date of Study 08/24/2018 ANAYA 73 Visit [id number] Male of 1945 Referring [facility] Room Number 1819 Physician Pigment Weigher Jannet Soares RVT Physician Procedure Type of [...] External Ris In - 08/25/2018 5:10 PM CARDIAC CARE UNIT NURSE PV LAB - Lower Extremities Vein Mapping Demographics Patient Name NADIR MENDEZ Date of Study 08/24/2018 ANAYA Age 73 Visit Number [id number] Gender Male Accession Number [id number] Date of 1945 Referring [facility] Room Number 0449 Physician Pigment Weigher Jannet Chang Interpreting Sherry Soares RVT Physician [...] Arterial doppler leg, right (08/24/2018 4:08 PM CARDIAC CARE UNIT NURSE) Ejection [facility] ECHO HEART[facility] Specimen Impressions Performed At Right Impression [facility] HEART[facility] 1. The common femoral and profunda [...] + + + + + + !Prox SERVER CASHIER ! !53.4 !! ! + + + + + + !Mid SERVER CASHIER ! !0! ! ! + + + + + + !Dist SERVER CASHIER ! !0! ! ! + + + [...] PV LAB - Lower Extremity Arterial Duplex [facility] Demographics Patient NameSNADIR QUIÑONES Date of Study 08/24/2018 ANAYA 73 Visit [id number] Male of 1945 Referring [facility] Room Number 1819 Physician Pigment Weigher Jannet Soares RVT Physician Procedure Type of [...] External Ris In - 08/25/2018 5:12 PM CARDIAC CARE UNIT NURSE PV LAB - Lower Extremity Arterial Duplex Demographics Patient Name NADIR MENDEZ Date of Study 08/24/2018 ANAYA Age 73 Visit Number [id number] Gender Male Accession Number [id number] Date of 1945 Referring [facility] Room Number 1819 Physician Pigment Weigher Jannet Chang Interpreting Sherry Soares Neo Physician [...] + + + -------+ + + !Prox SERVER CASHIER ! !53.4 ! ! ! + + + -------+ + + !Mid SERVER CASHIER ! !0 ! ! ! + + + -------+ + + !Dist SERVER CASHIER ! !0 ! ! ! + + [...] + -------+ + + Performing Organization Address City/[facility]/Zipcode Phone Number [facility] Reticulocyte count (08/24/2018 3:55 AM CARDIAC CARE UNIT NURSE) % Retic 2.0 (H) 0.5 - 1.8 % [facility] Specimen Blood Performing Organization Address [facility]/Zipcode Phone Number [address] [phone] CENTER HEMODIALYSIS INPATIENT (08/23/2018 11:33 AM CARDIAC CARE UNIT NURSE) Narrative Performed At Holley Ram RN 08/23/2018 11:37 AM Dialyzed for 4hrs. UF net 2L. Vss. Alert, oriented x3. Report given to Maya PHILIP XR chest 1 view portable / bedside (08/22/2018 6:40 PM CARDIAC CARE UNIT NURSE) Specimen Narrative Performed At FINAL REPORT RIS [...] MD Report Verified Date/Time:08/22/2018 19:51:52 Reading Location: [address] Consult Reading Room Procedure Note Interface, External Ris In - 08/22/2018 7:54 PM CARDIAC CARE UNIT NURSE FINAL REPORT INDICATION: Cough COMPARISON: None. TECHNIQUE: [...] Report Verified Date/Time: 08/22/2018 19:51:52 Reading Location: [facility] C013 Consult Reading Room Performing Organization Address City/State/Zipcode Phone Number RIS Hepatitis B surface antigen (08/22/2018 12:50 PM CARDIAC CARE UNIT NURSE) hepatitis B Surface Ag Nonreactive Nonreactive [facility] Specimen Blood Performing Organization Address City/State/Zipcode Phone Number [address] [address] CENTER PT/aPTT (08/22/2018 3:38 AM CARDIAC CARE UNIT NURSE) Protime 16.0 (H) 11.7 - 14.7 seconds [facility] INR 1.3 <=5.9 [facility] PTT 51.1 (H) 22.5 - 36.0 seconds [facility] Specimen Blood Narrative Performed At RECOMMENDED COUMADIN/WARFARIN INR THERAPY [facility] RANGES STANDARD DOSE: 2.0 - 3.0 Includes: PROPHYLAXIS for venous thrombosis, systemic embolization; TREATMENT for venous thrombosis and/or pulmonary embolus. HIGH RISK: Target INR is 2.5-3.5 for patients with mechanical heart valves. Performing Organization Address City/State/Zipcode Phone Number [facility] [address] [place] [address] CENTER after 03/25/2018 Insurance Payer Benefit Plan / Group Subscriber ID Type Phone Address CARE IMPROVEMENT MEDICARE CARE IMPROVEMENT PLUS xxxxxxxxx [facility] MEDICAID MEDICAID OF [place] xxxxxxxxx Medicaid ([place]) [place] [address] Advance Directives Patient has advance care planning documents, and code status on file. For more information, please contact:[address] [phone] Code Status Date Activated Date Inactivated Comments Full Code 08/30/2018 5:03 PM This code status was determined by: Patient Full Code 08/22/2018 1:56 AM 08/30/2018 5:03 PM This code status was determined by: Patient Full Code 09/15/2017 11:54 PM 09/18/2017 7:40 AM This code status was determined by: Patient
--- OUTSIDE RECORDS SUMMARY | 2019-03-26 19:22 | XMS REPORT ---
[...] Start Date End Date Status Dosage Pravachol [facility] [id number] 40 MG Orally Once Active 1 tablet a day Results No Known Results Summary Purpose eClinicalWorks Submission
--- OUTSIDE RECORDS SUMMARY | 2019-03-26 19:22 | XMS REPORT ---
:1945 Author Organization [facility] Address [address] [place] [address] [address] [place] [address] Care Team Providers Name Role Phone RICHELLE [...] ID: 3 VIEWS, RIGHT 12:54:00 exam:->s/p TMA [id number] Right foot, three images HISTORY: Intubation COMPARISON: 09/06/2018 IMPRESSION:Transmetatarsal amputation of all digits. No appreciable fracture. No dislocation. Bandage material present. Vascular consultation. Signed: Josey Law Verified Date/Time: 11/04/2018 12:54:24 Reading Location: [address] Transitional Reading Room CULTURE + SMEAR 2018-10-23 10:29:00 Test Item Value Reference Range Comments CULTURE (BEAKER) (test gwlr=9150) No acid-fast bacilli isolated in 42 days AFB SMEAR (BEAKER) (test ldtp=576) No acid fast bacilli seen AFB CULTURE + [id number] 10:29:00 Test Item Value Reference Range Comments CULTURE (BEAKER) (test No acid-fast bacilli isolated zdov=3082) in 42 days AFB SMEAR (BEAKER) (test No acid fast bacilli seen sqgy=462) AFB CULTURE + [id number] 10:29:00 Test Item Value Reference Range Comments CULTURE (BEAKER) (test No acid-fast bacilli isolated hcoy=1397) in 42 days AFB SMEAR (BEAKER) (test No acid fast bacilli seen pmpk=548) FUNGUS CULTURE + [id number] 16:39:00 Test Item Value Reference Range Comments CULTURE (BEAKER) (test No fungus isolated in 28 days tofy=8426) FUNGUS SMEAR (BEAKER) (test No fungi seen gaei=7735) FUNGUS CULTURE + [id number] 16:39:00 Test Item Value Reference Range Comments CULTURE (BEAKER) (test No fungus isolated in 28 days civm=1129) FUNGUS SMEAR (BEAKER) (test No fungi seen dozw=5940) FUNGUS CULTURE + [id number] 16:39:00 Test Item Value Reference Range Comments CULTURE (BEAKER) (test No fungus isolated in 28 days pobp=7540) FUNGUS SMEAR (BEAKER) (test No fungi seen cqnm=9361) TISSUE [id number] 20:00:00Surgical Pathology Report Case: [id number] Authorizing Provider: Aba Millan DPM Collected: 09/13/2018 08 Ordering Location: [facility] Received: 09/13/2018 0926 SERVICES Pathologist: Carrol Trammell MD Specimen: Metatarsal, Right BONE, RIGHT FOOT , METATARSAL, DEBRIDEMENT:- GANGRENOUS NECROSIS- OSTEOMYELITIS- NEGATIVE FOR MALIGNANCY Signing Pathologist Direct Phone Line: [phone] signed by Carrol Trammell MD on 2018 at 8:00 [id number] surgical woundRight metatarsal. Specimen is received in formalin-filled container labeled with the patient's information and labeled "right metatarsal" and consists of multiple fragments of ch hemorrhagic bone and soft tissue measuring 2.5 x 2 x 1 cm in aggregate. Specimen is sectioned and submitted entirely A1-A4 for decalcification. CG/bc Performed.POCT-GLUCOSE [id number] 13:34:00 Test Item Value Reference Range Comments POC-GLUCOSE METER (BEAKER) 148 mg/dL 70-110 TESTED AT [facility] [address] [facility] (test vrte=8109) [facility] [address] POCT-GLUCOSE [id number] 08:11:00 Test Item Value Reference Range Comments POC-GLUCOSE METER (BEAKER) 139 mg/dL 70-110 TESTED AT [facility] [address] (test pkdi=0994) [facility] [address] BASIC METABOLIC [id number] 04:47:00 Test Item Value Reference Range Comments SODIUM (BEAKER) (test 136 meq/L 136-145 arim=767) POTASSIUM (BEAKER) (test 4.3 meq/L 3.5-5.1 oukl=269) CHLORIDE (BEAKER) (test 97 meq/L 98-107 xgiq=495) CO2 (BEAKER) (test 27 meq/L 22-29 crrc=412) BLOOD UREA NITROGEN 43 mg/dL 7-21 (BEAKER) (test omxi=965) CREATININE (BEAKER) (test 5.04 mg/dL 0.57-1.25 zpbr=431) GLUCOSE RANDOM (BEAKER) 94 mg/dL 70-105 (test fvom=220) CALCIUM (BEAKER) (test 8.7 mg/dL 8.4-10.2 utco=786) EGFR (BEAKER) (test 11 mL/min/1.73 sq m ESTIMATED GFR IS NOT lrmy=5399) ACCURATE CREATININE CLEARANCE IN PREDICTING GLOMERULAR FILTRATION RATE. ESTIMATED GFR IS NOT APPLICABLE FOR DIALYSIS PATIENTS. [id number] 04:46:00 Test Item Value Reference Range Comments PHOSPHORUS (BEAKER) (test fziz=900) 3.2 mg/dL 2.3-4.7 [id number] 04:46:00 Test Item Value Reference Range Comments MAGNESIUM (BEAKER) (test kpwr=846) 2.1 mg/dL 1.6-2.6 CBC W/PLT COUNT & AUTO [id number] 04:39:00 Test Item Value Reference Range Comments WHITE BLOOD CELL COUNT (BEAKER) (test lfhb=731) 7.8 K/ L 3.5-10.5 RED BLOOD CELL COUNT (BEAKER) (test ijfp=470) 2.72 M/ L 4.63-6.08 HEMOGLOBIN (BEAKER) (test mbsm=876) 8.9 GM/DL 13.7-17.5 HEMATOCRIT (BEAKER) (test lsod=587) 27.9 % 40.1-51.0 MEAN CORPUSCULAR VOLUME (BEAKER) (test qvxp=579) 102.6 fL 79.0-92.2 MEAN CORPUSCULAR HEMOGLOBIN (BEAKER) (test 32.7 pg 25.7-32.2 tkmn=317) MEAN CORPUSCULAR HEMOGLOBIN CONC (BEAKER) (test 31.9 GM/DL 32.3-36.5 uucf=331) RED CELL DISTRIBUTION WIDTH (BEAKER) (test 17.2 % 11.6-14.4 znav=429) PLATELET COUNT (BEAKER) (test gnlq=224) 244 K/CU MM 150-450 MEAN PLATELET VOLUME (BEAKER) (test dfrl=196) 11.2 fL 9.4-12.4 NUCLEATED RED BLOOD CELLS (BEAKER) (test 0 /100 WBC 0-0 ynah=439) NEUTROPHILS RELATIVE PERCENT (BEAKER) (test 62 % pjlf=711) LYMPHOCYTES RELATIVE PERCENT (BEAKER) (test 19 % dykn=637) MONOCYTES RELATIVE PERCENT (BEAKER) (test 10 % xmba=960) EOSINOPHILS RELATIVE PERCENT (BEAKER) (test 7 % ufod=519) BASOPHILS RELATIVE PERCENT (BEAKER) (test 1 % vkaz=839) NEUTROPHILS ABSOLUTE COUNT (BEAKER) (test 4.83 K/ L 1.78-5.38 acwu=947) LYMPHOCYTES ABSOLUTE COUNT (BEAKER) (test 1.49 K/ L 1.32-3.57 kcod=418) MONOCYTES ABSOLUTE COUNT (BEAKER) (test 0.80 K/ L 0.30-0.82 cjcn=497) EOSINOPHILS ABSOLUTE COUNT (BEAKER) (test 0.51 K/ L 0.04-0.54 hvnj=984) BASOPHILS ABSOLUTE COUNT (BEAKER) (test 0.05 K/ L 0.01-0.08 sgnq=820) IMMATURE GRANULOCYTES-RELATIVE PERCENT (BEAKER) 1 % 0-1 (test nmgb=2703) POCT-GLUCOSE [id number] 21:35:00 Test Item Value Reference Range Comments POC-GLUCOSE METER (BEAKER) 181 mg/dL 70-110 TESTED AT [address] (test qcln=4511) [facility] [address] POCT-GLUCOSE [id number] 17:58:00 Test Item Value Reference Range Comments POC-GLUCOSE METER (BEAKER) 166 mg/dL 70-110 TESTED AT [address] (test ypjm=5120) [facility] [address] POCT-GLUCOSE [id number] 12:45:00 Test Item Value Reference Range Comments POC-GLUCOSE METER (BEAKER) 146 mg/dL 70-110 TESTED AT [facility] [address] [place] [address] (test gyhs=0541) [facility] [address] POCT-GLUCOSE [id number] 08:59:00 Test Item Value Reference Range Comments POC-GLUCOSE METER (BEAKER) 158 mg/dL 70-110 TESTED AT [address] (test hhke=2797) [facility] [address] [id number] 05:22:00 Test Item Value Reference Range Comments PHOSPHORUS (BEAKER) (test lydi=299) 2.5 mg/dL 2.3-4.7 [id number] 05:22:00 Test Item Value Reference Range Comments MAGNESIUM (BEAKER) (test phrj=842) 2.0 mg/dL 1.6-2.6 CBC W/PLT COUNT & AUTO [id number] 05:03:00 Test Item Value Reference Range Comments WHITE BLOOD CELL COUNT (BEAKER) (test iosg=505) 8.2 K/ L 3.5-10.5 RED BLOOD CELL COUNT (BEAKER) (test fvjq=862) 2.70 M/ L 4.63-6.08 HEMOGLOBIN (BEAKER) (test uwfj=195) 8.8 GM/DL 13.7-17.5 HEMATOCRIT (BEAKER) (test qvnx=758) 28.2 % 40.1-51.0 MEAN CORPUSCULAR VOLUME (BEAKER) (test fvbo=147) 104.4 fL 79.0-92.2 MEAN CORPUSCULAR HEMOGLOBIN (BEAKER) (test 32.6 pg 25.7-32.2 gdvn=328) MEAN CORPUSCULAR HEMOGLOBIN CONC (BEAKER) (test 31.2 GM/DL 32.3-36.5 cmzo=377) RED CELL DISTRIBUTION WIDTH (BEAKER) (test 17.4 % 11.6-14.4 vafm=401) PLATELET COUNT (BEAKER) (test dxgs=342) 255 K/CU MM 150-450 MEAN PLATELET VOLUME (BEAKER) (test zxwa=260) 11.1 fL 9.4-12.4 NUCLEATED RED BLOOD CELLS (BEAKER) (test 0 /100 WBC 0-0 abac=672) NEUTROPHILS RELATIVE PERCENT (BEAKER) (test 68 % hopj=241) LYMPHOCYTES RELATIVE PERCENT (BEAKER) (test 15 % rcro=988) MONOCYTES RELATIVE PERCENT (BEAKER) (test 10 % ersk=652) EOSINOPHILS RELATIVE PERCENT (BEAKER) (test 6 % okyc=420) BASOPHILS RELATIVE PERCENT (BEAKER) (test 1 % ztmf=207) NEUTROPHILS ABSOLUTE COUNT (BEAKER) (test 5.50 K/ L 1.78-5.38 gflw=312) LYMPHOCYTES ABSOLUTE COUNT (BEAKER) (test 1.25 K/ L 1.32-3.57 kpxu=231) MONOCYTES ABSOLUTE COUNT (BEAKER) (test 0.85 K/ L 0.30-0.82 nfov=985) EOSINOPHILS ABSOLUTE COUNT (BEAKER) (test 0.46 K/ L 0.04-0.54 wwrp=004) BASOPHILS ABSOLUTE COUNT (BEAKER) (test 0.04 K/ L 0.01-0.08 luol=022) IMMATURE GRANULOCYTES-RELATIVE PERCENT (BEAKER) 1 % 0-1 (test vigg=7874) POCT-GLUCOSE [id number] 21:29:00 Test Item Value Reference Range Comments POC-GLUCOSE METER (BEAKER) 175 mg/dL 70-110 TESTED AT [address] (test byoq=2848) [place] [address] POCT-GLUCOSE [id number] 17:57:00 Test Item Value Reference Range Comments POC-GLUCOSE METER (BEAKER) 171 mg/dL 70-110 TESTED AT [address] (test oamw=7754) [place] [address] POCT-GLUCOSE [id number] 13:43:00 Test Item Value Reference Range Comments POC-GLUCOSE METER (BEAKER) 189 mg/dL 70-110 TESTED AT [address] (test ywtz=9568) [place] [address] TISSUE [id number] 13:19:00Surgical Pathology Report Case: [id number] Authorizing Provider: Aba Millan DPM Collected: 09/07/201837 Ordering Location: [address] Received: 09/09/2018 0839 Service Pathologist: Rober Hicks MD Specimen: Foot, Right, right foot amputation FOOT, RIGHT, DISTAL AMPUTATION: GANGRENOUS NECROSIS OF SKIN AND SOFT TISSUE.UNDERLYING ACUTE AND CHRONIC OSTEOMYELITISCALCIFIC ATHEROSCLEROSIS.RESECTION MARGINS VIABLE.SPECIAL STAINS FOR FUNGAL ORGANISMS (GMS, PAS) ARE NEGATIVE. Signing Pathologist Direct Phone Line: [phone] signed by Rober Hicks MD on at 1:19 [id number] x2Open wound of right lower extremity Right [...] Sectioning reveals dark brown necrotic cut surface. Accounts Specialist sections are submitted as follows: A1- skin and soft tissue at resection margin ; A2- bone at resection margin following decalcification; A3- skin at resection margin to include ulcer; A4- ulcer with underlying bone following decalcification; A5- section to include underlying vessels; A7- entry level marketing representative of the detached pieces of tissue. SA/bc Performed.The interpretation of this case included the use of immunohistochemistry or special stains. BLOCK A3- GMS, PASImmunohistochemistry technical testing was performed at [facility], Pathology Laboratory where it was developed and [...] perform high complexity clinical laboratory testing.BASIC METABOLIC [id number] 10:39:00 Test Item Value Reference Range Comments SODIUM (BEAKER) (test 138 meq/L 136-145 aahn=571) POTASSIUM (BEAKER) (test 4.8 meq/L 3.5-5.1 ryvr=774) CHLORIDE (BEAKER) (test 99 meq/L 98-107 cspb=089) CO2 (BEAKER) (test 28 meq/L 22-29 fsmv=016) BLOOD UREA NITROGEN 46 mg/dL 7-21 (BEAKER) (test dqka=023) CREATININE (BEAKER) (test 5.96 mg/dL 0.57-1.25 cmod=669) GLUCOSE RANDOM (BEAKER) 93 mg/dL 70-105 (test nttg=936) CALCIUM (BEAKER) (test 8.5 mg/dL 8.4-10.2 bika=934) EGFR (BEAKER) (test 9 mL/min/1.73 sq m ESTIMATED GFR IS NOT litz=4641) ACCURATE CREATININE CLEARANCE IN PREDICTING GLOMERULAR FILTRATION RATE. ESTIMATED GFR IS NOT APPLICABLE FOR DIALYSIS PATIENTS. POCT-GLUCOSE [id number] 07:45:00 Test Item Value Reference Range Comments POC-GLUCOSE METER (BEAKER) 127 mg/dL 70-110 TESTED AT [facility] [address] [facility] (test tfqq=6488) [facility] [address] [id number] 06:16:00 Test Item Value Reference Range Comments PHOSPHORUS (BEAKER) (test cqpl=874) 4.1 mg/dL 2.3-4.7 [id number] 06:16:00 Test Item Value Reference Range Comments MAGNESIUM (BEAKER) (test yxlh=267) 2.0 mg/dL 1.6-2.6 CBC W/PLT COUNT & AUTO [id number] 05:30:00 Test Item Value Reference Range Comments WHITE BLOOD CELL COUNT (BEAKER) (test tbwz=176) 9.1 K/ L 3.5-10.5 RED BLOOD CELL COUNT (BEAKER) (test wtji=860) 2.70 M/ L 4.63-6.08 HEMOGLOBIN (BEAKER) (test uvck=300) 8.8 GM/DL 13.7-17.5 HEMATOCRIT (BEAKER) (test orup=793) 28.2 % 40.1-51.0 MEAN CORPUSCULAR VOLUME (BEAKER) (test mioc=648) 104.4 fL 79.0-92.2 MEAN CORPUSCULAR HEMOGLOBIN (BEAKER) (test 32.6 pg 25.7-32.2 qtqa=776) MEAN CORPUSCULAR HEMOGLOBIN CONC (BEAKER) (test 31.2 GM/DL 32.3-36.5 ntgp=981) RED CELL DISTRIBUTION WIDTH (BEAKER) (test 17.2 % 11.6-14.4 ctqr=593) PLATELET COUNT (BEAKER) (test rfva=698) 238 K/CU MM 150-450 MEAN PLATELET VOLUME (BEAKER) (test rqha=230) 10.6 fL 9.4-12.4 NUCLEATED RED BLOOD CELLS (BEAKER) (test 0 /100 WBC 0-0 kqkq=824) NEUTROPHILS RELATIVE PERCENT (BEAKER) (test 69 % gebk=397) LYMPHOCYTES RELATIVE PERCENT (BEAKER) (test 15 % ugxp=868) MONOCYTES RELATIVE PERCENT (BEAKER) (test 9 % aqtn=144) EOSINOPHILS RELATIVE PERCENT (BEAKER) (test 7 % jkey=705) BASOPHILS RELATIVE PERCENT (BEAKER) (test 0 % mlwm=728) NEUTROPHILS ABSOLUTE COUNT (BEAKER) (test 6.25 K/ L 1.78-5.38 rlih=355) LYMPHOCYTES ABSOLUTE COUNT (BEAKER) (test 1.36 K/ L 1.32-3.57 pkpw=007) MONOCYTES ABSOLUTE COUNT (BEAKER) (test 0.78 K/ L 0.30-0.82 hemz=868) EOSINOPHILS ABSOLUTE COUNT (BEAKER) (test 0.61 K/ L 0.04-0.54 rgpo=566) BASOPHILS ABSOLUTE COUNT (BEAKER) (test 0.04 K/ L 0.01-0.08 qlef=891) IMMATURE GRANULOCYTES-RELATIVE PERCENT (BEAKER) 1 % 0-1 (test jrtj=7824) POCT-GLUCOSE [id number] 21:26:00 Test Item Value Reference Range Comments POC-GLUCOSE METER (BEAKER) 117 mg/dL 70-110 TESTED AT [facility] [address] [facility] (test wnhr=6927) [facility] [address] POCT-GLUCOSE [id number] 17:29:00 Test Item Value Reference Range Comments POC-GLUCOSE METER (BEAKER) 212 mg/dL 70-110 TESTED AT [address] (test ebnw=6844) [facility] [address] POCT-GLUCOSE [id number] 11:33:00 Test Item Value Reference Range Comments POC-GLUCOSE METER (BEAKER) 185 mg/dL 70-110 TESTED AT [address] (test ozwt=9603) [facility] [address] RAD, FOOT, MIN 3 VIEWS, [id number] 08:28:00Reason for exam:->s/p amputationFINAL REPORT RIGHT FOOT [...] Huffman MDReport Verified Date/Time: 09/15/201808:28:29 Reading Location: [address] Transitional Reading Room POCT- GLUCOSE [id number] 08:02:00 Test Item Value Reference Range Comments POC-GLUCOSE METER (BEAKER) 171 mg/dL 70-110 TESTED AT [address] (test fump=6358) [facility] [address] [id number] 06:39:00 Test Item Value Reference Range Comments PHOSPHORUS (BEAKER) (test hgrt=106) 3.4 mg/dL 2.3-4.7 [id number] 06:39:00 Test Item Value Reference Range Comments MAGNESIUM (BEAKER) (test wgwo=816) 2.1 mg/dL 1.6-2.6 CBC W/PLT COUNT & AUTO [id number] 05:38:00 Test Item Value Reference Range Comments WHITE BLOOD CELL COUNT (BEAKER) (test xhsz=006) 8.4 K/ L 3.5-10.5 RED BLOOD CELL COUNT (BEAKER) (test pvep=587) 2.64 M/ L 4.63-6.08 HEMOGLOBIN (BEAKER) (test vyvr=208) 8.7 GM/DL 13.7-17.5 HEMATOCRIT (BEAKER) (test wqrs=379) 27.7 % 40.1-51.0 MEAN CORPUSCULAR VOLUME (BEAKER) (test dyce=333) 104.9 fL 79.0-92.2 MEAN CORPUSCULAR HEMOGLOBIN (BEAKER) (test 33.0 pg 25.7-32.2 dnbe=299) MEAN CORPUSCULAR HEMOGLOBIN CONC (BEAKER) (test 31.4 GM/DL 32.3-36.5 aafj=270) RED CELL DISTRIBUTION WIDTH (BEAKER) (test 17.3 % 11.6-14.4 jpfl=606) PLATELET COUNT (BEAKER) (test kvgp=154) 238 K/CU MM 150-450 MEAN PLATELET VOLUME (BEAKER) (test lenl=008) 11.4 fL 9.4-12.4 NUCLEATED RED BLOOD CELLS (BEAKER) (test 0 /100 WBC 0-0 xkuj=150) NEUTROPHILS RELATIVE PERCENT (BEAKER) (test 65 % rygq=567) LYMPHOCYTES RELATIVE PERCENT (BEAKER) (test 16 % zpzw=054) MONOCYTES RELATIVE PERCENT (BEAKER) (test 12 % txlo=349) EOSINOPHILS RELATIVE PERCENT (BEAKER) (test 6 % xtkg=994) BASOPHILS RELATIVE PERCENT (BEAKER) (test 1 % lbcn=931) NEUTROPHILS ABSOLUTE COUNT (BEAKER) (test 5.50 K/ L 1.78-5.38 gmta=842) LYMPHOCYTES ABSOLUTE COUNT (BEAKER) (test 1.33 K/ L 1.32-3.57 sumz=011) MONOCYTES ABSOLUTE COUNT (BEAKER) (test 1.01 K/ L 0.30-0.82 bpcg=624) EOSINOPHILS ABSOLUTE COUNT (BEAKER) (test 0.47 K/ L 0.04-0.54 vbvi=192) BASOPHILS ABSOLUTE COUNT (BEAKER) (test 0.05 K/ L 0.01-0.08 dtgb=505) IMMATURE GRANULOCYTES-RELATIVE PERCENT (BEAKER) 1 % 0-1 (test gyxo=5079) POCT-GLUCOSE [id number] 21:37:00 Test Item Value Reference Range Comments POC-GLUCOSE METER (BEAKER) 203 mg/dL 70-110 TESTED AT [address] (test bdfv=6289) [facility] [address] POCT-GLUCOSE [id number] 17:17:00 Test Item Value Reference Range Comments POC-GLUCOSE METER (BEAKER) 135 mg/dL 70-110 TESTED AT [address] (test aiuw=7130) [facility] [address] POCT-GLUCOSE [id number] 13:16:00 Test Item Value Reference Range Comments POC-GLUCOSE METER (BEAKER) 177 mg/dL 70-110 TESTED AT [address] (test bcak=2004) [facility] [address] POCT-GLUCOSE [id number] 07:55:00 Test Item Value Reference Range Comments POC-GLUCOSE METER (BEAKER) 136 mg/dL 70-110 TESTED AT [address] (test obtz=3940) [facility] [address] BASIC METABOLIC [id number] 05:47:00 Test Item Value Reference Range Comments SODIUM (BEAKER) (test 139 meq/L 136-145 sczc=514) POTASSIUM (BEAKER) (test 4.3 meq/L 3.5-5.1 kxwm=030) CHLORIDE (BEAKER) (test 102 meq/L 98-107 mlcf=842) CO2 (BEAKER) (test 30 meq/L 22-29 vfqy=830) BLOOD UREA NITROGEN 21 mg/dL 7-21 (BEAKER) (test kzty=692) CREATININE (BEAKER) (test 3.49 mg/dL 0.57-1.25 qmby=653) GLUCOSE RANDOM (BEAKER) 119 mg/dL 70-105 (test xbxu=205) CALCIUM (BEAKER) (test 8.7 mg/dL 8.4-10.2 tnxz=683) EGFR (BEAKER) (test 17 mL/min/1.73 sq m ESTIMATED GFR IS NOT lplo=8558) ACCURATE CREATININE CLEARANCE IN PREDICTING GLOMERULAR FILTRATION RATE. ESTIMATED GFR IS NOT APPLICABLE FOR DIALYSIS PATIENTS. [id number] 04:09:00 Test Item Value Reference Range Comments PHOSPHORUS (BEAKER) (test dsvi=207) 2.8 mg/dL 2.3-4.7 [id number] 04:09:00 Test Item Value Reference Range Comments MAGNESIUM (BEAKER) (test vzcm=839) 1.9 mg/dL 1.6-2.6 CBC W/PLT COUNT & AUTO [id number] 03:46:00 Test Item Value Reference Range Comments WHITE BLOOD CELL COUNT (BEAKER) (test lpmv=430) 7.6 K/ L 3.5-10.5 RED BLOOD CELL COUNT (BEAKER) (test yzfl=486) 2.78 M/ L 4.63-6.08 HEMOGLOBIN (BEAKER) (test jklo=712) 9.0 GM/DL 13.7-17.5 HEMATOCRIT (BEAKER) (test mfma=840) 29.2 % 40.1-51.0 MEAN CORPUSCULAR VOLUME (BEAKER) (test elcs=629) 105.0 fL 79.0-92.2 MEAN CORPUSCULAR HEMOGLOBIN (BEAKER) (test 32.4 pg 25.7-32.2 ohdv=953) MEAN CORPUSCULAR HEMOGLOBIN CONC (BEAKER) (test 30.8 GM/DL 32.3-36.5 qfhv=235) RED CELL DISTRIBUTION WIDTH (BEAKER) (test 17.1 % 11.6-14.4 smbp=364) PLATELET COUNT (BEAKER) (test ygpk=359) 209 K/CU MM 150-450 MEAN PLATELET VOLUME (BEAKER) (test thhv=623) 11.1 fL 9.4-12.4 NUCLEATED RED BLOOD CELLS (BEAKER) (test 0 /100 WBC 0-0 vnlv=982) NEUTROPHILS RELATIVE PERCENT (BEAKER) (test 66 % qztp=963) LYMPHOCYTES RELATIVE PERCENT (BEAKER) (test 15 % onim=857) MONOCYTES RELATIVE PERCENT (BEAKER) (test 13 % nmrj=214) EOSINOPHILS RELATIVE PERCENT (BEAKER) (test 5 % zedu=502) BASOPHILS RELATIVE PERCENT (BEAKER) (test 1 % rwsc=847) NEUTROPHILS ABSOLUTE COUNT (BEAKER) (test 4.95 K/ L 1.78-5.38 tpph=868) LYMPHOCYTES ABSOLUTE COUNT (BEAKER) (test 1.13 K/ L 1.32-3.57 pale=949) MONOCYTES ABSOLUTE COUNT (BEAKER) (test 0.99 K/ L 0.30-0.82 kbkv=898) EOSINOPHILS ABSOLUTE COUNT (BEAKER) (test 0.38 K/ L 0.04-0.54 serh=192) BASOPHILS ABSOLUTE COUNT (BEAKER) (test 0.07 K/ L 0.01-0.08 typh=394) IMMATURE GRANULOCYTES-RELATIVE PERCENT (BEAKER) 1 % 0-1 (test lmqc=7099) POCT-GLUCOSE [id number] 22:47:00 Test Item Value Reference Range Comments POC-GLUCOSE METER (BEAKER) 165 mg/dL 70-110 TESTED AT [address] (test ehob=9213) [place] [address] POCT-GLUCOSE [id number] 19:32:00 Test Item Value Reference Range Comments POC-GLUCOSE METER (BEAKER) 159 mg/dL 70-110 TESTED AT [address] (test jhjd=3548) [place] [address] POCT-GLUCOSE [id number] 17:32:00 Test Item Value Reference Range Comments POC-GLUCOSE METER (BEAKER) 119 mg/dL 70-110 TESTED AT [address] (test qkcd=4485) [place] [address] ANAEROBIC [id number] 16:45:00 Test Item Value Reference Range Comments CULTURE (BEAKER) (test <1+ Same organism has been isolated kbdn=9214) from culture(s) of the same body site and collection date. Repeat identification performed only after consultation with the clinical microbiology laboratory.Refer to previous culture ofBacteroides species, not fragilis ANAEROBIC [id number] 16:42:00 Test Item Value Reference Range Comments CULTURE (BEAKER) (test 4+ Bacteroides species, not opts=1917) fragilis ANAEROBIC [id number] 16:37:00 Test Item Value Reference Range Comments CULTURE (BEAKER) (test 1+ Same organism has been isolated tmec=3494) from culture(s) of the same body site and collection date. Repeat identification performed only after consultation with the clinical microbiology laboratory.Refer to previous culture ofBacteroides species, not fragilis POCT-GLUCOSE [id number] 09:46:00 Test Item Value Reference Range Comments POC-GLUCOSE METER (BEAKER) 114 mg/dL 70-110 TESTED AT [address] (test hstz=8804) [place] [address] POCT-GLUCOSE [id number] 09:03:00 Test Item Value Reference Range Comments POC-GLUCOSE METER (BEAKER) 117 mg/dL 70-110 TESTED AT [facility] [address] [facility] (test hskq=5211) [facility] [address] BASIC METABOLIC [id number] 06:08:00 Test Item Value Reference Range Comments SODIUM (BEAKER) (test 137 meq/L 136-145 rbri=015) POTASSIUM (BEAKER) (test 4.3 meq/L 3.5-5.1 xwnx=010) CHLORIDE (BEAKER) (test 99 meq/L 98-107 jkzq=099) CO2 (BEAKER) (test 28 meq/L 22-29 hjmw=797) BLOOD UREA NITROGEN 36 mg/dL 7-21 (BEAKER) (test vwzg=949) CREATININE (BEAKER) (test 5.01 mg/dL 0.57-1.25 rduz=470) GLUCOSE RANDOM (BEAKER) 78 mg/dL 70-105 (test qllz=634) CALCIUM (BEAKER) (test 8.9 mg/dL 8.4-10.2 nymy=814) EGFR (BEAKER) (test 11 mL/min/1.73 sq m ESTIMATED GFR IS NOT wbrs=8393) ACCURATE CREATININE CLEARANCE IN PREDICTING GLOMERULAR FILTRATION RATE. ESTIMATED GFR IS NOT APPLICABLE FOR DIALYSIS PATIENTS. [id number] 06:04:00 Test Item Value Reference Range Comments PHOSPHORUS (BEAKER) (test xqwy=821) 3.9 mg/dL 2.3-4.7 [id number] 06:04:00 Test Item Value Reference Range Comments MAGNESIUM (BEAKER) (test qahm=472) 2.0 mg/dL 1.6-2.6 CBC W/PLT COUNT & AUTO [id number] 05:20:00 Test Item Value Reference Range Comments WHITE BLOOD CELL COUNT (BEAKER) (test eetl=924) 8.3 K/ L 3.5-10.5 RED BLOOD CELL COUNT (BEAKER) (test zilu=363) 3.03 M/ L 4.63-6.08 HEMOGLOBIN (BEAKER) (test yvoj=379) 9.7 GM/DL 13.7-17.5 HEMATOCRIT (BEAKER) (test pxcc=958) 30.9 % 40.1-51.0 MEAN CORPUSCULAR VOLUME (BEAKER) (test afyq=147) 102.0 fL 79.0-92.2 MEAN CORPUSCULAR HEMOGLOBIN (BEAKER) (test 32.0 pg 25.7-32.2 vtaj=665) MEAN CORPUSCULAR HEMOGLOBIN CONC (BEAKER) (test 31.4 GM/DL 32.3-36.5 wdcg=717) RED CELL DISTRIBUTION WIDTH (BEAKER) (test 16.7 % 11.6-14.4 dqxx=514) PLATELET COUNT (BEAKER) (test gabl=305) 238 K/CU MM 150-450 MEAN PLATELET VOLUME (BEAKER) (test oqcc=337) 11.3 fL 9.4-12.4 NUCLEATED RED BLOOD CELLS (BEAKER) (test 0 /100 WBC 0-0 jksg=396) NEUTROPHILS RELATIVE PERCENT (BEAKER) (test 66 % vrqy=008) LYMPHOCYTES RELATIVE PERCENT (BEAKER) (test 15 % xlge=853) MONOCYTES RELATIVE PERCENT (BEAKER) (test 11 % jakf=156) EOSINOPHILS RELATIVE PERCENT (BEAKER) (test 7 % tohr=486) BASOPHILS RELATIVE PERCENT (BEAKER) (test 1 % elwj=108) NEUTROPHILS ABSOLUTE COUNT (BEAKER) (test 5.46 K/ L 1.78-5.38 lqli=224) LYMPHOCYTES ABSOLUTE COUNT (BEAKER) (test 1.21 K/ L 1.32-3.57 ihod=970) MONOCYTES ABSOLUTE COUNT (BEAKER) (test 0.90 K/ L 0.30-0.82 zqkm=554) EOSINOPHILS ABSOLUTE COUNT (BEAKER) (test 0.59 K/ L 0.04-0.54 tytb=038) BASOPHILS ABSOLUTE COUNT (BEAKER) (test 0.08 K/ L 0.01-0.08 sxdk=842) IMMATURE GRANULOCYTES-RELATIVE PERCENT (BEAKER) 0 % 0-1 (test avoo=3190) POCT-GLUCOSE [id number] 21:31:00 Test Item Value Reference Range Comments POC-GLUCOSE METER (BEAKER) 102 mg/dL 70-110 TESTED AT [address] (test sqol=8515) [facility] [address] POCT-GLUCOSE [id number] 18:22:00 Test Item Value Reference Range Comments POC-GLUCOSE METER (BEAKER) 119 mg/dL 70-110 TESTED AT [address] (test wnwo=6301) [facility] [address] POCT-GLUCOSE [id number] 13:19:00 Test Item Value Reference Range Comments POC-GLUCOSE METER (BEAKER) 169 mg/dL 70-110 TESTED [address] [address] (test bglg=2606) [facility] [address] POCT-GLUCOSE [id number] 13:19:00 Test Item Value Reference Range Comments POC-GLUCOSE METER (BEAKER) 149 mg/dL 70-110 TESTED AT [address] (test zskv=6332) [facility] [address] [id number] 05:26:00 Test Item Value Reference Range Comments PHOSPHORUS (BEAKER) (test bakl=979) 2.8 mg/dL 2.3-4.7 [id number] 05:26:00 Test Item Value Reference Range Comments MAGNESIUM (BEAKER) (test jzju=403) 2.0 mg/dL 1.6-2.6 CBC W/PLT COUNT & AUTO [id number] 05:06:00 Test Item Value Reference Range Comments WHITE BLOOD CELL COUNT (BEAKER) (test vrzc=126) 8.8 K/ L 3.5-10.5 RED BLOOD CELL COUNT (BEAKER) (test akfr=558) 2.80 M/ L 4.63-6.08 HEMOGLOBIN (BEAKER) (test eefa=414) 9.2 GM/DL 13.7-17.5 HEMATOCRIT (BEAKER) (test xwem=863) 28.9 % 40.1-51.0 MEAN CORPUSCULAR VOLUME (BEAKER) (test gjxw=218) 103.2 fL 79.0-92.2 MEAN CORPUSCULAR HEMOGLOBIN (BEAKER) (test 32.9 pg 25.7-32.2 kgrp=832) MEAN CORPUSCULAR HEMOGLOBIN CONC (BEAKER) (test 31.8 GM/DL 32.3-36.5 cnad=546) RED CELL DISTRIBUTION WIDTH (BEAKER) (test 16.9 % 11.6-14.4 ciwq=994) PLATELET COUNT (BEAKER) (test wdao=310) 202 K/CU MM 150-450 MEAN PLATELET VOLUME (BEAKER) (test tudv=548) 11.4 fL 9.4-12.4 NUCLEATED RED BLOOD CELLS (BEAKER) (test 0 /100 WBC 0-0 kxho=145) NEUTROPHILS RELATIVE PERCENT (BEAKER) (test 67 % nyos=603) LYMPHOCYTES RELATIVE PERCENT (BEAKER) (test 14 % eppi=318) MONOCYTES RELATIVE PERCENT (BEAKER) (test 13 % zzzh=563) EOSINOPHILS RELATIVE PERCENT (BEAKER) (test 4 % bhkb=431) BASOPHILS RELATIVE PERCENT (BEAKER) (test 1 % khfu=321) NEUTROPHILS ABSOLUTE COUNT (BEAKER) (test 5.89 K/ L 1.78-5.38 csej=335) LYMPHOCYTES ABSOLUTE COUNT (BEAKER) (test 1.25 K/ L 1.32-3.57 cvgr=123) MONOCYTES ABSOLUTE COUNT (BEAKER) (test 1.13 K/ L 0.30-0.82 ynkl=021) EOSINOPHILS ABSOLUTE COUNT (BEAKER) (test 0.39 K/ L 0.04-0.54 rmlm=180) BASOPHILS ABSOLUTE COUNT (BEAKER) (test 0.09 K/ L 0.01-0.08 ouav=675) IMMATURE GRANULOCYTES-RELATIVE PERCENT (BEAKER) 1 % 0-1 (test qcxk=0905) POCT-GLUCOSE [id number] 21:42:00 Test Item Value Reference Range Comments POC-GLUCOSE METER (BEAKER) 189 mg/dL 70-110 TESTED AT [address] (test gseg=5641) [place] [address] POCT-GLUCOSE [id number] 17:52:00 Test Item Value Reference Range Comments POC-GLUCOSE METER (BEAKER) 140 mg/dL 70-110 TESTED AT [address] (test pxha=9349) [place] [address] POCT-GLUCOSE [id number] 14:50:00 Test Item Value Reference Range Comments POC-GLUCOSE METER (BEAKER) 108 mg/dL 70-110 TESTED AT [address] (test xmgn=4600) [place] [address] POCT-GLUCOSE [id number] 13:07:00 Test Item Value Reference Range Comments POC-GLUCOSE METER (BEAKER) 139 mg/dL 70-110 TESTED AT [address] (test whil=0493) [place] [address] VITAMIN B12 AND [id number] 12:59:00 Test Item Value Reference Range Comments VITAMIN B12 (BEAKER) (test glsh=127) 1098 pg/mL 213-816 FOLATE (BEAKER) (test dwkt=841) 12.9 ng/mL >=7.0 SURGICALLY OBTAINED CULTURE + GRAM [id number] 09:25:00 Test Item Value Reference Range Comments CULTURE (BEAKER) (test KLEBSIELLA OXYTOCA 4+ Klebsiella paux=3943) oxytocaESBL Positive Amikacin (test code=1) Ampicillin + Sulbactam (test code=6) Aztreonam (test code=32) Cefepime (test code=51) Cefoxitin (test code=68) Ceftazidime (test code=27) Ceftriaxone (test code=52) Ertapenem (test code=38) Gentamicin (test code=18) Levofloxacin (test code=22) Meropenem (test code=34) Nitrofurantoin (test code=23) Piperacillin + Tazobactam (test code=29) Tetracycline (test code=2) Tobramycin (test code=25) Trimethoprim + Sulfamethoxazole (test code=47) CULTURE (BEAKER) (test <1+ Same organism has puuy=6277) been isolated from cultures(s) of the same body site and collection date. Repeat identification and susceptibility testing performed only after consultation with the clinical microbiology laboratory.Refer to previous culture ofAchromobacter species GRAM STAIN RESULT (BEAKER) <1+ WBCs (test zrvh=9477) GRAM STAIN RESULT (BEAKER) No organisms seen (test nwkh=830973) SURGICALLY OBTAINED CULTURE + GRAM [id number] 09:24:00 Test Item Value Reference Range Comments CULTURE (BEAKER) (test <1+ Achromobacter species sgjk=0526) GRAM STAIN RESULT <1+ WBCs (BEAKER) (test tkad=7667) GRAM STAIN RESULT No organisms seen (BEAKER) (test feuu=728196) POCT-GLUCOSE [id number] 08:02:00 Test Item Value Reference Range Comments POC-GLUCOSE METER (BEAKER) 97 mg/dL 70-110 TESTED AT [facility] [address] [facility] (test jxvy=7888) [facility] [address] [id number] 07:07:00 Test Item Value Reference Range Comments PHOSPHORUS (BEAKER) (test griw=682) 3.1 mg/dL 2.3-4.7 [id number] 07:07:00 Test Item Value Reference Range Comments MAGNESIUM (BEAKER) (test qaeq=139) 1.8 mg/dL 1.6-2.6 CBC W/PLT COUNT & AUTO [id number] 05:56:00 Test Item Value Reference Range Comments WHITE BLOOD CELL COUNT (BEAKER) (test zdcv=519) 10.3 K/ L 3.5-10.5 RED BLOOD CELL COUNT (BEAKER) (test xfoy=313) 2.78 M/ L 4.63-6.08 HEMOGLOBIN (BEAKER) (test fham=830) 9.1 GM/DL 13.7-17.5 HEMATOCRIT (BEAKER) (test qgkq=874) 28.7 % 40.1-51.0 MEAN CORPUSCULAR VOLUME (BEAKER) (test rtsu=960) 103.2 fL 79.0-92.2 MEAN CORPUSCULAR HEMOGLOBIN (BEAKER) (test 32.7 pg 25.7-32.2 unlo=011) MEAN CORPUSCULAR HEMOGLOBIN CONC (BEAKER) (test 31.7 GM/DL 32.3-36.5 epft=843) RED CELL DISTRIBUTION WIDTH (BEAKER) (test 17.1 % 11.6-14.4 ixbz=050) PLATELET COUNT (BEAKER) (test xvza=887) 206 K/CU MM 150-450 MEAN PLATELET VOLUME (BEAKER) (test jxhp=720) 11.9 fL 9.4-12.4 NUCLEATED RED BLOOD CELLS (BEAKER) (test 0 /100 WBC 0-0 xxpg=989) NEUTROPHILS RELATIVE PERCENT (BEAKER) (test 68 % cipj=301) LYMPHOCYTES RELATIVE PERCENT (BEAKER) (test 14 % lryb=525) MONOCYTES RELATIVE PERCENT (BEAKER) (test 12 % kfwg=753) EOSINOPHILS RELATIVE PERCENT (BEAKER) (test 5 % pnop=770) BASOPHILS RELATIVE PERCENT (BEAKER) (test 1 % yzzr=053) NEUTROPHILS ABSOLUTE COUNT (BEAKER) (test 7.00 K/ L 1.78-5.38 jmhn=840) LYMPHOCYTES ABSOLUTE COUNT (BEAKER) (test 1.40 K/ L 1.32-3.57 toai=724) MONOCYTES ABSOLUTE COUNT (BEAKER) (test 1.19 K/ L 0.30-0.82 lzuk=378) EOSINOPHILS ABSOLUTE COUNT (BEAKER) (test 0.54 K/ L 0.04-0.54 ghgp=170) BASOPHILS ABSOLUTE COUNT (BEAKER) (test 0.08 K/ L 0.01-0.08 lzlm=781) IMMATURE GRANULOCYTES-RELATIVE PERCENT (BEAKER) 0 % 0-1 (test shnk=3259) POCT-GLUCOSE [id number] 23:12:00 Test Item Value Reference Range Comments POC-GLUCOSE METER (BEAKER) 133 mg/dL 70-110 TESTED AT [address] (test ynhl=7977) [place] [address] BLOOD [id number] 19:00:00 Test Item Value Reference Range Comments CULTURE (BEAKER) (test jzsz=3899) No growth in 5 days POCT-GLUCOSE [id number] 17:33:00 Test Item Value Reference Range Comments POC-GLUCOSE METER (BEAKER) 186 mg/dL 70-110 TESTED AT [address] (test mtqi=4905) [place] [address] POCT-GLUCOSE [id number] 13:57:00 Test Item Value Reference Range Comments POC-GLUCOSE METER (BEAKER) 195 mg/dL 70-110 TESTED AT [address] (test uvgj=5572) [place] [address] BLOOD [id number] 11:00:00 Test Item Value Reference Range Comments CULTURE (BEAKER) (test nsbi=2731) No growth in 5 days SURGICALLY OBTAINED CULTURE + GRAM [id number] 10:37:00 Test Item Value Reference Range Comments CULTURE (BEAKER) (test kyfn=3679) No growth GRAM STAIN RESULT (BEAKER) (test <1+ WBCs uojb=9625) GRAM STAIN RESULT (BEAKER) (test No organisms seen nysa=35217) POCT-GLUCOSE [id number] 09:49:00 Test Item Value Reference Range Comments POC-GLUCOSE METER (BEAKER) 107 mg/dL 70-110 TESTED AT [address] (test xivo=0703) [place] [address] [id number] 06:19:00 Test Item Value Reference Range Comments PHOSPHORUS (BEAKER) (test cjxk=201) 2.7 mg/dL 2.3-4.7 [id number] 06:19:00 Test Item Value Reference Range Comments MAGNESIUM (BEAKER) (test upau=101) 1.7 mg/dL 1.6-2.6 CBC W/PLT COUNT & AUTO [id number] 05:24:00 Test Item Value Reference Range Comments WHITE BLOOD CELL COUNT (BEAKER) (test atsa=934) 9.3 K/ L 3.5-10.5 RED BLOOD CELL COUNT (BEAKER) (test nnfg=331) 2.73 M/ L 4.63-6.08 HEMOGLOBIN (BEAKER) (test kgcx=427) 8.9 GM/DL 13.7-17.5 HEMATOCRIT (BEAKER) (test xxtk=198) 28.0 % 40.1-51.0 MEAN CORPUSCULAR VOLUME (BEAKER) (test xdyy=925) 102.6 fL 79.0-92.2 MEAN CORPUSCULAR HEMOGLOBIN (BEAKER) (test 32.6 pg 25.7-32.2 cobq=672) MEAN CORPUSCULAR HEMOGLOBIN CONC (BEAKER) (test 31.8 GM/DL 32.3-36.5 dqxj=174) RED CELL DISTRIBUTION WIDTH (BEAKER) (test 17.4 % 11.6-14.4 malj=713) PLATELET COUNT (BEAKER) (test vcao=230) 198 K/CU MM 150-450 MEAN PLATELET VOLUME (BEAKER) (test murp=646) 11.7 fL 9.4-12.4 NUCLEATED RED BLOOD CELLS (BEAKER) (test 0 /100 WBC 0-0 mdlw=262) NEUTROPHILS RELATIVE PERCENT (BEAKER) (test 72 % rywn=816) LYMPHOCYTES RELATIVE PERCENT (BEAKER) (test 11 % qhij=777) MONOCYTES RELATIVE PERCENT (BEAKER) (test 12 % lnny=580) EOSINOPHILS RELATIVE PERCENT (BEAKER) (test 3 % xtnu=299) BASOPHILS RELATIVE PERCENT (BEAKER) (test 1 % ignd=167) NEUTROPHILS ABSOLUTE COUNT (BEAKER) (test 6.71 K/ L 1.78-5.38 ffrt=470) LYMPHOCYTES ABSOLUTE COUNT (BEAKER) (test 1.00 K/ L 1.32-3.57 illt=885) MONOCYTES ABSOLUTE COUNT (BEAKER) (test 1.15 K/ L 0.30-0.82 tjec=368) EOSINOPHILS ABSOLUTE COUNT (BEAKER) (test 0.32 K/ L 0.04-0.54 avgr=805) BASOPHILS ABSOLUTE COUNT (BEAKER) (test 0.06 K/ L 0.01-0.08 kpad=369) IMMATURE GRANULOCYTES-RELATIVE PERCENT (BEAKER) 0 % 0-1 (test dgfu=3387) POCT-GLUCOSE [id number] 22:37:00 Test Item Value Reference Range Comments POC-GLUCOSE METER (BEAKER) 110 mg/dL 70-110 TESTED AT [address] (test fwgy=4913) [place] [id number] POCT-GLUCOSE [id number] 21:15:00 Test Item Value Reference Range Comments POC-GLUCOSE METER (BEAKER) 142 mg/dL 70-110 TESTED AT [address] (test nirw=6910) [place] [id number] POCT-GLUCOSE [id number] 13:13:00 Test Item Value Reference Range Comments POC-GLUCOSE METER (BEAKER) 136 mg/dL 70-110 TESTED AT [address] (test arto=1327) [facility] [address] POCT-GLUCOSE [id number] 09:36:00 Test Item Value Reference Range Comments POC-GLUCOSE METER (BEAKER) 111 mg/dL 70-110 TESTED AT [address] (test cqab=6317) [facility] [address] BASIC METABOLIC [id number] 06:08:00 Test Item Value Reference Range Comments SODIUM (BEAKER) (test 136 meq/L 136-145 voml=343) POTASSIUM (BEAKER) (test 4.5 meq/L 3.5-5.1 odzn=286) CHLORIDE (BEAKER) (test 97 meq/L 98-107 jcnx=261) CO2 (BEAKER) (test 26 meq/L 22-29 wcmo=564) BLOOD UREA NITROGEN 44 mg/dL 7-21 (BEAKER) (test atyp=106) CREATININE (BEAKER) (test 5.76 mg/dL 0.57-1.25 mhnq=691) GLUCOSE RANDOM (BEAKER) 78 mg/dL 70-105 (test umqv=884) CALCIUM (BEAKER) (test 8.2 mg/dL 8.4-10.2 eiix=678) EGFR (BEAKER) (test 10 mL/min/1.73 sq m ESTIMATED GFR IS NOT pjvi=7333) ACCURATE CREATININE CLEARANCE IN PREDICTING GLOMERULAR FILTRATION RATE. ESTIMATED GFR IS NOT APPLICABLE FOR DIALYSIS PATIENTS. [id number] 06:02:00 Test Item Value Reference Range Comments PHOSPHORUS (BEAKER) (test ihbh=912) 3.3 mg/dL 2.3-4.7 [id number] 06:02:00 Test Item Value Reference Range Comments MAGNESIUM (BEAKER) (test vpzs=475) 1.9 mg/dL 1.6-2.6 CBC W/PLT COUNT & AUTO [id number] 05:39:00 Test Item Value Reference Range Comments WHITE BLOOD CELL COUNT (BEAKER) (test kkmk=272) 8.8 K/ L 3.5-10.5 RED BLOOD CELL COUNT (BEAKER) (test wiqe=302) 2.71 M/ L 4.63-6.08 HEMOGLOBIN (BEAKER) (test anyc=191) 8.9 GM/DL 13.7-17.5 HEMATOCRIT (BEAKER) (test ifmy=683) 27.9 % 40.1-51.0 MEAN CORPUSCULAR VOLUME (BEAKER) (test pkgs=269) 103.0 fL 79.0-92.2 MEAN CORPUSCULAR HEMOGLOBIN (BEAKER) (test 32.8 pg 25.7-32.2 kmat=692) MEAN CORPUSCULAR HEMOGLOBIN CONC (BEAKER) (test 31.9 GM/DL 32.3-36.5 ctdq=177) RED CELL DISTRIBUTION WIDTH (BEAKER) (test 17.3 % 11.6-14.4 abun=049) PLATELET COUNT (BEAKER) (test ldyl=796) 177 K/CU MM 150-450 MEAN PLATELET VOLUME (BEAKER) (test xzno=615) 11.6 fL 9.4-12.4 NUCLEATED RED BLOOD CELLS (BEAKER) (test 0 /100 WBC 0-0 jlzt=951) NEUTROPHILS RELATIVE PERCENT (BEAKER) (test 68 % fhpx=993) LYMPHOCYTES RELATIVE PERCENT (BEAKER) (test 15 % svgc=655) MONOCYTES RELATIVE PERCENT (BEAKER) (test 11 % zshv=404) EOSINOPHILS RELATIVE PERCENT (BEAKER) (test 5 % baom=825) BASOPHILS RELATIVE PERCENT (BEAKER) (test 0 % beep=548) NEUTROPHILS ABSOLUTE COUNT (BEAKER) (test 5.98 K/ L 1.78-5.38 eany=937) LYMPHOCYTES ABSOLUTE COUNT (BEAKER) (test 1.35 K/ L 1.32-3.57 enum=227) MONOCYTES ABSOLUTE COUNT (BEAKER) (test 0.97 K/ L 0.30-0.82 iqzg=928) EOSINOPHILS ABSOLUTE COUNT (BEAKER) (test 0.45 K/ L 0.04-0.54 arfj=716) BASOPHILS ABSOLUTE COUNT (BEAKER) (test 0.03 K/ L 0.01-0.08 evba=525) IMMATURE GRANULOCYTES-RELATIVE PERCENT (BEAKER) 0 % 0-1 (test zbdo=5528) POCT-GLUCOSE [id number] 00:11:00 Test Item Value Reference Range Comments POC-GLUCOSE METER (BEAKER) 146 mg/dL 70-110 TESTED AT [address] (test yswi=3609) [place] [address] POCT-GLUCOSE [id number] 17:14:00 Test Item Value Reference Range Comments POC-GLUCOSE METER (BEAKER) 160 mg/dL 70-110 TESTED AT [address] (test yqdn=4085) [place] [address] POCT-GLUCOSE [id number] 13:54:00 Test Item Value Reference Range Comments POC-GLUCOSE METER (BEAKER) 242 mg/dL 70-110 TESTED AT [address] (test rwck=3932) [place] [address] POCT-GLUCOSE [id number] 13:10:00 Test Item Value Reference Range Comments POC-GLUCOSE METER (BEAKER) 163 mg/dL 70-110 TESTED AT [address] (test uohl=5859) [place] [id number] POCT-GLUCOSE [id number] 08:35:00 Test Item Value Reference Range Comments POC-GLUCOSE METER (BEAKER) 176 mg/dL 70-110 TESTED AT [address] (test lvrv=1738) [place] [address] [id number] 04:40:00 Test Item Value Reference Range Comments PHOSPHORUS (BEAKER) (test auje=666) 2.7 mg/dL 2.3-4.7 [id number] 04:40:00 Test Item Value Reference Range Comments MAGNESIUM (BEAKER) (test zkfm=231) 1.8 mg/dL 1.6-2.6 CBC W/PLT COUNT & AUTO [id number] 04:00:00 Test Item Value Reference Range Comments WHITE BLOOD CELL COUNT (BEAKER) (test erpv=013) 8.5 K/ L 3.5-10.5 RED BLOOD CELL COUNT (BEAKER) (test aqcq=352) 2.77 M/ L 4.63-6.08 HEMOGLOBIN (BEAKER) (test nexv=309) 9.0 GM/DL 13.7-17.5 HEMATOCRIT (BEAKER) (test zemw=424) 28.5 % 40.1-51.0 MEAN CORPUSCULAR VOLUME (BEAKER) (test ygil=087) 102.9 fL 79.0-92.2 MEAN CORPUSCULAR HEMOGLOBIN (BEAKER) (test 32.5 pg 25.7-32.2 mqmt=635) MEAN CORPUSCULAR HEMOGLOBIN CONC (BEAKER) (test 31.6 GM/DL 32.3-36.5 hcoz=553) RED CELL DISTRIBUTION WIDTH (BEAKER) (test 17.7 % 11.6-14.4 vtnt=545) PLATELET COUNT (BEAKER) (test eotf=948) 189 K/CU MM 150-450 MEAN PLATELET VOLUME (BEAKER) (test sosj=238) 11.5 fL 9.4-12.4 NUCLEATED RED BLOOD CELLS (BEAKER) (test 0 /100 WBC 0-0 toqa=992) NEUTROPHILS RELATIVE PERCENT (BEAKER) (test 72 % zzjx=106) LYMPHOCYTES RELATIVE PERCENT (BEAKER) (test 10 % pklc=228) MONOCYTES RELATIVE PERCENT (BEAKER) (test 12 % qunq=352) EOSINOPHILS RELATIVE PERCENT (BEAKER) (test 5 % pcmv=599) BASOPHILS RELATIVE PERCENT (BEAKER) (test 1 % rfsv=571) NEUTROPHILS ABSOLUTE COUNT (BEAKER) (test 6.13 K/ L 1.78-5.38 bvyl=159) LYMPHOCYTES ABSOLUTE COUNT (BEAKER) (test 0.88 K/ L 1.32-3.57 cclv=394) MONOCYTES ABSOLUTE COUNT (BEAKER) (test 0.98 K/ L 0.30-0.82 zuip=832) EOSINOPHILS ABSOLUTE COUNT (BEAKER) (test 0.39 K/ L 0.04-0.54 krew=884) BASOPHILS ABSOLUTE COUNT (BEAKER) (test 0.04 K/ L 0.01-0.08 dlwi=245) IMMATURE GRANULOCYTES-RELATIVE PERCENT (BEAKER) 1 % 0-1 (test rgxs=0232) POCT-GLUCOSE [id number] 00:16:00 Test Item Value Reference Range Comments POC-GLUCOSE METER (BEAKER) 223 mg/dL 70-110 TESTED AT [address] (test vxtz=5607) [place] [address] POCT-GLUCOSE [id number] 16:51:00 Test Item Value Reference Range Comments POC-GLUCOSE METER (BEAKER) 133 mg/dL 70-110 TESTED AT [address] (test irhq=7113) [place] [address] POCT-GLUCOSE [id number] 12:50:00 Test Item Value Reference Range Comments POC-GLUCOSE METER (BEAKER) 178 mg/dL 70-110 TESTED AT [address] (test tzgn=0215) [place] [id number] POCT-GLUCOSE [id number] 11:53:00 Test Item Value Reference Range Comments POC-GLUCOSE METER (BEAKER) 177 mg/dL 70-110 TESTED AT [address] (test caki=3987) [place] [address] POCT-GLUCOSE [id number] 09:58:00 Test Item Value Reference Range Comments POC-GLUCOSE METER (BEAKER) 173 mg/dL 70-110 TESTED AT [address] (test vpnf=2428) [place] [address] CBC W/PLT COUNT & AUTO [id number] 06:10:00 Test Item Value Reference Range Comments WHITE BLOOD CELL COUNT (BEAKER) (test kawb=376) 7.8 K/ L 3.5-10.5 RED BLOOD CELL COUNT (BEAKER) (test gind=802) 3.08 M/ L 4.63-6.08 HEMOGLOBIN (BEAKER) (test qsks=551) 10.0 GM/DL 13.7-17.5 HEMATOCRIT (BEAKER) (test byet=873) 31.2 % 40.1-51.0 MEAN CORPUSCULAR VOLUME (BEAKER) (test bfic=878) 101.3 fL 79.0-92.2 MEAN CORPUSCULAR HEMOGLOBIN (BEAKER) (test 32.5 pg 25.7-32.2 xxfl=559) MEAN CORPUSCULAR HEMOGLOBIN CONC (BEAKER) (test 32.1 GM/DL 32.3-36.5 vxts=925) RED CELL DISTRIBUTION WIDTH (BEAKER) (test 18.7 % 11.6-14.4 aedt=852) PLATELET COUNT (BEAKER) (test lash=687) 177 K/CU MM 150-450 MEAN PLATELET VOLUME (BEAKER) (test jqie=164) 11.4 fL 9.4-12.4 NUCLEATED RED BLOOD CELLS (BEAKER) (test 0 /100 WBC 0-0 rfek=256) NEUTROPHILS RELATIVE PERCENT (BEAKER) (test 63 % xbps=989) LYMPHOCYTES RELATIVE PERCENT (BEAKER) (test 15 % wpfr=949) MONOCYTES RELATIVE PERCENT (BEAKER) (test 12 % udxr=701) EOSINOPHILS RELATIVE PERCENT (BEAKER) (test 8 % rale=600) BASOPHILS RELATIVE PERCENT (BEAKER) (test 1 % fful=277) NEUTROPHILS ABSOLUTE COUNT (BEAKER) (test 4.90 K/ L 1.78-5.38 lipb=165) LYMPHOCYTES ABSOLUTE COUNT (BEAKER) (test 1.16 K/ L 1.32-3.57 tkzd=951) MONOCYTES ABSOLUTE COUNT (BEAKER) (test 0.92 K/ L 0.30-0.82 wzuw=439) EOSINOPHILS ABSOLUTE COUNT (BEAKER) (test 0.65 K/ L 0.04-0.54 cfzp=574) BASOPHILS ABSOLUTE COUNT (BEAKER) (test 0.09 K/ L 0.01-0.08 lwix=925) IMMATURE GRANULOCYTES-RELATIVE PERCENT (BEAKER) 1 % 0-1 (test rfzn=6889) [id number] 06:08:00 Test Item Value Reference Range Comments POTASSIUM (BEAKER) (test ywzt=587) 4.1 meq/L 3.5-5.1 [id number] 06:08:00 Test Item Value Reference Range Comments MAGNESIUM (BEAKER) (test enpp=620) 1.7 mg/dL 1.6-2.6 [id number] 06:08:00 Test Item Value Reference Range Comments PHOSPHORUS (BEAKER) (test pmus=017) 2.4 mg/dL 2.3-4.7 POCT-GLUCOSE [id number] 05:20:00 Test Item Value Reference Range Comments POC-GLUCOSE METER (BEAKER) 170 mg/dL 70-110 TESTED AT [address] (test fcso=9383) [facility] [address] POCT-GLUCOSE [id number] 20:31:00 Test Item Value Reference Range Comments POC-GLUCOSE METER (BEAKER) 157 mg/dL 70-110 TESTED AT [address] (test yewq=8985) [facility] [address] POCT-GLUCOSE [id number] 15:40:00 Test Item Value Reference Range Comments POC-GLUCOSE METER (BEAKER) 148 mg/dL 70-110 TESTED AT [address] (test neye=3996) [facility] [address] [id number] 10:23:00 Test Item Value Reference Range Comments POTASSIUM (BEAKER) (test bfqb=350) 4.0 meq/L 3.5-5.1 CBC W/PLT COUNT & AUTO [id number] 05:56:00 Test Item Value Reference Range Comments WHITE BLOOD CELL COUNT (BEAKER) (test rsdf=585) 6.9 K/ L 3.5-10.5 RED BLOOD CELL COUNT (BEAKER) (test bslp=987) 2.06 M/ L 4.63-6.08 HEMOGLOBIN (BEAKER) (test fqql=959) 6.9 GM/DL 13.7-17.5 HEMATOCRIT (BEAKER) (test ktbh=120) 22.2 % 40.1-51.0 MEAN CORPUSCULAR VOLUME (BEAKER) (test muxb=686) 107.8 fL 79.0-92.2 MEAN CORPUSCULAR HEMOGLOBIN (BEAKER) (test 33.5 pg 25.7-32.2 pbpr=192) MEAN CORPUSCULAR HEMOGLOBIN CONC (BEAKER) (test 31.1 GM/DL 32.3-36.5 kfsr=023) RED CELL DISTRIBUTION WIDTH (BEAKER) (test 16.2 % 11.6-14.4 htvr=612) PLATELET COUNT (BEAKER) (test inzi=566) 200 K/CU MM 150-450 MEAN PLATELET VOLUME (BEAKER) (test dyxw=497) 11.0 fL 9.4-12.4 NUCLEATED RED BLOOD CELLS (BEAKER) (test 0 /100 WBC 0-0 kycd=169) NEUTROPHILS RELATIVE PERCENT (BEAKER) (test 59 % dteu=519) LYMPHOCYTES RELATIVE PERCENT (BEAKER) (test 21 % obkh=469) MONOCYTES RELATIVE PERCENT (BEAKER) (test 13 % umpx=056) EOSINOPHILS RELATIVE PERCENT (BEAKER) (test 6 % koxk=041) BASOPHILS RELATIVE PERCENT (BEAKER) (test 1 % dfcz=516) NEUTROPHILS ABSOLUTE COUNT (BEAKER) (test 4.08 K/ L 1.78-5.38 zayz=275) LYMPHOCYTES ABSOLUTE COUNT (BEAKER) (test 1.45 K/ L 1.32-3.57 qcuj=531) MONOCYTES ABSOLUTE COUNT (BEAKER) (test 0.90 K/ L 0.30-0.82 qnff=388) EOSINOPHILS ABSOLUTE COUNT (BEAKER) (test 0.38 K/ L 0.04-0.54 zyuo=931) BASOPHILS ABSOLUTE COUNT (BEAKER) (test 0.05 K/ L 0.01-0.08 hbgl=671) IMMATURE GRANULOCYTES-RELATIVE PERCENT (BEAKER) 1 % 0-1 (test uwqu=1006) [id number] 05:37:00 Test Item Value Reference Range Comments PHOSPHORUS (BEAKER) (test isox=610) 3.1 mg/dL 2.3-4.7 [id number] 05:37:00 Test Item Value Reference Range Comments MAGNESIUM (BEAKER) (test lvys=303) 2.1 mg/dL 1.6-2.6 POCT-GLUCOSE [id number] 17:48:00 Test Item Value Reference Range Comments POC-GLUCOSE METER (BEAKER) 154 mg/dL 70-110 TESTED AT [address] (test pszc=2020) [facility] [address] POCT-GLUCOSE [id number] 12:56:00 Test Item Value Reference Range Comments POC-GLUCOSE METER (BEAKER) 196 mg/dL 70-110 TESTED AT [address] (test mzrt=4511) [facility] [address] POCT-GLUCOSE [id number] 08:41:00 Test Item Value Reference Range Comments POC-GLUCOSE METER (BEAKER) 158 mg/dL 70-110 TESTED AT [place] [id number] (test ueve=8566) [place] [address] CBC W/PLT COUNT & AUTO [id number] 06:30:00 Test Item Value Reference Range Comments WHITE BLOOD CELL COUNT (BEAKER) (test khvz=299) 9.0 K/ L 3.5-10.5 RED BLOOD CELL COUNT (BEAKER) (test pnae=030) 2.49 M/ L 4.63-6.08 HEMOGLOBIN (BEAKER) (test dorm=489) 8.2 GM/DL 13.7-17.5 HEMATOCRIT (BEAKER) (test kroc=388) 27.2 % 40.1-51.0 MEAN CORPUSCULAR VOLUME (BEAKER) (test nlyv=069) 109.2 fL 79.0-92.2 MEAN CORPUSCULAR HEMOGLOBIN (BEAKER) (test 32.9 pg 25.7-32.2 fvts=484) MEAN CORPUSCULAR HEMOGLOBIN CONC (BEAKER) (test 30.1 GM/DL 32.3-36.5 udle=548) RED CELL DISTRIBUTION WIDTH (BEAKER) (test 15.9 % 11.6-14.4 wfax=471) PLATELET COUNT (BEAKER) (test wssf=440) 214 K/CU MM 150-450 MEAN PLATELET VOLUME (BEAKER) (test ivya=854) 11.3 fL 9.4-12.4 NUCLEATED RED BLOOD CELLS (BEAKER) (test 0 /100 WBC 0-0 cips=944) NEUTROPHILS RELATIVE PERCENT (BEAKER) (test 84 % yyqv=337) LYMPHOCYTES RELATIVE PERCENT (BEAKER) (test 7 % rjor=883) MONOCYTES RELATIVE PERCENT (BEAKER) (test 7 % grog=303) EOSINOPHILS RELATIVE PERCENT (BEAKER) (test 0 % udkz=475) BASOPHILS RELATIVE PERCENT (BEAKER) (test 1 % msrr=301) NEUTROPHILS ABSOLUTE COUNT (BEAKER) (test 7.60 K/ L 1.78-5.38 hdwy=417) LYMPHOCYTES ABSOLUTE COUNT (BEAKER) (test 0.61 K/ L 1.32-3.57 pkns=833) MONOCYTES ABSOLUTE COUNT (BEAKER) (test 0.65 K/ L 0.30-0.82 lcbk=157) EOSINOPHILS ABSOLUTE COUNT (BEAKER) (test 0.03 K/ L 0.04-0.54 gsrj=494) BASOPHILS ABSOLUTE COUNT (BEAKER) (test 0.09 K/ L 0.01-0.08 qkzb=511) IMMATURE GRANULOCYTES-RELATIVE PERCENT (BEAKER) 1 % 0-1 (test wylo=3627) [id number] 06:22:00 Test Item Value Reference Range Comments PHOSPHORUS (BEAKER) (test hrot=059) 3.0 mg/dL 2.3-4.7 [id number] 06:22:00 Test Item Value Reference Range Comments MAGNESIUM (BEAKER) (test dgak=107) 1.9 mg/dL 1.6-2.6 POCT-GLUCOSE [id number] 00:08:00 Test Item Value Reference Range Comments POC-GLUCOSE METER (BEAKER) 131 mg/dL 70-110 TESTED AT [address] (test ttel=5511) [facility] [address] POCT-GLUCOSE [id number] 18:50:00 Test Item Value Reference Range Comments POC-GLUCOSE METER (BEAKER) 136 mg/dL 70-110 TESTED AT [address] (test rkga=9320) [facility] [address] RAD, FOOT, MIN 3 VIEWS, [id number] 13:56:00Reason for exam:->non healing woundFINAL REPORT RAD, [...] MDReport Verified Date/Time: 09/04/2018 13:56:28 Reading Location: [facility] [id number] Consult Reading Room POCT- GLUCOSE [id number] 12:12:00 Test Item Value Reference Range Comments POC-GLUCOSE METER (BEAKER) 125 mg/dL 70-110 TESTED AT [address] (test jxiz=8799) [facility] [address] POCT-GLUCOSE [id number] 08:06:00 Test Item Value Reference Range Comments POC-GLUCOSE METER (BEAKER) 122 mg/dL 70-110 TESTED AT [facility] [address] (test olwh=0106) [facility] [facility] [address] CBC W/PLT COUNT & AUTO [id number] 04:43:00 Test Item Value Reference Range Comments WHITE BLOOD CELL COUNT (BEAKER) (test dukf=539) 8.1 K/ L 3.5-10.5 RED BLOOD CELL COUNT (BEAKER) (test ivnj=375) 2.40 M/ L 4.63-6.08 HEMOGLOBIN (BEAKER) (test zkvt=803) 7.9 GM/DL 13.7-17.5 HEMATOCRIT (BEAKER) (test vlul=508) 25.5 % 40.1-51.0 MEAN CORPUSCULAR VOLUME (BEAKER) (test vfdy=623) 106.3 fL 79.0-92.2 MEAN CORPUSCULAR HEMOGLOBIN (BEAKER) (test 32.9 pg 25.7-32.2 zril=946) MEAN CORPUSCULAR HEMOGLOBIN CONC (BEAKER) (test 31.0 GM/DL 32.3-36.5 pjnu=485) RED CELL DISTRIBUTION WIDTH (BEAKER) (test 15.1 % 11.6-14.4 jmui=926) PLATELET COUNT (BEAKER) (test usjz=436) 226 K/CU MM 150-450 MEAN PLATELET VOLUME (BEAKER) (test axrx=346) 11.1 fL 9.4-12.4 NUCLEATED RED BLOOD CELLS (BEAKER) (test 0 /100 WBC 0-0 subj=981) NEUTROPHILS RELATIVE PERCENT (BEAKER) (test 63 % nxxn=043) LYMPHOCYTES RELATIVE PERCENT (BEAKER) (test 16 % uvre=979) MONOCYTES RELATIVE PERCENT (BEAKER) (test 11 % nnab=217) EOSINOPHILS RELATIVE PERCENT (BEAKER) (test 9 % hxtv=841) BASOPHILS RELATIVE PERCENT (BEAKER) (test 1 % cjdh=828) NEUTROPHILS ABSOLUTE COUNT (BEAKER) (test 5.07 K/ L 1.78-5.38 oidr=521) LYMPHOCYTES ABSOLUTE COUNT (BEAKER) (test 1.31 K/ L 1.32-3.57 jjtk=396) MONOCYTES ABSOLUTE COUNT (BEAKER) (test 0.92 K/ L 0.30-0.82 ncnx=526) EOSINOPHILS ABSOLUTE COUNT (BEAKER) (test 0.70 K/ L 0.04-0.54 sdff=090) BASOPHILS ABSOLUTE COUNT (BEAKER) (test 0.07 K/ L 0.01-0.08 lgww=842) IMMATURE GRANULOCYTES-RELATIVE PERCENT (BEAKER) 0 % 0-1 (test vnec=1541) [id number] 04:39:00 Test Item Value Reference Range Comments PHOSPHORUS (BEAKER) (test ksbw=184) 2.9 mg/dL 2.3-4.7 [id number] 04:39:00 Test Item Value Reference Range Comments MAGNESIUM (BEAKER) (test tyow=379) 1.9 mg/dL 1.6-2.6 BASIC METABOLIC [id number] 04:39:00 Test Item Value Reference Range Comments SODIUM (BEAKER) (test 139 meq/L 136-145 dyoo=568) POTASSIUM (BEAKER) (test 4.3 meq/L 3.5-5.1 bpyk=656) CHLORIDE (BEAKER) (test 100 meq/L 98-107 knpf=147) CO2 (BEAKER) (test 30 meq/L 22-29 tfzn=111) BLOOD UREA NITROGEN 29 mg/dL 7-21 (BEAKER) (test mivw=860) CREATININE (BEAKER) (test 4.41 mg/dL 0.57-1.25 iglq=642) GLUCOSE RANDOM (BEAKER) 115 mg/dL 70-105 (test scmu=433) CALCIUM (BEAKER) (test 8.6 mg/dL 8.4-10.2 qrls=999) EGFR (BEAKER) (test 13 mL/min/1.73 sq m ESTIMATED GFR IS NOT ipkz=3060) ACCURATE CREATININE CLEARANCE IN PREDICTING GLOMERULAR FILTRATION RATE. ESTIMATED GFR IS NOT APPLICABLE FOR DIALYSIS PATIENTS. POCT-GLUCOSE [id number] 20:32:00 Test Item Value Reference Range Comments POC-GLUCOSE METER (BEAKER) 177 mg/dL 70-110 TESTED AT [facility] [address] [facility] (test iahb=2599) [facility] [address] POCT-GLUCOSE [id number] 18:07:00 Test Item Value Reference Range Comments POC-GLUCOSE METER (BEAKER) 141 mg/dL 70-110 TESTED AT [facility] [address] (test kwjf=6194) [facility] [address] RESPIRATORY PANEL [id number] 15:28:00 Test Item Value Reference Range Comments HUMAN METAPNEUMOVIRUS (BEAKER) (test Not detected Not detected, Equivocal zwgu=6877) RHINOVIRUS (BEAKER) (test uijn=0735) Not detected Not detected, Equivocal INFLUENZA A (BEAKER) (test vlvs=8376) Not detected Not detected, Equivocal INFLUENZA A (NO SUBTYPE) (test Not detected, Equivocal wwsq=6027) INFLUENZA A SUBTYPE H1 (BEAKER) (test Not detected, Equivocal sigi=2047) INFLUENZA A SUBTYPE H3 (BEAKER) (test Not detected, Equivocal qiac=2510) INFLUENZA A SUBTYPE H1-2009 (BEAKER) Not detected, Equivocal (test ypvd=8388) INFLUENZA B (BEAKER) (test qxbp=7655) Not detected Not detected, Equivocal RESPIRATORY SYNCYTIAL VIRUS (BEAKER) Not detected Not detected, Equivocal (test ejyo=4592) PARAINFLUENZA VIRUS 1 (BEAKER) (test Not detected Not detected, Equivocal suke=9334) PARAINFLUENZA VIRUS 2 (BEAKER) (test Not detected Not detected, Equivocal btza=9892) PARAINFLUENZA VIRUS 3 (BEAKER) (test Not detected Not detected, Equivocal vuvd=2844) PARAINFLUENZA VIRUS 4 (BEAKER) (test Not detected Not detected, Equivocal bpin=9678) ADENOVIRUS (BEAKER) (test nrwv=9451) Not detected Not detected, Equivocal CORONAVIRUS 229E (BEAKER) (test Not detected Not detected, Equivocal audb=3719) CORONAVIRUS HKU1 (BEAKER) (test Not detected Not detected, Equivocal xtnl=2172) CORONAVIRUS NL63 (BEAKER) (test Not detected Not detected, Equivocal eckc=9259) CORONAVIRUS OC43 (BEAKER) (test Not detected Not detected, Equivocal iufy=9479) BORDETELLA PERTUSSIS (BEAKER) (test Not detected Not detected, Equivocal tjsf=6419) CHLAMYDOPHILA PNEUMONIAE (BEAKER) (test Not detected Not detected, Equivocal makc=3543) MYCOPLASMA PNEUMONIAE (BEAKER) (test Not detected Not detected, Equivocal hwym=2326) Other viruses and bacteria not targeted by this PCR panel cannot be excluded; therefore clinical correlation and follow up of serology, culture results, and other molecular studies is required. The results are not intended to be used as the sole means for clinical diagnosis or patient management decisions. This sample was tested at the [facility] Molecular Diagnostics Laboratory using the RB-DoorsArray Respiratory Panel. It is FDA cleared and has been verified and approved by the [facility] for clinical use on nasal swab specimens. It is not FDA-cleared for use on bronchial wash/lavage samples. However, for this sample type, validation was performed and test characteristics were determined and approved, by [facility] for clinical use under the Clinical Laboratory Improvement Amendments (CLIA) of 1988 requirements. Therefore, FDA clearance isnot required. This laboratory is CLIA-certified and [employer] ([employer])-accredited to perform high complexity testing.POCT-GLUCOSE [id number] 12:53:00 Test Item Value Reference Range Comments POC-GLUCOSE METER (BEAKER) 147 mg/dL 70-110 TESTED AT [address] (test mfdn=5721) [place] [address] POCT-GLUCOSE [id number] 07:57:00 Test Item Value Reference Range Comments POC-GLUCOSE METER (BEAKER) 81 mg/dL 70-110 TESTED AT [address] (test xxxg=7152) [place] [address] BASIC METABOLIC [id number] 04:37:00 Test Item Value Reference Range Comments SODIUM (BEAKER) (test 140 meq/L 136-145 tcdt=733) POTASSIUM (BEAKER) (test 3.6 meq/L 3.5-5.1 gnnh=420) CHLORIDE (BEAKER) (test 102 meq/L 98-107 wrid=986) CO2 (BEAKER) (test 32 meq/L 22-29 anpj=646) BLOOD UREA NITROGEN 19 mg/dL 7-21 (BEAKER) (test dbdn=691) CREATININE (BEAKER) (test 3.20 mg/dL 0.57-1.25 svya=828) GLUCOSE RANDOM (BEAKER) 77 mg/dL 70-105 (test uuhj=661) CALCIUM (BEAKER) (test 8.3 mg/dL 8.4-10.2 gpro=946) EGFR (BEAKER) (test 19 mL/min/1.73 sq m ESTIMATED GFR IS NOT wpco=8617) ACCURATE CREATININE CLEARANCE IN PREDICTING GLOMERULAR FILTRATION RATE. ESTIMATED GFR IS NOT APPLICABLE FOR DIALYSIS PATIENTS. [id number] 04:34:00 Test Item Value Reference Range Comments PHOSPHORUS (BEAKER) (test mnvs=310) 1.6 mg/dL 2.3-4.7 [id number] 04:34:00 Test Item Value Reference Range Comments MAGNESIUM (BEAKER) (test tuwt=010) 1.8 mg/dL 1.6-2.6 CBC W/PLT COUNT & AUTO [id number] 04:31:00 Test Item Value Reference Range Comments WHITE BLOOD CELL COUNT (BEAKER) (test qbyb=225) 8.4 K/ L 3.5-10.5 RED BLOOD CELL COUNT (BEAKER) (test fdvl=257) 2.20 M/ L 4.63-6.08 HEMOGLOBIN (BEAKER) (test rbvo=363) 7.3 GM/DL 13.7-17.5 HEMATOCRIT (BEAKER) (test zgcc=569) 23.1 % 40.1-51.0 MEAN CORPUSCULAR VOLUME (BEAKER) (test jqte=528) 105.0 fL 79.0-92.2 MEAN CORPUSCULAR HEMOGLOBIN (BEAKER) (test 33.2 pg 25.7-32.2 crgg=613) MEAN CORPUSCULAR HEMOGLOBIN CONC (BEAKER) (test 31.6 GM/DL 32.3-36.5 kcty=987) RED CELL DISTRIBUTION WIDTH (BEAKER) (test 14.8 % 11.6-14.4 ipld=391) PLATELET COUNT (BEAKER) (test fjhr=369) 184 K/CU MM 150-450 MEAN PLATELET VOLUME (BEAKER) (test odob=761) 10.5 fL 9.4-12.4 NUCLEATED RED BLOOD CELLS (BEAKER) (test 0 /100 WBC 0-0 ouyn=474) NEUTROPHILS RELATIVE PERCENT (BEAKER) (test 62 % hddm=275) LYMPHOCYTES RELATIVE PERCENT (BEAKER) (test 20 % xsax=979) MONOCYTES RELATIVE PERCENT (BEAKER) (test 12 % fjrc=837) EOSINOPHILS RELATIVE PERCENT (BEAKER) (test 6 % wnci=713) BASOPHILS RELATIVE PERCENT (BEAKER) (test 1 % roqi=580) NEUTROPHILS ABSOLUTE COUNT (BEAKER) (test 5.18 K/ L 1.78-5.38 magc=621) LYMPHOCYTES ABSOLUTE COUNT (BEAKER) (test 1.66 K/ L 1.32-3.57 isxz=561) MONOCYTES ABSOLUTE COUNT (BEAKER) (test 0.96 K/ L 0.30-0.82 gswf=234) EOSINOPHILS ABSOLUTE COUNT (BEAKER) (test 0.51 K/ L 0.04-0.54 vlsw=900) BASOPHILS ABSOLUTE COUNT (BEAKER) (test 0.04 K/ L 0.01-0.08 hhok=874) IMMATURE GRANULOCYTES-RELATIVE PERCENT (BEAKER) 0 % 0-1 (test fpnq=9983) POCT-GLUCOSE [id number] 22:13:00 Test Item Value Reference Range Comments POC-GLUCOSE METER (BEAKER) 197 mg/dL 70-110 TESTED AT [address] (test cmls=8848) [place] [id number] POCT-GLUCOSE [id number] 17:38:00 Test Item Value Reference Range Comments POC-GLUCOSE METER (BEAKER) 229 mg/dL 70-110 TESTED AT [address] (test xlif=3582) [place] [id number] POCT-GLUCOSE [id number] 08:11:00 Test Item Value Reference Range Comments POC-GLUCOSE METER (BEAKER) 148 mg/dL 70-110 TESTED AT [address] (test pbcm=8494) [facility] [address] [id number] 07:28:00 Test Item Value Reference Range Comments FERRITIN (BEAKER) (test kcvm=094) 414 ng/mL 5-275 IRON, TIBC, % SAT. (WITHOUT FERRITIN)2018-09-02 07:03:00 Test Item Value Reference Range Comments IRON (BEAKER) (test ewrz=584) 55.0 ug/dL 40.0-160.0 TOTAL IRON BINDING CAPACITY (BEAKER) (test 148 ug/dL 250-450 hhdo=131) IRON % SATURATION (2) (BEAKER) (test easj=7127) 37 % 20-55 BASIC METABOLIC [id number] 04:17:00 Test Item Value Reference Range Comments SODIUM (BEAKER) (test 135 meq/L 136-145 amxo=690) POTASSIUM (BEAKER) (test 4.4 meq/L 3.5-5.1 wwvh=621) CHLORIDE (BEAKER) (test 101 meq/L 98-107 xpeq=017) CO2 (BEAKER) (test 26 meq/L 22-29 vosi=755) BLOOD UREA NITROGEN 29 mg/dL 7-21 (BEAKER) (test wocm=529) CREATININE (BEAKER) (test 5.20 mg/dL 0.57-1.25 ukle=060) GLUCOSE RANDOM (BEAKER) 119 mg/dL 70-105 (test bwzi=237) CALCIUM (BEAKER) (test 8.4 mg/dL 8.4-10.2 vwxj=375) EGFR (BEAKER) (test 11 mL/min/1.73 sq m ESTIMATED GFR IS NOT wkmd=8995) ACCURATE CREATININE CLEARANCE IN PREDICTING GLOMERULAR FILTRATION RATE. ESTIMATED GFR IS NOT APPLICABLE FOR DIALYSIS PATIENTS. CBC W/PLT COUNT & AUTO [id number] 04:13:00 Test Item Value Reference Range Comments WHITE BLOOD CELL COUNT (BEAKER) (test ahzt=752) 8.1 K/ L 3.5-10.5 RED BLOOD CELL COUNT (BEAKER) (test tuxs=324) 2.19 M/ L 4.63-6.08 HEMOGLOBIN (BEAKER) (test vlot=989) 7.3 GM/DL 13.7-17.5 HEMATOCRIT (BEAKER) (test lsvq=825) 23.1 % 40.1-51.0 MEAN CORPUSCULAR VOLUME (BEAKER) (test ulfc=162) 105.5 fL 79.0-92.2 MEAN CORPUSCULAR HEMOGLOBIN (BEAKER) (test 33.3 pg 25.7-32.2 gfid=085) MEAN CORPUSCULAR HEMOGLOBIN CONC (BEAKER) (test 31.6 GM/DL 32.3-36.5 qtus=587) RED CELL DISTRIBUTION WIDTH (BEAKER) (test 14.7 % 11.6-14.4 amsm=167) PLATELET COUNT (BEAKER) (test seuc=592) 168 K/CU MM 150-450 MEAN PLATELET VOLUME (BEAKER) (test amxw=298) 11.4 fL 9.4-12.4 NUCLEATED RED BLOOD CELLS (BEAKER) (test 0 /100 WBC 0-0 upfx=105) NEUTROPHILS RELATIVE PERCENT (BEAKER) (test 63 % tvjy=744) LYMPHOCYTES RELATIVE PERCENT (BEAKER) (test 17 % ectp=615) MONOCYTES RELATIVE PERCENT (BEAKER) (test 9 % rhgy=419) EOSINOPHILS RELATIVE PERCENT (BEAKER) (test 10 % ohju=992) BASOPHILS RELATIVE PERCENT (BEAKER) (test 0 % egut=626) NEUTROPHILS ABSOLUTE COUNT (BEAKER) (test 5.13 K/ L 1.78-5.38 spfj=976) LYMPHOCYTES ABSOLUTE COUNT (BEAKER) (test 1.40 K/ L 1.32-3.57 snko=053) MONOCYTES ABSOLUTE COUNT (BEAKER) (test 0.72 K/ L 0.30-0.82 qsgv=621) EOSINOPHILS ABSOLUTE COUNT (BEAKER) (test 0.81 K/ L 0.04-0.54 mhju=154) BASOPHILS ABSOLUTE COUNT (BEAKER) (test 0.03 K/ L 0.01-0.08 hcas=583) IMMATURE GRANULOCYTES-RELATIVE PERCENT (BEAKER) 0 % 0-1 (test yzft=9769) [id number] 04:11:00 Test Item Value Reference Range Comments PHOSPHORUS (BEAKER) (test msjj=474) 3.5 mg/dL 2.3-4.7 [id number] 04:11:00 Test Item Value Reference Range Comments MAGNESIUM (BEAKER) (test tzwg=927) 2.2 mg/dL 1.6-2.6 POCT-GLUCOSE [id number] 21:35:00 Test Item Value Reference Range Comments POC-GLUCOSE METER (BEAKER) 165 mg/dL 70-110 TESTED AT [address] (test irtd=4221) [facility] [address] POCT-GLUCOSE [id number] 17:33:00 Test Item Value Reference Range Comments POC-GLUCOSE METER (BEAKER) 200 mg/dL 70-110 TESTED AT [address] (test houh=5387) [facility] [address] POCT-GLUCOSE [id number] 13:15:00 Test Item Value Reference Range Comments POC-GLUCOSE METER (BEAKER) 188 mg/dL 70-110 TESTED AT [address] (test eosc=0520) [facility] [address] POCT-GLUCOSE [id number] 09:59:00 Test Item Value Reference Range Comments POC-GLUCOSE METER (BEAKER) 214 mg/dL 70-110 TESTED AT [facility] [address] (test xbqz=0091) [place] [address] CBC W/PLT COUNT & AUTO [id number] 07:15:00 Test Item Value Reference Range Comments WHITE BLOOD CELL COUNT (BEAKER) (test ckds=311) 7.6 K/ L 3.5-10.5 RED BLOOD CELL COUNT (BEAKER) (test pxif=724) 2.26 M/ L 4.63-6.08 HEMOGLOBIN (BEAKER) (test pgah=125) 7.6 GM/DL 13.7-17.5 HEMATOCRIT (BEAKER) (test oprn=956) 24.1 % 40.1-51.0 MEAN CORPUSCULAR VOLUME (BEAKER) (test hpdd=198) 106.6 fL 79.0-92.2 MEAN CORPUSCULAR HEMOGLOBIN (BEAKER) (test 33.6 pg 25.7-32.2 cnpt=560) MEAN CORPUSCULAR HEMOGLOBIN CONC (BEAKER) (test 31.5 GM/DL 32.3-36.5 lteb=212) RED CELL DISTRIBUTION WIDTH (BEAKER) (test 14.6 % 11.6-14.4 zljt=579) PLATELET COUNT (BEAKER) (test oayh=633) 155 K/CU MM 150-450 MEAN PLATELET VOLUME (BEAKER) (test iaap=969) 11.7 fL 9.4-12.4 NUCLEATED RED BLOOD CELLS (BEAKER) (test 0 /100 WBC 0-0 dvmn=919) NEUTROPHILS RELATIVE PERCENT (BEAKER) (test 64 % oitp=323) LYMPHOCYTES RELATIVE PERCENT (BEAKER) (test 14 % fvlh=052) MONOCYTES RELATIVE PERCENT (BEAKER) (test 11 % mdgb=708) EOSINOPHILS RELATIVE PERCENT (BEAKER) (test 10 % sqco=646) BASOPHILS RELATIVE PERCENT (BEAKER) (test 1 % djmc=478) NEUTROPHILS ABSOLUTE COUNT (BEAKER) (test 4.88 K/ L 1.78-5.38 bevp=543) LYMPHOCYTES ABSOLUTE COUNT (BEAKER) (test 1.04 K/ L 1.32-3.57 mica=004) MONOCYTES ABSOLUTE COUNT (BEAKER) (test 0.82 K/ L 0.30-0.82 tfgs=415) EOSINOPHILS ABSOLUTE COUNT (BEAKER) (test 0.77 K/ L 0.04-0.54 podp=761) BASOPHILS ABSOLUTE COUNT (BEAKER) (test 0.04 K/ L 0.01-0.08 cdxw=465) IMMATURE GRANULOCYTES-RELATIVE PERCENT (BEAKER) 0 % 0-1 (test fjmk=4657) BASIC METABOLIC [id number] 06:48:00 Test Item Value Reference Range Comments SODIUM (BEAKER) (test 133 meq/L 136-145 uifc=623) POTASSIUM (BEAKER) (test 3.4 meq/L 3.5-5.1 tine=048) CHLORIDE (BEAKER) (test 99 meq/L 98-107 iwwe=603) CO2 (BEAKER) (test 27 meq/L 22-29 soti=596) BLOOD UREA NITROGEN 20 mg/dL 7-21 (BEAKER) (test lcai=229) CREATININE (BEAKER) (test 4.24 mg/dL 0.57-1.25 cijz=183) GLUCOSE RANDOM (BEAKER) 165 mg/dL 70-105 (test nnhr=274) CALCIUM (BEAKER) (test 8.4 mg/dL 8.4-10.2 mmsz=772) EGFR (BEAKER) (test 14 mL/min/1.73 sq m ESTIMATED GFR IS NOT lxuz=9888) ACCURATE CREATININE CLEARANCE IN PREDICTING GLOMERULAR FILTRATION RATE. ESTIMATED GFR IS NOT APPLICABLE FOR DIALYSIS PATIENTS. [id number] 06:43:00 Test Item Value Reference Range Comments PHOSPHORUS (BEAKER) (test lvju=226) 1.7 mg/dL 2.3-4.7 [id number] 06:43:00 Test Item Value Reference Range Comments MAGNESIUM (BEAKER) (test yhde=720) 1.9 mg/dL 1.6-2.6 POCT-GLUCOSE [id number] 06:32:00 Test Item Value Reference Range Comments POC-GLUCOSE METER (BEAKER) 201 mg/dL 70-110 TESTED AT [address] (test ebaw=5194) [facility] [address] POCT-GLUCOSE [id number] 17:39:00 Test Item Value Reference Range Comments POC-GLUCOSE METER (BEAKER) 206 mg/dL 70-110 TESTED AT [address] (test fjdi=8781) [facility] [address] POCT-GLUCOSE [id number] 12:46:00 Test Item Value Reference Range Comments POC-GLUCOSE METER (BEAKER) 191 mg/dL 70-110 TESTED AT [facility] [address] [facility] (test kolo=6856) [facility] [address] POCT-GLUCOSE [id number] 09:46:00 Test Item Value Reference Range Comments POC-GLUCOSE METER (BEAKER) 105 mg/dL 70-110 TESTED AT [place] [id number] [facility] (test atfv=0426) [facility] [address] POCT-GLUCOSE [id number] 08:34:00 Test Item Value Reference Range Comments POC-GLUCOSE METER (BEAKER) 145 mg/dL 70-110 TESTED AT [address] (test kxxo=6667) [facility] [address] TROPONIN [id number] 04:58:00 Test Item Value Reference Range Comments TROPONIN I (BEAKER) (test wusj=317) 0.07 ng/mL 0.00-0.03 Troponin I (TnI) levels [...] acute neurological disease, and persistent tachyarrhythmia.BASIC METABOLIC [id number] 04:54:00 Test Item Value Reference Range Comments SODIUM (BEAKER) (test 135 meq/L 136-145 maft=162) POTASSIUM (BEAKER) (test 3.9 meq/L 3.5-5.1 cbii=382) CHLORIDE (BEAKER) (test 100 meq/L 98-107 wiul=005) CO2 (BEAKER) (test 27 meq/L 22-29 bduo=101) BLOOD UREA NITROGEN 12 mg/dL 7-21 (BEAKER) (test zafi=338) CREATININE (BEAKER) (test 2.68 mg/dL 0.57-1.25 fzdz=571) GLUCOSE RANDOM (BEAKER) 132 mg/dL 70-105 (test tqbd=982) CALCIUM (BEAKER) (test 8.6 mg/dL 8.4-10.2 tyly=965) EGFR (BEAKER) (test 23 mL/min/1.73 sq m ESTIMATED GFR IS NOT acqm=8612) ACCURATE CREATININE CLEARANCE IN PREDICTING GLOMERULAR FILTRATION RATE. ESTIMATED GFR IS NOT APPLICABLE FOR DIALYSIS PATIENTS. [id number] 04:50:00 Test Item Value Reference Range Comments PHOSPHORUS (BEAKER) (test dzif=340) 2.0 mg/dL 2.3-4.7 [id number] 04:50:00 Test Item Value Reference Range Comments MAGNESIUM (BEAKER) (test hjyv=910) 1.8 mg/dL 1.6-2.6 CBC W/PLT COUNT & AUTO [id number] 04:27:00 Test Item Value Reference Range Comments WHITE BLOOD CELL COUNT (BEAKER) (test pyzr=488) 7.8 K/ L 3.5-10.5 RED BLOOD CELL COUNT (BEAKER) (test yydf=211) 2.63 M/ L 4.63-6.08 HEMOGLOBIN (BEAKER) (test lsyp=499) 8.6 GM/DL 13.7-17.5 HEMATOCRIT (BEAKER) (test vtwf=202) 27.3 % 40.1-51.0 MEAN CORPUSCULAR VOLUME (BEAKER) (test yttz=144) 103.8 fL 79.0-92.2 MEAN CORPUSCULAR HEMOGLOBIN (BEAKER) (test 32.7 pg 25.7-32.2 dmyr=004) MEAN CORPUSCULAR HEMOGLOBIN CONC (BEAKER) (test 31.5 GM/DL 32.3-36.5 wwag=747) RED CELL DISTRIBUTION WIDTH (BEAKER) (test 14.3 % 11.6-14.4 uxav=298) PLATELET COUNT (BEAKER) (test slmr=804) 156 K/CU MM 150-450 MEAN PLATELET VOLUME (BEAKER) (test bzbz=973) 11.0 fL 9.4-12.4 NUCLEATED RED BLOOD CELLS (BEAKER) (test 0 /100 WBC 0-0 qbhw=017) NEUTROPHILS RELATIVE PERCENT (BEAKER) (test 77 % fpib=286) LYMPHOCYTES RELATIVE PERCENT (BEAKER) (test 8 % ytsb=790) MONOCYTES RELATIVE PERCENT (BEAKER) (test 9 % srne=768) EOSINOPHILS RELATIVE PERCENT (BEAKER) (test 5 % sbbr=818) BASOPHILS RELATIVE PERCENT (BEAKER) (test 1 % xrrx=560) NEUTROPHILS ABSOLUTE COUNT (BEAKER) (test 5.98 K/ L 1.78-5.38 pthz=468) LYMPHOCYTES ABSOLUTE COUNT (BEAKER) (test 0.62 K/ L 1.32-3.57 ypqp=193) MONOCYTES ABSOLUTE COUNT (BEAKER) (test 0.72 K/ L 0.30-0.82 wimn=424) EOSINOPHILS ABSOLUTE COUNT (BEAKER) (test 0.35 K/ L 0.04-0.54 iopt=357) BASOPHILS ABSOLUTE COUNT (BEAKER) (test 0.05 K/ L 0.01-0.08 ybuk=979) IMMATURE GRANULOCYTES-RELATIVE PERCENT (BEAKER) 1 % 0-1 (test txze=0473) TROPONIN [id number] 23:54:00 Test Item Value Reference Range Comments TROPONIN I (BEAKER) (test pzkn=024) 0.06 ng/mL 0.00-0.03 Troponin I (TnI) levels [...] acidosis, acute neurological disease, and persistent tachyarrhythmia.POCT-GLUCOSE [id number] 21:10:00 Test Item Value Reference Range Comments POC-GLUCOSE METER (BEAKER) 118 mg/dL 70-110 TESTED AT [place] [id number] [facility] (test huxu=6150) [facility] [id number] TROPONIN [id number] 19:00:00 Test Item Value Reference Range Comments TROPONIN I (BEAKER) (test yhcx=428) 0.05 ng/mL 0.00-0.03 Troponin I (TnI) levels [...] acidosis, acute neurological disease, and persistent tachyarrhythmia.POCT-GLUCOSE [id number] 18:30:00 Test Item Value Reference Range Comments POC-GLUCOSE METER (BEAKER) 134 mg/dL 70-110 TESTED AT [facility] [address] (test exjl=2779) [facility] [id number] TROPONIN [id number] 17:24:00 Test Item Value Reference Range Comments TROPONIN I (BEAKER) (test iguu=484) 0.06 ng/mL 0.00-0.03 Troponin I (TnI) levels [...] acute neurological disease, and persistent tachyarrhythmia.BASIC METABOLIC [id number] 17:17:00 Test Item Value Reference Range Comments SODIUM (BEAKER) (test 132 meq/L 136-145 bptw=232) POTASSIUM (BEAKER) (test 4.3 meq/L 3.5-5.1 gasp=930) CHLORIDE (BEAKER) (test 98 meq/L 98-107 rgcr=806) CO2 (BEAKER) (test 24 meq/L 22-29 dyaq=161) BLOOD UREA NITROGEN 31 mg/dL 7-21 (BEAKER) (test ynpi=108) CREATININE (BEAKER) (test 5.30 mg/dL 0.57-1.25 yzzi=188) GLUCOSE RANDOM (BEAKER) 142 mg/dL 70-105 (test cvxs=370) CALCIUM (BEAKER) (test 9.1 mg/dL 8.4-10.2 grny=117) EGFR (BEAKER) (test 11 mL/min/1.73 sq m ESTIMATED GFR IS NOT ctih=6938) ACCURATE CREATININE CLEARANCE IN PREDICTING GLOMERULAR FILTRATION RATE. ESTIMATED GFR IS NOT APPLICABLE FOR DIALYSIS PATIENTS. [id number] 17:16:00 Test Item Value Reference Range Comments PHOSPHORUS (BEAKER) (test rxlk=218) 2.5 mg/dL 2.3-4.7 [id number] 17:16:00 Test Item Value Reference Range Comments MAGNESIUM (BEAKER) (test jyci=079) 1.8 mg/dL 1.6-2.6 BASIC METABOLIC [id number] 13:14:00 Test Item Value Reference Range Comments SODIUM (BEAKER) (test 132 meq/L 136-145 xuoo=905) POTASSIUM (BEAKER) (test 4.2 meq/L 3.5-5.1 jctq=730) CHLORIDE (BEAKER) (test 99 meq/L 98-107 xlvh=026) CO2 (BEAKER) (test 26 meq/L 22-29 yvst=934) BLOOD UREA NITROGEN 29 mg/dL 7-21 (BEAKER) (test htht=856) CREATININE (BEAKER) (test 4.83 mg/dL 0.57-1.25 ajbm=060) GLUCOSE RANDOM (BEAKER) 124 mg/dL 70-105 (test pmam=148) CALCIUM (BEAKER) (test 8.7 mg/dL 8.4-10.2 qzrr=061) EGFR (BEAKER) (test 12 mL/min/1.73 sq m ESTIMATED GFR IS NOT xwwv=6988) ACCURATE CREATININE CLEARANCE IN PREDICTING GLOMERULAR FILTRATION RATE. ESTIMATED GFR IS NOT APPLICABLE FOR DIALYSIS PATIENTS. CBC W/PLT COUNT & AUTO [id number] 12:49:00 Test Item Value Reference Range Comments WHITE BLOOD CELL COUNT (BEAKER) (test oaka=169) 10.7 K/ L 3.5-10.5 RED BLOOD CELL COUNT (BEAKER) (test rdtw=692) 2.74 M/ L 4.63-6.08 HEMOGLOBIN (BEAKER) (test atqp=761) 9.3 GM/DL 13.7-17.5 HEMATOCRIT (BEAKER) (test seoj=857) 28.4 % 40.1-51.0 MEAN CORPUSCULAR VOLUME (BEAKER) (test nxdr=397) 103.6 fL 79.0-92.2 MEAN CORPUSCULAR HEMOGLOBIN (BEAKER) (test 33.9 pg 25.7-32.2 mycy=655) MEAN CORPUSCULAR HEMOGLOBIN CONC (BEAKER) (test 32.7 GM/DL 32.3-36.5 hmhk=536) RED CELL DISTRIBUTION WIDTH (BEAKER) (test 14.0 % 11.6-14.4 jkra=918) PLATELET COUNT (BEAKER) (test lnbb=999) 163 K/CU MM 150-450 MEAN PLATELET VOLUME (BEAKER) (test tjoi=397) 10.9 fL 9.4-12.4 NUCLEATED RED BLOOD CELLS (BEAKER) (test 0 /100 WBC 0-0 dnkn=752) NEUTROPHILS RELATIVE PERCENT (BEAKER) (test 81 % tuji=824) LYMPHOCYTES RELATIVE PERCENT (BEAKER) (test 9 % wdvf=921) MONOCYTES RELATIVE PERCENT (BEAKER) (test 1 % octo=780) EOSINOPHILS RELATIVE PERCENT (BEAKER) (test 5 % heeb=430) BASOPHILS RELATIVE PERCENT (BEAKER) (test 0 % fhst=070) NEUTROPHILS ABSOLUTE COUNT (BEAKER) (test 8.71 K/ L 1.78-5.38 jgxu=156) LYMPHOCYTES ABSOLUTE COUNT (BEAKER) (test 0.94 K/ L 1.32-3.57 bmek=578) MONOCYTES ABSOLUTE COUNT (BEAKER) (test 0.13 K/ L 0.30-0.82 ulvb=199) EOSINOPHILS ABSOLUTE COUNT (BEAKER) (test 0.53 K/ L 0.04-0.54 wvko=431) BASOPHILS ABSOLUTE COUNT (BEAKER) (test 0.04 K/ L 0.01-0.08 baza=224) IMMATURE GRANULOCYTES-RELATIVE PERCENT (BEAKER) 4 % 0-1 (test ibhx=4071) BLOOD GAS, [id number] 11:37:00 Test Item Value Reference Range Comments PH ARTERIAL (BEAKER) (test qzac=055) 7.43 7.35-7.45 PCO2 ARTERIAL (BEAKER) (test mvqp=971) 41 mmHg 35-45 PO2 ARTERIAL (BEAKER) (test ngyq=739) 297 mmHg 80-90 O2 SATURATION ARTERIAL (BEAKER) (test sqag=862) 99.7 % 96.0-97.0 HCO3 ARTERIAL (BEAKER) (test lygu=798) 27 mmol/L 21-29 BASE EXCESS ARTERIAL (BEAKER) (test iyyr=660) 2.0 mmol/L -2.0-3.0 PATIENT TEMPERATURE (BEAKER) (test urdm=0013) 35.1 C FIO2 (BEAKER) (test fnau=2063) 100.0 % GLUCOSE-STAT [id number] 11:37:00 Test Item Value Reference Range Comments GLUCOSE RANDOM (BEAKER) (test fffy=466) 112 mg/dL 70-110 SODIUM NA-STAT [id number] 11:37:00 Test Item Value Reference Range Comments SODIUM (BEAKER) (test etzz=200) 130 meq/L 135-148 HGB/HCT (H&H) - STAT [id number] 11:37:00 Test Item Value Reference Range Comments HEMOGLOBIN (BEAKER) (test auhn=089) 9.9 g/dL 13.0-16.8 HEMATOCRIT (BEAKER) (test fqra=258) 29.0 % 40.0-50.0 [id number] 11:35:00 Test Item Value Reference Range Comments ACTIVATED CLOTTING TIME 142 sec TESTED AT [place] [address] [place] (BEAKER) (test fied=150) [place] [address] POTASSIUM-STAT [id number] 11:35:00 Test Item Value Reference Range Comments POTASSIUM (BEAKER) (test vxrv=542) 4.0 meq/L 3.6-5.5 [id number] 11:35:00 Test Item Value Reference Range Comments ACTIVATED CLOTTING TIME 224 sec TESTED AT [place] [address] [place] (BEAKER) (test gamk=515) [place] [address] [id number] 11:35:00 Test Item Value Reference Range Comments ACTIVATED CLOTTING TIME 241 sec TESTED AT [place] [address] [place] (BEAKER) (test olpu=826) [place] [address] POCT-GLUCOSE [id number] 06:01:00 Test Item Value Reference Range Comments POC-GLUCOSE METER (BEAKER) 119 mg/dL 70-110 TESTED AT [address] (test xmzn=8671) [place] [address] BASIC METABOLIC [id number] 03:31:00 Test Item Value Reference Range Comments SODIUM (BEAKER) (test 133 meq/L 136-145 vtrs=923) POTASSIUM (BEAKER) (test 4.2 meq/L 3.5-5.1 zsvk=468) CHLORIDE (BEAKER) (test 96 meq/L 98-107 tbyx=169) CO2 (BEAKER) (test 29 meq/L 22-29 mvsk=644) BLOOD UREA NITROGEN 28 mg/dL 7-21 (BEAKER) (test insy=503) CREATININE (BEAKER) (test 4.83 mg/dL 0.57-1.25 tzmu=962) GLUCOSE RANDOM (BEAKER) 128 mg/dL 70-105 (test erbs=224) CALCIUM (BEAKER) (test 8.8 mg/dL 8.4-10.2 zdry=682) EGFR (BEAKER) (test 12 mL/min/1.73 sq m ESTIMATED GFR IS NOT eqrv=1874) ACCURATE CREATININE CLEARANCE IN PREDICTING GLOMERULAR FILTRATION RATE. ESTIMATED GFR IS NOT APPLICABLE FOR DIALYSIS PATIENTS. BASIC METABOLIC [id number] 03:31:00 Test Item Value Reference Range Comments SODIUM (BEAKER) (test 133 meq/L 136-145 jrch=395) POTASSIUM (BEAKER) (test 4.2 meq/L 3.5-5.1 esph=544) CHLORIDE (BEAKER) (test 96 meq/L 98-107 wnkl=394) CO2 (BEAKER) (test 29 meq/L 22-29 uwgn=349) BLOOD UREA NITROGEN 28 mg/dL 7-21 (BEAKER) (test pton=887) CREATININE (BEAKER) (test 4.84 mg/dL 0.57-1.25 tetu=357) GLUCOSE RANDOM (BEAKER) 128 mg/dL 70-105 (test aryg=515) CALCIUM (BEAKER) (test 8.9 mg/dL 8.4-10.2 cqbb=522) EGFR (BEAKER) (test 12 mL/min/1.73 sq m ESTIMATED GFR IS NOT wyib=2474) ACCURATE CREATININE CLEARANCE IN PREDICTING GLOMERULAR FILTRATION RATE. ESTIMATED GFR IS NOT APPLICABLE FOR DIALYSIS PATIENTS. [id number] 03:25:00 Test Item Value Reference Range Comments PHOSPHORUS (BEAKER) (test flfb=918) 2.4 mg/dL 2.3-4.7 [id number] 03:25:00 Test Item Value Reference Range Comments MAGNESIUM (BEAKER) (test htnb=354) 1.9 mg/dL 1.6-2.6 CALCIUM, [id number] 03:22:00 Test Item Value Reference Range Comments CALCIUM IONIZED (BEAKER) (test asle=589) 1.07 mmol/L 1.12-1.27 PH, BLOOD (BEAKER) (test mwco=3665) 7.43 PROTHROMBIN [id number] 03:22:00 Test Item Value Reference Range Comments PROTIME (BEAKER) (test vrka=085) 14.9 seconds 11.7-14.7 INR (BEAKER) (test owqz=170) 1.2 <=5.9 RECOMMENDED COUMADIN/WARFARIN INR THERAPY RANGESSTANDARD DOSE: 2.0 - 3.0 Includes: PROPHYLAXIS forvenous thrombosis, systemic embolization; TREATMENT for venous thrombosis and/or pulmonary embolus.HIGH RISK: Target INR is 2.5-3.5 for patients with mechanical heart valves.CBC W/PLT COUNT & AUTO [id number] 03:07:00 Test Item Value Reference Range Comments WHITE BLOOD CELL COUNT (BEAKER) (test ddbu=755) 8.2 K/ L 3.5-10.5 RED BLOOD CELL COUNT (BEAKER) (test dote=676) 2.65 M/ L 4.63-6.08 HEMOGLOBIN (BEAKER) (test famp=522) 8.8 GM/DL 13.7-17.5 HEMATOCRIT (BEAKER) (test fioh=049) 27.2 % 40.1-51.0 MEAN CORPUSCULAR VOLUME (BEAKER) (test ujey=041) 102.6 fL 79.0-92.2 MEAN CORPUSCULAR HEMOGLOBIN (BEAKER) (test 33.2 pg 25.7-32.2 dbai=431) MEAN CORPUSCULAR HEMOGLOBIN CONC (BEAKER) (test 32.4 GM/DL 32.3-36.5 fqds=366) RED CELL DISTRIBUTION WIDTH (BEAKER) (test 13.6 % 11.6-14.4 bcxz=808) PLATELET COUNT (BEAKER) (test yapg=629) 173 K/CU MM 150-450 MEAN PLATELET VOLUME (BEAKER) (test ttha=746) 11.1 fL 9.4-12.4 NUCLEATED RED BLOOD CELLS (BEAKER) (test 0 /100 WBC 0-0 tlvm=450) NEUTROPHILS RELATIVE PERCENT (BEAKER) (test 68 % xrnr=553) LYMPHOCYTES RELATIVE PERCENT (BEAKER) (test 15 % xipt=972) MONOCYTES RELATIVE PERCENT (BEAKER) (test 9 % nmjl=800) EOSINOPHILS RELATIVE PERCENT (BEAKER) (test 7 % eygk=731) BASOPHILS RELATIVE PERCENT (BEAKER) (test 1 % qvjn=324) NEUTROPHILS ABSOLUTE COUNT (BEAKER) (test 5.57 K/ L 1.78-5.38 hmuj=610) LYMPHOCYTES ABSOLUTE COUNT (BEAKER) (test 1.24 K/ L 1.32-3.57 zvnb=649) MONOCYTES ABSOLUTE COUNT (BEAKER) (test 0.70 K/ L 0.30-0.82 pafk=007) EOSINOPHILS ABSOLUTE COUNT (BEAKER) (test 0.61 K/ L 0.04-0.54 clsn=092) BASOPHILS ABSOLUTE COUNT (BEAKER) (test 0.05 K/ L 0.01-0.08 kxnn=435) IMMATURE GRANULOCYTES-RELATIVE PERCENT (BEAKER) 1 % 0-1 (test anrx=1006) CBC W/PLT COUNT & AUTO [id number] 03:05:00 Test Item Value Reference Range Comments WHITE BLOOD CELL COUNT (BEAKER) (test vnpv=050) 8.3 K/ L 3.5-10.5 RED BLOOD CELL COUNT (BEAKER) (test qlcj=620) 2.71 M/ L 4.63-6.08 HEMOGLOBIN (BEAKER) (test dour=564) 8.9 GM/DL 13.7-17.5 HEMATOCRIT (BEAKER) (test alqg=601) 27.9 % 40.1-51.0 MEAN CORPUSCULAR VOLUME (BEAKER) (test ywkp=114) 103.0 fL 79.0-92.2 MEAN CORPUSCULAR HEMOGLOBIN (BEAKER) (test 32.8 pg 25.7-32.2 pynm=627) MEAN CORPUSCULAR HEMOGLOBIN CONC (BEAKER) (test 31.9 GM/DL 32.3-36.5 juyh=642) RED CELL DISTRIBUTION WIDTH (BEAKER) (test 13.9 % 11.6-14.4 vllx=092) PLATELET COUNT (BEAKER) (test innx=316) 170 K/CU MM 150-450 MEAN PLATELET VOLUME (BEAKER) (test uggy=239) 11.1 fL 9.4-12.4 NUCLEATED RED BLOOD CELLS (BEAKER) (test 0 /100 WBC 0-0 rssl=920) NEUTROPHILS RELATIVE PERCENT (BEAKER) (test 67 % hcji=288) LYMPHOCYTES RELATIVE PERCENT (BEAKER) (test 15 % zkna=293) MONOCYTES RELATIVE PERCENT (BEAKER) (test 9 % ladq=648) EOSINOPHILS RELATIVE PERCENT (BEAKER) (test 8 % bwbn=163) BASOPHILS RELATIVE PERCENT (BEAKER) (test 1 % jwki=566) NEUTROPHILS ABSOLUTE COUNT (BEAKER) (test 5.61 K/ L 1.78-5.38 bcwr=796) LYMPHOCYTES ABSOLUTE COUNT (BEAKER) (test 1.22 K/ L 1.32-3.57 xipy=394) MONOCYTES ABSOLUTE COUNT (BEAKER) (test 0.75 K/ L 0.30-0.82 qncb=189) EOSINOPHILS ABSOLUTE COUNT (BEAKER) (test 0.64 K/ L 0.04-0.54 ilbo=060) BASOPHILS ABSOLUTE COUNT (BEAKER) (test 0.06 K/ L 0.01-0.08 rwbm=512) IMMATURE GRANULOCYTES-RELATIVE PERCENT (BEAKER) 1 % 0-1 (test mocl=5015) POCT-GLUCOSE [id number] 02:55:00 Test Item Value Reference Range Comments POC-GLUCOSE METER (BEAKER) 187 mg/dL 70-110 TESTED AT [address] (test febi=8297) [place] [address] POCT-GLUCOSE [id number] 17:24:00 Test Item Value Reference Range Comments POC-GLUCOSE METER (BEAKER) 153 mg/dL 70-110 TESTED AT [address] (test cxio=5032) [place] [address] POCT-GLUCOSE [id number] 13:20:00 Test Item Value Reference Range Comments POC-GLUCOSE METER (BEAKER) 213 mg/dL 70-110 TESTED AT [address] (test msti=3018) [place] [address] POCT-GLUCOSE [id number] 11:32:00 Test Item Value Reference Range Comments POC-GLUCOSE METER (BEAKER) 141 mg/dL 70-110 TESTED AT [address] (test fjcm=4715) [place] [address] BASIC METABOLIC [id number] 08:25:00 Test Item Value Reference Range Comments SODIUM (BEAKER) (test 137 meq/L 136-145 nvjh=277) POTASSIUM (BEAKER) (test 3.9 meq/L 3.5-5.1 aizf=419) CHLORIDE (BEAKER) (test 99 meq/L 98-107 rlyw=172) CO2 (BEAKER) (test 30 meq/L 22-29 aurl=033) BLOOD UREA NITROGEN 19 mg/dL 7-21 (BEAKER) (test ahie=819) CREATININE (BEAKER) (test 3.56 mg/dL 0.57-1.25 wlee=389) GLUCOSE RANDOM (BEAKER) 119 mg/dL 70-105 (test pfdt=059) CALCIUM (BEAKER) (test 8.7 mg/dL 8.4-10.2 ggvs=121) EGFR (BEAKER) (test 17 mL/min/1.73 sq m ESTIMATED GFR IS NOT gmqt=7115) ACCURATE CREATININE CLEARANCE IN PREDICTING GLOMERULAR FILTRATION RATE. ESTIMATED GFR IS NOT APPLICABLE FOR DIALYSIS PATIENTS. POCT-GLUCOSE [id number] 21:40:00 Test Item Value Reference Range Comments POC-GLUCOSE METER (BEAKER) 190 mg/dL 70-110 TESTED AT [address] (test ozat=0916) [place] [address] POCT-GLUCOSE [id number] 18:26:00 Test Item Value Reference Range Comments POC-GLUCOSE METER (BEAKER) 178 mg/dL 70-110 TESTED AT [address] (test efpo=7642) [place] [address] POCT-GLUCOSE [id number] 12:54:00 Test Item Value Reference Range Comments POC-GLUCOSE METER (BEAKER) 159 mg/dL 70-110 TESTED AT [address] (test dvam=5308) [place] [id number] BASIC METABOLIC [id number] 05:56:00 Test Item Value Reference Range Comments SODIUM (BEAKER) (test 136 meq/L 136-145 ilst=203) POTASSIUM (BEAKER) (test 4.3 meq/L 3.5-5.1 lpcv=634) CHLORIDE (BEAKER) (test 100 meq/L 98-107 pbzc=981) CO2 (BEAKER) (test 28 meq/L 22-29 hbwx=616) BLOOD UREA NITROGEN 37 mg/dL 7-21 (BEAKER) (test ikwa=962) CREATININE (BEAKER) (test 5.04 mg/dL 0.57-1.25 zgng=186) GLUCOSE RANDOM (BEAKER) 113 mg/dL 70-105 (test ydpp=235) CALCIUM (BEAKER) (test 8.8 mg/dL 8.4-10.2 tzdx=164) EGFR (BEAKER) (test 11 mL/min/1.73 sq m ESTIMATED GFR IS NOT mbwq=9992) ACCURATE CREATININE CLEARANCE IN PREDICTING GLOMERULAR FILTRATION RATE. ESTIMATED GFR IS NOT APPLICABLE FOR DIALYSIS PATIENTS. [id number] 05:37:00 Test Item Value Reference Range Comments MAGNESIUM (BEAKER) (test zhke=057) 2.1 mg/dL 1.6-2.6 POCT-GLUCOSE [id number] 21:49:00 Test Item Value Reference Range Comments POC-GLUCOSE METER (BEAKER) 194 mg/dL 70-110 TESTED AT [address] (test ycib=7912) [place] [address] POCT-GLUCOSE [id number] 18:02:00 Test Item Value Reference Range Comments POC-GLUCOSE METER (BEAKER) 195 mg/dL 70-110 TESTED AT [address] (test dals=0863) [place] [address] POCT-GLUCOSE [id number] 12:09:00 Test Item Value Reference Range Comments POC-GLUCOSE METER (BEAKER) 217 mg/dL 70-110 TESTED AT [address] (test oevv=0322) [place] [address] POCT-GLUCOSE [id number] 10:36:00 Test Item Value Reference Range Comments POC-GLUCOSE METER (BEAKER) 121 mg/dL 70-110 TESTED AT [address] (test hrcr=4011) [place] [address] POCT-GLUCOSE [id number] 10:36:00 Test Item Value Reference Range Comments POC-GLUCOSE METER (BEAKER) 100 mg/dL 70-110 TESTED AT [address] (test ykja=2343) [place] [address] POCT-GLUCOSE [id number] 08:27:00 Test Item Value Reference Range Comments POC-GLUCOSE METER (BEAKER) 112 mg/dL 70-110 TESTED AT [address] (test fwcr=8204) [place] [address] BASIC METABOLIC [id number] 06:18:00 Test Item Value Reference Range Comments SODIUM (BEAKER) (test 139 meq/L 136-145 ouhu=317) POTASSIUM (BEAKER) (test 4.1 meq/L 3.5-5.1 mobn=629) CHLORIDE (BEAKER) (test 104 meq/L 98-107 deit=376) CO2 (BEAKER) (test 29 meq/L 22-29 rzzt=641) BLOOD UREA NITROGEN 26 mg/dL 7-21 (BEAKER) (test wtza=261) CREATININE (BEAKER) (test 3.93 mg/dL 0.57-1.25 ljtk=284) GLUCOSE RANDOM (BEAKER) 104 mg/dL 70-105 (test sehi=102) CALCIUM (BEAKER) (test 8.5 mg/dL 8.4-10.2 ksov=314) EGFR (BEAKER) (test 15 mL/min/1.73 sq m ESTIMATED GFR IS NOT hlcm=4637) ACCURATE CREATININE CLEARANCE IN PREDICTING GLOMERULAR FILTRATION RATE. ESTIMATED GFR IS NOT APPLICABLE FOR DIALYSIS PATIENTS. [id number] 06:17:00 Test Item Value Reference Range Comments PHOSPHORUS (BEAKER) (test sqjv=755) 2.5 mg/dL 2.3-4.7 [id number] 06:17:00 Test Item Value Reference Range Comments MAGNESIUM (BEAKER) (test onzg=435) 2.0 mg/dL 1.6-2.6 CBC W/PLT COUNT & AUTO [id number] 05:48:00 Test Item Value Reference Range Comments WHITE BLOOD CELL COUNT (BEAKER) (test kotp=039) 7.0 K/ L 3.5-10.5 RED BLOOD CELL COUNT (BEAKER) (test cxif=611) 2.74 M/ L 4.63-6.08 HEMOGLOBIN (BEAKER) (test skhz=642) 9.0 GM/DL 13.7-17.5 HEMATOCRIT (BEAKER) (test fftg=769) 27.9 % 40.1-51.0 MEAN CORPUSCULAR VOLUME (BEAKER) (test ouzm=448) 101.8 fL 79.0-92.2 MEAN CORPUSCULAR HEMOGLOBIN (BEAKER) (test 32.8 pg 25.7-32.2 taqy=143) MEAN CORPUSCULAR HEMOGLOBIN CONC (BEAKER) (test 32.3 GM/DL 32.3-36.5 mnvz=893) RED CELL DISTRIBUTION WIDTH (BEAKER) (test 13.4 % 11.6-14.4 rkbj=285) PLATELET COUNT (BEAKER) (test xxbp=991) 165 K/CU MM 150-450 MEAN PLATELET VOLUME (BEAKER) (test kxcc=418) 11.5 fL 9.4-12.4 NUCLEATED RED BLOOD CELLS (BEAKER) (test 0 /100 WBC 0-0 syrn=058) NEUTROPHILS RELATIVE PERCENT (BEAKER) (test 62 % fixo=649) LYMPHOCYTES RELATIVE PERCENT (BEAKER) (test 21 % rzek=039) MONOCYTES RELATIVE PERCENT (BEAKER) (test 11 % skje=446) EOSINOPHILS RELATIVE PERCENT (BEAKER) (test 5 % fiub=207) BASOPHILS RELATIVE PERCENT (BEAKER) (test 1 % lzyh=000) NEUTROPHILS ABSOLUTE COUNT (BEAKER) (test 4.35 K/ L 1.78-5.38 nzgh=576) LYMPHOCYTES ABSOLUTE COUNT (BEAKER) (test 1.44 K/ L 1.32-3.57 esrg=168) MONOCYTES ABSOLUTE COUNT (BEAKER) (test 0.78 K/ L 0.30-0.82 cimj=403) EOSINOPHILS ABSOLUTE COUNT (BEAKER) (test 0.35 K/ L 0.04-0.54 obhm=107) BASOPHILS ABSOLUTE COUNT (BEAKER) (test 0.07 K/ L 0.01-0.08 daiu=486) IMMATURE GRANULOCYTES-RELATIVE PERCENT (BEAKER) 1 % 0-1 (test pwdy=9990) POCT-GLUCOSE [id number] 21:14:00 Test Item Value Reference Range Comments POC-GLUCOSE METER (BEAKER) 188 mg/dL 70-110 TESTED AT [address] (test ufrn=5939) [place] [id number] POCT-GLUCOSE [id number] 17:16:00 Test Item Value Reference Range Comments POC-GLUCOSE METER (BEAKER) 199 mg/dL 70-110 TESTED AT [address] (test qbny=8858) [facility] [address] POCT-GLUCOSE [id number] 12:41:00 Test Item Value Reference Range Comments POC-GLUCOSE METER (BEAKER) 136 mg/dL 70-110 TESTED AT [address] (test tjwt=0134) [facility] [address] CALCIUM, [id number] 08:02:00 Test Item Value Reference Range Comments CALCIUM IONIZED (BEAKER) (test szkx=036) 1.08 mmol/L 1.12-1.27 PH, BLOOD (BEAKER) (test hqcr=6281) 7.42 COMPREHENSIVE METABOLIC [id number] 07:00:00 Test Item Value Reference Range Comments TOTAL PROTEIN (BEAKER) 6.5 gm/dL 6.0-8.3 (test twie=076) ALBUMIN (BEAKER) (test 2.4 g/dL 3.5-5.0 ttzl=0576) ALKALINE PHOSPHATASE 78 U/L 40-150 (BEAKER) (test hxta=273) BILIRUBIN TOTAL (BEAKER) 0.4 mg/dL 0.2-1.2 (test lzkm=434) SODIUM (BEAKER) (test 129 meq/L 136-145 hoej=075) POTASSIUM (BEAKER) (test 4.9 meq/L 3.5-5.1 wtga=399) CHLORIDE (BEAKER) (test 93 meq/L 98-107 nexn=909) CO2 (BEAKER) (test 26 meq/L 22-29 xqwb=455) BLOOD UREA NITROGEN 50 mg/dL 7-21 (BEAKER) (test zckh=993) CREATININE (BEAKER) (test 6.18 mg/dL 0.57-1.25 ceaa=532) GLUCOSE RANDOM (BEAKER) 104 mg/dL 70-105 (test zycf=165) CALCIUM (BEAKER) (test 8.9 mg/dL 8.4-10.2 ffuh=234) AST (SGOT) (BEAKER) (test 22 U/L 5-34 ttqz=179) ALT (SGPT) (BEAKER) (test < U/L 6-55 govs=331) EGFR (BEAKER) (test 9 mL/min/1.73 sq m ESTIMATED GFR IS NOT vbks=3472) ACCURATE CREATININE CLEARANCE IN PREDICTING GLOMERULAR FILTRATION RATE. ESTIMATED GFR IS NOT APPLICABLE FOR DIALYSIS PATIENTS. [id number] 06:55:00 Test Item Value Reference Range Comments PHOSPHORUS (BEAKER) (test zkdh=242) 4.1 mg/dL 2.3-4.7 [id number] 06:55:00 Test Item Value Reference Range Comments MAGNESIUM (BEAKER) (test nuau=129) 2.2 mg/dL 1.6-2.6 CBC W/PLT COUNT & AUTO [id number] 06:21:00 Test Item Value Reference Range Comments WHITE BLOOD CELL COUNT (BEAKER) (test gxnn=075) 7.9 K/ L 3.5-10.5 RED BLOOD CELL COUNT (BEAKER) (test rjqh=631) 3.13 M/ L 4.63-6.08 HEMOGLOBIN (BEAKER) (test hknb=019) 10.3 GM/DL 13.7-17.5 HEMATOCRIT (BEAKER) (test wzav=598) 31.0 % 40.1-51.0 MEAN CORPUSCULAR VOLUME (BEAKER) (test lcsa=256) 99.0 fL 79.0-92.2 MEAN CORPUSCULAR HEMOGLOBIN (BEAKER) (test 32.9 pg 25.7-32.2 tndk=144) MEAN CORPUSCULAR HEMOGLOBIN CONC (BEAKER) (test 33.2 GM/DL 32.3-36.5 ubbd=838) RED CELL DISTRIBUTION WIDTH (BEAKER) (test 13.2 % 11.6-14.4 qbkl=812) PLATELET COUNT (BEAKER) (test vopk=091) 181 K/CU MM 150-450 MEAN PLATELET VOLUME (BEAKER) (test sxqu=033) 11.1 fL 9.4-12.4 NUCLEATED RED BLOOD CELLS (BEAKER) (test 0 /100 WBC 0-0 zcsj=993) NEUTROPHILS RELATIVE PERCENT (BEAKER) (test 69 % guor=419) LYMPHOCYTES RELATIVE PERCENT (BEAKER) (test 15 % rwxv=364) MONOCYTES RELATIVE PERCENT (BEAKER) (test 10 % ueyy=994) EOSINOPHILS RELATIVE PERCENT (BEAKER) (test 5 % eukv=222) BASOPHILS RELATIVE PERCENT (BEAKER) (test 1 % gmdj=396) NEUTROPHILS ABSOLUTE COUNT (BEAKER) (test 5.39 K/ L 1.78-5.38 hvdc=419) LYMPHOCYTES ABSOLUTE COUNT (BEAKER) (test 1.20 K/ L 1.32-3.57 mtnv=327) MONOCYTES ABSOLUTE COUNT (BEAKER) (test 0.75 K/ L 0.30-0.82 bvej=579) EOSINOPHILS ABSOLUTE COUNT (BEAKER) (test 0.42 K/ L 0.04-0.54 aaiu=767) BASOPHILS ABSOLUTE COUNT (BEAKER) (test 0.06 K/ L 0.01-0.08 tkax=902) IMMATURE GRANULOCYTES-RELATIVE PERCENT (BEAKER) 1 % 0-1 (test ykos=3348) POCT-GLUCOSE [id number] 21:04:00 Test Item Value Reference Range Comments POC-GLUCOSE METER (BEAKER) 163 mg/dL 70-110 TESTED AT [address] (test csol=8819) [facility] [address] POCT-GLUCOSE [id number] 17:12:00 Test Item Value Reference Range Comments POC-GLUCOSE METER (BEAKER) 121 mg/dL 70-110 TESTED AT [address] (test ghhn=6448) [facility] [address] POCT-GLUCOSE [id number] 12:56:00 Test Item Value Reference Range Comments POC-GLUCOSE METER (BEAKER) 144 mg/dL 70-110 TESTED AT [address] (test lzml=1449) [facility] [address] POCT-GLUCOSE [id number] 09:36:00 Test Item Value Reference Range Comments POC-GLUCOSE METER (BEAKER) 159 mg/dL 70-110 TESTED AT [address] (test jtoa=3753) [facility] [address] BASIC METABOLIC [id number] 08:48:00 Test Item Value Reference Range Comments SODIUM (BEAKER) (test 130 meq/L 136-145 akkx=870) POTASSIUM (BEAKER) (test 4.5 meq/L 3.5-5.1 yrcj=682) CHLORIDE (BEAKER) (test 93 meq/L 98-107 jrtm=265) CO2 (BEAKER) (test 25 meq/L 22-29 clun=279) BLOOD UREA NITROGEN 40 mg/dL 7-21 (BEAKER) (test rxrp=793) CREATININE (BEAKER) (test 5.37 mg/dL 0.57-1.25 yiae=973) GLUCOSE RANDOM (BEAKER) 114 mg/dL 70-105 (test mhdf=811) CALCIUM (BEAKER) (test 8.8 mg/dL 8.4-10.2 bxde=354) EGFR (BEAKER) (test 10 mL/min/1.73 sq m ESTIMATED GFR IS NOT najb=7843) ACCURATE CREATININE CLEARANCE IN PREDICTING GLOMERULAR FILTRATION RATE. ESTIMATED GFR IS NOT APPLICABLE FOR DIALYSIS PATIENTS. [id number] 08:45:00 Test Item Value Reference Range Comments PHOSPHORUS (BEAKER) (test ppio=584) 3.8 mg/dL 2.3-4.7 [id number] 08:45:00 Test Item Value Reference Range Comments MAGNESIUM (BEAKER) (test rwel=414) 1.9 mg/dL 1.6-2.6 CBC W/PLT COUNT & AUTO [id number] 05:35:00 Test Item Value Reference Range Comments WHITE BLOOD CELL COUNT (BEAKER) (test nnlv=164) 7.5 K/ L 3.5-10.5 RED BLOOD CELL COUNT (BEAKER) (test elxx=769) 3.03 M/ L 4.63-6.08 HEMOGLOBIN (BEAKER) (test kvxp=473) 10.1 GM/DL 13.7-17.5 HEMATOCRIT (BEAKER) (test hspe=663) 30.2 % 40.1-51.0 MEAN CORPUSCULAR VOLUME (BEAKER) (test qlim=941) 99.7 fL 79.0-92.2 MEAN CORPUSCULAR HEMOGLOBIN (BEAKER) (test 33.3 pg 25.7-32.2 aifp=266) MEAN CORPUSCULAR HEMOGLOBIN CONC (BEAKER) (test 33.4 GM/DL 32.3-36.5 fzzz=521) RED CELL DISTRIBUTION WIDTH (BEAKER) (test 13.1 % 11.6-14.4 gaxi=131) PLATELET COUNT (BEAKER) (test hkhp=298) 180 K/CU MM 150-450 MEAN PLATELET VOLUME (BEAKER) (test njnj=085) 11.4 fL 9.4-12.4 NUCLEATED RED BLOOD CELLS (BEAKER) (test 0 /100 WBC 0-0 wfgl=489) NEUTROPHILS RELATIVE PERCENT (BEAKER) (test 68 % qrhk=287) LYMPHOCYTES RELATIVE PERCENT (BEAKER) (test 16 % bfbz=749) MONOCYTES RELATIVE PERCENT (BEAKER) (test 11 % quta=370) EOSINOPHILS RELATIVE PERCENT (BEAKER) (test 5 % smey=536) BASOPHILS RELATIVE PERCENT (BEAKER) (test 1 % gthn=417) NEUTROPHILS ABSOLUTE COUNT (BEAKER) (test 5.06 K/ L 1.78-5.38 lshl=664) LYMPHOCYTES ABSOLUTE COUNT (BEAKER) (test 1.16 K/ L 1.32-3.57 caco=632) MONOCYTES ABSOLUTE COUNT (BEAKER) (test 0.82 K/ L 0.30-0.82 smsm=038) EOSINOPHILS ABSOLUTE COUNT (BEAKER) (test 0.37 K/ L 0.04-0.54 vpou=820) BASOPHILS ABSOLUTE COUNT (BEAKER) (test 0.05 K/ L 0.01-0.08 izrn=033) IMMATURE GRANULOCYTES-RELATIVE PERCENT (BEAKER) 1 % 0-1 (test orri=8916) POCT-GLUCOSE [id number] 05:35:00 Test Item Value Reference Range Comments POC-GLUCOSE METER (BEAKER) 140 mg/dL 70-110 TESTED AT [address] (test esmd=9649) [place] [address] POCT-GLUCOSE [id number] 21:25:00 Test Item Value Reference Range Comments POC-GLUCOSE METER (BEAKER) 154 mg/dL 70-110 TESTED AT [address] (test laev=2391) [place] [address] POCT-GLUCOSE [id number] 17:24:00 Test Item Value Reference Range Comments POC-GLUCOSE METER (BEAKER) 167 mg/dL 70-110 TESTED AT [address] (test mqju=0767) [place] [address] POCT-GLUCOSE [id number] 14:06:00 Test Item Value Reference Range Comments POC-GLUCOSE METER (BEAKER) 179 mg/dL 70-110 TESTED AT [address] (test kfua=3302) [place] [address] POCT-GLUCOSE [id number] 11:57:00 Test Item Value Reference Range Comments POC-GLUCOSE METER (BEAKER) 186 mg/dL 70-110 TESTED AT [address] (test dyqd=9131) [place] [address] [id number] 09:09:00 Test Item Value Reference Range Comments FERRITIN (BEAKER) (test evcn=994) 683 ng/mL 5-275 POCT-GLUCOSE [id number] 09:08:00 Test Item Value Reference Range Comments POC-GLUCOSE METER (BEAKER) 129 mg/dL 70-110 TESTED AT [address] (test alww=3904) [place] [address] POCT-GLUCOSE [id number] 08:19:00 Test Item Value Reference Range Comments POC-GLUCOSE METER (BEAKER) 70 mg/dL 70-110 TESTED AT [address] (test kgqk=1396) [place] [address] POCT-GLUCOSE [id number] 07:50:00 Test Item Value Reference Range Comments POC-GLUCOSE METER (BEAKER) 61 mg/dL 70-110 Notified TAMERA CISNEROS/TESTED AT [facility] (test hgqw=7621) [address] [facility] [address] IRON, TIBC, % SAT. (WITHOUT FERRITIN)2018-08-24 07:14:00 Test Item Value Reference Range Comments IRON (BEAKER) (test edsu=154) 51.0 ug/dL 40.0-160.0 TOTAL IRON BINDING CAPACITY (BEAKER) (test 149 ug/dL 250-450 whrd=514) IRON % SATURATION (2) (BEAKER) (test nhvr=2341) 34 % 20-55 BASIC METABOLIC [id number] 06:20:00 Test Item Value Reference Range Comments SODIUM (BEAKER) (test 134 meq/L 136-145 apsm=325) POTASSIUM (BEAKER) (test 4.1 meq/L 3.5-5.1 urqj=065) CHLORIDE (BEAKER) (test 97 meq/L 98-107 ethi=247) CO2 (BEAKER) (test 27 meq/L 22-29 abkn=603) BLOOD UREA NITROGEN 26 mg/dL 7-21 (BEAKER) (test feap=236) CREATININE (BEAKER) (test 3.93 mg/dL 0.57-1.25 pdyc=283) GLUCOSE RANDOM (BEAKER) 66 mg/dL 70-105 (test okji=072) CALCIUM (BEAKER) (test 8.7 mg/dL 8.4-10.2 cmkk=293) EGFR (BEAKER) (test 15 mL/min/1.73 sq m ESTIMATED GFR IS NOT xwux=0402) ACCURATE CREATININE CLEARANCE IN PREDICTING GLOMERULAR FILTRATION RATE. ESTIMATED GFR IS NOT APPLICABLE FOR DIALYSIS PATIENTS. [id number] 06:15:00 Test Item Value Reference Range Comments PHOSPHORUS (BEAKER) (test gzel=709) 3.3 mg/dL 2.3-4.7 [id number] 06:15:00 Test Item Value Reference Range Comments MAGNESIUM (BEAKER) (test oepy=350) 1.9 mg/dL 1.6-2.6 RETICULOCYTE [id number] 05:23:00 Test Item Value Reference Range Comments RETICULOCYTE COUNT PCT (BEAKER) (test alys=120) 2.0 % 0.5-1.8 CBC W/PLT COUNT & AUTO [id number] 05:23:00 Test Item Value Reference Range Comments WHITE BLOOD CELL COUNT (BEAKER) (test ykjt=562) 7.9 K/ L 3.5-10.5 RED BLOOD CELL COUNT (BEAKER) (test voda=442) 3.01 M/ L 4.63-6.08 HEMOGLOBIN (BEAKER) (test mpsv=414) 10.2 GM/DL 13.7-17.5 HEMATOCRIT (BEAKER) (test kwna=135) 30.3 % 40.1-51.0 MEAN CORPUSCULAR VOLUME (BEAKER) (test qupn=282) 100.7 fL 79.0-92.2 MEAN CORPUSCULAR HEMOGLOBIN (BEAKER) (test 33.9 pg 25.7-32.2 akwq=924) MEAN CORPUSCULAR HEMOGLOBIN CONC (BEAKER) (test 33.7 GM/DL 32.3-36.5 nomn=168) RED CELL DISTRIBUTION WIDTH (BEAKER) (test 13.4 % 11.6-14.4 mkwz=644) PLATELET COUNT (BEAKER) (test uyzi=952) 184 K/CU MM 150-450 MEAN PLATELET VOLUME (BEAKER) (test ctog=478) 11.2 fL 9.4-12.4 NUCLEATED RED BLOOD CELLS (BEAKER) (test 0 /100 WBC 0-0 xpvz=694) NEUTROPHILS RELATIVE PERCENT (BEAKER) (test 67 % tuua=271) LYMPHOCYTES RELATIVE PERCENT (BEAKER) (test 16 % fnpq=417) MONOCYTES RELATIVE PERCENT (BEAKER) (test 12 % dmqk=153) EOSINOPHILS RELATIVE PERCENT (BEAKER) (test 4 % tyhd=764) BASOPHILS RELATIVE PERCENT (BEAKER) (test 1 % ewns=483) NEUTROPHILS ABSOLUTE COUNT (BEAKER) (test 5.28 K/ L 1.78-5.38 ywle=655) LYMPHOCYTES ABSOLUTE COUNT (BEAKER) (test 1.27 K/ L 1.32-3.57 qtvq=437) MONOCYTES ABSOLUTE COUNT (BEAKER) (test 0.98 K/ L 0.30-0.82 jnyi=471) EOSINOPHILS ABSOLUTE COUNT (BEAKER) (test 0.29 K/ L 0.04-0.54 jtor=274) BASOPHILS ABSOLUTE COUNT (BEAKER) (test 0.05 K/ L 0.01-0.08 shcg=459) IMMATURE GRANULOCYTES-RELATIVE PERCENT (BEAKER) 0 % 0-1 (test gtkr=1431) POCT-GLUCOSE [id number] 21:10:00 Test Item Value Reference Range Comments POC-GLUCOSE METER (BEAKER) 142 mg/dL 70-110 TESTED AT [address] (test vkbl=6189) [facility] [address] POCT-GLUCOSE [id number] 17:40:00 Test Item Value Reference Range Comments POC-GLUCOSE METER (BEAKER) 162 mg/dL 70-110 TESTED AT [address] (test kfwq=2518) [place] [id number] POCT-GLUCOSE [id number] 12:21:00 Test Item Value Reference Range Comments POC-GLUCOSE METER (BEAKER) 137 mg/dL 70-110 TESTED AT [address] (test jrun=5674) [facility] [address] COMPREHENSIVE METABOLIC [id number] 06:38:00 Test Item Value Reference Range Comments TOTAL PROTEIN (BEAKER) 6.2 gm/dL 6.0-8.3 (test pwkp=258) ALBUMIN (BEAKER) (test 2.3 g/dL 3.5-5.0 yiyz=5993) ALKALINE PHOSPHATASE 70 U/L 40-150 (BEAKER) (test gisl=437) BILIRUBIN TOTAL (BEAKER) 0.4 mg/dL 0.2-1.2 (test kltl=959) SODIUM (BEAKER) (test 133 meq/L 136-145 sxkb=489) POTASSIUM (BEAKER) (test 4.6 meq/L 3.5-5.1 nxwn=328) CHLORIDE (BEAKER) (test 98 meq/L 98-107 dqbe=154) CO2 (BEAKER) (test 25 meq/L 22-29 mfwd=860) BLOOD UREA NITROGEN 46 mg/dL 7-21 (BEAKER) (test llmu=787) CREATININE (BEAKER) (test 6.64 mg/dL 0.57-1.25 yjix=801) GLUCOSE RANDOM (BEAKER) 51 mg/dL 70-105 (test irdy=991) CALCIUM (BEAKER) (test 8.6 mg/dL 8.4-10.2 enqh=708) AST (SGOT) (BEAKER) (test 21 U/L 5-34 duwk=114) ALT (SGPT) (BEAKER) (test < U/L 6-55 aysv=620) EGFR (BEAKER) (test 8 mL/min/1.73 sq m ESTIMATED GFR IS NOT vpbp=2986) ACCURATE CREATININE CLEARANCE IN PREDICTING GLOMERULAR FILTRATION RATE. ESTIMATED GFR IS NOT APPLICABLE FOR DIALYSIS PATIENTS. [id number] 06:34:00 Test Item Value Reference Range Comments PHOSPHORUS (BEAKER) (test kjru=374) 4.8 mg/dL 2.3-4.7 [id number] 06:34:00 Test Item Value Reference Range Comments MAGNESIUM (BEAKER) (test uerx=291) 2.1 mg/dL 1.6-2.6 CBC W/PLT COUNT & AUTO [id number] 05:21:00 Test Item Value Reference Range Comments WHITE BLOOD CELL COUNT (BEAKER) (test ohvg=629) 8.2 K/ L 3.5-10.5 RED BLOOD CELL COUNT (BEAKER) (test oqzp=970) 3.03 M/ L 4.63-6.08 HEMOGLOBIN (BEAKER) (test vbdw=936) 9.9 GM/DL 13.7-17.5 HEMATOCRIT (BEAKER) (test ectz=775) 30.1 % 40.1-51.0 MEAN CORPUSCULAR VOLUME (BEAKER) (test recq=999) 99.3 fL 79.0-92.2 MEAN CORPUSCULAR HEMOGLOBIN (BEAKER) (test 32.7 pg 25.7-32.2 ccxj=852) MEAN CORPUSCULAR HEMOGLOBIN CONC (BEAKER) (test 32.9 GM/DL 32.3-36.5 ceqs=369) RED CELL DISTRIBUTION WIDTH (BEAKER) (test 13.5 % 11.6-14.4 tkdj=177) PLATELET COUNT (BEAKER) (test vxvr=176) 192 K/CU MM 150-450 MEAN PLATELET VOLUME (BEAKER) (test ygdz=136) 11.1 fL 9.4-12.4 NUCLEATED RED BLOOD CELLS (BEAKER) (test 0 /100 WBC 0-0 wppj=626) NEUTROPHILS RELATIVE PERCENT (BEAKER) (test 69 % xctq=921) LYMPHOCYTES RELATIVE PERCENT (BEAKER) (test 15 % vkrt=254) MONOCYTES RELATIVE PERCENT (BEAKER) (test 9 % qczu=607) EOSINOPHILS RELATIVE PERCENT (BEAKER) (test 5 % vibx=320) BASOPHILS RELATIVE PERCENT (BEAKER) (test 1 % znso=735) NEUTROPHILS ABSOLUTE COUNT (BEAKER) (test 5.65 K/ L 1.78-5.38 xitg=199) LYMPHOCYTES ABSOLUTE COUNT (BEAKER) (test 1.24 K/ L 1.32-3.57 ncnk=343) MONOCYTES ABSOLUTE COUNT (BEAKER) (test 0.74 K/ L 0.30-0.82 szok=724) EOSINOPHILS ABSOLUTE COUNT (BEAKER) (test 0.44 K/ L 0.04-0.54 oxmz=143) BASOPHILS ABSOLUTE COUNT (BEAKER) (test 0.05 K/ L 0.01-0.08 dexs=492) IMMATURE GRANULOCYTES-RELATIVE PERCENT (BEAKER) 0 % 0-1 (test bjtn=1593) POCT-GLUCOSE [id number] 21:00:00 Test Item Value Reference Range Comments POC-GLUCOSE METER (BEAKER) 103 mg/dL 70-110 TESTED AT [address] (test pfof=0161) [facility] [address] RAD, CHEST, 1 VIEW, NON [id number] 19:51:00Reason for exam:->CoughShould this be performed at [...] [place] Verified Date/Time: 08/22/2018 19:51:52 Reading Location: [facility] [id number] Consult Reading Room [id number] 19:16:00 Test Item Value Reference Range Comments PHOSPHORUS (BEAKER) (test ljro=002) 4.4 mg/dL 2.3-4.7 Send if you can add on from earlier AM labsPOCT-GLUCOSE [id number] 17:53:00 Test Item Value Reference Range Comments POC-GLUCOSE METER (BEAKER) 134 mg/dL 70-110 TESTED AT [address] (test gogq=2825) [place] [address] HEPATITIS B SURFACE [id number] 13:45:00 Test Item Value Reference Range Comments HEPATITIS B SURFACE ANTIGEN (2) (BEAKER) (test Nonreactive Nonreactive ercu=4636) POCT-GLUCOSE [id number] 10:34:00 Test Item Value Reference Range Comments POC-GLUCOSE METER (BEAKER) 74 mg/dL 70-110 TESTED AT [address] (test vsfj=4660) [place] [address] POCT-GLUCOSE [id number] 07:42:00 Test Item Value Reference Range Comments POC-GLUCOSE METER (BEAKER) 118 mg/dL 70-110 TESTED AT [address] (test opnh=6306) [place] [id number] POCT-GLUCOSE [id number] 06:39:00 Test Item Value Reference Range Comments POC-GLUCOSE METER (BEAKER) 57 mg/dL 70-110 Notified TAMERA CISNEROS/TESTED AT [facility] (test akll=8858) [address] [place], [place] [id number] BASIC METABOLIC [id number] 04:55:00 Test Item Value Reference Range Comments SODIUM (BEAKER) (test 136 meq/L 136-145 kdel=818) POTASSIUM (BEAKER) (test 4.1 meq/L 3.5-5.1 ipoi=159) CHLORIDE (BEAKER) (test 98 meq/L 98-107 pzzw=755) CO2 (BEAKER) (test 29 meq/L 22-29 xxcr=062) BLOOD UREA NITROGEN 33 mg/dL 7-21 (BEAKER) (test crrr=407) CREATININE (BEAKER) (test 5.15 mg/dL 0.57-1.25 wxld=162) GLUCOSE RANDOM (BEAKER) 48 mg/dL 70-105 (test czmf=397) CALCIUM (BEAKER) (test 8.8 mg/dL 8.4-10.2 wdgg=958) EGFR (BEAKER) (test 11 mL/min/1.73 sq m ESTIMATED GFR IS NOT zxbe=1951) ACCURATE CREATININE CLEARANCE IN PREDICTING GLOMERULAR FILTRATION RATE. ESTIMATED GFR IS NOT APPLICABLE FOR DIALYSIS PATIENTS. [id number] 04:52:00 Test Item Value Reference Range Comments MAGNESIUM (BEAKER) (test yhdp=338) 2.1 mg/dL 1.6-2.6 [id number] 04:47:00 Test Item Value Reference Range Comments PROTIME (BEAKER) (test zuka=755) 16.0 seconds 11.7-14.7 INR (BEAKER) (test foxh=671) 1.3 <=5.9 PARTIAL THROMBOPLASTIN TIME (BEAKER) (test 51.1 seconds 22.5-36.0 ebry=755) RECOMMENDED COUMADIN/WARFARIN INR THERAPY RANGESSTANDARD DOSE: 2.0 - 3.0 Includes: PROPHYLAXIS forvenous thrombosis, systemic embolization; TREATMENT for venous thrombosis and/or pulmonary embolus.HIGH RISK: Target INR is 2.5-3.5 for patients with mechanical heart valves.CBC W/PLT COUNT & AUTO [id number] 04:36:00 Test Item Value Reference Range Comments WHITE BLOOD CELL COUNT (BEAKER) (test igbr=481) 9.1 K/ L 3.5-10.5 RED BLOOD CELL COUNT (BEAKER) (test nlyd=855) 3.12 M/ L 4.63-6.08 HEMOGLOBIN (BEAKER) (test lydt=295) 10.2 GM/DL 13.7-17.5 HEMATOCRIT (BEAKER) (test rcxo=945) 31.9 % 40.1-51.0 MEAN CORPUSCULAR VOLUME (BEAKER) (test vkid=193) 102.2 fL 79.0-92.2 MEAN CORPUSCULAR HEMOGLOBIN (BEAKER) (test 32.7 pg 25.7-32.2 azhk=574) MEAN CORPUSCULAR HEMOGLOBIN CONC (BEAKER) (test 32.0 GM/DL 32.3-36.5 xbpj=671) RED CELL DISTRIBUTION WIDTH (BEAKER) (test 14.0 % 11.6-14.4 kxdp=466) PLATELET COUNT (BEAKER) (test yjla=175) 194 K/CU MM 150-450 MEAN PLATELET VOLUME (BEAKER) (test djse=073) 11.2 fL 9.4-12.4 NUCLEATED RED BLOOD CELLS (BEAKER) (test 0 /100 WBC 0-0 rvvv=925) NEUTROPHILS RELATIVE PERCENT (BEAKER) (test 73 % wtvy=219) LYMPHOCYTES RELATIVE PERCENT (BEAKER) (test 11 % pyeu=035) MONOCYTES RELATIVE PERCENT (BEAKER) (test 10 % xpzf=851) EOSINOPHILS RELATIVE PERCENT (BEAKER) (test 5 % yrvn=703) BASOPHILS RELATIVE PERCENT (BEAKER) (test 0 % tnfh=130) NEUTROPHILS ABSOLUTE COUNT (BEAKER) (test 6.63 K/ L 1.78-5.38 lqbf=845) LYMPHOCYTES ABSOLUTE COUNT (BEAKER) (test 1.04 K/ L 1.32-3.57 kdwo=971) MONOCYTES ABSOLUTE COUNT (BEAKER) (test 0.92 K/ L 0.30-0.82 niup=446) EOSINOPHILS ABSOLUTE COUNT (BEAKER) (test 0.44 K/ L 0.04-0.54 lavp=375) BASOPHILS ABSOLUTE COUNT (BEAKER) (test 0.04 K/ L 0.01-0.08 lhao=588) IMMATURE GRANULOCYTES-RELATIVE PERCENT (BEAKER) 0 % 0-1 (test eldg=5736) ANG, THROMBECTOMY, A-V [id number] 14:11:00If unable then place tunneled dialysis catheterReason [...] [place]ada Verified Date/Time: 09/18/2017 14:11:58 Reading Location: [facility] P048 Angio Body Reading Room Electronically signed by: MARIAH CALZADA M.D. on 2017 02:11 PMPOCT-GLUCOSE [id number] 13:43:00 Test Item Value Reference Range Comments POC-GLUCOSE METER (Gucash) 76 mg/dL 70-110 TESTED AT [facility] [address] [facility] [facility] (test plse=3602) [facility] [address] HEMOGLOBIN [id number] 08:02:00 Test Item Value Reference Range Comments HEMOGLOBIN A1C (WebcomAKER) (test vqvq=300) 7.0 % 4.3-6.1 BASIC METABOLIC [id number] 07:34:00 Test Item Value Reference Range Comments SODIUM (BEAKER) (test 140 meq/L 136-145 jjcd=308) POTASSIUM (BEAKER) (test 5.0 meq/L 3.5-5.1 ydov=220) CHLORIDE (BEAKER) (test 101 meq/L 98-107 isyj=452) CO2 (BEAKER) (test 22 meq/L 22-29 bffk=857) BLOOD UREA NITROGEN 87 mg/dL 7-21 (BEAKER) (test wkiw=801) CREATININE (BEAKER) (test 10.99 mg/dL 0.57-1.25 kppm=800) GLUCOSE RANDOM (BEAKER) 87 mg/dL 70-105 (test gptl=145) CALCIUM (BEAKER) (test 7.8 mg/dL 8.4-10.2 rjda=043) EGFR (BEAKER) (test 5 mL/min/1.73 sq m ESTIMATED GFR IS NOT meqc=6808) ACCURATE CREATININE CLEARANCE IN PREDICTING GLOMERULAR FILTRATION RATE. ESTIMATED GFR IS NOT APPLICABLE FOR DIALYSIS PATIENTS. [id number] 07:28:00 Test Item Value Reference Range Comments PHOSPHORUS (BEAKER) (test gwnr=392) 6.0 mg/dL 2.3-4.7 [id number] 07:28:00 Test Item Value Reference Range Comments MAGNESIUM (BEAKER) (test qwad=989) 2.3 mg/dL 1.6-2.6 CALCIUM, [id number] 07:18:00 Test Item Value Reference Range Comments CALCIUM IONIZED (BEAKER) (test vvkh=483) 1.00 mmol/L 1.12-1.27 PH, BLOOD (BEAKER) (test qwvu=7766) 7.27 HEPATITIS B SURFACE [id number] 07:11:00 Test Item Value Reference Range Comments HEPATITIS B SURFACE ANTIGEN (2) (BEAKER) (test Nonreactive Nonreactive htdc=4790) Pls add to specimen drawn earlier.POCT-GLUCOSE [id number] 07:06:00 Test Item Value Reference Range Comments POC-GLUCOSE METER (BEAKER) 118 mg/dL 70-110 TESTED AT [facility] [address] [facility] [facility] (test fedu=3165) [facility] [address] PROTHROMBIN [id number] 06:14:00 Test Item Value Reference Range Comments PROTIME (BEAKER) (test knpe=143) 14.2 seconds 11.7-14.7 INR (BEAKER) (test vumd=607) 1.1 <=5.9 RECOMMENDED COUMADIN/WARFARIN INR THERAPY RANGESSTANDARD DOSE: 2.0 - 3.0 Includes: PROPHYLAXIS forvenous thrombosis, systemic embolization; TREATMENT for venous thrombosis and/or pulmonary embolus.HIGH RISK: Target INR is 2.5-3.5 for patients with mechanical heart valves.CBC W/PLT COUNT & AUTO [id number] 06:04:00 Test Item Value Reference Range Comments WHITE BLOOD CELL COUNT (BEAKER) (test vfsf=256) 5.7 K/ L 3.5-10.5 RED BLOOD CELL COUNT (BEAKER) (test xqoe=729) 3.78 M/ L 4.63-6.08 HEMOGLOBIN (BEAKER) (test afqb=797) 13.0 GM/DL 13.7-17.5 HEMATOCRIT (BEAKER) (test noxw=626) 39.4 % 40.1-51.0 MEAN CORPUSCULAR VOLUME (BEAKER) (test lppn=663) 104.2 fL 79.0-92.2 MEAN CORPUSCULAR HEMOGLOBIN (BEAKER) (test 34.4 pg 25.7-32.2 kqaz=411) MEAN CORPUSCULAR HEMOGLOBIN CONC (BEAKER) (test 33.0 GM/DL 32.3-36.5 ozif=893) RED CELL DISTRIBUTION WIDTH (BEAKER) (test 14.1 % 11.6-14.4 zcuf=021) PLATELET COUNT (BEAKER) (test ocky=925) 82 K/CU MM 150-450 MEAN PLATELET VOLUME (BEAKER) (test zbya=126) 13.3 fL 9.4-12.4 NUCLEATED RED BLOOD CELLS (BEAKER) (test 0 /100 WBC 0-0 vwta=655) NEUTROPHILS RELATIVE PERCENT (BEAKER) (test 62 % zbex=390) LYMPHOCYTES RELATIVE PERCENT (BEAKER) (test 23 % wdvc=773) MONOCYTES RELATIVE PERCENT (BEAKER) (test 11 % cymj=188) EOSINOPHILS RELATIVE PERCENT (BEAKER) (test 4 % qzwu=199) BASOPHILS RELATIVE PERCENT (BEAKER) (test 1 % nfzu=467) NEUTROPHILS ABSOLUTE COUNT (BEAKER) (test 3.53 K/ L 1.78-5.38 kxio=365) LYMPHOCYTES ABSOLUTE COUNT (BEAKER) (test 1.30 K/ L 1.32-3.57 zzjy=056) MONOCYTES ABSOLUTE COUNT (BEAKER) (test ecbu=517) 0.62 K/ L 0.30-0.82 EOSINOPHILS ABSOLUTE COUNT (BEAKER) (test 0.22 K/ L 0.04-0.54 crgs=419) BASOPHILS ABSOLUTE COUNT (BEAKER) (test bhpm=393) 0.03 K/ L 0.01-0.08 IMMATURE GRANULOCYTES-RELATIVE PERCENT (BEAKER) 1 % 0-1 (test kpar=6590) POCT-GLUCOSE [id number] 22:23:00 Test Item Value Reference Range Comments POC-GLUCOSE METER (BEAKER) 185 mg/dL 70-110 TESTED AT [address] (test yflp=2413) [place] [address] POCT-GLUCOSE [id number] 21:27:00 Test Item Value Reference Range Comments POC-GLUCOSE METER (BEAKER) 198 mg/dL 70-110 TESTED AT [address] (test pbmr=7331) [place] [address] POCT-GLUCOSE [id number] 17:43:00 Test Item Value Reference Range Comments POC-GLUCOSE METER (BEAKER) 164 mg/dL 70-110 TESTED AT [address] (test ldaj=4697) [place] [address] HEPATITIS B SURFACE [id number] 15:14:00 Test Item Value Reference Range Comments HEPATITIS B SURFACE ANTIGEN (2) (BEAKER) (test Nonreactive Nonreactive xnmk=8363) Pls add to specimen drawn earlier.BASIC METABOLIC [id number] 13:34:00 Test Item Value Reference Range Comments SODIUM (BEAKER) (test 140 meq/L 136-145 ajkr=428) POTASSIUM (BEAKER) (test 5.4 meq/L 3.5-5.1 bjju=624) CHLORIDE (BEAKER) (test 101 meq/L 98-107 coix=294) CO2 (BEAKER) (test 19 meq/L 22-29 hiic=217) BLOOD UREA NITROGEN 123 mg/dL 7-21 (BEAKER) (test bzbc=782) CREATININE (BEAKER) (test 12.96 mg/dL 0.57-1.25 zdsi=956) GLUCOSE RANDOM (BEAKER) 79 mg/dL 70-105 (test pbcn=325) CALCIUM (BEAKER) (test 7.9 mg/dL 8.4-10.2 pyaq=185) EGFR (BEAKER) (test 4 mL/min/1.73 sq m ESTIMATED GFR IS NOT wgsv=6972) ACCURATE CREATININE CLEARANCE IN PREDICTING GLOMERULAR FILTRATION RATE. ESTIMATED GFR IS NOT APPLICABLE FOR DIALYSIS PATIENTS. [id number] 13:24:00 Test Item Value Reference Range Comments MAGNESIUM (BEAKER) (test dcfp=820) 2.3 mg/dL 1.6-2.6 [id number] 13:24:00 Test Item Value Reference Range Comments PHOSPHORUS (BEAKER) (test basx=419) 6.2 mg/dL 2.3-4.7 POCT-GLUCOSE [id number] 12:20:00 Test Item Value Reference Range Comments POC-GLUCOSE METER (BEAKER) 84 mg/dL 70-110 TESTED AT [address] (test vunr=4875) [facility] [address] ANG, NON-TUNNELED CATH >5 Y.O. [id number] 11:23:00Reason for exam:-> please declot the AV fistula, if unable to do that he needs catheter exchangeFINAL REPORT Nontunneled dialysis catheter insertion, 09/16/2017. History: Left upper extremity AV fistula thrombosed. Modality: Fluoroscopy and sonography. Sedation: None. Bulk Pigment Reducer: Edgar Chandler MD. Phlebotomist Medical Lab Assistant: None. Approach: Right internal jugular vein [...] Date/Time: 2017 11:23:57 Reading Location: [place] [address] AngioBody Reading Room POCT- GLUCOSE [id number] 07:38:00 Test Item Value Reference Range Comments POC-GLUCOSE METER (BEAKER) 89 mg/dL 70-110 TESTED AT [address] (test xxqm=0733) [place] [address] PROTHROMBIN [id number] 05:19:00 Test Item Value Reference Range Comments PROTIME (BEAKER) (test lpvj=493) 14.8 seconds 11.7-14.7 INR (BEAKER) (test goix=854) 1.2 <=5.9 RECOMMENDED COUMADIN/WARFARIN INR THERAPY RANGESSTANDARD DOSE: 2.0 - 3.0 Includes: PROPHYLAXIS forvenous thrombosis, systemic embolization; TREATMENT for venous thrombosis and/or pulmonary embolus.HIGH RISK: Target INR is 2.5-3.5 for patients with mechanical heart valves.POCT-GLUCOSE [id number] 23:26:00 Test Item Value Reference Range Comments POC-GLUCOSE METER (BEAKER) 261 mg/dL 70-110 TESTED AT [address] (test vjlm=7231) [place] [address]
--- NOTE | 2019-03-26 19:32 | RAD REPORT ---
EXAM DESCRIPTION: CT - Ct Stroke Brain Wo Cont - 03/26/2019 7:21 pm CLINICAL HISTORY: MENTAL STATUS CHANGE Headache, CVA COMPARISON: Head Brain Wo Cont dated 03/08/2019; Head Brain Wo Cont dated 05/25/2018 TECHNIQUE: All CT scans are performed using dose optimization technique as appropriate and may inclu de automated exposure control or mA/KV adjustment according to patient size. FINDINGS: No intracranial hemorrhage, hydrocephalus or extra-axial fluid collection. Prominent gener alized brain atrophy is present with moderate periventricular and deep white matter chronic microvasc ular ischemic changes. No areas of brain edema or evidence of midline shift. Mucosal thickening is seen in the right maxillary antrum with thickening of the wall suggesting chron ic sinusitis. Paranasal sinuses and mastoids are otherwise clear. The calvarium is intact. Vertebral arteries are calcified. IMPRESSION: No acute intracranial abnormality. The findings were discussed with Dr. Marshall On 03/26/2019 at 7:27 p.m. by telephone.
[2019-03-26 19:46] LABS: Basophils % 0.4 % (0-1.3); Eosinophils % 10.4 % (0-4.4); Hematocrit 37.3 % (39.6-49.0); Lymphocytes % 12.7 % (15.3-44.8); MPV 9.2 fL (7.6-11.3); Monocytes % 9.6 % (3.3-12.3); RBC Red Blood Cell Count 3.88 M/uL (4.33-5.43)
[2019-03-26 19:51] LABS: Protime INR 1.18
[2019-03-26 19:58] LABS: Arterial Blood Carboxyhemoglob 1.3 % (0-1.5); Blood Gas Oxyhemoglobin 84.4 % (94-97); Blood O2 Saturation 86.3 % (92-98.5)
--- NOTE | 2019-03-26 20:11 | RAD REPORT ---
EXAM DESCRIPTION: RAD - Chest Single View - 03/26/2019 8:02 pm CLINICAL HISTORY: stroke symptoms Chest pain. COMPARISON: Chest Single View dated 03/10/2019; Chest Single View dated 03/08/2019; Chest Single View d ated 02/15/2019; Chest Single View dated 10/15/2018 FINDINGS: Portable technique limits examination quality. Elevation the right hemidiaphragm is seen with subsegmental atelectasis in the right lung base. The l ungs are grossly clear of acute infiltrate. The heart is mildly enlarged in size. No displaced fractu res.
[2019-03-26 20:13] LABS: AST/SGOT 29 U/L (15-37); Albumin 2.2 g/dL (3.4-5.0); Alkaline Phosphatase 104 U/L (45-117); BUN Blood Urea Nitrogen 51 mg/dL (7-18); Bicarbonate 27 mmol/L (21-32); Bilirubin Direct 0.2 mg/dL (0-0.2); Bilirubin Total 0.4 mg/dL (0.2-1.0); Glucose Level 107 mg/dL (74-106); Magnesium 2.3 mg/dL (1.8-2.4); NT PRO-BNP 9029 pg/mL (<450); Potassium 4.1 mmol/L (3.5-5.1); Protein, Total 7.5 g/dL (6.4-8.2); Sodium Level 135 mmol/L (136-145); Troponin (Emerg Dept Use Only) 0.04 ng/mL (0.0-0.045)
[2019-03-26 20:32] LABS: ALT/SGPT < 6 U/L (12-78)
--- NOTE | 2019-03-26 20:39 | ER ---
Nurse's Notes [facility] Name: Nadir Mendez Age: 73 yrs Sex: Male : 1945 Arrival Date: 03/26/2019 Time: 19:16 Bed 2 Private MD: Diagnosis: Altered mental status. Possible ischemic stroke Presentation: 03/26 19:25 Onset of symptoms was March 26, 2019 at 18:30. aa1 19:25 Acuity: ASTER 1 aa1 19:25 Transition of care: patient was received from another setting of care (long-term care [facility]. An acute neurological deficit is present. The patients blood glucose was checked prior to arriving to the hospital and was found to be hyperglycemic. Risk Assessment: Do you want to hurt yourself or someone else? Unable to obtain. Initial Sepsis Screen:. 19:28 Presenting complaint: EMS states: pt was seen alert and oriented to his normal baseline aa1 at about 1830 this evening but when staff went into his room shortly after they found him to be responsive to painful stimuli only. Upon arrival to ED pt obtunded with no verbal or motor response. Code stroke initiated. 19:28 Method Of Arrival: EMS: [facility] aa1 19:30 Initial Sepsis Screen: Does the patient meet any 2 criteria? Temp <36.0*C (96.8*F)) or hb > 38.3*C (100.9*F). Altered Mental Status. Yes Does the patient have a suspected source of infection? Yes: Skin breakdown/wound If YES to both, name of provider notified: Ramesh Marshall MD Care prior to arrival: BGL 163. Triage Assessment: 19:20 The onset of the patients symptoms was March 26, 2019 at 18:30. General: Appears ill, ea Behavior is responds to verbal stimulus at times. Stroke Activation: Physician: Stroke Attending; Name: N/A; Notified At: 19:09; Arrived At: Physician: Chief Stroke Resident; Name: N/A; Notified At: 19:09; Arrived At: Physician: Stroke Resident; Name: N/A; Notified At: 19:09; Arrived At: Physician: ED Attending; Name: Dr. Marshall; Notified At: 19:09; Arrived At: 19:09 Physician: ED Resident; Name: N/A; Notified At: 19:09; Arrived At: Historical: - Allergies: 19:44 No Known Allergies; aa1 - Home Meds: 19:39 Arginaid 4.5 gram-156 mg/9.2 gram oral pwpk daily [Active]; aspirin 81 mg Oral TbEC 1 aa1 tab once daily [Active]; carbidopa-levodopa 25-100 mg Oral tab 1 tab twice a day [Active]; clopidogrel 75 mg Oral tab 1 tab nightly [Active]; famotidine 20 mg Oral tab 1 tab once daily [Active]; gabapentin 100 mg Oral cap twice a day for Neuropathic Pain [Active]; GlucaGen HypoKit 1 mg injection solr 1 mL as needed [Active]; Lantus 100 unit/mL Sub-Q soln 15 unit daily [Active]; Lyrica 75 mg Oral 1 cap 2 times per day [Active]; midodrine 5 mg oral tab 1 tabs every Tue, Nicole, Sat 30 mins prior to dialysis [Active]; acetaminophen-codeine 300-30 mg Oral tab 1 tab twice a day for Pain [Active]; - PMHx: 19:39 Alzheimers; Hyperlipidemia; Dialysis; GERD; Hepatitis; Diabetes - NIDDM; Depression; aa1 Anemia; Hypertension; Parkinson's; Pancreatitis; neuropathy; PVD; Renal Disease; Tues, Thurs, Sat; Ulcers; - Immunization history:: Adult Immunizations unknown. - Social history:: Smoking status: unknown. - Ebola Screening: : Unable to complete screening because. Screenin:02 Abuse screen: Denies threats or abuse. Nutritional screening: No deficits noted. hb Tuberculosis screening: No symptoms or risk factors identified. Fall Risk Secondary diagnosis (15 points) impaired mobility, IV access (20 points). Assessment: 19:09 General: Pt arrived via EMS and was met by provider in ambulance bay for quick initial aa1 assessment prior to be taken directly to CT. 19:20 The patient has not been NPO before screening. The patient is currently on the aa1 following diet: unknown The patient is not alert and/or unable to follow commands. Bedside swallow screen discontinued. Patient kept NPO until cleared by Speech Therapy or Physician. Provider notified of bedside swallow screening results: Ramesh Marshall MD. 19:20 VAN Scoring: Arm Drift: Flaccid/no antigravity. The patient exhibits slurred or garbled ea speech. The patient is exhibiting difficulty speaking. The patient does not exhibit difficulty understanding words. The patient is able to swallow own secretions with no drooling or need for suction. pt unable to follow commands at this time pt unable to follow commands The patient failed the bedside swallow screening. The patient will be kept NPO until cleared by Speech Therapy or Physician. Pain: Unable to use pain scale. FLACC scale score is 0 out of 10. Neuro: Level of Consciousness is confused, lethargic, Oriented to none Facial symmetry appears normal, pt unable to follow commands at this time. Cardiovascular:. Respiratory: Airway is patent Respiratory effort is even, unlabored, Respiratory pattern is regular, symmetrical, Breath sounds are clear. GI: Abdomen is round. Derm: Skin is pale. 19:40 Reassessment: Pt resting with eyes closed, pt had small bowel movement jose care ea provided brief changed, pt noted to have multiple pressure ulcers to sacral area and jaswant feet, pt placed on Chuy hugger, tolerated well. 20:00 Reassessment: Patient and/or family updated on plan of care and expected duration. Pain ea level reassessed. Family at bedside, reports pt normally does not move extremities and has been having on and on confusion. Provider notified of information. 20:10 Reassessment: Provider at bedside updating pt on plan of care. Family given option for ea TPA, family refused at this time, family verbalized they wanted to await on labs to result. 20:38 Reassessment: Provider at bedside updating pt family on plan of care. Provider spoke [facility] neurologist and presented to option for family to transfer to [facility] for further evaluation. Pt family verbalized the understanding of information and agreed to transfer pt. 21:15 Reassessment: Patient and/or family updated on plan of care and expected duration. Pain ea level reassessed. Pt resting with eyes closed, Gilliam to bedside drain, small amount of dark urine noted in tube. family reports he makes very little urine. Provider notified. 22:21 Reassessment: Patient and/or family updated on plan of care and expected duration. Pain ea level reassessed. Pt awakens to verbal stimulus but continues to be lethargic. Remains on O2 per NC at 2L, pt tolerating well. Respirations even and unlabored. Chest expansion even and symmetrical. Gilliam to bedside drain. [facility] at facility for transfer. Report given to EMS. Pt left via stretcher per EMS. Vital Signs: 19:30 BP 148 / 61; Pulse 60; Resp 18; Temp 96.7; Pulse Ox 100% ; Weight 68.04 kg; Height 5 hb ft. 5 in. (165.10 cm); 20:43 BP 145 / 69; Pulse 62; Resp 16; Temp 95.6; Pulse Ox 97% on 2 lpm NC; ea 21:00 BP 130 / 68; Pulse 61; Resp 19; Temp 96.8; Pulse Ox 100% on 2 lpm NC; ea 22:00 BP 128 / 60; Pulse 61; Resp 18; Temp 97.0; Pulse Ox 99% on 2 lpm NC; ea 19:30 Body Mass Index 24.96 (68.04 kg, 165.10 cm) hb NIH Stroke Scale Scores: 19:10 NIHSS Score: 27 hb ED Course: 19:16 Patient arrived in ED. aa1 19:19 Ramesh Marshall MD is Attending Physician. pkl 19:20 Inserted saline lock: 18 gauge in right antecubital area, using aseptic technique. ea Blood collected. 19:22 CT Stroke Brain w/o Contrast In Process Unspecified. EDMS 19:27 Triage completed. aa1 19:40 Gilliam cath inserted, using sterile technique, 16 Fr., by mo, balloon inflated, to ea gravity drainage. 19:51 Kimberly Monteiro, RN is Primary Nurse. hb 20:03 Patient has correct armband on for positive identification. Placed in gown. Bed in low hb position. Call light in reach. Side rails up X2. Adult w/ patient. 20:03 Arm band placed on right wrist. Patient placed in an exam room, on a stretcher, on hb oxygen, on pulse oximetry. 20:04 XRAY Chest (1 view) In Process Unspecified. EDMS 22:29 No provider procedures requiring assistance completed. Patient transferred, IV remains ea in place. Administered Medications: 19:56 CANCELLED (Physician Discretion): NS 0.9% 1000 ml IV at 100 ml/hr once aa1 Point of Care Testing: Blood Glucose: 19:32 Blood Glucose: 123 mg/dL; hb Ranges: Outcome: 20:38 ER care complete, transfer ordered by . pkl 22:29 Transferred by ground EMS to [facility], Transfer form completed. ea 22:29 Condition: stable 22:30 Patient left the ED. jonathon NIH Stroke Scale - NIH Stroke Score Date: 03/26/2019 Time: 19:10 Total Score = 27 1a. Level of Consciousness (LOC) - 1(Not Alert) 1b. Level of Consciousness (LOC) (Year \T\ Age) - 2(Neither) 1c. LOC Commands (Open \T\ Closes Eyes/Bar Captain) - 2(Neither) 2. Best Gaze (Lateral Gaze Paresis) - 0(Normal) 3. Visual Field Loss - 0(No visual loss) 4. Facial Palsy - 3(Complete paralysis) 5a. Left Arm: Motor (10-second hold) - 3(No effort against gravity) 5b. Right Arm: Motor (10-second hold) - 3(No effort against gravity) 6a. Left Leg: Motor (5-second hold - always test supine) - 3(No effort against gravity) 6b. Right Leg: Motor (5-second hold - always test supine) - 3(No effort against gravity) 7. Limb Ataxia (finger/nose \T\ heel/ozuna - test with eyes open) - 0(Absent) 8. Sensory Loss (pinprick arms/legs/face) - 2(Severe to total loss) 9. Best Language: Aphasia (description/naming/reading) - 3(Mute, global aphasia) 10. Dysarthria (speech clarity - read or repeat words) - 2(Severe) 11. Extinction and Inattention (visual/tactile/auditory/spatial/personal) - 0(No abnormality) Initials: hb Signatures: Dispatcher [employer] EDVicenta Dupont RN RN aa1 Ramesh Marshall MD MD pkl Baxter, Heather, RN RN hb Antunez, Elena, RN RN ea Corrections: (The following items were deleted from the chart) 19:32 19:25 Acuity: ASTER 2 aa1 aa1 03/27 03:48 03/26 19:30 Initial Sepsis Screen: Does the patient meet any 2 criteria? Temp ea <36.0*C (96.8*F)) or > 38.3*C (100.9*F). Altered Mental Status. Yes Does the patient have a suspected source of infection? Yes: Skin breakdown/wound hb
--- NOTE | 2019-03-26 20:40 | EDPHYS ---
Physician Documentation [facility] Name: Nadir Mendez Age: 73 yrs Sex: Male : 1945 Arrival Date: 03/26/2019 Time: 19:16 Bed 2 Private MD: ED Physician Ramesh Marshall HPI: 03/26 19:33 This 73 yrs old Male presents to ER via EMS with complaints of S/S of Possible pkl Stroke. 19:33 The patient's problem is reported as altered mental status, unresponsive, responds to pkl to verbal stimuli, to painful stimuli. Onset: The symptoms/episode began/occurred just prior to arrival, 1 hour(s) ago. Patient found unresponsive by half-way staff. Last known well was 1829. Historical: - Allergies: 19:44 No Known Allergies; aa1 - Home Meds: 19:39 Arginaid 4.5 gram-156 mg/9.2 gram oral pwpk daily [Active]; aspirin 81 mg Oral TbEC 1 aa1 tab once daily [Active]; carbidopa-levodopa 25-100 mg Oral tab 1 tab twice a day [Active]; clopidogrel 75 mg Oral tab 1 tab nightly [Active]; famotidine 20 mg Oral tab 1 tab once daily [Active]; gabapentin 100 mg Oral cap twice a day for Neuropathic Pain [Active]; GlucaGen HypoKit 1 mg injection solr 1 mL as needed [Active]; Lantus 100 unit/mL Sub-Q soln 15 unit daily [Active]; Lyrica 75 mg Oral 1 cap 2 times per day [Active]; midodrine 5 mg oral tab 1 tabs every Tue, Nicole, Sat 30 mins prior to dialysis [Active]; acetaminophen-codeine 300-30 mg Oral tab 1 tab twice a day for Pain [Active]; - PMHx: 19:39 Alzheimers; Hyperlipidemia; Dialysis; GERD; Hepatitis; Diabetes - NIDDM; Depression; aa1 Anemia; Hypertension; Parkinson's; Pancreatitis; neuropathy; PVD; Renal Disease; Tues, Thurs, Sat; Ulcers; - Immunization history:: Adult Immunizations unknown. - Social history:: Smoking status: unknown. - Ebola Screening: : Unable to complete screening because. ROS: 19:33 Eyes: Negative for injury, pain, redness, and discharge, ENT: Negative for injury, pkl pain, and discharge, Neck: Negative for injury, pain, and swelling, Cardiovascular: Negative for chest pain, palpitations, and edema, Respiratory: Negative for shortness of breath, cough, wheezing, and pleuritic chest pain, Abdomen/GI: Negative for abdominal pain, nausea, vomiting, diarrhea, and constipation, Back: Negative for injury and pain, : Negative for injury, bleeding, discharge, and swelling, MS/Extremity: Negative for injury and deformity, Skin: Negative for injury, rash, and discoloration. 19:33 Neuro: Positive for altered mental status, speech changes, weakness, upper and lower extremities. Exam: 19:33 Radiologist reports: No acute findings pkl 19:33 Head/Face: Normocephalic, atraumatic. Eyes: Pupils equal round and reactive to light, extra-ocular motions intact. Lids and lashes normal. Conjunctiva and sclera are non-icteric and not injected. Cornea within normal limits. Periorbital areas with no swelling, redness, or edema. ENT: Nares patent. No nasal discharge, no septal abnormalities noted. Tympanic membranes are normal and external auditory canals are clear. Oropharynx with no redness, swelling, or masses, exudates, or evidence of obstruction, uvula midline. Mucous membranes moist. Neck: Trachea midline, no thyromegaly or masses palpated, and no cervical lymphadenopathy. Supple, full range of motion without nuchal rigidity, or vertebral point tenderness. No Meningismus. Chest/axilla: Normal chest wall appearance and motion. Nontender with no deformity. No lesions are appreciated. Cardiovascular: Regular rate and rhythm with a normal S1 and S2. No gallops, murmurs, or rubs. Normal PMI, no JVD. No pulse deficits. Respiratory: Lungs have equal breath sounds bilaterally, clear to auscultation and percussion. No rales, rhonchi or wheezes noted. No increased work of breathing, no retractions or nasal flaring. Abdomen/GI: Soft, non-tender, with normal bowel sounds. No distension or tympany. No guarding or rebound. No evidence of tenderness throughout. Back: No spinal tenderness. No costovertebral tenderness. Full range of motion. Skin: Warm, dry with normal turgor. Normal color with no rashes, no lesions, and no evidence of cellulitis. MS/ Extremity: Pulses equal, no cyanosis. Neurovascular intact. Full, normal range of motion. 19:33 Neuro: Orientation: Not oriented to person, place, time, Mentation: responsive to voice unable to follow commands, Cranial nerves: unable to test, not following verbal comands, Cerebellar function: unable to test, not following verbal comands, Motor: strength is normal, Strength is 1/5 in the , upper and lower extremities. Vital Signs: 19:30 BP 148 / 61; Pulse 60; Resp 18; Temp 96.7; Pulse Ox 100% ; Weight 68.04 kg; Height 5 hb ft. 5 in. (165.10 cm); 20:43 BP 145 / 69; Pulse 62; Resp 16; Temp 95.6; Pulse Ox 97% on 2 lpm NC; ea 21:00 BP 130 / 68; Pulse 61; Resp 19; Temp 96.8; Pulse Ox 100% on 2 lpm NC; ea 22:00 BP 128 / 60; Pulse 61; Resp 18; Temp 97.0; Pulse Ox 99% on 2 lpm NC; ea 19:30 Body Mass Index 24.96 (68.04 kg, 165.10 cm) hb NIH Stroke Scale Scores: 19:10 NIHSS Score: 27 hb MDM: 19:19 Patient medically screened. pkl 20:12 Data reviewed: vital signs, nurses notes. ED course: Talked to Dr. Ferrell ( Neurologist pkl at [facility] ) Patient aphasic and not following commands. Symptoms within 3 hours last known well. Discussed initiating TPA. Dr. Ferrell said to discussed benefits and risks of TPA with family and see if they will consent. Discussed in details of benefits and risks and window for initiating TPA with family. Family declined TPA treatment.. 20:32 Data reviewed: vital signs, nurses notes, lab test result(s), EKG, radiologic studies, pkl CT scan, plain films. ED course: Discussed lab. and CT Scan results with family and Dr. Ferrell accepting transfer of patient to [facility] for further evaluations. Family understood and agree to the transfer.. 03/26 19:30 Order name: Basic Metabolic Panel pkl 03/26 19:30 Order name: CBC with Diff pkl 03/26 19:30 Order name: LFT's pkl 03/26 19:30 Order name: Magnesium pkl 03/26 19:30 Order name: NT PRO-BNP; Complete Time: 20:40 pkl 03/26 19:30 Order name: PT-INR; Complete Time: 20:23 pkl 03/26 19:30 Order name: Troponin (emerg Dept Use Only); Complete Time: 20:40 pkl 03/26 19:30 Order name: ABG; Complete Time: 20:23 pkl 03/26 19:30 Order name: Blood Culture Adult (2) pkl 03/26 19:30 Order name: Lactate; Complete Time: 20:23 pkl 03/26 19:30 Order name: Procalcitonin pk03/26 19:31 Order name: Basic Metabolic Panel; Complete Time: 20:40 EDMS 03/26 19:18 Order name: CT Stroke Brain w/o Contrast; Complete Time: 20:23 aa1 03/26 19:30 Order name: XRAY Chest (1 view); Complete Time: 20:23 pkl 03/26 19:30 Order name: EKG; Complete Time: 19:32 pkl 03/26 19:30 Order name: Cardiac monitoring; Complete Time: 19:55 pkl 03/26 19:30 Order name: EKG - Nurse/Tech; Complete Time: 04:28 pk03/26 19:30 Order name: IV Saline Lock; Complete Time: 19:55 pkl 03/26 19:30 Order name: Labs collected and sent; Complete Time: 19:55 pkl 03/26 19:30 Order name: O2 Per Protocol; Complete Time: 19:56 pkl 03/26 19:30 Order name: O2 Sat Monitoring; Complete Time: 19:56 pkl 03/26 19:31 Order name: CBC with Automated Diff; Complete Time: 20:23 EDMS 03/26 19:31 Order name: Liver (Hepatic) Function; Complete Time: 20:40 EDMS 03/26 19:31 Order name: Magnesium; Complete Time: 20:40 EDMS 03/26 19:31 Order name: Gilliam; Complete Time: 19:55 pkl 03/26 19:43 Order name: C-Reactive Protein; Complete Time: 20:40 EDMS Administered Medications: 19:56 CANCELLED (Physician Discretion): NS 0.9% 1000 ml IV at 100 ml/hr once aa1 Point of Care Testing: Blood Glucose: 19:32 Blood Glucose: 123 mg/dL; hb Ranges: Critical Glucose Levels:Adult <50 mg/dl or >400 mg/dl <40 mg/dl or >180 mg/dl Disposition: 03/26/19 20:38 Transfer ordered to [facility]. Diagnosis is Altered mental status. Possible ischemic stroke. - Reason for transfer: Higher level of care. - Accepting physician is Dr. Malloy. - Condition is Stable. - Problem is new. - Symptoms are unchanged. NIH Stroke Scale - NIH Stroke Score Date: 03/26/2019 Time: 19:10 Total Score = 27 1a. Level of Consciousness (LOC) - 1(Not Alert) 1b. Level of Consciousness (LOC) (Year \T\ Age) - 2(Neither) 1c. LOC Commands (Open \T\ Closes Eyes/Shape Hand) - 2(Neither) 2. Best Gaze (Lateral Gaze Paresis) - 0(Normal) 3. Visual Field Loss - 0(No visual loss) 4. Facial Palsy - 3(Complete paralysis) 5a. Left Arm: Motor (10-second hold) - 3(No effort against gravity) 5b. Right Arm: Motor (10-second hold) - 3(No effort against gravity) 6a. Left Leg: Motor (5-second hold - always test supine) - 3(No effort against gravity) 6b. Right Leg: Motor (5-second hold - always test supine) - 3(No effort against gravity) 7. Limb Ataxia (finger/nose \T\ heel/ozuna - test with eyes open) - 0(Absent) 8. Sensory Loss (pinprick arms/legs/face) - 2(Severe to total loss) 9. Best Language: Aphasia (description/naming/reading) - 3(Mute, global aphasia) 10. Dysarthria (speech clarity - read or repeat words) - 2(Severe) 11. Extinction and Inattention (visual/tactile/auditory/spatial/personal) - 0(No abnormality) Initials: hb Signatures: Dispatcher [employer] EDVicenta Dupont RN RN aa1 Ramesh Marshall MD MD pkJosefina Son RN RN ea Corrections: (The following items were deleted from the chart) 19:42 19:33 C-REACTIVE PROTEIN+C.LAB.BRZ ordered. EDMS EDMS 19:56 19:31 NS 0.9% 1000 ml IV at 100 ml/hr once ordered. pkl aa1 21:09 20:38 03/26/2019 20:38 Transfer ordered to [facility]. pkl Diagnosis is Altered mental status. Possible ischemic stroke. Reason for transfer: Higher level of care. Accepting physician is Dr. Ferrell. Condition is Stable. Problem is new. Symptoms are unchanged. pkl 22:30 21:09 03/26/2019 20:38 Transfer ordered to [facility]. ea Diagnosis is Altered mental status. Possible ischemic stroke. Reason for transfer: Higher level of care. Accepting physician is Dr. Malloy. Condition is Stable. Problem is new. Symptoms are unchanged. pkl
[2019-03-26 22:55] VITALS: BP 145/69; TEMP 95.6; O2SAT 97
--- NOTE | 2019-03-27 07:21 | EKG ---
Test Date: 2019-03-26 Test Time: 20:03:25 Clinical Project Manager: IWONA MEASUREMENT RESULTS: Intervals: Rate: 60 [place]: 174 QRSD: 102 QT: 448 QTc: 448 [place]: P: [place]: 174 QRS: 60 T: 126 INTERPRETIVE STATEMENTS: Normal sinus rhythm Nonspecific T wave abnormality Abnormal ECG Compared to ECG 03/08/2019 02:26:41 T-wave abnormality now present Sinus tachycardia no longer present Myocardial infarct finding no longer present Electronically Signed On 03-27-19 07:20:37 CDT by Sid Yarbrough
== END 2019-03-26 22:30 | disposition short-term general hospital (02) ==
LOC: ER 19:13
DX: R41.82 Altered mental status, unspecified (principal); E11.22 Type 2 diabetes mellitus with diabetic chronic kidney disease; I12.0 Hypertensive chronic kidney disease with stage 5 chronic kidney disease or end stage renal disease; N18.6 End stage renal disease; G30.9 Alzheimer's disease, unspecified; G20 Parkinson's disease; F02.80 Dementia in other diseases classified elsewhere, unspecified severity, without behavioral disturbance, psychotic disturbance, mood disturbance, and anxiety; E78.5 Hyperlipidemia, unspecified; K21.9 Gastro-esophageal reflux disease without esophagitis; Z99.2 Dependence on renal dialysis; Z79.82 Long term (current) use of aspirin; Z79.4 Long term (current) use of insulin
CPT/HCPCS: 36415; 51702; 70450; 71045; 80048; 80076; 82805; 82962; 83605; 83735; 83880; 84145; 84484; 85025; 85610; 86140; 87040; 93005; 99291

== ENCOUNTER 2019-04-14 21:51 | Emergency (ER) | payer OTHER ==
--- OUTSIDE RECORDS SUMMARY | 2019-04-14 22:01 | XMS REPORT ---
[...] Status Dosage Pravachol [facility] [id number] 40 MG Orally Once Active 1 tablet a day Results No Known Results Summary Purpose eClinicalWorks Submission
--- OUTSIDE RECORDS SUMMARY | 2019-04-14 22:01 | XMS REPORT ---
:1945 Author Organization [facility] Address [address] [place] [address] Care Team Providers Name Role Phone FLORINA SUN Unavailable Unavailable RICHELLE LOPEZ Unavailable Unavailable ANN MORE Unavailable Unavailable Problems This patient has no known problems. Allergies, Adverse Reactions, Alerts This patient has no known allergies or adverse reactions. Medications This patient has no known medications. Results Test Description Test Time Test Comments Text Results Atomic Results Result Comments POCT-GLUCOSE METER 2019-04-09 13:21:00 Test Item Value Reference Range Comments POC-GLUCOSE METER (BEAKER) (test 190 mg/dL 70-110 TESTED AT [facility] [address] [facility] yeut=2602) [facility] [address] BASIC METABOLIC [id number] 05:57:00 Test Item Value Reference Range Comments SODIUM (BEAKER) (test 140 meq/L 136-145 jzjf=417) POTASSIUM (BEAKER) (test 3.6 meq/L 3.5-5.1 lchd=153) CHLORIDE (BEAKER) (test 103 meq/L 98-107 bzlg=140) CO2 (BEAKER) (test 29 meq/L 22-29 kkcr=824) BLOOD UREA NITROGEN 26 mg/dL 7-21 (BEAKER) (test epzu=046) CREATININE (BEAKER) (test 2.26 mg/dL 0.57-1.25 edjz=575) GLUCOSE RANDOM (BEAKER) 191 mg/dL 70-105 (test gctc=234) CALCIUM (BEAKER) (test 8.5 mg/dL 8.4-10.2 ldex=961) EGFR (BEAKER) (test 28 mL/min/1.73 sq m ESTIMATED GFR IS NOT jkps=2634) ACCURATE CREATININE CLEARANCE IN PREDICTING GLOMERULAR FILTRATION RATE. ESTIMATED GFR IS NOT APPLICABLE FOR DIALYSIS PATIENTS. [id number] 05:54:00 Test Item Value Reference Range Comments PHOSPHORUS (BEAKER) (test naua=747) 2.9 mg/dL 2.3-4.7 [id number] 05:54:00 Test Item Value Reference Range Comments MAGNESIUM (BEAKER) (test ckom=000) 2.1 mg/dL 1.6-2.6 POCT-GLUCOSE [id number] 05:52:00 Test Item Value Reference Range Comments POC-GLUCOSE METER (BEAKER) 171 mg/dL 70-110 TESTED AT [facility] [address] [facility] (test qwwo=0215) [place] [address] CBC W/PLT COUNT & AUTO [id number] 05:06:00 Test Item Value Reference Range Comments WHITE BLOOD CELL COUNT (BEAKER) (test hnap=772) 10.1 K/ L 3.5-10.5 RED BLOOD CELL COUNT (BEAKER) (test qtrr=535) 3.49 M/ L 4.63-6.08 HEMOGLOBIN (BEAKER) (test lmxt=180) 10.9 GM/DL 13.7-17.5 HEMATOCRIT (BEAKER) (test otik=820) 34.9 % 40.1-51.0 MEAN CORPUSCULAR VOLUME (BEAKER) (test dpeq=433) 100.0 fL 79.0-92.2 MEAN CORPUSCULAR HEMOGLOBIN (BEAKER) (test 31.2 pg 25.7-32.2 gjtr=657) MEAN CORPUSCULAR HEMOGLOBIN CONC (BEAKER) (test 31.2 GM/DL 32.3-36.5 efpp=157) RED CELL DISTRIBUTION WIDTH (BEAKER) (test 16.6 % 11.6-14.4 cssj=897) PLATELET COUNT (BEAKER) (test zclm=101) 227 K/CU MM 150-450 MEAN PLATELET VOLUME (BEAKER) (test fffs=671) 11.3 fL 9.4-12.4 NUCLEATED RED BLOOD CELLS (BEAKER) (test 0 /100 WBC 0-0 ftss=276) NEUTROPHILS RELATIVE PERCENT (BEAKER) (test 81 % rkxd=704) LYMPHOCYTES RELATIVE PERCENT (BEAKER) (test 8 % nyml=392) MONOCYTES RELATIVE PERCENT (BEAKER) (test 6 % pqde=647) EOSINOPHILS RELATIVE PERCENT (BEAKER) (test 4 % ujfy=446) BASOPHILS RELATIVE PERCENT (BEAKER) (test 1 % kzme=324) NEUTROPHILS ABSOLUTE COUNT (BEAKER) (test 8.20 K/ L 1.78-5.38 anpp=421) LYMPHOCYTES ABSOLUTE COUNT (BEAKER) (test 0.81 K/ L 1.32-3.57 pzyq=589) MONOCYTES ABSOLUTE COUNT (BEAKER) (test 0.58 K/ L 0.30-0.82 snvv=576) EOSINOPHILS ABSOLUTE COUNT (BEAKER) (test 0.45 K/ L 0.04-0.54 kmfu=765) BASOPHILS ABSOLUTE COUNT (BEAKER) (test 0.05 K/ L 0.01-0.08 odiq=823) IMMATURE GRANULOCYTES-RELATIVE PERCENT (BEAKER) 1 % 0-1 (test hqgj=6979) POCT-GLUCOSE [id number] 23:47:00 Test Item Value Reference Range Comments POC-GLUCOSE METER (BEAKER) 125 mg/dL 70-[address] (test yimq=8625) [facility] [address] POCT-GLUCOSE [id number] 16:43:00 Test Item Value Reference Range Comments POC-GLUCOSE METER (BEAKER) 105 mg/dL 70-[address] (test axbi=2898) [facility] [address] POCT-GLUCOSE [id number] 11:31:00 Test Item Value Reference Range Comments POC-GLUCOSE METER (BEAKER) 181 mg/dL 70-[address] (test nakv=9433) [facility] [address] CALCIUM, [id number] 07:38:00 Test Item Value Reference Range Comments CALCIUM IONIZED (BEAKER) (test ycde=207) 1.14 mmol/L 1.12-1.27 PH, BLOOD (BEAKER) (test evcv=4462) 7.41 BASIC METABOLIC [id number] 05:59:00 Test Item Value Reference Range Comments SODIUM (BEAKER) (test 138 meq/L 136-145 dzzr=930) POTASSIUM (BEAKER) (test 4.4 meq/L 3.5-5.1 lxiz=185) CHLORIDE (BEAKER) (test 101 meq/L 98-107 igsb=895) CO2 (BEAKER) (test 27 meq/L 22-29 tvpb=736) BLOOD UREA NITROGEN 74 mg/dL 7-21 (BEAKER) (test vpjg=003) CREATININE (BEAKER) (test 4.28 mg/dL 0.57-1.25 nkfv=431) GLUCOSE RANDOM (BEAKER) 145 mg/dL 70-105 (test zqsy=160) CALCIUM (BEAKER) (test 8.9 mg/dL 8.4-10.2 dbuy=957) EGFR (BEAKER) (test 14 mL/min/1.73 sq m ESTIMATED GFR IS NOT rvtz=7931) ACCURATE CREATININE CLEARANCE IN PREDICTING GLOMERULAR FILTRATION RATE. ESTIMATED GFR IS NOT APPLICABLE FOR DIALYSIS PATIENTS. [id number] 05:56:00 Test Item Value Reference Range Comments PHOSPHORUS (BEAKER) (test xpiv=645) 5.2 mg/dL 2.3-4.7 [id number] 05:56:00 Test Item Value Reference Range Comments MAGNESIUM (BEAKER) (test gkis=162) 2.4 mg/dL 1.6-2.6 CBC W/PLT COUNT & AUTO [id number] 05:26:00 Test Item Value Reference Range Comments WHITE BLOOD CELL COUNT (BEAKER) (test fmnj=851) 9.3 K/ L 3.5-10.5 RED BLOOD CELL COUNT (BEAKER) (test hecd=191) 3.27 M/ L 4.63-6.08 HEMOGLOBIN (BEAKER) (test lvjw=682) 10.2 GM/DL 13.7-17.5 HEMATOCRIT (BEAKER) (test ymnj=800) 32.0 % 40.1-51.0 MEAN CORPUSCULAR VOLUME (BEAKER) (test byyv=401) 97.9 fL 79.0-92.2 MEAN CORPUSCULAR HEMOGLOBIN (BEAKER) (test 31.2 pg 25.7-32.2 ucja=126) MEAN CORPUSCULAR HEMOGLOBIN CONC (BEAKER) (test 31.9 GM/DL 32.3-36.5 wszw=818) RED CELL DISTRIBUTION WIDTH (BEAKER) (test 16.1 % 11.6-14.4 jjtw=912) PLATELET COUNT (BEAKER) (test moan=918) 194 K/CU MM 150-450 MEAN PLATELET VOLUME (BEAKER) (test kjdn=628) 11.2 fL 9.4-12.4 NUCLEATED RED BLOOD CELLS (BEAKER) (test 0 /100 WBC 0-0 vmcj=721) NEUTROPHILS RELATIVE PERCENT (BEAKER) (test 77 % trbh=990) LYMPHOCYTES RELATIVE PERCENT (BEAKER) (test 11 % yyio=847) MONOCYTES RELATIVE PERCENT (BEAKER) (test 7 % nkhy=117) EOSINOPHILS RELATIVE PERCENT (BEAKER) (test 5 % pvzb=172) BASOPHILS RELATIVE PERCENT (BEAKER) (test 0 % rxqw=069) NEUTROPHILS ABSOLUTE COUNT (BEAKER) (test 7.09 K/ L 1.78-5.38 paxw=005) LYMPHOCYTES ABSOLUTE COUNT (BEAKER) (test 1.02 K/ L 1.32-3.57 zxsc=736) MONOCYTES ABSOLUTE COUNT (BEAKER) (test 0.62 K/ L 0.30-0.82 rezm=386) EOSINOPHILS ABSOLUTE COUNT (BEAKER) (test 0.44 K/ L 0.04-0.54 rahy=359) BASOPHILS ABSOLUTE COUNT (BEAKER) (test 0.04 K/ L 0.01-0.08 ibpj=261) IMMATURE GRANULOCYTES-RELATIVE PERCENT (BEAKER) 1 % 0-1 (test goaz=2784) POCT-GLUCOSE [id number] 23:35:00 Test Item Value Reference Range Comments POC-GLUCOSE METER (BEAKER) 174 mg/dL 70-[address] (test zfak=5916) [facility] [address] ANG, INSERTION G TUBE, W/ [id number] 20:36:00FINAL REPORT Fluoroscopic guided gastrostomy tube placement, 04/07/2019. Clinical History: Sedation. Modality: Fluoroscopy. Geoscience Laboratory Technician: Edgar Chandler MD. Midlevel Provider: MD Leann. Conscious sedation: 1.0 mg Versed, 50 mcg fentanyl IV. The patient was continuously monitored throughout the procedure by the nurse. Vital signs remained stable throughout. Physician intraservice time was approximately 25 minutes Estimated Blood Loss: Less than 1 cc. Specimen: None. Fluoroscopy Time: 1.5 min.Reference Air Kerma (Ka, r) : 13.6 mGy. Technique: Discussion of risks, benefits, and alternatives were made with the patient's family. The patient's family expressed understanding and agreed to proceed. After informed consent was obtained, which included the risks of bleeding, infection, injury to adjacent structures/bowel, adverse medication reaction, the patient's abdomen was prepped and draped in the usual sterile manner. All elements maximal sterile barrier technique was utilized for this procedure, including utilization of sterile scrub solution for skin prep, a large sterile sheet to cover the areas of the patient that were not prepped, and hand hygiene, mask, head covering, and sterile gown for performing radiologist and scrub technologist. Local anesthesiawas achieved with 2% lidocaine, the stomach was insufflated with air via the NG tube. A 19-gauge needle was advanced into the mid-body of the stomach under fluoroscopic guidance. Aspiration of air and injection of contrast confirmed positioning within the stomach. An Amplatz wire was advanced through the needle and curled within the fundus. After a small skin incision was made, the soft tissue tract was created with serial dilators. After the tract was dilated, a 14 Liberian catheter was placed into the stomach. The wire was then removed, and the pigtail of the catheter was locked. The catheter was then secured onto the skin with 2-0 silk. The patient tolerated the procedure well, without immediatecomplications. The patient's vital signs remained stable throughout the procedure. Patient disposition: The patient was discharged from the department in stable condition. Impression:Successful and uncomplicated fluoroscopic guided gastrostomy tube placement, with conscious sedation. Signed : Edgar Chandlerort Verified Date/Time: 04/07/2019 20:36:16 Reading Location: [address] Body Reading Room POCT-GLUCOSE [id number] 18:46: 00 Test Item Value Reference Range Comments POC-GLUCOSE METER (BEAKER) 201 mg/dL 70-[address] (test bmgi=4994) [facility] [address] POCT-GLUCOSE [id number] 12:31:00 Test Item Value Reference Range Comments POC-GLUCOSE METER (BEAKER) 212 mg/dL 70-110 TESTED AT [place] [id number] [facility] (test yhif=4787) [facility] [address] BLOOD [id number] 08:01:00 Test Item Value Reference Range Comments CULTURE (BEAKER) (test webr=8387) No growth in 5 days BASIC METABOLIC [id number] 07:18:00 Test Item Value Reference Range Comments SODIUM (BEAKER) (test 137 meq/L 136-145 opem=103) POTASSIUM (BEAKER) (test 4.0 meq/L 3.5-5.1 rlqu=018) CHLORIDE (BEAKER) (test 99 meq/L 98-107 fgph=113) CO2 (BEAKER) (test 27 meq/L 22-29 ysnf=854) BLOOD UREA NITROGEN 63 mg/dL 7-21 (BEAKER) (test treo=967) CREATININE (BEAKER) (test 3.47 mg/dL 0.57-1.25 ycxw=864) GLUCOSE RANDOM (BEAKER) 208 mg/dL 70-105 (test embd=848) CALCIUM (BEAKER) (test 9.0 mg/dL 8.4-10.2 meuk=746) EGFR (BEAKER) (test 17 mL/min/1.73 sq m ESTIMATED GFR IS NOT zqxp=5126) ACCURATE CREATININE CLEARANCE IN PREDICTING GLOMERULAR FILTRATION RATE. ESTIMATED GFR IS NOT APPLICABLE FOR DIALYSIS PATIENTS. PROTHROMBIN [id number] 06:34:00 Test Item Value Reference Range Comments PROTIME (BEAKER) (test halz=454) 16.1 seconds 11.9-14.2 INR (BEAKER) (test ungq=107) 1.4 <=5.9 Effective 02/05/2019: PT Reference Range ChangeNew: 11.9-14.2 Previous: 11.7- 14.7RECOMMENDED COUMADIN/WARFARIN INR THERAPY RANGESSTANDARD DOSE: 2.0-3.0 Includes: PROPHYLAXIS for venous thrombosis, systemic embolization; TREATMENT for venous thrombosis and/or pulmonary embolus.HIGH RISK: Target INR is2.5-3.5 for patients wiht mechanical heart valves.POCT-GLUCOSE [id number] 06:01:00 Test Item Value Reference Range Comments POC-GLUCOSE METER (BEAKER) 268 mg/dL 70-110 TESTED AT [facility] [address] (test irtv=6182) [facility] [address] POCT-GLUCOSE [id number] 17:57:00 Test Item Value Reference Range Comments POC-GLUCOSE METER (BEAKER) 316 mg/dL 70-110 Notified RN MD/TESTED AT [facility] (test djlq=1114) [address] [place] [address] POCT-GLUCOSE [id number] 12:35:00 Test Item Value Reference Range Comments POC-GLUCOSE METER (BEAKER) 194 mg/dL 70-[address] (test cjcj=0150) [place] [address] BASIC METABOLIC [id number] 07:55:00 Test Item Value Reference Range Comments SODIUM (BEAKER) (test 136 meq/L 136-145 zcya=505) POTASSIUM (BEAKER) (test 4.0 meq/L 3.5-5.1 Specimen slightly bccm=757) hemolyzed CHLORIDE (BEAKER) (test 101 meq/L 98-107 biiv=525) CO2 (BEAKER) (test 25 meq/L 22-29 shxf=742) BLOOD UREA NITROGEN 34 mg/dL 7-21 (BEAKER) (test qfdy=990) CREATININE (BEAKER) (test 2.36 mg/dL 0.57-1.25 Specimen slightly mnmo=440) hemolyzed GLUCOSE RANDOM (BEAKER) 132 mg/dL 70-105 (test tlzi=774) CALCIUM (BEAKER) (test 8.8 mg/dL 8.4-10.2 nhim=131) EGFR (BEAKER) (test 27 mL/min/1.73 sq m ESTIMATED GFR IS NOT zqjx=4582) ACCURATE CREATININE CLEARANCE IN PREDICTING GLOMERULAR FILTRATION RATE. ESTIMATED GFR IS NOT APPLICABLE FOR DIALYSIS PATIENTS. POCT-GLUCOSE [id number] 05:42:00 Test Item Value Reference Range Comments POC-GLUCOSE METER (BEAKER) 159 mg/dL 70-[address] (test wiam=2344) [place] [address] CBC W/PLT COUNT & AUTO [id number] 05:13:00 Test Item Value Reference Range Comments WHITE BLOOD CELL COUNT (BEAKER) (test likx=831) 10.2 K/ L 3.5-10.5 RED BLOOD CELL COUNT (BEAKER) (test aceh=156) 3.36 M/ L 4.63-6.08 HEMOGLOBIN (BEAKER) (test qloi=762) 10.4 GM/DL 13.7-17.5 HEMATOCRIT (BEAKER) (test srpj=147) 32.6 % 40.1-51.0 MEAN CORPUSCULAR VOLUME (BEAKER) (test cudf=217) 97.0 fL 79.0-92.2 MEAN CORPUSCULAR HEMOGLOBIN (BEAKER) (test 31.0 pg 25.7-32.2 hvib=826) MEAN CORPUSCULAR HEMOGLOBIN CONC (BEAKER) (test 31.9 GM/DL 32.3-36.5 merz=169) RED CELL DISTRIBUTION WIDTH (BEAKER) (test 16.2 % 11.6-14.4 hbec=204) PLATELET COUNT (BEAKER) (test zcju=323) 166 K/CU MM 150-450 MEAN PLATELET VOLUME (BEAKER) (test ssac=635) 11.3 fL 9.4-12.4 NUCLEATED RED BLOOD CELLS (BEAKER) (test 0 /100 WBC 0-0 sarp=471) NEUTROPHILS RELATIVE PERCENT (BEAKER) (test 72 % wzrm=150) LYMPHOCYTES RELATIVE PERCENT (BEAKER) (test 13 % iwnh=391) MONOCYTES RELATIVE PERCENT (BEAKER) (test 8 % uamu=470) EOSINOPHILS RELATIVE PERCENT (BEAKER) (test 5 % qdsg=921) BASOPHILS RELATIVE PERCENT (BEAKER) (test 0 % zgbz=353) NEUTROPHILS ABSOLUTE COUNT (BEAKER) (test 7.34 K/ L 1.78-5.38 lxde=547) LYMPHOCYTES ABSOLUTE COUNT (BEAKER) (test 1.35 K/ L 1.32-3.57 hrug=023) MONOCYTES ABSOLUTE COUNT (BEAKER) (test 0.79 K/ L 0.30-0.82 dqtd=333) EOSINOPHILS ABSOLUTE COUNT (BEAKER) (test 0.55 K/ L 0.04-0.54 xzlk=108) BASOPHILS ABSOLUTE COUNT (BEAKER) (test 0.04 K/ L 0.01-0.08 luzr=327) IMMATURE GRANULOCYTES-RELATIVE PERCENT (BEAKER) 1 % 0-1 (test xksn=0109) POCT-GLUCOSE [id number] 23:31:00 Test Item Value Reference Range Comments POC-GLUCOSE METER (BEAKER) 209 mg/dL 70-110 TESTED AT [facility] [address] (test aybv=3206) [facility] [address] POCT-GLUCOSE [id number] 17:46:00 Test Item Value Reference Range Comments POC-GLUCOSE METER (BEAKER) 276 mg/dL 70-110 TESTED AT [facility] [address] [facility] (test dxlu=6282) [facility] [address] POCT-GLUCOSE [id number] 13:32:00 Test Item Value Reference Range Comments POC-GLUCOSE METER (BEAKER) 159 mg/dL 70-110 TESTED AT [facility] [address] [facility] (test vndt=6092) [facility] [address] BASIC METABOLIC [id number] 12:37:00 Test Item Value Reference Range Comments SODIUM (BEAKER) (test 138 meq/L 136-145 dwpe=488) POTASSIUM (BEAKER) (test 3.7 meq/L 3.5-5.1 omin=181) CHLORIDE (BEAKER) (test 105 meq/L 98-107 ejvx=568) CO2 (BEAKER) (test 22 meq/L 22-29 nypp=719) BLOOD UREA NITROGEN 62 mg/dL 7-21 (BEAKER) (test bsnt=041) CREATININE (BEAKER) (test 3.45 mg/dL 0.57-1.25 ahza=790) GLUCOSE RANDOM (BEAKER) 226 mg/dL 70-105 (test ktee=542) CALCIUM (BEAKER) (test 7.3 mg/dL 8.4-10.2 uktn=609) EGFR (BEAKER) (test 17 mL/min/1.73 sq m ESTIMATED GFR IS NOT ozkw=4672) ACCURATE CREATININE CLEARANCE IN PREDICTING GLOMERULAR FILTRATION RATE. ESTIMATED GFR IS NOT APPLICABLE FOR DIALYSIS PATIENTS. [id number] 12:31:00 Test Item Value Reference Range Comments PHOSPHORUS (BEAKER) (test xnmy=519) 4.2 mg/dL 2.3-4.7 [id number] 12:31:00 Test Item Value Reference Range Comments MAGNESIUM (BEAKER) (test rlce=614) 2.4 mg/dL 1.6-2.6 CBC W/PLT COUNT & AUTO [id number] 12:15:00 Test Item Value Reference Range Comments WHITE BLOOD CELL COUNT (BEAKER) (test ejhk=200) 10.4 K/ L 3.5-10.5 RED BLOOD CELL COUNT (BEAKER) (test lyom=973) 2.94 M/ L 4.63-6.08 HEMOGLOBIN (BEAKER) (test bfcq=732) 9.2 GM/DL 13.7-17.5 HEMATOCRIT (BEAKER) (test tpcd=865) 28.7 % 40.1-51.0 MEAN CORPUSCULAR VOLUME (BEAKER) (test rjid=068) 97.6 fL 79.0-92.2 MEAN CORPUSCULAR HEMOGLOBIN (BEAKER) (test 31.3 pg 25.7-32.2 gmmu=216) MEAN CORPUSCULAR HEMOGLOBIN CONC (BEAKER) (test 32.1 GM/DL 32.3-36.5 kque=035) RED CELL DISTRIBUTION WIDTH (BEAKER) (test 16.2 % 11.6-14.4 jqyu=659) PLATELET COUNT (BEAKER) (test nlnu=153) 187 K/CU MM 150-450 MEAN PLATELET VOLUME (BEAKER) (test lkep=059) 11.7 fL 9.4-12.4 NUCLEATED RED BLOOD CELLS (BEAKER) (test 0 /100 WBC 0-0 alwz=135) NEUTROPHILS RELATIVE PERCENT (BEAKER) (test 75 % byoz=340) LYMPHOCYTES RELATIVE PERCENT (BEAKER) (test 9 % xdrq=469) MONOCYTES RELATIVE PERCENT (BEAKER) (test 6 % wmvt=326) EOSINOPHILS RELATIVE PERCENT (BEAKER) (test 9 % itfp=702) BASOPHILS RELATIVE PERCENT (BEAKER) (test 0 % sezk=649) NEUTROPHILS ABSOLUTE COUNT (BEAKER) (test 7.84 K/ L 1.78-5.38 xept=070) LYMPHOCYTES ABSOLUTE COUNT (BEAKER) (test 0.94 K/ L 1.32-3.57 eddy=267) MONOCYTES ABSOLUTE COUNT (BEAKER) (test 0.63 K/ L 0.30-0.82 klrd=089) EOSINOPHILS ABSOLUTE COUNT (BEAKER) (test 0.88 K/ L 0.04-0.54 hmxt=039) BASOPHILS ABSOLUTE COUNT (BEAKER) (test 0.02 K/ L 0.01-0.08 kbsd=921) IMMATURE GRANULOCYTES-RELATIVE PERCENT (BEAKER) 1 % 0-1 (test ydht=3227) POCT-GLUCOSE [id number] 05:46:00 Test Item Value Reference Range Comments POC-GLUCOSE METER (BEAKER) 254 mg/dL 70-110 TESTED AT [facility] [address] [facility] (test sjoq=0920) [facility] [address] POCT-GLUCOSE [id number] 23:26:00 Test Item Value Reference Range Comments POC-GLUCOSE METER (BEAKER) 209 mg/dL 70-[address] (test luhp=3579) [place] [address] POCT-GLUCOSE [id number] 17:36:00 Test Item Value Reference Range Comments POC-GLUCOSE METER (BEAKER) 185 mg/dL 70-[address] (test wbab=9356) [place] [address] POCT-GLUCOSE [id number] 15:51:00 Test Item Value Reference Range Comments POC-GLUCOSE METER (BEAKER) 203 mg/dL 70-[address] (test oboe=7634) [place] [address] POCT-GLUCOSE [id number] 12:58:00 Test Item Value Reference Range Comments POC-GLUCOSE METER (BEAKER) 225 mg/dL 70-[address] AT [address] (test reiq=8620) [place] [address] BASIC METABOLIC [id number] 08:57:00 Test Item Value Reference Range Comments SODIUM (BEAKER) (test 137 meq/L 136-145 nhqp=577) POTASSIUM (BEAKER) (test 3.9 meq/L 3.5-5.1 kuac=280) CHLORIDE (BEAKER) (test 100 meq/L 98-107 atwm=334) CO2 (BEAKER) (test 28 meq/L 22-29 xxgq=067) BLOOD UREA NITROGEN 46 mg/dL 7-21 (BEAKER) (test vmzd=088) CREATININE (BEAKER) (test 2.92 mg/dL 0.57-1.25 hluv=336) GLUCOSE RANDOM (BEAKER) 245 mg/dL 70-105 (test ddaa=119) CALCIUM (BEAKER) (test 8.6 mg/dL 8.4-10.2 cwgg=689) EGFR (BEAKER) (test 21 mL/min/1.73 sq m ESTIMATED GFR IS NOT kitl=1879) ACCURATE CREATININE CLEARANCE IN PREDICTING GLOMERULAR FILTRATION RATE. ESTIMATED GFR IS NOT APPLICABLE FOR DIALYSIS PATIENTS. POCT-GLUCOSE [id number] 07:47:00 Test Item Value Reference Range Comments POC-GLUCOSE METER (BEAKER) 278 mg/dL 70-[address] (test ihbi=5672) [facility] [address] BASIC METABOLIC [id number] 07:35:00 Test Item Value Reference Range Comments SODIUM (BEAKER) (test 123 meq/L 136-145 xcxj=280) POTASSIUM (BEAKER) (test 3.2 meq/L 3.5-5.1 ntob=241) CHLORIDE (BEAKER) (test 90 meq/L 98-107 xmzy=140) CO2 (BEAKER) (test 23 meq/L 22-29 kpwk=898) BLOOD UREA NITROGEN 35 mg/dL 7-21 (BEAKER) (test ycha=545) CREATININE (BEAKER) (test 2.46 mg/dL 0.57-1.25 rpjd=471) GLUCOSE RANDOM (BEAKER) 735 mg/dL 70-105 (test lnby=770) CALCIUM (BEAKER) (test 6.9 mg/dL 8.4-10.2 evqn=088) EGFR (BEAKER) (test 26 mL/min/1.73 sq m ESTIMATED GFR IS NOT pdax=3406) ACCURATE CREATININE CLEARANCE IN PREDICTING GLOMERULAR FILTRATION RATE. ESTIMATED GFR IS NOT APPLICABLE FOR DIALYSIS PATIENTS. [id number] 07:00:00 Test Item Value Reference Range Comments PHOSPHORUS (BEAKER) (test sfeb=170) 2.0 mg/dL 2.3-4.7 [id number] 07:00:00 Test Item Value Reference Range Comments MAGNESIUM (BEAKER) (test pkiy=737) 1.6 mg/dL 1.6-2.6 POCT-GLUCOSE [id number] 06:57:00 Test Item Value Reference Range Comments POC-GLUCOSE METER (BEAKER) 278 mg/dL 70-110 [facility] AT [facility]test vvsg=9946) [facility] [address] CBC W/PLT COUNT & AUTO [id number] 06:09:00 Test Item Value Reference Range Comments WHITE BLOOD CELL COUNT 9.8 K/ L 3.5-10.5 (BEAKER) (test bbox=382) RED BLOOD CELL COUNT (BEAKER) 2.68 M/ L 4.63-6.08 (test bprq=422) HEMOGLOBIN (BEAKER) (test 8.3 GM/DL 13.7-17.5 lupt=273) HEMATOCRIT (BEAKER) (test 27.0 % 40.1-51.0 fqxt=219) MEAN CORPUSCULAR VOLUME 100.7 fL 79.0-92.2 Discordant with previous (BEAKER) (test lvup=211) result MEAN CORPUSCULAR HEMOGLOBIN 31.0 pg 25.7-32.2 (BEAKER) (test erxy=066) MEAN CORPUSCULAR HEMOGLOBIN 30.7 GM/DL 32.3-36.5 CONC (BEAKER) (test zsrl=957) RED CELL DISTRIBUTION WIDTH 17.2 % 11.6-14.4 (BEAKER) (test akkh=390) PLATELET COUNT (BEAKER) (test 133 K/CU MM 150-450 inow=072) MEAN PLATELET VOLUME (BEAKER) 11.9 fL 9.4-12.4 (test xseg=901) NUCLEATED RED BLOOD CELLS 0 /100 WBC 0-0 (BEAKER) (test gahy=833) NEUTROPHILS RELATIVE PERCENT 71 % (BEAKER) (test pkov=059) LYMPHOCYTES RELATIVE PERCENT 12 % (BEAKER) (test bkbo=051) MONOCYTES RELATIVE PERCENT 8 % (BEAKER) (test fuwb=579) EOSINOPHILS RELATIVE PERCENT 7 % (BEAKER) (test goqz=254) BASOPHILS RELATIVE PERCENT 0 % (BEAKER) (test rluo=956) NEUTROPHILS ABSOLUTE COUNT 6.98 K/ L 1.78-5.38 (BEAKER) (test kpnp=676) LYMPHOCYTES ABSOLUTE COUNT 1.20 K/ L 1.32-3.57 (BEAKER) (test ohev=318) MONOCYTES ABSOLUTE COUNT 0.76 K/ L 0.30-0.82 (BEAKER) (test exre=823) EOSINOPHILS ABSOLUTE COUNT 0.72 K/ L 0.04-0.54 (BEAKER) (test fymv=553) BASOPHILS ABSOLUTE COUNT 0.02 K/ L 0.01-0.08 (BEAKER) (test dzmn=540) IMMATURE GRANULOCYTES-RELATIVE 1 % 0-1 PERCENT (BEAKER) (test vjyk=0664) POCT-GLUCOSE [id number] 00:24:00 Test Item Value Reference Range Comments POC-GLUCOSE METER (BEAKER) 372 mg/dL 70-110 Notified TAMERA CISENROS/TESTED AT [facility] (test dajv=3458) [address] [place] [address] POCT-GLUCOSE [id number] 17:40:00 Test Item Value Reference Range Comments POC-GLUCOSE METER (BEAKER) 331 mg/dL 70-110 Notified TAMERA CISNEROS/TESTED AT [facility] (test hzle=1528) [address] [place] [id number] POCT-GLUCOSE [id number] 12:46:00 Test Item Value Reference Range Comments POC-GLUCOSE METER (BEAKER) 198 mg/dL 70-[address] (test digv=9356) [facility] [address] POCT-GLUCOSE [id number] 11:32:00 Test Item Value Reference Range Comments POC-GLUCOSE METER (BEAKER) 166 mg/dL 70-[address] (test iujv=6823) [facility] [address] POCT-GLUCOSE [id number] 09:00:00 Test Item Value Reference Range Comments POC-GLUCOSE METER (BEAKER) 164 mg/dL 70-[address] (test olfa=8643) [facility] [address] CBC W/PLT COUNT & AUTO [id number] 08:33:00 Test Item Value Reference Range Comments WHITE BLOOD CELL COUNT (BEAKER) (test prym=394) 11.1 K/ L 3.5-10.5 RED BLOOD CELL COUNT (BEAKER) (test mckp=332) 2.94 M/ L 4.63-6.08 HEMOGLOBIN (BEAKER) (test ogid=561) 9.3 GM/DL 13.7-17.5 HEMATOCRIT (BEAKER) (test oepo=202) 28.4 % 40.1-51.0 MEAN CORPUSCULAR VOLUME (BEAKER) (test tned=504) 96.6 fL 79.0-92.2 MEAN CORPUSCULAR HEMOGLOBIN (BEAKER) (test 31.6 pg 25.7-32.2 qgtk=871) MEAN CORPUSCULAR HEMOGLOBIN CONC (BEAKER) (test 32.7 GM/DL 32.3-36.5 arvh=279) RED CELL DISTRIBUTION WIDTH (BEAKER) (test 16.9 % 11.6-14.4 hbco=160) PLATELET COUNT (BEAKER) (test umrq=444) 161 K/CU MM 150-450 MEAN PLATELET VOLUME (BEAKER) (test tnbj=876) 11.3 fL 9.4-12.4 NUCLEATED RED BLOOD CELLS (BEAKER) (test 0 /100 WBC 0-0 mwve=694) NEUTROPHILS RELATIVE PERCENT (BEAKER) (test 76 % vlkh=241) LYMPHOCYTES RELATIVE PERCENT (BEAKER) (test 9 % nnzk=567) MONOCYTES RELATIVE PERCENT (BEAKER) (test 7 % ilzb=712) EOSINOPHILS RELATIVE PERCENT (BEAKER) (test 6 % qttd=897) BASOPHILS RELATIVE PERCENT (BEAKER) (test 0 % sqhy=234) NEUTROPHILS ABSOLUTE COUNT (BEAKER) (test 8.47 K/ L 1.78-5.38 mbem=711) LYMPHOCYTES ABSOLUTE COUNT (BEAKER) (test 1.01 K/ L 1.32-3.57 psrc=811) MONOCYTES ABSOLUTE COUNT (BEAKER) (test 0.82 K/ L 0.30-0.82 qewf=026) EOSINOPHILS ABSOLUTE COUNT (BEAKER) (test 0.66 K/ L 0.04-0.54 ssjn=836) BASOPHILS ABSOLUTE COUNT (BEAKER) (test 0.03 K/ L 0.01-0.08 dtej=294) IMMATURE GRANULOCYTES-RELATIVE PERCENT (BEAKER) 1 % 0-1 (test ocvn=8723) B-TYPE NATRIURETIC FACTOR (BNP)2019-04-03 08:31:00 Test Item Value Reference Range Comments B-TYPE NATRIURETIC PEPTIDE (BEAKER) (test 1522 pg/mL 0-100 ufxl=019) COMPREHENSIVE METABOLIC [id number] 08:27:00 Test Item Value Reference Range Comments TOTAL PROTEIN (BEAKER) 6.6 gm/dL 6.0-8.3 (test lrow=102) ALBUMIN (BEAKER) (test 2.2 g/dL 3.5-5.0 iwrz=3235) ALKALINE PHOSPHATASE 141 U/L 40-150 (BEAKER) (test iylr=105) BILIRUBIN TOTAL (BEAKER) 0.4 mg/dL 0.2-1.2 (test rmqc=594) SODIUM (BEAKER) (test 138 meq/L 136-145 aqlw=192) POTASSIUM (BEAKER) (test 4.1 meq/L 3.5-5.1 mtpu=188) CHLORIDE (BEAKER) (test 100 meq/L 98-107 cmgk=835) CO2 (BEAKER) (test 27 meq/L 22-29 sjsr=437) BLOOD UREA NITROGEN 71 mg/dL 7-21 (BEAKER) (test owqu=762) CREATININE (BEAKER) (test 4.01 mg/dL 0.57-1.25 kays=157) GLUCOSE RANDOM (BEAKER) 210 mg/dL 70-105 (test vsmr=700) CALCIUM (BEAKER) (test 8.7 mg/dL 8.4-10.2 Discordant CALCIUM lqrk=939) result Compared to previous result, Clinical correlation required. AST (SGOT) (BEAKER) (test 26 U/L 5-34 hkyc=576) ALT (SGPT) (BEAKER) (test 6 U/L 6-55 aggi=252) EGFR (BEAKER) (test 15 mL/min/1.73 sq m ESTIMATED GFR IS NOT lysf=9865) ACCURATE CREATININE CLEARANCE IN PREDICTING GLOMERULAR FILTRATION RATE. ESTIMATED GFR IS NOT APPLICABLE FOR DIALYSIS PATIENTS. [id number] 08:24:00 Test Item Value Reference Range Comments PHOSPHORUS (BEAKER) (test rgef=550) 3.0 mg/dL 2.3-4.7 [id number] 08:24:00 Test Item Value Reference Range Comments MAGNESIUM (BEAKER) (test ttaf=078) 2.2 mg/dL 1.6-2.6 CALCIUM, [id number] 08:08:00 Test Item Value Reference Range Comments CALCIUM IONIZED (BEAKER) (test hhnc=843) 1.11 mmol/L 1.12-1.27 PH, BLOOD (BEAKER) (test mwlr=9063) 7.41 POCT-GLUCOSE [id number] 05:59:00 Test Item Value Reference Range Comments POC-GLUCOSE METER (BEAKER) 259 mg/dL 70-110 TESTED AT [place] [address] [address] (test euup=2284) [facility] [address] POCT-GLUCOSE [id number] 00:25:00 Test Item Value Reference Range Comments POC-GLUCOSE METER (BEAKER) 382 mg/dL 70-110 Notified TAMERA CISNEROS/TESTED AT [facility] (test dsdd=0521) [facility] [place] [facility] [address] BLOOD [id number] 20:01:00 Test Item Value Reference Range Comments CULTURE (BEAKER) (test cqnq=2799) No growth in 5 days POCT-GLUCOSE [id number] 18:00:00 Test Item Value Reference Range Comments POC-GLUCOSE METER (BEAKER) 292 mg/dL 70-[address] (test mpqv=5883) [place] [address] RAD, CHEST, 1 VIEW, NON [id number] 14:55:00Reason for exam:-> dypsneaShould this be performed at the bedside?->YesFINAL REPORT RAD, CHEST, 1 VIEW, NON DEPT INDICATION: dypsnea COMPARISON: Prior day's exam FINDINGS: Portable frontal view of the chest. IMPRESSION: Support Lines: Stable. Lungs and pleura: Improved inspiratory effort and aeration bilaterally with persistent patchy bilateral airspace disease. Questionable trace bilateral effusions. No pneumothorax.Heart and mediastinum: Stable contours. Stable stent material.Additional findings: None. Signed: JR Le Robert MDReport Verified Date/Time: 04/02/2019 14:55:08 Reading Location : [address] Neuro Reading Room POCT-GLUCOSE [id number] 12:42:00 Test Item Value Reference Range Comments POC-GLUCOSE METER (BEAKER) 298 mg/dL 70-[address] (test lsjo=2076) [place] [id number] POCT-GLUCOSE [id number] 06:16:00 Test Item Value Reference Range Comments POC-GLUCOSE METER (BEAKER) 418 mg/dL 70-110 Notified TAMEAR CISNEROS/TESTED AT [facility] (test hiav=9252) [address] [place], [place] [id number] BASIC METABOLIC [id number] 02:18:00 Test Item Value Reference Range Comments SODIUM (BEAKER) (test 144 meq/L 136-145 lzab=090) POTASSIUM (BEAKER) (test 3.8 meq/L 3.5-5.1 Specimen slightly myoz=392) hemolyzed CHLORIDE (BEAKER) (test 108 meq/L 98-107 wdct=093) CO2 (BEAKER) (test 25 meq/L 22-29 cilt=207) BLOOD UREA NITROGEN 35 mg/dL 7-21 (BEAKER) (test kjyc=766) CREATININE (BEAKER) (test 2.36 mg/dL 0.57-1.25 Specimen slightly hzyv=641) hemolyzed GLUCOSE RANDOM (BEAKER) 265 mg/dL 70-105 (test tufj=794) CALCIUM (BEAKER) (test 7.4 mg/dL 8.4-10.2 ktty=487) EGFR (BEAKER) (test 27 mL/min/1.73 sq m ESTIMATED GFR IS NOT zeue=4914) ACCURATE CREATININE CLEARANCE IN PREDICTING GLOMERULAR FILTRATION RATE. ESTIMATED GFR IS NOT APPLICABLE FOR DIALYSIS PATIENTS. [id number] 02:13:00 Test Item Value Reference Range Comments MAGNESIUM (BEAKER) (test 1.7 mg/dL 1.6-2.6 Specimen slightly hemolyzed tsab=097) [id number] 02:13:00 Test Item Value Reference Range Comments PHOSPHORUS (BEAKER) (test 2.7 mg/dL 2.3-4.7 Specimen slightly hemolyzed ilid=365) CBC W/PLT COUNT & AUTO [id number] 02:00:00 Test Item Value Reference Range Comments WHITE BLOOD CELL COUNT (BEAKER) (test inzo=645) 11.4 K/ L 3.5-10.5 RED BLOOD CELL COUNT (BEAKER) (test ewza=340) 2.96 M/ L 4.63-6.08 HEMOGLOBIN (BEAKER) (test dkvu=257) 9.3 GM/DL 13.7-17.5 HEMATOCRIT (BEAKER) (test gahj=454) 28.6 % 40.1-51.0 MEAN CORPUSCULAR VOLUME (BEAKER) (test uqwz=643) 96.6 fL 79.0-92.2 MEAN CORPUSCULAR HEMOGLOBIN (BEAKER) (test 31.4 pg 25.7-32.2 vfxa=302) MEAN CORPUSCULAR HEMOGLOBIN CONC (BEAKER) (test 32.5 GM/DL 32.3-36.5 jpsz=953) RED CELL DISTRIBUTION WIDTH (BEAKER) (test 16.7 % 11.6-14.4 hhmp=938) PLATELET COUNT (BEAKER) (test lkfm=391) 138 K/CU MM 150-450 MEAN PLATELET VOLUME (BEAKER) (test mfiy=197) 11.4 fL 9.4-12.4 NUCLEATED RED BLOOD CELLS (BEAKER) (test 0 /100 WBC 0-0 faar=147) NEUTROPHILS RELATIVE PERCENT (BEAKER) (test 85 % lnlz=178) LYMPHOCYTES RELATIVE PERCENT (BEAKER) (test 6 % odhg=156) MONOCYTES RELATIVE PERCENT (BEAKER) (test 7 % ftyr=974) EOSINOPHILS RELATIVE PERCENT (BEAKER) (test 1 % uitb=037) BASOPHILS RELATIVE PERCENT (BEAKER) (test 0 % fxat=205) NEUTROPHILS ABSOLUTE COUNT (BEAKER) (test 9.65 K/ L 1.78-5.38 lzit=761) LYMPHOCYTES ABSOLUTE COUNT (BEAKER) (test 0.67 K/ L 1.32-3.57 zrep=497) MONOCYTES ABSOLUTE COUNT (BEAKER) (test 0.80 K/ L 0.30-0.82 tbfp=719) EOSINOPHILS ABSOLUTE COUNT (BEAKER) (test 0.12 K/ L 0.04-0.54 jedz=557) BASOPHILS ABSOLUTE COUNT (BEAKER) (test 0.03 K/ L 0.01-0.08 dses=223) IMMATURE GRANULOCYTES-RELATIVE PERCENT (BEAKER) 1 % 0-1 (test fusy=3387) CALCIUM, [id number] 01:55:00 Test Item Value Reference Range Comments CALCIUM IONIZED (BEAKER) (test igfm=721) 0.93 mmol/L 1.12-1.27 PH, BLOOD (BEAKER) (test zyin=4716) 7.44 POCT-GLUCOSE [id number] 23:56:00 Test Item Value Reference Range Comments POC-GLUCOSE METER (BEAKER) 342 mg/dL 70-110 TESTED AT [facility] [address] [facility] (test ules=2695) [facility] [address] POCT-GLUCOSE [id number] 11:45:00 Test Item Value Reference Range Comments POC-GLUCOSE METER (BEAKER) 270 mg/dL 70-110 TESTED AT [facility] [address] [facility] (test mfyn=5815) [facility] [address] RAD, CHEST, 1 VIEW, NON [id number] 11:20:00Reason for exam:->edemaShould this be performed at the bedside?->YesFINAL REPORT History: Edema Comparison: 03/29/2019 Findings: Interval increase in the bilateral pulmonary opacities suggestive of worsening pulmonary edema. No pleural effusions or pneumothorax. The heart shadow is normal in size. The thoracic aorta is tortuous, unchanged. Stents are present in the left axillary/ subclavian region and in the region of the left innominate vein. Feeding tube passes below the diaphragm with the tip in the region of the proximal duodenum. Signed: Ciara Huffman MDReport Verified Date/Time: 04/01/2019 11:20:07 Reading Location: [facility] Radiology Reading Room MRSA [id number] 10:05:00 Test Item Value Reference Range Comments CULTURE (BEAKER) (test zjhd=8970) No MRSA isolated POCT-GLUCOSE [id number] 06:38:00 Test Item Value Reference Range Comments POC-GLUCOSE METER (BEAKER) 318 mg/dL 70-110 Notified TAMERA CISNEROS/TESTED AT [facility] (test kcau=7588) [address] [facility] [address] POCT-GLUCOSE [id number] 06:07:00 Test Item Value Reference Range Comments POC-GLUCOSE METER (BEAKER) 305 mg/dL 70-110 Will Repeat Test/TESTED AT (test jltr=2030) [facility] [address] [facility] [address] COMPREHENSIVE METABOLIC [id number] 06:06:00 Test Item Value Reference Range Comments TOTAL PROTEIN (BEAKER) 6.6 gm/dL 6.0-8.3 (test xzgx=589) ALBUMIN (BEAKER) (test 2.3 g/dL 3.5-5.0 ogdq=3860) ALKALINE PHOSPHATASE 116 U/L 40-150 (BEAKER) (test gwdw=260) BILIRUBIN TOTAL (BEAKER) 0.4 mg/dL 0.2-1.2 (test wgom=023) SODIUM (BEAKER) (test 141 meq/L 136-145 fzsj=222) POTASSIUM (BEAKER) (test 3.9 meq/L 3.5-5.1 klzc=631) CHLORIDE (BEAKER) (test 101 meq/L 98-107 tqnb=912) CO2 (BEAKER) (test 30 meq/L 22-29 dihm=528) BLOOD UREA NITROGEN 69 mg/dL 7-21 (BEAKER) (test ypqi=663) CREATININE (BEAKER) (test 4.72 mg/dL 0.57-1.25 zipu=428) GLUCOSE RANDOM (BEAKER) 298 mg/dL 70-105 (test oruf=376) CALCIUM (BEAKER) (test 8.7 mg/dL 8.4-10.2 gabx=927) AST (SGOT) (BEAKER) (test 19 U/L 5-34 csqa=407) ALT (SGPT) (BEAKER) (test < U/L 6-55 khli=243) EGFR (BEAKER) (test 12 mL/min/1.73 sq m ESTIMATED GFR IS NOT cplf=7776) ACCURATE CREATININE CLEARANCE IN PREDICTING GLOMERULAR FILTRATION RATE. ESTIMATED GFR IS NOT APPLICABLE FOR DIALYSIS PATIENTS. [id number] 06:03:00 Test Item Value Reference Range Comments PHOSPHORUS (BEAKER) (test xluo=314) 2.0 mg/dL 2.3-4.7 [id number] 06:03:00 Test Item Value Reference Range Comments MAGNESIUM (BEAKER) (test ibis=879) 2.3 mg/dL 1.6-2.6 CBC W/PLT COUNT & AUTO [id number] 05:48:00 Test Item Value Reference Range Comments WHITE BLOOD CELL COUNT (BEAKER) (test rbtx=719) 12.3 K/ L 3.5-10.5 RED BLOOD CELL COUNT (BEAKER) (test ngoz=211) 3.09 M/ L 4.63-6.08 HEMOGLOBIN (BEAKER) (test scml=117) 9.6 GM/DL 13.7-17.5 HEMATOCRIT (BEAKER) (test qdax=139) 29.6 % 40.1-51.0 MEAN CORPUSCULAR VOLUME (BEAKER) (test wrlb=401) 95.8 fL 79.0-92.2 MEAN CORPUSCULAR HEMOGLOBIN (BEAKER) (test 31.1 pg 25.7-32.2 krvs=173) MEAN CORPUSCULAR HEMOGLOBIN CONC (BEAKER) (test 32.4 GM/DL 32.3-36.5 hbks=907) RED CELL DISTRIBUTION WIDTH (BEAKER) (test 16.9 % 11.6-14.4 ofoj=980) PLATELET COUNT (BEAKER) (test unby=874) 161 K/CU MM 150-450 MEAN PLATELET VOLUME (BEAKER) (test vdbv=569) 11.1 fL 9.4-12.4 NUCLEATED RED BLOOD CELLS (BEAKER) (test 0 /100 WBC 0-0 wlgo=060) NEUTROPHILS RELATIVE PERCENT (BEAKER) (test 83 % knic=465) LYMPHOCYTES RELATIVE PERCENT (BEAKER) (test 6 % shyk=717) MONOCYTES RELATIVE PERCENT (BEAKER) (test 9 % yvqa=607) EOSINOPHILS RELATIVE PERCENT (BEAKER) (test 2 % wfqp=584) BASOPHILS RELATIVE PERCENT (BEAKER) (test 0 % tczd=901) NEUTROPHILS ABSOLUTE COUNT (BEAKER) (test 10.11 K/ L 1.78-5.38 znzj=123) LYMPHOCYTES ABSOLUTE COUNT (BEAKER) (test 0.76 K/ L 1.32-3.57 rcgk=884) MONOCYTES ABSOLUTE COUNT (BEAKER) (test 1.04 K/ L 0.30-0.82 qyel=785) EOSINOPHILS ABSOLUTE COUNT (BEAKER) (test 0.20 K/ L 0.04-0.54 akwc=736) BASOPHILS ABSOLUTE COUNT (BEAKER) (test 0.04 K/ L 0.01-0.08 adoe=453) IMMATURE GRANULOCYTES-RELATIVE PERCENT (BEAKER) 1 % 0-1 (test xtlb=1800) CALCIUM, [id number] 05:34:00 Test Item Value Reference Range Comments CALCIUM IONIZED (BEAKER) (test vncg=442) 1.09 mmol/L 1.12-1.27 PH, BLOOD (BEAKER) (test vhec=7198) 7.40 POCT-GLUCOSE [id number] 01:35:00 Test Item Value Reference Range Comments POC-GLUCOSE METER (BEAKER) 345 mg/dL 70-[address] (test uyxo=4678) [place] [address] POCT-GLUCOSE [id number] 18:57:00 Test Item Value Reference Range Comments POC-GLUCOSE METER (BEAKER) 300 mg/dL 70-[address] (test giws=2939) [place] [address] POCT-GLUCOSE [id number] 12:35:00 Test Item Value Reference Range Comments POC-GLUCOSE METER (BEAKER) 293 mg/dL 70-[address] (test xowh=3343) [place] [address] CBC W/PLT COUNT & AUTO [id number] 06:10:00 Test Item Value Reference Range Comments WHITE BLOOD CELL COUNT (BEAKER) (test eapj=610) 10.6 K/ L 3.5-10.5 RED BLOOD CELL COUNT (BEAKER) (test qzte=869) 3.29 M/ L 4.63-6.08 HEMOGLOBIN (BEAKER) (test bpqj=723) 10.2 GM/DL 13.7-17.5 HEMATOCRIT (BEAKER) (test gxgm=393) 31.7 % 40.1-51.0 MEAN CORPUSCULAR VOLUME (BEAKER) (test kwcd=911) 96.4 fL 79.0-92.2 MEAN CORPUSCULAR HEMOGLOBIN (BEAKER) (test 31.0 pg 25.7-32.2 yeyl=561) MEAN CORPUSCULAR HEMOGLOBIN CONC (BEAKER) (test 32.2 GM/DL 32.3-36.5 bgqm=992) RED CELL DISTRIBUTION WIDTH (BEAKER) (test 16.7 % 11.6-14.4 ywjl=712) PLATELET COUNT (BEAKER) (test fobk=034) 155 K/CU MM 150-450 MEAN PLATELET VOLUME (BEAKER) (test ojhk=900) 11.2 fL 9.4-12.4 NUCLEATED RED BLOOD CELLS (BEAKER) (test 0 /100 WBC 0-0 wmng=344) NEUTROPHILS RELATIVE PERCENT (BEAKER) (test 84 % hxip=239) LYMPHOCYTES RELATIVE PERCENT (BEAKER) (test 7 % rpow=508) MONOCYTES RELATIVE PERCENT (BEAKER) (test 8 % lcra=081) EOSINOPHILS RELATIVE PERCENT (BEAKER) (test 0 % ctbm=667) BASOPHILS RELATIVE PERCENT (BEAKER) (test 0 % rxip=032) NEUTROPHILS ABSOLUTE COUNT (BEAKER) (test 8.92 K/ L 1.78-5.38 kzlk=567) LYMPHOCYTES ABSOLUTE COUNT (BEAKER) (test 0.75 K/ L 1.32-3.57 alwu=045) MONOCYTES ABSOLUTE COUNT (BEAKER) (test 0.82 K/ L 0.30-0.82 jamp=141) EOSINOPHILS ABSOLUTE COUNT (BEAKER) (test 0.02 K/ L 0.04-0.54 iren=700) BASOPHILS ABSOLUTE COUNT (BEAKER) (test 0.04 K/ L 0.01-0.08 rtag=648) IMMATURE GRANULOCYTES-RELATIVE PERCENT (BEAKER) 0 % 0-1 (test chsr=5515) POCT-GLUCOSE [id number] 05:47:00 Test Item Value Reference Range Comments POC-GLUCOSE METER (BEAKER) 228 mg/dL 70-[address] (test oqmx=8608) [place] [address] BASIC METABOLIC [id number] 05:34:00 Test Item Value Reference Range Comments SODIUM (BEAKER) (test 141 meq/L 136-145 owog=429) POTASSIUM (BEAKER) (test 3.5 meq/L 3.5-5.1 jrzq=202) CHLORIDE (BEAKER) (test 101 meq/L 98-107 sxcg=036) CO2 (BEAKER) (test 29 meq/L 22-29 yorm=701) BLOOD UREA NITROGEN 47 mg/dL 7-21 (BEAKER) (test cpsh=021) CREATININE (BEAKER) (test 3.83 mg/dL 0.57-1.25 htmt=256) GLUCOSE RANDOM (BEAKER) 216 mg/dL 70-105 (test aatz=947) CALCIUM (BEAKER) (test 8.7 mg/dL 8.4-10.2 iutv=190) EGFR (BEAKER) (test 15 mL/min/1.73 sq m ESTIMATED GFR IS NOT ilfa=4172) ACCURATE CREATININE CLEARANCE IN PREDICTING GLOMERULAR FILTRATION RATE. ESTIMATED GFR IS NOT APPLICABLE FOR DIALYSIS PATIENTS. POCT-GLUCOSE [id number] 00:08:00 Test Item Value Reference Range Comments POC-GLUCOSE METER (BEAKER) 232 mg/dL 70-[address] (test oaee=6538) [place] [address] POCT-GLUCOSE [id number] 18:16:00 Test Item Value Reference Range Comments POC-GLUCOSE METER (BEAKER) 200 mg/dL 70-[address] (test bhbb=1943) [place] [address] RAD, ABDOMEN/KUB, 1 VIEW [id number] 17:43:00Reason for exam:->tube placementFINAL REPORT AP abdomen HISTORY: Tube placement COMPARISON: 03/30/2019 IMPRESSION:Feeding tube present. Tip near gastric antrum, not definitively transpyloric. Bowel gas pattern not well assessed. Signed: Josey Law Verified Date/Time: 03/30/2019 17:43:11 Reading Location: [facility] C013X Ortho Consult Reading Room POCT-GLUCOSE [id number] 12:29:00 Test Item Value Reference Range Comments POC-GLUCOSE METER (BEAKER) 87 mg/dL 70-[address] (test wcsn=4605) [facility] [address] RAD, ABDOMEN/KUB, 1 VIEW [id number] 11:08:00Reason for exam:->feed tube placementFINAL REPORT AP abdomen HISTORY: Feeding tube COMPARISON: 03/29/2019 IMPRESSION:Feeding tube looped in stomach. Bowel gas pattern incompletely assessed. Signed: Josey Law Verified Date/ Time: 03/30/2019 11:08:06 Reading Location: [facility] C013X Ortho Consult Reading Room 11: 08 AMCBC W/PLT COUNT & AUTO [id number] 10:15:00 Test Item Value Reference Range Comments WHITE BLOOD CELL COUNT (BEAKER) (test otkj=673) 15.1 K/ L 3.5-10.5 RED BLOOD CELL COUNT (BEAKER) (test hlrq=830) 3.27 M/ L 4.63-6.08 HEMOGLOBIN (BEAKER) (test disk=668) 10.2 GM/DL 13.7-17.5 HEMATOCRIT (BEAKER) (test smym=058) 31.8 % 40.1-51.0 MEAN CORPUSCULAR VOLUME (BEAKER) (test gphl=082) 97.2 fL 79.0-92.2 MEAN CORPUSCULAR HEMOGLOBIN (BEAKER) (test 31.2 pg 25.7-32.2 ujou=423) MEAN CORPUSCULAR HEMOGLOBIN CONC (BEAKER) (test 32.1 GM/DL 32.3-36.5 hckm=963) RED CELL DISTRIBUTION WIDTH (BEAKER) (test 17.2 % 11.6-14.4 zizt=774) PLATELET COUNT (BEAKER) (test njnf=876) 164 K/CU MM 150-450 MEAN PLATELET VOLUME (BEAKER) (test bafu=716) 11.3 fL 9.4-12.4 NUCLEATED RED BLOOD CELLS (BEAKER) (test 0 /100 WBC 0-0 hawb=689) (CELLAVISION MANUAL DIFF)2019-03-30 10:15:00 Test Item Value Reference Range Comments NEUTROPHILS - REL (CELLAVISION)(BEAKER) (test 83 % fzsn=2357) LYMPHOCYTES - REL (CELLAVISION)(BEAKER) (test 7 % uxxb=9164) MONOCYTES - REL (CELLAVISION)(BEAKER) (test 7 % wcut=4570) BANDS - REL (CELLAVISION)(BEAKER) (test 3 % 0-10 oqyz=6096) NEUTROPHILS - ABS (CELLAVISION)(BEAKER) (test 12.53 K/ul 1.78-5.38 bkeu=7965) LYMPHOCYTES - ABS (CELLAVISION)(BEAKER) (test 1.06 K/ul 1.32-3.57 cwrv=0639) MONOCYTES - ABS (CELLAVISION)(BEAKER) (test 1.06 K/uL 0.30-0.82 oghd=7226) BANDS - ABS (CELLAVISION)(BEAKER) (test 0.45 K/uL 0.00-0.80 czgk=0555) TOTAL COUNTED (BEAKER) (test tsbd=6260) 100 RBC MORPHOLOGY (BEAKER) (test nswm=633) Normal WBC MORPHOLOGY (BEAKER) (test hcam=329) Normal PLT MORPHOLOGY (BEAKER) (test spks=631) Normal ARTIFACT (CELLAVISION)(BEAKER) (test zivt=3777) Present PLATELET CONCENTRATION (CELLAVISION)(BEAKER) Adequate (test eyzh=1009) Received comment: User comments: Slide comments:VANCOMYCIN LEVEL, [id number] 09:50:00 Test Item Value Reference Range Comments VANCOMYCIN RANDOM (BEAKER) (test fvyt=682) 14.1 ug/mL Reference Range: No NormalsBASIC METABOLIC [id number] 08:47:00 Test Item Value Reference Range Comments SODIUM (BEAKER) (test 140 meq/L 136-145 gnpi=763) POTASSIUM (BEAKER) (test 3.5 meq/L 3.5-5.1 lyvd=795) CHLORIDE (BEAKER) (test 100 meq/L 98-107 dgwv=709) CO2 (BEAKER) (test 31 meq/L 22-29 htzv=560) BLOOD UREA NITROGEN 25 mg/dL 7-21 (BEAKER) (test tmjd=392) CREATININE (BEAKER) (test 2.68 mg/dL 0.57-1.25 ykoa=734) GLUCOSE RANDOM (BEAKER) 83 mg/dL 70-105 (test cqhs=688) CALCIUM (BEAKER) (test 8.7 mg/dL 8.4-10.2 hnfm=269) EGFR (BEAKER) (test 23 mL/min/1.73 sq m ESTIMATED GFR IS NOT jhcu=1907) ACCURATE CREATININE CLEARANCE IN PREDICTING GLOMERULAR FILTRATION RATE. ESTIMATED GFR IS NOT APPLICABLE FOR DIALYSIS PATIENTS. POCT-GLUCOSE [id number] 08:34:00 Test Item Value Reference Range Comments POC-GLUCOSE METER (BEAKER) 85 mg/dL 70-[address] (test miwg=4385) [place] [address] POCT-GLUCOSE [id number] 05:36:00 Test Item Value Reference Range Comments POC-GLUCOSE METER (BEAKER) 94 mg/dL 70-[address] (test iwyq=1125) [place] [id number] POCT-GLUCOSE [id number] 00:38:00 Test Item Value Reference Range Comments POC-GLUCOSE METER (BEAKER) 111 mg/dL 70-[address] (test uvkn=3736) [place] [address] RAD, ABDOMEN/KUB, 1 VIEW [id number] 22:56:00Reason for exam:->check corpak placementShould this be performed at the bedside?->YesFINAL REPORT CLINICAL HISTORY: check corpak placement TECHNIQUE: RAD, ABDOMEN/ KUB, 1 VIEW AP COMPARISON: None IMPRESSION: Weighted tip feeding tube tip looping in the gastric fundus. Vascular stent is seen overlying the mediastinum and left upper extremity. Patchy heterogeneous airspace opacities better evaluated on same day plain radiograph the chest.. No distended loops of bowel suggest obstruction. Stool burden throughout the large bowel. Tortuous thoracic aorta with atherosclerotic calcifications. Signed: Indy Sun Verified Date/Time: 03/29/2019 22:56:02 POCT-GLUCOSE [id number] 22:33:00 Test Item Value Reference Range Comments POC-GLUCOSE METER (BEAKER) 126 mg/dL 70-[address] (test bidd=2209) [facility] [address] POCT-GLUCOSE [id number] 22:02:00 Test Item Value Reference Range Comments POC-GLUCOSE METER (BEAKER) 68 mg/dL 70-110 Notified TAMERA CISNEROS/TESTED AT [facility] (test hete=2332) [address] [place], [place] [id number] POCT-GLUCOSE [id number] 17:33:00 Test Item Value Reference Range Comments POC-GLUCOSE METER (BEAKER) 121 mg/dL 70-[address] (test fnpv=0724) [place] [address] RAD, CHEST, 1 VIEW, NON [id number] 17:16:00Reason for exam:->fever, abnormal breath soundsShould this be performed at the bedside?->YesFINAL REPORT AP chest HISTORY: Fever. COMPARISON: 03/27/2018. IMPRESSION: Stable cardiac silhouette. No pneumothorax. Patchy opacities have developed in both lungs which may reflect atelectasis, asymmetric edema or pneumonia. Signed: Josey Law Verified Date/Time: 03/29/2019 17: 16:50 Reading Location: [address] Ortho Consult Reading Room POCT-GLUCOSE [id number] 15:36:00 Test Item Value Reference Range Comments POC-GLUCOSE METER (BEAKER) 79 mg/dL 70-[address] (test bweq=1093) [facility] [address] POCT-GLUCOSE [id number] 12:25:00 Test Item Value Reference Range Comments POC-GLUCOSE METER (BEAKER) 92 mg/dL 70-[address] (test atav=4131) [place] [address] BASIC METABOLIC [id number] 12:23:00 Test Item Value Reference Range Comments SODIUM (BEAKER) (test 139 meq/L 136-145 ljog=039) POTASSIUM (BEAKER) (test 4.3 meq/L 3.5-5.1 wfdr=715) CHLORIDE (BEAKER) (test 103 meq/L 98-107 ufry=943) CO2 (BEAKER) (test 28 meq/L 22-29 nwaw=509) BLOOD UREA NITROGEN 49 mg/dL 7-21 (BEAKER) (test olak=442) CREATININE (BEAKER) (test 4.42 mg/dL 0.57-1.25 vshh=253) GLUCOSE RANDOM (BEAKER) 83 mg/dL 70-105 (test etlh=004) CALCIUM (BEAKER) (test 9.0 mg/dL 8.4-10.2 leus=721) EGFR (BEAKER) (test 13 mL/min/1.73 sq m ESTIMATED GFR IS NOT apqx=8094) ACCURATE CREATININE CLEARANCE IN PREDICTING GLOMERULAR FILTRATION RATE. ESTIMATED GFR IS NOT APPLICABLE FOR DIALYSIS PATIENTS. [id number] 11:53:00 Test Item Value Reference Range Comments POC-GLUCOSE (BEAKER) (test 85 mg/dL 70-[address] tgto=4870) [place] [address] POCT-CALCIUM [id number] 11:53:00 Test Item Value Reference Range Comments POC-CALCIUM IONIZED (BEAKER) 1.22 mmol/L 1.12-1.[address] (test pvkm=3925) [place] [address] [id number] 11:53:00 Test Item Value Reference Range Comments POC-HEMATOCRIT (BEAKER) (test 29 % 40-[address] xatp=0490) [place] [address] [id number] 11:53:00 Test Item Value Reference Range Comments POC-HEMOGLOBIN (BEAKER) 9.9 g/dL 13.0-16.[address] (test llnm=3025) [place] [address]TESTED AT [place] [address] POCT-BLOOD GASES, [id number] 11:52:00 Test Item Value Reference Range Comments TEMP, CELSIUS-POC (BEAKER) 37.0 (test jrqs=0203) FIO2-POC (BEAKER) (test TESTED AT [address] ghqt=2493) [place] [address] PH, VENOUS-POC (BEAKER) 7.366 7.320-7.420 (test yusw=1403) PCO2, VENOUS-POC (BEAKER) 45.9 mm Hg 41.0-51.0 (test rhsk=1859) PO2, VENOUS-POC (BEAKER) 30.0 mm Hg 25.0-40.0 (test doii=9292) SO2, VENOUS-POC (BEAKER) 56.0 % 40.0-70.0 (test ecvv=9518) HCO3, VENOUS-POC (BEAKER) 26.3 meq/L 21.0-29.0 (test ektt=3105) BASE EXCESS, VENOUS-POC 1.0 meq/L -2.0-3.0 (BEAKER) (test dhpb=6861) [id number] 11:52:00 Test Item Value Reference Range Comments POC-SODIUM (BEAKER) (test 140 meq/L 135-[address] gwcv=8089) [place] [address] [id number] 11:52:00 Test Item Value Reference Range Comments POC-POTASSIUM (BEAKER) (test 4.2 meq/L 3.6-5.5 [address] [address] ewuk=[id number]) [place] [id number] POCT-LACTIC ACID, [id number] 11:52:00 Test Item Value Reference Range Comments POC-LACTIC ACID, VENOUS 0.9 mmol/L 0.9-1.[address] ([facility]) (test hhcd=2678) [place] [address] POCT-GLUCOSE [id number] 10:25:00 Test Item Value Reference Range Comments POC-GLUCOSE METER (BEAKER) 103 mg/dL 70-[address] (test jxkb=2594) [place] [address] CBC W/PLT COUNT & AUTO [id number] 08:44:00 Test Item Value Reference Range Comments WHITE BLOOD CELL COUNT (BEAKER) (test cbgn=289) 16.7 K/ L 3.5-10.5 RED BLOOD CELL COUNT (BEAKER) (test vuft=214) 3.17 M/ L 4.63-6.08 HEMOGLOBIN (BEAKER) (test znnz=000) 10.2 GM/DL 13.7-17.5 HEMATOCRIT (BEAKER) (test pxlg=751) 31.6 % 40.1-51.0 MEAN CORPUSCULAR VOLUME (BEAKER) (test eudm=702) 99.7 fL 79.0-92.2 MEAN CORPUSCULAR HEMOGLOBIN (BEAKER) (test 32.2 pg 25.7-32.2 lowd=271) MEAN CORPUSCULAR HEMOGLOBIN CONC (BEAKER) (test 32.3 GM/DL 32.3-36.5 jpcs=099) RED CELL DISTRIBUTION WIDTH (BEAKER) (test 17.3 % 11.6-14.4 zeea=698) PLATELET COUNT (BEAKER) (test bwdn=155) 184 K/CU MM 150-450 MEAN PLATELET VOLUME (BEAKER) (test uhed=962) 10.9 fL 9.4-12.4 NUCLEATED RED BLOOD CELLS (BEAKER) (test 0 /100 WBC 0-0 vjsi=503) (CELLAVISION MANUAL DIFF)2019-03-29 08:44:00 Test Item Value Reference Range Comments NEUTROPHILS - REL (CELLAVISION)(BEAKER) (test 89 % riaq=4229) LYMPHOCYTES - REL (CELLAVISION)(BEAKER) (test 5 % xcks=7738) MONOCYTES - REL (CELLAVISION)(BEAKER) (test 2 % sdue=4578) EOSINOPHILS - REL (CELLAVISION)(BEAKER) (test 3 % fcng=8233) BASOPHILS - REL (CELLAVISION)(BEAKER) (test 1 % qjxj=0182) NEUTROPHILS - ABS (CELLAVISION)(BEAKER) (test 14.86 K/ul 1.78-5.38 henk=0366) LYMPHOCYTES - ABS (CELLAVISION)(BEAKER) (test 0.84 K/ul 1.32-3.57 ggsk=1492) MONOCYTES - ABS (CELLAVISION)(BEAKER) (test 0.33 K/uL 0.30-0.82 unma=5519) EOSINOPHILS - ABS (CELLAVISION)(BEAKER) (test 0.50 K/uL 0.04-0.54 gmrn=0731) BASOPHILS - ABS (CELLAVISION)(BEAKER) (test 0.17 K/uL 0.01-0.08 roni=0969) TOTAL COUNTED (BEAKER) (test sjol=7936) 100 SMUDGE CELLS (BEAKER) (test ltuj=3762) Present GIANT PLATELETS (BEAKER) (test ckme=180) Present ANISOCYTOSIS (BEAKER) (test mrvw=036) 1+ few POIKILOCYTES (BEAKER) (test zgah=071) 2+ moderate CECILIA CELLS (BEAKER) (test ihbk=168) 2+ moderate ARTIFACT (CELLAVISION)(BEAKER) (test pkuy=1777) Present PLATELET CONCENTRATION (CELLAVISION)(BEAKER) Adequate (test xdot=0674) Received comment: User comments: Slide comments:POCT-GLUCOSE [id number] 08: 29:00 Test Item Value Reference Range Comments POC-GLUCOSE METER (BEAKER) 121 mg/dL 70-[address] (test dvvj=5678) [facility] [address] COMPREHENSIVE METABOLIC [id number] 06:34:00 Test Item Value Reference Range Comments TOTAL PROTEIN (BEAKER) 6.9 gm/dL 6.0-8.3 (test egid=815) ALBUMIN (BEAKER) (test 2.6 g/dL 3.5-5.0 drgl=2287) ALKALINE PHOSPHATASE 90 U/L 40-150 (BEAKER) (test hnmx=633) BILIRUBIN TOTAL (BEAKER) 0.4 mg/dL 0.2-1.2 (test bakn=717) SODIUM (BEAKER) (test 137 meq/L 136-145 pvap=786) POTASSIUM (BEAKER) (test 4.3 meq/L 3.5-5.1 zwpg=353) CHLORIDE (BEAKER) (test 104 meq/L 98-107 oqrp=733) CO2 (BEAKER) (test 24 meq/L 22-29 cujz=591) BLOOD UREA NITROGEN 45 mg/dL 7-21 (BEAKER) (test cyji=505) CREATININE (BEAKER) (test 4.11 mg/dL 0.57-1.25 chkz=623) GLUCOSE RANDOM (BEAKER) 130 mg/dL 70-105 (test imwz=755) CALCIUM (BEAKER) (test 8.8 mg/dL 8.4-10.2 eunt=746) AST (SGOT) (BEAKER) (test 24 U/L 5-34 yhut=727) ALT (SGPT) (BEAKER) (test < U/L 6-55 gzck=912) EGFR (BEAKER) (test 14 mL/min/1.73 sq m ESTIMATED GFR IS NOT kkzg=4589) ACCURATE CREATININE CLEARANCE IN PREDICTING GLOMERULAR FILTRATION RATE. ESTIMATED GFR IS NOT APPLICABLE FOR DIALYSIS PATIENTS. [id number] 06:32:00 Test Item Value Reference Range Comments PHOSPHORUS (BEAKER) (test xewq=722) 2.5 mg/dL 2.3-4.7 [id number] 06:32:00 Test Item Value Reference Range Comments MAGNESIUM (BEAKER) (test bvqf=035) 2.1 mg/dL 1.6-2.6 CALCIUM, [id number] 05:35:00 Test Item Value Reference Range Comments CALCIUM IONIZED (BEAKER) (test srbg=328) 1.09 mmol/L 1.12-1.27 PH, BLOOD (BEAKER) (test eacz=7108) 7.42 POCT-GLUCOSE [id number] 21:55:00 Test Item Value Reference Range Comments POC-GLUCOSE METER (BEAKER) 202 mg/dL 70-[address] (test zcxh=7480) [facility] [address] POCT-GLUCOSE [id number] 17:33:00 Test Item Value Reference Range Comments POC-GLUCOSE METER (BEAKER) 141 mg/dL 70-[address] (test mzhx=0927) [facility] [address] C-REACTIVE [id number] 16:53:00 Test Item Value Reference Range Comments C-REACTIVE PROTEIN (BEAKER) (test ahoh=211) 22.40 mg/dL 0.00-0.50 CBC W/PLT COUNT & AUTO [id number] 15:35:00 Test Item Value Reference Range Comments WHITE BLOOD CELL COUNT (BEAKER) (test uucf=930) 17.3 K/ L 3.5-10.5 RED BLOOD CELL COUNT (BEAKER) (test ebrz=988) 3.33 M/ L 4.63-6.08 HEMOGLOBIN (BEAKER) (test fiye=398) 10.4 GM/DL 13.7-17.5 HEMATOCRIT (BEAKER) (test yvrk=652) 32.9 % 40.1-51.0 MEAN CORPUSCULAR VOLUME (BEAKER) (test aost=933) 98.8 fL 79.0-92.2 MEAN CORPUSCULAR HEMOGLOBIN (BEAKER) (test 31.2 pg 25.7-32.2 jcpg=778) MEAN CORPUSCULAR HEMOGLOBIN CONC (BEAKER) (test 31.6 GM/DL 32.3-36.5 qgim=773) RED CELL DISTRIBUTION WIDTH (BEAKER) (test 16.5 % 11.6-14.4 obcm=926) PLATELET COUNT (BEAKER) (test cxim=991) 190 K/CU MM 150-450 MEAN PLATELET VOLUME (BEAKER) (test omow=275) 11.1 fL 9.4-12.4 NUCLEATED RED BLOOD CELLS (BEAKER) (test 0 /100 WBC 0-0 pawh=487) (CELLAVISION MANUAL DIFF)2019-03-28 15:35:00 Test Item Value Reference Range Comments NEUTROPHILS - REL (CELLAVISION)(BEAKER) (test 93 % wdkn=3808) LYMPHOCYTES - REL (CELLAVISION)(BEAKER) (test 4 % dore=1406) BANDS - REL (CELLAVISION)(BEAKER) (test 3 % 0-10 xovm=0538) NEUTROPHILS - ABS (CELLAVISION)(BEAKER) (test 16.09 K/ul 1.78-5.38 ihuj=9570) LYMPHOCYTES - ABS (CELLAVISION)(BEAKER) (test 0.69 K/ul 1.32-3.57 imek=5040) BANDS - ABS (CELLAVISION)(BEAKER) (test 0.52 K/uL 0.00-0.80 jbrf=2723) TOTAL COUNTED (BEAKER) (test item=7688) 100 WBC MORPHOLOGY (BEAKER) (test cgil=386) Normal PLT MORPHOLOGY (BEAKER) (test trgu=128) Normal ANISOCYTOSIS (BEAKER) (test ktsc=245) 1+ few MACROCYTES (BEAKER) (test hisa=601) 1+ few POIKILOCYTES (BEAKER) (test eojq=500) 1+ few ELLIPTOCYTES (BEAKER) (test mjsr=870) 1+ few CECILIA CELLS (BEAKER) (test sozc=594) 1+ few ARTIFACT (CELLAVISION)(BEAKER) (test xqxm=3525) Present PLATELET CONCENTRATION (CELLAVISION)(BEAKER) Adequate (test ncea=3658) Received comment: User comments: Slide comments:POCT-GLUCOSE [id number] 12: 10:00 Test Item Value Reference Range Comments POC-GLUCOSE METER (BEAKER) 140 mg/dL 70-[address] (test hjvh=2294) [place] [address] HEMOGLOBIN [id number] 09:31:00 Test Item Value Reference Range Comments HEMOGLOBIN A1C (BEAKER) (test ardc=967) 6.6 % 4.3-6.1 POCT-GLUCOSE [id number] 09:30:00 Test Item Value Reference Range Comments POC-GLUCOSE METER (BEAKER) 79 mg/dL 70-[address] (test qqvy=1232) [place] [id number] BASIC METABOLIC [id number] 08:30:00 Test Item Value Reference Range Comments SODIUM (BEAKER) (test 141 meq/L 136-145 stzq=282) POTASSIUM (BEAKER) (test 4.3 meq/L 3.5-5.1 Specimen slightly epup=191) hemolyzed CHLORIDE (BEAKER) (test 106 meq/L 98-107 gnjh=931) CO2 (BEAKER) (test 26 meq/L 22-29 hdzc=683) BLOOD UREA NITROGEN 30 mg/dL 7-21 (BEAKER) (test ttji=722) CREATININE (BEAKER) (test 2.98 mg/dL 0.57-1.25 Specimen slightly qsom=137) hemolyzed GLUCOSE RANDOM (BEAKER) 31 mg/dL 70-105 (test ppsw=580) CALCIUM (BEAKER) (test 8.9 mg/dL 8.4-10.2 kzae=241) EGFR (BEAKER) (test 21 mL/min/1.73 sq m ESTIMATED GFR IS NOT dshr=7592) ACCURATE CREATININE CLEARANCE IN PREDICTING GLOMERULAR FILTRATION RATE. ESTIMATED GFR IS NOT APPLICABLE FOR DIALYSIS PATIENTS. [id number] 08:18:00 Test Item Value Reference Range Comments MAGNESIUM (BEAKER) (test 2.0 mg/dL 1.6-2.6 Specimen slightly hemolyzed hjdq=307) [id number] 08:18:00 Test Item Value Reference Range Comments PHOSPHORUS (BEAKER) (test 3.2 mg/dL 2.3-4.7 Specimen slightly hemolyzed dnfb=600) POCT-GLUCOSE [id number] 08:16:00 Test Item Value Reference Range Comments POC-GLUCOSE METER (BEAKER) 46 mg/dL 70-110 TESTED AT [facility] [address] [place] [address] (test fway=0379) [facility] [address] POCT-GLUCOSE [id number] 08:04:00 Test Item Value Reference Range Comments POC-GLUCOSE METER (BEAKER) 35 mg/dL 70-110 Notified TAMERA CISNEROS/TESTED AT [facility] (test gqxm=2894) [address] [address] TROPONIN [id number] 07:54:00 Test Item Value Reference Range Comments TROPONIN I (BEAKER) (test hrkp=469) 0.04 ng/mL 0.00-0.03 Troponin I (TnI) levels must [...] failure, acidosis, acute neurological disease, and persistent tachyarrhythmia.PTH, [id number] 07:31:00 Test Item Value Reference Range Comments PARATHYROID HORMONE INTACT (BEAKER) (test 6.7 pg/mL 8.5-72.5 hrvx=379) LACTIC ACID, [id number] 07:22:00 Test Item Value Reference Range Comments LACTATE BLOOD VENOUS (2) 0.9 mmol/L 0.5-2.2 Specimen slightly hemolyzed (BEAKER) (test upqo=3456) POCT-GLUCOSE [id number] 23:51:00 Test Item Value Reference Range Comments POC-GLUCOSE METER (BEAKER) 97 mg/dL 70-110 TESTED AT [facility] [address] [facility] (test umkz=6971) [facility] [address] MR, BRAIN, WITHOUT [id number] 21:41:00FINAL REPORT MRI Brain without contrast CLINICAL HISTORY: Stroke Technique: MRI of the brain utilizing axial T2, FLAIR, GRE, DWI; sagittal and coronal T1-weighted images. Comparisons: None Findings: No evidence of acute ischemic infarct. Basal ganglia T2*hypointensities rim withcentral T2 hyperintensity likely due to senescent calcifications, chronic microhemorrhage and/or chronic ischemia versus sequela of toxic metabolic encephalopathy (CT correlation would be confirmatory). No mass or midline shift. Moderate parenchymal volume loss with proportional ventricular and sulcalprominence. Patchy cerebral white matter T2 FLAIR hyperintensities are present. Pontine patchy T2 hyperintensity likely sequela of chronic ischemia also noted. Right maxillary sinus subtotal opacification. Scattered ethmoid and left maxillary sinus mucosal thickening. Small bilateral mastoid effusionsare present. No destructive osseous lesion identified. There are degenerative changes of the upper cervical spine. IMPRESSION: No evidence of acute infarct . Nonspecific cerebral white matter T2 FLAIR hyperintensities typical of chronic microvascular ischemic changes. Presumed basal ganglia senescent calcification. Differential diagnosis discussed above. Paranasal sinus mucosal disease. Bilateral mastoid effusions. Signed: Gautam Hays MDReport Verified Date/Time: 03/27/2019 21:41:47 EEG AWAKE AND [id number] 20:48:00Reason for exam:->AMSDate(s) of EE03/27 DATE OF REPORT: 03/27/2019 ACC: [id number] EEG Number: [id number] TestLocation: Inpatient Room Start time: 03/27/2019 08:46 Stop time: 03/27/2019 09 :07 ICD-10: R41.82 CPT Code: 99002 HISTORY: 73 y.o. male with Parkinson's dementia, end stage renal disease, diabetes mellitus who was found unresponsive. MEDICATIONS THAT COULD AFFECT EEG: Amlodipine, atorvastatin, carbidopa-levodopa, metoprolol, nicardipine. TECHNICAL SUMMARY: This is a digital video-EEG recorded with 32 input channels reviewed with bipolar and referential montages using the modified combinatorial system nomenclature. DESCRIPTION OF RECORD: During the maximally awake state, predominantly 5-6 Hz activity is seen bilaterally. Chewing or teethgrinding artifact is seen intermittently. Drowsiness was characterized by decreased eye blinks and EMG artifact. Stage 2 sleep was not reached. SIGNIFICANT VIDEO EVENTS: None SIGNIFICANT ELECTROCARDIOGRAM EVENTS: None HV: Hyperventilationwas not performed. PHOTIC STIMULATION: Photic stimulation was not performed. IMPRESSION: Abnormal Awake and Drowsy EEG 1. Continuous, mild generalized slowing of the background rhythms. 2.There is no evidence for epileptiform abnormalities, including absence of electrographic seizures. COMMENT: Generalized slowing supports an underlying mild encephalopathy. An EEG without epileptiform discharges does not exclude the possibility of epilepsy. It the clinical suspicion of epilepsy remains, consider additional EEG recordings. Priyank Matute MD Neurophysiology Fellow Winifred Mendes MD, PhD Epilepsy Attending Electronically signed by: WINIFRED MENDES MD on 08:48 PMPOCT-GLUCOSE [id number] 18:10:00 Test Item Value Reference Range Comments POC-GLUCOSE METER ([facility]) 92 mg/dL 70-110 TESTED AT [facility] [address] [facility] (test rnti=7937) [facility] [address] HEMOGLOBIN [id number] 14:49:00 Test Item Value Reference Range Comments HEMOGLOBIN A1C ([facility]) (test gaim=658) 6.8 % 4.3-6.1 FastingHEPATITIS B SURFACE [id number] 14:32:00 Test Item Value Reference Range Comments HEPATITIS B SURFACE ANTIGEN (2) ([facility]) (test Nonreactive Nonreactive ehws=6605) TROPONIN [id number] 14:18:00 Test Item Value Reference Range Comments TROPONIN I ([facility]) (test whly=664) 0.06 ng/mL 0.00-0.03 Troponin I (TnI) levels [...] acidosis, acute neurological disease, and persistent tachyarrhythmia.POCT-GLUCOSE [id number] 13:47:00 Test Item Value Reference Range Comments POC-GLUCOSE METER (BEAKER) 110 mg/dL 70-110 TESTED AT [facility] [address] [facility] (test bxaq=7405) [facility] [address] POCT-GLUCOSE [id number] 13:25:00 Test Item Value Reference Range Comments POC-GLUCOSE METER (BEAKER) 50 mg/dL 70-[address] (test oxsl=0237) [facility] [address] POCT-GLUCOSE [id number] 12:41:00 Test Item Value Reference Range Comments POC-GLUCOSE METER (BEAKER) 50 mg/dL 70-110 Notified TAMERA CISNEROS/TESTED AT [facility] (test dzbd=7864) [address] [place] [address] RAD, CHEST, 1 VIEW, NON [id number] 09:41:00Reason for exam:->cardiac evalShould this be performed at the bedside?->YesFINAL REPORT Chest, 1 view. History: Cardiac evaluation. Comparison: 08/22/2018. Discussion: The trachea is midline. The lungs are symmetrically expanded without evidence for large focal consolidation, pneumothorax, or significant pleural effusion. The cardiomediastinal silhouette is within normal limits. Atherosclerotic calcifications noted within the thoracic aorta. Vascularstents noted overlying the left axillary, subclavian, and brachiocephalic regions. No acute osseous abdomen bodies identified. IMPRESSION: No acute cardiopulmonary process identified. Signed: Eren Dominguez MDReport Verified Date/Time: 2018 09:41:15 Reading Location: [facility] Radiology Reading Room VITAMIN [id number] 06:12:00 Test Item Value Reference Range Comments VITAMIN B12 (BEAKER) (test baqh=054) 1279 pg/mL 213-816 TSH/FREE T4 IF [id number] 06:12:00 Test Item Value Reference Range Comments THYROID STIMULATING HORMONE (BEAKER) (test 1.60 uIU/mL 0.35-4.94 oxtq=704) POCT-GLUCOSE [id number] 05:50:00 Test Item Value Reference Range Comments POC-GLUCOSE METER (BEAKER) 71 mg/dL 70-110 TESTED AT [facility] [address] (test wsev=1686) [facility] [address] B-TYPE NATRIURETIC FACTOR (BNP)2019-03-27 05:46:00 Test Item Value Reference Range Comments B-TYPE NATRIURETIC PEPTIDE (BEAKER) (test 332 pg/mL 0-100 cnxi=663) BASIC METABOLIC [id number] 03:28:00 Test Item Value Reference Range Comments SODIUM (BEAKER) (test 132 meq/L 136-145 foem=780) POTASSIUM (BEAKER) (test 4.0 meq/L 3.5-5.1 fyom=411) CHLORIDE (BEAKER) (test 98 meq/L 98-107 jjkz=219) CO2 (BEAKER) (test 25 meq/L 22-29 rqop=563) BLOOD UREA NITROGEN 55 mg/dL 7-21 (BEAKER) (test dhmy=442) CREATININE (BEAKER) (test 4.09 mg/dL 0.57-1.25 rdqr=615) GLUCOSE RANDOM (BEAKER) 64 mg/dL 70-105 (test qcvq=492) CALCIUM (BEAKER) (test 8.7 mg/dL 8.4-10.2 vybg=494) EGFR (BEAKER) (test 14 mL/min/1.73 sq m ESTIMATED GFR IS NOT pgev=6077) ACCURATE CREATININE CLEARANCE IN PREDICTING GLOMERULAR FILTRATION RATE. ESTIMATED GFR IS NOT APPLICABLE FOR DIALYSIS PATIENTS. FastingLIPID [id number] 03:28:00 Test Item Value Reference Range Comments TRIGLYCERIDES (BEAKER) (test pdvc=256) 38 mg/dL CHOLESTEROL (BEAKER) (test osox=333) 54 mg/dL HDL CHOLESTEROL (BEAKER) (test xwdg=912) 27 mg/dL LDL CHOLESTEROL CALCULATED (BEAKER) (test nqcp=689) 19 mg/dL Triglyceride Reference Range: Low Risk <150 Borderline 150- 199 High Risk 200-499 Very High Risk >=500Cholesterol Reference Range: Low Risk <200 Borderline 200-239 High Risk > 240HDL Cholesterol Reference Range: Low Risk >=60 High Risk <40LDL Cholesterol Reference Range: Optimal <100 Near Optimal 100-129 Borderline 130-159 High 160-189 Very High >=190 FastingHEPATIC FUNCTION [id number] 03:28:00 Test Item Value Reference Range Comments TOTAL PROTEIN (BEAKER) (test tpdd=049) 6.2 gm/dL 6.0-8.3 ALBUMIN (BEAKER) (test wdik=8901) 2.4 g/dL 3.5-5.0 BILIRUBIN TOTAL (BEAKER) (test hhzp=951) 0.4 mg/dL 0.2-1.2 BILIRUBIN DIRECT (BEAKER) (test jtaa=321) 0.2 mg/dL 0.1-0.5 ALKALINE PHOSPHATASE (BEAKER) (test jkda=383) 85 U/L 40-150 AST (SGOT) (BEAKER) (test iovn=690) 25 U/L 5-34 ALT (SGPT) (BEAKER) (test vewj=875) < U/L 6-55 FastingLACTIC ACID, [id number] 03:12:00 Test Item Value Reference Range Comments LACTATE BLOOD VENOUS (2) (BEAKER) (test 0.4 mmol/L 0.5-2.2 xplh=0539) [id number] 02:54:00 Test Item Value Reference Range Comments PARTIAL THROMBOPLASTIN TIME (BEAKER) (test 45.0 seconds 22.5-36.0 rlxg=670) PROTHROMBIN TIME/[id number] 02:53:00 Test Item Value Reference Range Comments PROTIME (BEAKER) (test jqqq=411) 16.1 seconds 11.9-14.2 INR (BEAKER) (test usuc=746) 1.4 <=5.9 Effective 02/05/2019: PT Reference Range ChangeNew: 11.9-14.2 Previous: 11.7- 14.7RECOMMENDED COUMADIN/WARFARIN INR THERAPY RANGESSTANDARD DOSE: 2.0-3.0 Includes: PROPHYLAXIS for venous thrombosis, systemic embolization; TREATMENT for venous thrombosis and/or pulmonary embolus.HIGH RISK: Target INR is2.5-3.5 for patients wiht mechanical heart valves.CBC W/PLT COUNT & AUTO [id number] 02:37:00 Test Item Value Reference Range Comments WHITE BLOOD CELL COUNT (BEAKER) (test effl=451) 8.5 K/ L 3.5-10.5 RED BLOOD CELL COUNT (BEAKER) (test ubmi=817) 3.15 M/ L 4.63-6.08 HEMOGLOBIN (BEAKER) (test jtdw=328) 9.8 GM/DL 13.7-17.5 HEMATOCRIT (BEAKER) (test qkio=444) 30.2 % 40.1-51.0 MEAN CORPUSCULAR VOLUME (BEAKER) (test fvth=532) 95.9 fL 79.0-92.2 MEAN CORPUSCULAR HEMOGLOBIN (BEAKER) (test 31.1 pg 25.7-32.2 xxxk=358) MEAN CORPUSCULAR HEMOGLOBIN CONC (BEAKER) (test 32.5 GM/DL 32.3-36.5 dkfu=228) RED CELL DISTRIBUTION WIDTH (BEAKER) (test 16.2 % 11.6-14.4 rtfa=709) PLATELET COUNT (BEAKER) (test ygse=909) 161 K/CU MM 150-450 MEAN PLATELET VOLUME (BEAKER) (test qixa=006) 10.6 fL 9.4-12.4 NUCLEATED RED BLOOD CELLS (BEAKER) (test 0 /100 WBC 0-0 wotq=915) NEUTROPHILS RELATIVE PERCENT (BEAKER) (test 60 % rano=797) LYMPHOCYTES RELATIVE PERCENT (BEAKER) (test 16 % knhz=099) MONOCYTES RELATIVE PERCENT (BEAKER) (test 11 % rygk=585) EOSINOPHILS RELATIVE PERCENT (BEAKER) (test 13 % pftl=236) BASOPHILS RELATIVE PERCENT (BEAKER) (test 1 % zepq=221) NEUTROPHILS ABSOLUTE COUNT (BEAKER) (test 5.03 K/ L 1.78-5.38 rkjq=784) LYMPHOCYTES ABSOLUTE COUNT (BEAKER) (test 1.32 K/ L 1.32-3.57 czna=691) MONOCYTES ABSOLUTE COUNT (BEAKER) (test 0.93 K/ L 0.30-0.82 both=788) EOSINOPHILS ABSOLUTE COUNT (BEAKER) (test 1.09 K/ L 0.04-0.54 jjxm=671) BASOPHILS ABSOLUTE COUNT (BEAKER) (test 0.05 K/ L 0.01-0.08 rzaq=466) IMMATURE GRANULOCYTES-RELATIVE PERCENT (BEAKER) 0 % 0-1 (test tgfv=9132) POCT-GLUCOSE [id number] 01:56:00 Test Item Value Reference Range Comments POC-GLUCOSE METER (BEAKER) 100 mg/dL 70-110 TESTED AT [facility] [address] (test bzjt=8636) [facility] [address] RAD, FOOT, MIN 3 VIEWS, [id number] 12:54:00Reason for exam:->s/p TMAFINAL REPORT Right foot, three images HISTORY: Intubation COMPARISON: 09/06/2018 IMPRESSION:Transmetatarsal amputation of all digits. No appreciable fracture. No dislocation. Bandage material present. Vascular consultation. Signed: Josey Laweport Verified Date/Time: 12:54:24 Reading Location: [address] Transitional Reading Room AFB CULTURE + [id number] 10:29:00 Test Item Value Reference Range Comments CULTURE (BEAKER) (test No acid-fast bacilli isolated gwni=5813) in 42 days AFB SMEAR (BEAKER) (test No acid fast bacilli seen iwpl=260) AFB CULTURE + [id number] 10:29:00 Test Item Value Reference Range Comments CULTURE (BEAKER) (test No acid-fast bacilli isolated mscu=8453) in 42 days AFB SMEAR (BEAKER) (test No acid fast bacilli seen rcnu=598) AFB CULTURE + [id number] 10:29:00 Test Item Value Reference Range Comments CULTURE (BEAKER) (test No acid-fast bacilli isolated cmnk=4380) in 42 days AFB SMEAR (BEAKER) (test No acid fast bacilli seen kepx=692) FUNGUS CULTURE + [id number] 16:39:00 Test Item Value Reference Range Comments CULTURE (BEAKER) (test No fungus isolated in 28 days nphj=0895) FUNGUS SMEAR (BEAKER) (test No fungi seen tgff=7350) FUNGUS CULTURE + [id number] 16:39:00 Test Item Value Reference Range Comments CULTURE (BEAKER) (test No fungus isolated in 28 days ggdr=1317) FUNGUS SMEAR (BEAKER) (test No fungi seen vdgr=5683) FUNGUS CULTURE + [id number] 16:39:00 Test Item Value Reference Range Comments CULTURE (BEAKER) (test No fungus isolated in 28 days tqco=5677) FUNGUS SMEAR (BEAKER) (test No fungi seen enmy=6953) TISSUE [id number] 20:00:00Surgical Pathology Report Case: [id number] Authorizing Provider: Aba Millan DPM Collected: 09/13/2018 0820 Ordering Location: [facility] PERIOPERATIVE Received: 09/13/2018 0926 SERVICES Pathologist: Carrol Trammell MD Specimen: Metatarsal, Right BONE, RIGHT FOOT , METATARSAL, DEBRIDEMENT:- GANGRENOUS NECROSIS- OSTEOMYELITIS- NEGATIVE FOR MALIGNANCY Signing Pathologist Direct Phone Line: [phone] signed by Carrol Trammell MD on 2018 at 8:00 [id number] surgical woundRight metatarsal. Specimen is received in formalin-filled container labeled with the patient's information and labeled "right metatarsal" and consists of multiple fragments of ch hemorrhagic bone and soft tissue measuring 2.5 x 2 x 1 cm in aggregate. Specimen is sectioned and submitted entirely A1-A4 for decalcification. CG/bc Performed.POCT-GLUCOSE [id number] 13:34:00 Test Item Value Reference Range Comments POC-GLUCOSE METER (BEAKER) 148 mg/dL 70-110 TESTED AT [place] [id number] [facility] (test noid=8958) [facility] [id number] POCT-GLUCOSE [id number] 08:11:00 Test Item Value Reference Range Comments POC-GLUCOSE METER (BEAKER) 139 mg/dL 70-110 TESTED AT [facility] [address] [facility] (test vbzj=2271) [facility] [id number] BASIC METABOLIC [id number] 04:47:00 Test Item Value Reference Range Comments SODIUM (BEAKER) (test 136 meq/L 136-145 cphb=211) POTASSIUM (BEAKER) (test 4.3 meq/L 3.5-5.1 ywyy=892) CHLORIDE (BEAKER) (test 97 meq/L 98-107 pofq=878) CO2 (BEAKER) (test 27 meq/L 22-29 vldo=823) BLOOD UREA NITROGEN 43 mg/dL 7-21 (BEAKER) (test bcsg=562) CREATININE (BEAKER) (test 5.04 mg/dL 0.57-1.25 kekh=529) GLUCOSE RANDOM (BEAKER) 94 mg/dL 70-105 (test icax=801) CALCIUM (BEAKER) (test 8.7 mg/dL 8.4-10.2 datd=158) EGFR (BEAKER) (test 11 mL/min/1.73 sq m ESTIMATED GFR IS NOT anfi=8153) ACCURATE CREATININE CLEARANCE IN PREDICTING GLOMERULAR FILTRATION RATE. ESTIMATED GFR IS NOT APPLICABLE FOR DIALYSIS PATIENTS. [id number] 04:46:00 Test Item Value Reference Range Comments PHOSPHORUS (BEAKER) (test ltwe=086) 3.2 mg/dL 2.3-4.7 [id number] 04:46:00 Test Item Value Reference Range Comments MAGNESIUM (BEAKER) (test kwmg=483) 2.1 mg/dL 1.6-2.6 CBC W/PLT COUNT & AUTO [id number] 04:39:00 Test Item Value Reference Range Comments WHITE BLOOD CELL COUNT (BEAKER) (test vcie=485) 7.8 K/ L 3.5-10.5 RED BLOOD CELL COUNT (BEAKER) (test uiwx=777) 2.72 M/ L 4.63-6.08 HEMOGLOBIN (BEAKER) (test ftsr=082) 8.9 GM/DL 13.7-17.5 HEMATOCRIT (BEAKER) (test yuok=604) 27.9 % 40.1-51.0 MEAN CORPUSCULAR VOLUME (BEAKER) (test hxzq=564) 102.6 fL 79.0-92.2 MEAN CORPUSCULAR HEMOGLOBIN (BEAKER) (test 32.7 pg 25.7-32.2 eptl=282) MEAN CORPUSCULAR HEMOGLOBIN CONC (BEAKER) (test 31.9 GM/DL 32.3-36.5 tbse=998) RED CELL DISTRIBUTION WIDTH (BEAKER) (test 17.2 % 11.6-14.4 xgbg=387) PLATELET COUNT (BEAKER) (test xtbj=862) 244 K/CU MM 150-450 MEAN PLATELET VOLUME (BEAKER) (test isfj=841) 11.2 fL 9.4-12.4 NUCLEATED RED BLOOD CELLS (BEAKER) (test 0 /100 WBC 0-0 dubl=524) NEUTROPHILS RELATIVE PERCENT (BEAKER) (test 62 % kqvi=955) LYMPHOCYTES RELATIVE PERCENT (BEAKER) (test 19 % qlqo=301) MONOCYTES RELATIVE PERCENT (BEAKER) (test 10 % mddl=422) EOSINOPHILS RELATIVE PERCENT (BEAKER) (test 7 % ndop=502) BASOPHILS RELATIVE PERCENT (BEAKER) (test 1 % wmjf=594) NEUTROPHILS ABSOLUTE COUNT (BEAKER) (test 4.83 K/ L 1.78-5.38 illr=807) LYMPHOCYTES ABSOLUTE COUNT (BEAKER) (test 1.49 K/ L 1.32-3.57 ttjm=307) MONOCYTES ABSOLUTE COUNT (BEAKER) (test 0.80 K/ L 0.30-0.82 mpvx=151) EOSINOPHILS ABSOLUTE COUNT (BEAKER) (test 0.51 K/ L 0.04-0.54 dwui=724) BASOPHILS ABSOLUTE COUNT (BEAKER) (test 0.05 K/ L 0.01-0.08 lfsn=633) IMMATURE GRANULOCYTES-RELATIVE PERCENT (BEAKER) 1 % 0-1 (test mshm=3059) POCT-GLUCOSE [id number] 21:35:00 Test Item Value Reference Range Comments POC-GLUCOSE METER (BEAKER) 181 mg/dL 70-[address] (test lpjf=3860) [place] [id number] POCT-GLUCOSE [id number] 17:58:00 Test Item Value Reference Range Comments POC-GLUCOSE METER (BEAKER) 166 mg/dL 70-[address] (test bdts=1334) [place] [id number] POCT-GLUCOSE [id number] 12:45:00 Test Item Value Reference Range Comments POC-GLUCOSE METER (BEAKER) 146 mg/dL 70-[address] (test fapf=6532) [place] [address] POCT-GLUCOSE [id number] 08:59:00 Test Item Value Reference Range Comments POC-GLUCOSE METER (BEAKER) 158 mg/dL 70-[address] (test hahc=0481) [place] [address] [id number] 05:22:00 Test Item Value Reference Range Comments PHOSPHORUS (BEAKER) (test oynz=492) 2.5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 09:49:00 Test Item Value Reference Range Comments POC-GLUCOSE METER (BEAKER) 107 mg/dL 70-[address] (test jirv=5948) [place] [address] [id number] 06:19:00 Test Item Value Reference Range Comments PHOSPHORUS (BEAKER) (test snpj=671) 2.7 mg/dL 2.3-4.7 [id number] 06:19:00 Test Item Value Reference Range Comments MAGNESIUM (BEAKER) (test qnzd=476) 1.7 mg/dL 1.6-2.6 CBC W/PLT COUNT & AUTO [id number] 05:24:00 Test Item Value Reference Range Comments WHITE BLOOD CELL COUNT (BEAKER) (test cxcv=255) 9.3 K/ L 3.5-10.5 RED BLOOD CELL COUNT (BEAKER) (test kkfc=825) 2.73 M/ L 4.63-6.08 HEMOGLOBIN (BEAKER) (test xokl=226) 8.9 GM/DL 13.7-17.5 HEMATOCRIT (BEAKER) (test lfgd=734) 28.0 % 40.1-51.0 MEAN CORPUSCULAR VOLUME (BEAKER) (test uamh=247) 102.6 fL 79.0-92.2 MEAN CORPUSCULAR HEMOGLOBIN (BEAKER) (test 32.6 pg 25.7-32.2 slhs=090) MEAN CORPUSCULAR HEMOGLOBIN CONC (BEAKER) (test 31.8 GM/DL 32.3-36.5 aqzp=806) RED CELL DISTRIBUTION WIDTH (BEAKER) (test 17.4 % 11.6-14.4 jinw=949) PLATELET COUNT (BEAKER) (test piay=206) 198 K/CU MM 150-450 MEAN PLATELET VOLUME (BEAKER) (test jeht=792) 11.7 fL 9.4-12.4 NUCLEATED RED BLOOD CELLS (BEAKER) (test 0 /100 WBC 0-0 tzgl=603) NEUTROPHILS RELATIVE PERCENT (BEAKER) (test 72 % kxas=538) LYMPHOCYTES RELATIVE PERCENT (BEAKER) (test 11 % cqyb=090) MONOCYTES RELATIVE PERCENT (BEAKER) (test 12 % eykn=169) EOSINOPHILS RELATIVE PERCENT (BEAKER) (test 3 % lccp=327) BASOPHILS RELATIVE PERCENT (BEAKER) (test 1 % tcbv=959) NEUTROPHILS ABSOLUTE COUNT (BEAKER) (test 6.71 K/ L 1.78-5.38 uyfd=970) LYMPHOCYTES ABSOLUTE COUNT (BEAKER) (test 1.00 K/ L 1.32-3.57 ylfi=902) MONOCYTES ABSOLUTE COUNT (BEAKER) (test 1.15 K/ L 0.30-0.82 yrxw=240) EOSINOPHILS ABSOLUTE COUNT (BEAKER) (test 0.32 K/ L 0.04-0.54 nhhk=558) BASOPHILS ABSOLUTE COUNT (BEAKER) (test 0.06 K/ L 0.01-0.08 raeh=780) IMMATURE GRANULOCYTES-RELATIVE PERCENT (BEAKER) 0 % 0-1 (test xejg=2990) POCT-GLUCOSE [id number] 22:37:00 Test Item Value Reference Range Comments POC-GLUCOSE METER (BEAKER) 110 mg/dL 70-[address] (test tukm=8168) [facility] [address] POCT-GLUCOSE [id number] 21:15:00 Test Item Value Reference Range Comments POC-GLUCOSE METER (BEAKER) 142 mg/dL 70-[address] (test wput=5249) [facility] [address] POCT-GLUCOSE [id number] 13:13:00 Test Item Value Reference Range Comments POC-GLUCOSE METER (BEAKER) 136 mg/dL 70-[address] (test sysb=3160) [facility] [address] POCT-GLUCOSE [id number] 09:36:00 Test Item Value Reference Range Comments POC-GLUCOSE METER (BEAKER) 111 mg/dL 70-[address] (test vyup=1969) [facility] [address] BASIC METABOLIC [id number] 06:08:00 Test Item Value Reference Range Comments SODIUM (BEAKER) (test 136 meq/L 136-145 dfju=555) POTASSIUM (BEAKER) (test 4.5 meq/L 3.5-5.1 wqaw=944) CHLORIDE (BEAKER) (test 97 meq/L 98-107 kvwg=307) CO2 (BEAKER) (test 26 meq/L 22-29 jlqw=877) BLOOD UREA NITROGEN 44 mg/dL 7-21 (BEAKER) (test pnro=541) CREATININE (BEAKER) (test 5.76 mg/dL 0.57-1.25 pkrd=542) GLUCOSE RANDOM (BEAKER) 78 mg/dL 70-105 (test eugi=263) CALCIUM (BEAKER) (test 8.2 mg/dL 8.4-10.2 eifm=017) EGFR (BEAKER) (test 10 mL/min/1.73 sq m ESTIMATED GFR IS NOT hltx=0573) ACCURATE CREATININE CLEARANCE IN PREDICTING GLOMERULAR FILTRATION RATE. ESTIMATED GFR IS NOT APPLICABLE FOR DIALYSIS PATIENTS. [id number] 06:02:00 Test Item Value Reference Range Comments PHOSPHORUS (BEAKER) (test rsxp=608) 3.3 mg/dL 2.3-4.7 [id number] 06:02:00 Test Item Value Reference Range Comments MAGNESIUM (BEAKER) (test oila=217) 1.9 mg/dL 1.6-2.6 CBC W/PLT COUNT & AUTO [id number] 05:39:00 Test Item Value Reference Range Comments WHITE BLOOD CELL COUNT (BEAKER) (test jhrh=814) 8.8 K/ L 3.5-10.5 RED BLOOD CELL COUNT (BEAKER) (test vahm=715) 2.71 M/ L 4.63-6.08 HEMOGLOBIN (BEAKER) (test mzbe=754) 8.9 GM/DL 13.7-17.5 HEMATOCRIT (BEAKER) (test pkbo=860) 27.9 % 40.1-51.0 MEAN CORPUSCULAR VOLUME (BEAKER) (test xozl=240) 103.0 fL 79.0-92.2 MEAN CORPUSCULAR HEMOGLOBIN (BEAKER) (test 32.8 pg 25.7-32.2 wpxd=437) MEAN CORPUSCULAR HEMOGLOBIN CONC (BEAKER) (test 31.9 GM/DL 32.3-36.5 hpvw=260) RED CELL DISTRIBUTION WIDTH (BEAKER) (test 17.3 % 11.6-14.4 amzo=503) PLATELET COUNT (BEAKER) (test yonz=642) 177 K/CU MM 150-450 MEAN PLATELET VOLUME (BEAKER) (test tfyi=607) 11.6 fL 9.4-12.4 NUCLEATED RED BLOOD CELLS (BEAKER) (test 0 /100 WBC 0-0 uggb=486) NEUTROPHILS RELATIVE PERCENT (BEAKER) (test 68 % kdez=050) LYMPHOCYTES RELATIVE PERCENT (BEAKER) (test 15 % kzon=910) MONOCYTES RELATIVE PERCENT (BEAKER) (test 11 % uxtj=889) EOSINOPHILS RELATIVE PERCENT (BEAKER) (test 5 % mkbc=660) BASOPHILS RELATIVE PERCENT (BEAKER) (test 0 % qvhy=650) NEUTROPHILS ABSOLUTE COUNT (BEAKER) (test 5.98 K/ L 1.78-5.38 twra=552) LYMPHOCYTES ABSOLUTE COUNT (BEAKER) (test 1.35 K/ L 1.32-3.57 tfkn=438) MONOCYTES ABSOLUTE COUNT (BEAKER) (test 0.97 K/ L 0.30-0.82 thmc=030) EOSINOPHILS ABSOLUTE COUNT (BEAKER) (test 0.45 K/ L 0.04-0.54 kvsb=138) BASOPHILS ABSOLUTE COUNT (BEAKER) (test 0.03 K/ L 0.01-0.08 yrlx=255) IMMATURE GRANULOCYTES-RELATIVE PERCENT (BEAKER) 0 % 0-1 (test nijg=0595) POCT-GLUCOSE [id number] 00:11:00 Test Item Value Reference Range Comments POC-GLUCOSE METER (BEAKER) 146 mg/dL 70-[address] (test skug=2454) [facility] [address] POCT-GLUCOSE [id number] 17:14:00 Test Item Value Reference Range Comments POC-GLUCOSE METER (BEAKER) 160 mg/dL 70-[address] (test njcp=8131) [place] [address] POCT-GLUCOSE [id number] 13:54:00 Test Item Value Reference Range Comments POC-GLUCOSE METER (BEAKER) 242 mg/dL 70-[address] (test khwu=5185) [place] [address] POCT-GLUCOSE [id number] 13:10:00 Test Item Value Reference Range Comments POC-GLUCOSE METER (BEAKER) 163 mg/dL 70-[address] (test slzc=2085) [place] [address] POCT-GLUCOSE [id number] 08:35:00 Test Item Value Reference Range Comments POC-GLUCOSE METER (BEAKER) 176 mg/dL 70-[address] (test icoa=9409) [place] [address] [id number] 04:40:00 Test Item Value Reference Range Comments PHOSPHORUS (BEAKER) (test ynrq=764) 2.7 mg/dL 2.3-4.7 [id number] 04:40:00 Test Item Value Reference Range Comments MAGNESIUM (BEAKER) (test tgys=823) 1.8 mg/dL 1.6-2.6 CBC W/PLT COUNT & AUTO [id number] 04:00:00 Test Item Value Reference Range Comments WHITE BLOOD CELL COUNT (BEAKER) (test rkqw=036) 8.5 K/ L 3.5-10.5 RED BLOOD CELL COUNT (BEAKER) (test enpq=394) 2.77 M/ L 4.63-6.08 HEMOGLOBIN (BEAKER) (test rpfl=939) 9.0 GM/DL 13.7-17.5 HEMATOCRIT (BEAKER) (test ydsf=232) 28.5 % 40.1-51.0 MEAN CORPUSCULAR VOLUME (BEAKER) (test tost=828) 102.9 fL 79.0-92.2 MEAN CORPUSCULAR HEMOGLOBIN (BEAKER) (test 32.5 pg 25.7-32.2 ubso=460) MEAN CORPUSCULAR HEMOGLOBIN CONC (BEAKER) (test 31.6 GM/DL 32.3-36.5 avwn=340) RED CELL DISTRIBUTION WIDTH (BEAKER) (test 17.7 % 11.6-14.4 qzpd=526) PLATELET COUNT (BEAKER) (test xltz=437) 189 K/CU MM 150-450 MEAN PLATELET VOLUME (BEAKER) (test metn=989) 11.5 fL 9.4-12.4 NUCLEATED RED BLOOD CELLS (BEAKER) (test 0 /100 WBC 0-0 kuez=183) NEUTROPHILS RELATIVE PERCENT (BEAKER) (test 72 % ezun=327) LYMPHOCYTES RELATIVE PERCENT (BEAKER) (test 10 % mfti=743) MONOCYTES RELATIVE PERCENT (BEAKER) (test 12 % edum=532) EOSINOPHILS RELATIVE PERCENT (BEAKER) (test 5 % ezvw=410) BASOPHILS RELATIVE PERCENT (BEAKER) (test 1 % bcno=932) NEUTROPHILS ABSOLUTE COUNT (BEAKER) (test 6.13 K/ L 1.78-5.38 tgxf=403) LYMPHOCYTES ABSOLUTE COUNT (BEAKER) (test 0.88 K/ L 1.32-3.57 qyxp=736) MONOCYTES ABSOLUTE COUNT (BEAKER) (test 0.98 K/ L 0.30-0.82 dflq=765) EOSINOPHILS ABSOLUTE COUNT (BEAKER) (test 0.39 K/ L 0.04-0.54 bbbq=903) BASOPHILS ABSOLUTE COUNT (BEAKER) (test 0.04 K/ L 0.01-0.08 tgcd=475) IMMATURE GRANULOCYTES-RELATIVE PERCENT (BEAKER) 1 % 0-1 (test wbri=2637) POCT-GLUCOSE [id number] 00:16:00 Test Item Value Reference Range Comments POC-GLUCOSE METER (BEAKER) 223 mg/dL 70-[address] (test xzxb=4121) [place] [address] POCT-GLUCOSE [id number] 16:51:00 Test Item Value Reference Range Comments POC-GLUCOSE METER (BEAKER) 133 mg/dL 70-[address] (test wzwj=4483) [place] [address] POCT-GLUCOSE [id number] 12:50:00 Test Item Value Reference Range Comments POC-GLUCOSE METER (BEAKER) 178 mg/dL 70-[address] (test gyph=3681) [place] [address] POCT-GLUCOSE [id number] 11:53:00 Test Item Value Reference Range Comments POC-GLUCOSE METER (BEAKER) 177 mg/dL 70-[address] (test xsbs=2625) [place] [address] POCT-GLUCOSE [id number] 09:58:00 Test Item Value Reference Range Comments POC-GLUCOSE METER (BEAKER) 173 mg/dL 70-[address] (test andl=9655) [place] [address] CBC W/PLT COUNT & AUTO [id number] 06:10:00 Test Item Value Reference Range Comments WHITE BLOOD CELL COUNT (BEAKER) (test vpdf=438) 7.8 K/ L 3.5-10.5 RED BLOOD CELL COUNT (BEAKER) (test gewk=042) 3.08 M/ L 4.63-6.08 HEMOGLOBIN (BEAKER) (test rhsg=468) 10.0 GM/DL 13.7-17.5 HEMATOCRIT (BEAKER) (test dvdt=303) 31.2 % 40.1-51.0 MEAN CORPUSCULAR VOLUME (BEAKER) (test gwge=932) 101.3 fL 79.0-92.2 MEAN CORPUSCULAR HEMOGLOBIN (BEAKER) (test 32.5 pg 25.7-32.2 isos=429) MEAN CORPUSCULAR HEMOGLOBIN CONC (BEAKER) (test 32.1 GM/DL 32.3-36.5 kaqf=815) RED CELL DISTRIBUTION WIDTH (BEAKER) (test 18.7 % 11.6-14.4 rrsv=592) PLATELET COUNT (BEAKER) (test qopr=866) 177 K/CU MM 150-450 MEAN PLATELET VOLUME (BEAKER) (test lnfi=974) 11.4 fL 9.4-12.4 NUCLEATED RED BLOOD CELLS (BEAKER) (test 0 /100 WBC 0-0 lvra=113) NEUTROPHILS RELATIVE PERCENT (BEAKER) (test 63 % pwlj=942) LYMPHOCYTES RELATIVE PERCENT (BEAKER) (test 15 % djpb=897) MONOCYTES RELATIVE PERCENT (BEAKER) (test 12 % usdt=334) EOSINOPHILS RELATIVE PERCENT (BEAKER) (test 8 % rczp=133) BASOPHILS RELATIVE PERCENT (BEAKER) (test 1 % cnea=734) NEUTROPHILS ABSOLUTE COUNT (BEAKER) (test 4.90 K/ L 1.78-5.38 xstn=916) LYMPHOCYTES ABSOLUTE COUNT (BEAKER) (test 1.16 K/ L 1.32-3.57 eamq=059) MONOCYTES ABSOLUTE COUNT (BEAKER) (test 0.92 K/ L 0.30-0.82 cghm=619) EOSINOPHILS ABSOLUTE COUNT (BEAKER) (test 0.65 K/ L 0.04-0.54 qlsw=860) BASOPHILS ABSOLUTE COUNT (BEAKER) (test 0.09 K/ L 0.01-0.08 cfdw=648) IMMATURE GRANULOCYTES-RELATIVE PERCENT (BEAKER) 1 % 0-1 (test egbn=9109) [id number] 06:08:00 Test Item Value Reference Range Comments POTASSIUM (BEAKER) (test imfs=766) 4.1 meq/L 3.5-5.1 [id number] 06:08:00 Test Item Value Reference Range Comments MAGNESIUM (BEAKER) (test upky=347) 1.7 mg/dL 1.6-2.6 [id number] 06:08:00 Test Item Value Reference Range Comments PHOSPHORUS (BEAKER) (test osgg=777) 2.4 mg/dL 2.3-4.7 POCT-GLUCOSE [id number] 05:20:00 Test Item Value Reference Range Comments POC-GLUCOSE METER (BEAKER) 170 mg/dL 70-[address] (test nycw=1266) [facility] [address] POCT-GLUCOSE [id number] 20:31:00 Test Item Value Reference Range Comments POC-GLUCOSE METER (BEAKER) 157 mg/dL 70-[address] (test lpoi=1266) [facility] [address] POCT-GLUCOSE [id number] 15:40:00 Test Item Value Reference Range Comments POC-GLUCOSE METER (BEAKER) 148 mg/dL 70-110 TESTED AT [place] [id number] [facility] (test fwdt=1289) [facility] [address] [id number] 10:23:00 Test Item Value Reference Range Comments POTASSIUM (BEAKER) (test ijsl=948) 4.0 meq/L 3.5-5.1 CBC W/PLT COUNT & AUTO [id number] 05:56:00 Test Item Value Reference Range Comments WHITE BLOOD CELL COUNT (BEAKER) (test pcvj=165) 6.9 K/ L 3.5-10.5 RED BLOOD CELL COUNT (BEAKER) (test zxhw=152) 2.06 M/ L 4.63-6.08 HEMOGLOBIN (BEAKER) (test wniz=368) 6.9 GM/DL 13.7-17.5 HEMATOCRIT (BEAKER) (test sbei=419) 22.2 % 40.1-51.0 MEAN CORPUSCULAR VOLUME (BEAKER) (test atwt=780) 107.8 fL 79.0-92.2 MEAN CORPUSCULAR HEMOGLOBIN (BEAKER) (test 33.5 pg 25.7-32.2 fdtf=691) MEAN CORPUSCULAR HEMOGLOBIN CONC (BEAKER) (test 31.1 GM/DL 32.3-36.5 nlfb=812) RED CELL DISTRIBUTION WIDTH (BEAKER) (test 16.2 % 11.6-14.4 gdog=066) PLATELET COUNT (BEAKER) (test lspn=728) 200 K/CU MM 150-450 MEAN PLATELET VOLUME (BEAKER) (test fsys=259) 11.0 fL 9.4-12.4 NUCLEATED RED BLOOD CELLS (BEAKER) (test 0 /100 WBC 0-0 jfbn=496) NEUTROPHILS RELATIVE PERCENT (BEAKER) (test 59 % awss=290) LYMPHOCYTES RELATIVE PERCENT (BEAKER) (test 21 % afzp=358) MONOCYTES RELATIVE PERCENT (BEAKER) (test 13 % enhv=589) EOSINOPHILS RELATIVE PERCENT (BEAKER) (test 6 % yinc=096) BASOPHILS RELATIVE PERCENT (BEAKER) (test 1 % vbzt=969) NEUTROPHILS ABSOLUTE COUNT (BEAKER) (test 4.08 K/ L 1.78-5.38 bznd=792) LYMPHOCYTES ABSOLUTE COUNT (BEAKER) (test 1.45 K/ L 1.32-3.57 sxou=323) MONOCYTES ABSOLUTE COUNT (BEAKER) (test 0.90 K/ L 0.30-0.82 nrpf=157) EOSINOPHILS ABSOLUTE COUNT (BEAKER) (test 0.38 K/ L 0.04-0.54 gqyq=047) BASOPHILS ABSOLUTE COUNT (BEAKER) (test 0.05 K/ L 0.01-0.08 fvjr=176) IMMATURE GRANULOCYTES-RELATIVE PERCENT (BEAKER) 1 % 0-1 (test epkz=0733) [id number] 05:37:00 Test Item Value Reference Range Comments PHOSPHORUS (BEAKER) (test thxz=207) 3.1 mg/dL 2.3-4.7 [id number] 05:37:00 Test Item Value Reference Range Comments MAGNESIUM (BEAKER) (test jcxj=954) 2.1 mg/dL 1.6-2.6 POCT-GLUCOSE [id number] 17:48:00 Test Item Value Reference Range Comments POC-GLUCOSE METER (BEAKER) 154 mg/dL 70-[address] (test rdxa=5392) [place] [address] POCT-GLUCOSE [id number] 12:56:00 Test Item Value Reference Range Comments POC-GLUCOSE METER (BEAKER) 196 mg/dL 70-[address] (test lbro=7670) [place] [address] POCT-GLUCOSE [id number] 08:41:00 Test Item Value Reference Range Comments POC-GLUCOSE METER (BEAKER) 158 mg/dL 70-[address] (test glld=6233) [place] [address] CBC W/PLT COUNT & AUTO [id number] 06:30:00 Test Item Value Reference Range Comments WHITE BLOOD CELL COUNT (BEAKER) (test tgqb=423) 9.0 K/ L 3.5-10.5 RED BLOOD CELL COUNT (BEAKER) (test takm=388) 2.49 M/ L 4.63-6.08 HEMOGLOBIN (BEAKER) (test siuf=433) 8.2 GM/DL 13.7-17.5 HEMATOCRIT (BEAKER) (test qlwo=534) 27.2 % 40.1-51.0 MEAN CORPUSCULAR VOLUME (BEAKER) (test ryum=250) 109.2 fL 79.0-92.2 MEAN CORPUSCULAR HEMOGLOBIN (BEAKER) (test 32.9 pg 25.7-32.2 gkxs=675) MEAN CORPUSCULAR HEMOGLOBIN CONC (BEAKER) (test 30.1 GM/DL 32.3-36.5 hlse=062) RED CELL DISTRIBUTION WIDTH (BEAKER) (test 15.9 % 11.6-14.4 afcf=984) PLATELET COUNT (BEAKER) (test nvxe=209) 214 K/CU MM 150-450 MEAN PLATELET VOLUME (BEAKER) (test phur=849) 11.3 fL 9.4-12.4 NUCLEATED RED BLOOD CELLS (BEAKER) (test 0 /100 WBC 0-0 dyqo=912) NEUTROPHILS RELATIVE PERCENT (BEAKER) (test 84 % vwpc=433) LYMPHOCYTES RELATIVE PERCENT (BEAKER) (test 7 % snbo=258) MONOCYTES RELATIVE PERCENT (BEAKER) (test 7 % vzcq=802) EOSINOPHILS RELATIVE PERCENT (BEAKER) (test 0 % flip=208) BASOPHILS RELATIVE PERCENT (BEAKER) (test 1 % dfrr=373) NEUTROPHILS ABSOLUTE COUNT (BEAKER) (test 7.60 K/ L 1.78-5.38 hwsm=249) LYMPHOCYTES ABSOLUTE COUNT (BEAKER) (test 0.61 K/ L 1.32-3.57 pinb=659) MONOCYTES ABSOLUTE COUNT (BEAKER) (test 0.65 K/ L 0.30-0.82 jbyq=904) EOSINOPHILS ABSOLUTE COUNT (BEAKER) (test 0.03 K/ L 0.04-0.54 ptlv=232) BASOPHILS ABSOLUTE COUNT (BEAKER) (test 0.09 K/ L 0.01-0.08 hmou=895) IMMATURE GRANULOCYTES-RELATIVE PERCENT (BEAKER) 1 % 0-1 (test ptqt=6801) [id number] 06:22:00 Test Item Value Reference Range Comments PHOSPHORUS (BEAKER) (test jbcj=870) 3.0 mg/dL 2.3-4.7 [id number] 06:22:00 Test Item Value Reference Range Comments MAGNESIUM (BEAKER) (test iccg=168) 1.9 mg/dL 1.6-2.6 POCT-GLUCOSE [id number] 00:08:00 Test Item Value Reference Range Comments POC-GLUCOSE METER (BEAKER) 131 mg/dL 70-[address] (test qnxu=7748) [facility] [address] POCT-GLUCOSE [id number] 18:50:00 Test Item Value Reference Range Comments POC-GLUCOSE METER (BEAKER) 136 mg/dL 70-[address] AT [address] (test hdxn=7481) [facility] [address] RAD, FOOT, MIN 3 VIEWS, [id number] 13:56:00Reason for exam:->non healing woundFINAL REPORT RAD, [...] MDReport Verified Date/Time: 09/04/2018 13:56:28 Reading Location: [facility] Consult Reading Room POCT- GLUCOSE [id number] 12:12:00 Test Item Value Reference Range Comments POC-GLUCOSE METER (BEAKER) 125 mg/dL 70-[address] (test xxmz=9523) [facility] [address] POCT-GLUCOSE [id number] 08:06:00 Test Item Value Reference Range Comments POC-GLUCOSE METER (BEAKER) 122 mg/dL 70-[address] AT [address] (test qfnq=9510) [facility] [address] CBC W/PLT COUNT & AUTO [id number] 04:43:00 Test Item Value Reference Range Comments WHITE BLOOD CELL COUNT (BEAKER) (test lktv=298) 8.1 K/ L 3.5-10.5 RED BLOOD CELL COUNT (BEAKER) (test blcq=104) 2.40 M/ L 4.63-6.08 HEMOGLOBIN (BEAKER) (test bkcv=916) 7.9 GM/DL 13.7-17.5 HEMATOCRIT (BEAKER) (test kvfo=677) 25.5 % 40.1-51.0 MEAN CORPUSCULAR VOLUME (BEAKER) (test yiab=846) 106.3 fL 79.0-92.2 MEAN CORPUSCULAR HEMOGLOBIN (BEAKER) (test 32.9 pg 25.7-32.2 wiiq=048) MEAN CORPUSCULAR HEMOGLOBIN CONC (BEAKER) (test 31.0 GM/DL 32.3-36.5 eyad=946) RED CELL DISTRIBUTION WIDTH (BEAKER) (test 15.1 % 11.6-14.4 hzgl=617) PLATELET COUNT (BEAKER) (test bies=164) 226 K/CU MM 150-450 MEAN PLATELET VOLUME (BEAKER) (test pekq=606) 11.1 fL 9.4-12.4 NUCLEATED RED BLOOD CELLS (BEAKER) (test 0 /100 WBC 0-0 vowv=411) NEUTROPHILS RELATIVE PERCENT (BEAKER) (test 63 % uypr=239) LYMPHOCYTES RELATIVE PERCENT (BEAKER) (test 16 % arha=781) MONOCYTES RELATIVE PERCENT (BEAKER) (test 11 % nhlb=488) EOSINOPHILS RELATIVE PERCENT (BEAKER) (test 9 % lbed=145) BASOPHILS RELATIVE PERCENT (BEAKER) (test 1 % wsqs=246) NEUTROPHILS ABSOLUTE COUNT (BEAKER) (test 5.07 K/ L 1.78-5.38 luap=010) LYMPHOCYTES ABSOLUTE COUNT (BEAKER) (test 1.31 K/ L 1.32-3.57 gwdu=962) MONOCYTES ABSOLUTE COUNT (BEAKER) (test 0.92 K/ L 0.30-0.82 oldj=920) EOSINOPHILS ABSOLUTE COUNT (BEAKER) (test 0.70 K/ L 0.04-0.54 isvv=568) BASOPHILS ABSOLUTE COUNT (BEAKER) (test 0.07 K/ L 0.01-0.08 mgpu=325) IMMATURE GRANULOCYTES-RELATIVE PERCENT (BEAKER) 0 % 0-1 (test tgrb=5374) [id number] 04:39:00 Test Item Value Reference Range Comments PHOSPHORUS (BEAKER) (test uykq=880) 2.9 mg/dL 2.3-4.7 [id number] 04:39:00 Test Item Value Reference Range Comments MAGNESIUM (BEAKER) (test rovk=140) 1.9 mg/dL 1.6-2.6 BASIC METABOLIC [id number] 04:39:00 Test Item Value Reference Range Comments SODIUM (BEAKER) (test 139 meq/L 136-145 yiak=979) POTASSIUM (BEAKER) (test 4.3 meq/L 3.5-5.1 saqp=406) CHLORIDE (BEAKER) (test 100 meq/L 98-107 pahb=364) CO2 (BEAKER) (test 30 meq/L 22-29 gxag=593) BLOOD UREA NITROGEN 29 mg/dL 7-21 (BEAKER) (test obmr=876) CREATININE (BEAKER) (test 4.41 mg/dL 0.57-1.25 otwe=121) GLUCOSE RANDOM (BEAKER) 115 mg/dL 70-105 (test ikbg=030) CALCIUM (BEAKER) (test 8.6 mg/dL 8.4-10.2 iiqy=651) EGFR (BEAKER) (test 13 mL/min/1.73 sq m ESTIMATED GFR IS NOT fnap=7884) ACCURATE CREATININE CLEARANCE IN PREDICTING GLOMERULAR FILTRATION RATE. ESTIMATED GFR IS NOT APPLICABLE FOR DIALYSIS PATIENTS. POCT-GLUCOSE [id number] 20:32:00 Test Item Value Reference Range Comments POC-GLUCOSE METER (BEAKER) 177 mg/dL 70-110 TESTED AT [place] [id number] [facility] (test uecu=7608) [place] [id number] POCT-GLUCOSE [id number] 18:07:00 Test Item Value Reference Range Comments POC-GLUCOSE METER (BEAKER) 141 mg/dL 70-110 TESTED AT [facility] [address] [facility] (test jtsg=4612) [facility] [address] RESPIRATORY PANEL [id number] 15:28:00 Test Item Value Reference Range Comments HUMAN METAPNEUMOVIRUS (BEAKER) (test Not detected Not detected, Equivocal vkly=4819) RHINOVIRUS (BEAKER) (test xzbq=7658) Not detected Not detected, Equivocal INFLUENZA A (BEAKER) (test dpjk=0273) Not detected Not detected, Equivocal INFLUENZA A (NO SUBTYPE) (test Not detected, Equivocal kumb=0569) INFLUENZA A SUBTYPE H1 (BEAKER) (test Not detected, Equivocal qafu=7506) INFLUENZA A SUBTYPE H3 (BEAKER) (test Not detected, Equivocal yivf=7174) INFLUENZA A SUBTYPE H1-2009 (BEAKER) Not detected, Equivocal (test dxyt=2199) INFLUENZA B (BEAKER) (test nscn=7216) Not detected Not detected, Equivocal RESPIRATORY SYNCYTIAL VIRUS (BEAKER) Not detected Not detected, Equivocal (test rhap=9096) PARAINFLUENZA VIRUS 1 (BEAKER) (test Not detected Not detected, Equivocal kahv=4732) PARAINFLUENZA VIRUS 2 (BEAKER) (test Not detected Not detected, Equivocal zxoa=8799) PARAINFLUENZA VIRUS 3 (BEAKER) (test Not detected Not detected, Equivocal mrme=8811) PARAINFLUENZA VIRUS 4 (BEAKER) (test Not detected Not detected, Equivocal lnxy=2103) ADENOVIRUS (BEAKER) (test igsp=3546) Not detected Not detected, Equivocal CORONAVIRUS 229E (BEAKER) (test Not detected Not detected, Equivocal fmbs=8760) CORONAVIRUS HKU1 (BEAKER) (test Not detected Not detected, Equivocal robe=5208) CORONAVIRUS NL63 (BEAKER) (test Not detected Not detected, Equivocal xbyg=4618) CORONAVIRUS OC43 (BEAKER) (test Not detected Not detected, Equivocal hckq=6651) BORDETELLA PERTUSSIS (BEAKER) (test Not detected Not detected, Equivocal xqxn=7594) CHLAMYDOPHILA PNEUMONIAE (BEAKER) (test Not detected Not detected, Equivocal oekb=5415) MYCOPLASMA PNEUMONIAE (BEAKER) (test Not detected Not detected, Equivocal ampf=0975) Other viruses and bacteria not targeted by this PCR panel cannot be excluded; therefore clinical correlation and follow up of serology, culture results, and other molecular studies is required. The results are not intended to be used as the sole means for clinical diagnosis or patient management decisions. This sample was tested at the [facility] using the PaintZenArray Respiratory Panel. It is FDA cleared and has been verified and approved by the [facility] for clinical use on nasal swab specimens. It is not FDA-cleared for use on bronchial wash/lavage samples. However, for this sample type, validation was performed and test characteristics were determined and approved, by [facility] for clinical use under the Clinical Laboratory Improvement Amendments (CLIA) of 1988 requirements. Therefore, FDA clearance isnot required. This laboratory is CLIA-certified and [employer] ([employer])-accredited to perform high complexity testing.POCT-GLUCOSE [id number] 12:53:00 Test Item Value Reference Range Comments POC-GLUCOSE METER (BEAKER) 147 mg/dL 70-110 TESTED AT [facility] [address] [place] [address] (test sayp=2563) [place] [address] POCT-GLUCOSE [id number] 07:57:00 Test Item Value Reference Range Comments POC-GLUCOSE METER (BEAKER) 81 mg/dL 70-[address] (test xtae=7485) [place] [id number] BASIC METABOLIC [id number] 04:37:00 Test Item Value Reference Range Comments SODIUM (BEAKER) (test 140 meq/L 136-145 kvez=477) POTASSIUM (BEAKER) (test 3.6 meq/L 3.5-5.1 fnrq=352) CHLORIDE (BEAKER) (test 102 meq/L 98-107 vswp=407) CO2 (BEAKER) (test 32 meq/L 22-29 rppn=557) BLOOD UREA NITROGEN 19 mg/dL 7-21 (BEAKER) (test ceay=052) CREATININE (BEAKER) (test 3.20 mg/dL 0.57-1.25 mvlu=450) GLUCOSE RANDOM (BEAKER) 77 mg/dL 70-105 (test yupe=333) CALCIUM (BEAKER) (test 8.3 mg/dL 8.4-10.2 zzas=443) EGFR (BEAKER) (test 19 mL/min/1.73 sq m ESTIMATED GFR IS NOT gymb=5694) ACCURATE CREATININE CLEARANCE IN PREDICTING GLOMERULAR FILTRATION RATE. ESTIMATED GFR IS NOT APPLICABLE FOR DIALYSIS PATIENTS. [id number] 04:34:00 Test Item Value Reference Range Comments PHOSPHORUS (BEAKER) (test nwkn=269) 1.6 mg/dL 2.3-4.7 [id number] 04:34:00 Test Item Value Reference Range Comments MAGNESIUM (BEAKER) (test yuot=062) 1.8 mg/dL 1.6-2.6 CBC W/PLT COUNT & AUTO [id number] 04:31:00 Test Item Value Reference Range Comments WHITE BLOOD CELL COUNT (BEAKER) (test zbfq=790) 8.4 K/ L 3.5-10.5 RED BLOOD CELL COUNT (BEAKER) (test ijlo=214) 2.20 M/ L 4.63-6.08 HEMOGLOBIN (BEAKER) (test ijxz=461) 7.3 GM/DL 13.7-17.5 HEMATOCRIT (BEAKER) (test ovyx=901) 23.1 % 40.1-51.0 MEAN CORPUSCULAR VOLUME (BEAKER) (test nvcl=085) 105.0 fL 79.0-92.2 MEAN CORPUSCULAR HEMOGLOBIN (BEAKER) (test 33.2 pg 25.7-32.2 insg=336) MEAN CORPUSCULAR HEMOGLOBIN CONC (BEAKER) (test 31.6 GM/DL 32.3-36.5 dace=070) RED CELL DISTRIBUTION WIDTH (BEAKER) (test 14.8 % 11.6-14.4 pbac=463) PLATELET COUNT (BEAKER) (test arne=033) 184 K/CU MM 150-450 MEAN PLATELET VOLUME (BEAKER) (test mrbe=886) 10.5 fL 9.4-12.4 NUCLEATED RED BLOOD CELLS (BEAKER) (test 0 /100 WBC 0-0 etvv=519) NEUTROPHILS RELATIVE PERCENT (BEAKER) (test 62 % utgt=679) LYMPHOCYTES RELATIVE PERCENT (BEAKER) (test 20 % spfa=245) MONOCYTES RELATIVE PERCENT (BEAKER) (test 12 % drrz=190) EOSINOPHILS RELATIVE PERCENT (BEAKER) (test 6 % zahn=670) BASOPHILS RELATIVE PERCENT (BEAKER) (test 1 % ihlt=086) NEUTROPHILS ABSOLUTE COUNT (BEAKER) (test 5.18 K/ L 1.78-5.38 cqkn=169) LYMPHOCYTES ABSOLUTE COUNT (BEAKER) (test 1.66 K/ L 1.32-3.57 eeid=889) MONOCYTES ABSOLUTE COUNT (BEAKER) (test 0.96 K/ L 0.30-0.82 tjvb=277) EOSINOPHILS ABSOLUTE COUNT (BEAKER) (test 0.51 K/ L 0.04-0.54 sovk=818) BASOPHILS ABSOLUTE COUNT (BEAKER) (test 0.04 K/ L 0.01-0.08 tpyk=000) IMMATURE GRANULOCYTES-RELATIVE PERCENT (BEAKER) 0 % 0-1 (test bxwn=5316) POCT-GLUCOSE [id number] 22:13:00 Test Item Value Reference Range Comments POC-GLUCOSE METER (BEAKER) 197 mg/dL 70-[address] (test mpmb=5775) [facility] [address] POCT-GLUCOSE [id number] 17:38:00 Test Item Value Reference Range Comments POC-GLUCOSE METER (BEAKER) 229 mg/dL 70-[address] (test zqys=3152) [place] [id number] POCT-GLUCOSE [id number] 08:11:00 Test Item Value Reference Range Comments POC-GLUCOSE METER (BEAKER) 148 mg/dL 70-[address] (test aqcj=8200) [facility] [address] [id number] 07:28:00 Test Item Value Reference Range Comments FERRITIN (BEAKER) (test inwb=797) 414 ng/mL 5-275 IRON, TIBC, % SAT. (WITHOUT FERRITIN)[id number] 07:03:00 Test Item Value Reference Range Comments IRON (BEAKER) (test bmjl=928) 55.0 ug/dL 40.0-160.0 TOTAL IRON BINDING CAPACITY (BEAKER) (test 148 ug/dL 250-450 jkrt=713) IRON % SATURATION (2) (BEAKER) (test pfqb=8929) 37 % 20-55 BASIC METABOLIC [id number] 04:17:00 Test Item Value Reference Range Comments SODIUM (BEAKER) (test 135 meq/L 136-145 hqtv=676) POTASSIUM (BEAKER) (test 4.4 meq/L 3.5-5.1 ojgi=607) CHLORIDE (BEAKER) (test 101 meq/L 98-107 bdol=948) CO2 (BEAKER) (test 26 meq/L 22-29 agic=455) BLOOD UREA NITROGEN 29 mg/dL 7-21 (BEAKER) (test rlce=958) CREATININE (BEAKER) (test 5.20 mg/dL 0.57-1.25 kqkm=492) GLUCOSE RANDOM (BEAKER) 119 mg/dL 70-105 (test ojuu=960) CALCIUM (BEAKER) (test 8.4 mg/dL 8.4-10.2 pggw=054) EGFR (BEAKER) (test 11 mL/min/1.73 sq m ESTIMATED GFR IS NOT aknq=7791) ACCURATE CREATININE CLEARANCE IN PREDICTING GLOMERULAR FILTRATION RATE. ESTIMATED GFR IS NOT APPLICABLE FOR DIALYSIS PATIENTS. CBC W/PLT COUNT & AUTO [id number] 04:13:00 Test Item Value Reference Range Comments WHITE BLOOD CELL COUNT (BEAKER) (test artw=579) 8.1 K/ L 3.5-10.5 RED BLOOD CELL COUNT (BEAKER) (test tfzk=287) 2.19 M/ L 4.63-6.08 HEMOGLOBIN (BEAKER) (test zjnk=185) 7.3 GM/DL 13.7-17.5 HEMATOCRIT (BEAKER) (test ttfl=269) 23.1 % 40.1-51.0 MEAN CORPUSCULAR VOLUME (BEAKER) (test bcxv=053) 105.5 fL 79.0-92.2 MEAN CORPUSCULAR HEMOGLOBIN (BEAKER) (test 33.3 pg 25.7-32.2 mtnw=387) MEAN CORPUSCULAR HEMOGLOBIN CONC (BEAKER) (test 31.6 GM/DL 32.3-36.5 bsuj=171) RED CELL DISTRIBUTION WIDTH (BEAKER) (test 14.7 % 11.6-14.4 yzwz=713) PLATELET COUNT (BEAKER) (test imlv=763) 168 K/CU MM 150-450 MEAN PLATELET VOLUME (BEAKER) (test opts=855) 11.4 fL 9.4-12.4 NUCLEATED RED BLOOD CELLS (BEAKER) (test 0 /100 WBC 0-0 fbqb=606) NEUTROPHILS RELATIVE PERCENT (BEAKER) (test 63 % qqgf=822) LYMPHOCYTES RELATIVE PERCENT (BEAKER) (test 17 % qogq=060) MONOCYTES RELATIVE PERCENT (BEAKER) (test 9 % hugu=414) EOSINOPHILS RELATIVE PERCENT (BEAKER) (test 10 % qkrf=374) BASOPHILS RELATIVE PERCENT (BEAKER) (test 0 % rbso=650) NEUTROPHILS ABSOLUTE COUNT (BEAKER) (test 5.13 K/ L 1.78-5.38 pqfg=720) LYMPHOCYTES ABSOLUTE COUNT (BEAKER) (test 1.40 K/ L 1.32-3.57 qbcn=151) MONOCYTES ABSOLUTE COUNT (BEAKER) (test 0.72 K/ L 0.30-0.82 rozm=389) EOSINOPHILS ABSOLUTE COUNT (BEAKER) (test 0.81 K/ L 0.04-0.54 gdzd=108) BASOPHILS ABSOLUTE COUNT (BEAKER) (test 0.03 K/ L 0.01-0.08 qdzw=872) IMMATURE GRANULOCYTES-RELATIVE PERCENT (BEAKER) 0 % 0-1 (test tppx=9790) [id number] 04:11:00 Test Item Value Reference Range Comments PHOSPHORUS (BEAKER) (test ozqk=456) 3.5 mg/dL 2.3-4.7 [id number] 04:11:00 Test Item Value Reference Range Comments MAGNESIUM (BEAKER) (test jsdt=436) 2.2 mg/dL 1.6-2.6 POCT-GLUCOSE [id number] 21:35:00 Test Item Value Reference Range Comments POC-GLUCOSE METER (BEAKER) 165 mg/dL 70-[address] (test fvar=0907) [place] [address] POCT-GLUCOSE [id number] 17:33:00 Test Item Value Reference Range Comments POC-GLUCOSE METER (BEAKER) 200 mg/dL 70-[address] (test dylq=7220) [place] [address] POCT-GLUCOSE [id number] 13:15:00 Test Item Value Reference Range Comments POC-GLUCOSE METER (BEAKER) 188 mg/dL 70-[address] (test wuhg=8835) [place] [address] POCT-GLUCOSE [id number] 09:59:00 Test Item Value Reference Range Comments POC-GLUCOSE METER (BEAKER) 214 mg/dL 70-[address] (test qqzy=9011) [place] [address] CBC W/PLT COUNT & AUTO [id number] 07:15:00 Test Item Value Reference Range Comments WHITE BLOOD CELL COUNT (BEAKER) (test orlq=869) 7.6 K/ L 3.5-10.5 RED BLOOD CELL COUNT (BEAKER) (test uhlo=462) 2.26 M/ L 4.63-6.08 HEMOGLOBIN (BEAKER) (test lxsm=644) 7.6 GM/DL 13.7-17.5 HEMATOCRIT (BEAKER) (test vpxx=676) 24.1 % 40.1-51.0 MEAN CORPUSCULAR VOLUME (BEAKER) (test bzzh=973) 106.6 fL 79.0-92.2 MEAN CORPUSCULAR HEMOGLOBIN (BEAKER) (test 33.6 pg 25.7-32.2 ugph=115) MEAN CORPUSCULAR HEMOGLOBIN CONC (BEAKER) (test 31.5 GM/DL 32.3-36.5 gmzc=197) RED CELL DISTRIBUTION WIDTH (BEAKER) (test 14.6 % 11.6-14.4 gsxd=161) PLATELET COUNT (BEAKER) (test hgop=424) 155 K/CU MM 150-450 MEAN PLATELET VOLUME (BEAKER) (test zqft=238) 11.7 fL 9.4-12.4 NUCLEATED RED BLOOD CELLS (BEAKER) (test 0 /100 WBC 0-0 hxpu=287) NEUTROPHILS RELATIVE PERCENT (BEAKER) (test 64 % drda=195) LYMPHOCYTES RELATIVE PERCENT (BEAKER) (test 14 % gqfy=627) MONOCYTES RELATIVE PERCENT (BEAKER) (test 11 % tuzz=561) EOSINOPHILS RELATIVE PERCENT (BEAKER) (test 10 % vtkl=534) BASOPHILS RELATIVE PERCENT (BEAKER) (test 1 % tahl=264) NEUTROPHILS ABSOLUTE COUNT (BEAKER) (test 4.88 K/ L 1.78-5.38 bxys=866) LYMPHOCYTES ABSOLUTE COUNT (BEAKER) (test 1.04 K/ L 1.32-3.57 qlhn=748) MONOCYTES ABSOLUTE COUNT (BEAKER) (test 0.82 K/ L 0.30-0.82 hsrm=046) EOSINOPHILS ABSOLUTE COUNT (BEAKER) (test 0.77 K/ L 0.04-0.54 hman=728) BASOPHILS ABSOLUTE COUNT (BEAKER) (test 0.04 K/ L 0.01-0.08 wudi=258) IMMATURE GRANULOCYTES-RELATIVE PERCENT (BEAKER) 0 % 0-1 (test obxp=9009) BASIC METABOLIC [id number] 06:48:00 Test Item Value Reference Range Comments SODIUM (BEAKER) (test 133 meq/L 136-145 umnv=430) POTASSIUM (BEAKER) (test 3.4 meq/L 3.5-5.1 ygcn=559) CHLORIDE (BEAKER) (test 99 meq/L 98-107 hhoz=050) CO2 (BEAKER) (test 27 meq/L 22-29 rymr=720) BLOOD UREA NITROGEN 20 mg/dL 7-21 (BEAKER) (test ltma=892) CREATININE (BEAKER) (test 4.24 mg/dL 0.57-1.25 wwoa=055) GLUCOSE RANDOM (BEAKER) 165 mg/dL 70-105 (test hpwn=041) CALCIUM (BEAKER) (test 8.4 mg/dL 8.4-10.2 jdsd=068) EGFR (BEAKER) (test 14 mL/min/1.73 sq m ESTIMATED GFR IS NOT fhoz=7230) ACCURATE CREATININE CLEARANCE IN PREDICTING GLOMERULAR FILTRATION RATE. ESTIMATED GFR IS NOT APPLICABLE FOR DIALYSIS PATIENTS. [id number] 06:43:00 Test Item Value Reference Range Comments PHOSPHORUS (BEAKER) (test qpmz=565) 1.7 mg/dL 2.3-4.7 [id number] 06:43:00 Test Item Value Reference Range Comments MAGNESIUM (BEAKER) (test okyb=728) 1.9 mg/dL 1.6-2.6 POCT-GLUCOSE [id number] 06:32:00 Test Item Value Reference Range Comments POC-GLUCOSE METER (BEAKER) 201 mg/dL 70-[address] (test irsf=1056) [facility] [address] POCT-GLUCOSE [id number] 17:39:00 Test Item Value Reference Range Comments POC-GLUCOSE METER (BEAKER) 206 mg/dL 70-[address] (test nise=1066) [facility] [address] POCT-GLUCOSE [id number] 12:46:00 Test Item Value Reference Range Comments POC-GLUCOSE METER (BEAKER) 191 mg/dL 70-[address] (test uvev=7220) [place] [address] POCT-GLUCOSE [id number] 09:46:00 Test Item Value Reference Range Comments POC-GLUCOSE METER (BEAKER) 105 mg/dL 70-[address] (test cwxt=8624) [place] [id number] POCT-GLUCOSE [id number] 08:34:00 Test Item Value Reference Range Comments POC-GLUCOSE METER (BEAKER) 145 mg/dL 70-110 TESTED AT [facility] [address] (test geel=0200) [facility] [address] TROPONIN [id number] 04:58:00 Test Item Value Reference Range Comments TROPONIN I (BEAKER) (test astb=598) 0.07 ng/mL 0.00-0.03 Troponin I (TnI) levels [...] acute neurological disease, and persistent tachyarrhythmia.BASIC METABOLIC [id number] 04:54:00 Test Item Value Reference Range Comments SODIUM (BEAKER) (test 135 meq/L 136-145 ccit=453) POTASSIUM (BEAKER) (test 3.9 meq/L 3.5-5.1 wgas=595) CHLORIDE (BEAKER) (test 100 meq/L 98-107 prrq=776) CO2 (BEAKER) (test 27 meq/L 22-29 jepc=189) BLOOD UREA NITROGEN 12 mg/dL 7-21 (BEAKER) (test sakc=742) CREATININE (BEAKER) (test 2.68 mg/dL 0.57-1.25 wkjv=913) GLUCOSE RANDOM (BEAKER) 132 mg/dL 70-105 (test zsgj=691) CALCIUM (BEAKER) (test 8.6 mg/dL 8.4-10.2 dojd=756) EGFR (BEAKER) (test 23 mL/min/1.73 sq m ESTIMATED GFR IS NOT aukl=5829) ACCURATE CREATININE CLEARANCE IN PREDICTING GLOMERULAR FILTRATION RATE. ESTIMATED GFR IS NOT APPLICABLE FOR DIALYSIS PATIENTS. [id number] 04:50:00 Test Item Value Reference Range Comments PHOSPHORUS (BEAKER) (test czxd=938) 2.0 mg/dL 2.3-4.7 [id number] 04:50:00 Test Item Value Reference Range Comments MAGNESIUM (BEAKER) (test fmbe=327) 1.8 mg/dL 1.6-2.6 CBC W/PLT COUNT & AUTO [id number] 04:27:00 Test Item Value Reference Range Comments WHITE BLOOD CELL COUNT (BEAKER) (test rekv=776) 7.8 K/ L 3.5-10.5 RED BLOOD CELL COUNT (BEAKER) (test fdpd=219) 2.63 M/ L 4.63-6.08 HEMOGLOBIN (BEAKER) (test tiyz=044) 8.6 GM/DL 13.7-17.5 HEMATOCRIT (BEAKER) (test tajv=017) 27.3 % 40.1-51.0 MEAN CORPUSCULAR VOLUME (BEAKER) (test zuri=484) 103.8 fL 79.0-92.2 MEAN CORPUSCULAR HEMOGLOBIN (BEAKER) (test 32.7 pg 25.7-32.2 lcgu=285) MEAN CORPUSCULAR HEMOGLOBIN CONC (BEAKER) (test 31.5 GM/DL 32.3-36.5 homb=266) RED CELL DISTRIBUTION WIDTH (BEAKER) (test 14.3 % 11.6-14.4 bhlj=804) PLATELET COUNT (BEAKER) (test pvvg=481) 156 K/CU MM 150-450 MEAN PLATELET VOLUME (BEAKER) (test zpau=696) 11.0 fL 9.4-12.4 NUCLEATED RED BLOOD CELLS (BEAKER) (test 0 /100 WBC 0-0 ifee=268) NEUTROPHILS RELATIVE PERCENT (BEAKER) (test 77 % wran=849) LYMPHOCYTES RELATIVE PERCENT (BEAKER) (test 8 % nvvf=013) MONOCYTES RELATIVE PERCENT (BEAKER) (test 9 % aean=894) EOSINOPHILS RELATIVE PERCENT (BEAKER) (test 5 % cyxr=218) BASOPHILS RELATIVE PERCENT (BEAKER) (test 1 % ofst=293) NEUTROPHILS ABSOLUTE COUNT (BEAKER) (test 5.98 K/ L 1.78-5.38 efyt=910) LYMPHOCYTES ABSOLUTE COUNT (BEAKER) (test 0.62 K/ L 1.32-3.57 wdhz=495) MONOCYTES ABSOLUTE COUNT (BEAKER) (test 0.72 K/ L 0.30-0.82 cltn=416) EOSINOPHILS ABSOLUTE COUNT (BEAKER) (test 0.35 K/ L 0.04-0.54 pkmg=299) BASOPHILS ABSOLUTE COUNT (BEAKER) (test 0.05 K/ L 0.01-0.08 afvr=708) IMMATURE GRANULOCYTES-RELATIVE PERCENT (AKER) 1 % 0-1 (test nsjb=5214) TROPONIN [id number] 23:54:00 Test Item Value Reference Range Comments TROPONIN I (BEAKER) (test udwz=805) 0.06 ng/mL 0.00-0.03 Troponin I (TnI) levels [...] acidosis, acute neurological disease, and persistent tachyarrhythmia.POCT-GLUCOSE [id number] 21:10:00 Test Item Value Reference Range Comments POC-GLUCOSE METER (BEAKER) 118 mg/dL 70-[address] (test dvjh=3242) [place] [address] TROPONIN [id number] 19:00:00 Test Item Value Reference Range Comments TROPONIN I (BEAKER) (test mnwq=955) 0.05 ng/mL 0.00-0.03 Troponin I (TnI) levels [...] acidosis, acute neurological disease, and persistent tachyarrhythmia.POCT-GLUCOSE [id number] 18:30:00 Test Item Value Reference Range Comments POC-GLUCOSE METER (BEAKER) 134 mg/dL 70-[address] (test qyjd=6063) [place] [address] TROPONIN [id number] 17:24:00 Test Item Value Reference Range Comments TROPONIN I (BEAKER) (test bkwl=330) 0.06 ng/mL 0.00-0.03 Troponin I (TnI) levels [...] acute neurological disease, and persistent tachyarrhythmia.BASIC METABOLIC [id number] 17:17:00 Test Item Value Reference Range Comments SODIUM (BEAKER) (test 132 meq/L 136-145 qilq=751) POTASSIUM (BEAKER) (test 4.3 meq/L 3.5-5.1 dzmo=391) CHLORIDE (BEAKER) (test 98 meq/L 98-107 vvbb=202) CO2 (BEAKER) (test 24 meq/L 22-29 giap=513) BLOOD UREA NITROGEN 31 mg/dL 7-21 (BEAKER) (test xdqt=171) CREATININE (BEAKER) (test 5.30 mg/dL 0.57-1.25 gtfb=053) GLUCOSE RANDOM (BEAKER) 142 mg/dL 70-105 (test dymh=497) CALCIUM (BEAKER) (test 9.1 mg/dL 8.4-10.2 fkgs=756) EGFR (BEAKER) (test 11 mL/min/1.73 sq m ESTIMATED GFR IS NOT qeow=4610) ACCURATE CREATININE CLEARANCE IN PREDICTING GLOMERULAR FILTRATION RATE. ESTIMATED GFR IS NOT APPLICABLE FOR DIALYSIS PATIENTS. [id number] 17:16:00 Test Item Value Reference Range Comments PHOSPHORUS (BEAKER) (test kqll=715) 2.5 mg/dL 2.3-4.7 [id number] 17:16:00 Test Item Value Reference Range Comments MAGNESIUM (BEAKER) (test nnal=373) 1.8 mg/dL 1.6-2.6 BASIC METABOLIC [id number] 13:14:00 Test Item Value Reference Range Comments SODIUM (BEAKER) (test 132 meq/L 136-145 woex=806) POTASSIUM (BEAKER) (test 4.2 meq/L 3.5-5.1 vhwk=456) CHLORIDE (BEAKER) (test 99 meq/L 98-107 zqkd=494) CO2 (BEAKER) (test 26 meq/L 22-29 afzr=102) BLOOD UREA NITROGEN 29 mg/dL 7-21 (BEAKER) (test wqqk=126) CREATININE (BEAKER) (test 4.83 mg/dL 0.57-1.25 vrdx=275) GLUCOSE RANDOM (BEAKER) 124 mg/dL 70-105 (test crej=308) CALCIUM (BEAKER) (test 8.7 mg/dL 8.4-10.2 tgxn=542) EGFR (BEAKER) (test 12 mL/min/1.73 sq m ESTIMATED GFR IS NOT yhvc=0178) ACCURATE CREATININE CLEARANCE IN PREDICTING GLOMERULAR FILTRATION RATE. ESTIMATED GFR IS NOT APPLICABLE FOR DIALYSIS PATIENTS. CBC W/PLT COUNT & AUTO [id number] 12:49:00 Test Item Value Reference Range Comments WHITE BLOOD CELL COUNT (BEAKER) (test keuu=901) 10.7 K/ L 3.5-10.5 RED BLOOD CELL COUNT (BEAKER) (test zjfc=904) 2.74 M/ L 4.63-6.08 HEMOGLOBIN (BEAKER) (test iaqw=523) 9.3 GM/DL 13.7-17.5 HEMATOCRIT (BEAKER) (test zxeb=267) 28.4 % 40.1-51.0 MEAN CORPUSCULAR VOLUME (BEAKER) (test zpkp=274) 103.6 fL 79.0-92.2 MEAN CORPUSCULAR HEMOGLOBIN (BEAKER) (test 33.9 pg 25.7-32.2 qvzo=340) MEAN CORPUSCULAR HEMOGLOBIN CONC (BEAKER) (test 32.7 GM/DL 32.3-36.5 bmmd=814) RED CELL DISTRIBUTION WIDTH (BEAKER) (test 14.0 % 11.6-14.4 sxru=939) PLATELET COUNT (BEAKER) (test mpui=718) 163 K/CU MM 150-450 MEAN PLATELET VOLUME (BEAKER) (test hdnv=689) 10.9 fL 9.4-12.4 NUCLEATED RED BLOOD CELLS (BEAKER) (test 0 /100 WBC 0-0 uhtd=559) NEUTROPHILS RELATIVE PERCENT (BEAKER) (test 81 % dxcu=837) LYMPHOCYTES RELATIVE PERCENT (BEAKER) (test 9 % qojx=375) MONOCYTES RELATIVE PERCENT (BEAKER) (test 1 % ehiy=483) EOSINOPHILS RELATIVE PERCENT (BEAKER) (test 5 % uums=602) BASOPHILS RELATIVE PERCENT (BEAKER) (test 0 % fcdz=792) NEUTROPHILS ABSOLUTE COUNT (BEAKER) (test 8.71 K/ L 1.78-5.38 qzpu=730) LYMPHOCYTES ABSOLUTE COUNT (BEAKER) (test 0.94 K/ L 1.32-3.57 yqzk=407) MONOCYTES ABSOLUTE COUNT (BEAKER) (test 0.13 K/ L 0.30-0.82 davn=532) EOSINOPHILS ABSOLUTE COUNT (BEAKER) (test 0.53 K/ L 0.04-0.54 joys=144) BASOPHILS ABSOLUTE COUNT (BEAKER) (test 0.04 K/ L 0.01-0.08 dshk=365) IMMATURE GRANULOCYTES-RELATIVE PERCENT (BEAKER) 4 % 0-1 (test lein=3995) BLOOD GAS, [id number] 11:37:00 Test Item Value Reference Range Comments PH ARTERIAL (BEAKER) (test fkap=744) 7.43 7.35-7.45 PCO2 ARTERIAL (BEAKER) (test cicm=011) 41 mmHg 35-45 PO2 ARTERIAL (BEAKER) (test mgot=957) 297 mmHg 80-90 O2 SATURATION ARTERIAL (BEAKER) (test qqte=590) 99.7 % 96.0-97.0 HCO3 ARTERIAL (BEAKER) (test bydp=583) 27 mmol/L 21-29 BASE EXCESS ARTERIAL (BEAKER) (test qpvz=357) 2.0 mmol/L -2.0-3.0 PATIENT TEMPERATURE (BEAKER) (test lsza=1502) 35.1 C FIO2 (BEAKER) (test aekh=4562) 100.0 % GLUCOSE-STAT [id number] 11:37:00 Test Item Value Reference Range Comments GLUCOSE RANDOM (BEAKER) (test obix=907) 112 mg/dL 70-110 SODIUM NA-STAT [id number] 11:37:00 Test Item Value Reference Range Comments SODIUM (BEAKER) (test yrzn=390) 130 meq/L 135-148 HGB/HCT (H&H) - STAT [id number] 11:37:00 Test Item Value Reference Range Comments HEMOGLOBIN (BEAKER) (test ncbb=375) 9.9 g/dL 13.0-16.8 HEMATOCRIT (BEAKER) (test tpfi=627) 29.0 % 40.0-50.0 [id number] 11:35:00 Test Item Value Reference Range Comments ACTIVATED CLOTTING TIME 142 sec TESTED AT [facility] [address] (BEAKER) (test oycs=118) [place] [address] POTASSIUM-STAT [id number] 11:35:00 Test Item Value Reference Range Comments POTASSIUM (BEAKER) (test fbqs=643) 4.0 meq/L 3.6-5.5 [id number] 11:35:00 Test Item Value Reference Range Comments ACTIVATED CLOTTING TIME 224 sec TESTED AT [place] [address] (BEAKER) (test avdc=755) [place] [address] [id number] 11:35:00 Test Item Value Reference Range Comments ACTIVATED CLOTTING TIME 241 sec TESTED AT [place] [id number] (BEAKER) (test vnko=495) [place] [address] POCT-GLUCOSE [id number] 06:01:00 Test Item Value Reference Range Comments POC-GLUCOSE METER (BEAKER) 119 mg/dL 70-110 [facility] [place] [address] [facility] (test vucq=2539[facility] [place] [address] BASIC METABOLIC [id number] 03:31:00 Test Item Value Reference Range Comments SODIUM (BEAKER) (test 133 meq/L 136-145 lnny=369) POTASSIUM (BEAKER) (test 4.2 meq/L 3.5-5.1 lqdc=475) CHLORIDE (BEAKER) (test 96 meq/L 98-107 tqii=984) CO2 (BEAKER) (test 29 meq/L 22-29 xquu=467) BLOOD UREA NITROGEN 28 mg/dL 7-21 (BEAKER) (test ntfp=603) CREATININE (BEAKER) (test 4.83 mg/dL 0.57-1.25 gzme=434) GLUCOSE RANDOM (BEAKER) 128 mg/dL 70-105 (test lddc=709) CALCIUM (BEAKER) (test 8.8 mg/dL 8.4-10.2 jisq=554) EGFR (BEAKER) (test 12 mL/min/1.73 sq m ESTIMATED GFR IS NOT ehsh=8253) ACCURATE CREATININE CLEARANCE IN PREDICTING GLOMERULAR FILTRATION RATE. ESTIMATED GFR IS NOT APPLICABLE FOR DIALYSIS PATIENTS. BASIC METABOLIC [id number] 03:31:00 Test Item Value Reference Range Comments SODIUM (BEAKER) (test 133 meq/L 136-145 juau=217) POTASSIUM (BEAKER) (test 4.2 meq/L 3.5-5.1 anwu=427) CHLORIDE (BEAKER) (test 96 meq/L 98-107 zuod=889) CO2 (BEAKER) (test 29 meq/L 22-29 talu=125) BLOOD UREA NITROGEN 28 mg/dL 7-21 (BEAKER) (test hech=049) CREATININE (BEAKER) (test 4.84 mg/dL 0.57-1.25 hlmk=102) GLUCOSE RANDOM (BEAKER) 128 mg/dL 70-105 (test tsww=106) CALCIUM (BEAKER) (test 8.9 mg/dL 8.4-10.2 guwt=334) EGFR (BEAKER) (test 12 mL/min/1.73 sq m ESTIMATED GFR IS NOT iqsr=6358) ACCURATE CREATININE CLEARANCE IN PREDICTING GLOMERULAR FILTRATION RATE. ESTIMATED GFR IS NOT APPLICABLE FOR DIALYSIS PATIENTS. [id number] 03:25:00 Test Item Value Reference Range Comments PHOSPHORUS (BEAKER) (test fmtb=303) 2.4 mg/dL 2.3-4.7 [id number] 03:25:00 Test Item Value Reference Range Comments MAGNESIUM (BEAKER) (test dwtp=253) 1.9 mg/dL 1.6-2.6 CALCIUM, [id number] 03:22:00 Test Item Value Reference Range Comments CALCIUM IONIZED (BEAKER) (test ftwg=794) 1.07 mmol/L 1.12-1.27 PH, BLOOD (BEAKER) (test eudq=6214) 7.43 PROTHROMBIN [id number] 03:22:00 Test Item Value Reference Range Comments PROTIME (BEAKER) (test kyhh=941) 14.9 seconds 11.7-14.7 INR (BEAKER) (test pcne=999) 1.2 <=5.9 RECOMMENDED COUMADIN/WARFARIN INR THERAPY RANGESSTANDARD DOSE: 2.0 - 3.0 Includes: PROPHYLAXIS forvenous thrombosis, systemic embolization; TREATMENT for venous thrombosis and/or pulmonary embolus.HIGH RISK: Target INR is 2.5-3.5 for patients with mechanical heart valves.CBC W/PLT COUNT & AUTO [id number] 03:07:00 Test Item Value Reference Range Comments WHITE BLOOD CELL COUNT (BEAKER) (test xfge=210) 8.2 K/ L 3.5-10.5 RED BLOOD CELL COUNT (BEAKER) (test aoqs=183) 2.65 M/ L 4.63-6.08 HEMOGLOBIN (BEAKER) (test dwfx=091) 8.8 GM/DL 13.7-17.5 HEMATOCRIT (BEAKER) (test pqvo=109) 27.2 % 40.1-51.0 MEAN CORPUSCULAR VOLUME (BEAKER) (test reof=494) 102.6 fL 79.0-92.2 MEAN CORPUSCULAR HEMOGLOBIN (BEAKER) (test 33.2 pg 25.7-32.2 ejlc=481) MEAN CORPUSCULAR HEMOGLOBIN CONC (BEAKER) (test 32.4 GM/DL 32.3-36.5 snsq=375) RED CELL DISTRIBUTION WIDTH (BEAKER) (test 13.6 % 11.6-14.4 bipu=120) PLATELET COUNT (BEAKER) (test fbqi=754) 173 K/CU MM 150-450 MEAN PLATELET VOLUME (BEAKER) (test fwsk=628) 11.1 fL 9.4-12.4 NUCLEATED RED BLOOD CELLS (BEAKER) (test 0 /100 WBC 0-0 lnux=662) NEUTROPHILS RELATIVE PERCENT (BEAKER) (test 68 % uqpf=123) LYMPHOCYTES RELATIVE PERCENT (BEAKER) (test 15 % kbvm=840) MONOCYTES RELATIVE PERCENT (BEAKER) (test 9 % janx=399) EOSINOPHILS RELATIVE PERCENT (BEAKER) (test 7 % bbpj=574) BASOPHILS RELATIVE PERCENT (BEAKER) (test 1 % gnig=414) NEUTROPHILS ABSOLUTE COUNT (BEAKER) (test 5.57 K/ L 1.78-5.38 jmly=350) LYMPHOCYTES ABSOLUTE COUNT (BEAKER) (test 1.24 K/ L 1.32-3.57 hbmo=070) MONOCYTES ABSOLUTE COUNT (BEAKER) (test 0.70 K/ L 0.30-0.82 qhvq=446) EOSINOPHILS ABSOLUTE COUNT (BEAKER) (test 0.61 K/ L 0.04-0.54 mjur=278) BASOPHILS ABSOLUTE COUNT (BEAKER) (test 0.05 K/ L 0.01-0.08 aivz=217) IMMATURE GRANULOCYTES-RELATIVE PERCENT (BEAKER) 1 % 0-1 (test zxqj=9945) CBC W/PLT COUNT & AUTO [id number] 03:05:00 Test Item Value Reference Range Comments WHITE BLOOD CELL COUNT (BEAKER) (test iiom=337) 8.3 K/ L 3.5-10.5 RED BLOOD CELL COUNT (BEAKER) (test wdeg=958) 2.71 M/ L 4.63-6.08 HEMOGLOBIN (BEAKER) (test dgdv=566) 8.9 GM/DL 13.7-17.5 HEMATOCRIT (BEAKER) (test vrsf=784) 27.9 % 40.1-51.0 MEAN CORPUSCULAR VOLUME (BEAKER) (test gjoz=632) 103.0 fL 79.0-92.2 MEAN CORPUSCULAR HEMOGLOBIN (BEAKER) (test 32.8 pg 25.7-32.2 qdiz=997) MEAN CORPUSCULAR HEMOGLOBIN CONC (BEAKER) (test 31.9 GM/DL 32.3-36.5 feks=030) RED CELL DISTRIBUTION WIDTH (BEAKER) (test 13.9 % 11.6-14.4 viop=960) PLATELET COUNT (BEAKER) (test lvzh=390) 170 K/CU MM 150-450 MEAN PLATELET VOLUME (BEAKER) (test xhbp=064) 11.1 fL 9.4-12.4 NUCLEATED RED BLOOD CELLS (BEAKER) (test 0 /100 WBC 0-0 vhyg=596) NEUTROPHILS RELATIVE PERCENT (BEAKER) (test 67 % jfju=751) LYMPHOCYTES RELATIVE PERCENT (BEAKER) (test 15 % cpwp=934) MONOCYTES RELATIVE PERCENT (BEAKER) (test 9 % gvxl=917) EOSINOPHILS RELATIVE PERCENT (BEAKER) (test 8 % bwbk=944) BASOPHILS RELATIVE PERCENT (BEAKER) (test 1 % fpsh=404) NEUTROPHILS ABSOLUTE COUNT (BEAKER) (test 5.61 K/ L 1.78-5.38 lbit=662) LYMPHOCYTES ABSOLUTE COUNT (BEAKER) (test 1.22 K/ L 1.32-3.57 wovt=141) MONOCYTES ABSOLUTE COUNT (BEAKER) (test 0.75 K/ L 0.30-0.82 hvkd=508) EOSINOPHILS ABSOLUTE COUNT (BEAKER) (test 0.64 K/ L 0.04-0.54 kmcw=659) BASOPHILS ABSOLUTE COUNT (BEAKER) (test 0.06 K/ L 0.01-0.08 agpy=111) IMMATURE GRANULOCYTES-RELATIVE PERCENT (BEAKER) 1 % 0-1 (test feab=2998) POCT-GLUCOSE [id number] 02:55:00 Test Item Value Reference Range Comments POC-GLUCOSE METER (BEAKER) 187 mg/dL 70-[address] (test gdzf=3160) [facility] [address] POCT-GLUCOSE [id number] 17:24:00 Test Item Value Reference Range Comments POC-GLUCOSE METER (BEAKER) 153 mg/dL 70-[address] (test oubw=4207) [facility] [address] POCT-GLUCOSE [id number] 13:20:00 Test Item Value Reference Range Comments POC-GLUCOSE METER (BEAKER) 213 mg/dL 70-[address] (test cdxe=1897) [place] [address] POCT-GLUCOSE [id number] 11:32:00 Test Item Value Reference Range Comments POC-GLUCOSE METER (BEAKER) 141 mg/dL 70-[address] (test gfmg=4815) [facility] [address] BASIC METABOLIC [id number] 08:25:00 Test Item Value Reference Range Comments SODIUM (BEAKER) (test 137 meq/L 136-145 tezk=671) POTASSIUM (BEAKER) (test 3.9 meq/L 3.5-5.1 xxys=885) CHLORIDE (BEAKER) (test 99 meq/L 98-107 toof=760) CO2 (BEAKER) (test 30 meq/L 22-29 eabq=292) BLOOD UREA NITROGEN 19 mg/dL 7-21 (BEAKER) (test hijn=551) CREATININE (BEAKER) (test 3.56 mg/dL 0.57-1.25 niux=631) GLUCOSE RANDOM (BEAKER) 119 mg/dL 70-105 (test tezq=195) CALCIUM (BEAKER) (test 8.7 mg/dL 8.4-10.2 ofdg=795) EGFR (BEAKER) (test 17 mL/min/1.73 sq m ESTIMATED GFR IS NOT mulu=3983) ACCURATE CREATININE CLEARANCE IN PREDICTING GLOMERULAR FILTRATION RATE. ESTIMATED GFR IS NOT APPLICABLE FOR DIALYSIS PATIENTS. POCT-GLUCOSE [id number] 21:40:00 Test Item Value Reference Range Comments POC-GLUCOSE METER (BEAKER) 190 mg/dL 70-[address] (test vlpa=9140) [facility] [address] POCT-GLUCOSE [id number] 18:26:00 Test Item Value Reference Range Comments POC-GLUCOSE METER (BEAKER) 178 mg/dL 70-[address] (test jmmk=3046) [place] [address] POCT-GLUCOSE [id number] 12:54:00 Test Item Value Reference Range Comments POC-GLUCOSE METER (BEAKER) 159 mg/dL 70-[address] (test flnl=3501) [place] [address] BASIC METABOLIC [id number] 05:56:00 Test Item Value Reference Range Comments SODIUM (BEAKER) (test 136 meq/L 136-145 kyzg=450) POTASSIUM (BEAKER) (test 4.3 meq/L 3.5-5.1 tvas=815) CHLORIDE (BEAKER) (test 100 meq/L 98-107 eltl=159) CO2 (BEAKER) (test 28 meq/L 22-29 pcgo=665) BLOOD UREA NITROGEN 37 mg/dL 7-21 (BEAKER) (test vcgb=196) CREATININE (BEAKER) (test 5.04 mg/dL 0.57-1.25 pelj=313) GLUCOSE RANDOM (BEAKER) 113 mg/dL 70-105 (test vtzy=129) CALCIUM (BEAKER) (test 8.8 mg/dL 8.4-10.2 iaqd=050) EGFR (BEAKER) (test 11 mL/min/1.73 sq m ESTIMATED GFR IS NOT bunq=7301) ACCURATE CREATININE CLEARANCE IN PREDICTING GLOMERULAR FILTRATION RATE. ESTIMATED GFR IS NOT APPLICABLE FOR DIALYSIS PATIENTS. [id number] 05:37:00 Test Item Value Reference Range Comments MAGNESIUM (BEAKER) (test nsid=011) 2.1 mg/dL 1.6-2.6 POCT-GLUCOSE [id number] 21:49:00 Test Item Value Reference Range Comments POC-GLUCOSE METER (BEAKER) 194 mg/dL 70-[address] (test picj=4063) [facility] [address] POCT-GLUCOSE [id number] 18:02:00 Test Item Value Reference Range Comments POC-GLUCOSE METER (BEAKER) 195 mg/dL 70-[address] (test rmyo=8050) [facility] [address] POCT-GLUCOSE [id number] 12:09:00 Test Item Value Reference Range Comments POC-GLUCOSE METER (BEAKER) 217 mg/dL 70-[address] (test qgcp=7547) [facility] [address] POCT-GLUCOSE [id number] 10:36:00 Test Item Value Reference Range Comments POC-GLUCOSE METER (BEAKER) 121 mg/dL 70-[address] (test fpaa=9816) [facility] [address] POCT-GLUCOSE [id number] 10:36:00 Test Item Value Reference Range Comments POC-GLUCOSE METER (BEAKER) 100 mg/dL 70-[address] (test cvmw=2897) [facility] [address] POCT-GLUCOSE [id number] 08:27:00 Test Item Value Reference Range Comments POC-GLUCOSE METER (BEAKER) 112 mg/dL 70-[address] (test himo=5625) [facility] [address] BASIC METABOLIC [id number] 06:18:00 Test Item Value Reference Range Comments SODIUM (BEAKER) (test 139 meq/L 136-145 vdvd=540) POTASSIUM (BEAKER) (test 4.1 meq/L 3.5-5.1 tqmc=157) CHLORIDE (BEAKER) (test 104 meq/L 98-107 frkq=299) CO2 (BEAKER) (test 29 meq/L 22-29 murx=718) BLOOD UREA NITROGEN 26 mg/dL 7-21 (BEAKER) (test krsn=241) CREATININE (BEAKER) (test 3.93 mg/dL 0.57-1.25 rvsw=045) GLUCOSE RANDOM (BEAKER) 104 mg/dL 70-105 (test wfxp=586) CALCIUM (BEAKER) (test 8.5 mg/dL 8.4-10.2 vgie=534) EGFR (BEAKER) (test 15 mL/min/1.73 sq m ESTIMATED GFR IS NOT jgpi=3550) ACCURATE CREATININE CLEARANCE IN PREDICTING GLOMERULAR FILTRATION RATE. ESTIMATED GFR IS NOT APPLICABLE FOR DIALYSIS PATIENTS. [id number] 06:17:00 Test Item Value Reference Range Comments PHOSPHORUS (BEAKER) (test zpwc=934) 2.5 mg/dL 2.3-4.7 [id number] 06:17:00 Test Item Value Reference Range Comments MAGNESIUM (BEAKER) (test mudj=019) 2.0 mg/dL 1.6-2.6 CBC W/PLT COUNT & AUTO [id number] 05:48:00 Test Item Value Reference Range Comments WHITE BLOOD CELL COUNT (BEAKER) (test elaw=936) 7.0 K/ L 3.5-10.5 RED BLOOD CELL COUNT (BEAKER) (test vcaj=917) 2.74 M/ L 4.63-6.08 HEMOGLOBIN (BEAKER) (test edwg=347) 9.0 GM/DL 13.7-17.5 HEMATOCRIT (BEAKER) (test yhuz=584) 27.9 % 40.1-51.0 MEAN CORPUSCULAR VOLUME (BEAKER) (test ilsv=892) 101.8 fL 79.0-92.2 MEAN CORPUSCULAR HEMOGLOBIN (BEAKER) (test 32.8 pg 25.7-32.2 jyzm=491) MEAN CORPUSCULAR HEMOGLOBIN CONC (BEAKER) (test 32.3 GM/DL 32.3-36.5 mqcc=046) RED CELL DISTRIBUTION WIDTH (BEAKER) (test 13.4 % 11.6-14.4 ntpi=993) PLATELET COUNT (BEAKER) (test lcwj=185) 165 K/CU MM 150-450 MEAN PLATELET VOLUME (BEAKER) (test iodz=998) 11.5 fL 9.4-12.4 NUCLEATED RED BLOOD CELLS (BEAKER) (test 0 /100 WBC 0-0 such=438) NEUTROPHILS RELATIVE PERCENT (BEAKER) (test 62 % heyj=061) LYMPHOCYTES RELATIVE PERCENT (BEAKER) (test 21 % aubt=698) MONOCYTES RELATIVE PERCENT (BEAKER) (test 11 % juvt=636) EOSINOPHILS RELATIVE PERCENT (BEAKER) (test 5 % gykb=069) BASOPHILS RELATIVE PERCENT (BEAKER) (test 1 % zovy=167) NEUTROPHILS ABSOLUTE COUNT (BEAKER) (test 4.35 K/ L 1.78-5.38 hstz=224) LYMPHOCYTES ABSOLUTE COUNT (BEAKER) (test 1.44 K/ L 1.32-3.57 sbkm=642) MONOCYTES ABSOLUTE COUNT (BEAKER) (test 0.78 K/ L 0.30-0.82 kaom=499) EOSINOPHILS ABSOLUTE COUNT (BEAKER) (test 0.35 K/ L 0.04-0.54 yhsp=010) BASOPHILS ABSOLUTE COUNT (BEAKER) (test 0.07 K/ L 0.01-0.08 lmah=587) IMMATURE GRANULOCYTES-RELATIVE PERCENT (BEAKER) 1 % 0-1 (test xumn=9485) POCT-GLUCOSE [id number] 21:14:00 Test Item Value Reference Range Comments POC-GLUCOSE METER (BEAKER) 188 mg/dL 70-[address] (test efup=7782) [facility] [address] POCT-GLUCOSE [id number] 17:16:00 Test Item Value Reference Range Comments POC-GLUCOSE METER (BEAKER) 199 mg/dL 70-[address] (test cepa=2445) [facility] [address] POCT-GLUCOSE [id number] 12:41:00 Test Item Value Reference Range Comments POC-GLUCOSE METER (BEAKER) 136 mg/dL 70-[address] (test vskf=4228) [facility] [address] CALCIUM, [id number] 08:02:00 Test Item Value Reference Range Comments CALCIUM IONIZED (BEAKER) (test iynh=410) 1.08 mmol/L 1.12-1.27 PH, BLOOD (BEAKER) (test rbng=0702) 7.42 COMPREHENSIVE METABOLIC [id number] 07:00:00 Test Item Value Reference Range Comments TOTAL PROTEIN (BEAKER) 6.5 gm/dL 6.0-8.3 (test pzxp=545) ALBUMIN (BEAKER) (test 2.4 g/dL 3.5-5.0 gzqz=1862) ALKALINE PHOSPHATASE 78 U/L 40-150 (BEAKER) (test vtsb=947) BILIRUBIN TOTAL (BEAKER) 0.4 mg/dL 0.2-1.2 (test dnqz=707) SODIUM (BEAKER) (test 129 meq/L 136-145 ebyw=253) POTASSIUM (BEAKER) (test 4.9 meq/L 3.5-5.1 qmaf=827) CHLORIDE (BEAKER) (test 93 meq/L 98-107 glll=522) CO2 (BEAKER) (test 26 meq/L 22-29 eqxg=058) BLOOD UREA NITROGEN 50 mg/dL 7-21 (BEAKER) (test dilb=520) CREATININE (BEAKER) (test 6.18 mg/dL 0.57-1.25 zojc=639) GLUCOSE RANDOM (BEAKER) 104 mg/dL 70-105 (test hgbf=322) CALCIUM (BEAKER) (test 8.9 mg/dL 8.4-10.2 twop=186) AST (SGOT) (BEAKER) (test 22 U/L 5-34 mrqh=836) ALT (SGPT) (BEAKER) (test < U/L 6-55 rgug=325) EGFR (BEAKER) (test 9 mL/min/1.73 sq m ESTIMATED GFR IS NOT oxze=4879) ACCURATE CREATININE CLEARANCE IN PREDICTING GLOMERULAR FILTRATION RATE. ESTIMATED GFR IS NOT APPLICABLE FOR DIALYSIS PATIENTS. [id number] 06:55:00 Test Item Value Reference Range Comments PHOSPHORUS (BEAKER) (test vfso=424) 4.1 mg/dL 2.3-4.7 [id number] 06:55:00 Test Item Value Reference Range Comments MAGNESIUM (BEAKER) (test wlpq=624) 2.2 mg/dL 1.6-2.6 CBC W/PLT COUNT & AUTO [id number] 06:21:00 Test Item Value Reference Range Comments WHITE BLOOD CELL COUNT (BEAKER) (test hmsz=775) 7.9 K/ L 3.5-10.5 RED BLOOD CELL COUNT (BEAKER) (test fxzs=127) 3.13 M/ L 4.63-6.08 HEMOGLOBIN (BEAKER) (test ztow=651) 10.3 GM/DL 13.7-17.5 HEMATOCRIT (BEAKER) (test lidz=850) 31.0 % 40.1-51.0 MEAN CORPUSCULAR VOLUME (BEAKER) (test syjq=529) 99.0 fL 79.0-92.2 MEAN CORPUSCULAR HEMOGLOBIN (BEAKER) (test 32.9 pg 25.7-32.2 kwck=658) MEAN CORPUSCULAR HEMOGLOBIN CONC (BEAKER) (test 33.2 GM/DL 32.3-36.5 ccmk=649) RED CELL DISTRIBUTION WIDTH (BEAKER) (test 13.2 % 11.6-14.4 zlpv=322) PLATELET COUNT (BEAKER) (test otcr=309) 181 K/CU MM 150-450 MEAN PLATELET VOLUME (BEAKER) (test wtcc=120) 11.1 fL 9.4-12.4 NUCLEATED RED BLOOD CELLS (BEAKER) (test 0 /100 WBC 0-0 ehjs=789) NEUTROPHILS RELATIVE PERCENT (BEAKER) (test 69 % swta=119) LYMPHOCYTES RELATIVE PERCENT (BEAKER) (test 15 % smck=591) MONOCYTES RELATIVE PERCENT (BEAKER) (test 10 % akgr=319) EOSINOPHILS RELATIVE PERCENT (BEAKER) (test 5 % ylvh=212) BASOPHILS RELATIVE PERCENT (BEAKER) (test 1 % tzxj=156) NEUTROPHILS ABSOLUTE COUNT (BEAKER) (test 5.39 K/ L 1.78-5.38 mhxf=985) LYMPHOCYTES ABSOLUTE COUNT (BEAKER) (test 1.20 K/ L 1.32-3.57 ewpg=950) MONOCYTES ABSOLUTE COUNT (BEAKER) (test 0.75 K/ L 0.30-0.82 hanc=709) EOSINOPHILS ABSOLUTE COUNT (BEAKER) (test 0.42 K/ L 0.04-0.54 nkcx=227) BASOPHILS ABSOLUTE COUNT (BEAKER) (test 0.06 K/ L 0.01-0.08 fqyn=174) IMMATURE GRANULOCYTES-RELATIVE PERCENT (BEAKER) 1 % 0-1 (test icxf=9279) POCT-GLUCOSE [id number] 21:04:00 Test Item Value Reference Range Comments POC-GLUCOSE METER (BEAKER) 163 mg/dL 70-[address] (test mtca=7891) [facility] [address] POCT-GLUCOSE [id number] 17:12:00 Test Item Value Reference Range Comments POC-GLUCOSE METER (BEAKER) 121 mg/dL 70-[address] (test dppp=6992) [facility] [address] POCT-GLUCOSE [id number] 12:56:00 Test Item Value Reference Range Comments POC-GLUCOSE METER (BEAKER) 144 mg/dL 70-110 TESTED AT [facility] [address] [facility] (test vcel=8864) [facility] [address] POCT-GLUCOSE [id number] 09:36:00 Test Item Value Reference Range Comments POC-GLUCOSE METER (BEAKER) 159 mg/dL 70-110 TESTED AT [facility] [address] [facility] (test qfwt=1457) [facility] [address] BASIC METABOLIC [id number] 08:48:00 Test Item Value Reference Range Comments SODIUM (BEAKER) (test 130 meq/L 136-145 hllg=542) POTASSIUM (BEAKER) (test 4.5 meq/L 3.5-5.1 pevz=629) CHLORIDE (BEAKER) (test 93 meq/L 98-107 ierv=597) CO2 (BEAKER) (test 25 meq/L 22-29 ktue=739) BLOOD UREA NITROGEN 40 mg/dL 7-21 (BEAKER) (test mfej=835) CREATININE (BEAKER) (test 5.37 mg/dL 0.57-1.25 xhqa=386) GLUCOSE RANDOM (BEAKER) 114 mg/dL 70-105 (test vgvd=262) CALCIUM (BEAKER) (test 8.8 mg/dL 8.4-10.2 ftla=183) EGFR (BEAKER) (test 10 mL/min/1.73 sq m ESTIMATED GFR IS NOT fvwj=7050) ACCURATE CREATININE CLEARANCE IN PREDICTING GLOMERULAR FILTRATION RATE. ESTIMATED GFR IS NOT APPLICABLE FOR DIALYSIS PATIENTS. [id number] 08:45:00 Test Item Value Reference Range Comments PHOSPHORUS (BEAKER) (test mnlg=070) 3.8 mg/dL 2.3-4.7 [id number] 08:45:00 Test Item Value Reference Range Comments MAGNESIUM (BEAKER) (test dobr=951) 1.9 mg/dL 1.6-2.6 CBC W/PLT COUNT & AUTO [id number] 05:35:00 Test Item Value Reference Range Comments WHITE BLOOD CELL COUNT (BEAKER) (test akir=486) 7.5 K/ L 3.5-10.5 RED BLOOD CELL COUNT (BEAKER) (test iizb=959) 3.03 M/ L 4.63-6.08 HEMOGLOBIN (BEAKER) (test jjil=079) 10.1 GM/DL 13.7-17.5 HEMATOCRIT (BEAKER) (test abae=156) 30.2 % 40.1-51.0 MEAN CORPUSCULAR VOLUME (BEAKER) (test bgtv=845) 99.7 fL 79.0-92.2 MEAN CORPUSCULAR HEMOGLOBIN (BEAKER) (test 33.3 pg 25.7-32.2 cejx=676) MEAN CORPUSCULAR HEMOGLOBIN CONC (BEAKER) (test 33.4 GM/DL 32.3-36.5 mkna=316) RED CELL DISTRIBUTION WIDTH (BEAKER) (test 13.1 % 11.6-14.4 mziq=976) PLATELET COUNT (BEAKER) (test ykdn=258) 180 K/CU MM 150-450 MEAN PLATELET VOLUME (BEAKER) (test byfg=656) 11.4 fL 9.4-12.4 NUCLEATED RED BLOOD CELLS (BEAKER) (test 0 /100 WBC 0-0 tktc=338) NEUTROPHILS RELATIVE PERCENT (BEAKER) (test 68 % gdrs=402) LYMPHOCYTES RELATIVE PERCENT (BEAKER) (test 16 % zfet=884) MONOCYTES RELATIVE PERCENT (BEAKER) (test 11 % chws=997) EOSINOPHILS RELATIVE PERCENT (BEAKER) (test 5 % sfmz=595) BASOPHILS RELATIVE PERCENT (BEAKER) (test 1 % aofl=122) NEUTROPHILS ABSOLUTE COUNT (BEAKER) (test 5.06 K/ L 1.78-5.38 zjpf=384) LYMPHOCYTES ABSOLUTE COUNT (BEAKER) (test 1.16 K/ L 1.32-3.57 tgkw=476) MONOCYTES ABSOLUTE COUNT (BEAKER) (test 0.82 K/ L 0.30-0.82 qkrb=181) EOSINOPHILS ABSOLUTE COUNT (BEAKER) (test 0.37 K/ L 0.04-0.54 ixuk=447) BASOPHILS ABSOLUTE COUNT (BEAKER) (test 0.05 K/ L 0.01-0.08 nlay=347) IMMATURE GRANULOCYTES-RELATIVE PERCENT (BEAKER) 1 % 0-1 (test xwpb=8490) POCT-GLUCOSE [id number] 05:35:00 Test Item Value Reference Range Comments POC-GLUCOSE METER (BEAKER) 140 mg/dL 70-[address] (test wstq=5048) [place] [address] POCT-GLUCOSE [id number] 21:25:00 Test Item Value Reference Range Comments POC-GLUCOSE METER (BEAKER) 154 mg/dL 70-[address] (test caxw=4389) [place] [address] POCT-GLUCOSE [id number] 17:24:00 Test Item Value Reference Range Comments POC-GLUCOSE METER (BEAKER) 167 mg/dL 70-[address] (test hrag=7590) [place] [address] POCT-GLUCOSE [id number] 14:06:00 Test Item Value Reference Range Comments POC-GLUCOSE METER (BEAKER) 179 mg/dL 70-[address] (test ihwx=8206) [place] [address] POCT-GLUCOSE [id number] 11:57:00 Test Item Value Reference Range Comments POC-GLUCOSE METER (BEAKER) 186 mg/dL 70-[address] (test iuxb=2960) [place] [address] [id number] 09:09:00 Test Item Value Reference Range Comments FERRITIN (BEAKER) (test bcle=826) 683 ng/mL 5-275 POCT-GLUCOSE [id number] 09:08:00 Test Item Value Reference Range Comments POC-GLUCOSE METER (BEAKER) 129 mg/dL 70-[address] (test etar=6427) [place] [address] POCT-GLUCOSE [id number] 08:19:00 Test Item Value Reference Range Comments POC-GLUCOSE METER (BEAKER) 70 mg/dL 70-[address] (test kxsb=9991) [place] [address] POCT-GLUCOSE [id number] 07:50:00 Test Item Value Reference Range Comments POC-GLUCOSE METER (BEAKER) 61 mg/dL 70-110 Notified TAMERA CISNEROS/TESTED AT [facility] (test dwbz=3067) [address] [place] [address] IRON, TIBC, % SAT. (WITHOUT FERRITIN)[id number] 07:14:00 Test Item Value Reference Range Comments IRON (BEAKER) (test nxlt=671) 51.0 ug/dL 40.0-160.0 TOTAL IRON BINDING CAPACITY (BEAKER) (test 149 ug/dL 250-450 wqwg=741) IRON % SATURATION (2) (BEAKER) (test tois=4933) 34 % 20-55 BASIC METABOLIC [id number] 06:20:00 Test Item Value Reference Range Comments SODIUM (BEAKER) (test 134 meq/L 136-145 qdao=030) POTASSIUM (BEAKER) (test 4.1 meq/L 3.5-5.1 proe=128) CHLORIDE (BEAKER) (test 97 meq/L 98-107 avqy=817) CO2 (BEAKER) (test 27 meq/L 22-29 lqzn=106) BLOOD UREA NITROGEN 26 mg/dL 7-21 (BEAKER) (test dcfa=123) CREATININE (BEAKER) (test 3.93 mg/dL 0.57-1.25 gaqi=481) GLUCOSE RANDOM (BEAKER) 66 mg/dL 70-105 (test mlkv=948) CALCIUM (BEAKER) (test 8.7 mg/dL 8.4-10.2 gzxs=272) EGFR (BEAKER) (test 15 mL/min/1.73 sq m ESTIMATED GFR IS NOT dzdb=3075) ACCURATE CREATININE CLEARANCE IN PREDICTING GLOMERULAR FILTRATION RATE. ESTIMATED GFR IS NOT APPLICABLE FOR DIALYSIS PATIENTS. [id number] 06:15:00 Test Item Value Reference Range Comments PHOSPHORUS (BEAKER) (test ghvu=155) 3.3 mg/dL 2.3-4.7 [id number] 06:15:00 Test Item Value Reference Range Comments MAGNESIUM (BEAKER) (test jplz=366) 1.9 mg/dL 1.6-2.6 RETICULOCYTE [id number] 05:23:00 Test Item Value Reference Range Comments RETICULOCYTE COUNT PCT (BEAKER) (test faiq=533) 2.0 % 0.5-1.8 CBC W/PLT COUNT & AUTO [id number] 05:23:00 Test Item Value Reference Range Comments WHITE BLOOD CELL COUNT (BEAKER) (test fpgq=436) 7.9 K/ L 3.5-10.5 RED BLOOD CELL COUNT (BEAKER) (test oorn=901) 3.01 M/ L 4.63-6.08 HEMOGLOBIN (BEAKER) (test ralp=558) 10.2 GM/DL 13.7-17.5 HEMATOCRIT (BEAKER) (test swpu=660) 30.3 % 40.1-51.0 MEAN CORPUSCULAR VOLUME (BEAKER) (test vubf=284) 100.7 fL 79.0-92.2 MEAN CORPUSCULAR HEMOGLOBIN (BEAKER) (test 33.9 pg 25.7-32.2 lcsn=077) MEAN CORPUSCULAR HEMOGLOBIN CONC (BEAKER) (test 33.7 GM/DL 32.3-36.5 riwc=217) RED CELL DISTRIBUTION WIDTH (BEAKER) (test 13.4 % 11.6-14.4 frkg=178) PLATELET COUNT (BEAKER) (test noro=000) 184 K/CU MM 150-450 MEAN PLATELET VOLUME (BEAKER) (test uoty=737) 11.2 fL 9.4-12.4 NUCLEATED RED BLOOD CELLS (BEAKER) (test 0 /100 WBC 0-0 eutq=882) NEUTROPHILS RELATIVE PERCENT (BEAKER) (test 67 % skbd=089) LYMPHOCYTES RELATIVE PERCENT (BEAKER) (test 16 % zcxa=779) MONOCYTES RELATIVE PERCENT (BEAKER) (test 12 % tygl=550) EOSINOPHILS RELATIVE PERCENT (BEAKER) (test 4 % zbuq=302) BASOPHILS RELATIVE PERCENT (BEAKER) (test 1 % auqw=771) NEUTROPHILS ABSOLUTE COUNT (BEAKER) (test 5.28 K/ L 1.78-5.38 kxtt=649) LYMPHOCYTES ABSOLUTE COUNT (BEAKER) (test 1.27 K/ L 1.32-3.57 tlhl=375) MONOCYTES ABSOLUTE COUNT (BEAKER) (test 0.98 K/ L 0.30-0.82 zufx=534) EOSINOPHILS ABSOLUTE COUNT (BEAKER) (test 0.29 K/ L 0.04-0.54 emib=107) BASOPHILS ABSOLUTE COUNT (BEAKER) (test 0.05 K/ L 0.01-0.08 fbqd=245) IMMATURE GRANULOCYTES-RELATIVE PERCENT (BEAKER) 0 % 0-1 (test szli=3402) POCT-GLUCOSE [id number] 21:10:00 Test Item Value Reference Range Comments POC-GLUCOSE METER (BEAKER) 142 mg/dL 70-110 TESTED AT [facility] [address] [facility] (test yvzq=4465) [facility] [address] POCT-GLUCOSE [id number] 17:40:00 Test Item Value Reference Range Comments POC-GLUCOSE METER (BEAKER) 162 mg/dL 70-110 TESTED AT [facility] [address] [facility] (test xdnn=2316) [facility] [address] POCT-GLUCOSE [id number] 12:21:00 Test Item Value Reference Range Comments POC-GLUCOSE METER (BEAKER) 137 mg/dL 70-110 TESTED AT [place] [id number] [facility] (test mexq=0764) [facility] [address] COMPREHENSIVE METABOLIC [id number] 06:38:00 Test Item Value Reference Range Comments TOTAL PROTEIN (BEAKER) 6.2 gm/dL 6.0-8.3 (test jqiu=414) ALBUMIN (BEAKER) (test 2.3 g/dL 3.5-5.0 kgfb=8267) ALKALINE PHOSPHATASE 70 U/L 40-150 (BEAKER) (test grfq=232) BILIRUBIN TOTAL (BEAKER) 0.4 mg/dL 0.2-1.2 (test camm=830) SODIUM (BEAKER) (test 133 meq/L 136-145 nhfo=742) POTASSIUM (BEAKER) (test 4.6 meq/L 3.5-5.1 ksrp=355) CHLORIDE (BEAKER) (test 98 meq/L 98-107 igdw=143) CO2 (BEAKER) (test 25 meq/L 22-29 dijx=498) BLOOD UREA NITROGEN 46 mg/dL 7-21 (BEAKER) (test idpy=000) CREATININE (BEAKER) (test 6.64 mg/dL 0.57-1.25 ekmj=812) GLUCOSE RANDOM (BEAKER) 51 mg/dL 70-105 (test ynov=678) CALCIUM (BEAKER) (test 8.6 mg/dL 8.4-10.2 msmn=608) AST (SGOT) (BEAKER) (test 21 U/L 5-34 gpoy=427) ALT (SGPT) (BEAKER) (test < U/L 6-55 cqjz=452) EGFR (BEAKER) (test 8 mL/min/1.73 sq m ESTIMATED GFR IS NOT bmdh=0830) ACCURATE CREATININE CLEARANCE IN PREDICTING GLOMERULAR FILTRATION RATE. ESTIMATED GFR IS NOT APPLICABLE FOR DIALYSIS PATIENTS. [id number] 06:34:00 Test Item Value Reference Range Comments PHOSPHORUS (BEAKER) (test gwxr=718) 4.8 mg/dL 2.3-4.7 [id number] 06:34:00 Test Item Value Reference Range Comments MAGNESIUM (BEAKER) (test gujk=287) 2.1 mg/dL 1.6-2.6 CBC W/PLT COUNT & AUTO [id number] 05:21:00 Test Item Value Reference Range Comments WHITE BLOOD CELL COUNT (BEAKER) (test gypo=535) 8.2 K/ L 3.5-10.5 RED BLOOD CELL COUNT (BEAKER) (test leyn=957) 3.03 M/ L 4.63-6.08 HEMOGLOBIN (BEAKER) (test zcwz=224) 9.9 GM/DL 13.7-17.5 HEMATOCRIT (BEAKER) (test uaqd=569) 30.1 % 40.1-51.0 MEAN CORPUSCULAR VOLUME (BEAKER) (test izrl=270) 99.3 fL 79.0-92.2 MEAN CORPUSCULAR HEMOGLOBIN (BEAKER) (test 32.7 pg 25.7-32.2 bwcs=342) MEAN CORPUSCULAR HEMOGLOBIN CONC (BEAKER) (test 32.9 GM/DL 32.3-36.5 snee=863) RED CELL DISTRIBUTION WIDTH (BEAKER) (test 13.5 % 11.6-14.4 yykl=451) PLATELET COUNT (BEAKER) (test mdsv=507) 192 K/CU MM 150-450 MEAN PLATELET VOLUME (BEAKER) (test xryq=661) 11.1 fL 9.4-12.4 NUCLEATED RED BLOOD CELLS (BEAKER) (test 0 /100 WBC 0-0 kcsp=083) NEUTROPHILS RELATIVE PERCENT (BEAKER) (test 69 % etec=280) LYMPHOCYTES RELATIVE PERCENT (BEAKER) (test 15 % kvnr=973) MONOCYTES RELATIVE PERCENT (BEAKER) (test 9 % lcll=811) EOSINOPHILS RELATIVE PERCENT (BEAKER) (test 5 % khhe=162) BASOPHILS RELATIVE PERCENT (BEAKER) (test 1 % bvfy=403) NEUTROPHILS ABSOLUTE COUNT (BEAKER) (test 5.65 K/ L 1.78-5.38 ylrp=636) LYMPHOCYTES ABSOLUTE COUNT (BEAKER) (test 1.24 K/ L 1.32-3.57 zytp=772) MONOCYTES ABSOLUTE COUNT (BEAKER) (test 0.74 K/ L 0.30-0.82 oslb=600) EOSINOPHILS ABSOLUTE COUNT (BEAKER) (test 0.44 K/ L 0.04-0.54 uzyd=162) BASOPHILS ABSOLUTE COUNT (BEAKER) (test 0.05 K/ L 0.01-0.08 zjui=955) IMMATURE GRANULOCYTES-RELATIVE PERCENT (BEAKER) 0 % 0-1 (test rtxs=7173) POCT-GLUCOSE [id number] 21:00:00 Test Item Value Reference Range Comments POC-GLUCOSE METER (BEAKER) 103 mg/dL 70-110 TESTED AT [address] (test imui=0678) [place] [address] RAD, CHEST, 1 VIEW, NON [id number] 19:51:00Reason for exam:->CoughShould this be performed at [...] noted. Osseous structures unremarkable. Signed: Rian Shelley Verified Date/Time: 08/22/2018 19:51:52 Reading Location: 48 [address] Consult Reading Room [id number] 19:16:00 Test Item Value Reference Range Comments PHOSPHORUS (BEAKER) (test osju=455) 4.4 mg/dL 2.3-4.7 Send if you can add on from earlier AM labsPOCT-GLUCOSE [id number] 17:53:00 Test Item Value Reference Range Comments POC-GLUCOSE METER (BEAKER) 134 mg/dL 70-110 TESTED AT [place] [id number] [facility] (test jejb=4116) [place] [address] HEPATITIS B SURFACE [id number] 13:45:00 Test Item Value Reference Range Comments HEPATITIS B SURFACE ANTIGEN (2) (BEAKER) (test Nonreactive Nonreactive ykuh=4891) POCT-GLUCOSE [id number] 10:34:00 Test Item Value Reference Range Comments POC-GLUCOSE METER (BEAKER) 74 mg/dL 70-[address] (test geky=6866) [place] [id number] POCT-GLUCOSE [id number] 07:42:00 Test Item Value Reference Range Comments POC-GLUCOSE METER (BEAKER) 118 mg/dL 70-[address] (test fpre=0604) [place] [id number] POCT-GLUCOSE [id number] 06:39:00 Test Item Value Reference Range Comments POC-GLUCOSE METER (BEAKER) 57 mg/dL 70-110 Notified TAMERA CISNEROS/TESTED AT [facility] (test ghtz=4249) [address] [place], [place] [id number] BASIC METABOLIC [id number] 04:55:00 Test Item Value Reference Range Comments SODIUM (BEAKER) (test 136 meq/L 136-145 mlrm=270) POTASSIUM (BEAKER) (test 4.1 meq/L 3.5-5.1 icxf=529) CHLORIDE (BEAKER) (test 98 meq/L 98-107 reco=054) CO2 (BEAKER) (test 29 meq/L 22-29 nnzm=151) BLOOD UREA NITROGEN 33 mg/dL 7-21 (BEAKER) (test qwme=805) CREATININE (BEAKER) (test 5.15 mg/dL 0.57-1.25 thui=064) GLUCOSE RANDOM (BEAKER) 48 mg/dL 70-105 (test rmrn=968) CALCIUM (BEAKER) (test 8.8 mg/dL 8.4-10.2 mwgk=589) EGFR (BEAKER) (test 11 mL/min/1.73 sq m ESTIMATED GFR IS NOT yfsc=9455) ACCURATE CREATININE CLEARANCE IN PREDICTING GLOMERULAR FILTRATION RATE. ESTIMATED GFR IS NOT APPLICABLE FOR DIALYSIS PATIENTS. [id number] 04:52:00 Test Item Value Reference Range Comments MAGNESIUM (BEAKER) (test mkss=153) 2.1 mg/dL 1.6-2.6 [id number] 04:47:00 Test Item Value Reference Range Comments PROTIME (BEAKER) (test xrgh=186) 16.0 seconds 11.7-14.7 INR (BEAKER) (test nydk=835) 1.3 <=5.9 PARTIAL THROMBOPLASTIN TIME (BEAKER) (test 51.1 seconds 22.5-36.0 mqxt=204) RECOMMENDED COUMADIN/WARFARIN INR THERAPY RANGESSTANDARD DOSE: 2.0 - 3.0 Includes: PROPHYLAXIS forvenous thrombosis, systemic embolization; TREATMENT for venous thrombosis and/or pulmonary embolus.HIGH RISK: Target INR is 2.5-3.5 for patients with mechanical heart valves.CBC W/PLT COUNT & AUTO [id number] 04:36:00 Test Item Value Reference Range Comments WHITE BLOOD CELL COUNT (BEAKER) (test ugpx=546) 9.1 K/ L 3.5-10.5 RED BLOOD CELL COUNT (BEAKER) (test uagp=182) 3.12 M/ L 4.63-6.08 HEMOGLOBIN (BEAKER) (test aguy=604) 10.2 GM/DL 13.7-17.5 HEMATOCRIT (BEAKER) (test mfvp=848) 31.9 % 40.1-51.0 MEAN CORPUSCULAR VOLUME (BEAKER) (test mvhf=982) 102.2 fL 79.0-92.2 MEAN CORPUSCULAR HEMOGLOBIN (BEAKER) (test 32.7 pg 25.7-32.2 huzm=298) MEAN CORPUSCULAR HEMOGLOBIN CONC (BEAKER) (test 32.0 GM/DL 32.3-36.5 fild=021) RED CELL DISTRIBUTION WIDTH (BEAKER) (test 14.0 % 11.6-14.4 bjej=212) PLATELET COUNT (BEAKER) (test kwdt=662) 194 K/CU MM 150-450 MEAN PLATELET VOLUME (BEAKER) (test lwkd=820) 11.2 fL 9.4-12.4 NUCLEATED RED BLOOD CELLS (BEAKER) (test 0 /100 WBC 0-0 wlwe=790) NEUTROPHILS RELATIVE PERCENT (BEAKER) (test 73 % rydb=687) LYMPHOCYTES RELATIVE PERCENT (BEAKER) (test 11 % sgiv=602) MONOCYTES RELATIVE PERCENT (BEAKER) (test 10 % xchi=017) EOSINOPHILS RELATIVE PERCENT (BEAKER) (test 5 % oczg=394) BASOPHILS RELATIVE PERCENT (BEAKER) (test 0 % fact=641) NEUTROPHILS ABSOLUTE COUNT (BEAKER) (test 6.63 K/ L 1.78-5.38 qopo=800) LYMPHOCYTES ABSOLUTE COUNT (BEAKER) (test 1.04 K/ L 1.32-3.57 xqvk=349) MONOCYTES ABSOLUTE COUNT (BEAKER) (test 0.92 K/ L 0.30-0.82 fned=364) EOSINOPHILS ABSOLUTE COUNT (BEAKER) (test 0.44 K/ L 0.04-0.54 aouy=293) BASOPHILS ABSOLUTE COUNT (BEAKER) (test 0.04 K/ L 0.01-0.08 pgyo=337) IMMATURE GRANULOCYTES-RELATIVE PERCENT (BEAKER) 0 % 0-1 (test ieoh=6423) ANG, THROMBECTOMY, A-V [id number] 14:11:00If unable then place tunneled dialysis catheterReason [...] catheter for an Amplatz wire. A 7 Liberian sheath was placed at the access site. [...] as (Ka,r): 45 mGy Signed: Mariah Calzada [facility]ITAL[facility] Verified Date/Time: 09/18/2017 14:11:58 Reading Location: [place] [id number] Angio Body Reading Room Electronically signed by: MARIAH CALZADA M.D. on 2017 02:11 PMPOCT-GLUCOSE [id number] 13:43:00 Test Item Value Reference Range Comments POC-GLUCOSE METER (BEAKER) 76 mg/dL 70-110 TESTED AT [facility] [address] [facility] (test giil=3581) [facility] [address] HEMOGLOBIN [id number] 08:02:00 Test Item Value Reference Range Comments HEMOGLOBIN A1C (BEAKER) (test kdcc=435) 7.0 % 4.3-6.1 BASIC METABOLIC [id number] 07:34:00 Test Item Value Reference Range Comments SODIUM (BEAKER) (test 140 meq/L 136-145 xrtc=010) POTASSIUM (BEAKER) (test 5.0 meq/L 3.5-5.1 ixqz=612) CHLORIDE (BEAKER) (test 101 meq/L 98-107 sysi=478) CO2 (BEAKER) (test 22 meq/L 22-29 xtat=240) BLOOD UREA NITROGEN 87 mg/dL 7-21 (BEAKER) (test cueg=037) CREATININE (BEAKER) (test 10.99 mg/dL 0.57-1.25 oooj=131) GLUCOSE RANDOM (BEAKER) 87 mg/dL 70-105 (test nwza=138) CALCIUM (BEAKER) (test 7.8 mg/dL 8.4-10.2 bdtb=052) EGFR (BEAKER) (test 5 mL/min/1.73 sq m ESTIMATED GFR IS NOT solt=9132) ACCURATE CREATININE CLEARANCE IN PREDICTING GLOMERULAR FILTRATION RATE. ESTIMATED GFR IS NOT APPLICABLE FOR DIALYSIS PATIENTS. [id number] 07:28:00 Test Item Value Reference Range Comments PHOSPHORUS (BEAKER) (test ruli=210) 6.0 mg/dL 2.3-4.7 [id number] 07:28:00 Test Item Value Reference Range Comments MAGNESIUM (BEAKER) (test qeif=794) 2.3 mg/dL 1.6-2.6 CALCIUM, [id number] 07:18:00 Test Item Value Reference Range Comments CALCIUM IONIZED (BEAKER) (test ifyx=793) 1.00 mmol/L 1.12-1.27 PH, BLOOD (BEAKER) (test dxzp=9481) 7.27 HEPATITIS B SURFACE [id number] 07:11:00 Test Item Value Reference Range Comments HEPATITIS B SURFACE ANTIGEN (2) (BEAKER) (test Nonreactive Nonreactive douq=6748) Pls add to specimen drawn earlier.POCT-GLUCOSE [id number] 07:06:00 Test Item Value Reference Range Comments POC-GLUCOSE METER (BEAKER) 118 mg/dL 70-[address] (test kinj=0944) [facility] [address] PROTHROMBIN [id number] 06:14:00 Test Item Value Reference Range Comments PROTIME (BEAKER) (test ckuq=561) 14.2 seconds 11.7-14.7 INR (BEAKER) (test aobm=676) 1.1 <=5.9 RECOMMENDED COUMADIN/WARFARIN INR THERAPY RANGESSTANDARD DOSE: 2.0 - 3.0 Includes: PROPHYLAXIS forvenous thrombosis, systemic embolization; TREATMENT for venous thrombosis and/or pulmonary embolus.HIGH RISK: Target INR is 2.5-3.5 for patients with mechanical heart valves.CBC W/PLT COUNT & AUTO [id number] 06:04:00 Test Item Value Reference Range Comments WHITE BLOOD CELL COUNT (BEAKER) (test wcog=610) 5.7 K/ L 3.5-10.5 RED BLOOD CELL COUNT (BEAKER) (test bvzq=763) 3.78 M/ L 4.63-6.08 HEMOGLOBIN (BEAKER) (test ehvt=084) 13.0 GM/DL 13.7-17.5 HEMATOCRIT (BEAKER) (test busc=582) 39.4 % 40.1-51.0 MEAN CORPUSCULAR VOLUME (BEAKER) (test ljvd=174) 104.2 fL 79.0-92.2 MEAN CORPUSCULAR HEMOGLOBIN (BEAKER) (test 34.4 pg 25.7-32.2 seyg=668) MEAN CORPUSCULAR HEMOGLOBIN CONC (BEAKER) (test 33.0 GM/DL 32.3-36.5 gznd=265) RED CELL DISTRIBUTION WIDTH (BEAKER) (test 14.1 % 11.6-14.4 zogk=847) PLATELET COUNT (BEAKER) (test tojn=006) 82 K/CU MM 150-450 MEAN PLATELET VOLUME (BEAKER) (test hans=251) 13.3 fL 9.4-12.4 NUCLEATED RED BLOOD CELLS (BEAKER) (test 0 /100 WBC 0-0 llpi=818) NEUTROPHILS RELATIVE PERCENT (BEAKER) (test 62 % tcfy=535) LYMPHOCYTES RELATIVE PERCENT (BEAKER) (test 23 % ikis=088) MONOCYTES RELATIVE PERCENT (BEAKER) (test 11 % rphc=135) EOSINOPHILS RELATIVE PERCENT (BEAKER) (test 4 % skiv=815) BASOPHILS RELATIVE PERCENT (BEAKER) (test 1 % gaew=871) NEUTROPHILS ABSOLUTE COUNT (BEAKER) (test 3.53 K/ L 1.78-5.38 qjxc=904) LYMPHOCYTES ABSOLUTE COUNT (BEAKER) (test 1.30 K/ L 1.32-3.57 mknx=189) MONOCYTES ABSOLUTE COUNT (BEAKER) (test mwro=183) 0.62 K/ L 0.30-0.82 EOSINOPHILS ABSOLUTE COUNT (BEAKER) (test 0.22 K/ L 0.04-0.54 vrys=093) BASOPHILS ABSOLUTE COUNT (BEAKER) (test gerw=920) 0.03 K/ L 0.01-0.08 IMMATURE GRANULOCYTES-RELATIVE PERCENT (BEAKER) 1 % 0-1 (test ldwa=0059) POCT-GLUCOSE [id number] 22:23:00 Test Item Value Reference Range Comments POC-GLUCOSE METER (BEAKER) 185 mg/dL 70-[address] (test mfwz=0239) [place] [id number] POCT-GLUCOSE [id number] 21:27:00 Test Item Value Reference Range Comments POC-GLUCOSE METER (BEAKER) 198 mg/dL 70-[address] (test elsd=1320) [place] [address] POCT-GLUCOSE [id number] 17:43:00 Test Item Value Reference Range Comments POC-GLUCOSE METER (BEAKER) 164 mg/dL 70-[address] (test mzyx=2954) [place] [address] HEPATITIS B SURFACE [id number] 15:14:00 Test Item Value Reference Range Comments HEPATITIS B SURFACE ANTIGEN (2) (BEAKER) (test Nonreactive Nonreactive ygib=0742) Pls add to specimen drawn earlier.BASIC METABOLIC [id number] 13:34:00 Test Item Value Reference Range Comments SODIUM (BEAKER) (test 140 meq/L 136-145 fpww=089) POTASSIUM (BEAKER) (test 5.4 meq/L 3.5-5.1 tbfx=330) CHLORIDE (BEAKER) (test 101 meq/L 98-107 blsf=089) CO2 (BEAKER) (test 19 meq/L 22-29 znha=446) BLOOD UREA NITROGEN 123 mg/dL 7-21 (BEAKER) (test sycc=967) CREATININE (BEAKER) (test 12.96 mg/dL 0.57-1.25 vyuo=718) GLUCOSE RANDOM (BEAKER) 79 mg/dL 70-105 (test zwhe=863) CALCIUM (BEAKER) (test 7.9 mg/dL 8.4-10.2 hole=713) EGFR (BEAKER) (test 4 mL/min/1.73 sq m ESTIMATED GFR IS NOT fwyc=9206) ACCURATE CREATININE CLEARANCE IN PREDICTING GLOMERULAR FILTRATION RATE. ESTIMATED GFR IS NOT APPLICABLE FOR DIALYSIS PATIENTS. [id number] 13:24:00 Test Item Value Reference Range Comments MAGNESIUM (BEAKER) (test mriw=325) 2.3 mg/dL 1.6-2.6 [id number] 13:24:00 Test Item Value Reference Range Comments PHOSPHORUS (BEAKER) (test jzhn=773) 6.2 mg/dL 2.3-4.7 POCT-GLUCOSE [id number] 12:20:00 Test Item Value Reference Range Comments POC-GLUCOSE METER (BEAKER) 84 mg/dL 70-110 TESTED AT [facility] [address] [facility] (test rokk=1875) [facility] [address] ANG, NON-TUNNELED CATH >5 Y.O. [id number] 11:23:00Reason for exam:-> please declot the AV fistula, if unable to do that he needs catheter exchangeFINAL REPORT Nontunneled dialysis catheter insertion, 09/16/2017. History: Left upper extremity AV fistula thrombosed. Modality: Fluoroscopy and sonography. Sedation: None. Geoscience Laboratory Technician: Edgar Chandler MD. Midlevel Provider: None. Approach: Right internal jugular vein Estimated [...] using sonographic and fluoroscopic guidance. Signed: Edgar Chanlder MDReport Verified Date/Time: 2017 11:23:57 Reading Location: [place] [id number] AngioBody Reading Room POCT- GLUCOSE [id number] 07:38:00 Test Item Value Reference Range Comments POC-GLUCOSE METER (BEAKER) 89 mg/dL 70-[address] (test havu=2646) [place] [address] PROTHROMBIN [id number] 05:19:00 Test Item Value Reference Range Comments PROTIME (BEAKER) (test oqrm=610) 14.8 seconds 11.7-14.7 INR (BEAKER) (test vnhb=142) 1.2 <=5.9 RECOMMENDED COUMADIN/WARFARIN INR THERAPY RANGESSTANDARD DOSE: 2.0 - 3.0 Includes: PROPHYLAXIS forvenous thrombosis, systemic embolization; TREATMENT for venous thrombosis and/or pulmonary embolus.HIGH RISK: Target INR is 2.5-3.5 for patients with mechanical heart valves.POCT-GLUCOSE [id number] 23:26:00 Test Item Value Reference Range Comments POC-GLUCOSE METER (BEAKER) 261 mg/dL 70-[address] (test uqzy=8988) [place] [address]
[2019-04-14 23:10] LABS: Absolute Lymphocytes (CBC) 0.9 K/uL (0.7-4.9); Basophils % 0.2 % (0-1.3); Hematocrit 33.6 % (39.6-49.0); Lymphocytes % 7.8 % (15.3-44.8); MPV 9.5 fL (7.6-11.3); RBC Red Blood Cell Count 3.45 M/uL (4.33-5.43)
[2019-04-14 23:13] LABS: Protime INR 1.04
[2019-04-14 23:25] LABS: Bilirubin Direct 0.2 mg/dL (0-0.2); Bilirubin Total 0.3 mg/dL (0.2-1.0); Magnesium 2.6 mg/dL (1.8-2.4); Potassium 3.8 mmol/L (3.5-5.1); Protein, Total 7.6 g/dL (6.4-8.2); Troponin (Emerg Dept Use Only) 0.03 ng/mL (0.0-0.045)
[2019-04-14] MEDS ORDERED: FUROSEMIDE 40 MG/4 ML VIAL ONE (23:52)
--- NOTE | 2019-04-15 01:10 | EDPHYS ---
Physician Documentation [facility] Name: Nadir Mendez Age: 74 yrs Sex: Male : 1945 Arrival Date: 04/14/2019 Time: 22:00 Bed 3 Private MD: ED Physician Santhosh Fu HPI: 04/15 01:16 This 74 yrs old Male presents to ER via EMS with complaints of Shortness Of ps1 Breath. 01:16 Pt BIBEMS for reported hypoxia. Patient has O2 PRN and BIBEMS on non-rebreather for ps1 hypoxia on BNC. Hx of ESRD on dialysis. Gets dialysis tomorrow. Appears CHF. Transitioned to 3L BNC upon arrival and O2 sats mid 90s. No acute distress on my examination. Hx of PNA. No fever. . Historical: - Home Meds: 04/14 22:23 midodrine 5 mg Oral tab 1 tabs every Tue, Nicole, Sat 30 mins prior to dialysis [Active]; ea Lantus 100 unit/mL Sub-Q soln 15 unit daily [Active]; GlucaGen HypoKit 1 mg injection solr 1 mL as needed [Active]; gabapentin 100 mg Oral cap twice a day for Neuropathic Pain [Active]; Lyrica 75 mg Oral 1 cap 2 times per day [Active]; famotidine 20 mg Oral tab 1 tab once daily [Active]; clopidogrel 75 mg Oral tab 1 tab nightly [Active]; carbidopa-levodopa 25-100 mg Oral tab 1 tab twice a day [Active]; aspirin 81 mg Oral TbEC 1 tab once daily [Active]; Arginaid 4.5 gram-156 mg/9.2 gram Oral pwpk daily [Active]; acetaminophen-codeine 300-30 mg Oral tab 1 tab twice a day for Pain [Active]; - PMHx: 22:23 Ulcers; Renal Disease; Tues, Thurs, Sat; PVD; Parkinson's; Pancreatitis; Hypertension; ea neuropathy; Hyperlipidemia; Hepatitis; GERD; Dialysis; Diabetes - NIDDM; Depression; Anemia; Alzheimers; - Immunization history:: Adult Immunizations up to date. - Social history:: Smoking status: Patient/guardian denies using tobacco. - Ebola Screening: : No symptoms or risks identified at this time. ROS: 08/06 01:16 Constitutional: Negative for fever, chills, and weight loss, Eyes: Negative for injury, ps1 pain, redness, and discharge, ENT: Negative for injury, pain, and discharge, Cardiovascular: Negative for chest pain, palpitations, and edema, Abdomen/GI: Negative for abdominal pain, nausea, vomiting, diarrhea, and constipation, Back: Negative for injury and pain, MS/Extremity: Negative for injury and deformity, Skin: Negative for injury, rash, and discoloration, Neuro: Negative for headache, weakness, numbness, tingling, and seizure. Respiratory: Positive for dyspnea on exertion, orthopnea, shortness of breath. Exam: 01:16 Constitutional: This is a well developed, well nourished patient who is awake, alert, ps1 and in no acute distress. Head/Face: Normocephalic, atraumatic. Eyes: Pupils equal round and reactive to light, extra-ocular motions intact. Lids and lashes normal. Conjunctiva and sclera are non-icteric and not injected. Chest/axilla: Normal chest wall appearance and motion. Nontender with no deformity. No lesions are appreciated. Cardiovascular: Regular rate and rhythm. No gallops, murmurs, or rubs. Normal PMI, no JVD. No pulse deficits. Abdomen/GI: Soft, non-tender, with normal bowel sounds. No distension or tympany. No guarding or rebound. No evidence of tenderness throughout. Skin: Warm, dry with normal turgor. Normal color with no rashes, no lesions, and no evidence of cellulitis. MS/ Extremity: Pulses equal, no cyanosis. Neurovascular intact. Full, normal range of motion. 01:16 Respiratory: the patient does not display signs of respiratory distress, Respirations: normal, Breath sounds: rhonchi, that are mild, are located in both bases, Respiratory rate: 13 Vital Signs: 04/14 22:03 BP 143 / 81; Pulse 80; Resp 20; Temp 97.9; Pulse Ox 97% on 3 lpm NC; ea 23:20 BP 134 / 74; Pulse 80; Resp 18; Pulse Ox 95% on 3 lpm NC; Weight 77.11 kg; Height 5 ft. ea 5 in. (165.10 cm); 04/15 00:00 BP 146 / 71; Pulse 78; Resp 13; Pulse Ox 99% on 4 lpm NC; ea 01:30 BP 144 / 76; Pulse 78; Resp 18; Temp 98; Pulse Ox 100% on 2 lpm NC; ea 02:15 BP 143 / 70; Pulse 76; Resp 16; Temp 98; Pulse Ox 100% on 2 lpm NC; ea 04/14 23:20 Body Mass Index 28.29 (77.11 kg, 165.10 cm) ea MDM: 04/14 22:43 Patient medically screened. ps1 04/15 01:19 Data reviewed: vital signs, nurses notes, lab test result(s), radiologic studies, and ps1 as a result, I will discharge patient. Counseling: I had a detailed discussion with the patient and/or guardian regarding: the historical points, exam findings, and any diagnostic results supporting the discharge/admit diagnosis, the presence of at least one elevated blood pressure reading (>120/80) during this emergency department visit, radiology results, the need for outpatient follow up, Go to dialysis in morning. patient to supervised [place] care. . 04/14 22:31 Order name: Basic Metabolic Panel; Complete Time: 23:45 04/14 22:31 Order name: CBC with Diff; Complete Time: 23:45 04/14 22:31 Order name: LFT's; Complete Time: 23:45 04/14 22:31 Order name: Magnesium; Complete Time: 23:45 04/14 22:31 Order name: NT PRO-BNP; Complete Time: 23:45 04/14 22:31 Order name: PT-INR; Complete Time: 23:45 04/14 22:31 Order name: Troponin (emerg Dept Use Only); Complete Time: 23:45 04/14 22:31 Order name: XRAY Chest (1 view) 04/14 22:31 Order name: EKG; Complete Time: 22:33 04/14 22:31 Order name: Cardiac monitoring; Complete Time: 23:17 04/14 22:31 Order name: EKG - Nurse/Tech; Complete Time: 23:17 04/14 22:31 Order name: IV Saline Lock; Complete Time: 22:53 04/14 22:31 Order name: Labs collected and sent; Complete Time: 22:53 04/14 22:31 Order name: O2 Per Protocol; Complete Time: 22:53 04/14 22:31 Order name: O2 Sat Monitoring; Complete Time: 22:53 ea Administered Medications: 04/14 23:52 Drug: Lasix 40 mg Route: IVP; Site: right antecubital; ea 04/15 00:30 Follow up: Response: No adverse reaction ea Disposition: :19 Chart complete. ps1 Disposition: 04/15/19 01:21 Discharged to Home. Impression: Acute CHF exacerbation, Shortness of breath. - Condition is Stable. - Discharge Instructions: Heart Failure. - Medication Reconciliation Form, Thank You Letter, Antibiotic Education, Prescription Opioid Use, SBAR form form. - Follow up: Private Physician; When: Tomorrow; Reason: Recheck today's complaints, Continuance of care, Re-evaluation by your physician. Follow up: Emergency Department; When: As needed; Reason: Fever > 102 F, Trouble breathing, Worsening of condition. - Problem is chronic. - Symptoms have improved. Signatures: Dispatcher [employer] Josefina Bean RN RN ea Singer, Phillip, MD MD ps1 Corrections: (The following items were deleted from the chart) 01:20 01:09 Hospitalization Ordered by Aníbal Hsu DO for Observation. Preliminary ps1 diagnosis is acute chf exacerbation; Hypoxia. Bed requested for Telemetry/MedSurg (observation). Status is Observation. Condition is Stable. Problem is an acute exacerbation. Symptoms have improved. UTI on Admission? No. ps1 02:21 01:21 04/15/2019 01:21 Discharged to Home. Impression: Acute CHF exacerbation; ea Shortness of breath. Condition is Stable. Forms are Medication Reconciliation Form, Thank You Letter, Antibiotic Education, Prescription Opioid Use. Follow up: Private Physician; When: Tomorrow; Reason: Recheck today's complaints, Continuance of care, Re-evaluation by your physician. Follow up: Emergency Department; When: As needed; Reason: Fever > 102 F, Trouble breathing, Worsening of condition. Problem is chronic. Symptoms have improved. ps1
--- NOTE | 2019-04-15 01:10 | ER ---
Nurse's Notes [facility] Name: Nadir Mendez Age: 74 yrs Sex: Male : 1945 Arrival Date: 04/14/2019 Time: 22:00 Bed 3 Private MD: Diagnosis: Acute CHF exacerbation;Shortness of breath Presentation: 04/14 21:50 Presenting complaint: EMS states: Called to [facility], nursing ea staff reported pt O2 sats dropping to 80% on nasal cannula and was hard to arouse. pt was placed on a nonrebreather by EMS sats increased to 100%. Transition of care: patient was received from another setting of care (long-term care facility), [facility]. Onset of symptoms was April 14, 2019. Risk Assessment: Do you want to hurt yourself or someone else? Patient reports no desire to harm self or others. Initial Sepsis Screen: Does the patient meet any 2 criteria? No. Patient's initial sepsis screen is negative. Does the patient have a suspected source of infection? Yes: Skin breakdown/wound. Care prior to arrival: Oxygen administered. via a non-rebreather mask. 21:50 Method Of Arrival: EMS: [facility] ea 21:50 Acuity: ASTER 3 ea Triage Assessment: 22:23 General: Appears uncomfortable, Behavior is drowsy. Pain: Denies pain. Neuro: Level of ea Consciousness is awake, obeys commands, Oriented to person. Cardiovascular: Patient's skin is warm and dry. Respiratory: Onset: The symptoms/episode began/occurred today, the patient reports symptoms have resolved. Respiratory: Airway is patent Respiratory effort is even, unlabored, Respiratory pattern is regular, symmetrical, Breath sounds with crackles bilaterally. in left posterior lower lobe and right posterior lower lobe. GI: PEG tube clamped. Site clean. Historical: - Home Meds: 22:23 midodrine 5 mg Oral tab 1 tabs every Sun, Nicole, Sat 30 mins prior to dialysis [Active]; ea Lantus 100 unit/mL Sub-Q soln 15 unit daily [Active]; GlucaGen HypoKit 1 mg injection solr 1 mL as needed [Active]; gabapentin 100 mg Oral cap twice a day for Neuropathic Pain [Active]; Lyrica 75 mg Oral 1 cap 2 times per day [Active]; famotidine 20 mg Oral tab 1 tab once daily [Active]; clopidogrel 75 mg Oral tab 1 tab nightly [Active]; carbidopa-levodopa 25-100 mg Oral tab 1 tab twice a day [Active]; aspirin 81 mg Oral TbEC 1 tab once daily [Active]; Arginaid 4.5 gram-156 mg/9.2 gram Oral pwpk daily [Active]; acetaminophen-codeine 300-30 mg Oral tab 1 tab twice a day for Pain [Active]; - PMHx: 22:23 Ulcers; Renal Disease; Tues, Thurs, Sat; PVD; Parkinson's; Pancreatitis; Hypertension; ea neuropathy; Hyperlipidemia; Hepatitis; GERD; Dialysis; Diabetes - NIDDM; Depression; Anemia; Alzheimers; - Immunization history:: Adult Immunizations up to date. - Social history:: Smoking status: Patient/guardian denies using tobacco. - Ebola Screening: : No symptoms or risks identified at this time. Screenin:20 Abuse screen: Denies threats or abuse. Nutritional screening: No deficits noted. ea Tuberculosis screening: No symptoms or risk factors identified. Fall Risk None identified. Assessment: 22:23 Reassessment: See triage assessment. ea 22:31 General: Appears in no apparent distress. comfortable, Behavior is calm, cooperative. rv Neuro:. 23:18 Reassessment: Patient and/or family updated on plan of care and expected duration. Pain ea level reassessed. Pt resting with eyes closed, respirations even and unlabored. Remains on 3L of O2 per nasal cannula, pt tolerating well. No s/s of pain or discomfort noted at this time. Respiratory: Airway is patent Respiratory effort is even, unlabored, Respiratory pattern is regular, symmetrical. 04/15 00:07 Reassessment: Patient appears in no apparent distress at this time. No changes from ea previously documented assessment. Patient and/or family updated on plan of care and expected duration. Pain level reassessed. Patient is alert, oriented x 3, equal unlabored respirations, skin warm/dry/pink. 01:45 Reassessment: Report given to Rere Echeverria LVN at [facility], ea reports she would call back on transportation availability. 02:13 Reassessment: Patient and/or family updated on plan of care and expected duration. Pain ea level reassessed. [facility] at facility for transfer back to [facility]. Report given to EMS. Respirations even and unlabored. chest expansions even and symmetrical. No s/s of pain or discomfort noted at this time. Pt left ED via stretcher per EMS, with O2 at 2 L per nasal cannula. Pt tolerating well. Vital Signs: 04/14 22:03 BP 143 / 81; Pulse 80; Resp 20; Temp 97.9; Pulse Ox 97% on 3 lpm NC; ea 23:20 BP 134 / 74; Pulse 80; Resp 18; Pulse Ox 95% on 3 lpm NC; Weight 77.11 kg; Height 5 ft. ea 5 in. (165.10 cm); 04/15 00:00 BP 146 / 71; Pulse 78; Resp 13; Pulse Ox 99% on 4 lpm NC; ea 01:30 BP 144 / 76; Pulse 78; Resp 18; Temp 98; Pulse Ox 100% on 2 lpm NC; ea 02:15 BP 143 / 70; Pulse 76; Resp 16; Temp 98; Pulse Ox 100% on 2 lpm NC; ea 04/14 23:20 Body Mass Index 28.29 (77.11 kg, 165.10 cm) ea ED Course: 04/14 22:00 Patient arrived in ED. ea 22:04 Santhosh Fu MD is Attending Physician. ps1 22:05 Jsoefina Burns, TAMERA is Primary Nurse. ea 22:06 Inserted saline lock: 20 gauge in right antecubital area, using aseptic technique. rv Blood collected. 22:06 First set of blood cultures drawn by me. rv 22:20 Triage completed. ea 22:20 Patient has correct armband on for positive identification. Bed in low position. Call ea light in reach. Side rails up X2. 22:20 Arm band placed on left wrist. Patient placed in an exam room, on a stretcher, on ea oxygen, on couturiere, on pulse oximetry. 22:54 XRAY Chest (1 view) In Process Unspecified. EDMS 04/15 01:08 Aníbal Hsu DO is Hospitalizing Provider. ps1 01:52 No provider procedures requiring assistance completed. ea 02:18 IV discontinued, intact, bleeding controlled, No redness/swelling at site. Pressure ea dressing applied. Administered Medications: 04/14 23:52 Drug: Lasix 40 mg Route: IVP; Site: right antecubital; ea 04/15 00:30 Follow up: Response: No adverse reaction ea Outcome: 01:09 Decision to Hospitalize by Provider. ps1 01:21 Discharge ordered by . ps1 02:20 Discharged to [facility]. Report called to Rere BEAUCHAMP \T\ [facility] Transfer ea form completed. 02:20 Condition: stable 02:20 Discharge instructions given to [facility], Instructed on discharge instructions, Demonstrated understanding of instructions, follow-up care. 02:21 Patient left the ED. ea Signatures: Dispatcher [employer] EDMS Josefina Burns RN RN Santhosh Barbosa MD MD ps1 Shimon Quintana RN RN rv Corrections: (The following items were deleted from the chart) 02:20 02:13 Reassessment: Patient and/or family updated on plan of care and expected ea duration. Pain level reassessed. [facility] at facility for transfer back to [facility]. Report given to EMS. Pt left ED via stretcher per EMS, with O2 at 2 L per nasal cannula. Pt tolerating well ea
[2019-04-15 03:20] VITALS: TEMP 98; O2SAT 100
[2019-04-15 03:21] VITALS: BP 143/70
--- NOTE | 2019-04-15 07:35 | EKG ---
Test Date: 2019-04-14 Test Time: 23:14:14 [employer] Dash[employer] Developer: ROGER MEASUREMENT RESULTS: Intervals: Rate: 77 [place]: 144 QRSD: 94 QT: 378 QTc: 427 [place]: P: [place]: 144 QRS: -55 T: 73 INTERPRETIVE STATEMENTS: Sinus rhythm with occasional premature ventricular complexes Left axis deviation Pulmonary disease pattern Abnormal ECG Compared to ECG 03/26/2019 20:03:25 Ventricular premature complex(es) now present Left-axis deviation now present T-wave abnormality no longer present Electronically Signed On 04-15-19 07:33:51 CDT by Suyra Palomino
--- NOTE | 2019-04-15 08:43 | RAD REPORT ---
EXAM DESCRIPTION: Anay Single View04/14/2019 10:53 pm CLINICAL HISTORY: Shortness of breath COMPARISON: March 2019 FINDINGS: Mild to moderate bilateral patchy lung opacities. Heart is normal size IMPRESSION: Mild to moderate bilateral patchy pulmonary opacities probably represent pneumonia
== END 2019-04-15 02:21 | disposition home or self-care (01) ==
LOC: ER 21:51
DX: E11.22 Type 2 diabetes mellitus with diabetic chronic kidney disease (principal); I13.2 Hypertensive heart and chronic kidney disease with heart failure and with stage 5 chronic kidney disease, or end stage renal disease; I50.9 Heart failure, unspecified; N18.6 End stage renal disease; Z99.2 Dependence on renal dialysis; E78.5 Hyperlipidemia, unspecified; K21.9 Gastro-esophageal reflux disease without esophagitis; Z79.82 Long term (current) use of aspirin; Z79.4 Long term (current) use of insulin
CPT/HCPCS: 93005; 85025; 80048; 36415; 83735; 85610; 80076; 84484; 83880; 71045; 96374; 99284; J1940

== ENCOUNTER 2019-04-20 23:44 | Emergency (ER) | payer OTHER ==
--- OUTSIDE RECORDS SUMMARY | 2019-04-20 23:54 | XMS REPORT ---
:1945 [facility] Address [address] [place] [address] Care Team Providers Name Role Phone FLORINA [...] (BEAKER) (test 190 mg/dL 70-110 TESTED AT [facility] [address] [facility] jnzj=[id number]) [facility] [address] BASIC METABOLIC [id number] 05:57:00 Test Item Value Reference Range Comments SODIUM (BEAKER) (test 140 meq/L 136-145 vwxt=721) POTASSIUM (BEAKER) (test 3.6 meq/L 3.5-5.1 hryu=381) CHLORIDE (BEAKER) (test 103 meq/L 98-107 phey=416) CO2 (BEAKER) (test 29 meq/L 22-29 ghef=512) BLOOD UREA NITROGEN 26 mg/dL 7-21 (BEAKER) (test rjdc=722) CREATININE (BEAKER) (test 2.26 mg/dL 0.57-1.25 szgi=625) GLUCOSE RANDOM (BEAKER) 191 mg/dL 70-105 (test hssb=074) CALCIUM (BEAKER) (test 8.5 mg/dL 8.4-10.2 auat=477) EGFR (BEAKER) (test 28 mL/min/1.73 sq m ESTIMATED GFR IS NOT gctt=9277) ACCURATE CREATININE CLEARANCE IN PREDICTING GLOMERULAR FILTRATION RATE. ESTIMATED GFR IS NOT APPLICABLE FOR DIALYSIS PATIENTS. [id number] 05:54:00 Test Item Value Reference Range Comments PHOSPHORUS (BEAKER) (test upfv=742) 2.9 mg/dL 2.3-4.7 [id number] 05:54:00 Test Item Value Reference Range Comments MAGNESIUM (BEAKER) (test witq=445) 2.1 mg/dL 1.6-2.6 POCT-GLUCOSE [id number] 05:52:00 Test Item Value Reference Range Comments POC-GLUCOSE METER (BEAKER) 171 mg/dL 70-110 TESTED AT [facility] [address] [facility] (test mnis=8856) [place] [address] CBC W/PLT COUNT & AUTO [id number] 05:06:00 Test Item Value Reference Range Comments WHITE BLOOD CELL COUNT (BEAKER) (test dwji=908) 10.1 K/ L 3.5-10.5 RED BLOOD CELL COUNT (BEAKER) (test lmdq=834) 3.49 M/ L 4.63-6.08 HEMOGLOBIN (BEAKER) (test yuif=740) 10.9 GM/DL 13.7-17.5 HEMATOCRIT (BEAKER) (test mlfj=874) 34.9 % 40.1-51.0 MEAN CORPUSCULAR VOLUME (BEAKER) (test aoit=587) 100.0 fL 79.0-92.2 MEAN CORPUSCULAR HEMOGLOBIN (BEAKER) (test 31.2 pg 25.7-32.2 hkmk=575) MEAN CORPUSCULAR HEMOGLOBIN CONC (BEAKER) (test 31.2 GM/DL 32.3-36.5 dsjq=644) RED CELL DISTRIBUTION WIDTH (BEAKER) (test 16.6 % 11.6-14.4 ugrl=266) PLATELET COUNT (BEAKER) (test mmlw=872) 227 K/CU MM 150-450 MEAN PLATELET VOLUME (BEAKER) (test qkas=525) 11.3 fL 9.4-12.4 NUCLEATED RED BLOOD CELLS (BEAKER) (test 0 /100 WBC 0-0 kdse=014) NEUTROPHILS RELATIVE PERCENT (BEAKER) (test 81 % jxvh=422) LYMPHOCYTES RELATIVE PERCENT (BEAKER) (test 8 % nqhd=843) MONOCYTES RELATIVE PERCENT (BEAKER) (test 6 % yege=052) EOSINOPHILS RELATIVE PERCENT (BEAKER) (test 4 % dlgy=505) BASOPHILS RELATIVE PERCENT (BEAKER) (test 1 % kqdi=989) NEUTROPHILS ABSOLUTE COUNT (BEAKER) (test 8.20 K/ L 1.78-5.38 btyv=072) LYMPHOCYTES ABSOLUTE COUNT (BEAKER) (test 0.81 K/ L 1.32-3.57 kgel=345) MONOCYTES ABSOLUTE COUNT (BEAKER) (test 0.58 K/ L 0.30-0.82 vlut=500) EOSINOPHILS ABSOLUTE COUNT (BEAKER) (test 0.45 K/ L 0.04-0.54 galx=075) BASOPHILS ABSOLUTE COUNT (BEAKER) (test 0.05 K/ L 0.01-0.08 mwbi=931) IMMATURE GRANULOCYTES-RELATIVE PERCENT (BEAKER) 1 % 0-1 (test hwss=7453) POCT-GLUCOSE [id number] 23:47:00 Test Item Value Reference Range Comments POC-GLUCOSE METER (BEAKER) 125 mg/dL 70-110 TESTED AT [address] (test thqm=2597) [facility] [address] POCT-GLUCOSE [id number] 16:43:00 Test Item Value Reference Range Comments POC-GLUCOSE METER (BEAKER) 105 mg/dL 70-110 TESTED AT [address] (test smqf=2534) [facility] [address] POCT-GLUCOSE [id number] 11:31:00 Test Item Value Reference Range Comments POC-GLUCOSE METER (BEAKER) 181 mg/dL 70-110 TESTED AT [address] (test vvos=5043) [facility] [address] CALCIUM, [id number] 07:38:00 Test Item Value Reference Range Comments CALCIUM IONIZED (BEAKER) (test juom=501) 1.14 mmol/L 1.12-1.27 PH, BLOOD (BEAKER) (test ozhs=9702) 7.41 BASIC METABOLIC [id number] 05:59:00 Test Item Value Reference Range Comments SODIUM (BEAKER) (test 138 meq/L 136-145 zvtj=956) POTASSIUM (BEAKER) (test 4.4 meq/L 3.5-5.1 zkiq=267) CHLORIDE (BEAKER) (test 101 meq/L 98-107 alps=107) CO2 (BEAKER) (test 27 meq/L 22-29 jznm=725) BLOOD UREA NITROGEN 74 mg/dL 7-21 (BEAKER) (test fhrs=926) CREATININE (BEAKER) (test 4.28 mg/dL 0.57-1.25 rcjh=456) GLUCOSE RANDOM (BEAKER) 145 mg/dL 70-105 (test ugbu=575) CALCIUM (BEAKER) (test 8.9 mg/dL 8.4-10.2 kaez=390) EGFR (BEAKER) (test 14 mL/min/1.73 sq m ESTIMATED GFR IS NOT rqpb=7029) ACCURATE CREATININE CLEARANCE IN PREDICTING GLOMERULAR FILTRATION RATE. ESTIMATED GFR IS NOT APPLICABLE FOR DIALYSIS PATIENTS. [id number] 05:56:00 Test Item Value Reference Range Comments PHOSPHORUS (BEAKER) (test bfrd=931) 5.2 mg/dL 2.3-4.7 [id number] 05:56:00 Test Item Value Reference Range Comments MAGNESIUM (BEAKER) (test qyfk=435) 2.4 mg/dL 1.6-2.6 CBC W/PLT COUNT & AUTO [id number] 05:26:00 Test Item Value Reference Range Comments WHITE BLOOD CELL COUNT (BEAKER) (test thbs=603) 9.3 K/ L 3.5-10.5 RED BLOOD CELL COUNT (BEAKER) (test okje=896) 3.27 M/ L 4.63-6.08 HEMOGLOBIN (BEAKER) (test sjtu=784) 10.2 GM/DL 13.7-17.5 HEMATOCRIT (BEAKER) (test ofsz=990) 32.0 % 40.1-51.0 MEAN CORPUSCULAR VOLUME (BEAKER) (test ydjn=580) 97.9 fL 79.0-92.2 MEAN CORPUSCULAR HEMOGLOBIN (BEAKER) (test 31.2 pg 25.7-32.2 tkad=204) MEAN CORPUSCULAR HEMOGLOBIN CONC (BEAKER) (test 31.9 GM/DL 32.3-36.5 aucf=016) RED CELL DISTRIBUTION WIDTH (BEAKER) (test 16.1 % 11.6-14.4 bawa=205) PLATELET COUNT (BEAKER) (test ziyz=674) 194 K/CU MM 150-450 MEAN PLATELET VOLUME (BEAKER) (test foil=259) 11.2 fL 9.4-12.4 NUCLEATED RED BLOOD CELLS (BEAKER) (test 0 /100 WBC 0-0 iowy=750) NEUTROPHILS RELATIVE PERCENT (BEAKER) (test 77 % klro=543) LYMPHOCYTES RELATIVE PERCENT (BEAKER) (test 11 % ewfh=118) MONOCYTES RELATIVE PERCENT (BEAKER) (test 7 % hqst=765) EOSINOPHILS RELATIVE PERCENT (BEAKER) (test 5 % xrla=465) BASOPHILS RELATIVE PERCENT (BEAKER) (test 0 % cjrr=099) NEUTROPHILS ABSOLUTE COUNT (BEAKER) (test 7.09 K/ L 1.78-5.38 afjn=501) LYMPHOCYTES ABSOLUTE COUNT (BEAKER) (test 1.02 K/ L 1.32-3.57 hyht=479) MONOCYTES ABSOLUTE COUNT (BEAKER) (test 0.62 K/ L 0.30-0.82 gclv=758) EOSINOPHILS ABSOLUTE COUNT (BEAKER) (test 0.44 K/ L 0.04-0.54 nukp=806) BASOPHILS ABSOLUTE COUNT (BEAKER) (test 0.04 K/ L 0.01-0.08 helw=169) IMMATURE GRANULOCYTES-RELATIVE PERCENT (BEAKER) 1 % 0-1 (test gavs=0342) POCT-GLUCOSE [id number] 23:35:00 Test Item Value Reference Range Comments POC-GLUCOSE METER (BEAKER) 174 mg/dL 70-110 TESTED AT [address] (test jvcj=7579) [facility] [address] ANG, INSERTION G TUBE, W/ [id number] 20:36:00FINAL REPORT Fluoroscopic guided gastrostomy tube placement, 04/07/2019. Clinical History: Sedation. Modality: Fluoroscopy. Merchandise Supervisor: Edgar Chandler MD. Tub Rider: MD Leann. Conscious sedation: 1.0 mg Versed, [...] After the tract was dilated, a 14 Salvadorean catheter was placed into the stomach. The [...] Chandlerort Verified Date/Time: 04/07/2019 20:36:16 Reading Location: [address] Body Reading Room POCT-GLUCOSE [id number] 18:46: 00 Test Item Value Reference Range Comments POC-GLUCOSE METER (BEAKER) 201 mg/dL 70-110 TESTED AT [address] (test hkzb=8594) [facility] [address] POCT-GLUCOSE [id number] 12:31:00 Test Item Value Reference Range Comments POC-GLUCOSE METER (BEAKER) 212 mg/dL 70-110 TESTED AT [place] [id number] [facility] (test jrfz=3809) [facility] [address] BLOOD [id number] 08:01:00 Test Item Value Reference Range Comments CULTURE (BEAKER) (test dqil=1756) No growth in 5 days BASIC METABOLIC [id number] 07:18:00 Test Item Value Reference Range Comments SODIUM (BEAKER) (test 137 meq/L 136-145 udcg=513) POTASSIUM (BEAKER) (test 4.0 meq/L 3.5-5.1 njrq=884) CHLORIDE (BEAKER) (test 99 meq/L 98-107 jtly=767) CO2 (BEAKER) (test 27 meq/L 22-29 xjcy=194) BLOOD UREA NITROGEN 63 mg/dL 7-21 (BEAKER) (test bvyy=595) CREATININE (BEAKER) (test 3.47 mg/dL 0.57-1.25 jmfm=287) GLUCOSE RANDOM (BEAKER) 208 mg/dL 70-105 (test ckwo=949) CALCIUM (BEAKER) (test 9.0 mg/dL 8.4-10.2 yxcq=796) EGFR (BEAKER) (test 17 mL/min/1.73 sq m ESTIMATED GFR IS NOT tpnk=3682) ACCURATE CREATININE CLEARANCE IN PREDICTING GLOMERULAR FILTRATION RATE. ESTIMATED GFR IS NOT APPLICABLE FOR DIALYSIS PATIENTS. PROTHROMBIN [id number] 06:34:00 Test Item Value Reference Range Comments PROTIME (BEAKER) (test ajfw=731) 16.1 seconds 11.9-14.2 INR (BEAKER) (test cubv=770) 1.4 <=5.9 Effective 02/05/2019: PT Reference Range ChangeNew: 11.9-14.2 Previous: 11.7- 14.7RECOMMENDED COUMADIN/WARFARIN INR THERAPY RANGESSTANDARD DOSE: 2.0-3.0 Includes: PROPHYLAXIS for venous thrombosis, systemic embolization; TREATMENT for venous thrombosis and/or pulmonary embolus.HIGH RISK: Target INR is2.5-3.5 for patients wiht mechanical heart valves.POCT-GLUCOSE [id number] 06:01:00 Test Item Value Reference Range Comments POC-GLUCOSE METER (BEAKER) 268 mg/dL 70-110 TESTED AT [facility] [address] (test znwu=9549) [facility] [address] POCT-GLUCOSE [id number] 17:57:00 Test Item Value Reference Range Comments POC-GLUCOSE METER (BEAKER) 316 mg/dL 70-110 Notified RN MD/TESTED AT [facility] (test hdxc=4721) [address] [place] [address] POCT-GLUCOSE [id number] 12:35:00 Test Item Value Reference Range Comments POC-GLUCOSE METER (BEAKER) 194 mg/dL 70-110 TESTED AT [address] (test oumn=5616) [place] [address] BASIC METABOLIC [id number] 07:55:00 Test Item Value Reference Range Comments SODIUM (BEAKER) (test 136 meq/L 136-145 wdbm=108) POTASSIUM (BEAKER) (test 4.0 meq/L 3.5-5.1 Specimen slightly gqlw=369) hemolyzed CHLORIDE (BEAKER) (test 101 meq/L 98-107 bzts=603) CO2 (BEAKER) (test 25 meq/L 22-29 gkrz=519) BLOOD UREA NITROGEN 34 mg/dL 7-21 (BEAKER) (test wmkp=944) CREATININE (BEAKER) (test 2.36 mg/dL 0.57-1.25 Specimen slightly wjgq=705) hemolyzed GLUCOSE RANDOM (BEAKER) 132 mg/dL 70-105 (test lfia=677) CALCIUM (BEAKER) (test 8.8 mg/dL 8.4-10.2 khof=475) EGFR (BEAKER) (test 27 mL/min/1.73 sq m ESTIMATED GFR IS NOT ahgn=9041) ACCURATE CREATININE CLEARANCE IN PREDICTING GLOMERULAR FILTRATION RATE. ESTIMATED GFR IS NOT APPLICABLE FOR DIALYSIS PATIENTS. POCT-GLUCOSE [id number] 05:42:00 Test Item Value Reference Range Comments POC-GLUCOSE METER (BEAKER) 159 mg/dL 70-110 TESTED AT [address] (test kkrj=6373) [place] [address] CBC W/PLT COUNT & AUTO [id number] 05:13:00 Test Item Value Reference Range Comments WHITE BLOOD CELL COUNT (BEAKER) (test fmsf=146) 10.2 K/ L 3.5-10.5 RED BLOOD CELL COUNT (BEAKER) (test kvst=340) 3.36 M/ L 4.63-6.08 HEMOGLOBIN (BEAKER) (test vezn=276) 10.4 GM/DL 13.7-17.5 HEMATOCRIT (BEAKER) (test okkq=548) 32.6 % 40.1-51.0 MEAN CORPUSCULAR VOLUME (BEAKER) (test vvut=675) 97.0 fL 79.0-92.2 MEAN CORPUSCULAR HEMOGLOBIN (BEAKER) (test 31.0 pg 25.7-32.2 zqfa=860) MEAN CORPUSCULAR HEMOGLOBIN CONC (BEAKER) (test 31.9 GM/DL 32.3-36.5 twak=513) RED CELL DISTRIBUTION WIDTH (BEAKER) (test 16.2 % 11.6-14.4 mued=116) PLATELET COUNT (BEAKER) (test sgjp=931) 166 K/CU MM 150-450 MEAN PLATELET VOLUME (BEAKER) (test nymu=737) 11.3 fL 9.4-12.4 NUCLEATED RED BLOOD CELLS (BEAKER) (test 0 /100 WBC 0-0 iwgh=006) NEUTROPHILS RELATIVE PERCENT (BEAKER) (test 72 % swbc=846) LYMPHOCYTES RELATIVE PERCENT (BEAKER) (test 13 % sxnr=133) MONOCYTES RELATIVE PERCENT (BEAKER) (test 8 % zadh=036) EOSINOPHILS RELATIVE PERCENT (BEAKER) (test 5 % qnpy=743) BASOPHILS RELATIVE PERCENT (BEAKER) (test 0 % dtsc=691) NEUTROPHILS ABSOLUTE COUNT (BEAKER) (test 7.34 K/ L 1.78-5.38 njfu=546) LYMPHOCYTES ABSOLUTE COUNT (BEAKER) (test 1.35 K/ L 1.32-3.57 csee=831) MONOCYTES ABSOLUTE COUNT (BEAKER) (test 0.79 K/ L 0.30-0.82 wbhk=864) EOSINOPHILS ABSOLUTE COUNT (BEAKER) (test 0.55 K/ L 0.04-0.54 nkyy=155) BASOPHILS ABSOLUTE COUNT (BEAKER) (test 0.04 K/ L 0.01-0.08 kgro=693) IMMATURE GRANULOCYTES-RELATIVE PERCENT (BEAKER) 1 % 0-1 (test bmdp=9914) POCT-GLUCOSE [id number] 23:31:00 Test Item Value Reference Range Comments POC-GLUCOSE METER (BEAKER) 209 mg/dL 70-110 TESTED AT [facility] [address] (test zfsm=6863) [facility] [address] POCT-GLUCOSE [id number] 17:46:00 Test Item Value Reference Range Comments POC-GLUCOSE METER (BEAKER) 276 mg/dL 70-110 TESTED AT [facility] [address] [facility] (test xmbl=6998) [facility] [address] POCT-GLUCOSE [id number] 13:32:00 Test Item Value Reference Range Comments POC-GLUCOSE METER (BEAKER) 159 mg/dL 70-110 TESTED AT [facility] [address] [facility] (test sxxi=5875) [facility] [address] BASIC METABOLIC [id number] 12:37:00 Test Item Value Reference Range Comments SODIUM (BEAKER) (test 138 meq/L 136-145 qbko=985) POTASSIUM (BEAKER) (test 3.7 meq/L 3.5-5.1 imkp=398) CHLORIDE (BEAKER) (test 105 meq/L 98-107 totl=930) CO2 (BEAKER) (test 22 meq/L 22-29 atpg=487) BLOOD UREA NITROGEN 62 mg/dL 7-21 (BEAKER) (test mczc=057) CREATININE (BEAKER) (test 3.45 mg/dL 0.57-1.25 aqrn=022) GLUCOSE RANDOM (BEAKER) 226 mg/dL 70-105 (test cres=729) CALCIUM (BEAKER) (test 7.3 mg/dL 8.4-10.2 uoaf=302) EGFR (BEAKER) (test 17 mL/min/1.73 sq m ESTIMATED GFR IS NOT clkg=3667) ACCURATE CREATININE CLEARANCE IN PREDICTING GLOMERULAR FILTRATION RATE. ESTIMATED GFR IS NOT APPLICABLE FOR DIALYSIS PATIENTS. [id number] 12:31:00 Test Item Value Reference Range Comments PHOSPHORUS (BEAKER) (test zjws=824) 4.2 mg/dL 2.3-4.7 [id number] 12:31:00 Test Item Value Reference Range Comments MAGNESIUM (BEAKER) (test qchp=354) 2.4 mg/dL 1.6-2.6 CBC W/PLT COUNT & AUTO [id number] 12:15:00 Test Item Value Reference Range Comments WHITE BLOOD CELL COUNT (BEAKER) (test yykv=888) 10.4 K/ L 3.5-10.5 RED BLOOD CELL COUNT (BEAKER) (test rvgg=889) 2.94 M/ L 4.63-6.08 HEMOGLOBIN (BEAKER) (test peen=956) 9.2 GM/DL 13.7-17.5 HEMATOCRIT (BEAKER) (test azto=907) 28.7 % 40.1-51.0 MEAN CORPUSCULAR VOLUME (BEAKER) (test lxby=826) 97.6 fL 79.0-92.2 MEAN CORPUSCULAR HEMOGLOBIN (BEAKER) (test 31.3 pg 25.7-32.2 dyfz=310) MEAN CORPUSCULAR HEMOGLOBIN CONC (BEAKER) (test 32.1 GM/DL 32.3-36.5 fftw=347) RED CELL DISTRIBUTION WIDTH (BEAKER) (test 16.2 % 11.6-14.4 xkcs=118) PLATELET COUNT (BEAKER) (test fktn=664) 187 K/CU MM 150-450 MEAN PLATELET VOLUME (BEAKER) (test rbrk=894) 11.7 fL 9.4-12.4 NUCLEATED RED BLOOD CELLS (BEAKER) (test 0 /100 WBC 0-0 hdzb=203) NEUTROPHILS RELATIVE PERCENT (BEAKER) (test 75 % zhaw=729) LYMPHOCYTES RELATIVE PERCENT (BEAKER) (test 9 % oszu=398) MONOCYTES RELATIVE PERCENT (BEAKER) (test 6 % uian=481) EOSINOPHILS RELATIVE PERCENT (BEAKER) (test 9 % xvst=598) BASOPHILS RELATIVE PERCENT (BEAKER) (test 0 % cihp=257) NEUTROPHILS ABSOLUTE COUNT (BEAKER) (test 7.84 K/ L 1.78-5.38 zklp=807) LYMPHOCYTES ABSOLUTE COUNT (BEAKER) (test 0.94 K/ L 1.32-3.57 yzdw=674) MONOCYTES ABSOLUTE COUNT (BEAKER) (test 0.63 K/ L 0.30-0.82 ovjj=698) EOSINOPHILS ABSOLUTE COUNT (BEAKER) (test 0.88 K/ L 0.04-0.54 tpjz=045) BASOPHILS ABSOLUTE COUNT (BEAKER) (test 0.02 K/ L 0.01-0.08 mqcp=401) IMMATURE GRANULOCYTES-RELATIVE PERCENT (BEAKER) 1 % 0-1 (test vsyb=3074) POCT-GLUCOSE [id number] 05:46:00 Test Item Value Reference Range Comments POC-GLUCOSE METER (BEAKER) 254 mg/dL 70-110 TESTED AT [facility] [address] [facility] (test fdil=8140) [facility] [address] POCT-GLUCOSE [id number] 23:26:00 Test Item Value Reference Range Comments POC-GLUCOSE METER (BEAKER) 209 mg/dL 70-110 TESTED AT [address] (test vtgs=6781) [place] [address] POCT-GLUCOSE [id number] 17:36:00 Test Item Value Reference Range Comments POC-GLUCOSE METER (BEAKER) 185 mg/dL 70-110 TESTED AT [address] (test rifs=3537) [place] [address] POCT-GLUCOSE [id number] 15:51:00 Test Item Value Reference Range Comments POC-GLUCOSE METER (BEAKER) 203 mg/dL 70-110 TESTED AT [address] (test juhm=4184) [place] [address] POCT-GLUCOSE [id number] 12:58:00 Test Item Value Reference Range Comments POC-GLUCOSE METER (BEAKER) 225 mg/dL 70-110 TESTED AT [address] (test gtag=9188) [place] [address] BASIC METABOLIC [id number] 08:57:00 Test Item Value Reference Range Comments SODIUM (BEAKER) (test 137 meq/L 136-145 fluf=508) POTASSIUM (BEAKER) (test 3.9 meq/L 3.5-5.1 axwa=376) CHLORIDE (BEAKER) (test 100 meq/L 98-107 tuxu=159) CO2 (BEAKER) (test 28 meq/L 22-29 ltws=638) BLOOD UREA NITROGEN 46 mg/dL 7-21 (BEAKER) (test erkc=947) CREATININE (BEAKER) (test 2.92 mg/dL 0.57-1.25 pbzo=062) GLUCOSE RANDOM (BEAKER) 245 mg/dL 70-105 (test arbw=303) CALCIUM (BEAKER) (test 8.6 mg/dL 8.4-10.2 oldb=476) EGFR (BEAKER) (test 21 mL/min/1.73 sq m ESTIMATED GFR IS NOT dxoo=2744) ACCURATE CREATININE CLEARANCE IN PREDICTING GLOMERULAR FILTRATION RATE. ESTIMATED GFR IS NOT APPLICABLE FOR DIALYSIS PATIENTS. POCT-GLUCOSE [id number] 07:47:00 Test Item Value Reference Range Comments POC-GLUCOSE METER (BEAKER) 278 mg/dL 70-110 TESTED AT [address] (test pwmh=3534) [facility] [address] BASIC METABOLIC [id number] 07:35:00 Test Item Value Reference Range Comments SODIUM (BEAKER) (test 123 meq/L 136-145 xbtc=798) POTASSIUM (BEAKER) (test 3.2 meq/L 3.5-5.1 pxpt=290) CHLORIDE (BEAKER) (test 90 meq/L 98-107 teim=274) CO2 (BEAKER) (test 23 meq/L 22-29 dofa=466) BLOOD UREA NITROGEN 35 mg/dL 7-21 (BEAKER) (test qxbp=469) CREATININE (BEAKER) (test 2.46 mg/dL 0.57-1.25 cgft=821) GLUCOSE RANDOM (BEAKER) 735 mg/dL 70-105 (test ghjq=707) CALCIUM (BEAKER) (test 6.9 mg/dL 8.4-10.2 ezxy=119) EGFR (BEAKER) (test 26 mL/min/1.73 sq m ESTIMATED GFR IS NOT hktw=5780) ACCURATE CREATININE CLEARANCE IN PREDICTING GLOMERULAR FILTRATION RATE. ESTIMATED GFR IS NOT APPLICABLE FOR DIALYSIS PATIENTS. [id number] 07:00:00 Test Item Value Reference Range Comments PHOSPHORUS (BEAKER) (test vyzd=292) 2.0 mg/dL 2.3-4.7 [id number] 07:00:00 Test Item Value Reference Range Comments MAGNESIUM (BEAKER) (test ggpr=244) 1.6 mg/dL 1.6-2.6 POCT-GLUCOSE [id number] 06:57:00 Test Item Value Reference Range Comments POC-GLUCOSE METER (BEAKER) 278 mg/dL 70-110 TESTED AT [facility] [address] (test cyef=1371) [facility] [address] CBC W/PLT COUNT & AUTO [id number] 06:09:00 Test Item Value Reference Range Comments WHITE BLOOD CELL COUNT 9.8 K/ L 3.5-10.5 (BEAKER) (test jcum=124) RED BLOOD CELL COUNT (BEAKER) 2.68 M/ L 4.63-6.08 (test fhee=086) HEMOGLOBIN (BEAKER) (test 8.3 GM/DL 13.7-17.5 dxdu=727) HEMATOCRIT (BEAKER) (test 27.0 % 40.1-51.0 rump=923) MEAN CORPUSCULAR VOLUME 100.7 fL 79.0-92.2 Discordant with previous (BEAKER) (test nmwf=550) result MEAN CORPUSCULAR HEMOGLOBIN 31.0 pg 25.7-32.2 (BEAKER) (test pjlt=828) MEAN CORPUSCULAR HEMOGLOBIN 30.7 GM/DL 32.3-36.5 CONC (BEAKER) (test tjxa=997) RED CELL DISTRIBUTION WIDTH 17.2 % 11.6-14.4 (BEAKER) (test jtgn=013) PLATELET COUNT (BEAKER) (test 133 K/CU MM 150-450 wegy=923) MEAN PLATELET VOLUME (BEAKER) 11.9 fL 9.4-12.4 (test grsz=687) NUCLEATED RED BLOOD CELLS 0 /100 WBC 0-0 (BEAKER) (test uvby=417) NEUTROPHILS RELATIVE PERCENT 71 % (BEAKER) (test usup=252) LYMPHOCYTES RELATIVE PERCENT 12 % (BEAKER) (test ywba=074) MONOCYTES RELATIVE PERCENT 8 % (BEAKER) (test ianp=979) EOSINOPHILS RELATIVE PERCENT 7 % (BEAKER) (test xjda=771) BASOPHILS RELATIVE PERCENT 0 % (BEAKER) (test vcqd=186) NEUTROPHILS ABSOLUTE COUNT 6.98 K/ L 1.78-5.38 (BEAKER) (test zqcs=850) LYMPHOCYTES ABSOLUTE COUNT 1.20 K/ L 1.32-3.57 (BEAKER) (test bpkx=531) MONOCYTES ABSOLUTE COUNT 0.76 K/ L 0.30-0.82 (BEAKER) (test lgio=168) EOSINOPHILS ABSOLUTE COUNT 0.72 K/ L 0.04-0.54 (BEAKER) (test ajls=379) BASOPHILS ABSOLUTE COUNT 0.02 K/ L 0.01-0.08 (BEAKER) (test gvuw=768) IMMATURE GRANULOCYTES-RELATIVE 1 % 0-1 PERCENT (BEAKER) (test mijv=9754) POCT-GLUCOSE [id number] 00:24:00 Test Item Value Reference Range Comments POC-GLUCOSE METER (BEAKER) 372 mg/dL 70-110 Notified TAMERA CISNEROS/TESTED AT [facility] (test gouh=2503) [address] [facility] [place] [address] POCT-GLUCOSE [id number] 17:40:00 Test Item Value Reference Range Comments POC-GLUCOSE METER (BEAKER) 331 mg/dL 70-110 Notified TAMERA CISNEROS/TESTED AT [facility] (test jjko=8572) [address] [id number] POCT-GLUCOSE [id number] 12:46:00 Test Item Value Reference Range Comments POC-GLUCOSE METER (BEAKER) 198 mg/dL 70-110 TESTED AT [address] (test xzim=1386) [facility] [address] POCT-GLUCOSE [id number] 11:32:00 Test Item Value Reference Range Comments POC-GLUCOSE METER (BEAKER) 166 mg/dL 70-110 TESTED AT [address] (test prjv=0605) [facility] [address] POCT-GLUCOSE [id number] 09:00:00 Test Item Value Reference Range Comments POC-GLUCOSE METER (BEAKER) 164 mg/dL 70-110 TESTED AT [address] (test rcat=2923) [facility] [address] CBC W/PLT COUNT & AUTO [id number] 08:33:00 Test Item Value Reference Range Comments WHITE BLOOD CELL COUNT (BEAKER) (test kndp=410) 11.1 K/ L 3.5-10.5 RED BLOOD CELL COUNT (BEAKER) (test itqr=395) 2.94 M/ L 4.63-6.08 HEMOGLOBIN (BEAKER) (test qgnm=817) 9.3 GM/DL 13.7-17.5 HEMATOCRIT (BEAKER) (test edvv=591) 28.4 % 40.1-51.0 MEAN CORPUSCULAR VOLUME (BEAKER) (test yopp=583) 96.6 fL 79.0-92.2 MEAN CORPUSCULAR HEMOGLOBIN (BEAKER) (test 31.6 pg 25.7-32.2 zule=454) MEAN CORPUSCULAR HEMOGLOBIN CONC (BEAKER) (test 32.7 GM/DL 32.3-36.5 jmhd=180) RED CELL DISTRIBUTION WIDTH (BEAKER) (test 16.9 % 11.6-14.4 uniq=605) PLATELET COUNT (BEAKER) (test nonm=301) 161 K/CU MM 150-450 MEAN PLATELET VOLUME (BEAKER) (test oprq=565) 11.3 fL 9.4-12.4 NUCLEATED RED BLOOD CELLS (BEAKER) (test 0 /100 WBC 0-0 xwmp=811) NEUTROPHILS RELATIVE PERCENT (BEAKER) (test 76 % cxvt=176) LYMPHOCYTES RELATIVE PERCENT (BEAKER) (test 9 % uexc=385) MONOCYTES RELATIVE PERCENT (BEAKER) (test 7 % ebet=566) EOSINOPHILS RELATIVE PERCENT (BEAKER) (test 6 % octd=169) BASOPHILS RELATIVE PERCENT (BEAKER) (test 0 % ghyw=656) NEUTROPHILS ABSOLUTE COUNT (BEAKER) (test 8.47 K/ L 1.78-5.38 lcuw=526) LYMPHOCYTES ABSOLUTE COUNT (BEAKER) (test 1.01 K/ L 1.32-3.57 flex=989) MONOCYTES ABSOLUTE COUNT (BEAKER) (test 0.82 K/ L 0.30-0.82 odgi=751) EOSINOPHILS ABSOLUTE COUNT (BEAKER) (test 0.66 K/ L 0.04-0.54 wnhc=353) BASOPHILS ABSOLUTE COUNT (BEAKER) (test 0.03 K/ L 0.01-0.08 mvab=061) IMMATURE GRANULOCYTES-RELATIVE PERCENT (BEAKER) 1 % 0-1 (test fsen=6849) B-TYPE NATRIURETIC FACTOR (BNP)2019-04-03 08:31:00 Test Item Value Reference Range Comments B-TYPE NATRIURETIC PEPTIDE (BEAKER) (test 1522 pg/mL 0-100 bcxo=390) COMPREHENSIVE METABOLIC [id number] 08:27:00 Test Item Value Reference Range Comments TOTAL PROTEIN (BEAKER) 6.6 gm/dL 6.0-8.3 (test xcvf=586) ALBUMIN (BEAKER) (test 2.2 g/dL 3.5-5.0 aypz=8297) ALKALINE PHOSPHATASE 141 U/L 40-150 (BEAKER) (test umvh=913) BILIRUBIN TOTAL (BEAKER) 0.4 mg/dL 0.2-1.2 (test adkx=310) SODIUM (BEAKER) (test 138 meq/L 136-145 qfpj=698) POTASSIUM (BEAKER) (test 4.1 meq/L 3.5-5.1 dzba=680) CHLORIDE (BEAKER) (test 100 meq/L 98-107 ziph=494) CO2 (BEAKER) (test 27 meq/L 22-29 pdwf=963) BLOOD UREA NITROGEN 71 mg/dL 7-21 (BEAKER) (test hnuy=369) CREATININE (BEAKER) (test 4.01 mg/dL 0.57-1.25 ovgi=598) GLUCOSE RANDOM (BEAKER) 210 mg/dL 70-105 (test esko=718) CALCIUM (BEAKER) (test 8.7 mg/dL 8.4-10.2 Discordant CALCIUM lmdz=600) result Compared to previous result, Clinical correlation required. AST (SGOT) (BEAKER) (test 26 U/L 5-34 ydml=456) ALT (SGPT) (BEAKER) (test 6 U/L 6-55 ivwk=850) EGFR (BEAKER) (test 15 mL/min/1.73 sq m ESTIMATED GFR IS NOT xhri=0031) ACCURATE CREATININE CLEARANCE IN PREDICTING GLOMERULAR FILTRATION RATE. ESTIMATED GFR IS NOT APPLICABLE FOR DIALYSIS PATIENTS. [id number] 08:24:00 Test Item Value Reference Range Comments PHOSPHORUS (BEAKER) (test shvr=114) 3.0 mg/dL 2.3-4.7 [id number] 08:24:00 Test Item Value Reference Range Comments MAGNESIUM (BEAKER) (test qiuf=423) 2.2 mg/dL 1.6-2.6 CALCIUM, [id number] 08:08:00 Test Item Value Reference Range Comments CALCIUM IONIZED (BEAKER) (test sedv=126) 1.11 mmol/L 1.12-1.27 PH, BLOOD (BEAKER) (test dgva=4590) 7.41 POCT-GLUCOSE [id number] 05:59:00 Test Item Value Reference Range Comments POC-GLUCOSE METER (BEAKER) 259 mg/dL 70-110 TESTED AT [place] [address] TONY (test uspn=3557) [facility] [address] POCT-GLUCOSE [id number] 00:25:00 Test Item Value Reference Range Comments POC-GLUCOSE METER (BEAKER) 382 mg/dL 70-110 Notified TAMERA CISNEROS/TESTED AT [facility] (test akcm=6787) [facility] TONY [facility] [address] BLOOD [id number] 20:01:00 Test Item Value Reference Range Comments CULTURE (BEAKER) (test ywcg=5276) No growth in 5 days POCT-GLUCOSE [id number] 18:00:00 Test Item Value Reference Range Comments POC-GLUCOSE METER (BEAKER) 292 mg/dL 70-110 TESTED AT [address] (test pxlx=2260) [place] [address] RAD, CHEST, 1 VIEW, NON [id number] 14:55:00Reason for exam:-> dypsneaShould this be performed [...] Verified Date/Time: 04/02/2019 14:55:08 Reading Location : [address] Neuro Reading Room POCT-GLUCOSE [id number] 12:42:00 Test Item Value Reference Range Comments POC-GLUCOSE METER (BEAKER) 298 mg/dL 70-110 TESTED AT [address] (test znyw=2079) [place] [id number] POCT-GLUCOSE [id number] 06:16:00 Test Item Value Reference Range Comments POC-GLUCOSE METER (BEAKER) 418 mg/dL 70-110 Notified TAMERA CISNEROS/TESTED AT [facility] (test upyp=1702) [address] [place], [place] [id number] BASIC METABOLIC [id number] 02:18:00 Test Item Value Reference Range Comments SODIUM (BEAKER) (test 144 meq/L 136-145 lctm=847) POTASSIUM (BEAKER) (test 3.8 meq/L 3.5-5.1 Specimen slightly xokw=396) hemolyzed CHLORIDE (BEAKER) (test 108 meq/L 98-107 naxk=628) CO2 (BEAKER) (test 25 meq/L 22-29 dcmu=460) BLOOD UREA NITROGEN 35 mg/dL 7-21 (BEAKER) (test slmq=757) CREATININE (BEAKER) (test 2.36 mg/dL 0.57-1.25 Specimen slightly rdmn=365) hemolyzed GLUCOSE RANDOM (BEAKER) 265 mg/dL 70-105 (test dcir=636) CALCIUM (BEAKER) (test 7.4 mg/dL 8.4-10.2 doqt=436) EGFR (BEAKER) (test 27 mL/min/1.73 sq m ESTIMATED GFR IS NOT bqzo=2990) ACCURATE CREATININE CLEARANCE IN PREDICTING GLOMERULAR FILTRATION RATE. ESTIMATED GFR IS NOT APPLICABLE FOR DIALYSIS PATIENTS. [id number] 02:13:00 Test Item Value Reference Range Comments MAGNESIUM (BEAKER) (test 1.7 mg/dL 1.6-2.6 Specimen slightly hemolyzed rbwx=460) [id number] 02:13:00 Test Item Value Reference Range Comments PHOSPHORUS (BEAKER) (test 2.7 mg/dL 2.3-4.7 Specimen slightly hemolyzed jjea=548) CBC W/PLT COUNT & AUTO [id number] 02:00:00 Test Item Value Reference Range Comments WHITE BLOOD CELL COUNT (BEAKER) (test bdqt=939) 11.4 K/ L 3.5-10.5 RED BLOOD CELL COUNT (BEAKER) (test otnn=739) 2.96 M/ L 4.63-6.08 HEMOGLOBIN (BEAKER) (test hmym=429) 9.3 GM/DL 13.7-17.5 HEMATOCRIT (BEAKER) (test wwyp=246) 28.6 % 40.1-51.0 MEAN CORPUSCULAR VOLUME (BEAKER) (test exxu=122) 96.6 fL 79.0-92.2 MEAN CORPUSCULAR HEMOGLOBIN (BEAKER) (test 31.4 pg 25.7-32.2 xnpn=055) MEAN CORPUSCULAR HEMOGLOBIN CONC (BEAKER) (test 32.5 GM/DL 32.3-36.5 xpyl=173) RED CELL DISTRIBUTION WIDTH (BEAKER) (test 16.7 % 11.6-14.4 asku=580) PLATELET COUNT (BEAKER) (test spjw=312) 138 K/CU MM 150-450 MEAN PLATELET VOLUME (BEAKER) (test jzku=125) 11.4 fL 9.4-12.4 NUCLEATED RED BLOOD CELLS (BEAKER) (test 0 /100 WBC 0-0 xuzg=081) NEUTROPHILS RELATIVE PERCENT (BEAKER) (test 85 % fcib=706) LYMPHOCYTES RELATIVE PERCENT (BEAKER) (test 6 % ejom=996) MONOCYTES RELATIVE PERCENT (BEAKER) (test 7 % spqt=345) EOSINOPHILS RELATIVE PERCENT (BEAKER) (test 1 % rpul=639) BASOPHILS RELATIVE PERCENT (BEAKER) (test 0 % guro=453) NEUTROPHILS ABSOLUTE COUNT (BEAKER) (test 9.65 K/ L 1.78-5.38 tapa=196) LYMPHOCYTES ABSOLUTE COUNT (BEAKER) (test 0.67 K/ L 1.32-3.57 bhyn=749) MONOCYTES ABSOLUTE COUNT (BEAKER) (test 0.80 K/ L 0.30-0.82 xutx=516) EOSINOPHILS ABSOLUTE COUNT (BEAKER) (test 0.12 K/ L 0.04-0.54 emrd=307) BASOPHILS ABSOLUTE COUNT (BEAKER) (test 0.03 K/ L 0.01-0.08 cled=217) IMMATURE GRANULOCYTES-RELATIVE PERCENT (BEAKER) 1 % 0-1 (test lgrg=0216) CALCIUM, [id number] 01:55:00 Test Item Value Reference Range Comments CALCIUM IONIZED (BEAKER) (test oqvd=399) 0.93 mmol/L 1.12-1.27 PH, BLOOD (BEAKER) (test pvqp=8804) 7.44 POCT-GLUCOSE [id number] 23:56:00 Test Item Value Reference Range Comments POC-GLUCOSE METER (BEAKER) 342 mg/dL 70-110 TESTED AT [facility] [address] [facility] (test lefu=3679) [facility] [address] POCT-GLUCOSE [id number] 11:45:00 Test Item Value Reference Range Comments POC-GLUCOSE METER (BEAKER) 270 mg/dL 70-110 TESTED AT [facility] [address] [facility] (test neyj=3474) [facility] [address] RAD, CHEST, 1 VIEW, NON [id number] 11:20:00Reason for exam:->edemaShould this be performed at [...] MDReport Verified Date/Time: 04/01/2019 11:20:07 Reading Location: [facility] Radiology Reading Room MRSA [id number] 10:05:00 Test Item Value Reference Range Comments CULTURE (BEAKER) (test fjmp=4856) No MRSA isolated POCT-GLUCOSE [id number] 06:38:00 Test Item Value Reference Range Comments POC-GLUCOSE METER (BEAKER) 318 mg/dL 70-110 Notified TAMERA CISNEROS/TESTED AT [facility] (test apih=2772) [address] [facility] [address] POCT-GLUCOSE [id number] 06:07:00 Test Item Value Reference Range Comments POC-GLUCOSE METER (BEAKER) 305 mg/dL 70-110 Will Repeat Test/TESTED AT (test rxli=3006) [facility] [address] [facility] [address] COMPREHENSIVE METABOLIC [id number] 06:06:00 Test Item Value Reference Range Comments TOTAL PROTEIN (BEAKER) 6.6 gm/dL 6.0-8.3 (test joxh=506) ALBUMIN (BEAKER) (test 2.3 g/dL 3.5-5.0 pqif=0453) ALKALINE PHOSPHATASE 116 U/L 40-150 (BEAKER) (test tqsh=331) BILIRUBIN TOTAL (BEAKER) 0.4 mg/dL 0.2-1.2 (test puzu=526) SODIUM (BEAKER) (test 141 meq/L 136-145 mgwb=456) POTASSIUM (BEAKER) (test 3.9 meq/L 3.5-5.1 xyci=503) CHLORIDE (BEAKER) (test 101 meq/L 98-107 pcpk=554) CO2 (BEAKER) (test 30 meq/L 22-29 qdec=843) BLOOD UREA NITROGEN 69 mg/dL 7-21 (BEAKER) (test ksvk=753) CREATININE (BEAKER) (test 4.72 mg/dL 0.57-1.25 ihzq=773) GLUCOSE RANDOM (BEAKER) 298 mg/dL 70-105 (test wkyp=188) CALCIUM (BEAKER) (test 8.7 mg/dL 8.4-10.2 yyib=496) AST (SGOT) (BEAKER) (test 19 U/L 5-34 ahkz=170) ALT (SGPT) (BEAKER) (test < U/L 6-55 qwwf=787) EGFR (BEAKER) (test 12 mL/min/1.73 sq m ESTIMATED GFR IS NOT zwgy=2822) ACCURATE CREATININE CLEARANCE IN PREDICTING GLOMERULAR FILTRATION RATE. ESTIMATED GFR IS NOT APPLICABLE FOR DIALYSIS PATIENTS. [id number] 06:03:00 Test Item Value Reference Range Comments PHOSPHORUS (BEAKER) (test nueo=301) 2.0 mg/dL 2.3-4.7 [id number] 06:03:00 Test Item Value Reference Range Comments MAGNESIUM (BEAKER) (test cysa=538) 2.3 mg/dL 1.6-2.6 CBC W/PLT COUNT & AUTO [id number] 05:48:00 Test Item Value Reference Range Comments WHITE BLOOD CELL COUNT (BEAKER) (test lkgp=499) 12.3 K/ L 3.5-10.5 RED BLOOD CELL COUNT (BEAKER) (test zlez=778) 3.09 M/ L 4.63-6.08 HEMOGLOBIN (BEAKER) (test mfym=969) 9.6 GM/DL 13.7-17.5 HEMATOCRIT (BEAKER) (test hyzk=760) 29.6 % 40.1-51.0 MEAN CORPUSCULAR VOLUME (BEAKER) (test keok=813) 95.8 fL 79.0-92.2 MEAN CORPUSCULAR HEMOGLOBIN (BEAKER) (test 31.1 pg 25.7-32.2 zret=502) MEAN CORPUSCULAR HEMOGLOBIN CONC (BEAKER) (test 32.4 GM/DL 32.3-36.5 nxnt=632) RED CELL DISTRIBUTION WIDTH (BEAKER) (test 16.9 % 11.6-14.4 pniw=296) PLATELET COUNT (BEAKER) (test ctty=049) 161 K/CU MM 150-450 MEAN PLATELET VOLUME (BEAKER) (test beyi=456) 11.1 fL 9.4-12.4 NUCLEATED RED BLOOD CELLS (BEAKER) (test 0 /100 WBC 0-0 wfbg=555) NEUTROPHILS RELATIVE PERCENT (BEAKER) (test 83 % vonz=950) LYMPHOCYTES RELATIVE PERCENT (BEAKER) (test 6 % abeb=405) MONOCYTES RELATIVE PERCENT (BEAKER) (test 9 % sefh=126) EOSINOPHILS RELATIVE PERCENT (BEAKER) (test 2 % yaxe=351) BASOPHILS RELATIVE PERCENT (BEAKER) (test 0 % ktuj=429) NEUTROPHILS ABSOLUTE COUNT (BEAKER) (test 10.11 K/ L 1.78-5.38 iexi=904) LYMPHOCYTES ABSOLUTE COUNT (BEAKER) (test 0.76 K/ L 1.32-3.57 bbtf=797) MONOCYTES ABSOLUTE COUNT (BEAKER) (test 1.04 K/ L 0.30-0.82 goka=070) EOSINOPHILS ABSOLUTE COUNT (BEAKER) (test 0.20 K/ L 0.04-0.54 zeok=436) BASOPHILS ABSOLUTE COUNT (BEAKER) (test 0.04 K/ L 0.01-0.08 wsli=594) IMMATURE GRANULOCYTES-RELATIVE PERCENT (BEAKER) 1 % 0-1 (test lkrm=0079) CALCIUM, [id number] 05:34:00 Test Item Value Reference Range Comments CALCIUM IONIZED (BEAKER) (test yyku=918) 1.09 mmol/L 1.12-1.27 PH, BLOOD (BEAKER) (test mcey=1057) 7.40 POCT-GLUCOSE [id number] 01:35:00 Test Item Value Reference Range Comments POC-GLUCOSE METER (BEAKER) 345 mg/dL 70-110 TESTED AT [address] (test wdli=2906) [place] [id number] POCT-GLUCOSE [id number] 18:57:00 Test Item Value Reference Range Comments POC-GLUCOSE METER (BEAKER) 300 mg/dL 70-110 TESTED AT [address] (test gvwf=9907) [place] [address] POCT-GLUCOSE [id number] 12:35:00 Test Item Value Reference Range Comments POC-GLUCOSE METER (BEAKER) 293 mg/dL 70-110 TESTED AT [address] (test osgs=2893) [place] [address] CBC W/PLT COUNT & AUTO [id number] 06:10:00 Test Item Value Reference Range Comments WHITE BLOOD CELL COUNT (BEAKER) (test upjg=816) 10.6 K/ L 3.5-10.5 RED BLOOD CELL COUNT (BEAKER) (test jfvh=955) 3.29 M/ L 4.63-6.08 HEMOGLOBIN (BEAKER) (test rkzq=335) 10.2 GM/DL 13.7-17.5 HEMATOCRIT (BEAKER) (test qrwz=839) 31.7 % 40.1-51.0 MEAN CORPUSCULAR VOLUME (BEAKER) (test hgop=634) 96.4 fL 79.0-92.2 MEAN CORPUSCULAR HEMOGLOBIN (BEAKER) (test 31.0 pg 25.7-32.2 tytj=650) MEAN CORPUSCULAR HEMOGLOBIN CONC (BEAKER) (test 32.2 GM/DL 32.3-36.5 rdwp=600) RED CELL DISTRIBUTION WIDTH (BEAKER) (test 16.7 % 11.6-14.4 qdpo=897) PLATELET COUNT (BEAKER) (test asuq=189) 155 K/CU MM 150-450 MEAN PLATELET VOLUME (BEAKER) (test vpgv=526) 11.2 fL 9.4-12.4 NUCLEATED RED BLOOD CELLS (BEAKER) (test 0 /100 WBC 0-0 xhiw=021) NEUTROPHILS RELATIVE PERCENT (BEAKER) (test 84 % fthr=049) LYMPHOCYTES RELATIVE PERCENT (BEAKER) (test 7 % gnwt=466) MONOCYTES RELATIVE PERCENT (BEAKER) (test 8 % bzmk=760) EOSINOPHILS RELATIVE PERCENT (BEAKER) (test 0 % cnmx=172) BASOPHILS RELATIVE PERCENT (BEAKER) (test 0 % tqrp=409) NEUTROPHILS ABSOLUTE COUNT (BEAKER) (test 8.92 K/ L 1.78-5.38 kxfd=019) LYMPHOCYTES ABSOLUTE COUNT (BEAKER) (test 0.75 K/ L 1.32-3.57 szsn=290) MONOCYTES ABSOLUTE COUNT (BEAKER) (test 0.82 K/ L 0.30-0.82 yjzk=133) EOSINOPHILS ABSOLUTE COUNT (BEAKER) (test 0.02 K/ L 0.04-0.54 axok=172) BASOPHILS ABSOLUTE COUNT (BEAKER) (test 0.04 K/ L 0.01-0.08 ijys=357) IMMATURE GRANULOCYTES-RELATIVE PERCENT (BEAKER) 0 % 0-1 (test rtnv=4987) POCT-GLUCOSE [id number] 05:47:00 Test Item Value Reference Range Comments POC-GLUCOSE METER (BEAKER) 228 mg/dL 70-110 TESTED AT [address] (test yrwo=3099) [place] [address] BASIC METABOLIC [id number] 05:34:00 Test Item Value Reference Range Comments SODIUM (BEAKER) (test 141 meq/L 136-145 dfpo=320) POTASSIUM (BEAKER) (test 3.5 meq/L 3.5-5.1 kkjh=374) CHLORIDE (BEAKER) (test 101 meq/L 98-107 epsf=286) CO2 (BEAKER) (test 29 meq/L 22-29 quip=600) BLOOD UREA NITROGEN 47 mg/dL 7-21 (BEAKER) (test gsvu=242) CREATININE (BEAKER) (test 3.83 mg/dL 0.57-1.25 uigu=767) GLUCOSE RANDOM (BEAKER) 216 mg/dL 70-105 (test oyjd=494) CALCIUM (BEAKER) (test 8.7 mg/dL 8.4-10.2 kxdy=070) EGFR (BEAKER) (test 15 mL/min/1.73 sq m ESTIMATED GFR IS NOT quaw=2779) ACCURATE CREATININE CLEARANCE IN PREDICTING GLOMERULAR FILTRATION RATE. ESTIMATED GFR IS NOT APPLICABLE FOR DIALYSIS PATIENTS. POCT-GLUCOSE [id number] 00:08:00 Test Item Value Reference Range Comments POC-GLUCOSE METER (BEAKER) 232 mg/dL 70-110 TESTED AT [address] (test hjdp=7508) [place] [address] POCT-GLUCOSE [id number] 18:16:00 Test Item Value Reference Range Comments POC-GLUCOSE METER (BEAKER) 200 mg/dL 70-110 TESTED AT [address] (test kfme=3174) [place] [address] RAD, ABDOMEN/KUB, 1 VIEW [id number] 17:43:00Reason for exam:->tube placementFINAL REPORT AP abdomen HISTORY: Tube placement COMPARISON: 03/30/2019 IMPRESSION:Feeding tube present. Tip near gastric antrum, not definitively transpyloric. Bowel gas pattern not well assessed. Signed: Josey Law Verified Date/Time: 03/30/2019 17:43:11 Reading Location: [facility] C013X Ortho Consult Reading Room POCT-GLUCOSE [id number] 12:29:00 Test Item Value Reference Range Comments POC-GLUCOSE METER (BEAKER) 87 mg/dL 70-110 TESTED AT [address] (test fqqx=4318) [facility] [address] RAD, ABDOMEN/KUB, 1 VIEW [id number] 11:08:00Reason for exam:->feed tube placementFINAL REPORT AP abdomen HISTORY: Feeding tube COMPARISON: 03/29/2019 IMPRESSION:Feeding tube looped in stomach. Bowel gas pattern incompletely assessed. Signed: Josey Law Verified Date/ Time: 03/30/2019 11:08:06 Reading Location: [facility] C013X Ortho Consult Reading Room 11: 08 AMCBC W/PLT COUNT & AUTO [id number] 10:15:00 Test Item Value Reference Range Comments WHITE BLOOD CELL COUNT (BEAKER) (test uhxl=493) 15.1 K/ L 3.5-10.5 RED BLOOD CELL COUNT (BEAKER) (test zdxf=846) 3.27 M/ L 4.63-6.08 HEMOGLOBIN (BEAKER) (test apkm=187) 10.2 GM/DL 13.7-17.5 HEMATOCRIT (BEAKER) (test ritw=426) 31.8 % 40.1-51.0 MEAN CORPUSCULAR VOLUME (BEAKER) (test bfri=234) 97.2 fL 79.0-92.2 MEAN CORPUSCULAR HEMOGLOBIN (BEAKER) (test 31.2 pg 25.7-32.2 igmo=616) MEAN CORPUSCULAR HEMOGLOBIN CONC (BEAKER) (test 32.1 GM/DL 32.3-36.5 xbqf=710) RED CELL DISTRIBUTION WIDTH (BEAKER) (test 17.2 % 11.6-14.4 fdxt=773) PLATELET COUNT (BEAKER) (test xngj=008) 164 K/CU MM 150-450 MEAN PLATELET VOLUME (BEAKER) (test dipi=276) 11.3 fL 9.4-12.4 NUCLEATED RED BLOOD CELLS (BEAKER) (test 0 /100 WBC 0-0 hpid=468) (CELLAVISION MANUAL DIFF)2019-03-30 10:15:00 Test Item Value Reference Range Comments NEUTROPHILS - REL (CELLAVISION)(BEAKER) (test 83 % ozae=5058) LYMPHOCYTES - REL (CELLAVISION)(BEAKER) (test 7 % pnhb=6094) MONOCYTES - REL (CELLAVISION)(BEAKER) (test 7 % xlob=1301) BANDS - REL (CELLAVISION)(BEAKER) (test 3 % 0-10 bfnr=3466) NEUTROPHILS - ABS (CELLAVISION)(BEAKER) (test 12.53 K/ul 1.78-5.38 evwe=9881) LYMPHOCYTES - ABS (CELLAVISION)(BEAKER) (test 1.06 K/ul 1.32-3.57 vkka=9859) MONOCYTES - ABS (CELLAVISION)(BEAKER) (test 1.06 K/uL 0.30-0.82 yfnc=0967) BANDS - ABS (CELLAVISION)(BEAKER) (test 0.45 K/uL 0.00-0.80 napu=4675) TOTAL COUNTED (BEAKER) (test ppww=5422) 100 RBC MORPHOLOGY (BEAKER) (test ujcr=456) Normal WBC MORPHOLOGY (BEAKER) (test xmnc=442) Normal PLT MORPHOLOGY (BEAKER) (test lhgo=606) Normal ARTIFACT (CELLAVISION)(BEAKER) (test wywx=8835) Present PLATELET CONCENTRATION (CELLAVISION)(BEAKER) Adequate (test pdxl=5809) Received comment: User comments: Slide comments:VANCOMYCIN LEVEL, [id number] 09:50:00 Test Item Value Reference Range Comments VANCOMYCIN RANDOM (BEAKER) (test zixn=255) 14.1 ug/mL Reference Range: No NormalsBASIC METABOLIC [id number] 08:47:00 Test Item Value Reference Range Comments SODIUM (BEAKER) (test 140 meq/L 136-145 kxym=177) POTASSIUM (BEAKER) (test 3.5 meq/L 3.5-5.1 sovj=612) CHLORIDE (BEAKER) (test 100 meq/L 98-107 ihac=260) CO2 (BEAKER) (test 31 meq/L 22-29 ulxr=061) BLOOD UREA NITROGEN 25 mg/dL 7-21 (BEAKER) (test ageb=408) CREATININE (BEAKER) (test 2.68 mg/dL 0.57-1.25 qnpu=895) GLUCOSE RANDOM (BEAKER) 83 mg/dL 70-105 (test rmew=883) CALCIUM (BEAKER) (test 8.7 mg/dL 8.4-10.2 vlqq=338) EGFR (BEAKER) (test 23 mL/min/1.73 sq m ESTIMATED GFR IS NOT zkvw=5368) ACCURATE CREATININE CLEARANCE IN PREDICTING GLOMERULAR FILTRATION RATE. ESTIMATED GFR IS NOT APPLICABLE FOR DIALYSIS PATIENTS. POCT-GLUCOSE [id number] 08:34:00 Test Item Value Reference Range Comments POC-GLUCOSE METER (BEAKER) 85 mg/dL 70-110 TESTED AT [address] (test cbvj=1545) [place] [address] POCT-GLUCOSE [id number] 05:36:00 Test Item Value Reference Range Comments POC-GLUCOSE METER (BEAKER) 94 mg/dL 70-110 TESTED AT [address] (test rung=1128) [place] [id number] POCT-GLUCOSE [id number] 00:38:00 Test Item Value Reference Range Comments POC-GLUCOSE METER (BEAKER) 111 mg/dL 70-110 TESTED AT [address] (test bbio=1907) [place] [address] RAD, ABDOMEN/KUB, 1 VIEW [id number] 22:56:00Reason for exam:->check corpak placementShould this be [...] [place] Sun Verified Date/Time: 03/29/2019 22:56:02 POCT-GLUCOSE [id number] 22:33:00 Test Item Value Reference Range Comments POC-GLUCOSE METER (BEAKER) 126 mg/dL 70-110 TESTED AT [address] (test zmoe=7118) [facility] [address] POCT-GLUCOSE [id number] 22:02:00 Test Item Value Reference Range Comments POC-GLUCOSE METER (BEAKER) 68 mg/dL 70-110 Notified TAMERA CISNEROS/TESTED AT [facility] (test lhai=6996) [address] [place], [place] [id number] POCT-GLUCOSE [id number] 17:33:00 Test Item Value Reference Range Comments POC-GLUCOSE METER (BEAKER) 121 mg/dL 70-110 TESTED AT [address] (test ntdp=5147) [place] [address] RAD, CHEST, 1 VIEW, NON [id number] 17:16:00Reason for exam:->fever, abnormal breath soundsShould this be performed at the bedside?->YesFINAL REPORT AP chest HISTORY: Fever. COMPARISON: 03/27/2018. IMPRESSION: Stable cardiac silhouette. No pneumothorax. Patchy opacities have developed in both lungs which may reflect atelectasis, asymmetric edema or pneumonia. Signed: Josey Law Verified Date/Time: 03/29/2019 17: 16:50 Reading Location: [address] Ortho Consult Reading Room POCT-GLUCOSE [id number] 15:36:00 Test Item Value Reference Range Comments POC-GLUCOSE METER (BEAKER) 79 mg/dL 70-110 TESTED AT [address] (test cont=9951) [facility] [address] POCT-GLUCOSE [id number] 12:25:00 Test Item Value Reference Range Comments POC-GLUCOSE METER (BEAKER) 92 mg/dL 70-110 TESTED AT [address] (test qetf=4341) [place] [address] BASIC METABOLIC [id number] 12:23:00 Test Item Value Reference Range Comments SODIUM (BEAKER) (test 139 meq/L 136-145 glna=886) POTASSIUM (BEAKER) (test 4.3 meq/L 3.5-5.1 fsga=922) CHLORIDE (BEAKER) (test 103 meq/L 98-107 amyc=452) CO2 (BEAKER) (test 28 meq/L 22-29 qzvz=892) BLOOD UREA NITROGEN 49 mg/dL 7-21 (BEAKER) (test ssxx=114) CREATININE (BEAKER) (test 4.42 mg/dL 0.57-1.25 yzth=948) GLUCOSE RANDOM (BEAKER) 83 mg/dL 70-105 (test wbgj=281) CALCIUM (BEAKER) (test 9.0 mg/dL 8.4-10.2 xcxe=865) EGFR (BEAKER) (test 13 mL/min/1.73 sq m ESTIMATED GFR IS NOT hhjt=4115) ACCURATE CREATININE CLEARANCE IN PREDICTING GLOMERULAR FILTRATION RATE. ESTIMATED GFR IS NOT APPLICABLE FOR DIALYSIS PATIENTS. [id number] 11:53:00 Test Item Value Reference Range Comments POC-GLUCOSE (BEAKER) (test 85 mg/dL 70-110 TESTED AT [address] bxxd=7145) [place] [address] POCT-CALCIUM [id number] 11:53:00 Test Item Value Reference Range Comments POC-CALCIUM IONIZED (BEAKER) 1.22 mmol/L 1.12-1.27 TESTED AT [address] (test qoqr=3195) [place] [address] [id number] 11:53:00 Test Item Value Reference Range Comments POC-HEMATOCRIT (BEAKER) (test 29 % 40-50 TESTED AT [address] bskq=7170) [place] [address] [id number] 11:53:00 Test Item Value Reference Range Comments POC-HEMOGLOBIN (BEAKER) 9.9 g/dL 13.0-16.8 TESTED AT [address] (test erwj=7947) [place] [address]TESTED AT [place] [address] POCT-BLOOD GASES, [id number] 11:52:00 Test Item Value Reference Range Comments TEMP, CELSIUS-POC (BEAKER) 37.0 (test pjlu=6638) FIO2-POC (BEAKER) (test TESTED AT [address] oufz=8011) [place] [address] PH, VENOUS-POC (BEAKER) 7.366 7.320-7.420 (test owzu=8773) PCO2, VENOUS-POC (BEAKER) 45.9 mm Hg 41.0-51.0 (test lehy=0848) PO2, VENOUS-POC (BEAKER) 30.0 mm Hg 25.0-40.0 (test jfej=9983) SO2, VENOUS-POC (BEAKER) 56.0 % 40.0-70.0 (test kzzx=4335) HCO3, VENOUS-POC (BEAKER) 26.3 meq/L 21.0-29.0 (test lrxy=5582) BASE EXCESS, VENOUS-POC 1.0 meq/L -2.0-3.0 (BEAKER) (test nquv=1891) [id number] 11:52:00 Test Item Value Reference Range Comments POC-SODIUM (BEAKER) (test 140 meq/L 135-148 TESTED AT [address] vqdh=7345) [place] [address] [id number] 11:52:00 Test Item Value Reference Range Comments POC-POTASSIUM (BEAKER) (test 4.2 meq/L 3.6-5.5 TESTED AT [address] zbtf=0327) [place] [id number] POCT-LACTIC ACID, [id number] 11:52:00 Test Item Value Reference Range Comments POC-LACTIC ACID, VENOUS 0.9 mmol/L 0.9-1.7 TESTED AT [address] (BEBANNER) (test xsng=5285) [place] [address] POCT-GLUCOSE [id number] 10:25:00 Test Item Value Reference Range Comments POC-GLUCOSE METER (BEAKER) 103 mg/dL 70-110 TESTED AT [address] (test hegi=7560) [place] [address] CBC W/PLT COUNT & AUTO [id number] 08:44:00 Test Item Value Reference Range Comments WHITE BLOOD CELL COUNT (BEAKER) (test mchm=108) 16.7 K/ L 3.5-10.5 RED BLOOD CELL COUNT (BEAKER) (test lsvg=658) 3.17 M/ L 4.63-6.08 HEMOGLOBIN (BEAKER) (test yhzo=919) 10.2 GM/DL 13.7-17.5 HEMATOCRIT (BEAKER) (test zfyq=603) 31.6 % 40.1-51.0 MEAN CORPUSCULAR VOLUME (BEAKER) (test jhdb=626) 99.7 fL 79.0-92.2 MEAN CORPUSCULAR HEMOGLOBIN (BEAKER) (test 32.2 pg 25.7-32.2 kzst=127) MEAN CORPUSCULAR HEMOGLOBIN CONC (BEAKER) (test 32.3 GM/DL 32.3-36.5 rdar=488) RED CELL DISTRIBUTION WIDTH (BEAKER) (test 17.3 % 11.6-14.4 hhvs=573) PLATELET COUNT (BEAKER) (test vita=453) 184 K/CU MM 150-450 MEAN PLATELET VOLUME (BEAKER) (test ztao=504) 10.9 fL 9.4-12.4 NUCLEATED RED BLOOD CELLS (BEAKER) (test 0 /100 WBC 0-0 aaad=404) (CELLAVISION MANUAL DIFF)2019-03-29 08:44:00 Test Item Value Reference Range Comments NEUTROPHILS - REL (CELLAVISION)(BEAKER) (test 89 % nasx=4484) LYMPHOCYTES - REL (CELLAVISION)(BEAKER) (test 5 % ieql=2754) MONOCYTES - REL (CELLAVISION)(BEAKER) (test 2 % gioc=2043) EOSINOPHILS - REL (CELLAVISION)(BEAKER) (test 3 % jybl=9195) BASOPHILS - REL (CELLAVISION)(BEAKER) (test 1 % xpau=4666) NEUTROPHILS - ABS (CELLAVISION)(BEAKER) (test 14.86 K/ul 1.78-5.38 sdzg=4575) LYMPHOCYTES - ABS (CELLAVISION)(BEAKER) (test 0.84 K/ul 1.32-3.57 fklv=5737) MONOCYTES - ABS (CELLAVISION)(BEAKER) (test 0.33 K/uL 0.30-0.82 cwcf=2895) EOSINOPHILS - ABS (CELLAVISION)(BEAKER) (test 0.50 K/uL 0.04-0.54 ewlv=1568) BASOPHILS - ABS (CELLAVISION)(BEAKER) (test 0.17 K/uL 0.01-0.08 dejn=4704) TOTAL COUNTED (BEAKER) (test guwq=0545) 100 SMUDGE CELLS (BEAKER) (test bmfb=0614) Present GIANT PLATELETS (BEAKER) (test hgnm=394) Present ANISOCYTOSIS (BEAKER) (test umtt=209) 1+ few POIKILOCYTES (BEAKER) (test ylvj=633) 2+ moderate CECILIA CELLS (BEAKER) (test mcmd=218) 2+ moderate ARTIFACT (CELLAVISION)(BEAKER) (test ijtg=1613) Present PLATELET CONCENTRATION (CELLAVISION)(BEAKER) Adequate (test fsvc=6721) Received comment: User comments: Slide comments:POCT-GLUCOSE [id number] 08: 29:00 Test Item Value Reference Range Comments POC-GLUCOSE METER (BEAKER) 121 mg/dL 70-110 TESTED AT [address] (test mhxo=4967) [facility] [address] COMPREHENSIVE METABOLIC [id number] 06:34:00 Test Item Value Reference Range Comments TOTAL PROTEIN (BEAKER) 6.9 gm/dL 6.0-8.3 (test lefd=931) ALBUMIN (BEAKER) (test 2.6 g/dL 3.5-5.0 mpvr=3105) ALKALINE PHOSPHATASE 90 U/L 40-150 (BEAKER) (test vdlp=588) BILIRUBIN TOTAL (BEAKER) 0.4 mg/dL 0.2-1.2 (test eblj=397) SODIUM (BEAKER) (test 137 meq/L 136-145 sgxx=446) POTASSIUM (BEAKER) (test 4.3 meq/L 3.5-5.1 wucc=287) CHLORIDE (BEAKER) (test 104 meq/L 98-107 psky=604) CO2 (BEAKER) (test 24 meq/L 22-29 equs=353) BLOOD UREA NITROGEN 45 mg/dL 7-21 (BEAKER) (test mvpw=317) CREATININE (BEAKER) (test 4.11 mg/dL 0.57-1.25 qqaz=645) GLUCOSE RANDOM (BEAKER) 130 mg/dL 70-105 (test ceyn=982) CALCIUM (BEAKER) (test 8.8 mg/dL 8.4-10.2 ikeb=578) AST (SGOT) (BEAKER) (test 24 U/L 5-34 exsc=811) ALT (SGPT) (BEAKER) (test < U/L 6-55 qguq=555) EGFR (BEAKER) (test 14 mL/min/1.73 sq m ESTIMATED GFR IS NOT tycg=4366) ACCURATE CREATININE CLEARANCE IN PREDICTING GLOMERULAR FILTRATION RATE. ESTIMATED GFR IS NOT APPLICABLE FOR DIALYSIS PATIENTS. [id number] 06:32:00 Test Item Value Reference Range Comments PHOSPHORUS (BEAKER) (test vyuf=283) 2.5 mg/dL 2.3-4.7 [id number] 06:32:00 Test Item Value Reference Range Comments MAGNESIUM (BEAKER) (test niod=379) 2.1 mg/dL 1.6-2.6 CALCIUM, [id number] 05:35:00 Test Item Value Reference Range Comments CALCIUM IONIZED (BEAKER) (test ykdt=870) 1.09 mmol/L 1.12-1.27 PH, BLOOD (BEAKER) (test kcgy=1858) 7.42 POCT-GLUCOSE [id number] 21:55:00 Test Item Value Reference Range Comments POC-GLUCOSE METER (BEAKER) 202 mg/dL 70-110 TESTED AT [address] (test homp=5546) [facility] [address] POCT-GLUCOSE [id number] 17:33:00 Test Item Value Reference Range Comments POC-GLUCOSE METER (BEAKER) 141 mg/dL 70-110 TESTED AT [address] (test vxgf=3869) [facility] [address] C-REACTIVE [id number] 16:53:00 Test Item Value Reference Range Comments C-REACTIVE PROTEIN (BEAKER) (test miny=655) 22.40 mg/dL 0.00-0.50 CBC W/PLT COUNT & AUTO [id number] 15:35:00 Test Item Value Reference Range Comments WHITE BLOOD CELL COUNT (BEAKER) (test bnfu=825) 17.3 K/ L 3.5-10.5 RED BLOOD CELL COUNT (BEAKER) (test lznw=797) 3.33 M/ L 4.63-6.08 HEMOGLOBIN (BEAKER) (test rrsx=934) 10.4 GM/DL 13.7-17.5 HEMATOCRIT (BEAKER) (test qjwk=489) 32.9 % 40.1-51.0 MEAN CORPUSCULAR VOLUME (BEAKER) (test jnns=722) 98.8 fL 79.0-92.2 MEAN CORPUSCULAR HEMOGLOBIN (BEAKER) (test 31.2 pg 25.7-32.2 rlyq=695) MEAN CORPUSCULAR HEMOGLOBIN CONC (BEAKER) (test 31.6 GM/DL 32.3-36.5 amcw=196) RED CELL DISTRIBUTION WIDTH (BEAKER) (test 16.5 % 11.6-14.4 byyn=942) PLATELET COUNT (BEAKER) (test iqqn=936) 190 K/CU MM 150-450 MEAN PLATELET VOLUME (BEAKER) (test wqhw=418) 11.1 fL 9.4-12.4 NUCLEATED RED BLOOD CELLS (BEAKER) (test 0 /100 WBC 0-0 ekcs=948) (CELLAVISION MANUAL DIFF)2019-03-28 15:35:00 Test Item Value Reference Range Comments NEUTROPHILS - REL (CELLAVISION)(BEAKER) (test 93 % reox=9765) LYMPHOCYTES - REL (CELLAVISION)(BEAKER) (test 4 % pyzv=9109) BANDS - REL (CELLAVISION)(BEAKER) (test 3 % 0-10 cevp=0452) NEUTROPHILS - ABS (CELLAVISION)(BEAKER) (test 16.09 K/ul 1.78-5.38 lmav=9415) LYMPHOCYTES - ABS (CELLAVISION)(BEAKER) (test 0.69 K/ul 1.32-3.57 uwuq=3088) BANDS - ABS (CELLAVISION)(BEAKER) (test 0.52 K/uL 0.00-0.80 pbyw=9218) TOTAL COUNTED (BEAKER) (test ugpn=8672) 100 WBC MORPHOLOGY (BEAKER) (test ulqb=746) Normal PLT MORPHOLOGY (BEAKER) (test hvlp=604) Normal ANISOCYTOSIS (BEAKER) (test catu=956) 1+ few MACROCYTES (BEAKER) (test fvbc=182) 1+ few POIKILOCYTES (BEAKER) (test ekli=909) 1+ few ELLIPTOCYTES (BEAKER) (test lgkk=872) 1+ few CECILIA CELLS (BEAKER) (test owfh=863) 1+ few ARTIFACT (CELLAVISION)(BEAKER) (test izez=8333) Present PLATELET CONCENTRATION (CELLAVISION)(BEAKER) Adequate (test bxdw=9375) Received comment: User comments: Slide comments:POCT-GLUCOSE [id number] 12: 10:00 Test Item Value Reference Range Comments POC-GLUCOSE METER (BEAKER) 140 mg/dL 70-110 TESTED AT [address] (test ytga=3123) [place] [address] HEMOGLOBIN [id number] 09:31:00 Test Item Value Reference Range Comments HEMOGLOBIN A1C (BEAKER) (test hrig=134) 6.6 % 4.3-6.1 POCT-GLUCOSE [id number] 09:30:00 Test Item Value Reference Range Comments POC-GLUCOSE METER (BEAKER) 79 mg/dL 70-110 TESTED AT [address] (test huya=9317) [place] [id number] BASIC METABOLIC [id number] 08:30:00 Test Item Value Reference Range Comments SODIUM (BEAKER) (test 141 meq/L 136-145 bdnf=558) POTASSIUM (BEAKER) (test 4.3 meq/L 3.5-5.1 Specimen slightly lamc=423) hemolyzed CHLORIDE (BEAKER) (test 106 meq/L 98-107 fxvx=934) CO2 (BEAKER) (test 26 meq/L 22-29 pjww=675) BLOOD UREA NITROGEN 30 mg/dL 7-21 (BEAKER) (test umgu=883) CREATININE (BEAKER) (test 2.98 mg/dL 0.57-1.25 Specimen slightly kihh=259) hemolyzed GLUCOSE RANDOM (BEAKER) 31 mg/dL 70-105 (test yykm=228) CALCIUM (BEAKER) (test 8.9 mg/dL 8.4-10.2 edgo=533) EGFR (BEAKER) (test 21 mL/min/1.73 sq m ESTIMATED GFR IS NOT kbpx=8057) ACCURATE CREATININE CLEARANCE IN PREDICTING GLOMERULAR FILTRATION RATE. ESTIMATED GFR IS NOT APPLICABLE FOR DIALYSIS PATIENTS. [id number] 08:18:00 Test Item Value Reference Range Comments MAGNESIUM (BEAKER) (test 2.0 mg/dL 1.6-2.6 Specimen slightly hemolyzed mpts=423) [id number] 08:18:00 Test Item Value Reference Range Comments PHOSPHORUS (BEAKER) (test 3.2 mg/dL 2.3-4.7 Specimen slightly hemolyzed xsiq=865) POCT-GLUCOSE [id number] 08:16:00 Test Item Value Reference Range Comments POC-GLUCOSE METER (BEAKER) 46 mg/dL 70-110 TESTED AT [facility] [address] [place] [address] (test taaj=0090) [facility] [address] POCT-GLUCOSE [id number] 08:04:00 Test Item Value Reference Range Comments POC-GLUCOSE METER (BEAKER) 35 mg/dL 70-110 Notified TAMERA CISNEROS/TESTED AT [facility] (test eapp=8647) [address] [place] [address] TROPONIN [id number] 07:54:00 Test Item Value Reference Range Comments TROPONIN I (BEAKER) (test kqkd=699) 0.04 ng/mL 0.00-0.03 Troponin I (TnI) levels [...] acidosis, acute neurological disease, and persistent tachyarrhythmia.PTH, [id number] 07:31:00 Test Item Value Reference Range Comments PARATHYROID HORMONE INTACT (BEAKER) (test 6.7 pg/mL 8.5-72.5 vdwn=131) LACTIC ACID, [id number] 07:22:00 Test Item Value Reference Range Comments LACTATE BLOOD VENOUS (2) 0.9 mmol/L 0.5-2.2 Specimen slightly hemolyzed (BEAKER) (test fags=4261) POCT-GLUCOSE [id number] 23:51:00 Test Item Value Reference Range Comments POC-GLUCOSE METER (BEAKER) 97 mg/dL 70-110 TESTED AT [facility] [address] [facility] (test xnde=1942) [facility] [address] MR, BRAIN, WITHOUT [id number] 21:41:00FINAL REPORT MRI Brain without contrast CLINICAL [...] Verified Date/Time: 03/27/2019 21:41:47 EEG AWAKE AND [id number] 20:48:00Reason for exam:->AMSDate(s) of EE03/27 DATE OF REPORT: 03/27/2019 ACC: [id number] EEG Number: [id number] TestLocation: Inpatient Room Start time: 03/27/2019 08:46 Stop time: 03/27/2019 09 :07 ICD-10: R41.82 CPT Code: 90478 HISTORY: 73 y.o. male with Parkinson's dementia, [...] by: WINIFRED MENDES MD on 08:48 PMPOCT-GLUCOSE [id number] 18:10:00 Test Item Value Reference Range Comments POC-GLUCOSE METER ([facility]) 92 mg/dL 70-110 TESTED AT [facility] [address] [facility] (test mlmc=4217) [facility] [address] HEMOGLOBIN [id number] 14:49:00 Test Item Value Reference Range Comments HEMOGLOBIN A1C ([facility]) (test aovh=682) 6.8 % 4.3-6.1 FastingHEPATITIS B SURFACE [id number] 14:32:00 Test Item Value Reference Range Comments HEPATITIS B SURFACE ANTIGEN (2) ([facility]) (test Nonreactive Nonreactive kfcl=3656) TROPONIN [id number] 14:18:00 Test Item Value Reference Range Comments TROPONIN I ([facility]) (test gatw=074) 0.06 ng/mL 0.00-0.03 Troponin I (TnI) levels [...] acidosis, acute neurological disease, and persistent tachyarrhythmia.POCT-GLUCOSE [id number] 13:47:00 Test Item Value Reference Range Comments POC-GLUCOSE METER (BEAKER) 110 mg/dL 70-110 TESTED AT [facility] [address] [facility] (test gcze=6701) [facility] [address] POCT-GLUCOSE [id number] 13:25:00 Test Item Value Reference Range Comments POC-GLUCOSE METER (BEAKER) 50 mg/dL 70-110 TESTED AT [address] (test lnlb=0403) [facility] [address] POCT-GLUCOSE [id number] 12:41:00 Test Item Value Reference Range Comments POC-GLUCOSE METER (BEAKER) 50 mg/dL 70-110 Notified TAMERA CISNEROS/TESTED AT [facility] (test mxmt=2735) [address] [place] [address] RAD, CHEST, 1 VIEW, NON [id number] 09:41:00Reason for exam:->cardiac evalShould this be performed [...] MDReport Verified Date/Time: 2018 09:41:15 Reading Location: [facility] Radiology Reading Room VITAMIN [id number] 06:12:00 Test Item Value Reference Range Comments VITAMIN B12 (BEAKER) (test zqzd=221) 1279 pg/mL 213-816 TSH/FREE T4 IF [id number] 06:12:00 Test Item Value Reference Range Comments THYROID STIMULATING HORMONE (BEAKER) (test 1.60 uIU/mL 0.35-4.94 luoq=968) POCT-GLUCOSE [id number] 05:50:00 Test Item Value Reference Range Comments POC-GLUCOSE METER (BEAKER) 71 mg/dL 70-110 TESTED AT [facility] [address] (test mxdp=8013) [facility] [address] B-TYPE NATRIURETIC FACTOR (BNP)2019-03-27 05:46:00 Test Item Value Reference Range Comments B-TYPE NATRIURETIC PEPTIDE (BEAKER) (test 332 pg/mL 0-100 ckmd=199) BASIC METABOLIC [id number] 03:28:00 Test Item Value Reference Range Comments SODIUM (BEAKER) (test 132 meq/L 136-145 cjeh=342) POTASSIUM (BEAKER) (test 4.0 meq/L 3.5-5.1 suhm=241) CHLORIDE (BEAKER) (test 98 meq/L 98-107 eoca=115) CO2 (BEAKER) (test 25 meq/L 22-29 qeet=970) BLOOD UREA NITROGEN 55 mg/dL 7-21 (BEAKER) (test jefz=668) CREATININE (BEAKER) (test 4.09 mg/dL 0.57-1.25 uvyl=396) GLUCOSE RANDOM (BEAKER) 64 mg/dL 70-105 (test bjgh=940) CALCIUM (BEAKER) (test 8.7 mg/dL 8.4-10.2 jqfx=360) EGFR (BEAKER) (test 14 mL/min/1.73 sq m ESTIMATED GFR IS NOT kklc=4387) ACCURATE CREATININE CLEARANCE IN PREDICTING GLOMERULAR FILTRATION RATE. ESTIMATED GFR IS NOT APPLICABLE FOR DIALYSIS PATIENTS. FastingLIPID [id number] 03:28:00 Test Item Value Reference Range Comments TRIGLYCERIDES (BEAKER) (test frwp=971) 38 mg/dL CHOLESTEROL (BEAKER) (test ewig=011) 54 mg/dL HDL CHOLESTEROL (BEAKER) (test pbcv=333) 27 mg/dL LDL CHOLESTEROL CALCULATED (BEAKER) (test avum=253) 19 mg/dL Triglyceride Reference Range: Low Risk <150 Borderline 150- 199 High Risk 200-499 Very High Risk >=500Cholesterol Reference Range: Low Risk <200 Borderline 200-239 High Risk > 240HDL Cholesterol Reference Range: Low Risk >=60 High Risk <40LDL Cholesterol Reference Range: Optimal <100 Near Optimal 100-129 Borderline 130-159 High 160-189 Very High >=190 FastingHEPATIC FUNCTION [id number] 03:28:00 Test Item Value Reference Range Comments TOTAL PROTEIN (BEAKER) (test elbj=473) 6.2 gm/dL 6.0-8.3 ALBUMIN (BEAKER) (test avkl=7839) 2.4 g/dL 3.5-5.0 BILIRUBIN TOTAL (BEAKER) (test jbzy=333) 0.4 mg/dL 0.2-1.2 BILIRUBIN DIRECT (BEAKER) (test omfp=536) 0.2 mg/dL 0.1-0.5 ALKALINE PHOSPHATASE (BEAKER) (test wfzy=446) 85 U/L 40-150 AST (SGOT) (BEAKER) (test wdzq=731) 25 U/L 5-34 ALT (SGPT) (BEAKER) (test qewg=058) < U/L 6-55 FastingLACTIC ACID, [id number] 03:12:00 Test Item Value Reference Range Comments LACTATE BLOOD VENOUS (2) (BEAKER) (test 0.4 mmol/L 0.5-2.2 phkc=6602) [id number] 02:54:00 Test Item Value Reference Range Comments PARTIAL THROMBOPLASTIN TIME (BEAKER) (test 45.0 seconds 22.5-36.0 febm=177) PROTHROMBIN TIME/[id number] 02:53:00 Test Item Value Reference Range Comments PROTIME (BEAKER) (test hgow=710) 16.1 seconds 11.9-14.2 INR (BEAKER) (test sbji=850) 1.4 <=5.9 Effective 02/05/2019: PT Reference Range ChangeNew: 11.9-14.2 Previous: 11.7- 14.7RECOMMENDED COUMADIN/WARFARIN INR THERAPY RANGESSTANDARD DOSE: 2.0-3.0 Includes: PROPHYLAXIS for venous thrombosis, systemic embolization; TREATMENT for venous thrombosis and/or pulmonary embolus.HIGH RISK: Target INR is2.5-3.5 for patients wiht mechanical heart valves.CBC W/PLT COUNT & AUTO [id number] 02:37:00 Test Item Value Reference Range Comments WHITE BLOOD CELL COUNT (BEAKER) (test baet=108) 8.5 K/ L 3.5-10.5 RED BLOOD CELL COUNT (BEAKER) (test ngfs=236) 3.15 M/ L 4.63-6.08 HEMOGLOBIN (BEAKER) (test yycj=243) 9.8 GM/DL 13.7-17.5 HEMATOCRIT (BEAKER) (test chke=921) 30.2 % 40.1-51.0 MEAN CORPUSCULAR VOLUME (BEAKER) (test lmez=820) 95.9 fL 79.0-92.2 MEAN CORPUSCULAR HEMOGLOBIN (BEAKER) (test 31.1 pg 25.7-32.2 cfhi=710) MEAN CORPUSCULAR HEMOGLOBIN CONC (BEAKER) (test 32.5 GM/DL 32.3-36.5 egoy=422) RED CELL DISTRIBUTION WIDTH (BEAKER) (test 16.2 % 11.6-14.4 tlfc=832) PLATELET COUNT (BEAKER) (test jksx=161) 161 K/CU MM 150-450 MEAN PLATELET VOLUME (BEAKER) (test qobi=565) 10.6 fL 9.4-12.4 NUCLEATED RED BLOOD CELLS (BEAKER) (test 0 /100 WBC 0-0 lboi=437) NEUTROPHILS RELATIVE PERCENT (BEAKER) (test 60 % zyir=046) LYMPHOCYTES RELATIVE PERCENT (BEAKER) (test 16 % obgy=354) MONOCYTES RELATIVE PERCENT (BEAKER) (test 11 % iasp=611) EOSINOPHILS RELATIVE PERCENT (BEAKER) (test 13 % jxrb=255) BASOPHILS RELATIVE PERCENT (BEAKER) (test 1 % btbw=790) NEUTROPHILS ABSOLUTE COUNT (BEAKER) (test 5.03 K/ L 1.78-5.38 wsxf=718) LYMPHOCYTES ABSOLUTE COUNT (BEAKER) (test 1.32 K/ L 1.32-3.57 scoa=085) MONOCYTES ABSOLUTE COUNT (BEAKER) (test 0.93 K/ L 0.30-0.82 wont=951) EOSINOPHILS ABSOLUTE COUNT (BEAKER) (test 1.09 K/ L 0.04-0.54 llpu=831) BASOPHILS ABSOLUTE COUNT (BEAKER) (test 0.05 K/ L 0.01-0.08 alws=363) IMMATURE GRANULOCYTES-RELATIVE PERCENT (BEAKER) 0 % 0-1 (test yvqd=7289) POCT-GLUCOSE [id number] 01:56:00 Test Item Value Reference Range Comments POC-GLUCOSE METER (BEAKER) 100 mg/dL 70-110 TESTED AT [facility] [address] (test kgbl=0670) [facility] [address] RAD, FOOT, MIN 3 VIEWS, [id number] 12:54:00Reason for exam:->s/p TMAFINAL REPORT Right foot, three images HISTORY: Intubation COMPARISON: 09/06/2018 IMPRESSION:Transmetatarsal amputation of all digits. No appreciable fracture. No dislocation. Bandage material present. Vascular consultation. Signed: Josey Laweport Verified Date/Time: 12:54:24 Reading Location: [address] Transitional Reading Room AFB CULTURE + [id number] 10:29:00 Test Item Value Reference Range Comments CULTURE (BEAKER) (test No acid-fast bacilli isolated jnih=3542) in 42 days AFB SMEAR (BEAKER) (test No acid fast bacilli seen xunk=148) AFB CULTURE + [id number] 10:29:00 Test Item Value Reference Range Comments CULTURE (BEAKER) (test No acid-fast bacilli isolated izdg=8495) in 42 days AFB SMEAR (BEAKER) (test No acid fast bacilli seen qluh=693) AFB CULTURE + [id number] 10:29:00 Test Item Value Reference Range Comments CULTURE (BEAKER) (test No acid-fast bacilli isolated zylo=0260) in 42 days AFB SMEAR (BEAKER) (test No acid fast bacilli seen hlqd=591) FUNGUS CULTURE + [id number] 16:39:00 Test Item Value Reference Range Comments CULTURE (BEAKER) (test No fungus isolated in 28 days gcgd=4852) FUNGUS SMEAR (BEAKER) (test No fungi seen ymfj=2537) FUNGUS CULTURE + [id number] 16:39:00 Test Item Value Reference Range Comments CULTURE (BEAKER) (test No fungus isolated in 28 days rjmt=9740) FUNGUS SMEAR (BEAKER) (test No fungi seen ossf=6083) FUNGUS CULTURE + [id number] 16:39:00 Test Item Value Reference Range Comments CULTURE (BEAKER) (test No fungus isolated in 28 days txop=2193) FUNGUS SMEAR (BEAKER) (test No fungi seen hapt=2463) TISSUE [id number] 20:00:00Surgical Pathology Report Case: [id number] Authorizing Provider: Aba Millan DPM Collected: 09/13/2018 0820 Ordering Location: [facility] PERIOPERATIVE Received: 09/13/2018 0926 SERVICES Pathologist: Carrol Trammell MD Specimen: Metatarsal, Right BONE, RIGHT FOOT , METATARSAL, DEBRIDEMENT:- GANGRENOUS NECROSIS- OSTEOMYELITIS- NEGATIVE FOR MALIGNANCY Signing Pathologist Direct Phone Line: [phone] signed by Carrol Trammell MD on 2018 at 8:00 [id number] surgical woundRight metatarsal. Specimen is received in formalin-filled container labeled with the patient's information and labeled "right metatarsal" and consists of multiple fragments of ch hemorrhagic bone and soft tissue measuring 2.5 x 2 x 1 cm in aggregate. Specimen is sectioned and submitted entirely A1-A4 for decalcification. CG/bc Performed.POCT-GLUCOSE [id number] 13:34:00 Test Item Value Reference Range Comments POC-GLUCOSE METER (BEAKER) 148 mg/dL 70-110 TESTED AT [place] [id number] [facility] (test rhfx=7610) [facility] [address] POCT-GLUCOSE [id number] 08:11:00 Test Item Value Reference Range Comments POC-GLUCOSE METER (BEAKER) 139 mg/dL 70-110 TESTED AT [facility] [address] [facility] (test lnhy=9153) [facility] [address] BASIC METABOLIC [id number] 04:47:00 Test Item Value Reference Range Comments SODIUM (BEAKER) (test 136 meq/L 136-145 umvl=938) POTASSIUM (BEAKER) (test 4.3 meq/L 3.5-5.1 efcx=316) CHLORIDE (BEAKER) (test 97 meq/L 98-107 cwsb=496) CO2 (BEAKER) (test 27 meq/L 22-29 adzd=111) BLOOD UREA NITROGEN 43 mg/dL 7-21 (BEAKER) (test ymru=969) CREATININE (BEAKER) (test 5.04 mg/dL 0.57-1.25 plpc=081) GLUCOSE RANDOM (BEAKER) 94 mg/dL 70-105 (test kwee=985) CALCIUM (BEAKER) (test 8.7 mg/dL 8.4-10.2 xomu=589) EGFR (BEAKER) (test 11 mL/min/1.73 sq m ESTIMATED GFR IS NOT vmks=9204) ACCURATE CREATININE CLEARANCE IN PREDICTING GLOMERULAR FILTRATION RATE. ESTIMATED GFR IS NOT APPLICABLE FOR DIALYSIS PATIENTS. [id number] 04:46:00 Test Item Value Reference Range Comments PHOSPHORUS (BEAKER) (test xtor=525) 3.2 mg/dL 2.3-4.7 [id number] 04:46:00 Test Item Value Reference Range Comments MAGNESIUM (BEAKER) (test ulyw=503) 2.1 mg/dL 1.6-2.6 CBC W/PLT COUNT & AUTO [id number] 04:39:00 Test Item Value Reference Range Comments WHITE BLOOD CELL COUNT (BEAKER) (test mziy=481) 7.8 K/ L 3.5-10.5 RED BLOOD CELL COUNT (BEAKER) (test tpfu=950) 2.72 M/ L 4.63-6.08 HEMOGLOBIN (BEAKER) (test xoru=952) 8.9 GM/DL 13.7-17.5 HEMATOCRIT (BEAKER) (test vyiy=047) 27.9 % 40.1-51.0 MEAN CORPUSCULAR VOLUME (BEAKER) (test lnit=727) 102.6 fL 79.0-92.2 MEAN CORPUSCULAR HEMOGLOBIN (BEAKER) (test 32.7 pg 25.7-32.2 aowa=061) MEAN CORPUSCULAR HEMOGLOBIN CONC (BEAKER) (test 31.9 GM/DL 32.3-36.5 zmaj=352) RED CELL DISTRIBUTION WIDTH (BEAKER) (test 17.2 % 11.6-14.4 hazl=833) PLATELET COUNT (BEAKER) (test xygf=452) 244 K/CU MM 150-450 MEAN PLATELET VOLUME (BEAKER) (test raqf=725) 11.2 fL 9.4-12.4 NUCLEATED RED BLOOD CELLS (BEAKER) (test 0 /100 WBC 0-0 ewts=710) NEUTROPHILS RELATIVE PERCENT (BEAKER) (test 62 % solq=389) LYMPHOCYTES RELATIVE PERCENT (BEAKER) (test 19 % dyrk=774) MONOCYTES RELATIVE PERCENT (BEAKER) (test 10 % xjxx=048) EOSINOPHILS RELATIVE PERCENT (BEAKER) (test 7 % rzjd=151) BASOPHILS RELATIVE PERCENT (BEAKER) (test 1 % erue=146) NEUTROPHILS ABSOLUTE COUNT (BEAKER) (test 4.83 K/ L 1.78-5.38 afyp=506) LYMPHOCYTES ABSOLUTE COUNT (BEAKER) (test 1.49 K/ L 1.32-3.57 cdzm=558) MONOCYTES ABSOLUTE COUNT (BEAKER) (test 0.80 K/ L 0.30-0.82 llwg=060) EOSINOPHILS ABSOLUTE COUNT (BEAKER) (test 0.51 K/ L 0.04-0.54 zpij=872) BASOPHILS ABSOLUTE COUNT (BEAKER) (test 0.05 K/ L 0.01-0.08 ruge=640) IMMATURE GRANULOCYTES-RELATIVE PERCENT (BEAKER) 1 % 0-1 (test ubsx=7369) POCT-GLUCOSE [id number] 21:35:00 Test Item Value Reference Range Comments POC-GLUCOSE METER (BEAKER) 181 mg/dL 70-110 TESTED AT [address] (test txmu=8071) [place] [id number] POCT-GLUCOSE [id number] 17:58:00 Test Item Value Reference Range Comments POC-GLUCOSE METER (BEAKER) 166 mg/dL 70-110 TESTED AT [address] (test aygm=5724) [place] [address] POCT-GLUCOSE [id number] 12:45:00 Test Item Value Reference Range Comments POC-GLUCOSE METER (BEAKER) 146 mg/dL 70-110 TESTED AT [address] (test pwvm=7795) [place] [address] POCT-GLUCOSE [id number] 08:59:00 Test Item Value Reference Range Comments POC-GLUCOSE METER (BEAKER) 158 mg/dL 70-110 TESTED AT [address] (test njsq=0107) [place] [address] [id number] 05:22:00 Test Item Value Reference Range Comments PHOSPHORUS (BEAKER) (test ryaa=533) 2.5 mg/dL 2.3-4.7 [id number] 05:22:00 Test Item Value Reference Range Comments MAGNESIUM (BEAKER) (test behm=181) 2.0 mg/dL 1.6-2.6 CBC W/PLT COUNT & AUTO [id number] 05:03:00 Test Item Value Reference Range Comments WHITE BLOOD CELL COUNT (BEAKER) (test rjzw=511) 8.2 K/ L 3.5-10.5 RED BLOOD CELL COUNT (BEAKER) (test pmjr=278) 2.70 M/ L 4.63-6.08 HEMOGLOBIN (BEAKER) (test znho=053) 8.8 GM/DL 13.7-17.5 HEMATOCRIT (BEAKER) (test xcgd=372) 28.2 % 40.1-51.0 MEAN CORPUSCULAR VOLUME (BEAKER) (test xeis=028) 104.4 fL 79.0-92.2 MEAN CORPUSCULAR HEMOGLOBIN (BEAKER) (test 32.6 pg 25.7-32.2 dnzu=751) MEAN CORPUSCULAR HEMOGLOBIN CONC (BEAKER) (test 31.2 GM/DL 32.3-36.5 cyka=193) RED CELL DISTRIBUTION WIDTH (BEAKER) (test 17.4 % 11.6-14.4 svrl=748) PLATELET COUNT (BEAKER) (test smgo=274) 255 K/CU MM 150-450 MEAN PLATELET VOLUME (BEAKER) (test ztdq=221) 11.1 fL 9.4-12.4 NUCLEATED RED BLOOD CELLS (BEAKER) (test 0 /100 WBC 0-0 egit=271) NEUTROPHILS RELATIVE PERCENT (BEAKER) (test 68 % hbku=652) LYMPHOCYTES RELATIVE PERCENT (BEAKER) (test 15 % fuit=671) MONOCYTES RELATIVE PERCENT (BEAKER) (test 10 % mfrl=521) EOSINOPHILS RELATIVE PERCENT (BEAKER) (test 6 % aykc=774) BASOPHILS RELATIVE PERCENT (BEAKER) (test 1 % moiw=217) NEUTROPHILS ABSOLUTE COUNT (BEAKER) (test 5.50 K/ L 1.78-5.38 ucct=339) LYMPHOCYTES ABSOLUTE COUNT (BEAKER) (test 1.25 K/ L 1.32-3.57 juyk=692) MONOCYTES ABSOLUTE COUNT (BEAKER) (test 0.85 K/ L 0.30-0.82 xrqo=754) EOSINOPHILS ABSOLUTE COUNT (BEAKER) (test 0.46 K/ L 0.04-0.54 hcki=897) BASOPHILS ABSOLUTE COUNT (BEAKER) (test 0.04 K/ L 0.01-0.08 voag=603) IMMATURE GRANULOCYTES-RELATIVE PERCENT (BEAKER) 1 % 0-1 (test bfhk=5573) POCT-GLUCOSE [id number] 21:29:00 Test Item Value Reference Range Comments POC-GLUCOSE METER (BEAKER) 175 mg/dL 70-110 TESTED AT [address] (test xcen=0522) [place] [address] POCT-GLUCOSE [id number] 17:57:00 Test Item Value Reference Range Comments POC-GLUCOSE METER (BEAKER) 171 mg/dL 70-110 TESTED AT [address] (test gcxl=6121) [place] [address] POCT-GLUCOSE [id number] 13:43:00 Test Item Value Reference Range Comments POC-GLUCOSE METER (BEAKER) 189 mg/dL 70-110 TESTED AT [address] (test ayih=3998) [place] [address] TISSUE [id number] 13:19:00Surgical Pathology Report Case: [id number] Authorizing Provider: Aba Millan DPM Collected: 09/07/2018 0837 Ordering Location: [address] Received: 09/09/2018 0839 Service Pathologist: Rober Hicks MD Specimen: Foot, Right, right foot amputation FOOT, RIGHT, DISTAL AMPUTATION: GANGRENOUS NECROSIS OF SKIN AND SOFT TISSUE.UNDERLYING ACUTE AND CHRONIC OSTEOMYELITISCALCIFIC ATHEROSCLEROSIS.RESECTION MARGINS VIABLE.SPECIAL STAINS FOR FUNGAL ORGANISMS (GMS, PAS) ARE NEGATIVE. Signing Pathologist Direct Phone Line: [phone] signed by Rober Hicks MD on at 1:19 [id number] x2Open wound of right lower extremity Right [...] Sectioning reveals dark brown necrotic cut surface. Auto B[employer] Straight[employer] sections are submitted as follows: A1- skin and soft tissue at resection margin ; A2- bone at resection margin following decalcification; A3- skin at resection margin to include ulcer; A4- ulcer with underlying bone following decalcification; A5- section to include underlying vessels; A7- personnel representative of the detached pieces of tissue. SA/bc Performed.The interpretation of this case included the use of immunohistochemistry or special stains. BLOCK A3- GMS, PASImmunohistochemistry technical testing was performed at [facility], Pathology Laboratory where it was developed and [...] perform high complexity clinical laboratory testing.BASIC METABOLIC [id number] 10:39:00 Test Item Value Reference Range Comments SODIUM (BEAKER) (test 138 meq/L 136-145 vlet=825) POTASSIUM (BEAKER) (test 4.8 meq/L 3.5-5.1 flcg=465) CHLORIDE (BEAKER) (test 99 meq/L 98-107 emnp=026) CO2 (BEAKER) (test 28 meq/L 22-29 mnqk=699) BLOOD UREA NITROGEN 46 mg/dL 7-21 (BEAKER) (test dlph=129) CREATININE (BEAKER) (test 5.96 mg/dL 0.57-1.25 fqmp=909) GLUCOSE RANDOM (BEAKER) 93 mg/dL 70-105 (test idvk=824) CALCIUM (BEAKER) (test 8.5 mg/dL 8.4-10.2 kylj=122) EGFR (BEAKER) (test 9 mL/min/1.73 sq m ESTIMATED GFR IS NOT lstp=9795) ACCURATE CREATININE CLEARANCE IN PREDICTING GLOMERULAR FILTRATION RATE. ESTIMATED GFR IS NOT APPLICABLE FOR DIALYSIS PATIENTS. POCT-GLUCOSE [id number] 07:45:00 Test Item Value Reference Range Comments POC-GLUCOSE METER (BEAKER) 127 mg/dL 70-110 TESTED AT [facility] [address] [facility] (test bcfo=2924) [facility] [address] [id number] 06:16:00 Test Item Value Reference Range Comments PHOSPHORUS (BEAKER) (test zrrz=431) 4.1 mg/dL 2.3-4.7 [id number] 06:16:00 Test Item Value Reference Range Comments MAGNESIUM (BEAKER) (test kpfz=654) 2.0 mg/dL 1.6-2.6 CBC W/PLT COUNT & AUTO [id number] 05:30:00 Test Item Value Reference Range Comments WHITE BLOOD CELL COUNT (BEAKER) (test fyky=269) 9.1 K/ L 3.5-10.5 RED BLOOD CELL COUNT (BEAKER) (test rdvy=249) 2.70 M/ L 4.63-6.08 HEMOGLOBIN (BEAKER) (test nagc=397) 8.8 GM/DL 13.7-17.5 HEMATOCRIT (BEAKER) (test xrvw=374) 28.2 % 40.1-51.0 MEAN CORPUSCULAR VOLUME (BEAKER) (test lqel=313) 104.4 fL 79.0-92.2 MEAN CORPUSCULAR HEMOGLOBIN (BEAKER) (test 32.6 pg 25.7-32.2 fekw=360) MEAN CORPUSCULAR HEMOGLOBIN CONC (BEAKER) (test 31.2 GM/DL 32.3-36.5 zzvn=101) RED CELL DISTRIBUTION WIDTH (BEAKER) (test 17.2 % 11.6-14.4 wyxy=256) PLATELET COUNT (BEAKER) (test kcap=624) 238 K/CU MM 150-450 MEAN PLATELET VOLUME (BEAKER) (test krtm=170) 10.6 fL 9.4-12.4 NUCLEATED RED BLOOD CELLS (BEAKER) (test 0 /100 WBC 0-0 fcjx=406) NEUTROPHILS RELATIVE PERCENT (BEAKER) (test 69 % anup=526) LYMPHOCYTES RELATIVE PERCENT (BEAKER) (test 15 % lbgu=922) MONOCYTES RELATIVE PERCENT (BEAKER) (test 9 % dzfj=382) EOSINOPHILS RELATIVE PERCENT (BEAKER) (test 7 % wtff=413) BASOPHILS RELATIVE PERCENT (BEAKER) (test 0 % zkvi=234) NEUTROPHILS ABSOLUTE COUNT (BEAKER) (test 6.25 K/ L 1.78-5.38 jfgp=150) LYMPHOCYTES ABSOLUTE COUNT (BEAKER) (test 1.36 K/ L 1.32-3.57 swol=469) MONOCYTES ABSOLUTE COUNT (BEAKER) (test 0.78 K/ L 0.30-0.82 rrfm=491) EOSINOPHILS ABSOLUTE COUNT (BEAKER) (test 0.61 K/ L 0.04-0.54 nalo=023) BASOPHILS ABSOLUTE COUNT (BEAKER) (test 0.04 K/ L 0.01-0.08 ubnq=940) IMMATURE GRANULOCYTES-RELATIVE PERCENT (BEAKER) 1 % 0-1 (test xkbz=7016) POCT-GLUCOSE [id number] 21:26:00 Test Item Value Reference Range Comments POC-GLUCOSE METER (BEAKER) 117 mg/dL 70-110 TESTED AT [address] (test akcu=7710) [place] [id number] POCT-GLUCOSE [id number] 17:29:00 Test Item Value Reference Range Comments POC-GLUCOSE METER (BEAKER) 212 mg/dL 70-110 TESTED AT [address] (test vsob=1897) [place] [address] POCT-GLUCOSE [id number] 11:33:00 Test Item Value Reference Range Comments POC-GLUCOSE METER (BEAKER) 185 mg/dL 70-110 TESTED AT [address] (test oies=2445) [place] [address] RAD, FOOT, MIN 3 VIEWS, [id number] 08:28:00Reason for exam:->s/p amputationFINAL REPORT RIGHT FOOT [...] Huffman MDReport Verified Date/Time: 09/15/201808:28:29 Reading Location: [address] Reading Room POCT- GLUCOSE [id number] 08:02:00 Test Item Value Reference Range Comments POC-GLUCOSE METER (BEAKER) 171 mg/dL 70-110 TESTED AT [address] (test zeue=4624) [facility] [address] [id number] 06:39:00 Test Item Value Reference Range Comments PHOSPHORUS (BEAKER) (test zyzl=940) 3.4 mg/dL 2.3-4.7 [id number] 06:39:00 Test Item Value Reference Range Comments MAGNESIUM (BEAKER) (test iknp=288) 2.1 mg/dL 1.6-2.6 CBC W/PLT COUNT & AUTO [id number] 05:38:00 Test Item Value Reference Range Comments WHITE BLOOD CELL COUNT (BEAKER) (test ljqd=507) 8.4 K/ L 3.5-10.5 RED BLOOD CELL COUNT (BEAKER) (test mekm=877) 2.64 M/ L 4.63-6.08 HEMOGLOBIN (BEAKER) (test elhm=764) 8.7 GM/DL 13.7-17.5 HEMATOCRIT (BEAKER) (test rdzm=635) 27.7 % 40.1-51.0 MEAN CORPUSCULAR VOLUME (BEAKER) (test mgct=071) 104.9 fL 79.0-92.2 MEAN CORPUSCULAR HEMOGLOBIN (BEAKER) (test 33.0 pg 25.7-32.2 nuap=314) MEAN CORPUSCULAR HEMOGLOBIN CONC (BEAKER) (test 31.4 GM/DL 32.3-36.5 mjnb=721) RED CELL DISTRIBUTION WIDTH (BEAKER) (test 17.3 % 11.6-14.4 aftz=840) PLATELET COUNT (BEAKER) (test fnrf=246) 238 K/CU MM 150-450 MEAN PLATELET VOLUME (BEAKER) (test nlzn=127) 11.4 fL 9.4-12.4 NUCLEATED RED BLOOD CELLS (BEAKER) (test 0 /100 WBC 0-0 qjtd=393) NEUTROPHILS RELATIVE PERCENT (BEAKER) (test 65 % cuku=915) LYMPHOCYTES RELATIVE PERCENT (BEAKER) (test 16 % kepz=417) MONOCYTES RELATIVE PERCENT (BEAKER) (test 12 % zdlf=946) EOSINOPHILS RELATIVE PERCENT (BEAKER) (test 6 % pbhg=722) BASOPHILS RELATIVE PERCENT (BEAKER) (test 1 % cgcn=356) NEUTROPHILS ABSOLUTE COUNT (BEAKER) (test 5.50 K/ L 1.78-5.38 ipru=426) LYMPHOCYTES ABSOLUTE COUNT (BEAKER) (test 1.33 K/ L 1.32-3.57 jjza=916) MONOCYTES ABSOLUTE COUNT (BEAKER) (test 1.01 K/ L 0.30-0.82 tpms=685) EOSINOPHILS ABSOLUTE COUNT (BEAKER) (test 0.47 K/ L 0.04-0.54 kaqb=508) BASOPHILS ABSOLUTE COUNT (BEAKER) (test 0.05 K/ L 0.01-0.08 oakj=098) IMMATURE GRANULOCYTES-RELATIVE PERCENT (BEAKER) 1 % 0-1 (test rard=8572) POCT-GLUCOSE [id number] 21:37:00 Test Item Value Reference Range Comments POC-GLUCOSE METER (BEAKER) 203 mg/dL 70-110 TESTED AT [address] (test hiba=9454) [facility] [address] POCT-GLUCOSE [id number] 17:17:00 Test Item Value Reference Range Comments POC-GLUCOSE METER (BEAKER) 135 mg/dL 70-110 TESTED AT [address] (test lchp=7784) [facility] [address] POCT-GLUCOSE [id number] 13:16:00 Test Item Value Reference Range Comments POC-GLUCOSE METER (BEAKER) 177 mg/dL 70-110 TESTED AT [facility] [address] [facility] (test idho=8747) [facility] [address] POCT-GLUCOSE [id number] 07:55:00 Test Item Value Reference Range Comments POC-GLUCOSE METER (BEAKER) 136 mg/dL 70-110 TESTED AT [facility] [address] [facility] (test ojfr=5338) [facility] [address] BASIC METABOLIC [id number] 05:47:00 Test Item Value Reference Range Comments SODIUM (BEAKER) (test 139 meq/L 136-145 fskk=871) POTASSIUM (BEAKER) (test 4.3 meq/L 3.5-5.1 kypp=914) CHLORIDE (BEAKER) (test 102 meq/L 98-107 vnqx=314) CO2 (BEAKER) (test 30 meq/L 22-29 tokw=656) BLOOD UREA NITROGEN 21 mg/dL 7-21 (BEAKER) (test klnf=767) CREATININE (BEAKER) (test 3.49 mg/dL 0.57-1.25 rakb=897) GLUCOSE RANDOM (BEAKER) 119 mg/dL 70-105 (test vjge=365) CALCIUM (BEAKER) (test 8.7 mg/dL 8.4-10.2 bcdf=389) EGFR (BEAKER) (test 17 mL/min/1.73 sq m ESTIMATED GFR IS NOT lwaq=8404) ACCURATE CREATININE CLEARANCE IN PREDICTING GLOMERULAR FILTRATION RATE. ESTIMATED GFR IS NOT APPLICABLE FOR DIALYSIS PATIENTS. [id number] 04:09:00 Test Item Value Reference Range Comments PHOSPHORUS (BEAKER) (test mwgf=399) 2.8 mg/dL 2.3-4.7 [id number] 04:09:00 Test Item Value Reference Range Comments MAGNESIUM (BEAKER) (test swul=742) 1.9 mg/dL 1.6-2.6 CBC W/PLT COUNT & AUTO [id number] 03:46:00 Test Item Value Reference Range Comments WHITE BLOOD CELL COUNT (BEAKER) (test bije=965) 7.6 K/ L 3.5-10.5 RED BLOOD CELL COUNT (BEAKER) (test ctzj=535) 2.78 M/ L 4.63-6.08 HEMOGLOBIN (BEAKER) (test oogw=271) 9.0 GM/DL 13.7-17.5 HEMATOCRIT (BEAKER) (test avrm=551) 29.2 % 40.1-51.0 MEAN CORPUSCULAR VOLUME (BEAKER) (test ailo=654) 105.0 fL 79.0-92.2 MEAN CORPUSCULAR HEMOGLOBIN (BEAKER) (test 32.4 pg 25.7-32.2 emix=708) MEAN CORPUSCULAR HEMOGLOBIN CONC (BEAKER) (test 30.8 GM/DL 32.3-36.5 ztql=585) RED CELL DISTRIBUTION WIDTH (BEAKER) (test 17.1 % 11.6-14.4 msem=263) PLATELET COUNT (BEAKER) (test xgzd=282) 209 K/CU MM 150-450 MEAN PLATELET VOLUME (BEAKER) (test pnqs=841) 11.1 fL 9.4-12.4 NUCLEATED RED BLOOD CELLS (BEAKER) (test 0 /100 WBC 0-0 lpnb=685) NEUTROPHILS RELATIVE PERCENT (BEAKER) (test 66 % crul=298) LYMPHOCYTES RELATIVE PERCENT (BEAKER) (test 15 % mdrq=776) MONOCYTES RELATIVE PERCENT (BEAKER) (test 13 % ktzx=008) EOSINOPHILS RELATIVE PERCENT (BEAKER) (test 5 % icid=860) BASOPHILS RELATIVE PERCENT (BEAKER) (test 1 % ktmu=854) NEUTROPHILS ABSOLUTE COUNT (BEAKER) (test 4.95 K/ L 1.78-5.38 lxhp=663) LYMPHOCYTES ABSOLUTE COUNT (BEAKER) (test 1.13 K/ L 1.32-3.57 vjkq=144) MONOCYTES ABSOLUTE COUNT (BEAKER) (test 0.99 K/ L 0.30-0.82 mawc=415) EOSINOPHILS ABSOLUTE COUNT (BEAKER) (test 0.38 K/ L 0.04-0.54 ddus=419) BASOPHILS ABSOLUTE COUNT (BEAKER) (test 0.07 K/ L 0.01-0.08 ovka=702) IMMATURE GRANULOCYTES-RELATIVE PERCENT (BEAKER) 1 % 0-1 (test enro=5556) POCT-GLUCOSE [id number] 22:47:00 Test Item Value Reference Range Comments POC-GLUCOSE METER (BEAKER) 165 mg/dL 70-110 TESTED AT [facility] [address] [facility] (test qmcb=9727) [place] [address] POCT-GLUCOSE [id number] 19:32:00 Test Item Value Reference Range Comments POC-GLUCOSE METER (BEAKER) 159 mg/dL 70-110 TESTED AT [address] (test psyz=5071) [place] [address] POCT-GLUCOSE [id number] 17:32:00 Test Item Value Reference Range Comments POC-GLUCOSE METER (BEAKER) 119 mg/dL 70-110 TESTED AT [address] (test cuct=7218) [place] [address] ANAEROBIC [id number] 16:45:00 Test Item Value Reference Range Comments CULTURE (BEAKER) (test <1+ Same organism has been isolated hqgl=3228) from culture(s) of the same body site and collection date. Repeat identification performed only after consultation with the clinical microbiology laboratory.Refer to previous culture ofBacteroides species, not fragilis ANAEROBIC [id number] 16:42:00 Test Item Value Reference Range Comments CULTURE (BEAKER) (test 4+ Bacteroides species, not jfcl=9983) fragilis ANAEROBIC [id number] 16:37:00 Test Item Value Reference Range Comments CULTURE (BEAKER) (test 1+ Same organism has been isolated kxfb=1174) from culture(s) of the same body site and collection date. Repeat identification performed only after consultation with the clinical microbiology laboratory.Refer to previous culture ofBacteroides species, not fragilis POCT-GLUCOSE [id number] 09:46:00 Test Item Value Reference Range Comments POC-GLUCOSE METER (BEAKER) 114 mg/dL 70-110 TESTED AT [address] (test wzwu=6706) [place] [address] POCT-GLUCOSE [id number] 09:03:00 Test Item Value Reference Range Comments POC-GLUCOSE METER (BEAKER) 117 mg/dL 70-110 TESTED AT [address] (test kcgm=6589) [place] [address] BASIC METABOLIC [id number] 06:08:00 Test Item Value Reference Range Comments SODIUM (BEAKER) (test 137 meq/L 136-145 uwut=165) POTASSIUM (BEAKER) (test 4.3 meq/L 3.5-5.1 brkr=407) CHLORIDE (BEAKER) (test 99 meq/L 98-107 gmll=064) CO2 (BEAKER) (test 28 meq/L 22-29 siwn=503) BLOOD UREA NITROGEN 36 mg/dL 7-21 (BEAKER) (test czbd=098) CREATININE (BEAKER) (test 5.01 mg/dL 0.57-1.25 zdlf=010) GLUCOSE RANDOM (BEAKER) 78 mg/dL 70-105 (test nxiq=086) CALCIUM (BEAKER) (test 8.9 mg/dL 8.4-10.2 bbbk=528) EGFR (BEAKER) (test 11 mL/min/1.73 sq m ESTIMATED GFR IS NOT vvxp=4298) ACCURATE CREATININE CLEARANCE IN PREDICTING GLOMERULAR FILTRATION RATE. ESTIMATED GFR IS NOT APPLICABLE FOR DIALYSIS PATIENTS. [id number] 06:04:00 Test Item Value Reference Range Comments PHOSPHORUS (BEAKER) (test kwew=234) 3.9 mg/dL 2.3-4.7 [id number] 06:04:00 Test Item Value Reference Range Comments MAGNESIUM (BEAKER) (test epoe=627) 2.0 mg/dL 1.6-2.6 CBC W/PLT COUNT & AUTO [id number] 05:20:00 Test Item Value Reference Range Comments WHITE BLOOD CELL COUNT (BEAKER) (test lxjb=325) 8.3 K/ L 3.5-10.5 RED BLOOD CELL COUNT (BEAKER) (test rtid=294) 3.03 M/ L 4.63-6.08 HEMOGLOBIN (BEAKER) (test uftp=979) 9.7 GM/DL 13.7-17.5 HEMATOCRIT (BEAKER) (test ytao=070) 30.9 % 40.1-51.0 MEAN CORPUSCULAR VOLUME (BEAKER) (test einy=395) 102.0 fL 79.0-92.2 MEAN CORPUSCULAR HEMOGLOBIN (BEAKER) (test 32.0 pg 25.7-32.2 ymgv=652) MEAN CORPUSCULAR HEMOGLOBIN CONC (BEAKER) (test 31.4 GM/DL 32.3-36.5 ezpg=519) RED CELL DISTRIBUTION WIDTH (BEAKER) (test 16.7 % 11.6-14.4 otmr=249) PLATELET COUNT (BEAKER) (test xutc=570) 238 K/CU MM 150-450 MEAN PLATELET VOLUME (BEAKER) (test hhsa=788) 11.3 fL 9.4-12.4 NUCLEATED RED BLOOD CELLS (BEAKER) (test 0 /100 WBC 0-0 vcix=975) NEUTROPHILS RELATIVE PERCENT (BEAKER) (test 66 % htaa=050) LYMPHOCYTES RELATIVE PERCENT (BEAKER) (test 15 % tdfc=214) MONOCYTES RELATIVE PERCENT (BEAKER) (test 11 % jmhr=921) EOSINOPHILS RELATIVE PERCENT (BEAKER) (test 7 % bufh=546) BASOPHILS RELATIVE PERCENT (BEAKER) (test 1 % qvqy=455) NEUTROPHILS ABSOLUTE COUNT (BEAKER) (test 5.46 K/ L 1.78-5.38 elov=703) LYMPHOCYTES ABSOLUTE COUNT (BEAKER) (test 1.21 K/ L 1.32-3.57 wdgs=026) MONOCYTES ABSOLUTE COUNT (BEAKER) (test 0.90 K/ L 0.30-0.82 egfn=183) EOSINOPHILS ABSOLUTE COUNT (BEAKER) (test 0.59 K/ L 0.04-0.54 elmb=361) BASOPHILS ABSOLUTE COUNT (BEAKER) (test 0.08 K/ L 0.01-0.08 mczr=618) IMMATURE GRANULOCYTES-RELATIVE PERCENT (BEAKER) 0 % 0-1 (test ldne=0021) POCT-GLUCOSE [id number] 21:31:00 Test Item Value Reference Range Comments POC-GLUCOSE METER (BEAKER) 102 mg/dL 70-110 TESTED AT [address] (test xuch=5967) [facility] [address] POCT-GLUCOSE [id number] 18:22:00 Test Item Value Reference Range Comments POC-GLUCOSE METER (BEAKER) 119 mg/dL 70-110 TESTED AT [address] (test pphz=5051) [place] [id number] POCT-GLUCOSE [id number] 13:19:00 Test Item Value Reference Range Comments POC-GLUCOSE METER (BEAKER) 169 mg/dL 70-110 TESTED AT [address] (test zcjw=6413) [place] [address] POCT-GLUCOSE [id number] 13:19:00 Test Item Value Reference Range Comments POC-GLUCOSE METER (BEAKER) 149 mg/dL 70-110 TESTED AT [address] (test nrzd=8698) [facility] [address] [id number] 05:26:00 Test Item Value Reference Range Comments PHOSPHORUS (BEAKER) (test quey=141) 2.8 mg/dL 2.3-4.7 [id number] 05:26:00 Test Item Value Reference Range Comments MAGNESIUM (BEAKER) (test rmkj=224) 2.0 mg/dL 1.6-2.6 CBC W/PLT COUNT & AUTO [id number] 05:06:00 Test Item Value Reference Range Comments WHITE BLOOD CELL COUNT (BEAKER) (test mvyu=745) 8.8 K/ L 3.5-10.5 RED BLOOD CELL COUNT (BEAKER) (test imfh=138) 2.80 M/ L 4.63-6.08 HEMOGLOBIN (BEAKER) (test kfrx=530) 9.2 GM/DL 13.7-17.5 HEMATOCRIT (BEAKER) (test ptiw=502) 28.9 % 40.1-51.0 MEAN CORPUSCULAR VOLUME (BEAKER) (test rllz=786) 103.2 fL 79.0-92.2 MEAN CORPUSCULAR HEMOGLOBIN (BEAKER) (test 32.9 pg 25.7-32.2 modf=419) MEAN CORPUSCULAR HEMOGLOBIN CONC (BEAKER) (test 31.8 GM/DL 32.3-36.5 nsas=364) RED CELL DISTRIBUTION WIDTH (BEAKER) (test 16.9 % 11.6-14.4 fhjw=218) PLATELET COUNT (BEAKER) (test xtvl=599) 202 K/CU MM 150-450 MEAN PLATELET VOLUME (BEAKER) (test clzk=992) 11.4 fL 9.4-12.4 NUCLEATED RED BLOOD CELLS (BEAKER) (test 0 /100 WBC 0-0 uezv=097) NEUTROPHILS RELATIVE PERCENT (BEAKER) (test 67 % vdtg=724) LYMPHOCYTES RELATIVE PERCENT (BEAKER) (test 14 % axpl=334) MONOCYTES RELATIVE PERCENT (BEAKER) (test 13 % rewd=049) EOSINOPHILS RELATIVE PERCENT (BEAKER) (test 4 % rwiv=777) BASOPHILS RELATIVE PERCENT (BEAKER) (test 1 % qpww=387) NEUTROPHILS ABSOLUTE COUNT (BEAKER) (test 5.89 K/ L 1.78-5.38 tlld=271) LYMPHOCYTES ABSOLUTE COUNT (BEAKER) (test 1.25 K/ L 1.32-3.57 ytnf=973) MONOCYTES ABSOLUTE COUNT (BEAKER) (test 1.13 K/ L 0.30-0.82 jodv=156) EOSINOPHILS ABSOLUTE COUNT (BEAKER) (test 0.39 K/ L 0.04-0.54 kgba=117) BASOPHILS ABSOLUTE COUNT (BEAKER) (test 0.09 K/ L 0.01-0.08 cxpd=732) IMMATURE GRANULOCYTES-RELATIVE PERCENT (BEAKER) 1 % 0-1 (test llhi=9790) POCT-GLUCOSE [id number] 21:42:00 Test Item Value Reference Range Comments POC-GLUCOSE METER (BEAKER) 189 mg/dL 70-110 TESTED AT [address] (test lotn=9810) [place] [address] POCT-GLUCOSE [id number] 17:52:00 Test Item Value Reference Range Comments POC-GLUCOSE METER (BEAKER) 140 mg/dL 70-110 TESTED AT [address] (test vwpf=0808) [place] [address] POCT-GLUCOSE [id number] 14:50:00 Test Item Value Reference Range Comments POC-GLUCOSE METER (BEAKER) 108 mg/dL 70-110 TESTED AT [address] (test ykgs=5537) [place] [address] POCT-GLUCOSE [id number] 13:07:00 Test Item Value Reference Range Comments POC-GLUCOSE METER (BEAKER) 139 mg/dL 70-110 TESTED AT [address] (test kyuk=0296) [place] [address] VITAMIN B12 AND [id number] 12:59:00 Test Item Value Reference Range Comments VITAMIN B12 (BEAKER) (test uvfp=413) 1098 pg/mL 213-816 FOLATE (BEAKER) (test vwfq=348) 12.9 ng/mL >=7.0 SURGICALLY OBTAINED CULTURE + GRAM [id number] 09:25:00 Test Item Value Reference Range Comments CULTURE (BEAKER) (test KLEBSIELLA OXYTOCA 4+ Klebsiella vtqp=7722) oxytocaESBL Positive Amikacin (test code=1) Ampicillin + Sulbactam (test code=6) Aztreonam (test code=32) Cefepime (test code=51) Cefoxitin (test code=68) Ceftazidime (test code=27) Ceftriaxone (test code=52) Ertapenem (test code=38) Gentamicin (test code=18) Levofloxacin (test code=22) Meropenem (test code=34) Nitrofurantoin (test code=23) Piperacillin + Tazobactam (test code=29) Tetracycline (test code=2) Tobramycin (test code=25) Trimethoprim + Sulfamethoxazole (test code=47) CULTURE (BEAKER) (test <1+ Same organism has pwre=4253) been isolated from cultures(s) of the same body site and collection date. Repeat identification and susceptibility testing performed only after consultation with the clinical microbiology laboratory.Refer to previous culture ofAchromobacter species GRAM STAIN RESULT (BEAKER) <1+ WBCs (test ohcd=2383) GRAM STAIN RESULT (BEAKER) No organisms seen (test year=690011) SURGICALLY OBTAINED CULTURE + GRAM [id number] 09:24:00 Test Item Value Reference Range Comments CULTURE (BEAKER) (test <1+ Achromobacter species sibo=5021) GRAM STAIN RESULT <1+ WBCs (BEAKER) (test dvub=5467) GRAM STAIN RESULT No organisms seen (BEAKER) (test vcix=658712) POCT-GLUCOSE [id number] 08:02:00 Test Item Value Reference Range Comments POC-GLUCOSE METER (BEAKER) 97 mg/dL 70-110 TESTED AT [facility] [address] [facility] (test mttx=5825) [facility] [address] [id number] 07:07:00 Test Item Value Reference Range Comments PHOSPHORUS (BEAKER) (test dowm=352) 3.1 mg/dL 2.3-4.7 [id number] 07:07:00 Test Item Value Reference Range Comments MAGNESIUM (BEAKER) (test ohcd=595) 1.8 mg/dL 1.6-2.6 CBC W/PLT COUNT & AUTO [id number] 05:56:00 Test Item Value Reference Range Comments WHITE BLOOD CELL COUNT (BEAKER) (test kuib=232) 10.3 K/ L 3.5-10.5 RED BLOOD CELL COUNT (BEAKER) (test wbxq=791) 2.78 M/ L 4.63-6.08 HEMOGLOBIN (BEAKER) (test zjfv=847) 9.1 GM/DL 13.7-17.5 HEMATOCRIT (BEAKER) (test cnhu=084) 28.7 % 40.1-51.0 MEAN CORPUSCULAR VOLUME (BEAKER) (test agro=023) 103.2 fL 79.0-92.2 MEAN CORPUSCULAR HEMOGLOBIN (BEAKER) (test 32.7 pg 25.7-32.2 qfqg=660) MEAN CORPUSCULAR HEMOGLOBIN CONC (BEAKER) (test 31.7 GM/DL 32.3-36.5 eptc=626) RED CELL DISTRIBUTION WIDTH (BEAKER) (test 17.1 % 11.6-14.4 uwjx=943) PLATELET COUNT (BEAKER) (test ptle=575) 206 K/CU MM 150-450 MEAN PLATELET VOLUME (BEAKER) (test mynh=744) 11.9 fL 9.4-12.4 NUCLEATED RED BLOOD CELLS (BEAKER) (test 0 /100 WBC 0-0 rgbu=638) NEUTROPHILS RELATIVE PERCENT (BEAKER) (test 68 % xlwi=347) LYMPHOCYTES RELATIVE PERCENT (BEAKER) (test 14 % dgct=227) MONOCYTES RELATIVE PERCENT (BEAKER) (test 12 % zukj=834) EOSINOPHILS RELATIVE PERCENT (BEAKER) (test 5 % ueyi=940) BASOPHILS RELATIVE PERCENT (BEAKER) (test 1 % tyjh=407) NEUTROPHILS ABSOLUTE COUNT (BEAKER) (test 7.00 K/ L 1.78-5.38 rdtk=121) LYMPHOCYTES ABSOLUTE COUNT (BEAKER) (test 1.40 K/ L 1.32-3.57 friv=371) MONOCYTES ABSOLUTE COUNT (BEAKER) (test 1.19 K/ L 0.30-0.82 picp=976) EOSINOPHILS ABSOLUTE COUNT (BEAKER) (test 0.54 K/ L 0.04-0.54 qpny=899) BASOPHILS ABSOLUTE COUNT (BEAKER) (test 0.08 K/ L 0.01-0.08 sprj=475) IMMATURE GRANULOCYTES-RELATIVE PERCENT (BEAKER) 0 % 0-1 (test ijxk=3395) POCT-GLUCOSE [id number] 23:12:00 Test Item Value Reference Range Comments POC-GLUCOSE METER (BEAKER) 133 mg/dL 70-110 TESTED AT [address] (test vych=1885) [place] [address] BLOOD [id number] 19:00:00 Test Item Value Reference Range Comments CULTURE (BEAKER) (test pcbh=6176) No growth in 5 days POCT-GLUCOSE [id number] 17:33:00 Test Item Value Reference Range Comments POC-GLUCOSE METER (BEAKER) 186 mg/dL 70-110 TESTED AT [address] (test mjds=2250) [place] [address] POCT-GLUCOSE [id number] 13:57:00 Test Item Value Reference Range Comments POC-GLUCOSE METER (BEAKER) 195 mg/dL 70-110 TESTED AT [address] (test rlsa=4330) [place] [address] BLOOD [id number] 11:00:00 Test Item Value Reference Range Comments CULTURE (BEAKER) (test cshx=1529) No growth in 5 days SURGICALLY OBTAINED CULTURE + GRAM [id number] 10:37:00 Test Item Value Reference Range Comments CULTURE (BEAKER) (test ihkk=5371) No growth GRAM STAIN RESULT (BEAKER) (test <1+ WBCs tema=6924) GRAM STAIN RESULT (BEAKER) (test No organisms seen kjvc=03297) POCT-GLUCOSE [id number] 09:49:00 Test Item Value Reference Range Comments POC-GLUCOSE METER (BEAKER) 107 mg/dL 70-110 TESTED AT [address] (test cpuz=6105) [place] [address] [id number] 06:19:00 Test Item Value Reference Range Comments PHOSPHORUS (BEAKER) (test cjcm=039) 2.7 mg/dL 2.3-4.7 [id number] 06:19:00 Test Item Value Reference Range Comments MAGNESIUM (BEAKER) (test fcnb=012) 1.7 mg/dL 1.6-2.6 CBC W/PLT COUNT & AUTO [id number] 05:24:00 Test Item Value Reference Range Comments WHITE BLOOD CELL COUNT (BEAKER) (test anye=660) 9.3 K/ L 3.5-10.5 RED BLOOD CELL COUNT (BEAKER) (test qjrr=733) 2.73 M/ L 4.63-6.08 HEMOGLOBIN (BEAKER) (test zjuv=634) 8.9 GM/DL 13.7-17.5 HEMATOCRIT (BEAKER) (test zuls=536) 28.0 % 40.1-51.0 MEAN CORPUSCULAR VOLUME (BEAKER) (test bofc=857) 102.6 fL 79.0-92.2 MEAN CORPUSCULAR HEMOGLOBIN (BEAKER) (test 32.6 pg 25.7-32.2 rfgh=294) MEAN CORPUSCULAR HEMOGLOBIN CONC (BEAKER) (test 31.8 GM/DL 32.3-36.5 hnxb=578) RED CELL DISTRIBUTION WIDTH (BEAKER) (test 17.4 % 11.6-14.4 daod=995) PLATELET COUNT (BEAKER) (test kgxn=554) 198 K/CU MM 150-450 MEAN PLATELET VOLUME (BEAKER) (test wpnl=207) 11.7 fL 9.4-12.4 NUCLEATED RED BLOOD CELLS (BEAKER) (test 0 /100 WBC 0-0 tpdx=909) NEUTROPHILS RELATIVE PERCENT (BEAKER) (test 72 % llex=728) LYMPHOCYTES RELATIVE PERCENT (BEAKER) (test 11 % selc=555) MONOCYTES RELATIVE PERCENT (BEAKER) (test 12 % ensm=292) EOSINOPHILS RELATIVE PERCENT (BEAKER) (test 3 % nght=592) BASOPHILS RELATIVE PERCENT (BEAKER) (test 1 % mqkv=860) NEUTROPHILS ABSOLUTE COUNT (BEAKER) (test 6.71 K/ L 1.78-5.38 wdfn=093) LYMPHOCYTES ABSOLUTE COUNT (BEAKER) (test 1.00 K/ L 1.32-3.57 acom=509) MONOCYTES ABSOLUTE COUNT (BEAKER) (test 1.15 K/ L 0.30-0.82 rhpw=897) EOSINOPHILS ABSOLUTE COUNT (BEAKER) (test 0.32 K/ L 0.04-0.54 cwpa=366) BASOPHILS ABSOLUTE COUNT (BEAKER) (test 0.06 K/ L 0.01-0.08 qbun=558) IMMATURE GRANULOCYTES-RELATIVE PERCENT (BEAKER) 0 % 0-1 (test vbij=0210) POCT-GLUCOSE [id number] 22:37:00 Test Item Value Reference Range Comments POC-GLUCOSE METER (BEAKER) 110 mg/dL 70-110 TESTED AT [address] (test ddds=7240) [facility] [address] POCT-GLUCOSE [id number] 21:15:00 Test Item Value Reference Range Comments POC-GLUCOSE METER (BEAKER) 142 mg/dL 70-110 TESTED AT [address] (test biaa=5969) [facility] [address] POCT-GLUCOSE [id number] 13:13:00 Test Item Value Reference Range Comments POC-GLUCOSE METER (BEAKER) 136 mg/dL 70-110 TESTED AT [address] (test mguj=3149) [facility] [address] POCT-GLUCOSE [id number] 09:36:00 Test Item Value Reference Range Comments POC-GLUCOSE METER (BEAKER) 111 mg/dL 70-110 TESTED AT [address] (test dkxp=1830) [facility] [address] BASIC METABOLIC [id number] 06:08:00 Test Item Value Reference Range Comments SODIUM (BEAKER) (test 136 meq/L 136-145 khur=147) POTASSIUM (BEAKER) (test 4.5 meq/L 3.5-5.1 wngc=931) CHLORIDE (BEAKER) (test 97 meq/L 98-107 bdyt=599) CO2 (BEAKER) (test 26 meq/L 22-29 dakb=205) BLOOD UREA NITROGEN 44 mg/dL 7-21 (BEAKER) (test shel=178) CREATININE (BEAKER) (test 5.76 mg/dL 0.57-1.25 oote=228) GLUCOSE RANDOM (BEAKER) 78 mg/dL 70-105 (test siiv=450) CALCIUM (BEAKER) (test 8.2 mg/dL 8.4-10.2 embt=430) EGFR (BEAKER) (test 10 mL/min/1.73 sq m ESTIMATED GFR IS NOT zyfa=9385) ACCURATE CREATININE CLEARANCE IN PREDICTING GLOMERULAR FILTRATION RATE. ESTIMATED GFR IS NOT APPLICABLE FOR DIALYSIS PATIENTS. [id number] 06:02:00 Test Item Value Reference Range Comments PHOSPHORUS (BEAKER) (test rdsl=245) 3.3 mg/dL 2.3-4.7 [id number] 06:02:00 Test Item Value Reference Range Comments MAGNESIUM (BEAKER) (test njiv=042) 1.9 mg/dL 1.6-2.6 CBC W/PLT COUNT & AUTO [id number] 05:39:00 Test Item Value Reference Range Comments WHITE BLOOD CELL COUNT (BEAKER) (test ppzh=391) 8.8 K/ L 3.5-10.5 RED BLOOD CELL COUNT (BEAKER) (test gjuw=554) 2.71 M/ L 4.63-6.08 HEMOGLOBIN (BEAKER) (test ryew=067) 8.9 GM/DL 13.7-17.5 HEMATOCRIT (BEAKER) (test uzxs=875) 27.9 % 40.1-51.0 MEAN CORPUSCULAR VOLUME (BEAKER) (test qexi=370) 103.0 fL 79.0-92.2 MEAN CORPUSCULAR HEMOGLOBIN (BEAKER) (test 32.8 pg 25.7-32.2 qsqt=305) MEAN CORPUSCULAR HEMOGLOBIN CONC (BEAKER) (test 31.9 GM/DL 32.3-36.5 moff=621) RED CELL DISTRIBUTION WIDTH (BEAKER) (test 17.3 % 11.6-14.4 pkwq=532) PLATELET COUNT (BEAKER) (test bexn=445) 177 K/CU MM 150-450 MEAN PLATELET VOLUME (BEAKER) (test lyhh=269) 11.6 fL 9.4-12.4 NUCLEATED RED BLOOD CELLS (BEAKER) (test 0 /100 WBC 0-0 jpcd=974) NEUTROPHILS RELATIVE PERCENT (BEAKER) (test 68 % rmlc=606) LYMPHOCYTES RELATIVE PERCENT (BEAKER) (test 15 % tbrc=967) MONOCYTES RELATIVE PERCENT (BEAKER) (test 11 % cwsx=751) EOSINOPHILS RELATIVE PERCENT (BEAKER) (test 5 % gusi=693) BASOPHILS RELATIVE PERCENT (BEAKER) (test 0 % gjxa=719) NEUTROPHILS ABSOLUTE COUNT (BEAKER) (test 5.98 K/ L 1.78-5.38 evvb=988) LYMPHOCYTES ABSOLUTE COUNT (BEAKER) (test 1.35 K/ L 1.32-3.57 bule=558) MONOCYTES ABSOLUTE COUNT (BEAKER) (test 0.97 K/ L 0.30-0.82 kmwo=137) EOSINOPHILS ABSOLUTE COUNT (BEAKER) (test 0.45 K/ L 0.04-0.54 qjcl=531) BASOPHILS ABSOLUTE COUNT (BEAKER) (test 0.03 K/ L 0.01-0.08 funp=524) IMMATURE GRANULOCYTES-RELATIVE PERCENT (BEAKER) 0 % 0-1 (test viis=5920) POCT-GLUCOSE [id number] 00:11:00 Test Item Value Reference Range Comments POC-GLUCOSE METER (BEAKER) 146 mg/dL 70-110 TESTED AT [address] (test dqgb=8416) [facility] [address] POCT-GLUCOSE [id number] 17:14:00 Test Item Value Reference Range Comments POC-GLUCOSE METER (BEAKER) 160 mg/dL 70-110 TESTED AT [address] (test ffsd=9284) [place] [id number] POCT-GLUCOSE [id number] 13:54:00 Test Item Value Reference Range Comments POC-GLUCOSE METER (BEAKER) 242 mg/dL 70-110 TESTED AT [address] (test enxr=9828) [place] [id number] POCT-GLUCOSE [id number] 13:10:00 Test Item Value Reference Range Comments POC-GLUCOSE METER (BEAKER) 163 mg/dL 70-110 TESTED AT [address] (test zvfo=2337) [place] [address] POCT-GLUCOSE [id number] 08:35:00 Test Item Value Reference Range Comments POC-GLUCOSE METER (BEAKER) 176 mg/dL 70-110 TESTED AT [address] (test cetb=0501) [place] [address] [id number] 04:40:00 Test Item Value Reference Range Comments PHOSPHORUS (BEAKER) (test jrdn=579) 2.7 mg/dL 2.3-4.7 [id number] 04:40:00 Test Item Value Reference Range Comments MAGNESIUM (BEAKER) (test ensv=469) 1.8 mg/dL 1.6-2.6 CBC W/PLT COUNT & AUTO [id number] 04:00:00 Test Item Value Reference Range Comments WHITE BLOOD CELL COUNT (BEAKER) (test hicq=579) 8.5 K/ L 3.5-10.5 RED BLOOD CELL COUNT (BEAKER) (test lapt=835) 2.77 M/ L 4.63-6.08 HEMOGLOBIN (BEAKER) (test qano=349) 9.0 GM/DL 13.7-17.5 HEMATOCRIT (BEAKER) (test xwiq=724) 28.5 % 40.1-51.0 MEAN CORPUSCULAR VOLUME (BEAKER) (test gbai=194) 102.9 fL 79.0-92.2 MEAN CORPUSCULAR HEMOGLOBIN (BEAKER) (test 32.5 pg 25.7-32.2 weeg=720) MEAN CORPUSCULAR HEMOGLOBIN CONC (BEAKER) (test 31.6 GM/DL 32.3-36.5 yxvw=540) RED CELL DISTRIBUTION WIDTH (BEAKER) (test 17.7 % 11.6-14.4 sjct=549) PLATELET COUNT (BEAKER) (test qycl=539) 189 K/CU MM 150-450 MEAN PLATELET VOLUME (BEAKER) (test pwnd=403) 11.5 fL 9.4-12.4 NUCLEATED RED BLOOD CELLS (BEAKER) (test 0 /100 WBC 0-0 zskr=573) NEUTROPHILS RELATIVE PERCENT (BEAKER) (test 72 % pwcb=708) LYMPHOCYTES RELATIVE PERCENT (BEAKER) (test 10 % kfqm=449) MONOCYTES RELATIVE PERCENT (BEAKER) (test 12 % sbcg=097) EOSINOPHILS RELATIVE PERCENT (BEAKER) (test 5 % woal=329) BASOPHILS RELATIVE PERCENT (BEAKER) (test 1 % vlfb=992) NEUTROPHILS ABSOLUTE COUNT (BEAKER) (test 6.13 K/ L 1.78-5.38 sluu=333) LYMPHOCYTES ABSOLUTE COUNT (BEAKER) (test 0.88 K/ L 1.32-3.57 xncu=600) MONOCYTES ABSOLUTE COUNT (BEAKER) (test 0.98 K/ L 0.30-0.82 ytyi=014) EOSINOPHILS ABSOLUTE COUNT (BEAKER) (test 0.39 K/ L 0.04-0.54 vynm=905) BASOPHILS ABSOLUTE COUNT (BEAKER) (test 0.04 K/ L 0.01-0.08 ytsk=140) IMMATURE GRANULOCYTES-RELATIVE PERCENT (BEAKER) 1 % 0-1 (test phbn=0831) POCT-GLUCOSE [id number] 00:16:00 Test Item Value Reference Range Comments POC-GLUCOSE METER (BEAKER) 223 mg/dL 70-110 TESTED AT [address] (test paht=2735) [place] [id number] POCT-GLUCOSE [id number] 16:51:00 Test Item Value Reference Range Comments POC-GLUCOSE METER (BEAKER) 133 mg/dL 70-110 TESTED AT [address] (test xuoi=2344) [place] [address] POCT-GLUCOSE [id number] 12:50:00 Test Item Value Reference Range Comments POC-GLUCOSE METER (BEAKER) 178 mg/dL 70-110 TESTED AT [address] (test kujr=3866) [place] [address] POCT-GLUCOSE [id number] 11:53:00 Test Item Value Reference Range Comments POC-GLUCOSE METER (BEAKER) 177 mg/dL 70-110 TESTED AT [address] (test nowz=4019) [place] [address] POCT-GLUCOSE [id number] 09:58:00 Test Item Value Reference Range Comments POC-GLUCOSE METER (BEAKER) 173 mg/dL 70-110 TESTED AT [address] (test rqxm=0346) [place] [address] CBC W/PLT COUNT & AUTO [id number] 06:10:00 Test Item Value Reference Range Comments WHITE BLOOD CELL COUNT (BEAKER) (test xdaf=416) 7.8 K/ L 3.5-10.5 RED BLOOD CELL COUNT (BEAKER) (test eqbt=233) 3.08 M/ L 4.63-6.08 HEMOGLOBIN (BEAKER) (test jjvy=719) 10.0 GM/DL 13.7-17.5 HEMATOCRIT (BEAKER) (test issz=219) 31.2 % 40.1-51.0 MEAN CORPUSCULAR VOLUME (BEAKER) (test xmpp=723) 101.3 fL 79.0-92.2 MEAN CORPUSCULAR HEMOGLOBIN (BEAKER) (test 32.5 pg 25.7-32.2 iuuq=884) MEAN CORPUSCULAR HEMOGLOBIN CONC (BEAKER) (test 32.1 GM/DL 32.3-36.5 ttcw=545) RED CELL DISTRIBUTION WIDTH (BEAKER) (test 18.7 % 11.6-14.4 swzp=576) PLATELET COUNT (BEAKER) (test lscz=636) 177 K/CU MM 150-450 MEAN PLATELET VOLUME (BEAKER) (test rket=150) 11.4 fL 9.4-12.4 NUCLEATED RED BLOOD CELLS (BEAKER) (test 0 /100 WBC 0-0 hdtg=146) NEUTROPHILS RELATIVE PERCENT (BEAKER) (test 63 % nxbr=160) LYMPHOCYTES RELATIVE PERCENT (BEAKER) (test 15 % dfpz=975) MONOCYTES RELATIVE PERCENT (BEAKER) (test 12 % vxri=622) EOSINOPHILS RELATIVE PERCENT (BEAKER) (test 8 % butx=396) BASOPHILS RELATIVE PERCENT (BEAKER) (test 1 % gwly=064) NEUTROPHILS ABSOLUTE COUNT (BEAKER) (test 4.90 K/ L 1.78-5.38 ojvc=220) LYMPHOCYTES ABSOLUTE COUNT (BEAKER) (test 1.16 K/ L 1.32-3.57 iqkc=183) MONOCYTES ABSOLUTE COUNT (BEAKER) (test 0.92 K/ L 0.30-0.82 gjic=606) EOSINOPHILS ABSOLUTE COUNT (BEAKER) (test 0.65 K/ L 0.04-0.54 bncd=831) BASOPHILS ABSOLUTE COUNT (BEAKER) (test 0.09 K/ L 0.01-0.08 cqrc=522) IMMATURE GRANULOCYTES-RELATIVE PERCENT (BEAKER) 1 % 0-1 (test zrqb=9482) [id number] 06:08:00 Test Item Value Reference Range Comments POTASSIUM (BEAKER) (test ekbi=749) 4.1 meq/L 3.5-5.1 [id number] 06:08:00 Test Item Value Reference Range Comments MAGNESIUM (BEAKER) (test zwix=361) 1.7 mg/dL 1.6-2.6 [id number] 06:08:00 Test Item Value Reference Range Comments PHOSPHORUS (BEAKER) (test obst=277) 2.4 mg/dL 2.3-4.7 POCT-GLUCOSE [id number] 05:20:00 Test Item Value Reference Range Comments POC-GLUCOSE METER (BEAKER) 170 mg/dL 70-110 TESTED AT [address] (test hkik=7927) [facility] [address] POCT-GLUCOSE [id number] 20:31:00 Test Item Value Reference Range Comments POC-GLUCOSE METER (BEAKER) 157 mg/dL 70-110 TESTED AT [address] (test dnzr=1750) [facility] [address] POCT-GLUCOSE [id number] 15:40:00 Test Item Value Reference Range Comments POC-GLUCOSE METER (BEAKER) 148 mg/dL 70-110 TESTED AT [place] [id number] [facility] (test fore=9768) [facility] [address] [id number] 10:23:00 Test Item Value Reference Range Comments POTASSIUM (BEAKER) (test sjyu=221) 4.0 meq/L 3.5-5.1 CBC W/PLT COUNT & AUTO [id number] 05:56:00 Test Item Value Reference Range Comments WHITE BLOOD CELL COUNT (BEAKER) (test xtqi=092) 6.9 K/ L 3.5-10.5 RED BLOOD CELL COUNT (BEAKER) (test fxfa=032) 2.06 M/ L 4.63-6.08 HEMOGLOBIN (BEAKER) (test ebyr=938) 6.9 GM/DL 13.7-17.5 HEMATOCRIT (BEAKER) (test zbln=761) 22.2 % 40.1-51.0 MEAN CORPUSCULAR VOLUME (BEAKER) (test pydl=370) 107.8 fL 79.0-92.2 MEAN CORPUSCULAR HEMOGLOBIN (BEAKER) (test 33.5 pg 25.7-32.2 opfd=988) MEAN CORPUSCULAR HEMOGLOBIN CONC (BEAKER) (test 31.1 GM/DL 32.3-36.5 mvqp=640) RED CELL DISTRIBUTION WIDTH (BEAKER) (test 16.2 % 11.6-14.4 thxg=046) PLATELET COUNT (BEAKER) (test apqx=480) 200 K/CU MM 150-450 MEAN PLATELET VOLUME (BEAKER) (test cvvw=858) 11.0 fL 9.4-12.4 NUCLEATED RED BLOOD CELLS (BEAKER) (test 0 /100 WBC 0-0 oilc=549) NEUTROPHILS RELATIVE PERCENT (BEAKER) (test 59 % drqt=837) LYMPHOCYTES RELATIVE PERCENT (BEAKER) (test 21 % miku=028) MONOCYTES RELATIVE PERCENT (BEAKER) (test 13 % mpye=610) EOSINOPHILS RELATIVE PERCENT (BEAKER) (test 6 % xthl=173) BASOPHILS RELATIVE PERCENT (BEAKER) (test 1 % bmuv=999) NEUTROPHILS ABSOLUTE COUNT (BEAKER) (test 4.08 K/ L 1.78-5.38 lykb=329) LYMPHOCYTES ABSOLUTE COUNT (BEAKER) (test 1.45 K/ L 1.32-3.57 pnov=599) MONOCYTES ABSOLUTE COUNT (BEAKER) (test 0.90 K/ L 0.30-0.82 cuwp=667) EOSINOPHILS ABSOLUTE COUNT (BEAKER) (test 0.38 K/ L 0.04-0.54 nfnv=371) BASOPHILS ABSOLUTE COUNT (BEAKER) (test 0.05 K/ L 0.01-0.08 kkkz=680) IMMATURE GRANULOCYTES-RELATIVE PERCENT (BEAKER) 1 % 0-1 (test mwfu=9838) [id number] 05:37:00 Test Item Value Reference Range Comments PHOSPHORUS (BEAKER) (test izti=295) 3.1 mg/dL 2.3-4.7 [id number] 05:37:00 Test Item Value Reference Range Comments MAGNESIUM (BEAKER) (test mbsw=285) 2.1 mg/dL 1.6-2.6 POCT-GLUCOSE [id number] 17:48:00 Test Item Value Reference Range Comments POC-GLUCOSE METER (BEAKER) 154 mg/dL 70-110 TESTED AT [address] (test zrgz=7484) [place] [address] POCT-GLUCOSE [id number] 12:56:00 Test Item Value Reference Range Comments POC-GLUCOSE METER (BEAKER) 196 mg/dL 70-110 TESTED AT [address] (test zweo=0300) [place] [address] POCT-GLUCOSE [id number] 08:41:00 Test Item Value Reference Range Comments POC-GLUCOSE METER (BEAKER) 158 mg/dL 70-110 TESTED AT [address] (test kxfq=1787) [place] [address] CBC W/PLT COUNT & AUTO [id number] 06:30:00 Test Item Value Reference Range Comments WHITE BLOOD CELL COUNT (BEAKER) (test agya=329) 9.0 K/ L 3.5-10.5 RED BLOOD CELL COUNT (BEAKER) (test mmog=347) 2.49 M/ L 4.63-6.08 HEMOGLOBIN (BEAKER) (test vjzm=294) 8.2 GM/DL 13.7-17.5 HEMATOCRIT (BEAKER) (test xche=553) 27.2 % 40.1-51.0 MEAN CORPUSCULAR VOLUME (BEAKER) (test fmqh=964) 109.2 fL 79.0-92.2 MEAN CORPUSCULAR HEMOGLOBIN (BEAKER) (test 32.9 pg 25.7-32.2 vlat=644) MEAN CORPUSCULAR HEMOGLOBIN CONC (BEAKER) (test 30.1 GM/DL 32.3-36.5 yqdb=052) RED CELL DISTRIBUTION WIDTH (BEAKER) (test 15.9 % 11.6-14.4 usdg=075) PLATELET COUNT (BEAKER) (test usop=321) 214 K/CU MM 150-450 MEAN PLATELET VOLUME (BEAKER) (test jscl=417) 11.3 fL 9.4-12.4 NUCLEATED RED BLOOD CELLS (BEAKER) (test 0 /100 WBC 0-0 cnoq=333) NEUTROPHILS RELATIVE PERCENT (BEAKER) (test 84 % vyor=209) LYMPHOCYTES RELATIVE PERCENT (BEAKER) (test 7 % ilpt=956) MONOCYTES RELATIVE PERCENT (BEAKER) (test 7 % twgu=119) EOSINOPHILS RELATIVE PERCENT (BEAKER) (test 0 % yjvl=558) BASOPHILS RELATIVE PERCENT (BEAKER) (test 1 % rhel=472) NEUTROPHILS ABSOLUTE COUNT (BEAKER) (test 7.60 K/ L 1.78-5.38 mqrs=150) LYMPHOCYTES ABSOLUTE COUNT (BEAKER) (test 0.61 K/ L 1.32-3.57 spfa=804) MONOCYTES ABSOLUTE COUNT (BEAKER) (test 0.65 K/ L 0.30-0.82 jwsp=622) EOSINOPHILS ABSOLUTE COUNT (BEAKER) (test 0.03 K/ L 0.04-0.54 mijp=424) BASOPHILS ABSOLUTE COUNT (BEAKER) (test 0.09 K/ L 0.01-0.08 vlml=545) IMMATURE GRANULOCYTES-RELATIVE PERCENT (BEAKER) 1 % 0-1 (test lgfr=2409) [id number] 06:22:00 Test Item Value Reference Range Comments PHOSPHORUS (BEAKER) (test udmn=096) 3.0 mg/dL 2.3-4.7 [id number] 06:22:00 Test Item Value Reference Range Comments MAGNESIUM (BEAKER) (test xisw=469) 1.9 mg/dL 1.6-2.6 POCT-GLUCOSE [id number] 00:08:00 Test Item Value Reference Range Comments POC-GLUCOSE METER (BEAKER) 131 mg/dL 70-110 TESTED AT [address] (test eykv=6651) [facility] [address] POCT-GLUCOSE [id number] 18:50:00 Test Item Value Reference Range Comments POC-GLUCOSE METER (BEAKER) 136 mg/dL 70-110 TESTED AT [address] (test phyp=0444) [facility] [address] RAD, FOOT, MIN 3 VIEWS, [id number] 13:56:00Reason for exam:->non healing woundFINAL REPORT RAD, [...] MDReport Verified Date/Time: 09/04/2018 13:56:28 Reading Location: [facility] C0[facility] Consult Reading Room POCT- GLUCOSE [id number] 12:12:00 Test Item Value Reference Range Comments POC-GLUCOSE METER (BEAKER) 125 mg/dL 70-110 TESTED AT [address] (test fwxu=1351) [facility] [address] POCT-GLUCOSE [id number] 08:06:00 Test Item Value Reference Range Comments POC-GLUCOSE METER (BEAKER) 122 mg/dL 70-110 TESTED AT [address] (test iggr=5852) [facility] [address] CBC W/PLT COUNT & AUTO [id number] 04:43:00 Test Item Value Reference Range Comments WHITE BLOOD CELL COUNT (BEAKER) (test xvav=456) 8.1 K/ L 3.5-10.5 RED BLOOD CELL COUNT (BEAKER) (test gqqe=005) 2.40 M/ L 4.63-6.08 HEMOGLOBIN (BEAKER) (test ndaz=553) 7.9 GM/DL 13.7-17.5 HEMATOCRIT (BEAKER) (test rlur=131) 25.5 % 40.1-51.0 MEAN CORPUSCULAR VOLUME (BEAKER) (test gbvv=370) 106.3 fL 79.0-92.2 MEAN CORPUSCULAR HEMOGLOBIN (BEAKER) (test 32.9 pg 25.7-32.2 wasz=334) MEAN CORPUSCULAR HEMOGLOBIN CONC (BEAKER) (test 31.0 GM/DL 32.3-36.5 qldr=939) RED CELL DISTRIBUTION WIDTH (BEAKER) (test 15.1 % 11.6-14.4 zwbb=821) PLATELET COUNT (BEAKER) (test aqkw=223) 226 K/CU MM 150-450 MEAN PLATELET VOLUME (BEAKER) (test sckk=797) 11.1 fL 9.4-12.4 NUCLEATED RED BLOOD CELLS (BEAKER) (test 0 /100 WBC 0-0 team=497) NEUTROPHILS RELATIVE PERCENT (BEAKER) (test 63 % rqmk=714) LYMPHOCYTES RELATIVE PERCENT (BEAKER) (test 16 % nblx=513) MONOCYTES RELATIVE PERCENT (BEAKER) (test 11 % rnse=142) EOSINOPHILS RELATIVE PERCENT (BEAKER) (test 9 % mqbu=795) BASOPHILS RELATIVE PERCENT (BEAKER) (test 1 % ymqq=975) NEUTROPHILS ABSOLUTE COUNT (BEAKER) (test 5.07 K/ L 1.78-5.38 lqzu=190) LYMPHOCYTES ABSOLUTE COUNT (BEAKER) (test 1.31 K/ L 1.32-3.57 zfov=565) MONOCYTES ABSOLUTE COUNT (BEAKER) (test 0.92 K/ L 0.30-0.82 rarj=625) EOSINOPHILS ABSOLUTE COUNT (BEAKER) (test 0.70 K/ L 0.04-0.54 inqw=100) BASOPHILS ABSOLUTE COUNT (BEAKER) (test 0.07 K/ L 0.01-0.08 gntz=613) IMMATURE GRANULOCYTES-RELATIVE PERCENT (BEAKER) 0 % 0-1 (test mzrk=9271) [id number] 04:39:00 Test Item Value Reference Range Comments PHOSPHORUS (BEAKER) (test kpsy=616) 2.9 mg/dL 2.3-4.7 [id number] 04:39:00 Test Item Value Reference Range Comments MAGNESIUM (BEAKER) (test bzob=049) 1.9 mg/dL 1.6-2.6 BASIC METABOLIC [id number] 04:39:00 Test Item Value Reference Range Comments SODIUM (BEAKER) (test 139 meq/L 136-145 tmmz=897) POTASSIUM (BEAKER) (test 4.3 meq/L 3.5-5.1 nqkb=037) CHLORIDE (BEAKER) (test 100 meq/L 98-107 fdqn=454) CO2 (BEAKER) (test 30 meq/L 22-29 agqp=124) BLOOD UREA NITROGEN 29 mg/dL 7-21 (BEAKER) (test weez=155) CREATININE (BEAKER) (test 4.41 mg/dL 0.57-1.25 eong=964) GLUCOSE RANDOM (BEAKER) 115 mg/dL 70-105 (test tfvw=879) CALCIUM (BEAKER) (test 8.6 mg/dL 8.4-10.2 skiu=700) EGFR (BEAKER) (test 13 mL/min/1.73 sq m ESTIMATED GFR IS NOT eblg=8938) ACCURATE CREATININE CLEARANCE IN PREDICTING GLOMERULAR FILTRATION RATE. ESTIMATED GFR IS NOT APPLICABLE FOR DIALYSIS PATIENTS. POCT-GLUCOSE [id number] 20:32:00 Test Item Value Reference Range Comments POC-GLUCOSE METER (BEAKER) 177 mg/dL 70-110 TESTED AT [place] [id number] [facility] (test uqjg=9625) [place] [id number] POCT-GLUCOSE [id number] 18:07:00 Test Item Value Reference Range Comments POC-GLUCOSE METER (BEAKER) 141 mg/dL 70-110 TESTED AT [facility] [address] [facility] (test zhxm=9370) [facility] [address] RESPIRATORY PANEL [id number] 15:28:00 Test Item Value Reference Range Comments HUMAN METAPNEUMOVIRUS (BEAKER) (test Not detected Not detected, Equivocal duhs=6418) RHINOVIRUS (BEAKER) (test eajg=7957) Not detected Not detected, Equivocal INFLUENZA A (BEAKER) (test aqxz=8248) Not detected Not detected, Equivocal INFLUENZA A (NO SUBTYPE) (test Not detected, Equivocal nyyv=4354) INFLUENZA A SUBTYPE H1 (BEAKER) (test Not detected, Equivocal knpj=5029) INFLUENZA A SUBTYPE H3 (BEAKER) (test Not detected, Equivocal acuv=4367) INFLUENZA A SUBTYPE H1-2009 (BEAKER) Not detected, Equivocal (test gdhi=2828) INFLUENZA B (BEAKER) (test ozfk=2265) Not detected Not detected, Equivocal RESPIRATORY SYNCYTIAL VIRUS (BEAKER) Not detected Not detected, Equivocal (test lcnq=0544) PARAINFLUENZA VIRUS 1 (BEAKER) (test Not detected Not detected, Equivocal oecj=8499) PARAINFLUENZA VIRUS 2 (BEAKER) (test Not detected Not detected, Equivocal txtq=3616) PARAINFLUENZA VIRUS 3 (BEAKER) (test Not detected Not detected, Equivocal fwuv=2037) PARAINFLUENZA VIRUS 4 (BEAKER) (test Not detected Not detected, Equivocal zbss=5389) ADENOVIRUS (BEAKER) (test zzqb=4704) Not detected Not detected, Equivocal CORONAVIRUS 229E (BEAKER) (test Not detected Not detected, Equivocal nwlo=7521) CORONAVIRUS HKU1 (BEAKER) (test Not detected Not detected, Equivocal wblb=8019) CORONAVIRUS NL63 (BEAKER) (test Not detected Not detected, Equivocal ihpf=8671) CORONAVIRUS OC43 (BEAKER) (test Not detected Not detected, Equivocal viaj=4512) BORDETELLA PERTUSSIS (BEAKER) (test Not detected Not detected, Equivocal ltxh=4892) CHLAMYDOPHILA PNEUMONIAE (BEAKER) (test Not detected Not detected, Equivocal iect=0937) MYCOPLASMA PNEUMONIAE (BEAKER) (test Not detected Not detected, Equivocal crgo=9321) Other viruses and bacteria not targeted by this PCR panel cannot be excluded; therefore clinical correlation and follow up of serology, culture results, and other molecular studies is required. The results are not intended to be used as the sole means for clinical diagnosis or patient management decisions. This sample was tested at the [facility] using the [employer] Respiratory Panel. It is FDA cleared and has been verified and approved by the [facility] for clinical use on nasal swab specimens. It is not FDA-cleared for use on bronchial wash/lavage samples. However, for this sample type, validation was performed and test characteristics were determined and approved, by [facility] for clinical use under the Clinical Laboratory Improvement Amendments (CLIA) of 1988 requirements. Therefore, FDA clearance isnot required. This laboratory is CLIA-certified and [employer] ([employer])-accredited to perform high complexity testing.POCT-GLUCOSE [id number] 12:53:00 Test Item Value Reference Range Comments POC-GLUCOSE METER (BEAKER) 147 mg/dL 70-110 TESTED AT [facility] [address] [place] [address] (test bolm=4809) [place] [address] POCT-GLUCOSE [id number] 07:57:00 Test Item Value Reference Range Comments POC-GLUCOSE METER (BEAKER) 81 mg/dL 70-110 TESTED AT [address] (test lwnw=6855) [place] [id number] BASIC METABOLIC [id number] 04:37:00 Test Item Value Reference Range Comments SODIUM (BEAKER) (test 140 meq/L 136-145 jnwg=782) POTASSIUM (BEAKER) (test 3.6 meq/L 3.5-5.1 fyhh=365) CHLORIDE (BEAKER) (test 102 meq/L 98-107 iqzr=377) CO2 (BEAKER) (test 32 meq/L 22-29 lxdn=985) BLOOD UREA NITROGEN 19 mg/dL 7-21 (BEAKER) (test gwwm=430) CREATININE (BEAKER) (test 3.20 mg/dL 0.57-1.25 ljzr=283) GLUCOSE RANDOM (BEAKER) 77 mg/dL 70-105 (test qrng=467) CALCIUM (BEAKER) (test 8.3 mg/dL 8.4-10.2 beig=310) EGFR (BEAKER) (test 19 mL/min/1.73 sq m ESTIMATED GFR IS NOT eyyb=0608) ACCURATE CREATININE CLEARANCE IN PREDICTING GLOMERULAR FILTRATION RATE. ESTIMATED GFR IS NOT APPLICABLE FOR DIALYSIS PATIENTS. [id number] 04:34:00 Test Item Value Reference Range Comments PHOSPHORUS (BEAKER) (test vale=599) 1.6 mg/dL 2.3-4.7 [id number] 04:34:00 Test Item Value Reference Range Comments MAGNESIUM (BEAKER) (test jiba=846) 1.8 mg/dL 1.6-2.6 CBC W/PLT COUNT & AUTO [id number] 04:31:00 Test Item Value Reference Range Comments WHITE BLOOD CELL COUNT (BEAKER) (test pnaa=520) 8.4 K/ L 3.5-10.5 RED BLOOD CELL COUNT (BEAKER) (test xmou=834) 2.20 M/ L 4.63-6.08 HEMOGLOBIN (BEAKER) (test sgpk=530) 7.3 GM/DL 13.7-17.5 HEMATOCRIT (BEAKER) (test navu=052) 23.1 % 40.1-51.0 MEAN CORPUSCULAR VOLUME (BEAKER) (test gmjk=886) 105.0 fL 79.0-92.2 MEAN CORPUSCULAR HEMOGLOBIN (BEAKER) (test 33.2 pg 25.7-32.2 pwpq=182) MEAN CORPUSCULAR HEMOGLOBIN CONC (BEAKER) (test 31.6 GM/DL 32.3-36.5 oxbu=165) RED CELL DISTRIBUTION WIDTH (BEAKER) (test 14.8 % 11.6-14.4 gtgh=199) PLATELET COUNT (BEAKER) (test kkjs=722) 184 K/CU MM 150-450 MEAN PLATELET VOLUME (BEAKER) (test vydz=284) 10.5 fL 9.4-12.4 NUCLEATED RED BLOOD CELLS (BEAKER) (test 0 /100 WBC 0-0 uxwk=859) NEUTROPHILS RELATIVE PERCENT (BEAKER) (test 62 % aqxk=634) LYMPHOCYTES RELATIVE PERCENT (BEAKER) (test 20 % bzaa=166) MONOCYTES RELATIVE PERCENT (BEAKER) (test 12 % qyrb=332) EOSINOPHILS RELATIVE PERCENT (BEAKER) (test 6 % ntqv=216) BASOPHILS RELATIVE PERCENT (BEAKER) (test 1 % qexe=127) NEUTROPHILS ABSOLUTE COUNT (BEAKER) (test 5.18 K/ L 1.78-5.38 iytr=931) LYMPHOCYTES ABSOLUTE COUNT (BEAKER) (test 1.66 K/ L 1.32-3.57 pzjs=489) MONOCYTES ABSOLUTE COUNT (BEAKER) (test 0.96 K/ L 0.30-0.82 djzd=401) EOSINOPHILS ABSOLUTE COUNT (BEAKER) (test 0.51 K/ L 0.04-0.54 omax=320) BASOPHILS ABSOLUTE COUNT (BEAKER) (test 0.04 K/ L 0.01-0.08 rhhl=848) IMMATURE GRANULOCYTES-RELATIVE PERCENT (BEAKER) 0 % 0-1 (test ocgo=6150) POCT-GLUCOSE [id number] 22:13:00 Test Item Value Reference Range Comments POC-GLUCOSE METER (BEAKER) 197 mg/dL 70-110 TESTED AT [address] (test kngy=6968) [facility] [id number] POCT-GLUCOSE [id number] 17:38:00 Test Item Value Reference Range Comments POC-GLUCOSE METER (BEAKER) 229 mg/dL 70-110 TESTED AT [address] (test gnst=3192) [place] [id number] POCT-GLUCOSE [id number] 08:11:00 Test Item Value Reference Range Comments POC-GLUCOSE METER (BEAKER) 148 mg/dL 70-110 TESTED AT [address] (test epfu=3171) [facility] [id number] [id number] 07:28:00 Test Item Value Reference Range Comments FERRITIN (BEAKER) (test kgzp=525) 414 ng/mL 5-275 IRON, TIBC, % SAT. (WITHOUT FERRITIN)2018-09-02 07:03:00 Test Item Value Reference Range Comments IRON (BEAKER) (test rpju=506) 55.0 ug/dL 40.0-160.0 TOTAL IRON BINDING CAPACITY (BEAKER) (test 148 ug/dL 250-450 vrap=267) IRON % SATURATION (2) (BEAKER) (test tygz=8246) 37 % 20-55 BASIC METABOLIC [id number] 04:17:00 Test Item Value Reference Range Comments SODIUM (BEAKER) (test 135 meq/L 136-145 wjnl=949) POTASSIUM (BEAKER) (test 4.4 meq/L 3.5-5.1 taim=544) CHLORIDE (BEAKER) (test 101 meq/L 98-107 qprp=707) CO2 (BEAKER) (test 26 meq/L 22-29 lusq=819) BLOOD UREA NITROGEN 29 mg/dL 7-21 (BEAKER) (test idvc=829) CREATININE (BEAKER) (test 5.20 mg/dL 0.57-1.25 rgze=076) GLUCOSE RANDOM (BEAKER) 119 mg/dL 70-105 (test ygpl=190) CALCIUM (BEAKER) (test 8.4 mg/dL 8.4-10.2 takd=936) EGFR (BEAKER) (test 11 mL/min/1.73 sq m ESTIMATED GFR IS NOT uiyg=5497) ACCURATE CREATININE CLEARANCE IN PREDICTING GLOMERULAR FILTRATION RATE. ESTIMATED GFR IS NOT APPLICABLE FOR DIALYSIS PATIENTS. CBC W/PLT COUNT & AUTO [id number] 04:13:00 Test Item Value Reference Range Comments WHITE BLOOD CELL COUNT (BEAKER) (test bhij=982) 8.1 K/ L 3.5-10.5 RED BLOOD CELL COUNT (BEAKER) (test ycut=604) 2.19 M/ L 4.63-6.08 HEMOGLOBIN (BEAKER) (test ecpp=771) 7.3 GM/DL 13.7-17.5 HEMATOCRIT (BEAKER) (test qbod=443) 23.1 % 40.1-51.0 MEAN CORPUSCULAR VOLUME (BEAKER) (test awyi=480) 105.5 fL 79.0-92.2 MEAN CORPUSCULAR HEMOGLOBIN (BEAKER) (test 33.3 pg 25.7-32.2 ekhd=496) MEAN CORPUSCULAR HEMOGLOBIN CONC (BEAKER) (test 31.6 GM/DL 32.3-36.5 mbog=489) RED CELL DISTRIBUTION WIDTH (BEAKER) (test 14.7 % 11.6-14.4 nmro=963) PLATELET COUNT (BEAKER) (test jtpk=496) 168 K/CU MM 150-450 MEAN PLATELET VOLUME (BEAKER) (test skmb=702) 11.4 fL 9.4-12.4 NUCLEATED RED BLOOD CELLS (BEAKER) (test 0 /100 WBC 0-0 fhcq=839) NEUTROPHILS RELATIVE PERCENT (BEAKER) (test 63 % wzyt=284) LYMPHOCYTES RELATIVE PERCENT (BEAKER) (test 17 % vohl=990) MONOCYTES RELATIVE PERCENT (BEAKER) (test 9 % xuji=987) EOSINOPHILS RELATIVE PERCENT (BEAKER) (test 10 % apaj=028) BASOPHILS RELATIVE PERCENT (BEAKER) (test 0 % fsuh=236) NEUTROPHILS ABSOLUTE COUNT (BEAKER) (test 5.13 K/ L 1.78-5.38 hups=670) LYMPHOCYTES ABSOLUTE COUNT (BEAKER) (test 1.40 K/ L 1.32-3.57 gjdc=909) MONOCYTES ABSOLUTE COUNT (BEAKER) (test 0.72 K/ L 0.30-0.82 yiyb=832) EOSINOPHILS ABSOLUTE COUNT (BEAKER) (test 0.81 K/ L 0.04-0.54 gjye=154) BASOPHILS ABSOLUTE COUNT (BEAKER) (test 0.03 K/ L 0.01-0.08 hwnp=967) IMMATURE GRANULOCYTES-RELATIVE PERCENT (BEAKER) 0 % 0-1 (test oqfy=1317) [id number] 04:11:00 Test Item Value Reference Range Comments PHOSPHORUS (BEAKER) (test cmhh=703) 3.5 mg/dL 2.3-4.7 [id number] 04:11:00 Test Item Value Reference Range Comments MAGNESIUM (BEAKER) (test huzp=952) 2.2 mg/dL 1.6-2.6 POCT-GLUCOSE [id number] 21:35:00 Test Item Value Reference Range Comments POC-GLUCOSE METER (BEAKER) 165 mg/dL 70-110 TESTED AT [address] (test xkcw=7417) [place] [address] POCT-GLUCOSE [id number] 17:33:00 Test Item Value Reference Range Comments POC-GLUCOSE METER (BEAKER) 200 mg/dL 70-110 TESTED AT [address] (test nxae=3736) [place] [address] POCT-GLUCOSE [id number] 13:15:00 Test Item Value Reference Range Comments POC-GLUCOSE METER (BEAKER) 188 mg/dL 70-110 TESTED AT [address] (test vhjw=6830) [place] [address] POCT-GLUCOSE [id number] 09:59:00 Test Item Value Reference Range Comments POC-GLUCOSE METER (BEAKER) 214 mg/dL 70-110 TESTED AT [address] (test gqsf=6820) [place] [address] CBC W/PLT COUNT & AUTO [id number] 07:15:00 Test Item Value Reference Range Comments WHITE BLOOD CELL COUNT (BEAKER) (test hape=211) 7.6 K/ L 3.5-10.5 RED BLOOD CELL COUNT (BEAKER) (test hkac=990) 2.26 M/ L 4.63-6.08 HEMOGLOBIN (BEAKER) (test hvug=882) 7.6 GM/DL 13.7-17.5 HEMATOCRIT (BEAKER) (test yqpe=126) 24.1 % 40.1-51.0 MEAN CORPUSCULAR VOLUME (BEAKER) (test urkk=525) 106.6 fL 79.0-92.2 MEAN CORPUSCULAR HEMOGLOBIN (BEAKER) (test 33.6 pg 25.7-32.2 dqlg=593) MEAN CORPUSCULAR HEMOGLOBIN CONC (BEAKER) (test 31.5 GM/DL 32.3-36.5 rvff=275) RED CELL DISTRIBUTION WIDTH (BEAKER) (test 14.6 % 11.6-14.4 bnkl=838) PLATELET COUNT (BEAKER) (test vijs=663) 155 K/CU MM 150-450 MEAN PLATELET VOLUME (BEAKER) (test vcmf=550) 11.7 fL 9.4-12.4 NUCLEATED RED BLOOD CELLS (BEAKER) (test 0 /100 WBC 0-0 suot=837) NEUTROPHILS RELATIVE PERCENT (BEAKER) (test 64 % dfzd=200) LYMPHOCYTES RELATIVE PERCENT (BEAKER) (test 14 % znrm=706) MONOCYTES RELATIVE PERCENT (BEAKER) (test 11 % emrd=806) EOSINOPHILS RELATIVE PERCENT (BEAKER) (test 10 % sppa=192) BASOPHILS RELATIVE PERCENT (BEAKER) (test 1 % drsc=001) NEUTROPHILS ABSOLUTE COUNT (BEAKER) (test 4.88 K/ L 1.78-5.38 hlac=374) LYMPHOCYTES ABSOLUTE COUNT (BEAKER) (test 1.04 K/ L 1.32-3.57 ytke=737) MONOCYTES ABSOLUTE COUNT (BEAKER) (test 0.82 K/ L 0.30-0.82 qdfh=817) EOSINOPHILS ABSOLUTE COUNT (BEAKER) (test 0.77 K/ L 0.04-0.54 kzsm=627) BASOPHILS ABSOLUTE COUNT (BEAKER) (test 0.04 K/ L 0.01-0.08 xrss=650) IMMATURE GRANULOCYTES-RELATIVE PERCENT (BEAKER) 0 % 0-1 (test neve=3983) BASIC METABOLIC [id number] 06:48:00 Test Item Value Reference Range Comments SODIUM (BEAKER) (test 133 meq/L 136-145 asuz=910) POTASSIUM (BEAKER) (test 3.4 meq/L 3.5-5.1 ljpl=275) CHLORIDE (BEAKER) (test 99 meq/L 98-107 zzko=018) CO2 (BEAKER) (test 27 meq/L 22-29 ztud=687) BLOOD UREA NITROGEN 20 mg/dL 7-21 (BEAKER) (test fkkj=086) CREATININE (BEAKER) (test 4.24 mg/dL 0.57-1.25 jhhn=891) GLUCOSE RANDOM (BEAKER) 165 mg/dL 70-105 (test vuhr=499) CALCIUM (BEAKER) (test 8.4 mg/dL 8.4-10.2 ngsx=648) EGFR (BEAKER) (test 14 mL/min/1.73 sq m ESTIMATED GFR IS NOT spql=5597) ACCURATE CREATININE CLEARANCE IN PREDICTING GLOMERULAR FILTRATION RATE. ESTIMATED GFR IS NOT APPLICABLE FOR DIALYSIS PATIENTS. [id number] 06:43:00 Test Item Value Reference Range Comments PHOSPHORUS (BEAKER) (test xnzt=463) 1.7 mg/dL 2.3-4.7 [id number] 06:43:00 Test Item Value Reference Range Comments MAGNESIUM (BEAKER) (test azvz=693) 1.9 mg/dL 1.6-2.6 POCT-GLUCOSE [id number] 06:32:00 Test Item Value Reference Range Comments POC-GLUCOSE METER (BEAKER) 201 mg/dL 70-110 TESTED AT [address] (test unaz=5242) [facility] [address] POCT-GLUCOSE [id number] 17:39:00 Test Item Value Reference Range Comments POC-GLUCOSE METER (BEAKER) 206 mg/dL 70-110 TESTED AT [address] (test trom=4782) [facility] [address] POCT-GLUCOSE [id number] 12:46:00 Test Item Value Reference Range Comments POC-GLUCOSE METER (BEAKER) 191 mg/dL 70-110 TESTED AT [address] (test eivc=6586) [place] [id number] POCT-GLUCOSE [id number] 09:46:00 Test Item Value Reference Range Comments POC-GLUCOSE METER (BEAKER) 105 mg/dL 70-110 TESTED AT [address] (test waqn=5852) [place] [id number] POCT-GLUCOSE [id number] 08:34:00 Test Item Value Reference Range Comments POC-GLUCOSE METER (BEAKER) 145 mg/dL 70-110 TESTED AT [facility] [address] (test tcam=1987) [facility] [address] TROPONIN [id number] 04:58:00 Test Item Value Reference Range Comments TROPONIN I (BEAKER) (test dhmd=030) 0.07 ng/mL 0.00-0.03 Troponin I (TnI) levels [...] acute neurological disease, and persistent tachyarrhythmia.BASIC METABOLIC [id number] 04:54:00 Test Item Value Reference Range Comments SODIUM (BEAKER) (test 135 meq/L 136-145 awim=154) POTASSIUM (BEAKER) (test 3.9 meq/L 3.5-5.1 ibag=565) CHLORIDE (BEAKER) (test 100 meq/L 98-107 qqhr=066) CO2 (BEAKER) (test 27 meq/L 22-29 wcuf=711) BLOOD UREA NITROGEN 12 mg/dL 7-21 (BEAKER) (test chlg=072) CREATININE (BEAKER) (test 2.68 mg/dL 0.57-1.25 bvpc=442) GLUCOSE RANDOM (BEAKER) 132 mg/dL 70-105 (test ruho=233) CALCIUM (BEAKER) (test 8.6 mg/dL 8.4-10.2 kbap=960) EGFR (BEAKER) (test 23 mL/min/1.73 sq m ESTIMATED GFR IS NOT ewjn=7432) ACCURATE CREATININE CLEARANCE IN PREDICTING GLOMERULAR FILTRATION RATE. ESTIMATED GFR IS NOT APPLICABLE FOR DIALYSIS PATIENTS. [id number] 04:50:00 Test Item Value Reference Range Comments PHOSPHORUS (BEAKER) (test fnbm=379) 2.0 mg/dL 2.3-4.7 [id number] 04:50:00 Test Item Value Reference Range Comments MAGNESIUM (BEAKER) (test zyjo=464) 1.8 mg/dL 1.6-2.6 CBC W/PLT COUNT & AUTO [id number] 04:27:00 Test Item Value Reference Range Comments WHITE BLOOD CELL COUNT (BEAKER) (test mjnu=488) 7.8 K/ L 3.5-10.5 RED BLOOD CELL COUNT (BEAKER) (test xpzd=949) 2.63 M/ L 4.63-6.08 HEMOGLOBIN (BEAKER) (test swbj=018) 8.6 GM/DL 13.7-17.5 HEMATOCRIT (BEAKER) (test fvxi=864) 27.3 % 40.1-51.0 MEAN CORPUSCULAR VOLUME (BEAKER) (test kifq=123) 103.8 fL 79.0-92.2 MEAN CORPUSCULAR HEMOGLOBIN (BEAKER) (test 32.7 pg 25.7-32.2 wujf=793) MEAN CORPUSCULAR HEMOGLOBIN CONC (BEAKER) (test 31.5 GM/DL 32.3-36.5 foxw=135) RED CELL DISTRIBUTION WIDTH (BEAKER) (test 14.3 % 11.6-14.4 gejc=745) PLATELET COUNT (BEAKER) (test fzhg=023) 156 K/CU MM 150-450 MEAN PLATELET VOLUME (BEAKER) (test cuns=484) 11.0 fL 9.4-12.4 NUCLEATED RED BLOOD CELLS (BEAKER) (test 0 /100 WBC 0-0 cakj=530) NEUTROPHILS RELATIVE PERCENT (BEAKER) (test 77 % cwhs=861) LYMPHOCYTES RELATIVE PERCENT (BEAKER) (test 8 % eint=799) MONOCYTES RELATIVE PERCENT (BEAKER) (test 9 % wjac=054) EOSINOPHILS RELATIVE PERCENT (BEAKER) (test 5 % gmpr=581) BASOPHILS RELATIVE PERCENT (BEAKER) (test 1 % drmn=610) NEUTROPHILS ABSOLUTE COUNT (BEAKER) (test 5.98 K/ L 1.78-5.38 ywgu=228) LYMPHOCYTES ABSOLUTE COUNT (BEAKER) (test 0.62 K/ L 1.32-3.57 pmrw=912) MONOCYTES ABSOLUTE COUNT (BEAKER) (test 0.72 K/ L 0.30-0.82 gmmy=664) EOSINOPHILS ABSOLUTE COUNT (BEAKER) (test 0.35 K/ L 0.04-0.54 xmit=422) BASOPHILS ABSOLUTE COUNT (BEAKER) (test 0.05 K/ L 0.01-0.08 fppo=180) IMMATURE GRANULOCYTES-RELATIVE PERCENT (AKER) 1 % 0-1 (test xckq=1720) TROPONIN [id number] 23:54:00 Test Item Value Reference Range Comments TROPONIN I (BEAKER) (test voic=490) 0.06 ng/mL 0.00-0.03 Troponin I (TnI) levels [...] acidosis, acute neurological disease, and persistent tachyarrhythmia.POCT-GLUCOSE [id number] 21:10:00 Test Item Value Reference Range Comments POC-GLUCOSE METER (BEAKER) 118 mg/dL 70-110 TESTED AT [address] (test xzpq=0193) [place] [address] TROPONIN [id number] 19:00:00 Test Item Value Reference Range Comments TROPONIN I (BEAKER) (test vjfq=512) 0.05 ng/mL 0.00-0.03 Troponin I (TnI) levels [...] acidosis, acute neurological disease, and persistent tachyarrhythmia.POCT-GLUCOSE [id number] 18:30:00 Test Item Value Reference Range Comments POC-GLUCOSE METER (BEAKER) 134 mg/dL 70-110 TESTED AT [address] (test vrdy=7538) [place] [address] TROPONIN [id number] 17:24:00 Test Item Value Reference Range Comments TROPONIN I (BEAKER) (test ukoi=691) 0.06 ng/mL 0.00-0.03 Troponin I (TnI) levels [...] acute neurological disease, and persistent tachyarrhythmia.BASIC METABOLIC [id number] 17:17:00 Test Item Value Reference Range Comments SODIUM (BEAKER) (test 132 meq/L 136-145 hsex=888) POTASSIUM (BEAKER) (test 4.3 meq/L 3.5-5.1 iedp=861) CHLORIDE (BEAKER) (test 98 meq/L 98-107 cphm=888) CO2 (BEAKER) (test 24 meq/L 22-29 kiva=508) BLOOD UREA NITROGEN 31 mg/dL 7-21 (BEAKER) (test cvvm=508) CREATININE (BEAKER) (test 5.30 mg/dL 0.57-1.25 sxlj=779) GLUCOSE RANDOM (BEAKER) 142 mg/dL 70-105 (test szlw=035) CALCIUM (BEAKER) (test 9.1 mg/dL 8.4-10.2 fqjf=215) EGFR (BEAKER) (test 11 mL/min/1.73 sq m ESTIMATED GFR IS NOT ueuw=5768) ACCURATE CREATININE CLEARANCE IN PREDICTING GLOMERULAR FILTRATION RATE. ESTIMATED GFR IS NOT APPLICABLE FOR DIALYSIS PATIENTS. [id number] 17:16:00 Test Item Value Reference Range Comments PHOSPHORUS (BEAKER) (test zigv=886) 2.5 mg/dL 2.3-4.7 [id number] 17:16:00 Test Item Value Reference Range Comments MAGNESIUM (BEAKER) (test pqsm=702) 1.8 mg/dL 1.6-2.6 BASIC METABOLIC [id number] 13:14:00 Test Item Value Reference Range Comments SODIUM (BEAKER) (test 132 meq/L 136-145 ocvz=861) POTASSIUM (BEAKER) (test 4.2 meq/L 3.5-5.1 yvqr=975) CHLORIDE (BEAKER) (test 99 meq/L 98-107 knvw=467) CO2 (BEAKER) (test 26 meq/L 22-29 pljl=865) BLOOD UREA NITROGEN 29 mg/dL 7-21 (BEAKER) (test llam=309) CREATININE (BEAKER) (test 4.83 mg/dL 0.57-1.25 vaed=196) GLUCOSE RANDOM (BEAKER) 124 mg/dL 70-105 (test uogc=201) CALCIUM (BEAKER) (test 8.7 mg/dL 8.4-10.2 wnqr=069) EGFR (BEAKER) (test 12 mL/min/1.73 sq m ESTIMATED GFR IS NOT ftbz=6012) ACCURATE CREATININE CLEARANCE IN PREDICTING GLOMERULAR FILTRATION RATE. ESTIMATED GFR IS NOT APPLICABLE FOR DIALYSIS PATIENTS. CBC W/PLT COUNT & AUTO [id number] 12:49:00 Test Item Value Reference Range Comments WHITE BLOOD CELL COUNT (BEAKER) (test zbpf=873) 10.7 K/ L 3.5-10.5 RED BLOOD CELL COUNT (BEAKER) (test gpat=987) 2.74 M/ L 4.63-6.08 HEMOGLOBIN (BEAKER) (test brpd=276) 9.3 GM/DL 13.7-17.5 HEMATOCRIT (BEAKER) (test dwtz=255) 28.4 % 40.1-51.0 MEAN CORPUSCULAR VOLUME (BEAKER) (test ndkt=756) 103.6 fL 79.0-92.2 MEAN CORPUSCULAR HEMOGLOBIN (BEAKER) (test 33.9 pg 25.7-32.2 aevc=525) MEAN CORPUSCULAR HEMOGLOBIN CONC (BEAKER) (test 32.7 GM/DL 32.3-36.5 wlni=462) RED CELL DISTRIBUTION WIDTH (BEAKER) (test 14.0 % 11.6-14.4 odgy=441) PLATELET COUNT (BEAKER) (test fugo=727) 163 K/CU MM 150-450 MEAN PLATELET VOLUME (BEAKER) (test rfci=738) 10.9 fL 9.4-12.4 NUCLEATED RED BLOOD CELLS (BEAKER) (test 0 /100 WBC 0-0 xqsi=180) NEUTROPHILS RELATIVE PERCENT (BEAKER) (test 81 % ggcb=426) LYMPHOCYTES RELATIVE PERCENT (BEAKER) (test 9 % gbby=254) MONOCYTES RELATIVE PERCENT (BEAKER) (test 1 % jhdy=020) EOSINOPHILS RELATIVE PERCENT (BEAKER) (test 5 % ihun=635) BASOPHILS RELATIVE PERCENT (BEAKER) (test 0 % lboc=443) NEUTROPHILS ABSOLUTE COUNT (BEAKER) (test 8.71 K/ L 1.78-5.38 gvmv=924) LYMPHOCYTES ABSOLUTE COUNT (BEAKER) (test 0.94 K/ L 1.32-3.57 oxkf=994) MONOCYTES ABSOLUTE COUNT (BEAKER) (test 0.13 K/ L 0.30-0.82 dbbj=723) EOSINOPHILS ABSOLUTE COUNT (BEAKER) (test 0.53 K/ L 0.04-0.54 lxkn=034) BASOPHILS ABSOLUTE COUNT (BEAKER) (test 0.04 K/ L 0.01-0.08 vpyw=352) IMMATURE GRANULOCYTES-RELATIVE PERCENT (BEAKER) 4 % 0-1 (test wtbl=8805) BLOOD GAS, [id number] 11:37:00 Test Item Value Reference Range Comments PH ARTERIAL (BEAKER) (test qrmz=448) 7.43 7.35-7.45 PCO2 ARTERIAL (BEAKER) (test bjvu=344) 41 mmHg 35-45 PO2 ARTERIAL (BEAKER) (test hdzv=048) 297 mmHg 80-90 O2 SATURATION ARTERIAL (BEAKER) (test flgl=264) 99.7 % 96.0-97.0 HCO3 ARTERIAL (BEAKER) (test ytgg=166) 27 mmol/L 21-29 BASE EXCESS ARTERIAL (BEAKER) (test ydtk=518) 2.0 mmol/L -2.0-3.0 PATIENT TEMPERATURE (BEAKER) (test pcvx=8419) 35.1 C FIO2 (BEAKER) (test hlqu=7440) 100.0 % GLUCOSE-STAT [id number] 11:37:00 Test Item Value Reference Range Comments GLUCOSE RANDOM (BEAKER) (test fpdb=157) 112 mg/dL 70-110 SODIUM NA-STAT [id number] 11:37:00 Test Item Value Reference Range Comments SODIUM (BEAKER) (test drfg=601) 130 meq/L 135-148 HGB/HCT (H&H) - STAT [id number] 11:37:00 Test Item Value Reference Range Comments HEMOGLOBIN (BEAKER) (test ppwp=357) 9.9 g/dL 13.0-16.8 HEMATOCRIT (BEAKER) (test vywj=044) 29.0 % 40.0-50.0 [id number] 11:35:00 Test Item Value Reference Range Comments ACTIVATED CLOTTING TIME 142 sec TESTED AT [facility] [address] (BEAKER) (test njyb=697) [place] [address] POTASSIUM-STAT [id number] 11:35:00 Test Item Value Reference Range Comments POTASSIUM (BEAKER) (test vweq=866) 4.0 meq/L 3.6-5.5 [id number] 11:35:00 Test Item Value Reference Range Comments ACTIVATED CLOTTING TIME 224 sec TESTED AT [place] [address] [address] (BEAKER) (test selp=289) [place] [address] [id number] 11:35:00 Test Item Value Reference Range Comments ACTIVATED CLOTTING TIME 241 sec TESTED AT [place] [id number] [address] (BEAKER) (test kbxr=592) [place] [address] POCT-GLUCOSE [id number] 06:01:00 Test Item Value Reference Range Comments POC-GLUCOSE METER (BEAKER) 119 mg/dL 70-110 TESTED AT [place] [address] [address] (test ptiu=0177) [place] [address] BASIC METABOLIC [id number] 03:31:00 Test Item Value Reference Range Comments SODIUM (BEAKER) (test 133 meq/L 136-145 viyj=290) POTASSIUM (BEAKER) (test 4.2 meq/L 3.5-5.1 ywhl=462) CHLORIDE (BEAKER) (test 96 meq/L 98-107 biil=925) CO2 (BEAKER) (test 29 meq/L 22-29 ddpx=728) BLOOD UREA NITROGEN 28 mg/dL 7-21 (BEAKER) (test zwqh=217) CREATININE (BEAKER) (test 4.83 mg/dL 0.57-1.25 intr=460) GLUCOSE RANDOM (BEAKER) 128 mg/dL 70-105 (test klyh=901) CALCIUM (BEAKER) (test 8.8 mg/dL 8.4-10.2 uvgy=805) EGFR (BEAKER) (test 12 mL/min/1.73 sq m ESTIMATED GFR IS NOT gmzu=4452) ACCURATE CREATININE CLEARANCE IN PREDICTING GLOMERULAR FILTRATION RATE. ESTIMATED GFR IS NOT APPLICABLE FOR DIALYSIS PATIENTS. BASIC METABOLIC [id number] 03:31:00 Test Item Value Reference Range Comments SODIUM (BEAKER) (test 133 meq/L 136-145 aphr=491) POTASSIUM (BEAKER) (test 4.2 meq/L 3.5-5.1 lwoz=330) CHLORIDE (BEAKER) (test 96 meq/L 98-107 ntko=713) CO2 (BEAKER) (test 29 meq/L 22-29 rmmy=370) BLOOD UREA NITROGEN 28 mg/dL 7-21 (BEAKER) (test ekba=498) CREATININE (BEAKER) (test 4.84 mg/dL 0.57-1.25 uavw=470) GLUCOSE RANDOM (BEAKER) 128 mg/dL 70-105 (test rfmi=014) CALCIUM (BEAKER) (test 8.9 mg/dL 8.4-10.2 yibf=508) EGFR (BEAKER) (test 12 mL/min/1.73 sq m ESTIMATED GFR IS NOT heet=0086) ACCURATE CREATININE CLEARANCE IN PREDICTING GLOMERULAR FILTRATION RATE. ESTIMATED GFR IS NOT APPLICABLE FOR DIALYSIS PATIENTS. [id number] 03:25:00 Test Item Value Reference Range Comments PHOSPHORUS (BEAKER) (test dwgh=022) 2.4 mg/dL 2.3-4.7 [id number] 03:25:00 Test Item Value Reference Range Comments MAGNESIUM (BEAKER) (test nrvb=544) 1.9 mg/dL 1.6-2.6 CALCIUM, [id number] 03:22:00 Test Item Value Reference Range Comments CALCIUM IONIZED (BEAKER) (test iwwr=163) 1.07 mmol/L 1.12-1.27 PH, BLOOD (BEAKER) (test rhyf=7000) 7.43 PROTHROMBIN [id number] 03:22:00 Test Item Value Reference Range Comments PROTIME (BEAKER) (test dcgt=538) 14.9 seconds 11.7-14.7 INR (BEAKER) (test pmme=960) 1.2 <=5.9 RECOMMENDED COUMADIN/WARFARIN INR THERAPY RANGESSTANDARD DOSE: 2.0 - 3.0 Includes: PROPHYLAXIS forvenous thrombosis, systemic embolization; TREATMENT for venous thrombosis and/or pulmonary embolus.HIGH RISK: Target INR is 2.5-3.5 for patients with mechanical heart valves.CBC W/PLT COUNT & AUTO [id number] 03:07:00 Test Item Value Reference Range Comments WHITE BLOOD CELL COUNT (BEAKER) (test ybem=721) 8.2 K/ L 3.5-10.5 RED BLOOD CELL COUNT (BEAKER) (test iqsc=027) 2.65 M/ L 4.63-6.08 HEMOGLOBIN (BEAKER) (test dusb=025) 8.8 GM/DL 13.7-17.5 HEMATOCRIT (BEAKER) (test kyzw=018) 27.2 % 40.1-51.0 MEAN CORPUSCULAR VOLUME (BEAKER) (test iywk=276) 102.6 fL 79.0-92.2 MEAN CORPUSCULAR HEMOGLOBIN (BEAKER) (test 33.2 pg 25.7-32.2 cfof=637) MEAN CORPUSCULAR HEMOGLOBIN CONC (BEAKER) (test 32.4 GM/DL 32.3-36.5 hkai=555) RED CELL DISTRIBUTION WIDTH (BEAKER) (test 13.6 % 11.6-14.4 ifym=799) PLATELET COUNT (BEAKER) (test onpo=218) 173 K/CU MM 150-450 MEAN PLATELET VOLUME (BEAKER) (test rzpr=362) 11.1 fL 9.4-12.4 NUCLEATED RED BLOOD CELLS (BEAKER) (test 0 /100 WBC 0-0 ajwe=499) NEUTROPHILS RELATIVE PERCENT (BEAKER) (test 68 % fail=412) LYMPHOCYTES RELATIVE PERCENT (BEAKER) (test 15 % cwbb=062) MONOCYTES RELATIVE PERCENT (BEAKER) (test 9 % qvel=210) EOSINOPHILS RELATIVE PERCENT (BEAKER) (test 7 % hfwn=244) BASOPHILS RELATIVE PERCENT (BEAKER) (test 1 % fibn=614) NEUTROPHILS ABSOLUTE COUNT (BEAKER) (test 5.57 K/ L 1.78-5.38 ourj=263) LYMPHOCYTES ABSOLUTE COUNT (BEAKER) (test 1.24 K/ L 1.32-3.57 ktoo=048) MONOCYTES ABSOLUTE COUNT (BEAKER) (test 0.70 K/ L 0.30-0.82 vgjk=219) EOSINOPHILS ABSOLUTE COUNT (BEAKER) (test 0.61 K/ L 0.04-0.54 lsha=499) BASOPHILS ABSOLUTE COUNT (BEAKER) (test 0.05 K/ L 0.01-0.08 jjhd=707) IMMATURE GRANULOCYTES-RELATIVE PERCENT (BEAKER) 1 % 0-1 (test aevn=4116) CBC W/PLT COUNT & AUTO [id number] 03:05:00 Test Item Value Reference Range Comments WHITE BLOOD CELL COUNT (BEAKER) (test ecra=603) 8.3 K/ L 3.5-10.5 RED BLOOD CELL COUNT (BEAKER) (test fbyk=780) 2.71 M/ L 4.63-6.08 HEMOGLOBIN (BEAKER) (test hgkg=522) 8.9 GM/DL 13.7-17.5 HEMATOCRIT (BEAKER) (test dxdg=292) 27.9 % 40.1-51.0 MEAN CORPUSCULAR VOLUME (BEAKER) (test axgj=547) 103.0 fL 79.0-92.2 MEAN CORPUSCULAR HEMOGLOBIN (BEAKER) (test 32.8 pg 25.7-32.2 qajx=012) MEAN CORPUSCULAR HEMOGLOBIN CONC (BEAKER) (test 31.9 GM/DL 32.3-36.5 szjg=551) RED CELL DISTRIBUTION WIDTH (BEAKER) (test 13.9 % 11.6-14.4 uytw=205) PLATELET COUNT (BEAKER) (test zmyp=960) 170 K/CU MM 150-450 MEAN PLATELET VOLUME (BEAKER) (test xdto=478) 11.1 fL 9.4-12.4 NUCLEATED RED BLOOD CELLS (BEAKER) (test 0 /100 WBC 0-0 ptsm=653) NEUTROPHILS RELATIVE PERCENT (BEAKER) (test 67 % bofx=660) LYMPHOCYTES RELATIVE PERCENT (BEAKER) (test 15 % rqad=049) MONOCYTES RELATIVE PERCENT (BEAKER) (test 9 % cnsn=775) EOSINOPHILS RELATIVE PERCENT (BEAKER) (test 8 % hstk=822) BASOPHILS RELATIVE PERCENT (BEAKER) (test 1 % zvcx=813) NEUTROPHILS ABSOLUTE COUNT (BEAKER) (test 5.61 K/ L 1.78-5.38 ylty=706) LYMPHOCYTES ABSOLUTE COUNT (BEAKER) (test 1.22 K/ L 1.32-3.57 ukgv=601) MONOCYTES ABSOLUTE COUNT (BEAKER) (test 0.75 K/ L 0.30-0.82 icem=969) EOSINOPHILS ABSOLUTE COUNT (BEAKER) (test 0.64 K/ L 0.04-0.54 kyvu=487) BASOPHILS ABSOLUTE COUNT (BEAKER) (test 0.06 K/ L 0.01-0.08 ysih=441) IMMATURE GRANULOCYTES-RELATIVE PERCENT (BEAKER) 1 % 0-1 (test hqls=1045) POCT-GLUCOSE [id number] 02:55:00 Test Item Value Reference Range Comments POC-GLUCOSE METER (BEAKER) 187 mg/dL 70-110 TESTED AT [address] (test swgo=2719) [facility] [address] POCT-GLUCOSE [id number] 17:24:00 Test Item Value Reference Range Comments POC-GLUCOSE METER (BEAKER) 153 mg/dL 70-110 TESTED AT [address] (test jzwh=3844) [facility] [id number] POCT-GLUCOSE [id number] 13:20:00 Test Item Value Reference Range Comments POC-GLUCOSE METER (BEAKER) 213 mg/dL 70-110 TESTED AT [address] (test uocq=5900) [place] [id number] POCT-GLUCOSE [id number] 11:32:00 Test Item Value Reference Range Comments POC-GLUCOSE METER (BEAKER) 141 mg/dL 70-110 TESTED AT [address] (test fbfo=3786) [facility] [id number] BASIC METABOLIC [id number] 08:25:00 Test Item Value Reference Range Comments SODIUM (BEAKER) (test 137 meq/L 136-145 mpgr=931) POTASSIUM (BEAKER) (test 3.9 meq/L 3.5-5.1 kqph=785) CHLORIDE (BEAKER) (test 99 meq/L 98-107 pskl=639) CO2 (BEAKER) (test 30 meq/L 22-29 inwz=733) BLOOD UREA NITROGEN 19 mg/dL 7-21 (BEAKER) (test etwo=870) CREATININE (BEAKER) (test 3.56 mg/dL 0.57-1.25 iycc=586) GLUCOSE RANDOM (BEAKER) 119 mg/dL 70-105 (test eyci=842) CALCIUM (BEAKER) (test 8.7 mg/dL 8.4-10.2 pkuq=909) EGFR (BEAKER) (test 17 mL/min/1.73 sq m ESTIMATED GFR IS NOT ykaz=7759) ACCURATE CREATININE CLEARANCE IN PREDICTING GLOMERULAR FILTRATION RATE. ESTIMATED GFR IS NOT APPLICABLE FOR DIALYSIS PATIENTS. POCT-GLUCOSE [id number] 21:40:00 Test Item Value Reference Range Comments POC-GLUCOSE METER (BEAKER) 190 mg/dL 70-110 TESTED AT [address] (test otmv=5662) [facility] [address] POCT-GLUCOSE [id number] 18:26:00 Test Item Value Reference Range Comments POC-GLUCOSE METER (BEAKER) 178 mg/dL 70-110 TESTED AT [address] (test lghn=3857) [place] [id number] POCT-GLUCOSE [id number] 12:54:00 Test Item Value Reference Range Comments POC-GLUCOSE METER (BEAKER) 159 mg/dL 70-110 TESTED AT [address] (test pvcv=7340) [place] [id number] BASIC METABOLIC [id number] 05:56:00 Test Item Value Reference Range Comments SODIUM (BEAKER) (test 136 meq/L 136-145 xjhk=864) POTASSIUM (BEAKER) (test 4.3 meq/L 3.5-5.1 piyt=836) CHLORIDE (BEAKER) (test 100 meq/L 98-107 xspz=007) CO2 (BEAKER) (test 28 meq/L 22-29 rsxd=599) BLOOD UREA NITROGEN 37 mg/dL 7-21 (BEAKER) (test cusz=261) CREATININE (BEAKER) (test 5.04 mg/dL 0.57-1.25 dowi=752) GLUCOSE RANDOM (BEAKER) 113 mg/dL 70-105 (test zgoc=055) CALCIUM (BEAKER) (test 8.8 mg/dL 8.4-10.2 jjkc=338) EGFR (BEAKER) (test 11 mL/min/1.73 sq m ESTIMATED GFR IS NOT vjaw=0010) ACCURATE CREATININE CLEARANCE IN PREDICTING GLOMERULAR FILTRATION RATE. ESTIMATED GFR IS NOT APPLICABLE FOR DIALYSIS PATIENTS. [id number] 05:37:00 Test Item Value Reference Range Comments MAGNESIUM (BEAKER) (test wgxf=969) 2.1 mg/dL 1.6-2.6 POCT-GLUCOSE [id number] 21:49:00 Test Item Value Reference Range Comments POC-GLUCOSE METER (BEAKER) 194 mg/dL 70-110 TESTED AT [address] (test nlpk=7662) [facility] [address] POCT-GLUCOSE [id number] 18:02:00 Test Item Value Reference Range Comments POC-GLUCOSE METER (BEAKER) 195 mg/dL 70-110 TESTED AT [address] (test gexm=6794) [facility] [address] POCT-GLUCOSE [id number] 12:09:00 Test Item Value Reference Range Comments POC-GLUCOSE METER (BEAKER) 217 mg/dL 70-110 TESTED AT [address] (test kmks=1207) [facility] [address] POCT-GLUCOSE [id number] 10:36:00 Test Item Value Reference Range Comments POC-GLUCOSE METER (BEAKER) 121 mg/dL 70-110 TESTED AT [address] (test ltyv=1873) [facility] [address] POCT-GLUCOSE [id number] 10:36:00 Test Item Value Reference Range Comments POC-GLUCOSE METER (BEAKER) 100 mg/dL 70-110 TESTED AT [address] (test bxtu=1115) [facility] [address] POCT-GLUCOSE [id number] 08:27:00 Test Item Value Reference Range Comments POC-GLUCOSE METER (BEAKER) 112 mg/dL 70-110 TESTED AT [address] (test scrq=3131) [facility] [address] BASIC METABOLIC [id number] 06:18:00 Test Item Value Reference Range Comments SODIUM (BEAKER) (test 139 meq/L 136-145 pchv=536) POTASSIUM (BEAKER) (test 4.1 meq/L 3.5-5.1 jglc=695) CHLORIDE (BEAKER) (test 104 meq/L 98-107 wpnl=789) CO2 (BEAKER) (test 29 meq/L 22-29 xjfk=430) BLOOD UREA NITROGEN 26 mg/dL 7-21 (BEAKER) (test jqpy=077) CREATININE (BEAKER) (test 3.93 mg/dL 0.57-1.25 eull=128) GLUCOSE RANDOM (BEAKER) 104 mg/dL 70-105 (test acbp=705) CALCIUM (BEAKER) (test 8.5 mg/dL 8.4-10.2 tbcn=272) EGFR (BEAKER) (test 15 mL/min/1.73 sq m ESTIMATED GFR IS NOT bcha=1660) ACCURATE CREATININE CLEARANCE IN PREDICTING GLOMERULAR FILTRATION RATE. ESTIMATED GFR IS NOT APPLICABLE FOR DIALYSIS PATIENTS. [id number] 06:17:00 Test Item Value Reference Range Comments PHOSPHORUS (BEAKER) (test lcwn=649) 2.5 mg/dL 2.3-4.7 [id number] 06:17:00 Test Item Value Reference Range Comments MAGNESIUM (BEAKER) (test kbqo=000) 2.0 mg/dL 1.6-2.6 CBC W/PLT COUNT & AUTO [id number] 05:48:00 Test Item Value Reference Range Comments WHITE BLOOD CELL COUNT (BEAKER) (test zfij=573) 7.0 K/ L 3.5-10.5 RED BLOOD CELL COUNT (BEAKER) (test vwzn=882) 2.74 M/ L 4.63-6.08 HEMOGLOBIN (BEAKER) (test jzif=170) 9.0 GM/DL 13.7-17.5 HEMATOCRIT (BEAKER) (test lnii=806) 27.9 % 40.1-51.0 MEAN CORPUSCULAR VOLUME (BEAKER) (test cywb=840) 101.8 fL 79.0-92.2 MEAN CORPUSCULAR HEMOGLOBIN (BEAKER) (test 32.8 pg 25.7-32.2 djew=865) MEAN CORPUSCULAR HEMOGLOBIN CONC (BEAKER) (test 32.3 GM/DL 32.3-36.5 atea=101) RED CELL DISTRIBUTION WIDTH (BEAKER) (test 13.4 % 11.6-14.4 rwer=426) PLATELET COUNT (BEAKER) (test beuj=100) 165 K/CU MM 150-450 MEAN PLATELET VOLUME (BEAKER) (test oplm=140) 11.5 fL 9.4-12.4 NUCLEATED RED BLOOD CELLS (BEAKER) (test 0 /100 WBC 0-0 fkrl=984) NEUTROPHILS RELATIVE PERCENT (BEAKER) (test 62 % rpgo=996) LYMPHOCYTES RELATIVE PERCENT (BEAKER) (test 21 % sqbp=564) MONOCYTES RELATIVE PERCENT (BEAKER) (test 11 % bokl=964) EOSINOPHILS RELATIVE PERCENT (BEAKER) (test 5 % oovc=702) BASOPHILS RELATIVE PERCENT (BEAKER) (test 1 % gcha=488) NEUTROPHILS ABSOLUTE COUNT (BEAKER) (test 4.35 K/ L 1.78-5.38 tklk=568) LYMPHOCYTES ABSOLUTE COUNT (BEAKER) (test 1.44 K/ L 1.32-3.57 keaf=600) MONOCYTES ABSOLUTE COUNT (BEAKER) (test 0.78 K/ L 0.30-0.82 vdiz=545) EOSINOPHILS ABSOLUTE COUNT (BEAKER) (test 0.35 K/ L 0.04-0.54 jtcn=752) BASOPHILS ABSOLUTE COUNT (BEAKER) (test 0.07 K/ L 0.01-0.08 htdl=502) IMMATURE GRANULOCYTES-RELATIVE PERCENT (BEAKER) 1 % 0-1 (test aipd=2225) POCT-GLUCOSE [id number] 21:14:00 Test Item Value Reference Range Comments POC-GLUCOSE METER (BEAKER) 188 mg/dL 70-110 TESTED AT [address] (test owvj=8151) [facility] [address] POCT-GLUCOSE [id number] 17:16:00 Test Item Value Reference Range Comments POC-GLUCOSE METER (BEAKER) 199 mg/dL 70-110 TESTED AT [address] (test imam=2950) [facility] [address] POCT-GLUCOSE [id number] 12:41:00 Test Item Value Reference Range Comments POC-GLUCOSE METER (BEAKER) 136 mg/dL 70-110 TESTED AT [address] (test sjor=1414) [facility] [address] CALCIUM, [id number] 08:02:00 Test Item Value Reference Range Comments CALCIUM IONIZED (BEAKER) (test frbd=814) 1.08 mmol/L 1.12-1.27 PH, BLOOD (BEAKER) (test lrpa=2831) 7.42 COMPREHENSIVE METABOLIC [id number] 07:00:00 Test Item Value Reference Range Comments TOTAL PROTEIN (BEAKER) 6.5 gm/dL 6.0-8.3 (test feaq=333) ALBUMIN (BEAKER) (test 2.4 g/dL 3.5-5.0 choy=9740) ALKALINE PHOSPHATASE 78 U/L 40-150 (BEAKER) (test mefk=484) BILIRUBIN TOTAL (BEAKER) 0.4 mg/dL 0.2-1.2 (test ehmo=747) SODIUM (BEAKER) (test 129 meq/L 136-145 wttl=887) POTASSIUM (BEAKER) (test 4.9 meq/L 3.5-5.1 tygh=063) CHLORIDE (BEAKER) (test 93 meq/L 98-107 fska=684) CO2 (BEAKER) (test 26 meq/L 22-29 zvpr=972) BLOOD UREA NITROGEN 50 mg/dL 7-21 (BEAKER) (test xmaj=262) CREATININE (BEAKER) (test 6.18 mg/dL 0.57-1.25 xkyj=400) GLUCOSE RANDOM (BEAKER) 104 mg/dL 70-105 (test xykb=837) CALCIUM (BEAKER) (test 8.9 mg/dL 8.4-10.2 accy=875) AST (SGOT) (BEAKER) (test 22 U/L 5-34 qrra=837) ALT (SGPT) (BEAKER) (test < U/L 6-55 okji=333) EGFR (BEAKER) (test 9 mL/min/1.73 sq m ESTIMATED GFR IS NOT vqta=2663) ACCURATE CREATININE CLEARANCE IN PREDICTING GLOMERULAR FILTRATION RATE. ESTIMATED GFR IS NOT APPLICABLE FOR DIALYSIS PATIENTS. [id number] 06:55:00 Test Item Value Reference Range Comments PHOSPHORUS (BEAKER) (test ifsi=500) 4.1 mg/dL 2.3-4.7 [id number] 06:55:00 Test Item Value Reference Range Comments MAGNESIUM (BEAKER) (test ezrr=658) 2.2 mg/dL 1.6-2.6 CBC W/PLT COUNT & AUTO [id number] 06:21:00 Test Item Value Reference Range Comments WHITE BLOOD CELL COUNT (BEAKER) (test sbav=850) 7.9 K/ L 3.5-10.5 RED BLOOD CELL COUNT (BEAKER) (test dolz=591) 3.13 M/ L 4.63-6.08 HEMOGLOBIN (BEAKER) (test hbbq=387) 10.3 GM/DL 13.7-17.5 HEMATOCRIT (BEAKER) (test oopo=435) 31.0 % 40.1-51.0 MEAN CORPUSCULAR VOLUME (BEAKER) (test rxsl=981) 99.0 fL 79.0-92.2 MEAN CORPUSCULAR HEMOGLOBIN (BEAKER) (test 32.9 pg 25.7-32.2 iptn=339) MEAN CORPUSCULAR HEMOGLOBIN CONC (BEAKER) (test 33.2 GM/DL 32.3-36.5 cmgr=758) RED CELL DISTRIBUTION WIDTH (BEAKER) (test 13.2 % 11.6-14.4 sghk=915) PLATELET COUNT (BEAKER) (test vheu=551) 181 K/CU MM 150-450 MEAN PLATELET VOLUME (BEAKER) (test kpbb=459) 11.1 fL 9.4-12.4 NUCLEATED RED BLOOD CELLS (BEAKER) (test 0 /100 WBC 0-0 wkxr=126) NEUTROPHILS RELATIVE PERCENT (BEAKER) (test 69 % hthj=288) LYMPHOCYTES RELATIVE PERCENT (BEAKER) (test 15 % vbfw=191) MONOCYTES RELATIVE PERCENT (BEAKER) (test 10 % tdlr=001) EOSINOPHILS RELATIVE PERCENT (BEAKER) (test 5 % grrv=482) BASOPHILS RELATIVE PERCENT (BEAKER) (test 1 % ecbi=342) NEUTROPHILS ABSOLUTE COUNT (BEAKER) (test 5.39 K/ L 1.78-5.38 tpae=817) LYMPHOCYTES ABSOLUTE COUNT (BEAKER) (test 1.20 K/ L 1.32-3.57 smvo=615) MONOCYTES ABSOLUTE COUNT (BEAKER) (test 0.75 K/ L 0.30-0.82 lybs=975) EOSINOPHILS ABSOLUTE COUNT (BEAKER) (test 0.42 K/ L 0.04-0.54 cfqu=922) BASOPHILS ABSOLUTE COUNT (BEAKER) (test 0.06 K/ L 0.01-0.08 ubuj=007) IMMATURE GRANULOCYTES-RELATIVE PERCENT (BEAKER) 1 % 0-1 (test arky=2021) POCT-GLUCOSE [id number] 21:04:00 Test Item Value Reference Range Comments POC-GLUCOSE METER (BEAKER) 163 mg/dL 70-110 TESTED AT [address] (test agzr=9734) [facility] [address] POCT-GLUCOSE [id number] 17:12:00 Test Item Value Reference Range Comments POC-GLUCOSE METER (BEAKER) 121 mg/dL 70-110 TESTED AT [address] (test ilnd=0907) [facility] [address] POCT-GLUCOSE [id number] 12:56:00 Test Item Value Reference Range Comments POC-GLUCOSE METER (BEAKER) 144 mg/dL 70-110 TESTED AT [facility] [address] [facility] (test swcy=7711) [facility] [address] POCT-GLUCOSE [id number] 09:36:00 Test Item Value Reference Range Comments POC-GLUCOSE METER (BEAKER) 159 mg/dL 70-110 TESTED AT [facility] [address] [facility] (test lvsh=2560) [facility] [address] BASIC METABOLIC [id number] 08:48:00 Test Item Value Reference Range Comments SODIUM (BEAKER) (test 130 meq/L 136-145 jsyw=872) POTASSIUM (BEAKER) (test 4.5 meq/L 3.5-5.1 ukwr=670) CHLORIDE (BEAKER) (test 93 meq/L 98-107 bqfh=338) CO2 (BEAKER) (test 25 meq/L 22-29 maiz=844) BLOOD UREA NITROGEN 40 mg/dL 7-21 (BEAKER) (test jvvv=688) CREATININE (BEAKER) (test 5.37 mg/dL 0.57-1.25 uzwb=276) GLUCOSE RANDOM (BEAKER) 114 mg/dL 70-105 (test uyia=494) CALCIUM (BEAKER) (test 8.8 mg/dL 8.4-10.2 oury=631) EGFR (BEAKER) (test 10 mL/min/1.73 sq m ESTIMATED GFR IS NOT qkwg=4747) ACCURATE CREATININE CLEARANCE IN PREDICTING GLOMERULAR FILTRATION RATE. ESTIMATED GFR IS NOT APPLICABLE FOR DIALYSIS PATIENTS. [id number] 08:45:00 Test Item Value Reference Range Comments PHOSPHORUS (BEAKER) (test zyco=496) 3.8 mg/dL 2.3-4.7 [id number] 08:45:00 Test Item Value Reference Range Comments MAGNESIUM (BEAKER) (test rkxb=467) 1.9 mg/dL 1.6-2.6 CBC W/PLT COUNT & AUTO [id number] 05:35:00 Test Item Value Reference Range Comments WHITE BLOOD CELL COUNT (BEAKER) (test ydoo=285) 7.5 K/ L 3.5-10.5 RED BLOOD CELL COUNT (BEAKER) (test bxcs=962) 3.03 M/ L 4.63-6.08 HEMOGLOBIN (BEAKER) (test kuwr=481) 10.1 GM/DL 13.7-17.5 HEMATOCRIT (BEAKER) (test wlle=437) 30.2 % 40.1-51.0 MEAN CORPUSCULAR VOLUME (BEAKER) (test xxhn=247) 99.7 fL 79.0-92.2 MEAN CORPUSCULAR HEMOGLOBIN (BEAKER) (test 33.3 pg 25.7-32.2 pmcw=040) MEAN CORPUSCULAR HEMOGLOBIN CONC (BEAKER) (test 33.4 GM/DL 32.3-36.5 kxxf=335) RED CELL DISTRIBUTION WIDTH (BEAKER) (test 13.1 % 11.6-14.4 ajcv=761) PLATELET COUNT (BEAKER) (test whkj=478) 180 K/CU MM 150-450 MEAN PLATELET VOLUME (BEAKER) (test dbwl=954) 11.4 fL 9.4-12.4 NUCLEATED RED BLOOD CELLS (BEAKER) (test 0 /100 WBC 0-0 kxxd=740) NEUTROPHILS RELATIVE PERCENT (BEAKER) (test 68 % xzia=418) LYMPHOCYTES RELATIVE PERCENT (BEAKER) (test 16 % mcel=576) MONOCYTES RELATIVE PERCENT (BEAKER) (test 11 % mcfn=583) EOSINOPHILS RELATIVE PERCENT (BEAKER) (test 5 % kdmq=338) BASOPHILS RELATIVE PERCENT (BEAKER) (test 1 % vura=048) NEUTROPHILS ABSOLUTE COUNT (BEAKER) (test 5.06 K/ L 1.78-5.38 wowz=214) LYMPHOCYTES ABSOLUTE COUNT (BEAKER) (test 1.16 K/ L 1.32-3.57 nmqo=565) MONOCYTES ABSOLUTE COUNT (BEAKER) (test 0.82 K/ L 0.30-0.82 ppwb=458) EOSINOPHILS ABSOLUTE COUNT (BEAKER) (test 0.37 K/ L 0.04-0.54 qsmp=324) BASOPHILS ABSOLUTE COUNT (BEAKER) (test 0.05 K/ L 0.01-0.08 rjpy=774) IMMATURE GRANULOCYTES-RELATIVE PERCENT (BEAKER) 1 % 0-1 (test mjfk=9195) POCT-GLUCOSE [id number] 05:35:00 Test Item Value Reference Range Comments POC-GLUCOSE METER (BEAKER) 140 mg/dL 70-110 TESTED AT [address] (test vkih=1656) [place] [address] POCT-GLUCOSE [id number] 21:25:00 Test Item Value Reference Range Comments POC-GLUCOSE METER (BEAKER) 154 mg/dL 70-110 TESTED AT [address] (test cqsv=2807) [place] [address] POCT-GLUCOSE [id number] 17:24:00 Test Item Value Reference Range Comments POC-GLUCOSE METER (BEAKER) 167 mg/dL 70-110 TESTED AT [address] (test sahx=1290) [place] [address] POCT-GLUCOSE [id number] 14:06:00 Test Item Value Reference Range Comments POC-GLUCOSE METER (BEAKER) 179 mg/dL 70-110 TESTED AT [address] (test lkib=6733) [place] [address] POCT-GLUCOSE [id number] 11:57:00 Test Item Value Reference Range Comments POC-GLUCOSE METER (BEAKER) 186 mg/dL 70-110 TESTED AT [address] (test sxdi=3951) [place] [address] [id number] 09:09:00 Test Item Value Reference Range Comments FERRITIN (BEAKER) (test izym=960) 683 ng/mL 5-275 POCT-GLUCOSE [id number] 09:08:00 Test Item Value Reference Range Comments POC-GLUCOSE METER (BEAKER) 129 mg/dL 70-110 TESTED AT [address] (test pfgp=2362) [place] [address] POCT-GLUCOSE [id number] 08:19:00 Test Item Value Reference Range Comments POC-GLUCOSE METER (BEAKER) 70 mg/dL 70-110 TESTED AT [address] (test johp=8219) [place] [address] POCT-GLUCOSE [id number] 07:50:00 Test Item Value Reference Range Comments POC-GLUCOSE METER (BEAKER) 61 mg/dL 70-110 Notified TAMERA CISNEROS/TESTED AT [facility] (test dake=6843) [address] [place] [address] IRON, TIBC, % SAT. (WITHOUT FERRITIN)[id number] 07:14:00 Test Item Value Reference Range Comments IRON (BEAKER) (test wrlm=963) 51.0 ug/dL 40.0-160.0 TOTAL IRON BINDING CAPACITY (BEAKER) (test 149 ug/dL 250-450 zldi=144) IRON % SATURATION (2) (BEAKER) (test wlpr=7818) 34 % 20-55 BASIC METABOLIC [id number] 06:20:00 Test Item Value Reference Range Comments SODIUM (BEAKER) (test 134 meq/L 136-145 yumk=111) POTASSIUM (BEAKER) (test 4.1 meq/L 3.5-5.1 oxyf=541) CHLORIDE (BEAKER) (test 97 meq/L 98-107 mnnw=652) CO2 (BEAKER) (test 27 meq/L 22-29 wjnj=251) BLOOD UREA NITROGEN 26 mg/dL 7-21 (BEAKER) (test geyw=284) CREATININE (BEAKER) (test 3.93 mg/dL 0.57-1.25 uwkn=835) GLUCOSE RANDOM (BEAKER) 66 mg/dL 70-105 (test cdsl=939) CALCIUM (BEAKER) (test 8.7 mg/dL 8.4-10.2 gxps=042) EGFR (BEAKER) (test 15 mL/min/1.73 sq m ESTIMATED GFR IS NOT qefo=1549) ACCURATE CREATININE CLEARANCE IN PREDICTING GLOMERULAR FILTRATION RATE. ESTIMATED GFR IS NOT APPLICABLE FOR DIALYSIS PATIENTS. [id number] 06:15:00 Test Item Value Reference Range Comments PHOSPHORUS (BEAKER) (test wbnj=596) 3.3 mg/dL 2.3-4.7 [id number] 06:15:00 Test Item Value Reference Range Comments MAGNESIUM (BEAKER) (test wfrk=043) 1.9 mg/dL 1.6-2.6 RETICULOCYTE [id number] 05:23:00 Test Item Value Reference Range Comments RETICULOCYTE COUNT PCT (BEAKER) (test nmrt=005) 2.0 % 0.5-1.8 CBC W/PLT COUNT & AUTO [id number] 05:23:00 Test Item Value Reference Range Comments WHITE BLOOD CELL COUNT (BEAKER) (test rukw=172) 7.9 K/ L 3.5-10.5 RED BLOOD CELL COUNT (BEAKER) (test xdqx=155) 3.01 M/ L 4.63-6.08 HEMOGLOBIN (BEAKER) (test ocvv=794) 10.2 GM/DL 13.7-17.5 HEMATOCRIT (BEAKER) (test vxab=835) 30.3 % 40.1-51.0 MEAN CORPUSCULAR VOLUME (BEAKER) (test vxhn=714) 100.7 fL 79.0-92.2 MEAN CORPUSCULAR HEMOGLOBIN (BEAKER) (test 33.9 pg 25.7-32.2 alfd=278) MEAN CORPUSCULAR HEMOGLOBIN CONC (BEAKER) (test 33.7 GM/DL 32.3-36.5 btov=683) RED CELL DISTRIBUTION WIDTH (BEAKER) (test 13.4 % 11.6-14.4 xdng=669) PLATELET COUNT (BEAKER) (test mgks=743) 184 K/CU MM 150-450 MEAN PLATELET VOLUME (BEAKER) (test zoqa=826) 11.2 fL 9.4-12.4 NUCLEATED RED BLOOD CELLS (BEAKER) (test 0 /100 WBC 0-0 uhst=737) NEUTROPHILS RELATIVE PERCENT (BEAKER) (test 67 % sjlr=756) LYMPHOCYTES RELATIVE PERCENT (BEAKER) (test 16 % zdvy=647) MONOCYTES RELATIVE PERCENT (BEAKER) (test 12 % zpeb=981) EOSINOPHILS RELATIVE PERCENT (BEAKER) (test 4 % dxhc=392) BASOPHILS RELATIVE PERCENT (BEAKER) (test 1 % mors=757) NEUTROPHILS ABSOLUTE COUNT (BEAKER) (test 5.28 K/ L 1.78-5.38 pjkd=831) LYMPHOCYTES ABSOLUTE COUNT (BEAKER) (test 1.27 K/ L 1.32-3.57 qqux=172) MONOCYTES ABSOLUTE COUNT (BEAKER) (test 0.98 K/ L 0.30-0.82 swli=118) EOSINOPHILS ABSOLUTE COUNT (BEAKER) (test 0.29 K/ L 0.04-0.54 esqf=327) BASOPHILS ABSOLUTE COUNT (BEAKER) (test 0.05 K/ L 0.01-0.08 evzh=657) IMMATURE GRANULOCYTES-RELATIVE PERCENT (BEAKER) 0 % 0-1 (test vcno=9425) POCT-GLUCOSE [id number] 21:10:00 Test Item Value Reference Range Comments POC-GLUCOSE METER (BEAKER) 142 mg/dL 70-110 TESTED AT [facility] [address] [facility] (test vkps=4940) [facility] [address] POCT-GLUCOSE [id number] 17:40:00 Test Item Value Reference Range Comments POC-GLUCOSE METER (BEAKER) 162 mg/dL 70-110 TESTED AT [facility] [address] [facility] (test diht=7827) [facility] [address] POCT-GLUCOSE [id number] 12:21:00 Test Item Value Reference Range Comments POC-GLUCOSE METER (BEAKER) 137 mg/dL 70-110 TESTED AT [place] [id number] [facility] (test cgbu=0367) [facility] [address] COMPREHENSIVE METABOLIC [id number] 06:38:00 Test Item Value Reference Range Comments TOTAL PROTEIN (BEAKER) 6.2 gm/dL 6.0-8.3 (test rskp=734) ALBUMIN (BEAKER) (test 2.3 g/dL 3.5-5.0 krrp=1002) ALKALINE PHOSPHATASE 70 U/L 40-150 (BEAKER) (test bpub=204) BILIRUBIN TOTAL (BEAKER) 0.4 mg/dL 0.2-1.2 (test gjqe=733) SODIUM (BEAKER) (test 133 meq/L 136-145 vgta=448) POTASSIUM (BEAKER) (test 4.6 meq/L 3.5-5.1 xvkv=043) CHLORIDE (BEAKER) (test 98 meq/L 98-107 chfu=452) CO2 (BEAKER) (test 25 meq/L 22-29 fevo=485) BLOOD UREA NITROGEN 46 mg/dL 7-21 (BEAKER) (test kgcb=369) CREATININE (BEAKER) (test 6.64 mg/dL 0.57-1.25 svaq=227) GLUCOSE RANDOM (BEAKER) 51 mg/dL 70-105 (test tgpa=649) CALCIUM (BEAKER) (test 8.6 mg/dL 8.4-10.2 ljdv=474) AST (SGOT) (BEAKER) (test 21 U/L 5-34 ywac=868) ALT (SGPT) (BEAKER) (test < U/L 6-55 hurz=577) EGFR (BEAKER) (test 8 mL/min/1.73 sq m ESTIMATED GFR IS NOT guxb=7651) ACCURATE CREATININE CLEARANCE IN PREDICTING GLOMERULAR FILTRATION RATE. ESTIMATED GFR IS NOT APPLICABLE FOR DIALYSIS PATIENTS. [id number] 06:34:00 Test Item Value Reference Range Comments PHOSPHORUS (BEAKER) (test pzwp=317) 4.8 mg/dL 2.3-4.7 [id number] 06:34:00 Test Item Value Reference Range Comments MAGNESIUM (BEAKER) (test sacm=116) 2.1 mg/dL 1.6-2.6 CBC W/PLT COUNT & AUTO [id number] 05:21:00 Test Item Value Reference Range Comments WHITE BLOOD CELL COUNT (BEAKER) (test grfl=391) 8.2 K/ L 3.5-10.5 RED BLOOD CELL COUNT (BEAKER) (test zcpf=210) 3.03 M/ L 4.63-6.08 HEMOGLOBIN (BEAKER) (test qvmy=721) 9.9 GM/DL 13.7-17.5 HEMATOCRIT (BEAKER) (test bdzm=678) 30.1 % 40.1-51.0 MEAN CORPUSCULAR VOLUME (BEAKER) (test xbjy=461) 99.3 fL 79.0-92.2 MEAN CORPUSCULAR HEMOGLOBIN (BEAKER) (test 32.7 pg 25.7-32.2 iqbu=752) MEAN CORPUSCULAR HEMOGLOBIN CONC (BEAKER) (test 32.9 GM/DL 32.3-36.5 cewo=136) RED CELL DISTRIBUTION WIDTH (BEAKER) (test 13.5 % 11.6-14.4 embe=755) PLATELET COUNT (BEAKER) (test vvmt=564) 192 K/CU MM 150-450 MEAN PLATELET VOLUME (BEAKER) (test mnmm=003) 11.1 fL 9.4-12.4 NUCLEATED RED BLOOD CELLS (BEAKER) (test 0 /100 WBC 0-0 iklq=994) NEUTROPHILS RELATIVE PERCENT (BEAKER) (test 69 % ehmw=196) LYMPHOCYTES RELATIVE PERCENT (BEAKER) (test 15 % gtof=830) MONOCYTES RELATIVE PERCENT (BEAKER) (test 9 % hkte=284) EOSINOPHILS RELATIVE PERCENT (BEAKER) (test 5 % vscp=228) BASOPHILS RELATIVE PERCENT (BEAKER) (test 1 % napx=573) NEUTROPHILS ABSOLUTE COUNT (BEAKER) (test 5.65 K/ L 1.78-5.38 iemm=981) LYMPHOCYTES ABSOLUTE COUNT (BEAKER) (test 1.24 K/ L 1.32-3.57 macv=588) MONOCYTES ABSOLUTE COUNT (BEAKER) (test 0.74 K/ L 0.30-0.82 vcka=093) EOSINOPHILS ABSOLUTE COUNT (BEAKER) (test 0.44 K/ L 0.04-0.54 xuly=921) BASOPHILS ABSOLUTE COUNT (BEAKER) (test 0.05 K/ L 0.01-0.08 vqyd=415) IMMATURE GRANULOCYTES-RELATIVE PERCENT (BEAKER) 0 % 0-1 (test orus=3796) POCT-GLUCOSE [id number] 21:00:00 Test Item Value Reference Range Comments POC-GLUCOSE METER (BEAKER) 103 mg/dL 70-110 TESTED AT [address] (test wypy=1851) [place] [address] RAD, CHEST, 1 VIEW, NON [id number] 19:51:00Reason for exam:->CoughShould this be performed at [...] Shelley Verified Date/Time: 08/22/2018 19:51:52 Reading Location: [address] Consult Reading Room [id number] 19:16:00 Test Item Value Reference Range Comments PHOSPHORUS (BEAKER) (test lsws=133) 4.4 mg/dL 2.3-4.7 Send if you can add on from earlier AM labsPOCT-GLUCOSE [id number] 17:53:00 Test Item Value Reference Range Comments POC-GLUCOSE METER (BEAKER) 134 mg/dL 70-110 TESTED AT [place] [id number] [facility] (test ivxt=5684) [place] [address] HEPATITIS B SURFACE [id number] 13:45:00 Test Item Value Reference Range Comments HEPATITIS B SURFACE ANTIGEN (2) (BEAKER) (test Nonreactive Nonreactive iunj=9417) POCT-GLUCOSE [id number] 10:34:00 Test Item Value Reference Range Comments POC-GLUCOSE METER (BEAKER) 74 mg/dL 70-110 TESTED AT [address] (test iepn=9968) [place] [id number] POCT-GLUCOSE [id number] 07:42:00 Test Item Value Reference Range Comments POC-GLUCOSE METER (BEAKER) 118 mg/dL 70-110 TESTED AT [address] (test ablw=9264) [place] [id number] POCT-GLUCOSE [id number] 06:39:00 Test Item Value Reference Range Comments POC-GLUCOSE METER (BEAKER) 57 mg/dL 70-110 Notified TAMERA CISNEROS/TESTED AT [facility] (test oosv=8772) [address] [place], [place] [id number] BASIC METABOLIC [id number] 04:55:00 Test Item Value Reference Range Comments SODIUM (BEAKER) (test 136 meq/L 136-145 acyk=278) POTASSIUM (BEAKER) (test 4.1 meq/L 3.5-5.1 djzi=120) CHLORIDE (BEAKER) (test 98 meq/L 98-107 febb=629) CO2 (BEAKER) (test 29 meq/L 22-29 ghau=852) BLOOD UREA NITROGEN 33 mg/dL 7-21 (BEAKER) (test uyuh=413) CREATININE (BEAKER) (test 5.15 mg/dL 0.57-1.25 jzdi=825) GLUCOSE RANDOM (BEAKER) 48 mg/dL 70-105 (test xvrb=442) CALCIUM (BEAKER) (test 8.8 mg/dL 8.4-10.2 fwtq=395) EGFR (BEAKER) (test 11 mL/min/1.73 sq m ESTIMATED GFR IS NOT xqrh=5543) ACCURATE CREATININE CLEARANCE IN PREDICTING GLOMERULAR FILTRATION RATE. ESTIMATED GFR IS NOT APPLICABLE FOR DIALYSIS PATIENTS. [id number] 04:52:00 Test Item Value Reference Range Comments MAGNESIUM (BEAKER) (test orja=017) 2.1 mg/dL 1.6-2.6 [id number] 04:47:00 Test Item Value Reference Range Comments PROTIME (BEAKER) (test tzgq=868) 16.0 seconds 11.7-14.7 INR (BEAKER) (test rchc=989) 1.3 <=5.9 PARTIAL THROMBOPLASTIN TIME (BEAKER) (test 51.1 seconds 22.5-36.0 yxxw=678) RECOMMENDED COUMADIN/WARFARIN INR THERAPY RANGESSTANDARD DOSE: 2.0 - 3.0 Includes: PROPHYLAXIS forvenous thrombosis, systemic embolization; TREATMENT for venous thrombosis and/or pulmonary embolus.HIGH RISK: Target INR is 2.5-3.5 for patients with mechanical heart valves.CBC W/PLT COUNT & AUTO [id number] 04:36:00 Test Item Value Reference Range Comments WHITE BLOOD CELL COUNT (BEAKER) (test elax=933) 9.1 K/ L 3.5-10.5 RED BLOOD CELL COUNT (BEAKER) (test flgq=552) 3.12 M/ L 4.63-6.08 HEMOGLOBIN (BEAKER) (test glao=809) 10.2 GM/DL 13.7-17.5 HEMATOCRIT (BEAKER) (test emjl=772) 31.9 % 40.1-51.0 MEAN CORPUSCULAR VOLUME (BEAKER) (test kirb=426) 102.2 fL 79.0-92.2 MEAN CORPUSCULAR HEMOGLOBIN (BEAKER) (test 32.7 pg 25.7-32.2 tuqr=897) MEAN CORPUSCULAR HEMOGLOBIN CONC (BEAKER) (test 32.0 GM/DL 32.3-36.5 lkky=626) RED CELL DISTRIBUTION WIDTH (BEAKER) (test 14.0 % 11.6-14.4 mbik=327) PLATELET COUNT (BEAKER) (test dtzc=585) 194 K/CU MM 150-450 MEAN PLATELET VOLUME (BEAKER) (test urbe=568) 11.2 fL 9.4-12.4 NUCLEATED RED BLOOD CELLS (BEAKER) (test 0 /100 WBC 0-0 iqwi=228) NEUTROPHILS RELATIVE PERCENT (BEAKER) (test 73 % qxnn=265) LYMPHOCYTES RELATIVE PERCENT (BEAKER) (test 11 % mqpg=012) MONOCYTES RELATIVE PERCENT (BEAKER) (test 10 % gkdt=447) EOSINOPHILS RELATIVE PERCENT (BEAKER) (test 5 % pkzq=213) BASOPHILS RELATIVE PERCENT (BEAKER) (test 0 % mpeu=880) NEUTROPHILS ABSOLUTE COUNT (BEAKER) (test 6.63 K/ L 1.78-5.38 kwhl=566) LYMPHOCYTES ABSOLUTE COUNT (BEAKER) (test 1.04 K/ L 1.32-3.57 gaxh=956) MONOCYTES ABSOLUTE COUNT (BEAKER) (test 0.92 K/ L 0.30-0.82 czkw=619) EOSINOPHILS ABSOLUTE COUNT (BEAKER) (test 0.44 K/ L 0.04-0.54 tmsa=214) BASOPHILS ABSOLUTE COUNT (BEAKER) (test 0.04 K/ L 0.01-0.08 ptfc=111) IMMATURE GRANULOCYTES-RELATIVE PERCENT (BEAKER) 0 % 0-1 (test wrbb=6017) ANG, THROMBECTOMY, A-V [id number] 14:11:00If unable then place tunneled dialysis catheterReason [...] catheter for an Amplatz wire. A 7 Salv[place]orean sheath was placed at the access site. [...] as (Ka,r): 45 mGy Signed: Mariah Calzada [facility] Verified Date/Time: 09/18/2017 14:11:58 Reading Location: [place] [id number] [facility] Reading Room Electronically signed by: MARIAH CALZADA M.D. on 2017 02:11 PMPOCT-GLUCOSE [id number] 13:43:00 Test Item Value Reference Range Comments POC-GLUCOSE METER (BEAKER) 76 mg/dL 70-110 TESTED AT [facility] [address] [facility] (test pood=5063) [facility] [address] HEMOGLOBIN [id number] 08:02:00 Test Item Value Reference Range Comments HEMOGLOBIN A1C (BEAKER) (test zqec=879) 7.0 % 4.3-6.1 BASIC METABOLIC [id number] 07:34:00 Test Item Value Reference Range Comments SODIUM (BEAKER) (test 140 meq/L 136-145 rvld=908) POTASSIUM (BEAKER) (test 5.0 meq/L 3.5-5.1 shtw=348) CHLORIDE (BEAKER) (test 101 meq/L 98-107 affy=257) CO2 (BEAKER) (test 22 meq/L 22-29 ghpu=813) BLOOD UREA NITROGEN 87 mg/dL 7-21 (BEAKER) (test yamp=102) CREATININE (BEAKER) (test 10.99 mg/dL 0.57-1.25 uges=976) GLUCOSE RANDOM (BEAKER) 87 mg/dL 70-105 (test rmfe=933) CALCIUM (BEAKER) (test 7.8 mg/dL 8.4-10.2 hfpc=822) EGFR (BEAKER) (test 5 mL/min/1.73 sq m ESTIMATED GFR IS NOT cvye=2086) ACCURATE CREATININE CLEARANCE IN PREDICTING GLOMERULAR FILTRATION RATE. ESTIMATED GFR IS NOT APPLICABLE FOR DIALYSIS PATIENTS. [id number] 07:28:00 Test Item Value Reference Range Comments PHOSPHORUS (BEAKER) (test nssl=264) 6.0 mg/dL 2.3-4.7 [id number] 07:28:00 Test Item Value Reference Range Comments MAGNESIUM (BEAKER) (test jwqx=352) 2.3 mg/dL 1.6-2.6 CALCIUM, [id number] 07:18:00 Test Item Value Reference Range Comments CALCIUM IONIZED (BEAKER) (test hsqg=442) 1.00 mmol/L 1.12-1.27 PH, BLOOD (BEAKER) (test evwm=7750) 7.27 HEPATITIS B SURFACE [id number] 07:11:00 Test Item Value Reference Range Comments HEPATITIS B SURFACE ANTIGEN (2) (BEAKER) (test Nonreactive Nonreactive dsnq=2098) Pls add to specimen drawn earlier.POCT-GLUCOSE [id number] 07:06:00 Test Item Value Reference Range Comments POC-GLUCOSE METER (BEAKER) 118 mg/dL 70-110 TESTED AT [address] (test yryh=2668) [facility] [address] PROTHROMBIN [id number] 06:14:00 Test Item Value Reference Range Comments PROTIME (BEAKER) (test dolp=842) 14.2 seconds 11.7-14.7 INR (BEAKER) (test zyyu=062) 1.1 <=5.9 RECOMMENDED COUMADIN/WARFARIN INR THERAPY RANGESSTANDARD DOSE: 2.0 - 3.0 Includes: PROPHYLAXIS forvenous thrombosis, systemic embolization; TREATMENT for venous thrombosis and/or pulmonary embolus.HIGH RISK: Target INR is 2.5-3.5 for patients with mechanical heart valves.CBC W/PLT COUNT & AUTO [id number] 06:04:00 Test Item Value Reference Range Comments WHITE BLOOD CELL COUNT (BEAKER) (test ucrh=586) 5.7 K/ L 3.5-10.5 RED BLOOD CELL COUNT (BEAKER) (test tapf=324) 3.78 M/ L 4.63-6.08 HEMOGLOBIN (BEAKER) (test fryi=362) 13.0 GM/DL 13.7-17.5 HEMATOCRIT (BEAKER) (test mopr=101) 39.4 % 40.1-51.0 MEAN CORPUSCULAR VOLUME (BEAKER) (test kswq=714) 104.2 fL 79.0-92.2 MEAN CORPUSCULAR HEMOGLOBIN (BEAKER) (test 34.4 pg 25.7-32.2 lfyo=352) MEAN CORPUSCULAR HEMOGLOBIN CONC (BEAKER) (test 33.0 GM/DL 32.3-36.5 gznn=693) RED CELL DISTRIBUTION WIDTH (BEAKER) (test 14.1 % 11.6-14.4 qkaz=973) PLATELET COUNT (BEAKER) (test ewfi=778) 82 K/CU MM 150-450 MEAN PLATELET VOLUME (BEAKER) (test hdoo=037) 13.3 fL 9.4-12.4 NUCLEATED RED BLOOD CELLS (BEAKER) (test 0 /100 WBC 0-0 cxdr=387) NEUTROPHILS RELATIVE PERCENT (BEAKER) (test 62 % kcdq=705) LYMPHOCYTES RELATIVE PERCENT (BEAKER) (test 23 % rfcf=239) MONOCYTES RELATIVE PERCENT (BEAKER) (test 11 % geed=884) EOSINOPHILS RELATIVE PERCENT (BEAKER) (test 4 % axuw=748) BASOPHILS RELATIVE PERCENT (BEAKER) (test 1 % znmt=312) NEUTROPHILS ABSOLUTE COUNT (BEAKER) (test 3.53 K/ L 1.78-5.38 zkpd=257) LYMPHOCYTES ABSOLUTE COUNT (BEAKER) (test 1.30 K/ L 1.32-3.57 kphr=536) MONOCYTES ABSOLUTE COUNT (BEAKER) (test xvpx=130) 0.62 K/ L 0.30-0.82 EOSINOPHILS ABSOLUTE COUNT (BEAKER) (test 0.22 K/ L 0.04-0.54 jgcz=519) BASOPHILS ABSOLUTE COUNT (BEAKER) (test aznt=205) 0.03 K/ L 0.01-0.08 IMMATURE GRANULOCYTES-RELATIVE PERCENT (BEAKER) 1 % 0-1 (test silo=9381) POCT-GLUCOSE [id number] 22:23:00 Test Item Value Reference Range Comments POC-GLUCOSE METER (BEAKER) 185 mg/dL 70-110 TESTED AT [address] (test ffyf=8216) [place] [id number] POCT-GLUCOSE [id number] 21:27:00 Test Item Value Reference Range Comments POC-GLUCOSE METER (BEAKER) 198 mg/dL 70-110 TESTED AT [address] (test kkwv=6497) [place] [address] POCT-GLUCOSE [id number] 17:43:00 Test Item Value Reference Range Comments POC-GLUCOSE METER (BEAKER) 164 mg/dL 70-110 TESTED AT [address] (test xsbd=6145) [place] [address] HEPATITIS B SURFACE [id number] 15:14:00 Test Item Value Reference Range Comments HEPATITIS B SURFACE ANTIGEN (2) (BEAKER) (test Nonreactive Nonreactive szac=4595) Pls add to specimen drawn earlier.BASIC METABOLIC [id number] 13:34:00 Test Item Value Reference Range Comments SODIUM (BEAKER) (test 140 meq/L 136-145 mmdd=362) POTASSIUM (BEAKER) (test 5.4 meq/L 3.5-5.1 fltf=416) CHLORIDE (BEAKER) (test 101 meq/L 98-107 qnbs=317) CO2 (BEAKER) (test 19 meq/L 22-29 kcar=458) BLOOD UREA NITROGEN 123 mg/dL 7-21 (BEAKER) (test oilp=911) CREATININE (BEAKER) (test 12.96 mg/dL 0.57-1.25 ukmy=356) GLUCOSE RANDOM (BEAKER) 79 mg/dL 70-105 (test vtdy=043) CALCIUM (BEAKER) (test 7.9 mg/dL 8.4-10.2 hpbr=446) EGFR (BEAKER) (test 4 mL/min/1.73 sq m ESTIMATED GFR IS NOT pdjh=4602) ACCURATE CREATININE CLEARANCE IN PREDICTING GLOMERULAR FILTRATION RATE. ESTIMATED GFR IS NOT APPLICABLE FOR DIALYSIS PATIENTS. [id number] 13:24:00 Test Item Value Reference Range Comments MAGNESIUM (BEAKER) (test kdrm=575) 2.3 mg/dL 1.6-2.6 [id number] 13:24:00 Test Item Value Reference Range Comments PHOSPHORUS (BEAKER) (test gccx=810) 6.2 mg/dL 2.3-4.7 POCT-GLUCOSE [id number] 12:20:00 Test Item Value Reference Range Comments POC-GLUCOSE METER (BEAKER) 84 mg/dL 70-110 TESTED AT [facility] [address] [facility] (test znlz=8019) [facility] [address] ANG, NON-TUNNELED CATH >5 Y.O. [id number] 11:23:00Reason for exam:-> please declot the AV fistula, if unable to do that he needs catheter exchangeFINAL REPORT Nontunneled dialysis catheter insertion, 09/16/2017. History: Left upper extremity AV fistula thrombosed. Modality: Fluoroscopy and sonography. Sedation: None. Merchandise Supervisor: Edgar Chandler MD. Tub Rider: None. Approach: Right internal jugular vein Estimated [...] MDReport Verified Date/Time: 2017 11:23:57 Reading Location: [place] [id number] [facility] Reading Room POCT- GLUCOSE [id number] 07:38:00 Test Item Value Reference Range Comments POC-GLUCOSE METER (BEAKER) 89 mg/dL 70-110 TESTED AT [address] (test gaph=7856) [place] [address] PROTHROMBIN [id number] 05:19:00 Test Item Value Reference Range Comments PROTIME (BEAKER) (test giyt=175) 14.8 seconds 11.7-14.7 INR (BEAKER) (test qxho=521) 1.2 <=5.9 RECOMMENDED COUMADIN/WARFARIN INR THERAPY RANGESSTANDARD DOSE: 2.0 - 3.0 Includes: PROPHYLAXIS forvenous thrombosis, systemic embolization; TREATMENT for venous thrombosis and/or pulmonary embolus.HIGH RISK: Target INR is 2.5-3.5 for patients with mechanical heart valves.POCT-GLUCOSE [id number] 23:26:00 Test Item Value Reference Range Comments POC-GLUCOSE METER (BEAKER) 261 mg/dL 70-110 TESTED AT [address] (test ggad=9441) [place] [address]
--- OUTSIDE RECORDS SUMMARY | 2019-04-20 23:55 | XMS REPORT ---
[...] Start Date End Date Status Dosage Pravachol [facility] [id number] 40 MG Orally Once Active 1 tablet a day Results No Known Results Summary Purpose eClinicalWorks Submission
[2019-04-21 01:34] LABS: Absolute Lymphocytes (CBC) 1.1 K/uL (0.7-4.9); Basophils % 0.4 % (0-1.3); Hematocrit 32.3 % (39.6-49.0); Lymphocytes % 7.4 % (15.3-44.8); RBC Red Blood Cell Count 3.33 M/uL (4.33-5.43)
[2019-04-21 01:46] LABS: Potassium 3.5 mmol/L (3.5-5.1)
--- NOTE | 2019-04-21 04:33 | ER ---
Nurse's Notes [facility] Name: Nadir Mendez Age: 74 yrs Sex: Male : 1945 Arrival Date: 04/20/2019 Time: 23:52 Bed 17 Private MD: Diagnosis: Fecal impaction Presentation: 04/20 23:55 Presenting complaint: EMS states: pt from [facility]. Pt has not had a tr5 bowel movement in 2 days, new peg tube placement about 2 weeks ago. Residual from peg tube between feedings is twice as much from previous feeding so they are thinking the feedings are not being tolerated. Pt goes to dialysis TThSat and last time dialyzed was yesterday. Pt is nonverbal but will respond by nodding head. Pt's baseline mentation in unknown. Transition of care: patient was not received from another setting of care. Onset of symptoms was April 20, 2019. Risk Assessment: Do you want to hurt yourself or someone else? Patient reports no desire to harm self or others. Initial Sepsis Screen: Does the patient meet any 2 criteria? Altered Mental Status. HR > 90 bpm. No. Patient's initial sepsis screen is negative. Does the patient have a suspected source of infection? No. Patient's initial sepsis screen is negative. Care prior to arrival: Oxygen administered. via nasal cannula. 23:55 Method Of Arrival: EMS: [facility] tr5 23:55 Acuity: ASTER 2 tr5 Historical: - Allergies: 04/21 00:06 No Known Allergies; tr5 - Home Meds: 00:06 acetaminophen-codeine 300-30 mg Oral tab 1 tab twice a day for Pain [Active]; aspirin tr5 81 mg Oral TbEC 1 tab once daily [Active]; carbidopa-levodopa 25-100 mg Oral tab 1 tab twice a day [Active]; amlodipine 10 mg tab [Active]; calcium acetate 667 mg oral tab [Active]; cilostazol 100 mg oral tab [Active]; clopidogrel 75 mg Oral tab 1 tab nightly [Active]; ferrous sulfate 325 mg (65 mg iron) Oral TbEC [Active]; folic acid 1 mg Oral tab [Active]; gentamicin 0.3 % Opht drop [Active]; Insulin Glargine Sub-Q 100 unit/mL [Active]; Lyrica 75 mg Oral 1 cap 2 times per day [Active]; metoprolol tartrate 25 mg Oral tab [Active]; midodrine 5 mg Oral tab 1 tabs every Tue, Nicole, Sat 30 mins prior to dialysis [Active]; simvastatin 40 mg Oral tab [Active]; promethazine 25 mg Oral tab [Active]; ranitidine HCl 75 mg oral tab [Active]; Zoloft 50 mg Oral tab [Active]; - PMHx: 00:06 Alzheimers; Anemia; Depression; Diabetes - NIDDM; ESRD; Dialysis; GERD; Hepatitis; tr5 Hyperlipidemia; Parkinson's; PVD; Renal Disease; Tues, Thurs, Sat; Ulcers; Pancreatitis; neuropathy; Hypertension; - Immunization history:: Adult Immunizations up to date. - Social history:: Smoking status: unknown. - Ebola Screening: : No symptoms or risks identified at this time. Screenin:00 Abuse screen: Denies threats or abuse. Nutritional screening: No deficits noted. tr5 Tuberculosis screening: No symptoms or risk factors identified. Fall Risk None identified. Assessment: 00:00 General: Appears in no apparent distress. Behavior is calm, quiet. Pain: Denies pain. 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 Weakness. Cardiovascular: Heart tones present Bruits absent Capillary refill < 3 seconds Pulses are absent in right dorsalis pedis artery. Respiratory: Airway is patent Trachea midline Respiratory effort is even, unlabored, Respiratory pattern is regular, symmetrical, Breath sounds are clear Breath sounds are coarse bilaterally. GI: Abdomen is round Bowel sounds present X 4 quads. : No signs and/or symptoms were reported regarding the genitourinary system. :. EENT: No signs and/or symptoms were reported regarding the EENT system. Derm: No signs and/or symptoms reported regarding the dermatologic system. Musculoskeletal: No signs and/or symptoms reported regarding the musculoskeletal system. 01:10 Reassessment: No changes from previously documented assessment. Patient and/or family tr5 updated on plan of care and expected duration. Pain level reassessed. Patient denies pain at this time. 02:00 Reassessment: Patient appears in no apparent distress at this time. Patient and/or tr5 family updated on plan of care and expected duration. Pain level reassessed. 03:44 Reassessment: Patient and/or family updated on plan of care and expected duration. Pain tr5 level reassessed. Pt appears to be sleeping in bed. 04:37 Reassessment: No changes from previously documented assessment. Patient and/or family tr5 updated on plan of care and expected duration. Pain level reassessed. 05:01 Reassessment: Report given to Cris PHILIP at [facility]. tr5 Vital Signs: 00:06 BP 93 / 46; Pulse 96; Resp 18; Temp 98.6(TE); Pulse Ox 100% on R/A; tr5 01:09 BP 112 / 55; Pulse 99; Resp 18; Pulse Ox 100% on R/A; tr5 02:00 BP 95 / 56; Pulse 95; Resp 16; Pulse Ox 97% on R/A; tr5 03:00 BP 108 / 43; Pulse 89; Resp 17; Temp 98; Pulse Ox 96% ; tr5 03:53 BP 124 / 54; Pulse 80; Resp 16; Pulse Ox 99% on R/A; tr5 04:40 BP 151 / 63; Pulse 90; Resp 16; Pulse Ox 98% on R/A; tr5 05:54 BP 132 / 58; Pulse 94; Resp 18; Pulse Ox 99% on R/A; tr5 06:45 BP 128 / 60; Pulse 90; Resp 18; Pulse Ox 99% on R/A; tr5 ED Course: 04/20 23:52 Patient arrived in ED. ds1 23:54 Po Garland, RN is Primary Nurse. tr5 04/21 00:00 Triage completed. tr5 00:00 Bed in low position. Call light in reach. Side rails up X 1. tr5 00:00 Pulse ox on. NIBP on. tr5 00:06 Hay Wagoner MD is Attending Physician. gs 00:06 Arm band placed on. tr5 01:30 Initial lab(s) drawn, by me, sent to lab. Inserted saline lock: 20 gauge in right aa1 antecubital area, using aseptic technique. Blood collected. 01:55 X-ray completed. Portable x-ray completed in exam room. Patient tolerated procedure kw well. 01:59 XRAY Abdomen Acute Series In Process Unspecified. EDMS 02:43 CT Abd/Pelvis - Without Contrast In Process Unspecified. EDMS 05:45 Awaiting transportation. tr5 07:02 No provider procedures requiring assistance completed. IV discontinued. tr5 Administered Medications: No medications were administered Outcome: 04:32 Discharge ordered by . 07:01 Discharged to home ambulatory. tr5 07:01 Condition: stable 07:01 Discharge instructions given to patient. 07:02 Patient left the ED. tr5 Signatures: Dispatcher [employer] EDCT Vicenta Miller RN RN aa1 Kimberlee Story ds1 Renetta Patel Gregory, MD MD gs Rodriguez, Tommie, RN RN tr5 Corrections: (The following items were deleted from the chart) 02:37 01:10 Reassessment: No changes from previously documented assessment. Patient and/or tr5 family updated on plan of care and expected duration. Pain level reassessed. Patient is alert, oriented x 3, equal unlabored respirations, skin warm/dry/pink. tr5
--- NOTE | 2019-04-21 04:33 | EDPHYS ---
Physician Documentation [facility] Name: Nadir Mendez Age: 74 yrs Sex: Male : 1945 Arrival Date: 04/20/2019 Time: 23:52 Bed 17 Private MD: ED Physician Hay Wagoner HPI: 04/21 04:57 This 74 yrs old Male presents to ER via EMS with complaints of Constipation. 04:57 Onset: The symptoms/episode began/occurred 2 day(s) ago. Unable to obtain HPI due to gs baseline dementia. SENT BY CARE HOME, NO FEVER NO VOMITING. Historical: - Allergies: 00:06 No Known Allergies; tr5 - Home Meds: 00:06 acetaminophen-codeine 300-30 mg Oral tab 1 tab twice a day for Pain [Active]; aspirin tr5 81 mg Oral TbEC 1 tab once daily [Active]; carbidopa-levodopa 25-100 mg Oral tab 1 tab twice a day [Active]; amlodipine 10 mg tab [Active]; calcium acetate 667 mg oral tab [Active]; cilostazol 100 mg oral tab [Active]; clopidogrel 75 mg Oral tab 1 tab nightly [Active]; ferrous sulfate 325 mg (65 mg iron) Oral TbEC [Active]; folic acid 1 mg Oral tab [Active]; gentamicin 0.3 % Opht drop [Active]; Insulin Glargine Sub-Q 100 unit/mL [Active]; Lyrica 75 mg Oral 1 cap 2 times per day [Active]; metoprolol tartrate 25 mg Oral tab [Active]; midodrine 5 mg Oral tab 1 tabs every Tue, Nicole, Sat 30 mins prior to dialysis [Active]; simvastatin 40 mg Oral tab [Active]; promethazine 25 mg Oral tab [Active]; ranitidine HCl 75 mg oral tab [Active]; Zoloft 50 mg Oral tab [Active]; - PMHx: 00:06 Alzheimers; Anemia; Depression; Diabetes - NIDDM; ESRD; Dialysis; GERD; Hepatitis; tr5 Hyperlipidemia; Parkinson's; PVD; Renal Disease; Tues, Thurs, Sat; Ulcers; Pancreatitis; neuropathy; Hypertension; - Immunization history:: Adult Immunizations up to date. - Social history:: Smoking status: unknown. - Ebola Screening: : No symptoms or risks identified at this time. ROS: 04:57 Unable to obtain ROS due to baseline dementia. Exam: 04:57 Head/Face: Normocephalic, atraumatic. Eyes: Pupils equal round and reactive to light, gs extra-ocular motions intact. Lids and lashes normal. Conjunctiva and sclera are non-icteric and not injected. Cornea within normal limits. Periorbital areas with no swelling, redness, or edema. ENT: Nares patent. No nasal discharge, no septal abnormalities noted. Tympanic membranes are normal and external auditory canals are clear. Oropharynx with no redness, swelling, or masses, exudates, or evidence of obstruction, uvula midline. Mucous membranes moist. Neck: Trachea midline, no thyromegaly or masses palpated, and no cervical lymphadenopathy. Supple, full range of motion without nuchal rigidity, or vertebral point tenderness. No Meningismus. Chest/axilla: Normal chest wall appearance and motion. Nontender with no deformity. No lesions are appreciated. Cardiovascular: Regular rate and rhythm with a normal S1 and S2. No gallops, murmurs, or rubs. Normal PMI, no JVD. No pulse deficits. Respiratory: Lungs have equal breath sounds bilaterally, clear to auscultation and percussion. No rales, rhonchi or wheezes noted. No increased work of breathing, no retractions or nasal flaring. Back: No spinal tenderness. No costovertebral tenderness. Full range of motion. Skin: Warm, dry with normal turgor. Normal color with no rashes, no lesions, and no evidence of cellulitis. MS/ Extremity: Pulses equal, no cyanosis. Neurovascular intact. Full, normal range of motion. Neuro: Awake and alert, GCS 15, oriented to person, place, time, and situation. Cranial nerves II-XII grossly intact. Motor strength 5/5 in all extremities. Sensory grossly intact. Cerebellar exam normal. Normal gait. 04:57 Constitutional: The patient appears awake. 04:57 Abdomen/GI: Palpation: soft, Rectal exam: fecal impaction, that is severe, the exam is chaperoned by the nurse, FEEDING TUBE IN PLACE. 04:57 Skin: lesion(s), MULTIPLE SACRAL DECUBITI. Vital Signs: 00:06 BP 93 / 46; Pulse 96; Resp 18; Temp 98.6(TE); Pulse Ox 100% on R/A; tr5 01:09 BP 112 / 55; Pulse 99; Resp 18; Pulse Ox 100% on R/A; tr5 02:00 BP 95 / 56; Pulse 95; Resp 16; Pulse Ox 97% on R/A; tr5 03:00 BP 108 / 43; Pulse 89; Resp 17; Temp 98; Pulse Ox 96% ; tr5 03:53 BP 124 / 54; Pulse 80; Resp 16; Pulse Ox 99% on R/A; tr5 04:40 BP 151 / 63; Pulse 90; Resp 16; Pulse Ox 98% on R/A; tr5 05:54 BP 132 / 58; Pulse 94; Resp 18; Pulse Ox 99% on R/A; tr5 06:45 BP 128 / 60; Pulse 90; Resp 18; Pulse Ox 99% on R/A; tr5 Procedures: 04:57 Fecal disimpaction: digital disimpaction was performed, with a large amount of stool gs expressed. The patient tolerated the intervention well. MDM: 01:08 Patient medically screened. gs 04:57 Differential diagnosis: bowel obstruction, diverticulitis, gastritis, non-specific abd gs pain. Data reviewed: vital signs, nurses notes, lab test result(s), radiologic studies. Counseling: I had a detailed discussion with the patient and/or guardian regarding:. Response to treatment: the patient's symptoms have markedly improved after treatment. ED course: PT HAS NO FEVER, NO HYPOXIA COUGH OTHER SIGNS OF PNEUMONIA, FEEL FINDS ON CT ARE CHRONIC AND WILL MONITOR.. 04/21 01:10 Order name: CBC with Diff; Complete Time: 01:58 04/21 01:10 Order name: Basic Metabolic Panel; Complete Time: 01:58 gs 04/21 01:10 Order name: XRAY Abdomen Acute Series 04/21 01:59 Order name: CT Abd/Pelvis - Without Contrast gs Administered Medications: No medications were administered Disposition: 04/21/19 04:32 Discharged to Home. Impression: Fecal impaction. - Condition is Stable. - Discharge Instructions: Fecal Impaction. - Medication Reconciliation Form, Thank You Letter, Antibiotic Education, Prescription Opioid Use form. - Follow up: Private Physician; When: 2 - 3 days; Reason: Re-evaluation by your physician. Signatures: Dispatcher [employer] EDMS Hay Wagoner MD MD gs Dada, Po, RN RN tr5 Corrections: (The following items were deleted from the chart) 07:02 04:32 04/21/2019 04:32 Discharged to Home. Impression: Fecal impaction. Condition is tr5 Stable. Forms are Medication Reconciliation Form, Thank You Letter, Antibiotic Education, Prescription Opioid Use. Follow up: Private Physician; When: 2 - 3 days; Reason: Re-evaluation by your physician. gs
[2019-04-21 07:12] VITALS: TEMP 98
[2019-04-21 07:16] VITALS: O2SAT 99
[2019-04-21 07:17] VITALS: BP 128/60
--- NOTE | 2019-04-21 08:19 | RAD REPORT ---
EXAM DESCRIPTION: RAD - Abdomen Acute Series - 04/21/2019 1:56 am CLINICAL HISTORY: CONSTIPATION COMPARISON: Chest Single View dated 04/14/2019; Chest Single View dated 03/26/2019; Chest Single View d ated 03/10/2019; Chest Single View dated 03/08/2019; Abdomen Pelvis Wo Contrast dated 04/21/2019 FINDINGS: Mild bilateral interstitial lung opacities are present probably representing mild intersti tial pulmonary edema or interstitial pneumonia. Stenting is present in the left-sided venous system o f the upper extremity. Pigtail catheter is seen with its tip in the stomach. Moderate fecal retention is noted throughout th e colon. No pneumoperitoneum or bowel obstruction. IMPRESSION: Moderate stool retained in the colon. Interstitial lung opacities bilaterally likely representing pneumonia or pulmonary edema.
--- NOTE | 2019-04-21 10:26 | RAD REPORT ---
EXAM DESCRIPTION: CT ABDOMEN AND PELVIS WITHOUT CONTRAST CLINICAL HISTORY: ABD PAIN COMPARISON: 03/30/2018 TECHNIQUE: CT of the abdomen and pelvis without IV contrast. Evaluation of the solid organs and vasc ulature is suboptimal due to lack of IV contrast. DLP: 911.5 mGy-cm FINDINGS: Lung Bases: Bibasilar airspace opacities. Coronary artery atherosclerosis. Bones: Degenerative change of the spine. Abdomen: Liver: The liver has normal size and density. Gallbladder: No calcified gallstones. Spleen, Pancreas, and Adrenal Glands: The spleen, pancreas, and adrenal glands are unremarkable. Kidneys: Mild bilateral renal atrophy. Stable 0.3 cm obstructing calculus in the proximal right urete r. No hydronephrosis. Bilateral nonobstructing nephrolithiasis. Vasculature: Aortoiliac atherosclerosis. Stomach: Pigtail gastrostomy tube. Other: No free intraperitoneal air. No free fluid or lymphadenopathy. Pelvis: Bladder: Urinary bladder is unremarkable. Bowel: Large amount stool in the rectum. Mild wall thickening of the descending and sigmoid colon. Appendix: Normal appendix. Pelvis: Prostate is not enlarged. IMPRESSION: 1. Mild wall thickening of the descending and sigmoid colon. These findings could be see n with nonspecific colitis which may be of infectious or inflammatory etiology. 2. Large amount stool in the rectum. This could be seen with fecal impaction. 3. Nonobstructing 0.3 cm calculus in the proximal right ureter is unchanged. No hydronephrosis. Bilat eral nonobstructing nephrolithiasis. 4. Bibasilar airspace opacities concerning for bilateral pneumonic process. 5. Coronary artery atherosclerosis. This exam was performed according to our departmental dose-optimization program, which includes autom ated exposure control, adjustment of the mA and/or kV according to patient size and/or use of iterati ve reconstruction technique. Electronically signed by: Jamison Brink 04/21/2019 3:29 AM CDT Due to temporary technical issues with the PACS/Fluency reporting system, reports are being signed by the in house radiologist as a courtesy to ensure prompt reporting. The interpreting radiologist is f ully responsible for the content of the report.
== END 2019-04-21 07:02 | disposition home or self-care (01) ==
LOC: ER 23:44
DX: K56.41 Fecal impaction (principal); G30.9 Alzheimer's disease, unspecified; F02.80 Dementia in other diseases classified elsewhere, unspecified severity, without behavioral disturbance, psychotic disturbance, mood disturbance, and anxiety; G20 Parkinson's disease; D64.9 Anemia, unspecified; E11.22 Type 2 diabetes mellitus with diabetic chronic kidney disease; I12.0 Hypertensive chronic kidney disease with stage 5 chronic kidney disease or end stage renal disease; N18.6 End stage renal disease; Z99.2 Dependence on renal dialysis; E78.5 Hyperlipidemia, unspecified; Z79.82 Long term (current) use of aspirin; Z79.4 Long term (current) use of insulin
CPT/HCPCS: 36415; 74022; 74176; 80048; 85025; 99284